=== PATIENT | male | born 2005 | race Caucasian/White ===

== ENCOUNTER 2023-06-10 23:43 | Emergency (ER) | payer SELFPAY ==
[2023-06-10 23:46] VITALS: BP 135/77; PULSE 88; RESP 18; TEMP 36.6; O2SAT 97; BMI 22.0
--- NOTE | 2023-06-11 00:01 | CT_ITS ---
The [address] [address] Patient Name: CAMERON TERESA MRN: [id number] date: 2005 Sex: M Assigned Patient Location: Current Patient Location: .[facility] Accession/Order Number: [id number] Exam Date: 06/11/2023 00:23 Report Date: 06/11/2023 00:42 At the request of: ALAN CAN Procedure: CT head/brain wo con EXAMINATION: CT head/brain wo con HISTORY: head injury headache, nausea, dizziness. COMPARISON: None. TECHNIQUE: CT head without contrast. Dose reduction techniques were achieved by using: automated exposure control and/or adjustment of mA and /or kV according to patient size and/or use of iterative reconstruction technique. FINDINGS: The ventricles and sulci are within normal limits in size and configuration for age. There is no evidence for acute intracranial hemorrhage. There are no foci of abnormal parenchymal attenuation. There is no mass effect or midline shift. There are no abnormal extraaxial fluid collections. CT/CT head/brain wo con IMPRESSION: Negative for acute hemorrhage or acute intracranial process. Electronically authenticated by: DEVANG WESTON Date: 06/11/2023 00:42
--- NOTE | 2023-06-11 00:02 | ED_ITS ---
HPI - Head Injury General Chief complaint: Head Injury Stated complaint: HEAD INJURY Time Seen by Provider: 06/10/23 23:58 Source: patient Mode of arrival: walk-in Limitations: no limitations History of Present Illness HPI Narrative: states he was at work and a door closed striking him on the left eyebrow. complains of mild dizziness and mild nausea. took zofran before coming in and the nausea is improved but not completely resolved. no other injury. No visual complaint Related Data Home Medications Medication Instructions Recorded Confirmed cariprazine 1.5 mg capsule 1.5 mg PO DAILY 06/10/23 06/10/23 (Vraylar) venlafaxine 75 mg capsule,extended 225 mg PO DAILY 06/10/23 06/10/23 release 24 hr (Effexor XR) Allergies Allergy/AdvReac Type Severity Reaction Status Date / Time No Known Drug Allergies Allergy Verified 06/10/23 23:53 Review of Systems ROS Status of ROS 10 or more systems reviewed and unremark able except as noted in history and [facility] Smoking status: Current every day smoker Exam Constitutional Vital Signs, click to edit/add: Last Vital Signs Temp 98 F 06/10/23 23:46 Pulse 88 06/10/23 23:46 Resp 18 06/10/23 23:46 BP 135/77 06/10/23 23:46 Pulse Ox 97 06/10/23 23:46 O2 Del Method Room Air 06/10/23 23:46 Common normals: no apparent distress, average body habitus, oriented x3, no limitations, healthy appearing and alert HENMT Other: minor focal 4mm contusion left eyebrow. no lac Eye Common normals: PERRL, EOMs intact bilaterally and conjunctivae normal Respiratory Common normals: normal respiratory effort, no retractions and no use of accessory muscles Cardio Common normals: regular rate, regular rhythm, S1 normal heart sound and S2 normal heart sound Extremity Common normals: normal to inspection and full ROM Neuro Common normals: oriented x3, CN's II-XII intact bilaterally, moves all extremities and no focal motor deficits Psych Appearance: grossly normal Course Vital Signs Vital signs: Vital Signs Temperature 98 F 06/10/23 23:46 Pulse Rate 88 06/10/23 23:46 Respiratory Rate 18 06/10/23 23:46 Blood Pressure 135/77 06/10/23 23:46 Pulse Oximetry 97 06/10/23 23:46 Oxygen Delivery Method Room Air 06/10/23 23:46 Temperature 98 F 06/10/23 23:46 Pulse Rate 88 06/10/23 23:46 Respiratory Rate 18 06/10/23 23:46 Blood Pressure 135/77 06/10/23 23:46 Pulse Oximetry 97 06/10/23 23:46 Oxygen Delivery Method Room Air 06/10/23 23:46 MDM - Head Injury MDM Narrative Medical decision making narrative: patient presents after he was struck at his left eye brow by a door at work. Complained of nausea for which he took zofran before coming in. Exam with minor contusion left eyebrow. CT brain neg. Patient discharged home in good condition and diagnosed with minor head injury Discharge Plan Discharge Chief Complaint: Head Injury Clinical Impression: Closed head injury Patient Disposition: Home, Self-Care Prescriptions / Home Meds: No Action venlafaxine [Effexor XR] 75 mg capsule,extended release 24hr 225 mg PO DAILY Vraylar 1.5 mg capsule 1.5 mg PO DAILY Instructions: Head Injury (ED) Stand Alone Forms: Portal Instructions Referrals: Nayla Dorsey NP [Primary Care Provider] - 1 week
== END 2023-06-11 01:40 | disposition home or self-care (01) ==
PROVIDERS: Emergency Provider Internal Medicine; PCP Nurse Practitioner Family
DX: S09.8XXA Other specified injuries of head, initial encounter (principal); W20.8XXA Other cause of strike by thrown, projected or falling object, initial encounter; Z79.899 Other long term (current) drug therapy; F17.210 Nicotine dependence, cigarettes, uncomplicated
CPT/HCPCS: 70450; 99284

== ENCOUNTER 2024-01-17 14:51 | Emergency (ER) | payer OTHER, SELFPAY ==
[2024-01-17 14:56] VITALS: BP 156/90; PULSE 90; TEMP 36.9; O2SAT 99; BMI 22.0
--- NOTE | 2024-01-17 15:26 | ED_ITS ---
<Statement entered by Florinda Moreno MD - 01/18/24 06:59> This documentation has been reviewed and approved. HPI HPI - General Adult General Chief complaint: GI Bleed Stated complaint: BLOOD IN STOOL/ ABDOMINAL PAIN Time Seen by Provider: 01/17/24 15:09 Source: patient Mode of arrival: walk-in Limitations: no limitations History of Present Illness HPI narrative: 18-year-old male presents to the emergency department with complaint of bright red rectal bleeding. Had a lot yesterday, not as much today. Describes as bright red. States chronic history of abdominal problems including constipation. States he may be moves his bowels about once a week. Does have some mild, lower abdominal discomfort. Has had 2 bowel movements since yesterday. Denies any diarrhea. Denies any rectal plain. Has had history of hemorrhoid in the past, but states he has not felt like this is because of 1. Denies any abdominal surgeries. Quality:?As above Severity:?Mild Timing:?As above Context: Normal setting and activity? Modifying factors:?none Associated symptoms: As above Related Data Home Medications ?Medication ?Instructions ?Recorded ?Confirmed cariprazine 1.5 mg capsule 1.5 mg PO DAILY 06/10/23 06/10/23 (Vraylar) venlafaxine 75 mg capsule,extended 225 mg PO DAILY 06/10/23 06/10/23 release 24 hr (Effexor XR) Allergies Allergy/AdvReac Type Severity Reaction Status Date / Time No Known Drug Allergies Allergy Verified 01/17/24 14:56 Opioid HPI Opioid Management Most Recent Opioid Data: No Data to Display Review of Systems ROS Constitutional Denies: fever, chills or fatigue Cardiovascular Denies: chest pain, edema or shortness of breath with exertion Respiratory Denies: shortness of breath or cough Gastrointestinal Reports: abdominal pain, constipation (chronic) and blood in stool; Denies: nausea, vomiting, diarrhea or rectal pain Genitourinary Denies: painful urination or urinary frequency Neurological Denies: dizziness Endocrine Denies: fatigue PFSH PFSH Social History Smoking status: Current every day smoker Exam Constitutional Vital Signs, click to edit/add: Last Vital Signs Temp 98.5 F 01/17/24 14:56 Pulse 90 01/17/24 14:56 Resp 18 01/17/24 14:56 BP 156/90 H 01/17/24 14:56 Pulse Ox 99 01/17/24 14:56 O2 Del Method Room Air 01/17/24 14:56 Common normals: no apparent distress, oriented x3 and alert HENMT Common normals: normocephalic, head/scalp atraumatic and external nose normal Head and scalp: normocephalic and atraumatic Nose: external nose normal Respiratory Common normals: normal respiratory effort and clear to auscultation bilaterally Auscultation: clear to auscultation bilaterally Cardio Common normals: regular rate, regular rhythm and no murmurs Rate: regular rate Rhythm: regular rhythm GI Common normals: soft to palpation Inspection: normal to inspection Auscultation: normoactive bowel sounds Palpation: soft and tender (mild, no guarding) Details: LLQ and RLQ; no rebound tenderness present Rectal Exam - Male: visual inspection normal, normal sphincter tone and heme positive stool; no hemorrhoids and no fistula Other: Rectal examination performed under direct supervision of AGUILA Isaacs Extremity Common normals: normal to inspection Neuro Common normals: oriented x3, no focal motor deficits, no sensory deficits noted and gait normal Sensorium/orientation: alert Psych Common normals: thought process normal, cooperative and affect normal Thought process: normal thought process Course Vital Signs Vital signs: Vital Signs Temperature 98.5 F 01/17/24 14:56 Pulse Rate 90 01/17/24 14:56 Respiratory Rate 18 01/17/24 14:56 Blood Pressure 156/90 H 01/17/24 14:56 Pulse Oximetry 99 01/17/24 14:56 Oxygen Delivery Method Room Air 01/17/24 14:56 Temperature 98.5 F 01/17/24 14:56 Pulse Rate 90 01/17/24 14:56 Respiratory Rate 18 01/17/24 14:56 Blood Pressure 156/90 H 01/17/24 14:56 Pulse Oximetry 99 01/17/24 14:56 Oxygen Delivery Method Room Air 01/17/24 14:56 Medical Decision Making [facility] Narrative Medical decision making narrative: This is a pleasant 18-year-old male presents to the emergency department with concern about bright red blood in stool. Onset yesterday. States somewhat improved today. Has had some mild lower abdominal pain. Patient with chronic history of constipation. States he moves his bowels about once a week. On arrival, afebrile, vital signs are stable. Exam, nontoxic, well-appearing patient in no distress. Very slight tenderness to the right and left lower quadrant regions. On chaperoned rectal examination, no visual abnormalities noted including hemorrhoids. No gross bleeding coming from the rectum. No anal fissure. No appreciable stool was on glove just mucus, tested positive for blood. Labs reveal no leukocytosis, anemia, thrombocytopenia, electrolyte imbalance, renal impairment. Glucose 104. LFTs were a little elevated at 151 and 87. Alk phosphatase 105. Bilirubin was 0.5. No prior records in EMR Favor nonspecific rectal bleeding, nonspecific abdominal pain, chronic constipation Acute abdomen less likely based on history and physical examination Anemia less likely based on laboratory testing On reevaluation, patient states he is feeling better. Denies pain. Discussed with patient results, plan, and disposition. He is agreeable with plan. Disposition ? The patient was discharged. Plan: Patient will be discharged to home. Condition at time of disposition: stable He was given referral to gastroenterology as patient may need colonoscopy Advised to follow up with primary provider. Advised to return for any worsening and/or development of new, concerning signs or symptoms PLEASE NOTE: Portions of the medical record may have been produced using electronic web applications developer and may contain errors with respect to translation of words which may not have been identified prior to finalization of the chart. Lab Data Labs: Lab Results 01/17/24 01/17/24 Range/Units 15:45 16:44 WBC 5.7 (4.0-11.0) 10^3/uL RBC 5.47 (4.70-6.10) 10^6/uL Hgb 16.1 (14.0-18.0) g/dL Hct 49.3 (42.0-54.0) % MCV 90.1 (80.0-94.0) fL MCH 29.4 (25.9-34.0) pg MCHC 32.7 (29.9-35.2) g/dL RDW 12.2 (11.0-15.0) % Plt Count 207 (150-450) 10^3/uL MPV 10.7 (9.5-13.5) fL Neut % (Auto) 59.2 (43.0-75.0) % Lymph % (Auto) 28.0 (20.5-60.0) % [place] % (Auto) 10.2 (1.7-12.0) % Eos % (Auto) 1.8 (0.9-7.0) % Baso % (Auto) 0.4 (0.2-2.0) % Neut # (Auto) 3.4 (1.4-6.5) 10^3/uL Lymph # (Auto) 1.6 (1.2-3.8) 10^3/uL [place] # (Auto) 0.6 (0.3-0.8) 10^3/uL Eos # (Auto) 0.1 (0.0-0.7) 10^3/uL Baso # (Auto) 0.0 (0.0-0.1) 10^3/uL Abs Immat Gran (auto) 0.02 (0.00-0.03) 10^3/uL Imm/Tot Granulo (auto) 0.4 (0.0-0.5) % Sodium 144 (136-145) mmol/L Potassium 3.9 (3.5-5.1) mmol/L Chloride 104 (98-107) mmol/L Carbon Dioxide 31.2 (21.0-32.0) mmol/L Anion Gap 12.7 BUN 19.0 H (7.0-18.0) mg/dL Creatinine 1.23 (0.70-1.30) mg/dL Est GFR ( Amer) >60 (>=60) Est GFR (Non-Af Amer) >60 (>=60) BUN/Creatinine Ratio 15.4 Glucose 104 (74-106) mg/dL Calcium 9.3 (8.5-10.1) mg/dL Total Bilirubin 0.5 (0.2-1.0) mg/dL AST 151 H (15-37) U/L ALT 87 H (16-63) U/L Alkaline Phosphatase 105 (46-116) U/L Total Protein 7.8 (6.4-8.2) g/dL Albumin 4.4 (3.4-5.0) g/dL Globulin 3.4 g/dL Albumin/Globulin Ratio 1.3 Stool Occult Blood Positive A Discharge Plan Discharge Stand Alone Forms: Portal Instructions Chief Complaint: GI Bleed Clinical Impression: Bright red rectal bleeding, Nonspecific abdominal pain Patient Disposition: Home, Self-Care Time of Disposition Decision: 17:24 Condition: Good Mode of Transportation: Private Vehicle Prescriptions / Home Meds: No Action venlafaxine [Effexor XR] 75 mg capsule,extended release 24hr 225 mg PO DAILY Vraylar 1.5 mg capsule 1.5 mg PO DAILY Print Language: Chinese Instructions: Rectal Bleeding (ED) Referrals: Nate Taylor [Other] - 1 week OFELIA RUBIO [Physician] - 01/20/24 ([address]) Rik BOO [Physician] - 1 week Discharge Date/Time: 01/17/24 17:37
[2024-01-17] MEDS: 0.9 % SODIUM CHLORIDE 1,000 ML 999 ML IV (15:46)
[2024-01-17 16:01] LABS: Basophils Percent Auto 0.4 % (0.2-2.0); Eosinophils Absolute Auto 0.1 10^3/uL (0.0-0.7); Eosinophils Percent Auto 1.8 % (0.9-7.0); Hematocrit 49.3 % (42.0-54.0); Hemoglobin 16.1 g/dL (14.0-18.0); Immature Granulocytes Abs Auto 0.02 10^3/uL (0.00-0.03); Immature Granulocytes Pct Auto 0.4 % (0.0-0.5); Lymphocytes Absolute Auto 1.6 10^3/uL (1.2-3.8); Mean Corpuscular HGB Conc 32.7 g/dL (29.9-35.2); Mean Corpuscular Hemoglobin 29.4 pg (25.9-34.0); Mean Corpuscular Volume 90.1 fL (80.0-94.0); Mean Platelet Volume 10.7 fL (9.5-13.5); Monocytes Absolute Auto 0.6 10^3/uL (0.3-0.8); Monocytes Percent Auto 10.2 % (1.7-12.0); Neutrophils Absolute Auto 3.4 10^3/uL (1.4-6.5); Neutrophils Percent Auto 59.2 % (43.0-75.0); Platelet Count 207 10^3/uL (150-450); Red Blood Count 5.47 10^6/uL (4.70-6.10); Red Cell Distribution Width 12.2 % (11.0-15.0); White Blood Count 5.7 10^3/uL (4.0-11.0)
[2024-01-17 16:16] LABS: Alanine Aminotransferase 87 U/L (16-63); Albumin Globulin Ratio 1.3; Albumin Level 4.4 g/dL (3.4-5.0); Alkaline Phosphatase 105 U/L (46-116); Anion Gap 12.7; Aspartate Amino Transferase 151 U/L (15-37); BUN Creatinine Ratio 15.4; Bilirubin Total 0.5 mg/dL (0.2-1.0); Calcium 9.3 mg/dL (8.5-10.1); Carbon Dioxide 31.2 mmol/L (21.0-32.0); Chloride 104 mmol/L (98-107); Estimated GFR (African America >60 (>=60); Estimated GFR (Non-African Ame >60 (>=60); Globulin 3.4 g/dL; Glucose 104 mg/dL (74-106); Potassium 3.9 mmol/L (3.5-5.1); Sodium 144 mmol/L (136-145); Total Protein 7.8 g/dL (6.4-8.2)
[2024-01-17 17:08] LABS: Internal Control Within Normal Limits; Occult Blood Positive
== END 2024-01-17 17:37 | disposition home or self-care (01) ==
PROVIDERS: Physician Assistant; Emergency Provider Emergency Medicine; PCP Nurse Practitioner Family
DX: K62.5 Hemorrhage of anus and rectum (principal); R10.9 Unspecified abdominal pain; F17.200 Nicotine dependence, unspecified, uncomplicated
CPT/HCPCS: 36415; 80053; 85025; 99284; G0328

== ENCOUNTER 2024-04-03 18:24 | Emergency (ER) | payer OTHER, SELFPAY ==
[2024-04-03 18:33] VITALS: BP 174/96; PULSE 107; TEMP 37.2; O2SAT 97; BMI 24.2
--- OUTSIDE RECORDS SUMMARY | 2024-04-03 18:43 | XMS_ITS | CCD ---
Author Organization [facility] CliniSyde Care Team Providers Care Site Identification Specialist Name Role Phone Jaxson Starks Primary Care Provider Performer PROVIDER, UNKNOWN Attending Unavailable PATIENT, SELF Referring Unavailable PROVIDER, UNKNOWN Admitting Unavailable PROVIDER, UNKNOWN Admitting Unavailable PROVIDER, UNKNOWN Attending Unavailable PATIENT, SELF Referring Unavailable KOBE, RICKI Attending Unavailable KOBE, RICKI Primary Care Unavailable KOBE, RICKI Admitting Unavailable APOLINAR, EDWARD Primary Care Unavailable APOLINAR, EDWARD Admitting Unavailable KOBE, RICKI Consulting Unavailable APOLINAR, EDWARD Attending Unavailable PROVIDER, UNKNOWN Consulting Unavailable Jaxson Starks Unavailable Unavailable Marni Nolasco Unavailable Unava ilable Bess Muniz Unavailable Unavailable Linnea Zapata Unavailable Unavailable Unavailable PCP, Other Primary Care Physician PCP, OTHER Primary Care Unavailable Dr. CLARI OWEN Attending Unavailable PCP, OTHER Primary Care Unavailable Dr. Deo Hamm Attending Unavailable NO FAMILY, PHYSICIAN Primary Care Provider Unava ilable Laury, [facility]- Margarita Valera Emergency Provider OSEI Jarrett Attending Provider ALECIA Roach Emergency Provider JULIA Ornelas Emergency Provider DO Saqib Brantley Admit Provider DO Saqib Brantley Attending Provider [phone] MD Arnel Carlisle Other Provider ALECIA Shahid Other Provider [phone] MD Chandler Flood Other Provider MD Nicholas Frias Other Provider AGUILA Castro Other Provider Unavailable DO Ginger Cid Other Provider MD Regine Bingham Other Provider MD Kayli Iglesia Norton Other Provider MD Kellee Lambert Other Provider MD Ernie Jimenez Other Provider ALECIA Ramos Other Provider MD Elizabeth Serrato Other Provider MD Arnel Ibanez Najesteph Other Provider MD Lizette Vega Other Provider Shamika [facility] Sherrie Jolly Other Provider MD Soledad Perez Other Provider Benny, Ms. Linnea Gifford Referring Unavaila ble Iliano, Ms. Linnearoger Gifford Attending Unavaila ble Iliano, Ms. Linnea Ирина Primary Care Unavaila ble Iliano, Ms. Linnea Ирина Primary Care Unavaila ble Ana Laura Lacey Unavailable ALECIA Lacey Attending Provider Nazario Fine Unavailable Nayla Dorsey Unavailable NO FAMILY, PHYSICIAN Primary Care Provider Unava ALECIA Holder Emergency Provider NONE, XXXX Primary Care Physician Unavailab JOHN Copeland Attending Unavailable JOHN GILES Admitting Unavailable Kenroy Jackson Attending Unavailable JOHN GILES Attending Unavailable NO FAMILY, PHYSICIAN Primary Care Provider Unava ALECIA Holder Emergency Provider ALECIA Dorsey Attending Provider ALECIA Dorsey Primary Care Provider MD Nazario Shaw Jr Emergency Provider NO FAMILY, PHYSICIAN Primary Care Unavailable Enzo Roach Attending Unavailable Enzo Roach Admitting Unavailable Nayla Dorsey Admitting Unavailable NO FAMILY, PHYSICIAN Primary Care Unavailable Nayla Dorsey Attending Unavailable NO FAMILY, PHYSICIAN Primary Care Unavailable Ana Laura Lacey Attending Unavailable Ana Laura Lacey Admitting Unavailable Nayla Dorsey Primary Care Unavailable Nazario Shaw Jr Attending Unavailable Nazario Shaw Jr Admitting Unavailable Allergies Allergy Classification Reported Allergen(s) Allergy Type Date of Onset Reaction(s) Facility NEGATED: Highlighted row has been ruled out! (3 sources) natural latex rubber; Translations: [LATEX, NATURAL RUBBER] Drug allergy (disorder) [facility] NEGATED: Highlighted row has been ruled out! (3 sources) No IV Contrast Allergy.; Translations: [IV Dye, Iodine Containing] Drug allergy (disorder) S Medications Current Medications Medication Drug Class(es) Dates Sig (Normalized) Sig (Original) cariprazine 3 mg oral capsule (5 sources) Atypical Antipsychotic Start: 09-22-2023 take 1 capsule by mouth once daily Cariprazine (Vraylar) 3 mg capsule Active 3 MG PO Daily September 22, 2023 12:00am cephalexin 500 mg oral capsule (2 sources) Cephalosporin Antibacterial Start: 02-06-2023 take 1 capsule by mouth every twelve hours Cephalexin 500 MG 1 capsule Orally twice a day for 10 Jan, Active diphenhydrAMINE hydrochloride 50 mg oral tablet (1 source) Histamine-1 Receptor Antagonist Start: 03-20-2024 take 1 tablet by mouth once daily at bedtime Diphenhydramine Hcl (Benadryl Allergy) 50 mg tablet Active 50 MG PO Daily at bedtime March 20, 2024 12:00am Docusate (7 sources) Start: 03-20-2024 docusate sodium (Stool Softener) Active PO March 20, 2024 12:00am Start: 11-05-2021 take 2 tablets by [facility] every six hours as needed for constipation, then take 1 tablet by mouth once daily as needed for constipation Dulcolax Stool Softener 100 MG Oral Capsule TAKE 2 TABLETS NOW AND REPEAT IN 6 HOURS, THEN 1 TABLET DAILY NEEDED FOR CONSTIPATION Quantity: 1 Refills: 0 Ordered: 05-Nov-2021 Linnea Olsen Start : 05-Nov-2021 Active Start: 04-17-2021 Docusate Sodiu m 100 MG Oral Capsule Quantity: 56 Refills: 0 Ordered: 17-Apr-2021 DO Start : 17-Apr-2021 Active lamoTRIgine 150 mg oral tablet (1 source) Mood Stabilizer, Anti-epileptic Agent Start: 03-20-2024 take 1 tablet by mouth once daily Lamotrigine (Lamictal) 150 mg tablet Active 150 MG PO Daily March 20, 2024 12:00am melatonin 10 mg oral tablet (4 sources) Start: 03-20-2024 take 10 mg by mouth once daily at bedtime Melatonin Active 10 MG PO Daily at bedtime March 20, 2024 12:00am Start: 04-27-2021 Melatonin TR 1 0 MG Oral Tablet Extended Release Quantity: 28 Refills: 0 Ordered: 27-Apr-2021 DO Start : 27-Apr-2021 Active methylPREDNISolone 4 mg oral tablet (9 sources) Corticosteroid Start: 02-13-2023 methylPREDNISolone 4 MG as directed Orally take as directed for 6 days Jan, Active Multivitamin (Daily Multi-Vitamin) tablet (1 source) Start: 03-20-2024 take 1 tablet by mouth once daily Multivitamin (Daily Multi-Vitamin) tablet Active 1 TAB PO Daily March 20, 2024 12:00am nystatin [id number] unt/ml oral suspension (2 sources) Polyene Antifungal Start: 02-10-2023 take 4 mL by mouth four times daily Nystatin [id number] UNIT/ML 4 ml swish and swallow Mouth/Throat Four times a day for 10 days Jan, Active predniSONE 20 mg oral tablet (3 sources) Start: 03-07-2023 End: 03-12-2023 take 2 tablets by mouth once daily predniSONE 20 mg Tab 40 mg = 2 tab(s), Oral, Daily, X 5 day(s), # 10 tab(s), Refills(s) 0, Pharmacy: [facility], 198, cm, 03/07/23 16:53:00 EDT, Height/Length Dosing, 87.2, kg, 03/07/23 16:53:00 EDT, Weight Dosing Start Date: 03/07/23 Stop Date: 03/12/23 Status: Ordered Start: 02-06-2023 take 1 tablet by brenna th every twelve hours prednisone 20 MG 1 tablet Orally BID for 5 Jan, Active psyllium husk (Daily Fiber) (1 source) Start: 03-20-2024 psyllium husk (Daily Fiber) Active PO March 20, 2024 12:00am venlafaxine 75 mg oral tablet (20 sources) Serotonin and Norepinephrine Reuptake Inhibitor Start: 03-20-2024 take 75 mg by mouth once daily Venlafaxine Active 75 MG PO Daily March 20, 2024 12:00am Start: 11-17-2023 End: 03-20-2024 take 1 capsule by mouth once daily Venlafaxine Discontinued 0 .ROUTE .COMPLEX 90 November 17, 2023 1:58pm March 20, 2024 12:05pm Take 1 capsule by mouth once daily Start: 10-06-2023 End: 11-17-2023 take 37.5 mg by mouth once daily Venlafaxine Discontinued 37.5 MG PO Daily October 06, 2023 12:00am November 17, 2023 1:58pm Start: 09-21-2023 End: 10-06-2023 Venlafaxine (Effexor Xr) 75 mg capsule,extended release 24hr Discontinued 75 MG PO Daily September 21, 2023 12:00am October 06, 2023 11:21am in addition to 150mg to equal 225mg Start: 03-07-2023 Effexor XR Ora l, Daily, Refills(s) 0 Start Date: 03/07/23 Status: Ordered Start: 10-26-2022 End: 09-21-2023 take 1 capsule by mouth once daily Venlafaxine (Effexor Xr) 150 mg capsule,extended release 24hr Discontinued 225 MG PO Daily February 27, 2023 11:03am September 21, 2023 3:29pm Start: 09-27-2022 End: 10-13-2022 take 1 capsule by mouth once daily in the morning Venlafaxine (Effexor Xr) 75 mg Capsule,Extended Release 24hr Discontinued 75 MG PO Every morning September 27, 2022 12:00am October 13, 2022 4:03pm Start: 11-03-2021 take 1 capsule by mo [facility] every twenty-four hours Venlafaxine HCl ER 150 MG Oral Capsule Extended Release 24 Hour Quantity: 30 Refills: 0 Ordered: 03-Nov-2021 DO Start : 03-Nov-2021 Active Effexor Active Completed/Discontinued Medications Medication Drug Class(es) Dates Sig (Normalized) Sig (Original) acetaminophen 325 mg oral tablet (9 sources) Start: 10-22-2022 End: 10-23-2022 Acetaminophen (Tylenol) 325 mg Tablet Discontinued 325 MG PO Q65H October 22, 2022 12:00am October 23, 2022 12:56pm calcium polycarbophil 625 mg oral tablet (3 sources) Start: 04-15-2021 Fiber-Lax 625 MG Oral Tablet Quantity: 56 Refills: 0 Ordered: 15-Apr-2021 DO Start : 15-Apr-2021 Active cyclobenzaprine hydrochloride 10 mg oral tablet (17 sources) Muscle Relaxant Start: 02-27-2023 End: 03-20-2024 take 10 mg by mouth three times daily Cyclobenzaprine Discontinued 10 MG PO Three times daily February 27, 2023 12:00am March 20, 2024 12:05pm Start: 02-13-2023 take 1 tablet by [facility] twice daily as needed Cyclobenzaprine HCl 10 MG 1 tablet as needed Orally BID PRN for 10 days Jan, Active Start: 02-13-2023 take 1 tablet by [facility] every eight hours as needed Cyclobenzaprine HCl 10 MG 1 tablet as needed Orally every 8 hours for 5 days Jan, Active DULoxetine 20 mg delayed release oral capsule (17 sources) Serotonin and Norepinephrine Reuptake Inhibitor Start: 10-21-2022 End: 10-26-2022 take 20 mg by mouth once daily Duloxetine Discontinued 20 MG PO Daily October 23, 2022 12:00am October 26, 2022 11:22am hydrOXYzine pamoate 50 mg oral capsule (3 sources) Antihistamine Start: 11-03-2021 hydrOXYzine Pamoate 50 MG Oral Capsule Quantity: 60 Refills: 0 Ordered: 03-Nov-2021 DO Start : 03-Nov-2021 Active ibuprofen 800 mg oral tablet (7 sources) Nonsteroidal Anti-inflammatory Drug Start: 02-27-2023 End: 09-21-2023 take 800 mg by mouth every eight hours Ibuprofen Discontinued 800 MG PO Q8H February 27, 2023 11:14am September 21, 2023 3:28pm ketorolac tromethamine 10 mg oral tablet (19 sources) Nonsteroidal Anti-inflammatory Drug, Cyclooxygenase Inhibitor Start: 09-21-2023 End: 03-20-2024 take 10 mg by mouth twice daily Ketorolac Discontinued 10 MG PO Twice daily September 21, 2023 12:00am March 20, 2024 12:05pm maximum total duration of 5 days from all oral, intranasal, or parenteral formulations Start: 03-16-2023 take 1 tablet by brenna th twice daily as needed Toradol 10mg 1 tab prn orally bid for 14 days Feb, Active Start: 02-27-2023 End: 09-21-2023 take 10 mg by mouth three times daily Ketorolac Discontinued 10 MG PO Three times daily 10 February 27, 2023 12:00am September 21, 2023 3:28pm LORazepam 1 mg oral tablet (6 sources) Benzodiazepine Start: 10-31-2023 End: 03-20-2024 take 1 mg by mouth once daily Lorazepam Discontinued 1 MG PO Daily 15 November 09, 2023 10:55am March 20, 2024 12:05pm lurasidone hydrochloride 40 mg oral tablet (20 sources) Atypical Antipsychotic Start: 09-21-2023 End: 09-22-2023 take 40 mg by mouth once daily Lurasidone Discontinued 40 MG PO Daily September 21, 2023 12:00am September 22, 2023 2:31pm Start: 03-07-2023 Latuda Oral, D aily, Refills(s) 0 Start Date: 03/07/23 Status: Ordered Start: 02-27-2023 End: 09-21-2023 Lurasidone Discontinued MG T ABLET February 27, 2023 12:00am September 21, 2023 3:28pm Start: 02-27-2023 Lurasidone Act ramakrishna MG TABLET February 26, 2023 11:00pm Start: 02-27-2023 Lurasidone Act ramakrishna MG TABLET February 27, 2023 12:00am take 1 tablet by brenna th every twenty-four hours Latuda 40 MG 1 tablet in the evening with food Orally Once a day Active take 1 tablet by brenna th every twenty-four hours Latuda 20 MG 1 tablet in the evening with food Orally Once a day Active magnesium citrate 58.2 mg/ml oral solution (3 sources) Start: 11-05-2021 Magnesium Citrate 1.745 GM/30ML Oral Solution DRINK 1/2 BOTTLE, THEN 4 HOURS LATER FINISH BOTTLE Quantity: 1 Refills: 0 Ordered: 05-Nov-2021 Linnea Olsen Start : 05-Nov-2021 Active naproxen 500 mg oral tablet (17 sources) Nonsteroidal Anti-inflammatory Drug Start: 10-22-2022 End: 10-26-2022 take 500 mg by mouth twice daily at mealtime Naproxen Discontinued 500 MG PO Twice daily with meals October 23, 2022 12:00am October 26, 2022 11:22am 24 hr nicotine 0.875 mg/hr transdermal system (8 sources) Cholinergic Nicotinic Agonist Start: 10-26-2022 End: 02-27-2023 Nicotine Discontinued 1 EACH TRANSDERML Daily October 26, 2022 12:00am February 27, 2023 11:04am ofloxacin 3 mg/ml otic solution (10 sources) Quinolone Antimicrobial Start: 10-13-2022 End: 10-21-2022 Ofloxacin Discontinued 5 DROPS EAR-RIGHT Twice daily 10 October 13, 2022 12:00am October 21, 2022 11:01pm traZODone hydrochloride 50 mg oral tablet (8 sources) Serotonin Reuptake Inhibitor Start: 10-26-2022 End: 02-27-2023 take 50 mg by mouth once daily at bedtime Trazodone Discontinued 50 MG PO Daily at bedtime October 26, 2022 12:00am February 27, 2023 11:04am Problems Active Problems Problem Classification Problem Date Documented Da te Episodic/Chronic Abdominal pain (12 sources) Abdominal pain; Translations: [Bilateral pain of inguinal region] Onset: 3 Resolved: 6 02-26-2014 Episodic Anxiety disorders (20 sources) Anxiety disorder; Translations: [Anxiety disorder, unspecified] Onset: 1 04-10-2020 Chronic Complications of surgical procedures or medical care (12 sources) Drug therapy finding; Translations: [Unspecified adverse effect of drug or medicament, initial encounter] 09-27-2022 Episodic Conditions associated with dizziness or vertigo (11 sources) Dizziness; Translations: [Dizziness and giddiness] 09-27-2022 Episodic Disorders of teeth and jaw (20 sources) Arthralgia of temporomandibular joint; Translations: [Arthralgia of temporomandibular joint, unspecified side] 02-27-2023 Episodic Esophageal disorders (1 source) Gastroesophageal reflux disease; Translations: [Gastro-esophageal reflux disease without esophagitis] 03-20-2024 Chronic Gastrointestinal hemorrhage (2 sources) Melena; Translations: [Rectal hemorrhage] Onset: 3 03-20-2024 Episodic Headache; including migraine (1 source) Headache; including migraine; Translations: [Headache, unspecified] Onset: 3 Lymphadenitis (1 source) Enlarged lymph nodes, unspecified Episodic Mood disorders (20 sources) Major depressive disorder; Translations: [Major depressive disorder, recurrent, mild] Onset: 1 04-10-2020 Chronic Nausea and vomiting (1 source) Nausea; Translations: [Nausea] Onset: 3 Episodic Other connective tissue disease (1 source) Musculoskeletal symptom; Translations: [Other symptoms and signs involving the musculoskeletal system] Onset: 3 Episodic Other ear and sense organ disorders (10 sources) Otitis externa; Translations: [Unspecified otitis externa, unspecified ear] 10-13-2022 Chronic Other gastrointestinal disorders (3 sources) Chronic constipation; Translations: [Constipation, unspecified] Episodic Other gastrointestinal disorders (1 source) Other constipation; Translations: [Other constipation] Onset: 3 Episodic Other hereditary and degenerative nervous system conditions (3 sources) Restless legs; Translations: [Restless legs syndrome] 10-06-2023 Chronic Other hereditary and degenerative nervous system conditions (2 sources) Restless legs syndrome; Translations: [Restless legs syndrome (RLS)] 10-06-2023 Chronic Other nutritional; endocrine; and metabolic disorders (2 sources) Excessive thirst; Translations: [Polydipsia] Episodic Other nutritional; endocrine; and metabolic disorders (1 source) Polydipsia Episodic Other screening for suspected conditions (not mental disorders or infectious disease) (10 sources) Electrocardiogram abnormal; Translations: [Abnormal electrocardiogram [ECG] [EKG]] 10-23-2022 Episodic Other upper respiratory disease (1 source) Other specified disorders of nose and nasal sinuses Episodic Poisoning by other medications and drugs (16 sources) Intentional drug overdose; Translations: [Intentional Drug Overdose] 07-02-2019 Episodic Poisoning by psychotropic agents (3 sources) Benzodiazepine overdose; Translations: [Benzodiazepine Overdose] 03-26-2020 Episodic Residual codes; unclassified (1 source) Insomnia; Translations: [Insomnia, unspecified] 03-20-2024 Episodic Residual codes; unclassified (1 source) Insomnia, unspecified; Translations: [Insomnia, unspecified] 03-20-2024 Episodic Screening and history of mental health and substance abuse codes (1 source) Personal history of other mental and behavioral disorders; Translations: [Personal history of other mental and behavioral disorders] Onset: 4 Episodic Sprains and strains (1 source) Injury of muscle and tendon at neck level; Translations: [Strain of muscle, fascia and tendon at neck level, initial encounter] Onset: 3 Episodic Substance-related disorders (20 sources) Polysubstance abuse ; 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] Onset: 2 03-27-2020 Chronic Suicide and intentional self-inflicted injury (3 sources) Drug overdose - suicide; Translations: [Drug Overdose - Suicide] 03-26-2020 Unclassified (1 source) Contact with and (suspected) exposure to COVID-19; Translations: [Contact with and (suspected) exposure to COVID-19] Onset: 2 Unclassified (1 source) Personal history of suicidal behavior; Translations: [Personal history of suicidal behavior] Onset: 2 Unclassified (1 source) Poisoning by fentanyl or fentanyl analogs, accidental (unintentional), initial encounter; Translations: [Poisoning by fentanyl or fentanyl analogs, accidental (unintentional), initial encounter] Onset: 4 Past or Other Problems Problem Classification Problem Date Documented Da te Episodic/Chronic Inflammation; infection of eye (except that caused by tuberculosis or sexually transmitteddisease) (4 sources) External hordeolum; Translations: [Hordeolum externum] Resolved: 2 Episodic Other gastrointestinal disorders (4 sources) H/O: gastrointestinal disease; Translations: [Personal history of other diseases of digestive system] Resolved: 6 Episodic Other lower respiratory disease (4 sources) H/O: respiratory disease; Translations: [Personal history of other diseases of respiratory system] Resolved: 6 Episodic Other lower respiratory disease (4 sources) Dyspnea on exertion; Translations: [Other respiratory abnormalities] Resolved: 6 Episodic Other nutritional; endocrine; and metabolic disorders (1 source) Polydipsia; Translations: [Polydipsia] Onset: 3 Episodic Other upper respiratory infections (6 sources) Sore throat symptom; Translations: [Acute pharyngitis] Onset: 3 Resolved: 6 Episodic NEGATED: Highlighted row has not occurred!Residual codes; unclassified (1 source) Disease Episodic Results Test Name Value Interpretation Reference Range Facility Basophils Auto (Bld) [#/Vol] on 01-17-2024 Basophils (Bld) [#/Vol] 0.0 10 3/uL 0.0-0.1 [facility] Basophils/100 WBC Auto (Bld) on 01-17-2024 Basophils/100 WBC (Bld) 0.4 % 0.2-2.0 [facility] Eosinophils/100 WBC Auto (Bl d)on 01-17-2024 Eosinophils/100 WBC (Bld) 1.8 % 0.9-7.0 [facility] Erythrocyte distribution wid th Auto (RBC) [Ratio]on 01-17-2024 Erythrocyte distribution width (RBC) [Ratio] 12.2 % 11.0-15.0 [facility] Estimated glomerular filtrat ion rate (GFR) non- Americanon 01-17-2024 GFR/1.73 sq M.predicted among non-blacks MDRD (S/P/Bld) [Vol rate/Area] mL/min/{1.73_m2} >=60 [facility] Globulin Calc (S) [Mass/Vol] on 01-17-2024 Globulin (S) [Mass/Vol] 3.4 g/dL [facility] Hematocrit Auto (Bld) [Volum e fraction]on 01-17-2024 Hematocrit (Bld) [Volume fraction] 49.3 % 42.0-54.0 [facility] Hemoglobin [Mass/volume] in Bloodon 01-17-2024 Hemoglobin (Bld) [Mass/Vol] 16.1 g/dL 14.0-18.0 [facility] Hemoglobin.gastrointestinal [Presence] in Stoolon 01-17-2024 Hemoglobin.gastrointest inal Ql (Stl) Positive Abnormal [facility] Laboratory - Chemistry and C hemistry - challengeon 01-17-2024 Albumin [Mass/Vol] 4.4 g/dL 3.4-5.0 [facility] ALP [Catalytic activity/Vol] 105 U/L 46-116 [facility] ALT [Catalytic activity/Vol] 87 U/L High 16-63 [facility] AST [Catalytic activity/Vol] 151 U/L High 15-37 [facility] Bilirubin [Mass/Vol] 0.5 mg/dL 0.2-1.0 [facility] Calcium [Mass/Vol] 9.3 mg/dL 8.5-10.1 [facility] Chloride [Moles/Vol] 104 mmol/L 98-107 [facility] CO2 [Moles/Vol] 31.2 mmol/L 21.0-32.0 [facility] Creatinine [Mass/Vol] 1.23 mg/dL 0.70-1.30 [facility] GFR/1.73 sq M.predicted MDRD (S/P/Bld) [Vol rate/Area] mL/min/{1.73_m2} >=60 [facility] Glucose [Mass/Vol] 104 mg/dL 74-106 [facility] Potassium [Moles/Vol] 3.9 mmol/L 3.5-5.1 [facility] Protein [Mass/Vol] 7.8 g/dL 6.4-8.2 [facility] Sodium [Moles/Vol] 144 mmol/L 136-145 [facility] Urea nitrogen [Mass/Vol] 19.0 mg/dL High 7.0-18.0 [facility] Urea nitrogen/Creatinine [Mass ratio] 15.4 mg/mg [facility] Laboratory - Hematology and Cell countson 01-17-2024 Immature granulocytes/100 WBC (Bld) 0.4 % 0.0-0.5 [facility] Leukocytes [#/volume] correc jayleen for nucleated erythrocytes in Blood by Automated counon 01-17-2024 WBC corrected for nucl RBC Auto (Bld) [#/Vol] 5.7 10 3/uL 4.0-11.0 [facility] Lymphocytes Auto (Bld) [#/Vo l]on 01-17-2024 Lymphocytes (Bld) [#/Vol] 1.6 10 3/uL 1.2-3.8 [facility] Lymphocytes/100 WBC Auto (Bl d)on 01-17-2024 Lymphocytes/100 WBC (Bld) 28.0 % 20.5-60.0 [facility] MCH Auto (RBC) [Entitic mass ]on 01-17-2024 MCH (RBC) [Entitic mass] 29.4 pg 25.9-34.0 [facility] MCHC Auto (RBC) [Mass/Vol]on 01-17-2024 MCHC (RBC) [Mass/Vol] 32.7 g/dL 29.9-35.2 [facility] MCV Auto (RBC) [Entitic vol] on 01-17-2024 MCV (RBC) [Entitic vol] 90.1 fL 80.0-94.0 [facility] Monocytes Auto (Bld) [#/Vol] on 01-17-2024 Monocytes (Bld) [#/Vol] 0.6 10 3/uL 0.3-0.8 [facility] Monocytes/100 WBC Auto (Bld) on 01-17-2024 Monocytes/100 WBC (Bld) 10.2 % 1.7-12.0 [facility] Neutrophils Auto (Bld) [#/Vo l]on 01-17-2024 Neutrophils (Bld) [#/Vol] 3.4 10 3/uL 1.4-6.5 [facility] Neutrophils/100 WBC Auto (Bl d)on 01-17-2024 Neutrophils/100 WBC (Bld) 59.2 % 43.0-75.0 [facility] No Panel Informationon 01-16 Eosinophils # (Auto) 0.1 10 3/uL 0.0-0.7 [facility] Immature Granulocyte # (Auto) 0.02 10 3/uL 0.00-0.03 [facility] Platelet mean volume Auto (B ld) [Entitic vol]on 01-17-2024 Platelet mean volume (Bld) [Entitic vol] 10.7 fL 9.5-13.5 [facility] Platelets Auto (Bld) [#/Vol] on 01-17-2024 Platelets (Bld) [#/Vol] 207 10 3/uL 150-450 [facility] RBC Auto (Bld) [#/Vol]on RBC (Bld) [#/Vol] 5.47 10 6/uL 4.70-6.10 [facility] Serum or plasma albumin/glob ulin mass ratioon 01-17-2024 Albumin/Globulin [Mass ratio] 1.3 {ratio} [facility] Serum or plasma anion gap de terminationon 01-17-2024 Anion gap [Moles/Vol] 12.7 mmol/L [facility] ECG 12 lead ECGon 11-14-2023 ECG 12 lead ECG [facility] [place] [address] Electrocardiograph Report Signed Patient: Cameron Teresa MR#: [id number] : 2005 Acct:[id number] Age/Sex: 18 / M ADM Date: 11/14/23 Loc: ER Room: Type: [facility] ER Attending Dr: Ordering Provider: Nazario Shaw Jr, MD Date of Service: 11/14/23 ECG/ECG 12 lead ECG: od Copies to: Test Reason : Blood Pressure : 141/078 mmHG Vent. Rate : 091 BPM Atrial Rate : 091 BPM P-R Int : 154 ms QRS Dur : 096 ms QT Int : 344 ms P-R-T Axes : 066 098 069 degrees QTc Int : 423 ms Normal sinus rhythm Rightward axis Borderline ECG Confirmed by Sophie Crandall ([id number]) on 11/15/2023 4:41:42 PM Referred By: Electronically Signed By:Sophie Crandall Transcribed By: MUS Signed By Sophie Crandall MD 4 1641 Normal [facility] XR chest 1V portableon 11-13 XR chest 1V portable [facility] Main [place] [address] [id number] XRay Report Signed Patient: Cameron Teresa MR#: [id number] : 2005 Acct:[id number] Age/Sex: 18 / M ADM Date: 11/14/23 Loc: ER Room: Type: [facility] ER Attending Dr: Copies to: Nazario Shaw Jr, MD Ordering Provider: Nazario Shaw Jr, MD Date of Service: 11/14/23 XR/XR chest 1V portable: Overdose SINGLE VIEW CHEST CLINICAL HISTORY: Overdose. COMPARISON: None FINDINGS: Heart normal in size. Lungs are clear. No free air. XR/XR chest 1V portable IMPRESSION: NO ACUTE FINDINGS Impression dictated by: Azeem Sanchez Jr., D.OJorge11/14/2023 9:53 AM Dictation Location: [facility]12 Transcribed By: [facility] 11/14/23 0953 Dictated By: Azeem Sanchez Jr, DO 11/14/23 0953 Signed By: 11/14/23 0953 Normal [facility] Alanine aminotransferase [En zymatic activity/volume] in Serum or PlasmaOrdered By: Nayla Dorsey on 05-17-2023 ALT [Catalytic activity/Vol] 19 U/L Normal 7-52 [facility] Comment on above: Order Comment: Reaso n for Exam Polydipsia Performed By: #### C MP #### [address] Albumin [Mass/volume] in Ser um or Plasma by Bromocresol green (BCG) dye binding methoOrdered By: Nayla Dorsey on 05-17-2023 Albumin BCG dye [Mass/Vol] 5.0 g/dL 3.5-5.7 [facility] Alkaline phosphatase [Enzyma tic activity/volume] in Serum or PlasmaOrdered By: Nayla Dorsey on 05-17-2023 ALP [Catalytic activity/Vol] 85 U/L Normal 34-104 [facility] Comment on above: Order Comment: Reaso n for Exam Polydipsia Result Comment: PERF ORMED BY: [place] [address] PATHOLOGIST LEAD INFRASTRUCTURE ARCHITECT ANH SPARKS M.D. Performed By: #### C MP #### [address] Aspartate aminotransferase [ Enzymatic activity/volume] in Serum or PlasmaOrdered By: Nayla Dorsey on 05-17-2023 AST [Catalytic activity/Vol] 18 U/L Normal 13-39 [facility] Comment on above: Order Comment: Reaso n for Exam Polydipsia Performed By: #### C MP #### [address] Bilirubin.total [Mass/volume ] in Serum or PlasmaOrdered By: Nayla Dorsey on 05-17-2023 Bilirubin [Mass/Vol] 0.6 mg/dL Normal 0.3-1.0 [facility] Comment on above: Order Comment: Reaso n for Exam Polydipsia Performed By: #### C MP #### [address] Calcium [Mass/volume] in Ser um or PlasmaOrdered By: Nayla Dorsey on 05-17-2023 Calcium [Mass/Vol] 10.1 mg/dL Normal 8.6-10.3 [facility] Comment on above: Order Comment: Reaso n for Exam Polydipsia Performed By: #### C MP #### [place] [address] [place] Carbon dioxide, total [Moles /volume] in Serum or PlasmaOrdered By: Nayla Dorsey on 05-17-2023 CO2 [Moles/Vol] 29.1 mmol/L Normal 21.0-31.0 [facility] Comment on above: Order Comment: Reaso n for Exam Polydipsia Performed By: #### C MP #### [address] [place] [address] [place] Chloride [Moles/volume] in S laura or PlasmaOrdered By: Nayla Dorsey on 05-17-2023 Chloride [Moles/Vol] 104 mmol/L Normal 98-107 [facility] Comment on above: Order Comment: Reaso n for Exam Polydipsia Performed By: #### C MP #### [address] Comprehensive Metabolic Pane aleks 05-17-2023 Albumin [Mass/Vol] 5.0 g/dL Normal 3.5-5.7 [facility] Comment on above: Order Comment: Reaso n for Exam Polydipsia Performed By: #### C MP #### [place] [address] [place] GFR/1.73 sq M.predicted MDRD (S/P/Bld) [Vol rate/Area] mL/min/{1.73_m2} Normal [facility] Comment on above: Order Comment: Reaso n for Exam Polydipsia Performed By: #### C MP #### [address] Creatinine [Mass/volume] in Serum or PlasmaOrdered By: Nayla Dorsey on 05-17-2023 Creatinine [Mass/Vol] 1.21 mg/dL Normal 0.70-1.30 [facility] Comment on above: Order Comment: Reaso n for Exam Polydipsia Performed By: #### C MP #### [place] [address] [place] Glucose [Mass/volume] in Ser um or PlasmaOrdered By: Nayla Dorsey on 05-17-2023 Glucose [Mass/Vol] 96 mg/dL Normal 70-100 [facility] Comment on above: ADA recommended refe rence rangeRandom Glucose Reference Range is dependent on time and content of last meal. Glucose of more than 200 mg/dL in a nonstressed, ambulatory subject supports the diagnosis of Diabetes Mellitus. Order Comment: Reaso n for Exam Polydipsia Result Comment: [place] om Glucose Reference Range is dependent on time and content of last meal. Glucose of more than 200 mg/dL in a nonstressed, ambulatory subject supports the diagnosis of Diabetes Mellitus. ADA recommended reference range Performed By: #### C MP #### [address] No Panel InformationOrdered By: Nayla Dorsey on 05-17-2023 Estimated GFR (CKD-EPI) > 60.0 mL/Min [facility] Creatinine Clearance (Chem N/A [facility] Potassium [Moles/volume] in Serum or PlasmaOrdered By: Nayla Dorsey on 05-17-2023 Potassium [Moles/Vol] 4.9 mmol/L Normal 3.5-5.1 [facility] Comment on above: Order Comment: Reaso n for Exam Polydipsia Performed By: #### C MP #### [address] Protein [Mass/volume] in Ser um or PlasmaOrdered By: Nayla Dorsey on 05-17-2023 Protein [Mass/Vol] 7.6 g/dL Normal 6.4-8.9 [facility] Comment on above: Order Comment: Reaso n for Exam Polydipsia Performed By: #### C MP #### [address] Serum globulin measurement b y calculation (mass/volume)Ordered By: Nayla Dorsey on 05-17-2023 Globulin (S) [Mass/Vol] 2.6 g/dL Normal [facility] Comment on above: Order Comment: Reaso n for Exam Polydipsia Performed By: #### C MP #### [address] Serum or plasma albumin/glob ulin mass ratioOrdered By: Nayla Dorsey on 05-17-2023 Albumin/Globulin [Mass ratio] 1.9 {ratio} Normal [facility] Comment on above: Order Comment: Reaso n for Exam Polydipsia Performed By: #### C MP #### [address] Serum or plasma anion gap de terminationOrdered By: Nayla Dorsey on 05-17-2023 Anion gap [Moles/Vol] 12.8 mmol/L Normal 6.0-15.0 [facility] Comment on above: Order Comment: Reaso n for Exam Polydipsia Performed By: #### C MP #### [facility] [address] [place] [address] [place] Sodium [Moles/volume] in Ser um or PlasmaOrdered By: Nayla Dorsey on 05-17-2023 Sodium [Moles/Vol] 141 mmol/L Normal 136-145 [facility] Comment on above: Order Comment: Reaso n for Exam Polydipsia Performed By: #### C MP #### [facility] [address] [id number] [place] Urea nitrogen [Mass/volume] in Serum or PlasmaOrdered By: Nayla [place] on 05-17-2023 Urea nitrogen [Mass/Vol] 15 mg/dL Normal 7-25 [facility] Comment on above: Order Comment: Reaso n for Exam Polydipsia Performed By: #### C MP #### [facility] [address] [place] [address] [place] C Urineon 04-06-2023 Bacteria identified Cx Nom (U) Microbiology PROCEDURE: Urine Culture [R1] SOURCE: U CleanCatch BODY SITE: COLLECTED DATE/TIME: 04/04/2023 10:44 EDT RECEIVED DATE/TIME: 04/04/2023 11:38 EDT START DATE/TIME: 04/04/2023 11:38 EDT FREE TEXT SOURCE: JAYDEN DUMONT, JOHN GILES PA-C, JOHN FINAL REPORTS Final Report [] Verified Date/Time: 04/06/2023 11:03 EDT 700 cfu/ml Mixed skin contaminants Performing Locations R1: [facility] [address] [place] [address], [phone]- , [place], Normal [facility] Comment on above: Performed By: #### 2 [id number] #### [facility] [address] [place] [id number] Family Medicine Office/Clini c Noteon 04-04-2023 Family Medicine Office/Clinic Note Chief Complaint EST sore throat, sores on tongue, headache, fever, congestion, dysuria, frequency HPI Staff Cameron, 17 yo male here today with sores on tongue, fever, bodyaches Symptoms began yesterday Pt has cold sweats, sore throat, sores on tongue, fever, bodyaches, headache Pt states he had thrush 1 mth ago, thinks it might be back-finished nystatin Pt has taken benadryl, ibuprofen Pt is also having dysuria, frequency History of Present Illness Reviewed and agree with above documented HPI by medical transcription radiology. Portions of this record may have been created with voice recognition artificial intelligence software, specifically [employer], [employer] and or [employer]. Substitutions may have occurred due to the inherent limitations of voice recognition and artificial intelligence software. Patient is a 17-year-old male who presented to [facility], for sore throat, possible thrush, patient states symptoms started 2 days ago, states he has been around people was positive for strep, and also has been around people has had pneumonia, patient states he has not been coughing, been able to eat and drink, has some discomfort with swallowing, but no difficulty swallowing. Patient states he did have thrush about 2 months ago, possibly did not use the medication correctly. He is not concerned about being exposed to COVID-19, but is concerned about having strep pharyngitis. Patient states been having fevers, and body aches, the symptoms started yesterday, has been having chills, and headaches, has been taking [id number] Benadryl, and ibuprofen, patient states he has been having urgency frequency, states started yesterday, has been passing a small amount of urine, states he does not empty his bladder, patient states he is not concerned about any sexually transmitted diseases. Patient denies any nausea vomiting, worsening headache of his life, dizziness, worsening sore throat, worsening cough, productive cough, chest pain, shortness of breath, abdominal pain, flank pain, or lumbar back pain. Review of Systems PHQ Score Initial Depression Screen Score: 0 Physical Exam Vitals & Measurements T: 36.8 ?C(Oral) HR: 116(Peripheral) BP: 118/68 SpO2: 99% HT: 78 in HT: 197 cm WT: 86 kg WT: 189.2 lb BMI: 22.16 General: Well developed, well nourished, in no acute distress, patient appears ill but not septic, no respiratory disorders noted. Patient answers questions appropriately and in complete sentences, and follows commands appropriately. Head: Normocephalic/atraum atic, no upper respiratory infections noted. Eyes: Pupils equal, round, and reactive to light. Conjunctivae and sclerae normal, Ears: Bilateral TMs Nose: No deformity, discharge, inflammation, or lesions Mouth: Mucous membranes moist possible thrush, no ulcerations, lesions are noted. Posterior pharynx without lesions or exudates. Neck: Neck supple. No masses or palpable cervical nodes. Trachea midline. Lungs: Normal respiratory effort and clear to auscultation throughout, no wheezing, no rales, crackles, or decreased breath sounds noted on examination. Cardio: regular rate and rhythm, no murmur no chest wall tenderness. Abdomen: Soft, nondistended, nontender, no rebound or guarding, normal bowel sounds, no left or right CVA tenderness, suprapubic pressure, or lumbar back pain on examination. Extremity: Patient is able move all 4 extremities equally well no pain or weakness. Patient is neurovascular intact. Neurologic: Grossly normal Skin: Skin is intact skin abrasions, rashes, or ecchymosis. Lymph Nodes: no lad Mental Status: alert, active Assessment/Plan Discussed with patient negative strep throat result, urinalysis within normal limits. 17-year-old male presented to [facility], for oral thrush, and dysuria, symptoms of dysuria started few days ago, patient has a history ongoing oral thrush, has not taken his nystatin, correctly, given new prescriptions for nystatin today, patient prefers to wait for his urine culture results before treatment, ducted to drink plenty of water, given work excuse note, and patient agree with plan. 1. Oral thrush (B37.0: Candidal stomatitis) See above Ordered: nystatin, 600,000 unit(s) = 6 mL, Oral, q6hr, X 10 day(s), # 240 mL, Refills(s) 0, Pharmacy: [facility], 197, cm, 04/04/23 9:39:00 EDT, Height/Length Dosing, 86, kg, 04/04/23 9:39:00 EDT, Weight Dosing Group A Strep by PCR 2. Dysuria (R30.0: Dysuria) Above Ordered: Urnls Dip Stick Non-Auto w/o Micrscpy POC 30349 3. Vaping-related disorder (U07.0: Vaping-related disorder) We strongly recommend to quit tobacco use. Cigarette smoking harms nearly every organ of the body, causes many diseases, and reduces the health of smokers in general. Quitting smoking lowers your risk for smoking-related diseases and can add years to your life. We encourage you to visit www.smokefree.gov access to helpful resources including free telephone support (more content not included)... Normal [facility] Comment on above: Result Comment: Elec tronically Signed By: JAYDEN DUMONT, JOHN\.br\Date and Time Signed: 04/04/23 10:30 EDT Grp A Strp PCRon 04-04-2023 Group A Strep Negative Normal [facility] Comment on above: Result Comment: Test ing performed using DNA amplification. Performed By: #### 1 [id number] #### [facility] [address] [place] [address] Grp A Strp Intrl Ctrl Pass Normal [facility] Comment on above: Performed By: #### 1 [id number] #### [facility] [address] [place] [address] Patient Educationon 04-04-20 Patient Education Infectious Disease Oral Thrush, Adult Oral thrush is an infection in your mouth and throat and on your tongue. It causes white patches to form in your mouth and on your tongue. Many cases of thrush are mild. But, sometimes, thrush can be serious. People who have a weak body defense system (immune system) or other diseases can be affected more. What are the causes? This condition is caused by a type of fungus called yeast. The fungus is normally present in small amounts in the mouth and nose. If a person has a long-term illness or a weak body defense system, the fungus can grow and spread quickly. This causes thrush. What increases the risk? You are more likely to develop this condition if: ? You have a weak body defense system. ? You are an older adult. ? You have diabetes, cancer, or HIV. ? You have a dry mouth. ? You are or . ? You do not take good care of your teeth. This risk is greater for people who have false teeth (dentures). ? You use antibiotic or steroid medicines. What are the signs or symptoms? Symptoms of this condition include: ? A burning feeling in the mouth and throat. ? White patches that stick to the mouth and tongue. ? A bad taste in the mouth or trouble tasting foods. ? A feeling like you have cotton in your mouth. ? Pain when you eat and swallow. ? Not wanting to eat as much as usual. ? Cracking at the corners of the mouth. How is this treated? This condition is treated with medicines called antifungals. These medicines prevent a fungus from growing. The medicines are either put right on the area (topical) or swallowed (oral). Your doctor will also treat other problems that you may have, such as diabetes or HIV. Follow these instructions at home: Helping with pain and soreness To lessen your pain: ? Drink cold liquids, like water and iced tea. ? Eat frozen ice pops or frozen juices. ? Eat foods that are easy to swallow, like gelatin and ice cream. ? Drink from a straw if you have too much pain in your mouth. General instructions ? Take or use [id number]-lnttfhp and prescription medicines only as told by your doctor. ? Eat plain yogurt that has live cultures in it. Read the label to make sure that there are live cultures in your yogurt. ? If you wear false teeth: ? Take them out before you go to bed. ? [place] them well. ? Soak them in a dry cleaner apprentice. ? Rinse your mouth with warm salt-water many times a day. To make the salt-water mixture, dissolve ??1 teaspoon (3?6 g) of salt in 1 cup (237 mL) of warm water. Contact a doctor if: ? Your problems do not get better within 7 days of treatment. ? Your infection is spreading. This may show as white areas on the skin outside of your mouth. ? You are nursing your baby and you have redness and pain in the nipples. Summary ? Oral thrush is an infection in your mouth and throat. It is caused by a fungus. ? You are more likely to get this condition if you have a weak body defense system. Diseases like diabetes, cancer, or HIV also add to your risk. ? This condition is treated with medicines called antifungals. ? Contact a doctor if you do not get better within 7 days of starting treatment. This information is not intended to replace advice given to you by your health care provider. Make sure you discuss any questions you have with your health care provider. Document Revised: 02/10/2022 Document Reviewed: 04/18/2020 [employer] Patient Education ? 2022 Robert Applebaum MD. Pulmonary Medicine E-Cigarette or Vaping Use-Associated Lung Injury E-cigarette or vaping use-associated lung injury (EVALI) is a lung condition in people who smoke electronic cigarettes (vape). Electronic cigarettes are commonly called e-cigarettes. EVALI is not a lung infection. EVALI damages lung tissue directly. E-cigarettes that deliver the active ingredient in marijuana (THC) are associated with more cases of EVALI. This may be from a substance called vitamin E acetate that is often used in e-cigarettes that contain THC. Vitamin E acetate causes injury when inhaled into the lungs. Other harmful ingredients in e-cigarettes may also cause lung injury. What are the causes? This condition happens when a person vapes e-cigarettes. The exact cause of EVALI is not known. Vitamin E acetate is most likely a primary cause, but other ingredients may play a role. E-cigarettes that deliver only nicotine may also damage the lungs. What increases the risk? You are more likely to develop this condition if: ? You use an e-cigarette to vape marijuana. ? You use an e-cigarette sold to you from someone else, instead of buying it at a store. ? You have an underlying lung disease, such as asthma or chronic obstructive pulmonary disease (COPD). ? You have heart disease or high blood pressure. ? You currently smoke cigarettes or used to smoke them. What are the signs or symptoms? Sympt (more content not included)... Normal [facility] [place] [facility] [place] [facility] [address], [place] [address] April 04, 2023 CAMERON YODER [address] [place] [address] : 2005 Please excuse CAMERON TERESA from work . Date and/or Time of Absence: From: 04/04/23 May return to work on: 04/05/23 Restrictions: None Comments: Please excuse due to an acute illness. Provider Signature: John Giles PA-C [address] [place] [address] [facility] [place] 03-08-2023 Consent [id number] #[id number] [facility] Family Medicine Office/Clini c Noteon 03-08-2023 Family Medicine Office/Clinic Note Chief Complaint EST TMJ HPI Staff 17 yr old male here for head, neck, and jaw pain has TMJ states he has an appointment next month but it gets really bad History of Present Illness I have reviewed and verified the staff HPI to be accurate for this encounter. Portions of this record have been created with voice recognition software. Occasional wrong-word or ?iymgz-l-xqlw? substitutions may have occurred due to the inherent limitations of voice recognition software. 17 yo male presents today with cc of head, neck, and jaw pain. States hx of TMJ, states has an appointment next month to see a specialist, but states his pain is very bad. Patient states that he is scheduled on Tuesday, March 11 for wisdom teeth removal. States he has a right lower was into the room sometime ago but states he is having the 2 upper wisdom teeth removed. He states that they are way of high due to the sinus cavity in which he states he has had increase in pain. Patient states he then may be referred to a TMJ specialist. Patient states he had braces in the past states he got them off about a year or so ago. He states he grinds his teeth at night and will require a nightguard however they want to remove these wisdom teeth first. He states that the TMJ causes all kinds of issues clicking in the jaw pain that radiates into his ears discomfort and tension headaches states pain at the back of the neck. He denies any fever chills or weakness denies any rashes abrasions or lesions. Denies any injuries or trauma to the neck head or jaw that he is aware of. Patient states he was seen at [facility] about a month or so ago at that time was treated with steroids muscle relaxer and Toradol. Patient states he had some improvement of discomfort and it seemed to help some but states now pain is back. Patient rates his jaw and back headache as a 7 out of 10 on the pain scale throbbing in nature. He has no other concerns at this time. Review of Systems PHQ Score Initial Depression Screen Score: 0 ROS negative unless otherwise stated in HPI. Physical Exam Vitals & Measurements T: 37 ?C(Oral) HR: 91(Peripheral) BP: 120/80 SpO2: 99% HT: 78 in HT: 198 cm WT: 87.2 kg WT: 191.84 lb BMI: 22.24 General: Well developed, well nourished, in no acute distress Eyes: Bilateral conjunctival within normal limits no injection Ears: Bilateral tympanic membranes within normal limits no erythema or bulging. Bilateral external auditory canals are within normal limits no erythema or edema. Nose: No deformity, discharge, inflammation, or lesions Mouth: No tonsillar erythema or exudate uvula is midline no signs of peritonsillar abscess. No trismus or drooling. With palpation of her bilateral jaw regions with opening and closing the jaw patient does have clicks. Patient states discomfort. Neck: Patient has discomfort along the right and left sides of the neck which seems to be musculoskeletal in nature. No bruising lacerations abrasions or lesions of the neck. Normal alignment of cervical spine no localized cervical spine or paraspinal tenderness. No step-offs. No focal deficits. Neck is supple. Lungs: Lung sounds are clear bilaterally. No wheezing rhonchi or crackles on exam. Cardio: S1, S2, regular rhythm. No murmurs gallops or rubs. Abdomen: not assessed Musculoskeletal: not assessed Extremity: not assessed Neurologic: not assessed Skin: No rashes, ulcerations, or suspicious lesions Mental Status: Alert and oriented x3. Normal mood and affect Assessment/Plan I discussed with patient close follow-up as he sees oral surgeon on Tuesday for removal of bilateral upper wisdom teeth. Discussed with patient to contact their office tomorrow morning to discuss medication such as prednisone or Flexeril provided to the patient today for neck strain in addition to his TMJ. Patient is understanding. Discussed with patient that with having prednisone last month and now today to proceed with caution with any further prednisone prescriptions as long use of steroids can cause adverse effects which patient is understanding and agreement. He will continue with Tylenol as needed for pain patient given a 30 mg IM injection of Toradol while here for improvement of neck pain headache and jaw pain. Patient will continue to monitor his symptoms he will keep his appointment for Tuesday should follow closely with primary care provider dentist and/or TMJ specialist. Patient agrees and understands plan of care. 1. TMJ click (R29.898: Other symptoms and signs involving the musculoskeletal system) I discussed with patient in regards to treatment of muscle relaxer 1 tablet every 8 hours as needed for muscle spasm. Do not drive or drink alcohol taking this medication as it may make you drowsy. Prescription for prednisone 40 mg daily x5 days is sent to the pharmacy for you. Take this as directed. Refrain from use of NSAID medications while taking the prednisone as they can both cause upset stomach. Tylenol is safest while taking prednisone. (more content not included)... Normal [facility] Comment on above: Result Comment: Elec tronically Signed By: Manuel DUMONT, Kenroy Burger\.br\Date and Time Signed: 03/08/23 08:59 EDT Patient Educationon 03-08-20 Patient Education Orthopedics Temporomandibular Joint Syndrome Temporomandibular joint syndrome (TMJ syndrome) is a condition that causes pain in the temporomandibular joints. These joints are located near your ears and allow your jaw to open and close. For people with TMJ syndrome, chewing, biting, or other movements of the jaw can be difficult or painful. TMJ syndrome is often mild and goes away within a few weeks. However, sometimes the condition becomes a long-term (chronic) problem. What are the causes? This condition may be caused by: ? Grinding your teeth or clenching your jaw. Some people do this when they are stressed. ? Arthritis. ? An injury to the jaw. ? A head or neck injury. ? Teeth or dentures that are not aligned well. In some cases, the cause of TMJ syndrome may not be known. What are the signs or symptoms? The most common symptom of this condition is aching pain on the side of the head in the area of the TMJ. Other symptoms may include: ? Pain when moving your jaw, such as when chewing or biting. ? Not being able to open your jaw all the way. ? Making a clicking sound when you open your mouth. ? Headache. ? Earache. ? Neck or shoulder pain. How is this diagnosed? This condition may be diagnosed based on: ? Your symptoms and medical history. ? A physical exam. Your health care provider may check the range of motion of your jaw. ? Imaging tests, such as X-rays or an MRI. You may also need to see your dentist, who will check if your teeth and jaw are lined up correctly. How is this treated? TMJ syndrome often goes away on its own. If treatment is needed, it may include: ? Eating soft foods and applying ice or heat. ? Medicines to relieve pain or inflammation. ? Medicines or massage to relax the muscles. ? A splint, bite plate, or mouthpiece to prevent teeth grinding or jaw clenching. ? Relaxation techniques or counseling to help reduce stress. ? A therapy for pain in which an electrical current is applied to the nerves through the skin (transcutaneous electrical nerve stimulation). ? Acupuncture. This may help to relieve pain. ? Jaw surgery. This is rarely needed. Follow these instructions at home: Eating and drinking ? Eat a soft diet if you are having trouble chewing. ? Avoid foods that require a lot of chewing. Do not chew gum. General instructions ? Take [id number] and prescription medicines only as told by your health care provider. ? If directed, put ice on the painful area. To do this: ? Put ice in a plastic bag. ? Place a towel between your skin and the bag. ? Leave the ice on for 20 minutes, 2?3 times a day. ? Remove the ice if your skin turns bright red. This is very important. If you cannot feel pain, heat, or cold, you have a greater risk of damage to the area. ? Apply a warm, wet cloth (warm compress) to the painful area as told. ? Massage your jaw area and do any jaw stretching exercises as told by your health care provider. ? If you were given a splint, bite plate, or mouthpiece, wear it as told by your health care provider. ? Keep all follow-up visits. This is important. Where to find more information ? National [place] [employer]io[employer] Research: www.nidcr.nih.gov Contact a health care provider if: ? You have trouble eating. ? You have new or worsening symptoms. Get help right away if: ? Your jaw locks. Summary ? Temporomandibular joint syndrome (TMJ syndrome) is a condition that causes pain in the temporomandibular joints. These joints are located near your ears and allow your jaw to open and close. ? TMJ syndrome is often mild and goes away within a few weeks. However, sometimes the condition becomes a long-term (chronic) problem. ? Symptoms include an aching pain on the side of the head in the area of the TMJ, pain when chewing or biting, and being unable to open your jaw all the way. You may also make a clicking sound when you open your mouth. ? TMJ syndrome often goes away on its own. If treatment is needed, it may include medicines to relieve pain, reduce inflammation, or relax the muscles. A splint, bite plate, or mouthpiece may also be used to prevent teeth grinding or jaw clenching. This information is not intended to replace advice given to you by your health care provider. Make sure you discuss any questions you have with your health care provider. Document Revised: 01/24/2022 Document Reviewed: 01/24/2022 [employer] Patient Education ? 2022 [employer] Cervical Sprain A cervical sprain is also called a neck sprain. It is a stretch or tear in one or more ligaments in the neck. Ligaments are tissues that connect bones to each other. Neck sprains can be mild, bad, or very bad. A very bad sprain in the neck can cause the bones in the neck to be unstable. This can damage the spinal cord. It can also cause serious problems in the brain, spinal cord, and nerves (ner (more content not included)... Normal [facility] COVID Quick Testingon 2022 Result Negative [employer] Other Quick Strepon 02-06-2023 S. pyogenes Org specific cx Ql (Throat) Negative [employer] Other Quick Strep [employer] Other Throat Cultureon 02-06-2023 Throat culture Reason for Exam Sore throat Throat ORGANISM: Lizbeth albicans (O:CANALB) Quantity of Growth Moderate Growth PERFORMED BY: [place] [address] PATHOLOGIST [employer]AD [employer] ARCHITECT ANH SPARKS M.D. Normal [facility] Comment on above: Performed By: #### C SD #### [address] Erythrocyte sedimentation ra te by Photometric methodOrdered By: Mio Nicholson on 10-23-2022 ESR Photometric method (Bld) [Velocity] 2 mm/hr 0-14 [facility] Troponin I.cardiac [Mass/vol ume] in Serum or Plasma by Detection limit <= 0.01 ng/Ordered By: Mio Nicholson on 10-23-2022 Troponin I.cardiac DL <= 0.01 ng/mL [Mass/Vol] 3.0 pg/mL 0.0-20.0 [facility] Alanine aminotransferase [En zymatic activity/volume] in Serum or PlasmaOrdered By: Saqib Brantley on 10-22-2022 ALT [Catalytic activity/Vol] 17 U/L 7-52 [facility] Albumin [Mass/volume] in Ser um or Plasma by Bromocresol green (BCG) dye binding methoOrdered By: Saqib Brantley on 10-22-2022 Albumin BCG dye [Mass/Vol] 4.4 g/dL 3.5-5.7 [facility] Alkaline phosphatase [Enzyma tic activity/volume] in Serum or PlasmaOrdered By: Saqib Brantley on 10-22-2022 ALP [Catalytic activity/Vol] 69 U/L 34-104 [facility] Aspartate aminotransferase [ Enzymatic activity/volume] in Serum or PlasmaOrdered By: Saqib Brantley on 10-22-2022 AST [Catalytic activity/Vol] 16 U/L 13-39 [facility] Basophils Auto (Bld) [#/Vol] Ordered By: Saqib Brantley on 10-22-2022 Basophils (Bld) [#/Vol] 0.0 10*3/uL 0.0-0.2 [facility] Basophils/100 WBC Auto (Bld) Ordered By: Saqib Brantley on 10-22-2022 Basophils/100 WBC (Bld) 0.4 % . [facility] Bilirubin.total [Mass/volume ] in Serum or PlasmaOrdered By: Saqib Brantley on 10-22-2022 Bilirubin [Mass/Vol] 0.6 mg/dL 0.3-1.0 [facility] Calcium [Mass/volume] in Ser um or PlasmaOrdered By: Saqib Brantley on 10-22-2022 Calcium [Mass/Vol] 8.7 mg/dL 8.6-10.3 [facility] Carbon dioxide, total [Moles /volume] in Serum or PlasmaOrdered By: Saqib Brantley on 10-22-2022 CO2 [Moles/Vol] 24.7 mmol/L 21.0-31.0 [facility] Chloride [Moles/volume] in S laura or PlasmaOrdered By: Saqib Brantley on 10-22-2022 Chloride [Moles/Vol] 107 mmol/L 98-107 [facility] Creatine kinase [Enzymatic a ctivity/volume] in Serum or PlasmaOrdered By: Saqib Brantley on 10-22-2022 CK [Catalytic activity/Vol] 173 U/L 30-223 [facility] Creatine kinase.MB [Mass/vol ume] in Serum or PlasmaOrdered By: Saqib Brantley on 10-22-2022 CK.MB [Mass/Vol] 1.7 ng/mL 0.6-6.3 [facility] Creatinine [Mass/volume] in Serum or PlasmaOrdered By: Saqib Brantley on 10-22-2022 Creatinine [Mass/Vol] 1.00 mg/dL 0.70-1.30 [facility] Eosinophils Auto (Bld) [#/Vo l]Ordered By: Saqib Brantley on 10-22-2022 Eosinophils (Bld) [#/Vol] 0.1 10*3/uL 0.0-0.45 [facility] Eosinophils/100 WBC Auto (Bl d)Ordered By: Saqib Brantley on 10-22-2022 Eosinophils/100 WBC (Bld) 1.0 % . [facility] Erythrocyte distribution wid th Auto (RBC) [Ratio]Ordered By: Saqib Brantley on 10-22-2022 Erythrocyte distribution width (RBC) [Ratio] 13.7 % 12.0-14.8 [facility] Globulin Calc (S) [Mass/Vol] Ordered By: Saqib Brantley on 10-22-2022 Globulin (S) [Mass/Vol] 2.4 g/dL [facility] Glucose Glucometer (BldC) [M ass/Vol]Ordered By: Saqib Brantley on 10-22-2022 Glucose [Mass/Vol] 74 mg/dL [facility] Comment on above: Random Glucose Refer ence Range is dependent on time and content of last meal. Glucose of more than 200 mg/dL in a nonstressed, ambulatory subject supports the diagnosis of Diabetes Mellitus. Glucose [Mass/volume] in Ser um or PlasmaOrdered By: Saqib Brantley on 10-22-2022 Glucose [Mass/Vol] 91 mg/dL 70-100 [facility] Comment on above: ADA recommended refe rence rangeRandom Glucose Reference Range is dependent on time and content of last meal. Glucose of more than 200 mg/dL in a nonstressed, ambulatory subject supports the diagnosis of Diabetes Mellitus. Hematocrit Auto (Bld) [Volum e fraction]Ordered By: Saqib Brantley on 10-22-2022 Hematocrit (Bld) [Volume fraction] 46.1 % 38.8-50.0 [facility] Hemoglobin [Mass/volume] in BloodOrdered By: Saqib Brantley on 10-22-2022 Hemoglobin (Bld) [Mass/Vol] 15.7 g/dL 13.0-17.0 [facility] Leukocytes [#/volume] correc jayleen for nucleated erythrocytes in Blood by Automated counOrdered By: Saqib Brantley on 10-22-2022 WBC corrected for nucl RBC Auto (Bld) [#/Vol] 10.5 10*3/uL 4.1-10.5 [facility] Lymphocytes Auto (Bld) [#/Vo l]Ordered By: Saqib Brantley on 10-22-2022 Lymphocytes (Bld) [#/Vol] 1.8 10*3/uL 1.00-4.8 [facility] Lymphocytes/100 WBC Auto (Bl d)Ordered By: Saqib Brantley on 10-22-2022 Lymphocytes/100 WBC (Bld) 17.4 % . [facility] MCH Auto (RBC) [Entitic mass ]Ordered By: Saqib Brantley on 10-22-2022 MCH (RBC) [Entitic mass] 29.5 pg 27.5-35.2 [facility] MCHC Auto (RBC) [Mass/Vol]Or dered By: Saqib Brantley on 10-22-2022 MCHC (RBC) [Mass/Vol] 34.0 g/dL 32.5-35.6 [facility] MCV Auto (RBC) [Entitic vol] Ordered By: Saqib Brantley on 10-22-2022 MCV (RBC) [Entitic vol] 86.7 fL 83.5-101 [facility] Monocytes Auto (Bld) [#/Vol] Ordered By: Saqib Brantley on 10-22-2022 Monocytes (Bld) [#/Vol] 0.7 10*3/uL 0.0-0.8 [facility] Monocytes/100 WBC Auto (Bld) Ordered By: Saqib Brantley on 10-22-2022 Monocytes/100 WBC (Bld) 7.1 % . [facility] Neutrophils Auto (Bld) [#/Vo l]Ordered By: Saqib Brantley on 10-22-2022 Neutrophils (Bld) [#/Vol] 7.7 10*3/uL 1.8-7.7 [facility] Neutrophils/100 WBC Auto (Bl d)Ordered By: Saqib Brantley on 10-22-2022 Neutrophils/100 WBC (Bld) 74.1 % . [facility] No Panel InformationOrdered By: Saqib Brantley on 10-22-2022 Bedside Glucose Comment Glu2: cleaned meter [facility] Estimated GFR (CKD-EPI) > 60.0 mL/Min [facility] Creatinine Clearance (Chem 143.69 [facility] Nucleated erythrocytes [Pres ence] in Blood by Automated countOrdered By: Saqib Brantley on 10-22-2022 Nucleated RBC Auto Ql (Bld) 0.1 /100{WBC} 0-0.5 [facility] Platelet mean volume Auto (B ld) [Entitic vol]Ordered By: Saqib Brantley on 10-22-2022 Platelet mean volume (Bld) [Entitic vol] 9.3 fL 6.6-10.1 [facility] Platelets Auto (Bld) [#/Vol] Ordered By: Saqib Brantley on 10-22-2022 Platelets (Bld) [#/Vol] 174 10*3/uL 150-450 [facility] Potassium [Moles/volume] in Serum or PlasmaOrdered By: Saqib Brantley on 10-22-2022 Potassium [Moles/Vol] 3.9 mmol/L 3.5-5.1 [facility] Protein [Mass/volume] in Ser um or PlasmaOrdered By: Saqib Brantley on 10-22-2022 Protein [Mass/Vol] 6.8 g/dL 6.4-8.9 [facility] RBC Auto (Bld) [#/Vol]Ordere d By: Saqib Brantley on 10-22-2022 RBC (Bld) [#/Vol] 5.32 10*6/uL 3.90-5.60 [facility] Serum or plasma albumin/glob ulin mass ratioOrdered By: Saqib Brantley on 10-22-2022 Albumin/Globulin [Mass ratio] 1.8 {ratio} [facility] Serum or plasma anion gap de terminationOrdered By: Saqib Brantley on 10-22-2022 Anion gap [Moles/Vol] 10.2 mmol/L 6.0-15.0 [facility] Serum or plasma creatine kin ase MB (CKMB)/total creatine kinase (CK) ratio by calculaOrdered By: Saqib Brantley on 10-22-2022 CK.MB Calc [Catalytic fraction] 0.9 % 0.00-2.50 [facility] Sodium [Moles/volume] in Ser um or PlasmaOrdered By: Saqib Brantley on 10-22-2022 Sodium [Moles/Vol] 138 mmol/L 136-145 [facility] Urea nitrogen [Mass/volume] in Serum or PlasmaOrdered By: Saqib Brantley on 10-22-2022 Urea nitrogen [Mass/Vol] 16 mg/dL 7-25 [facility] WBC Auto (Bld) [#/Vol]Ordere d By: Saqib Brantley on 10-22-2022 WBC (Bld) [#/Vol] 10.5 10*3/uL 4.1-10.5 [facility] Acetaminophen [Mass/volume] in Serum or PlasmaOrdered By: Mehdi Ornelas on 10-21-2022 Acetaminophen [Mass/Vol] 0.7 ug/mL 10.0-30.0 [facility] Alanine aminotransferase [En zymatic activity/volume] in Serum or PlasmaOrdered By: Mehdi Ornelas on 10-21-2022 ALT [Catalytic activity/Vol] 19 U/L 7-52 [facility] Albumin [Mass/volume] in Ser um or Plasma by Bromocresol green (BCG) dye binding methoOrdered By: Mehdi Ornelas on 10-21-2022 Albumin BCG dye [Mass/Vol] 4.9 g/dL 3.5-5.7 [facility] Alkaline phosphatase [Enzyma tic activity/volume] in Serum or PlasmaOrdered By: Mehdi Ornelas on 10-21-2022 ALP [Catalytic activity/Vol] 82 U/L 34-104 [facility] Amphetamine Screen Ql (U)Ord ered By: Mehdi Ornelas on 10-21-2022 Amphetamines Ql (U) Negative Negative [facility] Aspartate aminotransferase [ Enzymatic activity/volume] in Serum or PlasmaOrdered By: Mehdi Ornelas on 10-21-2022 AST [Catalytic activity/Vol] 19 U/L 13-39 [facility] Automated erythrocytes count in urine sediment (number/area)Ordered By: Mehdi Ornelas on 10-21-2022 RBC Auto (Urine sed) [#/Area] 0-1 [HPF] 0-4 [facility] Automated leukocytes count i n urine sediment (number/area)Ordered By: Mehdi Ornelas on 10-21-2022 WBC Auto (Urine sed) [#/Area] None seen [HPF] 0-4 [facility] Barbiturates [Presence] in U rine by Screen methodOrdered By: Mehdi Ornelas on 10-21-2022 Barbiturates Screen Ql (U) Negative Negative [facility] Basophils Auto (Bld) [#/Vol] Ordered By: Mehdi Ornelas on 10-21-2022 Basophils (Bld) [#/Vol] 0.0 10*3/uL 0.0-0.2 [facility] Basophils/100 WBC Auto (Bld) Ordered By: Mehdi Ornelas on 10-21-2022 Basophils/100 WBC (Bld) 0.3 % . [facility] Benzodiazepines Screen Ql (U )Ordered By: Mehdi Ornelas on 10-21-2022 Benzodiazepines Ql (U) Negative Negative [facility] Benzoylecgonine [Presence] i n Urine by Screen methodOrdered By: Mehdi Ornelas on 10-21-2022 Benzoylecgonine Screen Ql (U) Negative Negative [facility] Bilirubin Test strip Ql (U)O rdered By: Mehdi Ornelas on 10-21-2022 Bilirubin Ql (U) Negative Negative [facility] Bilirubin.total [Mass/volume ] in Serum or PlasmaOrdered By: Mehdi Ornelas on 10-21-2022 Bilirubin [Mass/Vol] 0.4 mg/dL 0.3-1.0 [facility] Calcium [Mass/volume] in Ser um or PlasmaOrdered By: Mehdi Ornelas on 10-21-2022 Calcium [Mass/Vol] 9.9 mg/dL 8.6-10.3 [facility] Cannabinoids [Presence] in U rine by Screen methodOrdered By: Mehdi Ornelas on 10-21-2022 Cannabinoids Screen Ql (U) Negative Negative [facility] Comment on above: These are unconfirme d results and should not be used for legal purposes. Drug Cut-Off Concentration: AMPH 1000 ng/mL MACEY 200 ng/mL MAR 200 ng/mL COCM 300 ng/mL OP 300 ng/mL PCP 25 ng/mL THC 20 ng/mL Carbon dioxide, total [Moles /volume] in Serum or PlasmaOrdered By: Mehdi Ornelas on 10-21-2022 CO2 [Moles/Vol] 20.9 mmol/L 21.0-31.0 [facility] Chloride [Moles/volume] in S laura or PlasmaOrdered By: Mehdi Ornelas on 10-21-2022 Chloride [Moles/Vol] 103 mmol/L 98-107 [facility] Color Auto (U)Ordered By: Osmany Ornelas on 10-21-2022 Color (U) Yellow Yellow [facility] Creatinine [Mass/volume] in Serum or PlasmaOrdered By: Mehdi Ornelas on 10-21-2022 Creatinine [Mass/Vol] 1.15 mg/dL 0.70-1.30 [facility] Eosinophils Auto (Bld) [#/Vo l]Ordered By: Mehdi Ornelas on 10-21-2022 Eosinophils (Bld) [#/Vol] 0.0 10*3/uL 0.0-0.45 [facility] Eosinophils/100 WBC Auto (Bl d)Ordered By: Mehdi Ornelas on 10-21-2022 Eosinophils/100 WBC (Bld) 0.4 % . [facility] Erythrocyte distribution wid th Auto (RBC) [Ratio]Ordered By: Mehdi Ornelas on 10-21-2022 Erythrocyte distribution width (RBC) [Ratio] 13.7 % 12.0-14.8 [facility] Ethanol [Mass/volume] in Ser um or PlasmaOrdered By: Mehdi Ornelas on 10-21-2022 Ethanol [Mass/Vol] mg/dL [facility] Ethanol [Mass/Vol] TNP [facility] Comment on above: Test not performed Globulin Calc (S) [Mass/Vol] Ordered By: Mehdi Ornelas on 10-21-2022 Globulin (S) [Mass/Vol] 3.1 g/dL [facility] Glucose Glucometer (BldC) [M ass/Vol]Ordered By: Mehdi Ornelas on 10-21-2022 Glucose [Mass/Vol] 105 mg/dL [facility] Comment on above: Random Glucose Refer ence Range is dependent on time and content of last meal. Glucose of more than 200 mg/dL in a nonstressed, ambulatory subject supports the diagnosis of Diabetes Mellitus. Glucose [Mass/volume] in Ser um or PlasmaOrdered By: Mehdi Ornelas on 10-21-2022 Glucose [Mass/Vol] 115 mg/dL 70-100 [facility] Comment on above: ADA recommended refe rence rangeRandom Glucose Reference Range is dependent on time and content of last meal. Glucose of more than 200 mg/dL in a nonstressed, ambulatory subject supports the diagnosis of Diabetes Mellitus. Hematocrit Auto (Bld) [Volum e fraction]Ordered By: Mehdi Ornelas on 10-21-2022 Hematocrit (Bld) [Volume fraction] 48.4 % 38.8-50.0 [facility] Hemoglobin [Mass/volume] in BloodOrdered By: Mehdi Ornelas on 10-21-2022 Hemoglobin (Bld) [Mass/Vol] 16.5 g/dL 13.0-17.0 [facility] Ketones Auto test strip (U) [Mass/Vol]Ordered By: Mehdi Ornelas on 10-21-2022 Ketones (U) [Mass/Vol] 1+ Negative [facility] - UrinalysisOrder ed By: Mehdi Ornelas on 10-21-2022 Hyaline casts LM Ql (Urine sed) None seen [LPF] 0-8 [facility] Leukocytes [#/volume] correc jayleen for nucleated erythrocytes in Blood by Automated counOrdered By: Mehdi Ornelas on 10-21-2022 WBC corrected for nucl RBC Auto (Bld) [#/Vol] 11.2 10*3/uL 4.1-10.5 [facility] Lymphocytes Auto (Bld) [#/Vo l]Ordered By: Mehdi Ornelas on 10-21-2022 Lymphocytes (Bld) [#/Vol] 1.6 10*3/uL 1.00-4.8 [facility] Lymphocytes/100 WBC Auto (Bl d)Ordered By: Mehdi Ornelas on 10-21-2022 Lymphocytes/100 WBC (Bld) 14.0 % . [facility] MCH Auto (RBC) [Entitic mass ]Ordered By: Mehdi Ornelas on 10-21-2022 MCH (RBC) [Entitic mass] 29.5 pg 27.5-35.2 [facility] MCHC Auto (RBC) [Mass/Vol]Or dered By: Mehdi Ornelas on 10-21-2022 MCHC (RBC) [Mass/Vol] 34.1 g/dL 32.5-35.6 [facility] MCV Auto (RBC) [Entitic vol] Ordered By: Mehdi Ornelas on 10-21-2022 MCV (RBC) [Entitic vol] 86.6 fL 83.5-101 [facility] Magnesium [Mass/volume] in S laura or PlasmaOrdered By: Mehdi Ornelas on 10-21-2022 Magnesium [Mass/Vol] 1.8 mg/dL 1.9-2.7 [facility] Monocyte distribution width [Entitic volume] in Blood by AutomatedOrdered By: Mehdi Ornelas on 10-21-2022 Monocyte distribution width Auto (Bld) [Entitic vol] 17.66 % 0.00-20.00 [facility] Monocytes Auto (Bld) [#/Vol] Ordered By: Mehdi Ornelas on 10-21-2022 Monocytes (Bld) [#/Vol] 0.7 10*3/uL 0.0-0.8 [facility] Monocytes/100 WBC Auto (Bld) Ordered By: Mehdi Ornelas on 10-21-2022 Monocytes/100 WBC (Bld) 6.1 % . [facility] Neutrophils Auto (Bld) [#/Vo l]Ordered By: Mehdi Ornelas on 10-21-2022 Neutrophils (Bld) [#/Vol] 8.9 10*3/uL 1.8-7.7 [facility] Neutrophils/100 WBC Auto (Bl d)Ordered By: Mehdi Ornelas on 10-21-2022 Neutrophils/100 WBC (Bld) 79.2 % . [facility] Nitrite Test strip Ql (U)Ord ered By: Mehdi Ornelas on 10-21-2022 Nitrite Ql (U) Negative Negative [facility] No Panel InformationOrdered By: Mehdi Ornelas on 10-21-2022 Bedside Glucose Comment Glu2: cleaned meter [facility] Estimated GFR (CKD-EPI) > 60.0 mL/Min [facility] Creatinine Clearance (Chem 124.62 [facility] Nucleated erythrocytes [Pres ence] in Blood by Automated countOrdered By: Mehdi Ornelas on 10-21-2022 Nucleated RBC Auto Ql (Bld) 0.1 /100{WBC} 0-0.5 [facility] Opiates [Presence] in Urine by Screen methodOrdered By: Mehdi Ornelas on 10-21-2022 Opiates Screen Ql (U) Negative Negative [facility] Phencyclidine Screen Ql (U)O rdered By: Mehdi Ornelas on 10-21-2022 Phencyclidine Ql (U) Negative Negative [facility] Platelet mean volume Auto (B ld) [Entitic vol]Ordered By: Mehdi Ornelas on 10-21-2022 Platelet mean volume (Bld) [Entitic vol] 9.4 fL 6.6-10.1 [facility] Platelets Auto (Bld) [#/Vol] Ordered By: Mehdi Ornelas on 10-21-2022 Platelets (Bld) [#/Vol] 214 10*3/uL 150-450 [facility] Potassium [Moles/volume] in Serum or PlasmaOrdered By: Mehdi Ornelsa on 10-21-2022 Potassium [Moles/Vol] 3.5 mmol/L 3.5-5.1 [facility] Protein Auto test strip (U) [Mass/Vol]Ordered By: Mehdi Ornelas on 10-21-2022 Protein (U) [Mass/Vol] Trace mg/dL Negative [facility] Protein [Mass/volume] in Ser um or PlasmaOrdered By: Mehdi Ornelas on 10-21-2022 Protein [Mass/Vol] 8.0 g/dL 6.4-8.9 [facility] RBC Auto (Bld) [#/Vol]Ordere d By: Mehdi Ornelas on 10-21-2022 RBC (Bld) [#/Vol] 5.59 10*6/uL 3.90-5.60 [facility] Salicylates [Mass/volume] in Serum or PlasmaOrdered By: Mehdi Ornelas 10-21-2022 Salicylates [Mass/Vol] mg/dL 15.0-30.0 [facility] Comment on above: Patients treated wit h Sulfasalazine may generate a false high result for Salicylate. Serum or plasma albumin/glob ulin mass ratioOrdered By: Mehdi Ornelas on 10-21-2022 Albumin/Globulin [Mass ratio] 1.6 {ratio} [facility] Serum or plasma anion gap de terminationOrdered By: Mehdi Ornelas 10-21-2022 Anion gap [Moles/Vol] 16.6 mmol/L 6.0-15.0 [facility] Sodium [Moles/volume] in Ser um or PlasmaOrdered By: Mehdi Ornelas on 10-21-2022 Sodium [Moles/Vol] 137 mmol/L 136-145 [facility] Specific gravity Auto test s trip (U) [Rel density]Ordered By: Mehdi Ornelas on 10-21-2022 Specific gravity (U) [Rel density] 1.023 1.001-1.030 [facility] Squamous epithelial cells de tection in urine sediment by light microscopyOrdered By: Mehdi Ornelas on 10-21-2022 Epithelial cells.squamous LM Ql (Urine sed) None seen [HPF] 0-2 [facility] Urea nitrogen [Mass/volume] in Serum or PlasmaOrdered By: Mehdi Ornelas on 10-21-2022 Urea nitrogen [Mass/Vol] 14 mg/dL 7-25 [facility] Urine bacteria detection by automated methodOrdered By: Mehdi Ornelas on 10-21-2022 Bacteria Auto Ql (U) None seen None Seen [facility] Urine clarity by refractomet ry automatedOrdered By: Mehdi Ornelas on 10-21-2022 Clarity Refractometry automated (U) Clear Clear [facility] Urine glucose measurement by automated test strip (mass/volume)Ordered By: Mehdi Ornelas on 10-21-2022 Glucose Auto test strip (U) [Mass/Vol] Normal mg/dL Normal [facility] Urine hemoglobin detection b y automated test stripOrdered By: Mehdi Ornelas on 10-21-2022 Hemoglobin Auto test strip Ql (U) Negative Negative [facility] Urine leukocyte esterase det ection by automated test stripOrdered By: Mehdi Ornelas on 10-21-2022 Leukocyte esterase Auto test strip Ql (U) Negative Negative [facility] Urobilinogen Auto test strip (U) [Mass/Vol]Ordered By: Mehdi Ornelas on 10-21-2022 Urobilinogen (U) [Mass/Vol] Normal mg/dL Normal [facility] WBC Auto (Bld) [#/Vol]Ordere d By: Mehdi Ornelas on 10-21-2022 WBC (Bld) [#/Vol] 11.2 10*3/uL 4.1-10.5 [facility] pH Auto test strip (U)Ordere d By: Mehdi Ornelas on 10-21-2022 pH (U) 8.5 [pH] 5.0-9.0 [facility] Alanine aminotransferase [En zymatic activity/volume] in Serum or PlasmaOrdered By: Nicole Jarrett on 10-13-2022 ALT [Catalytic activity/Vol] 20 U/L 7-52 [facility] Albumin [Mass/volume] in Ser um or Plasma by Bromocresol green (BCG) dye binding methoOrdered By: Nicole Jarrett on 10-13-2022 Albumin BCG dye [Mass/Vol] 4.7 g/dL 3.5-5.7 [facility] Alkaline phosphatase [Enzyma tic activity/volume] in Serum or PlasmaOrdered By: Nicole Jarrett on 10-13-2022 ALP [Catalytic activity/Vol] 82 U/L 34-104 [facility] Aspartate aminotransferase [ Enzymatic activity/volume] in Serum or PlasmaOrdered By: Nicole Jarrett on 10-13-2022 AST [Catalytic activity/Vol] 23 U/L 13-39 [facility] Basophils Auto (Bld) [#/Vol] Ordered By: Nicole Jarrett on 10-13-2022 Basophils (Bld) [#/Vol] 0.0 10*3/uL 0.0-0.2 [facility] Basophils/100 WBC Auto (Bld) Ordered By: Nicole Jarrett on 10-13-2022 Basophils/100 WBC (Bld) 0.3 % . [facility] Bilirubin.total [Mass/volume ] in Serum or PlasmaOrdered By: Nicole Jarrett on 10-13-2022 Bilirubin [Mass/Vol] 0.3 mg/dL 0.3-1.0 [facility] C reactive protein [Mass/vol ume] in Serum or PlasmaOrdered By: Nicole Jarrett on 10-13-2022 CRP [Mass/Vol] < 0.5 mg/dL 0.0-0.5 [facility] Calcium [Mass/volume] in Ser um or PlasmaOrdered By: Nicole Jarrett on 10-13-2022 Calcium [Mass/Vol] 9.3 mg/dL 8.6-10.3 [facility] Carbon dioxide, total [Moles /volume] in Serum or PlasmaOrdered By: Nicole Jarrett on 10-13-2022 CO2 [Moles/Vol] 26.3 mmol/L 21.0-31.0 [facility] Chloride [Moles/volume] in S laura or PlasmaOrdered By: Nicole Jarrett on 10-13-2022 Chloride [Moles/Vol] 105 mmol/L 98-107 [facility] Creatinine [Mass/volume] in Serum or PlasmaOrdered By: Nicole Jarrett on 10-13-2022 Creatinine [Mass/Vol] 1.03 mg/dL 0.70-1.30 [facility] Eosinophils Auto (Bld) [#/Vo l]Ordered By: Nicole Jarrett on 10-13-2022 Eosinophils (Bld) [#/Vol] 0.2 10*3/uL 0.0-0.45 [facility] Eosinophils/100 WBC Auto (Bl d)Ordered By: Nicole Jarrett on 10-13-2022 Eosinophils/100 WBC (Bld) 2.9 % . [facility] Erythrocyte distribution wid th Auto (RBC) [Ratio]Ordered By: Nicole Jarrett on 10-13-2022 Erythrocyte distribution width (RBC) [Ratio] 13.7 % 12.0-14.8 [facility] Globulin Calc (S) [Mass/Vol] Ordered By: Nicole Jarrett on 10-13-2022 Globulin (S) [Mass/Vol] 2.7 g/dL [facility] Glucose [Mass/volume] in Ser um or PlasmaOrdered By: Nicole Jarrett on 10-13-2022 Glucose [Mass/Vol] 88 mg/dL 70-100 [facility] Comment on above: ADA recommended refe rence rangeRandom Glucose Reference Range is dependent on time and content of last meal. Glucose of more than 200 mg/dL in a nonstressed, ambulatory subject supports the diagnosis of Diabetes Mellitus. HIV 1 and HIV-2 antibody ass ay with HIV-1 p24 antigen detectionOrdered By: Nicole Jarrett on 04-19-2023 HIV 1+2 Ab+HIV1 p24 Ag IA Ql Non-Reactive Non Reactive [facility] Comment on above: HIV NegativeHIV-1/HI V-2 antibodies and HIV-1 p24 antigen were NOTdetected. There is no laboratory evidence of HIV infection.Performed at: [facility] [facility] [address] [id number] Director: Ricardo Osorio PhD, Phone: [phone] Hematocrit Auto (Bld) [Volum e fraction]Ordered By: Nicole Jarrett on 10-13-2022 Hematocrit (Bld) [Volume fraction] 46.4 % 38.8-50.0 [facility] Hemoglobin [Mass/volume] in BloodOrdered By: Nicole Jarrett on 10-13-2022 Hemoglobin (Bld) [Mass/Vol] 15.9 g/dL 13.0-17.0 [facility] Hepatitis A virus Ab [Presen ce] in Serum by ImmunoassayOrdered By: Nicole Jarrett on 10-13-2022 HAV Ab IA Ql (S) Positive Negative [facility] Comment on above: Performed at: [facility] [address] [id number] Director: Ricardo Osorio PhD, Phone: [phone] Hepatitis B virus surface Ag [Presence] in Serum or Plasma by ImmunoassayOrdered By: Nicole Jarrett on 10-13-2022 HBV surface Ag IA Ql Negative Negative [facility] Hepatitis C virus IgG Ab [Pr esence] in Serum or Plasma by ImmunoassayOrdered By: Nicole Jarrett on 10-13-2022 HCV IgG IA Ql Non-Reactive Non Reactive [facility] Leukocytes [#/volume] correc jayleen for nucleated erythrocytes in Blood by Automated counOrdered By: Nicole Jarrett on 10-13-2022 WBC corrected for nucl RBC Auto (Bld) [#/Vol] 8.0 10*3/uL 4.1-10.5 [facility] Lymphocytes Auto (Bld) [#/Vo l]Ordered By: Nicole Jarrett on 10-13-2022 Lymphocytes (Bld) [#/Vol] 1.7 10*3/uL 1.00-4.8 [facility] Lymphocytes/100 WBC Auto (Bl d)Ordered By: Nicole Jarrett on 10-13-2022 Lymphocytes/100 WBC (Bld) 21.3 % . [facility] MCH Auto (RBC) [Entitic mass ]Ordered By: Nicole Jarrett on 10-13-2022 MCH (RBC) [Entitic mass] 30.0 pg 27.5-35.2 [facility] MCHC Auto (RBC) [Mass/Vol]Or dered By: Nicole Jarrett on 10-13-2022 MCHC (RBC) [Mass/Vol] 34.4 g/dL 32.5-35.6 [facility] MCV Auto (RBC) [Entitic vol] Ordered By: Nicole Jarrett on 10-13-2022 MCV (RBC) [Entitic vol] 87.2 fL 83.5-101 [facility] Monocytes Auto (Bld) [#/Vol] Ordered By: Nicole Jarrett on 10-13-2022 Monocytes (Bld) [#/Vol] 0.6 10*3/uL 0.0-0.8 [facility] Monocytes/100 WBC Auto (Bld) Ordered By: Nicole Jarrett on 10-13-2022 Monocytes/100 WBC (Bld) 7.1 % . [facility] Neutrophils Auto (Bld) [#/Vo l]Ordered By: Nicole Jarrett on 10-13-2022 Neutrophils (Bld) [#/Vol] 5.5 10*3/uL 1.8-7.7 [facility] Neutrophils/100 WBC Auto (Bl d)Ordered By: Nicole Jarrett on 10-13-2022 Neutrophils/100 WBC (Bld) 68.4 % . [facility] No Panel InformationOrdered By: Nicole Jarrett on 10-13-2022 Estimated GFR (CKD-EPI) > 60.0 mL/Min [facility] Hepatitis B Core Total Antibody Negative Negative [facility] Hepatitis C Interpretation See comment . [facility] Comment on above: Not infected with HC V unless early or acute infection issuspected (which may be delayed in an immunocompromisedindividual), or other evidence exists to indicate HCVinfection. Hepatitis C RNA Quantitative N/A [facility] Creatinine Clearance (Chem N/A [facility] Nucleated erythrocytes [Pres ence] in Blood by Automated countOrdered By: Nicole Jarrett on 10-13-2022 Nucleated RBC Auto Ql (Bld) 0.1 /100{WBC} 0-0.5 [facility] Platelet mean volume Auto (B ld) [Entitic vol]Ordered By: Nicole Jarrett on 10-13-2022 Platelet mean volume (Bld) [Entitic vol] 9.0 fL 6.6-10.1 [facility] Platelets Auto (Bld) [#/Vol] Ordered By: Nicole Jarrett on 10-13-2022 Platelets (Bld) [#/Vol] 215 10*3/uL 150-450 [facility] Potassium [Moles/volume] in Serum or PlasmaOrdered By: Nicole Jarrett on 10-13-2022 Potassium [Moles/Vol] 4.4 mmol/L 3.5-5.1 [facility] Protein [Mass/volume] in Ser um or PlasmaOrdered By: Nicole Jarrett on 10-13-2022 Protein [Mass/Vol] 7.4 g/dL 6.4-8.9 [facility] RBC Auto (Bld) [#/Vol]Ordere d By: Nicole Jarrett on 10-13-2022 RBC (Bld) [#/Vol] 5.32 10*6/uL 3.90-5.60 [facility] Reagin Ab [Presence] in Seru m by RPROrdered By: Nicole Jarrett on 10-13-2022 Reagin Ab RPR Ql (S) Non-Reactive Non Reactive [facility] Comment on above: Performed at: [address] [id number] Director: Ricardo Osorio PhD, Phone: [phone] Serum hepatitis B virus surf nettie antibody detectionOrdered By: Nicole Jarrett on 10-13-2022 HBV surface Ab Ql (S) Non-Reactive . [facility] Comment on above: Non Reactive: Incons istent with immunity, less than 10 mIU/mL Reactive: Consistent with immunity, greater than 9.9 mIU/mL Serum or plasma albumin/glob ulin mass ratioOrdered By: Nicole Jarrett on 10-13-2022 Albumin/Globulin [Mass ratio] 1.7 {ratio} [facility] Serum or plasma anion gap de terminationOrdered By: Nicole Jarrett on 10-13-2022 Anion gap [Moles/Vol] 13.1 mmol/L 6.0-15.0 [facility] Sodium [Moles/volume] in Ser um or PlasmaOrdered By: Nicole Jarrett on 10-13-2022 Sodium [Moles/Vol] 140 mmol/L 136-145 [facility] Thyrotropin [Units/volume] i n Serum or PlasmaOrdered By: Nicole Jarrett on 10-13-2022 TSH Qn 1.31 m[IU]/L 0.45-5.33 [facility] Urea nitrogen [Mass/volume] in Serum or PlasmaOrdered By: Nicole Jarrett on 10-13-2022 Urea nitrogen [Mass/Vol] 14 mg/dL 7-25 [facility] Vitamin D+Metabolites [Mass/ volume] in Serum or PlasmaOrdered By: Nicole Jarrett on 10-13-2022 Vitamin D+Metabolites [Mass/Vol] 32.5 ng/mL 30-100 [facility] Comment on above: VITAMIN D STATUS 25( [place])VITAMIN D RANGE (ng/mL) Deficient <20 Insufficient 20 to <30Sufficient 30 to 100Reference: Jose MF,Serenity COTTRELL, Jc HARRELL, et al. Evaluation,treatment, and prevention of vitamin D deficiency; an Endocrine Society clinical practice guideline. JCEM. 2010; 96(7):1911-30. WBC Auto (Bld) [#/Vol]Ordere d By: Nicole Jarrett on 10-13-2022 WBC (Bld) [#/Vol] 8.0 10*3/uL 4.1-10.5 [facility] ALCOHOL (ETHYL)on 04-25-2022 ALCOHOL (ETHYL) Normal 0-0.010 [facility] Comment on above: Result Comment: <0.0 10 Performed at [address] [address] Performed By: #### E BENNETT #### [facility] [address] [address] CBC with Diffon 04-25-2022 AB IMMATURE NEUT 0.01 K/UL Normal 0.0-0.[address] [facility] Comment on above: Performed By: #### C BCD #### [facility] [address] [address] ABS BASO 0.02 K/UL Normal 0.00-0.22 [facility] Comment on above: Performed By: #### C BCD #### [facility] [address] [address] ABS EOS 0.14 K/UL Normal 0-0.45 [facility] Comment on above: Performed By: #### C BCD #### [address] [address] ABS NEUTROPHILS 4.33 K/UL Normal 1.5-8.0 [facility] Comment on above: Performed By: #### C BCD #### [address] [address] ABS.NEUT.CALCULATED 4.33 K/UL Normal [facility] Comment on above: Result Comment: Perf ormed at [address] [place] [address] Performed By: #### C BCD #### [address] [address] Basophils/100 WBC (Bld) 0.30 % Normal 0-1 [facility] Comment on above: Performed By: #### C BCD #### [facility] [address] [address] DIFF TYPE AUTO DIFF Normal [facility] Comment on above: Performed By: #### C BCD #### [facility] [address] [address] Eosinophils/100 WBC (Bld) 2.20 % Normal 0-3 [facility] Comment on above: Performed By: #### C BCD #### [address] [address] [place] [address] Erythrocyte distribution width (RBC) [Ratio] 12.8 % Normal 11.7-15.0 [facility] Comment on above: Performed By: #### C BCD #### [address] [place] [address] Hematocrit (Bld) [Volume fraction] 50.6 % High 41-50 [facility] Comment on above: Performed By: #### C BCD #### [address] [address] [place] [address] Hemoglobin (Bld) [Mass/Vol] 16.9 g/dL High 13.5-16.5 [facility] Comment on above: Performed By: #### C BCD #### [address] [address] [place] [address] Lymphocytes (Bld) [#/Vol] 1.42 10*3/uL Normal 1.2-3.2 [facility] Comment on above: Performed By: #### C BCD #### [address] [address] [place] [address] Lymphocytes/100 WBC (Bld) 22.50 % Normal 20-40 [facility] Comment on above: Performed By: #### C BCD #### [address] [address] [place] [address] MCH (RBC) [Entitic mass] 29.0 pg Normal 26-34 [facility] Comment on above: Performed By: #### C BCD #### [address] [address] [place] [address] MCHC 33.4 % Normal 31-37 [facility] Comment on above: Performed By: #### C BCD #### [address] [address] [place] [address] MCV (RBC) [Entitic vol] 86.8 fL Normal 80-100 [facility] Comment on above: Performed By: #### C BCD #### [address] [address] [place] [address] MEAN PLT VOL 10.9 CU Normal 7.0-12.6 [facility] Comment on above: Performed By: #### C BCD #### [facility] [address] [place] [address] Monocytes (Bld) [#/Vol] 0.39 10*3/uL Normal 0-0.8 [facility] Comment on above: Performed By: #### C BCD #### [facility] [address] [place] [address] Monocytes/100 WBC (Bld) 6.20 % Normal 0-8 [facility] Comment on above: Performed By: #### C BCD #### [address] [address] [place] [address] Neutrophils/100 WBC (Bld) 0.20 % Normal 0.0-1.0 [facility] Comment on above: Performed By: #### C BCD #### [address] [address] [place] [address] Neutrophils/100 WBC (Bld) 68.60 % Normal 50-70 [facility] Comment on above: Performed By: #### C BCD #### [address] [address] [place] [address] NRBC'S 0 /100 WBC Normal 0 [facility] Comment on above: Performed By: #### C BCD #### [address] [address] [place] [address] Platelets (Bld) [#/Vol] 223 10*3/uL Normal 150-450 [facility] Comment on above: Performed By: #### C BCD #### [address] [address] [place] [address] RBC (Bld) [#/Vol] 5.83 10*6/uL High 4.5-5.5 [facility] Comment on above: Performed By: #### C BCD #### [address] [address] [place] [address] RDW-SD 40.3 FL Normal 37.0-54.0 [facility] Comment on above: Performed By: #### C BCD #### [address] [address] [place] [address] WBC (Bld) [#/Vol] 6.3 10*3/uL Normal 4.5-11.0 [facility] Comment on above: Performed By: #### C BCD #### [facility] [address] [place] [address] COMPREHENSIVE METABOLIC PANE Aleks 04-25-2022 Albumin [Mass/Vol] 4.5 g/dL Normal 3.5-5.0 [facility] Comment on above: Performed By: #### C MICROGRINDER OPERATOR #### [facility] [address] [address] [place] [address] Albumin/Globulin [Mass ratio] 1.7 {ratio} Normal 1.5-3.0 [facility] Comment on above: Performed By: #### C MICROGRINDER OPERATOR #### [facility] [address] [address] [place] [address] ALP [Catalytic activity/Vol] 106 U/L Normal 35-125 [facility] Comment on above: Performed By: #### C MICROGRINDER OPERATOR #### [address] [address] [place] [address] ALT [Catalytic activity/Vol] 16 U/L Normal 5-40 [facility] Comment on above: Performed By: #### C MICROGRINDER OPERATOR #### [facility] [address] [address] [place] [address] Anion gap [Moles/Vol] 10 mmol/L Normal 0-19 [facility] Comment on above: Performed By: #### C MICROGRINDER OPERATOR #### [address] [address] [place] [address] AST [Catalytic activity/Vol] 16 U/L Normal 5-40 [facility] Comment on above: Performed By: #### C MICROGRINDER OPERATOR #### [facility] [address] [place] [address] Bilirubin [Mass/Vol] 0.3 mg/dL Normal 0.1-1.2 [facility] Comment on above: Performed By: #### C MICROGRINDER OPERATOR #### [facility] [address] [address] [place] [address] Calcium [Mass/Vol] 9.8 mg/dL Normal 8.5-10.4 [facility] Comment on above: Performed By: #### C MICROGRINDER OPERATOR #### [facility] [address] [address] [place] [address] Chloride [Moles/Vol] 103 mmol/L Normal 97-107 [facility] Comment on above: Performed By: #### C MICROGRINDER OPERATOR #### [facility] [address] [address] [place] [address] CO2 [Moles/Vol] 28 mmol/L Normal 24-31 [facility] Comment on above: Performed By: #### C MICROGRINDER OPERATOR #### [address] [address] [place] [address] Creatinine [Mass/Vol] 1.1 mg/dL Normal 0.4-1.6 [facility] Comment on above: Performed By: #### C MICROGRINDER OPERATOR #### [address] [address] [place] [address] ESTIMATED GFR 100 mL/min/1.73 m2 Normal [facility] Comment on above: Result Comment: Perf ormed at [address] [place] [address] [place] [address] Performed By: #### C MICROGRINDER OPERATOR #### [address] [address] [place] [address] Globulin (S) [Mass/Vol] 2.6 g/dL Normal 1.9-3.7 [facility] Comment on above: Performed By: #### C MICROGRINDER OPERATOR #### [address] [address] [place] [address] Glucose [Mass/Vol] 111 mg/dL High 65-99 [facility] Comment on above: Performed By: #### C MICROGRINDER OPERATOR #### [address] [address] [place] [address] Potassium [Moles/Vol] 3.9 mmol/L Normal 3.4-5.1 [facility] Comment on above: Performed By: #### C MICROGRINDER OPERATOR #### [facility] [address] [address] [place] [address] Protein [Mass/Vol] 7.1 g/dL Normal 5.9-7.9 [facility] Comment on above: Performed By: #### C MICROGRINDER OPERATOR #### [facility] [address] [address] [place] [address] Sodium [Moles/Vol] 141 mmol/L Normal 133-145 [facility] Comment on above: Performed By: #### C MICROGRINDER OPERATOR #### [facility] [address] [place] [address] Urea nitrogen [Mass/Vol] 15 mg/dL Normal 8-25 [facility] Comment on above: Performed By: #### C MICROGRINDER OPERATOR #### [facility] [address] [place] [address] Urea nitrogen/Creatinine [Mass ratio] 13.6 mg/mg Normal 8-21 [facility] Comment on above: Performed By: #### C MICROGRINDER OPERATOR #### [facility] [id number] [place] [address] EKGon 04-25-2022 Electrocardiogram EKG Ventricular Rate : 112 BPM Atrial Rate : 112 BPM P-R Interval : 134 ms QRS Duration : 78 ms Q-T Interval : 302 ms QTC Calculation(Bazett) : 412 ms Calculated P [place] : 81 degrees Calculated R [place] : 103 degrees Calculated T [place] : 73 degrees Diagnosis:Sinus tachycardia Biatrial enlargement Rightward axis Pulmonary disease pattern RSR' or QR pattern in V1 suggests right ventricular conduction delay ST elevation, consider early repolarization, pericarditis, or injury Abnormal ECG When compared with ECG of 26-MAR-2020 23:11, Vent. rate has increased BY 52 BPM Confirmed by ENZO NAM ([id number]) on 04/30/2022 12:14:14 PM Normal [facility] Laboratoryon 04-25-2022 Drug screen comment (U) [Interp] Urine Drug Comment These Toxicological Screening Tests provide unconfirmed qualitative measurements to aid in treatment and diagnosis in cases of drug use or overdose. This test is used only for medical purposes. A positive result does not indicate or measure intoxication. For specific test performance or pathologist consultation, please contact the Laboratory. The following threshold concentrations are used for these analyses. Values at or above the threshold concentration are reported as Positive. Values below the threshold are reported as negative. Drug Screening Threshold ------ THC/CANNABINOIDS 50 ng/ml METHADONE 300 ng/ml COCAINE METABOLITES 300 ng/ml BENZODIAZEPINE 300 ng/ml PCP 25 ng/ml OPIATE 300 ng/ml AMPHETAMINE/ECSTASY 1000 ng/ml BARBITURATE 200 ng/ml OXYCODONE 100 ng/ml (Reference Range: not available) [facility] - Chemistry and C hemistry - challengeon 04-25-2022 Albumin [Mass/Vol] Albumin 4.5 GM/DL (3.5-5.0 GM/DL) 3.5 - 5.0 GM/DL [facility] [place] Albumin/Globulin [Mass ratio] Albumin Globulin Ratio 1.7 RATIO (1.5-3.0 RATIO) 1.5 - 3.[address] [facility] ALP (Bld) [Catalytic activity/Vol] Alk Phosphatase 106 U/L (35-125 U/L) 35 - 125 U/L [facility] ALT [Catalytic activity/Vol] ALT 16 U/L (5-40 U/L) 5 - 40 U/L [facility] [place] Anion gap [Moles/Vol] Anion Gap 10 MMOL/ L (0-19 MMOL/L) 0 - 19 MMOL/L [facility] [place] AST [Catalytic activity/Vol] AST 16 U/L (5-40 U/L) 5 - 40 U/L [facility] [place] Bilirubin [Mass/Vol] Total Bilirubin 0.3 MG/DL (0.1-1.2 MG/DL) 0.1 - 1.2 MG/DL [facility] [place] Calcium [Mass/Vol] Calcium 9.8 MG/DL (8.5-10.4 MG/DL) 8.5 - 10.4 MG/DL [facility] [place] Chloride [Moles/Vol] Chloride 103 MMOL/L (97-107 MMOL/L) 97 - 107 MMOL/L [facility] [place] CO2 [Moles/Vol] Carbon Dioxide 28 MMOL/L (24-31 MMOL/L) 24 - 31 MMOL/L [facility] [place] Creatinine [Mass/Vol] Creatinine R 1.1 MG/DL (0.4-1.6 MG/DL) 0.4 - 1.6 MG/DL [facility] GFR/1.73 sq M.predicted MDRD (S/P/Bld) [Vol rate/Area] EGFR 100 mL/min/1.73 m2 (Reference Range: not available) Performed at [address] [address] [facility] [place] Globulin (S) [Mass/Vol] Globulin 2.6 G/D L (1.9-3.7 G/DL) 1.9 - 3.7 G/DL [facility] [place] Glucose [Mass/Vol] Glucose 111 MG/DL H (65-99 MG/DL) High 65 - 99 MG/DL [facility] [place] Potassium [Moles/Vol] Potassium R 3.9 MMOL/L (3.4-5.1 MMOL/L) 3.4 - 5.1 MMOL/L [facility] [place] Protein [Mass/Vol] Total Protein 7.1 G/DL (5.9-7.9 G/DL) 5.9 - 7.9 G/DL [facility] [place] Sodium [Moles/Vol] Sodium 141 MMOL/L (133-145 MMOL/L) 133 - 145 MMOL/L [place] Urea nitrogen [Mass/Vol] BUN 15 MG/DL (8-25 MG/DL) 8 - 25 MG/DL [facility] [place] Urea nitrogen/Creatinine [Mass ratio] BUN Creatinine Ratio 13.6 RATIO (8-21 RATIO) 8 - 21 RATIO [facility] - Drug toxicology on 04-25-2022 Amphetamines Screen method >1000 ng/mL Ql (U) Urine Amphetamine NEGATIVE (Reference Range: not available) [facility] Barbiturates Screen method >300 ng/mL Ql (U) Urine Barbiturate NEGATIVE (Reference Range: not available) [facility] Benzodiazepines Screen method >300 ng/mL Ql (U) Urine Benzodiazepine NEGATIVE (Reference Range: not available) [facility] Benzoylecgonine Screen method >300 ng/mL Ql (U) Urine Cocaine Metabolites NEGATIVE (Reference Range: not available) [facility] Cannabinoids Screen method >50 ng/mL Ql (U) THC/Cannabinoids NEGATIVE (Reference Range: not available) [facility] Ethanol [Mass/Vol] Alcohol <0.010 Performed at [address] [address] GM/DL (0-0.010 GM/DL) 0 - 0.010 GM/DL [facility] Methadone Ql (U) Urine Methadone NEGATIVE (Reference Range: not available) [facility] Opiates Screen method >300 ng/mL Ql (U) Urine Opiate NEGATIVE (Reference Range: not available) [facility] oxyCODONE Ql (U) Urine Oxycodone NEGATIVE Performed at [address] [address] (Reference Range: not available) [facility] Phencyclidine Screen method >25 ng/mL Ql (U) Urine PCP NEGATIVE (Reference Range: not available) [facility] - Hematology and Cell countson 04-25-2022 Basophils (Bld) [#/Vol] Abs Baso 0.02 K/ UL (0.00-0.22 K/UL) 0.00 - 0.22 K/UL [facility] Basophils/100 WBC (Bld) Basophil 0.30 % (0-1 %) 0 - 1 % [facility] Differential cell count method Nom (Bld) Diff Type AUTO DIFF (Reference Range: not available) [facility] Eosinophils (Bld) [#/Vol] Abs Eos 0.14 K/UL (0-0.45 K/UL) 0 - 0.45 K/UL [facility] Eosinophils/100 WBC (Bld) Eosinophil 2.20 % (0-3 %) 0 - 3 % [facility] Erythrocyte distribution width (RBC) [Entitic vol] RDW SD 40.3 FL (37.0-54.0 FL) 37.0 - 54.0 FL [facility] Erythrocyte distribution width (RBC) [Ratio] RDW CV 12.8 % (11.7-15.0 %) 11.7 - 15.0 % [facility] Hematocrit (Bld) [Volume fraction] HCT 50.6 % H (41-50 %) High 41 - 50 % [facility] Hemoglobin (Bld) [Mass/Vol] HGB 16.9 GM/DL H (13.5-16.5 GM/DL) High 13.5 - 16.5 GM/DL [facility] Immature granulocytes (Bld) [#/Vol] Abs Imm Neut 0.01 K/UL (0.0-0.1 K/UL) 0.0 - 0.1 K/UL [facility] Lymphocytes (Bld) [#/Vol] Abs Lymph 1.42 K/UL (1.2-3.2 K/UL) 1.2 - 3.2 K/UL [facility] Lymphocytes/100 WBC (Bld) Lymphocyte 22.50 % (20-40 %) 20 - 40 % [facility] MCH (RBC) [Entitic mass] MCH 29.0 PG (26-34 PG) 26 - 34 PG [facility] MCHC (RBC) [Mass/Vol] MCHC 33.4 % (31-37 %) 31 - 37 % [facility] MCV (RBC) [Entitic vol] MCV 86.8 FL (80- 100 FL) 80 - 100 FL [facility] Monocytes (Bld) [#/Vol] Abs Emery 0.39 K/ UL (0-0.8 K/UL) 0 - 0.8 K/UL [facility] Monocytes/100 WBC (Bld) Monocyte 6.20 % (0-8 %) 0 - 8 % [facility] [place] Neutrophils (Bld) [#/Vol] Abs.Neut.Calculated 4.33 K/UL (Reference Range: not available) Performed at [address] [address] [facility] Neutrophils (Bld) [#/Vol] Abs Neut 4.33 K/UL (1.5-8.0 K/UL) 1.5 - 8.0 K/UL [facility] [place] Neutrophils.immature/10 0 WBC (Bld) Immature Neut % 0.20 % (0.0-1.0 %) 0.0 - 1.0 % [place] Nucleated RBC/100 WBC (Bld) [Ratio] NRBCs 0 /100 WBC (0 /100 WBC) [facility] [place] Platelet mean volume (Bld) [Entitic vol] MPV 10.9 CU (7.0-12.6 CU) 7.0 - 12.6 CU [place] Platelets (Bld) [#/Vol] PLT 223 K/UL (150-450 K/UL) 150 - 450 K/UL [facility] [place] RBC (Bld) [#/Vol] RBC 5.83 M/UL H (4.5-5.5 M/UL) High 4.5 - 5.5 M/UL [facility] [place] Segmented neutrophils/100 WBC (Bld) Granulocyte 68.60 % (50-70 %) 50 - 70 % [facility] WBC (Bld) [#/Vol] WBC 6.3 K/UL (4.5-11.0 K/UL) 4.5 - 11.0 K/UL [facility] - Microbiology an d Antimicrobial susceptibilityon 04-25-2022 FLUAV RNA JERRELL+probe Ql (Nph) FLU A by PCR NEGATIVE (Reference Range: not available) [facility] FLUBV RNA JERRELL+probe Ql (Nph) FLU B by PCR NEGATIVE (Reference Range: not available) [facility] SARS-CoV-2 (COVID-19) RNA JERRELL+probe Ql (Unsp spec) SARS-CoV-2 by PCR NEGATIVE (NEG ) [facility] SARS-CoV-2,INFLUENZA A/B NUC LEIC ACID TESTon 04-25-2022 EUA DISCLAIMER [facility] Comment on above: Result Comment: This test has been authorized by FDA under an EUA for use by CLIA Certified Moderate and High-Complexity laboratories and Point of Care (POC), i.e., in patient care settings operating under a CLIA Certificate of Waiver, Certificate of Compliance, or Certificate of Accreditation. This test has been authorized only for the simultaneous qualitative detection and differentiation of nucleic acid from SARS-CoV-2, influenza A virus, and influenza B virus and not for any other viruses or pathogens. This test is only authorized for the duration of the declaration that circumstances exist justifying the authorization of emergency use of in vitro diagnostic tests for the detection and/or diagnosis of COVID-19, unless the authorization is terminated or revoked sooner. Performed at [place] [address] Performed By: #### F LUCOV #### [facility] [place] [address] FLU A by PCR Negative [facility] Comment on above: Performed By: #### F LUCOV #### [facility] [place] [address] FLU B by PCR Negative [facility] Comment on above: Performed By: #### F LUCOV #### [facility] [place] [address] SARS-CoV-2 (COVID-19) RNA JERRELL+probe Ql (Unsp spec) Negative Normal NEG [facility] Comment on above: Performed By: #### F LUCOV #### [facility] [address] [place] [address] URINE DRUG SCREENon 04-25-20 AMPHETAMINE/ECSTASY Negative [facility] Comment on above: Performed By: #### U DS #### [facility] [address] [place] [address] BARBITURATE Negative [facility] Comment on above: Performed By: #### U DS #### [facility] [address] [place] [address] BENZODIAZEPINE Negative [facility] Comment on above: Performed By: #### U DS #### [facility] [address] [place] [address] COCAINE METABOLITES Negative [facility] Comment on above: Performed By: #### U DS #### [facility] [address] [place] [address] METHADONE Negative [facility] Comment on above: Performed By: #### U DS #### [facility] [address] [place] [address] OPIATE Negative [facility] Comment on above: Performed By: #### U DS #### [facility] [address] [place] [address] OXYCODONE [facility] Comment on above: Result Comment: NEGA TIVE Performed at [facility] [address] [facility] [place] [address] Performed By: #### U DS #### [facility] [address] [place] [address] PCP Negative [facility] Comment on above: Performed By: #### U DS #### [facility] [address] [place] [address] THC/CANNABINOIDS Negative [facility] Comment on above: Performed By: #### U DS #### [facility] [address] [place] [address] COMMENT [facility] Comment on above: Result Comment: Thes e Toxicological Screening Tests provide unconfirmed qualitative measurements to aid in treatment and diagnosis in cases of drug use or overdose. This test is used only for medical purposes. A positive result does not indicate or measure intoxication. For specific test performance or pathologist consultation, please contact the Laboratory. The following threshold concentrations are used for these analyses. Values at or above the threshold concentration are reported as Positive. Values below the threshold are reported as negative. Drug Screening Threshold THC/CANNABINOIDS 50 ng/ml METHADONE 300 ng/ml COCAINE METABOLITES 300 ng/ml BENZODIAZEPINE 300 ng/ml PCP 25 ng/ml OPIATE 300 ng/ml AMPHETAMINE/ECSTASY 1000 ng/ml BARBITURATE 200 ng/ml OXYCODONE 100 ng/ml Performed By: #### U #### [facility] [id number] [place] [id number] Blood Pressure Cuff Sizeon 0 11-05-2021 Fall risk assessment a) No falls within the last year [facility] Work Phone: Tobacco use status CP b) No M [facility] Work Phone: Blood Pressure Cuff Size Adult [facility] Work Phone: CNOVtao 08-25-2021 CNOV Office Visit ([facility]) CAMERON TERESA ([id number]) 1 M Date Time Provider Department 08/25/21 11:30 AM ALEKSANDRA ROSS During your visit today, we recorded the following information about you: Temperature Pulse Respiration Blood pressure 99.2 degrees 87/minute 18/minute 120/68 Weight Height 84.6 kg 1.965 m Aleksandra Ross MD 08/30/2021 8:58 PM Signed PEDIATRIC RHEUMATOLOGY FOLLOW UP PROGRESS NOTE PRIMARY CARE PHYSICIAN: Jaxson Starks DO It was my pleasure seeing Cameron for follow up in Pediatric Rheumatology clinic today. Cameron was accompanied by his mother to today's visit. History was obtained from Cameron. My final recommendations will be communicated back to Jaxson Starks DO and/or referring physician by way of shared medical record or letter via US mail. Chief complaint: follow up toe discoloration PROBLEM LIST: Toe discoloration bilaterally LAST VISIT: 07/28/21 HPI: 16 year old young man with bilateral toe discoloration here for follow up. Cameron stated that he thinks his toes are doing better but also reported that he has not been looking at them. They are sometimes sensitive when he gets up in the morning. He denied symptoms that are interfering with his sleep. They are no longer pruritic. He denied similar symptoms in his fingers. He denied infections since his last visit. He is fatigued. He has occasional abdominal pain. He denied other gastrointestinal symptoms. He is getting occasional headaches. REVIEW OF SYSTEMS: GENERAL: Fever - No Chills - No Night sweats - No Anorexia - No Weight loss - No Change in energy level - Yes Lymphadenopathy - No Infections since last visit: No HEAD, EYES: Dry eyes - No Eye pain - No Eye redness - No Eye sensitivity to light - No Visual loss - No EARS, NOSE, AND THROAT: Mouth ulcers - No Nasal ulcers - No Dry mouth - No Nosebleeds - No CARDIOVASCULAR: Chest pain - No Chest tightness- No Color changes in fingers or toes - No PULMONARY: Cough - No Shortness of breath - No Wheeze - No Hemoptysis - No Orthopnea - No GASTROINTESTINAL: Abdominal pain - Yes Nausea - No Vomiting - No Diarrhea - No Constipation - No Blood in stool - No Black stool - No Heartburn/Reflux - No Difficulty swallowing - No GENITOURINARY: Pain on urination - No Blood in urine - No Penile or vaginal ulcers - No ENDOCRINE: Abnormal menses - N/A Heat or cold intolerance - No MUSCULOSKELETAL: Joint pain - No Joint swelling - No Joint redness - No Joint warmth - No Morning stiffness - No Muscle aches - No Weakness - No SKIN: Facial rashes - No Rash - No Urticaria - No Nail pits - No Sensitivity to light - No Hair loss or thinning - No HEMATOLOGIC: Easy bruising or bleeding - No Petechiae - No NEUROLOGIC: Headache - Yes Numbness/tingling - No Abnormal movements - No Memory impairment - No Change in mental status/concentration - No PSYCHOLOGICAL: Depression - Yes Anxiety - Yes SLEEP: Sleep disturbance - No Non-restorative sleep - No Seasonal influenza vaccine - Yes Pneumococcal vaccine - Yes with last dose October 2004 All other systems reviewed and negative for complaint - Yes PAST MEDICAL HISTORY: PAST MEDICAL HISTORY Diagnosis Date - Depression FAMILY HISTORY: Reviewed and unchanged from last visit SOCIAL HISTORY: Reviewed and unchanged from last visit MEDICATIONS: venlafaxine ER (EFFEXOR XR) 150 mg 24 hr capsule Take 1 capsule by mouth once daily. With a 37.5 mg capsule hydrOXYzine pamoate (VISTARIL) 50 mg capsule TAKE 2 CAPSULES BY MOUTH TWICE DAILY NEEDED melatonin 5 mg tablet Take 2 tablets by mouth daily at bedtime. venlafaxine ER (EFFEXOR XR) 37.5 mg 24 hr capsule Take 1 capsule by mouth daily with breakfast. ALL: ALLERGIES No Known Allergies IMMUNIZATIONS: UTD PHYSICAL EXAMINATION: Vital Signs: BP 120/68 (BP Site: Left Arm, BP Position: Sitting, BP Cuff Size: Regular Adult) Pulse 87 Temp 37.3 ?C (99.2 ?F) (Temporal) Resp 18 Ht 196.5 cm (6' 5.36 ) Wt 84.6 kg (186 lb 8 oz) SpO2 98% BMI 21.91 kg/m? Blood pressure percentiles are not available for patients who are 18 years or older. BMI: 50 %ile (Z= 0.01) based on CDC (Boys, 2-20 Years) BMI-for-age based on BMI available as of 08/25/2021. BSA: Body surface area is 2.15 meters squared. General: Well appearing, alert and pleasant young man in no acute distress. Skin: Scabbed lesions with mild erythema on dorsal toes bilaterally without drainage or evidence of infection. Lesions non-tender. Tip of left small toe with dark erythema concerning for prior ischemia. No rash. No Raynaud's. HEENT: Normocephalic, atraumatic. EOMI. PERRL. Ears normal in size, shape, and position. No saddle nose. No nasal or oral ulcers. Oropharynx clear without erythema or tonsill (more content not included)... Normal [facility] KIM by IFA w/Reflexon 2021 KIM Pattern Negative Normal [facility] Comment on above: Performed By: #### W SR, TSH, CBCDIF, FT4, CMP #### [facility] [address] [place], [place] [address] KIM Titer Negative Normal Negative [facility] Comment on above: Result Comment: Norm al range : negative at <1:80 serum dilution. Performed By: #### W SR, TSH, CBCDIF, FT4, CMP #### [facility] [address] [place] [address] Nuclear Ab IF (S) [Titer] Negative Normal Negative [facility] Comment on above: Result Comment: Norm al range : negative at <1:80 serum dilution. Approximately 6% of patients with connective tissue diseases with low positive EIA values are negative by IFA. Recommend follow-up with specific antinuclear antibodies if clinically indicated. Test performed using Indirect Fluorescence Immunoassay technology (IFA) using HEp-2 cells. Performed By: #### W SR, TSH, CBCDIF, FT4, CMP #### [place] [id number] [place], [place] [address] Anti-Neutro.Cyto.Abon 2021 ANCA Interpretation Equivocal staining seen on the ethanol (indirect immunofluorescence screen) slide but negative results on the follow up confirmatory testing. Anti-nuclear antibody test may be considered. Clinical correlation is required. Normal [facility] Comment on above: Performed By: #### W SR, TSH, CBCDIF, FT4, CMP #### [facility] [address] [place], [place] [address] C-ANCA Fluorescence Negative Normal Negative [facility] Comment on above: Performed By: #### W SR, TSH, CBCDIF, FT4, CMP #### [facility] [address] [place], [place] [address] Myeloperoxidase Ab <0.2 Normal <1.0 [facility] Comment on above: Performed By: #### W SR, TSH, CBCDIF, FT4, CMP #### [facility] [place] [id number] P-ANCA Fluorescence Negative Normal Negative [facility] Comment on above: Performed By: #### W SR, TSH, CBCDIF, FT4, CMP #### [place] [id number] Proteinase-3 Ab <0.2 Normal <1.0 [facility] Comment on above: Performed By: #### W SR, TSH, CBCDIF, FT4, CMP #### [place] [address] Staff Review Reviewed by Ricardo Burdick M.D., Ph.D ([id number]) [facility] Comment on above: Performed By: #### W SR, TSH, CBCDIF, FT4, CMP #### [place] [address] C-Reactive Proteinon 022 CRP [Mass/Vol] mg/L Normal <0.9 [facility] Comment on above: Performed By: #### W SR, TSH, CBCDIF, FT4, CMP #### [place] [address] CANCA Reflexon 07-28-2021 CANCA Reflex Billed for services performed [facility] Comment on above: Performed By: #### W SR, TSH, CBCDIF, FT4, CMP #### [place] [id number] CNOVon 07-28-2021 CNOV Office Visit ([facility]) CAMERON TERESA ([id number]) 1 M Date Time Provider Department 07/28/21 10:00 AM ALEKSANDRA ROSS During your visit today, we recorded the following information about you: Temperature Pulse Respiration Blood pressure 98.5 degrees 90/minute 18/minute 110/62 Weight Height 83.9 kg 1.956 m Aleksandra Ross MD 08/02/2021 9:41 PM Signed INITIAL OUTPATIENT VISIT PEDIATRIC RHEUMATOLOGY SERVICE DATE: 07/28/2021 REFERRING PHYSICIAN: Jaxson Starks [address] [place] [address] PRIMARY CARE PHYSICIAN: Jaxson Starks DO ACCOMPANIED BY: mother. CHIEF COMPLAINT: Patient presents with: Foot Pain : BILATERAL Foot - ongoing for about 1 month Joint Pain : BLATERALToe Derm Problem: Skin Discoloration - toes/foot History was obtained from: mother, patient and EMR Consultation requested by Dr. Bertram Starks for an opinion regarding toe discoloration and pain and my final recommendations will be communicated back to the requesting physician by way of shared medical record or letter via [place] mail. HPI: 15 year old boy referred by Dr. Bertram Starks for evaluation of toe discoloration and pain. Cameron and his mother reported that the symptoms have been ongoing for 2 months. The started acutely with swelling in his toes. He stated that his toes are sometimes slightly itchy and are red. The symptoms are greatest when he wakes up in the morning. He had COVID-19 6 months ago with cough, sore throat, headache and loss of taste and smell. He denied more recent known episodes of COVID-19. He denied episodes in which his feet were wet and cold. He has not noted color changes in his fingers or toes with the cold. He denied pain or swelling in other joints. He has not noted morning stiffness. His energy has been up and down. He has anxiety and depression. He has constipation and has hard stools with blood with every bowel movement. He denied abdominal pain or other gastrointestinal symptoms. He has occasional headaches. He denied recent infections. He is vaccinated for Influenza and COVID-19. REVIEW OF SYSTEMS: GENERAL: Fever - No Chills - No Night sweats - No Anorexia - No Weight loss - No Change in energy level - Yes Lymphadenopathy - No HEAD, EYES: Dry eyes - No Eye pain - No Eye redness - No Eye sensitivity to light - No Visual loss - No EARS, NOSE, AND THROAT: Mouth ulcers - No Nasal ulcers - No Dry mouth - No Nosebleeds - No CARDIOVASCULAR: Chest pain - No Chest tightness- No Color changes in fingers or toes - Toes red as per HPI but not related to the cold EXTREMITY: Edema (swelling) - No Intermittent claudication (pain with walking) - No PULMONARY: Cough - No Shortness of breath - No Wheeze - No Hemoptysis - No Orthopnea - No GASTROINTESTINAL: Abdominal pain - No Nausea - No Vomiting - No Diarrhea - No Constipation - Yes Blood in stool - Yes Black stool - No Heartburn/Reflux - No Difficulty swallowing - No GENITOURINARY: Pain on urination - No Blood in urine - No Penile or vaginal ulcers - No ENDOCRINE: Abnormal menses - N/A Heat or cold intolerance - No MUSCULOSKELETAL: Joint pain - Yes Joint swelling - Yes Joint redness - Yes Joint warmth - No Morning stiffness - No Muscle aches - No Weakness - No SKIN: Facial rashes - No Rash - No Urticaria - No Nail pits - No Sensitivity to light - No Hair loss or thinning - No HEMATOLOGIC: Easy bruising or bleeding - No Petechiae - No NEUROLOGIC: Headache - Yes Numbness/Tingling - No Abnormal movements - No Memory impairment - No Change in mental status/concentration - No PSYCHOLOGICAL: Depression - Yes Anxiety - Yes SLEEP: Sleep disturbance - No Non-restorative sleep - No All other systems reviewed and negative for complaint - Yes PAST MEDICAL HISTORY: PAST MEDICAL HISTORY Diagnosis Date - Depression FAMILY HISTORY: FAMILY HISTORY Problem Relation Age of Onset - No Known Problems Mother - No Known Problems Father - No Known Problems Brother - other (Waldenstrom's) Maternal Grandmother - Cancer Paternal Grandmother - No Known Problems Half-brother - No Known Problems Half-brother SOCIAL HISTORY: Social History Tobacco Use - Smoking status: Never Smoker - Smokeless tobacco: Never Used Vaping Use - Vaping Use: Former - Substances: Nicotine Substance Use Topics - Alcohol use: Not Currently - Drug use: Not Currently Types: Amphetamines, Crystal Meth Comment: 5 weeks ago Lives with his mother 10 yo brother and maternal grandparents. Is a senior in high school. Has two half siblings ages 9 and 5 who live with his father. CURRENT MEDICATIONS: hydrOXYzine pamoate (VISTARIL) 50 mg capsule TAKE 2 CAPSULES BY MOUTH TWICE DAILY NEEDED venlafaxine ER (EFFEXOR XR) 75 mg 24 hr capsule T (more content not included)... Normal [facility] PANCA Reflexon 07-28-2021 PANCA Reflex Billed for services performed Normal [facility] Comment on above: Performed By: #### W SR, TSH, CBCDIF, FT4, CMP #### [place] [id number] [place] [address] CBC and Differentialon 07-08 Abs Baso <0.03 Normal <0.11 [facility] Comment on above: Performed By: #### W SR, TSH, CBCDIF, FT4, CMP #### [place] [address] Abs Emery 0.59 k/uL Normal <0.87 [facility] Comment on above: Performed By: #### W SR, TSH, CBCDIF, FT4, CMP #### [place] [address] Abs Neut 2.87 k/uL Normal 1.45-7.50 [facility] Comment on above: Performed By: #### W SR, TSH, CBCDIF, FT4, CMP #### [place] [address] Absolute nRBC <0.01 Normal <0.01 [facility] Comment on above: Performed By: #### W SR, TSH, CBCDIF, FT4, CMP #### [place] [address] [place] [address] Basophils/100 WBC (Bld) 0.4 % Normal C [facility] Comment on above: Performed By: #### W SR, TSH, CBCDIF, FT4, CMP #### [place] [address] [place] [address] DTYPE Auto Diff Normal [facility] Comment on above: Performed By: #### W SR, TSH, CBCDIF, FT4, CMP #### [place] [id number] [place] [address] Eosinophils (Bld) [#/Vol] 0.08 10*3/uL Normal <0.46 [facility] Comment on above: Performed By: #### W SR, TSH, CBCDIF, FT4, CMP #### [place] [id number] [place] [address] Eosinophils/100 WBC (Bld) 1.5 % Normal [facility] Comment on above: Performed By: #### W SR, TSH, CBCDIF, FT4, CMP #### [phone] Erythrocyte distribution width (RBC) [Ratio] 12.9 % Normal 11.5-15.0 [facility] Comment on above: Performed By: #### W SR, TSH, CBCDIF, FT4, CMP #### [place] [address] [place] [address] Hematocrit (Bld) [Volume fraction] 48.3 % Normal 39.0-51.0 [facility] Comment on above: Performed By: #### W SR, TSH, CBCDIF, FT4, CMP #### [place] [id number] [place] [id number] Hemoglobin (Bld) [Mass/Vol] 16.2 g/dL Normal 13.0-17.0 [facility] Comment on above: Performed By: #### W SR, TSH, CBCDIF, FT4, CMP #### [place] [id number] [place] [address] Lymphocytes (Bld) [#/Vol] 1.61 10*3/uL Normal 1.00-4.00 [facility] Comment on above: Performed By: #### W SR, TSH, CBCDIF, FT4, CMP #### [place] [id number] [place] [address] Lymphocytes/100 WBC (Bld) 31.1 % Normal [facility] Comment on above: Performed By: #### W SR, TSH, CBCDIF, FT4, CMP #### [place] [address] MCH 28.8 pG Normal 26.0-34.0 [facility] Comment on above: Performed By: #### W SR, TSH, CBCDIF, FT4, CMP #### [place] [address] MCHC (RBC) [Mass/Vol] 33.5 g/dL Normal 30.5-36.0 [facility] Comment on above: Performed By: #### W SR, TSH, CBCDIF, FT4, CMP #### [place] [address] MCV (RBC) [Entitic vol] 85.8 fL Normal 80.0-100.0 C [facility] Comment on above: Performed By: #### W SR, TSH, CBCDIF, FT4, CMP #### [place] [address] Monocytes/100 WBC (Bld) 11.4 % Normal C [facility] Comment on above: Performed By: #### W SR, TSH, CBCDIF, FT4, CMP #### [place] [address] Neutrophils/100 WBC (Bld) 55.6 % Normal [facility] Comment on above: Performed By: #### W SR, TSH, CBCDIF, FT4, CMP #### [place] [address] NRBCs 0.0 /100 WBC Normal 0 [facility] Comment on above: Performed By: #### W SR, TSH, CBCDIF, FT4, CMP #### [address] [place], [place] [address] Platelet mean volume (Bld) [Entitic vol] 11.3 fL Normal 9.0-12.7 [facility] Comment on above: Performed By: #### W SR, TSH, CBCDIF, FT4, CMP #### [facility] [address] [place], [place] [address] Platelets (Bld) [#/Vol] 197 10*3/uL Normal 150-400 [facility] Comment on above: Performed By: #### W SR, TSH, CBCDIF, FT4, CMP #### [place] [id number] [place], [place] [address] RBC (Bld) [#/Vol] 5.63 10*6/uL Normal 4.20-6.00 [facility] Comment on above: Performed By: #### W SR, TSH, CBCDIF, FT4, CMP #### [facility] [address] [place], [place] [address] WBC (Bld) [#/Vol] 5.17 10*3/uL Normal 3.70-11.00 [facility] Comment on above: Performed By: #### W SR, TSH, CBCDIF, FT4, CMP #### [facility] [address] [place], [place] [address] CNOVon 07-08-2021 CNOV Office Visit (PEDSMT) CAMERON TERESA ([id number]) 1 M Date Time Provider Department 07/08/21 1:00 PM JAXSON STARKS PEDSMT During your visit today, we recorded the following information about you: Temperature Weight Height 98.7 degrees 84.4 kg 1.969 m Jaxson Starks DO 07/08/2021 2:08 PM Signed PEDIATRIC SICK VISIT SERVICE DATE: 07/08/2021 This is an in office for a face to face encounter and the mother is aware and agrees with 30-35 minute encounter. SUBJECTIVE: Cameron Teresa is a 15 year old male accompanied by mother for evaluation of the tips of his toes looking red all of the time and they 'tingle' at times. They do not hurt and he has no other body parts that bother him at all. He thinks his shoes may be to large but his feet do not slip in them. He is not active in sports and is not working. He previously used drugs but not for over a long period of time. History was obtained from: mother and patient Duration of Symptoms: multiple weeks to months Associated Symptoms: none Severity of Symptoms: moderate and have been not improving Modifying factors attempted: None Sick contacts: No known sick contacts. Smoking Exposure: Does your child spend a significant amount of time in the care of anyone who smokes? No HISTORY: ACTIVE PROBLEM LIST Mdd (Major Depressive Disorder) Ptsd (Post-Traumatic Stress Disorder) Polysubstance Abuse (Hcc) PAST MEDICAL HISTORY Diagnosis Date - Depression PAST SURGICAL HISTORY Procedure Laterality Date - NONE Allergies: ALLERGIES No Known Allergies Medications: ibuprofen (MOTRIN IB) 200 mg tablet Take 600 mg by mouth every 6 hours as needed. sodium chloride (AYR SALINE) 0.65 % nasal spray Use 1 Roosevelt in the nose as needed. albuterol HFA (PROVENTIL HFA, VENTOLIN HFA) 90 mcg/actuation inhaler Inhale 2 Puffs as instructed every 4 hours as needed for wheezing/shortness of breath. hydrOXYzine pamoate (VISTARIL) 50 mg capsule TAKE 2 CAPSULES BY MOUTH TWICE DAILY NEEDED venlafaxine ER (EFFEXOR XR) 75 mg 24 hr capsule Take 75 mg by mouth every morning. With 37.5 mg tablet melatonin 5 mg tablet Take 2 tablets by mouth daily at bedtime. venlafaxine ER (EFFEXOR XR) 37.5 mg 24 hr capsule Take 1 capsule by mouth daily with breakfast. REVIEW OF SYSTEMS: GENERAL: Negative for fevers HEENT: Negative for congestion or rhinorrhea. RESPIRATORY: Negative for wheezing or respiratory distress GI: Negative for vomiting or diarrhea. SKIN: Negative for lesions, rash, and itching. OBJECTIVE: Temp 37.1 ?C (98.7 ?F) (Temporal) Ht 196.9 cm (6' 5.5 ) Wt 84.4 kg (186 lb) BMI 21.77 kg/m? General: alert and active in no apparent distress, cooperative Eyes: conjunctiva clear Ears: TMs clear: bilaterally Nose: no erythema or exudate OP: moist without lesions Neck: supple, no adenopathy Lungs: clear to auscultation bilaterally, good air exchange, no retractions CVS: Normal rate, regular rhythm, no murmur Abdomen: soft, nondistended, nontender, no hepatosplenomegaly or masses Skin: No rashes, lesions or skin changes Extremities: No clubbing, cyanosis, or edema., No deformities or skin discoloration. Good capillary refill. Full range of motion., and pedal pulses very strong bilaterally. All of his toes and warm but the tips of his toes and redder with caluses on all of the MP joints ASSESSMENT/PLAN: Encounter Diagnosis ICD-10-CM 1. Hypothermia due to exposure T68.XXXA CBC + DIFF SED RATE WESTERGREN T4 FREE/FREE THYROX TSH BLD COMP METABOLIC PANEL - Follow up for persistent or worsening symptoms, not drinking, decreased urination, or other concerns. - Await labs and sill have his see specialist after same. SIGNATURE: Jaxson Starks DO PATIENT NAME: Cameron Teresa DATE: July 08, 2021 TIME: 1:05 PM Jaxson Starks DO 07/08/2021 1:05 PM Signed 5 to Go!TM Healthy Kids Inside AND Out 5 Eat FIVE fruits and veggies a day 4 Give and get FOUR compliments a day 3 Consume THREE calcium products a day 2 Limit media time to TWO hours a day 1 Get at least ONE hour of exercise a day 0 Consume ZERO sugar-sweetened drinks Go! Be healthy, inside and out! www.[email or web address] org/5toGo Referring Provider: SELF [200] Allergies As of Date: 07/08/2021 (No Known Allergies) Date Reviewed: 07/08/2021 Reviewed by: Jaxson Starks DO - Fully Assessed Primary Visit Diagnosis:Hypothermi a due to exposure [T68.XXXA] Order(s):CBC + DIFF [SQCBCDIF] Order #: [id number] FUTURE SED RATE WESTERGREN [SQWSR] Order #: [id number] FUTURE T4 FREE/FREE THYROX [SQFT4] Order #: [id number] FUTURE TSH BLD [SQTSH] Order #: [id number] FUTURE COMP METABOLIC PANEL [SQCMP] Order #: [id number] FUTURE Prescriptions as of 07/08/2021 - ibuprofen (MOTRIN IB) 200 mg tablet Take 600 mg by mouth every 6 hours as needed. - s (more content not included)... Normal [facility] Comp Metabolic Panelon 07-08 Albumin [Mass/Vol] 4.9 g/dL High 3.2-4.5 [facility] Comment on above: Performed By: #### W SR, TSH, CBCDIF, FT4, CMP #### [facility] [address] [place], [place] [address] ALP [Catalytic activity/Vol] 122 U/L Normal 55-149 [facility] Comment on above: Result Comment: Refe rence ranges were not locally established for this patient's age group. The normal values are based on the following source: Loida MP, Yusuf AH, et al. CLSI based transference of the [facility] database of pediatric reference intervals from Gomez to Pema, Ortho, Jeiosn, and Siemens Clinical Chemistry Assays: Direct validation using reference samples from the [facility] cohort. Clin Biochem. Performed By: #### W SR, TSH, CBCDIF, FT4, CMP #### [facility] [address] [place], [place] [address] ALT [Catalytic activity/Vol] 25 U/L Normal 10-54 [facility] Comment on above: Result Comment: (NOT E) Reference ranges for this patient's age group have not been established. These reference ranges reflect verified or established ranges for the adult population. Interpret these ranges wtih caution using clinical context and additional reference resources. Performed By: #### W SR, TSH, CBCDIF, FT4, CMP #### [facility] [address] [place], [place] [address] Anion gap [Moles/Vol] 12 mmol/L Normal 9-18 [facility] Comment on above: Result Comment: (NOT E) Reference ranges for this patient's age group have not been established. These reference ranges reflect verified or established ranges for the adult population. Interpret these ranges with caution using the clinical context and additional reference resources. Performed By: #### W SR, TSH, CBCDIF, FT4, CMP #### [facility] [address] [place] [address] AST [Catalytic activity/Vol] 25 U/L Normal 14-40 [facility] Comment on above: Result Comment: (NOT E) Reference ranges for this patient's age group have not been established. These reference ranges reflect verified or established ranges for the adult population. Interpret these ranges with caution using clinical context and additional reference resources. Performed By: #### W SR, TSH, CBCDIF, FT4, CMP #### [facility] [address] [place] [address] Bilirubin [Mass/Vol] 0.3 mg/dL Normal 0.2-1.3 [facility] Comment on above: Result Comment: (NOT E) Reference ranges for this patient's age group have not been established. These reference ranges reflect verified or established ranges for the adult population. Interpret these ranges with caution using the clinical context and additional reference resources. Performed By: #### W SR, TSH, CBCDIF, FT4, CMP #### [facility] [address] [place] [id number] Calcium [Mass/Vol] 10.2 mg/dL Normal 8.4-10.2 [facility] Comment on above: Performed By: #### W SR, TSH, CBCDIF, FT4, CMP #### [facility] [address] [place], [place] [address] Chloride [Moles/Vol] 105 mmol/L Normal 97-105 [facility] Comment on above: Result Comment: (NOT E) Reference ranges for this patient's age group have not been established. These reference ranges reflect verified or established ranges for the adult population. Interpret these ranges with caution using the clinical context and additional reference resources. Performed By: #### W SR, TSH, CBCDIF, FT4, CMP #### [facility] [address] [place] [address] CO2 [Moles/Vol] 24 mmol/L Normal 22-30 [facility] Comment on above: Result Comment: (NOT E) Reference ranges for this patient's age group have not been established. These reference ranges reflect verified or established ranges for the adult population. Interpret these ranges with caution using the clinical context and additional reference resources. Performed By: #### W SR, TSH, CBCDIF, FT4, CMP #### [facility] [place] [address] Creatinine [Mass/Vol] 1.19 mg/dL Normal 0.73-1.22 [facility] Comment on above: Result Comment: Refe rence ranges for this patient's age group have not been established. These reference ranges reflect verified or established ranges for the adult population. Interpret these ranges with caution using the clinical context and additional reference resources. Performed By: #### W SR, TSH, CBCDIF, FT4, CMP #### [facility] [address] [place] [address] eGFR-Ped. Factor 0.35 Normal [facility] Comment on above: Result Comment: eGFR (Estimated GFR) Units of measure: mL/min/1.73 meters squared eGFR in pediatric patients is calculated from the Bedside Cohen equation based on a stable serum creatinine and height. The creatinine assay has been calibrated to be traceable to IDMS. To calculate the patient's eGFR, multiply the given factor by the patient's height (centimeters). An eGFR <60 mL/min/1.73m2 for >3 months is consistent with chronic kidney disease. Refer to KDOQI guidelines for clinical interpretation. Performed By: #### W SR, TSH, CBCDIF, FT4, CMP #### [facility] [address] [place] [id number] Glucose [Mass/Vol] 70 mg/dL Low 74-99 [facility] Comment on above: Result Comment: Refe rence ranges for this patient's age group have not been established. These reference ranges reflect verified or established ranges for the adult population. Interpret these ranges with caution using the clinical context and additional reference resources. The [place] [employer] (ADA) provides guidance for cutoff values for fasting glucose and random glucose. The ADA defines fasting as no caloric intake for at least 8 hours. Fasting plasma glucose results between 100 to 125 mg/dL indicate increased risk for diabetes (prediabetes). Fasting plasma glucose results greater than or equal to 126 mg/dL meet the criteria for diagnosis of diabetes. In the absence of unequivocal hyperglycemia, results should be confirmed by repeat testing. In a patient with classic symptoms of hyperglycemia or hyperglycemic crisis, random plasma glucose results greater than or equal to 200 mg/dL meet the criteria for diagnosis of diabetes. Reference: Standards of Medical Care in Diabetes 2016, [place] [employer]. Diabetes Care. 2016.39(Suppl 1). Performed By: #### W SR, TSH, CBCDIF, FT4, CMP #### [facility] [address] [place], [place] [address] Potassium [Moles/Vol] 4.9 mmol/L Normal 3.7-5.1 [facility] Comment on above: Result Comment: (NOT E) Reference ranges for this patient's age group have not been established. These reference ranges reflect verified or established ranges for the adult population. Interpret these ranges with caution using the clinical context and additional reference resources. Performed By: #### W SR, TSH, CBCDIF, FT4, CMP #### [facility] [address] [place], [place] [address] Protein [Mass/Vol] 7.3 g/dL Normal 6.3-8.0 [facility] Comment on above: Result Comment: (NOT E) Note that results are flagged as abnormal based on ADULT reference ranges, rather than age-specific ranges for the pediatric population. Lab-specific normal ranges have not been determined for this patient's age group. Published reference range data, shown in the table below, may contribute to proper clinical interpretation. Age Reference Range Units 0-12 months 4.9-7.3 g/dL 1-5 years 6.2-8.0 g/dL 6-10 years 6.6-8.6 g/dL 11-14 years 6.4-8.5 g/dL 15-17 years 6.4-8.3 g/dL Reference: Abhi MK, Ameya I, Teresita M, et al. [employer] Initiative on Reference Interval Database(CALIPER): pediatric reference intervals for an integrated clinical chemistry and immunoassay analyzer, Gomez [employer] [id number]. Clin Biochem 2009;42:885-891. Performed By: #### W SR, TSH, CBCDIF, FT4, CMP #### [place] [address] [place], [place] [address] Sodium [Moles/Vol] 141 mmol/L Normal 136-144 [facility] Comment on above: Result Comment: (NOT E) Reference ranges for this patient's age group have not been established. These reference ranges reflect verified or established ranges for the adult population. Interpret these ranges with caution using the clinical context and additional reference resources. Performed By: #### W SR, TSH, CBCDIF, FT4, CMP #### [place] [address] [place] [id number] Urea nitrogen [Mass/Vol] 15 mg/dL Normal 5-18 [facility] Comment on above: Performed By: #### W SR, TSH, CBCDIF, FT4, CMP #### [place] [address] [place] [id number] Free T4on 07-08-2021 Free T4 [Mass/Vol] 1.4 ng/dL Normal 0.8-2.8 [facility] Comment on above: Performed By: #### W SR, TSH, CBCDIF, FT4, CMP #### [place] [address] [place], [place] [address] Sed Rate Westergrenon 2021 Sed Rate Westergren 2 mm/hr Normal 0-15 [facility] Comment on above: Performed By: #### W SR, TSH, CBCDIF, FT4, CMP #### [facility] [address] [place], [place] [address] TSHon 07-08-2021 TSH Qn 2.020 m[IU]/L Normal 0.510-4.300 [facility] Comment on above: Result Comment: Refe rence ranges were not locally established for this patient's age group. The normal values are based on the following source: Phil Block V. Reference Ranges for Adults and Children: Pre-analytical Considerations. [facility] Performed By: #### W SR, TSH, CBCDIF, FT4, CMP #### [facility] [address] [place], [place] [address] ED NOTEon 05-16-2021 ED NOTE HNO ID: [id number] Author: Zara Enciso RN Service: ? Author Type: Registered Nurse Type: ED Notes Filed: 05/16/2021 8:50 PM Note Text: Spacer teaching done and spacer provided [facility] ED NOTE HNO ID: [id number] Author: Zara Enciso RN Service: ? Author Type: Registered Nurse Type: ED Notes Filed: 05/16/2021 8:32 PM Note Text: No spacers available in ED. RT notified and will bring from store room [facility] ED NOTE HNO ID: [id number] Author: Zara Enciso RN Service: ? Author Type: Registered Nurse Type: ED Notes Filed: 05/16/2021 6:23 PM Note Text: Strep swab obtained. Mom states covid swab done yesterday via [facility] ED NOTE HNO ID: [id number] Author: Carter Cadena RN Service: ? Author Type: Registered Nurse Type: ED Notes Filed: 05/16/2021 5:17 PM Note Text: Pt bib mother for cough sore throat and chest discomfort x 5 days Seen by pmd yesterday [facility] ED PROV NOTEon 05-16-2021 ED PROV NOTE HNO ID: [id number] Author: Yvette Marion DO Service: Emergency Medicine Author Type: Physician Type: ED Provider Notes Filed: 05/17/2021 10:41 PM Note Text: ED Provider Note Patient Name: Cameron Teresa SERVICE DATE: 05/16/21 History Patient presents with: Cough Sore Throat Chest Pain HPI 15 year old male with history of asthma, MDD, PTSD, and polysubstance abuse disorder (resolved) presenting for concern of 5 days of URI with cough, sore throat, and chest pain. He was evaluated for the same at urgent care yesterday and states his symptoms of cough, congestion, sore throat, and mild epigastric tenderness have worsened since yesterday with increased subjective shortness of breath and feeling like he cannot get a deep breath. He has had intermittent fever of 99-100*f treated with NSAIDs at home with good resolution, intermittent nausea without vomiting. His cough is productive producing green and yellow sputum. He has had mild decrease in PO intake but tolerating fluids well. Patient denies ear pain, sinus pain or pressure. He also endorses fatigue and mild SOB on exertion. He has been treating his fever with NSAIDs. He has not been taking any other medications for his symptoms. He is not vaccinated for COVID but he did have a positive COVID case 2 months ago. PAST MEDICAL HISTORY Diagnosis Date - Depression PAST SURGICAL HISTORY Procedure Laterality Date - NONE FAMILY HISTORY Problem Relation Age of Onset - None Mother - None Father - Cancer Paternal Grandmother Social History Tobacco Use - Smoking status: Never Smoker - Smokeless tobacco: Never Used Substance and Sexual Activity - Alcohol use: Not on file - Drug use: Yes Types: Amphetamines, Crystal Meth Comment: 5 weeks ago - Sexual activity: Not Currently ALLERGIES No Known Allergies Review of Systems Constitutional: Positive for chills, fatigue and fever. Negative for appetite change. HENT: Positive for congestion, rhinorrhea and sore throat. Negative for sinus pressure and sinus pain. Eyes: Negative for redness. Respiratory: Positive for cough (productive with yellow/green suputm ) and shortness of breath (Mild). Negative for wheezing. Cardiovascular: Negative for chest pain, palpitations and leg swelling. Gastrointestinal: Positive for abdominal pain (Mild epigastric ) and nausea. Negative for diarrhea and vomiting. Endocrine: Negative for polyuria. Genitourinary: Negative for frequency. Musculoskeletal: Positive for myalgias. Negative for arthralgias. Skin: Negative for wound. Allergic/Immunologic : Negative. Neurological: Positive for light-headedness and headaches (Mild frontal). Negative for dizziness, weakness and numbness. Hematological: Negative. Psychiatric/Behavior al: Negative. Negative for agitation and confusion. Physical Exam Vitals [05/16/21 1713] BP Pulse Temp Temp src Resp SpO2 Weight Height 136/80 (!) 96 37.1 ?C (98.7 ?F) Temporal Art 18 100 % 85.8 kg (189 lb 2.5 oz) -- Physical Exam Vitals and nursing note reviewed. Exam conducted with a laser/electro optics technician present. Constitutional: General: He is not in acute distress. Appearance: He is not ill-appearing or toxic-appearing. Comments: Sounds congested but does not appear acutely ill HENT: Right Ear: Tympanic membrane normal. No middle ear effusion. Tympanic membrane is not erythematous. Left Ear: Tympanic membrane normal. No middle ear effusion. Tympanic membrane is not erythematous. Nose: Congestion and rhinorrhea present. Mouth/Throat: Mouth: Mucous membranes are moist. Pharynx: Oropharynx is clear. Posterior oropharyngeal erythema present. No oropharyngeal exudate or uvula swelling. Tonsils: No tonsillar exudate. 2+ on the right. 2+ on the left. Eyes: Conjunctiva/sclera: Conjunctivae normal. Pupils: Pupils are equal, round, and reactive to light. Cardiovascular: Rate and Rhythm: Normal rate and regular rhythm. Pulses: Normal pulses. Heart sounds: Normal heart sounds. No murmur heard. No friction rub. No gallop. Pulmonary: Effort: Pulmonary effort is normal. No respiratory distress. Breath sounds: Normal breath sounds. No stridor. No wheezing, rhonchi or rales. Abdominal: General: Abdomen is flat. Bowel sounds are normal. Palpations: Abdomen is soft. There is no mass. Tenderness: There is no abdominal tenderness. There is no guarding. Hernia: No hernia is present. Musculoskeletal: General: No swelling or tenderness. Normal range of motion. Cervical back: Normal range of motion and neck supple. Lymphadenopathy: Cervical: No cervical adenopathy. Skin: General: Skin is warm and dry. Capillary Refill: Capillary refill takes less than 2 seconds. Findings: No lesion or rash. Neurological: General: No focal deficit present. Mental Status: He is alert and oriented to person, place, and time. Mental status is at baseline. Motor: No weak (more content not included)... [facility] XR CHEST 1V FRONTAL PORTon 1 07-16-2020 XR CHEST 1V FRONTAL PORT * * *Final Report* * * DATE OF EXAM: May 16 2021 7:10PM HCX [id number] - XR CHEST 1V FRONTAL PORT / PROCEDURE REASON: Cough, new onset * * * * Physician Interpretation * * * * RESULT: TECHNIQUE: Portable AP chest EXAM DATE: 05/16/2021 7:10 PM CLINICAL HISTORY: 15 years Male with Cough, new onset; PT STS MALAISE (5D) COMPARISON: 04/20/2009 RESULTS: The cardiomediastinal silhouette is within normal limits of size. There is no evidence of focal pulmonary consolidation, pleural effusion or pneumothorax. IMPRESSION: No focal pulmonary consolidation. Transcribed Using Voice Recognition Transcribe Date/Time: May 16 2021 7:31P Dictated by: TERRANCE AYALA MD This examination was interpreted and the report reviewed and electronically signed by: TERRANCE AYALA MD on May 16 2021 7:32PM EST [id number] [facility] CNOVon 05-15-2021 CNOV Office Visit (PEDSMT) CAMERON TERESA ([id number]) 1 M Date Time Provider Department 05/15/21 12:10 PM JAXSON STARKS PEDSMAnnette During your visit today, we recorded the following information about you: Temperature Pulse Blood pressure 98.5 degrees 89/minute 116/65 Jaxson Starks DO 05/15/2021 12:50 PM Signed PEDIATRIC SICK VISIT SERVICE DATE: 05/15/2021 This is an in office face to face encounter and they are aware and agrees with same for a 35-40 minute encounter. SUBJECTIVE: Cameron Teresa is a 15 year old male accompanied by mother for evaluation of fever headache nasal congestion rhinorrhea cough nausea. History was obtained from: mother Duration of Symptoms: 3-4 days Associated Symptoms: fever headache nasal congestion or rhinorrhea cough Severity of Symptoms: moderate and have been not improving Modifying factors attempted: Ibuprofen with relief. Sick contacts: No sick contacts. Smoking Exposure: Does your child spend a significant amount of time in the care of anyone who smokes? No HISTORY: ACTIVE PROBLEM LIST Mdd (Major Depressive Disorder) Ptsd (Post-Traumatic Stress Disorder) Polysubstance Abuse (Hcc) PAST MEDICAL HISTORY Diagnosis Date - Depression PAST SURGICAL HISTORY Procedure Laterality Date - NONE Allergies: ALLERGIES No Known Allergies Medications: hydrOXYzine pamoate (VISTARIL) 50 mg capsule TAKE 2 CAPSULES BY MOUTH TWICE DAILY NEEDED venlafaxine ER (EFFEXOR XR) 75 mg 24 hr capsule Take 75 mg by mouth every morning. With 37.5 mg tablet melatonin 5 mg tablet Take 2 tablets by mouth daily at bedtime. venlafaxine ER (EFFEXOR XR) 37.5 mg 24 hr capsule Take 1 capsule by mouth daily with breakfast. REVIEW OF SYSTEMS: GENERAL: Positive for fever, malaise and anorexia HEENT: Negative for congestion or rhinorrhea. RESPIRATORY: Negative for wheezing or respiratory distress GI: Negative for vomiting or diarrhea. SKIN: Negative for lesions, rash, and itching. OBJECTIVE: There were no vitals taken for this visit. General: alert and active in no apparent distress, cooperative Eyes: conjunctiva clear Ears: TMs clear: right Nose: no erythema or exudate, clear rhinorrhea OP: moist without lesions, no erythema, no exudates Neck: supple, small, benign anterior cervical node Bilateral Lungs: clear to auscultation bilaterally, good air exchange, no retractions CVS: Normal rate, regular rhythm, no murmur Abdomen: soft, nondistended, nontender, no hepatosplenomegaly or masses Skin: No rashes, lesions or skin changes ASSESSMENT/PLAN: Encounter Diagnosis ICD-10-CM 1. Headache, unspecified headache type R51.9 COVID, FLU A/B + RSV, ROUTINE Follow up for persistent or worsening symptoms, not drinking, decreased urination, or other concerns. SIGNATURE: Jaxson Starks DO PATIENT NAME: Cameron Teresa DATE: May 15, 2021 TIME: 12:10 PM Jaxson Starks DO 05/15/2021 12:13 PM Signed 5 to Go!TM Healthy Kids Inside AND Out 5 Eat FIVE fruits and veggies a day 4 Give and get FOUR compliments a day 3 Consume THREE calcium products a day 2 Limit media time to TWO hours a day 1 Get at least ONE hour of exercise a day 0 Consume ZERO sugar-sweetened drinks Go! Be healthy, inside and out! [email or web address] Referring Provider: SELF [200] Allergies As of Date: 05/15/2021 (No Known Allergies) Date Reviewed: 05/15/2021 Reviewed by: Jaxson Starks DO - Fully Assessed Reason for Visit: Cough [28] Cmt: x 4 days Headaches [3461] Primary Visit Diagnosis:Headache, unspecified headache type [R51.9] Order(s):COVID, FLU A/B + RSV, ROUTINE [SQCVFLRS] Order #: [id number] Prescriptions as of 05/15/2021 - hydrOXYzine pamoate (VISTARIL) 50 mg capsule TAKE 2 CAPSULES BY MOUTH TWICE DAILY NEEDED - venlafaxine ER (EFFEXOR XR) 75 mg 24 hr capsule Take 75 mg by mouth every morning. With 37.5 mg tablet - melatonin 5 mg tablet Take 2 tablets by mouth daily at bedtime. - venlafaxine ER (EFFEXOR XR) 37.5 mg 24 hr capsule Take 1 capsule by mouth daily with breakfast. Problem List As Of Date 05/15/2021 Noted Resolved MDD (major depressive disorder) [F32.9] 06/07/2020 PTSD (post-traumatic stress disorder) [F43.10] 06/07/2020 Polysubstance abuse (HCC) [F19.10] 06/07/2020 Other instructions from your clinician: 5 to Go!TM Healthy Kids Inside AND Out 5 Eat FIVE fruits and veggies a day 4 Give and get FOUR compliments a day 3 Consume THREE calcium products a day 2 Limit media time to TWO hours a day 1 Get at least ONE hour of exercise a day 0 Consume ZERO sugar-sweetened drinks Go! Be healthy, inside and out! [email or web address] Disposition: Return if symptoms worsen or fail to improve. Follow-up and Disposition History for Encounter Date Provider Department Center (more content not included)... Normal [facility] Cepheid Bill only (EXCFR)on 05-15-2021 Cepheid Bill only (EXCFR) Billed for services performed Normal [facility] Comment on above: Performed By: #### C FRCEP, EXCFR #### [place] [id number] [place] [address] EXCOVD, Flu A/B, RSV (On int erfaces 1102,1120)on 05-15-2021 Influenza A PCR Negative Normal [facility] Comment on above: Result Comment: This test has been authorized by [facility] under an Emergency Use Authorization (EUA). Performed By: #### C FRCEP, EXCFR #### [place] [address] Influenza B PCR Negative Normal [facility] Comment on above: Result Comment: This test has been authorized by FDA under an Emergency Use Authorization (EUA). Performed By: #### C FRCEP, EXCFR #### [place] [address] RSV PCR Negative Normal [facility] Comment on above: Result Comment: This test has been authorized by [facility] under an Emergency Use Authorization (EUA). Performed By: #### C FRCEP, EXCFR #### [place] [address] SARS-CoV-2 (COVID-19) RNA JERRELL+probe Ql (Unsp spec) UPPER RESPIRATORY TRACT SWAB Normal [facility] Comment on above: Performed By: #### C FRCEP, EXCFR #### [place] [address] SARS-CoV-2 (COVID-19) RNA JERRELL+probe Ql (Unsp spec) Negative for COVID19 (SARS CoV2) by RT-PCR or equivalent method. Normal Negative for COVID19 (SARS CoV2) by RT-PCR or equivalent method. [facility] Comment on above: Result Comment: This test has been authorized by FDA under an Emergency Use Authorization (EUA). Test performed by [facility], [facility] [place], [address] [place] [address]. Performed By: #### C FRCEP, EXCFR #### [place] [address] GC/CHLAM AMPLIFICATION URINE [CCL]on 10-30-2020 Chlamydia Amplif, Ur Negative Normal [facility] Comment on above: Result Comment: [place] [address] Benito Uribe III, M.D. [id number] Performed By: #### 2 26772 #### [facility],[address] [place] [address] UGCAMP Negative Normal [facility] Comment on above: Performed By: #### 2 37030 #### [facility],[address] [place] [address] GC/Chlamydia Amp, Uron 10-30 Chlamydia Amplif, Ur CLNEG Normal [facility] Comment on above: Performed By: #### U GCCT #### [facility] [address] [place] [address] GC Amplification, Ur NGNEG Normal [facility] Comment on above: Performed By: #### U GCCT #### [facility] [address] [place] [address] CBC + DIFFon 10-24-2020 Baso # 0.00 x10EE3/UL Normal 0.00 - 0.10 [facility] Comment on above: Performed By: #### 2 94392 #### [facility],[address] [place] [address] 18848 Basophils/100 WBC (Bld) 0.8 % Normal 0.0 - 2.0 [facility] Comment on above: Performed By: #### 2 86167 #### [facility],[address] [place] [address] CBC + DIFF Normal [facility] Comment on above: Result Comment: CBC- COMPLETE BLOOD COUNT Performed By: #### 2 89762 #### [facility],[address] [place] [address]178 EO # 0.10 x10EE3/UL Normal 0.00 - 0.50 [facility] Comment on above: Performed By: #### 2 83484 #### [facility],[address] [place] [address]99 Eosinophils/100 WBC (Bld) 1.9 % Normal 0.0 - 7.0 [facility] Comment on above: Performed By: #### 2 79589 #### [facility],[address] [place] [address] Erythrocyte distribution width (RBC) [Ratio] 14.3 % Normal 12.0 - 15.6 [facility] Comment on above: Performed By: #### 2 86886 #### [facility],[address] [place] [address]24 Hematocrit (Bld) [Volume fraction] 43.5 % Normal 40.0 - 52.0 [facility] Comment on above: Performed By: #### 2 20715 #### [facility],[address] [place] [address]40 Hemoglobin (Bld) [Mass/Vol] 14.9 g/dL Normal 13.0 - 17.5 [facility] Comment on above: Performed By: #### 2 25164 #### [facility],[address] [place] [address] Lymph # 1.30 x10EE3/UL Normal 0.80 - 2.80 [facility] Comment on above: Performed By: #### 2 27344 #### [facility],[address] [place] [address] 24269 Lymphocytes/100 WBC (Bld) 30.7 % Normal 20.0 - 45.0 [facility] Comment on above: Performed By: #### 2 80362 #### [facility],[address] [place] [address] MANUAL DIFF N/A Normal [facility] Comment on above: Performed By: #### 2 99911 #### [facility],[address] [place] [address] MCH (RBC) [Entitic mass] 29 pg Normal 27 - 33 [facility] Comment on above: Performed By: #### 2 61893 #### [facility],[address] [place] [address] MCHC 34 X10 3 Normal 32 - 36 [facility] Comment on above: Performed By: #### 2 47131 #### [place] [address] MCV (RBC) [Entitic vol] 84 fL Normal 81 - 98 [facility] Comment on above: Performed By: #### 2 05333 #### [place] [address] Emery # 0.40 x10EE3/UL Normal 0.20 - 1.00 [facility] Comment on above: Performed By: #### 2 56438 #### [facility],[address] [place] [address] MONOS % 8.8 % Normal 0.0 - 10.0 [facility] Comment on above: Performed By: #### 2 12459 #### [place] [id number] Morphology Daniel (Bld) [Interp] N/A Normal [facility] Comment on above: Result Comment: {CD] Performed By: #### 2 61582 #### [place] [address] Neut # 2.50 x10EE3/UL Normal 1.50 - 7.10 [facility] Comment on above: Performed By: #### 2 17599 #### [facility],[address] [place] [address] Neutrophils/100 WBC (Bld) 57.8 % Normal 46.0 - 76.0 [facility] Comment on above: Performed By: #### 2 80689 #### [facility],[address] [place] [address] PLATELET 142 x10EE3/UL Low 150 - 450 [facility] Comment on above: Performed By: #### 2 85544 #### [facility],[address] [place], [place] [id number] Platelet mean volume (Bld) [Entitic vol] 9.7 fL Normal 6.4 - 10.5 [facility] Comment on above: Result Comment: AUTO MATED DIFFERENTIAL Performed By: #### 2 74467 #### [facility],[address] [place], [place] [id number] RBC 5.16 x 10EE6/UL Normal 4.50 - 6.00 [facility] Comment on above: Performed By: #### 2 86512 #### [facility],[address] [place], [place] [id number] WBC 4.3 x 10EE3/UL Low 4.5 - 10.8 [facility] Comment on above: Performed By: #### 2 33048 #### [facility],[address] [place] [address] CMP with eGFRon 10-24-2020 AGE 15 years Normal [facility] Comment on above: Performed By: #### 2 38165 #### [address] [address] Albumin [Mass/Vol] 4.0 g/dL Normal 3.4 - 5.0 [facility] Comment on above: Performed By: #### 2 29306 #### [facility],[address],[place] [address] Albumin/Globulin [Mass ratio] 1.4 {ratio} Normal 0.9 - 1.6 [facility] Comment on above: Performed By: #### 2 17377 #### [facility],[address] [place] [address]48 ALK PHOS 113 U/L Normal 46 - 116 [facility] Comment on above: Performed By: #### 2 52930 #### [facility],[address] [place] [address] 26379 ALT [Catalytic activity/Vol] 23 U/L Normal 16 - 63 [facility] Comment on above: Performed By: #### 2 40642 #### [facility],[address] [place] [address] 35599 Anion gap [Moles/Vol] 11 mmol/L Normal 10 - 20 [facility] Comment on above: Performed By: #### 2 64509 #### [facility],[address] [place] [address] 04398 AST [Catalytic activity/Vol] 21 U/L Normal 15 - 37 [facility] Comment on above: Performed By: #### 2 07679 #### [facility],[address] [place] [address]1974 B/C RATIO 17 ratio Normal 0 - 30 [facility] Comment on above: Performed By: #### 2 85134 #### [facility],[address] [place] [address] 49758 Bilirubin [Mass/Vol] 0.5 mg/dL Normal 0.2 - 1.0 [facility] Comment on above: Performed By: #### 2 14513 #### [facility],[address] [place] [address] 97917 Calcium [Mass/Vol] 8.9 mg/dL Normal 8.5 - 10.1 [facility] Comment on above: Performed By: #### 2 57211 #### [facility],[address] [place], [place] [address] Chloride [Moles/Vol] 104 mmol/L Normal 98 - 107 [facility] Comment on above: Performed By: #### 2 06533 #### [facility],[address] [place] [address] 52659 CMP with eGFR Normal [facility] Comment on above: Result Comment: COMP REHENSIVE METABOLIC PANEL Performed By: #### 2 78240 #### [facility],[address] [place], [place] [address] CO2 [Moles/Vol] 31.3 mmol/L Normal 21.0 - 32.0 [facility] Comment on above: Performed By: #### 2 67034 #### [facility],[address] [place] [address] Creatinine [Mass/Vol] 1.1 mg/dL Normal 0.7 - 1.3 [facility] Comment on above: Performed By: #### 2 71733 #### [facility],[address] [place] [address] GFR/1.73 sq M.predicted among non-blacks MDRD (S/P/Bld) [Vol rate/Area] mL/min/{1.73_m2} Normal 60 - 999 [facility] Comment on above: Performed By: #### 2 73603 #### [facility],[address] [place] [address] Result Comment: ACCO RDING TO THE NATIONAL KIDNEY DISEASE EDUCATION PROGRAM(NKDE), A NORMAL eGFR IS A VALUE GREATER THAN OR EQUAL TO 60 ML/MIN/1.73 SQ METERS. CHRONIC KIDNEY DISEASE: <60mL/MIN/1.73 SQ METERS KIDNEY FAILURE: <15mL/MIN/1.73 SQ METERS THIS TEST SHOULD ONLY BE USED FOR PATIENTS 18 YEARS OF AGE AND OLDER. Globulin (S) [Mass/Vol] 2.8 g/dL Normal 1.5 - 3.8 [facility] Comment on above: Performed By: #### 2 10808 #### [facility],[address] [place] [address] 41249 Glucose [Mass/Vol] 85 mg/dL Normal 74 - 106 [facility] Comment on above: Performed By: #### 2 41826 #### [facility],[address] [place] [address] 10229 Potassium [Moles/Vol] 4.0 mmol/L Normal 3.5 - 5.1 [facility] Comment on above: Performed By: #### 2 23864 #### [facility],[address] [place] [address] 17326 Protein [Mass/Vol] 6.8 g/dL Normal 6.4 - 8.2 [facility] Comment on above: Performed By: #### 2 89623 #### [facility],[address] [place] [address] 16606 Sodium [Moles/Vol] 142 mmol/L Normal 136 - 145 [facility] Comment on above: Performed By: #### 2 41825 #### [facility],[address] [place] [address] 61768 Urea nitrogen [Mass/Vol] 19 mg/dL High 7 - 18 [facility] Comment on above: Performed By: #### 2 38493 #### [facility],[address] [place] [address] 92921 DRUG SCREEN URINE MEDICon AMPHETAMINES Negative Normal [facility] Comment on above: Performed By: #### 2 52756 #### [facility],[address] [place] [address] 60815 B-DIAZEPINES Negative Normal [facility] Comment on above: Performed By: #### 2 12110 #### [facility],[address] [place] [address] 15413 BARBITURATES Negative Normal [facility] Comment on above: Performed By: #### 2 75128 #### [facility],[address] [place] [address] 27430 COCAINE Negative Normal [facility] Comment on above: Performed By: #### 2 33558 #### [facility],[address] [place], [place] [id number] DRUG SCREEN URINE MEDIC Normal [facility] Comment on above: Result Comment: DRUG SCREEN - URINE Performed By: #### 2 83283 #### [facility],[address] [place] [address] METHADONE Negative Normal [facility] Comment on above: Performed By: #### 2 35591 #### [facility],[address] [place] [address] OPIATES Negative Normal [facility] Comment on above: Performed By: #### 2 75998 #### [facility],[address] [place] [address] PCP Negative Normal [facility] Comment on above: Performed By: #### 2 81965 #### [facility],[address] [place] [address] THC Negative Normal [facility] Comment on above: Result Comment: MOISÉS ENTS RECEIVING PROTON PUMP INHIBITORS MAY DEMONSTRATE FALSE POSITIVE THC/CANNABINOID RESULTS. AN ALTERNATIVE CONFIRMATORY METHOD SHOULD BE CONSIDERED TO VERIFY POSITIVE RESULTS. Performed By: #### 2 48571 #### [facility],[address] [place], [place] [id number] TSHon 10-24-2020 TSH Qn 1.62 m[IU]/L Normal 0.51 - 4.13 [facility] Comment on above: Performed By: #### 2 30257 #### [facility],[address] [place], [place] [phone] CNPNon 10-21-2020 CNPN Telephone ([facility]) BRIICAMERON ([id number]) 1 M Date Time Provider Department 10/21/20 JAXSON STARKS During your visit today, we recorded the following information about you: Rigoberto Brown LPN 10/21/2020 4:14 PM Signed Release of medical records sent to records release. Rigoberto Brown LPN Allergies As of Date: 10/21/2020 (No Known Allergies) Date Reviewed: 09/05/2020 Reviewed by: Maru Escoto - Fully Assessed Reason for Visit: Release Of Medical Records [2017] Cmt: [facility] Prescriptions as of 10/21/2020 Sig: HYDROXYZINE PAMOATE 50 MG CAP* TAKE 2 CAPSULES BY MOUTH TWIC* VENLAFAXINE ER 75 MG CAPSULE,* Take 75 mg by mouth every mor* MELATONIN 5 MG TABLET Take 2 tablets by mouth daily* VENLAFAXINE ER 37.5 MG CAPSUL* Take 1 capsule by mouth daily* Problem List As Of Date 10/21/2020 Noted Resolved MDD (major depressive disorder) [F32.9] 06/07/2020 PTSD (post-traumatic stress disorder) [F43.10] 06/07/2020 Polysubstance abuse (HCC) [F19.10] 06/07/2020 Encounter Status:Closed by RIGOBERTO BROWN LPN on 10/21/20 Normal [facility] ACUTE TOXICOLOGY PANEL, LACY Cano 09-24-2020 Acetaminophen [Mass/Vol] <10.0 Normal 5.0 - 20.0 [facility] Comment on above: Performed By: #### D RUBL #### [address] [address] Ethanol [Mass/Vol] mg/dL Normal [facility] Comment on above: Result Comment: FOR MEDICAL USE ONLY. . REF VALUES <10 Performed By: #### D RUBL #### [address] [address] SALICYLATE <3 Normal 4 - 20 [facility] Comment on above: Performed By: #### D RUBL #### [address] [address] CBC AND DIFFERENTIALon 09-24 % AUTOMATED IMMATURE GRAN 0.1 % Normal 0.0 - 1.0 [facility] Comment on above: Result Comment: Jessica ture Granulocyte Count (IG) includes promyelocytes, myelocytes and metamyelocytes but does not include bands. Percent differential counts (%) should be interpreted in the context of the absolute cell counts (cells/L). Performed By: #### C BCDF #### [address] [address] Basophils (Bld) [#/Vol] 0.03 10*3/uL Normal 0.00 - 0.1 0 [facility] Comment on above: Performed By: #### C BCDF #### [address] [address] Basophils/100 WBC (Bld) 0.4 % Normal 0.0 - 1.0 [facility] Comment on above: Performed By: #### C BCDF #### [address] [address] Eosinophils (Bld) [#/Vol] 0.04 10*3/uL Normal 0.00 - 0.70 [facility] Comment on above: Performed By: #### C BCDF #### [address] [address] Eosinophils/100 WBC (Bld) 0.5 % Normal 0.0 - 5.0 [facility] Comment on above: Performed By: #### C BCDF #### [address] [address] Erythrocyte distribution width (RBC) [Ratio] 13.3 % Normal 11.5 - 14.5 [facility] Comment on above: Performed By: #### C BCDF #### [address] [address] Hematocrit (Bld) [Volume fraction] 47.2 % Normal 37.0 - 49.0 [facility] Comment on above: Performed By: #### C BCDF #### [address] [address] Hemoglobin (Bld) [Mass/Vol] 15.7 g/dL Normal 13.0 - 16.0 [facility] Comment on above: Performed By: #### C BCDF #### [address] [address] Lymphocytes (Bld) [#/Vol] 1.92 10*3/uL Normal 1.80 - 4.80 [facility] Comment on above: Performed By: #### C BCDF #### [address] [address] Lymphocytes/100 WBC (Bld) 23.6 % Normal 28.0 - 48.0 [facility] Comment on above: Performed By: #### C BCDF #### [address] [address] MCHC (RBC) [Mass/Vol] 33.3 g/dL Normal 31.0 - 37.0 [facility] Comment on above: Performed By: #### C BCDF #### [address] [address] MCV (RBC) [Entitic vol] 87 fL Normal 78 - 102 [facility] Comment on above: Performed By: #### C BCDF #### [address] [address] Monocytes (Bld) [#/Vol] 0.61 10*3/uL Normal 0.10 - 1.0 0 [facility] Comment on above: Performed By: #### C BCDF #### [address] [address] Monocytes/100 WBC (Bld) 7.5 % Normal 3.0 - 9.0 [facility] Comment on above: Performed By: #### C BCDF #### [address] [address] Neutrophils (Bld) [#/Vol] 5.52 10*3/uL Normal 1.20 - 7.70 [facility] Comment on above: Performed By: #### C BCDF #### [address] [address] Neutrophils/100 WBC (Bld) 67.9 % Normal 33.0 - 69.0 [facility] Comment on above: Performed By: #### C BCDF #### [address] [address] Platelets (Bld) [#/Vol] 184 10*3/uL Normal 150 - 400 [facility] Comment on above: Performed By: #### C BCDF #### [address] [address] RBC (Bld) [#/Vol] 5.41 x10E12/L High 4.50 - 5.30 [facility] Comment on above: Performed By: #### C BCDF #### [address] [address] WBC (Bld) [#/Vol] 8.1 10*3/uL Normal 4.5 - 13.5 [facility] Comment on above: Performed By: #### C BCDF #### [address] [address] COMPREHENSIVE PANELon 2020 Albumin [Mass/Vol] 4.7 g/dL Normal 3.4 - 5.0 [facility] Comment on above: Performed By: #### C MP #### [address] [address] ALP [Catalytic activity/Vol] 132 U/L Normal 33 - 139 [facility] Comment on above: Performed By: #### C MP #### [address] [address] ALT [Catalytic activity/Vol] 18 U/L Normal 3 - 28 [facility] Comment on above: Result Comment: Moisés ents treated with Sulfasalazine may generate falsely decreased results for ALT. Performed By: #### C MP #### [address] [address] Anion gap [Moles/Vol] 11 mmol/L Normal 10 - 30 [facility] Comment on above: Performed By: #### C MP #### [address] [address] AST [Catalytic activity/Vol] 26 U/L Normal 9 - 32 [facility] Comment on above: Performed By: #### C MP #### [address] [address] Bilirubin [Mass/Vol] 0.4 mg/dL Normal 0.0 - 0.9 [facility] Comment on above: Performed By: #### C MP #### [address] [address] Calcium [Mass/Vol] 9.7 mg/dL Normal 8.5 - 10.7 [facility] Comment on above: Performed By: #### C MP #### [address] [address] Chloride [Moles/Vol] 106 mmol/L Normal 98 - 107 [facility] Comment on above: Performed By: #### C MP #### [address] [address] Creatinine [Mass/Vol] 1.01 mg/dL Normal 0.60 - 1.10 [facility] Comment on above: Performed By: #### C MP #### [address] [address] Glucose [Mass/Vol] 118 mg/dL High 74 - 99 [facility] Comment on above: Performed By: #### C MP #### [address] [address] HCO3 (Bld) [Moles/Vol] 26 mmol/L Normal 18 - 27 [facility] Comment on above: Performed By: #### C MP #### [address] [address] Potassium [Moles/Vol] 3.9 mmol/L Normal 3.5 - 5.3 [facility] Comment on above: Performed By: #### C MP #### [address] [address] Protein [Mass/Vol] 7.2 g/dL Normal 6.2 - 7.7 [facility] Comment on above: Performed By: #### C MP #### [address] [address] Sodium [Moles/Vol] 139 mmol/L Normal 136 - 145 [facility] Comment on above: Performed By: #### C MP #### [address] [address] Urea nitrogen [Mass/Vol] 15 mg/dL Normal 6 - 23 [facility] Comment on above: Performed By: #### C MP #### [address] [address] DRUG SCREEN,URINEon 09-25-19 21 AMPHETAMINE SCREEN,U Negative Normal NEGATIVE [facility] Comment on above: Result Comment: CUTO FF LEVEL: 500 NG/ML Cross-reactivity has been reported with high concentrations of the following drugs: buproprion, chloroquine, chlorpromazine, ephedrine, mephentermine, fenfluramine, phentermine, phenylpropanolamine, pseudoephedrine, and propranolol. Performed By: #### D RUG3 #### [address] [address] BARBITURATES SCREEN,U Negative Normal NEGATIVE [facility] Comment on above: Result Comment: CUTO FF LEVEL: 200 NG/ML Performed By: #### D RUG3 #### [address] [address] BENZODIAZEPINES SCREEN,U Negative Normal NEGATIVE [facility] Comment on above: Result Comment: CUTO FF LEVEL: 200 NG/ML Performed By: #### D RUG3 #### [address] [address] CANNABINOIDS SCREEN,U Negative Normal NEGATIVE [facility] Comment on above: Result Comment: CUTO FF LEVEL: 50 NG/ML Performed By: #### D RUG3 #### [address] [address] COCAINE METABOLITE SCREEN,U Negative Normal NEGATIVE [facility] Comment on above: Result Comment: CUTO FF LEVEL: 150 NG/ML Performed By: #### D RUG3 #### [address] [address] DRUG SCREEN COMMENT SEE BELOW Normal [facility] Comment on above: Result Comment: Drug screen results are presumptive and should not be used to assess compliance with prescribed medication. Contact the performing [facility] laboratory to add-on definitive confirmatory testing if clinically indicated. . Toxicology screening results are reported qualitatively. The concentration must be greater than or equal to the cutoff to be reported as positive. The concentration at which the screening test can detect an individual drug or metabolite varies. The absence of expected drug(s) and/or drug metabolite(s) may indicate non-compliance, inappropriate timing of specimen collection relative to drug administration, poor drug absorption, diluted/adulterated urine, or limitations of testing. For medical purposes only; not valid for forensic use. . Interpretive questions should be directed to the laboratory medical directors. Performed By: #### D RUG3 #### [address] [address] FENTANYL SCREEN,URINE Negative Normal NEGATIVE [facility] Comment on above: Result Comment: CUTO FF LEVEL: 1 NG/ML Performed By: #### D RUG3 #### [address] [address] METHADONE SCREEN,U Negative Normal NEGATIVE [facility] Comment on above: Result Comment: CUTO FF LEVEL: 150 NG/ML The metabolite V-wugha-ebongqsolugmcy (LAAM) is not detected by this method in concentrations that would be found in the urine of patients on LAAM therapy. Performed By: #### D RUG3 #### [address] [address] OPIATES SCREEN,U Negative Normal NEGATIVE [facility] Comment on above: Result Comment: CUTO FF LEVEL: 300 NG/ML The opiate screen does not detect fentanyl, meperidine, or tramadol. Oxycodone is not consistently detected (refer to Oxycodone Screen, Urine result). Performed By: #### D RUG3 #### [address] [address] OXYCODONE SCREEN,U Negative Normal NEGATIVE [facility] Comment on above: Result Comment: CUTO FF LEVEL: 100 NG/ML This test will accurately detect both oxycodone and oxymorphone. Performed By: #### D RUG3 #### [address] [address] PCP SCREEN,U Negative Normal NEGATIVE [facility] Comment on above: Result Comment: CUTO FF LEVEL: 25 NG/ML Cross-reactivity has been reported with dextromethorphan. Performed By: #### D RUG3 #### [facility] [address] [place] [address] Provider Note - ED v2on 08-27 Provider Note - ED v2 Provider Note - ED v2: Chart Review: ED NOTES ED NOTES: Chief complaint: Anxiety depression history of suicidal issues History of present illness: 15-year-old male, polysubstance abuse, anxiety, PTSD and depression. Has been in a facility called [facility] which apparently is for dual diagnosis, but focus primarily on substance abuse. Patient has eloped from the facility multiple times over the last several days to the point where they would not accept him back at this time. They do not feel he is safe whether they can provide for his safety given his past issues with suicidal attempt. The physician at the facility recommended he got to the emergency department to discuss alternative placement for the patient at this time. He denies acute suicidal and homicidal ideation to me. Denies hallucinations. States he does not use drugs since April 2020. Denies any acute medical complaints. No particular exacerbating or relieving factors or other social precipitants at this time identified. Essentially needs some type of psychiatric placement. PMH/PSH/FMH reviewed in EMR substance abuse. Psychiatric issues as noted above with PTSD depression and anxiety. Pertinent PMH/PSH/FMH: Social Hx: Substance abuse, but nothing recent. Denies tobacco abuse ROS: Gen.: No weight loss, fever, chills Eyes: No change in vision or eye pain ENT: No sore throat or neck swelling Cardiac: No chest pain, palpitations Pulmonary: No shortness of breath, cough, hemoptysis. Heme/lymph: No swollen glands, easy bleeding GI: No abdominal pain, change in stools, nausea : No burning with urination or increased frequency Musculoskeletal: No joint swelling Skin: No rashes. Psych: Depression & anxiety feelings. Physical Exam: Appearance: Alert, cooperative, no acute distress. Well nourished & well hydrated. Skin: No rash. No diaphoresis. No petechiae or purpura seen. HEENT: PERRL, EOMs intact without nystagmus, Conjunctiva pink with no redness or exudates, Eyelids without lesions. No scleral icterus. Hearing grossly intact. Nose without new deformity or bleeding. Pharynx clear, uvula voice clear. Membranes moist. Midline, mucus membranes moist, voice normal. Neck: Supple, without meningismus. Flat affect, appropriately oriented at this time. Trachea midline. Pulmonary: Clear bilaterally with good chest wall excursion. No rales, rhonchi or wheezing. No consolidative findings. No accessory muscle use or stridor. Cardiac: Normal S1, S2 without murmur, rubs. Abdomen: Soft, nontender, active bowel sounds. No peritoneal signs. Genitourinary: No CVA tenderness. Musculoskeletal: Full range of motion. No pain, edema, or deformity. Neurological: moves all 4 extremities with equal strength. Oriented x 3. No obvious lateralizing findings. Psychiatric: Does not appear overtly internally stimulated. Flat affect. Pertinent results: Medically unremarkable. Labs unremarkable. Talk screen unremarkable. ECG if done; interpreted by ED physician: ED Course/ Med decision making/Plan: Patient is not suicidal or homicidal or having hallucinations. He needs placement in a more secure facility for his substance abuse according to the parents, but at this time he has no immediate psychiatric needs that would warrant hospitalization or pink slipping. Stepmom and mom are both in the room. They are comfortable with the plan of taking the patient back home. He can indeed go back to [facility] just not tonight. They would need to go through the intake process in the morning. Stepmother also has other applications out to places such as [place] for the patient and are waiting to hear back from them. Patient is stable. Mother and stepmother feel that the child is stable at this point time to be in their custody and they will take the patient home at this time. I did attempt to contact patient's physician at the [facility] facility Dr. Laureano with no success. Family will contact tomorrow as necessary but as well investigate other facilities that they feel may be more appropriate for the patient. Impression: History of substance abuse History of PTSD Anxiety and depression Disposition: Discharge HISTORY OF PRESENTING ILLNESS CAMERON is a 15 year old Male and was seen by me at 23-Sep-2020 22:49. Triage Information: Most recent Vital Sign Value Date Temp (F): 97.3 09-23-2020 23:20 Temp (C): 36.3 09-23-2020 23:20 Heart Rate (beats/min): 65 09-23-2020 23:20 Respirations (breaths/min): 18 09-23-2020 23:20 SpO2 (%): 98 09-23-2020 23:20 BP Systolic (mm Hg): 123 09-23-2020 23:20 BP Diastolic (mm Hg): 70 09-23-2020 23:20 PAST MEDICAL HISTORY ATTESTATION: I have reviewed and confirmed nurse's/medic's notes for patient's medications, allergies, and medical, surgical, family and social history ALLERGIES/INTOLERANC ES: No Known Allergies HEALTH HISTORY: No documented data. OUTPATIENT MEDICATIONS: Home Medications Review Status for Reconciliation: N/A Med Status: Patient Currently Takes Medications Drug Name: escitalopram 20 mg oral tablet Instructions: 1 tab(s) orally once a day Drug Name: Abilify 5 mg oral tablet Instructions: 1.5 tab(s) orally once a day (at bedtime) Drug Name: Virasal 27.5% topical liquid Instructions: Apply topically to affected area once a day SIGNIFICANT EVENTS: Past Medical History Description:Depressi on Description:PTSD CLINICAL IMPRESSION Diagnosis/Annotation : ED Dx Name:Anxiety and depression Code:F41.9 Name:History of substance abuse Code:F19.11 Disposition: discharged Type: home ATTESTATION CRITICAL CARE TIME Is this a critically ill patient: no Electronic Signatures: MANDEEP COOK) (Signed 24-Sep-2020 00:45) Authored: ED Notes, HPI, PMH, Clinical Impression, Attestation, Chart Review, Scores Last Updated: 24-Sep-2020 00:45 by MANDEEP COOK) [facility] Risk Screen - PEDS Emergency on 09-24-2020 Risk Screen - PEDS Emergency Preferred Language: Preferred Language: Preferred Language for Discussing Health Care (patient/designee)[facility] Advanced Directives: Advance Directive/DNRnot applicable Learning Assessment (Patient): Patient is Able to be Assessed for Learningyes Educational [id number] grade Factors Influence Readiness to Learnnone, ready to learn Factors Impact Ability to Learnnone Devices/Methods Used to Communicatenone Learning Preferencesskill demonstration, verbal instruction, written material Cultural Considerationsnone Developmental Considerationsnone Uatsdin Considerationsnone Other Learnersfamily Learning Assessment (Other Learner): Other learner availableyes Other Learner is Able to be Assessed for Learningyes Learnerfamily Factors Influencing Readiness to Learnnone, ready to learn Factors that Impact Ability to Learnnone Devices/Methods Used to Communicatenone Learning Preferenceswritten material Cultural Considerationsnone Developmental Considerationsnone Uatsdin Considerationsnone Family Violence PEDS: Family Violence Screen (Patient < 8 yo, screen parent only. Patient 8 yo and older, screen both parent and child.): Do you feel UNSAFE going back to the place where you liveyes Clinician Assessment: Are there any apparent signs of injuries/behaviors that could be related to abuse/neglectno Ask parent or guardian: Are there times when you, your child(felicia), or any member of your household feel unsafe, harmed, or threatened around persons with whom you know or liveno Have YOU threatened or abused anyone physically, emotionally, or sexuallyno Fall: Pediatric Humpty Dumpty: Humpty Dumpty Risk Assessment: Humpty Dumpty Risk Assessment: Humpty: Age(1) 13 years and above Humpty: Gender(2) male Humpty: Diagnosis(1) other diagnosis Humpty: Cognitive Impairments(1) oriented to own ability Humpty: Environmental Factors(1) outpatient Humpty: Response to Surgery/ Sedation/ Anesthesia(1) more than 48 hours/none Humpty: Medication Usage(1) other medications Humpty: ScoreImage has been removed. 8 Falls Precautions per Humpty Dumpty Screening ToolLOW RISK falls safety precautions necessary (score 7-11) Respiratory / Cough /TB: ED / TB / Cough / Respiratory Screen: Do you have a coughno Smoking/Social History (Required 13 years or older): Smoking Status: former smoker Admission Risk Screen: Significant IndicatorsComplete Electronic Signatures: America Horn (AGUILA) (Signed 24-Sep-2020 01:06) Authored: Preferred Language, Advanced Directives, Learning Assessment (Patient), Learning Asessment (Other Learner), Family Violence PEDS, Fall: Pediatric Humpty Dumpty, Respiratory / Cough /TB, Smoking/Social History (Required 13 years or older) Last Updated: 24-Sep-2020 01:06 by America Horn) Normal [facility] Triage - ED Pedson Triage - ED Peds Triage: Chart Review: CHIEF COMPLAINT CAMERON TERESA is a 15 year old Male patient with a chief complaint of psychiatric evaluation. Onset of the Complaint: 23-Sep-2020 22:45 Triage Date/Time: 23-Sep-2020 23:20 Vital Signs: Temperature: 97.3F ( 36.3C) Blood Pressure: 123/70 Mean: Heart Rate: 65 Respiratory Rate: 18 Pulse Oximetry: 98% on room air, no respiratory support Weight: 81.800 kilogram(s) Weight Method Used: actual (measured) Pain Scale: VAS (8 yrs & older) VAS Pain Ratin Cough Lasting Greater than 2 Weeks: no Allergies: no Patient has Homicidal Thoughts: no Acuity Level: 2 Peds Complaint Code [place] [facility] [place] patient and/or guardian verbally acknowledges placement for services into the following (when Urgent Care Service hours are operating): emergency department ABCD PRIMARY ASSESSMENT CAMERON Pacheco LORNAJOANNE'michael primary assessment is Within Defined Limits. The airway is open and patent. Breathing spontaneous and unlabored with clear breath sounds bilaterally. Circulation is normal with good peripheral pulses. Skin is warm and dry and color is normal for race. Alert and appropriate for age. RISK SCREEN [place] Suicide Risk Screen Risk Screen Not Applicable/Able to Answer: able to be screened In the Past Month: Have you wished you were or could go to sleep and not wake up no Have you had any actual thoughts of killing yourself no Lifetime: Have you ever done, started to or prepared to do anything to end your life no TRAVEL HISTORY Travel History Coronavirus Screening: no exposure or symptoms Past Medical History: Past Medical History Reviewedyes Significant Events: PTSD: Past Medical History, Active Depression: Past Medical History, Active Electronic Signatures: America Horn (AGUILA) (Signed 24-Sep-2020 01:01) Authored: Quick Triage, Risk Screens, Chart Review, Scores, Past Medical History Last Updated: 24-Sep-2020 01:01 by America Horn) Normal [facility] Drugon 09-23-2020 Ethanol [Mass/Vol] Alcohol <0.010 Performed at [facility] [address] [facility] [address] GM/DL (0-0.010 GM/DL) 0 - 0.010 GM/DL [facility] Hematologyon 09-23-2020 Basophils (Bld) [#/Vol] Abs Baso 0.04 K/ UL (0.00-0.22 K/UL) 0.00 - 0.22 K/UL [facility] Basophils/100 WBC (Bld) Basophil 0.30 % (0-1 %) 0 - 1 % [facility] Eosinophils (Bld) [#/Vol] Abs Eos 0.01 K/UL (0-0.45 K/UL) 0 - 0.45 K/UL [facility] Eosinophils/100 WBC (Bld) Eosinophil 0.10 % (0-3 %) 0 - 3 % [facility] Hematocrit (Bld) [Volume fraction] HCT 47.3 % H (36-47 %) High 36 - 47 % [facility] Hemoglobin (Bld) [Mass/Vol] HGB 15.1 GM/DL (12.0-15.2 GM/DL) 12.0 - 15.2 GM/DL S Lymphocytes (Bld) [#/Vol] Abs Lymph 2.24 K/UL (1.2-3.2 K/UL) 1.2 - 3.2 K/UL [facility] Lymphocytes/100 WBC (Bld) Lymphocyte 18.60 % L (21-51 %) Low 21 - 51 % [facility] MCH (RBC) [Entitic mass] MCH 28.5 PG (25-35 PG) 25 - 35 PG [facility] MCV (RBC) [Entitic vol] MCV 89.2 FL (78- 96 FL) 78 - 96 FL [facility] Monocytes (Bld) [#/Vol] Abs Emery 0.87 K/ UL H (0-0.8 K/UL) High 0 - 0.8 K/UL [facility] Monocytes/100 WBC (Bld) Monocyte 7.20 % (0-8 %) 0 - 8 % [facility] Neutrophils (Bld) [#/Vol] Abs.Neut.Calculated 8.88 K/UL (Reference Range: not available) Performed at [address] [address] [facility] Neutrophils (Bld) [#/Vol] Abs Neut 8.88 K/UL H (1.5-8.0 K/UL) High 1.5 - 8.0 K/UL [facility] Platelets (Bld) [#/Vol] PLT 186 K/UL (150-450 K/UL) 150 - 450 K/UL [facility] RBC (Bld) [#/Vol] RBC 5.30 M/UL H (4.5-5.1 M/UL) High 4.5 - 5.1 M/UL [facility] WBC (Bld) [#/Vol] WBC 12.1 K/UL (4.5-13.0 K/UL) 4.5 - 13.0 K/UL [facility] Metabolic Panelon 09-23-2020 Albumin [Mass/Vol] Albumin 4.6 GM/DL (3.5-5.0 GM/DL) 3.5 - 5.0 GM/DL [facility] ALT [Catalytic activity/Vol] ALT 17 U/L (5-40 U/L) Performed at [address] [address] 5 - 40 U/L [facility] Anion gap [Moles/Vol] Anion Gap 14 MMOL/ L (0-19 MMOL/L) 0 - 19 MMOL/L S AST [Catalytic activity/Vol] AST 26 U/L (5-40 U/L) 5 - 40 U/L [facility] Bilirubin [Mass/Vol] Total Bilirubin 0.3 MG/DL (0.1-1.2 MG/DL) 0.1 - 1.2 MG/DL [facility] Calcium [Mass/Vol] Calcium 9.9 MG/DL (8.5-10.4 MG/DL) 8.5 - 10.4 MG/DL S Chloride [Moles/Vol] Chloride 101 MMOL/L (97-107 MMOL/L) 97 - 107 MMOL/L S CO2 [Moles/Vol] Carbon Dioxide 21 MMOL/L L (24-31 MMOL/L) Low 24 - 31 MMOL/L S Creatinine [Mass/Vol] Creatinine R 1.1 MG/DL (0.4-1.6 MG/DL) 0.4 - 1.6 MG/DL S Glucose [Mass/Vol] Glucose 122 MG/DL H (65-99 MG/DL) High 65 - 99 MG/DL [facility] Potassium [Moles/Vol] Potassium R 3.9 MMOL/L (3.4-5.1 MMOL/L) 3.4 - 5.1 MMOL/L [facility] Protein [Mass/Vol] Total Protein 7.3 G/DL (5.9-7.9 G/DL) 5.9 - 7.9 G/DL S Sodium [Moles/Vol] Sodium 136 MMOL/L (133-145 MMOL/L) 133 - 145 MMOL/L [facility] Urea nitrogen [Mass/Vol] BUN 20 MG/DL (8-25 MG/DL) 8 - 25 MG/DL [facility] Urea nitrogen/Creatinine [Mass ratio] BUN Creatinine Ratio 18.2 RATIO (8-21 RATIO) 8 - 21 RATIO [facility] Otheron 09-23-2020 FLUAV RNA JERRELL+probe Ql (Nph) FLU A by PCR NEGATIVE (Reference Range: not available) [facility] FLUBV RNA JERRELL+probe Ql (Nph) FLU B by PCR NEGATIVE (Reference Range: not available) [facility] SARS-CoV-2 by PCR NEGATIVE (NEG ) [facility] Albumin/Globulin [Mass ratio] Albumin Globulin Ratio 1.7 RATIO (1.5-3.0 RATIO) 1.5 - 3.0 RATIO [facility] ALP (Bld) [Catalytic activity/Vol] Alk Phosphatase 137 U/L H (35-125 U/L) High 35 - 125 U/L [facility] Amphetamines Screen method >1000 ng/mL Ql (U) Urine Amphetamine NEGATIVE (Reference Range: not available) [facility] Bacteria Auto Ql (U) Bacteria NEGATIVE (Reference Range: not available) [facility] Barbiturates Screen method >300 ng/mL Ql (U) Urine Barbiturate NEGATIVE (Reference Range: not available) [facility] Benzodiazepines Screen method >300 ng/mL Ql (U) Urine Benzodiazepine NEGATIVE (Reference Range: not available) [facility] Benzoylecgonine Screen method >300 ng/mL Ql (U) Urine Cocaine Metabolites NEGATIVE (Reference Range: not available) [facility] Bilirubin Ql (U) Bili NEGATIVE (NEG ) [facility] Cannabinoids Screen method >50 ng/mL Ql (U) THC/Cannabinoids NEGATIVE (Reference Range: not available) [facility] Differential cell count method Nom (Bld) Diff Type AUTO DIFF (Reference Range: not available) [facility] Drug screen comment (U) [Interp] Urine Drug Comment These Toxicological Screening Tests provide unconfirmed qualitative measurements to aid in treatment and diagnosis in cases of drug use or overdose. This test is used only for medical purposes. A positive result does not indicate or measure intoxication. For specific test performance or pathologist consultation, please contact the Laboratory. The following threshold concentrations are used for these analyses. Values at or above the threshold concentration are reported as Positive. Values below the threshold are reported as negative. Drug Screening Threshold ------ THC/CANNABINOIDS 50 ng/ml METHADONE 300 ng/ml COCAINE METABOLITES 300 ng/ml BENZODIAZEPINE 300 ng/ml PCP 25 ng/ml OPIATE 300 ng/ml AMPHETAMINE/ECSTASY 1000 ng/ml BARBITURATE 200 ng/ml OXYCODONE 100 ng/ml Performed at [address] [address] (Reference Range: not available) [facility] Epithelial cells.squamous Auto Ql (U) Urine squamous epi NONE SEEN /HPF (Reference Range: not available) [facility] Erythrocyte distribution width (RBC) [Entitic vol] RDW SD 43.1 FL (37.0-54.0 FL) 37.0 - 54.0 FL [facility] Erythrocyte distribution width (RBC) [Ratio] RDW CV 13.1 % (11.7-15.0 %) 11.7 - 15.0 % [facility] Globulin (S) [Mass/Vol] Globulin 2.7 G/D L (1.9-3.7 G/DL) 1.9 - 3.7 G/DL [facility] Glucose Auto test strip (U) [Mass/Vol] Gluc NEGATIVE mg/dL (NEG mg/dL) [facility] Hemoglobin Auto test strip Ql (U) RBC 1 /HPF (0-3 /HPF) 0 - 3 /HPF [facility] Hemoglobin Ql (U) Blood NEGATIVE (NEG ) [facility] Hyaline casts Auto Ql (U) Urine hyaline cast NONE SEEN /LPF (Reference Range: not available) [facility] Immature granulocytes (Bld) [#/Vol] Abs Imm Neut 0.03 K/UL (0.0-0.1 K/UL) 0.0 - 0.1 K/UL [facility] Ketones Auto test strip Ql (U) Urine Ketone SMALL A (NEG ) Abnormal [facility] Leukocyte esterase Auto test strip Ql (U) Leuk NEGATIVE (NEG ) [facility] MCHC (RBC) [Mass/Vol] MCHC 31.9 % (31-37 %) 31 - 37 % [facility] Neutrophils.immature/10 0 WBC (Bld) Immature Neut % 0.20 % (0.0-1.0 %) 0.0 - 1.0 % [facility] Nitrite Auto test strip Ql (U) Nit NEGATIVE (NEG ) [facility] Nucleated RBC/100 WBC (Bld) [Ratio] NRBCs 0 /100 WBC (0 /100 WBC) [facility] Opiates Screen method >300 ng/mL Ql (U) Urine Opiate NEGATIVE (Reference Range: not available) [facility] Oxycodone Ql (U) Urine Oxycodone NEGATIVE (Reference Range: not available) [facility] pH (U) Urine pH 6.0 (4.6-8.0 ) 4.6 - 8.0 [facility] Phencyclidine Screen method >25 ng/mL Ql (U) Urine PCP NEGATIVE (Reference Range: not available) [facility] Platelet mean volume (Bld) [Entitic vol] MPV 11.0 CU (7.0-12.6 CU) 7.0 - 12.6 CU [facility] Segmented neutrophils/100 WBC (Bld) Granulocyte 73.60 % (34-82 %) 34 - 82 % [facility] Urobilinogen Auto test strip Ql (U) Uro NORMAL MG/DL (0-1.0 MG/DL) 0 - 1.0 MG/DL [facility] WBC Auto (Urine sed) [#/Area] WBC NONE SEEN /HPF (0-3 /HPF) 0 - 3 /HPF [facility] Reflex to Urine Culture CULTURE NOT INDICATED Performed at [facility] [address] [place] [id number] (Reference Range: not available) [facility] Microscopic AUTOMATIC MICROSCOPIC URINES (Reference Range: not available) [facility] Urinalysison 09-23-2020 Clarity (U) Urine Clarity CLEAR (Reference Range: not available) [facility] Color (U) Urin color YELLOW (Reference Range: not available) [facility] Methadone Ql (U) Urine Methadone NEGATIVE (Reference Range: not available) [facility] Protein (U) [Mass/Vol] Prot TRACE mg/dL A (NEG mg/dL) Abnormal [facility] Specific gravity (U) [Rel density] Urine Sp [place] 1.026 (1.005-1.030 ) 1.005 - 1.030 [facility] NR MRI CERVICAL WOon 021 NR MRI CERVICAL WO Patient Name: CAMERON TERESA STUDY: MRI of the cervical spine without contrast. INDICATION: syncope, age-indeterminate irregularity involving the anterior/superior aspect of the C5 vertebral body. COMPARISON: CT cervical spine 08/31/2020 ACCESSION NUMBER(S): [id number] ORDERING CLINICIAN: FAHEEM LINDSAY TECHNIQUE: Multiplanar, multisequence imaging of the cervical spine was performed without contrast. FINDINGS: Sulcal artifact distorts evaluation of the superior cervical spine. Evaluation is suboptimal due to motion artifact. Within this confine: Alignment: Unremarkable. Bones: Deformity of the anterior superior aspect of the C5 vertebral body without edema, likely a chronic injury. Cord: Unremarkable. Disc spaces: Unremarkable. Other: Unremarkable. IMPRESSION: 1. Suboptimal exam given metallic artifact and motion. 2. Deformity of the anterior superior aspect of C5 without edema, likely a chronic injury. 3. No acute finding. Electronically signed by: CHAIM DOSS MD Normal [facility] Provider Note - ED Care [place] sitionon 09-01-2020 Provider Note - ED Care Transition ED Care Transition: Chart Review: ED NOTES ED NOTES: Signed out by Dr. Houston with MRI pending. MRI without acute findings. Ok to dc home. CLINICAL IMPRESSION Diagnosis/Annotation : ED Dx Name:Syncope Code:R55 Disposition: discharged ATTESTATION CRITICAL CARE TIME Is this a critically ill patient: no Electronic Signatures: Millicent Ross) (Signed 01-Sep-2020 02:17) Authored: ED Notes, Clinical Impression, Attestation, Chart Review, Scores Last Updated: 01-Sep-2020 02:17 by Millicent Ross) Normal [facility] CBC AND DIFFERENTIALon 08-31 % AUTOMATED IMMATURE GRAN 0.2 % Normal 0.0 - 1.0 [facility] Comment on above: Result Comment: Jessica ture Granulocyte Count (IG) includes promyelocytes, myelocytes and metamyelocytes but does not include bands. Percent differential counts (%) should be interpreted in the context of the absolute cell counts (cells/L). Performed By: #### C BCDF #### [facility] [address] [place] [address] Basophils (Bld) [#/Vol] 0.02 10*3/uL Normal 0.00 - 0.1 0 [facility] Comment on above: Performed By: #### C BCDF #### [facility] [address] [place] [address] Basophils/100 WBC (Bld) 0.2 % Normal 0.0 - 1.0 [facility] Comment on above: Performed By: #### C BCDF #### [facility] [address] [place] [address] Eosinophils (Bld) [#/Vol] 0.04 10*3/uL Normal 0.00 - 0.70 [facility] Comment on above: Performed By: #### C BCDF #### [facility] [address] [place] [address] Eosinophils/100 WBC (Bld) 0.5 % Normal 0.0 - 5.0 [facility] Comment on above: Performed By: #### C BCDF #### [facility] [address] [place] [address] Erythrocyte distribution width (RBC) [Ratio] 12.9 % Normal 11.5 - 14.5 [facility] Comment on above: Performed By: #### C BCDF #### [facility] [address] [place] [address] Hematocrit (Bld) [Volume fraction] 47.3 % Normal 37.0 - 49.0 [facility] Comment on above: Performed By: #### C BCDF #### [facility] [address] [place] [address] Hemoglobin (Bld) [Mass/Vol] 15.8 g/dL Normal 13.0 - 16.0 [facility] Comment on above: Performed By: #### C BCDF #### [facility] [address] [place] [id number] Lymphocytes (Bld) [#/Vol] 1.53 10*3/uL Low 1.80 - 4.80 [facility] Comment on above: Performed By: #### C BCDF #### [facility] [address] [place] [address] Lymphocytes/100 WBC (Bld) 18.1 % Normal 28.0 - 48.0 [facility] Comment on above: Performed By: #### C BCDF #### [facility] [address] [place] [address] MCHC (RBC) [Mass/Vol] 33.4 g/dL Normal 31.0 - 37.0 [facility] Comment on above: Performed By: #### C BCDF #### [facility] [address] [place] [address] MCV (RBC) [Entitic vol] 87 fL Normal 78 - 102 [facility] Comment on above: Performed By: #### C BCDF #### [facility] [address] [place] [id number] Monocytes (Bld) [#/Vol] 0.58 10*3/uL Normal 0.10 - 1.0 0 [facility] Comment on above: Performed By: #### C BCDF #### [facility] [address] [place] [address] Monocytes/100 WBC (Bld) 6.8 % Normal 3.0 - 9.0 [facility] Comment on above: Performed By: #### C BCDF #### [facility] [address] [place] [id number] Neutrophils (Bld) [#/Vol] 6.28 10*3/uL Normal 1.20 - 7.70 [facility] Comment on above: Performed By: #### C BCDF #### [facility] [address] [place] [address] Neutrophils/100 WBC (Bld) 74.2 % Normal 33.0 - 69.0 [facility] Comment on above: Performed By: #### C BCDF #### [facility] [address] [place] [id number] Platelets (Bld) [#/Vol] 213 10*3/uL Normal 150 - 400 [facility] Comment on above: Performed By: #### C BCDF #### [facility] [address] [place] [id number] RBC 5.46 x10E12/L High 4.50 - 5.30 [facility] Comment on above: Performed By: #### C BCDF #### [facility] [address] [place] [id number] WBC (Bld) [#/Vol] 8.5 10*3/uL Normal 4.5 - 13.5 [facility] Comment on above: Performed By: #### C BCDF #### [facility] [address] [place] [id number] COMPREHENSIVE PANELon 2020 Albumin [Mass/Vol] 4.7 g/dL Normal 3.4 - 5.0 [facility] Comment on above: Performed By: #### C MP #### [facility] [address] [place] [address] ALP [Catalytic activity/Vol] 123 U/L Normal 33 - 139 [facility] Comment on above: Performed By: #### C MP #### [facility] [address] [place] [address] ALT [Catalytic activity/Vol] 20 U/L Normal 3 - 28 [facility] Comment on above: Result Comment: Moisés ents treated with Sulfasalazine may generate falsely decreased results for ALT. Performed By: #### C MP #### [facility] [address] [place] [address] Anion gap [Moles/Vol] 15 mmol/L Normal 10 - 30 [facility] Comment on above: Performed By: #### C MP #### [facility] [address] [place] [address] AST [Catalytic activity/Vol] 24 U/L Normal 9 - 32 [facility] Comment on above: Performed By: #### C MP #### [facility] [address] [place] [address] Bilirubin [Mass/Vol] 0.3 mg/dL Normal 0.0 - 0.9 [facility] Comment on above: Performed By: #### C MP #### [facility] [address] [place] [address] Calcium [Mass/Vol] 9.6 mg/dL Normal 8.5 - 10.7 [facility] Comment on above: Performed By: #### C MP #### [facility] [address] [place] [address] Chloride [Moles/Vol] 103 mmol/L Normal 98 - 107 [facility] Comment on above: Performed By: #### C MP #### [facility] [address] [place] [address] Creatinine [Mass/Vol] 1.01 mg/dL Normal 0.60 - 1.10 [facility] Comment on above: Performed By: #### C MP #### [facility] [address] [place] [address] Glucose [Mass/Vol] 123 mg/dL High 74 - 99 [facility] Comment on above: Performed By: #### C MP #### [facility] [address] [place] [address] HCO3 (Bld) [Moles/Vol] 26 mmol/L Normal 18 - 27 [facility] Comment on above: Performed By: #### C MP #### [facility] [address] [place] [address] Potassium [Moles/Vol] 4.1 mmol/L Normal 3.5 - 5.3 [facility] Comment on above: Performed By: #### C MP #### [facility] [address] [place] [address] Protein [Mass/Vol] 7.0 g/dL Normal 6.2 - 7.7 [facility] Comment on above: Performed By: #### C MP #### [facility] [address] [place] [address] Sodium [Moles/Vol] 140 mmol/L Normal 136 - 145 [facility] Comment on above: Performed By: #### C MP #### [facility] [address] [place] [address] Urea nitrogen [Mass/Vol] 16 mg/dL Normal 6 - 23 [facility] Comment on above: Performed By: #### C MP #### [facility] [address] [place] [address] CT C-SPINE WO CONTRASTon CT C-SPINE WO CONTRAST Patient Name: CAMERON TERESA STUDY: CT HEAD WO CONTRAST; CT FACIAL BONES; CT C-SPINE WO CONTRAST; 08/31/2020 9:55 pm INDICATION: syncope, hit right side of face and head. COMPARISON: None. ACCESSION NUMBER(S): [id number]; [id number]; [id number] ORDERING CLINICIAN: FAHEEM LINDSAY TECHNIQUE: Axial noncontrast CT images of the head with coronal and sagittal reconstructions.. 3D images of the head were created and reviewed. Axial noncontrast CT images of the facial bones with coronal and sagittal reconstructed images. 3D images of the face were created and reviewed. Axial noncontrast CT images of the cervical spine with coronal and sagittal reconstructed images. FINDINGS: EXTRACRANIAL SOFT TISSUES: Right periorbital soft tissue swelling. CALVARIUM: No depressed skull fracture. No destructive osseous lesion. PARANASAL SINUSES/MASTOIDS: The visualized paranasal sinuses and mastoid air cells are aerated. HEMORRHAGE: No acute intracranial hemorrhage. BRAIN PARENCHYMA: Rodriguez-white matter interfaces are preserved. No mass effect or midline shift. VENTRICLES and EXTRA-AXIAL SPACES: Normal size. FACIAL BONES: No acute facial bone fracture. ORBITS: The globes and extraocular muscles are symmetric. No retrobulbar hematoma. ALIGNMENT: Normal. VERTEBRAE: Age-indeterminate irregularity involving the anterior/superior aspect of the C5 vertebral body. No bony retropulsion. DISC SPACE: No significant disc space narrowing. SPINAL CANAL: No critical spinal canal stenosis. PREVERTEBRAL SOFT TISSUES: No prevertebral soft tissue swelling. LUNG APICES: Imaged portion of the lung apices are within normal limits. OTHER FINDINGS: None. IMPRESSION: Right periorbital soft tissue swelling compatible with soft tissue contusion in the setting of trauma. No underlying fracture. No acute intracranial abnormality. No acute facial bone fracture. Age-indeterminate irregularity involving the anterior/superior aspect of the C5 vertebral body. Correlate with point tenderness. There is no bony retropulsion or adjacent soft tissue swelling. No traumatic malalignment. Electronically signed by: GORGE BRAXTON MD [facility] CT FACIAL BONESon 08-31-2020 CT FACIAL BONES Patient Name: CAMERON TERESA STUDY: CT HEAD WO CONTRAST; CT FACIAL BONES; CT C-SPINE WO CONTRAST; 08/31/2020 9:55 pm INDICATION: syncope, hit right side of face and head. COMPARISON: None. ACCESSION NUMBER(S): [id number]; [id number]; [id number] ORDERING CLINICIAN: FAHEEM LINDSAY TECHNIQUE: Axial noncontrast CT images of the head with coronal and sagittal reconstructions.. 3D images of the head were created and reviewed. Axial noncontrast CT images of the facial bones with coronal and sagittal reconstructed images. 3D images of the face were created and reviewed. Axial noncontrast CT images of the cervical spine with coronal and sagittal reconstructed images. FINDINGS: EXTRACRANIAL SOFT TISSUES: Right periorbital soft tissue swelling. CALVARIUM: No depressed skull fracture. No destructive osseous lesion. PARANASAL SINUSES/MASTOIDS: The visualized paranasal sinuses and mastoid air cells are aerated. HEMORRHAGE: No acute intracranial hemorrhage. BRAIN PARENCHYMA: Rodriguez-white matter interfaces are preserved. No mass effect or midline shift. VENTRICLES and EXTRA-AXIAL SPACES: Normal size. FACIAL BONES: No acute facial bone fracture. ORBITS: The globes and extraocular muscles are symmetric. No retrobulbar hematoma. ALIGNMENT: Normal. VERTEBRAE: Age-indeterminate irregularity involving the anterior/superior aspect of the C5 vertebral body. No bony retropulsion. DISC SPACE: No significant disc space narrowing. SPINAL CANAL: No critical spinal canal stenosis. PREVERTEBRAL SOFT TISSUES: No prevertebral soft tissue swelling. LUNG APICES: Imaged portion of the lung apices are within normal limits. OTHER FINDINGS: None. IMPRESSION: Right periorbital soft tissue swelling compatible with soft tissue contusion in the setting of trauma. No underlying fracture. No acute intracranial abnormality. No acute facial bone fracture. Age-indeterminate irregularity involving the anterior/superior aspect of the C5 vertebral body. Correlate with point tenderness. There is no bony retropulsion or adjacent soft tissue swelling. No traumatic malalignment. Electronically signed by: GORGE BRAXTON MD [facility] CT HEAD WO CONTRASTon 2020 CT HEAD WO CONTRAST Patient Name: CAMERON TERESA STUDY: CT HEAD WO CONTRAST; CT FACIAL BONES; CT C-SPINE WO CONTRAST; 08/31/2020 9:55 pm INDICATION: syncope, hit right side of face and head. COMPARISON: None. ACCESSION NUMBER(S): [id number]; [id number]; [id number] ORDERING CLINICIAN: FAHEEM LINDSAY TECHNIQUE: Axial noncontrast CT images of the head with coronal and sagittal reconstructions.. 3D images of the head were created and reviewed. Axial noncontrast CT images of the facial bones with coronal and sagittal reconstructed images. 3D images of the face were created and reviewed. Axial noncontrast CT images of the cervical spine with coronal and sagittal reconstructed images. FINDINGS: EXTRACRANIAL SOFT TISSUES: Right periorbital soft tissue swelling. CALVARIUM: No depressed skull fracture. No destructive osseous lesion. PARANASAL SINUSES/MASTOIDS: The visualized paranasal sinuses and mastoid air cells are aerated. HEMORRHAGE: No acute intracranial hemorrhage. BRAIN PARENCHYMA: Rodriguez-white matter interfaces are preserved. No mass effect or midline shift. VENTRICLES and EXTRA-AXIAL SPACES: Normal size. FACIAL BONES: No acute facial bone fracture. ORBITS: The globes and extraocular muscles are symmetric. No retrobulbar hematoma. ALIGNMENT: Normal. VERTEBRAE: Age-indeterminate irregularity involving the anterior/superior aspect of the C5 vertebral body. No bony retropulsion. DISC SPACE: No significant disc space narrowing. SPINAL CANAL: No critical spinal canal stenosis. PREVERTEBRAL SOFT TISSUES: No prevertebral soft tissue swelling. LUNG APICES: Imaged portion of the lung apices are within normal limits. OTHER FINDINGS: None. IMPRESSION: Right periorbital soft tissue swelling compatible with soft tissue contusion in the setting of trauma. No underlying fracture. No acute intracranial abnormality. No acute facial bone fracture. Age-indeterminate irregularity involving the anterior/superior aspect of the C5 vertebral body. Correlate with point tenderness. There is no bony retropulsion or adjacent soft tissue swelling. No traumatic malalignment. Electronically signed by: GORGE BRAXTON MD [facility] Provider Note - ED v2on 03-0 Provider Note - ED v2 Provider Note - ED v2: Chart Review: ED NOTES ED NOTES: HPI: This is a 15-year-old male presents emergency department for syncopal episode. Patient is at a rehab/psych facility. States he was alone in the workout room. He felt a pressure over his entire body. He then passed out. When he woke up he noticed a lot of blood. States he was little bit confused initially but quickly returned to his normal self. Denied biting his tongue. No bowel or bladder incontinence. States he has a frontal headache. Describes it as a ache and rates it a 5 out of 10. Not has tried thing for the headache. Patient has abrasions to the anterior aspect of his neck. Denied strangulation or assault. His immunizations are up-to-date. Denied vision issues, neck pain, chest pain, shortness of breath, or abdominal pain. No personal cardiac issues. No family history of sudden cardiac . Family HX: Denies any significant/pertinen t family history. Social Hx: Polysubstance drug use previously Review of Systems: Gen.: No weight loss, fatigue, anorexia, insomnia, fever. Eyes: No vision loss, double vision, drainage, eye pain. ENT: No pharyngitis, dry mouth. Cardiac: See HPI Pulmonary: No shortness of breath, cough, hemoptysis. GI: No abdominal pain, change in bowel habits, melena, hematemesis, hematochezia, nausea, vomiting, diarrhea. : No discharge, dysuria, frequency, urgency, hematuria. Musculoskeletal: No limb pain, joint pain, joint swelling. Skin: See HPI Review of systems is otherwise negative unless stated above or in history of present illness. Physical exam General: Vitals noted, no distress. HEENT: Normocephalic atraumatic. Left TM unremarkable. Right TM unremarkable. Nontender of the mastoids. External auditory canals unremarkable. Eyes unremarkable. Eyes PERRLA. Extraocular movements are intact. Posterior oropharynx unremarkable. Patient does have braces. No hemotympanum, raccoon eyes, or suárez sign. Neck: Supple. Trachea midline. No anterior or posterior cervical lymphadenopathy. Patient has several abrasions over the anterior aspect of the neck with 2 being in a linear distribution. The hyoid bone is nontender. Cardiac: Regular rate and rhythm. No murmurs, gallops, or rubs. No peripheral edema of lower extremities. Pulmonary: Lungs clear bilaterally with good aeration. No adventitious breath sounds. Abdomen: Soft, nontender, nonsurgical. No peritoneal signs. Normoactive bowel sounds. Musculoskeletal: Normal range of motion of all extremities. No tenderness to palpation of the cervical, thoracic, lumbar spinous processes. Full range of motion of upper and lower extremities. He is able to ambulate. Skin: Abrasion of right hand. Patient has a 1 cm laceration just lateral to the right eye. Abrasions of forehead. Neuro: No focal neurologic deficits. Alert and oriented x4. GCS 15 Medical Decision-Making: Summary: This is a 15-year-old male presents emergency department for syncopal episode. He is afebrile at 96.9 Fahrenheit. Heart rate 84 bpm. Respiratory rate 16. O2 saturation 100% room air. Blood pressure 156/98. In regard to the abrasions that are in a linear distribution the patient's anterior neck. I specifically asked the patient if this is result of strangulation or assault. He denied both. He has no hard vascular signs. There are no neuro deficits in the upper extremities. EKG demonstrates normal sinus rhythm with sinus arrhythmia, ventricular rate 72 bpm, DE interval 146, QRS duration 86, QTc 387, R and R', no ST elevation per my read. CBC, CMP, troponin unremarkable. CT scan of head demonstrates no acute intracranial abnormality. CT scan of facial bones demonstrate no acute facial bone fracture, right periorbital soft tissue swelling. CT scan cervical spine demonstrates age-indeterminate irregularity involving the anterior/superior aspect of the C5 vertebral body, correlate with point tenderness, there is no bony repulsion or adjacent soft tissue swelling, no traumatic malalignment. I did discuss with trauma surgery at [facility], Dr. Hopkins, who recommended MRI of the cervical spine to further evaluate. MRI was obtained and demonstrates deformity of the anterior superior aspect of C5 without edema, likely a chronic injury, no acute findings. I discussed findings with patient and family. I did provide them a copy of the MRI report for their personal records. 4 sutures were used to close the laceration. Sutures out 3 to 5 days. Please see procedure note. Wound care was discussed with patient. Bacitracin and a bandage was placed by nursing. Prior to discharge mom states patient has been dealing with a wart on his right thumb for a while. She states they have tried freezing it at home without success. She asked if there is anything that I could given. Did give him a prescription of salicylic acid. If this does not help then patient is to follow-up (more content not included)... Normal [facility] TROPONIN Ion 08-31-2020 Troponin I.cardiac [Mass/Vol] ng/mL Normal 0.00 - 0.03 [facility] Comment on above: Result Comment: LESS THAN 0.04 NG/ML: NEGATIVE REPEAT TESTING IN THREE TO SIX HOURS IF CLINICALLY INDICATED. 0.04 - 0.5 NG/ML: CONSISTENT WITH POSSIBLE CARDIAC DAMAGE AND POSSIBLE INCREASED CLINICAL RISK. SERIAL MEASUREMENTS MAY HELP ASSESS EXTENT OF MYOCARDIAL DAMAGE. >0.5 NG/ML: CONSISTENT WITH CARDIAC DAMAGE, INCREASED CLINICAL RISK AND MYOCARDIAL INFARCTION. SERIAL MEASUREMENTS MAY HELP ASSESS EXTENT OF MYOCARDIAL DAMAGE. . Note: Troponin I testing is performed using different testing methodology at [facility] than at other [facility]. Direct result comparisons should only be made within the same method. Performed By: #### T ROP2 #### [facility] [address] [place] [address] Triage - ED Pedson Triage - ED Peds Triage: Chart Review: CHIEF COMPLAINT CAMERON TERESA is a 15 year old Male patient with a chief complaint of syncope. Other Complaints: at approx 1920 pt was pacing and had an unwitnessed syncopal episode while pacing back and forth. pt states I just felt really heavy and was anxious and remember waking up in a pool of blood pt has laceration next to R eye. reports HARRELL Triage Date/Time: 31-Aug-2020 19:58 Vital Signs: Temperature: 96.9F ( 36.0C) Blood Pressure: 156/98 Mean: Heart Rate: 84 Respiratory Rate: 16 Pulse Oximetry: 100% Capillary Refill: < 2 seconds Weight: 80.000 kilogram(s) Weight Method Used: stated Pain Scale: FLACC ( 1- 18 yrs) Face: (0) no particular expression or smile Legs: (0) normal position or relaxed Cry: (0) no cry (awake or asleep) Consolability: (0) content, relaxed Activity: (0) lying quietly, normal position, moves easily FLACC Score: 0 [place] Coma Scale Peds (2yrs to Adult): Best Eye Response: (E4) spontaneous Best Verbal Response: (V5) oriented Best Motor Response: (M6) obeys commands Lorenza Coma Scale Score: 15 Cough Lasting Greater than 2 Weeks: no Allergies: no Mask Applied: yes Patient has Homicidal Thoughts: no Acuity Level: 2 Peds Complaint Code ([facility]): N/A [facility] ABCD PRIMARY ASSESSMENT CAMERON TERESA's primary assessment is Within Defined Limits. The airway is open and patent. Breathing spontaneous and unlabored with clear breath sounds bilaterally. Circulation is normal with good peripheral pulses. Skin is warm and dry and color is normal for race. Alert and appropriate for age. RISK SCREEN [place] Suicide Risk Screen Risk Screen Not Applicable/Able to Answer: able to be screened In the Past Month: Have you wished you were or could go to sleep and not wake up no Have you had any actual thoughts of killing yourself no Lifetime: Have you ever done, started to or prepared to do anything to end your life no TRAVEL HISTORY Travel History Coronavirus Screening: no exposure or symptoms Past Medical History: Past Medical History Reviewedyes Electronic Signatures: Magui Lam (AGUILA) (Signed 31-Aug-2020 20:03) Authored: Quick Triage, Risk Screens, Chart Review, Scores, Past Medical History Last Updated: 31-Aug-2020 20:03 by Magui Lam ([email or web address]) Normal [facility] COMPLETE BLOOD COUNTon 08-19 Erythrocyte distribution width (RBC) [Ratio] 13.6 % Normal 11.5-14.5 [facility] Comment on above: Performed By: #### C BC #### [facility] [address] [place] [address], Hematocrit (Bld) [Volume fraction] 47.5 % Normal 37.0-49.0 [facility] Comment on above: Performed By: #### C BC #### [facility] [address] [place] [address], Hemoglobin (Bld) [Mass/Vol] 15.5 g/dL Normal 13.2-15.[address] [facility] Comment on above: Performed By: #### C BC #### [facility] [address] [place] [address], MCH (RBC) [Entitic mass] 28.2 pg Normal 25.0-35.[address] [facility] Comment on above: Performed By: #### C BC #### [facility] [address] [place] [address], MCHC (RBC) [Mass/Vol] 32.6 g/dL Normal 32.0-35.[address] [facility] Comment on above: Performed By: #### C BC #### [facility] [address] [place] [address], MCV (RBC) [Entitic vol] 86 fL Normal 78-[address] [facility] Comment on above: Performed By: #### C BC #### [facility] [address] [place] [address], Platelet mean volume (Bld) [Entitic vol] 9.6 fL Normal 7.5-11.[address] [facility] Comment on above: Performed By: #### C BC #### [facility] [address] [place], [place], Platelets (Bld) [#/Vol] 155 10*3/uL Normal 150-400 [facility] Comment on above: Performed By: #### C BC #### [facility] [address], [place], RBC (Bld) [#/Vol] 5.49 10*6/uL High 4.50-5.30 [facility] Comment on above: Performed By: #### C BC #### [facility] [address], [place], WBC (Bld) [#/Vol] 4.6 10*3/uL Normal 4.5-13.0 [facility] Comment on above: Performed By: #### C BC #### [facility] [address] [place] [address], TSHon 08-19-2020 TSH Qn 2.625 uIU/mL Normal 0.700-6.000 [facility] Comment on above: Performed By: #### T SH HS #### [facility] [address] [place] [address], VITAMIN D, 25-HYDROXYon 07-29 VITD25 29.7 ng/mL Low 30.0-100.[address] [facility] Comment on above: Performed By: #### V ITD25 #### [facility] [address] [place] [address], NURSING PROGon 06-10-2020 NURSING PROG HNO ID: [id number] Author: Mingo (Rn) Rashaad RN Service: Nursing Author Type: Registered Nurse Type: Nursing Progress Note Filed: 06/10/2020 11:32 AM Note Text: Nursing Progress Note Patient Name: Cameron Teresa Patient Location: [id number]/[facility]-00 Daily Note: Pt awake at 0800, standing in doorway. Pt assessed with C-SSRS, scoring no risk for suicide. Pt med compliant. Requesting nicotine patch- given. Pt continues to express anger towards chan stating She is trying to control everything, it's not right that I can't see my mom here or when I go to [facility]. Pt requesting to speak with DELILAH and 0900- DELILAH met with pt and this RN - discussed pt's opinion about bio mom and guidelines here. Dr. Perez met with pt and confirmed with pt that our medical staff spoke with stepmom and bio Dad (guardians) and used that info to put mom cigarette carton sealer list and limit it to 1 call per day and no visits at this time. Pt mumbled that's bull shit after LIP left room. 1100- Pt is calm at this time and is in school. This note was completed by: Mingo Neil RN [facility] NURSING PROG HNO ID: [id number] Author: Sylwia (Rn) AGUILA Jarvis Service: Nursing Author Type: Registered Nurse Type: Nursing Progress Note Filed: 06/10/2020 2:02 AM Note Text: Nursing Progress Note Patient Name: Cameron Teresa Patient Location: [id number]/[facility] -4505-00 Daily Note: Patient awake in room at time of assessment. Assessed via the C-SSRS screening assessment tool, and determined to be no risk for SI, however, routine precautions remain in place per protocol. Medication compliant. Denies pain/physical discomfort. Patient discharge focused. Notified by this RN of discharge plan for Sunday 06/10. Patient observed to be in good spirits after hearing d/c plan. Nicotine patch placement verified as per order. Educated completed on patch. Patient verbalized his feelings of agitation regarding the rules of unit ( not being able to walk in halls). Discussed coping skills with patient. Will continue to monitor for comfort and safety. 2224- Patient asleep at 2224. Respirations appear even and unlabored. No signs of distress noted. Will continue to monitor for comfort and safety. 0200- Patient observed waking up briefly several times throughout the night. Able to fall back asleep quickly. No new needs reported at this time. Will continue to monitor for comfort and safety. This note was completed by: Sylwia Jarvis RN [facility] PLAN OF CAREon 06-10-2020 PLAN OF CARE HNO ID: [id number] Author: Corrine Munoz Service: Psychiatry Author Type: Physician Type: Plan of Care Filed: 06/10/2020 11:40 AM Note Text: BEHAVIORAL HEALTH INPATIENT INTERDISCIPLINARY TREATMENT PLAN UPDATE DATE INITIATED: 06/10/2020 11:17 AM Patient's Goal of Treatment: Get on meds and be stable Active Hospital Problems MDD (major depressive disorder) PTSD (post-traumatic stress disorder) Polysubstance abuse (HCC) Criteria for Discharge: Elimination/reductio n of presenting behavior: SI Estimated length of stay: 2-3 Interdisciplinary Treatment Plan Date Initiated: 06/06/20 Time Initiated: 0 Patient Participation in Initial Treatment Plan: Yes Initial Treatment Plan Date: 06/07/20 Other Participants: N/A Strengths/Assets: Insight into illness;Receiving outpatient treatment Limitations: Lack of social support(States he puts lee up) Precautions indicated: Close Observation;Routine Precautions;Suicide Individualized problems: Risk of harm to self;Risk of harm to others Problem - Discharge Needs Date Initiated: 06/07/20 Time Initiated: 012 Discharge Needs: Patient/Family will participate in the development of the Discharge Aftercare Plan;Resolve acute symptoms through medication management;Assess for appropriate level of care;Link/relink to community supports;Encourage patient to utilize appropriate coping skills;Encourage patient to maintain sobriety or explore ambivalence re: sobriety;Patient has identified at least one support person to contact in the event of relapse Interventions - Nursing: Administer medications as indicated and monitor patient for effect;Provide education to the patient and/or family about the disease process and management as appropriate;Provide non-judgmental supportive, empathetic and comprehensive trauma informed care Interventions - Social Work: Coordination with family;Coordination with outpatient providers;Develop aftercare plan Problem - Risk of Harm to Self Short Term Goals: Refrain from self injurious behavior Target Date Short Term Goals: 06/09/20 Progress Towards Short Term Goals: Progressing Compliance Auditor Goals: Identify positive alternatives to self-injurious behavior Target Date Longterm Goals: 06/11/20 Progress Towards Longterm Goals: Progressing Interventions - Nursing: Initiate safety measures to protect the patient from injury;Assist patient with developing a safety plan;Remain calm and firmly set limits for the patient's behaviors;Obtain baseline level of functioning on admission;Administer medications as indicated and monitor patient for effect;Provide education to the patient and/or family about the disease process and management as appropriate;Provide non-judgmental supportive, empathetic and comprehensive trauma informed care;Use therapeutic communication skills to develop patient trust and a nurse-patient relationship;Assess for signs of escalating emotions and help identify ways to appropriately express feelings;Assist with developing positive coping behaviors;Assess for escalating behavior and utilize de-escalation skills as needed;Encourage independence with daily functioning;Assist with activities of daily living, utilizing any necessary assistive devices;Monitor nutritional intake;Provide a quiet, restful environment to promote sleep/rest;Encourage patient participation in milieu activities Interventions - Social Work: Coordination with family;Coordination with outpatient providers Problem - Risk of Harm to Others Short Term Goals: Refrain from aggression towards others Target Date Short Term Goals: 06/09/20 Progress Towards Short Term Goals: Progressing Compliance Auditor Goals: Identify positive alternatives to aggession Target Date Longterm Goals: 06/11/20 Progress Towards Compliance Auditor Goals: Progressing Interventions - Nursing: Remain calm and firmly set limits for the patient's behaviors;Administer medications as indicated and monitor patient for effect;Provide education to the patient and/or family about the disease process and management as appropriate Interventions - Social Work: Coordination with family;Coordination with outpatient providers Staff in attendance and in agreement with this plan: Attending: Dr. Munoz Resident: Dr Perez Physician Erp Engineer: Matthew Ellison Nurse: KEN Madsen, RN Credit Review Manager: Linnea Hester Pharmacy: [facility] Recreational Therapy: Loly Chand This plan was reviewed with patient/family. Attending Psychiatrist: Dr. Munoz DOCUMENTED BY: Mingo Neil, RN PATIENT NAME: Cameron Teresa DATE: June 10, 2020 TIME: 11:17 AM PAGER/CONTACT #: [facility] SOCIAL WORKon 12-15-2020 SOCIAL WORK HNO ID: [id number] Author: Alvaro Mims (Sw) Service: Social Work Author Type: Credit Review Manager Type: Social Work Filed: 06/10/2020 9:04 AM Note Text: CHILD AND ADOLESCENT PSYCHIATRY SOCIAL WORK ONGOING ASSESSMENT PATIENT NAME: Cameron Teresa ADDRESS: [address] [place], [place] [id number] COUNTY: [place] ADMIT DATE: 06/06/2020 DATE of SERVICE: 06/10/2020 Cameron was discussed in treatment team. Cameron is ready for discharge at the time of this note. 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 Spoke with step mother, Noa, to confirm discharge for today back to [facility] via ambulance, step mother confirmed this is the plan and did not have any other questions at this time. Follow-up: ? Inpatient Substance Abuse treatment/Psychiatry and therapy services Name:?Regina, therapist - Viki, structural steel erection supervisor? ext [phone] Agency: [facility] Location:?[address] [place] [address] Phone:? Appointment: June 10, 2020 at 1:30pm ? Current psychiatrist Name:?Dr. Benjamin Agency:?[facility] Location:?[facility] Phone:?[phone] Next appointment: to be made after [facility] placement? ? Current therapist?(has not seen for several months due to IHBT AND [facility]) Name:?Millicent Sahni Agency:?[facility] Location:?[facility] Phone:?[phone] Next appointment confirmed???No - to be considered once treatment at [facility] is completed. ? IHBT from November to April Name:?Germain Agency:?[facility] Location:?[place] [facility] Phone:?[phone] Next appointment: to made after [facility] placement ? [facility] and [facility] Name: Marielos Durbin Agency: [facility] ? ? ? Other residentials to consider after [facility] 1. Denny MOLINA located at?[address] [place] [address], phone:?[phone], ?[email or web address] 4. [facility], location: [place] Phone:?[phone] - parent must call to follow up 5. Claire located at?[address] [place] [address], phone: [phone], fax: [phone] 6. Briseyda located at?[address] [place] [address], phone:? SIGNATURE: ORESTES Ornelas DATE of SERVICE: 06/10/2020 TIME of SERVICE: 8:18 AM [facility] 06-09-2020 ALLIED HEALTH HNO ID: [id number] Author: Linnea (Therapist) Mendy Service: Music Therapy Author Type: Therapist Type: Allied Health Filed: 06/09/2020 9:48 PM Note Text: Name: Cameron Teresa INPATIENT MUSIC THERAPY Patient was seen June 09, 2020 at 19:45 for 60 minutes. Type of session: group Focus of Session: peer interaction, relaxation/coping skills, participation Interventions: music assisted relaxation/imagery, song sharing Comments: Pt presented as quiet and interactive with other group members through eye contact and active listening. Pt practiced peer interaction through sharing a song related to his day; however, the song was inappropriate for group and no instrumental was available and pt chose to not discuss the song and gave short answers repeated by other group members while discussing his day with the group. Pt practiced coping skills through coloring to pt preferred recorded music. Plan: Treatment continued as schedule allows, ITP reviewed Therapist: Linnea Brooke [facility] HNO ID: [id number] Author: Pearl BeckhamTin Roller Hot MillShanique Chand Service: Recreational Therapy Author Type: Therapist Type: Allied Health Filed: 06/09/2020 4:41 PM Note Text: RECREATIONAL THERAPY NOTE CHILD AND ADOLESCENT PSYCHIATRY Name: Cameron Teresa Topic of Note: Progress Note DATE: 06/09/2020 TIME: 1100 Group Topic: Emotional Awareness Duration of Attendance: 40/60 minutes Brief Description of Performance: Pt present and minimally active in therapeutic group programming (emotional awareness grid). Pt was calm, cooperative; pt did not socialize with peers and did not participate in group discussion; Pt followed verbal directions with minimal assistance but did not complete the activity and excused self from group. Overall pt was disinterested and affect was flat. ? Signature: Pearl Chand, ART HANDLER Date: June 09, 2020 Time: 4:39 PM [facility] NURSING PROGon 06-09-2020 NURSING PROG HNO ID: [id number] Author: Mingo BeckhamRn) AGUILA Neil Service: Nursing Author Type: Registered Nurse Type: Nursing Progress Note Filed: 06/09/2020 6:13 PM Note Text: Nursing Progress Note Patient Name: Cameron Teresa Patient Location: [id number]/[facility] Daily Note: Pt awake at 0830- ate breakfast in room. pt assessed with C-SSRS, scoring no risk for suicide, therefore standard precautions remain. Pt med compliant. No s/s of adverse side effects. Pt continues to endorse boredom and needs frequent redirection for standing in his doorway-talking to nearby peers, and also loitering in hallway, and around nursing station. Pt is redirectable with these behaviors. Pt verbalized wanting a nicotine patch- LIP notified- ordered. 1600- Pt attended nursing group, participated in half of group. 1800-patch placed on shoulder. Education completed. Pt continues to verbalize anger towards stepmom and dad relating to the contact restrictions placed on his bio mom and grandma. This note was completed by: Mingo Neil RN [facility] NURSING PROG HNO ID: [id number] Author: Lauren Núñez RN Service: Nursing Author Type: Registered Nurse Type: Nursing Progress Note Filed: 06/09/2020 2:53 AM Note Text: Nursing Progress Note Patient Name: Cameron Teresa Patient Location: [id number]/[facility] Daily Note: pt did not attend the movie tonnena and was just hanging out in his room. he kept stating he was bored and wanted to socialize . he was saying at other facilities the patients did not have to stay in their rooms, so it was hard for him to be still. he was offered different ideas of stuff he could do, but he kept declining. he denied SI and low risk interventions remain in place after C-SSRS assessment. he received melatonin and was sleeping by 2327. AP/EP/SP and safety checks maintained. ITP reviewed. This note was completed by: Lauren Núñez RN [facility] PLAN OF CAREon 06-09-2020 PLAN OF CARE HNO ID: [id number] Author: Corrine Munoz Service: Psychiatry Author Type: Physician Type: Plan of Care Filed: 06/09/2020 1:00 PM Note Text: BEHAVIORAL HEALTH INPATIENT INTERDISCIPLINARY TREATMENT PLAN UPDATE DATE INITIATED: 06/09/2020 10:02 AM Patient's Goal of Treatment: Get on meds and be stable Active Hospital Problems MDD (major depressive disorder) PTSD (post-traumatic stress disorder) Polysubstance abuse (HCC) Criteria for Discharge: Elimination/reductio n of presenting behavior: SI Estimated length of stay: 1-2 days Interdisciplinary Treatment Plan Date Initiated: 06/06/20 Time Initiated: 2309 Patient Participation in Initial Treatment Plan: Yes Initial Treatment Plan Date: 06/07/20 Other Participants: N/A Strengths/Assets: Insight into illness;Receiving outpatient treatment Limitations: Lack of social support(States he puts lee up) Precautions indicated: Close Observation;Routine Precautions;Suicide Individualized problems: Risk of harm to self;Risk of harm to others Problem - Discharge Needs Date Initiated: 06/07/20 Time Initiated: 123 Discharge Needs: Patient/Family will participate in the development of the Discharge Aftercare Plan;Resolve acute symptoms through medication management;Assess for appropriate level of care;Link/relink to community supports;Encourage patient to utilize appropriate coping skills;Encourage patient to maintain sobriety or explore ambivalence re: sobriety;Patient has identified at least one support person to contact in the event of relapse Interventions - Nursing: Obtain baseline level of functioning on admission;Administer medications as indicated and monitor patient for effect;Provide education to the patient and/or family about the disease process and management as appropriate;Provide non-judgmental supportive, empathetic and comprehensive trauma informed care;Use therapeutic communication skills to develop patient trust and a nurse-patient relationship;Assess for signs of escalating emotions and help identify ways to appropriately express feelings;Assist with developing positive coping behaviors;Assess for escalating behavior and utilize de-escalation skills as needed;Encourage independence with daily functioning;Assist with activities of daily living, utilizing any necessary assistive devices;Monitor nutritional intake;Provide a quiet, restful environment to promote sleep/rest;Encourage patient participation in milieu activities Interventions - Social Work: Coordination with family;Coordination with outpatient providers;Develop aftercare plan Problem - Risk of Harm to Self Short Term Goals: Refrain from self injurious behavior Target Date Short Term Goals: 06/09/20 Progress Towards Short Term Goals: Progressing Longterm Goals: Identify positive alternatives to self-injurious behavior Target Date Longterm Goals: 06/11/20 Progress Towards Longterm Goals: Progressing Interventions - Nursing: Initiate safety measures to protect the patient from injury;Assist patient with developing a safety plan;Remain calm and firmly set limits for the patient's behaviors;Obtain baseline level of functioning on admission;Administer medications as indicated and monitor patient for effect;Provide education to the patient and/or family about the disease process and management as appropriate;Provide non-judgmental supportive, empathetic and comprehensive trauma informed care;Use therapeutic communication skills to develop patient trust and a nurse-patient relationship;Assess for signs of escalating emotions and help identify ways to appropriately express feelings;Assist with developing positive coping behaviors;Assess for escalating behavior and utilize de-escalation skills as needed;Encourage independence with daily functioning;Assist with activities of daily living, utilizing any necessary assistive devices;Monitor nutritional intake;Provide a quiet, restful environment to promote sleep/rest;Encourage patient participation in milieu activities Interventions - Social Work: Coordination with family;Coordination with outpatient providers Problem - Risk of Harm to Others Short Term Goals: Refrain from aggression towards others Target Date Short Term Goals: 06/09/20 Progress Towards Short Term Goals: Progressing Compliance Auditor Goals: Identify positive alternatives to aggession Target Date Longterm Goals: 06/11/20 Progress Towards Longterm Goals: Progressing Interventions - Nursing: Initiate safety measures to protect the staff and other patients;Assist patient with developing a safety plan;Remain calm and firmly set limits for the patient's behaviors;Obtain baseline level of functioning on admission;Administer medications as indicated and monitor patient for effect;Provide education to the patient and/or family about the disease process and management as appropriate;Provide non-judgmental supportive, empathetic and comprehensive trauma informed care;Use therapeutic communication skills to develop patient trust and a nurse-patient relationship;Assess for signs of escalating emotions and help identify ways to appropriately express feelings;Assist with developing positive coping behaviors;Assess for escalating behavior and utilize de-escalation skills as needed;Encourage independence with daily functioning;Assist with activities of daily living, utilizing any necessary assistive devices;Monitor nutritional intake;Provide a quiet, restful environment to promote sleep/rest;Encourage patient participation in milieu activities Interventions - Social Work: Coordination with family;Coordination with outpatient providers Staff in attendance and in agreement with this plan: Attending: Dr. Munoz Resident: Dr. Perez Physician Erp Engineer: Matthew Ellison Nurse: KEN Madsen, RN Credit Review Manager: Alvaro Power Pharmacy: [facility] Recreational Therapy: Loly Chand This plan was reviewed with patient/family. Attending Psychiatrist: Dr. Munoz DOCUMENTED BY: Mingo Neil, RN PATIENT NAME: Cameron Teresa DATE: June 09, 2020 TIME: 10:02 AM PAGER/CONTACT #: [facility] ARNULFOon 06-09-2020 PROGRESS HNO ID: [id number] Author: Corrine Munoz Service: Pediatric Psychiatry Author Type: Physician Type: Progress Notes Filed: 06/09/2020 2:16 PM Note Text: CHILD AND ADOLESCENT PSYCHIATRY PROGRESS NOTE PATIENT NAME: Cameron Teresa DATE of SERVICE: 06/09/2020 TIME of SERVICE: 9:29 AM ASSESSMENT AND PLAN Cameron is 14 year old admitted on 06/06/2020 to Inpatient Psychiatry. Please see formulation from HANDP with updates as below: Continue his treatment plan as prescribed. Silke strong insight in regards for substance abuse treatment. [facility]. Patient continues to show improvement with his medication and participation in group activities will likely anticipate discharge on 06/[address] [facility]. Active Hospital Problems Diagnosis Date Noted - MDD (major depressive disorder) 06/07/2020 Overview Note: Patient admitted for SI on 06/06. Evaluation and family meeting completed on 06/07. Reports chronic SI and PDW that have worsened since cessation of meth use 5-6 weeks ago. Failed trials of Prozac, Zoloft, Lexapro, Wellbutrin PLAN: - 06/08: start Effexor 37.5 mg daily - PTSD (post-traumatic stress disorder) 06/07/2020 Overview Note: Admitted for SI on 06/06. Evaluation and family meeting completed on 06/07. Reports history of neglect and witnessing trauma as a child. Reports significant symptoms consistent with PTSD, including flashbacks, lack of trust, difficulty sleeping, and hypervigilant. On evaluation, appears hypervigilant, turning around repeatedly to look behind him. Failed trials of Prozac, Zoloft, Lexapro, Wellbutrin PLAN: - 06/08: start Effexor 37.5 mg daily - Polysubstance abuse (HCC) 06/07/2020 Overview Note: Currently in residential treatment at [facility]. Main drug of abuse currently = meth Last use 5-6 weeks ago PLAN: - determine appropriate outpatient planning (CD vs mood vs dual diagnosis) - consider use of medication to assist with persistent meth cravings - family currently reluctant -Accepted to [facility], likely anticipate discharge on 06/10 SUBJECTIVE Per nursing notes: Reviewed nursing notes and updated plan of care during treatment team meeting. Cameron currently working on safety plan? Yes Pt awake at 0830- ate breakfast in room. pt assessed with C-SSRS, scoring no risk for suicide, therefore standard precautions remain. Pt med compliant. No s/s of adverse side effects. Pt continues to endorse boredom and needs frequent redirection for standing in his doorway-talking to nearby peers, and also loitering in hallway, and around nursing station. Pt is redirectable with these behaviors. New problems (including any need for seclusion/restraint) on the unit since the last encounter: No. Any PRN medications given in the last 24 hours:No. Report from the patient: Patient seen this morning in his room for follow-up. When prompted denies any concerns. Stated his mood is okay. Reports sleep and appetite are well. Discusses his history of substance use involving several drugs predominantly methamphetamine that began 3 years ago. States that he has been to [facility] on several occasions. Reports that his continued drug use will not be a positive outcome in his life. States that he is seen his mother who is currently 3 years sober, struggle with significant drug abuse. He reports that attending support groups have been the most helpful in maintaining sobriety. Any new medication reactions since the last encounter: No. Additional information: Collateral: No, call number listed in chart. Left voicemail. Medical History Medical history reviewed and included as relevant to this admission above. Medications Current Facility-Administere d Medications Medication Dose Route Frequency - melatonin 10 mg tab(s) 10 mg ORAL AT BEDTIME - venlafaxine ER 37.5 mg cap(s) (EFFEXOR XR) 37.5 mg ORAL DAILY WITH BREAKFAST ALLERGIES No Known Allergies OBJECTIVE 06/06/20 2326 06/07/20 0920 06/08/20 0918 06/09/20 0846 BP: 136/78 134/65 108/63 142/71 Pulse: 60 61 61 67 Resp: 18 Temp: 36.6 ?C (97.9 ?F) 36.4 ?C (97.5 ?F) 36.4 ?C (97.5 ?F) 36.2 ?C (97.2 ?F) TempSrc: Oral Oral Oral Oral SpO2: 96% 99% 97% 98% Weight: 83.6 kg (184 lb 4.9 oz) Height: 195.6 cm (6' 5 ) Last 3 Encounter Wt Readings: Date: Wt: 06/06/2020 83.6 kg (184 lb 4.9 oz) (92 %, Z= 1.42)* 06/06/2020 86.8 kg (191 lb 4.8 oz) (94 %, Z= 1.59)* 02/20/2020 82.2 kg (181 lb 5 oz) (92 %, Z= 1.41)* Last 3 Encounter Ht Readings: Date: Ht: 06/06/2020 195.6 cm (6' 5 ) (>99 %, Z= 2.95)* 02/20/2020 196.9 cm (6' 5.5 ) (>99 %, Z= 3.21)* 10/10/2018 193 cm (6' 4 ) (>99 %, Z= 3.12)* Body mass index is 21.86 kg/m?. PHYSICAL EXAM General / Constitutional: 14 year old who is in no acute distress, well appearing, alert, well-hydrated, well nourished. Neurological: Grossly normal strength and no abnormal movements. CN II-XII: grossly intact. No tics or tremors noted. MENTAL STATUS EXAMINATION: Appearance: casually dressed, appears stated age, wearing hoodie and jeans Behavior: cooperative, actively engaged with normal eye contact and appropriate body language. Social Relatedness: Appropriate for age and developmental level Speech: Clear and easily understood. Appropriate use of language with normal volume Mood: Good Affect: Full and appropriate to topic with social smiles Thought Process: Logical and coherent thought process with appropriate associations Thought Content: The patient displays thought content appropriate to the interview and demonstrates no delusional thinking. Denies hallucinations and does not appear to be internally stimulated. Focused interview content on history of substance abuse. Suicidal Ideation: The patient denies suicidal ideation, intent or plan at the time of this interview Homicidal Ideation: Patient denies any homicidal ideation, plan or intent at the time of this interview. Anxiety: The patient denies and does not appear anxious Orientation: Person, Place, Time and Situation Memory: no noted deficits Attention: Able to engage in interview without getting distracted Fund of Knowledge: Appropriate for age and developmental level Judgment: Demonstrates age appropriate judgment Insight: aware of problem, admits to problem, realizes severity of problem, demonstrates fair insight and admits to addiction OBJECTIVE DATA: The laboratory results have been reviewed. SIGNATURE: Linnea August, DATE of SERVICE: June 09, 2020 TIME of SERVICE: 9:29 AM [facility] [place] STAFF: TEACHING PHYSICIAN NOTE OF PERSONAL INVOLVEMENT IN CARE I personally participated in the unger components of and reviewed the above history and physical obtained and documented by the trainee. I have interviewed the patient and discussed the case and management of the patient's care with the team. The needs of the patient were reviewed with the patient, the patient's family, OT, SW and nursing in a comprehensive treatment team meeting. The following comments revise or confirm relevant unger components of the note. IMPRESSION: Cameron is 14 year old admitted on 06/06/2020 to Inpatient Psychiatry. Cameron denies issues with sleep, appetite, or physical symptoms. Patient also denies current active SI/HI or urges to harm self or others at the time of this interview. We discussed plan to discharge back to [facility] and patient was eager for this plan. There are no acute concerns for safety while admitted; therefore, Standard precautions will be implemented for this patient. Please refer to the resident/fellow note for complete assessment and plan. I would add the following: - reviewed and agree with above. SIGNATURE: Corrine Munoz MD PATIENT NAME: Cameron Teresa DATE: June 09, 2020 TIME: 2:15 PM Authenticated by responsible provider. __ Normal [facility] SOCIAL WORKon 06-09-2020 SOCIAL WORK HNO ID: [id number] Author: Alvaro Mims (Sw) Service: Social Work Author Type: Credit Review Manager Type: Social Work Filed: 06/09/2020 2:57 PM Note Text: CHILD AND ADOLESCENT PSYCHIATRY SOCIAL WORK ONGOING ASSESSMENT PATIENT NAME: Cameron Teresa ADDRESS: [address] [place] [address] COUNTY: [place] ADMIT DATE: 06/06/2020 DATE of SERVICE: 06/09/2020 Cameron was discussed in treatment team. Cameron is not ready for discharge at the time of this note. Collateral information collected: Spoke with Viki Cobb at [facility] who reports the patient has been at their agency 3x, they were talking with the patient on Tuesday about his desire to step down to the recovery housing and this led to the disagreement as staff at [facility] do not feel he is ready to step down yet. When ready to step down, patient would have more privileges, less staff monitoring in order to allow the patient to transition home eventually. CT staff do not think any residential placement afterwards would be of much use as the patients primary need is substance use and sobriety and could then see an out patient provider for mental health services. [facility] is willing to take the patient back into their program when he is ready for discharge from the hospital. Phone call to step mother/father who reports she would like patient to return to [facility]' with the plan for referrals for mental health residential placements once he is completed with [facility]. Step mother would like referrals to be sent out to [facility], [facility] and [facility]. Discussed the financial commitment that the family would be required to assist with,step mother reports [facility] is helping to fund [facility] in addition to the insurance coverage. [facility] is not accepting any new referrals for admissions at this time. [facility] is not accepting patients over the age of 12 at this time. Faxed to [facility] [place], [place] and called [facility] Phone call to [facility], message left for Viki to update her about discharge for Tuesday and to coordinate return to placement of patient. Phone call to Marielos Durbin at [facility], message left requesting a return call. Spoke with [facility] who is in agreement with patient returning on Tuesday, will contact family to discuss discharge and transport plan. Spoke with step mother who reports the plan is for patient to return to [facility], via ambulance is the preferred method by the family. Also updated the referrals sent for residential placement. Mother requested the doctor call her for an update today, message shared with Dr Booker. Ambulance set for 12:30pm continuous pickling line pickler helper on Tuesday to transport patient to [facility], family and [place] are aware. Follow-up: ? Inpatient Substance Abuse treatment Name: Regina, therapist - Viki, structural steel erection supervisor ext [phone] Agency: [facility] Location: [id number] [place], [place] [address] [address] Appointment: returning back. ? Current psychiatrist Name:?Dr. Benjamin Agency:?[facility] Location:?[place] [facility] Phone:?[phone] Next appointment: to be made after [facility] placement ? Current therapist (has not seen for several months due to IHBT AND [facility]) Name:?Millicent Sahni Agency:?[facility] Location:?[place] [facility] Phone:?[phone] Next appointment confirmed???No ? IHBT from November to April Name:?Germain Agency:?[facility] Location:?[place] [facility] Phone:?[phone] Next appointment: to made after [facility] placement [facility] Name: Marielos Durbin Agency: [facility] ? Other residentials to consider after [facility] 1. [facility] [place] [address] [place] [address], phone: [phone], [email or web address] 2. [facility] located at [address] [place] [address], 3. [facility] Fu located at [address] [place] [address], 4. [facility], location: [place] 5. [facility] located at [address] [place] [address], phone: [phone], fax: [phone] 6. [facility] located at [address] [address], phone: SIGNATURE: ORESTES Ornelas DATE of SERVICE: 06/09/2020 TIME of SERVICE: 8:23 AM [facility] ALLIED HEALTHon 06-08-2020 ALLIED HEALTH HNO ID: [id number] Author: Fatuma Madden (Ctrs) Service: Recreational Therapy Author Type: Therapist Type: Allied Health Filed: 06/08/2020 12:36 PM Note Text: RECREATIONAL THERAPY NOTE CHILD AND ADOLESCENT PSYCHIATRY Name: Cameron Teresa Topic of Note: Progress Note DATE: 06/08/2020 Time: 1100 Group Topic: Creative Expression Attendance: full attendance- 60 minutes Brief descriptor of performance: Pt practiced utilizing effective coping skills through engaging in therapeutic activity (spirit animal art task) for duration of session. Was social and appropriate with peers and staff. Affect increasingly animated while engaged. Through participation, was able to ID characteristics of self as idepenedent, aware, comforting to others . Signature: DORI Vera Date: June 08, 2020 Time: 12:35 PM [facility] NURSING PROGon 06-08-2020 NURSING PROG HNO ID: [id number] Author: Mingo BeckhamRn) AGUILA Neil Service: Nursing Author Type: Registered Nurse Type: Nursing Progress Note Filed: 06/08/2020 6:02 PM Note Text: Nursing Progress Note Patient Name: Cameron Teresa [id number] Daily Note: Pt awake at 0800, cooperative with staff. Pt med compliant with 1st dose of effexor. Pt denies SI, assessed with C-SSRS, scoring low risk for suicide. Pt planning on attending all groups today. 1400- Pt called bio mom, spoke for 10 min. 1800- Pt asking why he can't call bio Mom again. Reviewed calling limitations (1 call /day). Pt is angry at bio dad and step mom because he feels these limitations are from stepmom. This note was completed by: Mingo Neil RN [facility] NURSING PROG HNO ID: [id number] Author: Zaria BeckhamRn) AGUILA Nieto Service: Nursing Author Type: Registered Nurse Type: Nursing Progress Note Filed: 06/08/2020 12:19 AM Note Text: Pt is pleasant and in control. Restless yet very pleasant. Pt states that he cant stand being in his room. Movie suggested to pt. He states he does not watch movies. Pt inquires as to starting his Effexor. Informed that he will get his first dose in the am. Pt denies SI. Will continue to monitor q15min and review his [place] plan. [facility] PLAN OF CAREon 06-08-2020 PLAN OF CARE HNO ID: [id number] Author: Caroline Durand Service: Psychiatry Author Type: Physician Type: Plan of Care Filed: 06/08/2020 6:13 PM Note Text: BEHAVIORAL HEALTH INPATIENT INTERDISCIPLINARY TREATMENT PLAN UPDATE DATE INITIATED: 06/08/2020 5:58 PM Patient's Goal of Treatment: Get on meds and be stable Active Hospital Problems MDD (major depressive disorder) PTSD (post-traumatic stress disorder) Polysubstance abuse (HCC) Criteria for Discharge: Elimination/reductio n of presenting behavior: SI Estimated length of stay: 1-2 days Interdisciplinary Treatment Plan Date Initiated: 06/06/20 Time Initiated: 2310 Patient Participation in Initial Treatment Plan: Yes Initial Treatment Plan Date: 06/07/20 Other Participants: N/A Strengths/Assets: Insight into illness;Receiving outpatient treatment Limitations: Lack of social support(States he puts lee up) Precautions indicated: Close Observation;Routine Precautions;Suicide Individualized problems: Risk of harm to self;Risk of harm to others Problem - Discharge Needs Date Initiated: 06/07/20 Time Initiated: 0124 Discharge Needs: Patient/Family will participate in the development of the Discharge Aftercare Plan;Resolve acute symptoms through medication management;Assess for appropriate level of care;Link/relink to community supports;Encourage patient to utilize appropriate coping skills;Encourage patient to maintain sobriety or explore ambivalence re: sobriety;Patient has identified at least one support person to contact in the event of relapse Interventions - Nursing: Provide a quiet, restful environment to promote sleep/rest Interventions - Social Work: Assess for appropriate level of care and initiate referral;Collateral information;Coordina tion with family;Coordination with outpatient providers;Develop aftercare plan;Family meeting Problem - Risk of Harm to Self Interventions - Nursing: Provide a quiet, restful environment to promote sleep/rest Interventions - Social Work: Assess for appropriate level of care and initiate referral;Coordinatio n with family;Coordination with outpatient providers Problem - Risk of Harm to Others Interventions - Nursing: Provide a quiet, restful environment to promote sleep/rest Interventions - Social Work: Assess for appropriate level of care and initiate referral;Coordinatio n with family;Coordination with outpatient providers Staff in attendance and in agreement with this plan: Attending: Dr Durand Nurse: KEN Madsen, RN Credit Review Manager: ORESTES Power This plan was reviewed with patient/family. Attending Psychiatrist: Dr. Durand DOCUMENTED BY: Mingo Neil, RN PATIENT NAME: Cameron Teresa DATE: June 08, 2020 TIME: 5:58 PM PAGER/CONTACT #: [facility] PROGRESSon 06-08-2020 PROGRESS HNO ID: [id number] Author: Caroline Durand Service: Psychiatry Author Type: Physician Type: Progress Notes Filed: 06/08/2020 6:18 PM Note Text: CHILD AND ADOLESCENT PSYCHIATRY PROGRESS NOTE PATIENT NAME: Cameron Teresa DATE of SERVICE: 06/08/2020 TIME of SERVICE: 6:13 PM ASSESSMENT AND PLAN Cameron is 14 year old admitted on 06/06/2020 to Inpatient Psychiatry. Please see formulation from [facility] with updates as below: Active Hospital Problems Diagnosis Date Noted - MDD (major depressive disorder) 06/07/2020 Overview Note: Patient admitted for SI on 06/06. Evaluation and family meeting completed on 06/07. Reports chronic SI and PDW that have worsened since cessation of meth use 5-6 weeks ago. Failed trials of Prozac, Zoloft, Lexapro, Wellbutrin PLAN: - 06/08: start Effexor 37.5 mg daily - PTSD (post-traumatic stress disorder) 06/07/2020 Overview Note: Admitted for SI on 06/06. Evaluation and family meeting completed on 06/07. Reports history of neglect and witnessing trauma as a child. Reports significant symptoms consistent with PTSD, including flashbacks, lack of trust, difficulty sleeping, and hypervigilant. On evaluation, appears hypervigilant, turning around repeatedly to look behind him. Failed trials of Prozac, Zoloft, Lexapro, Wellbutrin PLAN: - 06/08: start Effexor 37.5 mg daily - Polysubstance abuse (HCC) 06/07/2020 Overview Note: Currently in residential treatment at [facility]. Main drug of abuse currently = meth Last use 5-6 weeks ago PLAN: - determine appropriate outpatient planning (CD vs mood vs dual diagnosis) - consider use of medication to assist with persistent meth cravings - family currently reluctant SUBJECTIVE Per nursing notes: Reviewed nursing notes and updated plan of care during treatment team meeting. Cameron currently working on safety plan? Yes. HE is also working on the steps for recovery awake at 0800, cooperative with staff. Pt med compliant with 1st dose of effexor. Pt denies SI, assessed with C-SSRS, scoring low risk for suicide. Pt planning on attending all groups today. 1400- Pt called bio mom, spoke for 10 min. 1800- Pt asking why he can't call bio Mom again. Reviewed calling limitations (1 call /day). Pt is angry at bio dad and step mom because he feels these limitations are from stepmom. New problems (including any need for seclusion/restraint) on the unit since the last encounter: No. Any PRN medications given in the last 24 hours:No. Report from the patient: Pt has been participating in group and milieu, he has been asking for help when needed Sleep ok Appetite ok Mood kind of sad Hopeless well I don't know if I will be ever able to stop Meth, nothing else makes me happy every day I used to wake up and think - how am I getting high, where I am going to get it from SI denies HI denies Any new medication reactions since the last encounter: No. Additional information: Collateral: Yes, Linnea had a productive conversation with family Spoke with chan. Discussed the options. They would like him to go back to [facility] and for this worker to refer him to other treatment centers. Discussed options with chan and she is going to speak to dad tish. She stated that she does not feel safe if the patient were to come home The patient has court in June for charges that the parents filed against him. Dicussed asking for placement planning and other financial assistance from the court. Also discussed a overwhelmed parent case with CFS. Offered [facility] but she stated that they could not afford this option. ? Medical History Medical history reviewed and included as relevant to this admission above. Medications Current Facility-Administere d Medications Medication Dose Route Frequency - melatonin 10 mg tab(s) 10 mg ORAL AT BEDTIME - venlafaxine ER 37.5 mg cap(s) (EFFEXOR XR) 37.5 mg ORAL DAILY WITH BREAKFAST ALLERGIES No Known Allergies OBJECTIVE 06/06/20 2326 06/07/20 0920 06/08/20 0918 BP: 136/78 134/65 108/63 Pulse: 60 61 61 Resp: 18 18 16 Temp: 36.6 ?C (97.9 ?F) 36.4 ?C (97.5 ?F) 36.4 ?C (97.5 ?F) TempSrc: Oral Oral Oral SpO2: 96% 99% 97% Weight: 83.6 kg (184 lb 4.9 oz) Height: 195.6 cm (6' 5 ) Last 3 Encounter Wt Readings: Date: Wt: 06/06/2020 83.6 kg (184 lb 4.9 oz) (92 %, Z= 1.42)* 06/06/2020 86.8 kg (191 lb 4.8 oz) (94 %, Z= 1.59)* 02/20/2020 82.2 kg (181 lb 5 oz) (92 %, Z= 1.41)* Last 3 Encounter Ht Readings: Date: Ht: 06/06/2020 195.6 cm (6' 5 ) (>99 %, Z= 2.95)* 02/20/2020 196.9 cm (6' 5.5 ) (>99 %, Z= 3.21)* 10/10/2018 193 cm (6' 4 ) (>99 %, Z= 3.12)* Body mass index is 21.86 kg/m?. PHYSICAL EXAM General / Constitutional: 14 year old who is in no acute distress, well appearing, alert, well-hydrated, well nourished. Neurological: Grossly normal strength and no abnormal movements. CN II-XII: grossly intact. No tics or tremors noted. MENTAL STATUS EXAMINATION: Appearance: Well dressed, well groomed and casually dressed, appears stated age, wearing some jeans and a sweater Behavior: cooperative, actively engaged with normal eye contact and appropriate body language. Social Relatedness: Appropriate for age and developmental level Speech: Clear and easily understood. Appropriate use of language with normal volume Mood: ok Affect: Full and appropriate to topic with social smiles Thought Process: Logical and coherent thought process with appropriate associations Thought Content: The patient displays thought content appropriate to the interview and demonstrates no delusional thinking. Denies hallucinations and does not appear to be internally stimulated. Focused interview content on why the therapy is not working and why he tends to avoid talking to his therapist and [facility] . Suicidal Ideation: The patient denies suicidal ideation, intent or plan at the time of this interview Homicidal Ideation: Patient denies any homicidal ideation, plan or intent at the time of this interview. Anxiety: The patient is more anxious than developmentally or situationally expected Orientation: Person, Place, Time and Situation Memory: no noted deficits Attention: Able to engage in interview without getting distracted Fund of Knowledge: Appropriate for age and developmental level Judgment: Demonstrates slight impairment of judgment Insight: extent of denial 2 OBJECTIVE DATA: The laboratory results have been reviewed. SIGNATURE: Caroline Durand MD DATE of SERVICE: June 08, 2020 TIME of SERVICE: 6:13 PM [facility] SOCIAL WORKon 06-08-2020 SOCIAL WORK HNO ID: [id number] Author: Linnea Todd (Sw) Service: Social Work Author Type: Credit Review Manager Type: Social Work Filed: 06/08/2020 3:10 PM Note Text: CHILD AND ADOLESCENT PSYCHIATRY SOCIAL WORK ONGOING ASSESSMENT PATIENT NAME: Cameron Teresa ADDRESS: [address] [place] [id number] COUNTY: [place] ADMIT DATE: 06/06/2020 DATE of SERVICE: 06/08/2020 Cameron was discussed in treatment team. Cameron is not ready for discharge at the time of this note. Treatment team: it is recommended that the patient return to [facility] and then the family look into alterative residential treatment centers once [facility] is complete. The patient's insurance approved [facility], per the last child welfare social worker note. Spoke with chan. Discussed the options. They would like him to go back to [facility] and for this worker to refer him to other treatment centers. Discussed options with chan and she is going to speak to milton winston. She stated that she does not feel safe if the patient were to come home The patient has court in June for charges that the parents filed against him. Dicussed asking for placement planning and other financial assistance from the court. Also discussed a overwhelmed parent case with Xeebel. Offered [facility] but she stated that they could not afford this option. stockroom worker to follow up with chan and milton regarding any referrals to residential treatment centers. stockroom worker emailed Mary with [facility] asking if they would accept the patient back into their program at d/c. Follow up: Inpatient Substance Abuse treatment Name: nisha Tapia, structural steel erection supervisor Agency: [facility] Location: [address] [place] [address] Appointment: returning back. Current psychiatrist Name: Dr. Benjamin Agency: [facility] Location: [place] Next appointment: to be made after [facility] placement ? Current therapist (has not seen for several months due to IHBT AND [facility]) Name: Millicent Sahni Agency: [facility] Location: [place] Next appointment confirmed? No ? IHBT from November to April Name: Germ[facility] Agency: [facility] Location: [place] Next appointment: to made after [facility] placement ? Other residentials to consider after [facility] 1. [facility] [place] [address] [place] [address], phone: [phone], [email or web address] 2. [facility] located at [address] [place] [address], 3. [facility] [place] [address] [place] [address], 4. [facility], location: [place] 5. [facility] located at [address] [place] [address], phone: [phone], fax: [phone] 6. [facility] located at [address] [address], phone: SIGNATURE: SUSAN Foley DATE of SERVICE: 06/08/2020 TIME of SERVICE: 12:07 PM [facility] ALLIED [facility] 06-07-2020 ALLIED HEALTH HNO ID: [id number] Author: Fatuma Madden (Ctrs) Service: Recreational Therapy Author Type: Therapist Type: Allied Health Filed: 06/07/2020 1:52 PM Note Text: RECREATIONAL THERAPY NOTE CHILD AND ADOLESCENT PSYCHIATRY Name: Cameron Teresa Topic of Note: Progress Note DATE: 06/07/2020 Time: 1000 Group Topic: Creative Expression Attendance: full attendance- 60 minutes Brief descriptor of performance: Pt practiced utilizing effective coping skills through engaging in therapeutic activity (anger as secondary emotion art task) for duration of session. Was social and appropriate with peers and staff throughout. Through participation, was able to ID sadness as a secondary emotion experienced to anger. Signature: DORI Vera Date: June 07, 2020 Time: 1:51 PM [facility] [facility] [place] [facility] HNO ID: [id number] Author: Fatuma Madden (Ctrs) Service: Recreational Therapy Author Type: Therapist Type: Allied Health Filed: 06/07/2020 1:48 PM Note Text: PROBLEM BEHAVIORS: What type of behaviors are problems for you: Drug or Alcohol Abuse, Feeling Suicidal and Feeling Unsafe What types of things (triggers) make you feel unsafe or upset: Arguments, Being Isolated, Being Stared At, Being Teased or Picked On, Feeling Lonely, Feeling Pressured, Not Being Listened to, Not Having Control and People Yelling Please describe your warning signs, for example what other people may notice when you begin to lose control: Crying, Irritable and Isolating/Avoiding People What are some things that help to calm you down or keep you safe: Being Around Other People and reading the AA big book What are some things that do NOT help you calm down or stay safe: Being Alone, Being Disrespected, Being Ignored, Loud Tone of Voice, Not Being Listened To and Peers Teasing STRENGTHS: What are your strengths when feeling out of control: respectful and kind OTHER: Are you able to communicate to staff when you are having a hard time: Yes Pt was provided with and educated on Safety Plan. Treatment team to follow up and work on completion throughout admission. [facility] [place] [facility] HNO ID: [id number] Author: Fatuma Madden (Ctrs) Service: Recreational Therapy Author Type: Therapist Type: Allied Health Filed: 06/07/2020 1:15 PM Note Text: RECREATIONAL THERAPY ASSESSMENT CHILD AND ADOLESCENT PSYCHIATRY Name: Cameron Teresa Date of Service: 06/07/2020 Time of Service: 930 REASON FOR ADMISSION: S/I d/t increased depression and substance use. ACTIVITIES OF DAILY LIVING (Difficulty in the following ADL areas): Appetite Concentration Family (who): strain and conflict with parents [employer] Work [employer]ing STRESS MANAGEMENT SKILLS: Effective Coping Strategies Used: calming down by deep breathing Ineffective Coping Strategies Used: AoD use INTERESTS: Current: unable to ID any currently. Pt was able to ID history of enjoying friends, sports- soccer, music, spending time with family, working at [employer] PATIENT'S GOALS FOR RECREATIONAL THERAPY PROGRAM: being stable on my new meds Recreational Therapy Recommendations: Pt will practice utilizing effective coping skills through engaging in therapeutic activity. Pt will practice expressing thoughts/feelings/em otions appropriately through engaging in therapeutic activity. GENERAL OBSERVATIONS: Clean and groomed Communicates easily Cooperative Good attitude Oriented Pleasant Signature: DORI Vera Date: June 07, 2020 Time: 12:25 PM [facility] [place] CBC and Differentialon 06-07 Abs Baso <0.03 Normal <0.11 [facility] Comment on above: Performed By: #### C MP, CBCDIF, TSH, LIPB ####[place] [address]#### HBA1C ####[place] [address] [phone] Abs Emery 0.38 k/uL Normal <0.87 [facility] Comment on above: Performed By: #### C MP, CBCDIF, TSH, LIPB ####[place] [address]#### HBA1C ####[place] [address] [address] [phone] Abs Neut 2.70 k/uL Normal 1.45-7.50 [facility] Comment on above: Performed By: #### C MP, CBCDIF, TSH, LIPB ####[place] [address]#### HBA1C ####[place] [address] [address] [place] [phone] Absolute nRBC <0.01 Normal <0.01 [facility] Comment on above: Performed By: #### C MP, CBCDIF, TSH, LIPB ####[place] [address]#### HBA1C ####[place] [address] [address] [place] [phone] Basophils/100 WBC (Bld) 0.2 % Normal [facility] Comment on above: Performed By: #### C MP, CBCDIF, TSH, LIPB ####[place] [address]#### HBA1C ####[place] [address] [address] [place] [phone] DTYPE Auto Diff Normal [facility] Comment on above: Performed By: #### C MP, CBCDIF, TSH, LIPB ####[place] [address]#### HBA1C ####[place] [address] [address] [place] [phone] Eosinophils (Bld) [#/Vol] 0.05 10*3/uL Normal <0.46 [facility] Comment on above: Performed By: #### C MP, CBCDIF, TSH, LIPB ####[place] [address]#### HBA1C ####[place] [address] [address] [place] [phone] Eosinophils/100 WBC (Bld) 1.1 % Normal [facility] Comment on above: Performed By: #### C MP, CBCDIF, TSH, LIPB ####[place] [address]#### HBA1C ####[place] [address] [address] [place] [phone] Erythrocyte distribution width (RBC) [Ratio] 12.6 % Normal 11.5-15.0 [facility] Comment on above: Performed By: #### C MP, CBCDIF, TSH, LIPB ####[address]#### HBA1C ####[place] [address] [address] [place] [phone] Hematocrit (Bld) [Volume fraction] 47.4 % Normal 39.0-51.0 [facility] Comment on above: Performed By: #### C MP, CBCDIF, TSH, LIPB ####[address]#### HBA1C ####[place] [address] [address] [place] [phone] Hemoglobin (Bld) [Mass/Vol] 15.9 g/dL Normal 13.0-17.0 [facility] Comment on above: Performed By: #### C MP, CBCDIF, TSH, LIPB ####[place] [phone]#### HBA1C ####[place] [address] [address] [place] [phone] Lymphocytes (Bld) [#/Vol] 1.35 10*3/uL Normal 1.00-4.00 [facility] Comment on above: Performed By: #### C MP, CBCDIF, TSH, LIPB ####[place] [address]#### HBA1C ####[place] [phone] Lymphocytes/100 WBC (Bld) 30.0 % Normal [facility] Comment on above: Performed By: #### C MP, CBCDIF, TSH, LIPB ####[address]#### HBA1C ####[place] [address] [address] [place] [phone] MCH (RBC) [Entitic mass] 29.0 pG Normal 26.0-34.0 [facility] Comment on above: Performed By: #### C MP, CBCDIF, TSH, LIPB ####[place] [address]#### HBA1C ####[place] [address] [address] [place] [phone] MCHC (RBC) [Mass/Vol] 33.5 g/dL Normal 30.5-36.0 [facility] Comment on above: Performed By: #### C MP, CBCDIF, TSH, LIPB ####[place] [phone]#### HBA1C ####[place] [address] [address] [place] [phone] MCV (RBC) [Entitic vol] 86.3 fL Normal 80.0-100.0 [facility] Comment on above: Performed By: #### C MP, CBCDIF, TSH, LIPB ####[place] [address]#### HBA1C ####[place] [address] [phone] Monocytes/100 WBC (Bld) 8.4 % Normal [facility] Comment on above: Performed By: #### C MP, CBCDIF, TSH, LIPB ####[place] [phone]#### HBA1C ####[place] [address] [address] [place] [phone] Neutrophils/100 WBC (Bld) 60.3 % Normal [facility] Comment on above: Performed By: #### C MP, CBCDIF, TSH, LIPB ####[place] [phone]#### HBA1C ####[place] [address] [address] [place] [phone] NRBCs 0.0 /100 WBC Normal 0 [facility] Comment on above: Performed By: #### C MP, CBCDIF, TSH, LIPB ####[place] [phone]#### HBA1C ####[place] [address] [address] [place] [phone] Platelet mean volume (Bld) [Entitic vol] 11.2 fL Normal 9.0-12.7 [facility] Comment on above: Performed By: #### C MP, CBCDIF, TSH, LIPB ####[place] [phone]#### HBA1C ####[place] [address] [address] [place] [phone] Platelets (Bld) [#/Vol] 165 10*3/uL Normal 150-400 [facility] Comment on above: Performed By: #### C MP, CBCDIF, TSH, LIPB ####[place] [phone]#### HBA1C ####[place] [address] [address] [place] [phone] RBC (Bld) [#/Vol] 5.49 10*6/uL Normal 4.20-6.00 [facility] Comment on above: Performed By: #### C MP, CBCDIF, TSH, LIPB ####[place] [phone]#### HBA1C ####[place] [phone] WBC (Bld) [#/Vol] 4.50 10*3/uL Normal 3.70-11.00 [facility] Comment on above: Performed By: #### C MP, CBCDIF, TSH, LIPB ####[place] [phone]#### HBA1C ####[place] [address] [address] [place] [phone] Comp Metabolic Panelon 06-07 Albumin [Mass/Vol] 4.3 g/dL Normal 3.5-5.0 [facility] Comment on above: Performed By: #### C MP, CBCDIF, TSH, LIPB ####[place] [phone]#### HBA1C ####[address] [phone] ALP [Catalytic activity/Vol] 146 U/L Normal 82-331 [facility] Comment on above: Result Comment: Refe rence ranges were not locally established for this patient's age group. The normal values are based on the following source: Loida DODSON, Yusuf AH, et al. CLSI based transference of the CALIPER database of pediatric reference intervals from Gomez to Pema, Ortho, Jeison, and Siemens Clinical Chemistry Assays: Direct validation using reference samples from the [facility] cohort. Clin Biochem. Performed By: #### C MP, CBCDIF, TSH, LIPB ####[place] [address]#### HBA1C ####[address] [place] [phone] ALT [Catalytic activity/Vol] 12 U/L Normal 5-50 [facility] Comment on above: Performed By: #### C MP, CBCDIF, TSH, LIPB ####[place] [address]#### HBA1C ####[place] [address] [address] [place] [phone] Anion gap [Moles/Vol] 9 mmol/L Normal 9-18 [facility] Comment on above: Performed By: #### C MP, CBCDIF, TSH, LIPB ####[address]#### HBA1C ####[place] [phone] AST [Catalytic activity/Vol] 15 U/L Normal 7-40 [facility] Comment on above: Performed By: #### C MP, CBCDIF, TSH, LIPB ####[place] [address]#### HBA1C ####[address] [place] [phone] Bilirubin [Mass/Vol] 0.4 mg/dL Normal 0.2-1.3 [facility] Comment on above: Result Comment: (NOT E) Reference ranges for this patient's age group have not been established. These reference ranges reflect verified or established ranges for the adult population. Interpret these ranges with caution using the clinical context and additional reference resources. Performed By: #### C MP, CBCDIF, TSH, LIPB ####[place] [phone]#### HBA1C ####[facility] AveCRand[address] [place] [phone] Calcium [Mass/Vol] 9.8 mg/dL Normal 8.5-10.5 [facility] Comment on above: Performed By: #### C MP, CBCDIF, TSH, LIPB ####[place] [address]#### HBA1C ####[place] [address] [address] [place] [phone] Chloride [Moles/Vol] 106 mmol/L Normal 98-110 [facility] Comment on above: Performed By: #### C MP, CBCDIF, TSH, LIPB ####[address]#### HBA1C ####[facility] [place] [phone] CO2 [Moles/Vol] 25 mmol/L Normal 23-32 [facility] Comment on above: Performed By: #### C MP, CBCDIF, TSH, LIPB ####[place] [address]#### HBA1C ####[facility]CRandall [place] [phone] Creatinine [Mass/Vol] 1.03 mg/dL Normal 0.40-1.30 [facility] Comment on above: Performed By: #### C MP, CBCDIF, TSH, LIPB ####[place] [phone]#### HBA1C ####[place] [phone] Glucose [Mass/Vol] 102 mg/dL High 65-100 [facility] Comment on above: Performed By: #### C MP, CBCDIF, TSH, LIPB ####[place] [phone]#### HBA1C ####[place] [phone] Potassium [Moles/Vol] 4.1 mmol/L Normal 3.5-5.0 [facility] Comment on above: Performed By: #### C MP, CBCDIF, TSH, LIPB ####[place] [phone]#### HBA1C ####[place] [phone] Protein [Mass/Vol] 7.0 g/dL Normal 6.0-8.4 [facility] Comment on above: Performed By: #### C MP, CBCDIF, TSH, LIPB ####[place] [id number]#### HBA1C ####[place] [phone] Sodium [Moles/Vol] 140 mmol/L Normal 135-146 [facility] Comment on above: Performed By: #### C MP, CBCDIF, TSH, LIPB ####[place] [phone]#### HBA1C ####[place] [phone] Urea nitrogen [Mass/Vol] 15 mg/dL Normal 5-20 [facility] Comment on above: Performed By: #### C MP, CBCDIF, TSH, LIPB ####[place] [phone]#### HBA1C ####[facility] [address] [place], [place] [phone] ED NOTEon 06-07-2020 ED NOTE HNO ID: [id number] Author: Zara (Rn) AGUILA Enciso Service: ? Author Type: Registered Nurse Type: ED Notes Filed: 06/06/2020 10:21 PM Note Text: Report given to transport team [facility] HISTORY PHYSICALon 0 HISTORY PHYSICAL HNO ID: [id number] Author: Caroline Durand Service: Psychiatry Author Type: Physician Type: HANDP Filed: 06/07/2020 6:27 PM Note Text: CHILD AND ADOLESCENT PSYCHIATRY HISTORY AND PHYSICAL PATIENT NAME: Cameron Teresa DATE of SERVICE: 06/07/2020 TIME of SERVICE: 11:22 AM ASSESSMENT Cameron Teresa is 14 year old in the 11th grade who has a [address] with a history of depression, PTSD, substance abuse and anxiety followed by Dr. Benjamin (psychiatrist), Millicent Sahni (therapist), Germain ([facility]), and currently in residential substance use treatment at [facility] with several previous psychiatric admissions ([facility] in January 2020 and in [facility] in 2018, and in June 2019) admitted to Inpatient Psychiatry for SI with multiple plans (running into traffic, ODing on OTC medications, or jumping off ledge at [facility]). Family history is significant for mother with ROSITA (currently sober), anxiety, depression, borderline personality disorder. The developmental history is significant for stressors during and meeting all milestones. Previous medications trials were limited to: Zoloft, Prozac, Lexapro, Wellbutrin, Abilify, Vistaril Cameron lives with bio dad, step-mom, and paternal younger half-siblings in [place], [place]. In terms of stressors, patient's family identifies chronic substance use. The patient reports history of neglect and possibly witnessing trauma, but details are thus far vague. Upon examination, Cameron was observed to be hypervigilant and anxious. Current diagnostic differential includes ROSITA, anxiety, depression, PTSD. Possible ADHD as per history. Overall, Cameron Teresa meets criteria for diagnoses as below. There are some acute concerns for safety while admitted; therefore, Standard precautions will be implemented for this patient. The anticipated benefits and side effects of receiving, not receiving, and alternatives to antidepressant including: FDA warnings, possible adverse affect on mood, activation potential, common side effects, possible overdose effects if the medication is a TCA or MAOI, monitoring schedule, need for treatment compliance, and drug-drug interactions were explained. The above information was given by the staff in oral form and sufficient understanding was in evidence. The patient and dad + stepmom actively participated in the discussion of these medications and provided informed consent for starting the above medications. Also, no concerns were raised before the medication was given. Also discussed risk and benefits of Remeron (for sleep, depression, sparse evidence for reducing meth cravings in adults). Concerns were raised that decreased cravings might lead patient not to recognize consequences of using. Did not consent to starting Remeron at this time. Formulation: Cameron is a 14 yo boy with PPH anxiety, depression, PTSD, and polysubstance abuse who was admitted to inpatient psychiatry on 06/06 for management of SI. He reports increased anxiety, depression, PTSD symptoms, and SI (frequency and severity) since cessation of meth use. He also reports significant anger which corresponds to desire to punch or strangle people (no specific victim) until they . He reports significant history of drug use starting at age 11, which he describes as an attempt to self-medicate his significant anxiety and hypervigilance. Family history is significant for anxiety, depression, BPD, and substance use (currently sober) in mom. He reports poor coping skills, no friends, and strained relationship with family. When not in residential treatment at [facility], he lives with bio dad, stepmother (in his life since 1 yo), and two younger half siblings. He currently is facing legal charges as a result of his drug use. At this point, determining whether substance use or mood disturbance is the root cause of the current presentation. Given the presence of SI and severity of mood/anger symptoms, will start antidepressant to target mood symptoms and hopefully enable him to engage in therapy more effectively. Will consider possibility of trialing a medication that might help to target cravings for meth. Active Hospital Problems Diagnosis Date Noted - MDD (major depressive disorder) 06/07/2020 Overview Note: Patient admitted for SI on 06/06. Evaluation and family meeting completed on 06/07. Reports chronic SI and PDW that have worsened since cessation of meth use 5-6 weeks ago. Failed trials of Prozac, Zoloft, Lexapro, Wellbutrin PLAN: - 06/08: start Effexor 37.5 mg daily - PTSD (post-traumatic stress disorder) 06/07/2020 Overview Note: Admitted for SI on 06/06. Evaluation and family meeting completed on 06/07. Reports history of neglect and witnessing trauma as a child. Reports significant symptoms consistent with PTSD, including flashbacks, lack of trust, difficulty sleeping, and hypervigilant. On evaluation, appears hypervigilant, turning around repeatedly to look behind him. Failed trials of Prozac, Zoloft, Lexapro, Wellbutrin PLAN: - 06/08: start Effexor 37.5 mg daily - Polysubstance abuse (HCC) 06/07/2020 Overview Note: Currently in residential treatment at [facility]. Main drug of abuse currently = meth Last use 5-6 weeks ago PLAN: - determine appropriate outpatient planning (CD vs mood vs dual diagnosis) - consider use of medication to assist with persistent meth cravings - family currently reluctant HISTORY OF PRESENT ILLNESS CHIEF COMPLAINT(S) Suicidal ideation Per patient report: Cameron reports that he was having a normal day at [facility] yesterday. He states that he was speaking with his therapist there before group, and therapist had encouraged him to be more honest about his feelings so as to engage more effectively in group. He shared during group that he was having SI and thoughts of harming others, so he was assessed further for risk of harm to self or others then sentto the ED. He reports that he has daily SI and passive wishes. SI last for seconds to 30 minutes, depending on whether or not distracts himself. He states that he tends to bottle up his feelings, and then they become overwhelming. He states that he has always struggled to manage strong emotions including anxiety and his hypervigilance which is a main factor that drives his substance use - when he is using, he can numb his feelings. He reports that, since stopping use of meth, he has experienced more intense and frequent SI. He gets upset when he thinks about not being able to use meth and get to that level of happiness again. Then, he starts to feel hopeless. He associates this increase in hopelessness with his increased SI. He reports continued cravings for meth. Also since he stopped using meth, he reports feeling much more angry than he used to feel. When he is feeling angry, sometimes he wants to hurt unspecified people by punching them or strangling them until they are . Denies AVH. Patient identified goals of hospitalization: 1. Start medications to improve mood Per caregiver, Héctor and step mom Noa ([phone]): The situation leading up to admission began when Cameron had requested that [facility] allow him to go to recovery housing, a lower level of care, in spite of his not going to therapy or school during the duration of his time at [facility]. Caregivers refused the change in level of care because he has only been sober for a short period, needs constant treatment, and needs to be pushed to attend therapy. As soon as his therapist told his that he would have to stay in residential, he told her that he wanted to kill himself and other people. Family states that wanting to hurt others is new. Family is very concerned about this new development as they worry that something is extremely mentally wrong with him. They note that he is angry all the time, his moods change rapidly, and he is very manipulative - he will say anything he has to in order to get what he wants. A few days prior to his admission, he had denied anxiety, depression, and SI to [facility]. There have been reports that there have been increased behavioral problems at [facility], however - and family attributes this to Cameron's determining that he can get his way if he threatens people. Family is acutely aware of manipulative behaviors and comments - they have completed intense parenting classes and completed [facility] program (November to April 2020). He has only spoken to his family once in the past month at [facility], and, at that time, he gave them the impression that he does not wish to change his behavior or stop using. They report that he has outbursts when he doesn't get what he wants. He will get very angry or cry. If he gets in trouble or a privilege is taken away, he damages stuff in his room. Outbursts started after substance use started. They report that he would cry over little stuff as a kid, however. They state that he does not like routine, rules, or structure. They demand that he does one chore per day, picks up his room, and brusheshis teeth - and he finds this onerous. They state that he would prefer that he have no rules and no oversight at any time. They report that, as a child, he was often left at home by himself. By 6 yo, he was responsible for watching his 1 yo brother. Doors of the home were not locked at night, and men would come in and out. Family has been encouraging him to work through his trauma, but he refuses. He tries to blame his dad and stepmom for problems and feelings. Caregiver identified goals of hospitalization: 1. Figure out next steps - primary mood vs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 /min PHYSICIAN NO [facility] 10-13-2022 15:35-0400 SaO2% (BldA) [Mass fraction] 100 % PHYSICIAN NO [facility] 10-13-2022 15:35-0400 Systolic blood pressure 153 mm[Hg] PHYSICIAN NO [facility] 09-27-2022 14:45-0400 Body height 198.12 cm PHYSICIAN NO [facility] 09-27-2022 14:45-0400 Body temperature 98.9 [degF] PHYSICIAN NO [facility] 09-27-2022 14:45-0400 Body weight 82.3 kg PHYSICIAN NO [facility] 09-27-2022 14:45-0400 Diastolic blood pressure 77 mm[Hg] PHYSICIAN NO [facility] 09-27-2022 14:45-0400 Heart rate 94 /min PHYSICIAN NO [facility] 09-27-2022 14:45-0400 Respiratory rate 16 /min PHYSICIAN NO [facility] 09-27-2022 14:45-0400 SaO2% (BldA) [Mass fraction] 98 % PHYSICIAN NO [facility] 09-27-2022 14:45-0400 Systolic blood pressure 170 mm[Hg] PHYSICIAN NO [facility] 08-02-2022 20:13-0500 Body height 187.96 cm MD Clari Owen MD [employer] 08-02-2022 20:13-0500 Body weight 75 kg MD Clari Owen MD [employer] 04-25-2022 16:28-0400 Body height 195.58 cm MD Deo Hamm MD [employer] 04-25-2022 16:28-0400 Body mass index (BMI) [Ratio] 20.9 kg/m2 MD Deo Hamm MD [employer] 04-25-2022 16:28-0400 Body weight 80 kg MD Deo Hamm MD [employer] 11-05-2021 14:21-0400 Body height 198.12 cm Linnea Angulo [employer] Work Phone: [facility] Work Phone: 11-05-2021 14:21-0400 Body mass index (BMI) [Ratio] 22.07 kg/m2 Linnea B Iliano Work Phone: [facility] Work Phone: 11-05-2021 14:21-0400 Body surface area Derived from formula 2.21 m2 Linnea B Iliano Work Phone: [facility] Work Phone: 11-05-2021 14:21-0400 Body weight 86.64 kg Linnea B Iliano Work Phone: [facility] Work Phone: 11-05-2021 14:21-0400 Diastolic blood pressure 62 mm[Hg] Linnea Angulo Iliano Work Phone: [facility] Work Phone: 11-05-2021 14:21-0400 Heart rate 106 /min Linnea Angulo Iliano Work Phone: [facility] Work Phone: 11-05-2021 14:21-0400 SaO2% (BldA) [Mass fraction] 98 % Linnea B Iliano Work Phone: [facility] Work Phone: 11-05-2021 14:21-0400 Systolic blood pressure 102 mm[Hg] Linnea Angulo Iliano Work Phone: [facility] Work Phone: 11-05-2021 14:21-0400 91 1 Linnea Angulo Iliano Work Phone: [facility] Work Phone: Comment on above: 08-16_WPerc 11-05-2021 [id number] 99 1 Linnea Angulo Iliano Work Phone: [facility] Work Phone: Comment on above: 08-16_SPerc 11-05-2021 14:21-0400 50 1 Linnea Angulo Iliano Work Phone: [facility] Work Phone: Comment on above: [employer] 11-05-2021 14:19-0400 Body height 198.12 cm Linnea B Iliano Work Phone: [facility] Work Phone: 11-05-2021 14:19-0400 99 1 Linnea B Iliano Work Phone: [facility] Work Phone: Comment on above: 08-16_SPerc 09-23-2020 02:18-0400 BMI (Body Mass Index) 20.9 kg/m2 Wai Dale [facility] 09-23-2020 02:180400 Body weight 80 kg Wai Dale [facility] Encounters Encounter Date Encounter Type Care Provider Facility Start: 03-20-2024 End: 03-20-2024 ambulatory [facility] Work Phone: Start: 03-20-2024 End: 03-20-2024 Patient encounter procedure [facility] Physician [facility] [place] Work Phone: Start: 01-17-2024 Non-patient / Non-visit [facility] Physician [facility] Work Phone: Start: 11-14-2023 End: 11-14-2023 [facility]: [facility] Work Phone: Start: 10-31-2023 End: 10-31-2023 ambulatory [facility] Work Phone: Start: 10-31-2023 End: 10-31-2023 Patient encounter procedure [facility] Physician [facility] [place] Work Phone: Start: 10-28-2023 End: 10-28-2023 Emergency department patient visit [facility] Start: 10-06-2023 End: 10-06-2023 ambulatory [facility] Work Phone: Start: 10-06-2023 End: 10-06-2023 Patient encounter procedure [facility] Physician [facility] [place] Work Phone: Start: 09-22-2023 End: 09-22-2023 ambulatory [facility] Work Phone: Start: 09-22-2023 End: 09-22-2023 Patient encounter procedure [facility] Physician [facility] [place] Work Phone: Start: 05-24-2023 End: 05-24-2023 ambulatory Nayla Easterwood Other [employer] Other Start: 05-24-2023 Telephone encounter Nayla Easterwood [facility] Start: 05-17-2023 End: 05-17-2023 Patient encounter procedure PHYSICIAN [facility] [place] Work Phone: Start: 05-17-2023 End: 05-17-2023 ambulatory PHYSICIAN [facility] Work Phone: Start: 05-16-2023 End: 05-16-2023 ambulatory Nayla Easterwood Other [employer] Other Start: 05-16-2023 Telephone encounter Nayla Easterwood [facility] Start: 04-21-2023 End: 04-21-2023 ambulatory Nayla Easterwood Other [employer] Other Start: 04-21-2023 Telephone encounter Nayla Easterwood [facility] Start: 04-04-2023 Telephone encounter Nayla Easterwood [facility] Start: 04-04-2023 End: 04-05-2023 ambulatory JOHN GILES [employer] Other Start: 04-01-2023 End: 04-01-2023 ambulatory Nayla Easterwood Other [employer] Other Start: 04-01-2023 Telephone encounter Nayla Easterwood [facility] [place] Start: 03-29-2023 End: 03-29-2023 ambulatory Nayla Easterwood Other [employer] Other Start: 03-29-2023 Telephone encounter Nayla Easterwood [facility] [place] Start: 03-22-2023 End: 03-22-2023 ambulatory Nayla Easterwood Other [employer] Other Start: 03-22-2023 Telephone encounter Nayla Luzangel [facility] Start: 03-07-2023 End: 03-08-2023 ambulatory Kenroy Jackson Facility:[facility] Start: 03-07-2023 End: 03-07-2023 Patient encounter procedure Kenroy Jackson [facility] Start: 02-27-2023 End: 02-27-2023 Emergency department patient visit PHYSICIAN NO [facility] Work Phone: Start: 02-21-2023 End: 02-21-2023 ambulatory Nayla Dorsey Other [employer] Other Start: 02-21-2023 Telephone encounter Naylashanna Kimcody [facility] Start: 02-13-2023 End: 02-13-2023 ambulatory Nazario Fine Other [employer] Other Start: 02-13-2023 Office outpatient vi sit 15 minutes Nazario Fine [facility] Start: 02-10-2023 End: 02-10-2023 ambulatory Ana Laura Lacey Other [employer] Other Start: 02-10-2023 Telephone encounter Ana Laura Lacey [facility] Start: 02-06-2023 Office outpatient ne w 30 minutes Ana Laura Lacey [facility] Start: 02-06-2023 End: 02-06-2023 ambulatory PHYSICIAN NO [employer] Other Start: 02-06-2023 End: 02-06-2023 Departed Referred [employer] Ana Laura Lacey Work Phone: [facility] [place] Work Phone: Start: 10-23-2022 ambulatory Ms. Linnea Zapata Facility:[id number] Start: 10-21-2022 End: 10-23-2022 Evaluation and management of inpatient PHYSICIAN NO [facility] Work Phone: Start: 10-13-2022 End: 10-13-2022 Emergency department patient visit PHYSICIAN NO [facility] Work Phone: Start: 10-13-2022 End: 10-13-2022 Patient encounter procedure PHYSICIAN NO [facility] [place] Work Phone: Start: 09-27-2022 End: 09-27-2022 Emergency department patient visit PHYSICIAN NO [facility] Work Phone: Start: 08-02-2022 End: 08-02-2022 ambulatory OTHER PCP Facility:UNKNOWN Start: 04-25-2022 End: 04-25-2022 ambulatory OTHER PCP Facility:UNKNOWN Start: 11-13-2021 AUDIT Linnea root Work Phone: [facility] Work Phone: Start: 11-05-2021 Current tobacco non-user cad cap copd pv dm Linnea Zapata Work Phone: [facility] Work Phone: Start: 11-05-2021 ambulatory Ms. Linnea cheung Deannaivan Facility:[id number] Start: 10-29-2020 End: 10-29-2020 ambulatory [facility] Start: 10-29-2020 Encounter for routin e child health examination without abnormal findings [facility] Start: 10-24-2020 End: 10-24-2020 ambulatory EDWARD [facility] Start: 08-19-2020 Patient encounter procedure UNKNOWN PROVIDER Facility:[facility] Patient encounter procedure Linnea Zapata Work Phone: [facility] Work Phone: MD Clari Pacheco [facility] Procedures Date Procedure Procedure Detail Performing Clinician Start: 02-06-2023 End: 02-06-2023 Throat culture PHYSICIAN NO FAMILY Start: 09-27-2022 CT of head without contrast PHYSICIAN NO FAMILY Plan of Treatment Date Care Activity Detail Author Start: 03-20-2024 Patient referral [facility] Work Phone: Start: 11-14-2023 Plain chest X-ray XR chest 1V portab le [facility] Start: 11-14-2023 XR Chest Single view [facility] Start: 09-22-2023 Patient referral [facility] Work Phone: Start: 02-06-2023 Throat culture Throat Culture [facility] Start: 10-23-2022 [facility] Start: 10-23-2022 Referral to senior java software engineer [facility] Start: 10-22-2022 Comprehensive metabo lic 2000 panel - Serum or Plasma [facility] Start: 10-22-2022 End: 10-22-2022 [facility] Start: 10-21-2022 Hospital admission [facility] Start: 10-21-2022 Referral to psychiatrist [facility] Start: 10-21-2022 [facility] Bacteria identified in Throat by Aerobe culture [facility] Patient Education [facility] Work Phone: Patient referral [facility] Work Phone: Immunizations Immunization Date Immunization Notes Care Provider Devi barahona 06-30-2021 Pfizer-BioNTech COVI D-19 Vacc 30 MCG/0.3ML Intramuscular Suspension Linnea Zapata Work Phone: [facility] 06-09-2021 influenza virus vacc ine, unspecified formulation Kenroy Jackson [facility] 06-09-2021 influenza, injectabl e, quadrivalent, preservative free Linnea Angulo Iliano Work Phone: [facility] Work Phone: 06-09-2021 [email or web address] COVI D-19 Vacc 30 MCG/0.3ML Intramuscular Suspension Linnea Zapata Work Phone: [facility] 10-29-2020 meningococcal ACWY vaccine, unspecified formulation Kenroy Jackson [facility] 10-29-2020 meningococcal oligosaccharide (groups A, C, Y and W-135) diphtheria toxoid conjugate vaccine (MCV4O) Linnea Zapata Work Phone: [facility] Work Phone: 08-18-2018 HPV, unspecified formulation Kenroy Jackson [facility] 08-18-2018 Human Papillomavirus 9-valent vaccine Linnea Zapata Work Phone: [facility] Work Phone: 03-07-2018 HPV, unspecified formulation Kenroy Jackson [facility] 03-07-2018 Human Papillomavirus 9-valent vaccine Linnea Zapata Work Phone: [facility] Work Phone: 12-23-2015 Hep A, unspecified formulation Kenroy Jackson [facility] 12-23-2015 meningococcal ACWY vaccine, unspecified formulation Kenroy Jackson [facility] 12-23-2015 meningococcal polysaccharide (groups A, C, Y and W-135) diphtheria toxoid conjugate vaccine (MCV4P); Translations: [Menactra Intramuscular Injectable] Jaxson Starks [facility] Work Phone: Comment on above: Series: 12-23-2015 hepatitis A vaccine, pediatric/adolescent dosage, 2 dose schedule; Translations: [Hepatitis A, Ped/Adol] Jaxson Starks [facility] Work Phone: Comment on above: Series: 11-22-2014 hepatitis A vaccine, unspecified formulation Kenroy Manuel [facility] 11-22-2014 hepatitis A vaccine, pediatric/adolescent dosage, 2 dose schedule; Translations: [Hepatitis A, Ped/Adol] Jaxson Starks [facility] Work Phone: Comment on above: Series: 11-22-2014 tetanus toxoid, redu anup diphtheria toxoid, and acellular pertussis vaccine, adsorbed; Translations: [Tdap] [facility] Comment on above: Series: 05-04-2012 influenza virus vacc ine, unspecified formulation Linnea B Iliano Work Phone: [facility] Comment on above: Series: 05-04-2012 influenza, seasonal, injectable Jaxson Starks [facility] Work Phone: 05-26-2011 influenza virus vacc ine, unspecified formulation Kenroy Manuel [facility] 05-26-2011 influenza, seasonal, injectable Linnea B Iliano Work Phone: [facility] Work Phone: 05-20-2010 influenza virus vacc ine, unspecified formulation Kenroynorman Jackson [facility] 05-20-2010 influenza, seasonal, injectable Linnea B Iliano Work Phone: [facility] Work Phone: 04-23-2009 influenza virus vacc ine, H1N1, live Kenroy Jackson [facility] 04-23-2009 influenza virus vacc ine, unspecified formulation Kenroy Jackson [facility] 04-23-2009 influenza, seasonal, injectable Linnea B Iliivan Work Phone: [facility] Work Phone: 04-23-2009 novel Influenza-H1N1 -09, live virus for nasal administration Linnearoger Zapata Work Phone: [facility] Work Phone: 03-25-2009 diphtheria, tetanus toxoids and acellular pertussis vaccine Kenroy Jackson [facility] 03-25-2009 diphtheria, tetanus toxoids and acellular pertussis vaccine, 5 pertussis antigens Jaxsonkiley Starks [facility] Work Phone: Comment on above: Series: 03-25-2009 poliovirus vaccine, inactivated Jaxson Starks [facility] Work Phone: Comment on above: Series: 03-25-2009 varicella virus vaccine [facility] Comment on above: Series: 03-22-2009 poliovirus vaccine, unspecified formulation Kenroy Jackson [facility] 06-20-2006 influenza virus vacc ine, unspecified formulation Linnea Zapata Work Phone: [facility] Comment on above: Series: 06-20-2006 influenza, seasonal, injectable Jaxson Starks [facility] Work Phone: 09-02-2005 measles, mumps and rubella virus vaccine [facility] Comment on above: Series: 06-29-2005 influenza virus vacc ine, unspecified formulation Linnea B Iliivan Work Phone: [facility] Comment on above: Series: 06-29-2005 influenza, seasonal, injectable Jaxson Starks [facility] Work Phone: 05-28-2005 influenza virus vacc ine, unspecified formulation Linnea B Iliano Work Phone: [facility] Comment on above: Series: 05-28-2005 influenza, seasonal, injectable Jaxson Starks [facility] Work Phone: 02-19-2005 poliovirus vaccine, inactivated Jaxsonkiley Starks [facility] Work Phone: Comment on above: Series: 02-19-2005 poliovirus vaccine, unspecified formulation Kenroy Manuel [facility] 11-16-2004 diphtheria, tetanus toxoids and acellular pertussis vaccine, unspecified formulation Linnea Zapata Work Phone: [facility] Work Phone: 11-16-2004 DTaP, unspecified formulation Kenroy Jackson [facility] 11-16-2004 haemophilus influenz ae type b vaccine, PRP-OMP conjugate Jaxson Starks [facility] Work Phone: Comment on above: Series: 11-16-2004 pneumococcal conjuga te vaccine, 7 valent Jaxson Starks [facility] Work Phone: Comment on above: Series: 11-06-2004 haemophilus influenz ae type b vaccine, conjugate unspecified formulation Linnea Zapata Work Phone: [facility] Work Phone: 11-06-2004 Hib, unspecified formulation Kenroy Manuel [facility] 10-27-2004 diphtheria, tetanus toxoids and acellular pertussis vaccine, 5 pertussis antigens Jaxson Starks [facility] Work Phone: Comment on above: Series: 10-26-2004 diphtheria, tetanus toxoids and acellular pertussis vaccine Kenroy Jackson [facility] 08-20-2004 measles, mumps and rubella virus vaccine [facility] Comment on above: Series: 08-20-2004 varicella virus vaccine [facility] Comment on above: Series: 05-22-2004 hepatitis B vaccine, adult dosage Jaxson Starks [facility] Work Phone: Comment on above: Series: 05-22-2004 hepatitis B vaccine, pediatric or pediatric/adolescent dosage Kenroy Abrahampsey [facility] 03-13-2004 diphtheria, tetanus toxoids and acellular pertussis vaccine Kenroy Manuel [facility] 03-13-2004 diphtheria, tetanus toxoids and acellular pertussis vaccine, 5 pertussis antigens Jaxson [facility] Work Phone: Comment on above: Series: 03-13-2004 haemophilus influenz ae type b vaccine, PRP-OMP conjugate Jaxson Starks [facility] Work Phone: Comment on above: Series: 03-13-2004 pneumococcal conjuga te vaccine, 7 valent Jaxson Starks [facility] Work Phone: Comment on above: Series: 01-08-2004 diphtheria, tetanus toxoids and acellular pertussis vaccine Kenroy Manuel [facility] 01-08-2004 diphtheria, tetanus toxoids and acellular pertussis vaccine, 5 pertussis antigens Jaxson Starks [facility] Work Phone: Comment on above: Series: 01-08-2004 haemophilus influenz ae type b vaccine, PRP-OMP conjugate Jaxson Starks [facility] Work Phone: Comment on above: Series: 01-08-2004 pneumococcal conjuga te vaccine, 7 valent Jaxson Starks [facility] Work Phone: Comment on above: Series: 01-08-2004 poliovirus vaccine, inactivated Jaxson Starks [facility] Work Phone: Comment on above: Series: 01-08-2004 poliovirus vaccine, unspecified formulation Kenroy Abrahampsey [facility] 2003 diphtheria, tetanus toxoids and acellular pertussis vaccine Kenroy Manuel [facility] 2003 diphtheria, tetanus toxoids and acellular pertussis vaccine, 5 pertussis antigens Jaxson Morrisff [facility] Work Phone: Comment on above: Series: 2003 haemophilus influenz ae type b vaccine, PRP-OMP conjugate Jaxson Starks [facility] Work Phone: Comment on above: Series: 2003 hepatitis B vaccine, adult dosage Jaxson Starks [facility] Work Phone: Comment on above: Series: 2003 hepatitis B vaccine, pediatric or pediatric/adolescent dosage Kenroy Abrahampsey [facility] 2003 pneumococcal conjuga te vaccine, 7 valent Jaxson Starks [facility] Work Phone: Comment on above: Series: 2003 poliovirus vaccine, inactivated Jaxson Starks [facility] Work Phone: Comment on above: Series: 2003 poliovirus vaccine, unspecified formulation Kenroy Abrahampsey [facility] 2003 hepatitis B vaccine, adult dosage [facility] Work Phone: Comment on above: Series: 2003 hepatitis B vaccine, pediatric or pediatric/adolescent dosage Kenroy Abrahampsey [facility] Care Payers Date Payer Category Payer Medicaid [id number] 2023 Self-pay 2019 [facility] [id number] 2019 Medicaid [id number] 2003 Unknown [id number] 93 2003 Unknown [id number] [id number] 56 2003 Unknown [id number] 2.16.840.1.936807.3.579.2.7 27 2003 Unknown [id number] 2.16.840.1.922284.3.579.2.7 27 2003 Unknown [id number] 2.16.840.1.948793.3.579.2.7 27 1982 Unknown [id number] 2.16.840.1.119433.3.579.2.6 93 1979 Unknown [id number] 2.16.840.1.819302.3.579.2.3 56 1965 Unknown [id number] 2.16.840.1.892764.3.579.2.7 32 1965 Unknown [id number] 2.16.840.1.768186.3.579.2.7 32 Unknown [id number] 2.16.840.1.985393.3.579.2.6 51 Unknown [id number] 2.16.840.1.836383.3.579.2.6 51 Unknown [employer] MED[employer] Unknown [id number] [id number] 31 Unknown [id number] 2.16.840.1.809461.3.579.2.5 31 Unknown [id number] 2.16.840.1.512155.3.579.2.5 31 Unknown [id number] 2.16.840.1.430356.3.579.2.5 31 Social History Date Type Detail Facility Start: 09-23-2020 End: 08-02-2022 Not Known [facility] Lives with grandparent(s) Lives with grandparent(s) [facility] Work Phone: [facility] [place] Start: 09-27-2022 Tobacco smoking status NHIS Never smoked tobacco (finding) [facility] Start: 2005 Sex Assigned At Male [facility] Start: 10-21-2022 End: 11-14-2023 Tobacco smoking status NHIS Smoker (finding) [facility] Tobacco Current vaping o r e-cigarette use Smokeless Tobacco Use:. Vaping [facility] Tobacco smoking status No Smoking Status Entered [facility] NEGATED: Highlighted row - - [facility] Work Phone: Goals Date Patient Goal Desired Activity /State Functional Status Date Assessment Result Facility 03-07-2023 Functional Status N/A [facility] 10-21-2022 Functional status Patient at Baseline [facility] Work Phone: NEGATED: Highlighted row Functional performance Functional status health issues are not documented Disease [facility] Work Phone: Mental Status Date Assessment Result Facility 10-21-2022 Cognitive function Cognitive Sta tus Patient at Baseline [facility] Work Phone: NEGATED: Highlighted row Cognitive function [Interpretation] Cognitive status health issues are not documented Disease -[facility] Work Phone: Clinical Notes 05-15-2021 to 05-16-2023 Note Date & Type Note Facility 05-16-2023 Evaluation note Encounter Date Diagnosis Assessment Notes Apr, Polydipsia (ICD-10 - R63.1) [facility] Other 10-26-2023 Evaluation note* Encounter Date Diagnosis Assessment Notes Treatment Notes Treatment Clinical Notes Mar, TMJ (temporomandibular joint disorder) (ICD-10 - M26.609) [facility] Other 10-09-2023 Evaluation note* Encounter Date Diagnosis Assessment Notes Treatment Notes Treatment Clinical Notes Mar, TMJ (temporomandibular joint disorder) (ICD-10 - M26.609) [facility] Other 10-06-2023 Evaluation note* Encounter Date Diagnosis Assessment Notes Treatment Notes Treatment Clinical Notes Mar, TMJ (temporomandibular joint disorder) (ICD-10 - M26.609) [facility] Other 10-03-2023 Evaluation note* Encounter Date Diagnosis Assessment Notes Treatment Notes Treatment Clinical Notes Mar, TMJ (temporomandibular joint disorder) (ICD-10 - M26.609) [facility] Other 09-11-2023 Hospital Discharge instructions Patient Education 03/07/2023 18:53:14 Cervical Sprain, Ckvn-pa-Yija Cervical Sprain A cervical sprain is also called a neck sprain. It is a stretch or tear in one or more ligaments inthe neck. Ligaments are tissues that connect bones to each other. Neck sprains can be mild, bad, or very bad. A very bad sprain in the neck can cause the bones in the neck to be unstable. This can damage the spinal cord. It can also cause serious problems in the brain, spinal cord, and nerves (nervous system). Most neck sprains heal in 4 6 weeks. It can take more or less time depending on: What caused the injury. The amount of injury. What are the causes? Neck sprains may be caused by trauma, such as: An injury from an accident in a vehicle such as a car or boat. A fall. The head and neck being moved front to back or side to side all of a sudden (whiplash injury). Mild neck sprains may be caused by wear and tear over time. What increases the risk? The following factors may make you more likely to develop this condition: Taking part in activities that put you at high risk of hurting your neck. These include: ?Contact sports. ?Car racing. ?Gymnastics. ?Diving. Taking risks when driving or riding in a vehicle such as a car or boat. Arthritis caused by wear and tear of the joints in the spine. The neck not being very strong or flexible. Having had a neck injury in the past. Poor posture. Spending a lot of time in certain positions that put stress on the neck. This may be from sitting at a computer for a long time. What are the signs or symptoms? Symptoms of this condition include: Your neck, shoulders, or upper back feeling: ?Painful or sore. ?Stiff. ?Tender. ?Swollen. ?Hot, or like it is burning. Sudden tightening of neck muscles (spasms). Not being able to move the neck very much. Headache. Feeling dizzy. Feeling like you may vomit, or vomiting. Having a hand or arm that: ?Feels weak. ?Loses feeling (feels numb). ?Tingles. You may get symptoms right away after injury, or you may get them over a few days. In some cases, symptoms may go away with treatment and come back over time. How is this treated? This condition is treated by: Resting your neck. Icing the part of your neck that is hurt. Doing exercises to restore movement and strength to your neck (physical therapy). If there is no swelling, you may use heat therapy 2 3 [address] after the injury took place. If your injury is very bad, treatment may also include: Keeping your neck in place for a length of time. This may be done using: ?A neck collar. This supports your chin and the back of your head. ?A cervical traction device. This is a sling that holds up your head. The sling removes weight and pressure from your neck. It may also help to relieve pain. Medicines that help with: ?Pain. ?Irritation and swelling (inflammation). Medicines that help to relax your muscles (muscle relaxants). Surgery. This is rare. Follow these instructions at home: Medicines Take keta-dgn-rqaykxv and prescription medicines only as told by your doctor. Ask your doctor if the medicine prescribed to you: ?Requires you to avoid driving or using heavy machinery. ?Can cause trouble pooping (constipation). You may need to take these actions to prevent or treat trouble pooping: ?Drink enough fluid to keep your pee (urine) pale yellow. ?Take fbrk-kue-nlytsyi or prescription medicines. ?Eat foods that are high in fiber. These include beans, whole grains, and fresh fruits and vegetables. ?Limit foods that are high in fat and sugar. These include fried or sweet foods. If you have a neck collar: Wear it as told by your doctor. Do not take it off unless told. Ask your doctor before adjusting your collar. If you have long hair, keep it outside of the collar. Ask your doctor if you may take off the collar for cleaning and bathing. If you may take off the collar: ?Follow instructions about how to take it off safely. ?Clean it by hand with mild soap and water. Let it air-dry fully. ?If your collar has pads that you can take out: ?Take the pads out every 1 2 days. ?Wash them by hand with soap and water. ?Let the pads air-dry fully before you put them back in the collar. ?Tell your doctor if your skin under the collar has irritation or sores. Managing pain, stiffness, and swelling Use a cervical traction device, if told by your doctor. If told, put ice on the affected area. To do this: ?Put ice in a plastic bag. ?Place a towel between your skin and the bag. ?Leave the ice on for 20 minutes, 2 3 times a day. If told, put heat on the affected area. Do this before exercise or as often as told by your doctor.Use the heat source that your doctor recommends, such as a moist heat pack or a heating pad. ?Place a towel between your skin and the heat source. ?Leave the heat on for 20 30 minutes. ?Take the heat off if your skin turns bright red. This is very important if you cannot feel pain, heat, or cold. You may have a greater risk of getting burned. Activity Do not drive while wearing a neck collar. If you do not have a neck collar, ask if it is safe to drive while your neck heals. Do not lift anything that is heavier than 10 lb (4.5 kg), or the limit that you are told, until your doctor tells you that it is safe. Rest as told by your doctor. Do exercises as told by your doctor or physical therapist. Return to your normal activities as told by your doctor. Avoid positions and activities that make you feel worse. Ask your doctor what activities are safe for you. General instructions Do not use any products that contain nicotine or tobacco, such as cigarettes, e- cigarettes, and chewing tobacco. These can delay healing. If you need help quitting, ask your doctor. Keep all follow-up visits as told by your doctor or physical therapist. This is important. How is this prevented? To prevent a neck sprain from happening again: Practice good posture. Adjust your workstation to help you do this. Exercise regularly as told by your doctor or physical therapist. Avoid activities that are risky or may cause a neck sprain. Contact a doctor if: Your symptoms get worse. Your symptoms do not get better after 2 weeks of treatment. Your pain gets worse. Medicine does not help your pain. You have new symptoms that you cannot explain. Your neck collar gives you sores on your skin or bothers your skin. Get help right away if: You have very bad pain. You get any of the following in any part of your body: ?Loss of feeling. ?Tingling. ?Weakness. You cannot move a part of your body. You have neck pain and either of these: ?Very bad dizziness. ?A very bad headache. Summary A cervical sprain is also called a neck sprain. It is a stretch or tear in one or more ligaments inthe neck. Ligaments are tissues that connect bones. Neck sprains may be caused by trauma, such as an injury or a fall. You may get symptoms right away after injury, or you may get them over a few days. Neck sprains may be treated with rest, heat, ice, medicines, exercise, and surgery. This information is not intended to replace advice given to you by your health care provider. Make sure you discuss any questions you have with your health care provider. Document Revised: 02/20/2020 Document Reviewed: 02/20/2020 [employer] Patient Education 2022 Robert Applebaum MD. 03/07/2023 18:52:56 Temporomandibular Joint Syndrome Temporomandibular Joint Syndrome Temporomandibular joint syndrome (TMJ syndrome) is a condition that causes pain in the temporomandibular joints. These joints are located near your ears and allow your jaw to open and close. For people with TMJ syndrome, chewing, biting, or other movements of the jaw can be difficult or painful. TMJ syndrome is often mild and goes away within a few weeks. However, sometimes the condition becomes a long-term (chronic) problem. What are the causes? This condition may be caused by: Grinding your teeth or clenching your jaw. Some people do this when they are stressed. Arthritis. An injury to the jaw. A head or neck injury. Teeth or dentures that are not aligned well. In some cases, the cause of TMJ syndrome may not be known. What are the signs or symptoms? The most common symptom of this condition is aching pain on the side of the head in the area of theTMJ. Other symptoms may include: Pain when moving your jaw, such as when chewing or biting. Not being able to open your jaw all the way. Making a clicking sound when you open your mouth. Headache. Earache. Neck or shoulder pain. How is this diagnosed? This condition may be diagnosed based on: Your symptoms and medical history. A physical exam. Your health care provider may check the range of motion of your jaw. Imaging tests, such as X-rays or an MRI. You may also need to see your dentist, who will check if your teeth and jaw are lined up correctly. How is this treated? TMJ syndrome often goes away on its own. If treatment is needed, it may include: Eating soft foods and applying ice or heat. Medicines to relieve pain or inflammation. Medicines or massage to relax the muscles. A splint, bite plate, or mouthpiece to prevent teeth grinding or jaw clenching. Relaxation techniques or counseling to help reduce stress. A therapy for pain in which an electrical current is applied to the nerves through the skin (transcutaneous electrical nerve stimulation). Acupuncture. This may help to relieve pain. Jaw surgery. This is rarely needed. Follow these instructions at home: Eating and drinking Eat a soft diet if you are having trouble chewing. Avoid foods that require a lot of chewing. Do not chew gum. General instructions Take fqku-flf-bzymowt and prescription medicines only as told by your health care provider. If directed, put ice on the painful area. To do this: ?Put ice in a plastic bag. ?Place a towel between your skin and the bag. ?Leave the ice on for 20 minutes, 2 3 times a day. ?Remove the ice if your skin turns bright red. This is very important. If you cannot feel pain, heat, or cold, you have a greater risk of damage to the area. Apply a warm, wet cloth (warm compress) to the painful area as told. Massage your jaw area and do any jaw stretching exercises as told by your health care provider. If you were given a splint, bite plate, or mouthpiece, wear it as told by your health care provider. Keep all follow-up visits. This is important. Where to find more information National [place] [employer] Research: www.nidcr.nih.gov Contact a health care provider if: You have trouble eating. You have new or worsening symptoms. Get help right away if: Your jaw locks. Summary Temporomandibular joint syndrome (TMJ syndrome) is a condition that causes pain in the temporomandibular joints. These joints are located near your ears and allow your jaw to open and close. TMJ syndrome is often mild and goes away within a few weeks. However, sometimes the condition becomes a long-term (chronic) problem. Symptoms include an aching pain on the side of the head in the area of the TMJ, pain when chewing or biting, and being unable to open your jaw all the way. You may also make a clicking sound when youopen your mouth. TMJ syndrome often goes away on its own. If treatment is needed, it may include medicines to relieve pain, reduce inflammation, or relax the muscles. A splint, bite plate, or mouthpiece may also be used to prevent teeth grinding or jaw clenching. This information is not intended to replace advice given to you by your health care provider. Make sure you discuss any questions you have with your health care provider. Document Revised: 01/24/2022 Document Reviewed: 01/24/2022 [employer] Patient Education 2022 Robert Applebaum MD. Follow Up Care 03/07/2023 14:45:40 With:NONE, XXXX Address: [phone] When: Unknown [facility] 08-20-2023 Evaluation note* Encounter Date Diagnosis Assessment Notes Treatment Notes Treatment Clinical Notes Jan, Lymph node enlargement (ICD-10 - R59.9) Go to the ER if you are developing stiffness in your neck or difficulty swallowing. Take medicine as prescribed. Push fluids. Follow up with pcp and dentist as prescribed. 17 y/o male with history of schizophrenia, who was here last week for sore throat/neck pain, is here today due to still having neck pain. He was treated with amoxicillin and medrol dose pack. He says his sore throat improved, but still having neck soreness. Patient is a poor historian, but states he has had neck soreness for 6 months. No evidence of ludwigs angina, LICENSED OCCUPATIONAL THERAPY ASSISTANT, retropharyngeal abscess, or neoplasm, as he does not have any swelling or erythema in the submental region, does not have any trismus, uvular deviation, difficulty swallowing, or weight loss. However, i do think that he needs to follow up with and establish care with pcp. Pt requests another steroid as, naproxen, ibuprofen, and aspirin does not help. I advise him of risks vs benefits of corticosteroids. He understands and would like another course of steroids. I don't think this is an unreasonable request and will order him a medrol dose pack and cyclobenzaprine. Given strict return precautions. [facility] Other 08-13-2023 Evaluation note* Encounter Date Diagnosis Assessment Notes Treatment Notes Treatment Clinical Notes Jan, Sore throat (ICD-10 - J02.9) Advised patient that rapid COVID and rapid Strep test was negative today in office, however, will treat for strep today based on physical exam. Will treat with antibiotic, reviewed allergies and recent antibiotic use. Instructed to take antibiotic and steroid as prescribed, with food, complete entire course even if feeling better. Supportive care as directed. Push fluids and rest, Tylenol as needed for fever or discomfort. Patient's symptoms should improve in the next 48 hours, eval by PCP or UC if symptoms have not improved with treatment. Discussed in depth warning symptoms that require immediate eval. Change out tooth brush after being on antibiotic for 2-3 days. Patient verbalizes understanding and is agreeable to treatment plan. Jan, Sinus pressure (ICD-10 - J34.89) [facility] Other 07-01-2023 History general Narrative - Reported* Type Description Date Surgical History wisdom teeth removal 12/2022 [facility] Other 04-29-2023 Consult note Author Wai Alfonso [facility] October 23, 2022 10:23am Note Date/Time October 23, 2022 10: 06am [facility] [address] [place] [address] Cardiology Consult Note Signed Patient: Cameron Teresa MR#: [id number] : 2005 Acct:[id number] Age/Sex: 17 / M Adm Date: 3 Loc: Room: [address] [place] [address] Type: ADM IN Attending Dr: Saqib Brantley DO Copies to: Saqib Brantley, NO FAMILY PHYSICIAN Wai Alfonso MD~ Cardiology HPI History of Present Illness Consult Date: 10/23/22 Reason for Consult: I been asked by the patient's primary medicine service to see Cameron in consultation for opinion and recommendations regarding ST abnormalities on ECG prior to transfer from ICU to [facility] for treatment of depression. HPI: Mr. Teresa is a 17 year old male with no known prior cardiac history but a history of depression (patient's last suicide attempt was at age 14) who was admitted to the ICU from [facility] emergency department yesterday after he presented relating suicidal ideation. The patient states that this past week his antidepressant medical regimen was adjusted by changing Effexor to Cymbalta. He states shortly thereafter he became very low. He didmake a suicidal gesture by taking approximately 20 tablets of venlafaxine and 20tablets of Effexor. He was found by family and brought immediately to the emergency department here [facility] for evaluation and treatment. From a cardiac standpoint, Cameron denies any current or recent cardiac symptomatology. He denies any recent chest pain shortness of breath nausea vomiting diaphoresis lightheadedness dizziness presyncope or syncope. He statesthere is no family history of heart disease nor family history of sudden cardiacdeath that he is aware of. He states he is an active person but does not regularly exercise. He denies any illicit drug use or the introduction of any new nutritional supplements of late. Initial EKG in the emergency department showed a sinus tachycardia showed J- point elevation in the anterior leads in a pattern consistent with early repolarization. Serial ECGs showed resolution of the sinus tachycardia and 1 tracing with some exaggerated J-point elevation in the anterior leads. QTc has not been prolonged. Baseline QTc is 417 ms. QTc on this morning's ECG is 375 ms. With the one ECG showing exaggerated J-point elevation the patient's primary hospitalist service was contacted. The patient was not seen or evaluated directly, rather I am now consulted for further cardiac evaluation andmanagement, and for cardiac/medical risk assessment/stratification prior to transfer to [facility] for further inpatient treatment of the patient's depression andsuicidal ideation. Review of Systems Review of Systems All other systems reviewed & are negative unless noted below or in HPI PMFSH Vaccinated for COVID-19?: Yes Medical History (Updated 10/23/22 @ 10:21 by Wai Alfonso MD) Anxiety Depression PTSD (post-traumatic stress disorder) Substance abuse Suicide attempt Surgical History No pertinent past surgical history Family History (Updated 10/22/22 @ 02:15 by Zara Westbrook RN) Grandparent HTN (hypertension) Cancer Mother Depression Anxiety Borderline personality disorder Social History Smoking Status: Current every day smoker Tobacco Type: cigarettes and smokeless tobacco Substance Use Type: Opiates, Amphetamines and Methamphetamine Substance Abuse Comment: living in a sober home and clean for 2 months, before that used everything Social History Comments: lives in a sober house Meds Medications and Allergies Allergies No Known Allergies Allergy (Verified 10/13/22 15:34) Home Medications duloxetine 20 mg capsule,delayed release 20 mg PO DAILY 10/21/22 [History Confirmed 10/21/22] acetaminophen 325 mg tablet (Tylenol) 325 mg PO Q65H PRN Pain 10/22/22 [History Confirmed 10/22/22] naproxen 500 mg tablet 500 mg PO BID PRN Pain 10/22/22 [History Confirmed 10/22/22] Exam Physical Exam Vital Signs: Temp Pulse Resp BP Pulse Ox O2 Del Method 98.4 F 83 19 132/63 98 Room Air 10/23/22 09:00 10/23/22 09:35 10/23/22 09:00 10/23/22 09:35 10/23/22 09:00 10/23/22 09:00 Const General: cooperative, healthy appearing, comfortable and no acute distress Nutritional Appearance: thin Orientation: alert, awake and oriented x3 HEENT Head: normal to inspection, normocephalic and atraumatic Face and sinus: face symmetric Mouth: moist mucous membranes Teeth and gingiva: dentition normal Eyes Conjunctivae: conjunctivae normal Sclera: sclerae normal Pupils: PERRL and accommodation normal EOM: EOM intact bilaterally Direct ophthalmoscopy: no photophobia Neck Neck: no lymphadenopathy and supple Neck mass: No Thyroid: thyroid normal Carotids: normal carotid upstroke Lymphatic: no lymphadenopathy noted Chest Chest palpation & inspection: normal inspection of the chest Resp Effort & Inspection: normal respiratory effort, able to speak in complete sentences and symmetric chest movement Auscultation: clear to auscultation bilaterally Cardio Jugular venous pressure: no JVD Palpation: normal PMI Rate: regular rate Rhythm: regular rhythm Heart Sounds: S1 normal and S2 normal Pulses: radial pulses present, posterior tibial pulses present and dorsalis pedis present GI Palpation: soft and no hepatosplenomegaly Auscultation: normal bowel sounds Skin General: no rashes or lesions noted Trauma: no lacerations or abrasions Wounds: no wounds Neuro General: patient alert, patient awake, patient oriented x3, moves all extremities and no focal motor deficits Cranial Nerves: CN's II-XII intact bilaterally Cognition: normal cognition Speech: speech normal Motor: muscle tone normal throughout Sensory Exam: no sensory deficits noted Extrem General: normal to inspection, full ROM and no clubbing, cyanosis or edema Psych Appearance: grossly normal Mental Status: mental status grossly normal Mood: congruent mood Affect: normal affect Speech and Movement: speech and movement normal Attitude: cooperative Thought Process: normal Thought Content: normal Insight: insight good Judgment: judgment good MEGHANA Risk Score MEGHANA Risk Score Predictor Presentation: ST Deviation >/=0.05mV Score Risk Score (0-7): 1 Results Labs 10/22/22 04:32 10/22/22 04:32 Lab results: Intake and Output 10/22/22 10/23/22 10/23/22 23:59 07:59 15:59 Intake Total 800 / 4550 480 / 480 Balance 800 / 4550 480 / 480 Intake: Oral 800 / 2550 480 / 480 Other: # Unmeasured Voids 2 1 Weight 79.8 kg Patient Weight 04/29/23 23:59 Weight 79.8 kg EKG Interpretations EKG Attestation EKG: I reviewed this ECG and interpreted as documented below: EKG results cardiology: no acute changes Dysrhythmias Sinus rhythms and dysrhythmias: sinus rhythm Blocks, axis, hypertrophy, ST abn Repolarization changes or abnormalities: early repolarization (normal variant) CT, pacemaker, normal Normal tracing: no change compared to previous tracing A&P - Cardiology (1) Abnormal electrocardiogram finding: Assessment/Problem Details: ST abnormalities on resting electrocardiogram likely represent early repolarization which is a normal variant in a 17-year-old fit male. The 1 ECG tracing where this is exaggerated is likely secondary to repolarization effects from recent attempted overdose with psychotropic medications. I have no clinical suspicion of an underlying myocardial ischemic process. Low risk from a cardiac standpoint. Plan: No cardiac specific therapy is recommended The patient is deemed low risk for adverse cardiac events and should transfer to S. as deemed appropriate by his psychiatric caregiver for ongoing treatment ofmajor depressive disorder with suicidal ideation. Code(s): R94.31 - Abnormal electrocardiogram [ECG] [EKG] Plan Thank you very much for this kind consultation and for allowing me to participate in the care of this very pleasant young man Documented By: Wai Alfonso MD 10/23/22 1005 Signed By: <Electronically signed by Wai Alfonso MD> 10/23/22 1023 [facility] Work Phone: 1(259) 522-299404-28-2023 Progress note Author Saqib Brantley [facility] October 22, 2022 6:28pm Note Date/Time October 22, 2022 6:2 9pm [facility] [address] [place] [address] Hospitalist Progress Note Signed Patient: Cameron Teresa MR#: [id number] : 2005 Acct:[id number] Age/Sex: 17 / M Adm Date: 3 Loc: Room: 6N4414-4 Type: ADM IN Attending Dr: Saqib Brantley DO Copies to: ~ Date of Service: 10/22/2022 Subjective Subjective Narrative: Patient was seen and examined at the bedside. No acute events overnight. Remains in the intensive care unit on suicide precautions. Physical Examination: GENERAL APPEARANCE: Alert, up in bed AAOx3 HEENT: NCAT, MMM NECK: Neck soft w/o masses, no JVD CARDIAC: Normal S1 and S2. No S3, S4 or murmurs. LUNGS: Clear to auscultation bilaterally. no wheeze/rhonchi/rales ABDOMEN: Positive bowel sounds. Soft, nontender. No guarding or signs of an acute abdomen MUSCULOSKELETAL: No joint erythema or tenderness. EXTREMITIES: No clubbing, cyanosis or edema PSYCHIATRIC: Depressed mood and affect Assessment and plan: 1. Overdose of SNRI/SSRI medication Patient will require continuous telemetry monitoring. His presenting hypertension appears to be resolving. This was likely medication side effect ofOD, a result of presenting stress but also hyperadrenergic tone given the SNRI ingestion. We will continue monitoring on telemetry. Appreciate poison controlrecommendations. Cruciate psychiatry recommendations. Likely oneself tomorrow suicide precautions. He will require continuous monitoring and serial labs as time to flush out this medication is quite prolonged given the high dose ingestion. Will provide IV fluids as well to assist in this process. 2. Suicidal ideation Consult to psychiatry. Appreciate recommendations. Likely 1 S. tomorrow. Disposition: Patient is admitted for continuous monitoring of vital signs and telemetry in the intensive care unit. He needs to remain on suicidal precautions as he is expressing suicidal ideation and intent. Time to washout of high-dose ingestion of the aforementioned medications is undoubtedly a prolonged period that will surpass greater than 2 midnights. Considering these factors he is thus admitted as an inpatient for a stay that will surpass better than 2 midnights. Exam Physical Exam Vital Signs: Temp Pulse Resp BP Pulse Ox O2 Del Method 98.3 F 73 20 130/62 97 Room Air 10/22/22 12:00 10/22/22 17:00 10/22/22 17:00 10/22/22 12:00 10/22/22 12:00 10/22/22 17:00 Objective Lab Results 10/22/22 04:32 10/22/22 04:32 Meds Allergies and Active Meds Allergies No Known Allergies Allergy (Verified 10/13/22 15:34) Active Meds: Active Medications Generic Name Dose Route Start Last Admin Trade Name Freq PRN Reason Stop Dose Admin Acetaminophen 650 mg 10/21/22 23:11 10/22/22 16:47 Acetaminophen 325 Mg Tablet PO 10/21/23 23:10 650 mg Q4H PRN Administration Pain Scale 1 - 5 Sodium Chloride 1,000 mls @ 125 mls/hr 10/21/22 23:00 10/22/22 15:36 0.9% Sodium Chloride 1,000 Ml IV 10/21/23 22:59 125 mls/hr .Q8H KOMAL Administration Melatonin 10 mg 10/21/22 23:30 10/21/22 23:22 Melatonin 5 Mg Tablet PO 10/21/23 23:29 10 mg QHS KOMAL Administration Nicotine 1 each 10/21/22 23:15 10/22/22 09:46 Nicotine Patch 21 Mg/24hr 1 Each Patch.Td24 TRANSDERML 12/01/22 09:01 1 each DAILY KOMAL Administration Ondansetron HCl 4 mg 10/21/22 22:50 10/22/22 07:20 Ondansetron 4 Mg/2 Ml Vial IV-PUSH 10/21/23 22:49 4 mg Q4H PRN Administration Nausea And Vomiting Sodium Chloride 0 ml 10/21/22 18:15 10/21/22 23:23 Sodium Chloride 0.9 % 10 Ml Syringe IV-PUSH 10/21/23 18:14 10 ml PRN PRN Administration Flush Documented By: Saqib Brantley DO 10/22/22 18 26 Signed By: <Electronically signed by Saqib Brantley DO> 10/22/22 1828 [facility] Work Phone: 1(443) 315-973004-28-2023 Consult note Author Steve linares [facility] October 22, 2022 10:51am Note Date/Time October 22, 2022 10: 51am [facility] [address] [place] [address] Psychiatry Consult Note Signed Patient: Cameron Teresa MR#: [id number] : 2005 Acct:[id number] Age/Sex: 17 / M Adm Date: 3 Loc: Room: [address] [place] [address] Type : ADM IN Attending Dr: Saqib Brantley DO Copies to: MD Saqib Reynolds DO NO FAMILY PHYSICIAN~ HPI Consult Date: 10/22/22 Requesting Physician: Saqib Brantley DO Primary Care Provider: NO FAMILY PHYSICIAN Consult Narrative HPI: Mr. Teresa is a 17 year old male with a history of depression and anxiety who presents for a psychiatric consult due to concerns of depression and anxiety.? He presented to the emergency department after a reported suicide attempt.? He admits to taking approximately 20 tablets of duloxetine 20 mg in approximately 20 tablets of venlafaxine extended release 75 mg.? Reports he had not attempted suicide since age 14 up until now. At the time of the interview, he reports feeling depressed. He has been going through multiple psychosocial stressors. He said he was being prescribed Effexorand switched abruptly to Cymbalta. He had tried several antidepressants in the past including Lexapro, Prozac and Zoloft but they were not effective. He said Effexor was helping with his mood that was starting to having some muscle spasmsand irritability. He said that the muscle spasms continued after stopping Effexor and now he realizes it is probably not a medication side effect. Reports a longstanding history using opiates, benzos and methamphetamine. He has been sober since last July. He has been following up with the psychiatric nurse practitioner at [facility] and was staying in sober living. He said he was supposed to start a job at [employer] today and was working 2 years from [employer]. He reports previous psychiatric hospitalization at [facility] at the age of 14 after a suicide attempt. He denies symptoms suggestive of ning, psychosis or agitation. He denied current illicit drug use. Mental Status: mental status grossly normal Mood: depressed mood Affect: constricted affect Speech and Movement: speech and movement normal and speech clear Attitude: cooperative Thought Process: normal Thought Content: Denied hallucinations, no homicidality and positive suicidality Insight: limited Judgment: limited PMFSH Vaccinated for COVID-19?: Yes Medical History (Updated 10/22/22 @ 10:51 by Chandler Flood MD) Anxiety Depression PTSD (post-traumatic stress disorder) Substance abuse Suicide attempt Surgical History No pertinent past surgical history Family History (Updated 10/22/22 @ 02:15 by Zara Westbrook RN) Grandparent HTN (hypertension) Cancer Mother Depression Anxiety Borderline personality disorder Social History Smoking Status: Current every day smoker Tobacco Type: cigarettes and smokeless tobacco Substance Use Type: Opiates, Amphetamines and Methamphetamine Substance Abuse Comment: living in a sober home and clean for 2 months, before that used everything Social History Comments: lives in a sober house Meds Medications and Allergies Allergies No Known Allergies Allergy (Verified 10/13/22 15:34) Home Medications duloxetine 20 mg capsule,delayed release 20 mg PO DAILY 10/21/22 [History Confirmed 10/21/22] acetaminophen 325 mg tablet (Tylenol) 325 mg PO Q65H PRN Pain 10/22/22 [History Confirmed 10/22/22] naproxen 500 mg tablet 500 mg PO BID PRN Pain 10/22/22 [History Confirmed 10/22/22] Exam Physical Exam Vital Signs: Temp Pulse Resp BP Pulse Ox O2 Del Method 98.3 F 86 19 138/75 96 Room Air 10/22/22 08:00 10/22/22 08:00 10/22/22 08:00 10/22/22 08:00 10/22/22 08:00 10/22/22 08:00 Results Labs 10/22/22 04:32 10/22/22 04:32 Psychiatry Labs: 10/21/22 10/21/22 10/21/22 18:16 18:16 18:34 RBC 5.59 Hgb 16.5 Hct 48.4 MCV 86.6 MCH 29.5 MCHC 34.1 RDW 13.7 Plt Count 214 MPV 9.4 Sodium 137 Potassium 3.5 Chloride 103 Carbon Dioxide 20.9 L Anion Gap 16.6 H BUN 14 Creatinine 1.15 Calcium 9.9 Total Bilirubin 0.4 AST 19 ALT 19 Alkaline Phosphatase 82 Total Protein 8.0 Albumin 4.9 Urine Color Yellow Urine Appearance Clear Urine pH 8.5 Ur Specific [place] 1.023 Urine Protein Trace H Urine Glucose (UA) Normal Urine Ketones 1+ H Urine Occult Blood Negative Urine Nitrite Negative Ur Leukocyte Esterase Negative Urine RBC 0-1 Urine WBC None seen 10/22/22 10/22/22 04:32 04:32 RBC 5.32 Hgb 15.7 Hct 46.1 MCV 86.7 MCH 29.5 MCHC 34.0 RDW 13.7 Plt Count 174 MPV 9.3 Sodium 138 Potassium 3.9 Chloride 107 Carbon Dioxide 24.7 Anion Gap 10.2 BUN 16 Creatinine 1.00 Calcium 8.7 Total Bilirubin 0.6 AST 16 ALT 17 Alkaline Phosphatase 69 Total Protein 6.8 Albumin 4.4 Urine Color Urine Appearance Urine pH Ur Specific [place] Urine Protein Urine Glucose (UA) Urine Ketones Urine Occult Blood Urine Nitrite Ur Leukocyte Esterase Urine RBC Urine WBC Assessment/Plan (1) Medication side effects: Code(s): T88.7XXA - Unspecified adverse effect of drug or medicament, initial encounter Status: Acute (2) Suicide attempt by multiple drug overdose: Code(s): T50.912A - Poisoning by multiple unspecified drugs, medicaments and biological substances, intentional self-harm, initial encounter Status: Acute (3) Major depressive disorder, recurrent, moderate: Code(s): F33.1 - Major depressive disorder, recurrent, moderate Status: Acute Plan Admit to 1S for management of depression and to ensure safety of self due to suicide attempt once medically clear. We will hold psychiatric medications at this time and will discuss with patient medication choices at 1S Monitor suicidal behaviors for safety of self Recommend attending groups and psychoeducation for building coping skills. Risks, benefits and indications of medications were discussed with the patient. The patient verbalized understanding. No abnormal movements noted on exam. AIMS is Zero. Documented By: Steve Flood MD 3 1047 Signed By: <Electronically signed by Steve Flood MD> 10/22/22 1051 [facility] Work Phone: 1(316) 244-238104-27-2023 History and physical note Author Saqib Brantley [facility] October 21, 2022 8:50pm Note Date/Time October 21, 2022 8:4 4pm [facility] [address] [place] [address] Hospitalist H&P Signed Patient: Cameron Teresa MR#: [id number] : 2005 Acct:[id number] Age/Sex: 17 / M Adm Date: 3 Loc: Room: [address] [place] [address] Type: ADM IN Attending Dr: Saqib Brantley DO Copies to: Saqib Brantley DO NO FAMILY PHYSICIAN~ HPI DATE OF EXAMINATION: 10/21/22 CHIEF COMPLAINT: Overdose HISTORY OF PRESENT ILLNESS: This patient is a 17-year-old male with a history of depression. He presents tot emergency department after a reported suicide attempt. He admits to taking approximately 20 tablets of duloxetine 20 mg in approximately 20 tablets of venlafaxine extended release 75 mg. Reports he had not attempted suicide since age 14 up until now. His work-up in the ER revealed relatively stable vital signs with a temperature of 97.9 ?F, heart rate of 93/min, respirations 16/min, blood pressure hypertensive at 160/80, 100% oxygen saturation on room air. His work-up reveals leukocytosis at 11.2, predominantly neutrophilic. Chemistries reveal a borderline anion gap metabolic acidosis with a bicarbonate level of 20.9. Mildly low magnesium at 1.8. LFTs and renal function within normal limits. Urinalysis shows trace protein and 1+ ketones. Salicylates undetectable,trace acetaminophen noted on tox screen, no other drugs noted on UDS. He was subsequently admitted to the intensive care unit for further management after Poison control was contacted in the ER. Physical Examination: GENERAL APPEARANCE: Alert, up in bed AAOx3 HEENT: NCAT, MMM NECK: Neck soft w/o masses, no JVD CARDIAC: Normal S1 and S2. No S3, S4 or murmurs. LUNGS: Clear to auscultation bilaterally. no wheeze/rhonchi/rales ABDOMEN: Positive bowel sounds. Soft, nontender. No guarding or signs of an acute abdomen MUSCULOSKELETAL: No joint erythema or tenderness. EXTREMITIES: No clubbing, cyanosis or edema PSYCHIATRIC: Depressed mood and affect Assessment and plan: 1. Overdose of SNRI/SSRI medication Patient will require continuous telemetry monitoring. He is mildly hypertensiveon presentation likely a result of presenting stress but also hyperadrenergic tone given the SNRI ingestion. We will continue monitoring on telemetry. Appreciate poison control recommendations. We will consult psychiatry for further management. Suicide precautions. He will require continuous monitoringand serial labs as time to flush out this medication is quite prolonged given the high dose ingestion. Will provide IV fluids as well to assist in this process. 2. Suicidal ideation Consult to psychiatry. Appreciate recommendations. Patient will remain inpatient until he can be assessed by psychiatry. Disposition: Patient is admitted for continuous monitoring of vital signs and telemetry in the intensive care unit. He needs to remain on suicidal precautions as he is expressing suicidal ideation and intent. Time to washout of high-dose ingestion of the aforementioned medications is undoubtedly a prolonged period that will surpass greater than 2 midnights. Considering these factors he is thus admitted as an inpatient for a stay that will surpass better than 2 midnights. PMFSH Vaccinated for COVID-19?: Yes Medical History Anxiety Depression PTSD (post-traumatic stress disorder) Substance abuse Surgical History No pertinent past surgical history Social History Smoking Status: Current every day smoker Substance Use Type: Opiates, Amphetamines and Methamphetamine Substance Abuse Comment: living in a sober home and clean for 2 months, before that used everything Meds Medications and Allergies Allergies No Known Allergies Allergy (Verified 10/13/22 15:34) Home Medications ofloxacin 0.3 % ear drops 5 drp Ear-Right BID 7 days #10 mL 10/13/22 [Rx] Exam Physical Exam Vital Signs: Temp Pulse Resp BP Pulse Ox O2 Del Method 97.9 F 82 16 141/64 H 100 Room Air 10/21/22 18:10 10/21/22 20:26 10/21/22 20:26 10/21/22 20:26 10/21/22 20:26 10/21/22 20:26 Results Lab Results Labs: Laboratory Last Values Corrected WBC 11.2 X10E3/uL (4.1-10.5) H 10/21/22 18:16 Uncorrected WBC Count 11.2 x10E3/uL (4.1-10.5) H 10/21/22 18:16 RBC 5.59 X10E6/uL (3.90-5.60) 10/21/22 18:16 Hgb 16.5 g/dL (13.0-17.0) 10/21/22 18:16 Hct 48.4 % (38.8-50.0) 10/21/22 18:16 MCV 86.6 fl (83.5-101) 10/21/22 18:16 MCH 29.5 pg (27.5-35.2) 10/21/22 18:16 MCHC 34.1 g/dL (32.5-35.6) 10/21/22 18:16 RDW 13.7 % (12.0-14.8) 10/21/22 18:16 Plt Count 214 x10E3/uL (150-450) 10/21/22 18:16 MPV 9.4 fl (6.6-10.1) 10/21/22 18:16 Neut % (Auto) 79.2 % (.) 10/21/22 18:16 Lymph % (Auto) 14.0 % (.) 10/21/22 18:16 Emery % (Auto) 6.1 % (.) 10/21/22 18:16 Eos % (Auto) 0.4 % (.) 10/21/22 18:16 Baso % (Auto) 0.3 % (.) 10/21/22 18:16 Nucleat RBC Rel Count 0.1 /100 WBC (0-0.5) 10/21/22 18:16 Neut # (Auto) 8.9 x10E3/uL (1.8-7.7) H 10/21/22 18:16 Lymph # (Auto) 1.6 x10E3/uL (1.00-4.8) 10/21/22 18:16 Emery # (Auto) 0.7 x10E3/uL (0.0-0.8) 10/21/22 18:16 Eos # (Auto) 0.0 x10E3/uL (0.0-0.45) 10/21/22 18:16 Baso # (Auto) 0.0 x10E3/uL (0.0-0.2) 10/21/22 18:16 Monocyte Dist Width 17.66 % (0.00-20.00) 10/21/22 18:16 PHA Creatinine Clear 124.62 10/21/22 18:16 Sodium 137 mmol/L (136-145) 10/21/22 18:16 Potassium 3.5 mmol/L (3.5-5.1) 10/21/22 18:16 Chloride 103 mmol/L (98-107) 10/21/22 18:16 Carbon Dioxide 20.9 mmol/L (21.0-31.0) L 10/21/22 18:16 Anion Gap 16.6 mEq/L (6.0-15.0) H 10/21/22 18:16 BUN 14 mg/dL (7-25) 10/21/22 18:16 Creatinine 1.15 mg/dL (0.70-1.30) 10/21/22 18:16 Est GFR (CKD-EPI) > 60.0 mL/Min 10/21/22 18:16 Glucose 115 mg/dL (70-100) H 10/21/22 18:16 POC Glucose 105 mg/dl 10/21/22 18:28 POC Glucose Comment Glu2: cleaned meter 10/21/22 18:28 Calcium 9.9 mg/dL (8.6-10.3) 10/21/22 18:16 Magnesium 1.8 mg/dL (1.9-2.7) L 10/21/22 18:16 Total Bilirubin 0.4 mg/dl (0.3-1.0) 10/21/22 18:16 AST 19 U/L (13-39) 10/21/22 18:16 ALT 19 U/L (7-52) 10/21/22 18:16 Alkaline Phosphatase 82 U/L (34-104) 10/21/22 18:16 Total Protein 8.0 gm/dL (6.4-8.9) 10/21/22 18:16 Albumin 4.9 gm/dL (3.5-5.7) 10/21/22 18:16 Globulin 3.1 gm/dL 10/21/22 18:16 Albumin/Globulin Ratio 1.6 10/21/22 18:16 Urine Color Yellow (Yellow) 10/21/22 18:34 Urine Appearance Clear (Clear) 10/21/22 18:34 Urine pH 8.5 (5.0-9.0) 10/21/22 18:34 Ur Specific [place] 1.023 (1.001-1.030) 10/21/22 18:34 Urine Protein Trace mg/dL (Negative) H 10/21/22 18:34 Urine Glucose (UA) Normal mg/dL (Normal) 10/21/22 18:34 Urine Ketones 1+ (Negative) H 10/21/22 18:34 Urine Occult Blood Negative (Negative) 10/21/22 18:34 Urine Nitrite Negative (Negative) 10/21/22 18:34 Urine Bilirubin Negative (Negative) 10/21/22 18:34 Urine Urobilinogen Normal mg/dL (Normal) 10/21/22 18:34 Ur Leukocyte Esterase Negative (Negative) 10/21/22 18:34 Urine RBC 0-1 /HPF (0-4) 10/21/22 18:34 Urine WBC None seen /HPF (0-4) 10/21/22 18:34 Ur Squamous Epith Cells None seen /HPF (0-2) 10/21/22 18:34 Urine Bacteria None seen (None Seen) 10/21/22 18:34 Hyaline Casts None seen /LPF (0-8) 10/21/22 18:34 Salicylates < 1.5 mg/dL (15.0-30.0) L 10/21/22 18:16 Urine Opiates Screen Negative (Negative) 10/21/22 18:34 Acetaminophen 0.7 ug/mL (10.0-30.0) L 10/21/22 18:16 Ur Barbiturates Screen Negative (Negative) 10/21/22 18:34 Ur Phencyclidine Scrn Negative (Negative) 10/21/22 18:34 Ur Amphetamines Screen Negative (Negative) 10/21/22 18:34 U Benzodiazepines Scrn Negative (Negative) 10/21/22 18:34 Urine Cocaine Screen Negative (Negative) 10/21/22 18:34 U Marijuana (THC) Screen Negative (Negative) 10/21/22 18:34 Ethyl Alcohol < 10 mg/dL 10/21/22 18:16 % Ethyl Alcohol TNP 10/21/22 18:16 Documented By: Saqib Brantley DO 10/21/22 20 41 Signed By: <Electronically signed by Saqib Brantley DO> 10/21/222049 [facility] Work Phone: 1(587) 547-308504-27-2023 History and physical note Author Saqib Brantley [facility] October 21, 2022 8:50pm Note Date/Time October 21, 2022 8:4 4pm [facility] [address] [place] [address] Hospitalist H&P Signed Patient: Cameron Teresa MR#: [id number] : 2005 Acct:[id number] Age/Sex: 17 / M Adm Date: 3 Loc: 4C Room: 6N0111-7 Type: ADM IN Attending Dr: Saqib Brantley DO Copies to: Saqib Brantley, NO FAMILY PHYSICIAN~ HPI DATE OF EXAMINATION: 10/21/22 CHIEF COMPLAINT: Overdose HISTORY OF PRESENT ILLNESS: This patient is a 17-year-old male with a history of depression. He presents tot emergency department after a reported suicide attempt. He admits to taking approximately 20 tablets of duloxetine 20 mg in approximately 20 tablets of venlafaxine extended release 75 mg. Reports he had not attempted suicide since age 14 up until now. His work-up in the ER revealed relatively stable vital signs with a temperature of 97.9 ?F, heart rate of 93/min, respirations 16/min, blood pressure hypertensive at 160/80, 100% oxygen saturation on room air. His work-up reveals leukocytosis at 11.2, predominantly neutrophilic. Chemistries reveal a borderline anion gap metabolic acidosis with a bicarbonate level of 20.9. Mildly low magnesium at 1.8. LFTs and renal function within normal limits. Urinalysis shows trace protein and 1+ ketones. Salicylates undetectable,trace acetaminophen noted on tox screen, no other drugs noted on UDS. He was subsequently admitted to the intensive care unit for further management after Poison control was contacted in the ER. Physical Examination: GENERAL APPEARANCE: Alert, up in bed AAOx3 HEENT: NCAT, MMM NECK: Neck soft w/o masses, no JVD CARDIAC: Normal S1 and S2. No S3, S4 or murmurs. LUNGS: Clear to auscultation bilaterally. no wheeze/rhonchi/rales ABDOMEN: Positive bowel sounds. Soft, nontender. No guarding or signs of an acute abdomen MUSCULOSKELETAL: No joint erythema or tenderness. EXTREMITIES: No clubbing, cyanosis or edema PSYCHIATRIC: Depressed mood and affect Assessment and plan: 1. Overdose of SNRI/SSRI medication Patient will require continuous telemetry monitoring. He is mildly hypertensiveon presentation likely a result of presenting stress but also hyperadrenergic tone given the SNRI ingestion. We will continue monitoring on telemetry. Appreciate poison control recommendations. We will consult psychiatry for further management. Suicide precautions. He will require continuous monitoringand serial labs as time to flush out this medication is quite prolonged given the high dose ingestion. Will provide IV fluids as well to assist in this process. 2. Suicidal ideation Consult to psychiatry. Appreciate recommendations. Patient will remain inpatient until he can be assessed by psychiatry. Disposition: Patient is admitted for continuous monitoring of vital signs and telemetry in the intensive care unit. He needs to remain on suicidal precautions as he is expressing suicidal ideation and intent. Time to washout of high-dose ingestion of the aforementioned medications is undoubtedly a prolonged period that will surpass greater than 2 midnights. Considering these factors he is thus admitted as an inpatient for a stay that will surpass better than 2 midnights. PMFSH Vaccinated for COVID-19?: Yes Medical History Anxiety Depression PTSD (post-traumatic stress disorder) Substance abuse Surgical History No pertinent past surgical history Social History Smoking Status: Current every day smoker Substance Use Type: Opiates, Amphetamines and Methamphetamine Substance Abuse Comment: living in a sober home and clean for 2 months, before that used everything Meds Medications and Allergies Allergies No Known Allergies Allergy (Verified 10/13/22 15:34) Home Medications ofloxacin 0.3 % ear drops 5 drp Ear-Right BID 7 days #10 mL 10/13/22 [Rx] Exam Physical Exam Vital Signs: Temp Pulse Resp BP Pulse Ox O2 Del Method 97.9 F 82 16 141/64 H 100 Room Air 10/21/22 18:10 10/21/22 20:26 10/21/22 20:26 10/21/22 20:26 10/21/22 20:26 10/21/22 20:26 Results Lab Results Labs: Laboratory Last Values Corrected WBC 11.2 X10E3/uL (4.1-10.5) H 10/21/22 18:16 Uncorrected WBC Count 11.2 x10E3/uL (4.1-10.5) H 10/21/22 18:16 RBC 5.59 X10E6/uL (3.90-5.60) 10/21/22 18:16 Hgb 16.5 g/dL (13.0-17.0) 10/21/22 18:16 Hct 48.4 % (38.8-50.0) 10/21/22 18:16 MCV 86.6 fl (83.5-101) 10/21/22 18:16 MCH 29.5 pg (27.5-35.2) 10/21/22 18:16 MCHC 34.1 g/dL (32.5-35.6) 10/21/22 18:16 RDW 13.7 % (12.0-14.8) 10/21/22 18:16 Plt Count 214 x10E3/uL (150-450) 10/21/22 18:16 MPV 9.4 fl (6.6-10.1) 10/21/22 18:16 Neut % (Auto) 79.2 % (.) 10/21/22 18:16 Lymph % (Auto) 14.0 % (.) 10/21/22 18:16 Emery % (Auto) 6.1 % (.) 10/21/22 18:16 Eos % (Auto) 0.4 % (.) 10/21/22 18:16 Baso % (Auto) 0.3 % (.) 10/21/22 18:16 Nucleat RBC Rel Count 0.1 /100 WBC (0-0.5) 10/21/22 18:16 Neut # (Auto) 8.9 x10E3/uL (1.8-7.7) H 10/21/22 18:16 Lymph # (Auto) 1.6 x10E3/uL (1.00-4.8) 10/21/22 18:16 Emery # (Auto) 0.7 x10E3/uL (0.0-0.8) 10/21/22 18:16 Eos # (Auto) 0.0 x10E3/uL (0.0-0.45) 10/21/22 18:16 Baso # (Auto) 0.0 x10E3/uL (0.0-0.2) 10/21/22 18:16 Monocyte Dist Width 17.66 % (0.00-20.00) 10/21/22 18:16 PHA Creatinine Clear 124.62 10/21/22 18:16 Sodium 137 mmol/L (136-145) 10/21/22 18:16 Potassium 3.5 mmol/L (3.5-5.1) 10/21/22 18:16 Chloride 103 mmol/L (98-107) 10/21/22 18:16 Carbon Dioxide 20.9 mmol/L (21.0-31.0) L 10/21/22 18:16 Anion Gap 16.6 mEq/L (6.0-15.0) H 10/21/22 18:16 BUN 14 mg/dL (7-25) 10/21/22 18:16 Creatinine 1.15 mg/dL (0.70-1.30) 10/21/22 18:16 Est GFR (CKD-EPI) > 60.0 mL/Min 10/21/22 18:16 Glucose 115 mg/dL (70-100) H 10/21/22 18:16 POC Glucose 105 mg/dl 10/21/22 18:28 POC Glucose Comment Glu2: cleaned meter 10/21/22 18:28 Calcium 9.9 mg/dL (8.6-10.3) 10/21/22 18:16 Magnesium 1.8 mg/dL (1.9-2.7) L 10/21/22 18:16 Total Bilirubin 0.4 mg/dl (0.3-1.0) 10/21/22 18:16 AST 19 U/L (13-39) 10/21/22 18:16 ALT 19 U/L (7-52) 10/21/22 18:16 Alkaline Phosphatase 82 U/L (34-104) 10/21/22 18:16 Total Protein 8.0 gm/dL (6.4-8.9) 10/21/22 18:16 Albumin 4.9 gm/dL (3.5-5.7) 10/21/22 18:16 Globulin 3.1 gm/dL 10/21/22 18:16 Albumin/Globulin Ratio 1.6 10/21/22 18:16 Urine Color Yellow (Yellow) 10/21/22 18:34 Urine Appearance Clear (Clear) 10/21/22 18:34 Urine pH 8.5 (5.0-9.0) 10/21/22 18:34 Ur Specific [place] 1.023 (1.001-1.030) 10/21/22 18:34 Urine Protein Trace mg/dL (Negative) H 10/21/22 18:34 Urine Glucose (UA) Normal mg/dL (Normal) 10/21/22 18:34 Urine Ketones 1+ (Negative) H 10/21/22 18:34 Urine Occult Blood Negative (Negative) 10/21/22 18:34 Urine Nitrite Negative (Negative) 10/21/22 18:34 Urine Bilirubin Negative (Negative) 10/21/22 18:34 Urine Urobilinogen Normal mg/dL (Normal) 10/21/22 18:34 Ur Leukocyte Esterase Negative (Negative) 10/21/22 18:34 Urine RBC 0-1 /HPF (0-4) 10/21/22 18:34 Urine WBC None seen /HPF (0-4) 10/21/22 18:34 Ur Squamous Epith Cells None seen /HPF (0-2) 10/21/22 18:34 Urine Bacteria None seen (None Seen) 10/21/22 18:34 Hyaline Casts None seen /LPF (0-8) 10/21/22 18:34 Salicylates < 1.5 mg/dL (15.0-30.0) L 10/21/22 18:16 Urine Opiates Screen Negative (Negative) 10/21/22 18:34 Acetaminophen 0.7 ug/mL (10.0-30.0) L 10/21/22 18:16 Ur Barbiturates Screen Negative (Negative) 10/21/22 18:34 Ur Phencyclidine Scrn Negative (Negative) 10/21/22 18:34 Ur Amphetamines Screen Negative (Negative) 10/21/22 18:34 U Benzodiazepines Scrn Negative (Negative) 10/21/22 18:34 Urine Cocaine Screen Negative (Negative) 10/21/22 18:34 U Marijuana (THC) Screen Negative (Negative) 10/21/22 18:34 Ethyl Alcohol < 10 mg/dL 10/21/22 18:16 % Ethyl Alcohol TNP 10/21/22 18:16 Documented By: Saqib Brantley DO 10/21/22 20 41 Signed By: <Electronically signed by Saqib Brantley DO> 10/21/222049 [facility] Work Phone: [phone] Hospital Discharge instructions Patient Transfer Information from 08/02/2022 8:13 PM: * LOC : [facility] 10-30-2022 Hospital Discharge instructions ED Discharge Education Evaluation from 04/25/2022 5:59 PM: * Discharge Instruction : Patient/Significant Other Verbalized Understanding of Discharge Instructions,Reviewed Discharge Instructions with Patient/Significant Other * Educ Topic #1 : drug use * Barriers to Learning : No Barriers * Teaching Method : Audiovisual * Evaluation Method : Verbal Patient Transfer Information from 04/25/2022 3:47 PM: * LOC : [facility] Physician Follow-up Plan/Appointments from 04/25/2022 3:47 PM: * Patient stated Primary Care Provider : PCP, Other (PCP) ([facility]) - [facility] 03-01-2022 NoteHNO ID: [id number] Author: Aleksandra Ross MD Service: ? Author Type: Physician Type: Progress Notes Filed: 08/30/2021 8:58 PM Note Text: PEDIATRIC RHEUMATOLOGY FOLLOW UP PROGRESS NOTE PRIMARY CARE PHYSICIAN: Jaxson Starks DO It was my pleasure seeing Cameron for follow up in Pediatric Rheumatology clinic today. Cameron was accompanied by his mother to today's visit. History was obtained from Cameron. My final recommendations will be communicated back to Jaxson Starks DO and/or referring physician by way of shared medical record or letter via US mail. Chief complaint: follow up toe discoloration PROBLEM LIST: Toe discoloration bilaterally LAST VISIT: 07/28/21 HPI: 16 year old young man with bilateral toe discoloration here for follow up. Cameron stated that he thinks his toes are doing better but also reported that he has not been looking at them. They are sometimes sensitive when he gets up in the morning. He denied symptoms that are interfering with his sleep. They are no longer pruritic. He denied similar symptoms in his fingers. He denied infections since his last visit. He is fatigued. He has occasional abdominal pain. He denied other gastrointestinal symptoms. He is getting occasional headaches. REVIEW OF SYSTEMS: GENERAL: Fever - No Chills - No Night sweats - No Anorexia - No Weight loss - No Change in energy level - Yes Lymphadenopathy - No Infections since last visit: No HEAD, EYES: Dry eyes - No Eye pain - No Eye redness - No Eye sensitivity to light - No Visual loss - No EARS, NOSE, AND THROAT: Mouth ulcers - No Nasal ulcers - No Dry mouth - No Nosebleeds - No CARDIOVASCULAR: Chest pain - No Chest tightness- No Color changes in fingers or toes - No PULMONARY: Cough - No Shortness of breath - No Wheeze - No Hemoptysis - No Orthopnea - No GASTROINTESTINAL: Abdominal pain - Yes Nausea - No Vomiting - No Diarrhea - No Constipation - No Blood in stool - No Black stool - No Heartburn/Reflux - No Difficulty swallowing - No GENITOURINARY: Pain on urination - No Blood in urine - No Penile or vaginal ulcers - No ENDOCRINE: Abnormal menses - N/A Heat or cold intolerance - No MUSCULOSKELETAL: Joint pain - No Joint swelling - No Joint redness - No Joint warmth - No Morning stiffness - No Muscle aches - No Weakness - No SKIN: Facial rashes - No Rash - No Urticaria - No Nail pits - No Sensitivity to light - No Hair loss or thinning - No HEMATOLOGIC: Easy bruising or bleeding - No Petechiae - No NEUROLOGIC: Headache - Yes Numbness/tingling - No Abnormal movements - No Memory impairment - No Change in mental status/concentration - No PSYCHOLOGICAL: Depression - Yes Anxiety - Yes SLEEP: Sleep disturbance - No Non-restorative sleep - No Seasonal influenza vaccine - Yes Pneumococcal vaccine - Yes with last dose October 2004 All other systems reviewed and negative for complaint - Yes PAST MEDICAL HISTORY: PAST MEDICAL HISTORY Diagnosis Date - Depression FAMILY HISTORY: Reviewed and unchanged from last visit SOCIAL HISTORY: Reviewed and unchanged from last visit MEDICATIONS: venlafaxine ER (EFFEXOR XR) 150 mg 24 hr capsule Take 1 capsule by mouth once daily. With a 37.5 mg capsule hydrOXYzine pamoate (VISTARIL) 50 mg capsule TAKE 2 CAPSULES BY MOUTH TWICE DAILY NEEDED melatonin 5 mg tablet Take 2 tablets by mouth daily at bedtime. venlafaxine ER (EFFEXOR XR) 37.5 mg 24 hr capsule Take 1 capsule by mouth daily with breakfast. ALL: ALLERGIES No Known Allergies IMMUNIZATIONS: UTD PHYSICAL EXAMINATION: Vital Signs: BP 120/68 (BP Site: Left Arm, BP Position: Sitting, BP Cuff Size: Regular Adult) Pulse 87 Temp 37.3 ?C (99.2 ?F) (Temporal) Resp 18 Ht 196.5 cm (6' 5.36 ) Wt 84.6 kg (186 lb 8 oz) SpO2 98% BMI 21.91 kg/m? Blood pressure percentiles are not available for patients who are 18 years or older. BMI: 50 %ile (Z= 0.01) based on CDC (Boys, 2-20 Years) BMI-for-age based on BMI available as of 08/25/2021. BSA: Body surface area is 2.15 meters squared. General: Well appearing, alert and pleasant young man in no acute distress. Skin: Scabbed lesions with mild erythema on dorsal toes bilaterally without drainage or evidence of infection. Lesions non-tender. Tip of left small toe with dark erythema concerning for prior ischemia. No rash. No Raynaud's. HEENT: Normocephalic, atraumatic. EOMI. PERRL. Ears normal in size, shape, and position. No saddle nose. No nasal or oral ulcers. Oropharynx clear without erythema or tonsillar hypertrophy. Neck: Supple with full range of motion. Lymph: No cervical lymphadenopathy. Lungs: Clear to auscultation bilaterally without wheezes, rhonchi, crackles. Symmetric aeration. CV: Regular rate and rhythm, normal S1, S2. No murmurs, rubs, and gallops. Dorsalis pedis and radial pulses 2+ (more content not included)... [facility]02-01-2022 NoteHNO ID: [id number] Author: Aleksandra Ross MD Service: ? Author Type: Physician Type: Progress Notes Filed: 08/02/2021 9:41 PM Note Text: INITIAL OUTPATIENT VISIT PEDIATRIC RHEUMATOLOGY SERVICE DATE: 07/28/2021 REFERRING PHYSICIAN: Jaxson Starks [address] [place] [address] PRIMARY CARE PHYSICIAN: Jaxson Starks DO ACCOMPANIED BY: mother. CHIEF COMPLAINT: Patient presents with: Foot Pain : BILATERAL Foot - ongoing for about 1 month Joint Pain : BLATERALToe Derm Problem: Skin Discoloration - toes/foot History was obtained from: mother, patient and EMR Consultation requested by Dr. Bertram Starks for an opinion regarding toe discoloration and pain and my final recommendations will be communicated back to the requesting physician by way of shared medical record or letter via [place] mail. HPI: 15 year old boy referred by Dr. Bertram Starks for evaluation of toe discoloration and pain. Cameron and his mother reported that the symptoms have been ongoing for 2 months. The started acutely with swelling in his toes. He stated that his toes are sometimes slightly itchy and are red. The symptoms are greatest when he wakes up in the morning. He had COVID-19 6 months ago with cough, sore throat, headache and loss of taste and smell. He denied more recent known episodes of COVID-19. He denied episodes in which his feet were wet and cold. He has not noted color changes in his fingers or toes with the cold. He denied pain or swelling in other joints. He has not noted morning stiffness. His energy has been up and down. He has anxiety and depression. He has constipation and has hard stools with blood with every bowel movement. He denied abdominal pain or other gastrointestinal symptoms. He has occasional headaches. He denied recent infections. He is vaccinated for Influenza and COVID-19. REVIEW OF SYSTEMS: GENERAL: Fever - No Chills - No Night sweats - No Anorexia - No Weight loss - No Change in energy level - Yes Lymphadenopathy - No HEAD, EYES: Dry eyes - No Eye pain - No Eye redness - No Eye sensitivity to light - No Visual loss - No EARS, NOSE, AND THROAT: Mouth ulcers - No Nasal ulcers - No Dry mouth - No Nosebleeds - No CARDIOVASCULAR: Chest pain - No Chest tightness- No Color changes in fingers or toes - Toes red as per HPI but not related to the cold EXTREMITY: Edema (swelling) - No Intermittent claudication (pain with walking) - No PULMONARY: Cough - No Shortness of breath - No Wheeze - No Hemoptysis - No Orthopnea - No GASTROINTESTINAL: Abdominal pain - No Nausea - No Vomiting - No Diarrhea - No Constipation - Yes Blood in stool - Yes Black stool - No Heartburn/Reflux - No Difficulty swallowing - No GENITOURINARY: Pain on urination - No Blood in urine - No Penile or vaginal ulcers - No ENDOCRINE: Abnormal menses - N/A Heat or cold intolerance - No MUSCULOSKELETAL: Joint pain - Yes Joint swelling - Yes Joint redness - Yes Joint warmth - No Morning stiffness - No Muscle aches - No Weakness - No SKIN: Facial rashes - No Rash - No Urticaria - No Nail pits - No Sensitivity to light - No Hair loss or thinning - No HEMATOLOGIC: Easy bruising or bleeding - No Petechiae - No NEUROLOGIC: Headache - Yes Numbness/Tingling - No Abnormal movements - No Memory impairment - No Change in mental status/concentration - No PSYCHOLOGICAL: Depression - Yes Anxiety - Yes SLEEP: Sleep disturbance - No Non-restorative sleep - No All other systems reviewed and negative for complaint - Yes PAST MEDICAL HISTORY: PAST MEDICAL HISTORY Diagnosis Date - Depression FAMILY HISTORY: FAMILY HISTORY Problem Relation Age of Onset - No Known Problems Mother - No Known Problems Father - No Known Problems Brother - other (Waldenstrom's) Maternal Grandmother - Cancer Paternal Grandmother - No Known Problems Half-brother - No Known Problems Half-brother SOCIAL HISTORY: Social History Tobacco Use - Smoking status: Never Smoker - Smokeless tobacco: Never Used Vaping Use - Vaping Use: Former - Substances: Nicotine Substance Use Topics - Alcohol use: Not Currently - Drug use: Not Currently Types: Amphetamines, Crystal Meth Comment: 5 weeks ago Lives with his mother 10 yo brother and maternal grandparents. Is a senior in high school. Has two half siblings ages 9 and 5 who live with his father. CURRENT MEDICATIONS: hydrOXYzine pamoate (VISTARIL) 50 mg capsule TAKE 2 CAPSULES BY MOUTH TWICE DAILY NEEDED venlafaxine ER (EFFEXOR XR) 75 mg 24 hr capsule Take 75 mg by mouth every morning. With 37.5 mg tablet melatonin 5 mg tablet Take 2 tablets by mouth daily at bedtime. venlafaxine ER (EFFEXOR XR) 37.5 mg 24 hr capsule Take 1 capsule by mouth daily with breakfast. ALLERGIES: ALLERGIES No Known Allergies IMMUNIZATIONS: UTD PRIOR STUDIES: I have perso (more content not included)...[facility]01-21-2022 NoteHNO ID: [id number] Author: Jaxson Starks, DO Service: ? Author Type: Physician Type: Progress Notes Filed: 07/17/2021 7:35 AM Note Text: Patient overdue for well-child visits and/or vaccines. Please call to update PCP if needed and/or schedule an appointment.[facility] 07-08-2021 NoteHNO ID: [id number] Author: Jaxson Starks, DO Service: ? Author Type: Physician Type: Progress Notes Filed: 07/08/2021 2:08 PM Note Text: PEDIATRIC SICK VISIT SERVICE DATE: 07/08/2021 This is an in office for a face to face encounter and the mother is aware and agrees with 30-35 minute encounter. SUBJECTIVE: Cameron Teresa is a 15 year old male accompanied by mother for evaluation of the tips of his toes looking red all of the time and they 'tingle' at times. They do not hurt and he has no other body parts that bother him at all. He thinks his shoes may be to large but his feet do not slip in them. He is not active in sports and is not working. He previously used drugs but not for over a long period of time. History was obtained from: mother and patient Duration of Symptoms: multiple weeks to months Associated Symptoms: none Severity of Symptoms: moderate and have been not improving Modifying factors attempted: None Sick contacts: No known sick contacts. Smoking Exposure: Does your child spend a significant amount of time in the care of anyone who smokes? No HISTORY: ACTIVE PROBLEM LIST Mdd (Major Depressive Disorder) Ptsd (Post-Traumatic Stress Disorder) Polysubstance Abuse (Hcc) PAST MEDICAL HISTORY Diagnosis Date - Depression PAST SURGICAL HISTORY Procedure Laterality Date - NONE Allergies: ALLERGIES No Known Allergies Medications: ibuprofen (MOTRIN IB) 200 mg tablet Take 600 mg by mouth every 6 hours as needed. sodium chloride (AYR SALINE) 0.65 % nasal spray Use 1 Roosevelt in the nose as needed. albuterol HFA (PROVENTIL HFA, VENTOLIN HFA) 90 mcg/actuation inhaler Inhale 2 Puffs as instructed every 4 hours as needed for wheezing/shortness of breath. hydrOXYzine pamoate (VISTARIL) 50 mg capsule TAKE 2 CAPSULES BY MOUTH TWICE DAILY NEEDED venlafaxine ER (EFFEXOR XR) 75 mg 24 hr capsule Take 75 mg by mouth every morning. With 37.5 mg tablet melatonin 5 mg tablet Take 2 tablets by mouth daily at bedtime. venlafaxine ER (EFFEXOR XR) 37.5 mg 24 hr capsule Take 1 capsule by mouth daily with breakfast. REVIEW OF SYSTEMS: GENERAL: Negative for fevers HEENT: Negative for congestion or rhinorrhea. RESPIRATORY: Negative for wheezing or respiratory distress GI: Negative for vomiting or diarrhea. SKIN: Negative for lesions, rash, and itching. OBJECTIVE: Temp 37.1 ?C (98.7 ?F) (Temporal) Ht 196.9 cm (6' 5.5 ) Wt 84.4 kg (186 lb) BMI 21.77 kg/m? General: alert and active in no apparent distress, cooperative Eyes: conjunctiva clear Ears: TMs clear: bilaterally Nose: no erythema or exudate OP: moist without lesions Neck: supple, no adenopathy Lungs: clear to auscultation bilaterally, good air exchange, no retractions CVS: Normal rate, regular rhythm, no murmur Abdomen: soft, nondistended, nontender, no hepatosplenomegaly or masses Skin: No rashes, lesions or skin changes Extremities: No clubbing, cyanosis, or edema., No deformities or skin discoloration. Good capillary refill. Full range of motion., and pedal pulses very strong bilaterally. All of his toes and warm but the tips of his toes and redder with caluses on all of the MP joints ASSESSMENT/PLAN: Encounter Diagnosis ICD-10-CM 1. Hypothermia due to exposure T68.XXXA CBC + DIFF SED RATE WESTERGREN T4 FREE/FREE THYROX TSH BLD COMP METABOLIC PANEL - Follow up for persistent or worsening symptoms, not drinking, decreased urination, or other concerns. - Await labs and sill have his see specialist after same. SIGNATURE: Jaxson Starks DO PATIENT NAME: Cameron Teresa DATE: July 08, 2021 TIME: 1:05 [facility]11-19-2021 NoteHNO ID: [id number] Author: Jaxson Starks DO Service: ? Author Type: Physician Type: Progress Notes Filed: 05/15/2021 12:50 PM Note Text: PEDIATRIC SICK VISIT SERVICE DATE: 05/15/2021 This is an in office face to face encounter and they are aware and agrees with same for a 35-40 minute encounter. SUBJECTIVE: Cameron Teresa is a 15 year old male accompanied by mother for evaluation of fever headache nasal congestion rhinorrhea cough nausea. History was obtained from: mother Duration of Symptoms: 3-4 days Associated Symptoms: fever headache nasal congestion or rhinorrhea cough Severity of Symptoms: moderate and have been not improving Modifying factors attempted: Ibuprofen with relief. Sick contacts: No sick contacts. Smoking Exposure: Does your child spend a significant amount of time in the care of anyone who smokes? No HISTORY: ACTIVE PROBLEM LIST Mdd (Major Depressive Disorder) Ptsd (Post-Traumatic Stress Disorder) Polysubstance Abuse (Hcc) PAST MEDICAL HISTORY Diagnosis Date - Depression PAST SURGICAL HISTORY Procedure Laterality Date - NONE Allergies: ALLERGIES No Known Allergies Medications: hydrOXYzine pamoate (VISTARIL) 50 mg capsule TAKE 2 CAPSULES BY MOUTH TWICE DAILY NEEDED venlafaxine ER (EFFEXOR XR) 75 mg 24 hr capsule Take 75 mg by mouth every morning. With 37.5 mg tablet melatonin 5 mg tablet Take 2 tablets by mouth daily at bedtime. venlafaxine ER (EFFEXOR XR) 37.5 mg 24 hr capsule Take 1 capsule by mouth daily with breakfast. REVIEW OF SYSTEMS: GENERAL: Positive for fever, malaise and anorexia HEENT: Negative for congestion or rhinorrhea. RESPIRATORY: Negative for wheezing or respiratory distress GI: Negative for vomiting or diarrhea. SKIN: Negative for lesions, rash, and itching. OBJECTIVE: There were no vitals taken for this visit. General: alert and active in no apparent distress, cooperative Eyes: conjunctiva clear Ears: TMs clear: right Nose: no erythema or exudate, clear rhinorrhea OP: moist without lesions, no erythema, no exudates Neck: supple, small, benign anterior cervical node Bilateral Lungs: clear to auscultation bilaterally, good air exchange, no retractions CVS: Normal rate, regular rhythm, no murmur Abdomen: soft, nondistended, nontender, no hepatosplenomegaly or masses Skin: No rashes, lesions or skin changes ASSESSMENT/PLAN: Encounter Diagnosis ICD-10-CM 1. Headache, unspecified headache type R51.9 COVID, FLU A/B + RSV, ROUTINE Follow up for persistent or worsening symptoms, not drinking, decreased urination, or other concerns. SIGNATURE: Jaxson Starks DO PATIENT NAME: Cameron Teresa DATE: May 15, 2021 TIME: 12:10 [facility] complaint+Reason for visit Narrative* Chief Complaint discuss referral to psych Reason for Visit Depression PTSD (post-traumatic stress disorder) [facility] Work Phone: chief complaint+Reason for visit Narrative* Chief Complaint discuss referral to psych depression Reason for Visit Depression PTSD (post-traumatic stress disorder) [facility] Work Phone: chief complaint+Reason for visit Narrative* Chief Complaint discuss referral to psych depression anxiety Reason for Visit Depression PTSD (post-traumatic stress disorder) Restless leg Panic attack due to exceptional stress [facility] Work Phone: Chief complaint+Reason for visit Narrative* Chief Complaint discuss referral to psych depression anxiety overdose Reason for Visit Depression PTSD (post-traumatic stress disorder) Restless leg Panic attack due to exceptional stress [facility] Work Phone: Clinical Notes [facility] Consult note Author Chandler Flood [facility] October 22, 2022 10:51am Note Date/Time October 22, 2022 10: 51am [facility] [address] [place] [address] Psychiatry Consult Note Signed Patient: Cameron Teresa MR#: [id number] : 2005 Acct:[id number] Age/Sex: 17 / M Adm Date: 3 Loc: Room: [address] [place] [address] Type : ADM IN Attending Dr: Saqib Brantley DO Copies to: MD Saqib Reynolds DO NO FAMILY PHYSICIAN~ HPI Consult Date: 10/22/22 Requesting Physician: Saqib Brantley DO Primary Care Provider: NO FAMILY PHYSICIAN Consult Narrative HPI: Mr. Teresa is a 17 year old male with a history of depression and anxiety who presents for a psychiatric consult due to concerns of depression and anxiety.? He presented to the emergency department after a reported suicide attempt.? He admits to taking approximately 20 tablets of duloxetine 20 mg in approximately 20 tablets of venlafaxine extended release 75 mg.? Reports he had not attempted suicide since age 14 up until now. At the time of the interview, he reports feeling depressed. He has been going through multiple psychosocial stressors. He said he was being prescribed Effexorand switched abruptly to Cymbalta. He had tried several antidepressants in the past including Lexapro, Prozac and Zoloft but they were not effective. He said Effexor was helping with his mood that was starting to having some muscle spasmsand irritability. He said that the muscle spasms continued after stopping Effexor and now he realizes it is probably not a medication side effect. Reports a longstanding history using opiates, benzos and methamphetamine. He has been sober since last July. He has been following up with the psychiatric nurse practitioner at [facility] and was staying in sober living. He said he was supposed to start a job at [employer] today and was working 2 years from [employer]. He reports previous psychiatric hospitalization at [facility] at the age of 14 after a suicide attempt. He denies symptoms suggestive of ning, psychosis or agitation. He denied current illicit drug use. Mental Status: mental status grossly normal Mood: depressed mood Affect: constricted affect Speech and Movement: speech and movement normal and speech clear Attitude: cooperative Thought Process: normal Thought Content: Denied hallucinations, no homicidality and positive suicidality Insight: limited Judgment: limited PMFSH Vaccinated for COVID-19?: Yes Medical History (Updated 10/22/22 @ 10:51 by Chandler Flood MD) Anxiety Depression PTSD (post-traumatic stress disorder) Substance abuse Suicide attempt Surgical History No pertinent past surgical history Family History (Updated 10/22/22 @ 02:15 by Zara Westbrook RN) Grandparent HTN (hypertension) Cancer Mother Depression Anxiety Borderline personality disorder Social History Smoking Status: Current every day smoker Tobacco Type: cigarettes and smokeless tobacco Substance Use Type: Opiates, Amphetamines and Methamphetamine Substance Abuse Comment: living in a sober home and clean for 2 months, before that used everything Social History Comments: lives in a sober house Meds Medications and Allergies Allergies No Known Allergies Allergy (Verified 10/13/22 15:34) Home Medications duloxetine 20 mg capsule,delayed release 20 mg PO DAILY 10/21/22 [History Confirmed 10/21/22] acetaminophen 325 mg tablet (Tylenol) 325 mg PO Q65H PRN Pain 10/22/22 [History Confirmed 10/22/22] naproxen 500 mg tablet 500 mg PO BID PRN Pain 10/22/22 [History Confirmed 10/22/22] Exam Physical Exam Vital Signs: Temp Pulse Resp BP Pulse Ox O2 Del Method 98.3 F 86 19 138/75 96 Room Air 10/22/22 08:00 10/22/22 08:00 10/22/22 08:00 10/22/22 08:00 10/22/22 08:00 10/22/22 08:00 Results Labs 10/22/22 04:32 10/22/22 04:32 Psychiatry Labs: 10/21/22 10/21/22 10/21/22 18:16 18:16 18:34 RBC 5.59 Hgb 16.5 Hct 48.4 MCV 86.6 MCH 29.5 MCHC 34.1 RDW 13.7 Plt Count 214 MPV 9.4 Sodium 137 Potassium 3.5 Chloride 103 Carbon Dioxide 20.9 L Anion Gap 16.6 H BUN 14 Creatinine 1.15 Calcium 9.9 Total Bilirubin 0.4 AST 19 ALT 19 Alkaline Phosphatase 82 Total Protein 8.0 Albumin 4.9 Urine Color Yellow Urine Appearance Clear Urine pH 8.5 Ur Specific [place] 1.023 Urine Protein Trace H Urine Glucose (UA) Normal Urine Ketones 1+ H Urine Occult Blood Negative Urine Nitrite Negative Ur Leukocyte Esterase Negative Urine RBC 0-1 Urine WBC None seen 10/22/22 10/22/22 04:32 04:32 RBC 5.32 Hgb 15.7 Hct 46.1 MCV 86.7 MCH 29.5 MCHC 34.0 RDW 13.7 Plt Count 174 MPV 9.3 Sodium 138 Potassium 3.9 Chloride 107 Carbon Dioxide 24.7 Anion Gap 10.2 BUN 16 Creatinine 1.00 Calcium 8.7 Total Bilirubin 0.6 AST 16 ALT 17 Alkaline Phosphatase 69 Total Protein 6.8 Albumin 4.4 Urine Color Urine Appearance Urine pH Ur Specific [place] Urine Protein Urine Glucose (UA) Urine Ketones Urine Occult Blood Urine Nitrite Ur Leukocyte Esterase Urine RBC Urine WBC Assessment/Plan (1) Medication side effects: Code(s): T88.7XXA - Unspecified adverse effect of drug or medicament, initial encounter Status: Acute (2) Suicide attempt by multiple drug overdose: Code(s): T50.912A - Poisoning by multiple unspecified drugs, medicaments and biological substances, intentional self-harm, initial encounter Status: Acute (3) Major depressive disorder, recurrent, moderate: Code(s): F33.1 - Major depressive disorder, recurrent, moderate Status: Acute Plan Admit to 1S for management of depression and to ensure safety of self due to suicide attempt once medically clear. We will hold psychiatric medications at this time and will discuss with patient medication choices at 1S Monitor suicidal behaviors for safety of self Recommend attending groups and psychoeducation for building coping skills. Risks, benefits and indications of medications were discussed with the patient. The patient verbalized understanding. No abnormal movements noted on exam. AIMS is Zero. Documented By: Steve Flood MD 3 [id number] Signed By: <Electronically signed by Steve Flood MD> 10/22/22 1051 [facility] Work Phone: Consult note Author Wai Alfonso [facility] October 23, 2022 10:23am Note Date/Time October 23, 2022 10: 06am [facility] [address] [place] [address] Cardiology Consult Note Signed Patient: Cameron Teresa MR#: [id number] : 2005 Acct:[id number] Age/Sex: 17 / M Adm Date: 3 Loc: Room: [address] [place] [address] Type: ADM IN Attending Dr: Saqib Brantley DO Copies to: Saqib Brantley DO NO FAMILY PHYSICIAN Wai Alfonso MD~ Cardiology HPI History of Present Illness Consult Date: 10/23/22 Reason for Consult: I been asked by the patient's primary medicine service to see Cameron in consultation for opinion and recommendations regarding ST abnormalities on ECG prior to transfer from ICU to [facility] for treatment of depression. HPI: Mr. Teresa is a 17 year old male with no known prior cardiac history but a history of depression (patient's last suicide attempt was at age 14) who was admitted to the ICU from [facility] emergency department yesterday after he presented relating suicidal ideation. The patient states that this past week his antidepressant medical regimen was adjusted by changing Effexor to Cymbalta. He states shortly thereafter he became very low. He didmake a suicidal gesture by taking approximately 20 tablets of venlafaxine and 20tablets of Effexor. He was found by family and brought immediately to the emergency department here [facility] for evaluation and treatment. From a cardiac standpoint, Cameron denies any current or recent cardiac symptomatology. He denies any recent chest pain shortness of breath nausea vomiting diaphoresis lightheadedness dizziness presyncope or syncope. He statesthere is no family history of heart disease nor family history of sudden cardiacdeath that he is aware of. He states he is an active person but does not regularly exercise. He denies any illicit drug use or the introduction of any new nutritional supplements of late. Initial EKG in the emergency department showed a sinus tachycardia showed J- point elevation in the anterior leads in a pattern consistent with early repolarization. Serial ECGs showed resolution of the sinus tachycardia and 1 tracing with some exaggerated J-point elevation in the anterior leads. QTc has not been prolonged. Baseline QTc is 417 ms. QTc on this morning's ECG is 375 ms. With the one ECG showing exaggerated J-point elevation the patient's primary hospitalist service was contacted. The patient was not seen or evaluated directly, rather I am now consulted for further cardiac evaluation andmanagement, and for cardiac/medical risk assessment/stratification prior to transfer to [facility] for further inpatient treatment of the patient's depression andsuicidal ideation. Review of Systems Review of Systems All other systems reviewed & are negative unless noted below or in HPI PMFSH Vaccinated for COVID-19?: Yes Medical History (Updated 10/23/22 @ 10:21 by Wai Alfonso MD) Anxiety Depression PTSD (post-traumatic stress disorder) Substance abuse Suicide attempt Surgical History No pertinent past surgical history Family History (Updated 10/22/22 @ 02:15 by Zara Westbrook RN) Grandparent HTN (hypertension) Cancer Mother Depression Anxiety Borderline personality disorder Social History Smoking Status: Current every day smoker Tobacco Type: cigarettes and smokeless tobacco Substance Use Type: Opiates, Amphetamines and Methamphetamine Substance Abuse Comment: living in a sober home and clean for 2 months, before that used everything Social History Comments: lives in a sober house Meds Medications and Allergies Allergies No Known Allergies Allergy (Verified 10/13/22 15:34) Home Medications duloxetine 20 mg capsule,delayed release 20 mg PO DAILY 10/21/22 [History Confirmed 10/21/22] acetaminophen 325 mg tablet (Tylenol) 325 mg PO Q65H PRN Pain 10/22/22 [History Confirmed 10/22/22] naproxen 500 mg tablet 500 mg PO BID PRN Pain 10/22/22 [History Confirmed 10/22/22] Exam Physical Exam Vital Signs: Temp Pulse Resp BP Pulse Ox O2 Del Method 98.4 F 83 19 132/63 98 Room Air 10/23/22 09:00 10/23/22 09:35 10/23/22 09:00 10/23/22 09:35 10/23/22 09:00 10/23/22 09:00 Const General: cooperative, healthy appearing, comfortable and no acute distress Nutritional Appearance: thin Orientation: alert, awake and oriented x3 HEENT Head: normal to inspection, normocephalic and atraumatic Face and sinus: face symmetric Mouth: moist mucous membranes Teeth and gingiva: dentition normal Eyes Conjunctivae: conjunctivae normal Sclera: sclerae normal Pupils: PERRL and accommodation normal EOM: EOM intact bilaterally Direct ophthalmoscopy: no photophobia Neck Neck: no lymphadenopathy and supple Neck mass: No Thyroid: thyroid normal Carotids: normal carotid upstroke Lymphatic: no lymphadenopathy noted Chest Chest palpation & inspection: normal inspection of the chest Resp Effort & Inspection: normal respiratory effort, able to speak in complete sentences and symmetric chest movement Auscultation: clear to auscultation bilaterally Cardio Jugular venous pressure: no JVD Palpation: normal PMI Rate: regular rate Rhythm: regular rhythm Heart Sounds: S1 normal and S2 normal Pulses: radial pulses present, posterior tibial pulses present and dorsalis pedis present GI Palpation: soft and no hepatosplenomegaly Auscultation: normal bowel sounds Skin General: no rashes or lesions noted Trauma: no lacerations or abrasions Wounds: no wounds Neuro General: patient alert, patient awake, patient oriented x3, moves all extremities and no focal motor deficits Cranial Nerves: CN's II-XII intact bilaterally Cognition: normal cognition Speech: speech normal Motor: muscle tone normal throughout Sensory Exam: no sensory deficits noted Extrem General: normal to inspection, full ROM and no clubbing, cyanosis or edema Psych Appearance: grossly normal Mental Status: mental status grossly normal Mood: congruent mood Affect: normal affect Speech and Movement: speech and movement normal Attitude: cooperative Thought Process: normal Thought Content: normal Insight: insight good Judgment: judgment good MEGHANA Risk Score MEGHANA Risk Score Predictor Presentation: ST Deviation >/=0.05mV Score Risk Score (0-7): 1 Results Labs 10/22/22 04:32 10/22/22 04:32 Lab results: Intake and Output 10/22/22 10/23/22 10/23/22 23:59 07:59 15:59 Intake Total 800 / 4550 480 / 480 Balance 800 / 4550 480 / 480 Intake: Oral 800 / 2550 480 / 480 Other: # Unmeasured Voids 2 1 Weight 79.8 kg Patient Weight 10/23/22 23:59 Weight 79.8 kg EKG Interpretations EKG Attestation EKG: I reviewed this ECG and interpreted as documented below: EKG results cardiology: no acute changes Dysrhythmias Sinus rhythms and dysrhythmias: sinus rhythm Blocks, axis, hypertrophy, ST abn Repolarization changes or abnormalities: early repolarization (normal variant) CT, pacemaker, normal Normal tracing: no change compared to previous tracing A&P - Cardiology (1) Abnormal electrocardiogram finding: Assessment/Problem Details: ST abnormalities on resting electrocardiogram likely represent early repolarization which is a normal variant in a 17-year-old fit male. The 1 ECG tracing where this is exaggerated is likely secondary to repolarization effects from recent attempted overdose with psychotropic medications. I have no clinical suspicion of an underlying myocardial ischemic process. Low risk from a cardiac standpoint. Plan: No cardiac specific therapy is recommended The patient is deemed low risk for adverse cardiac events and should transfer to S. as deemed appropriate by his psychiatric caregiver for ongoing treatment ofmajor depressive disorder with suicidal ideation. Code(s): R94.31 - Abnormal electrocardiogram [ECG] [EKG] Plan Thank you very much for this kind consultation and for allowing me to participate in the care of this very pleasant young man Documented By: Wai Alfonso MD 10/23/22 1005 Signed By: <Electronically signed by Wai Alfonso MD> 10/23/22 1023 [facility] Work Phone: Discharge summary Author Saqib Brantley [facility] October 23, 2022 1:05pm Note Date/Time October 23, 2022 1:0 5pm [facility] [address] [place] [address] Discharge Summary Signed Patient: Cameron Teresa MR#: [id number] : 2005 Acct:[id number] Age/Sex: 17 / M Adm Date: 3 Loc: Room: [address] [place] [address]: Saqib Brantley DO Copies to: Saqib R. Frings, DO NO FAMILY PHYSICIAN~ Providers Date of Discharge: 10/23/22 Discharging Provider: Saqib Brantley Primary Care Provider: [facility] Consults: 10/21/22 20:35 Consult to Psychiatry Routine 10/21/22 23:12 Consult to Case Management Routine 10/23/22 08:58 Consult to Cardiology Routine Discharge Diagnosis Final Diagnosis Final Discharge Diagnosis: 1. Suicide attempt 2. Overdose 3. Suicidal ideation 4. Depression 5. Hypertension 6. Abnormal EKG Summary Hospital Course Hospital course: This patient is a 17-year-old [facility] The patient had been at a sober living facility and ingested 20 tablets of Effexor ER as well as 20 tablets of Cymbalta in an attempt to commit suicide. Reports significant dysphoria and suicidal ideation. He complained of some mild drowsiness and nausea but hemodynamically remained stable. He was hypertensive on presentation at 160/80, presumed to be due to hypersympathetic tone from ingestion. Poison control was contacted and ultimately recommended ongoing cardiac monitoring and glucose checks every 4 hours to monitor for hypoglycemia. His labs were unremarkable and vital signs remained stable with blood pressure coming down. He remained in the intensive care unit on suicide precautions as patient is actively depressed reporting suicidal ideation. Cardiology was consulted on day of discharge for EKGs which appeared abnormal. 1 of these EKGs revealed a report suggesting acute myocardial infarction. Ultimately this was deemed to be J-point elevation consistent with early repolarization and not an acute cardiac issue. The patient remains medically stable now and I feel appropriate for discharge to the S. unit for continued inpatient psychiatric hospitalization. Physical Examination: GENERAL APPEARANCE: Alert, up in bed AAOx3 HEENT: NCAT, MMM NECK: Neck soft w/o masses, no JVD CARDIAC: Normal S1 and S2. No S3, S4 or murmurs. LUNGS: Clear to auscultation bilaterally. no wheeze/rhonchi/rales ABDOMEN: Positive bowel sounds. Soft, nontender. No guarding or signs of an acute abdomen MUSCULOSKELETAL: No joint erythema or tenderness. EXTREMITIES: No clubbing, cyanosis or edema PSYCHIATRIC: Depressed mood and affect 25 minutes were spent coordinating the discharge of this patient Time Spent with Patient Time spent providing/coordinating discharge services (# min): 25 Diagnostic Studies Completed and Pending Studies Labs on day of discharge: 10/23/22 09:16: ESR 2 10/23/22 09:16: Troponin I High Sens 3.0 10/22/22 16:43: POC Glucose 74, POC Glucose Comment Glu2: cleaned meter Exam Physical Exam Vital Signs: Temp Pulse Resp BP Pulse Ox O2 Del Method 98.4 F 89 16 125/62 98 Room Air 10/23/22 12:57 10/23/22 12:57 10/23/22 12:57 10/23/22 12:57 10/23/22 12:57 10/23/22 12:57 Discharge Plan Discharge Plan Prescriptions: Discontinued duloxetine 20 mg capsule,delayed release(DR/EC) 20 mg PO DAILY Patient Comments: TAKE 1 CAPSULE BY MOUTH ONCE DAILY acetaminophen [Tylenol] 325 mg Tablet 325 mg PO Q65H PRN (Reason: Pain) naproxen 500 mg tablet 500 mg PO BID PRN (Reason: Pain) Documented By: Saqib Brantley DO 10/23/22 13 00 Signed By: <Electronically signed by Saqib Brantley DO> 10/23/22 1305 [facility] Work Phone: Evaluation + Plan note S Evaluation + Plan note No data available for this section [facility] Evaluiwmka noteNo assessment information available [facility] Work Phone: Evaluation note* Diagnosis Onset Date Resolution Status Abnormal electrocardiogram finding acute Major depressive disorder, recurrent, moderate acute Medication side effects acut e Suicide attempt by multiple drug overdose acute [facility] Work Phone: Evaluation noteNo InformationN[employer] Other Evaluation note* Diagnosis Onset Date Resolution Status Depression acute PTSD (post-traumatic stress disorder) acute [facility] Work Phone: Evaluation note* Diagnosis Onset Date Resolution Status Depression acute PTSD (post-traumatic stress disorder) acute Restless leg acute Panic attack due to exceptional stress acute [facility] Work Phone: Evaluation note* Diagnosis Onset Date Resolution Status Insomnia acute PTSD (post-traumatic stress disorder) acute Substance abuse in remission acute [facility] Work Phone: History general Narrative - Reported* Type Description Date Medical History Anxiety Medical History PTSD (post-traumatic stress diso rder) Medical History Depression Medical History TMJ (temporomandibular joint dis order) Medical History Substance abuse in remission Surgical History [place] teeth removal 12/2022 [employer] Other History of Present illness Narrative* The patient is here today for routine health maintenance with: mother * . * General Health: Child overall is in good health. * Concerns: Concerns were raised today SEE HPI. * Social and Family History: There are no interval changes in child's social and family history. * Food Security: Within the past 12 months, have you worried that your food would run out before you got money to buy more: No. Within the past 12 months, the food you bought just did not last and you did not have money to get more: No. * Nutrition: Diet is balanced. * Dental Care: Has a dental home. Dental hygiene is regularly performed. * Sleep: Sleep patterns are appropriate. He has no sleep problems. * Behavior/Socialization: Peer relationships are appropriate. Eats meals with family. Fcazcn-mpnut-huoyzaf interactions are normal. Has a supportive adult relationship. Is permitted to make independentdecisions. Child has responsibilities and/or chores. Lives with parents. * Developmental/Education/Employment: He is in a public school grade 12. * Work: He works part-time. * Activities: He does not participate in extracurricular activities, hobbies or interests. Screen time/media use is not limited. * Sports Participation Screening: no history of a concussion(s), no fainting or near fainting during or after exercise, no chest pain during exercise, no shortness of breath during exercise and no palpitations, rapid or skipped heart beats at rest or during exercise . CAMERON has no known heart problems. He has not had a family member that had a heart attack or without a cause prior to 50 years of age. * Sex: Not currently dating. * Drugs (Substance use/abuse): Denies drug use. Denies tobacco use. Denies alcohol use. * Mental Health: A screening questionnaire for depression was negative. Does not have thoughts of hurting self or has considered suicide. * 16 yo male presents as [facility] * Previous PCP: Dr. 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 [employer] * Pt does not exercise/workout * Pt denies abdominal pain * last BM: 3 days ago * when he goes its like rabbit terds * Pt takes docusate and Fiber-Lax daily for the past year 2/2 constipation * Pt tried MiraLax ONCE daily last year and he had liquid stools * Pts mom denies any family hx of colon cancer [facility] Work Phone[facility] Discharge instructions Additional Instructions Continue current medication Increase oral fluids Change positions carefully while you are dizzy Follow-up with your provider who prescribes the affects your Return to the ER for worsening headache vomiting high fever or any [facility] Work Phone: Hospital Discharge instructions Additional Instructions Inpatient Psychiatry to manage care: - Full code - Maintain seizure and suicide precautions per protocol -[facility] Work Phone: Hospital Discharge instructionsAmbulatory Orders* Referral to Psychiatry Location: None Selected [facility] Work Phone: Hospital Discharge instructions Additional Instructions Please find help. You have experience with sobriety, so you know that you can get clean. You cannot be your own counselor, though. We are happy to help if you need us. You are too young to , but you take that risk every time you use.[facility] Work Phone: Instructions* Name Dates Details Instructions not documented -[facility] Work Phone: progress note Author Saqib Brantley [facility] October 22, 2022 6:28pm Note Date/Time October 22, 2022 6:2 9pm [facility] [address] [place] [address] Hospitalist Progress Note Signed Patient: Cameron Teresa MR#: [id number] : 2005 Acct:[id number] Age/Sex: 17 / M Adm Date: 3 Loc: Room: 5D1183-8 Type: ADM IN Attending Dr: Saqib Brantley DO Copies to: ~ Date of Service: 10/22/2022 Subjective Subjective Narrative: Patient was seen and examined at the bedside. No acute events overnight. Remains in the intensive care unit on suicide precautions. Physical Examination: GENERAL APPEARANCE: Alert, up in bed AAOx3 HEENT: NCAT, MMM NECK: Neck soft w/o masses, no JVD CARDIAC: Normal S1 and S2. No S3, S4 or murmurs. LUNGS: Clear to auscultation bilaterally. no wheeze/rhonchi/rales ABDOMEN: Positive bowel sounds. Soft, nontender. No guarding or signs of an acute abdomen MUSCULOSKELETAL: No joint erythema or tenderness. EXTREMITIES: No clubbing, cyanosis or edema PSYCHIATRIC: Depressed mood and affect Assessment and plan: 1. Overdose of SNRI/SSRI medication Patient will require continuous telemetry monitoring. His presenting hypertension appears to be resolving. This was likely medication side effect ofOD, a result of presenting stress but also hyperadrenergic tone given the SNRI ingestion. We will continue monitoring on telemetry. Appreciate poison controlrecommendations. Cruciate psychiatry recommendations. Likely oneself tomorrow suicide precautions. He will require continuous monitoring and serial labs as time to flush out this medication is quite prolonged given the high dose ingestion. Will provide IV fluids as well to assist in this process. 2. Suicidal ideation Consult to psychiatry. Appreciate recommendations. Likely 1 S. tomorrow. Disposition: Patient is admitted for continuous monitoring of vital signs and telemetry in the intensive care unit. He needs to remain on suicidal precautions as he is expressing suicidal ideation and intent. Time to washout of high-dose ingestion of the aforementioned medications is undoubtedly a prolonged period that will surpass greater than 2 midnights. Considering these factors he is thus admitted as an inpatient for a stay that will surpass better than 2 midnights. Exam Physical Exam Vital Signs: Temp Pulse Resp BP Pulse Ox O2 Del Method 98.3 F 73 20 130/62 97 Room Air 10/22/22 12:00 10/22/22 17:00 10/22/22 17:00 10/22/22 12:00 10/22/22 12:00 10/22/22 17:00 Objective Lab Results 10/22/22 04:32 10/22/22 04:32 Meds Allergies and Active Meds Allergies No Known Allergies Allergy (Verified 10/13/22 15:34) Active Meds: Active Medications Generic Name Dose Route Start Last Admin Trade Name Misha PRN Reason Stop Dose Admin Acetaminophen 650 mg 10/21/22 23:11 10/22/22 16:47 Acetaminophen 325 Mg Tablet PO 10/21/23 23:10 650 mg Q4H PRN Administration Pain Scale 1 - 5 Sodium Chloride 1,000 mls @ 125 mls/hr 10/21/22 23:00 10/22/22 15:36 0.9% Sodium Chloride 1,000 Ml IV 10/21/23 22:59 125 mls/hr .Q8H KOMAL Administration Melatonin 10 mg 10/21/22 23:30 10/21/22 23:22 Melatonin 5 Mg Tablet PO 10/21/23 23:29 10 mg QHS KOMAL Administration Nicotine 1 each 10/21/22 23:15 10/22/22 09:46 Nicotine Patch 21 Mg/24hr 1 Each Patch.Td24 TRANSDERML 12/01/22 09:01 1 each DAILY KOMAL Administration Ondansetron HCl 4 mg 10/21/22 22:50 10/22/22 07:20 Ondansetron 4 Mg/2 Ml Vial IV-PUSH 10/21/23 22:49 4 mg Q4H PRN Administration Nausea And Vomiting Sodium Chloride 0 ml 10/21/22 18:15 10/21/22 23:23 Sodium Chloride 0.9 % 10 Ml Syringe IV-PUSH 10/21/23 18:14 10 ml PRN PRN Administration Flush Documented By: Saqib Brantley DO 10/22/22 18 26 Signed By: <Electronically signed by Saqib Brantley DO> 10/22/22 5045 [facility] Work Phone: Progress note No data available for this section [facility] Care Summary Purpose Family History Mother Name Dates Details Family history of asthma(V17 .5, Z82.5) Status:Active Family history of Allergic r hinitis, seasonal(477.9, J30.2) Status:Active Family history of Anxiety(30 0.00, F41.9) Status:Active Unknown Family Member Name Dates Details Family history of asthma: Mo ther(V17.5, Z82.5) Status:Active Allergic rhinitis, seasonal: Mother Status:Active Anxiety: Mother Status:Active Unknown Family Member Name Dates Details Family history of asthma: Mo ther(V17.5, Z82.5) Status:Active Allergic rhinitis, seasonal: Mother Status:Active Anxiety: Mother Status:Active Unknown Family Member Name Dates Details Family history of asthma: Mo ther(V17.5, Z82.5) Status:Active Allergic rhinitis, seasonal: Mother Status:Active Anxiety: Mother Status:Active Relationship Condition Age at Onset Recorded Date/T sameer grandparent Hypertension Unknown Malignant neoplasm Unknown Not Specified Depression Unknown Anxiety Unknown Borderline personality disorder Unknown Relationship Condition Age at Onset Recorded Date/T sameer grandparent Hypertension Unknown Malignant neoplasm Unknown Not Specified Depression Unknown Anxiety Unknown Borderline personality disorder Unknown Chronic mental illness Unknown Relationship Condition Age at Onset Recorded Date/T sameer grandparent Hypertension Unknown Malignant neoplasm Unknown mother Depression Unknown Anxiety Unknown Borderline personality disorder Unknown Chronic mental illness Unknown Advance Directives Advance Directive Response Recorded Date/ Time Advance Directives No September 27 2:57pm Advance Directive Response Recorded Date/ Time Advance Directives No September 27 1:57pm Hospital Course Note HNO ID: [id number] Author: Jules Munoz Service: Pediatric Psychiatry Author Type: Physician Type: Discharge Summary Filed: 06/10/2020 11:39 AM Note Text: CHILD AND ADOLESCENT PSYCHIATRY DISCHARGE SUMMARY PATIENT NAME: Cameron Teresa ADMISSION INFORMATION Date of Admission: 06/06/2020 Date of Discharge: 06/10/2020 Attending Physician(s): Corrine Munoz MD Formulation from admission: Cameron Teresa is 14 year old in the 11th grade who has a [address] with a history of depression, PTSD, substance abuse and anxiety followed by Dr. Benjamin (psychiatrist), Millicent Sahni (therapist), Germain ([facility]), and currently in residential substance use treatment at [facility] with several previous psychiatric admissions ([facility] in January 2020 and in twice in 2018, and in June 2019) admitted to Inpatient Psychiatry for SI with multiple plans (running into traffic, ODing on OTC medications, or jumping off ledge at [employer]). Family history is significant for mother w (more content not included)... Assessments and Plan Discharge Instructions ED Discharge Education Evaluation from 09/23/2020 3:10 AM: * Discharge Instruction : Reviewed Discharge Instructions with Patient/Significant Other,Patient/Significant Other Verbalized Understanding of Discharge Instructions,Patient/Significant Other Received Written Instructions * Educ Topic #1 : Safety * Barriers to Learning : No Barriers * Teaching Method : Discuss * Evaluation Method : Verbal Patient Transfer Information from 09/23/2020 12:55 AM: * LOC : Alert Physician Follow-up Plan/Appointments from 09/23/2020 2:08 AM: * Patient stated Primary Care Provider : Jaxson Starks DO (PCP) ([id number]) - Unknown, Physician Chief Complaint * Cameron is here today for NPV previously seen last by his dry chain worker who is Dr. Starks at [facility] in [place]. * Pt reports that for the past two months he has had blood in his stool that patient states is brightred in color. Pt reports that he has always had GI issues and some blood in his stool here and there but nothing at the severity it is now. Chief Complaint and Reason for Visit Chief Complaint dizzy, nausea Chief Complaint dizzy, nausea E55.9 Z01.89 Stiff neck,headache OD Chief Complaint dizzy, nausea E55.9 Z01.89 Stiff neck,headache OD Reason for Visit Abnormal electrocard iogram finding Major depressive disorder, recurrent, moderate Medication side effects Suicide attempt by multiple drug overdose Chief Complaint Sore throat Chief Complaint J02.9 jaw, neck and head pain hx of TMJ Chief Complaint jaw, neck and head p ain hx of TMJ Chief Complaint Sleep issues Reason for Visit Insomnia PTSD (post-traumatic stress disorder) Substance abuse in remission Reason for Referral Reason *Waiting for appt Please call pt to establish care with primary doctor and to be seen for his chronic neck pain Diagnosis 1 Lymph node enlargeme nt (R59.9) Referral Organization [facility] Ur[facility] nduskdannie Referring Provider First Name Nazario Referring Provider Last Name Babatunde Referring Provider Specialty Nurse Pract theodoreionetirso Referred Organization [facility] Abby Dickey Referred Provider Nayla Dorsey Referred Address [address] [place] [address], [place], [place],[address] Referred Provider Specialty Nurse Naye dsouza Referral Priority Routine General Notes Edith Sneed 023 07:16:48 AM >Received today and sent P2P Additional Source Comments (unrecognized sect ion and content) No Status Records FoundNo Status Records FoundNo Status Records FoundNo Status Records FoundNo Status Records FoundNo Status Records FoundNo Status Records FoundNo Status Records FoundNo Status Records FoundNo Status Records FoundNo Status Records FoundNo Status Records FoundNo Status Records Found INFORMATION SOURCE (unrecogn ized section and content) DATE CREATED AUTHOR 06/10/2020 [facility] DATE CREATED AUTHOR AUTHOR'S ORGANIZ ATION [facility]/29/[facility] DATE CREATED AUTHOR AUTHOR'S ORGANIZ ATION 09/29/2020 [facility] [employer] [facility] DATE CREATED AUTHOR AUTHOR'S ORGANIZ ATION 10/31/2020 [facility] DATE CREATED AUTHOR AUTHOR'S ORGANIZ ATION 11/01/2020 [facility] DATE CREATED AUTHOR AUTHOR'S ORGANIZ ATION 11/23/2020 [facility] DATE CREATED AUTHOR AUTHOR'S ORGANIZ ATION 05/18/2021 [facility] DATE CREATED AUTHOR AUTHOR'S ORGANIZ ATION 09/16/2021 [facility] DATE CREATED AUTHOR AUTHOR'S ORGANIZ ATION 08/25/2022 [facility] DATE CREATED AUTHOR AUTHOR'S ORGANIZ ATION 10/28/[address] [facility] DATE CREATED AUTHOR AUTHOR'S ORGANIZ ATION 04/08/2023 [facility] DATE CREATED AUTHOR AUTHOR'S ORGANIZ ATION 10/30/2023 [facility] DATE CREATED AUTHOR AUTHOR'S ORGANIZ ATION 11/28/2023 [facility] Goals (unrecognized section and content) Goals may be documented in an alternate sectionGoals may be documented in an alternate sectionNo InformationGoals may be documented in an alternate sectionNo InformationNo InformationNo InformationGoals may be documented in an alternate section No data available for this sectionNo InformationNo InformationNo InformationNo InformationNo InformationNo InformationGoals may be documented in an alternate sectionNo InformationGoals may be documented in an alternate sectionGoals may be documented in an alternate sectionGoals may be documented in an alternate sectionGoals may be documented in an alternate sectionGoals may be documented in an alternate section Care Teams (unrecognized sec tion and content) Team Status: Active Member Role Status Dates Nayla Dosrey APRN Primary Care Provider Active Team Status: Active Member Role Status Dates Nayla Dorsey APRN Primary Care Provider Active Start: January 17, 2024 Saqib Shea PA-C Attending Provider Active Start: January 17, 2024 Team Status: Inactive Member Role Status Dates Nayla Dorsey APRN Primary Care Pr ovider, Attending Provider Active Start: March 20, 2024 End: March 20, 2024 Team Status: Active Member Role Status Dates PHYSICIAN NO FAMILY Primary Care Provider Active Team Status: Inactive Member Role Status Dates PHYSICIAN NO FAMILY Primary Care Provider Active Margarita Schaeffer [facility] Emergency Provider Active Team Status: Inactive Member Role Status Dates PHYSICIAN NO FAMILY Primary Care Provider Active Nicole Jarrett NP-C Attending Provider Active Team Status: Inactive Member Role Status Dates PHYSICIAN NO FAMILY Primary Care Provider Active Enzo Roach APRN Emergency Provider Active Team Status: Active Member Role Status Dates PHYSICIAN NO FAMILY Primary Care Provider Active Mehdi Ornelas PA-C Emergency Provider Active Saqib Brantley DO Admit Provider, Attending Provider Active Team Status: Inactive Member Role Status Dates PHYSICIAN NO FAMILY Primary Care Provider Active Mehdi Ornelas PA-C Emergency Provider Active Saqib Brantley DO Admit Provider, Attending Provider Active Arnel Carlisle MD Other Provider Active Sharon Shahid , LIVESTOCK HANDLER Other Provider Active Chandler Flood MD Other Provider Active Nicholas Frias MD Other Provider Active America Castro RN Other Provider Active Ginger Cid DO Other Provider Active Regine Bingham MD Other Provider Active Iglesia Milan MD Other Provider Active Kellee Lambert MD Other Provider Active Ernie Jimenez MD Other Provider Active Anne-Marie Smith , LIVESTOCK HANDLER Other Provider Active Elizabeth Serrato MD Other Provider Active Arnel Ibanez MD Other Provider Active Lizette Vega MD Other Provider Active Sherrie Wick MRI SUPERVISOR-BC Other Provider Active Soledad Perez MD Other Provider Active Team Status: Inactive Member Role Status Dates Ana Laura Lacey APRN Attending Provider Active Team Status: Inactive Member Role Status Dates Ana Laura Lacey APRN Attending Provider Active PHYSICIAN NO FAMILY Primary Care Provider Active Team Status: Inactive Member Role Status Dates PHYSICIAN NO FAMILY Primary Care Provider Active Nayla Dorsey APRN Attending Provider Active Team Status: Active Member Role Status Dates Nayla Dorsey APRN Primary Care Provider Active Team Status: Inactive Member Role Status Dates Nayla Dorsey APRN Primary Care Pr ovider, Attending Provider Active Start: September 22, 2023 End: September 22, 2023 Team Status: Inactive Member Role Status Dates Nayla Dorsey APRN Primary Care Pr ovider, Attending Provider Active Start: October 06, 2023 End: October 06, 2023 Team Status: Inactive Member Role Status Dates Nayla Dorsey APRN Primary Care Pr ovider, Attending Provider Active Start: October 31, 2023 End: October 31, 2023 Team Status: Inactive Member Role Status Dates Nayla Dorsey APRN Primary Care Provider Active Start: November 14, 2023 End: November 14, 2023 Nazario Shaw Jr, MD Emergency Provider Active Start: November 14, 2023 End: November 14, 2023 Team Status: Active Member Role Status Dates Nayla Dorsey APRN Primary Care Provider Active Start: January 17, 2024 Saqib Shea PA-C Attending Provider Active Start: January 17, 2024 Team Status: Inactive Member Role Status Dates Nayla Dorsey APRN Primary Care Pr ovider, Attending Provider Active Start: March 20, 2024 End: March 20, 2024 REASON FOR VISIT (unrecogniz ed section and content) SORE THROATNo InformationHER E LAST WEEKNew PatientPCP Office Notesrefill flexeril and toradolRefill FlexerilRx concernsrefill flexeril, toradollab requestClinical Acute Illness FOR RECORDS PERTAINING TO PATIENTS WHO ARE OR HAVE BEEN ENROLLED IN A CHEMICAL DEPENDENCY/SUBSTANCEABUSE PROGRAM, SOME INFORMATION MAY BE OMITTED. This clinical summary was aggregated from multiple sources. Caution should be exercised in using it in the provision of clinical care. This summary normalizes information from multiple sources, and as a consequence, information in this document may materially change the coding, format and clinical context of patient data. In addition, data may be omitted in some cases. CLINICAL DECISIONS SHOULD BE BASED ON THE PRIMARY CLINICAL RECORDS. [facility] [employer] [facility]. provides no warranty or guarantee of the accuracy or completeness of information in this document.
--- NOTE | 2024-04-03 19:47 | ED.NAVMDI1 ---
HPI - Nausea/Vomiting/Diarrhea General Chief complaint: Nausea/Vomiting/Diarrhea Stated complaint: FLU Time Seen by Provider: 04/03/24 19:37 Source: patient Mode of arrival: walk-in Limitations: no limitations History of Present Illness HPI Narrative: 18-year-old male presents to the emergency department with complaint of nausea, vomiting, and diarrhea, having the stomach flu, over the past few days. On day 1 and day 2, was not keeping solids or liquids down. Today, states he is keeping Pedialyte down. Has some intermittent abdominal cramping. Patient states he is in need of a work note. Quality:?As above Severity:?Moderate Timing:?3 days, improving Context: Normal setting and activity? Modifying factors:?None Associated symptoms: As above Related Data Home Medications ?Medication ?Instructions ?Recorded ?Confirmed cariprazine 1.5 mg capsule 1.5 mg PO DAILY 06/10/23 06/10/23 (Vraylar) venlafaxine 75 mg capsule,extended 225 mg PO DAILY 06/10/23 06/10/23 release 24 hr (Effexor XR) Previous Rx's ?Medication ?Instructions ?Recorded ondansetron 4 mg disintegrating 4 mg PO TID PRN nausea and 04/03/24 tablet vomiting #10 tabs Allergies Allergy/AdvReac Type Severity Reaction Status Date / Time No Known Drug Allergies Allergy Verified 01/17/24 14:56 Review of Systems ROS Narrative CONST: Denies any fever, chills GI: +intermittent abd pain, nausea, vomiting, diarrhea : Denies any flank pain, dysuria MS: Denies any back pain, myalgias SKIN: Denies any color change, rash NEURO: Denies numbness, weakness PSYCHIATRIC: Denies confusion, agitation PFSH PFSH Social History Smoking status: Current every day smoker Little interest or pleasure in doing things: not at all Feeling down, depressed, or hopeless: not at all Exam Narrative Exam Narrative: Vital signs reviewed Nurses notes noted CONST: Nontoxic, well appearing, well nourished, in no distress.? No diaphoresis.?? HENT: normocephalic, atraumatic, moist mucous membrane, no abnormalities of the nose noted, hearing normal EYES: normal appearing conjunctiva, no apparent discharge bilat NECK: normal appearance CV: normal rate, regular rhythm, no murmur RESP: normal effort, speaking in complete sentences. Lung sounds clear and equal bilat.? No wheezes, rales, rhonchi GI: normal bowel sounds, soft, no distension, nontender : no CVA tenderness MS: no edema, tenderness SKIN: no pallor NEURO: A&Ox 3, no focal findings PSYCH: normal mood, affect Constitutional Vital Signs, click to edit/add: Last Vital Signs Temp 98.9 F 04/03/24 18:33 Pulse 107 H 04/03/24 18:33 Resp 18 04/03/24 18:33 BP 174/96 H 04/03/24 18:33 Pulse Ox 97 04/03/24 18:33 Course Vital Signs Vital signs: Vital Signs Temperature 98.9 F 04/03/24 18:33 Pulse Rate 107 H 04/03/24 18:33 Respiratory Rate 18 04/03/24 18:33 Blood Pressure 174/96 H 04/03/24 18:33 Pulse Oximetry 97 04/03/24 18:33 Temperature 98.9 F 04/03/24 18:33 Pulse Rate 107 H 04/03/24 18:33 Respiratory Rate 18 04/03/24 18:33 Blood Pressure 174/96 H 04/03/24 18:33 Pulse Oximetry 97 04/03/24 18:33 MDM - Nausea/Vomiting/Diarrhea MDM Narrative Medical decision making narrative: This is a pleasant 18-year-old male who presents to the emergency department with complaint of having the stomach flu. He complains of 3-day history of nausea, vomiting, and diarrhea. Has had some intermittent abdominal cramping. States today he has been able to keep down Pedialyte without vomiting. Denies any fever, chills. On arrival, afebrile, vital signs are stable. Exam, nontoxic, well-appearing patient in no distress. Heart regular rate and rhythm. Lung sounds clear and equal bilaterally. Abdomen soft without appreciable tenderness. Offered patient IV fluids, lab work including electrolytes. Patient declining. He states he has been noticing improvement today, but he is requesting Zofran ODT and a work note. Patient informed that he may return anytime for labs, IV fluids as discussed. He is agreeable with this. He voices no questions or concerns History and record review Additional records reviewed: Prior ER visits, otherwise no prior records Favor nausea, vomiting, diarrhea Dehydration less likely based on normal vital signs, moist mucous membranes Acute abdomen less likely based on history and physical exam. Disposition ? The patient was discharged. Plan: Patient will be discharged to home. Condition at time of disposition: stable Prescription for Zofran transmitted to his pharmacy Advised to follow up with primary provider. Advised to return for any worsening and/or development of new, concerning signs or symptoms PLEASE NOTE: Portions of the medical record may have been produced using electronic parts salesman and may contain errors with respect to translation of words which may not have been identified prior to finalization of the chart. Medical Records Attestation: I reviewed the patient's medical records. Discharge Plan Discharge Stand Alone Forms: Work/School Release Chief Complaint: Nausea/Vomiting/Diarrhea Clinical Impression: Nausea vomiting and diarrhea Patient Disposition: Home, Self-Care Time of Disposition Decision: 19:45 Condition: Good Mode of Transportation: Private Vehicle Prescriptions / Home Meds: New ondansetron 4 mg tablet,disintegrating 4 mg PO TID PRN (Reason: nausea and vomiting) Qty: 10 0RF No Action venlafaxine [Effexor XR] 75 mg capsule,extended release 24hr 225 mg PO DAILY Vraylar 1.5 mg capsule 1.5 mg PO DAILY Print Language: Persian Instructions: Acute Nausea and Vomiting (DC), Acute Diarrhea (ED) Referrals: Nayla Dorsey NP [Primary Care Provider] - 1 week
[2024-04-03] MEDS: ONDANSETRON 4 MG RAPDIS TABLET SL (20:01)
== END 2024-04-03 20:02 | disposition home or self-care (01) ==
PROVIDERS: Emergency Provider Student in an Organized Health Care Education/Training Program; PCP Nurse Practitioner Family
DX: R11.2 Nausea with vomiting, unspecified (principal); R19.7 Diarrhea, unspecified; F17.200 Nicotine dependence, unspecified, uncomplicated
CPT/HCPCS: 99283; Q0162

== ENCOUNTER 2024-04-06 13:30 | Emergency (ER) | payer OTHER, SELFPAY ==
[2024-04-06 13:33] VITALS: BP 133/89; PULSE 82; TEMP 36.7; O2SAT 97; BMI 23.1
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
[2024-04-06] MEDS: ONDANSETRON PF 4 MG/2 ML VIAL IV (13:56)
[2024-04-06] MEDS: KETOROLAC TROMETHAMINE 30 MG/ML VIAL IVP (13:56)
[2024-04-06] MEDS: CYCLOBENZAPRINE HCL 10 MG TABLET PO (13:57)
== END 2024-04-06 14:35 | disposition home or self-care (01) ==
PROVIDERS: Emergency Provider Student in an Organized Health Care Education/Training Program; PCP Nurse Practitioner Family
DX: R51.9 Headache, unspecified (principal); F17.200 Nicotine dependence, unspecified, uncomplicated
CPT/HCPCS: 96374; 96375; 99284; J1885; J2405

== ENCOUNTER 2024-05-14 01:59 | Emergency (ER) | payer SELFPAY ==
[2024-05-14 02:02] VITALS: BP 144/86; PULSE 75; TEMP 36.8; O2SAT 99; BMI 23.1
--- OUTSIDE RECORDS SUMMARY | 2024-05-14 02:04 | XMS_ITS | CCD ---
Author Organization [facility] CliniSyde Care Team Providers Care Audio Production Engineer Name Role Phone Jaxson Starks Primary Care [...] PHYSICIAN Primary Care Provider Unava ilable Laury, [facility]- Margarita Valera Emergency Provider OSEI Jarrett Attending Provider ALECIA Roach Emergency Provider [phone] JULIA Ornelas Emergency Provider DO Saqib Brantley Admit Provider [phone] DO Saqib Brantley Attending Provider MD Arnel Carlisle Other Provider ALECIA Shahid Other Provider MD Chandler Flood Other Provider MD Nicholas Frias Other Provider AGUILA Castro Other Provider Unavailable DO Ginger Cid Other Provider MD Regine Bingham Other Provider MD Kayli Iglesia Norton Other Provider MD Kellee Lambert Other Provider MD Ernie Jimenez Other Provider ALECIA Ramos Other Provider MD Elizabeth Serrato Other Provider MD Arnel Ibanez Najesteph Other Provider MD Lizette Vega Other Provider Shamika [facility] Sherrie Jolly Other Provider MD Soledad [...] Care Provider Unava ALECIA Holder Emergency Provider [phone] ALECIA Dorsey Attending Provider [phone] ALECIA Dorsey Primary Care Provider MD Nazario Shaw Jr Emergency Provider Nayla Dorsey Primary Care Unavailable Nazario Shaw Jr Admitting Unavailable Nazario Shaw Jr Attending Unavailable Nayla Dorsey Admitting Unavailable Nyala Dorsey Attending Unavailable NO FAMILY, PHYSICIAN Primary Care Unavailable Allergies Allergy Classification Reported Allergen(s) Allergy Type Date of Onset Reaction(s) Facility NEGATED: Highlighted row has been ruled out! (3 sources) natural latex rubber; Translations: [LATEX, NATURAL RUBBER] Drug allergy (disorder) [facility] NEGATED: Highlighted row has been ruled out! (3 sources) No IV Contrast Allergy.; Translations: [IV Dye, Iodine Containing] Drug allergy (disorder) [facility] Medications Current Medications Medication Drug Class(es) Dates Sig (Normalized) Sig (Original) cariprazine 3 mg oral capsule (6 sources) Atypical Antipsychotic Start: 09-22-2023 take 1 capsule by mouth once daily Cariprazine (Vraylar) 3 mg capsule Active 3 MG PO Daily September 21, 2023 11:00pm cephalexin 500 mg oral capsule (2 sources) Cephalosporin Antibacterial Start: 02-06-2023 take 1 capsule by mouth every twelve hours Cephalexin 500 MG 1 capsule Orally twice a day for 10 Jan, Active diphenhydrAMINE hydrochloride 50 mg oral tablet (2 sources) Histamine-1 Receptor Antagonist Start: 03-20-2024 take 1 tablet by mouth once daily at bedtime Diphenhydramine Hcl (Benadryl Allergy) 50 mg tablet Active 50 MG PO Daily at bedtime March 19, 2024 11:00pm Docusate (8 sources) Start: 03-20-2024 docusate sodium (Stool Softener) Active PO March 19, 2024 11:00pm Start: 03-20-2024 docusate sodiu m (Stool Softener) Active PO March 20, 2024 12:00am Start: 11-05-2021 take 2 tablets by mo [facility] every six hours as needed for [...] 17-Apr-2021 Active lamoTRIgine 150 mg oral tablet (2 sources) Mood Stabilizer, Anti-epileptic Agent Start: 03-20-2024 take 1 tablet by mouth once daily Lamotrigine (Lamictal) 150 mg tablet Active 150 MG PO Daily March 19, 2024 11:00pm melatonin 10 mg oral tablet (5 sources) Start: 03-20-2024 take 10 mg by mouth once daily at bedtime Melatonin Active 10 MG PO Daily at bedtime March 19, 2024 11:00pm Start: 04-27-2021 Melatonin TR 1 0 MG Oral Tablet Extended Release Quantity: 28 Refills: 0 Ordered: 27-Apr-2021 DO Start : 27-Apr-2021 Active methylPREDNISolone 4 mg oral tablet (9 sources) Corticosteroid Start: 02-13-2023 methylPREDNISolone 4 MG as directed Orally take as directed for 6 days Jan, Active Multivitamin (Daily Multi-Vitamin) tablet (2 sources) Start: 03-20-2024 take 1 tablet by mouth once daily Multivitamin (Daily Multi-Vitamin) tablet Active 1 TAB PO Daily March 19, 2024 11:00pm Start: 03-20-2024 take 1 tablet by brenna th once daily Multivitamin (Daily Multi-Vitamin) tablet Active 1 TAB PO Daily March 20, 2024 12:00am nystatin [id number] unt/ml oral suspension (2 sources) Polyene Antifungal Start: 02-10-2023 take 4 mL by mouth four times daily Nystatin [id number] UNIT/ML 4 ml swish and swallow Mouth/Throat Four times a day for 10 days Jan, Active predniSONE 20 mg oral tablet (3 sources) Start: 03-07-2023 End: 03-12-2023 take 2 tablets by mouth once daily predniSONE 20 mg Tab 40 mg = 2 tab(s), Oral, Daily, X 5 day(s), # 10 tab(s), Refills(s) 0, Pharmacy: [facility], 198, cm, 03/07/23 16:53:00 EDT, Height/Length Dosing, 87.2, kg, 03/07/23 16:53:00 EDT, Weight Dosing Start Date: 03/07/23 Stop Date: 03/12/23 Status: Ordered Start: 02-06-2023 take 1 tablet by brenna th every twelve hours prednisone 20 MG 1 tablet Orally BID for 5 Jan, Active psyllium husk (Daily Fiber) (2 sources) Start: 03-20-2024 psyllium husk (Daily Fiber) Active PO March 19, 2024 11:00pm Start: 03-20-2024 psyllium husk (Daily Fiber) Active PO March 20, 2024 12:00am venlafaxine 75 mg oral tablet (20 sources) Serotonin and Norepinephrine Reuptake Inhibitor Start: 03-20-2024 take 75 mg by mouth once daily Venlafaxine Active 75 MG PO Daily March 19, 2024 11:00pm Start: 11-17-2023 End: 03-20-2024 take 1 capsule by mouth once daily Venlafaxine Discontinued 0 .ROUTE .COMPLEX 90 November 17, 2023 12:58pm March 20, 2024 11:05am Take 1 capsule by mouth once daily Start: 11-17-2023 End: 03-20-2024 take 1 capsule by mouth once daily Venlafaxine Discontinued 0 .ROUTE .COMPLEX 90 November 17, 2023 1:58pm March 20, 2024 12:05pm Take 1 capsule by mouth once daily Start: 10-06-2023 End: 11-17-2023 take 37.5 mg by mouth once daily Venlafaxine Discontinued 37.5 MG PO Daily October 05, 2023 11:00pm November 17, 2023 12:58pm Start: 09-21-2023 End: 10-06-2023 Venlafaxine (Effexor Xr) 75 mg capsule,extended release 24hr Discontinued 75 MG PO Daily September 20, 2023 11:00pm October 06, 2023 10:21am in addition to 150mg to equal 225mg Start: 03-07-2023 Effexor XR Ora l, Daily, Refills(s) 0 Start Date: 03/07/23 Status: Ordered Start: 10-26-2022 End: 09-21-2023 take 1 capsule by mouth once daily Venlafaxine (Effexor Xr) 150 mg capsule,extended release 24hr Discontinued 225 MG PO Daily February 27, 2023 10:03am September 21, 2023 2:29pm Start: 09-27-2022 End: 10-13-2022 take 1 capsule by mouth once daily in the morning Venlafaxine (Effexor Xr) 75 mg Capsule,Extended Release 24hr Discontinued 75 MG PO Every morning September 26, 2022 11:00pm October 13, 2022 3:03pm Start: 11-03-2021 take 1 capsule by mo [facility] every twenty-four hours Venlafaxine HCl ER 150 MG Oral Capsule Extended Release 24 Hour Quantity: 30 Refills: 0 Ordered: 03-Nov-2021 DO Start : 03-Nov-2021 Active Effexor Active Completed/Discontinued Medications Medication Drug Class(es) Dates Sig (Normalized) Sig (Original) acetaminophen 325 mg oral tablet (10 sources) Start: 10-22-2022 End: 10-23-2022 Acetaminophen (Tylenol) 325 mg Tablet Discontinued 325 MG PO Q65H October 21, 2022 11:00pm October 23, 2022 11:56am calcium polycarbophil 625 mg oral tablet (3 sources) Start: 04-15-2021 Fiber-Lax 625 MG Oral Tablet Quantity: 56 Refills: 0 Ordered: 15-Apr-2021 DO Start : 15-Apr-2021 Active cyclobenzaprine hydrochloride 10 mg oral tablet (18 sources) Muscle Relaxant Start: 02-27-2023 End: 03-20-2024 take 10 mg by mouth three times daily Cyclobenzaprine Discontinued 10 MG PO Three times daily February 26, 2023 11:00pm March 20, 2024 11:05am Start: 02-13-2023 take 1 tablet by brenna th twice daily as needed Cyclobenzaprine HCl 10 MG 1 tablet as needed Orally BID PRN for 10 days Jan, Active Start: 02-13-2023 take 1 tablet by brenna th every eight hours as needed Cyclobenzaprine HCl 10 MG 1 tablet as needed Orally every 8 hours for 5 days Jan, Active DULoxetine 20 mg delayed release oral capsule (19 sources) Serotonin and Norepinephrine Reuptake Inhibitor Start: 10-21-2022 End: 10-26-2022 take 20 mg by mouth once daily Duloxetine Discontinued 20 MG PO Daily October 22, 2022 11:00pm October 26, 2022 10:22am hydrOXYzine pamoate 50 mg oral capsule (3 sources) Antihistamine Start: 11-03-2021 hydrOXYzine Pamoate 50 MG Oral Capsule Quantity: 60 Refills: 0 Ordered: 03-Nov-2021 DO Start : 03-Nov-2021 Active ibuprofen 800 mg oral tablet (8 sources) Nonsteroidal Anti-inflammatory Drug Start: 02-27-2023 End: 09-21-2023 take 800 mg by mouth every eight hours Ibuprofen Discontinued 800 MG PO Q8H February 27, 2023 10:14am September 21, 2023 2:28pm ketorolac tromethamine 10 mg oral tablet (20 sources) Nonsteroidal Anti-inflammatory Drug, Cyclooxygenase Inhibitor Start: 09-21-2023 End: 03-20-2024 take 10 mg by mouth twice daily Ketorolac Discontinued 10 MG PO Twice daily September 20, 2023 11:00pm March 20, 2024 11:05am maximum total duration of 5 days from all oral, intranasal, or parenteral formulations Start: 03-16-2023 take 1 tablet by brenna th twice daily as needed Toradol 10mg 1 tab prn orally bid for 14 days Feb, Active Start: 02-27-2023 End: 09-21-2023 take 10 mg by mouth three times daily Ketorolac Discontinued 10 MG PO Three times daily 10 February 26, 2023 11:00pm September 21, 2023 2:28pm LORazepam 1 mg oral tablet (9 sources) Benzodiazepine Start: 10-31-2023 End: 03-20-2024 take 1 mg by mouth once daily Lorazepam Discontinued 1 MG PO Daily 15 November 09, 2023 9:55am March 20, 2024 11:05am lurasidone hydrochloride 40 mg oral tablet (20 sources) Atypical Antipsychotic Start: 09-21-2023 End: 09-22-2023 take 40 mg by mouth once daily Lurasidone Discontinued 40 MG PO Daily September 20, 2023 11:00pm September 22, 2023 1:31pm Start: 03-07-2023 Latuda Oral, D aily, Refills(s) 0 Start Date: 03/07/23 Status: Ordered Start: 02-27-2023 End: 09-21-2023 Lurasidone Discontinued MG T ABLET February 26, 2023 11:00pm September 21, 2023 2:28pm Start: 02-27-2023 End: 09-21-2023 Lurasidone Discontinued MG [...] 05-Nov-2021 Active naproxen 500 mg oral tablet (19 sources) Nonsteroidal Anti-inflammatory Drug Start: 10-22-2022 End: 10-26-2022 take 500 mg by mouth twice daily at mealtime Naproxen Discontinued 500 MG PO Twice daily with meals October 22, 2022 11:00pm October 26, 2022 10:22am 24 hr nicotine 0.875 mg/hr transdermal system (9 sources) Cholinergic Nicotinic Agonist Start: 10-26-2022 End: 02-27-2023 Nicotine Discontinued 1 EACH TRANSDERML Daily October 25, 2022 11:00pm February 27, 2023 10:04am ofloxacin 3 mg/ml otic solution (11 sources) Quinolone Antimicrobial Start: 10-13-2022 End: 10-21-2022 Ofloxacin Discontinued 5 DROPS EAR-RIGHT Twice daily 10 7 October 12, 2022 11:00pm October 21, 2022 10:01pm traZODone hydrochloride 50 mg oral tablet (9 sources) Serotonin Reuptake Inhibitor Start: 10-26-2022 End: 02-27-2023 take 50 mg by mouth once daily at bedtime Trazodone Discontinued 50 MG PO Daily at bedtime October 25, 2022 11:00pm February 27, 2023 10:04am Problems Active Problems Problem Classification Problem Date Documented Da te Episodic/Chronic Abdominal pain (12 sources) Abdominal pain; Translations: [Bilateral pain of inguinal region] Onset: 3 Resolved: 6 02-26-2014 Episodic Anxiety disorders (20 sources) Anxiety disorder; Translations: [Anxiety disorder, unspecified] Onset: 1 04-10-2020 Chronic Complications of surgical procedures or medical care (13 sources) Drug therapy finding; Translations: [Unspecified adverse effect of drug or medicament, initial encounter] 09-27-2022 Episodic Conditions associated with dizziness or vertigo (12 sources) Dizziness; Translations: [Dizziness and giddiness] 09-27-2022 Episodic Disorders of teeth and jaw (20 sources) Arthralgia of temporomandibular joint; Translations: [Arthralgia of temporomandibular joint, unspecified side] 02-27-2023 Episodic Esophageal disorders (2 sources) Gastroesophageal reflux disease; Translations: [Gastro-esophageal reflux disease without esophagitis] 03-20-2024 Chronic Gastrointestinal hemorrhage (3 sources) Melena; Translations: [Rectal hemorrhage] Onset: 3 03-20-2024 Episodic Lymphadenitis (1 source) Enlarged lymph nodes, unspecified Episodic Mood disorders (20 sources) Major depressive disorder; Translations: [Major depressive disorder, recurrent, mild] Onset: 1 04-10-2020 Chronic Nausea and vomiting (1 source) Nausea; Translations: [Nausea] Onset: 3 Episodic Other connective tissue disease (1 source) Musculoskeletal symptom; Translations: [Other symptoms and signs involving the musculoskeletal system] Onset: 3 Episodic Other ear and sense organ disorders (11 sources) Otitis externa; Translations: [Unspecified otitis externa, unspecified ear] 10-13-2022 Chronic Other gastrointestinal disorders (3 sources) Chronic constipation; Translations: [Constipation, unspecified] Episodic Other gastrointestinal disorders (1 source) Other constipation; Translations: [Other constipation] Onset: 3 Episodic Other hereditary and degenerative nervous system conditions (4 sources) Restless legs; Translations: [Restless legs syndrome] 10-06-2023 Chronic Other hereditary and degenerative nervous system conditions (2 sources) Restless legs syndrome; Translations: [Restless legs syndrome (RLS)] 10-06-2023 Chronic Other nutritional; endocrine; and metabolic disorders (2 sources) Excessive thirst; Translations: [Polydipsia] Episodic Other nutritional; endocrine; and metabolic disorders (1 source) Polydipsia Episodic Other screening for suspected conditions (not mental disorders or infectious disease) (11 sources) Electrocardiogram abnormal; Translations: [Abnormal electrocardiogram [ECG] [EKG]] 10-23-2022 Episodic Other upper respiratory disease (1 source) Other specified disorders of nose and nasal sinuses Episodic Other upper respiratory infections (5 sources) Sore throat symptom; Translations: [Acute pharyngitis] Resolved: 6 Episodic Poisoning by other medications and drugs (19 sources) Intentional drug overdose; Translations: [Intentional Drug Overdose] 07-02-2019 Episodic Poisoning by psychotropic agents (3 sources) Benzodiazepine overdose; Translations: [Benzodiazepine Overdose] 03-26-2020 Episodic Residual codes; unclassified (2 sources) Insomnia; Translations: [Insomnia, unspecified] 03-20-2024 Episodic Residual codes; unclassified (2 sources) Insomnia, unspecified; Translations: [Insomnia, unspecified] 03-20-2024 Episodic [...] source) Polydipsia; Translations: [Polydipsia] Onset: 3 Episodic NEGATED: Highlighted row has not occurred!Residual codes; unclassified (1 source) Disease Episodic Results Test Name Value Interpretation Reference Range Facility Basophils Auto (Bld) [#/Vol] on 01-17-2024 Basophils (Bld) [#/Vol] 0.0 10 3/uL 0.0-0.1 [facility] Basophils/100 WBC Auto (Bld) on 01-17-2024 Basophils/100 WBC (Bld) 0.4 % 0.2-2.0 [facility] Eosinophils/100 WBC Auto (Bl d)on 01-17-2024 Eosinophils/100 WBC (Bld) 1.8 % 0.9-7.0 [facility] Erythrocyte distribution wid th Auto (RBC) [Ratio]on 01-17-2024 Erythrocyte distribution width (RBC) [Ratio] 12.2 % 11.0-15.0 [facility] Estimated glomerular filtrat ion rate (GFR) non- Americanon 01-17-2024 GFR/1.73 sq M.predicted among non-blacks MDRD (S/P/Bld) [Vol rate/Area] mL/min/{1.73_m2} >=60 [facility] Globulin Calc (S) [Mass/Vol] on 01-17-2024 Globulin (S) [Mass/Vol] 3.4 g/dL F [facility] Hematocrit Auto (Bld) [Volum e fraction]on 01-17-2024 Hematocrit (Bld) [Volume fraction] 49.3 % 42.0-54.0 [facility] Hemoglobin [Mass/volume] in Bloodon 01-17-2024 Hemoglobin (Bld) [Mass/Vol] 16.1 g/dL 14.0-18.0 [facility] Hemoglobin.gastrointestinal [Presence] in Stoolon 01-17-2024 Hemoglobin.gastrointest inal Ql (Stl) Positive Abnormal [facility] Laboratory - Chemistry and C hemistry - challengeon 01-17-2024 Albumin [Mass/Vol] 4.4 g/dL 3.4-5.0 [facility] ALP [Catalytic activity/Vol] 105 U/L 46-116 [facility] ALT [Catalytic activity/Vol] 87 U/L High 16-63 [facility] AST [Catalytic activity/Vol] 151 U/L High 15-37 [facility] Bilirubin [Mass/Vol] 0.5 mg/dL 0.2-1.0 [facility] Calcium [Mass/Vol] 9.3 mg/dL 8.5-10.1 [facility] Chloride [Moles/Vol] 104 mmol/L 98-107 [facility] CO2 [Moles/Vol] 31.2 mmol/L 21.0-32.0 [facility] Creatinine [Mass/Vol] 1.23 mg/dL 0.70-1.30 [facility] GFR/1.73 sq M.predicted MDRD (S/P/Bld) [Vol rate/Area] mL/min/{1.73_m2} >=60 [facility] Glucose [Mass/Vol] 104 mg/dL 74-106 [facility] Potassium [Moles/Vol] 3.9 mmol/L 3.5-5.1 [facility] Protein [Mass/Vol] 7.8 g/dL 6.4-8.2 [facility] Sodium [Moles/Vol] 144 mmol/L 136-145 [facility] Urea nitrogen [Mass/Vol] 19.0 mg/dL High 7.0-18.0 [facility] Urea nitrogen/Creatinine [Mass ratio] 15.4 mg/mg [facility] Laboratory - Hematology and Cell countson 01-17-2024 Immature granulocytes/100 WBC (Bld) 0.4 % 0.0-0.5 [facility] Leukocytes [#/volume] correc jayleen for nucleated erythrocytes in Blood by Automated counon 01-17-2024 WBC corrected for nucl RBC Auto (Bld) [#/Vol] 5.7 10 3/uL 4.0-11.0 [facility] Lymphocytes Auto (Bld) [#/Vo l]on 01-17-2024 Lymphocytes (Bld) [#/Vol] 1.6 10 3/uL 1.2-3.8 [facility] Lymphocytes/100 WBC Auto (Bl d)on 01-17-2024 Lymphocytes/100 WBC (Bld) 28.0 % 20.5-60.0 [facility] MCH Auto (RBC) [Entitic mass ]on 01-17-2024 MCH (RBC) [Entitic mass] 29.4 pg 25.9-34.0 [facility] MCHC Auto (RBC) [Mass/Vol]on 01-17-2024 MCHC (RBC) [Mass/Vol] 32.7 g/dL 29.9-35.2 [facility] MCV Auto (RBC) [Entitic vol] on 01-17-2024 MCV (RBC) [Entitic vol] 90.1 fL 80.0-94.0 [facility] Monocytes Auto (Bld) [#/Vol] on 01-17-2024 Monocytes (Bld) [#/Vol] 0.6 10 3/uL 0.3-0.8 [facility] Monocytes/100 WBC Auto (Bld) on 01-17-2024 Monocytes/100 WBC (Bld) 10.2 % 1.7-12.0 [facility] Neutrophils Auto (Bld) [#/Vo l]on 01-17-2024 Neutrophils (Bld) [#/Vol] 3.4 10 3/uL 1.4-6.5 [facility] Neutrophils/100 WBC Auto (Bl d)on 01-17-2024 Neutrophils/100 WBC (Bld) 59.2 % 43.0-75.0 [facility] No Panel Informationon 01-16 Eosinophils # (Auto) 0.1 10 3/uL 0.0-0.7 [facility] Immature Granulocyte # (Auto) 0.02 10 3/uL 0.00-0.03 [facility] Platelet mean volume Auto (B ld) [Entitic vol]on 01-17-2024 Platelet mean volume (Bld) [Entitic vol] 10.7 fL 9.5-13.5 [facility] Platelets Auto (Bld) [#/Vol] on 01-17-2024 Platelets (Bld) [#/Vol] 207 10 3/uL 150-450 [facility] RBC Auto (Bld) [#/Vol]on RBC (Bld) [#/Vol] 5.47 10 6/uL 4.70-6.10 [facility] Serum or plasma albumin/glob ulin mass ratioon 01-17-2024 Albumin/Globulin [Mass ratio] 1.3 {ratio} [facility] Serum or plasma anion gap de terminationon 01-17-2024 Anion gap [Moles/Vol] 12.7 mmol/L [facility] ECG 12 lead ECGon 11-14-2023 ECG 12 lead ECG [facility] [place] [address] Electrocardiograph Report Signed Patient: Cameron Teresa MR#: [id number] : 2005 Acct:[id number] Age/Sex: 18 / M ADM Date: 11/14/23 Loc: ER Room: Type: [facility] ER Attending Dr: Ordering Provider: Nazario Shaw [...] axis Borderline ECG Confirmed by Sophie Crandall ([id number]) on 11/15/2023 4:41:42 PM Referred By: Electronically Signed By:Sophie Crandall Transcribed By: MUS Signed By Sophie Crandall MD 4 [id number] Normal [facility] XR chest 1V portableon 11-13 XR chest 1V portable [facility] [place] [address] XRay Report Signed Patient: Cameron Teresa MR#: [id number] : 2005 Acct:[id number] Age/Sex: 18 / M ADM Date: 11/14/23 Loc: ER Room: Type: [facility] ER Attending Dr: Copies to: Nazario Shaw Jr, MD Ordering Provider: Nazario Shaw Jr, MD Date of Service: 11/14/23 XR/XR chest 1V portable: Overdose SINGLE VIEW CHEST CLINICAL HISTORY: Overdose. COMPARISON: None FINDINGS: Heart normal in size. Lungs are clear. No free air. XR/XR chest 1V portable IMPRESSION: NO ACUTE FINDINGS Impression dictated by: Azeem Sanchez Jr., D.OJorge11/14/2023 9:53 AM Dictation Location: [place] [address] Transcribed By: [facility] 11/14/23952 Dictated By: Azeem Sanchez Jr, DO 11/14/23952 Signed By: 11/14/23952 Normal [facility] Alanine aminotransferase [En zymatic activity/volume] in Serum or PlasmaOrdered By: Nayla Dorsey on 05-17-2023 ALT [Catalytic activity/Vol] 19 U/L Normal [facility] Comment on above: Order Comment: Reaso n for Exam Polydipsia Performed By: #### C MP #### [facility] [address] [place] [address] [place] Albumin [Mass/volume] in Ser um or Plasma by Bromocresol green (BCG) dye binding methoOrdered By: Nayla Dorsey on 05-17-2023 Albumin BCG dye [Mass/Vol] 5.0 g/dL 3.5-5.7 [facility] Alkaline phosphatase [Enzyma tic activity/volume] in Serum or PlasmaOrdered By: Nayla Dorsey on 05-17-2023 ALP [Catalytic activity/Vol] 85 U/L Normal 34-104 [facility] Comment on above: Order Comment: Reaso n for Exam Polydipsia Result Comment: PERF ORMED BY: [place] [address] PATHOLOGIST [employer] ANH SPARKS M.D. Performed By: #### C MP #### [facility] [address] [place] [address] Aspartate aminotransferase [ Enzymatic activity/volume] in Serum or PlasmaOrdered By: Nayla Dorsey on 05-17-2023 AST [Catalytic activity/Vol] 18 U/L Normal 13-39 [facility] Comment on above: Order Comment: Reaso n for Exam Polydipsia Performed By: #### C MP #### [facility] [address] [place] [address] [place] Bilirubin.total [Mass/volume ] in Serum or PlasmaOrdered By: Nayla Dorsey on 05-17-2023 Bilirubin [Mass/Vol] 0.6 mg/dL Normal 0.3-1.0 [facility] Comment on above: Order Comment: Reaso n for Exam Polydipsia Performed By: #### C MP #### [facility] [address] [place] [address] [place] Calcium [Mass/volume] in Ser um or PlasmaOrdered By: Nayla Dorsey on 05-17-2023 Calcium [Mass/Vol] 10.1 mg/dL Normal 8.6-10.3 [facility] Comment on above: Order Comment: Reaso n for Exam Polydipsia Performed By: #### C MP #### [place] [address] [place] Carbon dioxide, total [Moles /volume] in Serum or PlasmaOrdered By: Nayla Dorsey on 05-17-2023 CO2 [Moles/Vol] 29.1 mmol/L Normal 21.0-31.0 [facility] Comment on above: Order Comment: Reaso n for Exam Polydipsia Performed By: #### C MP #### [place] [address] [place] Chloride [Moles/volume] in S laura or PlasmaOrdered By: Nayla Dorsey on 05-17-2023 Chloride [Moles/Vol] 104 mmol/L Normal 98-107 [facility] Comment on above: Order Comment: Reaso n for Exam Polydipsia Performed By: #### C MP #### [address] Comprehensive Metabolic Pane aleks 05-17-2023 Albumin [Mass/Vol] 5.0 g/dL Normal 3.5-5.7 [facility] Comment on above: Order Comment: Reaso n for Exam Polydipsia Performed By: #### C MP #### [place] [address] [place] GFR/1.73 sq M.predicted MDRD (S/P/Bld) [Vol rate/Area] mL/min/{1.73_m2} Normal [facility] Comment on above: Order Comment: Reaso n for Exam Polydipsia Performed By: #### C MP #### [place] [address] [place] Creatinine [Mass/volume] in Serum or PlasmaOrdered By: Nayla Dorsey on 05-17-2023 Creatinine [Mass/Vol] 1.21 mg/dL Normal 0.70-1.30 [facility] Comment on above: Order Comment: Reaso n for Exam Polydipsia Performed By: #### C MP #### [place] [address] [place] Glucose [Mass/volume] in Ser um or PlasmaOrdered By: Nayla Dorsey on 05-17-2023 Glucose [Mass/Vol] 96 mg/dL Normal 70-100 [facility] Comment on above: ADA recommended refe rence rangeRandom Glucose Reference Range is dependent on time and content of last meal. Glucose of more than 200 mg/dL in a nonstressed, ambulatory subject supports the diagnosis of Diabetes Mellitus. Order Comment: Reaso n for Exam Polydipsia Result Comment: [place] om Glucose Reference Range is dependent on time and content of last meal. Glucose of more than 200 mg/dL in a nonstressed, ambulatory subject supports the diagnosis of Diabetes Mellitus. ADA recommended reference range Performed By: #### C MP #### [address] No Panel InformationOrdered By: Nayla Dorsey on 05-17-2023 Estimated GFR (CKD-EPI) > 60.0 mL/Min [facility] Creatinine Clearance (Chem N/A [facility] Potassium [Moles/volume] in Serum or PlasmaOrdered By: Nayla Dorsey on 05-17-2023 Potassium [Moles/Vol] 4.9 mmol/L Normal 3.5-5.1 [facility] Comment on above: Order Comment: Reaso n for Exam Polydipsia Performed By: #### C MP #### [address] Protein [Mass/volume] in Ser um or PlasmaOrdered By: Nayla Dorsey on 05-17-2023 Protein [Mass/Vol] 7.6 g/dL Normal 6.4-8.9 [facility] Comment on above: Order Comment: Reaso n for Exam Polydipsia Performed By: #### C MP #### [address] Serum globulin measurement b y calculation (mass/volume)Ordered By: Nayla Dorsey on 05-17-2023 Globulin (S) [Mass/Vol] 2.6 g/dL Normal [facility] Comment on above: Order Comment: Reaso n for Exam Polydipsia Performed By: #### C MP #### [facility] [address] Serum or plasma albumin/glob ulin mass ratioOrdered By: Nayla Dorsey on 05-17-2023 Albumin/Globulin [Mass ratio] 1.9 {ratio} Normal [facility] Comment on above: Order Comment: Reaso n for Exam Polydipsia Performed By: #### C MP #### [facility] [address] [place] [address] Serum or plasma anion gap de terminationOrdered By: Nayla Dorsey on 05-17-2023 Anion gap [Moles/Vol] 12.8 mmol/L Normal 6.0-15.0 [facility] Comment on above: Order Comment: Reaso n for Exam Polydipsia Performed By: #### C MP #### [address] Sodium [Moles/volume] in Ser um or PlasmaOrdered By: Nayla oDrsey on 05-17-2023 Sodium [Moles/Vol] 141 mmol/L Normal 136-145 [facility] Comment on above: Order Comment: Reaso n for Exam Polydipsia Performed By: #### C MP #### [address] Urea nitrogen [Mass/volume] in Serum or PlasmaOrdered By: Nayla Dorsey on 05-17-2023 Urea nitrogen [Mass/Vol] 15 mg/dL Normal 7-25 [facility] Comment on above: Order Comment: Reaso n for Exam Polydipsia Performed By: #### C MP #### [address] C Urineon 04-06-2023 Bacteria identified Cx Nom [...] Locations R1: This test was performed at: [facility], [address] [place] [address], [id number] , [place], Normal [facility] Comment on above: Performed By: #### 2 [id number] #### [facility] [address] [place] [address] Family Medicine Office/Clini c Noteon 04-04-2023 Family [...] agree with above documented HPI by medical translator. Portions of this record may have been created with voice recognition artificial intelligence software, specifically [employer], [employer] and or [employer]. Substitutions may have occurred due to the inherent limitations of voice recognition and artificial intelligence software. Patient is a 17-year-old male who presented to [facility], for sore throat, possible thrush, patient [...] having chills, and headaches, has been taking ejez-kqp-fcoatpl Benadryl, and ibuprofen, patient states he has [...] within normal limits. 17-year-old male presented to [facility], for oral thrush, and dysuria, symptoms [...] day(s), # 240 mL, Refills(s) 0, Pharmacy: [facility], 197, cm, 04/04/23 9:39:00 EDT, Height/Length Dosing, 86, kg, 04/04/23 9:39:00 EDT, Weight Dosing Group A Strep by PCR 2. 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 Normal [facility] Comment on above: Result Comment: Elec tronically Signed By: JAYDEN DUMONT, JOHN\.br\Date and Time Signed: 04/04/23 10:30 EDT Grp A Strp PCRon 04-04-2023 Group A Strep Negative Normal [facility] Comment on above: Result Comment: Test ing performed using DNA amplification. Performed By: #### 1 [id number] #### [facility] [address] [place] [address] Grp A Strp Intrl Ctrl Pass Normal [facility] Comment on above: Performed By: #### 1 [id number] #### [facility] [address] [place] [address] Patient Educationon 04-04-20 Patient Education Infectious Disease [...] mouth. General instructions ? Take or use vdjy-hie-wcgupxt and prescription medicines only as told by your doctor. ? Eat plain yogurt that has live cultures in it. Read the label to make sure that there are live cultures in your yogurt. ? If you wear false teeth: ? Take them out before you go to bed. ? Fromberg them well. ? Soak them in a press cleaner. ? Rinse your mouth with warm salt-water [...] provider. Document Revised: 02/10/2022 Document Reviewed: 04/18/2020 [employer] Patient Education ? 2022 [employer]. Pulmonary Medicine E-Cigarette or Vaping Use-Associated Lung [...] symptoms? Sympt (more content not included)... Normal [facility] Patient Letter FTMCon 2022 Patient Letter [facility] [address], [place] [address] April 04, 2023 CAMERON BEBA [address] [place] [address] : 2005 Please excuse CAMERON TERESA from work . Date and/or Time of Absence: From: 04/04/23 May return to work on: 04/05/23 Restrictions: None Comments: Please excuse due to an acute illness. Provider Signature: John Giles PA-C [facility] [address] [place] [address] [facility] [place] 03-08-2023 Consent [phone] [id number] #[id number] [facility] Family Medicine Office/Clini c Noteon 03-08-2023 Family [...] with voice recognition software. Occasional wrong-word or ?xwgps-z-bffl? substitutions may have occurred due to the inherent limitations of voice recognition software. 17 yo male presents today with cc of head, neck, and jaw pain. States hx of TMJ, states has an appointment next month to see a specialist, but states his pain is very bad. Patient states that he is scheduled on March 11 for wisdom teeth removal. States [...] of. Patient states he was seen at [facility] about a month or so ago at [...] taking prednisone. (more content not included)... Normal [facility] Comment on above: Result Comment: Elec tronically [...] not chew gum. General instructions ? Take axfr-nwh-teanjyn and prescription medicines only as told by [...] Where to find more information ? National [place] [employer]io[employer] Research: www.nidcr.nih.gov Contact [...] provider. Document Revised: 01/24/2022 Document Reviewed: 01/24/2022 [employer]Comm[employer] Patient Education ? 2022 [employer] Cervical Sprain A cervical sprain is [...] nerves (ner (more content not included)... Normal [facility] COVID Quick Testingon 2022 Result Negative [employer] Other Quick Strepon 02-06-2023 S. pyogenes Org specific cx Ql (Throat) Negative [employer] Other Quick Strep [place] [employer] Other Erythrocyte sedimentation ra te by Photometric methodOrdered By: Mio Nicholson on 10-23-2022 ESR Photometric method (Bld) [Velocity] 2 mm/hr 0-14 [facility] Troponin I.cardiac [Mass/vol ume] in Serum or Plasma by Detection limit <= 0.01 ng/Ordered By: Mio Nicholson on 10-23-2022 Troponin I.cardiac DL <= 0.01 ng/mL [Mass/Vol] 3.0 pg/mL 0.0-20.0 [facility] Alanine aminotransferase [En zymatic activity/volume] in Serum or PlasmaOrdered By: Saqib Brantley on 10-22-2022 ALT [Catalytic activity/Vol] 17 U/L 7-52 [facility] Albumin [Mass/volume] in Ser um or Plasma by Bromocresol green (BCG) dye binding methoOrdered By: Saqib Brantley on 10-22-2022 Albumin BCG dye [Mass/Vol] 4.4 g/dL 3.5-5.7 [facility] Alkaline phosphatase [Enzyma tic activity/volume] in Serum or PlasmaOrdered By: Saqib Brantley on 10-22-2022 ALP [Catalytic activity/Vol] 69 U/L 34-104 [facility] Aspartate aminotransferase [ Enzymatic activity/volume] in Serum or PlasmaOrdered By: Saqib Brantley on 10-22-2022 AST [Catalytic activity/Vol] 16 U/L 13-39 [facility] Basophils Auto (Bld) [#/Vol] Ordered By: Saqib Brantley on 10-22-2022 Basophils (Bld) [#/Vol] 0.0 10*3/uL 0.0-0.2 [facility] Basophils/100 WBC Auto (Bld) Ordered By: Saqib Brantley on 10-22-2022 Basophils/100 WBC (Bld) 0.4 % . F [facility] Bilirubin.total [Mass/volume ] in Serum or PlasmaOrdered By: Saqib Brantley on 10-22-2022 Bilirubin [Mass/Vol] 0.6 mg/dL 0.3-1.0 [facility] Calcium [Mass/volume] in Ser um or PlasmaOrdered By: Saqib Brantley on 10-22-2022 Calcium [Mass/Vol] 8.7 mg/dL 8.6-10.3 [facility] Carbon dioxide, total [Moles /volume] in Serum or PlasmaOrdered By: Saqib Brantley on 10-22-2022 CO2 [Moles/Vol] 24.7 mmol/L 21.0-31.0 [facility] Chloride [Moles/volume] in S laura or PlasmaOrdered By: Saqib Brantley on 10-22-2022 Chloride [Moles/Vol] 107 mmol/L 98-107 [facility] Creatine kinase [Enzymatic a ctivity/volume] in Serum or PlasmaOrdered By: Saqib Brantley on 10-22-2022 CK [Catalytic activity/Vol] 173 U/L 30-223 [facility] Creatine kinase.MB [Mass/vol ume] in Serum or PlasmaOrdered By: Saqib Brantley on 10-22-2022 CK.MB [Mass/Vol] 1.7 ng/mL 0.6-6.3 [facility] Creatinine [Mass/volume] in Serum or PlasmaOrdered By: Saqib Brantley on 10-22-2022 Creatinine [Mass/Vol] 1.00 mg/dL 0.70-1.30 [facility] Eosinophils Auto (Bld) [#/Vo l]Ordered By: Saqib Brantley on 10-22-2022 Eosinophils (Bld) [#/Vol] 0.1 10*3/uL 0.0-0.45 [facility] Eosinophils/100 WBC Auto (Bl d)Ordered By: Saqib Brantley on 10-22-2022 Eosinophils/100 WBC (Bld) 1.0 % . [facility] Erythrocyte distribution wid th Auto (RBC) [Ratio]Ordered By: Saqib Brantley on 10-22-2022 Erythrocyte distribution width (RBC) [Ratio] 13.7 % 12.0-14.8 [facility] Globulin Calc (S) [Mass/Vol] Ordered By: Saqib Brantley on 10-22-2022 Globulin (S) [Mass/Vol] 2.4 g/dL F [facility] Glucose Glucometer (BldC) [M ass/Vol]Ordered By: Saqib Brantley on 10-22-2022 Glucose [Mass/Vol] 74 mg/dL [facility] Comment on above: Random Glucose Refer ence Range is dependent on time and content of last meal. Glucose of more than 200 mg/dL in a nonstressed, ambulatory subject supports the diagnosis of Diabetes Mellitus. Glucose [Mass/volume] in Ser um or PlasmaOrdered By: Saqib Brantley on 10-22-2022 Glucose [Mass/Vol] 91 mg/dL 70-100 [facility] Comment on above: ADA recommended refe rence rangeRandom Glucose Reference Range is dependent on time and content of last meal. Glucose of more than 200 mg/dL in a nonstressed, ambulatory subject supports the diagnosis of Diabetes Mellitus. Hematocrit Auto (Bld) [Volum e fraction]Ordered By: Saqib Brantley on 10-22-2022 Hematocrit (Bld) [Volume fraction] 46.1 % 38.8-50.0 [facility] Hemoglobin [Mass/volume] in BloodOrdered By: Saqib Brantley on 10-22-2022 Hemoglobin (Bld) [Mass/Vol] 15.7 g/dL 13.0-17.0 [facility] Leukocytes [#/volume] correc jayleen for nucleated erythrocytes in Blood by Automated counOrdered By: Saqib Brantley on 10-22-2022 WBC corrected for nucl RBC Auto (Bld) [#/Vol] 10.5 10*3/uL 4.1-10.5 [facility] Lymphocytes Auto (Bld) [#/Vo l]Ordered By: Saqib Brantley on 10-22-2022 Lymphocytes (Bld) [#/Vol] 1.8 10*3/uL 1.00-4.8 [facility] Lymphocytes/100 WBC Auto (Bl d)Ordered By: Saqib Brantley on 10-22-2022 Lymphocytes/100 WBC (Bld) 17.4 % . [facility] MCH Auto (RBC) [Entitic mass ]Ordered By: Saqib Brantley on 10-22-2022 MCH (RBC) [Entitic mass] 29.5 pg 27.5-35.2 [facility] MCHC Auto (RBC) [Mass/Vol]Or dered By: Saqib Brantley on 10-22-2022 MCHC (RBC) [Mass/Vol] 34.0 g/dL 32.5-35.6 [facility] MCV Auto (RBC) [Entitic vol] Ordered By: Saqib Brantley on 10-22-2022 MCV (RBC) [Entitic vol] 86.7 fL 83.5-101 F [facility] Monocytes Auto (Bld) [#/Vol] Ordered By: Saqib Brantley on 10-22-2022 Monocytes (Bld) [#/Vol] 0.7 10*3/uL 0.0-0.8 [facility] Monocytes/100 WBC Auto (Bld) Ordered By: Saqib Brantley on 10-22-2022 Monocytes/100 WBC (Bld) 7.1 % . F [facility] Neutrophils Auto (Bld) [#/Vo l]Ordered By: Saqib Brantley on 10-22-2022 Neutrophils (Bld) [#/Vol] 7.7 10*3/uL 1.8-7.7 [facility] Neutrophils/100 WBC Auto (Bl d)Ordered By: Saqib Brantley on 10-22-2022 Neutrophils/100 WBC (Bld) 74.1 % . [facility] No Panel InformationOrdered By: Saqib Brantley on 10-22-2022 Bedside Glucose Comment Glu2: cleaned meter [facility] Estimated GFR (CKD-EPI) > 60.0 mL/Min [facility] Creatinine Clearance (Chem 143.69 [facility] Nucleated erythrocytes [Pres ence] in Blood by Automated countOrdered By: Saqib Brantley on 10-22-2022 Nucleated RBC Auto Ql (Bld) 0.1 /100{WBC} 0-0.5 [facility] Platelet mean volume Auto (B ld) [Entitic vol]Ordered By: Saqib Brantley on 10-22-2022 Platelet mean volume (Bld) [Entitic vol] 9.3 fL 6.6-10.1 [facility] Platelets Auto (Bld) [#/Vol] Ordered By: Saqib Brantley on 10-22-2022 Platelets (Bld) [#/Vol] 174 10*3/uL 150-450 [facility] Potassium [Moles/volume] in Serum or PlasmaOrdered By: Saqib Brantley on 10-22-2022 Potassium [Moles/Vol] 3.9 mmol/L 3.5-5.1 [facility] Protein [Mass/volume] in Ser um or PlasmaOrdered By: Saqib Brantley on 10-22-2022 Protein [Mass/Vol] 6.8 g/dL 6.4-8.9 [facility] RBC Auto (Bld) [#/Vol]Ordere d By: Saqib Brantley on 10-22-2022 RBC (Bld) [#/Vol] 5.32 10*6/uL 3.90-5.60 [facility] Serum or plasma albumin/glob ulin mass ratioOrdered By: Saqib Brantley on 10-22-2022 Albumin/Globulin [Mass ratio] 1.8 {ratio} [facility] Serum or plasma anion gap de terminationOrdered By: Saqib Brantley on 10-22-2022 Anion gap [Moles/Vol] 10.2 mmol/L 6.0-15.0 [facility] Serum or plasma creatine kin ase MB (CKMB)/total creatine kinase (CK) ratio by calculaOrdered By: Saqib Brantley on 10-22-2022 CK.MB Calc [Catalytic fraction] 0.9 % 0.00-2.50 [facility] Sodium [Moles/volume] in Ser um or PlasmaOrdered By: Saqib Brantley on 10-22-2022 Sodium [Moles/Vol] 138 mmol/L 136-145 [facility] Urea nitrogen [Mass/volume] in Serum or PlasmaOrdered By: Saqib Brantley on 10-22-2022 Urea nitrogen [Mass/Vol] 16 mg/dL 7 [facility] WBC Auto (Bld) [#/Vol]Ordere d By: Saqib Brantley on 10-22-2022 WBC (Bld) [#/Vol] 10.5 10*3/uL 4.1-10.5 [facility] Acetaminophen [Mass/volume] in Serum or PlasmaOrdered By: Mehdi Ornelas on 10-21-2022 Acetaminophen [Mass/Vol] 0.7 ug/mL 10.0-30.0 [facility] Alanine aminotransferase [En zymatic activity/volume] in Serum or PlasmaOrdered By: Mehdi Ornelas on 10-21-2022 ALT [Catalytic activity/Vol] 19 U/L 7 [facility] Albumin [Mass/volume] in Ser um or Plasma by Bromocresol green (BCG) dye binding methoOrdered By: Mehdi Ornelas on 10-21-2022 Albumin BCG dye [Mass/Vol] 4.9 g/dL 3.5-5.7 [facility] Alkaline phosphatase [Enzyma tic activity/volume] in Serum or PlasmaOrdered By: Mehdi Ornelas on 10-21-2022 ALP [Catalytic activity/Vol] 82 U/L 34-104 [facility] Amphetamine Screen Ql (U)Ord ered By: Mehdi Ornelas on 10-21-2022 Amphetamines Ql (U) Negative Negative [facility] Aspartate aminotransferase [ Enzymatic activity/volume] in Serum or PlasmaOrdered By: Mehdi Ornelas on 10-21-2022 AST [Catalytic activity/Vol] 19 U/L 13-39 [facility] Automated erythrocytes count in urine sediment (number/area)Ordered By: Mehdi Ornelas on 10-21-2022 RBC Auto (Urine sed) [#/Area] 0-1 [HPF] 0-4 [facility] Automated leukocytes count i n urine sediment (number/area)Ordered By: Mehdi Ornelas on 10-21-2022 WBC Auto (Urine sed) [#/Area] None seen [HPF] 0-4 [facility] Barbiturates [Presence] in U rine by Screen methodOrdered By: Mehdi Ornelas on 10-21-2022 Barbiturates Screen Ql (U) Negative Negative [facility] Basophils Auto (Bld) [#/Vol] Ordered By: Mehdi Ornelas on 10-21-2022 Basophils (Bld) [#/Vol] 0.0 10*3/uL 0.0-0.2 [facility] Basophils/100 WBC Auto (Bld) Ordered By: Mehdi Ornelas on 10-21-2022 Basophils/100 WBC (Bld) 0.3 % . F [facility] Benzodiazepines Screen Ql (U )Ordered By: Mehdi Ornelas on 10-21-2022 Benzodiazepines Ql (U) Negative Negative [facility] Benzoylecgonine [Presence] i n Urine by Screen methodOrdered By: Mehdi Ornelas on 10-21-2022 Benzoylecgonine Screen Ql (U) Negative Negative [facility] Bilirubin Test strip Ql (U)O rdered By: Mehdi Ornelas on 10-21-2022 Bilirubin Ql (U) Negative Negative [facility] Bilirubin.total [Mass/volume ] in Serum or PlasmaOrdered By: Mehdi Ornelas on 10-21-2022 Bilirubin [Mass/Vol] 0.4 mg/dL 0.3-1.0 [facility] Calcium [Mass/volume] in Ser um or PlasmaOrdered By: Mehdi Ornelas on 10-21-2022 Calcium [Mass/Vol] 9.9 mg/dL 8.6-10.3 [facility] Cannabinoids [Presence] in U rine by Screen methodOrdered By: Mehdi Ornelas on 10-21-2022 Cannabinoids Screen Ql (U) Negative Negative [facility] Comment on above: These are unconfirme d results and should not be used for legal purposes. Drug Cut-Off Concentration: AMPH 1000 ng/mL MACEY 200 ng/mL MAR 200 ng/mL COCM 300 ng/mL OP 300 ng/mL PCP 25 ng/mL THC 20 ng/mL Carbon dioxide, total [Moles /volume] in Serum or PlasmaOrdered By: Mehdi Ornelas on 10-21-2022 CO2 [Moles/Vol] 20.9 mmol/L 21.0-31.0 [facility] Chloride [Moles/volume] in S laura or PlasmaOrdered By: Mehdi Ornelas on 10-21-2022 Chloride [Moles/Vol] 103 mmol/L 98-107 [facility] Color Auto (U)Ordered By: Osmany Ornelas on 10-21-2022 Color (U) Yellow Yellow [facility] Creatinine [Mass/volume] in Serum or PlasmaOrdered By: Mehdi Ornelas on 10-21-2022 Creatinine [Mass/Vol] 1.15 mg/dL 0.70-1.30 [facility] Eosinophils Auto (Bld) [#/Vo l]Ordered By: Mehdi Ornelas on 10-21-2022 Eosinophils (Bld) [#/Vol] 0.0 10*3/uL 0.0-0.45 [facility] Eosinophils/100 WBC Auto (Bl d)Ordered By: Mehdi Ornelas on 10-21-2022 Eosinophils/100 WBC (Bld) 0.4 % . [facility] Erythrocyte distribution wid th Auto (RBC) [Ratio]Ordered By: Mehdi Ornelas on 10-21-2022 Erythrocyte distribution width (RBC) [Ratio] 13.7 % 12.0-14.8 [facility] Ethanol [Mass/volume] in Ser um or PlasmaOrdered By: Mehdi Ornelas on 10-21-2022 Ethanol [Mass/Vol] mg/dL [facility] Ethanol [Mass/Vol] TNP [facility] Comment on above: Test not performed Globulin Calc (S) [Mass/Vol] Ordered By: Mehdi Ornelas on 10-21-2022 Globulin (S) [Mass/Vol] 3.1 g/dL F [facility] Glucose Glucometer (BldC) [M ass/Vol]Ordered By: Mehdi Ornelas on 10-21-2022 Glucose [Mass/Vol] 105 mg/dL [facility] Comment on above: Random Glucose Refer ence Range is dependent on time and content of last meal. Glucose of more than 200 mg/dL in a nonstressed, ambulatory subject supports the diagnosis of Diabetes Mellitus. Glucose [Mass/volume] in Ser um or PlasmaOrdered By: Mehdi Ornelas on 10-21-2022 Glucose [Mass/Vol] 115 mg/dL 70-100 [facility] Comment on above: ADA recommended refe rence rangeRandom Glucose Reference Range is dependent on time and content of last meal. Glucose of more than 200 mg/dL in a nonstressed, ambulatory subject supports the diagnosis of Diabetes Mellitus. Hematocrit Auto (Bld) [Volum e fraction]Ordered By: Mehdi Ornelas on 10-21-2022 Hematocrit (Bld) [Volume fraction] 48.4 % 38.8-50.0 [facility] Hemoglobin [Mass/volume] in BloodOrdered By: Mehdi Ornelas on 10-21-2022 Hemoglobin (Bld) [Mass/Vol] 16.5 g/dL 13.0-17.0 [facility] Ketones Auto test strip (U) [Mass/Vol]Ordered By: Mehdi Ornelas on 10-21-2022 Ketones (U) [Mass/Vol] 1+ Negative [facility] - UrinalysisOrder ed By: Mehdi Ornelas on 10-21-2022 Hyaline casts LM Ql (Urine sed) None seen [LPF] 0-8 [facility] Leukocytes [#/volume] correc jayleen for nucleated erythrocytes in Blood by Automated counOrdered By: Mehdi Ornelas on 10-21-2022 WBC corrected for nucl RBC Auto (Bld) [#/Vol] 11.2 10*3/uL 4.1-10.5 [facility] Lymphocytes Auto (Bld) [#/Vo l]Ordered By: Mehdi Ornelas on 10-21-2022 Lymphocytes (Bld) [#/Vol] 1.6 10*3/uL 1.00-4.8 [facility] Lymphocytes/100 WBC Auto (Bl d)Ordered By: Mehdi Ornelas on 10-21-2022 Lymphocytes/100 WBC (Bld) 14.0 % . [facility] MCH Auto (RBC) [Entitic mass ]Ordered By: Mehdi Ornelas on 10-21-2022 MCH (RBC) [Entitic mass] 29.5 pg 27.5-35.2 [facility] MCHC Auto (RBC) [Mass/Vol]Or dered By: Mehdi Ornelas on 10-21-2022 MCHC (RBC) [Mass/Vol] 34.1 g/dL 32.5-35.6 [facility] MCV Auto (RBC) [Entitic vol] Ordered By: Mehdi Ornelas on 10-21-2022 MCV (RBC) [Entitic vol] 86.6 fL 83.5-101 F [facility] Magnesium [Mass/volume] in S laura or PlasmaOrdered By: Mehdi Ornelas on 10-21-2022 Magnesium [Mass/Vol] 1.8 mg/dL 1.9-2.7 [facility] Monocyte distribution width [Entitic volume] in Blood by AutomatedOrdered By: Mehdi Ornelas on 10-21-2022 Monocyte distribution width Auto (Bld) [Entitic vol] 17.66 % 0.00-20.00 [facility] Monocytes Auto (Bld) [#/Vol] Ordered By: Mehdi Ornelas on 10-21-2022 Monocytes (Bld) [#/Vol] 0.7 10*3/uL 0.0-0.8 [facility] Monocytes/100 WBC Auto (Bld) Ordered By: Mehdi Ornelas on 10-21-2022 Monocytes/100 WBC (Bld) 6.1 % . [facility] Neutrophils Auto (Bld) [#/Vo l]Ordered By: Mehdi Ornelas on 10-21-2022 Neutrophils (Bld) [#/Vol] 8.9 10*3/uL 1.8-7.7 [facility] Neutrophils/100 WBC Auto (Bl d)Ordered By: Mehdi Ornelas on 10-21-2022 Neutrophils/100 WBC (Bld) 79.2 % . [facility] Nitrite Test strip Ql (U)Ord ered By: Mehdi Ornelas on 10-21-2022 Nitrite Ql (U) Negative Negative [facility] No Panel InformationOrdered By: Mehdi Ornelas on 10-21-2022 Bedside Glucose Comment Glu2: cleaned meter [facility] Estimated GFR (CKD-EPI) > 60.0 mL/Min [facility] [facility] (Chem 124.62 [facility] Nucleated erythrocytes [Pres ence] in Blood by Automated countOrdered By: Mehdi Ornelas on 10-21-2022 Nucleated RBC Auto Ql (Bld) 0.1 /100{WBC} 0-0.5 [facility] Opiates [Presence] in Urine by Screen methodOrdered By: Mehdi Ornelas on 10-21-2022 Opiates Screen Ql (U) Negative Negative [facility] Phencyclidine Screen Ql (U)O rdered By: Mehdi Ornelas on 10-21-2022 Phencyclidine Ql (U) Negative Negative [facility] Platelet mean volume Auto (B ld) [Entitic vol]Ordered By: Mehdi Ornelas on 10-21-2022 Platelet mean volume (Bld) [Entitic vol] 9.4 fL 6.6-10.1 [facility] Platelets Auto (Bld) [#/Vol] Ordered By: Mehdi Ornelas on 10-21-2022 Platelets (Bld) [#/Vol] 214 10*3/uL 150-450 [facility] Potassium [Moles/volume] in Serum or PlasmaOrdered By: Mehdi Ornelas on 10-21-2022 Potassium [Moles/Vol] 3.5 mmol/L 3.5-5.1 [facility] Protein Auto test strip (U) [Mass/Vol]Ordered By: Mehdi Ornelas on 10-21-2022 Protein (U) [Mass/Vol] Trace mg/dL Negative F [facility] Protein [Mass/volume] in Ser um or PlasmaOrdered By: Mehdi Ornelas 10-21-2022 Protein [Mass/Vol] 8.0 g/dL 6.4-8.9 [facility] RBC Auto (Bld) [#/Vol]Ordere d By: Mehdi Ornelas on 10-21-2022 RBC (Bld) [#/Vol] 5.59 10*6/uL 3.90-5.60 [facility] Salicylates [Mass/volume] in Serum or PlasmaOrdered By: Mehdi Ornelas on 10-21-2022 Salicylates [Mass/Vol] mg/dL 15.0-30.0 [facility] Comment on above: Patients treated wit h Sulfasalazine may generate a false high result for Salicylate. Serum or plasma albumin/glob ulin mass ratioOrdered By: Mehdi Ornelas on 10-21-2022 Albumin/Globulin [Mass ratio] 1.6 {ratio} [facility] Serum or plasma anion gap de terminationOrdered By: Mehdi Ornelas 10-21-2022 Anion gap [Moles/Vol] 16.6 mmol/L 6.0-15.0 [facility] Sodium [Moles/volume] in Ser um or PlasmaOrdered By: Mehdi Ornelas on 10-21-2022 Sodium [Moles/Vol] 137 mmol/L 136-145 [facility] Specific gravity Auto test s trip (U) [Rel density]Ordered By: Mehdi Ornelas on 10-21-2022 Specific gravity (U) [Rel density] 1.023 1.001-1.030 [facility] Squamous epithelial cells de tection in urine sediment by light microscopyOrdered By: Mehdi Ornelas on 10-21-2022 Epithelial cells.squamous LM Ql (Urine sed) None seen [HPF] 0-2 [facility] Urea nitrogen [Mass/volume] in Serum or PlasmaOrdered By: Mehdi Ornelas on 10-21-2022 Urea nitrogen [Mass/Vol] 14 mg/dL 7-25 [facility] Urine bacteria detection by automated methodOrdered By: Mehdi Ornelas on 10-21-2022 Bacteria Auto Ql (U) None seen None Seen [facility] Urine clarity by refractomet ry automatedOrdered By: Mehdi Ornelas on 10-21-2022 Clarity Refractometry automated (U) Clear Clear [facility] Urine glucose measurement by automated test strip (mass/volume)Ordered By: Mehdi Ornelas on 10-21-2022 Glucose Auto test strip (U) [Mass/Vol] Normal mg/dL Normal [facility] Urine hemoglobin detection b y automated test stripOrdered By: Mehdi Ornelas on 10-21-2022 Hemoglobin Auto test strip Ql (U) Negative Negative [facility] Urine leukocyte esterase det ection by automated test stripOrdered By: Mehdi Ornelas on 10-21-2022 Leukocyte esterase Auto test strip Ql (U) Negative Negative [facility] Urobilinogen Auto test strip (U) [Mass/Vol]Ordered By: Mehdi Ornelas on 10-21-2022 Urobilinogen (U) [Mass/Vol] Normal mg/dL Normal [facility] WBC Auto (Bld) [#/Vol]Ordere d By: Mehdi Ornelas on 10-21-2022 WBC (Bld) [#/Vol] 11.2 10*3/uL 4.1-10.5 [facility] pH Auto test strip (U)Ordere d By: Mehdi Ornelas on 10-21-2022 pH (U) 8.5 [pH] 5.0-9.0 [facility] Alanine aminotransferase [En zymatic activity/volume] in Serum or PlasmaOrdered By: Nicole Jarrett on 10-13-2022 ALT [Catalytic activity/Vol] 20 U/L 7-52 [facility] Albumin [Mass/volume] in Ser um or Plasma by Bromocresol green (BCG) dye binding methoOrdered By: Nicole Jarrett on 10-13-2022 Albumin BCG dye [Mass/Vol] 4.7 g/dL 3.5-5.7 [facility] Alkaline phosphatase [Enzyma tic activity/volume] in Serum or PlasmaOrdered By: Nicole Jarrett on 10-13-2022 ALP [Catalytic activity/Vol] 82 U/L 34-104 [facility] Aspartate aminotransferase [ Enzymatic activity/volume] in Serum or PlasmaOrdered By: Nicole Jarrett on 10-13-2022 AST [Catalytic activity/Vol] 23 U/L 13-39 [facility] Basophils Auto (Bld) [#/Vol] Ordered By: Nicole Jarrett on 10-13-2022 Basophils (Bld) [#/Vol] 0.0 10*3/uL 0.0-0.2 [facility] Basophils/100 WBC Auto (Bld) Ordered By: Nicole Jarrett on 10-13-2022 Basophils/100 WBC (Bld) 0.3 % . F [facility] Bilirubin.total [Mass/volume ] in Serum or PlasmaOrdered By: Nicole Jarrett on 10-13-2022 Bilirubin [Mass/Vol] 0.3 mg/dL 0.3-1.0 [facility] C reactive protein [Mass/vol ume] in Serum or PlasmaOrdered By: Nicole Jarrett on 10-13-2022 CRP [Mass/Vol] < 0.5 mg/dL 0.0-0.5 [facility] Calcium [Mass/volume] in Ser um or PlasmaOrdered By: Nicole Jarrett on 10-13-2022 Calcium [Mass/Vol] 9.3 mg/dL 8.6-10.3 [facility] Carbon dioxide, total [Moles /volume] in Serum or PlasmaOrdered By: Nicole Jarrett on 10-13-2022 CO2 [Moles/Vol] 26.3 mmol/L 21.0-31.0 [facility] Chloride [Moles/volume] in S laura or PlasmaOrdered By: Nicole Jarrett on 10-13-2022 Chloride [Moles/Vol] 105 mmol/L 98-107 [facility] Creatinine [Mass/volume] in Serum or PlasmaOrdered By: Nicole Jarrett on 10-13-2022 Creatinine [Mass/Vol] 1.03 mg/dL 0.70-1.30 [facility] Eosinophils Auto (Bld) [#/Vo l]Ordered By: Nicole Jarrett on 10-13-2022 Eosinophils (Bld) [#/Vol] 0.2 10*3/uL 0.0-0.45 [facility] Eosinophils/100 WBC Auto (Bl d)Ordered By: Nicole Jarrett on 10-13-2022 Eosinophils/100 WBC (Bld) 2.9 % . [facility] Erythrocyte distribution wid th Auto (RBC) [Ratio]Ordered By: Niocle Jarrett on 10-13-2022 Erythrocyte distribution width (RBC) [Ratio] 13.7 % 12.0-14.8 [facility] Globulin Calc (S) [Mass/Vol] Ordered By: Nicole Jarrett on 10-13-2022 Globulin (S) [Mass/Vol] 2.7 g/dL [facility] Glucose [Mass/volume] in Ser um or PlasmaOrdered By: Nicole Jarrett on 10-13-2022 Glucose [Mass/Vol] 88 mg/dL 70-100 [facility] Comment on above: ADA recommended refe rence rangeRandom Glucose Reference Range is dependent on time and content of last meal. Glucose of more than 200 mg/dL in a nonstressed, ambulatory subject supports the diagnosis of Diabetes Mellitus. HIV 1 and HIV-2 antibody ass ay with HIV-1 p24 antigen detectionOrdered By: Nicole Jarrett on 10-13-2022 HIV 1+2 Ab+HIV1 p24 Ag IA Ql Non-Reactive Non Reactive [facility] Comment on above: HIV NegativeHIV-1/HI V-2 antibodies and HIV-1 p24 antigen were NOTdetected. There is no laboratory evidence of HIV infection.Performed at: [facility] [address] [id number] Director: Ricardo Osorio PhD, Phone: [phone] Hematocrit Auto (Bld) [Volum e fraction]Ordered By: Nicole Jarrett on 10-13-2022 Hematocrit (Bld) [Volume fraction] 46.4 % 38.8-50.0 [facility] Hemoglobin [Mass/volume] in BloodOrdered By: Nicole Jarrett on 10-13-2022 Hemoglobin (Bld) [Mass/Vol] 15.9 g/dL 13.0-17.0 [facility] Hepatitis A virus Ab [Presen ce] in Serum by ImmunoassayOrdered By: Nicole Jarrett on 10-13-2022 HAV Ab IA Ql (S) Positive Negative [facility] Comment on above: Performed at: [facility] [address] [id number] Director: Ricardo Osorio PhD, Phone: [phone] Hepatitis B virus surface Ag [Presence] in Serum or Plasma by ImmunoassayOrdered By: Nicole Jarrett on 10-13-2022 HBV surface Ag IA Ql Negative Negative [facility] Hepatitis C virus IgG Ab [Pr esence] in Serum or Plasma by ImmunoassayOrdered By: Nicole Jarrett on 10-13-2022 HCV IgG IA Ql Non-Reactive Non Reactive [facility] Leukocytes [#/volume] correc jayleen for nucleated erythrocytes in Blood by Automated counOrdered By: Nicole Jarrett on 10-13-2022 WBC corrected for nucl RBC Auto (Bld) [#/Vol] 8.0 10*3/uL 4.1-10.5 [facility] Lymphocytes Auto (Bld) [#/Vo l]Ordered By: Nicole Jarrett on 10-13-2022 Lymphocytes (Bld) [#/Vol] 1.7 10*3/uL 1.00-4.8 [facility] Lymphocytes/100 WBC Auto (Bl d)Ordered By: Nicole Jarrett on 10-13-2022 Lymphocytes/100 WBC (Bld) 21.3 % . [facility] MCH Auto (RBC) [Entitic mass ]Ordered By: Nicole Jarrett on 10-13-2022 MCH (RBC) [Entitic mass] 30.0 pg 27.5-35.2 [facility] MCHC Auto (RBC) [Mass/Vol]Or dered By: Nicole Jarrett on 10-13-2022 MCHC (RBC) [Mass/Vol] 34.4 g/dL 32.5-35.6 [facility] MCV Auto (RBC) [Entitic vol] Ordered By: Nicole Jarrett on 10-13-2022 MCV (RBC) [Entitic vol] 87.2 fL 83.5-101 F [facility] Monocytes Auto (Bld) [#/Vol] Ordered By: Nicole Jarrett on 10-13-2022 Monocytes (Bld) [#/Vol] 0.6 10*3/uL 0.0-0.8 [facility] Monocytes/100 WBC Auto (Bld) Ordered By: Nicole Jarrett on 10-13-2022 Monocytes/100 WBC (Bld) 7.1 % . F [facility] Neutrophils Auto (Bld) [#/Vo l]Ordered By: Nicole Jarrett on 10-13-2022 Neutrophils (Bld) [#/Vol] 5.5 10*3/uL 1.8-7.7 [facility] Neutrophils/100 WBC Auto (Bl d)Ordered By: Nicole Jarrett on 10-13-2022 Neutrophils/100 WBC (Bld) 68.4 % . [facility] No Panel InformationOrdered By: Nicole Jarrett on 10-13-2022 Estimated GFR (CKD-EPI) > 60.0 mL/Min [facility] Hepatitis B Core Total Antibody Negative Negative [facility] Hepatitis C Interpretation See comment . [facility] Comment on above: Not infected with HC V unless early or acute infection issuspected (which may be delayed in an immunocompromisedindividual), or other evidence exists to indicate HCVinfection. Hepatitis C RNA Quantitative N/A [facility] Creatinine Clearance (Chem N/A [facility] Nucleated erythrocytes [Pres ence] in Blood by Automated countOrdered By: Nicole Jarrett on 10-13-2022 Nucleated RBC Auto Ql (Bld) 0.1 /100{WBC} 0-0.5 [facility] Platelet mean volume Auto (B ld) [Entitic vol]Ordered By: Nicole Jarrett on 10-13-2022 Platelet mean volume (Bld) [Entitic vol] 9.0 fL 6.6-10.1 [facility] Platelets Auto (Bld) [#/Vol] Ordered By: Nicole Jarrett on 10-13-2022 Platelets (Bld) [#/Vol] 215 10*3/uL 150-450 [facility] Potassium [Moles/volume] in Serum or PlasmaOrdered By: Nicole Jarrett on 10-13-2022 Potassium [Moles/Vol] 4.4 mmol/L 3.5-5.1 [facility] Protein [Mass/volume] in Ser um or PlasmaOrdered By: Nicole Jarrett on 10-13-2022 Protein [Mass/Vol] 7.4 g/dL 6.4-8.9 [facility] RBC Auto (Bld) [#/Vol]Ordere d By: Nicole Jarrett on 10-13-2022 RBC (Bld) [#/Vol] 5.32 10*6/uL 3.90-5.60 [facility] Reagin Ab [Presence] in Seru m by RPROrdered By: Nicole Jarrett on 10-13-2022 Reagin Ab RPR Ql (S) Non-Reactive Non Reactive [facility] Comment on above: Performed at: [address] [id number] Director: Ricardo Osorio PhD, Phone: [phone] Serum hepatitis B virus surf nettie antibody detectionOrdered By: Nicole Jarrett on 10-13-2022 HBV surface Ab Ql (S) Non-Reactive . F [facility] Comment on above: Non Reactive: Incons istent with immunity, less than 10 mIU/mL Reactive: Consistent with immunity, greater than 9.9 mIU/mL Serum or plasma albumin/glob ulin mass ratioOrdered By: Nicole Jarrett on 10-13-2022 Albumin/Globulin [Mass ratio] 1.7 {ratio} [facility] Serum or plasma anion gap de terminationOrdered By: Nicole Jarrett on 10-13-2022 Anion gap [Moles/Vol] 13.1 mmol/L 6.0-15.0 [facility] Sodium [Moles/volume] in Ser um or PlasmaOrdered By: Nicole Jarrett on 10-13-2022 Sodium [Moles/Vol] 140 mmol/L 136-145 [facility] Thyrotropin [Units/volume] i n Serum or PlasmaOrdered By: Nicole Jarrett on 10-13-2022 TSH Qn 1.31 m[IU]/L 0.45-5.33 [facility] Urea nitrogen [Mass/volume] in Serum or PlasmaOrdered By: Nicole Jarrett on 10-13-2022 Urea nitrogen [Mass/Vol] 14 mg/dL 7-25 [facility] Vitamin D+Metabolites [Mass/ volume] in Serum or PlasmaOrdered By: Nicole Jarrett on 10-13-2022 Vitamin D+Metabolites [Mass/Vol] 32.5 ng/mL 30-100 [facility] Comment on above: VITAMIN D STATUS 25( [place])VITAMIN D RANGE (ng/mL) Deficient <20 Insufficient 20 to <30Sufficient 30 to 100Reference: Jose MF,Serenity NC, Jc HARRELL, et al. Evaluation,treatment, and prevention of vitamin D deficiency; an Endocrine Society clinical practice guideline. JCEM. 2010; 96(7):1911-30. WBC Auto (Bld) [#/Vol]Ordere d By: Nicole Jarrett on 10-13-2022 WBC (Bld) [#/Vol] 8.0 10*3/uL 4.1-10.5 [facility] ALCOHOL (ETHYL)on 04-25-2022 ALCOHOL (ETHYL) Normal 0-0.010 [facility] Comment on above: Result Comment: <0.0 10 Performed at [address] [address] Performed By: #### E BENNETT #### [address] [address] CBC with Diffon 04-25-2022 AB IMMATURE NEUT 0.01 K/UL Normal 0.0-0.1 [facility] Comment on above: Performed By: #### C BCD #### [address] [address] ABS BASO 0.02 K/UL Normal 0.00-0.22 [facility] Comment on above: Performed By: #### C BCD #### [address] [address] ABS EOS 0.14 K/UL Normal 0-0.45 [facility] Comment on above: Performed By: #### C BCD #### [address] [address] ABS NEUTROPHILS 4.33 K/UL Normal 1.5-8.0 [facility] Comment on above: Performed By: #### C BCD #### [address] [address] ABS.NEUT.CALCULATED 4.33 K/UL Normal [facility] Comment on above: Result Comment: Perf ormed at [address] [address] Performed By: #### C BCD #### [address] [address] Basophils/100 WBC (Bld) 0.30 % Normal 0-1 [facility] Comment on above: Performed By: #### C BCD #### [facility] [address] [address] DIFF TYPE AUTO DIFF Normal [facility] Comment on above: Performed By: #### C BCD #### [address] [address] Eosinophils/100 WBC (Bld) 2.20 % Normal 0-3 [facility] Comment on above: Performed By: #### C BCD #### [facility] [address] [address] [place] [address] Erythrocyte distribution width (RBC) [Ratio] 12.8 % Normal 11.7-15.0 [facility] Comment on above: Performed By: #### C BCD #### [facility] [address] [address] [place] [address] Hematocrit (Bld) [Volume fraction] 50.6 % High 41-50 [facility] Comment on above: Performed By: #### C BCD #### [facility] [address] [address] [place] [address] Hemoglobin (Bld) [Mass/Vol] 16.9 g/dL High 13.5-16.5 [facility] Comment on above: Performed By: #### C BCD #### [address] [place] [address] [place] [address] Lymphocytes (Bld) [#/Vol] 1.42 10*3/uL Normal 1.2-3.2 [facility] Comment on above: Performed By: #### C BCD #### [address] [address] [place] [address] Lymphocytes/100 WBC (Bld) 22.50 % Normal 20-40 [facility] Comment on above: Performed By: #### C BCD #### [address] [address] [place] [address] MCH (RBC) [Entitic mass] 29.0 pg Normal 26-34 [facility] Comment on above: Performed By: #### C BCD #### [facility] [address] [address] [place] [address] MCHC 33.4 % Normal 31-37 [facility] Comment on above: Performed By: #### C BCD #### [facility] [address] [address] [place] [address] MCV (RBC) [Entitic vol] 86.8 fL Normal 80-100 [facility] Comment on above: Performed By: #### C BCD #### [facility] [address] [address] [place] [address] MEAN PLT VOL 10.9 CU Normal 7.0-12.6 [facility] Comment on above: Performed By: #### C BCD #### [facility] [address] [place] [address] Monocytes (Bld) [#/Vol] 0.39 10*3/uL Normal 0-0.8 [facility] Comment on above: Performed By: #### C BCD #### [facility] [address] [place] [address] Monocytes/100 WBC (Bld) 6.20 % Normal 0-8 [facility] Comment on above: Performed By: #### C BCD #### [facility] [address] [place] [address] Neutrophils/100 WBC (Bld) 0.20 % Normal 0.0-1.0 [facility] Comment on above: Performed By: #### C BCD #### [facility] [place] [address] [address] [place] [facility] [address] Neutrophils/100 WBC (Bld) 68.60 % Normal 50-70 [facility] Comment on above: Performed By: #### C BCD #### [place] [address] [address] [facility] [place] [address] NRBC'S 0 /100 WBC Normal 0 [facility] Comment on above: Performed By: #### C BCD #### [facility] [place] [address] [address] [facility] [place] [address] Platelets (Bld) [#/Vol] 223 10*3/uL Normal 150-450 [facility] Comment on above: Performed By: #### C BCD #### [facility] [place] [address] [place] [address] RBC (Bld) [#/Vol] 5.83 10*6/uL High 4.5-5.5 [facility] Comment on above: Performed By: #### C BCD #### [facility] [address] [place] [address] RDW-SD 40.3 FL Normal 37.0-54.0 [facility] Comment on above: Performed By: #### C BCD #### [facility] [place] [address] [place] [address] WBC (Bld) [#/Vol] 6.3 10*3/uL Normal 4.5-11.0 [facility] Comment on above: Performed By: #### C BCD #### [facility] [address] [place] [address] [place] [address] COMPREHENSIVE METABOLIC PANE Aleks 04-25-2022 Albumin [Mass/Vol] 4.5 g/dL Normal 3.5-5.0 [facility] Comment on above: Performed By: #### C TIP OUT WORKER #### [facility] [address] [address] [place] [address] Albumin/Globulin [Mass ratio] 1.7 {ratio} Normal 1.5-3.0 [facility] Comment on above: Performed By: #### C TIP OUT WORKER #### [facility] [address] [place] [address] [place] [address] ALP [Catalytic activity/Vol] 106 U/L Normal 35-125 [facility] Comment on above: Performed By: #### C TIP OUT WORKER #### [place] [address] [address] [place] [facility] [place] [address] ALT [Catalytic activity/Vol] 16 U/L Normal 5-40 [facility] Comment on above: Performed By: #### C TIP OUT WORKER #### [address] [place] [address] [place] [address] Anion gap [Moles/Vol] 10 mmol/L Normal 0-19 [facility] Comment on above: Performed By: #### C TIP OUT WORKER #### [facility] [address] [place] [address] [place] [address] AST [Catalytic activity/Vol] 16 U/L Normal 5-40 [facility] Comment on above: Performed By: #### C TIP OUT WORKER #### [facility] [place] [address] [address] [place] [facility] [place] [address] Bilirubin [Mass/Vol] 0.3 mg/dL Normal 0.1-1.2 [facility] Comment on above: Performed By: #### C TIP OUT WORKER #### [facility] [place] [address] [address] [place] [facility] [place] [address] Calcium [Mass/Vol] 9.8 mg/dL Normal 8.5-10.4 [facility] Comment on above: Performed By: #### C TIP OUT WORKER #### [facility] [address] [place] [address] Chloride [Moles/Vol] 103 mmol/L Normal 97-107 [facility] Comment on above: Performed By: #### C TIP OUT WORKER #### [facility] [address] [place] [address] CO2 [Moles/Vol] 28 mmol/L Normal 24-31 [facility] Comment on above: Performed By: #### C TIP OUT WORKER #### [facility] [place] [address] [place] [address] Creatinine [Mass/Vol] 1.1 mg/dL Normal 0.4-1.6 [facility] Comment on above: Performed By: #### C TIP OUT WORKER #### [facility] [place] [address] [place] [address] ESTIMATED GFR 100 mL/min/1.73 m2 Normal [facility] Comment on above: Result Comment: Perf ormed at [place] [address] [place] [address] Performed By: #### C TIP OUT WORKER #### [place] [address] [place] [address] Globulin (S) [Mass/Vol] 2.6 g/dL Normal 1.9-3.7 [facility] Comment on above: Performed By: #### C TIP OUT WORKER #### [place] [address] [place] [address] Glucose [Mass/Vol] 111 mg/dL High 65-99 [facility] Comment on above: Performed By: #### C TIP OUT WORKER #### [facility] [place] [address] [place] [address] Potassium [Moles/Vol] 3.9 mmol/L Normal 3.4-5.1 [facility] Comment on above: Performed By: #### C TIP OUT WORKER #### [facility] [place] [address] [place] [address] Protein [Mass/Vol] 7.1 g/dL Normal 5.9-7.9 [facility] Comment on above: Performed By: #### C TIP OUT WORKER #### [facility] [address] [address] Sodium [Moles/Vol] 141 mmol/L Normal 133-145 [facility] Comment on above: Performed By: #### C TIP OUT WORKER #### [facility] [address] [address] Urea nitrogen [Mass/Vol] 15 mg/dL Normal 8-25 [facility] Comment on above: Performed By: #### C TIP OUT WORKER #### [facility] [address] [address] Urea nitrogen/Creatinine [Mass ratio] 13.6 mg/mg Normal 8-21 [facility] [place] Comment on above: Performed By: #### C TIP OUT WORKER #### [facility] [address] [address] EKGon 04-25-2022 Electrocardiogram EKG Ventricular Rate : 112 BPM Atrial Rate : 112 BPM P-R Interval : 134 ms QRS Duration : 78 ms Q-T Interval : 302 ms QTC Calculation(Bazett) : 412 ms Calculated P Austin : 81 degrees Calculated R Austin : 103 degrees Calculated T Austin : 73 degrees Diagnosis:Sinus tachycardia Biatrial enlargement Rightward axis Pulmonary disease pattern RSR' or QR pattern in V1 suggests right ventricular conduction delay ST elevation, consider early repolarization, pericarditis, or injury Abnormal ECG When compared with ECG of 26-MAR-2020 23:11, Vent. rate has increased BY 52 BPM Confirmed by ENZO NAM ([id number]) on 04/30/2022 12:14:14 PM Normal [facility] [place] Laboratoryon 04-25-2022 Drug screen comment (U) [Interp] [...] OXYCODONE 100 ng/ml (Reference Range: not available) [facility] - Chemistry and C hemistry - challengeon 04-25-2022 Albumin [Mass/Vol] Albumin 4.5 GM/DL (3.5-5.0 GM/DL) 3.5 - 5.0 GM/DL [facility] Albumin/Globulin [Mass ratio] Albumin Globulin Ratio 1.7 RATIO (1.5-3.0 RATIO) 1.5 - 3.0 RATIO [facility] ALP (Bld) [Catalytic activity/Vol] Alk Phosphatase 106 U/L (35-125 U/L) 35 - 125 U/L [facility] ALT [Catalytic activity/Vol] ALT 16 U/L (5-40 U/L) 5 - 40 U/L [facility] Anion gap [Moles/Vol] Anion Gap 10 MMOL/ L (0-19 MMOL/L) 0 - 19 MMOL/L [facility] AST [Catalytic activity/Vol] AST 16 U/L (5-40 U/L) 5 - 40 U/L [facility] Bilirubin [Mass/Vol] Total Bilirubin 0.3 MG/DL (0.1-1.2 MG/DL) 0.1 - 1.2 MG/DL [facility] Calcium [Mass/Vol] Calcium 9.8 MG/DL (8.5-10.4 MG/DL) 8.5 - 10.4 MG/DL [facility] Chloride [Moles/Vol] Chloride 103 MMOL/L (97-107 MMOL/L) 97 - 107 MMOL/L [facility] CO2 [Moles/Vol] Carbon Dioxide 28 MMOL/L (24-31 MMOL/L) 24 - 31 MMOL/L [facility] Creatinine [Mass/Vol] Creatinine R 1.1 MG/DL (0.4-1.6 MG/DL) 0.4 - 1.6 MG/DL [facility] GFR/1.73 sq M.predicted MDRD (S/P/Bld) [Vol rate/Area] EGFR 100 mL/min/1.73 m2 (Reference Range: not available) Performed at [address] [address] [facility] Globulin (S) [Mass/Vol] Globulin 2.6 G/D L (1.9-3.7 G/DL) 1.9 - 3.7 G/DL [facility] Glucose [Mass/Vol] Glucose 111 MG/DL H (65-99 MG/DL) High 65 - 99 MG/DL [facility] Potassium [Moles/Vol] Potassium R 3.9 MMOL/L (3.4-5.1 MMOL/L) 3.4 - 5.1 MMOL/L [facility] Protein [Mass/Vol] Total Protein 7.1 G/DL (5.9-7.9 G/DL) 5.9 - 7.9 G/DL [facility] Sodium [Moles/Vol] Sodium 141 MMOL/L (133-145 MMOL/L) 133 - 145 MMOL/L [facility] Urea nitrogen [Mass/Vol] BUN 15 MG/DL (8-25 MG/DL) 8 - 25 MG/DL [facility] Urea nitrogen/Creatinine [Mass ratio] BUN Creatinine Ratio 13.6 RATIO (8-21 RATIO) 8 - 21 RATIO [facility] - Drug toxicology on 04-25-2022 Amphetamines Screen method >1000 ng/mL Ql (U) Urine Amphetamine NEGATIVE (Reference Range: not available) [facility] Barbiturates Screen method >300 ng/mL Ql (U) Urine Barbiturate NEGATIVE (Reference Range: not available) [facility] Benzodiazepines Screen method >300 ng/mL Ql (U) Urine Benzodiazepine NEGATIVE (Reference Range: not available) [facility] Benzoylecgonine Screen method >300 ng/mL Ql (U) Urine Cocaine Metabolites NEGATIVE (Reference Range: not available) [facility] Cannabinoids Screen method >50 ng/mL Ql (U) THC/Cannabinoids NEGATIVE (Reference Range: not available) [facility] Ethanol [Mass/Vol] Alcohol <0.010 Performed at [address] [address] GM/DL (0-0.010 GM/DL) 0 - 0.010 GM/DL [facility] Methadone Ql (U) Urine Methadone NEGATIVE (Reference Range: not available) [facility] Opiates Screen method >300 ng/mL Ql (U) Urine Opiate NEGATIVE (Reference Range: not available) [facility] oxyCODONE Ql (U) Urine Oxycodone NEGATIVE Performed at [address] [address] (Reference Range: not available) [facility] Phencyclidine Screen method >25 ng/mL Ql (U) Urine PCP NEGATIVE (Reference Range: not available) [facility] - Hematology and Cell countson 04-25-2022 Basophils (Bld) [#/Vol] Abs Baso 0.02 K/ UL (0.00-0.22 K/UL) 0.00 - 0.22 K/UL [facility] Basophils/100 WBC (Bld) Basophil 0.30 % (0-1 %) 0 - 1 % [facility] Differential cell count method Nom (Bld) Diff Type AUTO DIFF (Reference Range: not available) [facility] Eosinophils (Bld) [#/Vol] Abs Eos 0.14 K/UL (0-0.45 K/UL) 0 - 0.45 K/UL [facility] Eosinophils/100 WBC (Bld) Eosinophil 2.20 % (0-3 %) 0 - 3 % [facility] Erythrocyte distribution width (RBC) [Entitic vol] RDW SD 40.3 FL (37.0-54.0 FL) 37.0 - 54.0 FL [facility] Erythrocyte distribution width (RBC) [Ratio] RDW CV 12.8 % (11.7-15.0 %) 11.7 - 15.0 % [facility] Hematocrit (Bld) [Volume fraction] HCT 50.6 % H (41-50 %) High 41 - 50 % [facility] Hemoglobin (Bld) [Mass/Vol] HGB 16.9 GM/DL H (13.5-16.5 GM/DL) High 13.5 - 16.5 GM/DL [facility] Immature granulocytes (Bld) [#/Vol] Abs Imm Neut 0.01 K/UL (0.0-0.1 K/UL) 0.0 - 0.1 K/UL [facility] Lymphocytes (Bld) [#/Vol] Abs Lymph 1.42 K/UL (1.2-3.2 K/UL) 1.2 - 3.2 K/UL [facility] Lymphocytes/100 WBC (Bld) Lymphocyte 22.50 % (20-40 %) 20 - 40 % [facility] MCH (RBC) [Entitic mass] MCH 29.0 PG (26-34 PG) 26 - 34 PG [facility] MCHC (RBC) [Mass/Vol] MCHC 33.4 % (31-37 %) 31 - 37 % [facility] MCV (RBC) [Entitic vol] MCV 86.8 FL (80- 100 FL) 80 - 100 FL [facility] Monocytes (Bld) [#/Vol] Abs Dillingham 0.39 K/ UL (0-0.8 K/UL) 0 - 0.8 K/UL [facility] Monocytes/100 WBC (Bld) Monocyte 6.20 % (0-8 %) 0 - 8 % [facility] Neutrophils (Bld) [#/Vol] Abs.Neut.Calculated 4.33 K/UL (Reference Range: not available) Performed at [address] [address] [facility] Neutrophils (Bld) [#/Vol] Abs Neut 4.33 K/UL (1.5-8.0 K/UL) 1.5 - 8.0 K/UL [facility] Neutrophils.immature/10 0 WBC (Bld) Immature Neut % 0.20 % (0.0-1.0 %) 0.0 - 1.0 % [facility] Nucleated RBC/100 WBC (Bld) [Ratio] NRBCs 0 /100 WBC (0 /100 WBC) [facility] Platelet mean volume (Bld) [Entitic vol] MPV 10.9 CU (7.0-12.6 CU) 7.0 - 12.6 CU [facility] Platelets (Bld) [#/Vol] PLT 223 K/UL (150-450 K/UL) 150 - 450 K/UL [facility] RBC (Bld) [#/Vol] RBC 5.83 M/UL H (4.5-5.5 M/UL) High 4.5 - 5.5 M/UL [facility] Segmented neutrophils/100 WBC (Bld) Granulocyte 68.60 % (50-70 %) 50 - 70 % [facility] WBC (Bld) [#/Vol] WBC 6.3 K/UL (4.5-11.0 K/UL) 4.5 - 11.0 K/UL [facility] - Microbiology an d Antimicrobial susceptibilityon 04-25-2022 FLUAV RNA JERRELL+probe Ql (Nph) FLU A by PCR NEGATIVE (Reference Range: not available) [facility] FLUBV RNA JERRELL+probe Ql (Nph) FLU B by PCR NEGATIVE (Reference Range: not available) [facility] SARS-CoV-2 (COVID-19) RNA JERRELL+probe Ql (Unsp spec) SARS-CoV-2 by PCR NEGATIVE (NEG ) [facility] SARS-CoV-2,INFLUENZA A/B NUC LEIC ACID TESTon 04-25-2022 EUA DISCLAIMER [facility] Comment on above: Result Comment: This test [...] is terminated or revoked sooner. Performed at [place] [address] Performed By: #### F LUCOV #### [place] [address] FLU A by PCR Negative [facility] Comment on above: Performed By: #### F LUCOV #### [place] [address] FLU B by PCR Negative [facility] Comment on above: Performed By: #### F LUCOV #### [place] [address] SARS-CoV-2 (COVID-19) RNA JERRELL+probe Ql (Unsp spec) Negative [facility] Comment on above: Performed By: #### F LUCOV #### [facility] [id number] [place] [address] URINE DRUG SCREENon 04-25-20 AMPHETAMINE/ECSTASY Negative [facility] Comment on above: Performed By: #### U DS #### [facility] [id number] [place] [address] BARBITURATE Negative [facility] Comment on above: Performed By: #### U DS #### [facility] [id number] [place] [address] [place] [address] BENZODIAZEPINE Negative [facility] Comment on above: Performed By: #### U DS #### [facility] [id number] [place] [address] COCAINE METABOLITES Negative [facility] Comment on above: Performed By: #### U DS #### [facility] [id number] [place] [address] METHADONE Negative [facility] Comment on above: Performed By: #### U DS #### [facility] [address] [place] [address] OPIATE Negative [facility] Comment on above: Performed By: #### U DS #### [facility] [id number] [place] [address] OXYCODONE [facility] Comment on above: Result Comment: NEGA TIVE Performed at [facility] [id number] [place] [address] [place] [address] Performed By: #### U DS #### [facility] [id number] [place] [address] [place] [address] PCP Negative [facility] Comment on above: Performed By: #### U DS #### [facility] [id number] [place] [address] THC/CANNABINOIDS Negative [facility] Comment on above: Performed By: #### U DS #### [facility] [id number] [place] [address] COMMENT [facility] Comment on above: Result Comment: Thes e [...] OXYCODONE 100 ng/ml Performed By: #### U DS #### [address] [address] Blood Pressure Cuff Sizeon 0 11-05-2021 Fall risk assessment a) No falls within the last year -[facility] Work Phone: Tobacco use status CP b) No M [facility] Work Phone: Blood Pressure Cuff Size Adult [facility] Work Phone: CNOVon 08-25-2021 CNOV Office Visit (PERHPA) CAMERON TERESA ([id number]) 1 M Date Time Provider Department 08/25/21 11:30 AM ALEKSANDRA ROSSPA During your visit today, we recorded the following information about you: Temperature Pulse Respiration Blood pressure 99.2 degrees 87/minute 18/minute 120/68 Weight Height 84.6 kg 1.965 m Aleksandar Ross MD 08/30/2021 8:58 PM Signed PEDIATRIC [...] or tonsill (more content not included)... Normal [facility] KIM by IFA w/Reflexon 2021 KIM Pattern Negative Normal [facility] Comment on above: Performed By: #### W SR, TSH, CBCDIF, FT4, CMP #### [facility] [address] [place], [place] [address] KIM Titer Negative Normal Negative [facility] Comment on above: Result Comment: Norm al range : negative at <1:80 serum dilution. Performed By: #### W SR, TSH, CBCDIF, FT4, CMP #### [facility] [address] [place], [place] [address] Nuclear Ab IF (S) [Titer] Negative Normal Negative [facility] Comment on above: Result Comment: Norm [...] TSH, CBCDIF, FT4, CMP #### [place] [address] [place], [place] [address] Anti-Neutro.Cyto.Abon 2021 ANCA Interpretation Equivocal staining seen on the ethanol (indirect immunofluorescence screen) slide but negative results on the follow up confirmatory testing. Anti-nuclear antibody test may be considered. Clinical correlation is required. Normal [facility] Comment on above: Performed By: #### W SR, TSH, CBCDIF, FT4, CMP #### [facility] [address] [place], [place] [address] C-ANCA Fluorescence Negative Normal Negative [facility] Comment on above: Performed By: #### W SR, TSH, CBCDIF, FT4, CMP #### [facility] [address] [place], [place] [address] Myeloperoxidase Ab <0.2 Normal <1.0 [facility] Comment on above: Performed By: #### W SR, TSH, CBCDIF, FT4, CMP #### [place] [address] P-ANCA Fluorescence Negative Normal Negative [facility] Comment on above: Performed By: #### W SR, TSH, CBCDIF, FT4, CMP #### [place] [id number] Proteinase-3 Ab <0.2 Normal <1.0 [facility] Comment on above: Performed By: #### W SR, TSH, CBCDIF, FT4, CMP #### [place] [address] Staff Review Reviewed by Ricardo Burdick M.D., Ph.D ([id number]) [facility] Comment on above: Performed By: #### W SR, TSH, CBCDIF, FT4, CMP #### [place] [address] C-Reactive Proteinon 022 CRP [Mass/Vol] mg/L Normal <0.9 [facility] Comment on above: Performed By: #### W SR, TSH, CBCDIF, FT4, CMP #### [place] [address] CANCA Reflexon 07-28-2021 CANCA Reflex Billed for services performed [facility] Comment on above: Performed By: #### W SR, TSH, CBCDIF, FT4, CMP #### [place] [address] CNOVon 07-28-2021 CNOV Office Visit ([facility]) CAMERON TERESA ([id number]) 1 M Date Time Provider Department 07/28/21 10:00 AM ALEKSANDRA ROSS During your visit today, we recorded the following information about you: Temperature Pulse Respiration Blood pressure 98.5 degrees 90/minute 18/minute 110/62 Weight Height 83.9 kg 1.956 m Aleksandra Ross MD 08/02/2021 9:41 PM Signed INITIAL OUTPATIENT VISIT PEDIATRIC RHEUMATOLOGY SERVICE DATE: 07/28/2021 REFERRING PHYSICIAN: Jaxson Starks [address] [place] [address] PRIMARY CARE PHYSICIAN: Jaxson Starks DO ACCOMPANIED [...] capsule T (more content not included)... Normal [facility] PANCA Reflexon 07-28-2021 PANCA Reflex Billed for services performed Normal [facility] Comment on above: Performed By: #### W SR, TSH, CBCDIF, FT4, CMP #### [place] [address] [place] [address] CBC and Differentialon 07-08 Abs Baso <0.03 Normal <0.11 [facility] Comment on above: Performed By: #### W SR, TSH, CBCDIF, FT4, CMP #### [place] [address] [place] [address] Abs Dillingham 0.59 k/uL Normal <0.87 [facility] Comment on above: Performed By: #### W SR, TSH, CBCDIF, FT4, CMP #### [place] [address] [place] [address] Abs Neut 2.87 k/uL Normal 1.45-7.50 [facility] Comment on above: Performed By: #### W SR, TSH, CBCDIF, FT4, CMP #### [place] [address] [place] [address] Absolute nRBC <0.01 Normal <0.01 [facility] Comment on above: Performed By: #### W SR, TSH, CBCDIF, FT4, CMP #### [facility] [address] [place] [address] Basophils/100 WBC (Bld) 0.4 % Normal C [facility] Comment on above: Performed By: #### W SR, TSH, CBCDIF, FT4, CMP #### [place] [address] [place] [address] DTYPE Auto Diff Normal [facility] Comment on above: Performed By: #### W SR, TSH, CBCDIF, FT4, CMP #### [place] [address] [place] [address] Eosinophils (Bld) [#/Vol] 0.08 10*3/uL Normal <0.46 [facility] Comment on above: Performed By: #### W SR, TSH, CBCDIF, FT4, CMP #### [place] [address] [place] [phone] Eosinophils/100 WBC (Bld) 1.5 % Normal [facility] Comment on above: Performed By: #### W SR, TSH, CBCDIF, FT4, CMP #### [place] [address] [place] [phone] Erythrocyte distribution width (RBC) [Ratio] 12.9 % Normal 11.5-15.0 [facility] Comment on above: Performed By: #### W SR, TSH, CBCDIF, FT4, CMP #### [place] [address] [place] [address] Hematocrit (Bld) [Volume fraction] 48.3 % Normal 39.0-51.0 [facility] Comment on above: Performed By: #### W SR, TSH, CBCDIF, FT4, CMP #### [place] [address] [place] [phone] Hemoglobin (Bld) [Mass/Vol] 16.2 g/dL Normal 13.0-17.0 [facility] Comment on above: Performed By: #### W SR, TSH, CBCDIF, FT4, CMP #### [place] [address] [place] [address] Lymphocytes (Bld) [#/Vol] 1.61 10*3/uL Normal 1.00-4.00 [facility] Comment on above: Performed By: #### W SR, TSH, CBCDIF, FT4, CMP #### [place] [address] [place], [place] [address] Lymphocytes/100 WBC (Bld) 31.1 % Normal [facility] Comment on above: Performed By: #### W SR, TSH, CBCDIF, FT4, CMP #### [address] [address] MCH 28.8 pG Normal 26.0-34.0 [facility] Comment on above: Performed By: #### W SR, TSH, CBCDIF, FT4, CMP #### [place] [address] MCHC (RBC) [Mass/Vol] 33.5 g/dL Normal 30.5-36.0 [facility] Comment on above: Performed By: #### W SR, TSH, CBCDIF, FT4, CMP #### [place] [address] MCV (RBC) [Entitic vol] 85.8 fL Normal 80.0-100.0 C [facility] Comment on above: Performed By: #### W SR, TSH, CBCDIF, FT4, CMP #### [address] [address] Monocytes/100 WBC (Bld) 11.4 % Normal C [facility] Comment on above: Performed By: #### W SR, TSH, CBCDIF, FT4, CMP #### [address] [address] Neutrophils/100 WBC (Bld) 55.6 % Normal [facility] Comment on above: Performed By: #### W SR, TSH, CBCDIF, FT4, CMP #### [address] [address] NRBCs 0.0 /100 WBC Normal 0 [facility] Comment on above: Performed By: #### W SR, TSH, CBCDIF, FT4, CMP #### [facility] [address] [place] [address] Platelet mean volume (Bld) [Entitic vol] 11.3 fL Normal 9.0-12.7 [facility] Comment on above: Performed By: #### W SR, TSH, CBCDIF, FT4, CMP #### [place] [address] [place] [address] Platelets (Bld) [#/Vol] 197 10*3/uL Normal 150-400 [facility] Comment on above: Performed By: #### W SR, TSH, CBCDIF, FT4, CMP #### [place] [address] [place] [address] RBC (Bld) [#/Vol] 5.63 10*6/uL Normal 4.20-6.00 [facility] Comment on above: Performed By: #### W SR, TSH, CBCDIF, FT4, CMP #### [place] [address] [place] [address] WBC (Bld) [#/Vol] 5.17 10*3/uL Normal 3.70-11.00 [facility] Comment on above: Performed By: #### W SR, TSH, CBCDIF, FT4, CMP #### [place] [address] [place] [address] CNOVon 07-08-2021 CNOV Office Visit (PEDSMT) CAMERON TERESA ([id number]) 1 M Date Time Provider Department 07/08/21 1:00 PM STARKS, JAXSON N PEDSMT During your visit today, we recorded [...] SALINE) 0.65 % nasal spray Use 1 [place] in the nose as needed. albuterol HFA [...] drinks Go! Be healthy, inside and out! [email or web address] Referring Provider: SELF [200] Allergies As of Date: 07/08/2021 (No Known Allergies) Date Reviewed: 07/08/2021 Reviewed by: Jaxson N Starks, DO - Fully Assessed Primary Visit Diagnosis:Hypothermi a due to exposure [T68.XXXA] Order(s):CBC + DIFF [SQCBCDIF] Order #: [id number] FUTURE SED RATE WESTERGREN [SQWSR] Order #: [id number] FUTURE T4 FREE/FREE THYROX [SQFT4] Order #: [id number] FUTURE TSH BLD [SQTSH] Order #: [id number] FUTURE COMP METABOLIC PANEL [SQCMP] Order #: [id number] FUTURE Prescriptions as of 07/08/2021 - ibuprofen (MOTRIN IB) 200 mg tablet Take 600 mg by mouth every 6 hours as needed. - s (more content not included)... Normal [facility] Comp Metabolic Panelon 07-08 Albumin [Mass/Vol] 4.9 g/dL High 3.2-4.5 [facility] Comment on above: Performed By: #### W SR, TSH, CBCDIF, FT4, CMP #### [facility] [address] [place], [place] [address] ALP [Catalytic activity/Vol] 122 U/L Normal 55-149 [facility] Comment on above: Result Comment: Refe rence ranges were not locally established for this patient's age group. The normal values are based on the following source: Loida DODSON, Yusuf MORALES, et al. CLSI based transference of the CALIPER database of pediatric reference intervals from Gomez to Pema, Ortho, Jeison, and Siemens Clinical Chemistry Assays: Direct validation using reference samples from the [facility] cohort. Clin Biochem. Performed By: #### W SR, TSH, CBCDIF, FT4, CMP #### [facility] [address] [place], [place] [address] ALT [Catalytic activity/Vol] 25 U/L Normal 10-54 [facility] Comment on above: Result Comment: (NOT E) Reference ranges for this patient's age group have not been established. These reference ranges reflect verified or established ranges for the adult population. Interpret these ranges wtih caution using clinical context and additional reference resources. Performed By: #### W SR, TSH, CBCDIF, FT4, CMP #### [facility] [address] [place], [place] [address] Anion gap [Moles/Vol] 12 mmol/L Normal 9-18 [facility] Comment on above: Result Comment: (NOT E) Reference ranges for this patient's age group have not been established. These reference ranges reflect verified or established ranges for the adult population. Interpret these ranges with caution using the clinical context and additional reference resources. Performed By: #### W SR, TSH, CBCDIF, FT4, CMP #### [facility] [address] [place], [place] [address] AST [Catalytic activity/Vol] 25 U/L Normal 14-40 [facility] Comment on above: Result Comment: (NOT E) Reference ranges for this patient's age group have not been established. These reference ranges reflect verified or established ranges for the adult population. Interpret these ranges with caution using clinical context and additional reference resources. Performed By: #### W SR, TSH, CBCDIF, FT4, CMP #### [facility] [address] [place], [place] [address] Bilirubin [Mass/Vol] 0.3 mg/dL Normal 0.2-1.3 [facility] Comment on above: Result Comment: (NOT E) Reference ranges for this patient's age group have not been established. These reference ranges reflect verified or established ranges for the adult population. Interpret these ranges with caution using the clinical context and additional reference resources. Performed By: #### W SR, TSH, CBCDIF, FT4, CMP #### [facility] [employer] [address] [place], [place] [address] Calcium [Mass/Vol] 10.2 mg/dL Normal 8.4-10.2 [facility] Comment on above: Performed By: #### W SR, TSH, CBCDIF, FT4, CMP #### [facility] [address] [place], [place] [address] Chloride [Moles/Vol] 105 mmol/L Normal 97-105 [facility] Comment on above: Result Comment: (NOT E) Reference ranges for this patient's age group have not been established. These reference ranges reflect verified or established ranges for the adult population. Interpret these ranges with caution using the clinical context and additional reference resources. Performed By: #### W SR, TSH, CBCDIF, FT4, CMP #### [facility] [employer] [address] [place], [place] [address] CO2 [Moles/Vol] 24 mmol/L Normal 22-30 [facility] Comment on above: Result Comment: (NOT E) Reference ranges for this patient's age group have not been established. These reference ranges reflect verified or established ranges for the adult population. Interpret these ranges with caution using the clinical context and additional reference resources. Performed By: #### W SR, TSH, CBCDIF, FT4, CMP #### [facility] [employer] [address] [place], [place] [address] Creatinine [Mass/Vol] 1.19 mg/dL Normal 0.73-1.22 [facility] Comment on above: Result Comment: Refe rence ranges for this patient's age group have not been established. These reference ranges reflect verified or established ranges for the adult population. Interpret these ranges with caution using the clinical context and additional reference resources. Performed By: #### W SR, TSH, CBCDIF, FT4, CMP #### [facility] [employer] [address], [place] [address] eGFR-Ped. Factor 0.35 Normal [facility] Comment on above: Result Comment: eGFR (Estimated [...] W SR, TSH, CBCDIF, FT4, CMP #### [facility] [employer] [address], [place] [address] Glucose [Mass/Vol] 70 mg/dL Low 74-99 [facility] Comment on above: Result Comment: Refe rence ranges for this patient's age group have not been established. These reference ranges reflect verified or established ranges for the adult population. Interpret these ranges with caution using the clinical context and additional reference resources. The [place] [employer] (ADA) provides guidance for cutoff [...] Standards of Medical Care in Diabetes 2016, [place] [employer]. Diabetes Care. 2016.39(Suppl 1). Performed By: #### W SR, TSH, CBCDIF, FT4, CMP #### [facility] [address] [place], [place] [address] Potassium [Moles/Vol] 4.9 mmol/L Normal 3.7-5.1 [facility] Comment on above: Result Comment: (NOT E) Reference ranges for this patient's age group have not been established. These reference ranges reflect verified or established ranges for the adult population. Interpret these ranges with caution using the clinical context and additional reference resources. Performed By: #### W SR, TSH, CBCDIF, FT4, CMP #### [facility] [address] [place], [place] [address] Protein [Mass/Vol] 7.3 g/dL Normal 6.3-8.0 [facility] Comment on above: Result Comment: (NOT [...] MK, Ameya I, Teresita M, et al. [facility] Initiative on Reference Interval Database(CALIPER): pediatric reference intervals for an integrated clinical chemistry and immunoassay analyzer, Gomez RESIDENTIAL [employer]AR SALES CONSULTANT ps7892. Clin Biochem 2009;42:885-891. Performed By: #### W SR, TSH, CBCDIF, FT4, CMP #### [place] [address] [place], [place] [address] Sodium [Moles/Vol] 141 mmol/L Normal 136-144 [facility] Comment on above: Result Comment: (NOT E) Reference ranges for this patient's age group have not been established. These reference ranges reflect verified or established ranges for the adult population. Interpret these ranges with caution using the clinical context and additional reference resources. Performed By: #### W SR, TSH, CBCDIF, FT4, CMP #### [facility] [employer] [address] [place], [place] [address] Urea nitrogen [Mass/Vol] 15 mg/dL Normal 5-18 [facility] Comment on above: Performed By: #### W SR, TSH, CBCDIF, FT4, CMP #### [facility] [address] [place], [place] [address] Free T4on 07-08-2021 Free T4 [Mass/Vol] 1.4 ng/dL Normal 0.8-2.8 [facility] Comment on above: Performed By: #### W SR, TSH, CBCDIF, FT4, CMP #### [facility] [address] [place], [place] [address] Sed Rate Westergrenon 2021 Sed Rate Westergren 2 mm/hr Normal 0-15 [facility] Comment on above: Performed By: #### W SR, TSH, CBCDIF, FT4, CMP #### [facility] [employer] [address] [place], [place] [address] TSHon 07-08-2021 TSH Qn 2.020 m[IU]/L Normal 0.510-4.300 [facility] Comment on above: Result Comment: Refe rence ranges were not locally established for this patient's age group. The normal values are based on the following source: Phil Block V. Reference Ranges for Adults and Children: Pre-analytical Considerations. [facility] Performed By: #### W SR, TSH, CBCDIF, FT4, CMP #### [facility] [employer] [address] [place], [place] [address] ED NOTEon 05-16-2021 ED NOTE HNO ID: [id number] Author: Zara Enciso RN Service: ? Author Type: Registered Nurse Type: ED Notes Filed: 05/16/2021 8:50 PM Note Text: Spacer teaching done and spacer provided [facility] ED NOTE HNO ID: [id number] Author: Zara Enciso RN Service: ? Author Type: Registered Nurse Type: ED Notes Filed: 05/16/2021 8:32 PM Note Text: No spacers available in ED. RT notified and will bring from store room [facility] ED NOTE HNO ID: [id number] Author: Zara Enciso RN Service: ? Author Type: Registered Nurse Type: ED Notes Filed: 05/16/2021 6:23 PM Note Text: Strep swab obtained. Mom states covid swab done yesterday via [facility] ED NOTE HNO ID: [id number] Author: Carter Cadena RN Service: ? Author Type: Registered Nurse Type: ED Notes Filed: 05/16/2021 5:17 PM Note Text: Pt bib mother for cough sore throat and chest discomfort x 5 days Seen by pmd yesterday [facility] ED PROV NOTEon 05-16-2021 ED PROV NOTE HNO ID: [id number] Author: Yvette E Tress, DO Service: Emergency Medicine Author Type: Physician [...] nursing note reviewed. Exam conducted with a telecom billing analyst present. Constitutional: General: He is not in [...] Motor: No weak (more content not included)... [facility] XR CHEST 1V FRONTAL PORTon 1 07-16-2020 [...] on May 16 2021 7:32PM EST [id number] [facility] CNOVon 05-15-2021 CNOV Office Visit (PEDSMT) CAMERON TERESA ([id number]) 1 M Date Time Provider Department 05/15/21 12:10 PM JAXSON STARKS PEDJACK During your visit today, we recorded the [...] drinks Go! Be healthy, inside and out! [email or web address] Referring Provider: SELF [200] Allergies As of Date: 05/15/2021 (No Known Allergies) Date Reviewed: 05/15/2021 Reviewed by: Jaxson Starks DO - Fully Assessed Reason for Visit: Cough [28] Cmt: x 4 days Headaches [3461] Primary Visit Diagnosis:Headache, unspecified headache type [R51.9] Order(s):COVID, FLU A/B + RSV, ROUTINE [SQCVFLRS] Order #: [id number] Prescriptions as of 05/15/2021 - hydrOXYzine pamoate [...] drinks Go! Be healthy, inside and out! [email or web address] Disposition: Return if symptoms worsen or fail to improve. Follow-up and Disposition History for Encounter Date Provider Department Center (more content not included)... Normal [facility] Cepheid Bill only (EXCFR)on 05-15-2021 Cepheid Bill only (EXCFR) Billed for services performed Normal [facility] Comment on above: Performed By: #### C FRCEP, EXCFR #### [place] [address] [place] [address] EXCOVD, Flu A/B, RSV (On int erfaces 1102,1120)on 05-15-2021 Influenza A PCR Negative Normal [facility] Comment on above: Result Comment: This test has been authorized by FDA under an Emergency Use Authorization (EUA). Performed By: #### C FRCEP, EXCFR #### [place] [address] Influenza B PCR Negative Normal [facility] Comment on above: Result Comment: This test has been authorized by FDA under an Emergency Use Authorization (EUA). Performed By: #### C FRCEP, EXCFR #### [place] [address] RSV PCR Negative Normal [facility] Comment on above: Result Comment: This test has been authorized by FDA under an Emergency Use Authorization (EUA). Performed By: #### C FRCEP, EXCFR #### [facility] [employer] [address] [place] [address] SARS-CoV-2 (COVID-19) RNA JERRELL+probe Ql (Unsp spec) UPPER RESPIRATORY TRACT SWAB Normal [facility] Comment on above: Performed By: #### C FRCEP, EXCFR #### [place] [address] [place] [address] SARS-CoV-2 (COVID-19) RNA JERRELL+probe Ql (Unsp spec) Negative for COVID19 (SARS CoV2) by RT-PCR or equivalent method. Normal Negative for COVID19 (SARS CoV2) by RT-PCR or equivalent method. [facility] Comment on above: Result Comment: This test has been authorized by FDA under an Emergency Use Authorization (EUA). Test performed by [facility], [facility] [place], [address] [place] [address]. Performed By: #### C FRCEP, EXCFR #### [place] [phone] GC/CHLAM AMPLIFICATION URINE [CCL]on 10-30-2020 Chlamydia Amplif, Ur Negative Normal [facility] Comment on above: Result Comment: [place] [address] Benito Uribe III, M.D. [id number] Performed By: #### 2 40166 #### [facility],[address] [place], [place] [id number] UGCAMP Negative Normal [facility] Comment on above: Performed By: #### 2 47841 #### [facility],[address] [place] [address] GC/Chlamydia Amp, Uron 10-30 Chlamydia Amplif, Ur CLNEG Normal [facility] Comment on above: Performed By: #### U GCCT #### [facility] [address] [place] [phone] GC Amplification, Ur NGNEG Normal [facility] Comment on above: Performed By: #### U GCCT #### [facility] [address] [place] [phone] CBC + DIFFon 10-24-2020 Baso # 0.00 x10EE3/UL Normal 0.00 - 0.10 [facility] Comment on above: Performed By: #### 2 54919 #### [facility],[address] [place] [address] Basophils/100 WBC (Bld) 0.8 % Normal 0.0 - 2.0 [facility] Comment on above: Performed By: #### 2 17333 #### [facility],[address] [place] [address] CBC + DIFF Normal [facility] Comment on above: Result Comment: CBC- COMPLETE BLOOD COUNT Performed By: #### 2 84910 #### [facility],[address] [place] [address] EO # 0.10 x10EE3/UL Normal 0.00 - 0.50 [facility] Comment on above: Performed By: #### 2 20712 #### [place] [address] Eosinophils/100 WBC (Bld) 1.9 % Normal 0.0 - 7.0 [facility] Comment on above: Performed By: #### 2 97260 #### [facility],[address] [place] [address] Erythrocyte distribution width (RBC) [Ratio] 14.3 % Normal 12.0 - 15.6 [facility] Comment on above: Performed By: #### 2 78135 #### [facility],[address] [place] [address] Hematocrit (Bld) [Volume fraction] 43.5 % Normal 40.0 - 52.0 [facility] Comment on above: Performed By: #### 2 35296 #### [facility],[address] [place] [address] Hemoglobin (Bld) [Mass/Vol] 14.9 g/dL Normal 13.0 - 17.5 [facility] Comment on above: Performed By: #### 2 31901 #### [place] [address] Lymph # 1.30 x10EE3/UL Normal 0.80 - 2.80 [facility] Comment on above: Performed By: #### 2 39049 #### [facility],[address] [place] [address] Lymphocytes/100 WBC (Bld) 30.7 % Normal 20.0 - 45.0 [facility] Comment on above: Performed By: #### 2 88448 #### [facility],[address] [place] [address] MANUAL DIFF N/A Normal [facility] Comment on above: Performed By: #### 2 21148 #### [facility],[address] [place] [address] MCH (RBC) [Entitic mass] 29 pg Normal 27 - 33 [facility] Comment on above: Performed By: #### 2 29208 #### [facility],[address] [place] [address] MCHC 34 X10 3 Normal 32 - 36 [facility] Comment on above: Performed By: #### 2 12328 #### [facility],[address] [place] [address] MCV (RBC) [Entitic vol] 84 fL Normal 81 - 98 [facility] Comment on above: Performed By: #### 2 80227 #### [facility],[address] [place] [address] [place] # 0.40 x10EE3/UL Normal 0.20 - 1.00 [facility] Comment on above: Performed By: #### 2 59238 #### [facility],[address] [place] [address] MONOS % 8.8 % Normal 0.0 - 10.0 [facility] Comment on above: Performed By: #### 2 40685 #### [facility],[address] [place] [address] Morphology Daniel (Bld) [Interp] N/A Normal [facility] Comment on above: Result Comment: {CD] Performed By: #### 2 11016 #### [facility],[address] [place] [address] Neut # 2.50 x10EE3/UL Normal 1.50 - 7.10 [facility] Comment on above: Performed By: #### 2 32692 #### [facility],[address] [place] [address] Neutrophils/100 WBC (Bld) 57.8 % Normal 46.0 - 76.0 [facility] Comment on above: Performed By: #### 2 52992 #### [facility],[address] [place] [address] PLATELET 142 x10EE3/UL Low 150 - 450 [facility] Comment on above: Performed By: #### 2 58749 #### [facility],[address] [place] [address] Platelet mean volume (Bld) [Entitic vol] 9.7 fL Normal 6.4 - 10.5 [facility] Comment on above: Result Comment: AUTO MATED DIFFERENTIAL Performed By: #### 2 57003 #### [facility],[address] [place] [address] RBC 5.16 x 10EE6/UL Normal 4.50 - 6.00 [facility] Comment on above: Performed By: #### 2 36703 #### [facility],[address] [place] [address] WBC 4.3 x 10EE3/UL Low 4.5 - 10.8 [facility] Comment on above: Performed By: #### 2 30511 #### [facility],[address] [place] [address] CMP with eGFRon 10-24-2020 AGE 15 years Normal [facility] Comment on above: Performed By: #### 2 24220 #### [facility],[address] [place] [address] Albumin [Mass/Vol] 4.0 g/dL Normal 3.4 - 5.0 [facility] Comment on above: Performed By: #### 2 60125 #### [facility],[address] [place] [address] Albumin/Globulin [Mass ratio] 1.4 {ratio} Normal 0.9 - 1.6 [facility] Comment on above: Performed By: #### 2 72426 #### [facility],[address] [place] [address] ALK PHOS 113 U/L Normal 46 - 116 [facility] Comment on above: Performed By: #### 2 24953 #### [facility],[address] [place] [address] 28240 ALT [Catalytic activity/Vol] 23 U/L Normal 16 - 63 [facility] Comment on above: Performed By: #### 2 74608 #### [facility],[address] [place] [address] Anion gap [Moles/Vol] 11 mmol/L Normal 10 - 20 [facility] Comment on above: Performed By: #### 2 89436 #### [facility],[address] [place] [address] AST [Catalytic activity/Vol] 21 U/L Normal 15 - 37 [facility] Comment on above: Performed By: #### 2 56458 #### [facility],[address] [place] [address]32[address] B/C RATIO 17 ratio Normal 0 - 30 [facility] Comment on above: Performed By: #### 2 62666 #### [facility],[address] [place] [address] Bilirubin [Mass/Vol] 0.5 mg/dL Normal 0.2 - 1.0 [facility] Comment on above: Performed By: #### 2 15176 #### [facility],[address] [place] [address] Calcium [Mass/Vol] 8.9 mg/dL Normal 8.5 - 10.1 [facility] Comment on above: Performed By: #### 2 10664 #### [facility],[address] [place] [address] 67149 Chloride [Moles/Vol] 104 mmol/L Normal 98 - 107 [facility] Comment on above: Performed By: #### 2 36354 #### [facility],[address] [place] [address] 624[address] CMP with eGFR Normal [facility] Comment on above: Result Comment: COMP REHENSIVE METABOLIC PANEL Performed By: #### 2 25925 #### [facility],[address] [place] [address] 197[address] CO2 [Moles/Vol] 31.3 mmol/L Normal 21.0 - 32.0 [facility] Comment on above: Performed By: #### 2 22557 #### [facility],[address] [place] [address] 577[address] Creatinine [Mass/Vol] 1.1 mg/dL Normal 0.7 - 1.3 [facility] Comment on above: Performed By: #### 2 78304 #### [facility],[address] [place] [address] GFR/1.73 sq M.predicted among non-blacks MDRD (S/P/Bld) [Vol rate/Area] mL/min/{1.73_m2} Normal 60 - 999 [facility] Comment on above: Performed By: #### 2 42929 #### [facility],[address] [place] [address] 97[address] Result Comment: ACCO RDING TO THE NATIONAL KIDNEY DISEASE EDUCATION PROGRAM(NKDE), A NORMAL eGFR IS A VALUE GREATER THAN OR EQUAL TO 60 ML/MIN/1.73 SQ METERS. CHRONIC KIDNEY DISEASE: <60mL/MIN/1.73 SQ METERS KIDNEY FAILURE: <15mL/MIN/1.73 SQ METERS THIS TEST SHOULD ONLY BE USED FOR PATIENTS 18 YEARS OF AGE AND OLDER. Globulin (S) [Mass/Vol] 2.8 g/dL Normal 1.5 - 3.8 [facility] Comment on above: Performed By: #### 2 26793 #### [facility],[address] [place] [address]59[address] Glucose [Mass/Vol] 85 mg/dL Normal 74 - 106 [facility] Comment on above: Performed By: #### 2 59555 #### [facility],[address] [place] [address]28[address] Potassium [Moles/Vol] 4.0 mmol/L Normal 3.5 - 5.1 [facility] Comment on above: Performed By: #### 2 25649 #### [facility],[address] [place] [address] 56875 Protein [Mass/Vol] 6.8 g/dL Normal 6.4 - 8.2 [facility] Comment on above: Performed By: #### 2 32678 #### [facility],[address] [place] [address] 39339 Sodium [Moles/Vol] 142 mmol/L Normal 136 - 145 [facility] Comment on above: Performed By: #### 2 57575 #### [facility],[address] [place] [address] 27167 Urea nitrogen [Mass/Vol] 19 mg/dL High 7 - 18 [facility] Comment on above: Performed By: #### 2 98291 #### [facility],[address] [place] [address] DRUG SCREEN URINE MEDICon AMPHETAMINES Negative Normal [facility] Comment on above: Performed By: #### 2 39313 #### [facility],[address] [place] [address] 76287 B-DIAZEPINES Negative Normal [facility] Comment on above: Performed By: #### 2 71937 #### [facility],[address] [place] [address] [address] Negative Normal [facility] Comment on above: Performed By: #### 2 90379 #### [facility],[address] [place] [address] COCAINE Negative Normal [facility] Comment on above: Performed By: #### 2 41552 #### [facility],[address] [place], [place] [id number] DRUG SCREEN URINE MEDIC Normal [facility] Comment on above: Result Comment: DRUG SCREEN - URINE Performed By: #### 2 00887 #### [facility],[address] [place] [address] METHADONE Negative Normal [facility] Comment on above: Performed By: #### 2 23987 #### [facility],[address] [place] [address] OPIATES Negative Normal [facility] Comment on above: Performed By: #### 2 19606 #### [facility],[address] [place] [address] PCP Negative Normal [facility] Comment on above: Performed By: #### 2 92947 #### [facility],[address] [place] [address] THC Negative Normal [facility] Comment on above: Result Comment: MOISÉS ENTS RECEIVING PROTON PUMP INHIBITORS MAY DEMONSTRATE FALSE POSITIVE THC/CANNABINOID RESULTS. AN ALTERNATIVE CONFIRMATORY METHOD SHOULD BE CONSIDERED TO VERIFY POSITIVE RESULTS. Performed By: #### 2 92041 #### [facility],[address] [place] [address] TSHon 10-24-2020 TSH Qn 1.62 m[IU]/L Normal 0.51 - 4.13 [facility] Comment on above: Performed By: #### 2 46100 #### [facility],[address] [place], [place] [address] CNPNon 10-21-2020 CNPN Telephone ([facility]) BRIICAMERON ([id number]) 1 M Date Time Provider Department 10/21/20 [...] by RIGOBERTO BROWN LPN on 10/21/20 Normal [facility] ACUTE TOXICOLOGY PANEL, LACY Cano 09-24-2020 Acetaminophen [Mass/Vol] <10.0 Normal 5.0 - 20.0 [facility] Comment on above: Performed By: #### D RUBL #### [place] [id number] [place] [address] Ethanol [Mass/Vol] mg/dL Normal [facility] Comment on above: Result Comment: FOR MEDICAL USE ONLY. . REF VALUES <10 Performed By: #### D RUBL #### [facility] [address] [place] [address] SALICYLATE <3 Normal 4 - 20 [facility] Comment on above: Performed By: #### D RUBL #### [address] [address] CBC AND DIFFERENTIALon 09-24 % AUTOMATED IMMATURE GRAN 0.1 % Normal 0.0 - 1.0 [facility] Comment on above: Result Comment: Jessica ture Granulocyte Count (IG) includes promyelocytes, myelocytes and metamyelocytes but does not include bands. Percent differential counts (%) should be interpreted in the context of the absolute cell counts (cells/L). Performed By: #### C BCDF #### [address] [address] Basophils (Bld) [#/Vol] 0.03 10*3/uL Normal 0.00 - 0.1 0 [facility] Comment on above: Performed By: #### C BCDF #### [address] [address] Basophils/100 WBC (Bld) 0.4 % Normal 0.0 - 1.[address] [facility] Comment on above: Performed By: #### C BCDF #### [address] [address] Eosinophils (Bld) [#/Vol] 0.04 10*3/uL Normal 0.00 - 0.70 [facility] Comment on above: Performed By: #### C BCDF #### [address] [address] Eosinophils/100 WBC (Bld) 0.5 % Normal 0.0 - 5.0 [facility] Comment on above: Performed By: #### C BCDF #### [address] [address] Erythrocyte distribution width (RBC) [Ratio] 13.3 % Normal 11.5 - 14.5 [facility] Comment on above: Performed By: #### C BCDF #### [address] [address] Hematocrit (Bld) [Volume fraction] 47.2 % Normal 37.0 - 49.0 [facility] Comment on above: Performed By: #### C BCDF #### [address] [address] Hemoglobin (Bld) [Mass/Vol] 15.7 g/dL Normal 13.0 - 16.0 [facility] Comment on above: Performed By: #### C BCDF #### [address] [address] Lymphocytes (Bld) [#/Vol] 1.92 10*3/uL Normal 1.80 - 4.80 [facility] Comment on above: Performed By: #### C BCDF #### [address] [address] Lymphocytes/100 WBC (Bld) 23.6 % Normal 28.0 - 48.0 [facility] Comment on above: Performed By: #### C BCDF #### [address] [address] MCHC (RBC) [Mass/Vol] 33.3 g/dL Normal 31.0 - 37.0 [facility] Comment on above: Performed By: #### C BCDF #### [address] [address] MCV (RBC) [Entitic vol] 87 fL Normal 78 - [address] [facility] Comment on above: Performed By: #### C BCDF #### [address] [address] Monocytes (Bld) [#/Vol] 0.61 10*3/uL Normal 0.10 - 1.0 0 [facility] Comment on above: Performed By: #### C BCDF #### [address] [address] Monocytes/100 WBC (Bld) 7.5 % Normal 3.0 - 9.[address] [facility] Comment on above: Performed By: #### C BCDF #### [address] [address] Neutrophils (Bld) [#/Vol] 5.52 10*3/uL Normal 1.20 - 7.70 [facility] Comment on above: Performed By: #### C BCDF #### [address] [address] Neutrophils/100 WBC (Bld) 67.9 % Normal 33.0 - 69.0 [facility] Comment on above: Performed By: #### C BCDF #### [address] [address] Platelets (Bld) [#/Vol] 184 10*3/uL Normal 150 - 400 [facility] Comment on above: Performed By: #### C BCDF #### [address] [address] RBC (Bld) [#/Vol] 5.41 x10E12/L High 4.50 - 5.30 [facility] Comment on above: Performed By: #### C BCDF #### [address] [address] WBC (Bld) [#/Vol] 8.1 10*3/uL Normal 4.5 - 13.5 [facility] Comment on above: Performed By: #### C BCDF #### [address] [address] COMPREHENSIVE PANELon 2020 Albumin [Mass/Vol] 4.7 g/dL Normal 3.4 - 5.0 [facility] Comment on above: Performed By: #### C MP #### [address] [address] ALP [Catalytic activity/Vol] 132 U/L Normal 33 - 139 [facility] Comment on above: Performed By: #### C MP #### [address] [address] ALT [Catalytic activity/Vol] 18 U/L Normal 3 - 28 [facility] Comment on above: Result Comment: Moisés ents treated with Sulfasalazine may generate falsely decreased results for ALT. Performed By: #### C MP #### [address] [address] Anion gap [Moles/Vol] 11 mmol/L Normal 10 - 30 [facility] Comment on above: Performed By: #### C MP #### [address] [address] AST [Catalytic activity/Vol] 26 U/L Normal 9 - 32 [facility] Comment on above: Performed By: #### C MP #### [address] [address] Bilirubin [Mass/Vol] 0.4 mg/dL Normal 0.0 - 0.9 [facility] Comment on above: Performed By: #### C MP #### [address] [address] Calcium [Mass/Vol] 9.7 mg/dL Normal 8.5 - 10.7 [facility] Comment on above: Performed By: #### C MP #### [address] [address] Chloride [Moles/Vol] 106 mmol/L Normal 98 - 107 [facility] Comment on above: Performed By: #### C MP #### [address] [address] Creatinine [Mass/Vol] 1.01 mg/dL Normal 0.60 - 1.10 [facility] Comment on above: Performed By: #### C MP #### [address] [address] Glucose [Mass/Vol] 118 mg/dL High 74 - 99 [facility] Comment on above: Performed By: #### C MP #### [address] [address] HCO3 (Bld) [Moles/Vol] 26 mmol/L Normal 18 - 27 [facility] Comment on above: Performed By: #### C MP #### [address] [address] Potassium [Moles/Vol] 3.9 mmol/L Normal 3.5 - 5.3 [facility] Comment on above: Performed By: #### C MP #### [address] [address] Protein [Mass/Vol] 7.2 g/dL Normal 6.2 - 7.7 [facility] Comment on above: Performed By: #### C MP #### [address] [address] Sodium [Moles/Vol] 139 mmol/L Normal 136 - 145 [facility] Comment on above: Performed By: #### C MP #### [address] [address] Urea nitrogen [Mass/Vol] 15 mg/dL Normal 6 - 23 [facility] Comment on above: Performed By: #### C MP #### [address] [address] DRUG SCREEN,URINEon 09-25-19 21 AMPHETAMINE SCREEN,U Negative Normal NEGATIVE [facility] Comment on above: Result Comment: CUTO FF LEVEL: 500 NG/ML Cross-reactivity has been reported with high concentrations of the following drugs: buproprion, chloroquine, chlorpromazine, ephedrine, mephentermine, fenfluramine, phentermine, phenylpropanolamine, pseudoephedrine, and propranolol. Performed By: #### D RUG3 #### [address] [address] BARBITURATES SCREEN,U Negative Normal NEGATIVE [facility] Comment on above: Result Comment: CUTO FF LEVEL: 200 NG/ML Performed By: #### D RUG3 #### [address] [address] BENZODIAZEPINES SCREEN,U Negative Normal NEGATIVE [facility] Comment on above: Result Comment: CUTO FF LEVEL: 200 NG/ML Performed By: #### D RUG3 #### [address] [address] CANNABINOIDS SCREEN,U Negative Normal NEGATIVE [facility] Comment on above: Result Comment: CUTO FF LEVEL: 50 NG/ML Performed By: #### D RUG3 #### [address] [address] COCAINE METABOLITE SCREEN,U Negative Normal NEGATIVE [facility] Comment on above: Result Comment: CUTO FF LEVEL: 150 NG/ML Performed By: #### D RUG3 #### [address] [address] DRUG SCREEN COMMENT SEE BELOW Normal [facility] Comment on above: Result Comment: Drug screen results are presumptive and should not be used to assess compliance with prescribed medication. Contact the performing [facility] laboratory to add-on definitive confirmatory [...] directors. Performed By: #### D RUG3 #### [address] [address] FENTANYL SCREEN,URINE Negative Normal NEGATIVE [facility] Comment on above: Result Comment: CUTO FF LEVEL: 1 NG/ML Performed By: #### D RUG3 #### [address] [address] METHADONE SCREEN,U Negative Normal NEGATIVE [facility] Comment on above: Result Comment: CUTO FF LEVEL: 150 NG/ML The metabolite V-hzczd-vrpnbtqfstgdra (LAAM) is not detected by this method in concentrations that would be found in the urine of patients on LAAM therapy. Performed By: #### D RUG3 #### [address] [address] OPIATES SCREEN,U Negative Normal NEGATIVE [facility] Comment on above: Result Comment: CUTO FF LEVEL: 300 NG/ML The opiate screen does not detect fentanyl, meperidine, or tramadol. Oxycodone is not consistently detected (refer to Oxycodone Screen, Urine result). Performed By: #### D RUG3 #### [address] [address] OXYCODONE SCREEN,U Negative Normal NEGATIVE [facility] Comment on above: Result Comment: CUTO FF LEVEL: 100 NG/ML This test will accurately detect both oxycodone and oxymorphone. Performed By: #### D RUG3 #### [address] [address] PCP SCREEN,U Negative Normal NEGATIVE [facility] Comment on above: Result Comment: CUTO FF LEVEL: 25 NG/ML Cross-reactivity has been reported with dextromethorphan. Performed By: #### D RUG3 #### [id number] [place] [address] Provider Note - ED v2on 08-27 Provider [...] home. He can indeed go back to [facility] just not tonight. They would need to go through the intake process in the morning. Stepmother also has other applications out to places such as [employer] for the patient and are waiting to hear back from them. Patient is stable. Mother and stepmother feel that the child is stable at this point time to be in their custody and they will take the patient home at this time. I did attempt to contact patient's physician at the [facility] facility Dr. Laureano with no success. Family [...] 36.3 09-23-2020 23:20 Heart Rate (beats/min): 65 03-30-2021 23:20 Respirations (breaths/min): 18 09-23-2020 23:20 SpO2 [...] Last Updated: 24-Sep-2020 00:45 by MANDEEP COOK) [facility] Risk Screen - PEDS Emergency on 09-24-2020 Risk Screen - PEDS Emergency Preferred Language: Preferred Language: Preferred Language for Discussing Health Care (patient/designee)En glish Advanced Directives: Advance Directive/DNRnot applicable Learning Assessment (Patient): Patient is Able to be Assessed for Learningyes Educational [id number] grade Factors Influence Readiness to Learnnone, ready to learn Factors Impact Ability to Learnnone Devices/Methods Used to Communicatenone Learning Preferencesskill demonstration, verbal instruction, written material Cultural Considerationsnone Developmental Considerationsnone Catholic Considerationsnone Other Learnersfamily Learning Assessment (Other Learner): Other learner availableyes Other Learner is Able to be Assessed for Learningyes Learnerfamily Factors Influencing Readiness to Learnnone, ready to learn Factors that Impact Ability to Learnnone Devices/Methods Used to Communicatenone Learning Preferenceswritten material Cultural Considerationsnone Developmental Considerationsnone Catholic Considerationsnone Family Violence PEDS: Family Violence Screen [...] Screen: Significant IndicatorsComplete Electronic Signatures: America Horn (RN) (Signed 24-Sep-2020 01:06) Authored: Preferred Language, Advanced Directives, Learning Assessment (Patient), Learning Asessment (Other Learner), Family Violence PEDS, Fall: Pediatric Humpty Dumpty, Respiratory / Cough /TB, Smoking/Social History (Required 13 years or older) Last Updated: 24-Sep-2020 01:06 by America Horn) Normal [facility] Triage - ED Pedson Triage - ED [...] no Acuity Level: 2 Peds Complaint Code ([facility] ONLY): N/A [facility] The patient and/or guardian verbally acknowledges placement for services into the following (when Urgent Care Service hours are operating): emergency department ABCD PRIMARY ASSESSMENT CAMERON TERESA's primary assessment is Within Defined Limits. The airway is open and patent. Breathing spontaneous and unlabored with clear breath sounds bilaterally. Circulation is normal with good peripheral pulses. Skin is warm and dry and color is normal for race. Alert and appropriate for age. RISK SCREEN [place] Suicide Risk Screen Risk Screen Not Applicable/Able [...] History Last Updated: 24-Sep-2020 01:01 by America Horn (AGUILA) Normal [facility] Drugon 09-23-2020 Ethanol [Mass/Vol] Alcohol <0.010 Performed at [facility] [address] [facility] [address] GM/DL (0-0.010 GM/DL) 0 - 0.010 GM/DL [facility] Hematologyon 09-23-2020 Basophils (Bld) [#/Vol] Abs Baso 0.04 K/ UL (0.00-0.22 K/UL) 0.00 - 0.22 K/UL S Basophils/100 WBC (Bld) Basophil 0.30 % (0-1 %) 0 - 1 % [facility] Eosinophils (Bld) [#/Vol] Abs Eos 0.01 K/UL (0-0.45 K/UL) 0 - 0.45 K/UL S Eosinophils/100 WBC (Bld) Eosinophil 0.10 % (0-3 %) 0 - 3 % [facility] Hematocrit (Bld) [Volume fraction] HCT 47.3 % H (36-47 %) High 36 - 47 % S Hemoglobin (Bld) [Mass/Vol] HGB 15.1 GM/DL (12.0-15.2 GM/DL) 12.0 - 15.2 GM/DL S Lymphocytes (Bld) [#/Vol] Abs Lymph 2.24 K/UL (1.2-3.2 K/UL) 1.2 - 3.2 K/UL S Lymphocytes/100 WBC (Bld) Lymphocyte 18.60 % L (21-51 %) Low 21 - 51 % S MCH (RBC) [Entitic mass] MCH 28.5 PG (25-35 PG) 25 - 35 PG S MCV (RBC) [Entitic vol] MCV 89.2 FL (78- 96 FL) 78 - 96 FL [facility] Monocytes (Bld) [#/Vol] Abs [place] 0.87 K/ UL H (0-0.8 K/UL) High 0 - 0.8 K/UL [facility] Monocytes/100 WBC (Bld) Monocyte 7.20 % (0-8 %) 0 - 8 % [facility] Neutrophils (Bld) [#/Vol] Abs.Neut.Calculated 8.88 K/UL (Reference Range: not available) Performed at [address] [address] [facility] Neutrophils (Bld) [#/Vol] Abs Neut 8.88 K/UL H (1.5-8.0 K/UL) High 1.5 - 8.0 K/UL [facility] Platelets (Bld) [#/Vol] PLT 186 K/UL (150-450 K/UL) 150 - 450 K/UL [facility] RBC (Bld) [#/Vol] RBC 5.30 M/UL H (4.5-5.1 M/UL) High 4.5 - 5.1 M/UL [facility] WBC (Bld) [#/Vol] WBC 12.1 K/UL (4.5-13.0 K/UL) 4.5 - 13.0 K/UL [facility] Metabolic Panelon 09-23-2020 Albumin [Mass/Vol] Albumin 4.6 GM/DL (3.5-5.0 GM/DL) 3.5 - 5.0 GM/DL [facility] ALT [Catalytic activity/Vol] ALT 17 U/L (5-40 U/L) Performed at [address] [address] 5 - 40 U/L [facility] Anion gap [Moles/Vol] Anion Gap 14 MMOL/ L (0-19 MMOL/L) 0 - 19 MMOL/L [facility] AST [Catalytic activity/Vol] AST 26 U/L (5-40 U/L) 5 - 40 U/L [facility] Bilirubin [Mass/Vol] Total Bilirubin 0.3 MG/DL (0.1-1.2 MG/DL) 0.1 - 1.2 MG/DL [facility] Calcium [Mass/Vol] Calcium 9.9 MG/DL (8.5-10.4 MG/DL) [...] MG/DL) High 65 - 99 MG/DL S Potassium [Moles/Vol] Potassium R 3.9 MMOL/L (3.4-5.1 MMOL/L) 3.4 - 5.1 MMOL/L S Protein [Mass/Vol] Total Protein 7.3 G/DL (5.9-7.9 G/DL) 5.9 - 7.9 G/DL S Sodium [Moles/Vol] Sodium 136 MMOL/L (133-145 MMOL/L) 133 - 145 MMOL/L S Urea nitrogen [Mass/Vol] BUN 20 MG/DL (8-25 MG/DL) 8 - 25 MG/DL [facility] Urea nitrogen/Creatinine [Mass ratio] BUN Creatinine Ratio 18.2 RATIO (8-21 RATIO) 8 - 21 RATIO [facility] Otheron 09-23-2020 FLUAV RNA JERRELL+probe Ql (Nph) FLU A by PCR NEGATIVE (Reference Range: not available) [facility] FLUBV RNA JERRELL+probe Ql (Nph) FLU B by PCR NEGATIVE (Reference Range: not available) [facility] SARS-CoV-2 by PCR NEGATIVE (NEG ) [facility] Albumin/Globulin [Mass ratio] Albumin Globulin Ratio 1.7 RATIO (1.5-3.0 RATIO) 1.5 - 3.0 RATIO [facility] ALP (Bld) [Catalytic activity/Vol] Alk Phosphatase 137 U/L H (35-125 U/L) High 35 - 125 U/L [facility] Amphetamines Screen method >1000 ng/mL Ql (U) Urine Amphetamine NEGATIVE (Reference Range: not available) [facility] Bacteria Auto Ql (U) Bacteria NEGATIVE (Reference Range: not available) [facility] Barbiturates Screen method >300 ng/mL Ql (U) Urine Barbiturate NEGATIVE (Reference Range: not available) [facility] Benzodiazepines Screen method >300 ng/mL Ql (U) Urine Benzodiazepine NEGATIVE (Reference Range: not available) [facility] Benzoylecgonine Screen method >300 ng/mL Ql (U) Urine Cocaine Metabolites NEGATIVE (Reference Range: not available) [facility] Bilirubin Ql (U) Bili NEGATIVE (NEG ) [facility] Cannabinoids Screen method >50 ng/mL Ql (U) THC/Cannabinoids NEGATIVE (Reference Range: not available) [facility] Differential cell count method Nom (Bld) Diff Type AUTO DIFF (Reference Range: not available) [facility] Drug screen comment (U) [Interp] Urine Drug [...] 200 ng/ml OXYCODONE 100 ng/ml Performed at [facility] [address] [place] [id number] (Reference Range: not available) [facility] Epithelial cells.squamous Auto Ql (U) Urine squamous epi NONE SEEN /HPF (Reference Range: not available) [facility] Erythrocyte distribution width (RBC) [Entitic vol] RDW SD 43.1 FL (37.0-54.0 FL) 37.0 - 54.0 FL [facility] Erythrocyte distribution width (RBC) [Ratio] RDW CV 13.1 % (11.7-15.0 %) 11.7 - 15.0 % [facility] Globulin (S) [Mass/Vol] Globulin 2.7 G/D L (1.9-3.7 G/DL) 1.9 - 3.7 G/DL [facility] Glucose Auto test strip (U) [Mass/Vol] Gluc NEGATIVE mg/dL (NEG mg/dL) [facility] Hemoglobin Auto test strip Ql (U) RBC 1 /HPF (0-3 /HPF) 0 - 3 /HPF [facility] Hemoglobin Ql (U) Blood NEGATIVE (NEG ) [facility] Hyaline casts Auto Ql (U) Urine hyaline cast NONE SEEN /LPF (Reference Range: not available) [facility] Immature granulocytes (Bld) [#/Vol] Abs Imm Neut 0.03 K/UL (0.0-0.1 K/UL) 0.0 - 0.1 K/UL [facility] Ketones Auto test strip Ql (U) Urine Ketone SMALL A (NEG ) Abnormal [facility] Leukocyte esterase Auto test strip Ql (U) Leuk NEGATIVE (NEG ) [facility] MCHC (RBC) [Mass/Vol] MCHC 31.9 % (31-37 %) 31 - 37 % [facility] Neutrophils.immature/10 0 WBC (Bld) Immature Neut % 0.20 % (0.0-1.0 %) 0.0 - 1.0 % [facility] Nitrite Auto test strip Ql (U) Nit NEGATIVE (NEG ) [facility] Nucleated RBC/100 WBC (Bld) [Ratio] NRBCs 0 /100 WBC (0 /100 WBC) [facility] Opiates Screen method >300 ng/mL Ql (U) Urine Opiate NEGATIVE (Reference Range: not available) [facility] Oxycodone Ql (U) Urine Oxycodone NEGATIVE (Reference Range: not available) [facility] pH (U) Urine pH 6.0 (4.6-8.0 ) 4.6 - 8.0 [facility] Phencyclidine Screen method >25 ng/mL Ql (U) Urine PCP NEGATIVE (Reference Range: not available) [facility] Platelet mean volume (Bld) [Entitic vol] MPV 11.0 CU (7.0-12.6 CU) 7.0 - 12.6 CU [facility] Segmented neutrophils/100 WBC (Bld) Granulocyte 73.60 % (34-82 %) 34 - 82 % [facility] Urobilinogen Auto test strip Ql (U) Uro NORMAL MG/DL (0-1.0 MG/DL) 0 - 1.0 MG/DL [facility] WBC Auto (Urine sed) [#/Area] WBC NONE SEEN /HPF (0-3 /HPF) 0 - 3 /HPF [facility] Reflex to Urine Culture CULTURE NOT INDICATED Performed at [facility] [address] [place] [address] (Reference Range: not available) [facility] Microscopic AUTOMATIC MICROSCOPIC URINES (Reference Range: not available) [facility] Urinalysison 09-23-2020 Clarity (U) Urine Clarity CLEAR (Reference Range: not available) [facility] Color (U) Urin color YELLOW (Reference Range: not available) [facility] Methadone Ql (U) Urine Methadone NEGATIVE (Reference Range: not available) [facility] Protein (U) [Mass/Vol] Prot TRACE mg/dL A (NEG mg/dL) Abnormal [facility] Specific gravity (U) [Rel density] Urine Sp [place] 1.026 (1.005-1.030 ) 1.005 - 1.030 [facility] NR MRI CERVICAL WOon 021 NR MRI CERVICAL WO Patient Name: CAMERON TERESA STUDY: MRI of the cervical spine without contrast. INDICATION: syncope, age-indeterminate irregularity involving the anterior/superior aspect of the C5 vertebral body. COMPARISON: CT cervical spine 08/31/2020 ACCESSION NUMBER(S): [id number] ORDERING CLINICIAN: FAHEEM LINDSAY TECHNIQUE: Multiplanar, multisequence [...] Electronically signed by: CHAIM DOSS MD Normal [facility] Provider Note - ED Care Fletcher sitionon [...] Updated: 01-Sep-2020 02:17 by Millicent Ross) Normal [facility] CBC AND DIFFERENTIALon 08-31 % AUTOMATED IMMATURE GRAN 0.2 % Normal 0.0 - 1.0 [facility] Comment on above: Result Comment: Jessica ture Granulocyte Count (IG) includes promyelocytes, myelocytes and metamyelocytes but does not include bands. Percent differential counts (%) should be interpreted in the context of the absolute cell counts (cells/L). Performed By: #### C BCDF #### [facility] [address] [place] [address] Basophils (Bld) [#/Vol] 0.02 10*3/uL Normal 0.00 - 0.1 0 [facility] Comment on above: Performed By: #### C BCDF #### [facility] [address] [place] [address] Basophils/100 WBC (Bld) 0.2 % Normal 0.0 - 1.0 U [facility] Comment on above: Performed By: #### C BCDF #### [facility] [address] [place] [address] Eosinophils (Bld) [#/Vol] 0.04 10*3/uL Normal 0.00 - 0.70 [facility] Comment on above: Performed By: #### C BCDF #### [facility] [address] [place] [address] Eosinophils/100 WBC (Bld) 0.5 % Normal 0.0 - 5.0 [facility] Comment on above: Performed By: #### C BCDF #### [facility] [address] [place] [address] Erythrocyte distribution width (RBC) [Ratio] 12.9 % Normal 11.5 - 14.5 [facility] Comment on above: Performed By: #### C BCDF #### [facility] [address] [id number] Hematocrit (Bld) [Volume fraction] 47.3 % Normal 37.0 - 49.0 [facility] Comment on above: Performed By: #### C BCDF #### [facility] [address] [place] [address] Hemoglobin (Bld) [Mass/Vol] 15.8 g/dL Normal 13.0 - 16.0 [facility] Comment on above: Performed By: #### C BCDF #### [facility] [address] [id number] Lymphocytes (Bld) [#/Vol] 1.53 10*3/uL Low 1.80 - 4.80 [facility] Comment on above: Performed By: #### C BCDF #### [facility] [address] [place] [address] Lymphocytes/100 WBC (Bld) 18.1 % Normal 28.0 - 48.0 [facility] Comment on above: Performed By: #### C BCDF #### [facility] [address] [place] [address] MCHC (RBC) [Mass/Vol] 33.4 g/dL Normal 31.0 - 37.0 [facility] Comment on above: Performed By: #### C BCDF #### [facility] [address] [place] [address] MCV (RBC) [Entitic vol] 87 fL Normal 78 - 102 U [facility] Comment on above: Performed By: #### C BCDF #### [facility] [address] [place] [address] Monocytes (Bld) [#/Vol] 0.58 10*3/uL Normal 0.10 - 1.0 0 [facility] Comment on above: Performed By: #### C BCDF #### [facility] [address] [place] [address] Monocytes/100 WBC (Bld) 6.8 % Normal 3.0 - 9.0 U [facility] Comment on above: Performed By: #### C BCDF #### [facility] [address] [place] [address] Neutrophils (Bld) [#/Vol] 6.28 10*3/uL Normal 1.20 - 7.70 [facility] Comment on above: Performed By: #### C BCDF #### [facility] [address] [place] [address] Neutrophils/100 WBC (Bld) 74.2 % Normal 33.0 - 69.0 [facility] Comment on above: Performed By: #### C BCDF #### [facility] [address] [place] [address] Platelets (Bld) [#/Vol] 213 10*3/uL Normal 150 - 400 [facility] Comment on above: Performed By: #### C BCDF #### [facility] [address] [place] [address] RBC 5.46 x10E12/L High 4.50 - 5.30 [facility] Comment on above: Performed By: #### C BCDF #### [facility] [address] [place] [address] WBC (Bld) [#/Vol] 8.5 10*3/uL Normal 4.5 - 13.5 [facility] Comment on above: Performed By: #### C BCDF #### [facility] [address] [place] [address] COMPREHENSIVE PANELon 2020 Albumin [Mass/Vol] 4.7 g/dL Normal 3.4 - 5.0 [facility] Comment on above: Performed By: #### C MP #### [facility] [address] [place] [address] ALP [Catalytic activity/Vol] 123 U/L Normal 33 - 139 [facility] Comment on above: Performed By: #### C MP #### [facility] [address] [place] [address] ALT [Catalytic activity/Vol] 20 U/L Normal 3 - 28 [facility] Comment on above: Result Comment: Moisés ents treated with Sulfasalazine may generate falsely decreased results for ALT. Performed By: #### C MP #### [facility] [address] [place] [address] Anion gap [Moles/Vol] 15 mmol/L Normal 10 - 30 [facility] Comment on above: Performed By: #### C MP #### [facility] [address] [place] [address] AST [Catalytic activity/Vol] 24 U/L Normal 9 - 32 [facility] Comment on above: Performed By: #### C MP #### [facility] [address] [place] [address] Bilirubin [Mass/Vol] 0.3 mg/dL Normal 0.0 - 0.9 [facility] Comment on above: Performed By: #### C MP #### [facility] [address] [place] [address] Calcium [Mass/Vol] 9.6 mg/dL Normal 8.5 - 10.7 [facility] Comment on above: Performed By: #### C MP #### [facility] [address] [place] [address] Chloride [Moles/Vol] 103 mmol/L Normal 98 - 107 [facility] Comment on above: Performed By: #### C MP #### [facility] [address] [place] [address] Creatinine [Mass/Vol] 1.01 mg/dL Normal 0.60 - 1.10 [facility] Comment on above: Performed By: #### C MP #### [facility] [address] [place] [address] Glucose [Mass/Vol] 123 mg/dL High 74 - 99 [facility] Comment on above: Performed By: #### C MP #### [facility] [address] [place] [address] HCO3 (Bld) [Moles/Vol] 26 mmol/L Normal 18 - 27 [facility] Comment on above: Performed By: #### C MP #### [facility] [address] [place] [address] Potassium [Moles/Vol] 4.1 mmol/L Normal 3.5 - 5.3 [facility] Comment on above: Performed By: #### C MP #### [facility] [address] [place] [address] Protein [Mass/Vol] 7.0 g/dL Normal 6.2 - 7.7 [facility] Comment on above: Performed By: #### C MP #### [facility] [address] [place] [address] Sodium [Moles/Vol] 140 mmol/L Normal 136 - 145 [facility] Comment on above: Performed By: #### C MP #### [facility] [address] [place] [address] Urea nitrogen [Mass/Vol] 16 mg/dL Normal 6 - 23 [facility] Comment on above: Performed By: #### C MP #### [facility] [address] [place] [address] CT C-SPINE WO CONTRASTon CT C-SPINE WO CONTRAST Patient Name: CAMERON TERESA STUDY: CT HEAD WO CONTRAST; CT FACIAL BONES; CT C-SPINE WO CONTRAST; 08/31/2020 9:55 pm INDICATION: syncope, hit right side of face and head. COMPARISON: None. ACCESSION NUMBER(S): [id number]; [id number]; [id number] ORDERING CLINICIAN: FAHEEM LINDSAY TECHNIQUE: Axial noncontrast [...] malalignment. Electronically signed by: GORGE BRAXTON MD [facility] CT FACIAL BONESon 08-31-2020 CT FACIAL BONES Patient Name: CAMERON TERESA STUDY: CT HEAD WO CONTRAST; CT FACIAL BONES; CT C-SPINE WO CONTRAST; 08/31/2020 9:55 pm INDICATION: syncope, hit right side of face and head. COMPARISON: None. ACCESSION NUMBER(S): [id number]; [id number]; [id number] ORDERING CLINICIAN: FAHEEM LINDSAY TECHNIQUE: Axial noncontrast [...] malalignment. Electronically signed by: GORGE BRAXTON MD [facility] CT HEAD WO CONTRASTon 2020 CT HEAD WO CONTRAST Patient Name: CAMERON TERESA STUDY: CT HEAD WO CONTRAST; CT FACIAL BONES; CT C-SPINE WO CONTRAST; 08/31/2020 9:55 pm INDICATION: syncope, hit right side of face and head. COMPARISON: None. ACCESSION NUMBER(S): [id number]; [id number]; [id number] ORDERING CLINICIAN: FAHEEM LINDSAY TECHNIQUE: Axial noncontrast [...] malalignment. Electronically signed by: GORGE BRAXTON MD [facility] Provider Note - ED v2on 03-0 Provider [...] with sinus arrhythmia, ventricular rate 72 bpm, TN interval 146, QRS duration 86, QTc 387, [...] I did discuss with trauma surgery at [facility], Dr. Hopkins, who recommended MRI of the [...] to follow-up (more content not included)... Normal [facility] TROPONIN Ion 08-31-2020 Troponin I.cardiac [Mass/Vol] ng/mL Normal 0.00 - 0.03 [facility] Comment on above: Result Comment: LESS THAN [...] is performed using different testing methodology at [facility] than at other [facility]. Direct result comparisons should only be made within the same method. Performed By: #### T TYLOR2 #### [facility] [address] [place] [address] Triage - ED Pedson Triage - ED [...] normal position, moves easily FLACC Score: 0 Lorenza Coma Scale Peds (2yrs to Adult): Best Eye Response: (E4) spontaneous Best Verbal Response: (V5) oriented Best Motor Response: (M6) obeys commands Lorenza Coma Scale Score: 15 Cough Lasting Greater than 2 Weeks: no Allergies: no Mask Applied: yes Patient has Homicidal Thoughts: no Acuity Level: 2 Peds Complaint Code ([facility] ONLY): N/A [facility] ABCD PRIMARY ASSESSMENT CAMERON TERESA's primary assessment is Within Defined Limits. The airway is open and patent. Breathing spontaneous and unlabored with clear breath sounds bilaterally. Circulation is normal with good peripheral pulses. Skin is warm and dry and color is normal for race. Alert and appropriate for age. RISK SCREEN [place] Suicide Risk Screen Risk Screen Not Applicable/Able [...] 31-Aug-2020 20:03 by Magui Lam (AGUILA) Normal [facility] COMPLETE BLOOD COUNTon 08-19 Erythrocyte distribution width (RBC) [Ratio] 13.6 % Normal 11.5-14.5 [facility] [employer] [facility] Comment on above: Performed By: #### C BC #### [facility] [address] [place] [address], Hematocrit (Bld) [Volume fraction] 47.5 % Normal 37.0-49.0 [facility] [employer] [facility] Comment on above: Performed By: #### C BC #### [facility] [address] [place] [address], Hemoglobin (Bld) [Mass/Vol] 15.5 g/dL Normal 13.2-15.6 [facility] Comment on above: Performed By: #### C BC #### [facility] [address] [place] [address], MCH (RBC) [Entitic mass] 28.2 pg Normal 25.0-35.0 [facility] Comment on above: Performed By: #### C BC #### [facility] [address] [place] [address], MCHC (RBC) [Mass/Vol] 32.6 g/dL Normal 32.0-35.9 [facility] Comment on above: Performed By: #### C BC #### [facility] [address] [place] [address], MCV (RBC) [Entitic vol] 86 fL Normal 78-100 T [facility] Comment on above: Performed By: #### C BC #### S [facility] [address] [place] [address], Platelet mean volume (Bld) [Entitic vol] 9.6 fL Normal 7.5-11.2 [facility] Comment on above: Performed By: #### C BC #### [facility] [address] [place], [place], Platelets (Bld) [#/Vol] 155 10*3/uL Normal 150-400 [facility] Comment on above: Performed By: #### C BC #### S [facility] [address] [place], [place], RBC (Bld) [#/Vol] 5.49 10*6/uL High 4.50-5.30 [facility] Comment on above: Performed By: #### C BC #### [facility] [address] [place], [place], WBC (Bld) [#/Vol] 4.6 10*3/uL Normal 4.5-13.0 [facility] Comment on above: Performed By: #### C BC #### [facility] [address] [place] [address], TSHon 08-19-2020 TSH Qn 2.625 uIU/mL Normal 0.700-6.000 [facility] Comment on above: Performed By: #### T SH HS #### [facility] [address] [place] [address], VITAMIN D, 25-HYDROXYon 07-29 VITD25 29.7 ng/mL Low 30.0-100.0 [facility] Comment on above: Performed By: #### V ITD25 #### [facility] [address] [place] [address], NURSING PROGon 06-10-2020 NURSING PROG HNO ID: [id number] Author: Mingo (Rn) AGUILA Neil Service: Nursing Author Type: Registered Nurse Type: Nursing Progress Note Filed: 06/10/2020 11:32 AM Note Text: Nursing Progress Note Patient Name: Cameron Teresa Patient Location: [id number]/[facility]-00 Daily Note: Pt awake at 0800, standing [...] and used that info to put mom oil and gas exploration technician list and limit it to 1 call per day and no visits at this time. Pt mumbled that's bull shit after LIP left room. 1100- Pt is calm at this time and is in school. This note was completed by: Mingo Neil RN [facility] NURSING PROG HNO ID: [id number] Author: Sylwia (Rn) AGUILA Jarvis Service: Nursing Author Type: Registered Nurse Type: Nursing Progress Note Filed: 06/10/2020 2:02 AM Note Text: Nursing Progress Note Patient Name: Cameron Teresa Patient Location: [id number]/[facility] -4505-00 Daily Note: Patient awake in room [...] note was completed by: Sylwia Jarvis RN [facility] PLAN OF CAREon 06-10-2020 PLAN OF CARE HNO ID: [id number] Author: Corrine Munoz Service: Psychiatry Author Type: [...] 06/09/20 Progress Towards Short Term Goals: Progressing Prison Goals: Identify positive alternatives to self-injurious behavior Target Date [place] Shampoo Assistant Goals: 06/11/20 Progress Towards [place] Shampoo Assistant Goals: Progressing Interventions - Nursing: Initiate safety [...] 06/09/20 Progress Towards Short Term Goals: Progressing [place] Shampoo Assistant Goals: Identify positive alternatives to aggession Target Date [place] Shampoo Assistant Goals: 06/11/20 Progress Towards Prison Goals: Progressing Interventions - Nursing: Remain calm and firmly set limits for the patient's behaviors;Administer medications as indicated and monitor patient for effect;Provide education to the patient and/or family about the disease process and management as appropriate Interventions - Social Work: Coordination with family;Coordination with outpatient providers Staff in attendance and in agreement with this plan: Attending: Dr. Munoz Resident: Dr Perez Physician [employer] Developer: Matthew Ellison Nurse: KEN Madsen, RN Information Technology Officer: Linnea Hester Pharmacy: [facility] Recreational Therapy: Loly Chand This plan was reviewed with patient/family. Attending Psychiatrist: Dr. Munoz DOCUMENTED BY: Mingo Neil, RN PATIENT NAME: Cameron Teresa DATE: June 10, 2020 TIME: 11:17 AM PAGER/CONTACT #: [facility] SOCIAL WORKon 06-10-2020 SOCIAL WORK HNO ID: [id number] Author: Alvaro Mims (Sw) Service: Social Work Author Type: Information Technology Officer Type: Social Work Filed: 06/10/2020 9:04 AM Note Text: CHILD AND ADOLESCENT PSYCHIATRY SOCIAL WORK ONGOING ASSESSMENT PATIENT NAME: Cameron Teresa ADDRESS: [address] [place], [place] [id number] COUNTY: [place] ADMIT DATE: 06/06/2020 DATE of SERVICE: 06/10/2020 Cameron was discussed in treatment team. Cameron is ready for discharge at the time of this note. Collateral information collected: Plan is for patient to be transported via ambulance today to [facility] at 12:30pm grape picker time. Spoke with step mother, Noa, to confirm discharge for today back to [facility] via ambulance, step mother confirmed this is the plan and did not have any other questions at this time. Follow-up: ? Inpatient Substance Abuse treatment/Psychiatry and therapy services Name:?Regina, therapist - Viki, explosive operator supervisor? ext [phone] Agency: [facility] Location:?[address] [facility], [place] [address] Phone:? Appointment: June 10, 2020 at 1:30pm ? Current psychiatrist Name:?Dr. Benjamin Agency:?[facility] Location:?[facility] Phone:?[phone] Next appointment: to be made after [facility] placement? ? Current therapist?(has not seen for several months due to [facility]HBT AND [facility]) Name:?Millicent Sahni Agency:?[facility] Location:?[facility] Phone:?[phone] Next appointment confirmed???No - to be considered once treatment at [facility] is completed. ? IHBT from November to April Name:?[place] Agency:?[facility] Location:?[facility] Phone:?[phone] Next appointment: to made after [facility] placement ? [facility] Children and [facility] [place] Name: Marielos Durbin Agency: [facility] Board ? ? ? Other residentials to consider after [facility] 1. Denny LANEB located at?[address] [facility] [place] [address], phone:?[phone], ?[email or web address] 4. Irving montez, location: [place] Phone:?[phone] - parent must call to follow up 5. Claire located at?[address] [place] [address], phone: [phone], fax: [phone] 6. Briseyda located at?[address] [address], phone:? SIGNATURE: Alvaro Mims ORESTES DATE of SERVICE: 06/10/2020 TIME of SERVICE: 8:18 AM [facility] 06-09-2020 ALLIED HEALTH HNO ID: [id number] Author: Linnea (Therapist) Mendy Service: Music Therapy [...] as schedule allows, ITP reviewed Therapist: Linnea Brooke, [facility] HNO ID: [id number] Author: Pearl BarkersShanique Chand Service: Recreational Therapy Author Type: Therapist Type: Allied Health Filed: 06/09/2020 4:41 PM Note Text: RECREATIONAL THERAPY NOTE CHILD AND ADOLESCENT PSYCHIATRY Name: Cameron Brii Topic of Note: Progress Note DATE: 06/09/2020 [...] affect was flat. ? Signature: Pearl Chand, DISPLAY SPECIALIST Date: June 09, 2020 Time: 4:39 PM [facility] NURSING PROGon 06-09-2020 NURSING PROG HNO ID: [id number] Author: Mingo BeckhamRn) AGUILA Neil Service: Nursing Author Type: Registered Nurse Type: Nursing Progress Note Filed: 06/09/2020 6:13 PM Note Text: Nursing Progress Note Patient Name: Cameron Teresa Patient Location: [id number]/[facility] Daily Note: Pt awake at 0830- ate [...] note was completed by: Mingo Neil RN [facility] NURSING PROG HNO ID: [id number] Author: Lauren Núñez RN Service: Nursing Author Type: Registered Nurse Type: Nursing Progress Note Filed: 06/09/2020 2:53 AM Note Text: Nursing Progress Note Patient Name: Cameron Teresa Patient Location: [id number]/[facility] Daily Note: pt did not attend the movie [employer] and was just hanging out in his [...] note was completed by: Lauren Núñez RN [facility] PLAN OF CAREon 06-09-2020 PLAN OF CARE O ID: [id number] Author: Corrine Munoz Service: Psychiatry Author Type: [...] 06/09/20 Progress Towards Short Term Goals: Progressing Prison Goals: Identify positive alternatives to self-injurious behavior Target Date Salon Shampoo Assistant Goals: 06/11/20 Progress Towards [place] Shampoo Assistant Goals: Progressing Interventions - Nursing: Initiate safety [...] towards others Target Date Short Term Goals: 12/14/20 Progress Towards Short Term Goals: Progressing [place] Shampoo Assistant Goals: Identify positive alternatives to aggession Target Date [place] Shampoo Assistant Goals: 06/11/20 Progress Towards [place] Shampoo Assistant Goals: Progressing Interventions - Nursing: Initiate safety [...] Attending: Dr. Munoz Resident: Dr. Perez Physician Ui Ux Developer: Matthew Ellison Nurse: KEN Madsen, RN Information Technology Officer: Alvaro Power Pharmacy: [facility] Recreational Therapy: Loly Chand This plan was reviewed with patient/family. Attending Psychiatrist: Dr. Munoz DOCUMENTED BY: Mingo Neil RN PATIENT NAME: Camerno Teresa DATE: June 09, 2020 TIME: 10:02 AM PAGER/CONTACT #: [facility] [place] 06-09-2020 PROGRESS HNO ID: [id number] Author: Corrine Munoz Service: Pediatric Psychiatry Author [...] likely anticipate discharge on 06/10 back to [facility]. Active Hospital Problems Diagnosis Date Noted - [...] Overview Note: Currently in residential treatment at [facility]. Main drug of abuse currently = meth Last use 5-6 weeks ago PLAN: - determine appropriate outpatient planning (CD vs mood vs dual diagnosis) - consider use of medication to assist with persistent meth cravings - family currently reluctant -Accepted to [facility], likely anticipate discharge on 06/10 SUBJECTIVE [...] WITH BREAKFAST ALLERGIES No Known Allergies OBJECTIVE 06/06/206 06/07/20 0920 06/08/20 0918 06/09/20 0846 BP: 136/78 134/65 108/63 142/71 Pulse: 60 61 61 67 Resp: 18 20 Temp: 36.6 ?C (97.9 ?F) 36.4 ?C [...] 09, 2020 TIME of SERVICE: 9:29 AM [facility] STAFF: TEACHING PHYSICIAN NOTE OF PERSONAL INVOLVEMENT [...] We discussed plan to discharge back to [facility] and patient was eager for this plan. [...] PM Authenticated by responsible provider. __ Normal [facility] SOCIAL WORKon 06-09-2020 SOCIAL WORK HNO ID: [id number] Author: Alvaro Mims (Sw) Service: Social Work Author Type: Information Technology Officer Type: Social Work Filed: 06/09/2020 2:57 PM Note Text: CHILD AND ADOLESCENT PSYCHIATRY SOCIAL WORK ONGOING ASSESSMENT PATIENT NAME: Cameron Teresa ADDRESS: [address] [place] [address] COUNTY: [place] ADMIT DATE: 06/06/2020 DATE of SERVICE: 06/09/2020 Cameron was discussed in treatment team. Cameron is not ready for discharge at the time of this note. Collateral information collected: Spoke with Viki Cobb at [facility] who reports the patient has been at their agency 3x, they were talking with the patient on Tuesday about his desire to step down to the recovery housing and this led to the disagreement as staff at [facility] do not feel he is ready to step down yet. When ready to step down, patient would have more privileges, less staff monitoring in order to allow the patient to transition home eventually. [facility] staff do not think any residential placement afterwards would be of much use as the patients primary need is substance use and sobriety and could then see an out patient provider for mental health services. [facility] is willing to take the patient back into their program when he is ready for discharge from the hospital. Phone call to step mother/father who reports she would like patient to return to [facility] with the plan for referrals for mental health residential placements once he is completed with [facility]. Step mother would like referrals to be sent out to [facility], [facility], Claire and [facility]. Discussed the financial commitment that the family would be required to assist with,step mother reports [facility] is helping to fund [facility] in addition to the insurance coverage. [facility] is not accepting any new referrals for admissions at this time. [facility] is not accepting patients over the age of 12 at this time. Faxed to [facility] [place], [place] and called Raheel Fu Phone call to [facility], message left for Viki to update her about discharge for Tuesday and to coordinate return to placement of patient. Phone call to Marielos Durbin at [facility], message left requesting a return call. Spoke with [facility] who is in agreement with patient returning on Tuesday, will contact family to discuss discharge and transport plan. Spoke with shazia mother who reports the plan is for patient to return to [facility], via ambulance is the preferred method by the family. Also updated the referrals sent for residential placement. Mother requested the doctor call her for an update today, message shared with Dr Booker. Ambulance set for 12:30pm grape picker on Tuesday to transport patient to [facility], family and [place] are aware. Follow-up: ? Inpatient Substance Abuse treatment Name: Regina, therapist - Viki, explosive operator supervisor ext [phone] Agency: [facility] Location: [address] [place] [address] Appointment: returning back. ? Current psychiatrist Name:?Dr. Benjamin Agency:?[facility] Location:?[facility] Phone:?[phone] Next appointment: to be made after [facility] placement ? Current therapist (has not seen for several months due to IHBT AND [facility]) Name:?Millicent Sahni Agency:?[facility] Location:?[facility] Phone:?[phone] Next appointment confirmed???No ? IHBT from November to April Name:?[facility] Agency:?[facility] Location:?[facility] Phone:?[phone] Next appointment: to made after [facility] placement [facility] Children and [facility] Name: Marielos Durbin Agency: [facility] Health Board ? Other residentials to consider after [facility] 1. [facility] [place] [address] [place] [address], phone: [phone], [email or web address] 2. Ayad Daniels located at [address] [place] [address], 3. Raheel Fu [place] at [address] [place] [address], 4. [facility], location: [place] 5. [facility] located at [address] [place] [address], phone: [phone], fax: [phone] 6. [place] located at [address] [place] [address], phone: SIGNATURE: ORESTES Ornelas DATE of SERVICE: 06/09/2020 TIME of SERVICE: 8:23 AM [facility] ALLIED HEALTHon 06-08-2020 ALLIED HEALTH HNO ID: [id number] Author: Fatuma Madden (Ctrs) Service: Recreational Therapy [...] Date: June 08, 2020 Time: 12:35 PM [facility] NURSING PROGon 06-08-2020 NURSING PROG HNO ID: [id number] Author: Mingo BeckhamRn) AGUILA Neil Service: Nursing Author Type: Registered Nurse Type: Nursing Progress Note Filed: 06/08/2020 6:02 PM Note Text: Nursing Progress Note Patient Name: Cameron Teresa [id number] Daily Note: Pt awake at 0800, [...] note was completed by: Mingo Neil RN [facility] NURSING PROG HNO ID: [id number] Author: Zaria Salcedo (Rn) AGUILA Nieto Service: [...] monitor q15min and review his [place] plan. [facility] PLAN OF CAREon 06-08-2020 PLAN OF CARE HNO ID: [id number] Author: Caroline Durand Service: Psychiatry Author Type: [...] Attending: Dr Durand Nurse: KEN Madsen, RN Information Technology Officer: ORESTES Power This plan was reviewed with patient/family. Attending Psychiatrist: Dr. Durand DOCUMENTED BY: Mingo Neil RN PATIENT NAME: Cameron Teresa DATE: June 08, 2020 TIME: 5:58 PM PAGER/CONTACT #: [facility] PROGRESSon 06-08-2020 PROGRESS HNO ID: [id number] Author: Caroline Durand Service: Psychiatry Author Type: Physician Type: Progress Notes Filed: 06/08/2020 6:18 PM Note Text: CHILD AND ADOLESCENT PSYCHIATRY PROGRESS NOTE PATIENT NAME: Cameron Teresa DATE of SERVICE: 06/08/2020 TIME of SERVICE: 6:13 PM ASSESSMENT AND PLAN Cameron is 14 year old admitted on 06/06/2020 to Inpatient Psychiatry. Please see formulation from [facility]P with updates as below: Active Hospital Problems [...] Overview Note: Currently in residential treatment at [facility]. Main drug of abuse currently = [...] a overwhelmed parent case with [facility]. Offered [employer] but she stated that they could not [...] ALLERGIES No Known Allergies OBJECTIVE 06/06/20 2326 06/07/2020 06/08/20 0918 BP: 136/78 134/65 108/63 Pulse: [...] 08, 2020 TIME of SERVICE: 6:13 PM [facility] SOCIAL WORKon 06-08-2020 SOCIAL WORK HNO ID: [id number] Author: Linnea BeckhamSwShanique Todd Service: Social Work Author Type: Information Technology Officer Type: Social Work Filed: 06/08/2020 3:10 PM Note Text: CHILD AND ADOLESCENT PSYCHIATRY SOCIAL WORK ONGOING ASSESSMENT PATIENT NAME: Cameron Teresa ADDRESS: [address] [facility] [address] [place]: [place] ADMIT DATE: 06/06/2020 DATE of SERVICE: 06/08/2020 [...] like him to go back to [facility] and for this worker to refer him [...] Also discussed a overwhelmed parent case with [facility] [employer]. Offered [employer] but she stated that they could not afford this option. kiln worker to follow up with [facility] regarding any referrals to residential treatment centers. kiln worker emailed Mary with [facility] asking if they would accept the patient back into their program at d/c. Follow up: Inpatient Substance Abuse treatment Name: nisha Tapia, explosive operator supervisor Agency: [facility] Location: [address] [place] [address] Appointment: returning back. Current psychiatrist Name: Dr. Benjamin Agency: [facility] Location: [place] Next appointment: to be made after [facility] placement ? Current therapist (has not seen for several months due to IHBT AND [facility]) Name: Millicent Sahni Agency: [facility] Location: [place] Next appointment confirmed? No ? IHBT from November to April Name: [place] Agency: [place] Location: [place] Next appointment: to made after [facility] placement ? Other residentials to consider after [facility] 1. Denny [place] [address] [place] [address], phone: [phone], [email or web address] 2. Ayad Daniels located at [address] [place] [address], 3. Raheel Fu [place] [address] [place] [address], 4. [facility], location: [place] 5. [facility] located at [address] [place] [address], phone: [phone], fax: [phone] 6. [place] located at [address] [address], phone: SIGNATURE: SUSAN Foley DATE of SERVICE: 06/08/2020 TIME of SERVICE: 12:07 PM [facility] 06-07-2020 ALLIED HEALTH HNO ID: [id number] Author: Fatuma Madden (Ctrs) Service: Recreational Therapy [...] Date: June 07, 2020 Time: 1:51 PM [facility] ALLIED HEALTH HNO ID: [id number] Author: Fatuma Madden (Ctrs) Service: Recreational Therapy [...] up and work on completion throughout admission. [facility] ALLIED HEALTH O ID: [id number] Author: Fatuma Madden (Ctrs) Service: Recreational Therapy [...] music, spending time with family, working at [employer] PATIENT'S GOALS FOR RECREATIONAL THERAPY PROGRAM: being stable on my new meds Recreational Therapy Recommendations: Pt will practice utilizing effective coping skills through engaging in therapeutic activity. Pt will practice expressing thoughts/feelings/em otions appropriately through engaging in therapeutic activity. GENERAL OBSERVATIONS: Clean and groomed Communicates easily Cooperative Good attitude Oriented Pleasant Signature: CECY VeraS Date: June 07, 2020 Time: 12:25 PM Normal [facility] CBC and Differentialon 06-07 Abs Baso <0.03 Normal <0.11 [facility] Comment on above: Performed By: #### C MP, CBCDIF, TSH, LIPB ####[place] [address]#### HBA1C ####[place] [address] [place] [phone] Abs [place] 0.38 k/uL Normal <0.87 [facility] Comment on above: Performed By: #### C MP, CBCDIF, TSH, LIPB ####[place] [address]#### HBA1C ####[place] [address] [place] [phone] Abs Neut 2.70 k/uL Normal 1.45-7.50 [facility] Comment on above: Performed By: #### C MP, CBCDIF, TSH, LIPB ####[place] [address]#### HBA1C ####[place] [address] [place] [phone] Absolute nRBC <0.01 Normal <0.01 [facility] Comment on above: Performed By: #### C MP, CBCDIF, TSH, LIPB ####[place] [address]#### HBA1C ####[place] [address] [place] [phone] Basophils/100 WBC (Bld) 0.2 % Normal [facility] Comment on above: Performed By: #### C MP, CBCDIF, TSH, LIPB ####[place] [address]#### HBA1C ####[place] [address] [place] [phone] DTYPE Auto Diff Normal [facility] Comment on above: Performed By: #### C MP, CBCDIF, TSH, LIPB ####[place] [address]#### HBA1C ####[place] [address] [address] [place] [phone] Eosinophils (Bld) [#/Vol] 0.05 10*3/uL Normal <0.46 [facility] Comment on above: Performed By: #### C MP, CBCDIF, TSH, LIPB ####[place] [address]#### HBA1C ####[place] [address] [address] [place] [phone] Eosinophils/100 WBC (Bld) 1.1 % Normal [facility] Comment on above: Performed By: #### C MP, CBCDIF, TSH, LIPB ####[place] [address]#### HBA1C ####[place] [address] [address] [place] [phone] Erythrocyte distribution width (RBC) [Ratio] 12.6 % Normal 11.5-15.0 [facility] Comment on above: Performed By: #### C MP, CBCDIF, TSH, LIPB ####[place] [address]#### HBA1C ####[place] [address] [place] [phone] Hematocrit (Bld) [Volume fraction] 47.4 % Normal 39.0-51.0 [facility] Comment on above: Performed By: #### C MP, CBCDIF, TSH, LIPB ####[address]#### HBA1C ####[place] [address] [address] [place] [phone] Hemoglobin (Bld) [Mass/Vol] 15.9 g/dL Normal 13.0-17.0 [facility] Comment on above: Performed By: #### C MP, CBCDIF, TSH, LIPB ####[place] [id number]#### HBA1C ####[phone] Lymphocytes (Bld) [#/Vol] 1.35 10*3/uL Normal 1.00-4.00 [facility] Comment on above: Performed By: #### C MP, CBCDIF, TSH, LIPB ####[place] [id number]#### HBA1C ####[phone] Lymphocytes/100 WBC (Bld) 30.0 % Normal [facility] Comment on above: Performed By: #### C MP, CBCDIF, TSH, LIPB ####[place] [phone]#### HBA1C ####[phone] MCH (RBC) [Entitic mass] 29.0 pG Normal 26.0-34.0 [facility] Comment on above: Performed By: #### C MP, CBCDIF, TSH, LIPB ####[place] [id number]#### HBA1C ####[place] [phone] MCHC (RBC) [Mass/Vol] 33.5 g/dL Normal 30.5-36.0 [facility] Comment on above: Performed By: #### C MP, CBCDIF, TSH, LIPB ####[phone]#### HBA1C ####[place] [address] [address] [place] [phone] MCV (RBC) [Entitic vol] 86.3 fL Normal 80.0-100.0 [facility] Comment on above: Performed By: #### C MP, CBCDIF, TSH, LIPB ####[place] [address]#### HBA1C ####[place] [address] [place] [phone] Monocytes/100 WBC (Bld) 8.4 % Normal [facility] Comment on above: Performed By: #### C MP, CBCDIF, TSH, LIPB ####[place] [id number]#### HBA1C ####[place] [address] [phone] Neutrophils/100 WBC (Bld) 60.3 % Normal [facility] Comment on above: Performed By: #### C MP, CBCDIF, TSH, LIPB ####[address]#### HBA1C ####[place] [address] [address] [place] [phone] NRBCs 0.0 /100 WBC Normal 0 [facility] Comment on above: Performed By: #### C MP, CBCDIF, TSH, LIPB ####[place] [address]#### HBA1C ####[place] [address] [place] [phone] Platelet mean volume (Bld) [Entitic vol] 11.2 fL Normal 9.0-12.7 [facility] Comment on above: Performed By: #### C MP, CBCDIF, TSH, LIPB ####[place] [address]#### HBA1C ####[place] [address], [place] [phone] Platelets (Bld) [#/Vol] 165 10*3/uL Normal 150-400 [facility] Comment on above: Performed By: #### C MP, CBCDIF, TSH, LIPB ####[place] [address]#### HBA1C ####[place] [address] [address], [place] [phone] RBC (Bld) [#/Vol] 5.49 10*6/uL Normal 4.20-6.00 [facility] Comment on above: Performed By: #### C MP, CBCDIF, TSH, LIPB ####[place] [id number]#### HBA1C ####[place] [address] [place] [phone] WBC (Bld) [#/Vol] 4.50 10*3/uL Normal 3.70-11.00 [facility] Comment on above: Performed By: #### C MP, CBCDIF, TSH, LIPB ####[place] [phone]#### HBA1C ####[place] [address] [address], [place] [phone] Comp Metabolic Panelon 06-07 Albumin [Mass/Vol] 4.3 g/dL Normal 3.5-5.0 [facility] Comment on above: Performed By: #### C MP, CBCDIF, TSH, LIPB ####[place] [id number]#### HBA1C ####[place] [address] [address], [place] [phone] ALP [Catalytic activity/Vol] 146 U/L Normal 82-331 [facility] Comment on above: Result Comment: Refe rence ranges were not locally established for this patient's age group. The normal values are based on the following source: Loida DODSON, Yusuf MORALES, et al. CLSI based transference of the CALIPER database of pediatric reference intervals from Gomez to Pema, Ortho, Jeison, and Siemens Clinical Chemistry Assays: Direct validation using reference samples from the CALIPER cohort. Clin Biochem. Performed By: #### C MP, CBCDIF, TSH, LIPB ####[place] [address]#### HBA1C ####[facility] [place] [phone] ALT [Catalytic activity/Vol] 12 U/L Normal 5-50 [facility] Comment on above: Performed By: #### C MP, CBCDIF, TSH, LIPB ####[address]#### HBA1C ####[facility] [place] [phone] Anion gap [Moles/Vol] 9 mmol/L Normal 9-18 [facility] Comment on above: Performed By: #### C MP, CBCDIF, TSH, LIPB ####[place] [address]#### HBA1C ####[facility] [place] [phone] AST [Catalytic activity/Vol] 15 U/L Normal 7-40 [facility] Comment on above: Performed By: #### C MP, CBCDIF, TSH, LIPB ####[place] [address]#### HBA1C ####[facility] [place] [phone] Bilirubin [Mass/Vol] 0.4 mg/dL Normal 0.2-1.3 [facility] Comment on above: Result Comment: (NOT E) Reference ranges for this patient's age group have not been established. These reference ranges reflect verified or established ranges for the adult population. Interpret these ranges with caution using the clinical context and additional reference resources. Performed By: #### C MP, CBCDIF, TSH, LIPB ####[place] [address]#### HBA1C ####[place] [address] [address] [place] [phone] Calcium [Mass/Vol] 9.8 mg/dL Normal 8.5-10.5 [facility] Comment on above: Performed By: #### C MP, CBCDIF, TSH, LIPB ####[place] [address]#### HBA1C ####[place] [phone] Chloride [Moles/Vol] 106 mmol/L Normal 98-110 [facility] Comment on above: Performed By: #### C MP, CBCDIF, TSH, LIPB ####[place] [address]#### HBA1C ####[place] [phone] CO2 [Moles/Vol] 25 mmol/L Normal 23-32 [facility] Comment on above: Performed By: #### C MP, CBCDIF, TSH, LIPB ####[place] [address]#### HBA1C ####[place] [address] [place] [phone] Creatinine [Mass/Vol] 1.03 mg/dL Normal 0.40-1.30 [facility] Comment on above: Performed By: #### C MP, CBCDIF, TSH, LIPB ####[place] [address]#### HBA1C ####[place] [address] [address] [place] [phone] Glucose [Mass/Vol] 102 mg/dL High 65-100 [facility] Comment on above: Performed By: #### C MP, CBCDIF, TSH, LIPB ####[place] [id number]#### HBA1C ####[place] [address] [place] [phone] Potassium [Moles/Vol] 4.1 mmol/L Normal 3.5-5.0 [facility] Comment on above: Performed By: #### C MP, CBCDIF, TSH, LIPB ####[place] [id number]#### HBA1C ####[place] [phone] Protein [Mass/Vol] 7.0 g/dL Normal 6.0-8.4 [facility] Comment on above: Performed By: #### C MP, CBCDIF, TSH, LIPB ####[place] [address]#### HBA1C ####[place] [phone] Sodium [Moles/Vol] 140 mmol/L Normal 135-146 [facility] Comment on above: Performed By: #### C MP, CBCDIF, TSH, LIPB ####[place] [id number]#### HBA1C ####[place] [phone] Urea nitrogen [Mass/Vol] 15 mg/dL Normal 5-20 [facility] Comment on above: Performed By: #### C MP, CBCDIF, TSH, LIPB ####[place] [phone]#### HBA1C ####[facility] [address], [place] [phone] ED NOTEon 06-07-2020 ED NOTE HNO ID: [id number] Author: Zara (Rn) AGUILA Enciso Service: ? Author Type: Registered Nurse Type: ED Notes Filed: 06/06/2020 10:21 PM Note Text: Report given to transport team [facility] HISTORY PHYSICALon 0 HISTORY PHYSICAL HNO ID: [id number] Author: Caroline Durand Service: Psychiatry Author Type: [...] currently in residential substance use treatment at [facility] with several previous psychiatric admissions ([facility] 2020 [facility], and [facility]) admitted to Inpatient Psychiatry for SI with multiple plans (running into traffic, ODing on OTC medications, or jumping off ledge at [facility]). Family history is significant for mother with ROSITA (currently sober), anxiety, depression, borderline personality disorder. The developmental history is significant for stressors during and meeting all milestones. Previous medications trials were limited to: Zoloft, Prozac, Lexapro, Wellbutrin, Abilify, Vistaril Cameron lives with bio dad, step-mom, and paternal younger half-siblings in [place], [place]. In terms of stressors, patient's family [...] family. When not in residential treatment at [facility], he lives with bio dad, stepmother [...] Overview Note: Currently in residential treatment at [facility]. Main drug of abuse currently = meth Last use 5-6 weeks ago PLAN: - determine appropriate outpatient planning (CD vs mood vs dual diagnosis) - consider use of medication to assist with persistent meth cravings - family currently reluctant HISTORY OF PRESENT ILLNESS CHIEF COMPLAINT(S) Suicidal ideation Per patient report: Cameron reports that he was having a normal day at [facility] yesterday. He states that he was [...] Per caregiver, Héctor and step mom Noa ([phone]): The situation leading up to admission began when Cameron had requested that [facility] allow him to go to recovery housing, a lower level of care, in spite of his not going to therapy or school during the duration of his time at [facility]. Caregivers refused the change in level [...] had denied anxiety, depression, and SI to [facility]. There have been reports that there have been increased behavioral problems at [facility], however - and family attributes this to Cameron's determining that he can get his way if he threatens people. Family is acutely aware of manipulative behaviors and comments - they have completed intense parenting classes and completed [facility] program (November to April 2020). He has only spoken to his family once in the past month at [facility], and, at that time, he gave [...] Patient is currently in residential treatment at [facility] ? - Current psychiatrist? Yes Name: Dr. Benjamin Agency: [facility] Location: [place] Next appointment confirmed? No ? - Current therapist? Yes, has not seen for several months due to IHBT AND [facility] Name: Millicent Sahni Agency: [facility] Location: [facility] Next appointment confirmed? No ? - Other community support providers? Yes, IHBT from November to April Name: Germain Agency: [place] Location: [facility] Next appointment confirmed? No ? - School [...] personality disorder Medical CURRENT PCP: Jaxson Starks, ACTIVE PROBLEM LIST Mdd (Major Depressive Disorder) [...] Social Work Assessment completed by Vanessa Purvis LOCAL DELIVERY DRIVER [id number] reviewed as needed with patient and family. He lives with bio father, step mother (Noa), 4yo paternal half brother, and 8yo paternal half sister in [place], [place]. - Other pertinent family members? Yes: bio mother AND maternal grandmother - Are there pertinent family stressors? No - Relevant caregiver issues (expectations of hospital stay, reason for admission, involvement in assessment)? No - Currently in the 11th grade at [employer]. Cameron is in regular age appropriate classes [...] and alcohol use. We will consult medical data entry clerk to manage any physical complaints or [...] for Implementation of NPSG 15A by Joint [facility] Resources SIGNATURE: Astrid Villatoro MD DATE of SERVICE: 06/07/2020 TIME of SERVICE: 11:22 AM [facility] STAFF PHYSICIAN NOTE OF PERSONAL INVOLVEMENT IN [...] 14 year old male who presents from [facility] after 5 weeks of treatment for Meth [...] his parents in the 4 weeks at [facility] we had a very bad relationship, they [...] counseling and/or coordinating care for the patient. [id number] time was 60 minutes SIGNATURE: Caroline Durand MD PAGER: [phone] DATE of SERVICE: June 07, 2020 TIME of SERVICE: 6:21 PM Normal [facility] Hemoglobin A1con 06-07-2020 HbA1c (Bld) [Mass fraction] 5.5 % Normal 4.3-5.6 [facility] Comment on above: Result Comment: Amer ican Diabetes Association guidelines indicate that patients with HgbA1c in the range 5.7-6.4% are at increased risk for development of diabetes, and intervention by lifestyle modification may be beneficial. HgbA1c greater or equal to 6.5% is considered diagnostic of diabetes. Performed By: #### C MP, CBCDIF, TSH, LIPB ####[address]#### HBA1C ####[place] [address] [address] [place] [phone] HbA1c (Bld) [Mass fraction] 111 mg/dL Normal [facility] Comment on above: Result Comment: eAG: (Estimated average glucose) is a calculated value from HgbA1c and is sales representative sales manager of the average blood glucose level in the last 2-3 month period. Performed By: #### C MP, CBCDIF, TSH, LIPB ####[place] [address]#### HBA1C ####[place] [phone] Lipid Panel, [facility] 020 Cholesterol [Mass/Vol] 119 mg/dL Normal <170 [facility] Comment on above: Performed By: #### C MP, CBCDIF, TSH, LIPB ####[address]71[address]#### HBA1C ####[place] [phone] Cholesterol in HDL [Mass/Vol] 43 mg/dL Low >45 [facility] Comment on above: Performed By: #### C MP, CBCDIF, TSH, LIPB ####[address]7110#### HBA1C ####[place] [phone] Cholesterol in LDL [Mass/Vol] 61 mg/dL Normal <110 [facility] Comment on above: Performed By: #### C MP, CBCDIF, TSH, LIPB ####[address]10#### HBA1C ####[place] [address] [address] [place] [phone] LDL:HDL Ratio 1.42 Normal <2.42 [facility] Comment on above: Performed By: #### C MP, CBCDIF, TSH, LIPB ####[place] [address]#### HBA1C ####[place] [address] [address] [place] [address] Non HDL Cholesterol 76 mg/dL Normal <120 [facility] Comment on above: Performed By: #### C MP, CBCDIF, TSH, LIPB ####[place] [address]#### HBA1C ####[address] [place] [address] TC:HDL Ratio 2.77 Normal <3.76 [facility] Comment on above: Performed By: #### C MP, CBCDIF, TSH, LIPB ####[place] [address]#### HBA1C ####[place] [address] Triglyceride [Mass/Vol] 76 mg/dL Normal <90 [facility] Comment on above: Performed By: #### C MP, CBCDIF, TSH, LIPB ####[place] [address]#### HBA1C ####[place] [address] [address] [place] [address] VLDL Cholesterol 15 mg/dL Normal <18 [facility] Comment on above: Performed By: #### C MP, CBCDIF, TSH, LIPB ####[place] [address]#### HBA1C ####[place] [address] [place], [place] [phone] NURSING PROGon 06-07-2020 NURSING PROG HNO ID: [id number] Author: Mingo (Rn) AGUILA Neil Service: Nursing Author Type: Registered Nurse Type: Nursing Progress Note Filed: 06/07/2020 5:43 PM Note Text: Nursing Progress Note Patient Name: Cameron Teresa Patient Location: [place] [address] [address] Daily Note: Pt awake at 0800, polite and cooperative with staff. Pt assessed with C-SSRS, scoring low risk for suicide- therefore standard precautions maintained. Pt inquired about getting a big book from to read here- staff inquiring. Pt interested in attending groups, and expecting parent to visit today. Pt wanting to have bio mom oil and gas exploration technician and/or visiting list- will review with team. 0930- Pt given big book and 06/07 book to read. 1100- Pt sleeping at this time. 1400- Pt informed that bio Mom on list for him to call her. 1600- Pt attended nursing group. Minimal participation noted. This note was completed by: Mingo Neil RN [facility] NURSING PROG HNO ID: [id number] Author: Zaria BeckhamRn) AGUILA Nieto Service: Nursing Author Type: Registered Nurse Type: Nursing Progress Note Filed: 06/07/2020 3:22 AM Note Text: IP NURSING BEHAVIORAL HEALTH PEDIATRIC ADMISSION NOTE Cameron Teresa [id number] Cameron Teresa is a 14 year old, male Admitted to Room [address] [facility] General Admission Time of [...] Obvious Sexual Activity (Have you ever had-?): [place] Substance use (Have you ever tried-?): Tobacco, Alcohol, Street drugs, Inhalants(Been a month d/t in [place]) Patient Response to Hospitalization: Other: See Comment( Numb ) Privacy Questions Sexual Activity (Have you ever had-?): [place] Substance use (Have you ever tried-?): Tobacco, Alcohol, Street drugs, Inhalants(Been a month d/t in [place]) Behavioral Assessment Behavioral Summary~ Pt admitted 04/06/2020 at 2310 with MDD and SI. He has been residing at [facility] for the past month after running away from home when they found out he stole money from his siblings to buy drugs. 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 He has been implying to his therapist that he will kill himself if he cant stay sober. He has multiple plans including running into traffic, OD'ing on OTC meds or jumping off a ledge at [facility]. He has had stays at [facility] and . Currently not on medication. Suicide/Homicide Assessment Zaria Edwards RN [facility] PLAN OF CAREon 06-07-2020 PLAN OF CARE HNO ID: [id number] Author: Caroline Durand Service: Psychiatry Author Type: [...] Resident: Dr. Villatoro Nurse: Margarita Falcon RN Information Technology Officer: ORESTES Ngo This plan was reviewed with patient/family. Attending Psychiatrist: DOCUMENTED BY: Mingo Neil RN PATIENT NAME: Cameron Teresa DATE: June 07, 2020 TIME: 11:01 AM PAGER/CONTACT #: [facility] SOCIAL WORKon 06-07-2020 SOCIAL WORK HNO ID: [id number] Author: Vanessa Purvis (Sw) Service: Social Work Author Type: Information Technology Officer Type: Social Work Filed: 06/07/2020 2:24 PM Note Text: CHILD AND ADOLESCENT PSYCHIATRY SOCIAL WORK INITIAL ASSESSMENT PATIENT NAME: Cameron Teresa ADDRESS: [address] [place] [address] COUNTY: [place] ADMIT DATE: 06/06/2020 DATE of SERVICE: 06/07/2020 DEMOGRAPHIC ADMISSION DATA Accompanied by no one Custody: biologic father (patient has some contact with bio mother) Family Contact Information: - biologic father's cell number: Héctor [phone] *step mom (Noa) is very involved and [...] Psychiatry for SI. Patient has been at [facility] for the past month (this is his 3rd time). SUBSTANCE ABUSE HISTORY Guardian reports significant concerns about current substance use. 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 Urine drug screen was negative HISTORY Developmental //Post Hx: was unremarkable There were stresses during , mom has anxiety and depression. Born at Term normal vaginal delivery course was unremarkable Developmental History: Milestones were met on time and within normal expectations. Parents broke up when pt was 1yo. Dad was still seeing pt regularly. Dad obtained full custody 5 years ago. Psychiatric - Patient is currently in residential treatment at [facility] - Current psychiatrist? Yes Name: Dr. Benjamin Agency: [facility] Location: [facility] Next appointment confirmed? No - Current therapist? Yes, has not seen for several months due to IHBT AND [facility] Name: Millicent Sahni Agency: [facility] Location: [facility] Next appointment confirmed? No - Other community support providers? Yes, IHBT from November to April Name: Germain Agency: [place] Location: [facility] Next appointment confirmed? No - School contact? No - Psychiatric hospitalizations? Yes, [facility] in January 2020 and in twice in 2018, and [facility] in June 2019 - Safety concerns? Per [...] brother, and 8yo paternal half sister in [place], [place]. - Other pertinent family members? Yes: bio mother AND maternal grandmother - Are there pertinent family stressors? No - Relevant caregiver issues (expectations of hospital stay, reason for admission, involvement in assessment)? No - Spiritual, cultural, or health barriers to recovery and treatment motivation are not present. Educational History - Currently in the 11th grade at [employer]. Cameron is in regular age appropriate classes [...] health focused residential instead of returning to [place]. They have spoken to the insurance and Denny and Ayad Daniels are in network. Parents would like team's input as to whether pt should return to [place] or go to other residential. PLAN: - kiln worker spoke with the patient's caregiver and reviewed the safety factors that may be present in the home, consisting of any guns, knives or sharps that are potentially dangerous and medication safety and security. The family voiced their understanding and need for increased supervision of potentially harmful items in the home. - Will continue to follow for support and discharge planning. SIGNATURE: DILAN Ngo DATE of SERVICE: 06/07/2020 TIME of SERVICE: 11:30 AM Normal [facility] TSHon 06-07-2020 TSH Qn 1.700 uU/mL Normal 0.510-4.300 [facility] Comment on above: Result Comment: Refe rence ranges were not locally established for this patient's age group. The normal values are based on the following source: Farrah Miles, Phil Vicente. Reference Ranges for Adults and Children: Pre-analytical Considerations. [facility] Performed By: #### C MP, CBCDIF, TSH, LIPB ####[place] [id number]#### HBA1C ####[facility] [place], [place] [phone] Urinalysison 06-07-2020 Bilirubin, Urine Negative Normal Negative [facility] Comment on above: Performed By: #### U A ####[place] [phone] Clarity (U) Clear Normal Clear [facility] Comment on above: Performed By: #### U A ####[place] [id number] Color (U) Colorless Critically abnormal Yellow [facility] Comment on above: Performed By: #### U A ####[place] [id number] Comments SEE COMMENT Normal [facility] Comment on above: Result Comment: Micr oscopic not warranted Performed By: #### U A ####[place] [phone] Glucose Ql (U) Negative Normal Negative [facility] Comment on above: Performed By: #### U A ####[place] [phone] Hemoglobin/Blood,Ur Negative Normal Negative [facility] Comment on above: Performed By: #### U A ####[place] [phone] Ketones Ql (U) Negative Normal Negative [facility] Comment on above: Performed By: #### U A ####[place] [phone] Leukest Negative Normal Negative [facility] Comment on above: Performed By: #### U A ####[place] [phone] Nitrite Ql (U) Negative Normal Negative [facility] Comment on above: Performed By: #### U A ####[place] [phone] pH (Bld) 6.0 Normal 5.0-8.0 [facility] Comment on above: Performed By: #### U A ####[place] [phone] Protein (U) [Mass/Vol] Negative Normal Negative [facility] Comment on above: Performed By: #### U A ####[phone] Specific [place], Ur 1.014 Normal 1.005-1.030 [facility] Comment on above: Performed By: #### U A ####[place] [phone] Urobilinogen Qn (U) Negative Normal Negative [facility] Comment on above: Performed By: #### U A ####[phone] ALLIED HEALTHon 06-06-2020 ALLIED HEALTH HNO ID: [id number] Author: America Bravo (Lsw) Service: ? Author Type: Counselor Type: Allied Health Filed: 06/06/2020 8:26 PM Note Text: Step 5: Documentation Risk Level : Suicide Risk ( Initial Screening):: High Risk Actual risk determined to be : High Clinical Observation: Depression, Anxiety and SI with a multiple plans Relevant Mental Status Evaluation: SI with multiple plans Methods of Suicide Risk Evaluation: [place] AND Safe-T Brief Evaluation Summary: Warning Signs: [...] Medical Providers: Ricki Vazquez Date 06/06/2020 Psychiatrist oil and gas exploration technician: Name: Dr. Durand Date: 06/06/2020 Time: 6:58pm Other Contact and Role: N/A [facility] ED NOTEon 06-06-2020 ED NOTE HNO ID: [id number] Author: TAN Cardona (Pcna) Service: ? Author Type: Patient Care Captain Airline Pilot Type: ED Notes Filed: 06/06/2020 8:30 PM Note Text: Pt used bathroom. [facility] ED NOTE HNO ID: [id number] Author: TAN Cardona (Pcna) Service: ? Author Type: Patient Care Captain Airline Pilot Type: ED Notes Filed: 06/06/2020 7:48 PM Note Text: Pt ate all of food. [facility] ED NOTE HNO ID: [id number] Author: TAN Cardona (Pcna) Service: ? Author Type: Patient Care Captain Airline Pilot Type: ED Notes Filed: 06/06/2020 7:42 PM Note Text: Pt given meal tray, pizza, fries, apple juice cup and Gatorade. [facility] ED NOTE HNO ID: [id number] Author: TAN Cardona (Pcna) Service: ? Author Type: Patient Care Captain Airline Pilot Type: ED Notes Filed: 06/06/2020 7:16 PM Note Text: Urine sent to lab. [facility] ED NOTE HNO ID: [id number] Author: TAN Cardona (Pcna) Service: ? Author Type: Patient Care Captain Airline Pilot Type: ED Notes Filed: 06/06/2020 7:15 PM Note Text: Urine obtained. [facility] ED NOTE HNO ID: [id number] Author: Zara BeckhamRnShanique Enciso RN Service: ? Author Type: Registered Nurse Type: ED Notes Filed: 06/06/2020 6:57 PM Note Text: covid swab obtained and walked to lab [facility] ED NOTE HNO ID: [id number] Author: Zara BeckhamRn) AGUILA Enciso Service: ? Author Type: Registered Nurse Type: ED Notes Filed: 06/06/2020 6:27 PM Note Text: [facility] ED NOTE HNO ID: [id number] Author: TAN Cardona (Pcna) Service: ? Author Type: Patient Care Captain Airline Pilot Type: ED Notes Filed: 06/06/2020 6:17 PM Note Text: Pt on phone with America from intake. [facility] ED NOTE HNO ID: [id number] Author: Crista BeckhamRn) AGUILA Bradshaw Service: ? Author Type: Registered Nurse Type: ED Notes Filed: 06/06/2020 6:02 PM Note Text: Sitter at bedside [facility] ED NOTE HNO ID: [id number] Author: Zara Enciso RN Service: ? Author Type: Registered Nurse Type: ED Notes Filed: 06/06/2020 5:48 PM Note Text: MD @ bedside. [facility] ED NOTE HNO ID: [id number] Author: Crista Cardenas) AGUILA Bradshaw Service: ? Author Type: Registered Nurse Type: ED Notes Filed: 06/06/2020 5:48 PM Note Text: Verbal consent obtained by registration from step mother Noa Teresa via phone pt lives with her and pts biological father. Pts biological mother Dimple nava [facility] ED NOTE HNO ID: [id number] Author: Zara Cardenas) AGUILA Enciso Service: ? Author Type: Registered Nurse Type: ED Notes Filed: 06/06/2020 10:21 PM Note Text: Pt changed into gown. Clothing and shoes placed in bag and labeled. Placed at nurses' station. Camera on and back door locked. [facility] ED NOTE HNO ID: [id number] Author: Benedict Cardenas) AGUILA Freeman Service: ? Author Type: Registered Nurse Type: ED Notes Filed: 06/06/2020 5:35 PM Note Text: Back room door locked. [facility] ED NOTE HNO ID: [id number] Author: Benedict Freeman RN Service: ? Author Type: Registered Nurse Type: ED Notes Filed: 06/06/2020 5:34 PM Note Text: Security at bedside to wand pt. [facility] ED NOTE HNO ID: [id number] Author: Crista BeckhamRn) AGUILA Bradshaw Service: ? Author Type: Registered Nurse Type: ED Notes Filed: 06/06/2020 5:29 PM Note Text: Bed: [facility]-12 Expected date: 06/06/20 Expected time: 5:12 PM Means of arrival: Latesha Urbina FD Comments: 14 y/o SI - New Directions [facility] ED NOTE HNO ID: [id number] Author: Benedict (Rn) AGUILA Freeman Service: ? Author Type: Registered Nurse Type: ED Notes Filed: 06/06/2020 5:32 PM Note Text: Pt came by EMS for SI. Pt states he had 3 plans. 1- pt states wanted to leave rehab and jump in front of car. 2- leave rehab and go to [facility] and steal medications such as Acetaminophen and overdose. 3- leave rehab and go to [facility] facility and jump off of ledge. Pt states that he has had this plan for awhile but pain becoming too much (emotional), states family problems, urges and trauma. [facility] ED PROV NOTEon 06-06-2020 ED PROV NOTE HNO ID: [id number] Author: Ricki Vazquez MD Service: Emergency Medicine Author Type: Physician Type: ED Provider Notes Filed: 06/06/2020 9:55 PM Note Text: ED Provider Note Patient Name: Cameron Teresa SERVICE DATE: 06/06/20 History Patient presents with: Suicidal Ideation HPI 14-year-old male with anxiety and depression here with suicidal ideation. Patient reports that he has been at [facility], drug rehab program. He has not felt like it is helping him. He reports that his depression has been worsening. He has had thoughts of wanting to kill himself. He has 3 different plans (overdosing, jumping from bridge, getting hit in traffic) and reports that it would be easy to follow through with any of these as he is not supervised at [facility]. 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 Negative for COVID19 (SARS CoV2) by PCR. Procedures ED Course / Clinical Impression Clinical Impressions as of Jun 06 2155 Depression, unspecified depression type COVID-19 ruled out by laboratory testing Anxiety COVID-19 test performed per [facility] policy for suspected COVID community exposure. MDM / Disposition / Plan MDM 14-year-old male with anxiety, depression, substance abuse, currently in residential rehab program presenting with suicidal ideation. Patient has no medical complaints and denies any recent drug use. Vitals are age-appropriate and he is tolerating p.o. Rapid Covid and a urine drug (more content not included)... Normal [facility] Expedited [id number] 06-06-20 SARS-CoV-2 (COVID-19) RNA JERRELL+probe Ql (Unsp spec) UPPER RESPIRATORY TRACT SWAB Normal [facility] SARS-CoV-2 (COVID-19) RNA JERRELL+probe Ql (Unsp spec) Negative Normal Negative for COVID19 (SARS CoV2) by PCR. [facility] Comment on above: Result Comment: This test has been authorized by FDA under an Emergency Use Authorization (EUA). Toxicology Screen,Uron 06-06 Amphetamines, Urine Negative Normal Negative [facility] Comment on above: Result Comment: Cuto ff threshold at 1000 ng/mL. Barbiturates, Urine Negative Normal Negative [facility] Comment on above: Result Comment: Cuto ff threshold at 200 ng/mL. Benzodiazepines, Ur Negative Normal Negative [facility] Comment on above: Result Comment: Cuto ff threshold at 200 ng/mL. Cannabinoids, Urine Negative Normal Negative [facility] Comment on above: Result Comment: Cuto ff threshold at 50 ng/mL. Cocaine, Urine Negative Normal Negative [facility] Comment on above: Result Comment: Cuto ff threshold at 300 ng/mL. Ethanol, Urine <11 Normal <11 [facility] Opiates, Urine Negative Normal Negative [facility] Comment on above: Result Comment: Cuto ff threshold at 300 ng/mL. Oxycodone, Urine Negative Normal Negative [facility] Comment on above: Result Comment: Cuto [...] on the same specimen through Client Services ([phone]) if contacted within 48 hours of initial testing. [1]Substance Abuse and Mental Health Services Administration (2012). Clinical Drug Testing in Primary Care Technical Assistance Publication Series 32. Department of Health and Human Services, [place], p.10. Phencyclidine, Urine Negative Normal Negative [facility] Comment on above: Result Comment: Cuto ff threshold at 25 ng/mL. Vital Signs Date Time Vital Sign Value Performing Clinician Facility 11-14-2023 03:30-0400 Diastolic blood pressure 72 mm[Hg] COMPOSITION TILE L[facility]ER [facility] 11-14-2023 03:30-0400 Heart rate 104 /min COMPOSITION TILE LAYERMary Jo [facility] Work Phone: [facility] 11-14-2023 03:30-0400 Respiratory rate 18 /min COMPOSITION TILE LAYER [facility] Work Phone: [facility] 11-14-2023 03:30-0400 SaO2% (BldA) [Mass fraction] 98 % COMPOSITION TILE LAYER Nayla Dorsey Work Phone: [facility] 11-14-2023 03:30-0400 Systolic blood pressure 124 mm[Hg] COMPOSITION TILE LAYERMary Jo Kimerangel Work Phone: [facility] 11-14-2023 02:12-0400 Body height 198.12 cm COMPOSITION TILE LAYER Nayla Dorsey Work Phone: [facility] 11-14-2023 02:12-0400 Body temperature 98.6 [degF] COMPOSITION TILE LAYERMary Jo Dorsey Work Phone: [facility] 11-14-2023 02:12-0400 Body weight 91.9 kg COMPOSITION TILE LAYERMary Jo Dorsey Work Phone: [facility] 03-07-2023 16:51-0400 Blood Pressure Location Kenroy Jackson [facility] 03-07-2023 16:51-0400 Body temperature 98.6 [degF] Kenroy Jackson [facility] 03-07-2023 16:51-0400 bodymassindex -0.18 Kenroy Jackson [facility] Comment on above: Result Comment: ^~:!ZScore [facility] 03-07-2023 16:51-0400 Diastolic blood pressure 80 mm[Hg] Kenroy Abrahampsey [facility] 03-07-2023 16:51-0400 Heart rate 91 /min Kenroy Jackson [facility] 03-07-2023 16:51-0400 Height/Length Percentile 99.87 Kenroy Jackson [facility] Comment on above: Result Comment: ^~:!Percentile Source -[facility] [place] 03-07-2023 16:51-0400 Height/Length Z-Score 3.01 Kenroy Jackson [facility] Comment on above: Result Comment: ^~:!ZScore [facility] 03-07-2023 16:51-0400 SaO2% (BldA) [Mass fraction] 99 % Kenroy Jackson [facility] 03-07-2023 16:51-0400 Systolic blood pressure 120 mm[Hg] Kenroy Jackson [facility] 03-07-2023 16:51-0400 Weight Percentile 89.21 % Kenroy Jackson [facility] Comment on above: Result Comment: ^~:!Percentile Source -[facility] [place] 03-07-2023 16:51-0400 Weight Z-Score 1.24 Kenroy Jackson [facility] Comment on above: Result Comment: ^~:!ZScore [facility] 02-27-2023 11:04-0400 Body height 198.12 cm PHYSICIAN NO [facility] 02-27-2023 11:04-0400 Body temperature 97.6 [degF] PHYSICIAN NO [facility] 02-27-2023 11:04-0400 Body weight 85 kg PHYSICIAN [facility] 02-27-2023 11:04-0400 Diastolic blood pressure 71 mm[Hg] PHYSICIAN NO [facility] 02-27-2023 11:04-0400 Heart rate 100 /min PHYSICIAN NO [facility] 02-27-2023 11:04-0400 Respiratory rate 18 /min PHYSICIAN NO [facility] 02-27-2023 11:04-0400 SaO2% (BldA) [Mass fraction] 97 % PHYSICIAN NO [facility] 02-27-2023 11:04-0400 Systolic blood pressure 134 mm[Hg] PHYSICIAN NO [facility] 02-13-2023 10:50-0400 Body temperature 98.4 [degF] Nazario Fine Other [employer] Other 02-13-2023 10:50-0400 Body weight 86.18 kg Nazario Fine Other [employer] Other 02-13-2023 10:50-0400 Diastolic blood pressure 78 mm[Hg] Nazario Fine Other [employer] Other 02-13-2023 10:50-0400 Respiratory rate 18 /min Nazario Fine Other [employer] Other 02-13-2023 10:50-0400 SaO2% (BldA) [Mass fraction] 98 % Nazario Fine Other [employer] Other 02-13-2023 10:50-0400 Systolic blood pressure 134 mm[Hg] Nazario Fine Other [employer] Other 02-06-2023 10:30-0400 Body height 198.12 cm Ana Laura Abhijit Other [employer] Other 02-06-2023 10:30-0400 Body mass index (BMI) [Ratio] 21.95 kg/m2 Ana Laura Lacey Other [employer] Other 02-06-2023 10:30-0400 Body temperature 98.3 [degF] Ana Laura Lacey Other [employer] Other 02-06-2023 10:30-0400 Body weight 86.18 kg Ana Laura Lacey Other [employer] Other 02-06-2023 10:30-0400 Diastolic blood pressure 75 mm[Hg] Ana Laura Lacey Other [employer] Other 02-06-2023 10:30-0400 Respiratory rate 18 /min Ana Laura Lacey Other [employer] Other 02-06-2023 10:30-0400 SaO2% (BldA) [Mass fraction] 97 % Ana Laura Lacey Other [employer] Other 02-06-2023 10:30-0400 Systolic blood pressure 138 mm[Hg] Ana Laura Lacey Other [employer] Other 10-23-2022 12:57-0400 Body temperature 98.4 [degF] PHYSICIAN NO [facility] 10-23-2022 12:57-0400 Diastolic blood pressure 62 mm[Hg] PHYSICIAN NO [facility] 10-23-2022 12:57-0400 Heart rate 89 /min PHYSICIAN NO [facility] 10-23-2022 12:57-0400 Respiratory rate 16 /min PHYSICIAN NO [facility] 10-23-2022 12:57-0400 SaO2% (BldA) [Mass fraction] 98 % PHYSICIAN NO [facility] 10-23-2022 12:57-0400 Systolic blood pressure 125 mm[Hg] PHYSICIAN NO [facility] 10-23-2022 06:00-0400 Body weight 79.8 kg PHYSICIAN NO [facility] 10-21-2022 22:30-0400 Body height 198.12 cm PHYSICIAN NO [facility] 10-21-2022 20:26-0400 Diastolic blood pressure 64 mm[Hg] PHYSICIAN NO [facility] 10-21-2022 20:26-0400 Heart rate 82 /min PHYSICIAN NO [facility] 10-21-2022 20:26-0400 Respiratory rate 16 /min PHYSICIAN NO [facility] 10-21-2022 20:26-0400 SaO2% (BldA) [Mass fraction] 100 % PHYSICIAN NO [facility] 10-21-2022 20:26-0400 Systolic blood pressure 141 mm[Hg] PHYSICIAN NO [facility] 10-21-2022 18:12-0400 Body height 198.12 cm PHYSICIAN NO [facility] 10-21-2022 18:12-0400 Body weight 85.27 kg PHYSICIAN NO [facility] 10-21-2022 18:10-0400 Body temperature 97.9 [degF] PHYSICIAN NO [facility] 10-13-2022 15:35-0400 Body height 198.12 cm PHYSICIAN NO [facility] 10-13-2022 15:35-0400 Body temperature 97.9 [degF] PHYSICIAN NO [facility] 10-13-2022 15:35-0400 Body weight 84.35 kg PHYSICIAN NO [facility] 10-13-2022 15:35-0400 Diastolic blood pressure 75 mm[Hg] PHYSICIAN NO [facility] 10-13-2022 15:35-0400 Heart rate 83 /min PHYSICIAN NO [facility] 10-13-2022 15:35-0400 Respiratory rate 14 /min PHYSICIAN NO [facility] 10-13-2022 15:35-0400 SaO2% (BldA) [Mass fraction] 100 % PHYSICIAN NO [facility] 10-13-2022 15:35-0400 Systolic blood pressure 153 mm[Hg] PHYSICIAN NO [facility] 09-27-2022 14:45-0400 Body height 198.12 cm PHYSICIAN NO [facility] 09-27-2022 14:45-0400 Body temperature 98.9 [degF] PHYSICIAN NO [facility] 09-27-2022 14:45-0400 Body weight 82.3 kg PHYSICIAN NO [facility] 09-27-2022 14:45-0400 Diastolic blood pressure 77 mm[Hg] PHYSICIAN NO [facility] 09-27-2022 14:45-0400 Heart rate 94 /min PHYSICIAN NO [facility] 09-27-2022 14:45-0400 Respiratory rate 16 /min PHYSICIAN NO [facility] 09-27-2022 14:45-0400 SaO2% (BldA) [Mass fraction] 98 % PHYSICIAN NO [facility] 09-27-2022 14:45-0400 Systolic blood pressure 170 mm[Hg] PHYSICIAN NO [facility] 08-02-2022 20:13-0500 Body height 187.96 cm MD Clari Owen MD [facility] 08-02-2022 20:13-0500 Body weight 75 kg MD Clari Owen MD [employer] 04-25-2022 16:28-0400 Body height 195.58 cm MD Deo Hamm MD [employer] 04-25-2022 16:28-0400 Body mass index (BMI) [Ratio] 20.9 kg/m2 MD Deo Hamm MD [employer] 04-25-2022 16:28-0400 Body weight 80 kg MD Deo Hamm MD [employer] 11-05-2021 14:21-0400 Body height 198.12 cm Linnea Angulo Iliano Work Phone: [email or web address] Work Phone: 11-05-2021 14:21-0400 Body mass index (BMI) [Ratio] 22.07 kg/m2 Linnea B Iliano Work Phone: [email or web address] Work Phone: 11-05-2021 14:21-0400 Body surface area Derived from formula 2.21 m2 Linnea Adele Iliano Work Phone: [facility] Work Phone: 11-05-2021 14:21-0400 Body weight 86.64 kg Linnea B Iliano Work Phone: [facility] Work Phone: 11-05-2021 14:21-0400 Diastolic blood pressure 62 mm[Hg] Linnea Angulo Iliano Work Phone: [facility] Work Phone: 11-05-2021 14:21-0400 Heart rate 106 /min Linnea Angulo Iliano Work Phone: [facility] Work Phone: 11-05-2021 14:21-0400 SaO2% (BldA) [Mass fraction] 98 % Linnea Angulo Iliano Work Phone: [facility] Work Phone: 11-05-2021 14:21-0400 Systolic blood pressure 102 mm[Hg] Linnea Angulo Iliano Work Phone: [facility] Work Phone: 11-05-2021 14:21-0400 91 1 Linnea Angulo Iliano Work Phone: [facility] Work Phone: Comment on above: -_WPerc 11-05-2021 14:21-0400 99 1 Linnea Angulo Iliano Work Phone: [facility] Work Phone: Comment on above: -_SPerc 11-05-2021 14:21-0400 50 1 Linnea Angulo Iliano Work Phone: [facility] Work Phone: Comment on above: BMIPerc 11-05-2021 14:19-0400 Body height 198.12 cm Linnea Angulo Iliano Work Phone: [facility] Work Phone: 11-05-2021 14:19-0400 99 1 Linnea B Iliano Work Phone: [facility] Work Phone: Comment on above: 2-_SPerc 09-23-2020 02:18-0400 BMI (Body Mass Index) 20.9 kg/m2 Wai Dale [facility] 09-23-2020 02:18-0400 Body weight 80 kg Wai Dale [facility] Encounters Encounter Date Encounter Type Care Provider Facility Start: 05-01-2024 End: 05-01-2024 ambulatory [facility] Work Phone: Start: 05-01-2024 End: 05-01-2024 Patient encounter procedure [facility] Phys[facility] [place] Work Phone: Start: 03-20-2024 End: 03-20-2024 ambulatory [facility] Work Phone: Start: 03-20-2024 End: 03-20-[address] [facility] [place] Work Phone: Start: 01-17-2024 Non-patient / Non-visit [facility] Work Phone: Start: 11-14-2023 End: 11-14-2023 Emergency department patient visit COMPOSITION TILE LAYER Nayla Kimcody Work Phone: [facility] Work Phone: Start: 10-31-2023 End: 10-31-2023 ambulatory [facility] Work Phone: Start: 10-31-2023 End: 10-31-[address] [facility] [place] Work Phone: Start: 10-28-2023 End: 10-28-2023 Emergency department patient visit [facility] Start: 10-06-2023 End: 10-06-2023 ambulatory [facility] Work Phone: Start: 10-06-2023 End: 10-06-[address] [facility] [place] Work Phone: Start: 09-22-2023 End: 09-22-2023 ambulatory [facility] Work Phone: Start: 09-22-2023 End: 09-22-2023 Patient encounter procedure [facility] Work Phone: Start: 05-24-2023 End: 05-24-2023 ambulatory Nayla Easterwood Other [employer] Other Start: 05-24-2023 Telephone encounter Nayla Easterwood [facility] [place] Start: 05-17-2023 End: 05-17-2023 Patient encounter procedure PHYSICIAN NO [facility] [place] Work Phone: Start: 05-17-2023 End: 05-17-2023 ambulatory PHYSICIAN NO [facility] Work Phone: Start: 05-16-2023 End: 05-16-2023 ambulatory Nayla Easterwood Other [employer] Other Start: 05-16-2023 Telephone encounter Nayla Easterwood [facility] [place] Start: 04-21-2023 End: 04-21-2023 ambulatory Nayla Easterwood Other [employer] Other Start: 04-21-2023 Telephone encounter Nayla Easterwood [facility] [place] Start: 04-04-2023 Telephone encounter Nayla Easterwood [facility] [place] Start: 04-04-2023 End: 04-05-2023 ambulatory JOHN GILES [employer] Other Start: 04-01-2023 End: 04-01-2023 ambulatory Nayla Easterwood Other [employer] Other Start: 04-01-2023 Telephone encounter Nayla Easterwood [facility] [place] Start: 03-29-2023 End: 03-29-2023 ambulatory Naylashanna Luzwood Other [employer] Other Start: 03-29-2023 Telephone encounter Nayla Luzwood [facility] Start: 03-22-2023 End: 03-22-2023 ambulatory Naylashanna Luzwood Other [employer] Other Start: 03-22-2023 Telephone encounter Nayla Luzwood [facility] Start: 03-07-2023 End: 03-08-2023 ambulatory Kenroy Jackson Facility:[facility] Start: 03-07-2023 End: 03-07-2023 Patient encounter procedure Kenroy Jackson [facility] Start: 02-27-2023 End: 02-27-2023 Emergency department patient visit PHYSICIAN JAJA [facility] Work Phone: Start: 02-21-2023 End: 02-21-2023 ambulatory Nayla Dorsey Other [employer] Other Start: 02-21-2023 Telephone encounter Nayla Luzwood [facility] Start: 02-13-2023 End: 02-13-2023 ambulatory Nazario Fine Other [employer] Other Start: 02-13-2023 Office outpatient vi sit 15 minutes Nazario Fine [facility] Start: 02-10-2023 End: 02-10-2023 ambulatory Ana Laura Lacey Other [employer] Other Start: 02-10-2023 Telephone encounter Ana Laura Lacey [facility] [address] Start: 02-06-2023 Office outpatient ne w 30 minutes Ana Laura Lacey [facility] [address] Start: 02-06-2023 End: 08-13-2023 ambulatory Ana Laura Lacey Other [facility] [employer] Other Start: 02-06-2023 End: 02-06-2023 Departed Referred COMPOSITION TILE LAYER Ana Laura Lacey Work Phone: [facility] [place] Work Phone: Start: 10-23-2022 ambulatory Ms. Linnea Zapata Facility:[id number] Start: 10-21-2022 End: 10-23-2022 Evaluation and management of inpatient PHYSICIAN NO [facility] [place] [facility] Work Phone: Start: 10-13-2022 End: 10-13-2022 Emergency department patient visit PHYSICIAN NO [facility] Work Phone: Start: 10-13-2022 End: 10-13-2022 Patient encounter procedure PHYSICIAN NO [facility] [place] Work Phone: Start: 09-27-2022 End: 09-27-2022 Emergency department patient visit PHYSICIAN NO [facility] Work Phone: Start: 08-02-2022 End: 08-02-2022 ambulatory OTHER PCP Facility:UNKNOWN Start: 04-25-2022 End: 04-25-2022 ambulatory OTHER PCP Facility:UNKNOWN Start: 11-13-2021 AUDIT Linnea root Work Phone: [facility] Work Phone: Start: 11-05-2021 Current tobacco non-user cad cap copd pv dm Linnea Zapata Work Phone: [facility] Work Phone: Start: 11-05-2021 ambulatory Ms. Linnea Zapata Facility:[id number] Start: 10-29-2020 End: 10-29-2020 ambulatory [facility] Start: 10-29-2020 Encounter for routin e child health examination without abnormal findings [facility] Start: 10-24-2020 End: 10-24-2020 ambulatory EDWARD Murray [facility] Start: 08-19-2020 Patient encounter procedure UNKNOWN PROVIDER Facility:[facility] Patient encounter procedure Linnea Zapata Work Phone: [facility] Work Phone: MD Clari Pacheco [facility] Procedures Date Procedure Procedure Detail Performing Clinician Start: 02-06-2023 End: 02-06-2023 Throat culture PHYSICIAN NO FAMILY Start: 09-27-2022 CT of head without contrast PHYSICIAN NO FAMILY Plan of Treatment Date Care Activity Detail Author Start: 03-20-2024 Patient referral [facility] Work Phone: Start: 11-14-2023 Plain chest X-ray XR chest 1V portab le [facility] Start: 11-14-2023 XR Chest Single view [facility] Start: 09-22-2023 Patient referral [facility] Work Phone: Start: 02-06-2023 Throat culture Throat Culture [facility] Start: 10-23-2022 [facility] Start: 10-23-2022 Referral to industrial training specialist [facility] Start: 10-22-2022 Comprehensive metabo lic 2000 panel - Serum or Plasma [facility] Start: 10-22-2022 End: 10-22-2022 [facility] Start: 10-21-2022 Hospital admission [facility] Start: 10-21-2022 Referral to psychiatrist [facility] Start: 10-21-2022 [facility] Bacteria identified in Throat by Aerobe culture [facility] Patient Education [facility] Work Phone: Patient referral [facility] Work Phone: Immunizations Immunization Date Immunization Notes Care Provider Fa ciliboogie 06-30-2021 Pfizer-BioNTech COVI D-19 Vacc 30 MCG/0.3ML Intramuscular Suspension Linnea Zapata Work Phone: [facility] 06-09-2021 influenza virus vacc ine, unspecified formulation Kenroy Manuel [facility] 06-09-2021 influenza, injectabl e, quadrivalent, preservative free Linnea Zapata Work Phone: [facility] Work Phone: 06-09-2021 [employer] COVI D-19 Vacc 30 MCG/0.3ML Intramuscular Suspension Linnea Zapata Work Phone: [facility] 10-29-2020 meningococcal ACWY vaccine, unspecified formulation Kenroy Manuel [facility] 10-29-2020 meningococcal oligosaccharide (groups A, C, Y and W-135) diphtheria toxoid conjugate vaccine (MCV4O) Linnea Zapata Work Phone: [facility] Work Phone: 08-18-2018 HPV, unspecified formulation Kenroy Abrahampsey [facility] 08-18-2018 Human Papillomavirus 9-valent vaccine Linnea Zapata Work Phone: [facility] Work Phone: 03-07-2018 HPV, unspecified formulation Kenroy Manuel [facility] 03-07-2018 Human Papillomavirus 9-valent vaccine Linnea Zapata Work Phone: [facility] Work Phone: 12-23-2015 Hep A, unspecified formulation Kenroy Manuel [facility] 12-23-2015 meningococcal ACWY vaccine, unspecified formulation Kenroy Manuel [facility] 12-23-2015 meningococcal polysaccharide (groups A, C, Y and W-135) diphtheria toxoid conjugate vaccine (MCV4P); Translations: [Menactra Intramuscular Injectable] Jaxson Starks [facility] Work Phone: Comment on above: Series: 12-23-2015 hepatitis A vaccine, pediatric/adolescent dosage, 2 dose schedule; Translations: [Hepatitis A, Ped/Adol] Jaxson Starks [facility] Work Phone: Comment on above: Series: 11-22-2014 hepatitis A vaccine, unspecified formulation Kenroy Jackson [facility] 11-22-2014 hepatitis A vaccine, pediatric/adolescent dosage, 2 dose schedule; Translations: [Hepatitis A, Ped/Adol] Jaxson Starks [facility] Work Phone: Comment on above: Series: 11-22-2014 tetanus toxoid, redu anup diphtheria toxoid, and acellular pertussis vaccine, adsorbed; Translations: [[facility]dap[facility] Comment on above: Series: 05-04-2012 influenza virus vacc ine, unspecified formulation Linnea B Iliano Work Phone: [facility] Comment on above: Series: 05-04-2012 influenza, seasonal, injectable Jaxson Starks [facility] Work Phone: 05-26-2011 influenza virus vacc ine, unspecified formulation Kenroy Jackson [facility] 05-26-2011 influenza, seasonal, injectable Linnea B Iliano Work Phone: [facility] Work Phone: 05-20-2010 influenza virus vacc ine, unspecified formulation Kenroy Jackson [facility] 05-20-2010 influenza, seasonal, injectable Linnea B Iliano Work Phone: [facility] Work Phone: 04-23-2009 influenza virus vacc ine, H1N1, live Kenroy Jackson [facility] 04-23-2009 influenza virus vacc ine, unspecified formulation Kenroy Jackson [facility] 04-23-2009 influenza, seasonal, injectable Linnea B Iliano Work Phone: [facility] Work Phone: 04-23-2009 novel Influenza-H1N1 -09, live virus for nasal administration Linnea B Iliano Work Phone: [facility] Work Phone: 03-25-2009 diphtheria, tetanus toxoids and acellular pertussis vaccine Kenroy Jackson [facility] 03-25-2009 diphtheria, tetanus toxoids and acellular pertussis vaccine, 5 pertussis antigens Jaxson Starks [facility] Work Phone: Comment on above: Series: 03-25-2009 poliovirus vaccine, inactivated Jaxson Starks [facility] Work Phone: Comment on above: Series: 03-25-2009 varicella virus [facility] Comment on above: Series: 03-22-2009 poliovirus vaccine, unspecified formulation Kenroy Jackson [facility] 06-20-2006 influenza virus vacc ine, unspecified formulation Linnea B Iliano Work Phone: [facility] Comment on above: Series: 06-20-2006 influenza, seasonal, injectable Jaxson Starks [facility] Work Phone: 09-02-2005 measles, mumps and rubella virus vaccine [facility] Comment on above: Series: 06-29-2005 influenza virus vacc ine, unspecified formulation Linnea Zapata Work Phone: [facility] Comment on above: Series: 06-29-2005 influenza, seasonal, injectable Jaxson Starks [facility] Work Phone: 05-28-2005 influenza virus vacc ine, unspecified formulation Linnea Angulo Iliivan Work Phone: [facility] Comment on above: Series: 05-28-2005 influenza, seasonal, injectable Jaxson Starks [facility] Work Phone: 02-19-2005 poliovirus vaccine, inactivated Jaxson Starks [facility] Work Phone: Comment on above: Series: 02-19-2005 poliovirus vaccine, unspecified formulation Kenroy Jackson [facility] 11-16-2004 diphtheria, tetanus toxoids and acellular pertussis vaccine, unspecified formulation Linnea Zapata Work Phone: [facility] Work Phone: 11-16-2004 DTaP, unspecified formulation Kenroy Jackson [facility] 11-16-2004 haemophilus influenz ae type b vaccine, PRP-OMP conjugate Jaxson Starks [facility] Work Phone: Comment on above: Series: 11-16-2004 pneumococcal conjuga te vaccine, 7 valent Jaxson Starks [facility] Work Phone: Comment on above: Series: 11-06-2004 haemophilus influenz ae type b vaccine, conjugate unspecified formulation Linnea B Iliivan Work Phone: [facility] Work Phone: 11-06-2004 Hib, unspecified formulation Kenroy Jackson [facility] 10-27-2004 diphtheria, tetanus toxoids and acellular pertussis vaccine, 5 pertussis antigens Jaxson Starks [facility] Work Phone: Comment on above: Series: 10-26-2004 diphtheria, tetanus toxoids and acellular pertussis vaccine Kenroy Abrahampsey [facility] 08-20-2004 measles, mumps and rubella virus vaccine [facility] Comment on above: Series: 08-20-2004 varicella virus vaccine [facility] Comment on above: Series: 05-22-2004 hepatitis B vaccine, adult dosage Jaxson Starks [facility] Work Phone: Comment on above: Series: 05-22-2004 hepatitis B vaccine, pediatric or pediatric/adolescent dosage Kenroy Manuel [facility] 03-13-2004 diphtheria, tetanus toxoids and acellular pertussis vaccine Kenroy Abrahampsey [facility] 03-13-2004 diphtheria, tetanus toxoids and acellular pertussis vaccine, 5 pertussis antigens [facility] Work Phone: Comment on above: Series: 03-13-2004 haemophilus influenz ae type b vaccine, PRP-OMP conjugate Jaxsno Starks [facility] Work Phone: Comment on above: Series: 03-13-2004 pneumococcal conjuga te vaccine, 7 valent Jaxson Starks [facility] Work Phone: Comment on above: Series: 01-08-2004 diphtheria, tetanus toxoids and acellular pertussis vaccine Kenroy Manuel [facility] 01-08-2004 diphtheria, tetanus toxoids and acellular pertussis vaccine, 5 pertussis antigens [facility] Work Phone: Comment on above: Series: 01-08-2004 haemophilus influenz ae type b vaccine, PRP-OMP conjugate Jaxson Pascale [facility] Work Phone: Comment on above: Series: 01-08-2004 pneumococcal conjuga te vaccine, 7 valent Jaxson Starks -[facility] Work Phone: Comment on above: Series: 01-08-2004 poliovirus vaccine, inactivated Jaxson Starks -[facility] Work Phone: Comment on above: Series: 01-08-2004 poliovirus vaccine, unspecified formulation Kenroy Jackson [facility] 2003 diphtheria, tetanus toxoids and acellular pertussis vaccine Kenroy Jackson [facility] 2003 diphtheria, tetanus toxoids and acellular pertussis vaccine, 5 pertussis antigens Jaxson Starks -[facility] Work Phone: Comment on above: Series: 2003 haemophilus influenz ae type b vaccine, PRP-OMP conjugate Jaxson Starks -[facility] Work Phone: Comment on above: Series: 2003 hepatitis B vaccine, adult dosage Jaxson Starks -[facility] Work Phone: Comment on above: Series: 2003 hepatitis B vaccine, pediatric or pediatric/adolescent dosage Kenroy Jackson [facility] 2003 pneumococcal conjuga te vaccine, 7 valent Jaxson Starks -[facility] Work Phone: Comment on above: Series: 2003 poliovirus vaccine, inactivated Jaxson Starks -[facility] Work Phone: Comment on above: Series: 2003 poliovirus vaccine, unspecified formulation Kenroy Manuel [facility] 2003 hepatitis B vaccine, adult dosage Jaxson Starks [facility] Work Phone: Comment on above: Series: 2003 hepatitis B vaccine, pediatric or pediatric/adolescent dosage Kenroy Manuel [facility] Payers Date Payer Category Payer Self-pay 2023 Medicaid [id number] 2019 [facility] [id number] 2019 Medicaid [id number] 2003 Unknown [id number] 2003 Unknown [id number] 56 2003 Unknown [id number] 27 2003 Unknown [id number] 27 2003 Unknown [id number] 27 1982 Unknown [id number] 93 1979 Unknown [id number] 56 1965 Unknown [id number] 32 1965 Unknown [id number] 32 Unknown [id number] 51 Unknown [id number] 51 Unknown [employer] MEDICA[employer] Unknown [id number] 31 Unknown [id number] 31 Social History Date Type Detail Facility Start: 09-23-2020 End: 08-02-2022 Not Known [facility] Lives with grandparent(s) Lives with grandparent(s) [facility] Work Phone: [facility] [place] Start: 09-27-2022 Tobacco smoking status NHIS Never smoked tobacco (finding) [facility] Start: 2003 Sex Assigned At Male [facility] Start: 10-21-2022 End: 11-14-2023 Tobacco smoking status NHIS Smoker (finding) [facility] Tobacco Current vaping o r e-cigarette use Smokeless Tobacco Use:. Vaping [facility] Tobacco smoking status No Smoking Status Entered [facility] NEGATED: Highlighted row - - [facility] Work Phone: Goals Date Patient Goal Desired Activity /State Functional Status Date Assessment Result Facility 03-07-2023 Functional Status N/A [facility] 10-21-2022 Functional status Patient at Baseline [facility] Work Phone: NEGATED: Highlighted row Functional performance Functional status health issues are not documented Disease [facility] Work Phone: Mental Status Date Assessment Result Facility 10-21-2022 Cognitive function Cognitive Sta tus Patient at Baseline [facility] Work Phone: NEGATED: Highlighted row Cognitive function [Interpretation] Cognitive status health issues are not documented Disease [facility] Work Phone: Clinical Notes 05-15-2021 to 05-16-2023 Note Date & Type Note Facility 05-16-2023 Evaluation note Encounter Date Diagnosis Assessment Notes Apr, Polydipsia (ICD-10 - R63.1) [employer] Other 10-26-2023 Evaluation note* Encounter Date Diagnosis Assessment Notes Treatment Notes Treatment Clinical Notes Mar, TMJ (temporomandibular joint disorder) (ICD-10 - M26.609) [employer] Other 10-09-2023 Evaluation note* Encounter Date Diagnosis Assessment Notes Treatment Notes Treatment Clinical Notes Mar, TMJ (temporomandibular joint disorder) (ICD-10 - M26.609) [employer] Other 10-06-2023 Evaluation note* Encounter Date Diagnosis Assessment Notes Treatment Notes Treatment Clinical Notes Mar, TMJ (temporomandibular joint disorder) (ICD-10 - M26.609) [employer] Other 10-03-2023 Evaluation note* Encounter Date Diagnosis Assessment Notes Treatment Notes Treatment Clinical Notes Mar, TMJ (temporomandibular joint disorder) (ICD-10 - M26.609) [employer] Other 09-11-2023 Hospital Discharge instructions Patient Education 03/07/2023 18:53:14 Cervical Sprain, Edvc-om-Ljex Cervical Sprain A cervical sprain is also [...] Follow these instructions at home: Medicines Take axzt-xop-ouvpdfe and prescription medicines only as told by your doctor. Ask your doctor if the medicine prescribed to you: ?Requires you to avoid driving or using heavy machinery. ?Can cause trouble pooping (constipation). You may need to take these actions to prevent or treat trouble pooping: ?Drink enough fluid to keep your pee (urine) pale yellow. ?Take ixnf-rae-psmffwc or prescription medicines. ?Eat foods that are [...] provider. Document Revised: 02/20/2020 Document Reviewed: 02/20/2020 [employer] Patient Education 2022 [employer]. 03/07/2023 18:52:56 Temporomandibular Joint Syndrome Temporomandibular Joint [...] Do not chew gum. General instructions Take gbty-sim-acrllqt and prescription medicines only as told by [...] important. Where to find more information National [place] [employer]: www.nidcr.nih.gov Contact [...] provider. Document Revised: 01/24/2022 Document Reviewed: 01/24/2022 [employer] Patient Education 2022 [employer] [place]. Follow Up Care 03/07/2023 14:45:40 With:NONE, XXXX Address: [phone] When: Unknown [facility] 08-20-2023 Evaluation note* [...] 6 months. No evidence of ludwigs angina, KEYBOARD INSTRUMENT TUNER, retropharyngeal abscess, or neoplasm, as he does [...] pack and cyclobenzaprine. Given strict return precautions. [employer] Other 08-13-2023 Evaluation note* Encounter Date Diagnosis [...] plan. Jan, Sinus pressure (ICD-10 - J34.89) [facility] [employer] Other 07-01-2023 History general Narrative - Reported* Type Description Date Surgical History wisdom teeth removal 12/2022 [facility] [employer] Other 04-29-2023 Consult note Author Wai Alfonso [facility] October 23, 2022 10:23am Note Date/Time October 23, 2022 10: 06am [facility] [address] [place] [address] Cardiology Consult Note Signed Patient: Cameron Teresa MR#: [id number] : 2005 Acct:[id number] Age/Sex: 17 / M Adm Date: 3 Loc: Room: [address] [place] [address] Type: ADM IN Attending Dr: Saqib Brantley DO Copies to: Saqib Brantley, NO FAMILY PHYSICIAN Wai Alfonso MD~ Cardiology HPI History of Present Illness Consult Date: 10/23/22 Reason for Consult: I been asked by the patient's primary medicine service to see Cameron in consultation for opinion and recommendations regarding ST abnormalities on ECG prior to transfer from ICU to [facility] for treatment of depression. HPI: Mr. Teresa is a 17 year old male with no known prior cardiac history but a history of depression (patient's last suicide attempt was at age 14) who was admitted to the ICU from [facility] emergency department yesterday after he presented relating [...] brought immediately to the emergency department here [facility] for evaluation and treatment. From a cardiac [...] cardiac/medical risk assessment/stratification prior to transfer to [facility] for further inpatient treatment of the patient's [...] changes or abnormalities: early repolarization (normal variant) GA, pacemaker, normal Normal tracing: no change compared [...] signed by Wai Alfonso MD> 10/23/22 1023 [facility] Work Phone: 1(319) 391-937004-28-2023 Progress note Author Saqib Brantley [facility] October 22, 2022 6:28pm Note Date/Time October 22, 2022 6:2 9pm [facility] [address] [place] [address] Hospitalist Progress Note Signed Patient: Cameron Teresa MR#: [id number] : 2005 Acct:[id number] Age/Sex: 17 / M Adm Date: 3 Loc: Room: [address] [place] [address] Type: ADM IN Attending Dr: Saqib Brantley [...] <Electronically signed by Saqib Brantley DO> 10/22/22 9320 [facility] Work Phone: 1(710) 116-784704-28-2023 Consult note Author Steve linares [facility] October 22, 2022 10:51am Note Date/Time October 22, 2022 10: 51am [facility] [address] [place] [address] Psychiatry Consult Note Signed Patient: Cameron Teresa MR#: [id number] : 2005 Acct:[id number] Age/Sex: 17 / M Adm Date: 3 Loc: Room: [address] [place] [address] Type : ADM IN Attending Dr: Saqib [...] up with the psychiatric nurse practitioner at [facility] and was staying in sober living. He said he was supposed to start a job at [employer] today and was working 2 years from [employer]. He reports previous psychiatric hospitalization at [facility] at the age of 14 after a [...] Appearance Clear Urine pH 8.5 Ur Specific [place] 1.023 Urine Protein Trace H Urine Glucose [...] Color Urine Appearance Urine pH Ur Specific [place] Urine Protein Urine Glucose (UA) Urine Ketones [...] signed by Steve Flood MD> 10/22/22 1051 [facility] Work Phone: 1(509) 356-458504-27-2023 History and physical note Author Saqib Brantley [facility] October 21, 2022 8:50pm Note Date/Time October 21, 2022 8:4 4pm [facility] [address] [place] [address] Hospitalist H&P Signed Patient: Cameron Teresa MR#: [id number] : 2005 Acct:[id number] Age/Sex: 17 / M Adm Date: 04/27/2 3 Loc: Room: [id number] Type: ADM IN Attending Dr: Saqib Brantley [...] % (Auto) 14.0 % (.) 10/21/22 18:16 [place] % (Auto) 6.1 % (.) 10/21/22 18:16 Eos % (Auto) 0.4 % (.) 10/21/22 18:16 Baso % (Auto) 0.3 % (.) 10/21/22 18:16 Nucleat RBC Rel Count 0.1 /100 WBC (0-0.5) 10/21/22 18:16 Neut # (Auto) 8.9 x10E3/uL (1.8-7.7) H 10/21/22 18:16 Lymph # (Auto) 1.6 x10E3/uL (1.00-4.8) 10/21/22 18:16 [place] # (Auto) 0.7 x10E3/uL (0.0-0.8) 10/21/22 18:16 [...] pH 8.5 (5.0-9.0) 10/21/22 18:34 Ur Specific [place] 1.023 (1.001-1.030) 10/21/22 18:34 Urine Protein Trace [...] <Electronically signed by Saqib Brantley DO> 10/21/222049 [facility] Work Phone: [phone]) 658-769804-27-2023 History and physical note Author Saqib Brantley [facility] October 21, 2022 8:50pm Note Date/Time October 21, 2022 8:4 4pm [facility] [address] [place] [address] Hospitalist H&P Signed Patient: Cameron Teresa MR#: [id number] : 2005 Acct:[id number] Age/Sex: 17 / M Adm Date: 3 Loc: Room: [address] [place] [address] Type: ADM IN Attending Dr: Saqib Brantley [...] % (Auto) 14.0 % (.) 10/21/22 18:16 [place] % (Auto) 6.1 % (.) 10/21/22 18:16 Eos % (Auto) 0.4 % (.) 10/21/22 18:16 Baso % (Auto) 0.3 % (.) 10/21/22 18:16 Nucleat RBC Rel Count 0.1 /100 WBC (0-0.5) 10/21/22 18:16 Neut # (Auto) 8.9 x10E3/uL (1.8-7.7) H 10/21/22 18:16 Lymph # (Auto) 1.6 x10E3/uL (1.00-4.8) 10/21/22 18:16 [place] # (Auto) 0.7 x10E3/uL (0.0-0.8) 10/21/22 18:16 [...] pH 8.5 (5.0-9.0) 10/21/22 18:34 Ur Specific [place] 1.023 (1.001-1.030) 10/21/22 18:34 Urine Protein Trace [...] <Electronically signed by Saqib Brantley DO> 10/21/222049 [facility] Work Phone: [phone] 189-996802-06-2023 Hospital Discharge instructions Patient Transfer Information from [...] Primary Care Provider : PCP, Other (PCP) (BCY [id number]) - [facility] 03-01-2022 NoteHNO ID: [id number] Author: Aleksandra Ross MD Service: ? Author [...] radial pulses 2+ (more content not included)... [facility]02-01-2022 NoteHNO ID: [id number] Author: Aleksandra Ross MD Service: ? Author Type: Physician Type: Progress Notes Filed: 08/02/2021 9:41 PM Note Text: INITIAL OUTPATIENT VISIT PEDIATRIC RHEUMATOLOGY SERVICE DATE: 07/28/2021 REFERRING PHYSICIAN: Jaxson Starks [address] [place] [address] PRIMARY CARE PHYSICIAN: Jaxson Starks DO ACCOMPANIED [...] STUDIES: I have perso (more content not included)...[facility]01-21-2022 NoteHNO ID: [id number] Author: Jaxson Starks, DO Service: ? Author Type: Physician Type: Progress Notes Filed: 07/17/2021 7:35 AM Note Text: Patient overdue for well-child visits and/or vaccines. Please call to update PCP if needed and/or schedule an appointment.[facility] 07-08-2021 NoteHNO ID: [id number] Author: Jaxson Starks, DO Service: ? Author [...] SALINE) 0.65 % nasal spray Use 1 [place] in the nose as needed. albuterol HFA [...] Teresa DATE: July 08, 2021 TIME: 1:05 [facility]11-19-2021 NoteHNO ID: [id number] Author: Jaxson Starks DO Service: ? Author [...] Teresa DATE: May 15, 2021 TIME: 12:10 [facility] complaint+Reason for visit Narrative* Chief Complaint discuss referral to psych Reason for Visit Depression PTSD (post-traumatic stress disorder) [facility] Work Phone: [facility] complaint+Reason for visit Narrative* Chief Complaint discuss referral to psych depression Reason for Visit Depression PTSD (post-traumatic stress disorder) [facility] Work Phone: Chief complaint+Reason for visit Narrative* Chief Complaint discuss referral to psych depression anxiety Reason for Visit Depression PTSD (post-traumatic stress disorder) Restless leg Panic attack due to [facility] stress [facility] Work Phone: [place] complaint+Reason for visit Narrative* Chief Complaint discuss referral to psych depression anxiety overdose Reason for Visit Depression PTSD (post-traumatic stress disorder) Restless leg Panic attack due to [facility] Work Phone: Clinical Notes [facility] Consult note Author Chandler Flood [facility] October 22, 2022 10:51am Note Date/Time October 22, 2022 10: 51am [facility] [address] [place] [address] Psychiatry Consult Note Signed Patient: Cameron Teresa MR#: [id number] : 2005 Acct:[id number] Age/Sex: 17 / M Adm Date: 3 Loc: Room: [address] [place] [address] Type : ADM IN Attending Dr: Saqib [...] up with the psychiatric nurse practitioner at [facility] and was staying in sober living. He said he was supposed to start a job at [employer] today and was working 2 years from [employer]. He reports previous psychiatric hospitalization at [facility] at the age of 14 after a [...] Appearance Clear Urine pH 8.5 Ur Specific [place] 1.023 Urine Protein Trace H Urine Glucose [...] Color Urine Appearance Urine pH Ur Specific [place] Urine Protein Urine Glucose (UA) Urine Ketones [...] recurrent, moderate Status: Acute Plan Admit to for management of depression and to ensure [...] signed by Steve Flood MD> 10/22/22 1051 [facility] Work Phone: Consult note Author Wai Alfonso [facility] October 23, 2022 10:23am Note Date/Time October 23, 2022 10: 06am [facility] [address] [place] [address] Cardiology Consult Note Signed Patient: Cameron Teresa MR#: [id number] : 2005 Acct:[id number] Age/Sex: 17 / M Adm Date: 3 Loc: Room: [address] [place] [address] Type: ADM IN Attending Dr: Saqib Brantley DO Copies to: Saqib Brantley, DO NO FAMILY PHYSICIAN Wai Alfonso MD~ Cardiology HPI History of Present Illness Consult Date: 10/23/22 Reason for Consult: I been asked by the patient's primary medicine service to see Cameron in consultation for opinion and recommendations regarding ST abnormalities on ECG prior to transfer from ICU to [facility] for treatment of depression. HPI: Mr. Teresa is a 17 year old male with no known prior cardiac history but a history of depression (patient's last suicide attempt was at age 14) who was admitted to the ICU from [facility] emergency department yesterday after he presented relating [...] brought immediately to the emergency department here [facility] for evaluation and treatment. From a cardiac [...] cardiac/medical risk assessment/stratification prior to transfer to [facility] for further inpatient treatment of the patient's [...] changes or abnormalities: early repolarization (normal variant) GA, pacemaker, normal Normal tracing: no change compared [...] signed by Wai Alfonso MD> 10/23/22 1023 [facility] Work Phone: Discharge summary Author Saqib Brantley [facility] October 23, 2022 1:05pm Note Date/Time October 23, 2022 1:0 5pm [facility] [address] [place] [address] Discharge Summary Signed Patient: Cameron Teresa MR#: [id number] : 2005 Acct:[id number] Age/Sex: 17 / M Adm Date: 3 Loc: Room: 3X5747-[address]: Saqib Brantley DO Copies to: Saqib Brantley DO NO FAMILY PHYSICIAN~ Providers Date of Discharge: 10/23/22 Discharging Provider: Saqib Brantley Primary Care Provider: PHYSICIAN [facility] FAMILY Consults: 10/21/22 20:35 Consult to Psychiatry Routine 10/21/22 23:12 Consult to Case Management Routine 10/23/22 08:58 Consult to Cardiology Routine Discharge Diagnosis Final Diagnosis Final Discharge Diagnosis: 1. Suicide attempt 2. Overdose 3. Suicidal ideation 4. Depression 5. Hypertension 6. Abnormal EKG Summary Hospital Course Hospital course: This patient is a 17-year-old male who presented to the emergency department viaEMS on 10/21/2022. The patient had been at [...] signed by Saqib Brantley DO> 10/23/22 1305 [facility] Work Phone: evaluation + Plan note S Evaluation + Plan note No data available for this section [facility] Evalucejua noteNo assessment information available [facility] Work Phone: Evaluation note* Diagnosis Onset Date Resolution Status Abnormal electrocardiogram finding acute Major depressive disorder, recurrent, moderate acute Medication side effects acut e Suicide attempt by multiple drug overdose acute [facility] Work Phone: Evaluzrspd noteNo InformationNort [employer] Other evaluzkrbm note* Diagnosis Onset Date Resolution Status Depression acute PTSD (post-traumatic stress disorder) acute [facility] Work Phone: Evaluation note* Diagnosis Onset Date Resolution Status Depression acute PTSD (post-traumatic stress disorder) acute Restless leg acute Panic attack due to exceptional stress acute [facility] Work Phone: Evaluation note* Diagnosis Onset Date Resolution Status Insomnia acute PTSD (post-traumatic stress disorder) acute Substance abuse in remission acute [facility] Work Phone: History general Narrative - Reported* Type Description Date Medical History Anxiety Medical History PTSD (post-traumatic stress diso rder) Medical History Depression Medical History TMJ (temporomandibular joint dis order) Medical History Substance abuse in remission Surgical History Oto teeth removal 12/2022 [employer] Other History of Present illness Narrative* The [...] relationships are appropriate. Eats meals with family. Hmebtv-iztyu-ykculop interactions are normal. Has a supportive adult [...] yo male presents as new pt [facility] * Previous PCP: Dr. 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 [employer] * Pt does not exercise/workout * Pt denies abdominal pain * last BM: 3 days ago * when he goes its like rabbit terds * Pt takes docusate and Fiber-Lax daily for the past year 2/2 constipation * Pt tried MiraLax ONCE daily last year and he had liquid stools * Pts mom denies any family hx of colon cancer [facility] Work Phone: Hospital course NarrativeL Hospital Discharge instructions Additional Instructions Continue current medication Increase oral fluids Change positions carefully while you are dizzy Follow-up with your provider who prescribes the affects your Return to the ER for worsening headache vomiting high fever or any other [facility] Work Phone: Hospital Discharge instructions Additional Instructions Inpatient Psychiatry to manage care: - Full code - Maintain seizure and suicide precautions per protocol -[facility] Work Phone: Hospital Discharge instructionsAmbulatory Orders* Referral to Psychiatry Location: None Selected [facility] Work Phone: Hospital Discharge instructions Additional Instructions Please find help. You have experience with sobriety, so you know that you can get clean. You cannot be your own counselor, though. We are happy to help if you need us. You are too young to , but you take that risk every time you use.[facility] Work Phone: Instructions* Name Dates Details Instructions not documented [facility] Work Phone: progress note Author Saqib Brantley [facility] October 22, 2022 6:28pm Note Date/Time October 22, 2022 6:2 9pm [facility] [address] [place] [address] Hospitalist Progress Note Signed Patient: Cameron Teresa MR#: [id number] : 2005 Acct:[id number] Age/Sex: 17 / M Adm Date: 3 Loc: Room: [address] [place] [address] Type: ADM IN Attending Dr: Saqib Brantley [...] <Electronically signed by Saqib Brantley DO> 10/22/22 1552 [facility] Work Phone: Progress note No data available for this section [facility] Care Summary Purpose Family History [...] 27 1:57pm Hospital Course Note HNO ID: [id number] Author: Jules Munoz Service: Pediatric Psychiatry Author [...] currently in residential substance use treatment at [facility] with several previous psychiatric admissions ([facility] in January 2020 and in twice in 2018, and [facility] in June 2019) admitted to Inpatient Psychiatry for SI with multiple plans (running into traffic, ODing on OTC medications, or jumping off ledge at [facility]). Family history is significant for mother w [...] Care Provider : Jaxson Starks DO (PCP) ([facility] 9328) - Unknown, Physician Chief Complaint * Cameron is here today for NPV previously seen last by his director of strategic marketing who is Dr. Starks at [facility] in [place]. * Pt reports that for the past [...] (post-traumatic stress disorder) Substance abuse in remission Chief Complaint Sleep issues Back Pain Reason for Visit Insomnia PTSD (post-traumatic stress disorder) Substance abuse in remission Reason for Referral Reason *Waiting for appt Please call pt to establish care with primary doctor and to be seen for his chronic neck pain Diagnosis 1 Lymph node enlargeme nt (R59.9) Referral Organization [facility] Referring Provider First Name Nazario Referring Provider Last Name Babatunde Referring Provider Specialty Nurse Vamshi michelle Referred Organization [facility] Referred Provider Nayla Dorsey Referred Address [address], [place],[address] Referred Provider Specialty Nurse Naye dsouza Referral [...] section and content) DATE CREATED AUTHOR 06/10/2020 [facility] DATE CREATED AUTHOR AUTHOR'S ORGANIZ ATION 09/29/2020 [facility] DATE CREATED AUTHOR AUTHOR'S ORGANIZ ATION 09/29/2020 [employer] [facility] DATE CREATED AUTHOR AUTHOR'S ORGANIZ ATION 10/31/2020 [facility] DATE CREATED AUTHOR AUTHOR'S ORGANIZ ATION 11/01/2020 [facility] DATE CREATED AUTHOR AUTHOR'S ORGANIZ ATION 11/23/2020 [facility] DATE CREATED AUTHOR AUTHOR'S ORGANIZ ATION 05/18/2021 [facility] DATE CREATED AUTHOR AUTHOR'S ORGANIZ ATION 09/16/2021 [facility] DATE CREATED AUTHOR AUTHOR'S ORGANIZ ATION 08/25/2022 [facility] DATE CREATED AUTHOR AUTHOR'S ORGANIZ ATION 10/28/2022 [facility] DATE CREATED AUTHOR AUTHOR'S ORGANIZ ATION 04/08/2023 [facility] DATE CREATED AUTHOR AUTHOR'S ORGANIZ ATION 10/30/2023 [facility] DATE CREATED AUTHOR AUTHOR'S ORGANIZ ATION 04/11/2024 [facility] Goals (unrecognized section and content) [...] 2024 End: March 20, 2024 Team Status: Inactive Member Role Status Dates Nayla Dorsey APRN Primary Care Pr ovider, Attending Provider Active Start: May 01, 2024 End: May 01, 2024 Team Status: Active Member Role Status [...] FAMILY Primary Care Provider Active Margarita Schaeffer [facility] Emergency Provider Active Team Status: Inactive Member Role Status Dates PHYSICIAN NO FAMILY Primary Care Provider Active OSEI Rousseau Attending Provider Active Team Status: Inactive Member [...] Mehdi Ornelas PA-C Emergency Provider Active Saqib Frings , DO Admit Provider, Attending Provider Active Arnel Carlisle MD Other Provider Active Sharon Shahid , [employer] Other Provider Active Chandler Flood MD Other Provider Active Nicholas Frias MD Other Provider Active America Castro RN Other Provider Active Ginger Cid DO Other Provider Active Regine Bingham MD Other Provider Active Iglesia Milan MD Other Provider Active Kellee Lambert MD Other Provider Active Ernie Jimenez MD Other Provider Active Anne-Marie Smith , [employer] Other Provider Active Elizabeth Serrato MD Other Provider Active Arnel Ibanez MD Other Provider Active Lizette Vega MD Other Provider Active Sherrie Wick , [facility] Other Provider Active Soledad Perez MD Other [...] Dorsey APRN Attending Provider Active Team Status: Inactive [...] 2023 End: November 14, 2023 Team Status: Inactive Member Role Status Dates Nayla Dorsey APRN Primary Care Pr ovider, Attending Provider Active Start: May 01, 2024 End: May 01, 2024 REASON FOR VISIT (unrecogniz ed section [...] BE BASED ON THE PRIMARY CLINICAL RECORDS. [facility] [email or web address] [facility]. provides no warranty or guarantee of the accuracy or completeness of information in this document.
--- NOTE | 2024-05-14 02:13 | ECG_ITS ---
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
--- NOTE | 2024-05-14 02:21 | ED.ARRPALP1 ---
HPI - Arrhythmia/Palpitations General Chief Complaint: Arrhythmia/Palpitations Stated Complaint: heart flutters Time Seen by Provider: 05/14/24 02:11 Source: patient Mode of arrival: walk-in Limitations: no limitations History of Present Illness HPI narrative: patient has history of substance abuse. Daily methadone but he missed the past 2 days. Is due for his next dose at 6am. Not able to sleep tonight because when he starts to fall asleep feels like his heart flutters and wakes him up. No dyspnea or nausea. No cough or fever Related Data Home Medications ?Medication ?Instructions ?Recorded ?Confirmed cariprazine 1.5 mg capsule 1.5 mg PO DAILY 06/10/23 06/10/23 (Vraylar) venlafaxine 75 mg capsule,extended 225 mg PO DAILY 06/10/23 06/10/23 release 24 hr (Effexor XR) Previous Rx's ?Medication ?Instructions ?Recorded ondansetron 4 mg disintegrating 4 mg PO TID PRN nausea and 04/03/24 tablet vomiting #10 tabs ketorolac 10 mg tablet 10 mg PO Q8H PRN pain 2 days #6 04/06/24 tabs Allergies Allergy/AdvReac Type Severity Reaction Status Date / Time No Known Drug Allergies Allergy Verified 05/14/24 02:09 Review of Systems ROS Status of ROS 10 or more systems reviewed and unremarkable except as noted in history and below PFSH PFSH Social History Smoking status: Current every day smoker Little interest or pleasure in doing things: not at all Feeling down, depressed, or hopeless: not at all Exam Constitutional Vital Signs, click to edit/add: Last Vital Signs Temp 98.2 F 05/14/24 02:02 Pulse 75 05/14/24 02:02 Resp 16 05/14/24 02:02 BP 144/86 H 05/14/24 02:02 Pulse Ox 99 05/14/24 02:02 O2 Del Method Room Air 05/14/24 02:02 Common normals: no apparent distress, average body habitus, oriented x3, no limitations, healthy appearing, alert and well nourished [facility] Common normals: normocephalic and head/scalp atraumatic Eye Common normals: PERRL and EOMs intact bilaterally Respiratory Common normals: normal respiratory effort, no retractions, no use of accessory muscles and clear to auscultation bilaterally Cardio Common normals: regular rate, regular rhythm, S1 normal heart sound and S2 normal heart sound GI Common normals: Normal to inspection, nondistended, normoactive bowel sounds present, soft to palpation and non-tender Extremity Common normals: normal to inspection and full ROM Neuro Common normals: oriented x3, CN's II-XII intact bilaterally, moves all extremities and no focal motor deficits Psych Appearance: grossly normal Course Vital Signs Vital signs: Vital Signs Temperature 98.2 F 05/14/24 02:02 Pulse Rate 75 05/14/24 02:02 Respiratory Rate 16 05/14/24 02:02 Blood Pressure 144/86 H 05/14/24 02:02 Pulse Oximetry 99 05/14/24 02:02 Oxygen Delivery Method Room Air 05/14/24 02:02 Temperature 98.2 F 05/14/24 02:02 Pulse Rate 75 05/14/24 02:02 Respiratory Rate 16 05/14/24 02:02 Blood Pressure 144/86 H 05/14/24 02:02 Pulse Oximetry 99 05/14/24 02:02 Oxygen Delivery Method Room Air 05/14/24 02:02 MDM - Arrhythmia/Palpitations MDM Narrative Medical decision making narrative: patient presents complaining of sensation of flutter in his chest interfering with him sleeping. He did miss 2 days of methadone because he did not make it to the clinic. Does have an appointment this AM. serial troponin neg. EKGNSR.. early repolarization. Monitor with episodes of sinus arrhythmia . Patient reassured and advised to follow up with his doctor for Holter monitor as part of his workup Lab Data Labs: Lab Results 05/14/24 05/14/24 Range/Units 02:40 04:05 WBC 8.1 (4.0-11.0) 10^3/uL RBC 4.80 (4.70-6.10) 10^6/uL Hgb 14.0 (14.0-18.0) g/dL Hct 41.0 L (42.0-54.0) % MCV 85.4 (80.0-94.0) fL MCH 29.2 (25.9-34.0) pg MCHC 34.1 (29.9-35.2) g/dL RDW 12.4 (11.0-15.0) % Plt Count 188 (150-450) 10^3/uL MPV 10.8 (9.5-13.5) fL Neut % (Auto) 56.1 (43.0-75.0) % Lymph % (Auto) 30.3 (20.5-60.0) % [place] % (Auto) 8.4 (1.7-12.0) % Eos % (Auto) 4.7 (0.9-7.0) % Baso % (Auto) 0.4 (0.2-2.0) % Neut # (Auto) 4.5 (1.4-6.5) 10^3/uL Lymph # (Auto) 2.5 (1.2-3.8) 10^3/uL [place] # (Auto) 0.7 (0.3-0.8) 10^3/uL Eos # (Auto) 0.4 (0.0-0.7) 10^3/uL Baso # (Auto) 0.0 (0.0-0.1) 10^3/uL Abs Immat Gran (auto) 0.01 (0.00-0.03) 10^3/uL Imm/Tot Granulo (auto) 0.1 (0.0-0.5) % Sodium 141 (136-145) mmol/L Potassium 3.5 (3.5-5.1) mmol/L Chloride 106 (98-107) mmol/L Carbon Dioxide 25.9 (21.0-32.0) mmol/L Anion Gap 12.6 BUN 15.0 (7.0-18.0) mg/dL Creatinine 1.19 (0.70-1.30) mg/dL Est GFR ( Amer) >60 (>=60 mL/min/1.73m^2) Est GFR (Non-Af Amer) >60 (>=60 mL/min/1.73m^2) BUN/Creatinine Ratio 12.6 Glucose 147 H (74-106) mg/dL Calcium 8.9 (8.5-10.1) mg/dL Troponin I High Sens 11.2 10.3 (4.0-76.1) pg/mL Discharge Plan Discharge Chief Complaint: Arrhythmia/Palpitations Clinical Impression: Palpitations, Sinus arrhythmia Patient Disposition: Home, Self-Care Prescriptions / Home Meds: No Action ondansetron 4 mg tablet,disintegrating 4 mg PO TID PRN (Reason: nausea and vomiting) Qty: 10 0RF ketorolac 10 mg tablet 10 mg PO Q8H PRN (Reason: pain) 2 Days Qty: 6 0RF venlafaxine [Effexor XR] 75 mg capsule,extended release 24hr 225 mg PO DAILY Vraylar 1.5 mg capsule 1.5 mg PO DAILY Print Language: Nepali Instructions: Heart Palpitations (ED) Additional Instructions: follow up with your doctor this week for recheck Referrals: Nayla Dorsey NP [Primary Care Provider] - 1 week
--- NOTE | 2024-05-14 02:26 | XR_ITS ---
The [address] [address] Patient Name: CAMERON TERESA MRN: [id number] date: 2005 Sex: M Assigned Patient Location: ER Current Patient Location: ER Accession/Order Number: [id number] Exam Date: 05/14/2024 02:50 Report Date: 05/14/2024 04:51 At the request of: ALAN CAN Procedure: XR chest 2V EXAMINATION: XR chest 2V HISTORY: palpitations COMPARISON: No relevant comparison available. FINDINGS: LUNGS: No significant pulmonary parenchymal abnormalities. VASCULATURE: No increased pulmonary vasculature. PLEURA: No pneumothorax, effusion, or pleural thickening. CARDIAC: No cardiomegaly or cardiac silhouette abnormality. MEDIASTINUM: No visible mass or adenopathy. BONES: No fracture or visible bone lesion. OTHER: Negative. XR/XR chest 2V IMPRESSION: 1. No acute cardiopulmonary process. Electronically authenticated by: ELE URIARTE Date: 05/14/2024 04:51
[2024-05-14 02:47] LABS: Basophils Percent Auto 0.4 % (0.2-2.0); Eosinophils Absolute Auto 0.4 10^3/uL (0.0-0.7); Eosinophils Percent Auto 4.7 % (0.9-7.0); Immature Granulocytes Abs Auto 0.01 10^3/uL (0.00-0.03); Immature Granulocytes Pct Auto 0.1 % (0.0-0.5); Lymphocytes Absolute Auto 2.5 10^3/uL (1.2-3.8); Lymphocytes Percent Auto 30.3 % (20.5-60.0); Mean Corpuscular HGB Conc 34.1 g/dL (29.9-35.2); Mean Corpuscular Hemoglobin 29.2 pg (25.9-34.0); Mean Corpuscular Volume 85.4 fL (80.0-94.0); Mean Platelet Volume 10.8 fL (9.5-13.5); Monocytes Absolute Auto 0.7 10^3/uL (0.3-0.8); Monocytes Percent Auto 8.4 % (1.7-12.0); Neutrophils Absolute Auto 4.5 10^3/uL (1.4-6.5); Neutrophils Percent Auto 56.1 % (43.0-75.0); Platelet Count 188 10^3/uL (150-450); Red Cell Distribution Width 12.4 % (11.0-15.0); White Blood Count 8.1 10^3/uL (4.0-11.0)
[2024-05-14 03:04] LABS: Anion Gap 12.6; BUN Creatinine Ratio 12.6; Calcium 8.9 mg/dL (8.5-10.1); Carbon Dioxide 25.9 mmol/L (21.0-32.0); Chloride 106 mmol/L (98-107); Estimated GFR (African America >60 (>=60 mL/min/1.73m^2); Estimated GFR (Non-African Ame >60 (>=60 mL/min/1.73m^2); Glucose 147 mg/dL (74-106); Potassium 3.5 mmol/L (3.5-5.1); Sodium 141 mmol/L (136-145); Troponin I High Sensitivity 11.2 pg/mL (4.0-76.1)
[2024-05-14 04:31] LABS: Troponin I High Sensitivity 10.3 pg/mL (4.0-76.1)
[2024-05-14 05:03] VITALS: PULSE 76; O2SAT 99
== END 2024-05-14 05:06 | disposition home or self-care (01) ==
PROVIDERS: Emergency Provider Internal Medicine; PCP Nurse Practitioner Family
DX: R00.2 Palpitations (principal); I49.8 Other specified cardiac arrhythmias; F17.200 Nicotine dependence, unspecified, uncomplicated; F19.11 Other psychoactive substance abuse, in remission
CPT/HCPCS: 36415; 71046; 80048; 84484; 85025; 93005; 99285

== ENCOUNTER 2024-05-29 12:04 | Outpatient (OUT) | payer BC, SELFPAY ==
--- NOTE | 2024-05-29 12:14 | XR_ITS ---
[facility] [place] [facility] [id number] Patient Name: CAMERON TERESA MRN: [id number] date: 2005 Sex: M Assigned Patient Location: [facility] Current Patient Location: Accession/Order Number: [id number] Exam Date: 05/29/2024 12:21 Report Date: 05/30/2024 08:06 At the request of: DYLAN ALMAGUER Procedure: XR thoracic spine 3V EXAMINATION: XR lumbar spine min 4V, XR thoracic spine 3V HISTORY: Back Pain, M54.9 COMPARISON: No relevant comparison available. FINDINGS: BONES: Normal. No significant spondylosis, scoliosis, fracture, or visible bony lesion. DISC SPACES: Normal. No significant disc height narrowing, subluxation, or endplate abnormality. PARASPINOUS: Negative. No paraspinous abnormality is seen. OTHER: Negative. XR/XR thoracic spine 3V IMPRESSION: No acute radiographic abnormality Electronically authenticated by: SAMANTHA MENARD Date: 05/30/2024 08:06
--- NOTE | 2024-05-29 12:14 | XR_ITS ---
[facility] [place] [id number] Patient Name: CAMERON TERESA MRN: [id number] date: 2005 Sex: M Assigned Patient Location: [facility] Current Patient Location: Accession/Order Number: [id number] Exam Date: 05/29/2024 12:21 Report Date: 05/30/2024 08:06 At the request of: DYLAN ALMAGUER Procedure: XR lumbar spine min 4V EXAMINATION: XR lumbar spine min 4V, XR thoracic spine 3V HISTORY: Back Pain, M54.9 COMPARISON: No relevant comparison available. FINDINGS: BONES: Normal. No significant spondylosis, scoliosis, fracture, or visible bony lesion. DISC SPACES: Normal. No significant disc height narrowing, subluxation, or endplate abnormality. PARASPINOUS: Negative. No paraspinous abnormality is seen. OTHER: Negative. XR/XR lumbar spine min 4V IMPRESSION: No acute radiographic abnormality Electronically authenticated by: SAMANTHA MENARD Date: 05/30/2024 08:06
--- OUTSIDE RECORDS SUMMARY | 2024-05-29 12:33 | XMS_ITS | CCD ---
Author Organization [facility] CliniSyca Care Team Providers Care Arts Education Teacher Name Role Phone Jaxson Starks Primary Care [...] PHYSICIAN Primary Care Provider Unava ilable Laury, [facility]- Margarita Valera Emergency Provider [phone] OSEI Jarrett Attending Provider ALECIA Roach Emergency Provider [phone] JULIA Ornelas Emergency Provider DO Saqib Brantley Admit Provider DO Saqib Brantley Attending Provider [phone] MD Arnel Carlisle Other Provider ALECIA Shahid Other Provider [phone] MD Chandler Flood Other Provider MD Nicholas Frias Other Provider AGUILA Castro Other Provider Unavailable DO Ginger Cid Other Provider MD Regine Bingham Other Provider MD Kayli Iglesia Norton Other Provider MD Kellee Lambert Other Provider MD Ernie Jimenez Other Provider ALECIA Ramos Other Provider MD Elizabeth Serrtao Other Provider MD Arnel Ibanez Najesteph Other Provider MD Lizette Vega Other Provider Shamika [facility] Sherrie Jolly Other Provider MD Soledad Perez [...] Translations: [LATEX, NATURAL RUBBER] Drug allergy (disorder) S NEGATED: Highlighted row has been ruled out! [...] Start: 11-05-2021 take 2 tablets by mo ut every six hours as needed for constipation, [...] PO Daily March 20, 2024 12:00am nystatin 724384 unt/ml oral suspension (2 sources) Polyene Antifungal Start: 02-10-2023 take 4 mL by mouth four times daily Nystatin [id number] UNIT/ML 4 ml swish and swallow Mouth/Throat Four times a day for 10 days Jan, Active predniSONE 20 mg oral tablet (3 sources) Start: 03-07-2023 End: 03-12-2023 take 2 tablets by mouth once daily predniSONE 20 mg Tab 40 mg = 2 tab(s), Oral, Daily, X 5 day(s), # 10 tab(s), Refills(s) 0, Pharmacy: [facility], 198, cm, 03/07/23 16:53:00 [...] Start: 11-03-2021 take 1 capsule by mo [facility] every twenty-four hours Venlafaxine HCl ER 150 [...] Start: 02-13-2023 take 1 tablet by brenna twice daily as needed Cyclobenzaprine HCl 10 MG 1 tablet as needed Orally BID PRN for 10 days Jan, Active Start: 02-13-2023 take 1 tablet by brenna every eight hours as needed Cyclobenzaprine HCl [...] Start: 03-16-2023 take 1 tablet by brenna twice daily as needed Toradol 10mg 1 tab prn orally bid for 14 days Feb, Active Start: 02-27-2023 End: 09-21-2023 take 10 mg by mouth three times daily Ketorolac Discontinued 10 MG PO Three times daily 10 3 February 26, 2023 11:00pm September 21, 2023 2:28pm LORazepam 1 mg oral tablet (9 sources) Benzodiazepine Start: 10-31-2023 End: 03-20-2024 take 1 mg by mouth once daily Lorazepam Discontinued 1 MG PO Daily November 09, 2023 9:55am March 20, 2024 [...] 5 DROPS EAR-RIGHT Twice daily 10 October 12, 2022 11:00pm October 21, 2022 [...] Translations: [Other respiratory abnormalities] Resolved: 6 Episodic NEGATED: Highlighted row has not occurred!Residual codes; unclassified (1 source) Disease Episodic Results Test Name Value Interpretation Reference Range Facility Basophils Auto (Bld) [#/Vol] on 01-17-2024 Basophils (Bld) [#/Vol] 0.0 10 3/uL 0.0-0.1 [facility] Basophils/100 WBC Auto (Bld) on 01-17-2024 Basophils/100 WBC (Bld) 0.4 % 0.2-2.0 [facility] Eosinophils/100 WBC Auto (Bl d)on 01-17-2024 Eosinophils/100 WBC (Bld) 1.8 % 0.9-7.0 [facility] Erythrocyte distribution wid th Auto (RBC) [Ratio]on 01-17-2024 Erythrocyte distribution width (RBC) [Ratio] 12.2 % 11.0-15.0 [facility] Estimated glomerular filtrat ion rate (GFR) non- Americanon 01-17-2024 GFR/1.73 sq M.predicted among non-blacks MDRD (S/P/Bld) [Vol rate/Area] mL/min/{1.73_m2} >=60 [facility] Globulin Calc (S) [Mass/Vol] on 01-17-2024 Globulin (S) [Mass/Vol] 3.4 g/dL [facility] Hematocrit Auto (Bld) [Volum e fraction]on 01-17-2024 Hematocrit (Bld) [Volume fraction] 49.3 % 42.0-54.0 [facility] Hemoglobin [Mass/volume] in Bloodon 01-17-2024 Hemoglobin (Bld) [Mass/Vol] 16.1 g/dL 14.0-18.0 [facility] Hemoglobin.gastrointestinal [Presence] in Stoolon 01-17-2024 Hemoglobin.gastrointest inal Ql (Stl) Positive Abnormal [facility] Laboratory - Chemistry and C hemistry - challengeon 01-17-2024 Albumin [Mass/Vol] 4.4 g/dL 3.4-5.0 [facility] ALP [Catalytic activity/Vol] 105 U/L 46-116 [facility] ALT [Catalytic activity/Vol] 87 U/L High 16-63 [facility] AST [Catalytic activity/Vol] 151 U/L High 15-37 [facility] Bilirubin [Mass/Vol] 0.5 mg/dL 0.2-1.0 [facility] Calcium [Mass/Vol] 9.3 mg/dL 8.5-10.1 [facility] Chloride [Moles/Vol] 104 mmol/L 98-107 [facility] CO2 [Moles/Vol] 31.2 mmol/L 21.0-32.0 [facility] Creatinine [Mass/Vol] 1.23 mg/dL 0.70-1.30 [facility] GFR/1.73 sq M.predicted MDRD (S/P/Bld) [Vol rate/Area] mL/min/{1.73_m2} >=60 [facility] Glucose [Mass/Vol] 104 mg/dL 74-106 [facility] Potassium [Moles/Vol] 3.9 mmol/L 3.5-5.1 [facility] Protein [Mass/Vol] 7.8 g/dL 6.4-8.2 [facility] Sodium [Moles/Vol] 144 mmol/L 136-145 [facility] Urea nitrogen [Mass/Vol] 19.0 mg/dL High 7.0-18.0 [facility] Urea nitrogen/Creatinine [Mass ratio] 15.4 mg/mg [facility] Laboratory - Hematology and Cell countson 01-17-2024 Immature granulocytes/100 WBC (Bld) 0.4 % 0.0-0.5 [facility] Leukocytes [#/volume] correc jayleen for nucleated erythrocytes in Blood by Automated counon 01-17-2024 WBC corrected for nucl RBC Auto (Bld) [#/Vol] 5.7 10 3/uL 4.0-11.0 [facility] Lymphocytes Auto (Bld) [#/Vo l]on 01-17-2024 Lymphocytes (Bld) [#/Vol] 1.6 10 3/uL 1.2-3.8 [facility] Lymphocytes/100 WBC Auto (Bl d)on 01-17-2024 Lymphocytes/100 WBC (Bld) 28.0 % 20.5-60.0 [facility] MCH Auto (RBC) [Entitic mass ]on 01-17-2024 MCH (RBC) [Entitic mass] 29.4 pg 25.9-34.0 [facility] MCHC Auto (RBC) [Mass/Vol]on 01-17-2024 MCHC (RBC) [Mass/Vol] 32.7 g/dL 29.9-35.2 [facility] MCV Auto (RBC) [Entitic vol] on 01-17-2024 MCV (RBC) [Entitic vol] 90.1 fL 80.0-94.0 [facility] Monocytes Auto (Bld) [#/Vol] on 01-17-2024 Monocytes (Bld) [#/Vol] 0.6 10 3/uL 0.3-0.8 [facility] Monocytes/100 WBC Auto (Bld) on 01-17-2024 Monocytes/100 WBC (Bld) 10.2 % 1.7-12.0 [facility] Neutrophils Auto (Bld) [#/Vo l]on 07-23-2024 Neutrophils (Bld) [#/Vol] 3.4 10 3/uL 1.4-6.5 [facility] Neutrophils/100 WBC Auto (Bl d)on 01-17-2024 Neutrophils/100 WBC (Bld) 59.2 % 43.0-75.0 [facility] No Panel Informationon 01-16 Eosinophils # (Auto) 0.1 10 3/uL 0.0-0.7 [facility] Immature Granulocyte # (Auto) 0.02 10 3/uL 0.00-0.03 [facility] Platelet mean volume Auto (B ld) [Entitic vol]on 01-17-2024 Platelet mean volume (Bld) [Entitic vol] 10.7 fL 9.5-13.5 [facility] Platelets Auto (Bld) [#/Vol] on 01-17-2024 Platelets (Bld) [#/Vol] 207 10 3/uL 150-450 [facility] RBC Auto (Bld) [#/Vol]on RBC (Bld) [#/Vol] 5.47 10 6/uL 4.70-6.10 [facility] Serum or plasma albumin/glob ulin mass ratioon 01-17-2024 Albumin/Globulin [Mass ratio] 1.3 {ratio} [facility] Serum or plasma anion gap de terminationon 01-17-2024 Anion gap [Moles/Vol] 12.7 mmol/L [facility] ECG 12 lead ECGon 11-14-2023 ECG 12 [place] [address] Electrocardiograph Report Signed Patient: Cameron Teresa MR#: [id number] : 2005 Acct:[id number] Age/Sex: 18 / M ADM Date: 11/14/23 Loc: ER Room: Type: [facility] ER Attending Dr: Ordering Provider: Nazario [...] axis Borderline ECG Confirmed by Sophie Crandall ([id number]) on 11/15/2023 4:41:42 PM Referred By: Electronically Signed By:Sophie Crandall Transcribed By: MUS Signed By Sophie Crandall MD 4 [id number] Normal [facility] XR chest 1V portableon 11-13 XR chest 1V portable [facility] [place] [address] XRay Report Signed Patient: Cameron Teresa MR#: [id number] : 2005 Acct:[id number] Age/Sex: 18 / M ADM Date: 11/14/23 Loc: ER Room: Type: [facility] ER Attending Dr: Copies to: Nazario Shaw Jr, MD Ordering Provider: Nazario Shaw Jr, MD Date of Service: 11/14/23 XR/XR chest 1V portable: Overdose SINGLE VIEW CHEST CLINICAL HISTORY: Overdose. COMPARISON: None FINDINGS: Heart normal in size. Lungs are clear. No free air. XR/XR chest 1V portable IMPRESSION: NO ACUTE FINDINGS Impression dictated by: Azeem Sanchez Jr., D.OJorge11/14/2023 9:53 AM Dictation Location: [place] [address] Transcribed By: [facility] 11/14/23 0953 Dictated By: Azeem Sanhcez Jr, DO 11/14/23 0953 Signed By: 11/14/23 0953 Normal [facility] Alanine aminotransferase [En zymatic activity/volume] in Serum or PlasmaOrdered By: Nayla Dorsey on 05-17-2023 ALT [Catalytic activity/Vol] 19 U/L 752 [facility] Albumin [Mass/volume] in Ser um or Plasma by Bromocresol green (BCG) dye binding methoOrdered By: Nayla Dorsey on 05-17-2023 Albumin BCG dye [Mass/Vol] 5.0 g/dL 3.5-5.7 [facility] Alkaline phosphatase [Enzyma tic activity/volume] in Serum or PlasmaOrdered By: Nayla Dorsey on 05-17-2023 ALP [Catalytic activity/Vol] 85 U/L 34-104 [facility] Aspartate aminotransferase [ Enzymatic activity/volume] in Serum or PlasmaOrdered By: Nayla Dorsey on 05-17-2023 AST [Catalytic activity/Vol] 18 U/L 13-39 [facility] Bilirubin.total [Mass/volume ] in Serum or PlasmaOrdered By: Nayla Dorsey on 05-17-2023 Bilirubin [Mass/Vol] 0.6 mg/dL 0.3-1.0 [facility] Calcium [Mass/volume] in Ser um or PlasmaOrdered By: Nayla Dorsey on 05-17-2023 Calcium [Mass/Vol] 10.1 mg/dL 8.6-10.3 [facility] Carbon dioxide, total [Moles /volume] in Serum or PlasmaOrdered By: Nayla Dorsey on 05-17-2023 CO2 [Moles/Vol] 29.1 mmol/L 21.0-31.0 [facility] Chloride [Moles/volume] in S laura or PlasmaOrdered By: Nayla Dorsey 05-17-2023 Chloride [Moles/Vol] 104 mmol/L 98-107 [facility] Creatinine [Mass/volume] in Serum or PlasmaOrdered By: Nayla Dorsey 05-17-2023 Creatinine [Mass/Vol] 1.21 mg/dL 0.70-1.30 [facility] Globulin Calc (S) [Mass/Vol] Ordered By: Nayla Dorsey on 05-17-2023 Globulin (S) [Mass/Vol] 2.6 g/dL [facility] Glucose [Mass/volume] in Ser um or PlasmaOrdered By: Nayla Dorsey 05-17-2023 Glucose [Mass/Vol] 96 mg/dL 70-100 [facility] Comment on above: ADA recommended refe rence rangeRandom Glucose Reference Range is dependent on time and content of last meal. Glucose of more than 200 mg/dL in a nonstressed, ambulatory subject supports the diagnosis of Diabetes Mellitus. No Panel InformationOrdered By: Nayla Dorsey on 05-17-2023 Estimated GFR (CKD-EPI) > 60.0 mL/Min [facility] Creatinine Clearance (Chem N/A [facility] Potassium [Moles/volume] in Serum or PlasmaOrdered By: Nayla Dorsey on 05-17-2023 Potassium [Moles/Vol] 4.9 mmol/L 3.5-5.1 [facility] Protein [Mass/volume] in Ser um or PlasmaOrdered By: Nayla Dorsey on 05-17-2023 Protein [Mass/Vol] 7.6 g/dL 6.4-8.9 [facility] Serum or plasma albumin/glob ulin mass ratioOrdered By: Nayla Dorsey on 05-17-2023 Albumin/Globulin [Mass ratio] 1.9 {ratio} [facility] Serum or plasma anion gap de terminationOrdered By: Nayla Dorsey on 05-17-2023 Anion gap [Moles/Vol] 12.8 mmol/L 6.0-15.0 [facility] Sodium [Moles/volume] in Ser um or PlasmaOrdered By: Nayla Dorsey on 05-17-2023 Sodium [Moles/Vol] 141 mmol/L 136-145 [facility] Urea nitrogen [Mass/volume] in Serum or PlasmaOrdered By: Nayla Dorsey on 05-17-2023 Urea nitrogen [Mass/Vol] 15 mg/dL 7-25 [facility] C Urineon 04-06-2023 Bacteria identified Cx Nom [...] Locations R1: This test was performed at: [facility], [address] [place] [address], [id number]- , [place], Normal [facility] Comment on above: Performed By: #### [id number] #### [facility] Laboratory [address] [place] [id number] Family Medicine Office/Clini c Noteon 04-04-2023 Family [...] agree with above documented HPI by medical records analyst. Portions of this record may have been created with voice recognition artificial intelligence software, specifically [employer], [employer] and or [employer]. Substitutions may have occurred due to the inherent limitations of voice recognition and artificial intelligence software. Patient is a 17-year-old male who presented to [facility], for sore throat, possible thrush, patient [...] having chills, and headaches, has been taking eovg-mgt-ieikrqv Benadryl, and ibuprofen, patient states he has [...] within normal limits. 17-year-old male presented to [facility], for oral thrush, and dysuria, symptoms of [...] day(s), # 240 mL, Refills(s) 0, Pharmacy: [facility], 197, cm, 04/04/23 9:39:00 EDT, Height/Length Dosing, 86, kg, 04/04/23 9:39:00 EDT, Weight Dosing Group A Strep by PCR 2. 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 Normal [facility] Comment on above: Result Comment: Elec tronically Signed By: JAYDEN DUMONT, JOHN\.br\Date and Time Signed: 04/04/23 10:30 EDT Grp A Strp PCRon 04-04-2023 Group A Strep Negative Normal [facility] Comment on above: Result Comment: Test ing performed using DNA amplification. Performed By: #### 1 [id number] #### [facility] [address] [place] [address] Grp A Strp Intrl Ctrl Pass Normal [facility] Comment on above: Performed By: #### 1 [id number] #### [facility] [address] [place] [address] Patient Educationon 04-04-20 Patient Education Infectious Disease [...] mouth. General instructions ? Take or use kmsb-jae-vntplhu and prescription medicines only as told by your doctor. ? Eat plain yogurt that has live cultures in it. Read the label to make sure that there are live cultures in your yogurt. ? If you wear false teeth: ? Take them out before you go to bed. ? Goodwin them well. ? Soak them in a kettle cleaner. ? Rinse your mouth with warm [...] provider. Document Revised: 02/10/2022 Document Reviewed: 04/18/2020 [employer] Patient Education ? 2022 [employer]. Pulmonary Medicine E-Cigarette or Vaping Use-Associated Lung [...] symptoms? Sympt (more content not included)... Normal [facility] Patient Letter FTon 2022 Patient Letter [facility] [address], [place] [address] April 04, 2023 [address] LEARY [address] [facility] [place] [address] : 2005 Please excuse CAMERON TERESA from work . Date and/or Time of Absence: From: 04/04/23 May return to work on: 04/05/23 Restrictions: None Comments: Please excuse due to an acute illness. Provider Signature: John Giles PA-C [facility] [address] [place] [address] [facility] Consenton 03-08-2023 Consent [phone] [id number] #[id number] [facility] Family Medicine Office/Clini c Noteon 03-08-2023 [...] with voice recognition software. Occasional wrong-word or ?onopl-y-gaxx? substitutions may have occurred due to the [...] of. Patient states he was seen at [facility] about a month or so ago at [...] taking prednisone. (more content not included)... Normal [facility] Comment on above: Result Comment: Elec tronically Signed By: Kenroy Jackson PA-C\.br\Date and Time Signed: 03/08/23 08:59 EDT Patient [...] not chew gum. General instructions ? Take ffkb-rah-kgaqfmc and prescription medicines only as told by [...] Where to find more information ? [employer]: www.nidcr.nih.gov Contact [...] provider. Document Revised: 01/24/2022 Document Reviewed: 01/24/2022 [employer] Patient Education ? 2022 [employer] Cervical Sprain A cervical sprain is [...] nerves (ner (more content not included)... Normal [facility] Hinge Quick Testingon 2022 Result Negative [employer] Other Quick Strepon 02-06-2023 S. pyogenes Org specific cx Ql (Throat) Negative [facility] [employer] Other Quick Strep [employer] [facility] [employer] Other Erythrocyte sedimentation ra te by Photometric methodOrdered By: Mio Nicholson on 10-23-2022 ESR Photometric method (Bld) [Velocity] 2 mm/hr 0-14 [facility] Troponin I.cardiac [Mass/vol ume] in Serum or Plasma by Detection limit <= 0.01 ng/Ordered By: Mio Nicholson on 10-23-2022 Troponin I.cardiac DL <= 0.01 ng/mL [Mass/Vol] 3.0 pg/mL 0.0-20.0 [facility] Alanine aminotransferase [En zymatic activity/volume] in Serum or PlasmaOrdered By: Saqib Brantley on 10-22-2022 ALT [Catalytic activity/Vol] 17 U/L 7-52 [facility] Albumin [Mass/volume] in Ser um or Plasma by Bromocresol green (BCG) dye binding methoOrdered By: Saqib Brantley on 10-22-2022 Albumin BCG dye [Mass/Vol] 4.4 g/dL 3.5-5.7 [facility] Alkaline phosphatase [Enzyma tic activity/volume] in Serum or PlasmaOrdered By: Saqib Brantley on 10-22-2022 ALP [Catalytic activity/Vol] 69 U/L 34-104 [facility] Aspartate aminotransferase [ Enzymatic activity/volume] in Serum or PlasmaOrdered By: Saqib Brantley on 10-22-2022 AST [Catalytic activity/Vol] 16 U/L 13-39 [facility] Basophils Auto (Bld) [#/Vol] Ordered By: Saqib Brantley on 10-22-2022 Basophils (Bld) [#/Vol] 0.0 10*3/uL 0.0-0.2 [facility] Basophils/100 WBC Auto (Bld) Ordered By: Saqib Brantley on 10-22-2022 Basophils/100 WBC (Bld) 0.4 % . [facility] Bilirubin.total [Mass/volume ] in Serum or PlasmaOrdered By: Saqib Brantley on 10-22-2022 Bilirubin [Mass/Vol] 0.6 mg/dL 0.3-1.0 [facility] Calcium [Mass/volume] in Ser um or PlasmaOrdered By: Saqib Brantley on 10-22-2022 Calcium [Mass/Vol] 8.7 mg/dL 8.6-10.3 [facility] Carbon dioxide, total [Moles /volume] in Serum or PlasmaOrdered By: Saqib Brantley on 10-22-2022 CO2 [Moles/Vol] 24.7 mmol/L 21.0-31.0 [facility] Chloride [Moles/volume] in S laura or PlasmaOrdered By: Saqib Brantley on 10-22-2022 Chloride [Moles/Vol] 107 mmol/L 98-107 [facility] Creatine kinase [Enzymatic a ctivity/volume] in Serum or PlasmaOrdered By: Saqib Brantley on 10-22-2022 CK [Catalytic activity/Vol] 173 U/L 30-223 [facility] Creatine kinase.MB [Mass/vol ume] in Serum or PlasmaOrdered By: Saqib Brantley on 10-22-2022 CK.MB [Mass/Vol] 1.7 ng/mL 0.6-6.3 [facility] Creatinine [Mass/volume] in Serum or PlasmaOrdered By: Saqib Brantley on 10-22-2022 Creatinine [Mass/Vol] 1.00 mg/dL 0.70-1.30 [facility] Eosinophils Auto (Bld) [#/Vo l]Ordered By: Saqib Brantley on 10-22-2022 Eosinophils (Bld) [#/Vol] 0.1 10*3/uL 0.0-0.45 [facility] Eosinophils/100 WBC Auto (Bl d)Ordered By: Saqib Brantley on 10-22-2022 Eosinophils/100 WBC (Bld) 1.0 % . [facility] Erythrocyte distribution wid th Auto (RBC) [Ratio]Ordered By: Saqib Brantley on 10-22-2022 Erythrocyte distribution width (RBC) [Ratio] 13.7 % 12.0-14.8 [facility] Globulin Calc (S) [Mass/Vol] Ordered By: Saqib Brantley on 10-22-2022 Globulin (S) [Mass/Vol] 2.4 g/dL [facility] Glucose Glucometer (BldC) [M ass/Vol]Ordered By: Saqib Brantley on 10-22-2022 Glucose [Mass/Vol] 74 mg/dL [facility] Comment on above: Random Glucose Refer ence Range is dependent on time and content of last meal. Glucose of more than 200 mg/dL in a nonstressed, ambulatory subject supports the diagnosis of Diabetes Mellitus. Glucose [Mass/volume] in Ser um or PlasmaOrdered By: Saqib Brantley on 10-22-2022 Glucose [Mass/Vol] 91 mg/dL 70-100 [facility] Comment on above: ADA recommended refe rence rangeRandom Glucose Reference Range is dependent on time and content of last meal. Glucose of more than 200 mg/dL in a nonstressed, ambulatory subject supports the diagnosis of Diabetes Mellitus. Hematocrit Auto (Bld) [Volum e fraction]Ordered By: Saqib Brantley on 10-22-2022 Hematocrit (Bld) [Volume fraction] 46.1 % 38.8-50.0 [facility] Hemoglobin [Mass/volume] in BloodOrdered By: Saqib Brantley on 10-22-2022 Hemoglobin (Bld) [Mass/Vol] 15.7 g/dL 13.0-17.0 [facility] Leukocytes [#/volume] correc jayleen for nucleated erythrocytes in Blood by Automated counOrdered By: Saqib Brantley on 10-22-2022 WBC corrected for nucl RBC Auto (Bld) [#/Vol] 10.5 10*3/uL 4.1-10.5 [facility] Lymphocytes Auto (Bld) [#/Vo l]Ordered By: Saqib Brantley on 10-22-2022 Lymphocytes (Bld) [#/Vol] 1.8 10*3/uL 1.00-4.8 [facility] Lymphocytes/100 WBC Auto (Bl d)Ordered By: Saqib Brantley on 10-22-2022 Lymphocytes/100 WBC (Bld) 17.4 % . [facility] MCH Auto (RBC) [Entitic mass ]Ordered By: Saqib Brantley on 10-22-2022 MCH (RBC) [Entitic mass] 29.5 pg 27.5-35.2 [facility] MCHC Auto (RBC) [Mass/Vol]Or dered By: Saqib Brantley on 10-22-2022 MCHC (RBC) [Mass/Vol] 34.0 g/dL 32.5-35.6 [facility] MCV Auto (RBC) [Entitic vol] Ordered By: Saqib Brantley on 10-22-2022 MCV (RBC) [Entitic vol] 86.7 fL 83.5-101 [facility] Monocytes Auto (Bld) [#/Vol] Ordered By: Saqib Brantley on 10-22-2022 Monocytes (Bld) [#/Vol] 0.7 10*3/uL 0.0-0.8 [facility] Monocytes/100 WBC Auto (Bld) Ordered By: Saqib Brantley on 10-22-2022 Monocytes/100 WBC (Bld) 7.1 % . [facility] Neutrophils Auto (Bld) [#/Vo l]Ordered By: Saqib Brantley on 10-22-2022 Neutrophils (Bld) [#/Vol] 7.7 10*3/uL 1.8-7.7 [facility] Neutrophils/100 WBC Auto (Bl d)Ordered By: Saqib Brantley on 10-22-2022 Neutrophils/100 WBC (Bld) 74.1 % . [facility] No Panel InformationOrdered By: Saqib Brantley on 10-22-2022 Bedside Glucose Comment Glu2: cleaned meter [facility] Estimated GFR (CKD-EPI) > 60.0 mL/Min [facility] Creatinine Clearance (Chem 143.69 [facility] Nucleated erythrocytes [Pres ence] in Blood by Automated countOrdered By: Saqib Brantley on 10-22-2022 Nucleated RBC Auto Ql (Bld) 0.1 /100{WBC} 0-0.5 [facility] Platelet mean volume Auto (B ld) [Entitic vol]Ordered By: Saqib Brantley on 10-22-2022 Platelet mean volume (Bld) [Entitic vol] 9.3 fL 6.6-10.1 [facility] Platelets Auto (Bld) [#/Vol] Ordered By: Saqib Brantley on 10-22-2022 Platelets (Bld) [#/Vol] 174 10*3/uL 150-450 [facility] Potassium [Moles/volume] in Serum or PlasmaOrdered By: Saqib Brantley on 10-22-2022 Potassium [Moles/Vol] 3.9 mmol/L 3.5-5.1 [facility] Protein [Mass/volume] in Ser um or PlasmaOrdered By: Saqib Brantley on 10-22-2022 Protein [Mass/Vol] 6.8 g/dL 6.4-8.9 [facility] RBC Auto (Bld) [#/Vol]Ordere d By: Saqib Brantley on 10-22-2022 RBC (Bld) [#/Vol] 5.32 10*6/uL 3.90-5.60 [facility] Serum or plasma albumin/glob ulin mass ratioOrdered By: Saqib Brantley on 10-22-2022 Albumin/Globulin [Mass ratio] 1.8 {ratio} [facility] Serum or plasma anion gap de terminationOrdered By: Saqib Brantley on 10-22-2022 Anion gap [Moles/Vol] 10.2 mmol/L 6.0-15.0 [facility] Serum or plasma creatine kin ase MB (CKMB)/total creatine kinase (CK) ratio by calculaOrdered By: Saqib Brantley on 10-22-2022 CK.MB Calc [Catalytic fraction] 0.9 % 0.00-2.50 [facility] Sodium [Moles/volume] in Ser um or PlasmaOrdered By: Saqib Brantley on 10-22-2022 Sodium [Moles/Vol] 138 mmol/L 136-145 [facility] Urea nitrogen [Mass/volume] in Serum or PlasmaOrdered By: Saqib Brantley on 10-22-2022 Urea nitrogen [Mass/Vol] 16 mg/dL 7-25 [facility] WBC Auto (Bld) [#/Vol]Ordere d By: Saqib Brantley on 10-22-2022 WBC (Bld) [#/Vol] 10.5 10*3/uL 4.1-10.5 [facility] Acetaminophen [Mass/volume] in Serum or PlasmaOrdered By: Mehdi Ornelas on 10-21-2022 Acetaminophen [Mass/Vol] 0.7 ug/mL 10.0-30.0 [facility] Alanine aminotransferase [En zymatic activity/volume] in Serum or PlasmaOrdered By: Mehdi Ornelas on 10-21-2022 ALT [Catalytic activity/Vol] 19 U/L 7-52 [facility] Albumin [Mass/volume] in Ser um or Plasma by Bromocresol green (BCG) dye binding methoOrdered By: Mehdi Ornelas on 10-21-2022 Albumin BCG dye [Mass/Vol] 4.9 g/dL 3.5-5.7 [facility] Alkaline phosphatase [Enzyma tic activity/volume] in Serum or PlasmaOrdered By: Mehdi Ornelas on 10-21-2022 ALP [Catalytic activity/Vol] 82 U/L 34-104 [facility] Amphetamine Screen Ql (U)Ord ered By: Mehdi Ornelas on 10-21-2022 Amphetamines Ql (U) Negative Negative [facility] Aspartate aminotransferase [ Enzymatic activity/volume] in Serum or PlasmaOrdered By: Mehdi Ornelas on 10-21-2022 AST [Catalytic activity/Vol] 19 U/L 13-39 [facility] Automated erythrocytes count in urine sediment (number/area)Ordered By: Mehdi Ornelas on 10-21-2022 RBC Auto (Urine sed) [#/Area] 0-1 [HPF] 0-4 [facility] Automated leukocytes count i n urine sediment (number/area)Ordered By: Mehdi Ornelas on 10-21-2022 WBC Auto (Urine sed) [#/Area] None seen [HPF] 0-4 [facility] Barbiturates [Presence] in U rine by Screen methodOrdered By: Mehdi Ornelas on 10-21-2022 Barbiturates Screen Ql (U) Negative Negative [facility] Basophils Auto (Bld) [#/Vol] Ordered By: Mehdi Ornelas on 10-21-2022 Basophils (Bld) [#/Vol] 0.0 10*3/uL 0.0-0.2 [facility] Basophils/100 WBC Auto (Bld) Ordered By: Mehdi Ornelas on 10-21-2022 Basophils/100 WBC (Bld) 0.3 % . [facility] Benzodiazepines Screen Ql (U )Ordered By: Mehdi Ornelas on 10-21-2022 Benzodiazepines Ql (U) Negative [facility] Benzoylecgonine [Presence] i n Urine by Screen methodOrdered By: Mehdi Ornelas on 10-21-2022 Benzoylecgonine Screen Ql (U) Negative Negative [facility] Bilirubin Test strip Ql (U)O rdered By: Mehdi Ornelas on 10-21-2022 Bilirubin Ql (U) Negative Negative [facility] Bilirubin.total [Mass/volume ] in Serum or PlasmaOrdered By: Mehdi Ornelas on 10-21-2022 Bilirubin [Mass/Vol] 0.4 mg/dL 0.3-1.0 [facility] Calcium [Mass/volume] in Ser um or PlasmaOrdered By: Mehdi Ornelas on 10-21-2022 Calcium [Mass/Vol] 9.9 mg/dL 8.6-10.3 [facility] Cannabinoids [Presence] in U rine by Screen methodOrdered By: Mehdi Ornelas on 10-21-2022 Cannabinoids Screen Ql (U) Negative Negative [facility] Comment on above: These are unconfirme d results and should not be used for legal purposes. Drug Cut-Off Concentration: AMPH 1000 ng/mL MACEY 200 ng/mL MAR 200 ng/mL COCM 300 ng/mL OP 300 ng/mL PCP 25 ng/mL THC 20 ng/mL Carbon dioxide, total [Moles /volume] in Serum or PlasmaOrdered By: Mehdi Ornelas on 10-21-2022 CO2 [Moles/Vol] 20.9 mmol/L 21.0-31.0 [facility] Chloride [Moles/volume] in S laura or PlasmaOrdered By: Mehdi Ornelas on 10-21-2022 Chloride [Moles/Vol] 103 mmol/L 98-107 [facility] Color Auto (U)Ordered By: Osmany Ornelas on 10-21-2022 Color (U) Yellow Yellow [facility] Creatinine [Mass/volume] in Serum or PlasmaOrdered By: Mehdi Ornelas on 10-21-2022 Creatinine [Mass/Vol] 1.15 mg/dL 0.70-1.30 [facility] Eosinophils Auto (Bld) [#/Vo l]Ordered By: Mehdi Ornelas on 10-21-2022 Eosinophils (Bld) [#/Vol] 0.0 10*3/uL 0.0-0.45 [facility] Eosinophils/100 WBC Auto (Bl d)Ordered By: Mehdi Ornelas on 10-21-2022 Eosinophils/100 WBC (Bld) 0.4 % . [facility] Erythrocyte distribution wid th Auto (RBC) [Ratio]Ordered By: Mehdi Ornelas on 10-21-2022 Erythrocyte distribution width (RBC) [Ratio] 13.7 % 12.0-14.8 [facility] Ethanol [Mass/volume] in Ser um or PlasmaOrdered By: Mehdi Ornelas on 10-21-2022 Ethanol [Mass/Vol] mg/dL [facility] Ethanol [Mass/Vol] TNP [facility] Comment on above: Test not performed Globulin Calc (S) [Mass/Vol] Ordered By: Mehdi Ornelas on 10-21-2022 Globulin (S) [Mass/Vol] 3.1 g/dL [facility] Glucose Glucometer (BldC) [M ass/Vol]Ordered By: Mehdi Orneals on 10-21-2022 Glucose [Mass/Vol] 105 mg/dL [facility] Comment on above: Random Glucose Refer ence Range is dependent on time and content of last meal. Glucose of more than 200 mg/dL in a nonstressed, ambulatory subject supports the diagnosis of Diabetes Mellitus. Glucose [Mass/volume] in Ser um or PlasmaOrdered By: Mehdi Ornelas on 10-21-2022 Glucose [Mass/Vol] 115 mg/dL 70-100 [facility] Comment on above: ADA recommended refe rence rangeRandom Glucose Reference Range is dependent on time and content of last meal. Glucose of more than 200 mg/dL in a nonstressed, ambulatory subject supports the diagnosis of Diabetes Mellitus. Hematocrit Auto (Bld) [Volum e fraction]Ordered By: Mehdi Ornelas on 10-21-2022 Hematocrit (Bld) [Volume fraction] 48.4 % 38.8-50.0 [facility] Hemoglobin [Mass/volume] in BloodOrdered By: Mehdi Ornelas on 10-21-2022 Hemoglobin (Bld) [Mass/Vol] 16.5 g/dL 13.0-17.0 [facility] Ketones Auto test strip (U) [Mass/Vol]Ordered By: Mehdi Ornelas on 10-21-2022 Ketones (U) [Mass/Vol] 1+ Negative [facility] - UrinalysisOrder ed By: Mehdi Ornelas on 10-21-2022 Hyaline casts LM Ql (Urine sed) None seen [LPF] 0-8 [facility] Leukocytes [#/volume] correc jayleen for nucleated erythrocytes in Blood by Automated counOrdered By: Mehdi Ornelas on 10-21-2022 WBC corrected for nucl RBC Auto (Bld) [#/Vol] 11.2 10*3/uL 4.1-10.5 [facility] Lymphocytes Auto (Bld) [#/Vo l]Ordered By: Mehdi Ornelas on 10-21-2022 Lymphocytes (Bld) [#/Vol] 1.6 10*3/uL 1.00-4.8 [facility] Lymphocytes/100 WBC Auto (Bl d)Ordered By: Mehdi Ornelas on 10-21-2022 Lymphocytes/100 WBC (Bld) 14.0 % . [facility] MCH Auto (RBC) [Entitic mass ]Ordered By: Mehdi Ornelas on 10-21-2022 MCH (RBC) [Entitic mass] 29.5 pg 27.5-35.2 [facility] MCHC Auto (RBC) [Mass/Vol]Or dered By: Mehdi Ornelas on 10-21-2022 MCHC (RBC) [Mass/Vol] 34.1 g/dL 32.5-35.6 [facility] MCV Auto (RBC) [Entitic vol] Ordered By: Mehdi Ornelas on 10-21-2022 MCV (RBC) [Entitic vol] 86.6 fL 83.5-101 [facility] Magnesium [Mass/volume] in S laura or PlasmaOrdered By: Mehdi Ornelas on 10-21-2022 Magnesium [Mass/Vol] 1.8 mg/dL 1.9-2.7 [facility] Monocyte distribution width [Entitic volume] in Blood by AutomatedOrdered By: Mehdi Ornelas on 10-21-2022 Monocyte distribution width Auto (Bld) [Entitic vol] 17.66 % 0.00-20.00 [facility] Monocytes Auto (Bld) [#/Vol] Ordered By: Mehdi Ornelas on 10-21-2022 Monocytes (Bld) [#/Vol] 0.7 10*3/uL 0.0-0.8 [facility] Monocytes/100 WBC Auto (Bld) Ordered By: Mehdi Ornelas on 10-21-2022 Monocytes/100 WBC (Bld) 6.1 % . [facility] Neutrophils Auto (Bld) [#/Vo l]Ordered By: Mehid Ornelas on 10-21-2022 Neutrophils (Bld) [#/Vol] 8.9 10*3/uL 1.8-7.7 [facility] Neutrophils/100 WBC Auto (Bl d)Ordered By: Mehdi Ornelas on 10-21-2022 Neutrophils/100 WBC (Bld) 79.2 % . [facility] Nitrite Test strip Ql (U)Ord ered By: Mehdi Ornelas on 10-21-2022 Nitrite Ql (U) Negative Negative [facility] No Panel InformationOrdered By: Mehdi Ornelas on 10-21-2022 Bedside Glucose Comment Glu2: cleaned meter [facility] Estimated GFR (CKD-EPI) > 60.0 mL/Min [facility] Creatinine Clearance (Chem 124.62 [facility] Nucleated erythrocytes [Pres ence] in Blood by Automated countOrdered By: Mehdi Ornelas on 10-21-2022 Nucleated RBC Auto Ql (Bld) 0.1 /100{WBC} 0-0.5 [facility] Opiates [Presence] in Urine by Screen methodOrdered By: Mehdi Ornelas on 10-21-2022 Opiates Screen Ql (U) Negative Negative [facility] Phencyclidine Screen Ql (U)O rdered By: Mehdi Ornelas on 10-21-2022 Phencyclidine Ql (U) Negative Negative [facility] Platelet mean volume Auto (B ld) [Entitic vol]Ordered By: Mehdi Ornelas on 10-21-2022 Platelet mean volume (Bld) [Entitic vol] 9.4 fL 6.6-10.1 [facility] Platelets Auto (Bld) [#/Vol] Ordered By: Mehdi Ornelas on 10-21-2022 Platelets (Bld) [#/Vol] 214 10*3/uL 150-450 [facility] Potassium [Moles/volume] in Serum or PlasmaOrdered By: Mehdi Ornelas on 10-21-2022 Potassium [Moles/Vol] 3.5 mmol/L 3.5-5.1 [facility] Protein Auto test strip (U) [Mass/Vol]Ordered By: Mehdi Ornelas on 10-21-2022 Protein (U) [Mass/Vol] Trace mg/dL Negative [facility] Protein [Mass/volume] in Ser um or PlasmaOrdered By: Mehdi Ornelas on 10-21-2022 Protein [Mass/Vol] 8.0 g/dL 6.4-8.9 [facility] RBC Auto (Bld) [#/Vol]Ordere d By: Mehdi Ornelas on 10-21-2022 RBC (Bld) [#/Vol] 5.59 10*6/uL 3.90-5.60 [facility] Salicylates [Mass/volume] in Serum or PlasmaOrdered By: Mehdi Ornelas 10-21-2022 Salicylates [Mass/Vol] mg/dL 15.0-30.0 [facility] Comment on above: Patients treated wit h Sulfasalazine may generate a false high result for Salicylate. Serum or plasma albumin/glob ulin mass ratioOrdered By: Mehdi Ornelas 10-21-2022 Albumin/Globulin [Mass ratio] 1.6 {ratio} [facility] Serum or plasma anion gap de terminationOrdered By: Mehdi Ornelas 10-21-2022 Anion gap [Moles/Vol] 16.6 mmol/L 6.0-15.0 [facility] Sodium [Moles/volume] in Ser um or PlasmaOrdered By: Mehdi Ornelas 10-21-2022 Sodium [Moles/Vol] 137 mmol/L 136-145 [facility] Specific gravity Auto test s trip (U) [Rel density]Ordered By: Mehdi Ornelas on 10-21-2022 Specific gravity (U) [Rel density] 1.023 1.001-1.030 [facility] Squamous epithelial cells de tection in urine sediment by light microscopyOrdered By: Mehdi Ornelas on 10-21-2022 Epithelial cells.squamous LM Ql (Urine sed) None seen [HPF] 0-2 [facility] Urea nitrogen [Mass/volume] in Serum or PlasmaOrdered By: Mehdi Ornelas on 10-21-2022 Urea nitrogen [Mass/Vol] 14 mg/dL 7-25 [facility] Urine bacteria detection by automated methodOrdered By: Mehdi Ornelas on 10-21-2022 Bacteria Auto Ql (U) None seen None Seen [facility] Urine clarity by refractomet ry automatedOrdered By: Mehdi Ornelas on 10-21-2022 Clarity Refractometry automated (U) Clear Clear [facility] Urine glucose measurement by automated test strip (mass/volume)Ordered By: Mehdi Ornelas on 10-21-2022 Glucose Auto test strip (U) [Mass/Vol] Normal mg/dL Normal [facility] Urine hemoglobin detection b y automated test stripOrdered By: Mehdi Ornelas on 10-21-2022 Hemoglobin Auto test strip Ql (U) Negative Negative [facility] Urine leukocyte esterase det ection by automated test stripOrdered By: Mehdi Ornelas on 10-21-2022 Leukocyte esterase Auto test strip Ql (U) Negative Negative [facility] Urobilinogen Auto test strip (U) [Mass/Vol]Ordered By: Mehdi Ornelas on 10-21-2022 Urobilinogen (U) [Mass/Vol] Normal mg/dL Normal [facility] WBC Auto (Bld) [#/Vol]Ordere d By: Mehdi Ornelas on 10-21-2022 WBC (Bld) [#/Vol] 11.2 10*3/uL 4.1-10.5 [facility] pH Auto test strip (U)Ordere d By: Mehdi Ornelas on 10-21-2022 pH (U) 8.5 [pH] 5.0-9.0 [facility] Alanine aminotransferase [En zymatic activity/volume] in Serum or PlasmaOrdered By: Nicole Jarrett on 10-13-2022 ALT [Catalytic activity/Vol] 20 U/L 7-52 [facility] Albumin [Mass/volume] in Ser um or Plasma by Bromocresol green (BCG) dye binding methoOrdered By: Nicole Jarrett on 10-13-2022 Albumin BCG dye [Mass/Vol] 4.7 g/dL 3.5-5.7 [facility] Alkaline phosphatase [Enzyma tic activity/volume] in Serum or PlasmaOrdered By: Nicole Jarrett on 10-13-2022 ALP [Catalytic activity/Vol] 82 U/L 34-104 [facility] Aspartate aminotransferase [ Enzymatic activity/volume] in Serum or PlasmaOrdered By: Nicole Jarrett on 10-13-2022 AST [Catalytic activity/Vol] 23 U/L 13-39 [facility] Basophils Auto (Bld) [#/Vol] Ordered By: Nicole Jarrett on 10-13-2022 Basophils (Bld) [#/Vol] 0.0 10*3/uL 0.0-0.2 [facility] Basophils/100 WBC Auto (Bld) Ordered By: Nicole Jarrett on 10-13-2022 Basophils/100 WBC (Bld) 0.3 % . [facility] Bilirubin.total [Mass/volume ] in Serum or PlasmaOrdered By: Nicole Jarrett on 10-13-2022 Bilirubin [Mass/Vol] 0.3 mg/dL 0.3-1.0 [facility] C reactive protein [Mass/vol ume] in Serum or PlasmaOrdered By: Nicole Jarrett on 10-13-2022 CRP [Mass/Vol] < 0.5 mg/dL 0.0-0.5 [facility] Calcium [Mass/volume] in Ser um or PlasmaOrdered By: Nicole Jarrett on 10-13-2022 Calcium [Mass/Vol] 9.3 mg/dL 8.6-10.3 [facility] Carbon dioxide, total [Moles /volume] in Serum or PlasmaOrdered By: Nicole Jarrett on 10-13-2022 CO2 [Moles/Vol] 26.3 mmol/L 21.0-31.0 [facility] Chloride [Moles/volume] in S laura or PlasmaOrdered By: Nicole Jarrett on 10-13-2022 Chloride [Moles/Vol] 105 mmol/L 98-107 [facility] Creatinine [Mass/volume] in Serum or PlasmaOrdered By: Nicole Jarrett on 10-13-2022 Creatinine [Mass/Vol] 1.03 mg/dL 0.70-1.30 [facility] Eosinophils Auto (Bld) [#/Vo l]Ordered By: Nicole Jarrett on 10-13-2022 Eosinophils (Bld) [#/Vol] 0.2 10*3/uL 0.0-0.45 [facility] Eosinophils/100 WBC Auto (Bl d)Ordered By: Nicole Jarrett on 10-13-2022 Eosinophils/100 WBC (Bld) 2.9 % . [facility] Erythrocyte distribution wid th Auto (RBC) [Ratio]Ordered By: Nicole Jarrett on 10-13-2022 Erythrocyte distribution width (RBC) [Ratio] 13.7 % 12.0-14.8 [facility] Globulin Calc (S) [Mass/Vol] Ordered By: Nicole Jarrett on 10-13-2022 Globulin (S) [Mass/Vol] 2.7 g/dL [facility] Glucose [Mass/volume] in Ser um or PlasmaOrdered By: Nicole Jarrett on 10-13-2022 Glucose [Mass/Vol] 88 mg/dL 70-100 [facility] Comment on above: ADA recommended refe [...] p24 Ag IA Ql Non-Reactive Non Reactive [facility] Comment on above: HIV NegativeHIV-1/HI V-2 antibodies and HIV-1 p24 antigen were NOTdetected. There is no laboratory evidence of HIV infection.Performed at: [facility] [address] [id number] Director: Ricardo Osorio PhD, Phone: [phone] Hematocrit Auto (Bld) [Volum e fraction]Ordered By: Nicole Jarrett on 10-13-2022 Hematocrit (Bld) [Volume fraction] 46.4 % 38.8-50.0 [facility] Hemoglobin [Mass/volume] in BloodOrdered By: Nicole Jarrett on 10-13-2022 Hemoglobin (Bld) [Mass/Vol] 15.9 g/dL 13.0-17.0 [facility] Hepatitis A virus Ab [Presen ce] in Serum by ImmunoassayOrdered By: Nicole Jarrett on 10-13-2022 HAV Ab IA Ql (S) Positive Negative [facility] Comment on above: Performed at: [facility] [address] [id number] Director: Ricardo Osorio PhD, Phone: [phone] Hepatitis B virus surface Ag [Presence] in Serum or Plasma by ImmunoassayOrdered By: Nicole Jarrett on 10-13-2022 HBV surface Ag IA Ql Negative Negative [facility] Hepatitis C virus IgG Ab [Pr esence] in Serum or Plasma by ImmunoassayOrdered By: Nicole Jarrett on 10-13-2022 HCV IgG IA Ql Non-Reactive Non Reactive [facility] Leukocytes [#/volume] correc jayleen for nucleated erythrocytes in Blood by Automated counOrdered By: Nicole Jarrett on 10-13-2022 WBC corrected for nucl RBC Auto (Bld) [#/Vol] 8.0 10*3/uL 4.1-10.5 [facility] Lymphocytes Auto (Bld) [#/Vo l]Ordered By: Nicole Jarrett on 10-13-2022 Lymphocytes (Bld) [#/Vol] 1.7 10*3/uL 1.00-4.8 [facility] Lymphocytes/100 WBC Auto (Bl d)Ordered By: Nicole Jarrett on 10-13-2022 Lymphocytes/100 WBC (Bld) 21.3 % . [facility] MCH Auto (RBC) [Entitic mass ]Ordered By: Nicole Jarrett on 10-13-2022 MCH (RBC) [Entitic mass] 30.0 pg 27.5-35.2 [facility] MCHC Auto (RBC) [Mass/Vol]Or dered By: Nicole Jarrett on 10-13-2022 MCHC (RBC) [Mass/Vol] 34.4 g/dL 32.5-35.6 [facility] MCV Auto (RBC) [Entitic vol] Ordered By: Nicole Jarrett on 10-13-2022 MCV (RBC) [Entitic vol] 87.2 fL 83.5-101 [facility] Monocytes Auto (Bld) [#/Vol] Ordered By: Nicole Jarrett on 10-13-2022 Monocytes (Bld) [#/Vol] 0.6 10*3/uL 0.0-0.8 [facility] Monocytes/100 WBC Auto (Bld) Ordered By: Nicole Jarrett on 10-13-2022 Monocytes/100 WBC (Bld) 7.1 % . [facility] Neutrophils Auto (Bld) [#/Vo l]Ordered By: Nicole Jarrett on 10-13-2022 Neutrophils (Bld) [#/Vol] 5.5 10*3/uL 1.8-7.7 [facility] Neutrophils/100 WBC Auto (Bl d)Ordered By: Nicole Jarrett on 10-13-2022 Neutrophils/100 WBC (Bld) 68.4 % . [facility] No Panel InformationOrdered By: Nicole Jarrett on 10-13-2022 Estimated GFR (CKD-EPI) > 60.0 mL/Min [facility] Hepatitis B Core Total Antibody Negative Negative [facility] Hepatitis C Interpretation See comment . [facility] Comment on above: Not infected with HC V unless early or acute infection issuspected (which may be delayed in an immunocompromisedindividual), or other evidence exists to indicate HCVinfection. Hepatitis C RNA Quantitative N/A [facility] Creatinine Clearance (Chem N/A [facility] Nucleated erythrocytes [Pres ence] in Blood by Automated countOrdered By: Nicole Jarrett on 10-13-2022 Nucleated RBC Auto Ql (Bld) 0.1 /100{WBC} 0-0.5 [facility] Platelet mean volume Auto (B ld) [Entitic vol]Ordered By: Nicole Jarrett on 10-13-2022 Platelet mean volume (Bld) [Entitic vol] 9.0 fL 6.6-10.1 [facility] Platelets Auto (Bld) [#/Vol] Ordered By: Nicole Jarrett on 10-13-2022 Platelets (Bld) [#/Vol] 215 10*3/uL 150-450 [facility] Potassium [Moles/volume] in Serum or PlasmaOrdered By: Nicole Jarrett on 10-13-2022 Potassium [Moles/Vol] 4.4 mmol/L 3.5-5.1 [facility] Protein [Mass/volume] in Ser um or PlasmaOrdered By: Nicole Jarrett on 10-13-2022 Protein [Mass/Vol] 7.4 g/dL 6.4-8.9 [facility] RBC Auto (Bld) [#/Vol]Ordere d By: Nicole Jarrett on 10-13-2022 RBC (Bld) [#/Vol] 5.32 10*6/uL 3.90-5.60 [facility] Reagin Ab [Presence] in Seru m by RPROrdered By: Nicole Jarrett on 10-13-2022 Reagin Ab RPR Ql (S) Non-Reactive Non Reactive [facility] Comment on above: Performed at: [address] [id number] Director: Ricardo Osorio PhD, Phone: [phone] Serum hepatitis B virus surf nettie antibody detectionOrdered By: Nicole Jarrett on 10-13-2022 HBV surface Ab Ql (S) Non-Reactive . [facility] Comment on above: Non Reactive: Incons istent with immunity, less than 10 mIU/mL Reactive: Consistent with immunity, greater than 9.9 mIU/mL Serum or plasma albumin/glob ulin mass ratioOrdered By: Nicole Jarrett on 10-13-2022 Albumin/Globulin [Mass ratio] 1.7 {ratio} [facility] Serum or plasma anion gap de terminationOrdered By: Nicole Jarrett on 10-13-2022 Anion gap [Moles/Vol] 13.1 mmol/L 6.0-15.0 [facility] Sodium [Moles/volume] in Ser um or PlasmaOrdered By: Nicole Jarrett on 10-13-2022 Sodium [Moles/Vol] 140 mmol/L 136-145 [facility] Thyrotropin [Units/volume] i n Serum or PlasmaOrdered By: Nicole Jarrett on 10-13-2022 TSH Qn 1.31 m[IU]/L 0.45-5.33 [facility] Urea nitrogen [Mass/volume] in Serum or PlasmaOrdered By: Nicole Jarrett on 10-13-2022 Urea nitrogen [Mass/Vol] 14 mg/dL 7-25 [facility] Vitamin D+Metabolites [Mass/ volume] in Serum or PlasmaOrdered By: Nicole Jarrett on 10-13-2022 Vitamin D+Metabolites [Mass/Vol] 32.5 ng/mL 30-100 [facility] Comment on above: VITAMIN D STATUS 25( [place])VITAMIN D RANGE (ng/mL) Deficient <20 Insufficient 20 to <30Sufficient 30 to 100Reference: Jose MF,Serenity NC, Jc HARRELL, et al. Evaluation,treatment, and prevention of vitamin D deficiency; an Endocrine Society clinical practice guideline. JCEM. 2010; 96(7):1911-30. WBC Auto (Bld) [#/Vol]Ordere d By: Nicole Jarrett on 10-13-2022 WBC (Bld) [#/Vol] 8.0 10*3/uL 4.1-10.5 [facility] ALCOHOL (ETHYL)on 04-25-2022 ALCOHOL (ETHYL) Normal 0-0.010 [facility] [place] Comment on above: Result Comment: <0.0 10 Performed at [address] [address] Performed By: #### E BENNETT #### Main Laboratory [address] [place] [address] CBC with Diffon 04-25-2022 AB IMMATURE NEUT 0.01 K/UL Normal 0.0-0.1 [facility] Comment on above: Performed By: #### C BCD #### [facility] [address] [place] [address] ABS BASO 0.02 K/UL Normal 0.00-0.22 [facility] Comment on above: Performed By: #### C BCD #### [facility] [place] [address] [place] [address] ABS EOS 0.14 K/UL Normal 0-0.45 [facility] Comment on above: Performed By: #### C BCD #### [facility] [place] [address] [place] [address] ABS NEUTROPHILS 4.33 K/UL Normal 1.5-8.0 [facility] [place] Comment on above: Performed By: #### C BCD #### [facility] [place] [address] [place] [address] ABS.NEUT.CALCULATED 4.33 K/UL Normal [facility] Comment on above: Result Comment: Perf ormed at [address] [address] Performed By: #### C BCD #### [place] [address] [place] [address] Basophils/100 WBC (Bld) 0.30 % Normal 0-1 [facility] Comment on above: Performed By: #### C BCD #### [place] [address] [place] [address] DIFF TYPE AUTO DIFF Normal [facility] Comment on above: Performed By: #### C BCD #### [facility] [place] [address] [place] [address] Eosinophils/100 WBC (Bld) 2.20 % Normal 0-3 [facility] Comment on above: Performed By: #### C BCD #### [facility] [place] [address] [place] [address] Erythrocyte distribution width (RBC) [Ratio] 12.8 % Normal 11.7-15.0 [facility] Comment on above: Performed By: #### C BCD #### [facility] [address] [place] [address] Hematocrit (Bld) [Volume fraction] 50.6 % High 41-50 [facility] Comment on above: Performed By: #### C BCD #### [place] [address] [place] [address] Hemoglobin (Bld) [Mass/Vol] 16.9 g/dL High 13.5-16.5 [facility] Comment on above: Performed By: #### C BCD #### [place] [address] [place] [address] Lymphocytes (Bld) [#/Vol] 1.42 10*3/uL Normal 1.2-3.2 [facility] Comment on above: Performed By: #### C BCD #### [place] [address] [place] [address] Lymphocytes/100 WBC (Bld) 22.50 % Normal 20-40 [facility] Comment on above: Performed By: #### C BCD #### [place] [address] [place] [address] MCH (RBC) [Entitic mass] 29.0 pg Normal 26-34 [facility] Comment on above: Performed By: #### C BCD #### [place] [address] [place] [address] MCHC 33.4 % Normal 31-37 [facility] Comment on above: Performed By: #### C BCD #### [place] [address] [place] [address] MCV (RBC) [Entitic vol] 86.8 fL Normal 80-100 L [facility] Comment on above: Performed By: #### C BCD #### [facility] [place] [address] [place] [address] MEAN PLT VOL 10.9 CU Normal 7.0-12.6 [facility] Comment on above: Performed By: #### C BCD #### [place] [address] [place] [address] Monocytes (Bld) [#/Vol] 0.39 10*3/uL Normal 0-0.8 [facility] Comment on above: Performed By: #### C BCD #### [facility] [address] [place] [address] Monocytes/100 WBC (Bld) 6.20 % Normal 0-8 L [facility] Comment on above: Performed By: #### C BCD #### [facility] [address] [place] [address] Neutrophils/100 WBC (Bld) 0.20 % Normal 0.0-1.0 [facility] Comment on above: Performed By: #### C BCD #### [facility] [address] [place] [address] Neutrophils/100 WBC (Bld) 68.60 % Normal 50-70 [facility] Comment on above: Performed By: #### C BCD #### [facility] [address] [address] NRBC'S 0 /100 WBC Normal 0 [facility] Comment on above: Performed By: #### C BCD #### [facility] [address] [place] [address] Platelets (Bld) [#/Vol] 223 10*3/uL Normal 150-450 [facility] Comment on above: Performed By: #### C BCD #### [place] [address] [place] [address] RBC (Bld) [#/Vol] 5.83 10*6/uL High 4.5-5.5 [facility] Comment on above: Performed By: #### C BCD #### [facility] [address] [address] RDW-SD 40.3 FL Normal 37.0-54.0 [facility] Comment on above: Performed By: #### C BCD #### [facility] [address] [place] [address] WBC (Bld) [#/Vol] 6.3 10*3/uL Normal 4.5-11.0 [facility] Comment on above: Performed By: #### C BCD #### [facility] [place] [id number] [place] [address] COMPREHENSIVE METABOLIC PANE Aleks 04-25-2022 Albumin [Mass/Vol] 4.5 g/dL Normal 3.5-5.0 [facility] Comment on above: Performed By: #### C SIDE SEAM ENVELOPE MACHINE OPERATOR #### [facility] [place] [address] [place] [address] Albumin/Globulin [Mass ratio] 1.7 {ratio} Normal 1.5-3.0 [facility] Comment on above: Performed By: #### C SIDE SEAM ENVELOPE MACHINE OPERATOR #### [facility] [place] [address] [place] [address] ALP [Catalytic activity/Vol] 106 U/L Normal 35-125 [facility] Comment on above: Performed By: #### C SIDE SEAM ENVELOPE MACHINE OPERATOR #### [facility] [place] [address] [place] [address] ALT [Catalytic activity/Vol] 16 U/L Normal 5-40 [facility] Comment on above: Performed By: #### C SIDE SEAM ENVELOPE MACHINE OPERATOR #### [facility] [place] [address] [place] [address] Anion gap [Moles/Vol] 10 mmol/L Normal 0-19 [facility] Comment on above: Performed By: #### C SIDE SEAM ENVELOPE MACHINE OPERATOR #### [facility] [place] [address] [place] [address] AST [Catalytic activity/Vol] 16 U/L Normal 5-40 [facility] Comment on above: Performed By: #### C SIDE SEAM ENVELOPE MACHINE OPERATOR #### [facility] [place] [address] [place] [address] Bilirubin [Mass/Vol] 0.3 mg/dL Normal 0.1-1.2 [facility] Comment on above: Performed By: #### C SIDE SEAM ENVELOPE MACHINE OPERATOR #### [facility] [place] [address] [place] [address] Calcium [Mass/Vol] 9.8 mg/dL Normal 8.5-10.4 [facility] Comment on above: Performed By: #### C SIDE SEAM ENVELOPE MACHINE OPERATOR #### [facility] [place] [address] [place] [address] Chloride [Moles/Vol] 103 mmol/L Normal 97-107 [facility] Comment on above: Performed By: #### C SIDE SEAM ENVELOPE MACHINE OPERATOR #### [facility] [address] [place] [address] CO2 [Moles/Vol] 28 mmol/L Normal 24-31 [facility] [place] Comment on above: Performed By: #### C SIDE SEAM ENVELOPE MACHINE OPERATOR #### [facility] [address] [address] Creatinine [Mass/Vol] 1.1 mg/dL Normal 0.4-1.6 [facility] Comment on above: Performed By: #### C SIDE SEAM ENVELOPE MACHINE OPERATOR #### [facility] [place] [address] [place] [address] ESTIMATED GFR 100 mL/min/1.73 m2 Normal [facility] Comment on above: Result Comment: Perf ormed at [place] [address] [place] [place] [address] Performed By: #### C SIDE SEAM ENVELOPE MACHINE OPERATOR #### [place] [address] [place] [address] Globulin (S) [Mass/Vol] 2.6 g/dL Normal 1.9-3.7 [facility] Comment on above: Performed By: #### C SIDE SEAM ENVELOPE MACHINE OPERATOR #### [facility] [place] [address] [address] Glucose [Mass/Vol] 111 mg/dL High 65-99 [facility] Comment on above: Performed By: #### C SIDE SEAM ENVELOPE MACHINE OPERATOR #### [place] [address] [address] Potassium [Moles/Vol] 3.9 mmol/L Normal 3.4-5.1 [facility] Comment on above: Performed By: #### C SIDE SEAM ENVELOPE MACHINE OPERATOR #### [facility] [place] [address] [place] [place] [address] Protein [Mass/Vol] 7.1 g/dL Normal 5.9-7.9 [facility] Comment on above: Performed By: #### C SIDE SEAM ENVELOPE MACHINE OPERATOR #### [facility] [place] [address] [place] [address] Sodium [Moles/Vol] 141 mmol/L Normal 133-145 [facility] Comment on above: Performed By: #### C SIDE SEAM ENVELOPE MACHINE OPERATOR #### [facility] [address] [place] [address] Urea nitrogen [Mass/Vol] 15 mg/dL Normal 8-25 [facility] Comment on above: Performed By: #### C SIDE SEAM ENVELOPE MACHINE OPERATOR #### [facility] [id number] [place] [address] Urea nitrogen/Creatinine [Mass ratio] 13.6 mg/mg Normal 8-21 [facility] Comment on above: Performed By: #### C SIDE SEAM ENVELOPE MACHINE OPERATOR #### [address] [address] EKGon 04-25-2022 Electrocardiogram EKG Ventricular Rate : 112 BPM Atrial Rate : 112 BPM P-R Interval : 134 ms QRS Duration : 78 ms Q-T Interval : 302 ms QTC Calculation(Bazett) : 412 ms Calculated P [place] : 81 degrees Calculated R [place] : 103 degrees Calculated T [place] : 73 degrees Diagnosis:Sinus tachycardia Biatrial enlargement Rightward axis Pulmonary disease pattern RSR' or QR pattern in V1 suggests right ventricular conduction delay ST elevation, consider early repolarization, pericarditis, or injury Abnormal ECG When compared with ECG of 26-MAR-2020 23:11, Vent. rate has increased BY 52 BPM Confirmed by ENZO NAM ([id number]) on 04/30/2022 12:14:14 PM Normal [facility] Laboratoryon 04-25-2022 Drug screen comment (U) [Interp] [...] OXYCODONE 100 ng/ml (Reference Range: not available) [facility] - Chemistry and C hemistry - challengeon 04-25-2022 Albumin [Mass/Vol] Albumin 4.5 GM/DL (3.5-5.0 GM/DL) 3.5 - 5.0 GM/DL [facility] Albumin/Globulin [Mass ratio] Albumin Globulin Ratio 1.7 RATIO (1.5-3.0 RATIO) 1.5 - 3.0 RATIO [facility] [place] ALP (Bld) [Catalytic activity/Vol] Alk Phosphatase 106 U/L (35-125 U/L) 35 - 125 U/L [facility] [place] ALT [Catalytic activity/Vol] ALT 16 U/L (5-40 U/L) 5 - 40 U/L [facility] [place] Anion gap [Moles/Vol] Anion Gap 10 MMOL/ L (0-19 MMOL/L) 0 - 19 MMOL/L [facility] [place] AST [Catalytic activity/Vol] AST 16 U/L (5-40 U/L) 5 - 40 U/L [facility] [place] Bilirubin [Mass/Vol] Total Bilirubin 0.3 MG/DL (0.1-1.2 MG/DL) 0.1 - 1.2 MG/DL [facility] [place] Calcium [Mass/Vol] Calcium 9.8 MG/DL (8.5-10.4 MG/DL) 8.5 - 10.4 MG/DL [facility] [place] Chloride [Moles/Vol] Chloride 103 MMOL/L (97-107 MMOL/L) 97 - 107 MMOL/L [facility] [place] CO2 [Moles/Vol] Carbon Dioxide 28 MMOL/L (24-31 MMOL/L) 24 - 31 MMOL/L [facility] [place] Creatinine [Mass/Vol] Creatinine R 1.1 MG/DL (0.4-1.6 MG/DL) 0.4 - 1.6 MG/DL [facility] GFR/1.73 sq M.predicted MDRD (S/P/Bld) [Vol rate/Area] EGFR 100 mL/min/1.73 m2 (Reference Range: not available) Performed at [facility] [id number] [place] [id number] [place] Globulin (S) [Mass/Vol] Globulin 2.6 G/D L (1.9-3.7 G/DL) 1.9 - 3.7 G/DL [facility] [place] Glucose [Mass/Vol] Glucose 111 MG/DL H (65-99 MG/DL) High 65 - 99 MG/DL [facility] [place] Potassium [Moles/Vol] Potassium R 3.9 MMOL/L (3.4-5.1 MMOL/L) 3.4 - 5.1 MMOL/L [facility] [place] Protein [Mass/Vol] Total Protein 7.1 G/DL (5.9-7.9 G/DL) 5.9 - 7.9 G/DL [facility] [place] Sodium [Moles/Vol] Sodium 141 MMOL/L (133-145 MMOL/L) 133 - 145 MMOL/L [facility] [place] Urea nitrogen [Mass/Vol] BUN 15 MG/DL (8-25 MG/DL) 8 - 25 MG/DL [facility] [place] Urea nitrogen/Creatinine [Mass ratio] BUN Creatinine Ratio 13.6 RATIO (8-21 RATIO) 8 - 21 RATIO [facility] - Drug toxicology on 04-25-2022 Amphetamines Screen method >1000 ng/mL Ql (U) Urine Amphetamine NEGATIVE (Reference Range: not available) [facility] Barbiturates Screen method >300 ng/mL Ql (U) Urine Barbiturate NEGATIVE (Reference Range: not available) [facility] Benzodiazepines Screen method >300 ng/mL Ql (U) Urine Benzodiazepine NEGATIVE (Reference Range: not available) [facility] Benzoylecgonine Screen method >300 ng/mL Ql (U) Urine Cocaine Metabolites NEGATIVE (Reference Range: not available) [facility] Cannabinoids Screen method >50 ng/mL Ql (U) THC/Cannabinoids NEGATIVE (Reference Range: not available) [facility] Ethanol [Mass/Vol] Alcohol <0.010 Performed at [address] [address] GM/DL (0-0.010 GM/DL) 0 - 0.010 GM/DL [facility] Methadone Ql (U) Urine Methadone NEGATIVE (Reference Range: not available) [facility] Opiates Screen method >300 ng/mL Ql (U) Urine Opiate NEGATIVE (Reference Range: not available) [facility] oxyCODONE Ql (U) Urine Oxycodone NEGATIVE Performed at [address] [address] (Reference Range: not available) [facility] Phencyclidine Screen method >25 ng/mL Ql (U) Urine PCP NEGATIVE (Reference Range: not available) [facility] - Hematology and Cell countson 04-25-2022 Basophils (Bld) [#/Vol] Abs Baso 0.02 K/ UL (0.00-0.22 K/UL) 0.00 - 0.22 K/UL [facility] [place] Basophils/100 WBC (Bld) Basophil 0.30 % (0-1 %) 0 - 1 % [facility] Differential cell count method Nom (Bld) Diff Type AUTO DIFF (Reference Range: not available) [facility] Eosinophils (Bld) [#/Vol] Abs Eos 0.14 K/UL (0-0.45 K/UL) 0 - 0.45 K/UL [facility] Eosinophils/100 WBC (Bld) Eosinophil 2.20 % (0-3 %) 0 - 3 % [facility] Erythrocyte distribution width (RBC) [Entitic vol] RDW SD 40.3 FL (37.0-54.0 FL) 37.0 - 54.0 FL [facility] Erythrocyte distribution width (RBC) [Ratio] RDW CV 12.8 % (11.7-15.0 %) 11.7 - 15.0 % [facility] Hematocrit (Bld) [Volume fraction] HCT 50.6 % H (41-50 %) High 41 - 50 % [facility] Hemoglobin (Bld) [Mass/Vol] HGB 16.9 GM/DL H (13.5-16.5 GM/DL) High 13.5 - 16.5 GM/DL [facility] Immature granulocytes (Bld) [#/Vol] Abs Imm Neut 0.01 K/UL (0.0-0.1 K/UL) 0.0 - 0.1 K/UL [facility] Lymphocytes (Bld) [#/Vol] Abs Lymph 1.42 K/UL (1.2-3.2 K/UL) 1.2 - 3.2 K/UL [facility] Lymphocytes/100 WBC (Bld) Lymphocyte 22.50 % (20-40 %) 20 - 40 % [facility] [place] MCH (RBC) [Entitic mass] MCH 29.0 PG (26-34 PG) 26 - 34 PG [facility] [place] MCHC (RBC) [Mass/Vol] MCHC 33.4 % (31-37 %) 31 - 37 % [facility] [place] MCV (RBC) [Entitic vol] MCV 86.8 FL (80- 100 FL) 80 - 100 FL [facility] [place] Monocytes (Bld) [#/Vol] Abs [place] 0.39 K/ UL (0-0.8 K/UL) 0 - 0.8 K/UL [facility] [place] Monocytes/100 WBC (Bld) Monocyte 6.20 % (0-8 %) 0 - 8 % [facility] [place] Neutrophils (Bld) [#/Vol] Abs.Neut.Calculated 4.33 K/UL (Reference Range: not available) Performed at [address] [address] [facility] [place] Neutrophils (Bld) [#/Vol] Abs Neut 4.33 K/UL (1.5-8.0 K/UL) 1.5 - 8.0 K/UL [facility] [place] Neutrophils.immature/10 0 WBC (Bld) Immature Neut % 0.20 % (0.0-1.0 %) 0.0 - 1.0 % [facility] [place] Nucleated RBC/100 WBC (Bld) [Ratio] NRBCs 0 /100 WBC (0 /100 WBC) [facility] [place] Platelet mean volume (Bld) [Entitic vol] MPV 10.9 CU (7.0-12.6 CU) 7.0 - 12.6 CU [facility] [place] Platelets (Bld) [#/Vol] PLT 223 K/UL (150-450 K/UL) 150 - 450 K/UL [facility] [place] RBC (Bld) [#/Vol] RBC 5.83 M/UL H (4.5-5.5 M/UL) High 4.5 - 5.5 M/UL [facility] [place] Segmented neutrophils/100 WBC (Bld) Granulocyte 68.60 % (50-70 %) 50 - 70 % [facility] [place] WBC (Bld) [#/Vol] WBC 6.3 K/UL (4.5-11.0 K/UL) 4.5 - 11.0 K/UL [facility] [place] [facility] - Microbiology an d Antimicrobial susceptibilityon 04-25-2022 FLUAV RNA JERRELL+probe Ql (Nph) FLU A by PCR NEGATIVE (Reference Range: not available) [facility] FLUBV RNA JERRELL+probe Ql (Nph) FLU B by PCR NEGATIVE (Reference Range: not available) [facility] SARS-CoV-2 (COVID-19) RNA JERRELL+probe Ql (Unsp spec) SARS-CoV-2 by PCR NEGATIVE (NEG ) [facility] SARS-CoV-2,INFLUENZA A/B NUC LEIC ACID TESTon 04-25-2022 EUA DISCLAIMER [facility] Comment on above: Result Comment: This test [...] is terminated or revoked sooner. Performed at [place] [address] Performed By: #### F LUCOV #### [place] [address] FLU A by PCR Negative [facility] Comment on above: Performed By: #### F LUCOV #### [facility] [place] [address] FLU B by PCR Negative [facility] Comment on above: Performed By: #### F LUCOV #### [facility] [place] [address] SARS-CoV-2 (COVID-19) RNA JERRELL+probe Ql (Unsp spec) Negative [facility] Comment on above: Performed By: #### F LUCOV #### [facility] [place] [address] URINE DRUG SCREENon 04-25-20 AMPHETAMINE/ECSTASY Negative [facility] Comment on above: Performed By: #### U DS #### [facility] [address] [facility] [place] [address] BARBITURATE Negative [facility] Comment on above: Performed By: #### U DS #### [facility] [address] [facility] [address] BENZODIAZEPINE Negative [facility] Comment on above: Performed By: #### U DS #### [facility] [address] [facility] [place] [address] COCAINE METABOLITES Negative [facility] Comment on above: Performed By: #### U DS #### [facility] [address] [place] [address] METHADONE Negative [facility] Comment on above: Performed By: #### U DS #### [facility] [address] [place] [address] [place] [address] OPIATE Negative [facility] Comment on above: Performed By: #### U DS #### [facility] [address] [facility] [place] [address] OXYCODONE [facility] Comment on above: Result Comment: NEGA TIVE Performed at [facility] [address] [place] [address] [place] [address] Performed By: #### U DS #### [facility] [address] [facility] [address] PCP Negative [facility] Comment on above: Performed By: #### U DS #### [facility] [address] [place] [address] THC/CANNABINOIDS Negative [facility] Comment on above: Performed By: #### U DS #### [facility] [address] [place] [address] COMMENT [facility] Comment on above: Result Comment: Thes [...] 100 ng/ml Performed By: #### U #### [facility] [address] [place] [address] Blood Pressure Cuff Sizeon 0 11-05-2021 Fall risk assessment a) No falls within the last year [facility] Work Phone: Tobacco use status [facility] b) No M [facility] Work Phone: Blood Pressure Cuff Size Adult [facility] Work Phone: CNOVon 08-25-2021 CNOV Office Visit (PERHMT) BRIICAMERON ([id number]) 1 M Date Time Provider Department 08/25/21 11:30 AM ALEKSANDRA ROSSWV During your visit today, we recorded the following information about you: Temperature Pulse Respiration Blood pressure 99.2 degrees 87/minute 18/minute 120/68 Weight Height 84.6 kg 1.965 m Aleksandra Ross MD 08/30/2021 8:58 PM Signed PEDIATRIC RHEUMATOLOGY FOLLOW UP PROGRESS NOTE PRIMARY CARE PHYSICIAN: Jaxson Starks, DO It was my pleasure seeing Cameron [...] or tonsill (more content not included)... Normal [facility] KIM by IFA w/Reflexon 2021 KIM Pattern Negative Normal [facility] Comment on above: Performed By: #### W SR, TSH, CBCDIF, FT4, CMP #### [facility] [address] [place], [place] [address] KIM Titer Negative Normal Negative [facility] Comment on above: Result Comment: Norm al range : negative at <1:80 serum dilution. Performed By: #### W SR, TSH, CBCDIF, FT4, CMP #### [facility] [address] [place], [place] [address] Nuclear Ab IF (S) [Titer] Negative Normal Negative [facility] Comment on above: Result Comment: Norm al range : negative at <1:80 serum dilution. Approximately 6% of patients with connective tissue diseases with low positive EIA values are negative by IFA. Recommend follow-up with specific antinuclear antibodies if clinically indicated. Test performed using Indirect Fluorescence Immunoassay technology (IFA) using HEp-2 cells. Performed By: #### W SR, TSH, CBCDIF, FT4, CMP #### [place] [address] [place], [place] [address] Anti-Neutro.Cyto.Abon 2021 ANCA Interpretation Equivocal staining seen on the ethanol (indirect immunofluorescence screen) slide but negative results on the follow up confirmatory testing. Anti-nuclear antibody test may be considered. Clinical correlation is required. Normal [facility] Comment on above: Performed By: #### W SR, TSH, CBCDIF, FT4, CMP #### [facility] [address] [place], [place] [address] C-ANCA Fluorescence Negative Normal Negative [facility] Comment on above: Performed By: #### W SR, TSH, CBCDIF, FT4, CMP #### [facility] [address] [place], [place] [address] Myeloperoxidase Ab <0.2 Normal <1.0 [facility] Comment on above: Performed By: #### W SR, TSH, CBCDIF, FT4, CMP #### [facility] [address] [place], [place] [address] P-ANCA Fluorescence Negative Normal Negative [facility] Comment on above: Performed By: #### W SR, TSH, CBCDIF, FT4, CMP #### [place] [address] [place] [address] Proteinase-3 Ab <0.2 Normal <1.0 [facility] Comment on above: Performed By: #### W SR, TSH, CBCDIF, FT4, CMP #### [place] [address] Staff Review Reviewed by Ricardo Burdick M.D., Ph.D ([id number]) Normal [facility] Comment on above: Performed By: #### W SR, TSH, CBCDIF, FT4, CMP #### [place] [address] C-Reactive Proteinon 022 CRP [Mass/Vol] mg/L Normal <0.9 [facility] Comment on above: Performed By: #### W SR, TSH, CBCDIF, FT4, CMP #### [place] [address] CANCA Reflexon 07-28-2021 CANCA Reflex Billed for services performed [facility] Comment on above: Performed By: #### W SR, TSH, CBCDIF, FT4, CMP #### [place] [id number] CNOVon 07-28-2021 CNOV Office Visit (PERHWV) CAMERON TERESA ([id number]) 1 M Date Time Provider Department 07/28/21 10:00 AM ALEKSANDRA ROSS During your visit today, we recorded the following information about you: Temperature Pulse Respiration Blood pressure 98.5 degrees 90/minute 18/minute 110/62 Weight Height 83.9 kg 1.956 m Aleksandra Ross MD 08/02/2021 9:41 PM Signed INITIAL OUTPATIENT VISIT PEDIATRIC RHEUMATOLOGY SERVICE DATE: 07/28/2021 REFERRING PHYSICIAN: Jaxson Starks [address] [place] [address] PRIMARY CARE PHYSICIAN: Jaxson Starks DO ACCOMPANIED [...] capsule T (more content not included)... Normal [facility] PANCA Reflexon 02-01-2022 PANCA Reflex Billed for services performed Normal [facility] Comment on above: Performed By: #### W SR, TSH, CBCDIF, FT4, CMP #### [place] [address] CBC and Differentialon 07-08 Abs Baso <0.03 Normal <0.11 [facility] Comment on above: Performed By: #### W SR, TSH, CBCDIF, FT4, CMP #### [place] [address] Abs Hampton 0.59 k/uL Normal <0.87 [facility] Comment on above: Performed By: #### W SR, TSH, CBCDIF, FT4, CMP #### [place] [address] Abs Neut 2.87 k/uL Normal 1.45-7.50 [facility] Comment on above: Performed By: #### W SR, TSH, CBCDIF, FT4, CMP #### [place] [address] Absolute nRBC <0.01 Normal <0.01 [facility] Comment on above: Performed By: #### W SR, TSH, CBCDIF, FT4, CMP #### [place] [address] [place] [phone] Basophils/100 WBC (Bld) 0.4 % Normal C [facility] Comment on above: Performed By: #### W SR, TSH, CBCDIF, FT4, CMP #### [place] [address] [place] [address] DTYPE Auto Diff Normal [facility] Comment on above: Performed By: #### W SR, TSH, CBCDIF, FT4, CMP #### [place] [phone] Eosinophils (Bld) [#/Vol] 0.08 10*3/uL Normal <0.46 [facility] Comment on above: Performed By: #### W SR, TSH, CBCDIF, FT4, CMP #### [place] [address] [place] [address] Eosinophils/100 WBC (Bld) 1.5 % Normal [facility] Comment on above: Performed By: #### W SR, TSH, CBCDIF, FT4, CMP #### [place] [address] Erythrocyte distribution width (RBC) [Ratio] 12.9 % Normal 11.5-15.0 [facility] Comment on above: Performed By: #### W SR, TSH, CBCDIF, FT4, CMP #### [place] [address] Hematocrit (Bld) [Volume fraction] 48.3 % Normal 39.0-51.0 [facility] Comment on above: Performed By: #### W SR, TSH, CBCDIF, FT4, CMP #### [place] [address] Hemoglobin (Bld) [Mass/Vol] 16.2 g/dL Normal 13.0-17.0 [facility] Comment on above: Performed By: #### W SR, TSH, CBCDIF, FT4, CMP #### [place] [address] Lymphocytes (Bld) [#/Vol] 1.61 10*3/uL Normal 1.00-4.00 [facility] Comment on above: Performed By: #### W SR, TSH, CBCDIF, FT4, CMP #### [place] [address] Lymphocytes/100 WBC (Bld) 31.1 % Normal [facility] Comment on above: Performed By: #### W SR, TSH, CBCDIF, FT4, CMP #### [facility] [address] [place] [address] MCH 28.8 pG Normal 26.0-34.0 [facility] Comment on above: Performed By: #### W SR, TSH, CBCDIF, FT4, CMP #### [place] [address] [place] [address] MCHC (RBC) [Mass/Vol] 33.5 g/dL Normal 30.5-36.0 [facility] Comment on above: Performed By: #### W SR, TSH, CBCDIF, FT4, CMP #### [place] [address] MCV (RBC) [Entitic vol] 85.8 fL Normal 80.0-100.0 [facility] Comment on above: Performed By: #### W SR, TSH, CBCDIF, FT4, CMP #### [place] [address] Monocytes/100 WBC (Bld) 11.4 % Normal C [facility] Comment on above: Performed By: #### W SR, TSH, CBCDIF, FT4, CMP #### [place] [address] [place] [address] Neutrophils/100 WBC (Bld) 55.6 % Normal [facility] Comment on above: Performed By: #### W SR, TSH, CBCDIF, FT4, CMP #### [place] [address] [place] [address] NRBCs 0.0 /100 WBC Normal 0 [facility] Comment on above: Performed By: #### W SR, TSH, CBCDIF, FT4, CMP #### [place] [address] [place] [address] Platelet mean volume (Bld) [Entitic vol] 11.3 fL Normal 9.0-12.7 [facility] Comment on above: Performed By: #### W SR, TSH, CBCDIF, FT4, CMP #### [facility] [address] [place] [address] Platelets (Bld) [#/Vol] 197 10*3/uL Normal 150-400 [facility] Comment on above: Performed By: #### W SR, TSH, CBCDIF, FT4, CMP #### [facility] [address] [place] [address] RBC (Bld) [#/Vol] 5.63 10*6/uL Normal 4.20-6.00 [facility] Comment on above: Performed By: #### W SR, TSH, CBCDIF, FT4, CMP #### [place] [address] [place] [address] WBC (Bld) [#/Vol] 5.17 10*3/uL Normal 3.70-11.00 [facility] Comment on above: Performed By: #### W SR, TSH, CBCDIF, FT4, CMP #### [place] [address] [place] [id number] CNOVon 07-08-2021 CNOV Office Visit (PEDSMT) CAMERON TERESA ([id number]) 1 M Date Time Provider Department 07/08/21 1:00 PM JAXSON STARKS During your visit today, we [...] SALINE) 0.65 % nasal spray Use 1 Camilla in the nose as needed. albuterol HFA [...] drinks Go! Be healthy, inside and out! [email or web address] Referring Provider: SELF [200] Allergies As of Date: 07/08/2021 (No Known Allergies) Date Reviewed: 07/08/2021 Reviewed by: Jaxson Starks DO - Fully Assessed Primary Visit Diagnosis:Hypothermi a due to exposure [T68.XXXA] Order(s):CBC + DIFF [SQCBCDIF] Order #: [id number] FUTURE SED RATE WESTERGREN [SQWSR] Order #: [id number] FUTURE T4 FREE/FREE THYROX [SQFT4] Order #: [id number] FUTURE TSH BLD [SQTSH] Order #: [id number] FUTURE COMP METABOLIC PANEL [SQCMP] Order #: [id number] FUTURE Prescriptions as of 07/08/2021 - ibuprofen (MOTRIN IB) 200 mg tablet Take 600 mg by mouth every 6 hours as needed. - s (more content not included)... Normal [facility] Comp Metabolic Panelon 07-08 Albumin [Mass/Vol] 4.9 g/dL High 3.2-4.5 [facility] Comment on above: Performed By: #### W SR, TSH, CBCDIF, FT4, CMP #### [facility] [address] [place], [place] [address] ALP [Catalytic activity/Vol] 122 U/L Normal 55-149 [facility] Comment on above: Result Comment: Refe [...] CALIPER cohort. [employer]. Performed By: #### W SR, TSH, CBCDIF, FT4, CMP #### [facility] [address] [place], [place] [address] ALT [Catalytic activity/Vol] 25 U/L Normal 10-54 [facility] Comment on above: Result Comment: (NOT E) Reference ranges for this patient's age group have not been established. These reference ranges reflect verified or established ranges for the adult population. Interpret these ranges wtih caution using clinical context and additional reference resources. Performed By: #### W SR, TSH, CBCDIF, FT4, CMP #### [facility] [address] [place], [place] [id number] Anion gap [Moles/Vol] 12 mmol/L Normal 9-18 [facility] Comment on above: Result Comment: (NOT E) Reference ranges for this patient's age group have not been established. These reference ranges reflect verified or established ranges for the adult population. Interpret these ranges with caution using the clinical context and additional reference resources. Performed By: #### W SR, TSH, CBCDIF, FT4, CMP #### [facility] [address] [place], [place] [address] AST [Catalytic activity/Vol] 25 U/L Normal 14-40 [facility] Comment on above: Result Comment: (NOT E) Reference ranges for this patient's age group have not been established. These reference ranges reflect verified or established ranges for the adult population. Interpret these ranges with caution using clinical context and additional reference resources. Performed By: #### W SR, TSH, CBCDIF, FT4, CMP #### [facility] [address] [place], [place] [address] Bilirubin [Mass/Vol] 0.3 mg/dL Normal 0.2-1.3 [facility] Comment on above: Result Comment: (NOT E) Reference ranges for this patient's age group have not been established. These reference ranges reflect verified or established ranges for the adult population. Interpret these ranges with caution using the clinical context and additional reference resources. Performed By: #### W SR, TSH, CBCDIF, FT4, CMP #### [facility] [address] [place], [place] [address] Calcium [Mass/Vol] 10.2 mg/dL Normal 8.4-10.2 [facility] Comment on above: Performed By: #### W SR, TSH, CBCDIF, FT4, CMP #### [facility] [address] [place], [place] [address] Chloride [Moles/Vol] 105 mmol/L Normal 97-105 [facility] Comment on above: Result Comment: (NOT E) Reference ranges for this patient's age group have not been established. These reference ranges reflect verified or established ranges for the adult population. Interpret these ranges with caution using the clinical context and additional reference resources. Performed By: #### W SR, TSH, CBCDIF, FT4, CMP #### [facility] [address] [place], [place] [address] CO2 [Moles/Vol] 24 mmol/L Normal 22-30 [facility] Comment on above: Result Comment: (NOT E) Reference ranges for this patient's age group have not been established. These reference ranges reflect verified or established ranges for the adult population. Interpret these ranges with caution using the clinical context and additional reference resources. Performed By: #### W SR, TSH, CBCDIF, FT4, CMP #### [facility] [address] [place], [place] [address] Creatinine [Mass/Vol] 1.19 mg/dL Normal 0.73-1.22 [facility] Comment on above: Result Comment: Refe rence ranges for this patient's age group have not been established. These reference ranges reflect verified or established ranges for the adult population. Interpret these ranges with caution using the clinical context and additional reference resources. Performed By: #### W SR, TSH, CBCDIF, FT4, CMP #### [facility] [address] [place], [place] [address] eGFR-Ped. Factor 0.35 Normal [facility] Comment on above: Result Comment: eGFR [...] W SR, TSH, CBCDIF, FT4, CMP #### [facility] [address] [place], [place] [address] Glucose [Mass/Vol] 70 mg/dL Low 74-99 [facility] Comment on above: Result Comment: Refe rence ranges for this patient's age group have not been established. These reference ranges reflect verified or established ranges for the adult population. Interpret these ranges with caution using the clinical context and additional reference resources. The [place] [employer] (ADA) provides guidance for cutoff [...] Standards of Medical Care in Diabetes 2016, [place] [employer]. Diabetes Care. 2016.39(Suppl 1). Performed By: #### W SR, TSH, CBCDIF, FT4, CMP #### [facility] [address] [place], [place] [address] Potassium [Moles/Vol] 4.9 mmol/L Normal 3.7-5.1 [facility] Comment on above: Result Comment: (NOT E) Reference ranges for this patient's age group have not been established. These reference ranges reflect verified or established ranges for the adult population. Interpret these ranges with caution using the clinical context and additional reference resources. Performed By: #### W SR, TSH, CBCDIF, FT4, CMP #### [facility] [address] [place], [place] [address] Protein [Mass/Vol] 7.3 g/dL Normal 6.3-8.0 [facility] Comment on above: Result Comment: (NOT [...] MK, Ameya I, Teresita M, et al. [facility] Initiative on Reference Interval Database(CALIPER): pediatric reference intervals for an integrated clinical chemistry and immunoassay analyzer, Gomez DINING CAR HOP [id number]. Clin Biochem 2009;42:885-891. Performed By: #### W SR, TSH, CBCDIF, FT4, CMP #### [facility] [address] [place] [id number] Sodium [Moles/Vol] 141 mmol/L Normal 136-144 [facility] Comment on above: Result Comment: (NOT E) Reference ranges for this patient's age group have not been established. These reference ranges reflect verified or established ranges for the adult population. Interpret these ranges with caution using the clinical context and additional reference resources. Performed By: #### W SR, TSH, CBCDIF, FT4, CMP #### [place] [address] [place] [address] Urea nitrogen [Mass/Vol] 15 mg/dL Normal 5-18 [facility] Comment on above: Performed By: #### W SR, TSH, CBCDIF, FT4, CMP #### [place] [address] [place] [address] Free T4on 07-08-2021 Free T4 [Mass/Vol] 1.4 ng/dL Normal 0.8-2.8 [facility] Comment on above: Performed By: #### W SR, TSH, CBCDIF, FT4, CMP #### [place] [address] [place], [place] [address] Sed Rate Westergrenon 2021 Sed Rate Westergren 2 mm/hr Normal 0-15 [facility] Comment on above: Performed By: #### W SR, TSH, CBCDIF, FT4, CMP #### [place] [address] [place] [address] TSHon 07-08-2021 TSH Qn 2.020 m[IU]/L Normal 0.510-4.300 [facility] Comment on above: Result Comment: Refe rence ranges were not locally established for this patient's age group. The normal values are based on the following source: Phil Block V. Reference Ranges for Adults and Children: Pre-analytical Considerations. [facility] Performed By: #### W SR, TSH, CBCDIF, FT4, CMP #### [facility] [address] [place], [place] [address] ED NOTEon 05-16-2021 ED NOTE HNO ID: [id number] Author: Zara Enciso RN Service: ? Author Type: Registered Nurse Type: ED Notes Filed: 05/16/2021 8:50 PM Note Text: Spacer teaching done and spacer provided [facility] ED NOTE HNO ID: [id number] Author: Zara Enciso RN Service: ? Author Type: Registered Nurse Type: ED Notes Filed: 05/16/2021 8:32 PM Note Text: No spacers available in ED. RT notified and will bring from store room [facility] ED NOTE HNO ID: [id number] Author: Zara Enciso RN Service: ? Author Type: Registered Nurse Type: ED Notes Filed: 05/16/2021 6:23 PM Note Text: Strep swab obtained. Mom states covid swab done yesterday via [facility] ED NOTE HNO ID: [id number] Author: Carter Cadena RN Service: ? Author Type: Registered Nurse Type: ED Notes Filed: 05/16/2021 5:17 PM Note Text: Pt bib mother for cough sore throat and chest discomfort x 5 days Seen by pmd yesterday [facility] ED PROV NOTEon 05-16-2021 ED PROV NOTE HNO ID: [id number] Author: Yvette Marion DO Service: Emergency Medicine [...] nursing note reviewed. Exam conducted with a electrical assistant present. Constitutional: General: He is not in [...] Motor: No weak (more content not included)... Normal [facility] XR CHEST 1V FRONTAL PORTon 1 [...] on May 16 2021 7:32PM EST [id number] [facility] 05-15-2021 [facility] Office Visit (PEDSMT) CAMERON TERESA ([id number]) 1 M Date Time Provider Department 05/15/21 12:10 PM JAXSON STARKS PEDSMT During your visit [...] drinks Go! Be healthy, inside and out! [email or web address] Referring Provider: SELF [200] Allergies As of Date: 05/15/2021 (No Known Allergies) Date Reviewed: 05/15/2021 Reviewed by: Jaxson Starks, - Fully Assessed Reason for Visit: Cough [28] Cmt: x 4 days Headaches [3461] Primary Visit Diagnosis:Headache, unspecified headache type [R51.9] Order(s):COVID, FLU A/B + RSV, ROUTINE [SQCVFLRS] Order #: [id number] Prescriptions as of 05/15/2021 - hydrOXYzine pamoate [...] drinks Go! Be healthy, inside and out! [email or web address] Disposition: Return if symptoms worsen or fail to improve. Follow-up and Disposition History for Encounter Date Provider Department Center (more content not included)... Normal [facility] Cepheid Bill only (EXCFR)on 05-15-2021 Cepheid Bill only (EXCFR) Billed for services performed Normal [facility] Comment on above: Performed By: #### C FRCEP, EXCFR #### [place] [phone] EXCOVD, Flu A/B, RSV (On int erfaces 1102,1120)on 05-15-2021 Influenza A PCR Negative Normal [facility] Comment on above: Result Comment: This test has been authorized by [facility] under an Emergency Use Authorization (EUA). Performed By: #### C FRCEP, EXCFR #### [place] [phone] Influenza B PCR Negative Normal [facility] Comment on above: Result Comment: This test has been authorized by FDA under an Emergency Use Authorization (EUA). Performed By: #### C FRCEP, EXCFR #### [place] [phone] RSV PCR Negative Normal [facility] Comment on above: Result Comment: This test has been authorized by FDA under an Emergency Use Authorization (EUA). Performed By: #### C FRCEP, EXCFR #### [place] [phone] SARS-CoV-2 (COVID-19) RNA JERRELL+probe Ql (Unsp spec) UPPER RESPIRATORY TRACT SWAB Normal [facility] Comment on above: Performed By: #### C FRCEP, EXCFR #### [phone] SARS-CoV-2 (COVID-19) RNA JERRELL+probe Ql (Unsp spec) Negative for COVID19 (SARS CoV2) by RT-PCR or equivalent method. Normal Negative for COVID19 (SARS CoV2) by RT-PCR or equivalent method. [facility] Comment on above: Result Comment: This test has been authorized by FDA under an Emergency Use Authorization (EUA). Test performed by [facility], [facility] [place], [address] [place] [address]. Performed By: #### C FRCEP, EXCFR #### [facility] [address] [place] [phone] GC/CHLAM AMPLIFICATION URINE [CCL]on 10-30-2020 Chlamydia Amplif, Ur Negative Normal [facility] Comment on above: Result Comment: [facility] [place] [id number] Benito Uribe III, M.D. [id number] Performed By: #### 2 48623 #### [facility],[address] [place] [address] UGCAMP Negative Normal [facility] Comment on above: Performed By: #### 2 02716 #### [facility],[address] [place] [address] GC/Chlamydia Amp, Uron 10-30 Chlamydia Amplif, Ur CLNEG Normal [facility] Comment on above: Performed By: #### U GCCT #### [facility] Routine Lab [facility] [place] [address] GC Amplification, Ur NGNEG Normal [facility] Comment on above: Performed By: #### U GCCT #### [facility] [place] [phone] CBC + DIFFon 10-24-2020 Baso # 0.00 x10EE3/UL Normal 0.00 - 0.10 [facility] Comment on above: Performed By: #### 2 44759 #### [facility],[address] [place] [address] Basophils/100 WBC (Bld) 0.8 % Normal 0.0 - 2.0 [facility] Comment on above: Performed By: #### 2 59315 #### [facility],[address] [place] [address] CBC + DIFF Normal [facility] Comment on above: Result Comment: CBC- COMPLETE BLOOD COUNT Performed By: #### 2 33380 #### [facility],[address] [place] [address] EO # 0.10 x10EE3/UL Normal 0.00 - 0.50 [facility] Comment on above: Performed By: #### 2 75360 #### [facility],[address] [place], [place] [id number] Eosinophils/100 WBC (Bld) 1.9 % Normal 0.0 - 7.0 [facility] Comment on above: Performed By: #### 2 89966 #### [place] [address] Erythrocyte distribution width (RBC) [Ratio] 14.3 % Normal 12.0 - 15.6 [facility] Comment on above: Performed By: #### 2 93204 #### [facility],[address] [place] [address] Hematocrit (Bld) [Volume fraction] 43.5 % Normal 40.0 - 52.0 [facility] Comment on above: Performed By: #### 2 15528 #### [facility],[address] [place], [place] [id number] Hemoglobin (Bld) [Mass/Vol] 14.9 g/dL Normal 13.0 - 17.5 [facility] Comment on above: Performed By: #### 2 69397 #### [facility],[address] [place] [address] Lymph # 1.30 x10EE3/UL Normal 0.80 - 2.80 [facility] Comment on above: Performed By: #### 2 29508 #### [place] [id number] Lymphocytes/100 WBC (Bld) 30.7 % Normal 20.0 - 45.0 [facility] Comment on above: Performed By: #### 2 40935 #### [facility],[address] [place] [address] MANUAL DIFF N/A Normal [facility] Comment on above: Performed By: #### 2 47299 #### [facility],[address] [place] [address] MCH (RBC) [Entitic mass] 29 pg Normal 27 - 33 [facility] Comment on above: Performed By: #### 2 48777 #### [facility],[address] [place] [address] MCHC 34 X10 3 Normal 32 - 36 [facility] Comment on above: Performed By: #### 2 04028 #### [facility],[address] [place] [address] MCV (RBC) [Entitic vol] 84 fL Normal 81 - 98 [facility] Comment on above: Performed By: #### 2 55198 #### [facility],[address] [place] [address] Hampton # 0.40 x10EE3/UL Normal 0.20 - 1.00 [facility] Comment on above: Performed By: #### 2 42147 #### [facility],[address] [place] [address] MONOS % 8.8 % Normal 0.0 - 10.0 [facility] Comment on above: Performed By: #### 2 71569 #### [facility],[address] [place] [address] Morphology Daniel (Bld) [Interp] N/A Normal [facility] Comment on above: Result Comment: {CD] Performed By: #### 2 86574 #### [facility],[address] [place] [address] Neut # 2.50 x10EE3/UL Normal 1.50 - 7.10 [facility] Comment on above: Performed By: #### 2 80269 #### [facility],[address] [place] [address] Neutrophils/100 WBC (Bld) 57.8 % Normal 46.0 - 76.0 [facility] Comment on above: Performed By: #### 2 71434 #### [facility],[address] [place] [address] PLATELET 142 x10EE3/UL Low 150 - 450 [facility] Comment on above: Performed By: #### 2 11331 #### [facility],[address] [place] [address] Platelet mean volume (Bld) [Entitic vol] 9.7 fL Normal 6.4 - 10.5 [facility] Comment on above: Result Comment: AUTO MATED DIFFERENTIAL Performed By: #### 2 36396 #### [facility],[address] [place] [address] RBC 5.16 x 10EE6/UL Normal 4.50 - 6.00 [facility] Comment on above: Performed By: #### 2 60208 #### [facility],[address] [place] [address] 28063 WBC 4.3 x 10EE3/UL Low 4.5 - 10.8 [facility] Comment on above: Performed By: #### 2 72170 #### [facility],[address] [place] [address]898 CMP with eGFRon 10-24-2020 AGE 15 years Normal [facility] Comment on above: Performed By: #### 2 32031 #### [facility],[address] [place] [address] Albumin [Mass/Vol] 4.0 g/dL Normal 3.4 - 5.0 [facility] Comment on above: Performed By: #### 2 70059 #### [facility],[address] [place] [address] Albumin/Globulin [Mass ratio] 1.4 {ratio} Normal 0.9 - 1.6 [facility] Comment on above: Performed By: #### 2 45332 #### [facility],[address] [place] [address] ALK PHOS 113 U/L Normal 46 - 116 [facility] Comment on above: Performed By: #### 2 65092 #### [facility],[address] [place] [address] ALT [Catalytic activity/Vol] 23 U/L Normal 16 - 63 [facility] Comment on above: Performed By: #### 2 [id number] #### [facility],[address] [place] [address] 24244 Anion gap [Moles/Vol] 11 mmol/L Normal 10 - 20 [facility] Comment on above: Performed By: #### 2 57096 #### [facility],[address] [place] [address] 01342 AST [Catalytic activity/Vol] 21 U/L Normal 15 - 37 [facility] Comment on above: Performed By: #### 2 19419 #### [facility],[address] [place] [address] 60924 B/C RATIO 17 ratio Normal 0 - 30 [facility] Comment on above: Performed By: #### 2 59889 #### [facility],[address] [place] [address] 85383 Bilirubin [Mass/Vol] 0.5 mg/dL Normal 0.2 - 1.0 [facility] Comment on above: Performed By: #### 2 99667 #### [facility],[address] [place] [address] 47865 Calcium [Mass/Vol] 8.9 mg/dL Normal 8.5 - 10.1 [facility] Comment on above: Performed By: #### 2 61476 #### [facility],[address] [place] [address] 68835 Chloride [Moles/Vol] 104 mmol/L Normal 98 - 107 [facility] Comment on above: Performed By: #### 2 99380 #### [facility],[address] [place] [address] 55793 CMP with eGFR Normal [facility] Comment on above: Result Comment: COMP REHENSIVE METABOLIC PANEL Performed By: #### 2 29891 #### [facility],[address] [place] [address] 18285 CO2 [Moles/Vol] 31.3 mmol/L Normal 21.0 - 32.0 [facility] Comment on above: Performed By: #### 2 32843 #### [facility],[address] [place] [address] 28432 Creatinine [Mass/Vol] 1.1 mg/dL Normal 0.7 - 1.3 [facility] Comment on above: Performed By: #### 2 59561 #### [facility],[address] [place] [address] 93468 GFR/1.73 sq M.predicted among non-blacks MDRD (S/P/Bld) [Vol rate/Area] mL/min/{1.73_m2} Normal 60 - 999 [facility] Comment on above: Performed By: #### 2 18731 #### [facility],[address] [place] [address] 32687 Result Comment: ACCO RDING TO THE NATIONAL KIDNEY DISEASE EDUCATION PROGRAM(NKDE), A NORMAL eGFR IS A VALUE GREATER THAN OR EQUAL TO 60 ML/MIN/1.73 SQ METERS. CHRONIC KIDNEY DISEASE: <60mL/MIN/1.73 SQ METERS KIDNEY FAILURE: <15mL/MIN/1.73 SQ METERS THIS TEST SHOULD ONLY BE USED FOR PATIENTS 18 YEARS OF AGE AND OLDER. Globulin (S) [Mass/Vol] 2.8 g/dL Normal 1.5 - 3.8 [facility] Comment on above: Performed By: #### 2 63979 #### [facility],[address] [place] [address] 93664 Glucose [Mass/Vol] 85 mg/dL Normal 74 - 106 [facility] Comment on above: Performed By: #### 2 77370 #### [facility],[address] [place] [address] 43114 Potassium [Moles/Vol] 4.0 mmol/L Normal 3.5 - 5.1 [facility] Comment on above: Performed By: #### 2 39537 #### [facility],[address] [place] [address] 23415 Protein [Mass/Vol] 6.8 g/dL Normal 6.4 - 8.2 [facility] Comment on above: Performed By: #### 2 32215 #### [facility],[address] [place] [address] 81407 Sodium [Moles/Vol] 142 mmol/L Normal 136 - 145 [facility] Comment on above: Performed By: #### 2 22158 #### [facility],[address] [place] [address] 22756 Urea nitrogen [Mass/Vol] 19 mg/dL High 7 - 18 [facility] Comment on above: Performed By: #### 2 86124 #### [facility],[address] [place] [address] 85487 DRUG SCREEN URINE MEDICon AMPHETAMINES Negative [facility] Comment on above: Performed By: #### 2 64616 #### [facility],[address] [place] [address] 91166 B-DIAZEPINES Negative Normal [facility] Comment on above: Performed By: #### 2 55859 #### [facility],[address] [place] [address] 59374 BARBITURATES Negative Normal [facility] Comment on above: Performed By: #### 2 82809 #### [facility],[address] [place] [address] 06350 COCAINE Negative [facility] Comment on above: Performed By: #### 2 10339 #### [facility],[address] [place] [address] DRUG SCREEN URINE MEDIC Normal [facility] Comment on above: Result Comment: DRUG SCREEN - URINE Performed By: #### 2 03014 #### [facility],[address] [place] [address] METHADONE Negative Normal [facility] Comment on above: Performed By: #### 2 05549 #### [facility],[address] [place] [address] OPIATES Negative Normal [facility] Comment on above: Performed By: #### 2 57858 #### [facility],[address] [place] [address] PCP Negative Normal [facility] Comment on above: Performed By: #### 2 22748 #### [facility],[address] [place] [address] THC Negative Normal [facility] Comment on above: Result Comment: MOISÉS ENTS RECEIVING PROTON PUMP INHIBITORS MAY DEMONSTRATE FALSE POSITIVE THC/CANNABINOID RESULTS. AN ALTERNATIVE CONFIRMATORY METHOD SHOULD BE CONSIDERED TO VERIFY POSITIVE RESULTS. Performed By: #### 2 18843 #### [facility],[address] [place], [place] [address] TSHon 10-24-2020 TSH Qn 1.62 m[IU]/L Normal 0.51 - 4.13 [facility] Comment on above: Performed By: #### 2 82150 #### [facility],[address] [place] [address] CNPNon 10-21-2020 CNPN Telephone (PEDSMT) CAMERON TERESA ([id number]) 03 Date Time Provider Department 10/21/20 JASXON SATRKS During your visit today, we recorded the following information about you: Rigoberto Brown LPN 10/21/2020 4:14 PM Signed Release of medical records sent to records release. Rigoberto Brown LPN Allergies As of Date: 10/21/2020 (No Known Allergies) Date Reviewed: 09/05/2020 Reviewed by: Maru Escoto - Fully Assessed Reason for Visit: Release Of Medical Records [2017] Cmt: Department of [facility] Prescriptions as of 10/21/2020 [...] by RIGOBERTO BROWN LPN on 10/21/20 Normal [facility] ACUTE TOXICOLOGY PANEL, LACY Cano 09-24-2020 Acetaminophen [Mass/Vol] <10.0 Normal 5.0 - 20.0 [facility] Comment on above: Performed By: #### D RUBL #### [address] [address] Ethanol [Mass/Vol] mg/dL Normal [facility] Comment on above: Result Comment: FOR MEDICAL USE ONLY. . REF VALUES <10 Performed By: #### D RUBL #### [address] [address] SALICYLATE <3 Normal 4 - 20 [facility] Comment on above: Performed By: #### D RUBL #### [address] [address] CBC AND DIFFERENTIALon 09-24 % AUTOMATED IMMATURE GRAN 0.1 % Normal 0.0 - 1.0 [facility] Comment on above: Result Comment: Jessica ture Granulocyte Count (IG) includes promyelocytes, myelocytes and metamyelocytes but does not include bands. Percent differential counts (%) should be interpreted in the context of the absolute cell counts (cells/L). Performed By: #### C BCDF #### [address] [address] Basophils (Bld) [#/Vol] 0.03 10*3/uL Normal 0.00 - 0.1 0 [facility] Comment on above: Performed By: #### C BCDF #### [address] [address] Basophils/100 WBC (Bld) 0.4 % Normal 0.0 - 1.0 [facility] Comment on above: Performed By: #### C BCDF #### [address] [address] Eosinophils (Bld) [#/Vol] 0.04 10*3/uL Normal 0.00 - 0.70 [facility] Comment on above: Performed By: #### C BCDF #### [address] [address] Eosinophils/100 WBC (Bld) 0.5 % Normal 0.0 - 5.0 [facility] Comment on above: Performed By: #### C BCDF #### [address] [address] Erythrocyte distribution width (RBC) [Ratio] 13.3 % Normal 11.5 - 14.5 [facility] Comment on above: Performed By: #### C BCDF #### [address] [address] Hematocrit (Bld) [Volume fraction] 47.2 % Normal 37.0 - 49.0 [facility] Comment on above: Performed By: #### C BCDF #### [address] [address] Hemoglobin (Bld) [Mass/Vol] 15.7 g/dL Normal 13.0 - 16.0 [facility] Comment on above: Performed By: #### C BCDF #### [address] [address] Lymphocytes (Bld) [#/Vol] 1.92 10*3/uL Normal 1.80 - 4.80 [facility] Comment on above: Performed By: #### C BCDF #### [address] [address] Lymphocytes/100 WBC (Bld) 23.6 % Normal 28.0 - 48.0 [facility] Comment on above: Performed By: #### C BCDF #### [address] [address] MCHC (RBC) [Mass/Vol] 33.3 g/dL Normal 31.0 - 37.0 [facility] Comment on above: Performed By: #### C BCDF #### [address] [address] MCV (RBC) [Entitic vol] 87 fL Normal 78 - 102 U [facility] Comment on above: Performed By: #### C BCDF #### [address] [address] Monocytes (Bld) [#/Vol] 0.61 10*3/uL Normal 0.10 - 1.0 0 [facility] Comment on above: Performed By: #### C BCDF #### [address] [address] Monocytes/100 WBC (Bld) 7.5 % Normal 3.0 - 9.0 U [facility] Comment on above: Performed By: #### C BCDF #### [address] [address] Neutrophils (Bld) [#/Vol] 5.52 10*3/uL Normal 1.20 - 7.70 [facility] Comment on above: Performed By: #### C BCDF #### [address] [address] Neutrophils/100 WBC (Bld) 67.9 % Normal 33.0 - 69.0 [facility] Comment on above: Performed By: #### C BCDF #### [address] [address] Platelets (Bld) [#/Vol] 184 10*3/uL Normal 150 - 400 [facility] Comment on above: Performed By: #### C BCDF #### [address] [address] RBC (Bld) [#/Vol] 5.41 x10E12/L High 4.50 - 5.30 [facility] Comment on above: Performed By: #### C BCDF #### [address] [address] WBC (Bld) [#/Vol] 8.1 10*3/uL Normal 4.5 - 13.5 [facility] Comment on above: Performed By: #### C BCDF #### [address] [address] COMPREHENSIVE PANELon 2020 Albumin [Mass/Vol] 4.7 g/dL Normal 3.4 - 5.0 [facility] Comment on above: Performed By: #### C MP #### [address] [address] ALP [Catalytic activity/Vol] 132 U/L Normal 33 - 139 [facility] Comment on above: Performed By: #### C MP #### [address] [address] ALT [Catalytic activity/Vol] 18 U/L Normal 3 - 28 [facility] Comment on above: Result Comment: Moisés ents treated with Sulfasalazine may generate falsely decreased results for ALT. Performed By: #### C MP #### [address] [address] Anion gap [Moles/Vol] 11 mmol/L Normal 10 - 30 [facility] Comment on above: Performed By: #### C MP #### [address] [address] AST [Catalytic activity/Vol] 26 U/L Normal 9 - 32 [facility] Comment on above: Performed By: #### C MP #### [address] [address] Bilirubin [Mass/Vol] 0.4 mg/dL Normal 0.0 - 0.9 [facility] Comment on above: Performed By: #### C MP #### [address] [address] Calcium [Mass/Vol] 9.7 mg/dL Normal 8.5 - 10.7 [facility] Comment on above: Performed By: #### C MP #### [address] [address] Chloride [Moles/Vol] 106 mmol/L Normal 98 - 107 [facility] Comment on above: Performed By: #### C MP #### [address] [address] Creatinine [Mass/Vol] 1.01 mg/dL Normal 0.60 - 1.10 [facility] Comment on above: Performed By: #### C MP #### [address] [address] Glucose [Mass/Vol] 118 mg/dL High 74 - 99 [facility] Comment on above: Performed By: #### C MP #### [address] [address] HCO3 (Bld) [Moles/Vol] 26 mmol/L Normal 18 - 27 [facility] Comment on above: Performed By: #### C MP #### [address] [address] Potassium [Moles/Vol] 3.9 mmol/L Normal 3.5 - 5.3 [facility] Comment on above: Performed By: #### C MP #### [address] [address] Protein [Mass/Vol] 7.2 g/dL Normal 6.2 - 7.7 [facility] Comment on above: Performed By: #### C MP #### [address] [address] Sodium [Moles/Vol] 139 mmol/L Normal 136 - 145 [facility] Comment on above: Performed By: #### C MP #### [address] [address] Urea nitrogen [Mass/Vol] 15 mg/dL Normal 6 - 23 [facility] Comment on above: Performed By: #### C MP #### [facility] [address] [place] [address] DRUG SCREEN,URINEon 09-25-19 21 AMPHETAMINE SCREEN,U Negative Normal NEGATIVE [facility] Comment on above: Result Comment: CUTO FF LEVEL: 500 NG/ML Cross-reactivity has been reported with high concentrations of the following drugs: buproprion, chloroquine, chlorpromazine, ephedrine, mephentermine, fenfluramine, phentermine, phenylpropanolamine, pseudoephedrine, and propranolol. Performed By: #### D RUG3 #### [address] [address] BARBITURATES SCREEN,U Negative Normal NEGATIVE [facility] Comment on above: Result Comment: CUTO FF LEVEL: 200 NG/ML Performed By: #### D RUG3 #### [address] [address] BENZODIAZEPINES SCREEN,U Negative Normal NEGATIVE [facility] Comment on above: Result Comment: CUTO FF LEVEL: 200 NG/ML Performed By: #### D RUG3 #### [address] [address] CANNABINOIDS SCREEN,U Negative Normal NEGATIVE [facility] Comment on above: Result Comment: CUTO FF LEVEL: 50 NG/ML Performed By: #### D RUG3 #### [address] [address] COCAINE METABOLITE SCREEN,U Negative Normal NEGATIVE [facility] Comment on above: Result Comment: CUTO FF LEVEL: 150 NG/ML Performed By: #### D RUG3 #### [address] [address] DRUG SCREEN COMMENT SEE BELOW Normal [facility] Comment on above: Result Comment: Drug screen results are presumptive and should not be used to assess compliance with prescribed medication. Contact the performing [facility] laboratory to add-on definitive confirmatory [...] directors. Performed By: #### D RUG3 #### [address] [address] FENTANYL SCREEN,URINE Negative Normal NEGATIVE [facility] Comment on above: Result Comment: CUTO FF LEVEL: 1 NG/ML Performed By: #### D RUG3 #### [address] [address] METHADONE SCREEN,U Negative Normal NEGATIVE [facility] Comment on above: Result Comment: CUTO FF LEVEL: 150 NG/ML The metabolite L-uffee-cprwrgvtkpeizi (LAAM) is not detected by this method in concentrations that would be found in the urine of patients on LAAM therapy. Performed By: #### D RUG3 #### [address] [address] OPIATES SCREEN,U Negative Normal NEGATIVE [facility] Comment on above: Result Comment: CUTO FF LEVEL: 300 NG/ML The opiate screen does not detect fentanyl, meperidine, or tramadol. Oxycodone is not consistently detected (refer to Oxycodone Screen, Urine result). Performed By: #### D RUG3 #### [address] [address] OXYCODONE SCREEN,U Negative Normal NEGATIVE [facility] Comment on above: Result Comment: CUTO FF LEVEL: 100 NG/ML This test will accurately detect both oxycodone and oxymorphone. Performed By: #### D RUG3 #### [address] [address] PCP SCREEN,U Negative Normal NEGATIVE [facility] Comment on above: Result Comment: CUTO FF LEVEL: 25 NG/ML Cross-reactivity has been reported with dextromethorphan. Performed By: #### D RUG3 #### [address] [address] Provider Note - ED v2on 08-27 Provider [...] home. He can indeed go back to [facility] just not tonight. They would need to go through the intake process in the morning. Stepmother also has other applications out to places such as [place] for the patient and are waiting to hear back from them. Patient is stable. Mother and stepmother feel that the child is stable at this point time to be in their custody and they will take the patient home at this time. I did attempt to contact patient's physician at the [facility] facility Dr. Laureano with no [...] Last Updated: 24-Sep-2020 00:45 by MANDEEP COOK) [facility] Risk Screen - PEDS Emergency on 09-24-2020 Risk Screen - PEDS Emergency Preferred Language: Preferred Language: Preferred Language for Discussing Health Care (patient/designee)En [facility] Advanced Directives: Advance Directive/DNRnot applicable Learning Assessment (Patient): Patient is Able to be Assessed for Learningyes Educational [id number] grade Factors Influence Readiness to Learnnone, ready to learn Factors Impact Ability to Learnnone Devices/Methods Used to Communicatenone Learning Preferencesskill demonstration, verbal instruction, written material Cultural Considerationsnone Developmental Considerationsnone Jewish Considerationsnone Other Learnersfamily Learning Assessment (Other Learner): Other learner availableyes Other Learner is Able to be Assessed for Learningyes Learnerfamily Factors Influencing Readiness to Learnnone, ready to learn Factors that Impact Ability to Learnnone Devices/Methods Used to Communicatenone Learning Preferenceswritten material Cultural Considerationsnone Developmental Considerationsnone Jewish Considerationsnone Family Violence PEDS: Family Violence Screen [...] Updated: 24-Sep-2020 01:06 by America Horn) Normal [facility] Triage - ED Pedson Triage [...] no Acuity Level: 2 Peds Complaint Code ([facility] [place] N/A [facility] The patient and/or guardian verbally acknowledges placement for services into the following (when Urgent Care Service hours are operating): emergency department ABCD PRIMARY ASSESSMENT CAMERON TERESA'michael primary assessment is Within Defined Limits. The airway is open and patent. Breathing spontaneous and unlabored with clear breath sounds bilaterally. Circulation is normal with good peripheral pulses. Skin is warm and dry and color is normal for race. Alert and appropriate for age. RISK SCREEN [place] Suicide Risk Screen Risk Screen Not Applicable/Able [...] 24-Sep-2020 01:01 by America Horn (AGUILA) Normal [facility] Drugon 09-23-2020 Ethanol [Mass/Vol] Alcohol <0.010 Performed at [facility] [address] [facility] [address] GM/DL (0-0.010 GM/DL) 0 - 0.010 GM/DL [facility] Hematologyon 09-23-2020 Basophils (Bld) [#/Vol] Abs Baso 0.04 K/ UL (0.00-0.22 K/UL) 0.00 - 0.22 K/UL [facility] Basophils/100 WBC (Bld) Basophil 0.30 % (0-1 [...] (78- 96 FL) 78 - 96 FL S Monocytes (Bld) [#/Vol] Abs [place] 0.87 K/ UL H (0-0.8 K/UL) High 0 - 0.8 K/UL S Monocytes/100 WBC (Bld) Monocyte 7.20 % (0-8 %) 0 - 8 % S Neutrophils (Bld) [#/Vol] Abs.Neut.Calculated 8.88 K/UL (Reference Range: not available) Performed at [address] [address] S Neutrophils (Bld) [#/Vol] Abs Neut 8.88 K/UL H (1.5-8.0 K/UL) High 1.5 - 8.0 K/UL S Platelets (Bld) [#/Vol] PLT 186 K/UL (150-450 K/UL) 150 - 450 K/UL [facility] RBC (Bld) [#/Vol] RBC 5.30 M/UL H (4.5-5.1 M/UL) High 4.5 - 5.1 M/UL S WBC (Bld) [#/Vol] WBC 12.1 K/UL (4.5-13.0 K/UL) 4.5 - 13.0 K/UL [facility] Metabolic Panelon 09-23-2020 Albumin [Mass/Vol] Albumin 4.6 GM/DL (3.5-5.0 GM/DL) 3.5 - 5.0 GM/DL [facility] ALT [Catalytic activity/Vol] ALT 17 U/L (5-40 U/L) Performed at [address] [address] 5 - 40 U/L [facility] Anion gap [Moles/Vol] Anion Gap 14 MMOL/ L (0-19 MMOL/L) 0 - 19 MMOL/L S AST [Catalytic activity/Vol] AST 26 U/L (5-40 U/L) 5 - 40 U/L S Bilirubin [Mass/Vol] Total Bilirubin 0.3 MG/DL (0.1-1.2 MG/DL) 0.1 - 1.2 MG/DL S Calcium [Mass/Vol] Calcium 9.9 MG/DL (8.5-10.4 MG/DL) 8.5 - 10.4 MG/DL [facility] Chloride [Moles/Vol] Chloride 101 MMOL/L (97-107 MMOL/L) 97 - 107 MMOL/L S CO2 [Moles/Vol] Carbon Dioxide 21 MMOL/L L (24-31 MMOL/L) Low 24 - 31 MMOL/L S Creatinine [Mass/Vol] Creatinine R 1.1 MG/DL (0.4-1.6 MG/DL) 0.4 - 1.6 MG/DL [facility] Glucose [Mass/Vol] Glucose 122 MG/DL H (65-99 MG/DL) High 65 - 99 MG/DL S Potassium [Moles/Vol] Potassium R 3.9 MMOL/L (3.4-5.1 MMOL/L) 3.4 - 5.1 MMOL/L [facility] Protein [Mass/Vol] Total Protein 7.3 G/DL (5.9-7.9 G/DL) 5.9 - 7.9 G/DL [facility] Sodium [Moles/Vol] Sodium 136 MMOL/L (133-145 MMOL/L) 133 - 145 MMOL/L [facility] Urea nitrogen [Mass/Vol] BUN 20 MG/DL (8-25 MG/DL) 8 - 25 MG/DL [facility] Urea nitrogen/Creatinine [Mass ratio] BUN Creatinine Ratio 18.2 RATIO (8-21 RATIO) 8 - 21 RATIO [facility] Otheron 09-23-2020 FLUAV RNA JERRELL+probe Ql (Nph) FLU A by PCR NEGATIVE (Reference Range: not available) [facility] FLUBV RNA JERRELL+probe Ql (Nph) FLU B by PCR NEGATIVE (Reference Range: not available) [facility] SARS-CoV-2 by PCR NEGATIVE (NEG ) [facility] Albumin/Globulin [Mass ratio] Albumin Globulin Ratio 1.7 RATIO (1.5-3.0 RATIO) 1.5 - 3.0 RATIO [facility] ALP (Bld) [Catalytic activity/Vol] Alk Phosphatase 137 U/L H (35-125 U/L) High 35 - 125 U/L [facility] Amphetamines Screen method >1000 ng/mL Ql (U) Urine Amphetamine NEGATIVE (Reference Range: not available) [facility] Bacteria Auto Ql (U) Bacteria NEGATIVE (Reference Range: not available) [facility] Barbiturates Screen method >300 ng/mL Ql (U) Urine Barbiturate NEGATIVE (Reference Range: not available) [facility] Benzodiazepines Screen method >300 ng/mL Ql (U) Urine Benzodiazepine NEGATIVE (Reference Range: not available) [facility] Benzoylecgonine Screen method >300 ng/mL Ql (U) Urine Cocaine Metabolites NEGATIVE (Reference Range: not available) [facility] Bilirubin Ql (U) Bili NEGATIVE (NEG ) [facility] Cannabinoids Screen method >50 ng/mL Ql (U) THC/Cannabinoids NEGATIVE (Reference Range: not available) [facility] Differential cell count method Nom (Bld) Diff Type AUTO DIFF (Reference Range: not available) [facility] Drug screen comment (U) [Interp] Urine [...] 200 ng/ml OXYCODONE 100 ng/ml Performed at [facility] [address] [facility] [address] (Reference Range: not available) [facility] Epithelial cells.squamous Auto Ql (U) Urine squamous epi NONE SEEN /HPF (Reference Range: not available) [facility] Erythrocyte distribution width (RBC) [Entitic vol] RDW SD 43.1 FL (37.0-54.0 FL) 37.0 - 54.0 FL [facility] Erythrocyte distribution width (RBC) [Ratio] RDW CV 13.1 % (11.7-15.0 %) 11.7 - 15.0 % [facility] Globulin (S) [Mass/Vol] Globulin 2.7 G/D L (1.9-3.7 G/DL) 1.9 - 3.7 G/DL [facility] Glucose Auto test strip (U) [Mass/Vol] Gluc NEGATIVE mg/dL (NEG mg/dL) [facility] Hemoglobin Auto test strip Ql (U) RBC 1 /HPF (0-3 /HPF) 0 - 3 /HPF [facility] Hemoglobin Ql (U) Blood NEGATIVE (NEG ) [facility] Hyaline casts Auto Ql (U) Urine hyaline cast NONE SEEN /LPF (Reference Range: not available) [facility] Immature granulocytes (Bld) [#/Vol] Abs Imm Neut 0.03 K/UL (0.0-0.1 K/UL) 0.0 - 0.1 K/UL [facility] Ketones Auto test strip Ql (U) Urine Ketone SMALL A (NEG ) Abnormal [facility] Leukocyte esterase Auto test strip Ql (U) Leuk NEGATIVE (NEG ) [facility] MCHC (RBC) [Mass/Vol] MCHC 31.9 % (31-37 %) 31 - 37 % [facility] Neutrophils.immature/10 0 WBC (Bld) Immature Neut % 0.20 % (0.0-1.0 %) 0.0 - 1.0 % [email or web address] Nitrite Auto test strip Ql (U) Nit NEGATIVE (NEG ) [facility] Nucleated RBC/100 WBC (Bld) [Ratio] NRBCs 0 /100 WBC (0 /100 WBC) [facility] Opiates Screen method >300 ng/mL Ql (U) Urine Opiate NEGATIVE (Reference Range: not available) [facility] Oxycodone Ql (U) Urine Oxycodone NEGATIVE (Reference Range: not available) [facility] HOSPITAL pH (U) Urine pH 6.0 (4.6-8.0 ) 4.6 - 8.0 [facility] Phencyclidine Screen method >25 ng/mL Ql (U) Urine PCP NEGATIVE (Reference Range: not available) [facility] Platelet mean volume (Bld) [Entitic vol] MPV 11.0 CU (7.0-12.6 CU) 7.0 - 12.6 CU [facility] Segmented neutrophils/100 WBC (Bld) Granulocyte 73.60 % (34-82 %) 34 - 82 % [facility] Urobilinogen Auto test strip Ql (U) Uro NORMAL MG/DL (0-1.0 MG/DL) 0 - 1.0 MG/DL [facility] WBC Auto (Urine sed) [#/Area] WBC NONE SEEN /HPF (0-3 /HPF) 0 - 3 /HPF Reflex to Urine Culture CULTURE NOT INDICATED Performed at [facility] [address] [facility] [address] (Reference Range: not available) [facility] Microscopic AUTOMATIC MICROSCOPIC URINES (Reference Range: not available) [facility] Urinalysison 09-23-2020 Clarity (U) Urine Clarity CLEAR (Reference Range: not available) [facility] Color (U) Urin color YELLOW (Reference Range: not available) [facility] Methadone Ql (U) Urine Methadone NEGATIVE (Reference Range: not available) [facility] Protein (U) [Mass/Vol] Prot TRACE mg/dL A (NEG mg/dL) Abnormal [facility] Specific gravity (U) [Rel density] Urine Sp Dennis 1.026 (1.005-1.030 ) 1.005 - 1.030 [facility] NR MRI CERVICAL WOon 021 NR MRI CERVICAL WO Patient Name: CAMERON TERESA STUDY: MRI of the cervical spine without contrast. INDICATION: syncope, age-indeterminate irregularity involving the anterior/superior aspect of the C5 vertebral body. COMPARISON: CT cervical spine 08/31/2020 ACCESSION NUMBER(S): [id number] ORDERING CLINICIAN: FAHEEM LINDSAY TECHNIQUE: Multiplanar, multisequence [...] finding. Electronically signed by: CHAIM DOSS MD [facility] Provider Note - ED Care Fletcher sitionon [...] Updated: 01-Sep-2020 02:17 by Millicent Ross) Normal [facility] CBC AND DIFFERENTIALon 08-31 % AUTOMATED IMMATURE GRAN 0.2 % Normal 0.0 - 1.0 [facility] Comment on above: Result Comment: Jessica ture Granulocyte Count (IG) includes promyelocytes, myelocytes and metamyelocytes but does not include bands. Percent differential counts (%) should be interpreted in the context of the absolute cell counts (cells/L). Performed By: #### C BCDF #### [facility] [address] [place] [id number] Basophils (Bld) [#/Vol] 0.02 10*3/uL Normal 0.00 - 0.1 0 [facility] Comment on above: Performed By: #### C BCDF #### [facility] [address] [id number] Basophils/100 WBC (Bld) 0.2 % Normal 0.0 - 1.0 [facility] Comment on above: Performed By: #### C BCDF #### [facility] [address] [place] [address] Eosinophils (Bld) [#/Vol] 0.04 10*3/uL Normal 0.00 - 0.70 [facility] Comment on above: Performed By: #### C BCDF #### [facility] [address] [place] [address] Eosinophils/100 WBC (Bld) 0.5 % Normal 0.0 - 5.0 [facility] Comment on above: Performed By: #### C BCDF #### [facility] [address] [place] [id number] Erythrocyte distribution width (RBC) [Ratio] 12.9 % Normal 11.5 - 14.5 [facility] Comment on above: Performed By: #### C BCDF #### [facility] [address] [place] [address] Hematocrit (Bld) [Volume fraction] 47.3 % Normal 37.0 - 49.0 [facility] Comment on above: Performed By: #### C BCDF #### [facility] [address] [place] [id number] Hemoglobin (Bld) [Mass/Vol] 15.8 g/dL Normal 13.0 - 16.0 [facility] Comment on above: Performed By: #### C BCDF #### [facility] [address] [place] [address] Lymphocytes (Bld) [#/Vol] 1.53 10*3/uL Low 1.80 - 4.80 [facility] Comment on above: Performed By: #### C BCDF #### [facility] [address] [place] [address] Lymphocytes/100 WBC (Bld) 18.1 % Normal 28.0 - 48.0 [facility] Comment on above: Performed By: #### C BCDF #### [facility] [address] [place] [address] MCHC (RBC) [Mass/Vol] 33.4 g/dL Normal 31.0 - 37.0 [facility] Comment on above: Performed By: #### C BCDF #### [facility] [address] [place] [address] MCV (RBC) [Entitic vol] 87 fL Normal 78 - 102 U [facility] Comment on above: Performed By: #### C BCDF #### [facility] [address] [place] [address] Monocytes (Bld) [#/Vol] 0.58 10*3/uL Normal 0.10 - 1.0 0 [facility] Comment on above: Performed By: #### C BCDF #### [facility] [address] [place] [address] Monocytes/100 WBC (Bld) 6.8 % Normal 3.0 - 9.0 U [facility] Comment on above: Performed By: #### C BCDF #### [facility] [address] [place] [address] Neutrophils (Bld) [#/Vol] 6.28 10*3/uL Normal 1.20 - 7.70 [facility] Comment on above: Performed By: #### C BCDF #### [facility] [address] [place] [address] Neutrophils/100 WBC (Bld) 74.2 % Normal 33.0 - 69.0 [facility] Comment on above: Performed By: #### C BCDF #### [facility] [address] [place] [address] Platelets (Bld) [#/Vol] 213 10*3/uL Normal 150 - 400 [facility] Comment on above: Performed By: #### C BCDF #### [facility] [address] [place] [address] RBC 5.46 x10E12/L High 4.50 - 5.30 [facility] Comment on above: Performed By: #### C BCDF #### [facility] [address] [place] [address] WBC (Bld) [#/Vol] 8.5 10*3/uL Normal 4.5 - 13.5 [facility] Comment on above: Performed By: #### C BCDF #### [facility] [address] [place] [address] COMPREHENSIVE PANELon 2020 Albumin [Mass/Vol] 4.7 g/dL Normal 3.4 - 5.0 [facility] Comment on above: Performed By: #### C MP #### [facility] [address] [place] [address] ALP [Catalytic activity/Vol] 123 U/L Normal 33 - 139 [facility] Comment on above: Performed By: #### C MP #### [facility] [address] [place] [address] ALT [Catalytic activity/Vol] 20 U/L Normal 3 - 28 [facility] Comment on above: Result Comment: Moisés ents treated with Sulfasalazine may generate falsely decreased results for ALT. Performed By: #### C MP #### [facility] [address] [place] [address] Anion gap [Moles/Vol] 15 mmol/L Normal 10 - 30 [facility] Comment on above: Performed By: #### C MP #### [facility] [address] [place] [address] AST [Catalytic activity/Vol] 24 U/L Normal 9 - 32 [facility] Comment on above: Performed By: #### C MP #### [facility] [address] [place] [address] Bilirubin [Mass/Vol] 0.3 mg/dL Normal 0.0 - 0.9 [facility] Comment on above: Performed By: #### C MP #### [facility] [address] [place] [address] Calcium [Mass/Vol] 9.6 mg/dL Normal 8.5 - 10.7 [facility] Comment on above: Performed By: #### C MP #### [facility] [address] [place] [address] Chloride [Moles/Vol] 103 mmol/L Normal 98 - 107 [facility] Comment on above: Performed By: #### C MP #### [facility] [address] [place] [address] Creatinine [Mass/Vol] 1.01 mg/dL Normal 0.60 - 1.10 [facility] Comment on above: Performed By: #### C MP #### [facility] [address] [place] [address] Glucose [Mass/Vol] 123 mg/dL High 74 - 99 [facility] Comment on above: Performed By: #### C MP #### [facility] [address] [place] [address] HCO3 (Bld) [Moles/Vol] 26 mmol/L Normal 18 - 27 [facility] Comment on above: Performed By: #### C MP #### [facility] [address] [place] [address] Potassium [Moles/Vol] 4.1 mmol/L Normal 3.5 - 5.3 [facility] Comment on above: Performed By: #### C MP #### [facility] [address] [place] [address] Protein [Mass/Vol] 7.0 g/dL Normal 6.2 - 7.7 [facility] Comment on above: Performed By: #### C MP #### [facility] [address] [place] [address] Sodium [Moles/Vol] 140 mmol/L Normal 136 - 145 [facility] Comment on above: Performed By: #### C MP #### [facility] [address] [place] [address] Urea nitrogen [Mass/Vol] 16 mg/dL Normal 6 - 23 [facility] Comment on above: Performed By: #### C MP #### [facility] [address] [place] [address] CT C-SPINE WO CONTRASTon CT C-SPINE WO CONTRAST Patient Name: CAMERON TERESA STUDY: CT HEAD WO CONTRAST; CT FACIAL BONES; CT C-SPINE WO CONTRAST; 08/31/2020 9:55 pm INDICATION: syncope, hit right side of face and head. COMPARISON: None. ACCESSION NUMBER(S): [id number]; [id number]; [id number] ORDERING CLINICIAN: FAHEEM LINDSAY TECHNIQUE: Axial noncontrast [...] malalignment. Electronically signed by: GORGE BRAXTON MD [facility] CT FACIAL BONESon 08-31-2020 CT FACIAL BONES Patient Name: CAMERON TERESA STUDY: CT HEAD WO CONTRAST; CT FACIAL BONES; CT C-SPINE WO CONTRAST; 08/31/2020 9:55 pm INDICATION: syncope, hit right side of face and head. COMPARISON: None. ACCESSION NUMBER(S): [id number]; [id number]; [id number] ORDERING CLINICIAN: FAHEEM LINDSAY TECHNIQUE: Axial noncontrast [...] malalignment. Electronically signed by: GORGE BRAXTON MD [facility] CT HEAD WO CONTRASTon 2020 CT HEAD WO CONTRAST Patient Name: CAMERON TERESA STUDY: CT HEAD WO CONTRAST; CT FACIAL BONES; CT C-SPINE WO CONTRAST; 08/31/2020 9:55 pm INDICATION: syncope, hit right side of face and head. COMPARISON: None. ACCESSION NUMBER(S): [id number]; [id number]; [id number] ORDERING CLINICIAN: FAHEEM LINDSAY TECHNIQUE: Axial noncontrast [...] malalignment. Electronically signed by: GORGE BRAXTON MD [facility] Provider Note - ED v2on 03-0 Provider [...] with sinus arrhythmia, ventricular rate 72 bpm, NC interval 146, QRS duration 86, QTc 387, [...] I did discuss with trauma surgery at main campus, Dr. Hopkins, who recommended MRI of the [...] to follow-up (more content not included)... Normal [facility] TROPONIN Ion 08-31-2020 Troponin I.cardiac [Mass/Vol] ng/mL Normal 0.00 - 0.03 [facility] Comment on above: Result Comment: LESS THAN [...] is performed using different testing methodology at [facility] than at other [facility]. Direct result comparisons should only be made within the same method. Performed By: #### T ROP2 #### [facility] [address] [place] [address] Triage - ED Pedson Triage - ED [...] normal position, moves easily FLACC Score: 0 George Coma Scale Peds (2yrs to Adult): Best Eye Response: (E4) spontaneous Best Verbal Response: (V5) oriented Best Motor Response: (M6) obeys commands Lorenza Coma Scale Score: 15 Cough Lasting Greater than 2 Weeks: no Allergies: no Mask Applied: yes Patient has Homicidal Thoughts: no Acuity Level: 2 Peds Complaint Code ([facility] N/A [facility] ABCD PRIMARY ASSESSMENT CAMERON TERESA's primary assessment is Within Defined Limits. The airway is open and patent. Breathing spontaneous and unlabored with clear breath sounds bilaterally. Circulation is normal with good peripheral pulses. Skin is warm and dry and color is normal for race. Alert and appropriate for age. RISK SCREEN [place] Suicide Risk Screen Risk Screen Not Applicable/Able [...] Past Medical History Reviewedyes Electronic Signatures: Magui Lam) (Signed 31-Aug-2020 20:03) Authored: Quick Triage, Risk Screens, Chart Review, Scores, Past Medical History Last Updated: 31-Aug-2020 20:03 by Magui Lam (AGUILA) Normal [facility] COMPLETE BLOOD COUNTon 08-19 Erythrocyte distribution width (RBC) [Ratio] 13.6 % Normal 11.5-14.5 [facility] Comment on above: Performed By: #### C BC #### [facility] [address] [place] [address], Hematocrit (Bld) [Volume fraction] 47.5 % Normal 37.0-49.0 [facility] Comment on above: Performed By: #### C BC #### [facility] [address] [place], [place], Hemoglobin (Bld) [Mass/Vol] 15.5 g/dL Normal 13.2-15.6 [facility] Comment on above: Performed By: #### C BC #### [facility] [address] [place] [address], MCH (RBC) [Entitic mass] 28.2 pg Normal 25.0-35.0 [facility] Comment on above: Performed By: #### C BC #### [facility] [address] [place] [address], MCHC (RBC) [Mass/Vol] 32.6 g/dL Normal 32.0-35.9 [facility] Comment on above: Performed By: #### C BC #### [facility] [address] [place] [address], MCV (RBC) [Entitic vol] 86 fL Normal 78-100 [facility] Comment on above: Performed By: #### C BC #### [facility] [address] [place], [place], Platelet mean volume (Bld) [Entitic vol] 9.6 fL Normal 7.5-11.2 [facility] Comment on above: Performed By: #### C BC #### [facility] [address] [place] [address], Platelets (Bld) [#/Vol] 155 10*3/uL Normal 150-400 [facility] Comment on above: Performed By: #### C BC #### [facility] [address] [place], [place], RBC (Bld) [#/Vol] 5.49 10*6/uL High 4.50-5.30 [facility] Comment on above: Performed By: #### C BC #### [facility] [address] [place], [place], WBC (Bld) [#/Vol] 4.6 10*3/uL Normal 4.5-13.0 [facility] Comment on above: Performed By: #### C BC #### [facility] [address] [place], [place], TSHon 08-19-2020 TSH Qn 2.625 uIU/mL Normal 0.700-6.000 [facility] Comment on above: Performed By: #### T SH HS #### [facility] [address] [place], [place], VITAMIN D, 25-HYDROXYon 07-29 VITD25 29.7 ng/mL Low 30.0-100.0 [facility] Comment on above: Performed By: #### V ITD25 #### [facility] [address] [place], [place], NURSING PROGon 06-10-2020 NURSING PROG HNO ID: [id number] Author: Mingo (Rn) AGUILA Neil Service: Nursing Author Type: Registered Nurse Type: Nursing Progress Note Filed: 06/10/2020 11:32 AM Note Text: Nursing Progress Note Patient Name: Cameron Teresa Patient Location: [id number]/[facility] -4505-00 Daily Note: Pt awake at 0800, standing [...] pt that our medical staff spoke with chan and bio Dad (guardians) and used that info to put mom information systems professor list and limit it to 1 call per day and no visits at this time. Pt mumbled that's bull shit after LIP left room. 1100- Pt is calm at this time and is in school. This note was completed by: Mingo Neil RN [facility] NURSING PROG HNO ID: [id number] Author: Sylwia BeckhamRn) AGUILA Jarvis Service: Nursing Author Type: Registered Nurse Type: Nursing Progress Note Filed: 06/10/2020 2:02 AM Note Text: Nursing Progress Note Patient Name: Cameron Teresa Patient Location: [id number]/[facility] -4505-00 Daily Note: Patient awake in room [...] note was completed by: Sylwia Jarvis RN [facility] PLAN OF CAREon 06-10-2020 PLAN OF CARE HNO ID: [id number] Author: Corrine Munoz Service: Psychiatry Author Type: [...] 06/09/20 Progress Towards Short Term Goals: Progressing Jail Goals: Identify positive alternatives to self-injurious behavior Target Date Jail Goals: 06/11/20 Progress Towards Jail Goals: Progressing Interventions - Nursing: Initiate safety [...] 06/09/20 Progress Towards Short Term Goals: Progressing Jail Goals: Identify positive alternatives to aggession Target Date Agile Business Analyst Goals: 06/11/20 Progress Towards Agile Business Analyst Goals: Progressing Interventions - Nursing: Remain calm and firmly set limits for the patient's behaviors;Administer medications as indicated and monitor patient for effect;Provide education to the patient and/or family about the disease process and management as appropriate Interventions - Social Work: Coordination with family;Coordination with outpatient providers Staff in attendance and in agreement with this plan: Attending: Dr. Munoz Resident: Dr Perez Physician Lawyer: Matthew Ellison Nurse: KEN Madsen, RN Wrist Hemmer: Linnea Hester Pharmacy: [facility] Recreational Therapy: Loly Chand This plan was reviewed with patient/family. Attending Psychiatrist: Dr. Munoz DOCUMENTED BY: Mingo Neil, RN PATIENT NAME: Cameron Teresa DATE: June 10, 2020 TIME: 11:17 AM PAGER/CONTACT #: [facility] SOCIAL WORKon 06-10-2020 SOCIAL WORK HNO ID: [id number] Author: Alvaro Mims (Sw) Service: Social Work Author Type: Wrist Hemmer Type: Social Work Filed: 06/10/2020 9:04 AM Note Text: CHILD AND ADOLESCENT PSYCHIATRY SOCIAL WORK ONGOING ASSESSMENT PATIENT NAME: Cameron Teresa AD[address]ESS: [address] [address] COUNTY: [place] ADMIT DATE: 06/06/2020 DATE of SERVICE: 06/10/2020 Cameron was discussed in treatment team. Cameron is ready for discharge at the time of this note. Collateral information collected: Plan is for patient to be transported via ambulance today to [facility] at 12:30pm picker/puller time. Spoke with step mother, Noa, to confirm discharge for today back to [facility] via ambulance, step mother confirmed this is the plan and did not have any other questions at this time. Follow-up: ? Inpatient Substance Abuse treatment/Psychiatry and therapy services Name:?Regina, therapist - Viki, planting supervisor? ext [phone] Agency: [facility] Location:?[address] [place] [address] Phone:? Appointment: June 10, 2020 at 1:30pm ? Current psychiatrist Name:?Dr. Benjamin Agency:?[facility] Location:?[place] Phone:?[phone] Next appointment: to be made after [facility] placement? ? Current therapist?(has not seen for several months due to IHBT AND [facility]) Name:?Millicent Sahni Agency:?[facility] Location:?[facility] Phone:?[phone] Next appointment confirmed???No - to be considered once treatment at [facility] is completed. ? [facility] from November to April Name:?[place] Agency:?[facility] Location:?[facility] Phone:?[phone] Next appointment: to made after [facility] placement ? [facility] and [facility] Name: Marielos Durbin Agency: [facility] ? ? ? Other residentials to consider after [facility] 1. Denny GAUTHIER located at?[address] [place] [address], phone:?[phone], ?[email or web address] 4. [facility], location: [place] Phone:?[phone] - parent must call to follow up 5. Claire located at?[address] [place] [address], phone: [phone], fax: [phone] 6. Briseyda located at?[address] [address], phone:? SIGNATURE: ORESTES Ornelas DATE of SERVICE: 06/10/2020 TIME of SERVICE: 8:[address] [facility] HNO ID: [id number] Author: Linnea (Therapist) Mendy Service: Music Therapy [...] schedule allows, ITP reviewed Therapist: Linnea Brooke [facility] HNO ID: [id number] Author: Pearl Chand (Ctrs) Service: Recreational Therapy Author Type: Therapist [...] affect was flat. ? Signature: Pearl Chand, NURSE CASE MANAGER Date: June 09, 2020 Time: 4:39 PM [facility] NURSING PROGon 06-09-2020 NURSING PROG HNO ID: [id number] Author: Migno BeckhamRn) AGUILA Neil Service: Nursing Author Type: Registered Nurse Type: Nursing Progress Note Filed: 06/09/2020 6:13 PM Note Text: Nursing Progress Note Patient Name: Cameron Teresa Patient Location: [id number]/[facility] Daily Note: Pt awake at 0830- ate [...] note was completed by: Mingo Neil RN [facility] NURSING PROG HNO ID: [id number] Author: Lauren BeckhamRn) AGUILA Núñez Service: Nursing Author Type: Registered Nurse Type: Nursing Progress Note Filed: 06/09/2020 2:53 AM Note Text: Nursing Progress Note Patient Name: Cameron Teresa Patient Location: [id number]/[facility] Daily Note: pt did not attend the [...] note was completed by: Lauren Núñez RN [facility] PLAN OF CAREon 06-09-2020 PLAN OF CARE HNO ID: [id number] Author: Corrine Munoz Service: Psychiatry Author Type: [...] 06/09/20 Progress Towards Short Term Goals: Progressing Agile Business Analyst Goals: Identify positive alternatives to self-injurious behavior Target Date Jail Goals: 06/11/20 Progress Towards Jail Goals: Progressing Interventions - Nursing: Initiate safety [...] 06/09/20 Progress Towards Short Term Goals: Progressing Jail Goals: Identify positive alternatives to aggession Target Date Jail Goals: 06/11/20 Progress Towards Jail Goals: Progressing Interventions - Nursing: Initiate safety [...] Attending: Dr. Munoz Resident: Dr. Perez Physician Lawyer: Matthew Ellison Nurse: KEN Madsen, RN Wrist Hemmer: Alvaro Power Pharmacy: [facility] Recreational Therapy: Loly Chand This plan was reviewed with patient/family. Attending Psychiatrist: Dr. Munoz DOCUMENTED BY: Mingo Neil RN PATIENT NAME: Cameron Teresa DATE: June 09, 2020 TIME: 10:02 AM PAGER/CONTACT #: [facility] ARNULFOon 06-09-2020 PROGRESS HNO ID: [id number] Author: Corrine Munoz Service: Pediatric Psychiatry Author [...] anticipate discharge on 06/10 [facility]. Active Hospital Problems Diagnosis Date Noted - [...] Overview Note: Currently in residential treatment at [facility]. Main drug of abuse currently = meth Last use 5-6 weeks ago PLAN: - determine appropriate outpatient planning (CD vs mood vs dual diagnosis) - consider use of medication to assist with persistent meth cravings - family currently reluctant -Accepted to [facility], likely anticipate discharge on 06/10 SUBJECTIVE Per [...] ALLERGIES No Known Allergies OBJECTIVE 06/06/206 06/07/20 0906/08/20 0918 06/09/20 0846 BP: 136/78 134/65 108/63 [...] 09, 2020 TIME of SERVICE: 9:29 AM [facility] STAFF: TEACHING PHYSICIAN NOTE OF PERSONAL [...] 2:15 PM Authenticated by responsible provider. __ [facility] SOCIAL WORKon 06-09-2020 SOCIAL WORK HNO ID: [id number] Author: Alvaro Mims (Sw) Service: Social Work Author Type: Wrist Hemmer Type: Social Work Filed: 06/09/2020 2:57 PM Note Text: CHILD AND ADOLESCENT PSYCHIATRY SOCIAL WORK ONGOING ASSESSMENT PATIENT NAME: Cameron Teresa ADDRESS: [address] [place], [place] [id number] COUNTY: [place] ADMIT DATE: 06/06/2020 DATE of SERVICE: 06/09/2020 Cameron was discussed in treatment team. Cameron is not ready for discharge at the time of this note. Collateral information collected: Spoke with Viki Cobb at [facility] who reports the patient has been at their agency 3x, they were talking with the patient on Tuesday about his desire to step down to the recovery housing and this led to the disagreement as staff at [facility] do not feel he is ready to step down yet. When ready to step down, patient would have more privileges, less staff monitoring in order to allow the patient to transition home eventually. [facility] staff do not think any residential placement afterwards would be of much use as the patients primary need is substance use and sobriety and could then see an out patient provider for mental health services. [facility] is willing to take the patient back into their program when he is ready for discharge from the hospital. Phone call to step mother/father who reports she would like patient to return to [facility] with the plan for referrals for mental health residential placements once he is completed with [facility]. Step mother would like referrals to be sent out to [facility] [place] [facility], [facility] and [facility]. Discussed the financial commitment that the family would be required to assist with,shazia hemphill reports [facility] is helping to fund [facility] in addition to the insurance coverage. [facility] is not accepting any new referrals for admissions at this time. [facility] Fu is not accepting patients over the age of 12 at this time. Faxed to [facility] [place], [facility] and called [facility] Phone call to [facility], message left for Viki to update her about discharge for Tuesday and to coordinate return to placement of patient. Phone call to Marielos Durbin at [facility], message left requesting a return call. Spoke with Christiano Adrianna who is in agreement with patient returning on Tuesday, will contact family to discuss discharge and transport plan. Spoke with step mother who reports the plan is for patient to return to [facility], via ambulance is the preferred method by the family. Also updated the referrals sent for residential placement. Mother requested the doctor call her for an update today, message shared with Dr Booker. Ambulance set for 12:30pm picker/puller on Tuesday to transport patient to [facility], family and ND are aware. Follow-up: ? Inpatient Substance Abuse treatment Name: Regina, therapist - Viki, planting supervisor ext [phone] Agency: [facility] Location: [id number] [place] [address] Appointment: returning back. ? Current psychiatrist Name:?Dr. Benjamin Agency:?[facility] Location:?[place] Phone:?[phone] Next appointment: to be made after [facility] placement ? Current therapist (has not seen for several months due to IHBT AND [facility]) Name:?Millicent Sahni Agency:?[facility] Location:?[place] Phone:?[phone] Next appointment confirmed???No ? IHBT from November to April Name:?[facility] Agency:?[facility] Location:?[place] Phone:?[phone] Next appointment: to made after [facility] placement [facility] Name: Marielos Durbin Agency: [facility] ? Other residentials to consider after [facility] 1. Denny GAUT[place]ER [place] [address] [facility] [place] [place] [address], phone: [phone], [email or web address] 2. Ayad Daniels located at [address] [facility], [place] [address], 3. Raheel [place] [address] [place] [address], 4. [facility], [place] [place] 5. [facility] located at [address] [place] [address], phone: [phone], fax: [phone] 6. [facility] located at [address] [place] [address], phone: SIGNATURE: ORESTES Ornelas DATE of SERVICE: 06/09/2020 TIME of SERVICE: 8:23 AM [facility] ALLIED HEALTHon 06-08-2020 ALLIED HEALTH HNO ID: [id number] Author: Fatuma Madden (Ctrs) Service: Recreational Therapy [...] Date: June 08, 2020 Time: 12:35 PM [facility] NURSING PROGon 06-08-2020 NURSING PROG HNO ID: [id number] Author: Mingo BeckhamRn) AGUILA Neil Service: Nursing Author Type: Registered Nurse Type: Nursing Progress Note Filed: 06/08/2020 6:02 PM Note Text: Nursing Progress Note Patient Name: Cameron Teresa Patient Location: [id number]/[facility]4505-00 Daily Note: Pt awake at 0800, cooperative [...] note was completed by: Mingo Neil RN [facility] NURSING PROG HNO ID: [id number] Author: Zaria BeckhamRn) AGUILA Nieto Service: Nursing [...] monitor q15min and review his [place] plan. [facility] PLAN OF CAREon 06-08-2020 PLAN OF CARE HNO ID: [id number] Author: Caroline Durand Service: Psychiatry Author Type: [...] Attending: Dr Durand Nurse: KEN Madsen, RN Wrist Hemmer: ORESTES Power This plan was reviewed with patient/family. Attending Psychiatrist: Dr. Durand DOCUMENTED BY: Mingo Neil RN PATIENT NAME: Cameron Teresa DATE: June 08, 2020 TIME: 5:58 PM PAGER/CONTACT #: [facility] PROGRESSon 06-08-2020 PROGRESS HNO ID: [id number] Author: Caroline Durand Service: Psychiatry Author Type: [...] Overview Note: Currently in residential treatment at [facility]. Main drug of abuse currently = meth [...] a overwhelmed parent case with CFS. Offered [facility] but she stated that they could not [...] 08, 2020 TIME of SERVICE: 6:13 PM [facility] SOCIAL WORKon 06-08-2020 SOCIAL WORK HNO ID: [id number] Author: Linnea Todd (Sw) Service: Social Work Author Type: Wrist Hemmer Type: Social Work Filed: 06/08/2020 3:10 PM Note Text: CHILD AND ADOLESCENT PSYCHIATRY SOCIAL WORK ONGOING ASSESSMENT PATIENT NAME: Cameron Teresa ADDRESS: [address] [facility] [address] COUNTY: [place] ADMIT DATE: 06/06/2020 DATE of SERVICE: 06/08/2020 Cameron was discussed in treatment team. Cameron is not ready for discharge at the time of this note. Treatment team: it is recommended that the [facility] to [facility] and then the family look into alterative residential treatment centers once [facility] is complete. The patient's insurance approved [facility], per the last 7th grade social studies teacher note. Spoke with chan. Discussed the options. They would like him to go back to [facility] and for this worker to refer him [...] a overwhelmed parent case with CFS. Offered [facility] but she stated that they could not afford this option. licensed social worker to follow up with chan and milton regarding any referrals to residential treatment centers. licensed social worker emailed Mary with [facility] asking if they would accept the patient back into their program at d/c. Follow up: Inpatient Substance Abuse treatment Name: Regina, therapist Giovany, planting supervisor Agency: [facility] Location: [id number] [place] [address] Appointment: returning back. Current psychiatrist Name: Dr. Benjamin Agency: [facility] Location: [place] Next appointment: to be made after [facility] placement ? Current therapist (has not seen for several months due to IHBT AND [facility]) Name: Millicent Sahni Agency: [facility] Location: [place] Next appointment confirmed? No ? IHBT from November to April Name: [facility] Agency: [facility] Location: [place] Next appointment: to made after [facility] placement ? Other residentials to consider after [facility] 1. Denny [place] [address] [facility] [place] [place] [address], phone: [phone], [email or web address] [email or web address] 2. Ayad Daniels located at [address] [facility], [place] [address], 3. Raheel [place] [address] [place] [address], 4. [facility], location: [place] 5. [facility] located at [address] [place] [address], phone: [phone], fax: [phone] 6. [facility] located at [address] [address], phone: SIGNATURE: SUSAN Foley DATE of SERVICE: 06/08/2020 TIME of SERVICE: 12:07 PM [facility] 06-07-2020 ALLIED HEALTH HNO ID: [id number] Author: Fatuma Madden (Ctrs) Service: Recreational Therapy [...] a secondary emotion experienced to anger. Signature: CECY VeraS Date: June 07, 2020 Time: 1:51 PM [facility]IED [facility] HNO ID: [id number] Author: Fatuma Madden (Ctrs) Service: Recreational Therapy [...] up and work on completion throughout admission. [facility] ALLIED HEALTH HNO ID: [id number] Author: Fatuma Madden (Ctrs) Service: Recreational Therapy [...] music, spending time with family, working at [employer] PATIENT'S GOALS FOR RECREATIONAL THERAPY PROGRAM: being stable on my new meds Recreational Therapy Recommendations: Pt will practice utilizing effective coping skills through engaging in therapeutic activity. Pt will practice expressing thoughts/feelings/em otions appropriately through engaging in therapeutic activity. GENERAL OBSERVATIONS: Clean and groomed Communicates easily Cooperative Good attitude Oriented Pleasant Signature: DORI Vera Date: June 07, 2020 Time: 12:25 PM [facility] CBC and Differentialon 06-07 Abs Baso <0.03 Normal <0.11 [facility] Comment on above: Performed By: #### C MP, CBCDIF, TSH, LIPB ####[place] [address]#### HBA1C ####[place] [address] [address] [place] [address] Abs Hampton 0.38 k/uL Normal <0.87 [facility] Comment on above: Performed By: #### C MP, CBCDIF, TSH, LIPB ####[place] [address]#### HBA1C ####[place] [address] [address] [place] [address] Abs Neut 2.70 k/uL Normal 1.45-7.50 [facility] Comment on above: Performed By: #### C MP, CBCDIF, TSH, LIPB ####[place] [address]#### HBA1C ####[place] [address] [address] [place] [phone] Absolute nRBC <0.01 Normal <0.01 [facility] Comment on above: Performed By: #### C MP, CBCDIF, TSH, LIPB ####[place] [address]#### HBA1C ####[place] [address] Basophils/100 WBC (Bld) 0.2 % Normal [facility] Comment on above: Performed By: #### C MP, CBCDIF, TSH, LIPB ####[place] [address]#### HBA1C ####[place] [address] [address] [place] [phone] DTYPE Auto Diff Normal [facility] Comment on above: Performed By: #### C MP, CBCDIF, TSH, LIPB ####[place] [address]#### HBA1C ####[place] [address] [address] [place] [phone] Eosinophils (Bld) [#/Vol] 0.05 10*3/uL Normal <0.46 [facility] Comment on above: Performed By: #### C MP, CBCDIF, TSH, LIPB ####[place] [address]#### HBA1C ####[place] [address] [address] [place] [address] Eosinophils/100 WBC (Bld) 1.1 % Normal [facility] Comment on above: Performed By: #### C MP, CBCDIF, TSH, LIPB ####[place] [address]#### HBA1C ####[place] [address] [address] [place] [address] Erythrocyte distribution width (RBC) [Ratio] 12.6 % Normal 11.5-15.0 [facility] Comment on above: Performed By: #### C MP, CBCDIF, TSH, LIPB ####[place] [address]#### HBA1C ####[place] [address] [address] [place] [phone] Hematocrit (Bld) [Volume fraction] 47.4 % Normal 39.0-51.0 [facility] Comment on above: Performed By: #### C MP, CBCDIF, TSH, LIPB ####[place] [address]#### HBA1C ####[place] [address] [address] AveClevelAmanda [place] [phone] Hemoglobin (Bld) [Mass/Vol] 15.9 g/dL Normal 13.0-17.0 [facility] Comment on above: Performed By: #### C MP, CBCDIF, TSH, LIPB ####[place] [address]#### HBA1C ####[place] [address] [address] [place] [phone] Lymphocytes (Bld) [#/Vol] 1.35 10*3/uL Normal 1.00-4.00 [facility] Comment on above: Performed By: #### C MP, CBCDIF, TSH, LIPB ####[place] [address]#### HBA1C ####[place] [address] [address] [place] [phone] Lymphocytes/100 WBC (Bld) 30.0 % Normal [facility] Comment on above: Performed By: #### C MP, CBCDIF, TSH, LIPB ####[address]#### HBA1C ####[place] [address] [address] [place] [phone] MCH (RBC) [Entitic mass] 29.0 pG Normal 26.0-34.0 [facility] Comment on above: Performed By: #### C MP, CBCDIF, TSH, LIPB ####[place] [address]#### HBA1C ####[place] [address] [address] [place] [phone] MCHC (RBC) [Mass/Vol] 33.5 g/dL Normal 30.5-36.0 [facility] Comment on above: Performed By: #### C MP, CBCDIF, TSH, LIPB ####[place] [address]#### HBA1C ####[place] [address] [address] [place] [phone] MCV (RBC) [Entitic vol] 86.3 fL Normal 80.0-100.0 [facility] Comment on above: Performed By: #### C MP, CBCDIF, TSH, LIPB ####[address]#### HBA1C ####[place] [address] [address] [place] [phone] Monocytes/100 WBC (Bld) 8.4 % Normal [facility] Comment on above: Performed By: #### C MP, CBCDIF, TSH, LIPB ####[address]#### HBA1C ####[place] [address] [address]ClevelAmanda [place] [phone] Neutrophils/100 WBC (Bld) 60.3 % Normal [facility] Comment on above: Performed By: #### C MP, CBCDIF, TSH, LIPB ####[address]#### HBA1C ####[place] [address] [address]ClevelAmanda [place] [phone] NRBCs 0.0 /100 WBC Normal 0 [facility] Comment on above: Performed By: #### C MP, CBCDIF, TSH, LIPB ####[address]#### HBA1C ####[place] [address] [address]ClevelAmanda [place] [phone] Platelet mean volume (Bld) [Entitic vol] 11.2 fL Normal 9.0-12.7 [facility] Comment on above: Performed By: #### C MP, CBCDIF, TSH, LIPB ####[place] [address]#### HBA1C ####[place] [address] [address]ClevelAmand[address] [place] [phone] Platelets (Bld) [#/Vol] 165 10*3/uL Normal 150-400 [facility] Comment on above: Performed By: #### C MP, CBCDIF, TSH, LIPB ####[place] [address]#### HBA1C ####[place] [address] [address] [place] [phone] RBC (Bld) [#/Vol] 5.49 10*6/uL Normal 4.20-6.00 [facility] Comment on above: Performed By: #### C MP, CBCDIF, TSH, LIPB ####[place] [address]#### HBA1C ####[place] [phone] WBC (Bld) [#/Vol] 4.50 10*3/uL Normal 3.70-11.00 [facility] Comment on above: Performed By: #### C MP, CBCDIF, TSH, LIPB ####[place] [address]#### HBA1C ####[place] [address] [address] [place] [phone] Comp Metabolic Panelon 06-07 Albumin [Mass/Vol] 4.3 g/dL Normal 3.5-5.0 [facility] Comment on above: Performed By: #### C MP, CBCDIF, TSH, LIPB ####[place] [address]#### HBA1C ####[place] [phone] ALP [Catalytic activity/Vol] 146 U/L Normal 82-331 [facility] Comment on above: Result Comment: Refe [...] By: #### C MP, CBCDIF, TSH, LIPB ####[address]#### HBA1C ####[place] [address] [address] [place] [phone] ALT [Catalytic activity/Vol] 12 U/L Normal 5-50 [facility] Comment on above: Performed By: #### C MP, CBCDIF, TSH, LIPB ####[place] [address]#### HBA1C ####[place] [address] [address] [place] [phone] Anion gap [Moles/Vol] 9 mmol/L Normal 9-18 [facility] Comment on above: Performed By: #### C MP, CBCDIF, TSH, LIPB ####[address]#### HBA1C ####[place] [phone] AST [Catalytic activity/Vol] 15 U/L Normal 7-40 [facility] Comment on above: Performed By: #### C MP, CBCDIF, TSH, LIPB ####[address]#### HBA1C ####[place] [address] [address] [place] [phone] Bilirubin [Mass/Vol] 0.4 mg/dL Normal 0.2-1.3 [facility] Comment on above: Result Comment: (NOT E) Reference ranges for this patient's age group have not been established. These reference ranges reflect verified or established ranges for the adult population. Interpret these ranges with caution using the clinical context and additional reference resources. Performed By: #### C MP, CBCDIF, TSH, LIPB ####[place] [address]#### HBA1C ####[facility]CCatherine [place] [phone] Calcium [Mass/Vol] 9.8 mg/dL Normal 8.5-10.5 [facility] Comment on above: Performed By: #### C MP, CBCDIF, TSH, LIPB ####[place] [address]#### HBA1C ####[place] [address] [address] [place] [phone] Chloride [Moles/Vol] 106 mmol/L Normal 98-110 [facility] Comment on above: Performed By: #### C MP, CBCDIF, TSH, LIPB ####[place] [address]#### HBA1C ####[place] [address] [address] [place] [phone] CO2 [Moles/Vol] 25 mmol/L Normal 23-32 [facility] Comment on above: Performed By: #### C MP, CBCDIF, TSH, LIPB ####[place] [address]#### HBA1C ####[place] [address] [address] [place] [phone] Creatinine [Mass/Vol] 1.03 mg/dL Normal 0.40-1.30 [facility] Comment on above: Performed By: #### C MP, CBCDIF, TSH, LIPB ####[place] [address]#### HBA1C ####[place] [address] [address] [place] [phone] Glucose [Mass/Vol] 102 mg/dL High 65-100 [facility] Comment on above: Performed By: #### C MP, CBCDIF, TSH, LIPB ####[place] [address]#### HBA1C ####[place] [address] [address] [place] [phone] Potassium [Moles/Vol] 4.1 mmol/L Normal 3.5-5.0 [facility] Comment on above: Performed By: #### C MP, CBCDIF, TSH, LIPB ####[place] [address]#### HBA1C ####[place] [address] [address] [place] [phone] Protein [Mass/Vol] 7.0 g/dL Normal 6.0-8.4 [facility] Comment on above: Performed By: #### C MP, CBCDIF, TSH, LIPB ####[place] [address]#### HBA1C ####[place] [phone] Sodium [Moles/Vol] 140 mmol/L Normal 135-146 [facility] Comment on above: Performed By: #### C MP, CBCDIF, TSH, LIPB ####[place] [address]#### HBA1C ####[place] [address] [address] [place] [phone] Urea nitrogen [Mass/Vol] 15 mg/dL Normal 5-20 [facility] Comment on above: Performed By: #### C MP, CBCDIF, TSH, LIPB ####[place] [address]#### HBA1C ####[place] [address] [address] [place], [place] [phone] ED NOTEon 06-07-2020 ED NOTE HNO ID: [id number] Author: Zara (Rn) AGUILA Enciso Service: ? Author Type: Registered Nurse Type: ED Notes Filed: 06/06/2020 10:21 PM Note Text: Report given to transport team [facility] HISTORY PHYSICALon 0 HISTORY PHYSICAL HNO ID: [id number] Author: Caroline Durand Service: Psychiatry Author Type: [...] currently in residential substance use treatment at [facility] with several previous psychiatric admissions ([facility] in [facility] 2020 and in [facility], and in June 2019) admitted to Inpatient Psychiatry for SI with multiple plans (running into traffic, ODing on OTC medications, or jumping off ledge at [facility]). Family history is significant for mother with ROSITA (currently sober), anxiety, depression, borderline personality disorder. The developmental history is significant for stressors during and meeting all milestones. Previous medications trials were limited to: Zoloft, Prozac, Lexapro, Wellbutrin, Abilify, Vistaril Cameron lives with bio dad, step-mom, and paternal younger half-siblings in [place], [place]. In terms of stressors, patient's family [...] family. When not in residential treatment at [facility], he lives with bio dad, stepmother (in [...] of Prozac, Zoloft, Lexapro, Wellbutrin PLAN: - 12/13: start Effexor 37.5 mg daily - PTSD [...] Overview Note: Currently in residential treatment at [facility]. Main drug of abuse currently = meth Last use 5-6 weeks ago PLAN: - determine appropriate outpatient planning (CD vs mood vs dual diagnosis) - consider use of medication to assist with persistent meth cravings - family currently reluctant HISTORY OF PRESENT ILLNESS CHIEF COMPLAINT(S) Suicidal ideation Per patient report: Cameron reports that he was having a normal day at [facility] yesterday. He states that he was speaking [...] Per caregiver, Héctor and step mom Noa ([phone]): The situation leading up to admission began when Cameron had requested that [facility] allow him to go to recovery housing, a lower level of care, in spite of his not going to therapy or school during the duration of his time at [facility]. Caregivers refused the change in [...] had denied anxiety, depression, and SI to [facility]. There have been reports that there have been increased behavioral problems at [facility], however - and family attributes this to Cameron's determining that he can get his way if he threatens people. Family is acutely aware of manipulative behaviors and comments - they have completed intense parenting classes and completed [facility] program (November to April 2020). He has only spoken to his family once in the past month at [facility], and, at that time, he [...] family. No pediatric history on file. //Post anson Hx: was unremarkable There were [...] Patient is currently in residential treatment at [facility] ? - Current psychiatrist? Yes Name: Dr. Benjamin Agency: [facility] Location: [place] Next appointment confirmed? No ? - Current therapist? Yes, has not seen for several months due to IHBT AND [facility] Name: Millicent Sahni Agency: [facility] Location: [place] Next appointment confirmed? No ? - Other community support providers? Yes, IHBT from November to April Name: [facility] Agency: [facility] Location: [place] Next appointment confirmed? No ? - School contact? No - Previous psychiatric hospitalizations? Yes, [facility] in January 2020 and in twice in 2018, and [facility] in June 2019 - Previous psychiatric medication [...] Social Work Assessment completed by Vanessa Purvis LITHOGRAPH PRINTER [id number] reviewed as needed with patient and family. He lives with bio father, step mother (Noa), 4yo paternal half brother, and 8yo paternal half sister in [place], [place]. - Other pertinent family members? Yes: [...] is a hearing in June 2020. OBJECTIVE 06/06/20 2326 06/07/20 0920 BP: 136/78 134/65 Pulse: 60 [...] and alcohol use. We will consult medical affairs director to manage any physical complaints or symptoms [...] for Implementation of NPSG 15A by [facility] Resources SIGNATURE: Astrid Villatoro MD DATE of SERVICE: 06/07/2020 TIME of SERVICE: 11:22 AM [facility] STAFF PHYSICIAN NOTE OF PERSONAL INVOLVEMENT IN [...] 14 year old male who presents from [facility] after 5 weeks of treatment for Meth [...] his parents in the 4 weeks at [facility] we had a very bad [...] counseling and/or coordinating care for the patient. [id number]-tx-[id number] time was 60 minutes SIGNATURE: Caroline Durand MD PAGER: [phone] DATE of SERVICE: June 07, 2020 TIME of SERVICE: 6:21 PM Normal [facility] Hemoglobin A1con 06-07-2020 HbA1c (Bld) [Mass fraction] 5.5 % Normal 4.3-5.6 [facility] Comment on above: Result Comment: Amer ican Diabetes Association guidelines indicate that patients with HgbA1c in the range 5.7-6.4% are at increased risk for development of diabetes, and intervention by lifestyle modification may be beneficial. HgbA1c greater or equal to 6.5% is considered diagnostic of diabetes. Performed By: #### C MP, CBCDIF, TSH, LIPB ####[facility] [place] [address]#### HBA1C ####[facility]CC[address] [place] [phone] HbA1c (Bld) [Mass fraction] 111 mg/dL Normal [facility] Comment on above: Result Comment: eAG: (Estimated average glucose) is a calculated value from HgbA1c and is solar manufacturer's representative of the average blood glucose level in the last 2-3 month period. Performed By: #### C MP, CBCDIF, TSH, LIPB ####[place] [address]#### HBA1C ####[place] [address] [address] [place] [phone] Lipid Panel, [facility] 020 Cholesterol [Mass/Vol] 119 mg/dL Normal <170 [facility] Comment on above: Performed By: #### C MP, CBCDIF, TSH, LIPB ####[place] [address]#### HBA1C ####[facility] [phone] Cholesterol in HDL [Mass/Vol] 43 mg/dL Low >45 [facility] Comment on above: Performed By: #### C MP, CBCDIF, TSH, LIPB ####[place] [address]#### HBA1C ####[facility] [phone] Cholesterol in LDL [Mass/Vol] 61 mg/dL Normal <110 [facility] Comment on above: Performed By: #### C MP, CBCDIF, TSH, LIPB ####[place] [address]#### HBA1C ####[place] [address] [phone] LDL:HDL Ratio 1.42 Normal <2.42 [facility] Comment on above: Performed By: #### C MP, CBCDIF, TSH, LIPB ####[place] [address]#### HBA1C ####[place] [address] [place] [phone] Non HDL Cholesterol 76 mg/dL Normal <120 [facility] Comment on above: Performed By: #### C MP, CBCDIF, TSH, LIPB ####[place] [address]#### HBA1C ####[place] [address] TC:HDL Ratio 2.77 Normal <3.76 [facility] Comment on above: Performed By: #### C MP, CBCDIF, TSH, LIPB ####[place] [address]#### HBA1C ####[place] [address] Triglyceride [Mass/Vol] 76 mg/dL Normal <90 [facility] Comment on above: Performed By: #### C MP, CBCDIF, TSH, LIPB ####[place] [address]#### HBA1C ####[place] [address] VLDL Cholesterol 15 mg/dL Normal <18 [facility] Comment on above: Performed By: #### C MP, CBCDIF, TSH, LIPB ####[place] [address]#### HBA1C ####[place] [address] [address] [place] [phone] NURSING PROGon 06-07-2020 NURSING PROG HNO ID: [id number] Author: Mingo (Rn) Rashaad, RN Service: Nursing Author Type: Registered Nurse Type: Nursing Progress Note Filed: 06/07/2020 5:43 PM Note Text: Nursing Progress Note Patient Name: Cameron Teresa Patient Location: [id number]/[facility] -4505-00 Daily Note: Pt awake at 0800, polite and cooperative with staff. Pt assessed with C-SSRS, scoring low risk for suicide- therefore standard precautions maintained. Pt inquired about getting a big book from to read here- staff inquiring. Pt interested in attending groups, and expecting parent to visit today. Pt wanting to have bio mom information systems professor and/or visiting list- will review with team. 0930- Pt given big book and 06/07 book to read. 1100- Pt sleeping at this time. 1400- Pt informed that bio Mom on list for him to call her. 1600- Pt attended nursing group. Minimal participation noted. This note was completed by: Mingo Neil RN [facility] NURSING PROG HNO ID: [id number] Author: Zaria Salcedo (Rn) AGUILA Nieto Service: Nursing Author Type: Registered Nurse Type: Nursing Progress Note Filed: 06/07/2020 3:22 AM Note Text: IP NURSING BEHAVIORAL HEALTH PEDIATRIC ADMISSION NOTE Cameron Teresa [id number] Cameron Teresa is a 14 year old, male Admitted to [facility] Counselor Community Psychiatrist Pediatrics General Admission Time of [...] Obvious Sexual Activity (Have you ever had-?): Banquete Substance use (Have you ever tried-?): Tobacco, Alcohol, Street drugs, Inhalants(Been a month d/t in [facility]) Patient Response to Hospitalization: Other: See Comment( Numb ) Privacy Questions Sexual Activity (Have you ever had-?): Banquete Substance use (Have you ever tried-?): Tobacco, Alcohol, Street drugs, Inhalants(Been a month d/t in [facility]) Behavioral Assessment Behavioral Summary~ Pt admitted 04/06/2020 at 2310 with MDD and SI. He has been residing at [facility] for the past month after running away from home when they found out he stole money from his siblings to buy drugs. 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 He has been implying to his therapist that he will kill himself if he cant stay sober. He has multiple plans including running into traffic, OD'ing on OTC meds or jumping off a ledge at [facility]. He has had stays at [facility] and . Currently not on medication. Suicide/Homicide Assessment Zaria Edwards RN [facility] PLAN OF CAREon 06-07-2020 PLAN OF CARE HNO ID: [id number] Author: Caroline Durand Service: Psychiatry Author Type: [...] Resident: Dr. Villatoro Nurse: Margarita Falcon RN Wrist Hemmer: ORESTES Ngo This plan was reviewed with patient/family. Attending Psychiatrist: DOCUMENTED BY: Mingo Neil RN PATIENT NAME: Cameron Teresa DATE: June 07, 2020 TIME: 11:01 AM PAGER/CONTACT #: [facility] SOCIAL WORKon 06-07-2020 SOCIAL WORK HNO ID: [id number] Author: Vanessa Purvis (Sw) Service: Social Work Author Type: Wrist Hemmer Type: Social Work Filed: 06/07/2020 2:24 PM Note Text: CHILD AND ADOLESCENT PSYCHIATRY SOCIAL WORK INITIAL ASSESSMENT PATIENT NAME: Cameron Teresa ADDRESS: [address] [place] [address] [facility]: [facility]/2020 DATE of SERVICE: 06/07/2020 DEMOGRAPHIC ADMISSION DATA Accompanied by no one Custody: biologic father (patient has some contact with bio mother) Family Contact Information: - biologic father's cell number: Héctor [phone] *step mom (Noa) is very involved and [...] Psychiatry for SI. Patient has been at [facility] for the past month (this is his [...] Patient is currently in residential treatment at [facility] - Current psychiatrist? Yes Name: Dr. Benjamin Agency: [facility] Location: [place] Next appointment confirmed? No - Current therapist? Yes, has not seen for several months due to IHBT AND [facility] Name: Millicent Sahni Agency: [facility] Location: [place] Next appointment confirmed? No - Other community support providers? Yes, [facility]HBT from November to April Name: Germain Agency: [place] Location: [place] Next appointment confirmed? No - School contact? [...] brother, and 8yo paternal half sister in [place], [place]. - Other pertinent family members? Yes: [...] health focused residential instead of returning to [place]. They have spoken to the insurance and Emeli Daniels are in network. Parents would like team's input as to whether pt should return to [place] or go to other residential. PLAN: - licensed social worker spoke with the patient's caregiver and [...] 06/07/2020 TIME of SERVICE: 11:30 AM Normal [facility] TSHon 06-07-2020 TSH Qn 1.700 uU/mL Normal 0.510-4.300 [facility] Comment on above: Result Comment: Refe rence ranges were not locally established for this patient's age group. The normal values are based on the following source: Phil Block V. Reference Ranges for Adults and Children: Pre-analytical Considerations. [facility] Performed By: #### C MP, CBCDIF, TSH, LIPB ####[place] [phone]#### HBA1C ####[facility] [address] [place], [place] [phone] Urinalysison 06-07-2020 Bilirubin, Urine Negative Normal Negative [facility] Comment on above: Performed By: #### U A ####[place] [phone] Clarity (U) Clear Normal Clear [facility] Comment on above: Performed By: #### U A ####[place] [phone] Color (U) Colorless Critically abnormal Yellow [facility] Comment on above: Performed By: #### U A ####[place] [phone] Comments SEE COMMENT Normal [facility] Comment on above: Result Comment: Micr oscopic not warranted Performed By: #### U A ####[place] [phone] Glucose Ql (U) Negative Normal Negative [facility] Comment on above: Performed By: #### U A ####[place] [phone] Hemoglobin/Blood,Ur Negative Normal Negative [facility] Comment on above: Performed By: #### U A ####[place] [phone] Ketones Ql (U) Negative Normal Negative [facility] Comment on above: Performed By: #### U A ####[place] [phone] Leukest Negative Normal Negative [facility] Comment on above: Performed By: #### U A ####[place] [phone] Nitrite Ql (U) Negative Normal Negative [facility] Comment on above: Performed By: #### U A ####[place] [phone] pH (Bld) 6.0 Normal 5.0-8.0 [facility] Comment on above: Performed By: #### U A ####[place] [phone] Protein (U) [Mass/Vol] Negative Normal Negative [facility] Comment on above: Performed By: #### U A ####[place] [phone] Specific Dennis, Ur 1.014 Normal 1.005-1.030 [facility] Comment on above: Performed By: #### U A ####[place] [phone] Urobilinogen Qn (U) Negative Normal Negative [facility] Comment on above: Performed By: #### U A ####[address] [phone] ALLIED HEALTHon 06-06-2020 ALLIED HEALTH HNO ID: [id number] Author: America Bravo (Lsw) Service: ? Author Type: Counselor Type: Allied Health Filed: 06/06/2020 8:26 PM Note Text: Step 5: Documentation Risk Level : Suicide Risk ( Initial Screening):: High Risk Actual risk determined to be : High Clinical Observation: Depression, Anxiety and SI with a multiple plans Relevant Mental Status Evaluation: SI with multiple plans Methods of Suicide Risk Evaluation: [place] AND Safe-T Brief Evaluation Summary: Warning Signs: [...] Medical Providers: Ricki Vazquez Date 06/06/2020 Psychiatrist information systems professor: Name: Dr. Durand Date: 06/06/2020 Time: 6:58pm Other Contact and Role: N/A [facility] ED NOTEon 06-06-2020 ED NOTE HNO ID: [id number] Author: TAN Cardona (Pcna) Service: ? Author Type: Patient Care Uke Operator Type: ED Notes Filed: 06/06/2020 8:30 PM Note Text: Pt used bathroom. [facility] ED NOTE HNO ID: [id number] Author: TAN Cardona (Pcna) Service: ? Author Type: Patient Care Uke Operator Type: ED Notes Filed: 06/06/2020 7:48 PM Note Text: Pt ate all of food. [facility] ED NOTE HNO ID: [id number] Author: TAN Cardona (Pcna) Service: ? Author Type: Patient Care Uke Operator Type: ED Notes Filed: 06/06/2020 7:42 PM Note Text: Pt given meal tray, pizza, fries, apple juice cup and Gatorade. [facility] ED NOTE HNO ID: [id number] Author: TAN Cardona (Pcna) Service: ? Author Type: Patient Care Uke Operator Type: ED Notes Filed: 06/06/2020 7:16 PM Note Text: Urine sent to lab. [facility] ED NOTE HNO ID: [id number] Author: TAN Cardona (Pcna) Service: ? Author Type: Patient Care Uke Operator Type: ED Notes Filed: 06/06/2020 7:15 PM Note Text: Urine obtained. [facility] ED NOTE HNO ID: [id number] Author: Zara Enciso RN Service: ? Author Type: Registered Nurse Type: ED Notes Filed: 06/06/2020 6:57 PM Note Text: covid swab obtained and walked to lab [facility] ED NOTE HNO ID: [id number] Author: Zara Enciso RN Service: ? Author Type: Registered Nurse Type: ED Notes Filed: 06/06/2020 6:27 PM Note Text: [facility] ED NOTE HNO ID: [id number] Author: TAN Cardona (Pcna) Service: ? Author Type: Patient Care Uke Operator Type: ED Notes Filed: 06/06/2020 6:17 PM Note Text: Pt on phone with America from intake. [facility] ED NOTE HNO ID: [id number] Author: Crista BeckhamRn) AGUILA Bradshaw Service: ? Author Type: Registered Nurse Type: ED Notes Filed: 06/06/2020 6:02 PM Note Text: Sitter at bedside [facility] ED NOTE HNO ID: [id number] Author: Zara BeckhamRn) AGUILA Enciso Service: ? Author Type: Registered Nurse Type: ED Notes Filed: 06/06/2020 5:48 PM Note Text: MD @ bedside. [facility] ED NOTE HNO ID: [id number] Author: Crista Cardenas) AGUILA Bradshaw Service: ? Author Type: Registered Nurse Type: ED Notes Filed: 06/06/2020 5:48 PM Note Text: Verbal consent obtained by registration from step mother Noa Teresa via phone pt lives with her and pts biological father. Pts biological mother Dimple nava [facility] ED NOTE HNO ID: [id number] Author: Zara BeckhamRn) AGUILA Enciso Service: ? Author Type: Registered Nurse Type: ED Notes Filed: 06/06/2020 10:21 PM Note Text: Pt changed into gown. Clothing and shoes placed in bag and labeled. Placed at nurses' station. Camera on and back door locked. [facility] ED NOTE HNO ID: [id number] Author: Benedict BeckhamRn) AGUILA Freeman Service: ? Author Type: Registered Nurse Type: ED Notes Filed: 06/06/2020 5:35 PM Note Text: Back room door locked. [facility] ED NOTE HNO ID: [id number] Author: Benedict BeckhamRn) AGUILA Freeman Service: ? Author Type: Registered Nurse Type: ED Notes Filed: 06/06/2020 5:34 PM Note Text: Security at bedside to wand pt. [facility] ED NOTE HNO ID: [id number] Author: Crista (Rn) AGUILA Bradshaw Service: ? Author Type: Registered Nurse Type: ED Notes Filed: 06/06/2020 5:29 PM Note Text: Bed: [facility]12 Expected date: 06/06/20 Expected time: 5:12 PM Means of arrival: Latesha Urbina FD Comments: 14 y/o SI - [facility] ED NOTE HNO ID: [id number] Author: Benedict BeckhamRn) AGUILA Freeman Service: ? Author Type: Registered Nurse Type: ED Notes Filed: 06/06/2020 5:32 PM Note Text: Pt came by EMS for SI. Pt states he had 3 plans. 1- pt states wanted to leave rehab and jump in front of car. 2- leave rehab and go to [facility] and steal medications such as Acetaminophen and overdose. 3- leave rehab and go to [facility] and jump off of ledge. Pt states that he has had this plan for awhile but pain becoming too much (emotional), states family problems, urges and trauma. [facility] ED PROV NOTEon 06-06-2020 ED PROV NOTE HNO ID: [id number] Author: Ricki Vazquez MD Service: Emergency Medicine Author Type: Physician Type: ED Provider Notes Filed: 06/06/2020 9:55 PM Note Text: ED Provider Note Patient Name: Cameron Teresa SERVICE DATE: 06/06/20 History Patient presents with: Suicidal Ideation HPI 14-year-old male with anxiety and depression here with suicidal ideation. Patient reports that he has been at [facility], drug rehab program. He has [...] these as he is not supervised at [facility]. Reports he was addicted to meth but [...] Result Value Ref Range COVID 19 Source [employer] UPPER RESPIRATORY TRACT SWAB COVID 19 Result [employer] PRESIDENT Negative for COVID19 (SARS CoV2) by PCR. Negative for COVID19 (SARS CoV2) by PCR. Procedures ED Course / Clinical Impression Clinical Impressions as of Jun 06 2155 Depression, unspecified depression type COVID-19 ruled out by laboratory testing Anxiety COVID-19 test performed per [facility] [place] policy for suspected COVID community exposure. MDM / Disposition / Plan MDM 14-year-old male with anxiety, depression, substance abuse, currently in residential rehab program presenting with suicidal ideation. Patient has no medical complaints and denies any recent drug use. Vitals are age-appropriate and he is tolerating p.o. Rapid Covid and a urine drug (more content not included)... Normal [facility] Expedited [id number] 06-06-20 20 SARS-CoV-2 (COVID-19) RNA JERRELL+probe Ql (Unsp spec) UPPER RESPIRATORY TRACT SWAB Normal [facility] SARS-CoV-2 (COVID-19) RNA JERRELL+probe Ql (Unsp spec) Negative Normal Negative for COVID19 (SARS CoV2) by PCR. [facility] Comment on above: Result Comment: This test has been authorized by FDA under an Emergency Use Authorization (EUA). Toxicology Screen,Uron 06-06 Amphetamines, Urine Negative Normal Negative [facility] Comment on above: Result Comment: Cuto ff threshold at 1000 ng/mL. Barbiturates, Urine Negative Normal Negative [facility] Comment on above: Result Comment: Cuto ff threshold at 200 ng/mL. Benzodiazepines, Ur Negative Normal Negative [facility] Comment on above: Result Comment: Cuto ff threshold at 200 ng/mL. Cannabinoids, Urine Negative Normal Negative [facility] Comment on above: Result Comment: Cuto ff threshold at 50 ng/mL. Cocaine, Urine Negative Normal Negative [facility] Comment on above: Result Comment: Cuto ff threshold at 300 ng/mL. Ethanol, Urine <11 Normal <11 [facility] Opiates, Urine Negative Normal Negative [facility] Comment on above: Result Comment: Cuto ff threshold at 300 ng/mL. Oxycodone, Urine Negative Normal Negative [facility] Comment on above: Result Comment: Cuto [...] on the same specimen through Client Services ([phone]) if contacted within 48 hours of initial testing. [1]Substance Abuse and Mental Health Services Administration (2012). Clinical Drug Testing in Primary Care Technical Assistance Publication Series 32. Department of Health and Human Services, [place], p.10. Phencyclidine, Urine Negative Normal Negative [facility] Comment on above: Result Comment: Cuto ff threshold at 25 ng/mL. Vital Signs Date Time Vital Sign Value Performing Clinician Facility 11-14-2023 03:30-0400 Diastolic blood pressure 72 mm[Hg[facility] 11-14-2023 03:30-0400 Heart rate 104 /min HEAD OF INS[facility] Work Phone: [facility] 11-14-2023 03:30-0400 Respiratory rate 18 /min [facility] Work Phone: [facility] 11-14-2023 03:30-0400 SaO2% (BldA) [Mass fraction] 98 % [facility] 11-14-2023 03:30-0400 Systolic blood pressure 124 mm[Hg] ALECIA Dorsey Work Phone: [facility] 11-14-2023 02:12-0400 Body height 198.12 cm HEAD OF INSIGHTMary Jo Dorsey Work Phone: [facility] 11-14-2023 02:12-0400 Body temperature 98.6 [degF] HEAD OF INSIGHTMary Jo Dorsey Work Phone: [facility] 11-14-2023 02:12-0400 Body weight 91.9 kg HEAD OF INSIGHTMary Jo Dorsey Work Phone: [facility] 03-07-2023 16:51-0400 Blood Pressure Location Kenroy Jackson [facility] 03-07-2023 16:51-0400 Body temperature 98.6 [degF] Kenroy Jackson [facility] 03-07-2023 16:51-0400 bodymassindex -0.18 Kenroy Jackson [facility] Comment on above: Result Comment: ^~:!ZScore Source -[facility] 03-07-2023 16:51-0400 Diastolic blood pressure 80 mm[Hg] Kenroy Jackson [facility] 03-07-2023 16:51-0400 Heart rate 91 /min Kenroy Jackson [facility] 03-07-2023 16:51-0400 Height/Length Percentile 99.87 Kenroy Jackson [facility] Comment on above: Result Comment: ^~:!Percentile Source -[facility] 03-07-2023 16:51-0400 Height/Length Z-Score 3.01 Kenroy Jackson [facility] Comment on above: Result Comment: ^~:!ZScore [facility] 03-07-2023 16:51-0400 SaO2% (BldA) [Mass fraction] 99 % Kenroy Jackson [facility] 03-07-2023 16:51-0400 Systolic blood pressure 120 mm[Hg] Kenroy Jackson [facility] 03-07-2023 16:51-0400 Weight Percentile 89.21 % Kenroy Jackson [facility] Comment on above: Result Comment: ^~:!Percentile Source -[facility] 03-07-2023 16:51-0400 Weight Z-Score 1.24 Kenroy Jackson [facility] Comment on above: Result Comment: ^~:!ZScore [facility] 02-27-2023 11:04-0400 Body height 198.12 cm PHYSICIAN NO [facility] 02-27-2023 11:04-0400 Body temperature 97.6 [degF] PHYSICIAN NO [facility] 02-27-2023 11:04-0400 Body weight 85 kg PHYSICIAN NO [facility] 02-27-2023 11:04-0400 Diastolic blood pressure 71 mm[Hg] PHYSICIAN NO [facility] 02-27-2023 11:04-0400 Heart rate 100 /min PHYSICIAN NO [facility] 02-27-2023 11:04-0400 Respiratory rate 18 /min PHYSICIAN NO [facility] 02-27-2023 11:04-0400 SaO2% (BldA) [Mass fraction] 97 % PHYSICIAN NO [facility] 02-27-2023 11:04-0400 Systolic blood pressure 134 mm[Hg] PHYSICIAN NO [facility] 02-13-2023 10:50-0400 Body temperature 98.4 [degF] Nazario Fine Other [facility] Other 02-13-2023 10:50-0400 Body weight 86.18 kg Nazario Fine Other [facility] Other 02-13-2023 10:50-0400 Diastolic blood pressure 78 mm[Hg] Nazario Fine Other [facility] Other 02-13-2023 10:50-0400 Respiratory rate 18 /min Nazario Fine Other [facility] Other 02-13-2023 10:50-0400 SaO2% (BldA) [Mass fraction] 98 % Nazario Fine Other [facility] Other 02-13-2023 10:50-0400 Systolic blood pressure 134 mm[Hg] Nazario Fine Other [facility] Other 02-06-2023 10:30-0400 Body height 198.12 cm Ana Laura Lacey Other [facility] Other 02-06-2023 10:30-0400 Body mass index (BMI) [Ratio] 21.95 kg/m2 Ana Laura Lacey Other [facility] Other 02-06-2023 10:30-0400 Body temperature 98.3 [degF] Ana Laura Lacey Other [facility] Other 02-06-2023 10:30-0400 Body weight 86.18 kg Ana Laura Lacey Other [facility] Other 02-06-2023 10:30-0400 Diastolic blood pressure 75 mm[Hg] Ana Laura Lacey Other [facility] Other 02-06-2023 10:30-0400 Respiratory rate 18 /min Ana Laura Lacey Other [facility] Other 02-06-2023 10:30-0400 SaO2% (BldA) [Mass fraction] 97 % Ana Laura Lacey Other [facility] Other 02-06-2023 10:30-0400 Systolic blood pressure 138 mm[Hg] Ana Laura Lacey Other [facility] Other 10-23-2022 12:57-0400 Body temperature 98.4 [degF] PHYSICIAN NO [facility] 10-23-2022 12:57-0400 Diastolic blood pressure 62 mm[Hg] PHYSICIAN NO [facility] 10-23-2022 12:57-0400 Heart rate 89 /min PHYSICIAN NO [facility] 10-23-2022 12:57-0400 Respiratory rate 16 /min PHYSICIAN NO [facility] 10-23-2022 12:57-0400 SaO2% (BldA) [Mass fraction] 98 % PHYSICIAN NO [facility] 10-23-2022 12:57-0400 Systolic blood pressure 125 mm[Hg] PHYSICIAN NO [facility] 10-23-2022 06:00-0400 Body weight 79.8 kg PHYSICIAN NO [facility] 10-21-2022 22:30-0400 Body height 198.12 cm PHYSICIAN NO [facility] 10-21-2022 20:26-0400 Diastolic blood pressure 64 mm[Hg] PHYSICIAN NO [facility] 10-21-2022 20:26-0400 Heart rate 82 /min PHYSICIAN NO [facility] 10-21-2022 20:26-0400 Respiratory rate 16 /min PHYSICIAN NO [facility] 10-21-2022 20:26-0400 SaO2% (BldA) [Mass fraction] 100 % PHYSICIAN NO [facility] 10-21-2022 20:26-0400 Systolic blood pressure 141 mm[Hg] PHYSICIAN NO [facility] 10-21-2022 18:12-0400 Body height 198.12 cm PHYSICIAN NO [facility] 10-21-2022 18:12-0400 Body weight 85.27 kg PHYSICIAN NO [facility] 10-21-2022 18:10-0400 Body temperature 97.9 [degF] PHYSICIAN NO [facility] 10-13-2022 15:35-0400 Body height 198.12 cm PHYSICIAN NO [facility] 10-13-2022 15:35-0400 Body temperature 97.9 [degF] PHYSICIAN NO [facility] 10-13-2022 15:35-0400 Body weight 84.35 kg PHYSICIAN NO [facility] 10-13-2022 15:35-0400 Diastolic blood pressure 75 mm[Hg] PHYSICIAN NO [facility] 10-13-2022 15:35-0400 Heart rate 83 /min PHYSICIAN NO [facility] 10-13-2022 15:35-0400 Respiratory rate 14 /min PHYSICIAN NO [facility] 10-13-2022 15:35-0400 SaO2% (BldA) [Mass fraction] 100 % PHYSICIAN NO [facility] 10-13-2022 15:35-0400 Systolic blood pressure 153 mm[Hg] PHYSICIAN NO [facility] 09-27-2022 14:45-0400 Body height 198.12 cm PHYSICIAN NO [facility] 09-27-2022 14:45-0400 Body temperature 98.9 [degF] PHYSICIAN NO [facility] 09-27-2022 14:45-0400 Body weight 82.3 kg PHYSICIAN NO [facility] 09-27-2022 14:45-0400 Diastolic blood pressure 77 mm[Hg] PHYSICIAN NO [facility] 09-27-2022 14:45-0400 Heart rate 94 /min PHYSICIAN NO [facility] 09-27-2022 14:45-0400 Respiratory rate 16 /min PHYSICIAN NO [facility] 09-27-2022 14:45-0400 SaO2% (BldA) [Mass fraction] 98 % PHYSICIAN NO [facility] 09-27-2022 14:45-0400 Systolic blood pressure 170 mm[Hg] PHYSICIAN NO [facility] 08-02-2022 20:13-0500 Body height 187.96 cm MD Clari Owen MD [facility] 08-02-2022 20:13-0500 Body weight 75 kg MD Clari Owen MD [facility] 04-25-2022 16:28-0400 Body height 195.58 cm MD Deo Hamm MD [facility] 04-25-2022 16:28-0400 Body mass index (BMI) [Ratio] 20.9 kg/m2 MD Deo Hamm MD [facility] 04-25-2022 16:28-0400 Body weight 80 kg MD Deo Hamm MD [facility] 11-05-2021 14:21-0400 Body height 198.12 cm Linnea Shore Iliano Work Phone: [facility] Work Phone: 11-05-2021 14:21-0400 Body mass index (BMI) [Ratio] 22.07 kg/m2 Linnea Adele Iliano Work Phone: [facility] Work Phone: 11-05-2021 14:21-0400 Body surface area Derived from formula 2.21 m2 Linnea B Iliano Work Phone: [facility] Work Phone: 11-05-2021 14:21-0400 Body weight 86.64 kg Linnea B Iliano Work Phone: [facility] Work Phone: 11-05-2021 14:21-0400 Diastolic blood pressure 62 mm[Hg] Linnea B Iliano Work Phone: [facility] Work Phone: 11-05-2021 14:21-0400 Heart rate 106 /min Linnea Shore Iliano Work Phone: [facility] Work Phone: 11-05-2021 14:21-0400 SaO2% (BldA) [Mass fraction] 98 % Linnea Shore Iliano Work Phone: [facility] Work Phone: 11-05-2021 14:21-0400 Systolic blood pressure 102 mm[Hg] Linnea Shore Iliano Work Phone: [facility] Work Phone: 11-05-2021 14:040 91 1 Linnea Shore Iliano Work Phone: [facility] Work Phone: Comment on above: WPerc 11-05-2021 14:210400 99 1 Linnea Shore Iliano Work Phone: [facility] Work Phone: Comment on above: SPerc 11-05-2021 14:0400 50 1 Linnea Shore Iliano Work Phone: [facility] Work Phone: Comment on above: BMIPerc 11-05-2021 14:19-0400 Body height 198.12 cm Linnea Shore Iliano Work Phone: [facility] Work Phone: 11-05-2021 14:19-0400 99 1 Linnea B Iliano Work Phone: [facility] Work Phone: Comment on above: 08-16_SPerc 09-23-2020 02:18-0400 BMI (Body Mass Index) 20.9 kg/m2 Wai Dale [place] 09-23-2020 02:18-040 Body weight 80 kg Wai Dale [facility] Encounters Encounter Date Encounter Type Care Provider Facility Start: 05-01-2024 End: 05-01-2024 ambulatory [facility] Work Phone: Start: 05-01-2024 End: 05-01-2024 Patient encounter procedure [facility] [place] Work Phone: Start: 03-20-2024 End: 03-20-2024 ambulatory [facility] Work Phone: Start: 03-20-2024 End: 03-20-2024 Patient encounter procedure [facility] Work Phone: Start: 01-17-2024 Non-patient / Non-visit [facility] Work Phone: Start: 11-14-2023 End: 11-14-2023 Emergency department patient visit HEAD OF INSIGHT Nayla [place] Work Phone: [facility] [place] Work Phone: Start: 10-31-2023 End: 10-31-2023 ambulatory [facility] Work Phone: Start: 10-31-2023 End: 10-31-2023 Patient encounter procedure [facility] Work Phone: Start: 10-28-2023 End: 10-28-2023 Emergency department patient visit [facility] Start: 10-06-2023 End: 10-06-2023 ambulatory [facility] Work Phone: Start: 10-06-2023 End: 10-06-2023 Patient encounter procedure [facility] Work Phone: Start: 09-22-2023 End: 09-22-2023 ambulatory [facility] Work Phone: Start: 09-22-2023 End: 09-22-2023 Patient encounter procedure [facility] Work Phone: Start: 05-24-2023 End: 05-24-2023 ambulatory Nayla Easterwood Other [facility] Other Start: 05-24-2023 Telephone encounter Nayla Easterwood [facility] Start: 05-17-2023 End: 05-17-2023 ambulatory PHYSICIAN NO [facility] Work Phone: Start: 05-17-2023 End: 05-17-2023 Patient encounter procedure PHYSICIAN NO [facility] [place] Work Phone: Start: 05-16-2023 End: 05-16-2023 ambulatory Nayla Easterwood Other [facility] Other Start: 05-16-2023 Telephone encounter Nayla Easterwood [facility] Start: 04-21-2023 End: 04-21-2023 ambulatory Nayla Easterwood Other [facility] Other Start: 04-21-2023 Telephone encounter Nayla Easterwood [facility] Start: 04-04-2023 Telephone encounter Nayla Easterwood [facility] Start: 04-04-2023 End: 04-05-2023 ambulatory JOHN GILES [facility] Other Start: 04-01-2023 End: 04-01-2023 ambulatory Nayla Easterwood Other [facility] Other Start: 04-01-2023 Telephone encounter Nayla Easterwood [facility] Start: 03-29-2023 End: 03-29-2023 ambulatory Nayla Easterwood Other [facility] Other Start: 03-29-2023 Telephone encounter Nayla Easterwood [facility] Start: 03-22-2023 End: 03-22-2023 ambulatory Naylashanna Luzwood Other [facility] Other Start: 03-22-2023 Telephone encounter Nayla Dorsey [facility] [employer] Start: 03-07-2023 End: 03-08-2023 ambulatory Kenroy Jackson Facility:[facility] Start: 03-07-2023 End: 03-07-2023 Patient encounter procedure Kenroy Jackson [facility] Start: 02-27-2023 End: 02-27-2023 Emergency department patient visit PHYSICIAN JAJA MEDEIROS [facility] [place] Work Phone: Start: 02-21-2023 End: 02-21-2023 ambulatory Naylashanna Dorsey Other [facility] Other Start: 02-21-2023 Telephone encounter Nayla Luzwood [facility] Start: 02-13-2023 End: 02-13-2023 ambulatory Nazario Fine Other [facility] Other Start: 02-13-2023 Office outpatient vi sit 15 minutes Nazario Fine [facility] Start: 02-10-2023 End: 02-10-2023 ambulatory Ana Laura Lacey Other [facility] Other Start: 02-10-2023 Telephone encounter Ana Laura Lacey [facility] [address] Start: 02-06-2023 Office outpatient ne w 30 minutes Ana Laura Lacey [facility] [address] Start: 02-06-2023 End: 02-06-2023 ambulatory Ana Laura Lacey Other [facility] Other Start: 02-06-2023 End: 02-06-2023 Departed Referred HEAD OF INSIGHT Ana Laura Lacey Work Phone: [facility] [place] Work Phone: Start: 10-23-2022 ambulatory Ms. Linnea Zapata Facility:[id number] Start: 10-21-2022 End: 10-23-2022 Evaluation and management of inpatient PHYSICIAN NO [facility] [place] [facility] Work Phone: Start: 10-13-2022 End: 10-13-2022 Emergency department patient visit PHYSICIAN NO [facility] Work Phone: Start: 10-13-2022 End: 10-13-2022 Patient encounter procedure PHYSICIAN NO [facility] [place] Work Phone: Start: 09-27-2022 End: 09-27-2022 Emergency department patient visit PHYSICIAN NO [facility] Work Phone: Start: 08-02-2022 End: 08-02-2022 ambulatory OTHER PCP Facility:UNKNOWN Start: 04-25-2022 End: 04-25-2022 ambulatory OTHER PCP Facility:UNKNOWN Start: 11-13-2021 AUDIT Linnea root Work Phone: [facility] Work Phone: Start: 11-05-2021 Current tobacco non-user cad cap copd pv dm Linnea Zapata Work Phone: [facility] Work Phone: Start: 11-05-2021 ambulatory Ms. Linnea Zapata Facility:[id number] Start: 10-29-2020 End: 10-29-2020 ambulatory [facility] Start: 10-29-2020 Encounter for routin e child health examination without abnormal findings [facility] Start: 10-24-2020 End: 10-24-2020 ambulatory EDWARD JIANG [facility] Start: 08-19-2020 Patient encounter procedure UNKNOWN PROVIDER Facility:[facility] Patient encounter procedure Linnea Zapata Work Phone: [facility] Work Phone: MD Clari Pacheco [facility] Procedures Date Procedure Procedure Detail Performing Clinician Start: 02-06-2023 End: 02-06-2023 Throat culture PHYSICIAN NO FAMILY Start: 09-27-2022 CT of head without contrast PHYSICIAN NO FAMILY Plan of Treatment Date Care Activity Detail Author Start: 03-20-[address] [facility] Work Phone: Start: 11-14-2023 Plain chest X-ray XR chest 1V portab le [facility] Start: 11-14-2023 XR Chest Single view [facility] Start: 09-22-[address] 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 tender [facility] Start: 10-22-2022 Comprehensive metabo lic 2000 panel - Serum or Plasma [facility] Start: 10-22-2022 End: 10-22-2022 [facility] Start: 10-21-2022 Hospital admission [facility] Start: 10-21-2022 Referral to psychiatrist [facility] Start: 10-21-2022 [facility] Bacteria identified in Throat by Aerobe culture [facility] Patient Education [facility] Work Phone: Patient referral [facility] Work Phone: Immunizations Immunization Date Immunization Notes Care Provider Devi barahona 06-30-2021 Pfizer-BioNTech COVI D-19 Vacc 30 MCG/0.3ML Intramuscular Suspension Linnea Zapata Work Phone: [facility] 06-09-2021 influenza virus vacc ine, unspecified formulation Kenroy Jackson [facility] 06-09-2021 influenza, injectabl e, quadrivalent, preservative free Linnea Zapata Work Phone: [facility] Work Phone: 06-09-2021 DealflicksComplexa COVI D-19 Vacc 30 MCG/0.3ML Intramuscular Suspension Linnea Zapata Work Phone: [facility] 10-29-2020 meningococcal ACWY vaccine, unspecified formulation Kenroy Jackson [facility] 10-29-2020 meningococcal oligosaccharide (groups A, C, Y and W-135) diphtheria toxoid conjugate vaccine (MCV4O) Linnea Zapata Work Phone: [facility] Work Phone: 08-18-2018 HPV, unspecified formulation Kenroy Jackson [facility] 08-18-2018 Human Papillomavirus 9-valent vaccine Linnea Zapata Work Phone: [facility] Work Phone: 03-07-2018 HPV, unspecified formulation Kenroy Deshpandeey [facility] 03-07-2018 Human Papillomavirus 9-valent vaccine Linnea Zapata Work Phone: [facility] Work Phone: 12-23-2015 Hep A, unspecified formulation Kenroy Jackson [facility] 12-23-2015 meningococcal ACWY vaccine, unspecified formulation Kenroy Jackson [facility] 12-23-2015 meningococcal polysaccharide (groups A, C, Y and W-135) diphtheria toxoid conjugate vaccine (MCV4P); Translations: [Menactra Intramuscular Injectable] Jaxson Starks [facility] Work Phone: Comment on above: Series: 12-23-2015 hepatitis A vaccine, pediatric/adolescent dosage, 2 dose schedule; Translations: [Hepatitis A, Ped/Adol] Jaxson Morrisff [facility] Work Phone: Comment on above: Series: 11-22-2014 hepatitis A vaccine, unspecified formulation Kenroy Jackson [facility] 11-22-2014 hepatitis A vaccine, pediatric/adolescent dosage, 2 dose schedule; Translations: [Hepatitis A, Ped/Adol] Jaxson Starks [facility] Work Phone: Comment on above: Series: 11-22-2014 tetanus toxoid, redu anup diphtheria toxoid, and acellular pertussis vaccine, adsorbed; Translations: [Tdap] [facility] Comment on above: Series: 05-04-2012 influenza virus vacc ine, unspecified formulation Linnea B Iliano Work Phone: [facility] Comment on above: Series: 05-04-2012 influenza, seasonal, injectable Jaxson Starks [facility] Work Phone: 05-26-2011 influenza virus vacc ine, unspecified formulation Kenroy Manuel [facility] 05-26-2011 influenza, seasonal, injectable Linnea B Iliano Work Phone: [facility] Work Phone: 05-20-2010 influenza virus vacc ine, unspecified formulation Kenroy Jackson [facility] 05-20-2010 influenza, seasonal, injectable Linnea B Iliano Work Phone: [facility] Work Phone: 04-23-2009 influenza virus vacc ine, H1N1, live Kenroy Jackson [facility] 04-23-2009 influenza virus vacc ine, unspecified formulation Kenroy Jackson [facility] 04-23-2009 influenza, seasonal, injectable Linnea Adele Iliano Work Phone: [facility] Work Phone: 04-23-2009 novel Influenza-H1N1 -09, live virus for nasal administration Linnea B Iliano Work Phone: [facility] Work Phone: 03-25-2009 diphtheria, tetanus toxoids and acellular pertussis vaccine Kenroy Jackson [facility] 03-25-2009 diphtheria, tetanus toxoids and acellular pertussis vaccine, 5 pertussis antigens Jxason Starks [facility] Work Phone: Comment on above: Series: 03-25-2009 poliovirus vaccine, inactivated Jaxson Starks [facility] Work Phone: Comment on above: Series: 03-25-2009 varicella virus vaccine [facility] Comment on above: Series: 03-22-2009 poliovirus vaccine, unspecified formulation Kenroy Jackson [facility] 06-20-2006 influenza virus vacc ine, unspecified formulation Linnea B Iliivan Work Phone: [facility] Comment on above: Series: 06-20-2006 influenza, seasonal, injectable Jaxson Morrisff [facility] Work Phone: 09-02-2005 measles, mumps and rubella virus vaccine [facility] Comment on above: Series: 06-29-2005 influenza virus vacc ine, unspecified formulation Linnea B Iliano Work Phone: [facility] Comment on above: Series: 06-29-2005 influenza, seasonal, injectable Jaxson Starks [facility] Work Phone: 05-28-2005 influenza virus vacc ine, unspecified formulation Linnearoger Zapata Work Phone: [facility] Comment on above: Series: 05-28-2005 influenza, seasonal, injectable Jaxson Starks [facility] Work Phone: 02-19-2005 poliovirus vaccine, inactivated Jaxson Starks [facility] Work Phone: Comment on above: Series: 02-19-2005 poliovirus vaccine, unspecified formulation Kenroy Manuel [facility] 11-16-2004 diphtheria, tetanus toxoids and acellular pertussis vaccine, unspecified formulation Linnea Zapata Work Phone: [facility] Work Phone: 11-16-2004 DTaP, unspecified formulation Kenroy Manuel [facility] 11-16-2004 haemophilus influenz ae type b vaccine, PRP-OMP conjugate Jaxson Starks [facility] Work Phone: Comment on above: Series: 11-16-2004 pneumococcal conjuga te vaccine, 7 valent Jaxson Starks [facility] Work Phone: Comment on above: Series: 11-06-2004 haemophilus influenz ae type b vaccine, conjugate unspecified formulation Linnea Zapata Work Phone: [facility] Work Phone: 11-06-2004 Hib, unspecified formulation Kenroy Manuel [facility] 10-27-2004 diphtheria, tetanus toxoids and acellular pertussis vaccine, 5 pertussis antigens Jaxsonkiley Starks [facility] Work Phone: Comment on above: Series: 10-26-2004 diphtheria, tetanus toxoids and acellular pertussis vaccine Kenroy Manuel [facility] 08-20-2004 measles, mumps and rubella virus vaccine [facility] Comment on above: Series: 08-20-2004 varicella virus vaccine [facility] Comment on above: Series: 05-22-2004 hepatitis B vaccine, adult dosage Jaxsonkiley Starks [facility] Work Phone: Comment on above: Series: 05-22-2004 hepatitis B vaccine, pediatric or pediatric/adolescent dosage Kenroy Manuel [facility] 03-13-2004 diphtheria, tetanus toxoids and acellular pertussis vaccine Kenroy Manuel [facility] 03-13-2004 diphtheria, tetanus toxoids and acellular pertussis vaccine, 5 pertussis antigens [facility] Work Phone: Comment on above: Series: 03-13-2004 haemophilus influenz ae type b vaccine, PRP-OMP conjugate [facility] Work Phone: Comment on above: Series: 03-13-2004 pneumococcal conjuga te vaccine, 7 valent [facility] Work Phone: Comment on above: Series: 01-08-2004 diphtheria, tetanus toxoids and acellular pertussis vaccine Kenroy Manuel [facility] 01-08-2004 diphtheria, tetanus toxoids and acellular pertussis vaccine, 5 pertussis antigens [facility] Work Phone: Comment on above: Series: 01-08-2004 haemophilus influenz ae type b vaccine, PRP-OMP conjugate [facility] Work Phone: Comment on above: Series: 01-08-2004 pneumococcal conjuga te vaccine, 7 valent Jaxson Starks [facility] Work Phone: Comment on above: Series: 01-08-2004 poliovirus vaccine, inactivated Jaxson Starks -[facility] Work Phone: Comment on above: Series: 01-08-2004 poliovirus vaccine, unspecified formulation Kenroy Jackson [facility] 2003 diphtheria, tetanus toxoids and acellular pertussis vaccine Kenroy Jackson [facility] 2003 diphtheria, tetanus toxoids and acellular pertussis vaccine, 5 pertussis antigens Jaxson Starks [facility] Work Phone: Comment on above: Series: 2003 haemophilus influenz ae type b vaccine, PRP-OMP conjugate Jaxson Starks [facility] Work Phone: Comment on above: Series: 2003 hepatitis B vaccine, adult dosage Jaxson Starks [facility] Work Phone: Comment on above: Series: 2003 hepatitis B vaccine, pediatric or pediatric/adolescent dosage Kenroy Manuel [facility] 2003 pneumococcal conjuga te vaccine, 7 valent Jaxson Starks -[facility] Work Phone: Comment on above: Series: 2003 poliovirus vaccine, inactivated Jaxson Starks -[facility] Work Phone: Comment on above: Series: 2003 poliovirus vaccine, unspecified formulation Kenroy Jackson [facility] 2003 hepatitis B vaccine, adult dosage [facility] Work Phone: Comment on above: Series: 2003 hepatitis B vaccine, pediatric or pediatric/adolescent dosage Kenroy Jackson [facility] Payers Date Payer Category Payer Self-pay 2023 Medicaid [id number] 2019 [employer] [id number] 2019 Medicaid [id number] 2003 Unknown [id number] 2003 Unknown [id number] 2003 Unknown [id number] 27 2003 Unknown [id number] 27 2003 Unknown [id number] 27 1982 Unknown [id number] 93 1979 Unknown [id number] 56 1965 Unknown [id number] 32 1965 Unknown [id number] 32 Unknown [id number] 51 Unknown [id number] 51 Unknown [facility] [employer] MEDICAID Unknown [id number] Social History Date Type Detail Facility Start: 09-23-2020 End: 08-02-2022 Not Known [facility] Lives with grandparent(s) Lives with grandparent(s) [facility] Work Phone: [facility] [place] Start: 09-27-2022 Tobacco smoking status NHIS Never smoked tobacco (finding) [facility] Start: 2003 Sex Assigned At Male [facility] Start: 10-21-2022 End: 11-14-2023 Tobacco smoking status NHIS Smoker (finding) [facility] Tobacco Current vaping o r e-cigarette use Smokeless Tobacco Use:. Vaping [facility] Tobacco smoking status No Smoking Status Entered [facility] NEGATED: Highlighted row - - [facility] Work Phone: Goals Date Patient Goal Desired Activity /State Functional Status Date Assessment Result Facility 03-07-2023 Functional Status N/A [facility] 10-21-2022 Functional status Patient at Baseline [facility] Work Phone: NEGATED: Highlighted row Functional performance Functional status health issues are not documented Disease [facility] Work Phone: Mental Status Date Assessment Result Facility 10-21-2022 Cognitive function Cognitive Sta tus Patient at Baseline [facility] Work Phone: NEGATED: Highlighted row Cognitive function [Interpretation] Cognitive status health issues are not documented Disease [facility] Work Phone: Clinical Notes 05-15-2021 to 05-16-2023 Note Date & Type Note Facility 05-16-2023 Evaluation note Encounter Date Diagnosis Assessment Notes Apr, Polydipsia (ICD-10 - R63.1) [facility] Other 10-26-2023 Evaluation note* Encounter Date Diagnosis Assessment Notes Treatment Notes Treatment Clinical Notes Mar, TMJ (temporomandibular joint disorder) (ICD-10 - M26.609) [facility] Other 10-09-2023 Evaluation note* Encounter Date Diagnosis Assessment Notes Treatment Notes Treatment Clinical Notes Mar, TMJ (temporomandibular joint disorder) (ICD-10 - M26.609) [facility] Other 10-06-2023 Evaluation note* Encounter Date Diagnosis Assessment Notes Treatment Notes Treatment Clinical Notes Mar, TMJ (temporomandibular joint disorder) (ICD-10 - M26.609) [facility] Other 10-03-2023 Evaluation note* Encounter Date Diagnosis Assessment Notes Treatment Notes Treatment Clinical Notes Mar, TMJ (temporomandibular joint disorder) (ICD-10 - M26.609) [facility] Other 09-11-2023 Hospital Discharge instructions Patient Education 03/07/2023 18:53:14 Cervical Sprain, Lnpn-[id number]-Rpvt Cervical Sprain A cervical sprain is also [...] Follow these instructions at home: Medicines Take hvmo-azb-adfvuml and prescription medicines only as told by your doctor. Ask your doctor if the medicine prescribed to you: ?Requires you to avoid driving or using heavy machinery. ?Can cause trouble pooping (constipation). You may need to take these actions to prevent or treat trouble pooping: ?Drink enough fluid to keep your pee (urine) pale yellow. ?Take vfqw-tng-fvobrjr or prescription medicines. ?Eat foods that are [...] provider. Document Revised: 02/20/2020 Document Reviewed: 02/20/2020 [employer] Patient Education 2022 [employer] 03/07/2023 18:52:56 Temporomandibular Joint Syndrome Temporomandibular Joint [...] Do not chew gum. General instructions Take gbez-fxh-nukxzdy and prescription medicines only as told by [...] important. Where to find more information [employer] and Craniofacial Research: www.nidcr.nih.gov Contact [...] provider. Document Revised: 01/24/2022 Document Reviewed: 01/24/2022 [employer] Patient Education 2022 [employer]. Follow Up Care 03/07/2023 14:45:40 With:NONE, XXXX Address: [phone] When: Unknown [facility] 08-20-2023 Evaluation note* Encounter Date [...] 6 months. No evidence of ludwigs angina, HAND SURGEON, retropharyngeal abscess, or neoplasm, as he does [...] pack and cyclobenzaprine. Given strict return precautions. [employer] Other 08-13-2023 Evaluation note* Encounter Date Diagnosis [...] plan. Jan, Sinus pressure (ICD-10 - J34.89) [employer] Other 07-01-2023 History general Narrative - Reported* Type Description Date Surgical History wisdom teeth removal 12/2022 [employer] Other 04-29-2023 Consult note Author Wai Alfonso [facility] October 23, 2022 10:23am Note Date/Time October 23, 2022 10: 06am [facility] [address] [place], [place] [id number] Cardiology Consult Note Signed Patient: Cameron Teresa MR#: [id number] : 2005 Acct:[id number] Age/Sex: 17 / M Adm Date: 3 Loc: Room: [address] [place] [address] Type: ADM IN Attending Dr: Saqib Brantley DO Copies to: Saqib Brantley, DO NO FAMILY PHYSICIAN Wai Alfonso MD~ Cardiology HPI History of Present Illness Consult Date: 10/23/22 Reason for Consult: I been asked by the patient's primary medicine service to see Cameron in consultation for opinion and recommendations regarding ST abnormalities on ECG prior to transfer from ICU to [facility]. for treatment of depression. HPI: Mr. Teresa is a 17 year old male with no known prior cardiac history but a history of depression (patient's last suicide attempt was at age 14) who was admitted to the ICU from [facility] emergency department yesterday after he presented [...] brought immediately to the emergency department here [facility] for evaluation and treatment. From a [...] cardiac/medical risk assessment/stratification prior to transfer to [facility] for further inpatient treatment of [...] changes or abnormalities: early repolarization (normal variant) NC, pacemaker, normal Normal tracing: no change compared [...] for adverse cardiac events and [facility] as deemed appropriate by his psychiatric caregiver [...] signed by Wai Alfonso MD> 10/23/22 1023 [facility] Work Phone: 1(621) 627-410704-28-2023 Progress note Author Saqib Brantley [facility] October 22, 2022 6:28pm Note Date/Time October 22, 2022 6:2 9pm [facility] [address] [place] [address] Hospitalist Progress Note Signed Patient: Cameron Teresa MR#: [id number] : 2005 Acct:[id number] Age/Sex: 17 / M Adm Date: 3 Loc: Room: [address] [place] [address] Type: ADM IN Attending Dr: Saqib Brantley [...] <Electronically signed by Saqib Brantley DO> 10/22/22 1822 [facility] Work Phone: 1(229) 474-323104-28-2023 Consult note Author Steve linares [facility] October 22, 2022 10:51am Note Date/Time October 22, 2022 10: 51am [facility] [address] [place] [address] Psychiatry Consult Note Signed Patient: Cameron Teresa MR#: [id number] : 2005 Acct:[id number] Age/Sex: 17 / M Adm Date: 3 Loc: Room: [address] [place] [address] Type : ADM IN Attending Dr: Saqib [...] up with the psychiatric nurse practitioner at [facility] and was staying in sober living. He said he was supposed to start a job at [employer] today and was working 2 years from [employer]. He reports previous psychiatric hospitalization at [facility] at the age of 14 after [...] Appearance Clear Urine pH 8.5 Ur Specific Dennis 1.023 Urine Protein Trace H Urine Glucose [...] Color Urine Appearance Urine pH Ur Specific Dennis Urine Protein Urine Glucose (UA) Urine Ketones [...] signed by Steve Flood MD> 10/22/22 1051 [facility] Work Phone: 1(659) 656-717904-27-2023 History and physical note Author Saqib Brantley [facility] October 21, 2022 8:50pm Note Date/Time October 21, 2022 8:4 4pm [facility] [address] [place] [address] Hospitalist H&P Signed Patient: Cameron Teresa MR#: [id number] : 2005 Acct:[id number] Age/Sex: 17 / M Adm Date: 3 Loc: Room: 9D2075-8 Type: ADM IN Attending Dr: Saqib Brantley [...] % (Auto) 14.0 % (.) 10/21/22 18:16 [place] % (Auto) 6.1 % (.) 10/21/22 18:16 Eos % (Auto) 0.4 % (.) 10/21/22 18:16 Baso % (Auto) 0.3 % (.) 10/21/22 18:16 Nucleat RBC Rel Count 0.1 /100 WBC (0-0.5) 10/21/22 18:16 Neut # (Auto) 8.9 x10E3/uL (1.8-7.7) H 10/21/22 18:16 Lymph # (Auto) 1.6 x10E3/uL (1.00-4.8) 10/21/22 18:16 Hampton # (Auto) 0.7 x10E3/uL (0.0-0.8) 10/21/22 18:16 [...] pH 8.5 (5.0-9.0) 10/21/22 18:34 Ur Specific Dennis 1.023 (1.001-1.030) 10/21/22 18:34 Urine Protein Trace [...] <Electronically signed by Saqib Brantley DO> 10/21/222049 [facility] Work Phone: 1(891) 797-631904-27-2023 History and physical note Author Saqib Brantley [facility] October 21, 2022 8:50pm Note Date/Time October 21, 2022 8:4 4pm [facility] [address] [place] [address] Hospitalist H&P Signed Patient: Cameron Teresa MR#: [id number] : 2005 Acct:[id number] Age/Sex: 17 / M Adm Date: 3 Loc: Room: [address] [place] [address] Type: ADM IN Attending Dr: Saqib Brantley DO Copies to: Saqib R. Frings, DO NO FAMILY PHYSICIAN~ HPI DATE OF [...] % (Auto) 14.0 % (.) 10/21/22 18:16 [place] % (Auto) 6.1 % (.) 10/21/22 18:16 Eos % (Auto) 0.4 % (.) 10/21/22 18:16 Baso % (Auto) 0.3 % (.) 10/21/22 18:16 Nucleat RBC Rel Count 0.1 /100 WBC (0-0.5) 10/21/22 18:16 Neut # (Auto) 8.9 x10E3/uL (1.8-7.7) H 10/21/22 18:16 Lymph # (Auto) 1.6 x10E3/uL (1.00-4.8) 10/21/22 18:16 [place] # (Auto) 0.7 x10E3/uL (0.0-0.8) 10/21/22 18:16 [...] pH 8.5 (5.0-9.0) 10/21/22 18:34 Ur Specific Dennis 1.023 (1.001-1.030) 10/21/22 18:34 Urine Protein Trace [...] <Electronically signed by Saqib Brantley DO> 10/21/222049 [facility] Work Phone: 1(697) 597-276402-06-2023 Hospital Discharge instructions Patient Transfer Information from [...] Primary Care Provider : PCP, Other (PCP) ([facility] 5110) - Medical S 03-01-2022 NoteHNO ID: [id number] Author: Aleksandra Ross MD Service: ? Author [...] radial pulses 2+ (more content not included)... [facility]02-01-2022 NoteHNO ID: [id number] Author: Aleksandra Ross MD Service: ? Author Type: Physician Type: Progress Notes Filed: 08/02/2021 9:41 PM Note Text: INITIAL OUTPATIENT VISIT PEDIATRIC RHEUMATOLOGY SERVICE DATE: 07/28/2021 REFERRING PHYSICIAN: Jaxson Starks [address] [place] [address] PRIMARY CARE PHYSICIAN: Jaxson Starks DO ACCOMPANIED [...] STUDIES: I have perso (more content not included)...[facility]01-21-2022 NoteHNO ID: [id number] Author: Jaxson Starks, DO Service: ? Author Type: Physician Type: Progress Notes Filed: 07/17/2021 7:35 AM Note Text: Patient overdue for well-child visits and/or vaccines. Please call to update PCP if needed and/or schedule an appointment.[facility] 07-08-2021 NoteHNO ID: [id number] Author: Jaxson Starks, DO Service: ? Author [...] SALINE) 0.65 % nasal spray Use 1 Camilla in the nose as needed. albuterol HFA [...] Teresa DATE: July 08, 2021 TIME: 1:05 [facility]11-19-2021 NoteHNO ID: [id number] Author: Jaxson Starks DO Service: ? Author [...] Teresa DATE: May 15, 2021 TIME: 12:10 [facility] complaint+Reason for visit Narrative* Chief Complaint discuss referral to psych Reason for Visit Depression PTSD (post-traumatic stress disorder) [facility] Work Phone: chief complaint+Reason for visit Narrative* Chief Complaint discuss referral to psych depression Reason for Visit Depression PTSD (post-traumatic stress disorder) [facility] Work Phone: chief complaint+Reason for visit Narrative* Chief Complaint discuss referral to psych depression anxiety Reason for Visit Depression PTSD (post-traumatic stress disorder) Restless leg Panic attack due to exceptional stress [facility] Work Phone: chief complaint+Reason for visit Narrative* Chief Complaint discuss referral to psych depression anxiety overdose Reason for Visit Depression PTSD (post-traumatic stress disorder) Restless leg Panic attack due to exceptional stress [facility] Work Phone: Clinical Notes [facility] Consult note Author Chandler Flood [facility] October 22, 2022 10:51am Note Date/Time October 22, 2022 10: 51am [facility] [address] [place] [address] Psychiatry Consult Note Signed Patient: Cameron Teresa MR#: [id number] : 2005 Acct:[id number] Age/Sex: 17 / M Adm Date: 3 Loc: Room: 6A8287-5 Type : ADM IN Attending Dr: Saqib [...] up with the psychiatric nurse practitioner at [facility] and was staying in sober living. He said he was supposed to start a job at [employer] today and was working 2 years from [employer]. He reports previous psychiatric hospitalization at [facility] at the age of 14 after [...] Appearance Clear Urine pH 8.5 Ur Specific Dennis 1.023 Urine Protein Trace H Urine Glucose [...] Color Urine Appearance Urine pH Ur Specific Dennis Urine Protein Urine Glucose (UA) Urine Ketones [...] signed by Steve Flood MD> 10/22/22 1051 [facility] Work Phone: Consult note Author Wai Alfonso [facility] October 23, 2022 10:23am Note Date/Time October 23, 2022 10: 06am [facility] [address] [place] [address] Cardiology Consult Note Signed Patient: Cameron Teresa MR#: [id number] : 2005 Acct:[id number] Age/Sex: 17 / M Adm Date: 3 Loc: Room: 0Q6813-9 Type: ADM IN Attending Dr: Saqib Brantley DO Copies to: Saqib Brantley DO NO FAMILY PHYSICIAN Wai Alfonso MD~ Cardiology HPI History of Present Illness Consult Date: 10/23/22 Reason for Consult: I been asked by the patient's primary medicine service to see Cameron in consultation for opinion and recommendations regarding ST abnormalities on ECG prior to transfer from ICU to [facility] for treatment of depression. HPI: Mr. Teresa is a 17 year old male with no known prior cardiac history but a history of depression (patient's last suicide attempt was at age 14) who was admitted to the ICU from [facility] emergency department yesterday after he presented [...] brought immediately to the emergency department here [facility] for evaluation and treatment. From a [...] cardiac/medical risk assessment/stratification prior to transfer to [facility] for further inpatient treatment of [...] changes or abnormalities: early repolarization (normal variant) NC, pacemaker, normal Normal tracing: no change compared [...] for adverse cardiac events [facility] as deemed appropriate by his psychiatric caregiver [...] signed by Wai Alfonso MD> 10/23/22 1023 [facility] Work Phone: Discharge summary Author Saqib Brantley [facility] October 23, 2022 1:05pm Note Date/Time October 23, 2022 1:0 5pm [facility] [address] [place] [address] Discharge Summary Signed Patient: Cameron Teresa MR#: [id number] : 2005 Acct:[id number] Age/Sex: 17 / M Adm Date: 3 Loc: Room: [address] [place] [address]: Saqib Brantley DO Copies to: Saqib Brantley DO NO FAMILY PHYSICIAN~ Providers Date of Discharge: 10/23/22 Discharging Provider: Saqib Brantley Primary Care Provider: PHYSICIAN NO FAMILY Consults: 10/21/22 20:35 Consult to Psychiatry [...] signed by Saqib Brantley DO> 10/23/22 1305 [facility] Work Phone: Evaluation + Plan note [facility] Evaluation + Plan note No data available for this section [facility] Evaluation noteNo assessment information available [facility] Work Phone: Evaluation note* Diagnosis Onset Date Resolution Status Abnormal electrocardiogram finding acute Major depressive disorder, recurrent, moderate acute Medication side effects acut e Suicide attempt by multiple drug overdose acute [facility] Work Phone: Evaluation noteNo InformationNort [employer] Other Evaluation note* Diagnosis Onset Date Resolution Status Depression acute PTSD (post-traumatic stress disorder) acute [facility] Work Phone: Evaluation note* Diagnosis Onset Date Resolution Status Depression acute PTSD (post-traumatic stress disorder) acute Restless leg acute Panic attack due to exceptional stress acute [facility] Work Phone: Evaluation note* Diagnosis Onset Date Resolution Status Insomnia acute PTSD (post-traumatic stress disorder) acute Substance abuse in remission acute [facility] Work Phone: History general Narrative - Reported* Type Description Date Medical History Anxiety Medical History PTSD (post-traumatic stress diso rder) Medical History Depression Medical History TMJ (temporomandibular joint dis order) Medical History Substance abuse in remission Surgical History [place] teeth removal 12/2022 [facility] Other History of Present illness Narrative* The [...] relationships are appropriate. Eats meals with family. Arjlbf-kwauz-epnfqvp interactions are normal. Has a supportive adult [...] yo male presents as [facility] care * Previous PCP: Dr. 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 * Pt works PT at [employer] * Pt does not exercise/workout * Pt [...] [facility] Work Phone: [facility] Discharge instructions Additional Instructions Continue current medication Increase oral fluids Change positions carefully while you are dizzy Follow-up with your provider who prescribes the affects your Return to the ER for worsening headache vomiting high fever or any other concerns[facility] [place] Work Phone: Hospital Discharge instructions Additional Instructions Inpatient Psychiatry to manage care: - Full code - Maintain seizure and suicide precautions per protocol -[facility] Work Phone: Hospital Discharge instructionsAmbulatory Orders* Referral to Psychiatry Location: None [facility] Work Phone: Hospital Discharge instructions Additional Instructions Please find help. You have experience with sobriety, so you know that you can get clean. You cannot be your own counselor, though. We are happy to help if you need us. You are too young to , but you take that risk every time you use.[facility] Work Phone: Instructions* Name Dates Details Instructions not documented -[facility] Work Phone: progress note Author Saqib Brantley [facility] October 22, 2022 6:28pm Note Date/Time October 22, 2022 6:2 9pm [facility] [address] [place], [place] [address] Hospitalist Progress Note Signed Patient: Cameron Teresa MR#: [id number] : 2005 Acct:[id number] Age/Sex: 17 / M Adm Date: 3 Loc: Room: [address] [place] [address] Type: ADM IN Attending Dr: Saqib Brantley [...] signed by Saqib Brantley DO> 10/22/22 1828 [facility] Work Phone: Progress note No data available for this section [facility] Summary Purpose Family History No Family History Records Found Mother Name Dates Details Family history of [...] Unknown Chronic mental illness Unknown Advance Directives No Advanced Directives Records Found Advance Directive Response Recorded Date/ Time Advance Directives No September 27 2:57pm Advance Directive Response Recorded Date/ Time Advance Directives No September 27 1:57pm Hospital Course Note HNO ID: [id number] Author: Jules Munoz Service: Pediatric Psychiatry Author [...] currently in residential substance use treatment at [facility] with several previous psychiatric admissions ([facility] in [...] Care Provider : Jaxson Starks DO (PCP) ([facility] 0639) - Unknown, Physician Chief Complaint * Cameron is here today for NPV previously seen last by his brain surgeon who is Dr. Starks at [facility] in [place]. * Pt reports that for the past [...] Lymph node enlargeme nt (R59.9) Referral Organization [facility] [place] Referring Provider First Name Nazario Referring Provider Last Name Babatunde Referring Provider Specialty Nurse Pract theodoreioner Referred Organization [facility] Abby Dickey Referred Provider Nayla Dorsey Referred Address [address] [place] [address], [place], [place] Referred Provider Specialty Nurse Naye dsouza Referral [...] section and content) DATE CREATED AUTHOR 06/10/2020 [facility] DATE CREATED AUTHOR AUTHOR'S ORGANIZ ATION [facility]/29/2020 [facility] DATE CREATED AUTHOR AUTHOR'S ORGANIZ ATION 09/29/2020 [facility] DATE CREATED AUTHOR AUTHOR'S ORGANIZ ATION 10/31/2020 [facility] DATE CREATED AUTHOR AUTHOR'S ORGANIZ ATION 11/01/2020 [facility] DATE CREATED AUTHOR AUTHOR'S ORGANIZ ATION 11/23/2020 [facility] DATE CREATED AUTHOR AUTHOR'S ORGANIZ ATION 05/18/2021 [facility] DATE CREATED AUTHOR AUTHOR'S ORGANIZ ATION 09/16/2021 [facility] DATE CREATED AUTHOR AUTHOR'S ORGANIZ ATION 08/25/2022 [facility] DATE CREATED AUTHOR AUTHOR'S ORGANIZ ATION 10/28/2022 [facility] DATE CREATED AUTHOR AUTHOR'S ORGANIZ ATION 04/08/2023 [facility] DATE CREATED AUTHOR AUTHOR'S ORGANIZ ATION 10/30/2023 [facility] DATE CREATED AUTHOR AUTHOR'S ORGANIZ ATION 05/21/2024 [facility] Goals (unrecognized section and [...] Active Start: January 17, 2024 Team Status: Active Member Role Status Dates PHYSICIAN NO FAMILY Primary Care Provider Active Team Status: Inactive Member Role Status Dates PHYSICIAN NO FAMILY Primary Care Provider Active Margarita Schaeffer [facility] Emergency Provider Active Team Status: Inactive Member [...] MD Other Provider Active Sharon Shahid , HEAD OF INSIGHT Other Provider Active Chandler Flood MD Other Provider Active Nicholas Frias MD Other Provider Active America Castro RN Other Provider Active Ginger Cid DO Other Provider Active Regine [place] MD Other Provider Active Iglesia Milan MD Other Provider Active Kellee Lambert MD Other Provider Active Ernie Jimenez MD Other Provider Active Anne-Marie Smith APRN Other Provider Active Elizabeth Serrato MD Other Provider Active Arnel Ibanez MD Other Provider Active Lizette Vega MD Other Provider Active Sherrie Wick , [facility] Other Provider Active Soledad Perez MD Other Provider Active Team Status: Inactive Member Role Status Dates Ana Laura Lacey , HEAD OF INSIGHT Attending Provider Active Team Status: Inactive Member Role Status Dates Ana Laura Lacey HEAD OF INSIGHT Attending Provider Active PHYSICIAN NO FAMILY Primary Care Provider Active Team Status: Inactive Member Role Status Dates PHYSICIAN NO FAMILY Primary Care Provider Active Nayla Dorsey , HEAD OF INSIGHT Attending Provider Active Team Status: Inactive Member Role Status Dates Nayla Dorsey , HEAD OF INSIGHT Primary Care Pr ovider, Attending Provider Active Start: September 22, 2023 End: September 22, 2023 Team Status: Inactive Member Role Status Dates Nayla Dorsey , [employer] OF INSIGHT Primary Care Pr ovider, Attending Provider Active Start: October 06, 2023 End: October 06, 2023 Team Status: Inactive Member Role Status Dates Nayla Dorsey , HEAD OF INSIGHT Primary Care Pr ovider, Attending Provider Active Start: October 31, 2023 End: October 31, 2023 Team Status: Inactive Member Role Status Dates Nayla Dorsey , HEAD OF INSIGHT Primary Care Provider Active Start: November 14, 2023 End: November 14, 2023 Nazario Shaw Jr, MD Emergency Provider Active Start: November 14, 2023 End: November 14, 2023 REASON FOR VISIT (unrecogniz ed section and [...] BE BASED ON THE PRIMARY CLINICAL RECORDS. [facility] [employer] provides no warranty or guarantee of the accuracy or completeness of information in this document.
== END 2024-05-29 12:05 | disposition home or self-care (01) ==
LOC: RAD 12:11
PROVIDERS: PCP Nurse Practitioner Family; Visit Provider Nurse Practitioner Family
DX: M54.9 Dorsalgia, unspecified (principal)
CPT/HCPCS: 72072; 72110

== ENCOUNTER 2025-03-28 11:44 | Outpatient (OUT) | payer BC, SELFPAY ==
--- OUTSIDE RECORDS SUMMARY | 2023-08-17 06:07 | XMS_ITS | Continuity of Care Document ---
Author Organization [facility] Address [address] [place] [address] Phone Care Team Providers Care Multimedia Authoring Specialist Name Role Phone Catarina Robison Unavailable Unavailable [...] Diagnoses Date Provider Providers Copied on Encounter [facility], [address], [place], [place], [id number], tel:[phone] [facility] Major depressive disorder, single episode, severe with psychotic features ICD10 4 Pepito Elmore. [address] [place] [address], [place], [address], [place]. [facility], [address] [place], [place] [address], [place], [place], [id number], [place] tel:[phone] [facility] [address] Post-traumatic stress disorder, unspecified ICD10 3 Hoang Nolan. [address] [place] [address], [place], [place], [id number], [place]. tel:[phone] [facility], [address] [place] [address] Road, [place], [place], [id number], [place] tel:[phone] [facility] [address] Major depressive disorder, single episode, severe with psychotic features ICD10 3 Hoang Nolan. [address] [place] [address], [place], [place], [id number], [place]. tel:[phone] [facility], [address], [place], [place], [id number], [place] tel:[phone] [facility] [address] Post-traumatic stress disorder, unspecified ICD10 3 Hoang Nolan. [address] [place] [address], [place], [place], [id number], [place]. tel:[phone] [facility], [address] [place], [place] [address], [place], [place], [id number], [place] tel:[phone] [facility] Post-traumatic stress disorder, unspecified ICD10 3 Hoang Nolan. [address] [place] [address], [place], [place], [id number], [place]. tel:[phone] [facility], [address] [place] [address] Road, [place], [place], [id number], [place] tel:[phone] [facility] [place] [address] No Information 3 Chrystal Eduardo. [address] [place] [address], [place], [address], [place]. [facility], [address], [place], [place], [id number], [place] tel:[phone] [facility] Opioid dependence, uncomplicated KFX51Qzhqqmwe abuse, uncomplicated KOT27Yxoxpecy dependence, uncomplicated CWU38Owqgyzha, hypnotic or anxiolytic dependence, uncomplicated KXK57Vfswt stimulant dependence, uncomplicated KUN70Zmenk stimulant dependence with stimulant-cyrus anup anxiety disorder VKE91Glllrwjpr gen dependence, uncomplicated RYX28Ojdnbuwu dependence, unspecified, uncomplicated NDB76Urjctkvd abuse, in remission MPV22Dtxap depressive disorder, single episode, severe with psychotic features GFO93Svwh-rvhi matic stress disorder, unspecified ICD10 3 No Information [facility], [address] [place] [address], [id number], tel:[phone] [facility] [address] Major depressive disorder, single episode, severe with psychotic features ICD10 3 Hoang Nolan. [address], [place], [place], [id number], [place]. tel:[phone] [facility], [address] [place] [address], [id number], tel:[phone] [facility] [address] Post-traumatic stress disorder, unspecified ICD10 2 No Information OFFICE/OUTPA TIENT VISIT, EST [facility], [address] [place] [address], [id number], [place] tel:[phone] [facility] [address] hpi (chief complaint) Major depressive disorder, single episode, severe with psychotic features GLB95Yxya-abgp matic stress disorder, unspecified WMZ17Nmaqrpjm abuse, in remission ISX37Wrwvobt dependence, uncomplicated UPY02Vlwkb stimulant dependence with stimulant-cyrus anup anxiety disorder QDY64Qtxxiipeu gen dependence, uncomplicated XAJ74Xhdjnhtt dependence, unspecified, uncomplicated ZJE86Firekbhn, hypnotic or anxiolytic dependence, uncomplicated KLK53Xcrwvcln dependence, uncomplicated FKZ03Pzxumo dependence, uncomplicated ICD10 2 No Information [facility], [address] [place] [address], [id number], [place] tel:[phone] [facility] [address] 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 [address] [place] [address], [id number], [place]. tel: [phone] [facility], [address] [place] [address], [id number], [place] tel: [phone] [facility] [address] Nicotine dependence, unspecified, uncomplicated SQQ61Vdjphbgt abuse, in remission ICD10 0 Luis A Medina. [address] [place] [address], [id number], [place]. tel: [phone] [facility], [address] [place] [address], [id number], [place] tel: [phone] [facility] [address] Cocaine dependence, uncomplicated ICD10 0 No Information [facility], [address] [place] [address], [id number], [place] tel: [phone] [facility] [address] Other stimulant dependence, uncomplicated URU99Yurgkuwea gen dependence, uncomplicated KUE92Scwjyhal dependence, uncomplicated ORU20Jocyxzxc, hypnotic or anxiolytic dependence, uncomplicated RQA60Ykjsgx dependence, uncomplicated ICD10 - 0 No Information [facility], [address] [place] [address], [id number], [place] tel: [phone] [facility] [address] Major depressive disorder, single episode, severe with psychotic features ICD10 9 Efe Alvarez. . [facility], [address] [place] [address], [id number], [place] tel: [phone] [facility] [address] Cannabis abuse, uncomplicated OOT80Rwlr-azft matic stress disorder, unspecified ICD10 8201 9 Soraida Coleman. [address] [place], [place], [id number], [place]. tel:[phone] Family History Family Member Type Diagnosis Age At Onset No Information Payers Payer name Insurance type Covered libertarian ID David house(s) Prevention CI [id number] Social History Type Description Quantity Date Captured Comments Sex Male Smoking Status No Information Chief Complaint And Reason For Visit No Information Reason For Referral Reason For Referral No Information Plan Of Treatment Date Type Action Status Goal HPV (1st). Due on 4 due Goal Hepatitis C screening. Due o n due Goal Td vaccine. Due on 24 due Goal Unhealthy drug use screening . Due on due Goal Influenza vaccine. Due on due Goal Fluoride varnish application . Due on due Goal Tdap. Due on due Goal Depression screening. Due on due Goal Td vaccine. Due [...] due Goal Colonoscopy. Due on due Goal Depression screening. Due on due Goal FIT. Due on due Goal Influenza vaccine. Due on due Goal FOBT. Due on due Goal Tdap. Due on due Goal Hepatitis C screening. Due o n due Goal HPV (1st). Due on due Goal Unhealthy drug use screening . Due on due Goal FIT-DNA. Due on due Goal CT-Colonography. Due on due Goal HPV (1st). Due on due Goal Influenza vaccine. Due on due Goal Sigmoidoscopy. Due on due Goal Fluoride varnish application . Due on due Goal Depression screening. Due on due Goal CT-Colonography. Due on due Goal Td vaccine. Due on due Goal FIT. Due on due Goal FIT-DNA. Due on due Goal Hepatitis C screening. Due o n due Goal FOBT. Due on due Goal Colonoscopy. Due on 023 due Goal Unhealthy drug use screening . Due on due Goal Tdap. Due on due Goal Tdap. Due on due Goal Colonoscopy. Due on 023 due Goal FIT-DNA. Due on due Goal Hepatitis C screening. Due o n due Goal Sigmoidoscopy. Due on due Goal CT-Colonography. Due on due Goal FOBT. Due on due Goal Unhealthy drug use screening . Due on due Goal HPV (1st). Due on due Goal Fluoride varnish application . Due on due Goal Depression screening. Due on due Goal FIT. Due on due Goal Influenza vaccine. Due on due Goal Tdap. Due on due Goal Depression screening. Due on due Goal Influenza vaccine. Due on due Goal Sigmoidoscopy. Due on due Goal Colonoscopy. Due on due Goal Fluoride varnish application . Due on due Goal HPV (1st). Due on due Goal CT-Colonography. Due on due Goal FIT-DNA. Due on due Goal FOBT. Due on due Goal Hepatitis C screening. Due o n due Goal FIT. Due on due Goal [...] struggles to be around people, but since [email or web address] isn't too busy so he handles it [...] 2 months ago! Got a job at [email or web address]. Functional Status Date Functional Assessmen t No Information Instructions Date Instruction Additional Infor mation No Information Assessments Type Assessment Date assessment Major depressive dis order, single episode, severe with psychotic features ICD10 Patient Care Teams Name Effective Dates (start - stop) Status Members No Information
--- OUTSIDE RECORDS SUMMARY | 2024-02-06 09:45 | XMS_ITS | Continuity of Care Document ---
Author Organization [facility] Address [address] [place] [address] Phone Care Team Providers Care Program Advisor Name Role Phone Marni Hardy Unavailable Unavailable [...] Diagnoses Date Provider Providers Copied on Encounter [facility], [address] [place] [address], [id number] , [place] tel:[phone] [facility] Amphetamine type substance use disorder, severe, in early remission 4 Orlando Grider. [address] [place] [address], [id number], [place]. tel:[phone] PSYCH DIAGNOSTIC EVALUATION [facility], [address] [place] [address], [id number] , [place] tel:+ [phone] [facility] Amphetamine type substance use disorder, severe, in early remission 4 Orlando [facility]. [address] [place] [address], [id number], [place]. tel:[phone] [facility], [address] [place] [address], [id number] , [place] tel: [phone] Dental Clinic Encounter for screening for dental disorders 3 James Cordova. . tel:+ [phone] OFFICE/OUTPA TIENT VISIT, EST [facility], [address] [place] [address], [id number] , [place] tel:+ [phone] [facility] f/u Hospitalization (chief complaint) HeadacheCervic algia 3 Toward MD Guerrero. [address] [place] [address], [id number] , [place]. tel:[phone] [facility], [address] [place] [address], [id number] , [place] tel: [phone] Dental Clinic EMG (chief complaint) Encounter for screening for dental disorders 3 James ANDREW Tasha. . tel:+ [phone] Family History Family Member Type Diagnosis Age At Onset No Information Payers Payer name Insurance type Covered libertarian ID Andrzejshanna house(s) Yadira EUSEBIO [id number] Social History Type Description Quantity Date Captured Comments Sex Male Smoking Status No Information Sexual Orientation Straight or heterosexual Gender Identity Male Chief Complaint And Reason For Visit No Information Reason For Referral Reason For Referral No Information Plan Of Treatment Date Type Action Status Goal Tdap Vaccine. Due on 2023 due [...] due Goal Tobacco cessation counseling completed Goal Hep A. Due on du e Goal Depression screening. Due on due Goal Influenza vaccine. Due on Ap due Goal Tdap. Due on due Goal PRAPARE ASSESSMENT. Due on A due Apr-27-2023 Goal Tdap Vaccine. Due on 2022 due Goal RLP. Due on due Referral Ordered: Physical Therapy (related to Cervicalgia) ordered Referral Referred To: Physical Therapy Ordered: Referrals: Physical [...]
--- OUTSIDE RECORDS SUMMARY | 2024-11-05 12:00 | XMS_ITS ---
Author Organization [facility] es Address [address] [place] [address] Care Team Providers Care Gantry Rigger Name Role Phone Nato Lawson Primary Care Provider [phone] REASON FOR VISIT R/S 10/31 Encounters Encounter Location Date Provider Diagnosis [facility] [address] [place] [address] 2024 Nato Lawson Plan Of Treatment No Information Progress Notes * CAMERON TERESA DDOB:[birth year] (19 yo M)Acc No.[id number]:11/05/2024 Behavioral Health Patient: Jordyn CAMERON OCONNOR Provider: ALFONSO Bonilla :2005 A ge:19 Y S ex:Male Date:11/05/2024 Address:[address], [place], [id number] Subjective: * Chief Complaints: * 1 . R/S 10/31. * Medical History: Objective: * Vitals: Assessment: Plan: * Treatment: * Images: * Electronic signature of ALFONSO Shah on 03/28/2025 at 11:52 AM EDT Sign off status: Pending * Provider: ALFONSO Bonilla Date: 0 11/05/2024 Generated for Printi ng/Faxing/eTransmitting on: 1 11:52 AM EDT
--- OUTSIDE RECORDS SUMMARY | 2024-11-07 10:45 | XMS_ITS ---
Author Organization [facility] es Address [address] [place] [address] Care Team Providers Care Professor Of Forest Planning Name Role Phone Nato Lawson Primary Care Provider Allergies No Known Allergies REASON FOR VISIT F/U Medications Medication SIG (Take, Route, Frequency, Duration) Notes Start Date End Date Status ALPRAZolam 0.5 MG 1 tablet Orally three times a day (tid) as needed (prn); Duration: 30 days As needed 10/17/2024 Active Vraylar 4.5 MG 1 capsule Orally Onc e a day; Duration: 30 days Active Auvelity 45-105 MG 1 tablet Orally twic e a day (bid); Duration: 30 days 08/29/2024 Active Mirtazapine 30 MG 1 tablet at bedtime Orally Once a day; Duration: 30 days 07/03/2024 Active Venlafaxine HCl ER 150 MG 1 capsule with food Orally Once a day; Duration: 30 days Active Venlafaxine HCl ER 75 MG 1 capsule with food Orally Once a day; Duration: 30 days Active Ketamine HCl 100 MG as directed Sublingual Active Vyvanse 70 MG 1 capsule in the morning Orally Once a day; Duration: 30 days 10/29/2024 Active LORazepam 0.5 MG 1 tablet Orally Once a day; Duration: 21 days As needed 07/03/2024 Not-Taking Adderall 15 MG 1 tablet in afternoo n Orally; Duration: 30 days 11/06/2024 Active Social History AUDIT-C (Standard) Question Answer Notes Did you have a drink containing alcohol in the p ast year? No Points 0 Interpretation Negative Encounters Encounter Location Date Provider Diagnosis [facility] [address] [place] [address] 11/07/2024 Nato Lawson Attention deficit hyperactivity disorder (ADHD), combined type F90.2 and Episodic mood disorder F39 Assessments Encounter Date Diagnosis (ICD Code) Assessment Notes Treatment Notes Treatment Clinical Notes Section Notes 11/07/2024 Attention deficit hyperactivity disorder (ADHD), combined type (ICD-10 - F90.2) 11/07/2024 Episodic mood disorder (ICD-10 - F39) Plan Of Treatment Medication Medication Name Sig Start Date Stop Date Notes ALPRAZolam 0.5 MG 1 tablet Orally thre e times a day (tid) as needed (prn); Duration: 30 days 10/17/2024 Vraylar 4.5 MG 1 capsule Orally Onc e a day; Duration: 30 days Vyvanse 70 MG 1 capsule in the mor pilo Orally Once a day; Duration: 30 days 10/29/2024 Adderall 15 MG 1 tablet in afternoo n Orally; Duration: 30 days 11/06/2024 Progress Notes * CAMERON TERESA DDOB:[birth year] (19 yo M)Acc No.[id number]:11/07/2024 Behavioral Health Patient: Jordyn ANASTASIA CAMERON Pacheco Provider: ALFONSO Bonilla :2005 A ge:19 Y S ex:Male Date:11/07/2024 Address:[address] [place] [address], [address] Subjective: * Chief Complaints: * 1 . BH F/U. * Medical History: T MJ. * Surgical History: W is[place] Teeth . * Hospitalization/Major Diagno stic Procedure: p sych x6 , overdose/poisoning from his meds . * Family History: F ather: . M other: alive. P aternal Grand Father: unknown. P aternal Grand Mother: unknown. M aternal Grand Father: alive. M aternal Grand Mother: alive. 3 brother(s) , 1 sister(s) . 1 son(s) . . * Social History: D rug/Alcohol: A TARYN-C (Standard) D id you have a drink containing alcohol in the past year? N o P oints 0 I nterpretation N egative * Medications: T aking Ketamine HCl 100 MG Jenifer as directed Sublingual , Taking Venlafaxine HCl ER 75 MG Capsule Extended Release 24 Hour 1 capsule with food Orally Once a day , Taking Venlafaxine HCl ER 150 MG Capsule Extended Release 24 Hour 1 capsule with food Orally Once a day , Taking Mirtazapine 30 MG Tablet 1 tablet at bedtime Orally Once a day , Taking Auvelity 45-105 MG Tablet Extended Release 1 tablet Orally twice a day (bid) , Taking Vraylar 4.5 MG Capsule 1 capsule Orally Once a day , Taking ALPRAZolam 0.5 MG Tablet 1 tablet Orally three times a day (tid) as needed (prn) As needed, Taking Vyvanse 70 MG Capsule 1 capsule in the morning Orally Once a day , Taking Adderall 15 MG Tablet 1 tablet in afternoon Orally , Not-Taking/PRN LORazepam 0.5 MG Tablet 1 tablet Orally Once a day As needed * Allergies: N .K.D.A. Objective: * Vitals: Assessment: * Assessment: 1. A ttention deficit hyperactivity disorder (ADHD), combined type - F90.2 2 .?Episodic mood disorder - F39 Plan: * Treatment: 2. E pisodic mood disorder Refill Vraylar Capsule, 4.5 MG, 1 capsule, Orally, Once a day, 30 days, 30 Capsule, Refills 0. 3. O thers Refill ALPRAZolam Tablet, 0.5 MG, 1 tablet, Orally, three times a day (tid) as needed (prn) As needed, 30 days, 90, Refills 0. * Images: * Electronic signature of ALFONSO Shah on 03/28/2025 at 11:52 AM EDT Sign off status: Pending * Provider: ALFONSO Bonilla Date: 0 11/07/2024 Generated for Jadon michelle/Donna/Pebbles on: 1 11:52 AM EDT
--- OUTSIDE RECORDS SUMMARY | 2025-03-26 11:08 | XMS_ITS | Continuity of Care Document ---
Author Organization [facility] Address [address] [place] [address] Phone Care Team Providers Care Price Analyst Name Role Phone Nayla Dorsey APRN Primary Care Provider Nayla Dorsey APRN Attending Provider [phone] Care Teams Patient Care Team Team Status: Active Member Role Status Dates Nayla Dorsey APRN Primary Care Provider Active Patient Care Team Team Status: Inactive Member Role Status Dates Nayla Dorsey APRN Primary Care Provider Active Start: March 26, 2025 End: March 26, 2025 Nayla Dorsey APRN Attending Provider Active Start: March 26, 2025 End: March 26, 2025 Chief Complaint and Reason for Visit Chief Complaint Admit Date wants EKG, labs ordered, chest pains Sep tember 2024 1:59pm Allergies, Adverse Reactions, Alerts Allergen Type Severity Reaction Last Updated Verified Status No Known Allergies Allergy Unknown 2024 2:05pm Yes Active Social History Smoking Status Status Start Date End Date Date of Observa tion Smokes tobacco daily (finding) March 26, 2025 2:10pm Observation Status Observation Response Date of Response Legal Sex Male (finding) Sex Assigned At Male [birth year] Family History Relationship Condition Age at Onset Recorded Date/T sameer grandparent Hypertension Unknown Malignant neoplasm Unknown mother Depression Unknown Anxiety Unknown Borderline personality disorder Unknown Chronic mental illness Unknown Problems Active Problems Medical Problem Onset Date Status Comments Opiate addiction Unknown Active Benzodiazepine abuse Unknown Active Insomnia Unknown Active PTSD (post-traumatic stress disorder) Unknown Act ramakrishna Nicotine dependence, other tobacco product, uncomplica jayleen Unknown Active Substance abuse Unknown Active Anxiety Unknown Active Depression Unknown Active Overdose 2023 Active Panic disorder Unknown Active Restless leg Unknown Active TMJ (temporomandibular joint disorder) Unknown Ac tive Bipolar depression Unknown Active Methamphetamine abuse Unknown Active ADHD Unknown Active Panic attack due to exceptional stress Unknown Ac tive Acid reflux Unknown Active Inactive/Resolved Problems Medical Problem Onset Date Status Comments Suicide attempt by multiple drug overdose Unknown Resolved Problem List clean-u p per request of Phys. EHR Cmte Medication side effects Unknown Resolved Prob guillaume List clean-up per request of Phys. EHR Cmte Viral gastroenteritis Unknown Resolved Dizziness Unknown Resolved Problem List cl tisha-up per request of Phys. EHR Cmte TMJ arthralgia Unknown Resolved Back pain Unknown Resolved Otitis externa Unknown Resolved Problem List clean-up per request of Phys. EHR Cmte Major depressive disorder, r ecurrent, moderate Unknown Resolved Problem List clean-u p per request of Phys. EHR Cmte Abnormal electrocardiogram finding Unknown Resolv ed Problem List clean-up per request of Phys. EHR Cmte Rectal bleed Unknown Resolved Opiate overdose Unknown Resolved Substance abuse in remission Unknown Resolved Medications Medication Status Dose Units Route Directions Qty Days St art Date Stop Date End Date Instructions Adherence Lorazepam 1 mg tablet Discont inued 1 MG PO Daily as needed for anxiety November 09, 2023 8:59am November 09, 2023 10:55 am Lorazepam 1 mg tablet Discont inued 1 MG PO Daily as needed for anxiety 15 November 09, 2023 10:55a m [facility] 2023 12:05 pm Venlafaxine 37.5 mg capsule,ext ended release 24hr Discont inued 0 .ROUTE .COMPLEX November 17, 2023 1:58pm [facility] 2023 12:05 pm Take 1 capsule by mouth once daily Prednisone 20 mg tablet Discont inued 0 PO Daily 18 9 er 2023 2:17pm 2024 3:59p m 3 tabs x 3 days, 2 tabs x 3 days, 1 tab x 3 days Tizanidine 4 mg tablet Discont inued 4 MG PO Daily at bedtime as needed for muscle spasticity 14 14 er 2023 2:17pm adal[facility] 2023 7:04p m Tizanidine (Zanaflex) 6 mg capsule Discont inued 6 MG PO Daily at bedtime Novemb er 2023 1:00am Decem [facility] 2023 11:06 am Tizanidine 6 mg capsule Discont inued 0 .ROUTE .COMPLEX Decemb er 2023 11:06a m [facility] 2024 2:08p m TAKE 1 CAPSULE DAILY AT BEDTIME FOR 21 DAYS Ofloxacin 0.3 % drops Discont inued 5 DROPS EAR-RI GHT Twice daily 10 7 October 13, 2022 12:00a m October 21, 2022 11:01 pm Venlafaxine (Effexor Xr) 75 mg Capsule,Ext ended Release 24hr Discont inued 75 MG PO Every morning September 27, 2022 12:00a m October 13, 2022 4:03p m Duloxetine 20 mg capsule,del ayed release(DR/ EC) Discont inued 20 MG PO Daily October 21, 2022 12:00a m October 23, 2022 12:56 pm Acetaminoph en (Tylenol) 325 mg Tablet Discont inued 325 MG PO Q65H as needed for Pain October 22, 2022 12:00a m October 23, 2022 12:56 pm Naproxen 500 mg tablet Discont inued 500 MG PO Twice daily as needed for Pain October 22, 2022 12:00a m October 23, 2022 12:56 pm Naproxen 500 mg tablet Discont inued 500 MG PO Twice daily with meals October 23, 2022 12:00a m October 26, 2022 11:22 am Duloxetine 20 mg capsule,del ayed release(DR/ EC) Discont inued 20 MG PO Daily October 23, 2022 12:00a m October 26, 2022 11:22 am Trazodone 50 mg Tablet Discont inued 50 MG PO Daily at bedtime as needed for Insomnia October 26, 2022 12:00a m [facility] 2022 11:04 am Nicotine 21 mg/24 hr Patch 24 Hour Discont inued 1 EACH TRANSD ERML Daily October 26, 2022 12:00a m [facility] 2022 11:04 am Venlafaxine (Effexor Xr) 150 mg capsule,ext ended release 24hr Discont inued 150 MG PO Daily October 26, 2022 12:00a m [facility] 2022 11:03 am Venlafaxine (Effexor Xr) 150 mg capsule,ext ended release 24hr Discont inued 225 MG PO Daily 2022 11:03a m September 21, 2023 3:29p m Lurasidone 20 mg tablet Discont inued MG 2022 12:00a m September 21, 2023 3:28p m Ibuprofen 800 mg tablet Discont inued 800 MG PO Q8H as needed for pain 20 2022 11:14a m September 21, 2023 3:28p m Ketorolac 10 mg tablet Discont inued 10 MG PO Three times daily as needed for pain 10 2022 12:00a m September 21, 2023 3:28p m Cyclobenzap rine 10 mg tablet Discont inued 10 MG PO Three times daily as needed for muscle spasm 10 2022 12:00a m [facility] 2023 12:05 pm Venlafaxine (Effexor Xr) 150 mg capsule,ext ended release 24hr Active 150 MG PO Daily September 21, 2023 3:27pm in addition to 75mg to equal 225mg Complies with drug therapy Venlafaxine 75 mg capsule,ext ended release 24hr Active 75 MG PO Daily 2023 12:00a m Complies with drug therapy Lamotrigine (Lamictal) 150 mg tablet Discont inued 150 MG PO Daily 2023 12:00a m 2024 4:06p m Multivitami n (Daily Multi-Vitam in) tablet Active 1 TAB PO Daily 2023 12:00a m Complies with drug therapy docusate sodium (Stool Softener) Discont inued PO as needed 2023 12:00a m 2024 4:06p m psyllium husk (Daily Fiber) Discont inued PO 2023 12:00a m 2024 4:04p m Melatonin 10 mg tablet Discont inued 10 MG PO Daily at bedtime as needed 2023 12:00a m [facility] 2024 2:08p m Diphenhydra mine Hcl (Benadryl Allergy) 50 mg tablet Discont inued 50 MG PO Daily at bedtime as needed 2023 12:00a m [facility]2024 2:07p m Cariprazine (Vraylar) 4.5 mg capsule Discont inued MG PO 2024 1:00am [facility]2024 2:07p m Lamotrigine 200 mg tablet Discont inued MG PO 2024 1:00am [facility] 2024 2:07p m Lorazepam 0.5 mg tablet Discont inued MG PO 2024 1:00am [facility] 2024 2:08p m Lisdexamfet amine 60 mg capsule Discont inued MG PO 2024 1:00am [facility]2024 2:07p m Mirtazapine 15 mg tablet Discont inued MG PO 2024 1:00am [facility] 2024 2:08p m Ondansetron 4 mg tablet,disi ntegrating Active 4 MG PO Every 8 hours as needed for nausea and vomiting 15 5 2024 1:00am Complies with drug therapy Venlafaxine (Effexor Xr) 75 mg capsule,ext ended release 24hr Discont inued 75 MG PO Daily September 21, 2023 12:00a m October 06, 2023 11:21 am in addition to 150mg to equal 225mg Lurasidone 40 mg tablet Discont inued 40 MG PO Daily September 21, 2023 12:00a m September 22, 2023 2:31p m Ketorolac 10 mg tablet Discont inued 10 MG PO Twice daily as needed September 21, 2023 12:00a m [facility] 2023 12:05 pm maximum total duration of 5 days from all oral, intranasal, or parenteral formulations Cariprazine (Vraylar) 3 mg capsule Discont inued 3 MG PO Daily September 22, 2023 12:00a m 2024 4:05p m Venlafaxine 37.5 mg capsule,ext ended release 24hr Discont inued 37.5 MG PO Daily October 06, 2023 12:00a m November 17, 2023 1:58p m Lorazepam 1 mg tablet Discont inued 1 MG PO Daily as needed for anxiety 04 05October 31, 2023 12:00a m November 09, 2023 9:01a m Prednisone 20 mg tablet Discont inued 0 PO Daily 18 b er 2023 1:00am 2023 2:18p m 3 tabs x 3 days, 2 tabs x 3 days, 1 tab x 3 days Tizanidine 4 mg tablet Discont inued 4 MG PO Daily at bedtime as needed for muscle spasticity 14 er 2023 1:00am 2023 2:18p m Alprazolam 0.5 mg tablet Active 0.5 MG PO Twice daily as needed 2024 12:00a m Complies with drug therapy Mirtazapine 30 mg tablet Active 30 MG PO Daily 2024 12:00a m Complies with drug therapy Dextroamphe tamine-Amph etamine 15 mg tablet Active 15 MG PO Daily 2024 12:00a m Complies with drug therapy Lisdexamfet amine (Vyvanse) 70 mg capsule Active 70 MG PO Daily 2024 12:00a m Complies with drug therapy Cariprazine (Vraylar) 3 mg capsule Active 3 MG PO Daily 2024 12:00a m Complies with drug therapy Lumateperon e (Caplyta) 42 mg capsule Active 42 MG PO Daily 2024 12:00a m Complies with drug therapy Immunizations Immunization Event Date Not Given Reason Dose Number Fill Plant Operator Lot Number Vaccine Information Statement (VIS) Detail Administration Location COVID-19 mRNA Com[employer] ([employer] June 09, 2021 [id number] COVID-19 mRNAMatt ([employer] June 30, 2021 [id number] diphtheria, TT and 5 pertussis antigens 2003 diphtheria, TT and 5 pertussis antigens January 08, 2004 diphtheria, TT and 5 pertussis antigens March 13, 2004 diphtheria, TT and 5 pertussis antigens October 26, 2004 diphtheria, TT and 5 pertussis antigens March 25, 2009 DTap, unspecified November 16, 2004 Hepatitis A Vaccine, adol/ped, 2 dose November 22, 2014 [id number] Hepatitis A Vaccine, Unspecified December 23, 2015 [id number] Hepatitis B Vaccine, adol/ped dosage 2003 Hepatitis B Vaccine, adol/ped dosage 2003 Hepatitis B Vaccine, adol/ped dosage May 22, 2004 Hib, unspecified formulation November 06, 2004 Human Papillomavirus , 9 Valent March 07, 2018 [id number] Human Papillomavirus , 9 Valent August 18, 2018 [id number] Influenza [id number] Intranasal April 23, 2009 [id number] Inactivated Poliovirus Vaccine 2003 Inactivated Poliovirus Vaccine January 08, 2004 Inactivated Poliovirus Vaccine February 19, 2005 Inactivated Poliovirus Vaccine March 22, 2009 Meningococcal MCV4O October 29, 2020 [id number] A Meningococcal Vaccine (MCV4P) December 23, 2015 [id number] Measles, Mumps, and Rubella Virus Vaccine August 20, 2004 Measles, Mumps, and Rubella Virus Vaccine September 02, 2005 Pneumococcal Conjugate Vaccine, 7 valent 2003 Pneumococcal Conjugate Vaccine, 7 valent January 08, 2004 Pneumococcal Conjugate Vaccine, 7 valent March 13, 2004 Pneumococcal Conjugate Vaccine, 7 valent November 16, 2004 Quadrivalent Influenza June 09, 2021 [id number] Tetanus, Diphtheria, Pertussis (Tdap) November 22, 2014 [id number] Varicella Virus Vaccine August 20, 2004 Varicella Virus Vaccine March 25, 2009 Vital Signs Vital Reading Result Reference Range Collection Date/Time Height 78 [in_i] March 26, 2025 2:04pm Weight 99.79 kg March 26, 2025 2:04pm Body Temperature 97.9 [degF] 97.6-99.0 February 272024 2:04pm Heart Rate 110 /min 60-100 March 26, 2025 2:04pm Respiratory rate 20 /min 12-24 Tawanna 3 0th, 2025 2:04pm Oxygen saturation by Pulse oximetry 99 % 95-100 March 26, 2025 2:04pm BP Systolic 134 mm[Hg] 100-140 March 26, 2025 2:04pm BP Diastolic 84 mm[Hg] 60-100 March 26, 2025 2:04pm BMI (Body Mass Index) 25.4 kg/m2 2024 2:04pm Advance Directives Advance Directive Response Recorded Date/ Time Advance Directives No September 27 2:57pm Insurance Providers Guarantor Tara Lam Address [address] [place] [address] [address] [facility] [address] Contact Info. Home Phone: Payer Policy Id Subscriber's Name Subscriber Id Effective Date Expiration Date Yadira AMBROSE/KIRT [id number] Tara Lam [id number] [employer] [id number] Tara Lam [id number] [place] [id number] Tara Lam [id number] [employer] [id number] Tara Lam [id number] Encounters Encounter Location(s) Arrival/Admit Date Discharge/Depart Date Provider(s) Departed Physician/Prov ider Office Visit -[facility] [place] March 26, 2025 1:59pm March 26, 2025 3:07pm Nayla Dorsey , CAR CARDER
--- NOTE | 2025-03-28 | ECG_ITS ---
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 Measurements Intervals Edwards Rate: 83 P: 64 OK: 151 QRS: 99 QRSD: 95 T: 67 QT: 334 QTc: 393 Interpretive Statements SINUS RHYTHM BORDERLINE RIGHT AXIS DEVIATION [QRS AXIS > 90] INCOMPLETE RIGHT BUNDLE BRANCH BLOCK [90+ ms QRS DURATION, TERMINAL R IN V1/V2, 40+ ms S IN I/aVL/V4/V5/V6] ST ELEVATION, PROBABLY EARLY REPOLARIZATION [ST ELEVATION WITH NORMALLY INFLECTED T WAVE] Abnormal ECG Compared to ECG 05/14/2024 02:13:02 Incomplete right bundle-branch block now present Electronically Signed On 03-28-2025 15:34:55 EDT by MIGUEL ÁNGEL GAMEZ M.D.
--- OUTSIDE RECORDS SUMMARY | 2025-03-28 11:52 | XMS_ITS | Continuity of Care Document ---
Author Organization [facility] Address [address] [place] [address] Phone Support Name Relationship Address Phone Gina Saenz Personal Relationship [address] [place] [address] Nayla Dorsey [place] [address] Gonzalez Michaels DO Personal Relationship [address] [place] [address] Care Teams Patient Care Team Team Status: Active Member Role Status Dates Nayla Dorsey APRN Primary Care Provider Active Patient Care Team Team Status: Active Member Role Status Dates Nayla Dorsey APRN Primary Care Provider Active Start: May 14, 2024 Gonzalez Michaels DO Attending Provider Active Sta rt: May 14, 2024 Allergies, Adverse Reactions, Alerts No known allergies Social History Smoking Status Status Start Date End Date Date of Observa tion Smoker (finding) November 13 024 4:34am Observation Status Observation Response Date of Response Sex Assigned At Male [birth year] Family History Relationship Condition Age at Onset Recorded Date/T sameer grandparent Hypertension Unknown Malignant neoplasm Unknown mother Depression Unknown Anxiety Unknown Borderline personality disorder Unknown Chronic mental illness Unknown Problems Active Problems Medical Problem Onset Date Status Comments Insomnia Unknown Active PTSD (post-traumatic stress disorder) Unknown Act ramakrishna Nicotine dependence, other tobacco product, uncomplica jayleen Unknown Active Anxiety Unknown Active Back pain Unknown Active Depression Unknown Active Overdose Unknown Active Restless leg Unknown Active TMJ (temporomandibular joint disorder) Unknown Ac tive Rectal bleed Unknown Active Panic attack due to exceptional stress Unknown Ac tive 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 EHR Cmte Medication side effects Unknown Resolved Prob guillaume List clean-up per request of Phys. EHR Cmte Dizziness Unknown Resolved Problem List cl tisha-up per request of Phys. EHR Cmte TMJ arthralgia Unknown Resolved Otitis externa Unknown Resolved Problem List clean-up per request of Phys. EHR Cmte Major depressive disorder, r ecurrent, moderate Unknown Resolved Problem List clean-u p per request of Phys. EHR Cmte Abnormal electrocardiogram finding Unknown Resolv ed Problem List clean-up per request of Phys. EHR Cmte Opiate overdose Unknown Resolved Medications Medication Status Dose Units Route Directions Qty Days St art Date Stop Date End Date Instructions Adherence Lorazepam 1 mg tablet Discont inued 1 MG PO Daily as needed for anxiety November 09, 2023 8:59am November 09, 2023 10:55 am Lorazepam 1 mg tablet Discont inued 1 MG PO Daily as needed for anxiety November 09, 2023 10:55a m [facility] 2023 12:05 pm Venlafaxine 37.5 mg capsule,ext ended release 24hr Discont inued 0 .ROUTE .COMPLEX November 17, 2023 1:58pm [facility] 2023 12:05 pm Take 1 capsule by mouth once daily Prednisone 20 mg tablet Discont inued 0 PO Daily 18 9 2023 2:17pm 2024 3:59p m 3 tabs x 3 days, 2 tabs x 3 days, 1 tab x 3 days Tizanidine 4 mg tablet Discont inued 4 MG PO Daily at bedtime as needed for muscle spasticity 14 2023 2:17pm 2023 7:04p m Tizanidine (Zanaflex) 6 mg capsule Discont inued 6 MG PO Daily at bedtime 2023 1:00am 2023 11:06 am Tizanidine 6 mg capsule Active 0 .ROUTE .COMPLEX Dece er 2023 11:06a m TAKE 1 CAPSULE DAILY AT BEDTIME FOR 21 DAYS Ofloxacin 0.3 % drops Discont inued 5 DROPS EAR-RI GHT Twice daily 10 October 13, 2022 12:00a m October 21, [...] for Insomnia October 26, 2022 12:00a m [facility] 2022 11:04 am Nicotine 21 mg/24 hr Patch 24 Hour Discont inued 1 EACH TRANSD ERML Daily October 26, 2022 12:00a m [facility] 2022 11:04 am Venlafaxine (Effexor Xr) 150 mg capsule,ext ended release 24hr Discont inued 150 MG PO Daily October 26, 2022 12:00a m [facility] 2022 11:03 am Venlafaxine (Effexor Xr) 150 mg capsule,ext ended release 24hr Discont inued 225 MG PO Daily 2022 11:03a m September 21, 2023 3:29p m Lurasidone 20 mg tablet Discont inued MG TABLET 2022 12:00a m September 21, 2023 3:28p m Ibuprofen 800 mg tablet Discont inued 800 MG PO Q8H as needed for pain 20 2022 11:14a m September 21, 2023 3:28p m Ketorolac 10 mg tablet Discont inued 10 MG PO Three times daily as needed for pain 10 3 2022 12:00a m September 21, 2023 3:28p m Cyclobenzap rine 10 mg tablet Discont inued 10 MG PO Three times daily as needed for muscle spasm 10 2022 12:00a m [facility] 2023 12:05 pm Venlafaxine (Effexor Xr) 150 mg capsule,ext ended release 24hr Active 150 MG PO Daily September 21, 2023 3:27pm in addition to 75mg to equal 225mg Venlafaxine 75 mg capsule,ext ended release 24hr Active 75 MG PO Daily 2023 12:00a m Lamotrigine (Lamictal) 150 mg tablet Discont inued 150 MG PO Daily 2023 12:00a m [facility] 2024 4:06p m Multivitami n (Daily Multi-Vitam in) tablet Active 1 TAB PO Daily 2023 12:00a m docusate sodium (Stool Softener) Discont inued PO as needed 2023 12:00a m [facility] 2024 4:06p m psyllium husk (Daily Fiber) Discont inued PO 2023 12:00a m [facility] 2024 4:04p m Melatonin 10 mg tablet Active 10 MG PO Daily at bedtime as needed 2023 12:00a m Diphenhydra mine Hcl (Benadryl Allergy) 50 mg tablet Active 50 MG PO Daily at bedtime as needed 2023 12:00a m Cariprazine (Vraylar) 4.5 mg capsule Active MG PO 2024 1:00am Lamotrigine 200 mg tablet Active MG PO 2024 1:00am Lorazepam 0.5 mg tablet Active MG PO 2024 1:00am Lisdexamfet amine 60 mg capsule Active MG PO 2024 1:00am Mirtazapine 15 mg tablet Active MG PO 2024 1:00am Ondansetron 4 mg tablet,disi ntegrating Active 4 MG PO Every 8 hours as needed for nausea and vomiting 2024 1:00am Venlafaxine (Effexor Xr) 75 mg capsule,ext ended [...] as needed September 21, 2023 12:00a m [facility] 2023 12:05 pm maximum total duration of [...] Discont inued 0 PO Daily 18 9 b er 2023 1:00am ad[facility] 2023 2:18p m 3 tabs x 3 days, 2 tabs x 3 days, 1 tab x 3 days Tizanidine 4 mg tablet Discont inued 4 MG PO Daily at bedtime as needed for muscle spasticity 14 14 er 2023 1:00am ad[facility] 2023 2:18p m Advance Directives Advance Directive Response Recorded Date/ Time Advance Directives No September 27 2:57pm Insurance Providers Guarantor Tara Lam Address [address] [facility] [address] Contact Info. Home Phone: Payer Policy Id Subscriber's Name Subscriber Id Effective Date Expiration Date Yadira AMBROSE/BS [id number] Tara Lam [id number] [facility] [id number] Tara Lam [id number] [facility] [id number] Tara Lam [id number] [facility] Medicaid [id number] Tara Lam [id number] Encounters Encounter Location(s) Arrival/Admit Date Discharge/Depart Date Provider(s) Non-patient / Non-visit [facility] ER May 14, 2024 7:53am Gonzalez Michaels DO Plan of Treatment Future Tests Future scheduled test information is unavailable Pending Tests Test Name Ordered Date Scheduled Date XR lumbar spine min 4V* May 01, 2024 12:50 pm XR thoracic spine 3V* May 01, 2024 12:50pm Future Visits Future appointment information is unavailable Referrals to Other Providers Referral information is unavailable Future Procedures Procedure Name Ordered Date Scheduled Date AMB POC COVID/Flu A/B PCR July 17, 2024 4:0 9pm Future Medications Future medication information is unavailable Patient Instructions Patient instructions are unavailable
--- OUTSIDE RECORDS SUMMARY | 2025-03-28 11:52 | XMS_ITS | Clinical Summary ---
Author Organization [facility] Address [address] [place] [address] Phone Care Team Providers Care Data Sme Name Role Phone Gypsy Zapataanda Adele W[employer] Primary Care Provider Social History Tobacco Use Types Packs/Day Years Used Date Smoking Tobacco: Never Assessed Sex and Gender Information Value Date Recorded Sex Assigned at Not on file Legal Sex Male 1:10 AM EST Gender Identity Not on file Sexual Orientation Not on file Last Filed Vital Signs Vital Sign Reading Time Taken Comments Blood Pressure 102/62 11/05/2021 2:21 PM EDT Pulse 106 11/05/2021 2:21 PM EDT Temperature 36.6 C (97.9 F) 05/04/2012 12:00 AM EST Respiratory Rate - - Oxygen Saturation 98% 11/05/2021 2:21 PM EDT Inhaled Oxygen Concentration - - Weight 86.6 kg (191 lb) 11/05/2021 2:21 PM EDT Height 198.1 cm (6' 6 ) 11/05/2021 2:21 PM EDT Body Mass Index 22.07 11/05/2021 2:21 PM EDT Plan of Treatment Health Maintenance Due Date Last Done Comments HIV Screening 2003 Lipid Panel 2003 Yearly Adult Physical 2003 Hearing Screening (#1) 2007 Meningococcal B Vaccine (1 of 2 - Standard) 2019 Hepatitis C Screening 2021 DTaP/Tdap/Td Vaccines (7 - Td or Tdap) 11/22/2024 11/22/2014, 03/25/2009, 10/27/2004, Additional history exists COVID-19 Vaccine (1 - season) 2025 Influenza Vaccine (#1) 2025 , 05/04/2012, 04/23/2009, Additional history exists Zoster Vaccines (1 of 2) 2053 03/25/2009, 07/29 Hepatitis B Vaccines Completed 05/22/2004, 2003, 2003 HIB Vaccines Completed 11/16/2004, 02/25, 01/08/2004, Additional history exists Pneumococcal Vaccine: Pediatrics and At-Risk Adult Patients Completed 11/16/2004, 03/13/2004, 01/08/2004, Additional history exists MMR Vaccines Completed 09/02/2005, 08/20/2004 IPV Vaccines Completed 03/25/2009, 01/26, 01/08/2004, Additional history exists Hepatitis A Vaccines Completed 12/23/2015, 11/23/19 15 HPV Vaccines Completed 08/18/2018, 03/07/2018 Meningococcal Vaccine Completed 10/29/2020, 016 Rotavirus Vaccines Aged Out No longer eligible based on patient's age to complete this topic Care Teams Data Sme Relationship Specialty Start Date End Date Linnea Zapata, CLOTH TEARER[employer] PCP - General 11/05/21
--- OUTSIDE RECORDS SUMMARY | 2025-03-28 11:52 | XMS_ITS | Clinical Summary ---
Author Organization [facility] Address [address] [place] [address] Care Team Providers Care Clay Mixer Name Role Phone Unavailable Primary Care Provider Unavailabl e Social History Tobacco Use Types Packs/Day Years Used Date Smoking Tobacco: Never Assessed Sex and Gender Information Value Date Recorded Sex Assigned at Not on file Legal Sex Male 11:13 AM EST Gender Identity Not on file Sexual Orientation Not on file Plan of Treatment Not on file
--- OUTSIDE RECORDS SUMMARY | 2025-03-28 11:52 | XMS_ITS | Patient Health Record ---
Author Organization [email or web address] [facility] Serv es Address [address] [place] [address] Care Team Providers Care Chopped Strand Operator Name Role Phone Nato Lawson Primary Care Provider [phone] Fatuma Reyes Unavailable [phone] Meme Rowell Unavailable [phone] Kerry Bergman Unavailable [phone] Allergies No Known Allergies Reason For Referral No Information Medications Medication SIG (Take, Route, Frequency, Duration) Notes Start Date End Date Status Mirtazapine 30 MG 1 tablet at bedtime Orally Once a day; Duration: 30 days 07/03/2024 Active Vraylar 4.5 MG 1 capsule Orally Onc e a day; Duration: 30 days Active Venlafaxine HCl ER 150 MG 1 capsule with food Orally Once a day; Duration: 30 days Active LORazepam 0.5 MG 1 tablet Orally Once a day; Duration: 21 days As needed 07/03/2024 Not-Taking Caplyta 21 MG as directed Orally; Duration: 30 days 12/19/2024 Active Auvelity 45-105 MG 1 tablet Orally twic e a day (bid); Duration: 30 days 08/29/2024 Not-Taking Venlafaxine HCl ER 75 MG 1 capsule with food Orally Once a day; Duration: 30 days Active ALPRAZolam 0.5 MG 1 tablet Orally three times a day (tid) as needed (prn); Duration: 30 days As needed 01/16/2025 Active Ketamine HCl 100 MG as directed Sublingual Not-Taking Vyvanse 70 MG 1 capsule in the morning Orally Once a day; Duration: 30 days 01/16/2025 Active Adderall 15 MG 1 tablet in afternoo n Orally; Duration: 30 days 01/16/2025 Active Social History Tobacco Use: Social History Observation Description Date Details (start date - stop date) Unknown Depression Screening (PHQ-9): Question Answer Notes Little interest or pleasure in doing things More than half the days Feeling down, depressed, or hopeless More than h residential the days Trouble falling or staying asleep, or sleeping t oo much Several days Feeling tired or having little energy Nearly herb ry day Poor appetite or overeating Not at all Feeling bad about yourself-o r that you are a failure or have let yourself or your family down Nearly every day Trouble concentrating on thi ngs, such as reading the newspaper or watching television Nearly every day Moving or speaking so slowly that other people could have noticed. Or the opposite being so fidgety or restless that you have been moving around a lot more than usual Not at all Thoughts that you would be b liza off , or of hurting yourself in some way Not at all Total Score 14 Intepretation Moderate Depression AUDIT-C (Standard) Question Answer Notes Did you have a drink containing alcohol in the p ast year? No Points 0 Interpretation Negative Tobacco Control (Standard) Question Answer Notes Tobacco use: Uses tobacco in other forms Additional Findings: Tobacco user User of moist powdered tobacco Problems Problem Type SNOMED Code ICD Code Onset Dates Problem Status W/U Status Risk Notes Problem Insomnia (886644373) Insomnia, unspecified type (G47.00) Active confirmed Problem Episodic mood disorder (27288085632855) Episodic mood disorder (F39) Active confirmed Problem Attention deficit hyperactivity disorder (516259671) Attention deficit hyperactivity disorder (ADHD), combined type (F90.2) Active confirmed Vital Signs Heart Rate 118 /min 12/19/2024 Temperature 99.4 degrees Fahrenheit 08/29/2024 Oximetry 94 % 12/19/2024 Blood pressure diastolic 86 mm Hg 12/19/2024 Height 78 in 12/19/2024 Blood pressure systolic 144 mm Hg 12/19/2024 Weight 203.8 lbs 12/19/2024 BMI 23.55 kg/m2 12/19/2024 Encounters Encounter Location Date Provider Diagnosis [facility] [address] [place] [address] 05/10/2024 Ki Soviak Insomnia, unspecifie d type G47.00 and Attention deficit hyperactivity disorder (ADHD), combined type F90.2 [facility] [address] [place] [address] 05/21/2024 Kip Soviak Episodic mood disord er F39 [facility] [address] [place] [address] 06/15/2024 Kip Soviak Episodic mood disord er F39 [facility] [address] [place] [address] 07/11/2024 Ki Soviak [facility] [address] [place] [address] 07/24/2024 Kip Soviak Episodic mood disord er F39 [facility] [address] [place] [address] 07/30/2024 Kip Soviak Attention deficit hyperactivity disorder (ADHD), combined type F90.2 [place] [address] [place] [address] 08/20/2024 [facility] [address] [place] [address] 08/20/2024 [facility] [address] 08/28/2024 Kip Soviak Attention deficit hyperactivity disorder (ADHD), combined type F90.2 [facility] [address] [place] [address] 09/17/2024 Ki Soviak [facility] [address] [place] [address] 09/24/2024 Kip Soviak Episodic mood disord er F39 [facility] [address] [place] [address] 09/27/2024 Meme Rowell Attention deficit hyperactivity disorder (ADHD), combined type F90.2 [facility] [address] [place] [address] 10/17/2024 Kip Soviak [facility] [address] [place] [address] 10/29/2024 Kip Soviak Attention deficit hyperactivity disorder (ADHD), combined type F90.2 [facility] [address] [place] [address] 11/05/2024 Kip Soviak Attention deficit hyperactivity disorder (ADHD), combined type F90.2 [facility] [address] [place] [address] 11/20/[address] [facility] [place] [address] 12/03/2024 Kip Soviak Attention deficit hyperactivity disorder (ADHD), combined type F90.2 [facility] [address] [place] [address] 12/14/2024 Kip Soviak Attention deficit hyperactivity disorder (ADHD), combined type F90.2 [facility] [address] [place] [address] 12/20/2024 Kerry Bergman [place] [place] [address] 01/29/2025 Kerry Bergman [place] [address] [place] [address] 08/29/2024 Kip Soviak Insomnia, unspecifie d type G47.00 ; Episodic mood disorder F39 and Attention deficit hyperactivity disorder (ADHD), combined type F90.2 [place] [address] [place] [address] 11/21/2024 Kip Soviak Episodic mood disord er F39 ; Attention deficit hyperactivity disorder (ADHD), combined type F90.2 and Insomnia, unspecified type G47.00 [place] [address] [place] [address] 12/19/2024 Kip Soviak Episodic mood disord er F39 [place] [address] [facility] [place] [address] 01/16/2025 Kip Soviak Episodic mood disord er F39 ; Insomnia, unspecified type G47.00 and Attention deficit hyperactivity disorder (ADHD), combined type F90.[address] [place] [address] 10/03/2024 Kip Soviak Episodic mood disord er F39 and Attention deficit hyperactivity disorder (ADHD), combined type F90.2 [facility] [address] [facility] [place] [address] 04/12/2024 Fatuma Reyes Episodic mood disord er F39 [address] [place] [address] 05/10/2024 Kip Soviak Insomnia, unspecifie d type G47.00 and Attention deficit hyperactivity disorder (ADHD), combined type F90.2 [facility] [place] [address] 06/07/2024 Kip Soviak Insomnia, unspecifie d type G47.00 and Attention deficit hyperactivity disorder (ADHD), combined type F90.[address] [place] [address] 07/03/2024 Kip Soviak Episodic mood disord er F39 ; Insomnia, unspecified type G47.00 and Attention deficit hyperactivity disorder (ADHD), combined type F90.2 Assessments Encounter Date Diagnosis (ICD Code) Assessment Notes Treatment Notes Treatment Clinical Notes Section Notes 11/21/2024 Episodic mood disorder (ICD-10 - F39) Patient will continue current treatment plan. Patient verbally acknowledges understanding instructions including medication education and has no further questions comments or concerns at this time. . Follow in 1 Month . Recommended treatment for Bipolar disorder includes FDA approved and OFF label medications: second generation antipsychotics and mood stabilizers. Discussed life threatening side effect of Lamotrigine. Pt is to monitor for new skin rashes or sensation of a sunburn or itchiness or redness, mouth sores or sores in mucus membranes, and call provider immediately and or go to ER, and stop the medication. Second generation antipsychotic medications can cause headache, drowsiness, agitation, dizziness, nausea, or extrapyramidal symptoms such as tremors, muscle spasms, slowness of movement or jerking of muscles. . Stable . The patient verbalizes understanding with all questions answered thoroughly and is in agreement with treatment plan. . Continue current treatment. Call for problems . GOALS: . Maintain medication regimen . _Improve mood stability . _Improve anxiety control . _Improve social and interpersonal functioning . Patient/Guardian will call sooner if symptoms worsen. Patient understands to go to ER if needed if symptoms become severe. . Crisis Intervention plan was discussed and agreed upon. Patient/Guardian will call 911 in case of emergency. Emergency contact information was provided to the patient/guardian. . Pharmacological management: . Alternative medication plans were discussed with the patient/guardian. All relevant side effects and potential adverse effects were discussed with the patient/guardian. Standard cautions and potential benefits were discussed. Patient/Guardian consented to the start/continuatio n of the treatment. 12/19/2024 Episodic mood disorder (ICD-10 - F39) Patient will trial 10.5 mg of Caplyta for the next month follow-up in 30 days to discuss and evaluate. Patient will continue current treatment plan. Patient verbally acknowledges understanding instructions including medication education and has no further questions comments or concerns at this time. . Follow in 1 Month . Recommended treatment for Bipolar disorder includes FDA approved and OFF label medications: second generation antipsychotics and mood stabilizers. Discussed life threatening side effect of Lamotrigine. Pt is to monitor for new skin rashes or sensation of a sunburn or itchiness or redness, mouth sores or sores in mucus membranes, and call provider immediately and or go to ER, and stop the medication. Second generation antipsychotic medications can cause headache, drowsiness, agitation, dizziness, nausea, or extrapyramidal symptoms such as tremors, muscle spasms, slowness of movement or jerking of muscles. . Stable . The patient verbalizes understanding with all questions answered thoroughly and is in agreement with treatment plan. . Continue current treatment. Call for problems . GOALS: . Maintain medication regimen . _Improve mood stability . _Improve anxiety control . _Improve social and interpersonal functioning . Patient/Guardian will call sooner if symptoms worsen. Patient understands to go to ER if needed if symptoms become severe. . Crisis Intervention plan was discussed and agreed upon. Patient/Guardian will call 911 in case of emergency. Emergency contact information was provided to the patient/guardian. . Pharmacological management: . Alternative medication plans were discussed with the patient/guardian. All relevant side effects and potential adverse effects were discussed with the patient/guardian. Standard cautions and potential benefits were discussed. Patient/Guardian consented to the start/continuatio n of the treatment. 01/16/2025 Insomnia, unspecified type (ICD-10 - G47.00) Informed consent obtained: YES, we discussed the diagnosis/diagnos es, the treatment options, treatment(s) recommendations vs. no treatment. We discussed risks and benefits of treatment options, treatment recommendations vs. no treatment. Currently at low risk for self harm. Denies ongoing feelings of hopelessness. Denies ongoing suicidal ideation, intent or plan in session. Pharmacological management: Alternative medication plans were discussed with the patient and or guardian. All relevant and serious adverse effects were discussed. Standard precautions and potential benefits were discussed. Patient/Guardian consented to begin medication/ continue treatment plan. questions answered satisfactorily, agreeable to treatment plan Cont current treatment Tolerating meds well, compliant Call for problems Follow up 3 months Patient/Guardian will call sooner if symptoms worsen. Patient understands to go to the ER if needed if symptoms become severe. Crisis intervention plan was discussed and agreed upon. Patient/Guardian will call 911 in case of emergency. Emergency contact information was provided to the patient/guardian. 01/16/2025 Episodic mood disorder (ICD-10 - F39) Patient will continue current treatment plan. Patient verbally acknowledges understanding instructions including medication education and has no further questions comments or concerns at this time. . Follow in 1 Month . Recommended treatment for Bipolar disorder includes FDA approved and OFF label medications: second generation antipsychotics and mood stabilizers. Discussed life threatening side effect of Lamotrigine. Pt is to monitor for new skin rashes or sensation of a sunburn or itchiness or redness, mouth sores or sores in mucus membranes, and call provider immediately and or go to ER, and stop the medication. Second generation antipsychotic medications can cause headache, drowsiness, agitation, dizziness, nausea, or extrapyramidal symptoms such as tremors, muscle spasms, slowness of movement or jerking of muscles. . Stable . The patient verbalizes understanding with all questions answered thoroughly and is in agreement with treatment plan. . Continue current treatment. Call for problems . GOALS: . Maintain medication regimen . _Improve mood stability . _Improve anxiety control . _Improve social and interpersonal functioning . Patient/Guardian will call sooner if symptoms worsen. Patient understands to go to ER if needed if symptoms become severe. . Crisis Intervention plan was discussed and agreed upon. Patient/Guardian will call 911 in case of emergency. Emergency contact information was provided to the patient/guardian. . Pharmacological management: . Alternative medication plans were discussed with the patient/guardian. All relevant side effects and potential adverse effects were discussed with the patient/guardian. Standard cautions and potential benefits were discussed. Patient/Guardian consented to the start/continuation of the treatment. 11/21/2024 Attention deficit hyperactivity disorder (ADHD), combined type (ICD-10 - F90.2) . FDA approved stimulant medication for this age group. Discussed/Denies adverse effects from medication including HTN, tachycardia, insomnia, irritability, headache, or decreased appetite. . All relevant and serious adverse effects were discussed. Standard precautions and potential benefits were discussed. Patient/Guardian consented to begin medication/ continue treatment plan . Patient continues to meet criteria for attention deficit hyperactivity disorder. Pt does not meet criteria for bipolar disorder, major depressive disorder, or other persistent mood disorders. Will continue to monitor the patient for presentation of new symptoms or behaviors. . Continue current treatment; tolerating meds well, compliant; call for problems; questions answered satisfactorily, agreeable to treatment plan . GOALS: . Maintain medication regimen _Improve social and interpersonal functioning _Improve attention and or hyperactivity . follow up 3 months . Crisis Intervention plan was discussed and agreed upon. Patient/Guardian will call 911 in case of emergency. Emergency contact information was provided to the patient/guardian. . OARRS reviewed . 12/03/2024 Attention deficit hyperactivity disorder (ADHD), combined type (ICD-10 - F90.2) 12/14/2024 Attention deficit hyperactivity disorder (ADHD), combined type (ICD-10 - F90.2) 09/24/2024 Episodic mood disorder (ICD-10 - F39) 09/27/2024 Attention deficit hyperactivity disorder (ADHD), combined type (ICD-10 - F90.2) 10/03/2024 Episodic mood disorder (ICD-10 - F39) Patient will continue current treatment plan. Patient verbally acknowledges understanding instructions including medication education and has no further questions comments or concerns at this time. . Follow in 1 Month . Recommended treatment for Bipolar disorder includes FDA approved and OFF label medications: second generation antipsychotics and mood stabilizers. Discussed life threatening side effect of Lamotrigine. Pt is to monitor for new skin rashes or sensation of a sunburn or itchiness or redness, mouth sores or sores in mucus membranes, and call provider immediately and or go to ER, and stop the medication. Second generation antipsychotic medications can cause headache, drowsiness, agitation, dizziness, nausea, or extrapyramidal symptoms such as tremors, muscle spasms, slowness of movement or jerking of muscles. . Stable . The patient verbalizes understanding with all questions answered thoroughly and is in agreement with treatment plan. . Continue current treatment. Call for problems . GOALS: . Maintain medication regimen . _Improve mood stability . _Improve anxiety control . _Improve social and interpersonal functioning . Patient/Guardian will call sooner if symptoms worsen. Patient understands to go to ER if needed if symptoms become severe. . Crisis Intervention plan was discussed and agreed upon. Patient/Guardian will call 911 in case of emergency. Emergency contact information was provided to the patient/guardian. . Pharmacological management: . Alternative medication plans were discussed with the patient/guardian. All relevant side effects and potential adverse effects were discussed with the patient/guardian. Standard cautions and potential benefits were discussed. Patient/Guardian consented to the start/continuatio n of the treatment. 10/03/2024 Attention deficit hyperactivity disorder (ADHD), combined type (ICD-10 - F90.2) OARRS reviewed . Informed consent obtained: YES, we discussed the diagnosis/diagnos es, the treatment options, treatment(s) recommended vs. no treatment. We discussed risks and benefits of treatment options, treatment recommendations vs. no treatment. . . Patient continues to meet criteria for attention deficit hyperactivity disorder. Pt does not meet criteria for bipolar disorder, major depressive disorder, or other persistent mood disorders. Will continue to monitor the patient for presentation of new symptoms or behaviors. . . FDA approved stimulant medication for this age group. Discussed/Denies adverse effects from medication including HTN, tachycardia, insomnia, irritability, headache, or decreased appetite. . . Discussed lifestyle/diet changes to help improve BMI. Recommend increasing activity, reducing portion sizes, limiting carbohydrates, increasing protein as appropriate. Discussed referral to property assessment monitor if problem persists. . . Continue current treatment plan, tolerating meds well, compliant; call for problems . GOALS: Maintain medication regimen Maintain mood stability Maintain anxiety stability Maintain social and interpersonal functioning Maintain attention and hyperactivity . . Currently at low risk for self harm. Denies ongoing feelings of hopelessness. Denies ongoing suicidal ideation, intent or plan in session. . 10/29/2024 Attention deficit hyperactivity disorder (ADHD), combined type (ICD-10 - F90.2) 11/05/2024 Attention deficit hyperactivity disorder (ADHD), combined type (ICD-10 - F90.2) 04/12/2024 Episodic mood disorder (ICD-10 - F39) Recommended treatment is: Recommended treatment includes FDA approved and OFF label medications: second generation antipsychotics and mood stabilizers. Discussed life threatening side effect of Lamotrigine. Pt is to monitor for new skin rashes or sensation of a sunburn or itchiness or redness, mouth sores or sores in mucus membranes, and call provider immediately and or go to ER, and stop the medication. Second generation antipsychotic medications can cause headache, drowsiness, agitation, dizziness, nausea, or extrapyramidal symptoms such as tremors, muscle spasms, slowness of movement or jerking of muscles. Stable The patient verbalizes understanding with all questions answered thoroughly and is in agreement with treatment plan. Will increase Lamictal to help with mood. Call for problems . GOALS: . Maintain medication regimen _Improve mood stability _Improve anxiety control _Improve social and interpersonal functioning Patient/Guardian will call sooner if symptoms worsen. Patient understands to go to ER if needed if symptoms become severe. Crisis Intervention plan was discussed and agreed upon. Patient/Guardian will call 911 in case of emergency. Emergency contact information was provided to the patient/guardian. follow up 4 weeks 05/10/2024 Insomnia, unspecified type (ICD-10 - G47.00) Patient will trial quviviq 50 mg. Patient and the past has unsuccessfully trialed trazodone, Seroquel, mirtazapine, ramelteon, Ambien, Lunesta. Follow up in 30 days to discuss and evaluate this medication. 05/10/2024 Attention deficit hyperactivity disorder (ADHD), combined type (ICD-10 - F90.2) Patient will trial 40 mg of Vyvanse follow-up in 30 days to discuss and evaluate. OARRS reviewed . Informed consent obtained: YES, we discussed the diagnosis/diagnos es, the treatment options, treatment(s) recommended vs. no treatment. We discussed risks and benefits of treatment options, treatment recommendations vs. no treatment. . . Patient continues to meet criteria for attention deficit hyperactivity disorder. Pt does not meet criteria for bipolar disorder, major depressive disorder, or other persistent mood disorders. Will continue to monitor the patient for presentation of new symptoms or behaviors. . . FDA approved stimulant medication for this age group. Discussed/Denies adverse effects from medication including HTN, tachycardia, insomnia, irritability, headache, or decreased appetite. . . Discussed lifestyle/diet changes to help improve BMI. Recommend increasing activity, reducing portion sizes, limiting carbohydrates, increasing protein as appropriate. Discussed referral to property assessment monitor if problem persists. . . Continue current treatment plan, tolerating meds well, compliant; call for problems . GOALS: Maintain medication regimen Maintain mood stability Maintain anxiety stability Maintain social and interpersonal functioning Maintain attention and hyperactivity . . Currently at low risk for self harm. Denies ongoing feelings of hopelessness. Denies ongoing suicidal ideation, intent or plan in session. . 05/10/2024 Insomnia, unspecified type (ICD-10 - G47.00) 05/21/2024 Episodic mood disorder (ICD-10 - F39) 06/07/2024 Insomnia, unspecified type (ICD-10 - G47.00) Prescription for quviviq resent to pharmacy patient was advised to watch for the telephone call to establish connection with pharmacy. Follow up in 30 days to evaluate. 06/07/2024 Attention deficit hyperactivity disorder (ADHD), combined type (ICD-10 - F90.2) OARRS reviewed . Informed consent obtained: YES, we discussed the diagnosis/diagnos es, the treatment options, treatment(s) recommended vs. no treatment. We discussed risks and benefits of treatment options, treatment recommendations vs. no treatment. . . Patient continues to meet criteria for attention deficit hyperactivity disorder. Pt does not meet criteria for bipolar disorder, major depressive disorder, or other persistent mood disorders. Will continue to monitor the patient for presentation of new symptoms or behaviors. . . FDA approved stimulant medication for this age group. Discussed/Denies adverse effects from medication including HTN, tachycardia, insomnia, irritability, headache, or decreased appetite. . . Discussed lifestyle/diet changes to help improve BMI. Recommend increasing activity, reducing portion sizes, limiting carbohydrates, increasing protein as appropriate. Discussed referral to property assessment monitor if problem persists. . . Continue current treatment plan, tolerating meds well, compliant; call for problems . GOALS: Maintain medication regimen Maintain mood stability Maintain anxiety stability Maintain social and interpersonal functioning Maintain attention and hyperactivity . . Currently at low risk for self harm. Denies ongoing feelings of hopelessness. Denies ongoing suicidal ideation, intent or plan in session. . 06/15/2024 Episodic mood disorder (ICD-10 - F39) 07/03/2024 Insomnia, unspecified type (ICD-10 - G47.00) Informed consent obtained: YES, we discussed the diagnosis/diagnos es, the treatment options, treatment(s) recommendations vs. no treatment. We discussed risks and benefits of treatment options, treatment recommendations vs. no treatment. Currently at low risk for self harm. Denies ongoing feelings of hopelessness. Denies ongoing suicidal ideation, intent or plan in session. Pharmacological management: Alternative medication plans were discussed with the patient and or guardian. All relevant and serious adverse effects were discussed. Standard precautions and potential benefits were discussed. Patient/Guardian consented to begin medication/ continue treatment plan. questions answered satisfactorily, agreeable to treatment plan Cont current treatment Tolerating meds well, compliant Call for problems Follow up 3 months Patient/Guardian will call sooner if symptoms worsen. Patient understands to go to the ER if needed if symptoms become severe. Crisis intervention plan was discussed and agreed upon. Patient/Guardian will call 911 in case of emergency. Emergency contact information was provided to the patient/guardian. 07/03/2024 Episodic mood disorder (ICD-10 - F39) Patient will continue current treatment plan. Patient verbally acknowledges understanding instructions including medication education and has no further questions comments or concerns at this time. . Follow in 3 Month . Recommended treatment for Bipolar disorder includes FDA approved and OFF label medications: second generation antipsychotics and mood stabilizers. Discussed life threatening side effect of Lamotrigine. Pt is to monitor for new skin rashes or sensation of a sunburn or itchiness or redness, mouth sores or sores in mucus membranes, and call provider immediately and or go to ER, and stop the medication. Second generation antipsychotic medications can cause headache, drowsiness, agitation, dizziness, nausea, or extrapyramidal symptoms such as tremors, muscle spasms, slowness of movement or jerking of muscles. . Stable . The patient verbalizes understanding with all questions answered thoroughly and is in agreement with treatment plan. . Continue current treatment. Call for problems . GOALS: . Maintain medication regimen . _Improve mood stability . _Improve anxiety control . _Improve social and interpersonal functioning . Patient/Guardian will call sooner if symptoms worsen. Patient understands to go to ER if needed if symptoms become severe. . Crisis Intervention plan was discussed and agreed upon. Patient/Guardian will call 911 in case of emergency. Emergency contact information was provided to the patient/guardian. . Pharmacological management: . Alternative medication plans were discussed with the patient/guardian. All relevant side effects and potential adverse effects were discussed with the patient/guardian. Standard cautions and potential benefits were discussed. Patient/Guardian consented to the start/continuatio n of the treatment. 07/24/2024 Episodic mood disorder (ICD-10 - F39) 07/30/2024 Attention deficit hyperactivity disorder (ADHD), combined type (ICD-10 - F90.2) 08/28/2024 Attention deficit hyperactivity disorder (ADHD), combined type (ICD-10 - F90.2) 08/29/2024 Insomnia, unspecified type (ICD-10 - G47.00) Increase mirtazapine to 30 mg for increased sleep hygiene. 08/29/2024 Episodic mood disorder (ICD-10 - F39) [facility] the patient to trial for 30 days with follow-up in 1 month to discuss and evaluate. Patient will continue current treatment plan. Patient verbally acknowledges understanding instructions including medication education and has no further questions comments or concerns at this time. . Follow in 1 Month . Recommended treatment for Bipolar disorder includes FDA approved and OFF label medications: second generation antipsychotics and mood stabilizers. Discussed life threatening side effect of Lamotrigine. Pt is to monitor for new skin rashes or sensation of a sunburn or itchiness or redness, mouth sores or sores in mucus membranes, and call provider immediately and or go to ER, and stop the medication. Second generation antipsychotic medications can cause headache, drowsiness, agitation, dizziness, nausea, or extrapyramidal symptoms such as tremors, muscle spasms, slowness of movement or jerking of muscles. . Stable . The patient verbalizes understanding with all questions answered thoroughly and is in agreement with treatment plan. . Continue current treatment. Call for problems . GOALS: . Maintain medication regimen . _Improve mood stability . _Improve anxiety control . _Improve social and interpersonal functioning . Patient/Guardian will call sooner if symptoms worsen. Patient understands to go to ER if needed if symptoms become severe. . Crisis Intervention plan was discussed and agreed upon. Patient/Guardian will call 911 in case of emergency. Emergency contact information was provided to the patient/guardian. . Pharmacological management: . Alternative medication plans were discussed with the patient/guardian. All relevant side effects and potential adverse effects were discussed with the patient/guardian. Standard cautions and potential benefits were discussed. Patient/Guardian consented to the start/continuatio n of the treatment. 08/29/2024 Attention deficit hyperactivity disorder (ADHD), combined type (ICD-10 - F90.2) Patient will trial Adderall 10 mg in the afternoon and follow up in 30 days to discuss and evaluate. [place]AR[place] reviewed . Informed consent obtained: YES, we discussed the diagnosis/diagnose s, the treatment options, treatment(s) recommended vs. no treatment. We discussed risks and benefits of treatment options, treatment recommendations vs. no treatment. . . Patient continues to meet criteria for attention deficit hyperactivity disorder. Pt does not meet criteria for bipolar disorder, major depressive disorder, or other persistent mood disorders. Will continue to monitor the patient for presentation of new symptoms or behaviors. . . FDA approved stimulant medication for this age group. Discussed/Denies adverse effects from medication including HTN, tachycardia, insomnia, irritability, headache, or decreased appetite. . . Discussed lifestyle/diet changes to help improve BMI. Recommend increasing activity, reducing portion sizes, limiting carbohydrates, increasing protein as appropriate. Discussed referral to property assessment monitor if problem persists. . . Continue current treatment plan, tolerating meds well, compliant; call for problems . GOALS: Maintain medication regimen Maintain mood stability Maintain anxiety stability Maintain social and interpersonal functioning Maintain attention and hyperactivity . . Currently at low risk for self harm. Denies ongoing feelings of hopelessness. Denies ongoing suicidal ideation, intent or plan in session. . 07/03/2024 Attention deficit hyperactivity disorder (ADHD), combined type (ICD-10 - F90.2) OARRS reviewed . Informed consent obtained: YES, we discussed the diagnosis/diagnos es, the treatment options, treatment(s) recommended vs. no treatment. We discussed risks and benefits of treatment options, treatment recommendations vs. no treatment. . . Patient continues to meet criteria for attention deficit hyperactivity disorder. Pt does not meet criteria for bipolar disorder, major depressive disorder, or other persistent mood disorders. Will continue to monitor the patient for presentation of new symptoms or behaviors. . . FDA approved stimulant medication for this age group. Discussed/Denies adverse effects from medication including HTN, tachycardia, insomnia, irritability, headache, or decreased appetite. . . Discussed lifestyle/diet changes to help improve BMI. Recommend increasing activity, reducing portion sizes, limiting carbohydrates, increasing protein as appropriate. Discussed referral to property assessment monitor if problem persists. . . Continue current treatment plan, tolerating meds well, compliant; call for problems . GOALS: Maintain medication regimen Maintain mood stability Maintain anxiety stability Maintain social and interpersonal functioning Maintain attention and hyperactivity . . Currently at low risk for self harm. Denies ongoing feelings of hopelessness. Denies ongoing suicidal ideation, intent or plan in session. . 05/10/2024 Attention deficit hyperactivity disorder (ADHD), combined type (ICD-10 - F90.2) 11/21/2024 Insomnia, unspecified type (ICD-10 - G47.00) Informed consent obtained: YES, we discussed the diagnosis/diagnos es, the treatment options, treatment(s) recommendations vs. no treatment. We discussed risks and benefits of treatment options, treatment recommendations vs. no treatment. Currently at low risk for self harm. Denies ongoing feelings of hopelessness. Denies ongoing suicidal ideation, intent or plan in session. Pharmacological management: Alternative medication plans were discussed with the patient and or guardian. All relevant and serious adverse effects were discussed. Standard precautions and potential benefits were discussed. Patient/Guardian consented to begin medication/ continue treatment plan. questions answered satisfactorily, agreeable to treatment plan Cont current treatment Tolerating meds well, compliant Call for problems Follow up 3 months Patient/Guardian will call sooner if symptoms worsen. Patient understands to go to the ER if needed if symptoms become severe. Crisis intervention plan was discussed and agreed upon. Patient/Guardian will call 911 in case of emergency. Emergency contact information was provided to the patient/guardian. 01/16/2025 Attention deficit hyperactivity disorder (ADHD), combined type (ICD-10 - F90.2) . FDA approved stimulant medication for this age group. Discussed/Denies adverse effects from medication including HTN, tachycardia, insomnia, irritability, headache, or decreased appetite. . All relevant and serious adverse effects were discussed. Standard precautions and potential benefits were discussed. Patient/Guardian consented to begin medication/ continue treatment plan . Patient continues to meet criteria for attention deficit hyperactivity disorder. Pt does not meet criteria for bipolar disorder, major depressive disorder, or other persistent mood disorders. Will continue to monitor the patient for presentation of new symptoms or behaviors. . Continue current treatment; tolerating meds well, compliant; call for problems; questions answered satisfactorily, agreeable to treatment plan . GOALS: . Maintain medication regimen _Improve social and interpersonal functioning _Improve attention and or hyperactivity . follow up 3 months . Crisis Intervention plan was discussed and agreed upon. Patient/Guardian will call 911 in case of emergency. Emergency contact information was provided to the patient/guardian. . OARRS reviewed . Plan Of Treatment No Information Insurance Providers Payer Name Payer Address Payer Phone Subscriber Number Group Number Insured Name Patient Relationship to Insured Coverage Start Date Coverage End Date [employer] Primary [address] [place] [address] [id number] CAMERON MALLOY Self - patient is the insured 4 5 [employer] [place] [employer] [address] [place] [address] [id number] CAMERON MALLOY Self - patient is the insured 4 4 [facility] [address] [place] [address] [id number] CAMERON MALLOY Self - patient is the insured 4 4 Medical (General) History Medical History History ICD Code TMJ Surgical History Surgery Date(Month/Year) [place] Hospitalization History Reason Date(Month/Year) psych x6 overdose/poisoning from his meds
--- OUTSIDE RECORDS SUMMARY | 2025-03-28 11:52 | XMS_ITS | Clinical Summary ---
Author Organization [facility] Address [id number] [address] 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 Active cariprazine (VRAYLAR) 3 mg capsule Take 1 capsule (3 mg total) by mouth in the morning. Active LORazepam (ATIVAN) 1 mg tabletIndicatio ns:Panic attack,History of panic attacks,Anxiety Take 1 tablet (1 mg total) by mouth every 12 (twelve) hours as needed (for severe anxiety/alondra c attack) for up to 5 doses. 5 tablet 10/28/2023 Active Social History Tobacco Use Types Packs/Day Years Used Date Smoking Tobacco: Every Day Vaping/E-cigarettes Smokeless Tobacco: Never Tobacco Cessation:Ready to Q uit: Not Asked; Counseling Given: Not Answered Alcohol Use Standard Drinks/Week Comments Not Currently 0 (1 standard drink = 0.6 oz pur e alcohol) Hunger Screening Answer Date Recorded Within the past 12 months we worried whether our food would run out before we got money to buy more. Never True 10/28/2023 Within the past 12 months th e food we bought just didn't last and we didn't have money to get more. Never True 10/28/2023 Sex and Gender Information Value Date Recorded Sex Assigned at Not on file Legal Sex Male 1:20 PM EDT Gender Identity Not on file Sexual Orientation Not on file Last Filed Vital Signs Vital Sign Reading Time Taken Comments Blood Pressure 146/90 10/28/2023 1:30 PM EDT Pulse 106 10/28/2023 1:30 PM EDT Temperature 36.3 C (97.3 F) 10/28/2023 1:30 PM EDT Respiratory Rate 20 10/28/2023 1:30 PM EDT Oxygen Saturation 100% 10/28/2023 1:30 PM EDT Inhaled Oxygen Concentration - - Weight 88.5 kg (195 lb) 10/28/2023 1:32 PM EDT Height 198.1 cm (6' 6 ) 10/28/2023 1:32 PM EDT Body Mass Index 22.53 10/28/2023 1:32 PM EDT Plan of Treatment Not on file Medical Devices Not on file Insurance [facility]
[2025-03-28 12:45] LABS: Alanine Aminotransferase 26 U/L (16-63); Albumin Globulin Ratio 1.2; Albumin Level 4.1 g/dL (3.4-5.0); Alkaline Phosphatase 103 U/L (46-116); Anion Gap 15.0; Aspartate Amino Transferase 16 U/L (15-37); Blood Urea Nitrogen 16.0 mg/dL (7.0-18.0); Calcium 9.0 mg/dL (8.5-10.1); Carbon Dioxide 26.6 mmol/L (21.0-32.0); Chloride 101 mmol/L (98-107); Estimated GFR (African America >60 (>=60 mL/min/1.73m^2); Estimated GFR (Non-African Ame >60 (>=60 mL/min/1.73m^2); Globulin 3.4 g/dL; Glucose 128 mg/dL (74-106); Potassium 3.6 mmol/L (3.5-5.1); Sodium 139 mmol/L (136-145); Total Protein 7.5 g/dL (6.4-8.2)
[2025-03-28 13:47] LABS: Hematocrit 45.7 % (42.0-54.0); Hemoglobin 15.4 g/dL (14.0-18.0); Immature Granulocytes Abs Auto 0.01 10^3/uL (0.00-0.03); Immature Granulocytes Pct Auto 0.2 % (0.0-0.5); Iron 45.0 ug/dL (65.0-175.0); Lymphocytes Absolute Auto 1.7 10^3/uL (1.2-3.8); Mean Corpuscular HGB Conc 33.7 g/dL (29.9-35.2); Mean Corpuscular Hemoglobin 29.2 pg (25.9-34.0); Mean Corpuscular Volume 86.6 fL (80.0-94.0); Percent Iron Saturation 13.2 %; Platelet Count 181 10^3/uL (150-450); Red Blood Count 5.28 10^6/uL (4.70-6.10); Total Iron Binding Capacity 340.0 ug/dL (250.0-450.0); White Blood Count 6.5 10^3/uL (4.0-11.0)
--- OUTSIDE RECORDS SUMMARY | 2025-03-28 18:41 | XMS_ITS | CCD ---
Author Organization [facility] Care Team Providers Care Scheduling Clerk Name Role Phone Jaxson Starks Primary Care [...] Unavailable Unavailable PCP, Other Primary Care Physician [phone] PCP, OTHER Primary Care Unavailable Dr. CLARI OWEN Attending Unavailable PCP, OTHER Primary Care Unavailable Dr. Deo Hamm Attending Unavailable NO FAMILY, PHYSICIAN Primary Care Provider Unava ilable Laury, [facility]- Margarita Valera Emergency Provider OSEI Jarrett Attending Provider ALECIA Roach Emergency Provider [phone] JULIA Ornelas Emergency Provider [phone] DO Saqib Brantley Admit Provider DO Saqib Brantley Attending Provider [phone] MD Arnel Carlisle Other Provider [phone] ALECIA Shahid Other Provider [phone] MD Chandler Flood Other Provider MD Nicholas Frias Other Provider AGUILA Castro Other Provider Unavailable DO Ginger Cid Other Provider MD Regine Bingham Other Provider MD Kayli Iglesia Norton Other Provider MD Kellee Lambert Other Provider MD Ernie Jimenez Other Provider ALECIA Ramos Other Provider MD Elizabeth Serrato Other Provider MD Arnel Ibanez Najesteph Other Provider MD Lizette Vega Other Provider Shamika [facility] Sherrie Jolly Other Provider MD Soledad Perez [...] Attending Provider ALECIA Dorsey Primary Care Provider [phone] MD Nazario Shaw Jr Emergency Provider Unavailable Primary Care Provider UnavailNayla Brooks Primary Care Unavailable Nazario Shaw Jr Attending [...] Class(es) Dates Sig (Normalized) Sig (Original) cariprazine 4.5 mg oral capsule (8 sources) Atypical Antipsychotic Start: 07-17-2024 Cariprazine (Vraylar) 4.5 mg capsule Active MG PO July 17, 2024 12:00am Start: 09-22-2023 End: 07-17-2024 take 1 capsule by mouth once daily Cariprazine (Vraylar) 3 mg capsule Discontinued 3 MG PO Daily September 21, 2023 11:00pm July 17, 2024 3:05pm cephalexin 500 mg oral capsule (2 sources) Cephalosporin Antibacterial Start: 02-06-2023 take 1 capsule by mouth every twelve hours Cephalexin 500 MG 1 capsule Orally twice a day for 10 Jan, Active diphenhydrAMINE hydrochloride 50 mg oral tablet (3 sources) Histamine-1 Receptor Antagonist Start: 03-20-2024 take 1 tablet by mouth once daily at bedtime as needed Diphenhydramine Hcl (Benadryl Allergy) 50 mg tablet Active 50 MG PO Daily at bedtime as needed March 19, 2024 11:00pm lamoTRIgine 200 mg oral tablet (4 sources) Mood Stabilizer, Anti-epileptic Agent Start: 07-17-2024 Lamotrigine 200 mg tablet Active MG PO July 17, 2024 12:00am Start: 03-20-2024 End: 07-17-2024 take 1 tablet by mouth once daily Lamotrigine (Lamictal) 150 mg tablet Discontinued 150 MG PO Daily March 19, 2024 11:00pm July 17, 2024 3:06pm lisdexamfetamine dimesylate 60 mg oral capsule (1 source) Central Nervous System Stimulant Start: 07-17-2024 Lisdexamfetamine 60 mg capsule Active MG PO July 17, 2024 12:00am LORazepam 0.5 mg oral tablet (13 sources) Benzodiazepine Start: 07-17-2024 Lorazepam 0.5 mg tablet Active MG PO July 17, 2024 12:00am Start: 10-31-2023 End: 03-20-2024 take 1 tablet by mouth once daily as needed for anxiety Lorazepam 1 mg tablet Discontinued 1 MG PO Daily as needed for anxiety November 09, 2023 9:55am March 20, 2024 11:05am melatonin 10 mg oral tablet (6 sources) Start: 03-20-2024 take 1 tablet by mouth once daily at bedtime as needed Melatonin 10 mg tablet Active 10 MG PO Daily at bedtime as needed March 19, 2024 11:00pm Start: 04-27-2021 Melatonin TR 1 0 MG Oral Tablet Extended Release Quantity: 28 Refills: 0 Ordered: 27-Apr-2021 DO Start : 27-Apr-2021 Active methylPREDNISolone 4 mg oral tablet (9 sources) Corticosteroid Start: 02-13-2023 methylPREDNISolone 4 MG as directed Orally take as directed for 6 days Jan, Active mirtazapine 15 mg oral tablet (1 source) Start: 07-17-2024 Mirtazapine 15 mg tablet Active MG PO July 17, 2024 12:00am Multivitamin (Daily Multi-Vitamin) tablet (3 sources) Start: 03-20-2024 take 1 tablet by mouth once daily Multivitamin (Daily Multi-Vitamin) tablet Active 1 TAB PO Daily March 19, 2024 11:00pm Start: 03-20-2024 take 1 tablet by brenna th once daily Multivitamin (Daily Multi-Vitamin) tablet Active 1 TAB PO Daily March 20, 2024 12:00am nystatin [id number] unt/ml oral suspension (2 sources) Polyene Antifungal Start: 02-10-2023 take 4 mL by mouth four times daily Nystatin [id number] UNIT/ML 4 ml swish and swallow Mouth/Throat Four times a day for 10 days Jan, Active ondansetron 4 mg disintegrating oral tablet (1 source) Serotonin-3 Receptor Antagonist Start: 07-17-2024 take 1 tablet by mouth every eight hours as needed for nausea and vomiting Ondansetron 4 mg tablet,disintegrat ing Active 4 MG PO Every 8 hours as needed for nausea and vomiting 15 July 17, 2024 12:00am tiZANidine 6 mg oral capsule (4 sources) Central alpha-2 Adrenergic Agonist Start: 06-11-2024 Tizanidine 6 mg capsule Active 0 .ROUTE .COMPLEX June 11, 2024 10:06am TAKE 1 CAPSULE DAILY AT BEDTIME FOR 21 DAYS Start: 05-23-2024 End: 06-11-2024 take 1 capsule by mouth once daily at bedtime Tizanidine (Zanaflex) 6 mg capsule Discontinued 6 MG PO Daily at bedtime May 23, 2024 12:00am June 11, 2024 10:06am Start: 05-01-2024 End: 05-23-2024 take 1 tablet by mouth once daily at bedtime as needed Tizanidine 4 mg tablet Discontinued 4 MG PO Daily at bedtime as needed for muscle spasticity 14 May 10, 2024 1:17pm May 23, 2024 6:04pm 24 hr venlafaxine 75 mg extended release oral tablet (20 sources) Serotonin and Norepinephrine Reuptake Inhibitor Start: 03-20-2024 take 1 capsule by mouth once daily Venlafaxine 75 mg capsule,extended release 24hr Active 75 MG PO Daily March 19, 2024 11:00pm Start: 03-20-2024 take 75 mg by mouth once daily Venlafaxine Active 75 MG PO Daily March 19, 2024 11:00pm Start: 11-17-2023 End: 03-20-2024 take 1 capsule by mouth once daily Venlafaxine 37.5 mg capsule,extended release 24hr Discontinued 0 .ROUTE .COMPLEX November 17, 2023 12:58pm March 20, 2024 11:05am Take 1 capsule by mouth once daily Start: 11-17-2023 End: 03-20-2024 take 1 capsule by mouth once daily Venlafaxine Discontinued 0 .ROUTE .COMPLEX November 17, 2023 12:58pm March 20, 2024 11:05am Take 1 capsule by mouth once daily Start: 11-17-2023 End: 03-20-2024 take 1 capsule by mouth once daily Venlafaxine Discontinued 0 .ROUTE .COMPLEX 90 November 17, 2023 1:58pm March 20, 2024 12:05pm Take 1 capsule by mouth once daily Start: 10-06-2023 End: 11-17-2023 take 1 capsule by mouth once daily Venlafaxine 37.5 mg capsule,extended release 24hr Discontinued 37.5 MG PO Daily October 05, [...] 3:03pm Start: 11-03-2021 take 1 capsule by [facility] every twenty-four hours Venlafaxine HCl ER 150 MG Oral Capsule Extended Release 24 Hour Quantity: 30 Refills: 0 Ordered: 03-Nov-2021 DO Start : 03-Nov-2021 Active Effexor Active Completed/Discontinued Medications Medication Drug Class(es) Dates Sig (Normalized) Sig (Original) acetaminophen 325 mg oral tablet (11 sources) Start: 10-22-2022 End: 10-23-2022 Acetaminophen (Tylenol) 325 mg Tablet Discontinued 325 MG PO Q65H as needed for Pain October 21, 2022 11:00pm October 23, 2022 11:56am calcium polycarbophil 625 mg oral tablet (3 sources) Start: 04-15-2021 Fiber-Lax 625 MG Oral Tablet Quantity: 56 Refills: 0 Ordered: 15-Apr-2021 DO Start : 15-Apr-2021 Active cyclobenzaprine hydrochloride 10 mg oral tablet (19 sources) Muscle Relaxant Start: 02-27-2023 End: 03-20-2024 take 1 tablet by mouth three times daily as needed for muscle spasms Cyclobenzaprine 10 mg tablet Discontinued 10 MG PO Three times daily as needed for muscle spasm February 26, 2023 11:00pm March 20, 2024 [...] 8 hours for 5 days Jan, Active Docusate (9 sources) Start: 03-20-2024 End: 07-17-2024 docusate sodium (Stool Softe ner) Discontinued PO as needed March 19, 2024 11:00pm July 17, 2024 3:06pm Start: 03-20-2024 docusate sodiu m (Stool Softener) Active PO March 19, 2024 11:00pm Start: 03-20-2024 docusate sodiu m (Stool Softener) Active PO March 20, 2024 12:00am Start: 11-05-2021 take 2 tablets by mo [facility] every six hours as needed for constipation, [...] Ordered: 17-Apr-2021 DO Start : 17-Apr-2021 Active DULoxetine 20 mg delayed release oral capsule (20 sources) Serotonin and Norepinephrine Reuptake Inhibitor Start: 10-21-2022 End: 10-26-2022 take 1 capsule by mouth once daily Duloxetine 20 mg capsule,delayed release(DR/EC) Discontinued 20 MG PO Daily October 22, 2022 11:00pm October 26, 2022 10:22am hydrOXYzine pamoate 50 mg oral capsule (3 sources) Antihistamine Start: 11-03-2021 hydrOXYzine Pamoate 50 MG Oral Capsule Quantity: 60 Refills: 0 Ordered: 03-Nov-2021 DO Start : 03-Nov-2021 Active ibuprofen 800 mg oral tablet (9 sources) Nonsteroidal Anti-inflammatory Drug Start: 02-27-2023 End: 09-21-2023 take 1 tablet by mouth every eight hours as needed for pain Ibuprofen 800 mg tablet Discontinued 800 MG PO Q8H as needed for pain February 27, 2023 10:14am September 21, 2023 2:28pm ketorolac tromethamine 10 mg oral tablet (20 sources) Nonsteroidal Anti-inflammatory Drug, Cyclooxygenase Inhibitor Start: 09-21-2023 End: 03-20-2024 take 1 tablet by mouth twice daily as needed Ketorolac 10 mg tablet Discontinued 10 MG PO Twice daily as needed September 20, 2023 11:00pm March 20, 2024 11:05am maximum total duration of 5 days from all oral, intranasal, or parenteral formulations Start: 03-16-2023 take 1 tablet by brenna th twice daily as needed Toradol 10mg 1 tab prn orally bid for 14 days Feb, Active Start: 02-27-2023 End: 09-21-2023 take 1 tablet by mouth three times daily as needed for pain Ketorolac 10 mg tablet Discontinued 10 MG PO Three times daily as needed for pain 10 February 26, 2023 11:00pm September 21, 2023 2:28pm lurasidone hydrochloride 40 mg oral tablet (20 sources) Atypical Antipsychotic Start: 09-21-2023 End: 09-22-2023 take 1 tablet by mouth once daily Lurasidone 40 mg tablet Discontinued 40 MG PO Daily September 20, 2023 11:00pm September 22, 2023 1:31pm Start: 03-07-2023 Latuda Oral, D aily, Refills(s) 0 Start Date: 03/07/23 Status: Ordered Start: 02-27-2023 End: 09-21-2023 Lurasidone 20 mg tablet Disc ontinued MG TABLET February 26, 2023 11:00pm September 21, 2023 [...] 05-Nov-2021 Active naproxen 500 mg oral tablet (20 sources) Nonsteroidal Anti-inflammatory Drug Start: 10-22-2022 End: 10-26-2022 take 1 tablet by mouth twice daily at mealtime Naproxen 500 mg tablet Discontinued 500 MG PO Twice daily with meals October 22, 2022 11:00pm October 26, 2022 10:22am 24 hr nicotine 0.875 mg/hr transdermal system (10 sources) Cholinergic Nicotinic Agonist Start: 10-26-2022 End: 02-27-2023 apply 1 dose transdermal route every twenty-four hours Nicotine 21 mg/24 hr Patch 24 Hour Discontinued 1 EACH TRANSDERML Daily October 25, 2022 11:00pm February 27, 2023 10:04am Start: 10-26-2022 End: 02-27-2023 Nicotine Discontinued 1 EACH TRANSDERML Daily October 25, 2022 11:00pm February 27, 2023 10:04am ofloxacin 3 mg/ml otic solution (12 sources) Quinolone Antimicrobial Start: 10-13-2022 End: 10-21-2022 Ofloxacin 0.3 % drops Discontinued 5 DROPS EAR-RIGHT Twice daily 04 02October 12, 2022 11:00pm October 21, 2022 10:01pm Start: 10-13-2022 End: 10-21-2022 Ofloxacin Discontinued 5 HILARIO PS EAR-RIGHT Twice daily 04 02October 12, 2022 11:00pm October 21, 2022 10:01pm predniSONE 20 mg oral tablet (5 sources) Start: 05-01-2024 End: 07-17-2024 Prednisone 20 mg tablet Discontinued 0 PO Daily 14 03May 10, 2024 1:17pm July 17, 2024 2:59pm 3 tabs x 3 days, 2 tabs x 3 days, 1 tab x 3 days Start: 03-07-2023 End: 03-12-2023 take 2 tablets by mouth once daily predniSONE 20 mg Tab 40 mg = 2 tab(s), Oral, Daily, X 5 day(s), # 10 tab(s), Refills(s) 0, Pharmacy: [facility] 1988, 198, cm, 03/07/23 16:53:00 EDT, Height/Length Dosing, 87.2, kg, 03/07/23 16:53:00 EDT, Weight Dosing Start Date: 03/07/23 Stop Date: 03/12/23 Status: Ordered Start: 02-06-2023 take 1 tablet by brenna every twelve hours prednisone 20 MG 1 tablet Orally BID for 5 Jan, Active psyllium husk (Daily Fiber) (3 sources) Start: 03-20-2024 End: 07-17-2024 psyllium husk (Daily Fiber) Discontinued PO March 19, 2024 11:00pm July 17, 2024 3:04pm Start: 03-20-2024 psyllium husk (Daily Fiber) Active PO March 19, 2024 11:00pm Start: 03-20-2024 psyllium husk (Daily Fiber) Active PO March 20, 2024 12:00am traZODone hydrochloride 50 mg oral tablet (10 sources) Serotonin Reuptake Inhibitor Start: 10-26-2022 End: 02-27-2023 take 1 tablet by mouth once daily at bedtime as needed Trazodone 50 mg Tablet Discontinued 50 MG PO Daily at bedtime as needed for Insomnia October 25, 2022 11:00pm February 27, 2023 10:04am Problems Active Problems Problem Classification Problem Date Documented Da te Episodic/Chronic Abdominal pain (12 sources) Abdominal pain; Translations: [Bilateral pain of inguinal region] Onset: 3 Resolved: 6 02-26-2014 Episodic Anxiety disorders (20 sources) Anxiety disorder; Translations: [Anxiety disorder, unspecified] Onset: 1 04-10-2020 Chronic Complications of surgical procedures or medical care (14 sources) Drug therapy finding; Translations: [Unspecified adverse effect of drug or medicament, initial encounter] 09-27-2022 Episodic Comment on above: Problem List clean-u p per request of Phys. EHR Cmte Conditions associated with dizziness or vertigo (13 sources) Dizziness; Translations: [Dizziness and giddiness] 09-27-2022 Episodic Comment on above: Problem List clean-u p per request of Phys. EHR Cmte Disorders of teeth and jaw (20 sources) Arthralgia of temporomandibular joint; Translations: [Arthralgia of temporomandibular joint, unspecified side] 02-27-2023 Episodic Esophageal disorders (3 sources) Gastroesophageal reflux disease; Translations: [Gastro-esophageal reflux disease without esophagitis] 03-20-2024 Chronic Gastrointestinal hemorrhage (4 sources) Melena; Translations: [Rectal hemorrhage] Onset: 3 03-20-2024 Episodic Immunizations and screening for infectious disease (1 source) Contact with or exposure to other viral diseases; Translations: [Contact with or suspected exposure to severe acute respiratory syndrome coronavirus 2 (SARS-CoV-2)] 07-17-2024 Episodic Lymphadenitis (1 source) Enlarged lymph nodes, unspecified Episodic Mood disorders (20 sources) Major depressive disorder; Translations: [Major depressive disorder, recurrent, mild] Onset: 1 04-10-2020 Chronic Comment on above: Problem List clean-u p per request of Phys. EHR Cmte Nausea and vomiting (1 source) Nausea; Translations: [Nausea] Onset: 3 Episodic Other connective tissue disease (1 source) Musculoskeletal symptom; Translations: [Other symptoms and signs involving the musculoskeletal system] Onset: 3 Episodic Other ear and sense organ disorders (12 sources) Otitis externa; Translations: [Unspecified otitis externa, unspecified ear] 10-13-2022 Chronic Comment on above: Problem List clean-u p per request of Phys. EHR Cmte Other gastrointestinal disorders (3 sources) Chronic constipation; Translations: [Constipation, unspecified] Episodic Other gastrointestinal disorders (1 source) Other constipation; Translations: [Other constipation] Onset: 3 Episodic Other hereditary and degenerative nervous system conditions (5 sources) Restless legs; Translations: [Restless legs syndrome] 10-06-2023 Chronic Other hereditary and degenerative nervous system conditions (2 sources) Restless legs syndrome; Translations: [Restless legs syndrome (RLS)] 10-06-2023 Chronic Other nutritional; endocrine; and metabolic disorders (2 sources) Excessive thirst; Translations: [Polydipsia] Episodic Other nutritional; endocrine; and metabolic disorders (1 source) Polydipsia Episodic Other screening for suspected conditions (not mental disorders or infectious disease) (12 sources) Electrocardiogram abnormal; Translations: [Abnormal electrocardiogram [ECG] [EKG]] 10-23-2022 Episodic Comment on above: Problem List clean-u p per request of Phys. EHR Cmte Other upper respiratory disease (1 source) Other specified disorders of nose and nasal sinuses Episodic Other upper respiratory infections (5 sources) Sore throat symptom; Translations: [Acute pharyngitis] Resolved: 6 Episodic Poisoning by other medications and drugs (20 sources) Intentional drug overdose; Translations: [Intentional Drug Overdose] 07-02-2019 Episodic Comment on above: Problem List clean-u p per request of Phys. EHR Cmte Poisoning by psychotropic agents (3 sources) Benzodiazepine overdose; Translations: [Benzodiazepine Overdose] 03-26-2020 Episodic Residual codes; unclassified (3 sources) Insomnia; Translations: [Insomnia, unspecified] 03-20-2024 Episodic Residual codes; unclassified (2 sources) Insomnia, unspecified; Translations: [Insomnia, unspecified] 03-20-2024 Episodic Screening and history of mental health and substance abuse codes (1 source) Personal history of other mental and behavioral disorders; Translations: [Personal history of other mental and behavioral disorders] Onset: 4 Episodic Spondylosis; intervertebral disc disorders; other back problems (2 sources) Backache; Translations: [Dorsalgia, unspecified] 05-01-2024 Episodic Sprains and strains (1 source) Injury of muscle and tendon at neck level; Translations: [Strain of muscle, fascia and tendon at neck level, initial encounter] Onset: 3 Episodic Substance-related disorders (20 sources) Polysubstance abuse ; 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 2-2.0 [facility] Eosinophils/100 WBC Auto (Bl d)on 05-14-2024 Eosinophils/100 WBC (Bld) Automated eosinophil % 0.9-7.0 [facility] Erythrocyte distribution wid th Auto (RBC) [Ratio]on 05-14-2024 Erythrocyte distribution width (RBC) [Ratio] Erythrocyte distribution width [Ratio] by Automated count 11.0-15.0 [facility] Estimated glomerular filtrat ion rate (GFR) non- Americanon 05-14-2024 GFR/1.73 sq M.predicted among non-blacks MDRD (S/P/Bld) [Vol rate/Area] Estimated glomerular filtration rate (GFR) non- >=60 mL/min/1.73m 2 [facility] Hematocrit Auto (Bld) [Volum e fraction]on 05-14-2024 Hematocrit (Bld) [Volume fraction] Hematocrit [Volume Fraction] of Blood by Automated count Low 42.0-54.0 [facility] Hemoglobin [Mass/volume] in Bloodon 05-14-2024 Hemoglobin (Bld) [Mass/Vol] Hemoglobin [Mass/volume] in Blood 14.0-18.0 [facility] Laboratory - Chemistry and C hemistry - challengeon 05-14-2024 Calcium [Mass/Vol] 8.9 mg/dL 8.5-10.1 [facility] Chloride [Moles/Vol] 106 mmol/L 98-[address] [facility] CO2 [Moles/Vol] 25.9 mmol/L 21.0-32.[address] [facility] Creatinine [Mass/Vol] 1.19 mg/dL 0.70-1.30 [facility] GFR/1.73 sq M.predicted MDRD (S/P/Bld) [Vol rate/Area] mL/min/{1.73_m2} >=60 mL/min/1.73m 2 [facility] Glucose [Mass/Vol] 147 mg/dL High 74-106 [facility] Potassium [Moles/Vol] 3.5 mmol/L 3.5-5.1 [facility] Sodium [Moles/Vol] 141 mmol/L 136-145 [facility] Urea nitrogen [Mass/Vol] 15.0 mg/dL 7.0-18.0 [facility] Urea nitrogen/Creatinine [Mass ratio] 12.6 mg/mg [facility] Laboratory - Hematology and Cell countson 05-14-2024 Immature granulocytes/100 WBC (Bld) 0.1 % 0.0-0.5 [facility] Leukocytes [#/volume] correc jayleen for nucleated erythrocytes in Blood by Automated counon 05-14-2024 WBC corrected for nucl RBC Auto (Bld) [#/Vol] Leukocytes [#/volume] corrected for nucleated erythrocytes in Blood by Automated coun 4.0-11.0 [facility] Lymphocytes Auto (Bld) [#/Vo l]on 05-14-2024 Lymphocytes (Bld) [#/Vol] Lymphocytes [#/volume] in Blood by Automated count 1.2-3.8 [facility] Lymphocytes/100 WBC Auto (Bl d)on 05-14-2024 Lymphocytes/100 WBC (Bld) Lymphocytes/100 leukocytes in Blood by Automated count 20.5-60.0 [facility] MCH Auto (RBC) [Entitic mass ]on 05-14-2024 MCH (RBC) [Entitic mass] MCH [Entitic mass] by Automated count 25.9-34.0 [facility] MCHC Auto (RBC) [Mass/Vol]on 05-14-2024 MCHC (RBC) [Mass/Vol] MCHC [Mass/volume] by Automated count 29.9-35.2 [facility] MCV Auto (RBC) [Entitic vol] on 05-14-2024 MCV (RBC) [Entitic vol] MCV [Entitic vol ume] by Automated count 80.0-94.0 [facility] Monocytes Auto (Bld) [#/Vol] on 05-14-2024 Monocytes (Bld) [#/Vol] Automated blood monocyte count 0.3-0.8 [facility] Monocytes/100 WBC Auto (Bld) on 05-14-2024 Monocytes/100 WBC (Bld) Automated monocyte % 1. 7-12.0 [facility] Neutrophils Auto (Bld) [#/Vo l]on 05-14-2024 Neutrophils (Bld) [#/Vol] Neutrophils [#/volume] in Blood by Automated count 1.4-6.5 [facility] Neutrophils/100 WBC Auto (Bl d)on 05-14-2024 Neutrophils/100 WBC (Bld) Automated neutrophil % 43.0-75.0 [facility] No Panel Informationon 05-14 Troponin I High Sensitivity 10.3 pg/mL 4.0-76.1 [facility] Comment on above: CUT-OFF POINTS HAVE BEEN ESTABLISHED BASED ON THE FOURTHUNIVERSAL DEFINITION OF MYOCARDIAL INFARCTION. THE UPPERREFERENCE LIMIT (URL) OF TROPONIN, DEFINED THE 99THPERCENTILE OF cTnI DISTRIBUTION IN A REFERENCE POPULATION,HAS BEEN CONFIRMED THE DECISION THRESHOLD FOR MIDIAGNOSIS.99TH PERCENTILE = 76.2 PG/MLNOTE: HIGH-SENSITIVITY TROPONIN ASSAY IS NOT INTENDED TO BEUSED IN ISOLATION BUT SHOULD BE INTERPRETED IN CONJUNCTIONWITH OTHER DIAGNOSTIC AND CLINICAL INFORMATION. Eosinophils # (Auto) 0.4 10 3/uL 0.0-0.7 [facility] Immature Granulocyte # (Auto) 0.01 10 3/uL 0.00-0.03 [facility] Platelet mean volume Auto (B ld) [Entitic vol]on 05-14-2024 Platelet mean volume (Bld) [Entitic vol] Platelet mean volume [Entitic volume] in Blood by Automated count 9.5-13.5 [facility] Platelets Auto (Bld) [#/Vol] on 05-14-2024 Platelets (Bld) [#/Vol] Platelets [#/vol ume] in Blood by Automated count 150-450 [facility] RBC Auto (Bld) [#/Vol]on RBC (Bld) [#/Vol] Erythrocytes [#/volume] in Blood by Automated count 4.70-6.10 [facility] Serum or plasma anion gap de terminationon 05-14-2024 Anion gap [Moles/Vol] Serum or plasma anion gap determination [facility] Basophils Auto (Bld) [#/Vol] on 01-17-2024 Basophils (Bld) [#/Vol] 0.0 10 3/uL 0.0-0.1 [facility] Basophils/100 WBC Auto (Bld) on 01-17-2024 Basophils/100 WBC (Bld) 0.4 % 0.2-2.[address] [facility] Eosinophils/100 WBC Auto (Bl d)on 01-17-2024 Eosinophils/100 WBC (Bld) 1.8 % 0.9-7.0 [facility] Erythrocyte distribution wid th Auto (RBC) [Ratio]on 01-17-2024 Erythrocyte distribution width (RBC) [Ratio] 12.2 % 11.0-15.0 [facility] Estimated glomerular filtrat ion rate (GFR) non- Americanon 01-17-2024 GFR/1.73 sq M.predicted among non-blacks MDRD (S/P/Bld) [Vol rate/Area] mL/min/{1.73_m2} >=60 [facility] Globulin Calc (S) [Mass/Vol] on 01-17-2024 Globulin (S) [Mass/Vol] 3.4 g/dL [facility] Hematocrit Auto (Bld) [Volum e fraction]on 01-17-2024 Hematocrit (Bld) [Volume fraction] 49.3 % 42.0-54.0 [facility] Hemoglobin [Mass/volume] in Bloodon 01-17-2024 Hemoglobin (Bld) [Mass/Vol] 16.1 g/dL 14.0-18.0 [facility] Hemoglobin.gastrointestinal [Presence] in Stoolon 01-17-2024 Hemoglobin.gastrointest inal Ql (Stl) Positive Abnormal [facility] Laboratory - Chemistry and C hemistry - challengeon 01-17-2024 Albumin [Mass/Vol] 4.4 g/dL 3.4-5.0 [facility] ALP [Catalytic activity/Vol] 105 U/L 46-116 [facility] ALT [Catalytic activity/Vol] 87 U/L High 16-63 [facility] AST [Catalytic activity/Vol] 151 U/L High 15-37 [facility] Bilirubin [Mass/Vol] 0.5 mg/dL 0.2-1.[address] [facility] Calcium [Mass/Vol] 9.3 mg/dL 8.5-10.1 [facility] Chloride [Moles/Vol] 104 mmol/L 98-[address] [facility] CO2 [Moles/Vol] 31.2 mmol/L 21.0-32.[address] [facility] Creatinine [Mass/Vol] 1.23 mg/dL 0.70-1.30 [facility] GFR/1.73 sq M.predicted MDRD (S/P/Bld) [Vol rate/Area] mL/min/{1.73_m2} >=60 [facility] Glucose [Mass/Vol] 104 mg/dL 74-106 [facility] Potassium [Moles/Vol] 3.9 mmol/L 3.5-5.1 [facility] Protein [Mass/Vol] 7.8 g/dL 6.4-8.2 [facility] Sodium [Moles/Vol] 144 mmol/L 136-145 [facility] Urea nitrogen [Mass/Vol] 19.0 mg/dL High 7.0-18.0 [facility] Urea nitrogen/Creatinine [Mass ratio] 15.4 mg/mg [facility] Laboratory - Hematology and Cell countson 01-17-2024 Immature granulocytes/100 WBC (Bld) 0.4 % 0.0-0.5 [facility] Leukocytes [#/volume] correc jayleen for nucleated erythrocytes in Blood by Automated counon 01-17-2024 WBC corrected for nucl RBC Auto (Bld) [#/Vol] 5.7 10 3/uL 4.0-11.0 [facility] Lymphocytes Auto (Bld) [#/Vo l]on 01-17-2024 Lymphocytes (Bld) [#/Vol] 1.6 10 3/uL 1.2-3.8 [facility] Lymphocytes/100 WBC Auto (Bl d)on 01-17-2024 Lymphocytes/100 WBC (Bld) 28.0 % 20.5-60.0 [facility] MCH Auto (RBC) [Entitic mass ]on 01-17-2024 MCH (RBC) [Entitic mass] 29.4 pg 25.9-34.0 [facility] MCHC Auto (RBC) [Mass/Vol]on 01-17-2024 MCHC (RBC) [Mass/Vol] 32.7 g/dL 29.9-35.2 [facility] MCV Auto (RBC) [Entitic vol] on 01-17-2024 MCV (RBC) [Entitic vol] 90.1 fL 80.0-94.[address] [facility] Monocytes Auto (Bld) [#/Vol] on 01-17-2024 Monocytes (Bld) [#/Vol] 0.6 10 3/uL 0.3-0.8 [facility] Monocytes/100 WBC Auto (Bld) on 01-17-2024 Monocytes/100 WBC (Bld) 10.2 % 1.7-12.[address] [facility] Neutrophils Auto (Bld) [#/Vo l]on 01-17-2024 Neutrophils (Bld) [#/Vol] 3.4 10 3/uL 1.4-6.5 [facility] Neutrophils/100 WBC Auto (Bl d)on 01-17-2024 Neutrophils/100 WBC (Bld) 59.2 % 43.0-75.0 [facility] No Panel Informationon 01-16 Eosinophils # (Auto) 0.1 10 3/uL 0.0-0.7 [facility] Immature Granulocyte # (Auto) 0.02 10 3/uL 0.00-0.03 [facility] Platelet mean volume Auto (B ld) [Entitic vol]on 01-17-2024 Platelet mean volume (Bld) [Entitic vol] 10.7 fL 9.5-13.5 [facility] Platelets Auto (Bld) [#/Vol] on 01-17-2024 Platelets (Bld) [#/Vol] 207 10 3/uL 150-450 [facility] RBC Auto (Bld) [#/Vol]on RBC (Bld) [#/Vol] 5.47 10 6/uL 4.70-6.10 [facility] Serum or plasma albumin/glob ulin mass ratioon 01-17-2024 Albumin/Globulin [Mass ratio] 1.3 {ratio} [facility] Serum or plasma anion gap de terminationon 01-17-2024 Anion gap [Moles/Vol] 12.7 mmol/L Fi [facility] ECG 12 lead ECGon 11-14-2023 ECG 12 lead ECG [facility] [place] [address] Electrocardiograph Report Signed Patient: Cameron Teresa MR#: [id number] : 2005 Acct:[id number] Age/Sex: 18 / M ADM Date: 11/14/23 Loc: ER Room: Type: DEP ER Attending Dr: Ordering Provider: Nazario Shaw [...] axis Borderline ECG Confirmed by Sophie Crandall ([id number]) on 11/15/2023 4:41:42 PM Referred By: Electronically Signed By:Sophie Crandall Transcribed By: MUS Signed By Sophie Crandall MD 4 [id number] Normal [facility] XR chest 1V portableon 11-13 XR chest 1V portable [facility] [place] [address] XRay Report Signed Patient: Cameron Teresa MR#: [id number] : 2005 Acct:[id number] Age/Sex: 18 / M ADM Date: 11/14/23 Loc: ER Room: Type: DEP ER Attending Dr: Copies to: Nazario Shaw Jr, MD Ordering Provider: Nazario Shaw Jr, MD Date of Service: 11/14/23 XR/XR chest 1V portable: Overdose SINGLE VIEW CHEST CLINICAL HISTORY: Overdose. COMPARISON: None FINDINGS: Heart normal in size. Lungs are clear. No free air. XR/XR chest 1V portable IMPRESSION: NO ACUTE FINDINGS Impression dictated by: Azeem Sanchez Jr., D.OJorge11/14/2023 9:53 AM Dictation Location: [place] [address] Transcribed By: [facility] 11/14/23 0953 Dictated By: Azeem Sanchez Jr, DO 11/14/2353 Signed By: 11/14/2353 Normal [facility] Alanine aminotransferase [En zymatic activity/volume] in Serum or PlasmaOrdered By: Nayla Dorsey on 05-17-2023 ALT [Catalytic activity/Vol] 19 U/L 7-52 [facility] Albumin [Mass/volume] in Ser um or Plasma by Bromocresol green (BCG) dye binding methoOrdered By: Nayla Dorsey on 05-17-2023 Albumin BCG dye [Mass/Vol] 5.0 g/dL 3.5-5.7 [facility] Alkaline phosphatase [Enzyma tic activity/volume] in Serum or PlasmaOrdered By: Nayla Dorsey on 05-17-2023 ALP [Catalytic activity/Vol] 85 U/L 34-104 [facility] Aspartate aminotransferase [ Enzymatic activity/volume] in Serum or PlasmaOrdered By: Nayla Dorsey 05-17-2023 AST [Catalytic activity/Vol] 18 U/L 13-39 [facility] Bilirubin.total [Mass/volume ] in Serum or PlasmaOrdered By: Nayla Dorsey on 05-17-2023 Bilirubin [Mass/Vol] 0.6 mg/dL 0.3-1.[address] [facility] Calcium [Mass/volume] in Ser um or PlasmaOrdered By: Nayla Dorsey on 05-17-2023 Calcium [Mass/Vol] 10.1 mg/dL 8.6-10.3 [facility] Carbon dioxide, total [Moles /volume] in Serum or PlasmaOrdered By: Nayla Dorsey on 05-17-2023 CO2 [Moles/Vol] 29.1 mmol/L 21.0-31.[address] [facility] Chloride [Moles/volume] in S laura or PlasmaOrdered By: Nayla Dorsey on 05-17-2023 Chloride [Moles/Vol] 104 mmol/L 98-[address] [facility] Creatinine [Mass/volume] in Serum or PlasmaOrdered By: Nayla Dorsey on 05-17-2023 Creatinine [Mass/Vol] 1.21 mg/dL 0.70-1.30 [facility] Globulin Calc (S) [Mass/Vol] Ordered By: Nayla Dorsey on 05-17-2023 Globulin (S) [Mass/Vol] 2.6 g/dL [facility] Glucose [Mass/volume] in Ser um or PlasmaOrdered By: Nayla Dorsey on 05-17-2023 Glucose [Mass/Vol] 96 mg/dL 70-100 [facility] Comment on above: ADA recommended refe rence rangeRandom Glucose Reference Range is dependent on time and content of last meal. Glucose of more than 200 mg/dL in a nonstressed, ambulatory subject supports the diagnosis of Diabetes Mellitus. No Panel InformationOrdered By: Nayla Dorsey on 05-17-2023 Estimated GFR (CKD-EPI) > 60.0 mL/Min [facility] Creatinine Clearance (Chem N/A [facility] Potassium [Moles/volume] in Serum or PlasmaOrdered By: Nayla Dorsey on 05-17-2023 Potassium [Moles/Vol] 4.9 mmol/L 3.5-5.1 [facility] Protein [Mass/volume] in Ser um or PlasmaOrdered By: Nayla Dorsey on 05-17-2023 Protein [Mass/Vol] 7.6 g/dL 6.4-8.9 [facility] Serum or plasma albumin/glob ulin mass ratioOrdered By: Nayla Dorsey on 05-17-2023 Albumin/Globulin [Mass ratio] 1.9 {ratio} [facility] Serum or plasma anion gap de terminationOrdered By: Nayla Dorsey on 05-17-2023 Anion gap [Moles/Vol] 12.8 mmol/L 6.0-15.0 [facility] Sodium [Moles/volume] in Ser um or PlasmaOrdered By: Naylashanna [place] on 05-17-2023 Sodium [Moles/Vol] 141 mmol/L 136-145 [facility] Urea nitrogen [Mass/volume] in Serum or PlasmaOrdered By: Nayla [place] on 05-17-2023 Urea nitrogen [Mass/Vol] 15 mg/dL 7-25 [facility] C Urineon 04-06-2023 Bacteria identified Cx Nom [...] R1: This test was performed at: [facility], [address] [place] [address], [facility]- , , Normal [facility] Comment on above: Performed By: #### 2 [id number] #### [facility] [address] [place] [address] Family Medicine Office/Clini c Noteon 04-04-2023 Family [...] agree with above documented HPI by medical staff specialist. Portions of this record may have been created with voice recognition artificial intelligence software, specifically Geneix, ECO and or SemiNex. Substitutions may have occurred due to the inherent limitations of voice recognition and artificial intelligence software. Patient is a 17-year-old male who presented to [facility], for sore throat, possible thrush, patient states [...] having chills, and headaches, has been taking mgpo-qze-odekptf Benadryl, and ibuprofen, patient states he has [...] within normal limits. 17-year-old male presented to [facility], for oral thrush, and dysuria, symptoms of [...] day(s), # 240 mL, Refills(s) 0, Pharmacy: [facility], 197, cm, 04/04/23 9:39:00 EDT, Height/Length Dosing, 86, kg, 04/04/23 9:39:00 EDT, Weight Dosing Group A Strep by PCR 2. 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 Normal [facility] Comment on above: Result Comment: Elec tronically Signed By: JAYDEN DUMONT, JOHN\.kierra\Date and Time Signed: 04/04/23 10:30 EDT Grp A Strp PCRon 04-04-2023 Group A Strep Negative Normal [facility] Comment on above: Result Comment: Test ing performed using DNA amplification. Performed By: #### 1 [id number] #### [facility] [address] [facility] [place] [address] Grp A Strp Intrl Ctrl Pass Normal [facility] Comment on above: Performed By: #### 1 [id number] #### [facility] [address] [facility] [place] [address] Patient Educationon 04-04-20 Patient Education Infectious Disease [...] mouth. General instructions ? Take or use ewty-yzw-leipypa and prescription medicines only as told by your doctor. ? Eat plain yogurt that has live cultures in it. Read the label to make sure that there are live cultures in your yogurt. ? If you wear false teeth: ? Take them out before you go to bed. ? Russell them well. ? Soak them in a blind cleaner. ? Rinse your mouth with warm [...] provider. Document Revised: 02/10/2022 Document Reviewed: 04/18/2020 [employer] Patient Education ? 2022 [employer] Pulmonary Medicine E-Cigarette or Vaping Use-Associated Lung [...] symptoms? Sympt (more content not included)... Normal [facility] Patient Letter FTMCon [address] [facility] [address], [place] [address] April 04, 2023 CAMERON YODER [address] [place] [address] : 2005 Please excuse CAMERON TERESA from work . Date and/or Time of Absence: From: 04/04/23 May return to work on: 04/05/23 Restrictions: None Comments: Please excuse due to an acute illness. Provider Signature: John Giles PA-C [facility] [address] [place] [address] [facility] [place] 03-08-2023 Consent [phone] [id number] #[id number] [facility] Family Medicine Office/Clini c Noteon [...] with voice recognition software. Occasional wrong-word or ?httcb-z-lyhw? substitutions may have occurred due to the [...] of. Patient states he was seen at [facility] about a month or so ago at [...] understands plan of care. 1. TMJ click (R29.208: Other symptoms and signs involving the musculoskeletal [...] taking prednisone. (more content not included)... Normal [facility] Comment on above: Result Comment: Elec [...] not chew gum. General instructions ? Take iecz-ase-qycvjvp and prescription medicines only as told by [...] Where to find more information ? National [place] [employer]io[employer] Research: www.nidcr.nih.gov Contact [...] provider. Document Revised: 01/24/2022 Document Reviewed: 01/24/2022 [employer] Patient Education ? 2022 [employer]. Cervical Sprain A cervical sprain is also [...] nerves (ner (more content not included)... Normal [facility] COVID Quick Testingon 2022 Result Negative My1login Other Quick Strepon 02-06-2023 S. pyogenes Org specific cx Ql (Throat) Negative 5gig Other Quick Strep [employer] Other Erythrocyte sedimentation ra te by Photometric methodOrdered By: Mio Nicholson on 10-23-2022 ESR Photometric method (Bld) [Velocity] 2 mm/hr 0-14 [facility] Troponin I.cardiac [Mass/vol ume] in Serum or Plasma by Detection limit <= 0.01 ng/Ordered By: Mio Nicholson on 10-23-2022 Troponin I.cardiac DL <= 0.01 ng/mL [Mass/Vol] 3.0 pg/mL 0.0-20.0 [facility] Alanine aminotransferase [En zymatic activity/volume] in Serum or PlasmaOrdered By: Saqib Brantley on 10-22-2022 ALT [Catalytic activity/Vol] 17 U/L 7-52 [facility] Albumin [Mass/volume] in Ser um or Plasma by Bromocresol green (BCG) dye binding methoOrdered By: Saqib Brantley on 10-22-2022 Albumin BCG dye [Mass/Vol] 4.4 g/dL 3.5-5.7 [facility] Alkaline phosphatase [Enzyma tic activity/volume] in Serum or PlasmaOrdered By: Saqib Brantley on 10-22-2022 ALP [Catalytic activity/Vol] 69 U/L 34-104 [facility] Aspartate aminotransferase [ Enzymatic activity/volume] in Serum or PlasmaOrdered By: Saqib Brantley on 10-22-2022 AST [Catalytic activity/Vol] 16 U/L 13-39 [facility] Basophils Auto (Bld) [#/Vol] Ordered By: Saqib Brantley on 10-22-2022 Basophils (Bld) [#/Vol] 0.0 10*3/uL 0.0-0.2 [facility] Basophils/100 WBC Auto (Bld) Ordered By: Saqib Brantley on 10-22-2022 Basophils/100 WBC (Bld) 0.4 % . [facility] Bilirubin.total [Mass/volume ] in Serum or PlasmaOrdered By: Saqib Brantley 10-22-2022 Bilirubin [Mass/Vol] 0.6 mg/dL 0.3-1.[address] [facility] Calcium [Mass/volume] in Ser um or PlasmaOrdered By: Saqib Brantley on 10-22-2022 Calcium [Mass/Vol] 8.7 mg/dL 8.6-10.3 [facility] Carbon dioxide, total [Moles /volume] in Serum or PlasmaOrdered By: Saqib Brantley on 10-22-2022 CO2 [Moles/Vol] 24.7 mmol/L 21.0-31.[address] [facility] Chloride [Moles/volume] in S laura or PlasmaOrdered By: Saqib Brantley on 10-22-2022 Chloride [Moles/Vol] 107 mmol/L 98-[address] [facility] Creatine kinase [Enzymatic a ctivity/volume] in Serum or PlasmaOrdered By: Saqib Brantley 10-22-2022 CK [Catalytic activity/Vol] 173 U/L 30-223 [facility] Creatine kinase.MB [Mass/vol ume] in Serum or PlasmaOrdered By: Saqib Brantley on 10-22-2022 CK.MB [Mass/Vol] 1.7 ng/mL 0.6-6.[address] [facility] Creatinine [Mass/volume] in Serum or PlasmaOrdered By: Saqib Brantley on 10-22-2022 Creatinine [Mass/Vol] 1.00 mg/dL 0.70-1.30 [facility] Eosinophils Auto (Bld) [#/Vo l]Ordered By: Saqib Brantley on 10-22-2022 Eosinophils (Bld) [#/Vol] 0.1 10*3/uL 0.0-0.45 [facility] Eosinophils/100 WBC Auto (Bl d)Ordered By: Saqib Brantley on 10-22-2022 Eosinophils/100 WBC (Bld) 1.0 % . [facility] Erythrocyte distribution wid th Auto (RBC) [Ratio]Ordered By: Saqib Brantley on 10-22-2022 Erythrocyte distribution width (RBC) [Ratio] 13.7 % 12.0-14.8 [facility] Globulin Calc (S) [Mass/Vol] Ordered By: Saqib Brantley on 10-22-2022 Globulin (S) [Mass/Vol] 2.4 g/dL [facility] Glucose Glucometer (BldC) [M ass/Vol]Ordered By: Saqib Bratnley on 10-22-2022 Glucose [Mass/Vol] 74 mg/dL [facility] Comment on above: Random Glucose Refer ence Range is dependent on time and content of last meal. Glucose of more than 200 mg/dL in a nonstressed, ambulatory subject supports the diagnosis of Diabetes Mellitus. Glucose [Mass/volume] in Ser um or PlasmaOrdered By: Saqib Brantley on 10-22-2022 Glucose [Mass/Vol] 91 mg/dL 70-100 [facility] Comment on above: ADA recommended refe rence rangeRandom Glucose Reference Range is dependent on time and content of last meal. Glucose of more than 200 mg/dL in a nonstressed, ambulatory subject supports the diagnosis of Diabetes Mellitus. Hematocrit Auto (Bld) [Volum e fraction]Ordered By: Saqib Brantley on 10-22-2022 Hematocrit (Bld) [Volume fraction] 46.1 % 38.8-50.0 [facility] Hemoglobin [Mass/volume] in BloodOrdered By: Saqib Brantley on 10-22-2022 Hemoglobin (Bld) [Mass/Vol] 15.7 g/dL 13.0-17.0 [facility] Leukocytes [#/volume] correc jayleen for nucleated erythrocytes in Blood by Automated counOrdered By: Saqib Brantley on 10-22-2022 WBC corrected for nucl RBC Auto (Bld) [#/Vol] 10.5 10*3/uL 4.1-10.5 [facility] Lymphocytes Auto (Bld) [#/Vo l]Ordered By: Saqib Brantley on 10-22-2022 Lymphocytes (Bld) [#/Vol] 1.8 10*3/uL 1.00-4.8 [facility] Lymphocytes/100 WBC Auto (Bl d)Ordered By: Saqib Brantley on 10-22-2022 Lymphocytes/100 WBC (Bld) 17.4 % . [facility] MCH Auto (RBC) [Entitic mass ]Ordered By: Saqib Brantley on 10-22-2022 MCH (RBC) [Entitic mass] 29.5 pg 27.5-35.2 [facility] MCHC Auto (RBC) [Mass/Vol]Or dered By: Saqib Brantley on 10-22-2022 MCHC (RBC) [Mass/Vol] 34.0 g/dL 32.5-35.6 [facility] MCV Auto (RBC) [Entitic vol] Ordered By: Saqib Brantley on 10-22-2022 MCV (RBC) [Entitic vol] 86.7 fL 83.5-[address] [facility] Monocytes Auto (Bld) [#/Vol] Ordered By: Saqib Brantley on 10-22-2022 Monocytes (Bld) [#/Vol] 0.7 10*3/uL 0.0-0.8 [facility] Monocytes/100 WBC Auto (Bld) Ordered By: Saqib Brantley on 10-22-2022 Monocytes/100 WBC (Bld) 7.1 % . [facility] Neutrophils Auto (Bld) [#/Vo l]Ordered By: Saqib Brantley on 10-22-2022 Neutrophils (Bld) [#/Vol] 7.7 10*3/uL 1.8-7.7 [facility] Neutrophils/100 WBC Auto (Bl d)Ordered By: Saqib Brantley on 10-22-2022 Neutrophils/100 WBC (Bld) 74.1 % . [facility] No Panel InformationOrdered By: Saqib Brantley on 10-22-2022 Bedside Glucose Comment Glu2: cleaned meter [facility] Estimated GFR (CKD-EPI) > 60.0 mL/Min [facility] Creatinine Clearance (Chem 143.69 [facility] Nucleated erythrocytes [Pres ence] in Blood by Automated countOrdered By: Saqib Brantley on 10-22-2022 Nucleated RBC Auto Ql (Bld) 0.1 /100{WBC} 0-0.5 [facility] Platelet mean volume Auto (B ld) [Entitic vol]Ordered By: Saqib Brantley on 10-22-2022 Platelet mean volume (Bld) [Entitic vol] 9.3 fL 6.6-10.1 [facility] Platelets Auto (Bld) [#/Vol] Ordered By: Saqib Brantley on 10-22-2022 Platelets (Bld) [#/Vol] 174 10*3/uL 150-450 [facility] Potassium [Moles/volume] in Serum or PlasmaOrdered By: Saqib Brantley on 10-22-2022 Potassium [Moles/Vol] 3.9 mmol/L 3.5-5.1 [facility] Protein [Mass/volume] in Ser um or PlasmaOrdered By: Saqib Brantley on 10-22-2022 Protein [Mass/Vol] 6.8 g/dL 6.4-8.9 [facility] RBC Auto (Bld) [#/Vol]Ordere d By: Saqib Brantley on 10-22-2022 RBC (Bld) [#/Vol] 5.32 10*6/uL 3.90-5.60 [facility] Serum or plasma albumin/glob ulin mass ratioOrdered By: Saqib Brantley on 10-22-2022 Albumin/Globulin [Mass ratio] 1.8 {ratio} [facility] Serum or plasma anion gap de terminationOrdered By: Saqib Brantley on 10-22-2022 Anion gap [Moles/Vol] 10.2 mmol/L 6.0-15.0 [facility] Serum or plasma creatine kin ase MB (CKMB)/total creatine kinase (CK) ratio by calculaOrdered By: Saqib Brantley on 10-22-2022 CK.MB Calc [Catalytic fraction] 0.9 % 0.00-2.50 [facility] Sodium [Moles/volume] in Ser um or PlasmaOrdered By: Saqib Brantley on 10-22-2022 Sodium [Moles/Vol] 138 mmol/L 136-145 [facility] Urea nitrogen [Mass/volume] in Serum or PlasmaOrdered By: Saqib Brantley on 10-22-2022 Urea nitrogen [Mass/Vol] 16 mg/dL 7-25 [facility] WBC Auto (Bld) [#/Vol]Ordere d By: Saqib Brantley on 10-22-2022 WBC (Bld) [#/Vol] 10.5 10*3/uL 4.1-10.5 [facility] Acetaminophen [Mass/volume] in Serum or PlasmaOrdered By: Mehdi Ornelas on 10-21-2022 Acetaminophen [Mass/Vol] 0.7 ug/mL 10.0-30.0 [facility] Alanine aminotransferase [En zymatic activity/volume] in Serum or PlasmaOrdered By: Mehdi Ornelas on 10-21-2022 ALT [Catalytic activity/Vol] 19 U/L 7-52 [facility] Albumin [Mass/volume] in Ser um or Plasma by Bromocresol green (BCG) dye binding methoOrdered By: Mehdi Ornelas on 10-21-2022 Albumin BCG dye [Mass/Vol] 4.9 g/dL 3.5-5.7 [facility] Alkaline phosphatase [Enzyma tic activity/volume] in Serum or PlasmaOrdered By: Mehdi Ornelas on 10-21-2022 ALP [Catalytic activity/Vol] 82 U/L 34-104 [facility] Amphetamine Screen Ql (U)Ord ered By: Mehdi Ornelas on 10-21-2022 Amphetamines Ql (U) Negative Negative [facility] Aspartate aminotransferase [ Enzymatic activity/volume] in Serum or PlasmaOrdered By: Mehdi Ornelas on 10-21-2022 AST [Catalytic activity/Vol] 19 U/L 13-39 [facility] Automated erythrocytes count in urine sediment (number/area)Ordered By: Mehdi Ornelas on 10-21-2022 RBC Auto (Urine sed) [#/Area] 0-1 [HPF] 0-4 [facility] Automated leukocytes count i n urine sediment (number/area)Ordered By: Mehdi Ornelas on 10-21-2022 WBC Auto (Urine sed) [#/Area] None seen [HPF] 0-4 [facility] Barbiturates [Presence] in U rine by Screen methodOrdered By: Mehdi Ornelas on 10-21-2022 Barbiturates Screen Ql (U) Negative Negative [facility] Basophils Auto (Bld) [#/Vol] Ordered By: Mehdi Ornelas on 10-21-2022 Basophils (Bld) [#/Vol] 0.0 10*3/uL 0.0-0.2 [facility] Basophils/100 WBC Auto (Bld) Ordered By: Mehdi Ornelas on 10-21-2022 Basophils/100 WBC (Bld) 0.3 % . [facility] Benzodiazepines Screen Ql (U )Ordered By: Mehdi Ornelas on 10-21-2022 Benzodiazepines Ql (U) Negative Negative [facility] Benzoylecgonine [Presence] i n Urine by Screen methodOrdered By: Mehdi Ornelas on 10-21-2022 Benzoylecgonine Screen Ql (U) Negative Negative [facility] Bilirubin Test strip Ql (U)O rdered By: Mehdi Ornelas on 10-21-2022 Bilirubin Ql (U) Negative Negative [facility] Bilirubin.total [Mass/volume ] in Serum or PlasmaOrdered By: Mehdi Ornelas on 10-21-2022 Bilirubin [Mass/Vol] 0.4 mg/dL 0.3-1.[address] [facility] Calcium [Mass/volume] in Ser um or PlasmaOrdered By: Mehdi Ornelas on 10-21-2022 Calcium [Mass/Vol] 9.9 mg/dL 8.6-10.3 [facility] Cannabinoids [Presence] in U rine by Screen methodOrdered By: Mehdi Ornelas on 10-21-2022 Cannabinoids Screen Ql (U) Negative Negative [facility] Comment on above: These are unconfirme d results and should not be used for legal purposes. Drug Cut-Off Concentration: AMPH 1000 ng/mL MACEY 200 ng/mL MAR 200 ng/mL COCM 300 ng/mL OP 300 ng/mL PCP 25 ng/mL THC 20 ng/mL Carbon dioxide, total [Moles /volume] in Serum or PlasmaOrdered By: Mehdi Ornelas on 10-21-2022 CO2 [Moles/Vol] 20.9 mmol/L 21.0-31.[address] [facility] Chloride [Moles/volume] in S laura or PlasmaOrdered By: Mehdi Ornelas on 10-21-2022 Chloride [Moles/Vol] 103 mmol/L 98-[address] [facility] Color Auto (U)Ordered By: Osmany Ornelas on 10-21-2022 Color (U) Yellow Yellow [facility] Creatinine [Mass/volume] in Serum or PlasmaOrdered By: Mehdi Ornelas on 10-21-2022 Creatinine [Mass/Vol] 1.15 mg/dL 0.70-1.30 [facility] Eosinophils Auto (Bld) [#/Vo l]Ordered By: Mehdi Ornelas on 10-21-2022 Eosinophils (Bld) [#/Vol] 0.0 10*3/uL 0.0-0.45 [facility] Eosinophils/100 WBC Auto (Bl d)Ordered By: Mehdi Ornelas on 10-21-2022 Eosinophils/100 WBC (Bld) 0.4 % . [facility] Erythrocyte distribution wid th Auto (RBC) [Ratio]Ordered By: Mehdi Ornelas on 10-21-2022 Erythrocyte distribution width (RBC) [Ratio] 13.7 % 12.0-14.8 [facility] Ethanol [Mass/volume] in Ser um or PlasmaOrdered By: Mehdi Ornelas on 10-21-2022 Ethanol [Mass/Vol] mg/dL [facility] Ethanol [Mass/Vol] TNP [facility] Comment on above: Test not performed Globulin Calc (S) [Mass/Vol] Ordered By: Mehdi Ornelas on 10-21-2022 Globulin (S) [Mass/Vol] 3.1 g/dL [facility] Glucose Glucometer (BldC) [M ass/Vol]Ordered By: Mehdi Ornelas on 10-21-2022 Glucose [Mass/Vol] 105 mg/dL [facility] Comment on above: Random Glucose Refer ence Range is dependent on time and content of last meal. Glucose of more than 200 mg/dL in a nonstressed, ambulatory subject supports the diagnosis of Diabetes Mellitus. Glucose [Mass/volume] in Ser um or PlasmaOrdered By: Mehdi Ornelas on 10-21-2022 Glucose [Mass/Vol] 115 mg/dL 70-100 [facility] Comment on above: ADA recommended refe rence rangeRandom Glucose Reference Range is dependent on time and content of last meal. Glucose of more than 200 mg/dL in a nonstressed, ambulatory subject supports the diagnosis of Diabetes Mellitus. Hematocrit Auto (Bld) [Volum e fraction]Ordered By: Mehdi Ornelas on 10-21-2022 Hematocrit (Bld) [Volume fraction] 48.4 % 38.8-50.0 [facility] Hemoglobin [Mass/volume] in BloodOrdered By: Mehdi Ornelas on 10-21-2022 Hemoglobin (Bld) [Mass/Vol] 16.5 g/dL 13.0-17.0 [facility] Ketones Auto test strip (U) [Mass/Vol]Ordered By: Mehdi Ornelas on 10-21-2022 Ketones (U) [Mass/Vol] 1+ Negative [facility] - UrinalysisOrder ed By: Mehdi Ornelas on 10-21-2022 Hyaline casts LM Ql (Urine sed) None seen [LPF] 0-8 [facility] Leukocytes [#/volume] correc jayleen for nucleated erythrocytes in Blood by Automated counOrdered By: Mehdi Ornelas on 10-21-2022 WBC corrected for nucl RBC Auto (Bld) [#/Vol] 11.2 10*3/uL 4.1-10.5 [facility] Lymphocytes Auto (Bld) [#/Vo l]Ordered By: Mehdi Ornelas on 10-21-2022 Lymphocytes (Bld) [#/Vol] 1.6 10*3/uL 1.00-4.8 [facility] Lymphocytes/100 WBC Auto (Bl d)Ordered By: Mehdi Ornelas on 10-21-2022 Lymphocytes/100 WBC (Bld) 14.0 % . [facility] MCH Auto (RBC) [Entitic mass ]Ordered By: Mehdi Ornelas on 10-21-2022 MCH (RBC) [Entitic mass] 29.5 pg 27.5-35.2 [facility] MCHC Auto (RBC) [Mass/Vol]Or dered By: Mehdi Ornelas on 10-21-2022 MCHC (RBC) [Mass/Vol] 34.1 g/dL 32.5-35.6 [facility] MCV Auto (RBC) [Entitic vol] Ordered By: Mehdi Ornelas on 10-21-2022 MCV (RBC) [Entitic vol] 86.6 fL 83.5-[address] [facility] Magnesium [Mass/volume] in S laura or PlasmaOrdered By: Mehdi Ornelas on 10-21-2022 Magnesium [Mass/Vol] 1.8 mg/dL 1.9-2.[address] [facility] Monocyte distribution width [Entitic volume] in Blood by AutomatedOrdered By: Mehdi Ornelas on 10-21-2022 Monocyte distribution width Auto (Bld) [Entitic vol] 17.66 % 0.00-20.00 [facility] Monocytes Auto (Bld) [#/Vol] Ordered By: Mehdi Ornelas on 10-21-2022 Monocytes (Bld) [#/Vol] 0.7 10*3/uL 0.0-0.8 [facility] Monocytes/100 WBC Auto (Bld) Ordered By: Mehdi Ornelas on 10-21-2022 Monocytes/100 WBC (Bld) 6.1 % . [facility] Neutrophils Auto (Bld) [#/Vo l]Ordered By: Mehdi Ornelas on 10-21-2022 Neutrophils (Bld) [#/Vol] 8.9 10*3/uL 1.8-7.7 [facility] Neutrophils/100 WBC Auto (Bl d)Ordered By: Mehdi Ornelas on 10-21-2022 Neutrophils/100 WBC (Bld) 79.2 % . [facility] Nitrite Test strip Ql (U)Ord ered By: Mehdi Ornelas on 10-21-2022 Nitrite Ql (U) Negative Negative [facility] No Panel InformationOrdered By: Mehdi Ornelas on 10-21-2022 Bedside Glucose Comment Glu2: cleaned meter [facility] Estimated GFR (CKD-EPI) > 60.0 mL/Min [facility] Creatinine Clearance (Chem 124.62 [facility] Nucleated erythrocytes [Pres ence] in Blood by Automated countOrdered By: Mehdi Ornelas on 10-21-2022 Nucleated RBC Auto Ql (Bld) 0.1 /100{WBC} 0-0.5 [facility] Opiates [Presence] in Urine by Screen methodOrdered By: Mehdi Ornelas on 10-21-2022 Opiates Screen Ql (U) Negative Negative [facility] Phencyclidine Screen Ql (U)O rdered By: Mehdi Ornelas on 10-21-2022 Phencyclidine Ql (U) Negative Negative [facility] Platelet mean volume Auto (B ld) [Entitic vol]Ordered By: Mehdi Ornelas on 10-21-2022 Platelet mean volume (Bld) [Entitic vol] 9.4 fL 6.6-10.1 [facility] Platelets Auto (Bld) [#/Vol] Ordered By: Mehdi Ornelas on 10-21-2022 Platelets (Bld) [#/Vol] 214 10*3/uL 150-450 [facility] Potassium [Moles/volume] in Serum or PlasmaOrdered By: Mehdi Ornelas on 10-21-2022 Potassium [Moles/Vol] 3.5 mmol/L 3.5-5.1 [facility] Protein Auto test strip (U) [Mass/Vol]Ordered By: Mehdi Ornelas on 10-21-2022 Protein (U) [Mass/Vol] Trace mg/dL Negative [facility] Protein [Mass/volume] in Ser um or PlasmaOrdered By: Mehdi Ornelas on 10-21-2022 Protein [Mass/Vol] 8.0 g/dL 6.4-8.9 [facility] RBC Auto (Bld) [#/Vol]Ordere d By: Mehdi Ornelas on 10-21-2022 RBC (Bld) [#/Vol] 5.59 10*6/uL 3.90-5.60 [facility] Salicylates [Mass/volume] in Serum or PlasmaOrdered By: Mehdi Ornelas on 10-21-2022 Salicylates [Mass/Vol] mg/dL 15.0-30.0 [facility] Comment on above: Patients treated wit h Sulfasalazine may generate a false high result for Salicylate. Serum or plasma albumin/glob ulin mass ratioOrdered By: Mehdi Ornelas on 10-21-2022 Albumin/Globulin [Mass ratio] 1.6 {ratio} [facility] Serum or plasma anion gap de terminationOrdered By: Mehdi Ornleas 10-21-2022 Anion gap [Moles/Vol] 16.6 mmol/L 6.0-15.0 [facility] Sodium [Moles/volume] in Ser um or PlasmaOrdered By: Mehdi Ornelas 10-21-2022 Sodium [Moles/Vol] 137 mmol/L 136-145 [facility] Specific gravity Auto test s trip (U) [Rel density]Ordered By: Mehdi Ornelas on 10-21-2022 Specific gravity (U) [Rel density] 1.023 1.001-1.030 [facility] Squamous epithelial cells de tection in urine sediment by light microscopyOrdered By: Mehdi Ornelas 10-21-2022 Epithelial cells.squamous LM Ql (Urine sed) None seen [HPF] 0-2 [facility] Urea nitrogen [Mass/volume] in Serum or PlasmaOrdered By: Mehdi Ornelas 10-21-2022 Urea nitrogen [Mass/Vol] 14 mg/dL 7-25 [facility] Urine bacteria detection by automated methodOrdered By: Mehdi Ornelas on 10-21-2022 Bacteria Auto Ql (U) None seen None Seen [facility] Urine clarity by refractomet ry automatedOrdered By: Mehdi Ornelas 10-21-2022 Clarity Refractometry automated (U) Clear Clear [facility] Urine glucose measurement by automated test strip (mass/volume)Ordered By: Mehdi Ornelas on 10-21-2022 Glucose Auto test strip (U) [Mass/Vol] Normal mg/dL Normal [facility] Urine hemoglobin detection b y automated test stripOrdered By: Mehdi Ornelas on 10-21-2022 Hemoglobin Auto test strip Ql (U) Negative Negative [facility] Urine leukocyte esterase det ection by automated test stripOrdered By: Mehdi Ornelas on 10-21-2022 Leukocyte esterase Auto test strip Ql (U) Negative Negative [facility] Urobilinogen Auto test strip (U) [Mass/Vol]Ordered By: Mehdi Ornelas on 10-21-2022 Urobilinogen (U) [Mass/Vol] Normal mg/dL Normal [facility] WBC Auto (Bld) [#/Vol]Ordere d By: Mehdi Ornelas on 10-21-2022 WBC (Bld) [#/Vol] 11.2 10*3/uL 4.1-10.5 [facility] pH Auto test strip (U)Ordere d By: Mehdi Ornelas on 10-21-2022 pH (U) 8.5 [pH] 5.0-9.0 [facility] Alanine aminotransferase [En zymatic activity/volume] in Serum or PlasmaOrdered By: Nicole Jarrett on 10-13-2022 ALT [Catalytic activity/Vol] 20 U/L 7-52 [facility] Albumin [Mass/volume] in Ser um or Plasma by Bromocresol green (BCG) dye binding methoOrdered By: Nicole Jarrett on 10-13-2022 Albumin BCG dye [Mass/Vol] 4.7 g/dL 3.5-5.7 [facility] Alkaline phosphatase [Enzyma tic activity/volume] in Serum or PlasmaOrdered By: Nicole Jarrett on 10-13-2022 ALP [Catalytic activity/Vol] 82 U/L 34-104 [facility] Aspartate aminotransferase [ Enzymatic activity/volume] in Serum or PlasmaOrdered By: Nicole Jarrett on 10-13-2022 AST [Catalytic activity/Vol] 23 U/L 13-39 [facility] Basophils Auto (Bld) [#/Vol] Ordered By: Nicole Jarrett on 10-13-2022 Basophils (Bld) [#/Vol] 0.0 10*3/uL 0.0-0.2 [facility] Basophils/100 WBC Auto (Bld) Ordered By: Nicole Jarrett on 10-13-2022 Basophils/100 WBC (Bld) 0.3 % . [facility] Bilirubin.total [Mass/volume ] in Serum or PlasmaOrdered By: Nicole Jarrett on 10-13-2022 Bilirubin [Mass/Vol] 0.3 mg/dL 0.3-1.[address] [facility] C reactive protein [Mass/vol ume] in Serum or PlasmaOrdered By: Nicole Jarrett on 10-13-2022 CRP [Mass/Vol] < 0.5 mg/dL 0.0-0.5 [facility] Calcium [Mass/volume] in Ser um or PlasmaOrdered By: Nicole Jarrett on 10-13-2022 Calcium [Mass/Vol] 9.3 mg/dL 8.6-10.3 [facility] Carbon dioxide, total [Moles /volume] in Serum or PlasmaOrdered By: Nicole Jarrett on 10-13-2022 CO2 [Moles/Vol] 26.3 mmol/L 21.0-31.[address] [facility] Chloride [Moles/volume] in S laura or PlasmaOrdered By: Nicole Jarrett on 10-13-2022 Chloride [Moles/Vol] 105 mmol/L 98-[address] [facility] Creatinine [Mass/volume] in Serum or PlasmaOrdered By: Nicole Jarrett on 10-13-2022 Creatinine [Mass/Vol] 1.03 mg/dL 0.70-1.30 [facility] Eosinophils Auto (Bld) [#/Vo l]Ordered By: Nicole Jarrett on 10-13-2022 Eosinophils (Bld) [#/Vol] 0.2 10*3/uL 0.0-0.45 [facility] Eosinophils/100 WBC Auto (Bl d)Ordered By: Nicole Jarrett on 10-13-2022 Eosinophils/100 WBC (Bld) 2.9 % . [facility] Erythrocyte distribution wid th Auto (RBC) [Ratio]Ordered By: Nicole Jarrett on 10-13-2022 Erythrocyte distribution width (RBC) [Ratio] 13.7 % 12.0-14.8 [facility] Globulin Calc (S) [Mass/Vol] Ordered By: Nicole Jarrett on 10-13-2022 Globulin (S) [Mass/Vol] 2.7 g/dL [facility] Glucose [Mass/volume] in Ser um or PlasmaOrdered By: Nicole Jarrett on 10-13-2022 Glucose [Mass/Vol] 88 mg/dL 70-100 [facility] Comment on above: ADA recommended refe [...] p24 Ag IA Ql Non-Reactive Non Reactive [facility] Comment on above: HIV NegativeHIV-1/HI V-2 antibodies and HIV-1 p24 antigen were NOTdetected. There is no laboratory evidence of HIV infection.Performed at: [facility] [address] [id number] Director: Ricardo Osorio PhD, Phone: [phone] Hematocrit Auto (Bld) [Volum e fraction]Ordered By: Nicole Jarrett on 10-13-2022 Hematocrit (Bld) [Volume fraction] 46.4 % 38.8-50.0 [facility] Hemoglobin [Mass/volume] in BloodOrdered By: Nicole Jarrett on 10-13-2022 Hemoglobin (Bld) [Mass/Vol] 15.9 g/dL 13.0-17.0 [facility] Hepatitis A virus Ab [Presen ce] in Serum by ImmunoassayOrdered By: Nicole Jarrett on 10-13-2022 HAV Ab IA Ql (S) Positive Negative [facility] Comment on above: Performed at: [facility] [address] [id number] Director: Ricardo Osorio PhD, Phone: [phone] Hepatitis B virus surface Ag [Presence] in Serum or Plasma by ImmunoassayOrdered By: Nicole Jarrett on 10-13-2022 HBV surface Ag IA Ql Negative Negative [facility] Hepatitis C virus IgG Ab [Pr esence] in Serum or Plasma by ImmunoassayOrdered By: Nicole Jarrett on 10-13-2022 HCV IgG IA Ql Non-Reactive Non Reactive [facility] Leukocytes [#/volume] correc jayleen for nucleated erythrocytes in Blood by Automated counOrdered By: Nicole Jarrett on 10-13-2022 WBC corrected for nucl RBC Auto (Bld) [#/Vol] 8.0 10*3/uL 4.1-10.5 [facility] Lymphocytes Auto (Bld) [#/Vo l]Ordered By: Nicole Jarrett on 10-13-2022 Lymphocytes (Bld) [#/Vol] 1.7 10*3/uL 1.00-4.8 [facility] Lymphocytes/100 WBC Auto (Bl d)Ordered By: Nicole Jarrett on 10-13-2022 Lymphocytes/100 WBC (Bld) 21.3 % . [facility] MCH Auto (RBC) [Entitic mass ]Ordered By: Nicole Jarrett on 10-13-2022 MCH (RBC) [Entitic mass] 30.0 pg 27.5-35.2 [facility] MCHC Auto (RBC) [Mass/Vol]Or dered By: Nicole Jarrett on 10-13-2022 MCHC (RBC) [Mass/Vol] 34.4 g/dL 32.5-35.6 [facility] MCV Auto (RBC) [Entitic vol] Ordered By: Nicole Jarrett on 10-13-2022 MCV (RBC) [Entitic vol] 87.2 fL 83.5-[address] [facility] Monocytes Auto (Bld) [#/Vol] Ordered By: Nicole Jarrett on 10-13-2022 Monocytes (Bld) [#/Vol] 0.6 10*3/uL 0.0-0.8 [facility] Monocytes/100 WBC Auto (Bld) Ordered By: Nicole Jarrett on 10-13-2022 Monocytes/100 WBC (Bld) 7.1 % . [facility] Neutrophils Auto (Bld) [#/Vo l]Ordered By: Nicole Jarrett on 10-13-2022 Neutrophils (Bld) [#/Vol] 5.5 10*3/uL 1.8-7.7 [facility] Neutrophils/100 WBC Auto (Bl d)Ordered By: Nicole Jarrett on 10-13-2022 Neutrophils/100 WBC (Bld) 68.4 % . [facility] No Panel InformationOrdered By: Nicole Jarrett on 10-13-2022 Estimated GFR (CKD-EPI) > 60.0 mL/Min [facility] Hepatitis B Core Total Antibody Negative Negative [facility] Hepatitis C Interpretation See comment . [facility] Comment on above: Not infected with HC V unless early or acute infection issuspected (which may be delayed in an immunocompromisedindividual), or other evidence exists to indicate HCVinfection. Hepatitis C RNA Quantitative N/A [facility] Creatinine Clearance (Chem N/A [facility] Nucleated erythrocytes [Pres ence] in Blood by Automated countOrdered By: Nicole Jarrett on 10-13-2022 Nucleated RBC Auto Ql (Bld) 0.1 /100{WBC} 0-0.5 [facility] Platelet mean volume Auto (B ld) [Entitic vol]Ordered By: Niocle Jarrett on 10-13-2022 Platelet mean volume (Bld) [Entitic vol] 9.0 fL 6.6-10.1 [facility] Platelets Auto (Bld) [#/Vol] Ordered By: Nicole Jarrett on 10-13-2022 Platelets (Bld) [#/Vol] 215 10*3/uL 150-450 [facility] Potassium [Moles/volume] in Serum or PlasmaOrdered By: Nicole Jarrett on 10-13-2022 Potassium [Moles/Vol] 4.4 mmol/L 3.5-5.1 [facility] Protein [Mass/volume] in Ser um or PlasmaOrdered By: Nicole Jarrett on 10-13-2022 Protein [Mass/Vol] 7.4 g/dL 6.4-8.9 [facility] RBC Auto (Bld) [#/Vol]Ordere d By: Nicole Jarrett on 10-13-2022 RBC (Bld) [#/Vol] 5.32 10*6/uL 3.90-5.60 [facility] Reagin Ab [Presence] in Seru m by RPROrdered By: Nicole Jarrett on 10-13-2022 Reagin Ab RPR Ql (S) Non-Reactive Non Reactive [facility] Comment on above: Performed at: [facility] [address] [id number] Director: Rciardo Osorio PhD, Phone: [phone] Serum hepatitis B virus surf nettie antibody detectionOrdered By: Nicole Jarrett on 10-13-2022 HBV surface Ab Ql (S) Non-Reactive . [facility] Comment on above: Non Reactive: Incons istent with immunity, less than 10 mIU/mL Reactive: Consistent with immunity, greater than 9.9 mIU/mL Serum or plasma albumin/glob ulin mass ratioOrdered By: Nicole Jarrett on 10-13-2022 Albumin/Globulin [Mass ratio] 1.7 {ratio} [facility] Serum or plasma anion gap de terminationOrdered By: Nicole Jarrett on 10-13-2022 Anion gap [Moles/Vol] 13.1 mmol/L 6.0-15.0 [facility] Sodium [Moles/volume] in Ser um or PlasmaOrdered By: Nicole Jarrett on 10-13-2022 Sodium [Moles/Vol] 140 mmol/L 136-145 [facility] Thyrotropin [Units/volume] i n Serum or PlasmaOrdered By: Nicole Jarrett on 10-13-2022 TSH Qn 1.31 m[IU]/L 0.45-5.33 [facility] Urea nitrogen [Mass/volume] in Serum or PlasmaOrdered By: Nicole Jarrett on 10-13-2022 Urea nitrogen [Mass/Vol] 14 mg/dL 7-25 [facility] Vitamin D+Metabolites [Mass/ volume] in Serum or PlasmaOrdered By: Nicole Jarrett on 10-13-2022 Vitamin D+Metabolites [Mass/Vol] 32.5 ng/mL 30-100 [facility] Comment on above: VITAMIN D STATUS 25( [place])VITAMIN D RANGE (ng/mL) Deficient <20 Insufficient 20 to <30Sufficient 30 to 100Reference: Jose MF,Serenity NC, Jc HARRELL, et al. Evaluation,treatment, and prevention of vitamin D deficiency; an Endocrine Society clinical practice guideline. JCEM. 2010; 96(7):1911-30. WBC Auto (Bld) [#/Vol]Ordere d By: Nicole Sofiasanjay on 10-13-2022 WBC (Bld) [#/Vol] 8.0 10*3/uL 4.1-10.5 [facility] ALCOHOL (ETHYL)on 04-25-2022 ALCOHOL (ETHYL) Normal 0-0.010 [facility] Comment on above: Result Comment: <0.0 10 Performed at [address] [address] Performed By: #### E BENNETT #### [facility] [address] [address] CBC with Diffon 04-25-2022 AB IMMATURE NEUT 0.01 K/UL Normal 0.0-0.1 [facility] Comment on above: Performed By: #### C BCD #### [facility] [address] [address] ABS BASO 0.02 K/UL Normal 0.00-0.22 [facility] Comment on above: Performed By: #### C BCD #### [facility] [address] [address] ABS EOS 0.14 K/UL Normal 0-0.45 [facility] Comment on above: Performed By: #### C BCD #### [facility] [address] [address] ABS NEUTROPHILS 4.33 K/UL Normal 1.5-8.0 [facility] Comment on above: Performed By: #### C BCD #### [facility] [address] [address] ABS.NEUT.CALCULATED 4.33 K/UL Normal [facility] Comment on above: Result Comment: Perf ormed at [address] [address] Performed By: #### C BCD #### [facility] [place] [address] [place] [address] Basophils/100 WBC (Bld) 0.30 % Normal 0-1 [facility] Comment on above: Performed By: #### C BCD #### [facility] [place] [address] [place] [address] DIFF TYPE AUTO DIFF Normal [facility] Comment on above: Performed By: #### C BCD #### [facility] [place] [address] [place] [address] Eosinophils/100 WBC (Bld) 2.20 % Normal 0-3 [facility] Comment on above: Performed By: #### C BCD #### [place] [address] [place] [address] Erythrocyte distribution width (RBC) [Ratio] 12.8 % Normal 11.7-15.0 [facility] Comment on above: Performed By: #### C BCD #### [place] [address] [place] [address] Hematocrit (Bld) [Volume fraction] 50.6 % High 41-50 [facility] Comment on above: Performed By: #### C BCD #### [place] [address] [place] [address] Hemoglobin (Bld) [Mass/Vol] 16.9 g/dL High 13.5-16.5 [facility] Comment on above: Performed By: #### C BCD #### [place] [address] [place] [address] Lymphocytes (Bld) [#/Vol] 1.42 10*3/uL Normal 1.2-3.2 [facility] Comment on above: Performed By: #### C BCD #### [place] [address] [place] [address] Lymphocytes/100 WBC (Bld) 22.50 % Normal 20-40 [facility] Comment on above: Performed By: #### C BCD #### [facility] [address] [place] [address] MCH (RBC) [Entitic mass] 29.0 pg Normal 26-34 [facility] Comment on above: Performed By: #### C BCD #### [facility] [place] [address] [address] [place] [address] MCHC 33.4 % Normal 31-37 [facility] Comment on above: Performed By: #### C BCD #### [facility] [place] [address] [place] [address] MCV (RBC) [Entitic vol] 86.8 fL Normal 80-100 [facility] Comment on above: Performed By: #### C BCD #### [place] [address] [place] [address] MEAN PLT VOL 10.9 CU Normal 7.0-12.6 [facility] Comment on above: Performed By: #### C BCD #### [place] [address] [place] [address] Monocytes (Bld) [#/Vol] 0.39 10*3/uL Normal 0-0.8 [facility] Comment on above: Performed By: #### C BCD #### [place] [address] [place] [address] Monocytes/100 WBC (Bld) 6.20 % Normal 0-8 [facility] Comment on above: Performed By: #### C BCD #### [place] [address] [place] [address] Neutrophils/100 WBC (Bld) 0.20 % Normal 0.0-1.0 [facility] Comment on above: Performed By: #### C BCD #### [facility] [place] [address] [place] [address] Neutrophils/100 WBC (Bld) 68.60 % Normal 50-70 [facility] Comment on above: Performed By: #### C BCD #### [facility] [place] [address] [place] [address] NRBC'S 0 /100 WBC Normal 0 [facility] Comment on above: Performed By: #### C BCD #### [facility] [address] [place] [address] Platelets (Bld) [#/Vol] 223 10*3/uL Normal 150-450 [facility] Comment on above: Performed By: #### C BCD #### [facility] [place] [address] [place] [address] RBC (Bld) [#/Vol] 5.83 10*6/uL High 4.5-5.5 [facility] Comment on above: Performed By: #### C BCD #### [facility] [place] [address] [place] [address] RDW-SD 40.3 FL Normal 37.0-54.0 [facility] Comment on above: Performed By: #### C BCD #### [place] [address] [place] [address] WBC (Bld) [#/Vol] 6.3 10*3/uL Normal 4.5-11.0 [facility] Comment on above: Performed By: #### C BCD #### [place] [address] [place] [address] COMPREHENSIVE METABOLIC PANE Aleks 04-25-2022 Albumin [Mass/Vol] 4.5 g/dL Normal 3.5-5.0 [facility] Comment on above: Performed By: #### C INTERDISCIPLINARY PROFESSOR #### [place] [address] [place] [address] Albumin/Globulin [Mass ratio] 1.7 {ratio} Normal 1.5-3.0 [facility] Comment on above: Performed By: #### C INTERDISCIPLINARY PROFESSOR #### [facility] [address] [place] [address] ALP [Catalytic activity/Vol] 106 U/L Normal 35-125 [facility] Comment on above: Performed By: #### C INTERDISCIPLINARY PROFESSOR #### [facility] [place] [address] [place] [address] ALT [Catalytic activity/Vol] 16 U/L Normal 5-40 [facility] Comment on above: Performed By: #### C INTERDISCIPLINARY PROFESSOR #### [facility] [address] [place] [address] Anion gap [Moles/Vol] 10 mmol/L Normal 0-19 [facility] Comment on above: Performed By: #### C INTERDISCIPLINARY PROFESSOR #### [facility] [address] [address] [place] [address] AST [Catalytic activity/Vol] 16 U/L Normal 5-40 [facility] Comment on above: Performed By: #### C INTERDISCIPLINARY PROFESSOR #### [facility] [address] [address] [place] [address] Bilirubin [Mass/Vol] 0.3 mg/dL Normal 0.1-1.2 [facility] Comment on above: Performed By: #### C INTERDISCIPLINARY PROFESSOR #### [facility] [address] [address] [place] [address] Calcium [Mass/Vol] 9.8 mg/dL Normal 8.5-10.4 [facility] Comment on above: Performed By: #### C INTERDISCIPLINARY PROFESSOR #### [facility] [address] [address] [place] [address] Chloride [Moles/Vol] 103 mmol/L Normal 97-107 [facility] Comment on above: Performed By: #### C INTERDISCIPLINARY PROFESSOR #### [facility] [address] [address] [place] [address] CO2 [Moles/Vol] 28 mmol/L Normal 24-31 [facility] Comment on above: Performed By: #### C INTERDISCIPLINARY PROFESSOR #### [facility] [address] [place] [address] Creatinine [Mass/Vol] 1.1 mg/dL Normal 0.4-1.6 [facility] Comment on above: Performed By: #### C INTERDISCIPLINARY PROFESSOR #### [facility] [address] [address] [place] [address] ESTIMATED GFR 100 mL/min/1.73 m2 Normal [facility] Comment on above: Result Comment: Perf ormed at [place] [address] [place] [address] Performed By: #### C INTERDISCIPLINARY PROFESSOR #### [facility] [place] [place] [address] Globulin (S) [Mass/Vol] 2.6 g/dL Normal 1.9-3.7 [facility] Comment on above: Performed By: #### C INTERDISCIPLINARY PROFESSOR #### [facility] [address] [place] [address] Glucose [Mass/Vol] 111 mg/dL High 65-99 [facility] Comment on above: Performed By: #### C INTERDISCIPLINARY PROFESSOR #### [facility] [place] [address] [place] [address] Potassium [Moles/Vol] 3.9 mmol/L Normal 3.4-5.1 [facility] Comment on above: Performed By: #### C INTERDISCIPLINARY PROFESSOR #### [facility] [place] [place] [address] Protein [Mass/Vol] 7.1 g/dL Normal 5.9-7.9 [facility] Comment on above: Performed By: #### C INTERDISCIPLINARY PROFESSOR #### [place] [address] [place] [address] Sodium [Moles/Vol] 141 mmol/L Normal 133-145 [facility] Comment on above: Performed By: #### C INTERDISCIPLINARY PROFESSOR #### [place] [address] [place] [address] Urea nitrogen [Mass/Vol] 15 mg/dL Normal 8-25 [facility] Comment on above: Performed By: #### C INTERDISCIPLINARY PROFESSOR #### [place] [address] [place] [address] Urea nitrogen/Creatinine [Mass ratio] 13.6 mg/mg Normal 8- [facility] Comment on above: Performed By: #### C INTERDISCIPLINARY PROFESSOR #### [place] [address] [place] [address] EKGon 04-25-2022 Electrocardiogram EKG Ventricular Rate : 112 BPM Atrial Rate : 112 BPM P-R Interval : 134 ms QRS Duration : 78 ms Q-T Interval : 302 ms QTC Calculation(Bazett) : 412 ms Calculated P [place] : 81 degrees Calculated R [place] : 103 degrees Calculated T [place] : 73 degrees Diagnosis:Sinus tachycardia Biatrial enlargement Rightward axis Pulmonary disease pattern RSR' or QR pattern in V1 suggests right ventricular conduction delay ST elevation, consider early repolarization, pericarditis, or injury Abnormal ECG When compared with ECG of 26-MAR-2020 23:11, Vent. rate has increased BY 52 BPM Confirmed by ENZO NAM ([id number]) on 04/30/2022 12:14:14 PM [facility] 04-25-2022 Drug screen comment (U) [Interp] [...] OXYCODONE 100 ng/ml (Reference Range: not available) [facility] - Chemistry and C hemistry - challengeon 04-25-2022 Albumin [Mass/Vol] Albumin 4.5 GM/DL (3.5-5.0 GM/DL) 3.5 - 5.0 GM/DL [facility] Albumin/Globulin [Mass ratio] Albumin Globulin Ratio 1.7 RATIO (1.5-3.0 RATIO) 1.5 - 3.0 RATIO [facility] ALP (Bld) [Catalytic activity/Vol] Alk Phosphatase 106 U/L (35-125 U/L) 35 - 125 U/L [facility] ALT [Catalytic activity/Vol] ALT 16 U/L (5-40 U/L) 5 - 40 U/L [facility] Anion gap [Moles/Vol] Anion Gap 10 MMOL/ L (0-19 MMOL/L) 0 - 19 MMOL/L [facility] AST [Catalytic activity/Vol] AST 16 U/L (5-40 U/L) 5 - 40 U/L [facility] Bilirubin [Mass/Vol] Total Bilirubin 0.3 MG/DL (0.1-1.2 MG/DL) 0.1 - 1.2 MG/DL [facility] Calcium [Mass/Vol] Calcium 9.8 MG/DL (8.5-10.4 MG/DL) 8.5 - 10.4 MG/DL [facility] Chloride [Moles/Vol] Chloride 103 MMOL/L (97-107 MMOL/L) 97 - 107 MMOL/L [facility] [place] CO2 [Moles/Vol] Carbon Dioxide 28 MMOL/L (24-31 MMOL/L) 24 - 31 MMOL/L [facility] [place] Creatinine [Mass/Vol] Creatinine R 1.1 MG/DL (0.4-1.6 MG/DL) 0.4 - 1.6 MG/DL [facility] [place] GFR/1.73 sq M.predicted MDRD (S/P/Bld) [Vol rate/Area] EGFR 100 mL/min/1.73 m2 (Reference Range: not available) Performed at [address] [address] [place] Globulin (S) [Mass/Vol] Globulin 2.6 G/D L (1.9-3.7 G/DL) 1.9 - 3.7 G/DL [facility] [place] Glucose [Mass/Vol] Glucose 111 MG/DL H (65-99 MG/DL) High 65 - 99 MG/DL [facility] [place] Potassium [Moles/Vol] Potassium R 3.9 MMOL/L (3.4-5.1 MMOL/L) 3.4 - 5.1 MMOL/L [facility] [place] Protein [Mass/Vol] Total Protein 7.1 G/DL (5.9-7.9 G/DL) 5.9 - 7.9 G/DL [facility] [place] Sodium [Moles/Vol] Sodium 141 MMOL/L (133-145 MMOL/L) 133 - 145 MMOL/L [facility] [place] Urea nitrogen [Mass/Vol] BUN 15 MG/DL (8-25 MG/DL) 8 - 25 MG/DL [facility] [place] Urea nitrogen/Creatinine [Mass ratio] BUN Creatinine Ratio 13.6 RATIO (8-21 RATIO) 8 - 21 RATIO [facility] [place] Laboratory - Drug toxicology on 04-25-2022 Amphetamines Screen method >1000 ng/mL Ql (U) Urine Amphetamine NEGATIVE (Reference Range: not available) [facility] Barbiturates Screen method >300 ng/mL Ql (U) Urine Barbiturate NEGATIVE (Reference Range: not available) [facility] Benzodiazepines Screen method >300 ng/mL Ql (U) Urine Benzodiazepine NEGATIVE (Reference Range: not available) [facility] Benzoylecgonine Screen method >300 ng/mL Ql (U) Urine Cocaine Metabolites NEGATIVE (Reference Range: not available) [facility] Cannabinoids Screen method >50 ng/mL Ql (U) THC/Cannabinoids NEGATIVE (Reference Range: not available) [facility] Ethanol [Mass/Vol] Alcohol <0.010 Performed at [address] [address] GM/DL (0-0.010 GM/DL) 0 - 0.010 GM/DL [facility] Methadone Ql (U) Urine Methadone NEGATIVE (Reference Range: not available) [facility] Opiates Screen method >300 ng/mL Ql (U) Urine Opiate NEGATIVE (Reference Range: not available) [facility] oxyCODONE Ql (U) Urine Oxycodone NEGATIVE Performed at [address] [address] (Reference Range: not available) [facility] Phencyclidine Screen method >25 ng/mL Ql (U) Urine PCP NEGATIVE (Reference Range: not available) [facility] - Hematology and Cell countson 04-25-2022 Basophils (Bld) [#/Vol] Abs Baso 0.02 K/ UL (0.00-0.22 K/UL) 0.00 - 0.22 K/UL [facility] Basophils/100 WBC (Bld) Basophil 0.30 % (0-1 %) 0 - 1 % [facility] Differential cell count method Nom (Bld) Diff Type AUTO DIFF (Reference Range: not available) [facility] Eosinophils (Bld) [#/Vol] Abs Eos 0.14 K/UL (0-0.45 K/UL) 0 - 0.45 K/UL [facility] Eosinophils/100 WBC (Bld) Eosinophil 2.20 % (0-3 %) 0 - 3 % [facility] Erythrocyte distribution width (RBC) [Entitic vol] RDW SD 40.3 FL (37.0-54.0 FL) 37.0 - 54.0 FL [facility] Erythrocyte distribution width (RBC) [Ratio] RDW CV 12.8 % (11.7-15.0 %) 11.7 - 15.0 % [facility] Hematocrit (Bld) [Volume fraction] HCT 50.6 % H (41-50 %) High 41 - 50 % [facility] Hemoglobin (Bld) [Mass/Vol] HGB 16.9 GM/DL H (13.5-16.5 GM/DL) High 13.5 - 16.5 GM/DL [facility] [place] Immature granulocytes (Bld) [#/Vol] Abs Imm Neut 0.01 K/UL (0.0-0.1 K/UL) 0.0 - 0.1 K/UL [facility] Lymphocytes (Bld) [#/Vol] Abs Lymph 1.42 K/UL (1.2-3.2 K/UL) 1.2 - 3.2 K/UL [facility] Lymphocytes/100 WBC (Bld) Lymphocyte 22.50 % (20-40 %) 20 - 40 % [facility] MCH (RBC) [Entitic mass] MCH 29.0 PG (26-34 PG) 26 - 34 PG [facility] MCHC (RBC) [Mass/Vol] MCHC 33.4 % (31-37 %) 31 - 37 % [facility] MCV (RBC) [Entitic vol] MCV 86.8 FL (80- 100 FL) 80 - 100 FL [facility] Monocytes (Bld) [#/Vol] Abs [place] 0.39 K/ UL (0-0.8 K/UL) 0 - 0.8 K/UL [facility] Monocytes/100 WBC (Bld) Monocyte 6.20 % (0-8 %) 0 - 8 % [facility] Neutrophils (Bld) [#/Vol] Abs.Neut.Calculated 4.33 K/UL (Reference Range: not available) Performed at [address] [address] [facility] [place] Neutrophils (Bld) [#/Vol] Abs Neut 4.33 K/UL (1.5-8.0 K/UL) 1.5 - 8.0 K/UL [facility] Neutrophils.immature/10 0 WBC (Bld) Immature Neut % 0.20 % (0.0-1.0 %) 0.0 - 1.0 % [facility] Nucleated RBC/100 WBC (Bld) [Ratio] NRBCs 0 /100 WBC (0 /100 WBC) [facility] Platelet mean volume (Bld) [Entitic vol] MPV 10.9 CU (7.0-12.6 CU) 7.0 - 12.6 CU [facility] Platelets (Bld) [#/Vol] PLT 223 K/UL (150-450 K/UL) 150 - 450 K/UL [facility] RBC (Bld) [#/Vol] RBC 5.83 M/UL H (4.5-5.5 M/UL) High 4.5 - 5.5 M/UL [facility] Segmented neutrophils/100 WBC (Bld) Granulocyte 68.60 % (50-70 %) 50 - 70 % [facility] WBC (Bld) [#/Vol] WBC 6.3 K/UL (4.5-11.0 K/UL) 4.5 - 11.0 K/UL [facility] - Microbiology an d Antimicrobial susceptibilityon 04-25-2022 FLUAV RNA JERRELL+probe Ql (Nph) FLU A by PCR NEGATIVE (Reference Range: not available) [facility] FLUBV RNA JERRELL+probe Ql (Nph) FLU B by PCR NEGATIVE (Reference Range: not available) [facility] SARS-CoV-2 (COVID-19) RNA JERRELL+probe Ql (Unsp spec) SARS-CoV-2 by PCR NEGATIVE (NEG ) [facility] SARS-CoV-2,INFLUENZA A/B NUC LEIC ACID TESTon 04-25-2022 EUA DISCLAIMER Normal [facility] Comment on above: Result Comment: This test [...] is terminated or revoked sooner. Performed at [place] [address] Performed By: #### F LUCOV #### [place] [address] FLU A by PCR Negative [facility] Comment on above: Performed By: #### F LUCOV #### [place] [address] FLU B by PCR Negative [facility] Comment on above: Performed By: #### F LUCOV #### [place] [address] SARS-CoV-2 (COVID-19) RNA JERRELL+probe Ql (Unsp spec) Negative [facility] Comment on above: Performed By: #### F LUCOV #### [place] [address] URINE DRUG SCREENon 04-25-20 AMPHETAMINE/ECSTASY Negative [facility] Comment on above: Performed By: #### U DS #### [place] [address] BARBITURATE Negative [facility] Comment on above: Performed By: #### U DS #### [address] [address] BENZODIAZEPINE Negative [facility] Comment on above: Performed By: #### U DS #### [place] [address] COCAINE METABOLITES Negative [facility] Comment on above: Performed By: #### U DS #### [address] [address] METHADONE Negative [facility] Comment on above: Performed By: #### U DS #### [address] [address] OPIATE Negative [facility] Comment on above: Performed By: #### U DS #### [facility] [address] [address] OXYCODONE [facility] Comment on above: Result Comment: ROSALBA STUBBS Performed at [address] [place] [address] Performed By: #### U DS #### [facility] [address] [address] PCP Negative [facility] Comment on above: Performed By: #### U DS #### [facility] [address] [address] THC/CANNABINOIDS Negative [facility] Comment on above: Performed By: #### U DS #### [facility] [address] [address] COMMENT [facility] Comment on above: Result [...] ng/ml Performed By: #### U DS #### [facility] [address] [address] Blood Pressure Cuff Sizeon 0 11-05-2021 Fall risk assessment a) No falls within the last year [facility] Work Phone: Tobacco use status [facility] b) No M [facility] Work Phone: Blood Pressure Cuff Size Adult [facility] Work Phone: Jayesh 08-25-2021 CN Office Visit (PERHTX) CAMERON TERESA ([id number]) 1 M Date Time Provider Department 08/25/21 11:30 AM ALEKSANDRA ROSS [facility] During your visit today, we recorded the [...] or tonsill (more content not included)... Normal [facility] KIM by IFA w/Reflexon 2021 KIM Pattern Negative Normal [facility] Comment on above: Performed By: #### W SR, TSH, CBCDIF, FT4, CMP #### [facility] [employer] [address], [place] [id number] KIM Titer Negative Normal Negative [facility] Comment on above: Result Comment: Norm al range : negative at <1:80 serum dilution. Performed By: #### W SR, TSH, CBCDIF, FT4, CMP #### [facility] [employer] [address] [place], [place] [id number] Nuclear Ab IF (S) [Titer] Negative Normal Negative [facility] Comment on above: Result Comment: Norm al range : negative at <1:80 serum dilution. Approximately 6% of patients with connective tissue diseases with low positive EIA values are negative by IFA. Recommend follow-up with specific antinuclear antibodies if clinically indicated. Test performed using Indirect Fluorescence Immunoassay technology (IFA) using HEp-2 cells. Performed By: #### W SR, TSH, CBCDIF, FT4, CMP #### [facility] [employer] [address] [place], [place] [id number] Anti-Neutro.Cyto.Abon 2021 ANCA Interpretation Equivocal staining seen on the ethanol (indirect immunofluorescence screen) slide but negative results on the follow up confirmatory testing. Anti-nuclear antibody test may be considered. Clinical correlation is required. Normal [facility] Comment on above: Performed By: #### W SR, TSH, CBCDIF, FT4, CMP #### [place] [address] [place] [address] C-ANCA Fluorescence Negative Normal Negative [facility] Comment on above: Performed By: #### W SR, TSH, CBCDIF, FT4, CMP #### [place] [address] Myeloperoxidase Ab <0.2 Normal <1.0 [facility] Comment on above: Performed By: #### W SR, TSH, CBCDIF, FT4, CMP #### [place] [phone] P-ANCA Fluorescence Negative Normal Negative [facility] Comment on above: Performed By: #### W SR, TSH, CBCDIF, FT4, CMP #### [place] [phone] Proteinase-3 Ab <0.2 Normal <1.0 [facility] Comment on above: Performed By: #### W SR, TSH, CBCDIF, FT4, CMP #### [place] [address] Staff Review Reviewed by Ricardo Burdick M.D., Ph.D ([id number]) Normal [facility] Comment on above: Performed By: #### W SR, TSH, CBCDIF, FT4, CMP #### [place] [address] C-Reactive Proteinon 022 CRP [Mass/Vol] mg/L Normal <0.9 [facility] Comment on above: Performed By: #### W SR, TSH, CBCDIF, FT4, CMP #### [facility] [address] [place], [place] [address] CANCA Reflexon 07-28-2021 CANCA Reflex Billed for services performed Normal [facility] Comment on above: Performed By: #### W SR, TSH, CBCDIF, FT4, CMP #### [facility] [address] [place], [place] [address] CNOVon 07-28-2021 CNOV Office Visit (PERHMT) CAMERON TERESA ([id number]) 1 M Date Time Provider Department 07/28/21 10:00 AM ALEKSANDRA ROSS [facility] During your visit today, we recorded the following information about you: Temperature Pulse Respiration Blood pressure 98.5 degrees 90/minute 18/minute 110/62 Weight Height 83.9 kg 1.956 m Aleksandra Ross MD 08/02/2021 9:41 PM Signed INITIAL OUTPATIENT VISIT PEDIATRIC RHEUMATOLOGY SERVICE DATE: 07/28/2021 REFERRING PHYSICIAN: Jaxson Starks [address] [place] [address] PRIMARY CARE PHYSICIAN: Jaxson Starks DO ACCOMPANIED BY: mother. CHIEF COMPLAINT: Patient presents with: Foot Pain : BILATERAL Foot - ongoing for about 1 month Joint Pain : BLATERALToe Derm Problem: Skin Discoloration - toes/foot History was obtained from: mother, patient and EMR Consultation requested by Dr. Bertram Satrks for an opinion regarding toe discoloration and [...] capsule T (more content not included)... Normal [facility] PANCA Reflexon 07-28-2021 PANCA Reflex Billed for services performed Normal [facility] Comment on above: Performed By: #### W SR, TSH, CBCDIF, FT4, CMP #### [facility] [address] [place], [place] [id number] CBC and Differentialon 07-08 Abs Baso <0.03 Normal <0.11 [facility] Comment on above: Performed By: #### W SR, TSH, CBCDIF, FT4, CMP #### [facility] [employer] [address] [place], [place] [address] Abs [place] 0.59 k/uL Normal <0.87 [facility] Comment on above: Performed By: #### W SR, TSH, CBCDIF, FT4, CMP #### [facility] [employer] [address] [place], [place] [address] Abs Neut 2.87 k/uL Normal 1.45-7.50 [facility] Comment on above: Performed By: #### W SR, TSH, CBCDIF, FT4, CMP #### [place] [address] [place] [address] Absolute nRBC <0.01 Normal <0.01 [facility] Comment on above: Performed By: #### W SR, TSH, CBCDIF, FT4, CMP #### [place] [address] [place] [address] Basophils/100 WBC (Bld) 0.4 % Normal [facility] Comment on above: Performed By: #### W SR, TSH, CBCDIF, FT4, CMP #### [place] [phone] DTYPE Auto Diff Normal [facility] Comment on above: Performed By: #### W SR, TSH, CBCDIF, FT4, CMP #### [place] [address] Eosinophils (Bld) [#/Vol] 0.08 10*3/uL Normal <0.46 [facility] Comment on above: Performed By: #### W SR, TSH, CBCDIF, FT4, CMP #### [place] [address] [place] [address] Eosinophils/100 WBC (Bld) 1.5 % Normal [facility] Comment on above: Performed By: #### W SR, TSH, CBCDIF, FT4, CMP #### [place] [address] [place] [address] Erythrocyte distribution width (RBC) [Ratio] 12.9 % Normal 11.5-15.0 [facility] Comment on above: Performed By: #### W SR, TSH, CBCDIF, FT4, CMP #### [place] [address] [place] [address] Hematocrit (Bld) [Volume fraction] 48.3 % Normal 39.0-51.0 [facility] Comment on above: Performed By: #### W SR, TSH, CBCDIF, FT4, CMP #### [place] [address] Hemoglobin (Bld) [Mass/Vol] 16.2 g/dL Normal 13.0-17.0 [facility] Comment on above: Performed By: #### W SR, TSH, CBCDIF, FT4, CMP #### [place] [address] Lymphocytes (Bld) [#/Vol] 1.61 10*3/uL Normal 1.00-4.00 [facility] Comment on above: Performed By: #### W SR, TSH, CBCDIF, FT4, CMP #### [place] [address] Lymphocytes/100 WBC (Bld) 31.1 % Normal [facility] Comment on above: Performed By: #### W SR, TSH, CBCDIF, FT4, CMP #### [place] [address] MCH 28.8 pG Normal 26.0-34.0 [facility] Comment on above: Performed By: #### W SR, TSH, CBCDIF, FT4, CMP #### [place] [address] MCHC (RBC) [Mass/Vol] 33.5 g/dL Normal 30.5-36.0 [facility] Comment on above: Performed By: #### W SR, TSH, CBCDIF, FT4, CMP #### [place] [address] MCV (RBC) [Entitic vol] 85.8 fL Normal 80.0-100.0 [facility] Comment on above: Performed By: #### W SR, TSH, CBCDIF, FT4, CMP #### [facility] [address] [place], [place] [address] Monocytes/100 WBC (Bld) 11.4 % Normal [facility] Comment on above: Performed By: #### W SR, TSH, CBCDIF, FT4, CMP #### [place] [address] [place], [place] [address] Neutrophils/100 WBC (Bld) 55.6 % Normal [facility] Comment on above: Performed By: #### W SR, TSH, CBCDIF, FT4, CMP #### [place] [address] [place], [place] [address] NRBCs 0.0 /100 WBC Normal 0 [facility] Comment on above: Performed By: #### W SR, TSH, CBCDIF, FT4, CMP #### [place] [address] [place], [place] [address] Platelet mean volume (Bld) [Entitic vol] 11.3 fL Normal 9.0-12.7 [facility] Comment on above: Performed By: #### W SR, TSH, CBCDIF, FT4, CMP #### [place] [address] [place], [place] [address] Platelets (Bld) [#/Vol] 197 10*3/uL Normal 150-400 [facility] Comment on above: Performed By: #### W SR, TSH, CBCDIF, FT4, CMP #### [place] [address] [place], [place] [address] RBC (Bld) [#/Vol] 5.63 10*6/uL Normal 4.20-6.00 [facility] Comment on above: Performed By: #### W SR, TSH, CBCDIF, FT4, CMP #### [place] [address] [place], [place] [address] WBC (Bld) [#/Vol] 5.17 10*3/uL Normal 3.70-11.00 [facility] Comment on above: Performed By: #### W SR, TSH, CBCDIF, FT4, CMP #### [facility] [address] [place], [place] [address] CNOVon 07-08-2021 CNOV Office Visit (PEDSMT) CAMERON TERESA ([id number]) 1 M Date Time Provider Department 07/08/21 [...] SALINE) 0.65 % nasal spray Use 1 [place] in the nose as needed. albuterol HFA [...] drinks Go! Be healthy, inside and out! [email or web address] Referring Provider: SELF [200] Allergies As of Date: 07/08/2021 (No Known Allergies) Date Reviewed: 07/08/2021 Reviewed by: Jaxson Starks DO - Fully Assessed Primary Visit Diagnosis:Hypothermi a due to exposure [T68.XXXA] Order(s):CBC + DIFF [SQCBCDIF] Order #: [id number] FUTURE SED RATE WESTERGREN [SQWSR] Order #: [id number] FUTURE T4 FREE/FREE THYROX [SQFT4] Order #: [id number] FUTURE TSH BLD [SQTSH] Order #: [id number] FUTURE COMP METABOLIC PANEL [SQCMP] Order #: [id number] FUTURE Prescriptions as of 07/08/2021 - ibuprofen (MOTRIN IB) 200 mg tablet Take 600 mg by mouth every 6 hours as needed. - s (more content not included)... Normal [facility] Comp Metabolic Panelon 07-08 Albumin [Mass/Vol] 4.9 g/dL High 3.2-4.5 [facility] Comment on above: Performed By: #### W SR, TSH, CBCDIF, FT4, CMP #### [facility] [address] [place], [place] [address] ALP [Catalytic activity/Vol] 122 U/L Normal 55-149 [facility] Comment on above: Result Comment: [...] W SR, TSH, CBCDIF, FT4, CMP #### [facility] [address] [place], [place] [address] ALT [Catalytic activity/Vol] 25 U/L Normal 10-54 [facility] Comment on above: Result Comment: (NOT E) Reference ranges for this patient's age group have not been established. These reference ranges reflect verified or established ranges for the adult population. Interpret these ranges wtih caution using clinical context and additional reference resources. Performed By: #### W SR, TSH, CBCDIF, FT4, CMP #### [facility] [address] [place], [place] [address] Anion gap [Moles/Vol] 12 mmol/L Normal 9-18 [facility] Comment on above: Result Comment: (NOT E) Reference ranges for this patient's age group have not been established. These reference ranges reflect verified or established ranges for the adult population. Interpret these ranges with caution using the clinical context and additional reference resources. Performed By: #### W SR, TSH, CBCDIF, FT4, CMP #### [facility] [address] [place], [place] [address] AST [Catalytic activity/Vol] 25 U/L Normal 14-40 [facility] Comment on above: Result Comment: (NOT E) Reference ranges for this patient's age group have not been established. These reference ranges reflect verified or established ranges for the adult population. Interpret these ranges with caution using clinical context and additional reference resources. Performed By: #### W SR, TSH, CBCDIF, FT4, CMP #### [facility] [address] [place], [place] [address] Bilirubin [Mass/Vol] 0.3 mg/dL Normal 0.2-1.3 [facility] Comment on above: Result Comment: (NOT E) Reference ranges for this patient's age group have not been established. These reference ranges reflect verified or established ranges for the adult population. Interpret these ranges with caution using the clinical context and additional reference resources. Performed By: #### W SR, TSH, CBCDIF, FT4, CMP #### [facility] [address] [place], [place] [address] Calcium [Mass/Vol] 10.2 mg/dL Normal 8.4-10.2 [facility] Comment on above: Performed By: #### W SR, TSH, CBCDIF, FT4, CMP #### [facility] [address] [place], [place] [address] Chloride [Moles/Vol] 105 mmol/L Normal 97-105 [facility] Comment on above: Result Comment: (NOT E) Reference ranges for this patient's age group have not been established. These reference ranges reflect verified or established ranges for the adult population. Interpret these ranges with caution using the clinical context and additional reference resources. Performed By: #### W SR, TSH, CBCDIF, FT4, CMP #### [facility] [employer] [address] [place], [place] [address] CO2 [Moles/Vol] 24 mmol/L Normal 22-30 [facility] Comment on above: Result Comment: (NOT E) Reference ranges for this patient's age group have not been established. These reference ranges reflect verified or established ranges for the adult population. Interpret these ranges with caution using the clinical context and additional reference resources. Performed By: #### W SR, TSH, CBCDIF, FT4, CMP #### [facility] [address] [place], [place] [address] Creatinine [Mass/Vol] 1.19 mg/dL Normal 0.73-1.22 [facility] Comment on above: Result Comment: Refe rence ranges for this patient's age group have not been established. These reference ranges reflect verified or established ranges for the adult population. Interpret these ranges with caution using the clinical context and additional reference resources. Performed By: #### W SR, TSH, CBCDIF, FT4, CMP #### [facility] [employer] [address] [place], [place] [address] eGFR-Ped. Factor 0.35 Normal [facility] Comment on above: Result Comment: eGFR [...] W SR, TSH, CBCDIF, FT4, CMP #### [facility] [employer] [address] [place], [place] [address] Glucose [Mass/Vol] 70 mg/dL Low 74-99 [facility] Comment on above: Result Comment: Refe rence ranges for this patient's age group have not been established. These reference ranges reflect verified or established ranges for the adult population. Interpret these ranges with caution using the clinical context and additional reference resources. The [place] [employer] (ADA) provides guidance for cutoff [...] Standards of Medical Care in Diabetes 2016, [place] [employer]. Diabetes Care. 2016.39(Suppl 1). Performed By: #### W SR, TSH, CBCDIF, FT4, CMP #### [facility] [employer] [address] [place], [place] [address] Potassium [Moles/Vol] 4.9 mmol/L Normal 3.7-5.1 [facility] Comment on above: Result Comment: (NOT E) Reference ranges for this patient's age group have not been established. These reference ranges reflect verified or established ranges for the adult population. Interpret these ranges with caution using the clinical context and additional reference resources. Performed By: #### W SR, TSH, CBCDIF, FT4, CMP #### [facility] [employer] [address] [place], [place] [address] Protein [Mass/Vol] 7.3 g/dL Normal 6.3-8.0 [facility] Comment on [...] g/dL 15-17 years 6.4-8.3 g/dL Reference: Abhi MAXWELL, Ameya I, Teresita M, et al. [place] [employer] Initiative on Reference Interval Database(CALIPER): pediatric reference intervals for an integrated clinical chemistry and immunoassay analyzer, Gomez MARKETING OPERATIONS SPECIALIST [id number]. Clin Biochem 2009;42:885-891. Performed By: #### W SR, TSH, CBCDIF, FT4, CMP #### [facility] [employer] [address] [place], [place] [address] Sodium [Moles/Vol] 141 mmol/L Normal 136-144 [facility] Comment on above: Result Comment: (NOT E) Reference ranges for this patient's age group have not been established. These reference ranges reflect verified or established ranges for the adult population. Interpret these ranges with caution using the clinical context and additional reference resources. Performed By: #### W SR, TSH, CBCDIF, FT4, CMP #### [facility] [address] [place], [place] [address] Urea nitrogen [Mass/Vol] 15 mg/dL Normal 5-18 [facility] Comment on above: Performed By: #### W SR, TSH, CBCDIF, FT4, CMP #### [place] [address] [place], [place] [address] Free T4on 07-08-2021 Free T4 [Mass/Vol] 1.4 ng/dL Normal 0.8-2.8 [facility] Comment on above: Performed By: #### W SR, TSH, CBCDIF, FT4, CMP #### [place] [address] [place] [address] Sed Rate Westergrenon 2021 Sed Rate Westergren 2 mm/hr Normal 0-15 [facility] Comment on above: Performed By: #### W SR, TSH, CBCDIF, FT4, CMP #### [place] [id number] TSHon 07-08-2021 TSH Qn 2.020 m[IU]/L Normal 0.510-4.300 [facility] Comment on above: Result Comment: Refe rence ranges were not locally established for this patient's age group. The normal values are based on the following source: Farrah WPhil V. Reference Ranges for Adults and Children: Pre-analytical Considerations. [facility] Performed By: #### W SR, TSH, CBCDIF, FT4, CMP #### [place] [address] [place], [place] [address] ED NOTEon 05-16-2021 ED NOTE HNO ID: [id number] Author: Zara Enciso RN Service: ? Author Type: Registered Nurse Type: ED Notes Filed: 05/16/2021 8:50 PM Note Text: Spacer teaching done and spacer provided Normal [facility] ED NOTE HNO ID: [id number] Author: Zara Enciso RN Service: ? Author Type: Registered Nurse Type: ED Notes Filed: 05/16/2021 8:32 PM Note Text: No spacers available in ED. RT notified and will bring from store room [facility] ED NOTE HNO ID: [id number] Author: Zara Enciso RN Service: ? Author Type: Registered Nurse Type: ED Notes Filed: 05/16/2021 6:23 PM Note Text: Strep swab obtained. Mom states covid swab done yesterday via [facility] ED NOTE HNO ID: [id number] Author: Carter Cadena RN Service: ? Author Type: Registered Nurse Type: ED Notes Filed: 05/16/2021 5:17 PM Note Text: Pt bib mother for cough sore throat and chest discomfort x 5 days Seen by pmd yesterday [facility] ED PROV NOTEon 05-16-2021 ED PROV NOTE HNO ID: [id number] Author: Yvette Marion DO Service: Emergency Medicine [...] nursing note reviewed. Exam conducted with a technology lab teacher present. Constitutional: General: He is not in [...] Motor: No weak (more content not included)... [facility] XR CHEST 1V FRONTAL PORTon 1 07-16-2020 [...] report reviewed and electronically signed by: TERRANCE YAALA MD on May 16 2021 7:32PM EST [id number] [facility] CNOVon 05-15-2021 CNOV Office Visit (PEDSMT) CAMERON TERESA ([id number]) 1 M Date Time Provider Department 05/15/21 12:10 PM JAXSON STARKS During your visit today, [...] drinks Go! Be healthy, inside and out! [email or web address] Referring Provider: SELF [200] Allergies As of Date: 05/15/2021 (No Known Allergies) Date Reviewed: 05/15/2021 Reviewed by: Jaxson Starks DO - Fully Assessed Reason for Visit: Cough [28] Cmt: x 4 days Headaches [3461] Primary Visit Diagnosis:Headache, unspecified headache type [R51.9] Order(s):COVID, FLU A/B + RSV, ROUTINE [SQCVFLRS] Order #: [id number] Prescriptions as of 05/15/2021 - hydrOXYzine pamoate [...] drinks Go! Be healthy, inside and out! [email or web address] Disposition: Return if symptoms worsen or fail to improve. Follow-up and Disposition History for Encounter Date Provider Department Center (more content not included)... Normal [facility] Cepheid Bill only (EXCFR)on 05-15-2021 Cepheid Bill only (EXCFR) Billed for services performed Normal [facility] Comment on above: Performed By: #### C FRCEP, EXCFR #### [facility] [employer] [address] [place] [address] EXCOVD, Flu A/B, RSV (On int erfaces 1102,1120)on 05-15-2021 Influenza A PCR Negative Normal [facility] Comment on above: Result Comment: This test has been authorized by FDA under an Emergency Use Authorization (EUA). Performed By: #### C FRCEP, EXCFR #### [facility] [employer] [address] [place] [address] Influenza B PCR Negative Normal [facility] Comment on above: Result Comment: This test has been authorized by FDA under an Emergency Use Authorization (EUA). Performed By: #### C FRCEP, EXCFR #### [facility] [address] [place] [address] RSV PCR Negative Normal [facility] Comment on above: Result Comment: This test has been authorized by FDA under an Emergency Use Authorization (EUA). Performed By: #### C FRCEP, EXCFR #### [place] [phone] SARS-CoV-2 (COVID-19) RNA JERRELL+probe Ql (Unsp spec) UPPER RESPIRATORY TRACT SWAB Normal [facility] Comment on above: Performed By: #### C FRCEP, EXCFR #### [place] [phone] SARS-CoV-2 (COVID-19) RNA JERRELL+probe Ql (Unsp spec) Negative for COVID19 (SARS CoV2) by RT-PCR or equivalent method. Normal Negative for COVID19 (SARS CoV2) by RT-PCR or equivalent method. [facility] Comment on above: Result Comment: This test has been authorized by FDA under an Emergency Use Authorization (EUA). Test performed by [facility], [facility] [place], [address] [place] [address]. Performed By: #### C FRCEP, EXCFR #### [place] [address] GC/CHLAM AMPLIFICATION URINE [CCL]on 10-30-2020 Chlamydia Amplif, Ur Negative Normal [facility] Comment on above: Result Comment: [place] [address] Benito Uribe III, M.D. [id number] Performed By: #### 2 57301 #### [facility],[address] [place] [address] UGCAMP Negative Normal [facility] Comment on above: Performed By: #### 2 61200 #### [facility],[address] [place] [address] GC/Chlamydia Amp, Uron 10-30 Chlamydia Amplif, Ur CLNEG Normal [facility] Comment on above: Performed By: #### U GCCT #### [facility] [address] [address] GC Amplification, Ur NGNEG Normal [facility] Comment on above: Performed By: #### U GCCT #### [facility] [address] [place] [address] CBC + DIFFon 10-24-2020 Baso # 0.00 x10EE3/UL Normal 0.00 - 0.[address] [facility] Comment on above: Performed By: #### 2 96950 #### [facility],[address] [place] [address] Basophils/100 WBC (Bld) 0.8 % Normal 0.0 - 2.0 [facility] Comment on above: Performed By: #### 2 41692 #### [facility],[address] [place] [address] CBC + DIFF Normal [facility] Comment on above: Result Comment: CBC- COMPLETE BLOOD COUNT Performed By: #### 2 83696 #### [facility],[address] [place] [address] EO # 0.10 x10EE3/UL Normal 0.00 - 0.[address] [facility] Comment on above: Performed By: #### 2 05777 #### [facility],[address] [place] [address] Eosinophils/100 WBC (Bld) 1.9 % Normal 0.0 - 7.0 [facility] Comment on above: Performed By: #### 2 84181 #### [facility],[address] [place] [address] Erythrocyte distribution width (RBC) [Ratio] 14.3 % Normal 12.0 - 15.6 [facility] Comment on above: Performed By: #### 2 22294 #### [facility],[address] [place] [address] Hematocrit (Bld) [Volume fraction] 43.5 % Normal 40.0 - 52.0 [facility] Comment on above: Performed By: #### 2 18388 #### [facility],[address] [place] [address] Hemoglobin (Bld) [Mass/Vol] 14.9 g/dL Normal 13.0 - 17.5 [facility] Comment on above: Performed By: #### 2 05358 #### [facility],[address] [place] [address] Lymph # 1.30 x10EE3/UL Normal 0.80 - 2.[address] [facility] Comment on above: Performed By: #### 2 46276 #### [facility],[address] [place] [address] Lymphocytes/100 WBC (Bld) 30.7 % Normal 20.0 - 45.0 [facility] Comment on above: Performed By: #### 2 25524 #### [facility],[address] [place] [address] MANUAL DIFF N/A Normal [facility] Comment on above: Performed By: #### 2 08210 #### [facility],[address] [place], [place] [address] MCH (RBC) [Entitic mass] 29 pg Normal 27 - 33 [facility] Comment on above: Performed By: #### 2 02277 #### [facility],[address] [place], [place] [id number] MCHC 34 X10 3 Normal 32 - 36 [facility] Comment on above: Performed By: #### 2 55770 #### [facility],[address] [place] [address] MCV (RBC) [Entitic vol] 84 fL Normal 81 - 98 [facility] Comment on above: Performed By: #### 2 31811 #### [facility],[address] [place] [address] [place] # 0.40 x10EE3/UL Normal 0.20 - 1.[address] [facility] Comment on above: Performed By: #### 2 54281 #### [facility],[address] [place] [address] MONOS % 8.8 % Normal 0.0 - 10.0 [facility] Comment on above: Performed By: #### 2 68037 #### [facility],[address] [place] [address] Morphology Daniel (Bld) [Interp] N/A Normal [facility] Comment on above: Result Comment: {CD] Performed By: #### 2 43343 #### [facility],[address] [place] [address] Neut # 2.50 x10EE3/UL Normal 1.50 - 7.[address] [facility] Comment on above: Performed By: #### 2 27086 #### [facility],[address] [place] [address] Neutrophils/100 WBC (Bld) 57.8 % Normal 46.0 - 76.0 [facility] Comment on above: Performed By: #### 2 99038 #### [facility],[address] [place] [address] PLATELET 142 x10EE3/UL Low 150 - 450 [facility] Comment on above: Performed By: #### 2 63556 #### [facility],[address] [place] [address] Platelet mean volume (Bld) [Entitic vol] 9.7 fL Normal 6.4 - 10.5 [facility] Comment on above: Result Comment: AUTO MATED DIFFERENTIAL Performed By: #### 2 92317 #### [facility],[address] [place] [address] RBC 5.16 x 10EE6/UL Normal 4.50 - 6.00 [facility] Comment on above: Performed By: #### 2 80705 #### [facility],[address] [place] [address] WBC 4.3 x 10EE3/UL Low 4.5 - 10.8 [facility] Comment on above: Performed By: #### 2 36123 #### [facility],[address] [place] [address] CMP with eGFRon 10-24-2020 AGE 15 years Normal [facility] Comment on above: Performed By: #### 2 45381 #### [facility],[address] [place] [address] Albumin [Mass/Vol] 4.0 g/dL Normal 3.4 - 5.0 [facility] [place] [facility] Comment on above: Performed By: #### 2 89574 #### [facility],[address] [place] [address] Albumin/Globulin [Mass ratio] 1.4 {ratio} Normal 0.9 - 1.6 [facility] Comment on above: Performed By: #### 2 72865 #### [facility],[address] [place] [address] ALK PHOS 113 U/L Normal 46 - 116 [facility] Comment on above: Performed By: #### 2 52004 #### [facility],[address] [place] [address] ALT [Catalytic activity/Vol] 23 U/L Normal 16 - 63 [facility] Comment on above: Performed By: #### 2 12752 #### [facility],[address] [place] [address] Anion gap [Moles/Vol] 11 mmol/L Normal 10 - 20 [facility] Comment on above: Performed By: #### 2 61880 #### [facility],[address] [place] [address] AST [Catalytic activity/Vol] 21 U/L Normal 15 - 37 [facility] Comment on above: Performed By: #### 2 62174 #### [facility],[address] [place] [address] B/C RATIO 17 ratio Normal 0 - 30 [facility] Comment on above: Performed By: #### 2 05552 #### [facility],[address] [place] [address] Bilirubin [Mass/Vol] 0.5 mg/dL Normal 0.2 - 1.0 [facility] Comment on above: Performed By: #### 2 60117 #### [facility],[address] [place] [address] Calcium [Mass/Vol] 8.9 mg/dL Normal 8.5 - 10.1 [facility] [place] [facility] Comment on above: Performed By: #### 2 51521 #### [facility],[address] [place] [address] Chloride [Moles/Vol] 104 mmol/L Normal 98 - 107 [facility] Comment on above: Performed By: #### 2 25286 #### [facility],[address] [place] [address] CMP with eGFR Normal [facility] Comment on above: Result Comment: COMP REHENSIVE METABOLIC PANEL Performed By: #### 2 84486 #### [facility],[address] [place] [address] CO2 [Moles/Vol] 31.3 mmol/L Normal 21.0 - 32.0 [facility] Comment on above: Performed By: #### 2 60800 #### [facility],[address] [place] [address] Creatinine [Mass/Vol] 1.1 mg/dL Normal 0.7 - 1.3 [facility] Comment on above: Performed By: #### 2 59649 #### [facility],[address] [place] [address] GFR/1.73 sq M.predicted among non-blacks MDRD (S/P/Bld) [Vol rate/Area] mL/min/{1.73_m2} Normal 60 - 999 [facility] Comment on above: Performed By: #### 2 82464 #### [facility],[address] [place] [address] Result Comment: ACCO RDING TO THE NATIONAL KIDNEY DISEASE EDUCATION PROGRAM(NKDE), A NORMAL eGFR IS A VALUE GREATER THAN OR EQUAL TO 60 ML/MIN/1.73 SQ METERS. CHRONIC KIDNEY DISEASE: <60mL/MIN/1.73 SQ METERS KIDNEY FAILURE: <15mL/MIN/1.73 SQ METERS THIS TEST SHOULD ONLY BE USED FOR PATIENTS 18 YEARS OF AGE AND OLDER. Globulin (S) [Mass/Vol] 2.8 g/dL Normal 1.5 - 3.8 [facility] Comment on above: Performed By: #### 2 23270 #### [facility],[address] [place] [address] Glucose [Mass/Vol] 85 mg/dL Normal 74 - 106 [facility] [place] [facility] Comment on above: Performed By: #### 2 79860 #### [address] [address] Potassium [Moles/Vol] 4.0 mmol/L Normal 3.5 - 5.1 [facility] Comment on above: Performed By: #### 2 53823 #### [facility],[address] [place] [address] Protein [Mass/Vol] 6.8 g/dL Normal 6.4 - 8.2 [facility] [place] [facility] Comment on above: Performed By: #### 2 12198 #### [address] [address] Sodium [Moles/Vol] 142 mmol/L Normal 136 - 145 [facility] [place] [facility] Comment on above: Performed By: #### 2 42426 #### [facility],[address] [place] [address] Urea nitrogen [Mass/Vol] 19 mg/dL High 7 - 18 [facility] Comment on above: Performed By: #### 2 22780 #### [facility],[address] [place] [address] DRUG SCREEN URINE MEDICon AMPHETAMINES Negative [facility] Comment on above: Performed By: #### 2 82714 #### [facility],[address] [place] [address] B-DIAZEPINES Negative [facility] Comment on above: Performed By: #### 2 49652 #### [facility],[address] [place] [address] BARBITURATES Negative [facility] Comment on above: Performed By: #### 2 60735 #### [facility],[address] [place] [address] COCAINE Negative [facility] Comment on above: Performed By: #### 2 77045 #### [facility],[address] [place] [address] DRUG SCREEN URINE MEDIC Normal [facility] Comment on above: Result Comment: DRUG SCREEN - URINE Performed By: #### 2 92655 #### [facility],[address] [place] [address] METHADONE Negative [facility] Comment on above: Performed By: #### 2 19476 #### [facility],[address] [place] [address] OPIATES Negative [facility] Comment on above: Performed By: #### 2 95151 #### [facility],[address] [place] [address] PCP Negative [facility] Comment on above: Performed By: #### 2 [id number] #### [facility],[address] [place] [address]63 THC Negative [facility] Comment on above: Result Comment: MOISÉS ENTS RECEIVING PROTON PUMP INHIBITORS MAY DEMONSTRATE FALSE POSITIVE THC/CANNABINOID RESULTS. AN ALTERNATIVE CONFIRMATORY METHOD SHOULD BE CONSIDERED TO VERIFY POSITIVE RESULTS. Performed By: #### 2 [id number] #### [facility],[address] [place] [address] TSHon 10-24-2020 TSH Qn 1.62 m[IU]/L Normal 0.51 - 4.13 [facility] Comment on above: Performed By: #### 2 [id number] #### [facility],[address] [place] [address] CNPNon 10-21-2020 CNPN Telephone (PEDSMT) CAMERON TERESA ([id number]) 1 M Date Time Provider Department 10/21/20 JAXSON STARKS PEDSMT During your visit today, [...] by RIGOBERTO BROWN LPN on 10/21/20 Normal [facility] ACUTE TOXICOLOGY PANEL, LACY Cano 09-24-2020 Acetaminophen [Mass/Vol] <10.0 Normal 5.0 - 20.0 [facility] Comment on above: Performed By: #### D RUBL #### [address] [address] Ethanol [Mass/Vol] mg/dL Normal [facility] Comment on above: Result Comment: FOR MEDICAL USE ONLY. . REF VALUES <10 Performed By: #### D RUBL #### [address] [address] SALICYLATE <3 Normal 4 - 20 [facility] Comment on above: Performed By: #### D RUBL #### [address] [address] CBC AND DIFFERENTIALon 09-24 % AUTOMATED IMMATURE GRAN 0.1 % Normal 0.0 - 1.0 [facility] Comment on above: Result Comment: Jessica ture Granulocyte Count (IG) includes promyelocytes, myelocytes and metamyelocytes but does not include bands. Percent differential counts (%) should be interpreted in the context of the absolute cell counts (cells/L). Performed By: #### C BCDF #### [address] [address] Basophils (Bld) [#/Vol] 0.03 10*3/uL Normal 0.00 - 0.1 0 [facility] Comment on above: Performed By: #### C BCDF #### [address] [address] Basophils/100 WBC (Bld) 0.4 % Normal 0.0 - 1.0 [facility] Comment on above: Performed By: #### C BCDF #### [address] [address] Eosinophils (Bld) [#/Vol] 0.04 10*3/uL Normal 0.00 - 0.70 [facility] Comment on above: Performed By: #### C BCDF #### [address] [address] Eosinophils/100 WBC (Bld) 0.5 % Normal 0.0 - 5.0 [facility] Comment on above: Performed By: #### C BCDF #### [address] [address] Erythrocyte distribution width (RBC) [Ratio] 13.3 % Normal 11.5 - 14.5 [facility] Comment on above: Performed By: #### C BCDF #### [address] [address] Hematocrit (Bld) [Volume fraction] 47.2 % Normal 37.0 - 49.0 [facility] Comment on above: Performed By: #### C BCDF #### [address] [address] Hemoglobin (Bld) [Mass/Vol] 15.7 g/dL Normal 13.0 - 16.0 [facility] Comment on above: Performed By: #### C BCDF #### [address] [address] Lymphocytes (Bld) [#/Vol] 1.92 10*3/uL Normal 1.80 - 4.80 [facility] Comment on above: Performed By: #### C BCDF #### [address] [address] Lymphocytes/100 WBC (Bld) 23.6 % Normal 28.0 - 48.0 [facility] Comment on above: Performed By: #### C BCDF #### [address] [address] MCHC (RBC) [Mass/Vol] 33.3 g/dL Normal 31.0 - 37.0 [facility] Comment on above: Performed By: #### C BCDF #### [address] [address] MCV (RBC) [Entitic vol] 87 fL Normal 78 - 102 [facility] Comment on above: Performed By: #### C BCDF #### [address] [address] Monocytes (Bld) [#/Vol] 0.61 10*3/uL Normal 0.10 - 1.0 0 [facility] Comment on above: Performed By: #### C BCDF #### [address] [address] Monocytes/100 WBC (Bld) 7.5 % Normal 3.0 - 9.0 [facility] Comment on above: Performed By: #### C BCDF #### [address] [address] Neutrophils (Bld) [#/Vol] 5.52 10*3/uL Normal 1.20 - 7.70 [facility] Comment on above: Performed By: #### C BCDF #### [address] [address] Neutrophils/100 WBC (Bld) 67.9 % Normal 33.0 - 69.0 [facility] Comment on above: Performed By: #### C BCDF #### [address] [address] Platelets (Bld) [#/Vol] 184 10*3/uL Normal 150 - 400 [facility] Comment on above: Performed By: #### C BCDF #### [address] [address] RBC (Bld) [#/Vol] 5.41 x10E12/L High 4.50 - 5.30 [facility] Comment on above: Performed By: #### C BCDF #### [address] [address] WBC (Bld) [#/Vol] 8.1 10*3/uL Normal 4.5 - 13.5 [facility] Comment on above: Performed By: #### C BCDF #### [address] [address] COMPREHENSIVE PANELon 2020 Albumin [Mass/Vol] 4.7 g/dL Normal 3.4 - 5.0 [facility] Comment on above: Performed By: #### C MP #### [address] [address] ALP [Catalytic activity/Vol] 132 U/L Normal 33 - 139 [facility] Comment on above: Performed By: #### C MP #### [address] [address] ALT [Catalytic activity/Vol] 18 U/L Normal 3 - 28 [facility] Comment on above: Result Comment: Moisés ents treated with Sulfasalazine may generate falsely decreased results for ALT. Performed By: #### C MP #### [address] [address] Anion gap [Moles/Vol] 11 mmol/L Normal 10 - 30 [facility] Comment on above: Performed By: #### C MP #### [address] [address] AST [Catalytic activity/Vol] 26 U/L Normal 9 - 32 [facility] Comment on above: Performed By: #### C MP #### [address] [address] Bilirubin [Mass/Vol] 0.4 mg/dL Normal 0.0 - 0.9 [facility] Comment on above: Performed By: #### C MP #### [address] [address] Calcium [Mass/Vol] 9.7 mg/dL Normal 8.5 - 10.7 [facility] Comment on above: Performed By: #### C MP #### [address] [address] Chloride [Moles/Vol] 106 mmol/L Normal 98 - 107 [facility] Comment on above: Performed By: #### C MP #### [address] [address] Creatinine [Mass/Vol] 1.01 mg/dL Normal 0.60 - 1.10 [facility] Comment on above: Performed By: #### C MP #### [address] [address] Glucose [Mass/Vol] 118 mg/dL High 74 - 99 [facility] Comment on above: Performed By: #### C MP #### [address] [address] HCO3 (Bld) [Moles/Vol] 26 mmol/L Normal 18 - 27 [facility] Comment on above: Performed By: #### C MP #### [address] [address] Potassium [Moles/Vol] 3.9 mmol/L Normal 3.5 - 5.3 [facility] Comment on above: Performed By: #### C MP #### [address] [address] Protein [Mass/Vol] 7.2 g/dL Normal 6.2 - 7.7 [facility] Comment on above: Performed By: #### C MP #### [address] [address] Sodium [Moles/Vol] 139 mmol/L Normal 136 - 145 [facility] Comment on above: Performed By: #### C MP #### [address] [address] Urea nitrogen [Mass/Vol] 15 mg/dL Normal 6 - 23 [facility] Comment on above: Performed By: #### C MP #### [address] [address] DRUG SCREEN,URINEon 09-25-19 21 AMPHETAMINE SCREEN,U Negative Normal NEGATIVE [facility] Comment on above: Result Comment: CUTO FF LEVEL: 500 NG/ML Cross-reactivity has been reported with high concentrations of the following drugs: buproprion, chloroquine, chlorpromazine, ephedrine, mephentermine, fenfluramine, phentermine, phenylpropanolamine, pseudoephedrine, and propranolol. Performed By: #### D RUG3 #### [address] [address] BARBITURATES SCREEN,U Negative Normal NEGATIVE [facility] Comment on above: Result Comment: CUTO FF LEVEL: 200 NG/ML Performed By: #### D RUG3 #### [address] [address] BENZODIAZEPINES SCREEN,U Negative Normal NEGATIVE [facility] Comment on above: Result Comment: CUTO FF LEVEL: 200 NG/ML Performed By: #### D RUG3 #### [address] [address] CANNABINOIDS SCREEN,U Negative Normal NEGATIVE [facility] Comment on above: Result Comment: CUTO FF LEVEL: 50 NG/ML Performed By: #### D RUG3 #### [address] [address] COCAINE METABOLITE SCREEN,U Negative Normal NEGATIVE [facility] Comment on above: Result Comment: CUTO FF LEVEL: 150 NG/ML Performed By: #### D RUG3 #### [address] [address] DRUG SCREEN COMMENT SEE BELOW Normal [facility] Comment on above: Result Comment: Drug screen results are presumptive and should not be used to assess compliance with prescribed medication. Contact the performing [facility] laboratory to add-on definitive [...] directors. Performed By: #### D RUG3 #### [address] [address] FENTANYL SCREEN,URINE Negative Normal NEGATIVE [facility] Comment on above: Result Comment: CUTO FF LEVEL: 1 NG/ML Performed By: #### D RUG3 #### [address] [address] METHADONE SCREEN,U Negative Normal NEGATIVE [facility] Comment on above: Result Comment: CUTO FF LEVEL: 150 NG/ML The metabolite C-bvdjm-sqbxbpeuiiuzuy (LAAM) is not detected by this method in concentrations that would be found in the urine of patients on LAAM therapy. Performed By: #### D RUG3 #### [address] [address] OPIATES SCREEN,U Negative Normal NEGATIVE [facility] Comment on above: Result Comment: CUTO FF LEVEL: 300 NG/ML The opiate screen does not detect fentanyl, meperidine, or tramadol. Oxycodone is not consistently detected (refer to Oxycodone Screen, Urine result). Performed By: #### D RUG3 #### [address] [address] OXYCODONE SCREEN,U Negative Normal NEGATIVE [facility] Comment on above: Result Comment: CUTO FF LEVEL: 100 NG/ML This test will accurately detect both oxycodone and oxymorphone. Performed By: #### D RUG3 #### [address] [address] PCP SCREEN,U Negative Normal NEGATIVE [facility] Comment on above: Result Comment: CUTO FF LEVEL: 25 NG/ML Cross-reactivity has been reported with dextromethorphan. Performed By: #### D RUG3 #### [address] [address] Provider Note - ED v2on 08-27 Provider Note - ED v2 Provider Note - ED v2: Chart Review: ED NOTES ED NOTES: Chief complaint: Anxiety depression history of suicidal issues History of present illness: 15-year-old male, polysubstance abuse, anxiety, PTSD and depression. Has been in a facility called [facility] which apparently is for dual diagnosis, but [...] that would warrant hospitalization or pink slipping. Shaziamom and mom are both in the room. They are comfortable with the plan of taking the patient back home. He can indeed go back to [place] just not tonight. They would need to go through the intake process in the morning. Shaziamother also has other applications out to places such as [place] for the patient and are waiting to hear back from them. Patient is stable. Mother and stepmother feel that the child is stable at this point time to be in their custody and they will take the patient home at this time. I did attempt to contact patient's physician at the [facility] facility Dr. Laureano with no success. Family [...] Last Updated: 24-Sep-2020 00:45 by MANDEEP COOK) [facility] Risk Screen - PEDS Emergency on 09-24-2020 Risk Screen - PEDS Emergency Preferred Language: Preferred Language: Preferred Language for Discussing Health Care (patient/designee)En glish Advanced Directives: Advance Directive/DNRnot applicable Learning Assessment (Patient): Patient is Able to be Assessed for Learningyes Educational [id number] grade Factors Influence Readiness to Learnnone, ready to learn Factors Impact Ability to Learnnone Devices/Methods Used to Communicatenone Learning Preferencesskill demonstration, verbal instruction, written material Cultural Considerationsnone Developmental Considerationsnone Holiness Considerationsnone Other Learnersfamily Learning Assessment (Other Learner): Other learner availableyes Other Learner is Able to be Assessed for Learningyes Learnerfamily Factors Influencing Readiness to Learnnone, ready to learn Factors that Impact Ability to Learnnone Devices/Methods Used to Communicatenone Learning Preferenceswritten material Cultural Considerationsnone Developmental Considerationsnone Holiness Considerationsnone Family Violence PEDS: Family Violence Screen [...] older) Last Updated: 24-Sep-2020 01:06 by America Horn (RN) Normal [facility] Triage - ED Pedson Triage - [...] no Acuity Level: 2 Peds Complaint Code ([facility] ONLY): N/A [facility] The patient and/or guardian verbally acknowledges placement [...] Alert and appropriate for age. RISK SCREEN [place] Suicide Risk Screen Risk Screen Not Applicable/Able [...] 24-Sep-2020 01:01 by America Horn (AGUILA) Normal [facility] Drugon 09-23-2020 Ethanol [Mass/Vol] Alcohol <0.010 Performed at [place] [id number] [facility] [address] GM/DL (0-0.010 GM/DL) 0 - 0.010 GM/DL [facility] Hematologyon 09-23-2020 Basophils (Bld) [#/Vol] Abs Baso 0.04 K/ UL (0.00-0.22 K/UL) 0.00 - 0.22 K/UL S Basophils/100 WBC (Bld) Basophil 0.30 % (0-1 %) 0 - 1 % S Eosinophils (Bld) [#/Vol] Abs Eos 0.01 K/UL (0-0.45 K/UL) 0 - 0.45 K/UL S Eosinophils/100 WBC (Bld) Eosinophil 0.10 % (0-3 %) 0 - 3 % S Hematocrit (Bld) [Volume fraction] HCT 47.3 % [...] 96 [place] S Monocytes (Bld) [#/Vol] Abs [place] 0.87 K/ UL H (0-0.8 K/UL) High 0 - 0.8 K/UL [facility] Monocytes/100 WBC (Bld) Monocyte 7.20 % (0-8 %) 0 - 8 % [facility] Neutrophils (Bld) [#/Vol] Abs.Neut.Calculated 8.88 K/UL (Reference Range: not available) Performed at [facility] [address] [place] [address] [facility] Neutrophils (Bld) [#/Vol] Abs Neut 8.88 K/UL H (1.5-8.0 K/UL) High 1.5 - 8.0 K/UL [facility] Platelets (Bld) [#/Vol] PLT 186 K/UL (150-450 K/UL) 150 - 450 K/UL [facility] RBC (Bld) [#/Vol] RBC 5.30 M/UL H (4.5-5.1 M/UL) High 4.5 - 5.1 M/UL [facility] WBC (Bld) [#/Vol] WBC 12.1 K/UL (4.5-13.0 K/UL) 4.5 - 13.0 K/UL [facility] Metabolic Panelon 03-30-2021 Albumin [Mass/Vol] Albumin 4.6 GM/DL (3.5-5.0 GM/DL) 3.5 - 5.0 GM/DL S ALT [Catalytic activity/Vol] ALT 17 U/L (5-40 U/L) Performed at [address] [address] 5 - 40 U/L S Anion gap [Moles/Vol] Anion Gap 14 MMOL/ L (0-19 MMOL/L) 0 - 19 MMOL/L [facility] AST [Catalytic activity/Vol] AST 26 U/L (5-40 [...] (65-99 MG/DL) High 65 - 99 MG/DL [facility] Potassium [Moles/Vol] Potassium R 3.9 MMOL/L (3.4-5.1 MMOL/L) 3.4 - 5.1 MMOL/L S Protein [Mass/Vol] Total Protein 7.3 G/DL (5.9-7.9 G/DL) 5.9 - 7.9 G/DL [facility] Sodium [Moles/Vol] Sodium 136 MMOL/L (133-145 MMOL/L) 133 - 145 MMOL/L [facility] Urea nitrogen [Mass/Vol] BUN 20 MG/DL (8-25 MG/DL) 8 - 25 MG/DL [facility] Urea nitrogen/Creatinine [Mass ratio] BUN Creatinine Ratio 18.2 RATIO (8-21 RATIO) 8 - 21 RATIO [facility] Otheron 09-23-2020 FLUAV RNA JERRELL+probe Ql (Nph) FLU A by PCR NEGATIVE (Reference Range: not available) [facility] FLUBV RNA JERRELL+probe Ql (Nph) FLU B by PCR NEGATIVE (Reference Range: not available) [facility] SARS-CoV-2 by PCR NEGATIVE (NEG ) [facility] Albumin/Globulin [Mass ratio] Albumin Globulin Ratio 1.7 RATIO (1.5-3.0 RATIO) 1.5 - 3.0 RATIO [facility] ALP (Bld) [Catalytic activity/Vol] Alk Phosphatase 137 U/L H (35-125 U/L) High 35 - 125 U/L [facility] Amphetamines Screen method >1000 ng/mL Ql (U) Urine Amphetamine NEGATIVE (Reference Range: not available) [facility] Bacteria Auto Ql (U) Bacteria NEGATIVE (Reference Range: not available) [facility] Barbiturates Screen method >300 ng/mL Ql (U) Urine Barbiturate NEGATIVE (Reference Range: not available) [facility] Benzodiazepines Screen method >300 ng/mL Ql (U) Urine Benzodiazepine NEGATIVE (Reference Range: not available) [facility] Benzoylecgonine Screen method >300 ng/mL Ql (U) Urine Cocaine Metabolites NEGATIVE (Reference Range: not available) [facility] Bilirubin Ql (U) Bili NEGATIVE (NEG ) [facility] Cannabinoids Screen method >50 ng/mL Ql (U) THC/Cannabinoids NEGATIVE (Reference Range: not available) [facility] Differential cell count method Nom (Bld) Diff Type AUTO DIFF (Reference Range: not available) [facility] Drug screen comment (U) [Interp] Urine Drug [...] 200 ng/ml OXYCODONE 100 ng/ml Performed at [address] [address] (Reference Range: not available) [facility] Epithelial cells.squamous Auto Ql (U) Urine squamous epi NONE SEEN /HPF (Reference Range: not available) [facility] Erythrocyte distribution width (RBC) [Entitic vol] RDW SD 43.1 FL (37.0-54.0 FL) 37.0 - 54.0 FL [facility] Erythrocyte distribution width (RBC) [Ratio] RDW CV 13.1 % (11.7-15.0 %) 11.7 - 15.0 % [facility] Globulin (S) [Mass/Vol] Globulin 2.7 G/D L (1.9-3.7 G/DL) 1.9 - 3.7 G/DL [employer] Glucose Auto test strip (U) [Mass/Vol] Gluc NEGATIVE mg/dL (NEG mg/dL) [facility] Hemoglobin Auto test strip Ql (U) RBC 1 /HPF (0-3 /HPF) 0 - 3 /HPF [employer] Hemoglobin Ql (U) Blood NEGATIVE (NEG ) [facility] Hyaline casts Auto Ql (U) Urine hyaline cast NONE SEEN /LPF (Reference Range: not available) [facility] Immature granulocytes (Bld) [#/Vol] Abs Imm Neut 0.03 K/UL (0.0-0.1 K/UL) 0.0 - 0.1 K/UL [employer] Ketones Auto test strip Ql (U) Urine Ketone SMALL A (NEG ) Abnormal [facility] Leukocyte esterase Auto test strip Ql (U) Leuk NEGATIVE (NEG ) [facility] MCHC (RBC) [Mass/Vol] MCHC 31.9 % (31-37 %) 31 - 37 % [facility] Neutrophils.immature/10 0 WBC (Bld) Immature Neut % 0.20 % (0.0-1.0 %) 0.0 - 1.0 % [facility] Nitrite Auto test strip Ql (U) Nit NEGATIVE (NEG ) [facility] Nucleated RBC/100 WBC (Bld) [Ratio] NRBCs 0 /100 WBC (0 /100 WBC) [facility] Opiates Screen method >300 ng/mL Ql (U) Urine Opiate NEGATIVE (Reference Range: not available) [facility] Oxycodone Ql (U) Urine Oxycodone NEGATIVE (Reference Range: not available) [facility] pH (U) Urine pH 6.0 (4.6-8.0 ) 4.6 - 8.0 [facility] Phencyclidine Screen method >25 ng/mL Ql (U) Urine PCP NEGATIVE (Reference Range: not available) [facility] Platelet mean volume (Bld) [Entitic vol] MPV 11.0 CU (7.0-12.6 CU) 7.0 - 12.6 CU [facility] Segmented neutrophils/100 WBC (Bld) Granulocyte 73.60 % (34-82 %) 34 - 82 % [facility] Urobilinogen Auto test strip Ql (U) Uro NORMAL MG/DL (0-1.0 MG/DL) 0 - 1.0 MG/DL [facility] WBC Auto (Urine sed) [#/Area] WBC NONE SEEN /HPF (0-3 /HPF) 0 - 3 /HPF [facility] Reflex to Urine Culture CULTURE NOT INDICATED Performed at [address] [address] (Reference Range: not available) [facility] Microscopic AUTOMATIC MICROSCOPIC URINES (Reference Range: not available) [facility] Urinalysison 09-23-2020 Clarity (U) Urine Clarity CLEAR (Reference Range: not available) [facility] Color (U) Urin color YELLOW (Reference Range: not available) [facility] Methadone Ql (U) Urine Methadone NEGATIVE (Reference Range: not available) [facility] Protein (U) [Mass/Vol] Prot TRACE mg/dL A (NEG mg/dL) Abnormal [facility] Specific gravity (U) [Rel density] Urine Sp [place] 1.026 (1.005-1.030 ) 1.005 - 1.030 [facility] NR MRI CERVICAL WOon 021 NR MRI CERVICAL WO Patient Name: CAMERON TERESA STUDY: MRI of the cervical spine without contrast. INDICATION: syncope, age-indeterminate irregularity involving the anterior/superior aspect of the C5 vertebral body. COMPARISON: CT cervical spine 08/31/2020 ACCESSION NUMBER(S): [id number] ORDERING CLINICIAN: FAHEEM LINDSAY TECHNIQUE: Multiplanar, multisequence [...] Electronically signed by: CHAIM DOSS MD Normal [facility] Provider Note - ED Care Fletcher sitionon [...] Updated: 01-Sep-2020 02:17 by Millicent Ross) Normal [facility] CBC AND DIFFERENTIALon 08-31 % AUTOMATED IMMATURE GRAN 0.2 % Normal 0.0 - 1.0 [facility] Comment on above: Result Comment: Jessica ture Granulocyte Count (IG) includes promyelocytes, myelocytes and metamyelocytes but does not include bands. Percent differential counts (%) should be interpreted in the context of the absolute cell counts (cells/L). Performed By: #### C BCDF #### [facility] [address] [place] [address] Basophils (Bld) [#/Vol] 0.02 10*3/uL Normal 0.00 - 0.1 0 [facility] Comment on above: Performed By: #### C BCDF #### [facility] [address] [place] [address] Basophils/100 WBC (Bld) 0.2 % Normal 0.0 - 1.0 [facility] Comment on above: Performed By: #### C BCDF #### [facility] [address] [place] [address] Eosinophils (Bld) [#/Vol] 0.04 10*3/uL Normal 0.00 - 0.70 [facility] Comment on above: Performed By: #### C BCDF #### [facility] [address] [place] [address] Eosinophils/100 WBC (Bld) 0.5 % Normal 0.0 - 5.0 [facility] Comment on above: Performed By: #### C BCDF #### [facility] [address] [place] [address] Erythrocyte distribution width (RBC) [Ratio] 12.9 % Normal 11.5 - 14.5 [facility] Comment on above: Performed By: #### C BCDF #### [facility] [address] [place] [address] Hematocrit (Bld) [Volume fraction] 47.3 % Normal 37.0 - 49.0 [facility] Comment on above: Performed By: #### C BCDF #### [facility] [address] [place] [address] Hemoglobin (Bld) [Mass/Vol] 15.8 g/dL Normal 13.0 - 16.0 [facility] Comment on above: Performed By: #### C BCDF #### [facility] [address] [place] [address] Lymphocytes (Bld) [#/Vol] 1.53 10*3/uL Low 1.80 - 4.80 [facility] Comment on above: Performed By: #### C BCDF #### [facility] [address] [place] [address] Lymphocytes/100 WBC (Bld) 18.1 % Normal 28.0 - 48.0 [facility] Comment on above: Performed By: #### C BCDF #### [facility] [address] [place] [address] MCHC (RBC) [Mass/Vol] 33.4 g/dL Normal 31.0 - 37.0 [facility] Comment on above: Performed By: #### C BCDF #### [facility] [address] [place] [address] MCV (RBC) [Entitic vol] 87 fL Normal 78 - 102 [facility] Comment on above: Performed By: #### C BCDF #### [facility] [address] [place] [address] Monocytes (Bld) [#/Vol] 0.58 10*3/uL Normal 0.10 - 1.0 0 [facility] Comment on above: Performed By: #### C BCDF #### [facility] [address] [place] [address] Monocytes/100 WBC (Bld) 6.8 % Normal 3.0 - 9.0 [facility] Comment on above: Performed By: #### C BCDF #### [facility] [address] [place] [address] Neutrophils (Bld) [#/Vol] 6.28 10*3/uL Normal 1.20 - 7.70 [facility] Comment on above: Performed By: #### C BCDF #### [facility] [address] [place] [address] Neutrophils/100 WBC (Bld) 74.2 % Normal 33.0 - 69.0 [facility] Comment on above: Performed By: #### C BCDF #### [facility] [address] [place] [address] Platelets (Bld) [#/Vol] 213 10*3/uL Normal 150 - 400 [facility] Comment on above: Performed By: #### C BCDF #### [facility] [address] [place] [address] RBC 5.46 x10E12/L High 4.50 - 5.30 [facility] Comment on above: Performed By: #### C BCDF #### [facility] [address] [place] [address] WBC (Bld) [#/Vol] 8.5 10*3/uL Normal 4.5 - 13.5 [facility] Comment on above: Performed By: #### C BCDF #### [facility] [address] [place] [address] COMPREHENSIVE PANELon 2020 Albumin [Mass/Vol] 4.7 g/dL Normal 3.4 - 5.0 [facility] Comment on above: Performed By: #### C MP #### [facility] [address] [place] [address] ALP [Catalytic activity/Vol] 123 U/L Normal 33 - 139 [facility] Comment on above: Performed By: #### C MP #### [facility] [address] [place] [address] ALT [Catalytic activity/Vol] 20 U/L Normal 3 - 28 [facility] Comment on above: Result Comment: Moisés ents treated with Sulfasalazine may generate falsely decreased results for ALT. Performed By: #### C MP #### [facility] [address] [place] [address] Anion gap [Moles/Vol] 15 mmol/L Normal 10 - 30 [facility] Comment on above: Performed By: #### C MP #### [facility] [address] [place] [address] AST [Catalytic activity/Vol] 24 U/L Normal 9 - 32 [facility] Comment on above: Performed By: #### C MP #### [facility] [address] [place] [address] Bilirubin [Mass/Vol] 0.3 mg/dL Normal 0.0 - 0.9 [facility] Comment on above: Performed By: #### C MP #### [facility] [address] [place] [address] Calcium [Mass/Vol] 9.6 mg/dL Normal 8.5 - 10.7 [facility] Comment on above: Performed By: #### C MP #### [facility] [address] [place] [address] Chloride [Moles/Vol] 103 mmol/L Normal 98 - 107 [facility] Comment on above: Performed By: #### C MP #### [facility] [address] [place] [address] Creatinine [Mass/Vol] 1.01 mg/dL Normal 0.60 - 1.10 [facility] Comment on above: Performed By: #### C MP #### [facility] [address] [place] [address] Glucose [Mass/Vol] 123 mg/dL High 74 - 99 [facility] Comment on above: Performed By: #### C MP #### [facility] [address] [place] [address] HCO3 (Bld) [Moles/Vol] 26 mmol/L Normal 18 - 27 [facility] Comment on above: Performed By: #### C MP #### [facility] [address] [place] [address] Potassium [Moles/Vol] 4.1 mmol/L Normal 3.5 - 5.3 [facility] Comment on above: Performed By: #### C MP #### [facility] [address] [place] [address] Protein [Mass/Vol] 7.0 g/dL Normal 6.2 - 7.7 [facility] Comment on above: Performed By: #### C MP #### [facility] [address] [place] [address] Sodium [Moles/Vol] 140 mmol/L Normal 136 - 145 [facility] Comment on above: Performed By: #### C MP #### [facility] [address] [place] [address] Urea nitrogen [Mass/Vol] 16 mg/dL Normal 6 - 23 [facility] Comment on above: Performed By: #### C #### [facility] [address] [place] [address] CT C-SPINE WO CONTRASTon CT C-SPINE WO CONTRAST Patient Name: CAMERON TERESA STUDY: CT HEAD WO CONTRAST; CT FACIAL BONES; CT C-SPINE WO CONTRAST; 08/31/2020 9:55 pm INDICATION: syncope, hit right side of face and head. COMPARISON: None. ACCESSION NUMBER(S): [id number]; [id number]; [id number] ORDERING CLINICIAN: FAHEEM LINDSAY TECHNIQUE: Axial noncontrast [...] swelling. No traumatic malalignment. Electronically signed by: OGRGE BRAXTON MD Normal [facility] CT FACIAL BONESon 08-31-2020 CT FACIAL BONES Patient Name: CAMERON TERESA STUDY: CT HEAD WO CONTRAST; CT FACIAL BONES; CT C-SPINE WO CONTRAST; 08/31/2020 9:55 pm INDICATION: syncope, hit right side of face and head. COMPARISON: None. ACCESSION NUMBER(S): [id number]; [id number]; [id number] ORDERING CLINICIAN: FAHEEM LINDSAY TECHNIQUE: Axial noncontrast [...] malalignment. Electronically signed by: GORGE BRAXTON MD Normal [facility] CT HEAD WO CONTRASTon 2020 CT HEAD WO CONTRAST Patient Name: CAMERON TERESA STUDY: CT HEAD WO CONTRAST; CT FACIAL BONES; CT C-SPINE WO CONTRAST; 08/31/2020 9:55 pm INDICATION: syncope, hit right side of face and head. COMPARISON: None. ACCESSION NUMBER(S): [id number]; [id number]; [id number] ORDERING CLINICIAN: FAHEEM LINDSAY TECHNIQUE: Axial noncontrast [...] Electronically signed by: GORGE BRAXTON MD [facility] Provider Note - ED v2on [...] with sinus arrhythmia, ventricular rate 72 bpm, LA interval 146, QRS duration 86, QTc 387, [...] I did discuss with trauma surgery at [facility], Dr. Hopkins, who recommended MRI of the [...] to follow-up (more content not included)... Normal [facility] TROPONIN Ion 08-31-2020 Troponin I.cardiac [Mass/Vol] ng/mL Normal 0.00 - 0.03 [facility] Comment on above: Result Comment: LESS THAN [...] is performed using different testing methodology at [facility] than at other [facility]. Direct result comparisons should only be made within the same method. Performed By: #### T ROP2 #### [facility] [address] [place] [address] Triage - ED Pedson Triage - ED [...] normal position, moves easily FLACC Score: 0 [place] Coma Scale Peds (2yrs to Adult): Best Eye Response: (E4) spontaneous Best Verbal Response: (V5) oriented Best Motor Response: (M6) obeys commands [place]ba Coma Scale Score: 15 Cough Lasting Greater than 2 Weeks: no Allergies: no Mask Applied: yes Patient has Homicidal Thoughts: no Acuity Level: 2 Peds Complaint Code ([facility] ONLY): N/A [facility] ABCD PRIMARY ASSESSMENT CAMERON TERESA's primary assessment is Within Defined Limits. The airway is open and patent. Breathing spontaneous and unlabored with clear breath sounds bilaterally. Circulation is normal with good peripheral pulses. Skin is warm and dry and color is normal for race. Alert and appropriate for age. RISK SCREEN [place] Suicide Risk Screen Risk Screen Not Applicable/Able [...] 31-Aug-2020 20:03 by Magui Lam (AGUILA) Normal [facility] COMPLETE BLOOD COUNTon 08-19 Erythrocyte distribution width (RBC) [Ratio] 13.6 % Normal 11.5-14.5 [facility] Comment on above: Performed By: #### C BC #### [facility] [address] [place] [address], Hematocrit (Bld) [Volume fraction] 47.5 % Normal 37.0-49.0 [facility] Comment on above: Performed By: #### C BC #### S [facility] LABORAT[facility] [address] [place] [address], Hemoglobin (Bld) [Mass/Vol] 15.5 g/dL Normal 13.2-15.6 [facility] Comment on above: Performed By: #### C BC #### [facility] [address] [place] [address], MCH (RBC) [Entitic mass] 28.2 pg Normal 25.0-35.0 [facility] Comment on above: Performed By: #### C BC #### S [facility] [address] [place] [address], MCHC (RBC) [Mass/Vol] 32.6 g/dL Normal 32.0-35.9 [facility] Comment on above: Performed By: #### C BC #### S [facility] [address] [place] [address], MCV (RBC) [Entitic vol] 86 fL Normal 78-100 T [facility] Comment on above: Performed By: #### C BC #### S [facility] [address] [place] [address], Platelet mean volume (Bld) [Entitic vol] 9.6 fL Normal 7.5-11.2 [facility] Comment on above: Performed By: #### C BC #### [facility] [address] [place] [address], Platelets (Bld) [#/Vol] 155 10*3/uL Normal 150-400 [facility] Comment on above: Performed By: #### C BC #### [facility] [address] [place] [address], RBC (Bld) [#/Vol] 5.49 10*6/uL High 4.50-5.30 [facility] Comment on above: Performed By: #### C BC #### S [facility] [address] [place] [address], WBC (Bld) [#/Vol] 4.6 10*3/uL Normal 4.5-13.0 [facility] Comment on above: Performed By: #### C BC #### [facility] [address] [place] [address], TSHon 08-19-2020 TSH Qn 2.625 uIU/mL Normal 0.700-6.000 [facility] Comment on above: Performed By: #### T SH HS #### [facility] [address] [place] [address], VITAMIN D, 25-HYDROXYon 07-29 VITD25 29.7 ng/mL Low 30.0-100.0 [facility] Comment on above: Performed By: #### V ITD25 #### [facility] [address] [place], [place], NURSING PROGon 06-10-2020 NURSING PROG HNO ID: [id number] Author: Mingo BeckhamRn) AGUIAL Neil Service: Nursing Author Type: Registered Nurse Type: Nursing Progress Note Filed: 06/10/2020 11:32 AM Note Text: Nursing Progress Note Patient Name: Cameron Teresa Patient Location: [id number]/[facility] Daily Note: Pt awake at 0800, standing [...] requesting to speak with DELILAH and 0900- SW met with pt and this RN - discussed pt's opinion about bio mom and guidelines here. Dr. Perez met with pt and confirmed with pt that our medical staff spoke with chan and bio Dad (guardians) and used that info to put mom utilization review specialist list and limit it to 1 call per day and no visits at this time. Pt mumbled that's bull shit after LIP left room. 1100- Pt is calm at this time and is in school. This note was completed by: Mingo Neil RN [facility] NURSING PROG HNO ID: [id number] Author: Sylwia BeckhamRn) AGUILA Jarvis Service: Nursing Author Type: Registered Nurse Type: Nursing Progress Note Filed: 06/10/2020 2:02 AM Note Text: Nursing Progress Note Patient Name: Cameron BAEZN: [id number] Patient [id number][facility] Daily Note: Patient awake in room [...] note was completed by: Sylwia Jarvis RN [facility] PLAN OF CAREon 06-10-2020 PLAN OF CARE HNO ID: [id number] Author: Corrine Munoz Service: Psychiatry Author Type: [...] Treatment Plan: Yes Initial Treatment Plan Date: 12/12/20 Other Participants: N/A Strengths/Assets: Insight into illness;Receiving [...] 06/09/20 Progress Towards Short Term Goals: Progressing District Director Goals: Identify positive alternatives to self-injurious behavior [...] 06/09/20 Progress Towards Short Term Goals: Progressing District Director Goals: Identify positive alternatives to aggession Target Date Jail Goals: 06/11/20 Progress Towards District Director Goals: Progressing Interventions - Nursing: Remain calm and firmly set limits for the patient's behaviors;Administer medications as indicated and monitor patient for effect;Provide education to the patient and/or family about the disease process and management as appropriate Interventions - Social Work: Coordination with family;Coordination with outpatient providers Staff in attendance and in agreement with this plan: Attending: Dr. Munoz Resident: Dr Perez Physician Functional Support Analyst: Matthew Ellison Nurse: KEN Madsen, RN Clinical Researcher: Linnea Hester Pharmacy: [facility] Recreational Therapy: Loly Chand This plan was reviewed with patient/family. Attending Psychiatrist: Dr. Munoz DOCUMENTED BY: Mingo Neil, RN PATIENT NAME: Cameron Teresa DATE: June 10, 2020 TIME: 11:17 AM PAGER/CONTACT #: [facility] SOCIAL WORKon 06-10-2020 SOCIAL WORK HNO ID: [id number] Author: Alvaro Mims (Sw) Service: Social Work Author Type: Clinical Researcher Type: Social Work Filed: 06/10/2020 9:04 AM Note Text: CHILD AND ADOLESCENT PSYCHIATRY SOCIAL WORK ONGOING ASSESSMENT PATIENT NAME: Cameron Teresa ADDRESS: [address] [place] [address] [facility] DATE: 06/06/2020 DATE of SERVICE: 06/10/2020 Cameron was discussed in treatment team. Cameron is ready for discharge at the time of this note. Collateral information collected: Plan is for patient to be transported via ambulance today to 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 Spoke with step mother, Noa, to confirm discharge for today back to [facility] via ambulance, step mother confirmed this is the plan and did not have any other questions at this time. Follow-up: ? Inpatient Substance Abuse treatment/Psychiatry and therapy services Name:?Regina, therapist - Viki, delivery room supervisor? ext [phone] Agency: [facility] Location:?[address] [place] [address] Phone:? Appointment: June 10, 2020 at 1:30pm ? Current psychiatrist Name:?Dr. Benjamin Agency:?[facility] [employer] Location:?[employer] Phone:?[phone] Next appointment: to be made after [facility] placement? ? Current therapist?(has not seen for several months due to IHBT AND [facility]) Name:?Millicent Sahni Agency:?[facility] [employer] Location:?[employer] Phone:?[phone] Next appointment confirmed???No - to be considered once treatment at [facility] is completed. ? [facility] from November to April Name:?[facility] Agency:?[facility] Location:?[employer] Phone:?[phone] Next appointment: to made after [facility] placement ? [facility] Children and [facility] Name: Marielos Durbin Agency: [facility] ? ? ? Other residentials to consider after [facility] at[facility] [place] [address], phone:?[phone], ?[email or web address] 4. [facility], location: [place] Phone:?[phone] - parent must call to follow up 5. [facility] located at?[address] [place] [address], phone: [phone], fax: [phone] 6. [facility] located at?[address] [address], phone:? SIGNATURE: ORESTES Ornelas DATE of SERVICE: 06/10/2020 TIME of SERVICE: 8:18 AM [facility] ALLIED HEALTHon 06-09-2020 ALLIED HEALTH HNO ID: [id number] Author: Linnea (Therapist) Mendy Service: Music Therapy [...] continued as schedule allows, ITP reviewed Therapist: RASHAAD Cr [facility] ALLIED HEALTH HNO ID: [id number] Author: Pearl (Metal Tube Cutter) Mannie Service: Recreational Therapy Author Type: Therapist Type: [...] affect was flat. ? Signature: Pearl Chand, SETTLEMENT WORKER Date: June 09, 2020 Time: 4:39 PM [facility] NURSING PROGon 06-09-2020 NURSING PROG HNO ID: [id number] Author: Mingo (Rn) AGUILA Neil Service: Nursing Author Type: Registered Nurse Type: Nursing Progress Note Filed: 06/09/2020 6:13 PM Note Text: Nursing Progress Note Patient Name: Cameron Teresa Patient [facility] [id number][facility] Daily Note: Pt awake at 0830- ate [...] note was completed by: Mingo Neil RN [facility] NURSING PROG HNO ID: [id number] Author: Lauren (Rn) AGUILA Núñez Service: Nursing Author Type: Registered Nurse Type: Nursing Progress Note Filed: 06/09/2020 2:53 AM Note Text: Nursing Progress Note Patient Name: Cameron Teresa Patient Location: [place] [address]/[place] 536575-00 Daily Note: pt did not attend the movie [email or web address] and was just hanging out in his [...] note was completed by: Lauren Núñez RN [facility] PLAN OF CAREon 06-09-2020 PLAN OF CARE HNO ID: [id number] Author: Corrine Munoz Service: Psychiatry Author Type: [...] 06/09/20 Progress Towards Short Term Goals: Progressing District Director Goals: Identify positive alternatives to self-injurious behavior Target Date District Director Goals: 06/11/20 Progress Towards District Director Goals: Progressing Interventions - Nursing: Initiate safety [...] Identify positive alternatives to aggession Target Date District Director Goals: 06/11/20 Progress Towards District Director Goals: Progressing Interventions - Nursing: Initiate safety [...] Attending: Dr. Munoz Resident: Dr. Perez Physician Functional Support Analyst: Matthew Ellison Nurse: KEN Madsen, RN Clinical Researcher: Alvaro Power Pharmacy: [facility] Recreational Therapy: Loly Chand This plan was reviewed with patient/family. Attending Psychiatrist: Dr. Munoz DOCUMENTED BY: Mingo Neil RN PATIENT NAME: Cameron Teresa DATE: June 09, 2020 TIME: 10:02 AM PAGER/CONTACT #: [facility] ARNULFOon 06-09-2020 PROGRESS HNO ID: [id number] Author: Corrine Munoz Service: Pediatric Psychiatry Author [...] substance abuse treatment. Has been accepted to [facility]. Patient continues to show improvement with his medication and participation in group activities will likely anticipate discharge on 06/10 back to [facility]. Active Hospital Problems Diagnosis Date Noted [...] Overview Note: Currently in residential treatment at [facility]. Main drug of abuse currently = meth [...] WITH BREAKFAST ALLERGIES No Known Allergies OBJECTIVE 06/06/20232506/07/20 0920 06/08/20 0918 06/09/20 0846 BP: 136/78 134/65 108/63 142/71 Pulse: 60 61 61 67 Resp: 18 18 16 20 Temp: 36.6 ?C (97.9 ?F) 36.4 [...] 09, 2020 TIME of SERVICE: 9:29 AM [facility] STAFF: TEACHING PHYSICIAN NOTE OF PERSONAL INVOLVEMENT [...] We discussed plan to discharge back to [facility] and patient was eager for this [...] PM Authenticated by responsible provider. __ Normal [facility] SOCIAL WORKon 06-09-2020 SOCIAL WORK HNO ID: [id number] Author: Alvaro Mims (Sw) Service: Social Work Author Type: Clinical Researcher Type: Social Work Filed: 06/09/2020 2:57 PM Note Text: CHILD AND ADOLESCENT PSYCHIATRY SOCIAL WORK ONGOING ASSESSMENT PATIENT NAME: Cameron Teresa ADDRESS: [address] [place] [address] [facility] ADMIT DATE: 06/06/2020 DATE of SERVICE: 06/09/2020 Cameron was discussed in treatment team. Cameron is not ready for discharge at the time of this note. Collateral information collected: Spoke with Viki Cobb at [facility] who reports the patient has been at their agency 3x, they were talking with the patient on Tuesday about his desire to step down to the recovery housing and this led to the disagreement as staff at [facility] do not feel he is ready to step down yet. When ready to step down, patient would have more privileges, less staff monitoring in order to allow the patient to transition home eventually. [facility] staff do not think any residential placement afterwards would be of much use as the patients primary need is substance use and sobriety and could then see an out patient provider for mental health services. [facility] is willing to take the patient back into their program when he is ready for discharge from the hospital. Phone call to step mother/father who reports she would like patient to return to [facility]'s with the plan for referrals for mental health residential placements once he is completed with [facility]. Step mother would like referrals to be sent out to [facility] [place] [place]. Discussed the financial commitment that the family would be required to assist with,step mother reports [facility] Children [facility] is helping to fund [facility] in addition to the insurance coverage. [facility] is not accepting any new referrals for admissions at this time. [facility] is not accepting patients over the age of 12 at this time. Faxed to [facility] [place], [employer] and called [facility] Phone call to [facility], message left for Viki to update her about discharge for Tuesday and to coordinate return to placement of patient. Phone call to Marielos Durbin at [facility], message left requesting a return call. Spoke with [facility] who is in agreement with patient returning on Tuesday, will contact family to discuss discharge and transport plan. Spoke with step mother who reports the plan is for patient to return to [facility], via ambulance is the preferred method by the family. Also updated the referrals sent for residential placement. Mother requested the doctor call her for an update today, message shared with Dr Booker. Ambulance set for 12:30pm picked edge sewing machine operator on Tuesday to transport patient to [facility], family and [facility] are aware. Follow-up: ? Inpatient Substance Abuse treatment Name: Regina, therapist - Viki, delivery room supervisor ext [phone] Agency: [facility] Location: [address] [place] [address] Appointment: returning back. ? Current psychiatrist Name:?Dr. Benjamin Agency:?[facility] Location:?[employer] Phone:?[phone] Next appointment: to be made after [facility] placement ? Current therapist (has not seen for several months due to IHBT AND [facility]) Name:?Millicent Sahni Agency:?[facility] Location:?[employer] Phone:?[phone] Next appointment confirmed???No ? IHBT from November to April Name:?[facility] Agency:?[facility] Location:?[employer] Phone:?[phone] Next appointment: to made after [facility] placement [facility] Name: Marielos Durbin Agency: [facility] ? Other residentials to consider after [facility] 1. [facility] [place] [address] [place] [address], phone: [phone], [email or web address] 2. [facility] located at [address] [place] [address], 3. [facility] [facility] [place] [address] [place] [address], 4. [facility], location: [place] 5. [facility] located at [address] [place] [address], phone: [phone], fax: [phone] 6. [facility] located at [address] [place] [address], phone: SIGNATURE: ORESTES Ornelas DATE of SERVICE: 06/09/2020 TIME of SERVICE: 8:23 AM [facility] ALLIED HEALTH 06-08-2020 ALLIED HEALTH HNO ID: [id number] Author: Fatuma Madden (Ctrs) Service: Recreational Therapy [...] idepenedent, aware, comforting to others . Signature: Fatuma Madden, SETTLEMENT WORKER Date: June 08, 2020 Time: 12:35 PM [facility] NURSING PROGon 06-08-2020 NURSING PROG HNO ID: [id number] Author: Mingo BeckhamRn) AGUILA Neil Service: Nursing Author Type: Registered Nurse Type: Nursing Progress Note Filed: 06/08/2020 6:02 PM Note Text: Nursing Progress Note Patient Name: Cameron Teresa Patient Location: [place] [address]/[place] [id number]- Daily Note: Pt awake at 0800, cooperative [...] note was completed by: Mingo Neil RN [facility] NURSING PROG HNO ID: [id number] Author: Zaria BeckhamRn) AGUILA Nieto Service: Nursing [...] monitor q15min and review his [place] plan. [facility] PLAN OF CAREon 06-08-2020 PLAN OF CARE HNO ID: [id number] Author: Caroline Durand Service: Psychiatry Author Type: [...] Attending: Dr Durand Nurse: KEN Madsen, RN Clinical Researcher: ORESTES Power This plan was reviewed with patient/family. Attending Psychiatrist: Dr. Durand DOCUMENTED BY: Mingo Neil RN PATIENT NAME: Cameron Teresa DATE: June 08, 2020 TIME: 5:58 PM PAGER/CONTACT #: [facility] PROGRESSon 06-08-2020 PROGRESS HNO ID: [id number] Author: Caroline Durand Service: Psychiatry Author Type: [...] Overview Note: Currently in residential treatment at [facility]. Main drug of abuse currently = meth [...] because he feels these limitations are [facility]. New problems (including any need for seclusion/restraint) [...] would like him to go back to [facility] and for this worker to refer [...] a overwhelmed parent case with CFS. Offered [employer] but she stated that they could not afford this option. ? Medical History Medical history reviewed and included as relevant to this admission above. Medications Current Facility-Administere d Medications Medication Dose Route Frequency - melatonin 10 mg tab(s) 10 mg ORAL AT BEDTIME - venlafaxine ER 37.5 mg cap(s) (EFFEXOR XR) 37.5 mg ORAL DAILY WITH BREAKFAST ALLERGIES No Known Allergies OBJECTIVE 06/06/20232506/07/2091906/08/20917 BP: 136/78 134/65 108/63 Pulse: 60 61 [...] 08, 2020 TIME of SERVICE: 6:13 PM [facility] SOCIAL WORKon 06-08-2020 SOCIAL WORK HNO ID: [id number] Author: Linnea Todd (Sw) Service: Social Work Author Type: Clinical Researcher Type: Social Work Filed: 06/08/2020 3:10 PM Note Text: CHILD AND ADOLESCENT PSYCHIATRY SOCIAL WORK ONGOING ASSESSMENT PATIENT NAME: Cameron Teresa ADDRESS: [address] [place] [address] COUNTY: [place] ADMIT DATE: 06/06/2020 DATE of SERVICE: 06/08/2020 Cameron was discussed in treatment team. Cameron is not ready for discharge at the time of this note. Treatment team: it is recommended that the [facility] to [facility] and then the family look into alterative residential treatment centers once [facility] is complete. The patient's insurance approved [facility] [employer], per the last social research assistant note. Spoke with chan. Discussed the options. [...] a overwhelmed parent case with CFS. Offered [employer] but she stated that they could not afford this option. poultry farmworker to follow up with chan and dad regarding any referrals to residential treatment centers. poultry farmworker emailed Mary with [facility] asking if they would accept the patient back into their program at d/c. Follow up: Inpatient Substance Abuse treatment Name: Regina, therapist Giovany, delivery room supervisor Agency: [facility] Location: [address] [place] [address] Appointment: returning back. Current psychiatrist Name: Dr. Benjamin Agency: [facility] Location: [place] Next appointment: to be made after [facility] placement ? Current therapist (has not seen for several months due to IHBT AND [facility]) Name: Millicent Sahni Agency: [facility] Location: [place] Next appointment confirmed? No ? IHBT from November to April Name: Germain Agency: [facility] Location: [place] Next appointment: to made after [facility] placement ? Other residentials to consider after [facility] 1. [facility] [place] [address] [place] [address], phone: [phone], [email or web address] 2. [facility] located at [address] [place] [address], 3. [facility] located at [address] [place] [address], 4. [facility], location: [place] 5. [facility] located at [address] [place] [address], phone: [phone], fax: [phone] 6. [facility] located at [address] [address], phone: SIGNATURE: SUSAN Foley DATE of SERVICE: 06/08/2020 TIME of SERVICE: 12:07 PM [facility] ALLIED HEALTHon 06-07-2020 ALLIED HEALTH HNO ID: [id number] Author: Fatuma Madden (Ctrs) Service: Recreational Therapy [...] a secondary emotion experienced to anger. Signature: Fatuma Madden, SETTLEMENT WORKER Date: June 07, 2020 Time: 1:51 PM [facility] HNO ID: [id number] Author: Fatuma Madden (Ctrs) Service: Recreational Therapy [...] up and work on completion throughout admission. [facility] HNO ID: [id number] Author: Fatuma Madden (Ctrs) Service: Recreational Therapy [...] music, spending time with family, working at [employer] PATIENT'S GOALS FOR RECREATIONAL THERAPY PROGRAM: being stable on my new meds Recreational Therapy Recommendations: Pt will practice utilizing effective coping skills through engaging in therapeutic activity. Pt will practice expressing thoughts/feelings/em otions appropriately through engaging in therapeutic activity. GENERAL OBSERVATIONS: Clean and groomed Communicates easily Cooperative Good attitude Oriented Pleasant Signature: Fatuma Madden, SETTLEMENT WORKER Date: June 07, 2020 Time: 12:25 PM Normal [facility] CBC and Differentialon 06-07 Abs Baso <0.03 Normal <0.11 [facility] Comment on above: Performed By: #### C MP, CBCDIF, TSH, LIPB ####[place] [address]#### HBA1C ####[facility] [address] [place] [phone] Abs [place] 0.38 k/uL Normal <0.87 [facility] Comment on above: Performed By: #### C MP, CBCDIF, TSH, LIPB ####[address]#### HBA1C ####[facility] [address] [place] [phone] Abs Neut 2.70 k/uL Normal 1.45-7.50 [facility] Comment on above: Performed By: #### C MP, CBCDIF, TSH, LIPB ####[address]10#### HBA1C ####[place] [address] [place] [address] [place] [phone] Absolute nRBC <0.01 Normal <0.01 [facility] Comment on above: Performed By: #### C MP, CBCDIF, TSH, LIPB ####[place] [phone]#### HBA1C ####[place] [address] [phone] Basophils/100 WBC (Bld) 0.2 % Normal [facility] Comment on above: Performed By: #### C MP, CBCDIF, TSH, LIPB ####[place] [address]#### HBA1C ####[place] [address] [phone] DTYPE Auto Diff Normal [facility] Comment on above: Performed By: #### C MP, CBCDIF, TSH, LIPB ####[place] [address]#### HBA1C ####[place] [address] [place] [address] [place] [phone] Eosinophils (Bld) [#/Vol] 0.05 10*3/uL Normal <0.46 [facility] Comment on above: Performed By: #### C MP, CBCDIF, TSH, LIPB ####[place] [address]#### HBA1C ####[place] [address] [phone] Eosinophils/100 WBC (Bld) 1.1 % Normal [facility] Comment on above: Performed By: #### C MP, CBCDIF, TSH, LIPB ####[address]10#### HBA1C ####[place] [address] [place] [address] [place] [phone] Erythrocyte distribution width (RBC) [Ratio] 12.6 % Normal 11.5-15.0 [facility] Comment on above: Performed By: #### C MP, CBCDIF, TSH, LIPB ####[place] [address]#### HBA1C ####[place] [address] [address] [phone] Hematocrit (Bld) [Volume fraction] 47.4 % Normal 39.0-51.0 [facility] Comment on above: Performed By: #### C MP, CBCDIF, TSH, LIPB ####[place] [address]#### HBA1C ####[place] [phone] Hemoglobin (Bld) [Mass/Vol] 15.9 g/dL Normal 13.0-17.0 [facility] Comment on above: Performed By: #### C MP, CBCDIF, TSH, LIPB ####[place] [address]#### HBA1C ####[place] [phone] Lymphocytes (Bld) [#/Vol] 1.35 10*3/uL Normal 1.00-4.00 [facility] Comment on above: Performed By: #### C MP, CBCDIF, TSH, LIPB ####[place] [address]#### HBA1C ####[place] [phone] Lymphocytes/100 WBC (Bld) 30.0 % Normal [facility] Comment on above: Performed By: #### C MP, CBCDIF, TSH, LIPB ####[place] [address]#### HBA1C ####[place] [address] [address] [phone] MCH (RBC) [Entitic mass] 29.0 pG Normal 26.0-34.0 [facility] Comment on above: Performed By: #### C MP, CBCDIF, TSH, LIPB ####[phone]#### HBA1C ####[place] [address] [place] [address] [place] [phone] MCHC (RBC) [Mass/Vol] 33.5 g/dL Normal 30.5-36.0 [facility] Comment on above: Performed By: #### C MP, CBCDIF, TSH, LIPB ####[place] [address]#### HBA1C ####[place] [phone] MCV (RBC) [Entitic vol] 86.3 fL Normal 80.0-100.0 [facility] Comment on above: Performed By: #### C MP, CBCDIF, TSH, LIPB ####[place] [address]#### HBA1C ####[place] [phone] Monocytes/100 WBC (Bld) 8.4 % Normal [facility] Comment on above: Performed By: #### C MP, CBCDIF, TSH, LIPB ####[address]476-[address]#### HBA1C ####[place] [phone] Neutrophils/100 WBC (Bld) 60.3 % [facility] Comment on above: Performed By: #### C MP, CBCDIF, TSH, LIPB ####[place] [address]#### HBA1C ####[place] [address] [address]CR[address] [phone] NRBCs 0.0 /100 WBC Normal 0 [facility] Comment on above: Performed By: #### C MP, CBCDIF, TSH, LIPB ####[place] [address]#### HBA1C ####[place] [address] [address] [phone] Platelet mean volume (Bld) [Entitic vol] 11.2 fL Normal 9.0-12.7 [facility] Comment on above: Performed By: #### C MP, CBCDIF, TSH, LIPB ####[place] [address]#### HBA1C ####[place] [address] [address] [phone] Platelets (Bld) [#/Vol] 165 10*3/uL Normal 150-400 [facility] Comment on above: Performed By: #### C MP, CBCDIF, TSH, LIPB ####[address]#### HBA1C ####[place] [address] [address] [phone] RBC (Bld) [#/Vol] 5.49 10*6/uL Normal 4.20-6.00 [facility] Comment on above: Performed By: #### C MP, CBCDIF, TSH, LIPB ####[address]#### HBA1C ####[place] [address] [address] [phone] WBC (Bld) [#/Vol] 4.50 10*3/uL Normal 3.70-11.00 [facility] Comment on above: Performed By: #### C MP, CBCDIF, TSH, LIPB ####[phone]#### HBA1C ####[address] [phone] Comp Metabolic Panelon 06-07 Albumin [Mass/Vol] 4.3 g/dL Normal 3.5-5.0 [facility] Comment on above: Performed By: #### C MP, CBCDIF, TSH, LIPB ####[phone]#### HBA1C ####[place] [phone] ALP [Catalytic activity/Vol] 146 U/L Normal 82-331 [facility] Comment on above: Result Comment: Refe [...] By: #### C MP, CBCDIF, TSH, LIPB ####[place] [address]#### HBA1C ####[place] [phone] ALT [Catalytic activity/Vol] 12 U/L Normal 5-50 [facility] Comment on above: Performed By: #### C MP, CBCDIF, TSH, LIPB ####[phone]#### HBA1C ####[address] [phone] Anion gap [Moles/Vol] 9 mmol/L Normal 9-18 [facility] Comment on above: Performed By: #### C MP, CBCDIF, TSH, LIPB ####[address]10#### HBA1C ####[place] [phone] AST [Catalytic activity/Vol] 15 U/L Normal 7-40 [facility] Comment on above: Performed By: #### C MP, CBCDIF, TSH, LIPB ####[place] [address]#### HBA1C ####[place] [phone] Bilirubin [Mass/Vol] 0.4 mg/dL Normal 0.2-1.3 [facility] Comment on above: Result Comment: (NOT E) Reference ranges for this patient's age group have not been established. These reference ranges reflect verified or established ranges for the adult population. Interpret these ranges with caution using the clinical context and additional reference resources. Performed By: #### C MP, CBCDIF, TSH, LIPB ####[place] [address]#### HBA1C ####[place] [phone] Calcium [Mass/Vol] 9.8 mg/dL Normal 8.5-10.5 [facility] Comment on above: Performed By: #### C MP, CBCDIF, TSH, LIPB ####[place] [address]#### HBA1C ####[place] [phone] Chloride [Moles/Vol] 106 mmol/L Normal 98-110 [facility] Comment on above: Performed By: #### C MP, CBCDIF, TSH, LIPB ####[place] [address]#### HBA1C ####[place] [address] [place] [phone] CO2 [Moles/Vol] 25 mmol/L Normal 23-32 [facility] Comment on above: Performed By: #### C MP, CBCDIF, TSH, LIPB ####[place] [address]#### HBA1C ####[place] [address] [place]enn[place] [phone] Creatinine [Mass/Vol] 1.03 mg/dL Normal 0.40-1.30 [facility] Comment on above: Performed By: #### C MP, CBCDIF, TSH, LIPB ####[place] [address]#### HBA1C ####[place] [phone] Glucose [Mass/Vol] 102 mg/dL High 65-100 [facility] Comment on above: Performed By: #### C MP, CBCDIF, TSH, LIPB ####[place] [address]88[address]#### HBA1C ####[place] [phone] Potassium [Moles/Vol] 4.1 mmol/L Normal 3.5-5.0 [facility] Comment on above: Performed By: #### C MP, CBCDIF, TSH, LIPB ####[place] [address]#### HBA1C ####[place] [phone] Protein [Mass/Vol] 7.0 g/dL Normal 6.0-8.4 [facility] Comment on above: Performed By: #### C MP, CBCDIF, TSH, LIPB ####[address] [phone]#### HBA1C ####[facility] [place], [place] [phone] Sodium [Moles/Vol] 140 mmol/L Normal 135-146 [facility] Comment on above: Performed By: #### C MP, CBCDIF, TSH, LIPB ####[place] [phone]#### HBA1C ####[address] [phone] Urea nitrogen [Mass/Vol] 15 mg/dL Normal 5-20 [facility] Comment on above: Performed By: #### C MP, CBCDIF, TSH, LIPB ####[address] [phone]#### HBA1C ####[address] [phone] ED NOTEon 06-07-2020 ED NOTE HNO ID: [id number] Author: Zara (Rn) AGUILA Enciso Service: ? Author Type: Registered Nurse Type: ED Notes Filed: 06/06/2020 10:21 PM Note Text: Report given to transport team [facility] HISTORY PHYSICALon 0 HISTORY PHYSICAL HNO ID: [id number] Author: Caroline Durand Service: Psychiatry Author Type: [...] currently in residential substance use treatment at [facility] with several previous psychiatric admissions ([facility] in January 2020 and in twice in 2018, and [facility] in June 2019) admitted to Inpatient Psychiatry for SI with multiple plans (running into traffic, ODing on OTC medications, or jumping off ledge at [facility]). Family history is significant for mother with ROSITA (currently sober), anxiety, depression, borderline personality disorder. The developmental history is significant for stressors during and meeting all milestones. Previous medications trials were limited to: Zoloft, Prozac, Lexapro, Wellbutrin, Abilify, Vistaril Cameron lives with bio dad, step-mom, and paternal younger half-siblings in [place], [place]. In terms of stressors, patient's family [...] family. When not in residential treatment at [facility], he lives with bio dad, stepmother (in [...] Overview Note: Currently in residential treatment at [facility]. Main drug of abuse currently = meth Last use 5-6 weeks ago PLAN: - determine appropriate outpatient planning (CD vs mood vs dual diagnosis) - consider use of medication to assist with persistent meth cravings - family currently reluctant HISTORY OF PRESENT ILLNESS CHIEF COMPLAINT(S) Suicidal ideation Per patient report: Cameron reports that he was having a normal day at [facility] yesterday. He states that he was speaking [...] improve mood Per caregiver, Héctor and step joanna Noa ([phone]): The situation leading up to admission began when Cameron had requested that [facility] allow him to go to recovery housing, a lower level of care, in spite of his not going to therapy or school during the duration of his time at [facility]. Caregivers refused the change in level of [...] completed intense parenting classes and completed [facility] program (November to April 2020). He has only spoken to his family once in the past month at [facility], and, at that time, he gave them [...] 5 months this summer after being at [facility] Review of Systems Constitutional: Negative for chills [...] Patient is currently in residential treatment at [facility] ? - Current psychiatrist? Yes Name: Dr. Benjamin Agency: [facility] Location: [place] Next appointment confirmed? No ? - Current therapist? Yes, has not seen for several months due to IHBT AND [facility] Name: Millicent Sahni Agency: [facility] Location: [place] Next appointment confirmed? No ? - Other community support providers? Yes, IHBT from November to April Name: Germain Agency: [facility] Location: [place] Next appointment confirmed? No ? - School [...] Social Work Assessment completed by Vanessa Purvis UMBRELLA TIPPER [id number] reviewed as needed with patient and family. He lives with bio father, step mother (Noa), 4yo paternal half brother, and 8yo paternal half sister in [place], [place]. - Other pertinent family members? Yes: bio mother AND maternal grandmother - Are there pertinent family stressors? No - Relevant caregiver issues (expectations of hospital stay, reason for admission, involvement in assessment)? No - Currently in the 11th grade at [employer]. Cameron is in regular age appropriate [...] and alcohol use. We will consult medical staff assistant to manage any physical complaints or symptoms [...] for Implementation of NPSG 15A by [facility] Resources SIGNATURE: Astrid Villatoro MD DATE of SERVICE: 06/07/2020 TIME of SERVICE: 11:22 AM [facility] STAFF PHYSICIAN NOTE OF PERSONAL INVOLVEMENT IN [...] 14 year old male who presents from [facility] after 5 weeks of treatment for Meth [...] his parents in the 4 weeks at [facility] we had a very bad relationship, they [...] counseling and/or coordinating care for the patient. [id number] time was 60 minutes SIGNATURE: Caroline Durand MD PAGER: [phone] DATE of SERVICE: June 07, 2020 TIME of SERVICE: 6:21 PM Normal [facility] Hemoglobin A1con 06-07-2020 HbA1c (Bld) [Mass fraction] 5.5 % Normal 4.3-5.6 [facility] Comment on above: Result Comment: Amer ican Diabetes Association guidelines indicate that patients with HgbA1c in the range 5.7-6.4% are at increased risk for development of diabetes, and intervention by lifestyle modification may be beneficial. HgbA1c greater or equal to 6.5% is considered diagnostic of diabetes. Performed By: #### C MP, CBCDIF, TSH, LIPB ####[address] [phone]#### HBA1C ####[address] [phone] HbA1c (Bld) [Mass fraction] 111 mg/dL Normal [facility] Comment on above: Result Comment: eAG: (Estimated average glucose) is a calculated value from HgbA1c and is data entry representative of the average blood glucose level in the last 2-3 month period. Performed By: #### C MP, CBCDIF, TSH, LIPB ####[address] [phone]#### HBA1C ####[address] [phone] Lipid Panel, [place] 020 Cholesterol [Mass/Vol] 119 mg/dL Normal <170 [facility] Comment on above: Performed By: #### C MP, CBCDIF, TSH, LIPB ####[place] [address]#### HBA1C ####[place] [address] [address] [phone] Cholesterol in HDL [Mass/Vol] 43 mg/dL Low >45 [facility] Comment on above: Performed By: #### C MP, CBCDIF, TSH, LIPB ####[place] [address]#### HBA1C ####[place] [address] [place] [address] [phone] Cholesterol in LDL [Mass/Vol] 61 mg/dL Normal <110 [facility] Comment on above: Performed By: #### C MP, CBCDIF, TSH, LIPB ####[place] [address]#### HBA1C ####[address] LDL:HDL Ratio 1.42 Normal <2.42 [facility] Comment on above: Performed By: #### C MP, CBCDIF, TSH, LIPB ####[place] [address]#### HBA1C ####[place] [address] [place] [phone] Non HDL Cholesterol 76 mg/dL Normal <120 [facility] Comment on above: Performed By: #### C MP, CBCDIF, TSH, LIPB ####[place] [address]#### HBA1C ####[place] [address] [place] AveCVin[address] [place] [phone] TC:HDL Ratio 2.77 Normal <3.76 [facility] Comment on above: Performed By: #### C MP, CBCDIF, TSH, LIPB ####[place] [address]#### HBA1C ####[place] [phone] [place] [phone] Triglyceride [Mass/Vol] 76 mg/dL Normal <90 [facility] Comment on above: Performed By: #### C MP, CBCDIF, TSH, LIPB ####[address]10#### HBA1C ####[place] [phone] VLDL Cholesterol 15 mg/dL Normal <18 [facility] Comment on above: Performed By: #### C MP, CBCDIF, TSH, LIPB ####[address]10#### HBA1C ####[place] [phone] NURSING PROGon 06-07-2020 NURSING PROG HNO ID: [id number] Author: Mingo (Rn) AGUILA Neil Service: Nursing Author Type: Registered Nurse Type: Nursing Progress Note Filed: 06/07/2020 5:43 PM Note Text: Nursing Progress Note Patient Name: Cameron Teresa Patient Location: [place] [address]/[place] [id number] Daily Note: Pt awake at 0800, polite and cooperative with staff. Pt assessed with C-SSRS, scoring low risk for suicide- therefore standard precautions maintained. Pt inquired about getting a big book from to read here- staff inquiring. Pt interested in attending groups, and expecting parent to visit today. Pt wanting to have bio mom utilization review specialist and/or visiting list- will review with team. 0930- Pt given big book and 06/07 book to read. 1100- Pt sleeping at this time. 1400- Pt informed that bio Mom on list for him to call her. 1600- Pt attended nursing group. Minimal participation noted. This note was completed by: Mingo Neil RN Normal [facility] NURSING PROG HNO ID: [id number] Author: Zaria Salcedo (Rn) AGUILA Nieto Service: Nursing Author Type: Registered Nurse Type: Nursing Progress Note Filed: 06/07/2020 3:22 AM Note Text: IP NURSING BEHAVIORAL HEALTH PEDIATRIC ADMISSION NOTE Cameron Teresa [id number] Cameron Teresa is a 14 year old, male Admitted to Room [address] [facility] Psychiat[facility] Pediatrics General Admission Time of Admission: 2310 Admitted From: Outside Hospital Transfer Information Provided [...] Obvious Sexual Activity (Have you ever had-?): Osino Substance use (Have you ever tried-?): Tobacco, Alcohol, Street drugs, Inhalants(Been a month d/t in [facility]) Patient Response to Hospitalization: Other: See Comment( Numb ) Privacy Questions Sexual Activity (Have you ever had-?): Osino Substance use (Have you ever tried-?): Tobacco, Alcohol, Street drugs, Inhalants(Been a month d/t in [facility]) Behavioral Assessment Behavioral Summary~ Pt admitted 04/06/2020 at 2310 with MDD and SI. He has been residing at [facility] for the past month after running away from home when they found out he stole money from his siblings to buy drugs. 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 He has been implying to his therapist that he will kill himself if he cant stay sober. He has multiple plans including running into traffic, OD'ing on OTC meds or jumping off a ledge at [facility]. He has had stays at [facility] and . Currently not on medication. Suicide/Homicide Assessment Zaria Edwards RN [facility] PLAN OF CAREon 06-07-2020 PLAN OF CARE HNO ID: [id number] Author: Caroline Durand Service: Psychiatry Author Type: [...] Resident: Dr. Villatoro Nurse: Margarita Falcon RN Clinical Researcher: ORESTES Ngo This plan was reviewed with patient/family. Attending Psychiatrist: DOCUMENTED BY: Mingo Neil RN PATIENT NAME: Cameron Teresa DATE: June 07, 2020 TIME: 11:01 AM PAGER/CONTACT #: [place] [facility] SOCIAL WORKon 06-07-2020 SOCIAL WORK HNO ID: [id number] Author: Vanessa Purvis (Sw) Service: Social Work Author Type: Clinical Researcher Type: Social Work Filed: 06/07/2020 2:24 PM Note Text: CHILD AND ADOLESCENT PSYCHIATRY SOCIAL WORK INITIAL ASSESSMENT PATIENT NAME: Cameron Teresa ADDRESS: [address] [place] [address] COUNTY: [place] ADMIT DATE: 06/06/2020 DATE of SERVICE: 06/07/2020 DEMOGRAPHIC ADMISSION DATA Accompanied by no one Custody: biologic father (patient has some contact with bio mother) Family Contact Information: - biologic father's cell number: Héctor [phone] *step mom (Noa) is very involved and [...] Psychiatry for SI. Patient has been at [facility] for the past month (this is his [...] Patient is currently in residential treatment at [facility] - Current psychiatrist? Yes Name: Dr. Benjamin [facility] Location: [place] Next appointment confirmed? No - Current therapist? Yes, has not seen for several months due to IHBT AND [facility] Name: Millicent Sahni [facility] Location: [place] Next appointment confirmed? No - Other community support providers? Yes, IHBT from November to April Name: Germain Agency: [facility] Location: [place] Next appointment confirmed? No - School contact? [...] brother, and 8yo paternal half sister in [place], [place]. - Other pertinent family members? Yes: bio mother AND maternal grandmother - Are there pertinent family stressors? No - Relevant caregiver issues (expectations of hospital stay, reason for admission, involvement in assessment)? No - Spiritual, cultural, or health barriers to recovery and treatment motivation are not present. Educational History - Currently in the 11th grade at [employer]. Cameron is in regular age appropriate [...] health focused residential instead of returning to [place]. They have spoken to the insurance and Emeli Daniels are in network. Parents would like team's input as to whether pt should return to [place] or go to other residential. PLAN: - poultry farmworker spoke with the patient's caregiver and reviewed [...] 06/07/2020 TIME of SERVICE: 11:30 AM Normal [facility] TSHon 06-07-2020 TSH Qn 1.700 uU/mL Normal 0.510-4.300 [facility] Comment on above: Result Comment: Refe rence ranges were not locally established for this patient's age group. The normal values are based on the following source: Farrah Miles, Phil Vicente. Reference Ranges for Adults and Children: Pre-analytical Considerations. [facility] Performed By: #### C MP, CBCDIF, TSH, LIPB ####[place] [phone]#### HBA1C ####[facility] [address] [place], [place] [phone] Urinalysison 06-07-2020 Bilirubin, Urine Negative Normal Negative [facility] Comment on above: Performed By: #### U A ####[address] [phone] Clarity (U) Clear Normal Clear [facility] Comment on above: Performed By: #### U A ####[place] [phone] Color (U) Colorless Critically abnormal Yellow [facility] Comment on above: Performed By: #### U A ####[place] [phone] Comments SEE COMMENT Normal [facility] Comment on above: Result Comment: Micr oscopic not warranted Performed By: #### U A ####[place] [phone] Glucose Ql (U) Negative Normal [facility] Comment on above: Performed By: #### U A ####[place] [phone] Hemoglobin/Blood,Ur Negative Normal Negative [facility] Comment on above: Performed By: #### U A ####[place] [phone] Ketones Ql (U) Negative Normal [facility] Comment on above: Performed By: #### U A ####[place] [phone] Leukest Negative Normal [facility] Comment on above: Performed By: #### U A ####[place] [phone] Nitrite Ql (U) Negative [facility] Comment on above: Performed By: #### U A ####[place] [phone] pH (Bld) 6.0 Normal 5.0-8.0 [facility] Comment on above: Performed By: #### U A ####[place] [phone] Protein (U) [Mass/Vol] Negative Normal Negative [facility] Comment on above: Performed By: #### U A ####[place] [phone] Specific Kirby, Ur 1.014 Normal 1.005-1.030 [facility] Comment on above: Performed By: #### U A ####[facility] [place], [place] [phone] Urobilinogen Qn (U) Negative Normal Negative [facility] Comment on above: Performed By: #### U A ####[place] [id number] [place], [place] [phone] ALLIED HEALTHon 06-06-2020 ALLIED HEALTH HNO ID: [id number] Author: America Bravo (Lsw) Service: ? Author Type: Counselor Type: Allied Health Filed: 06/06/2020 8:26 PM Note Text: Step 5: Documentation Risk Level : Suicide Risk ( Initial Screening):: High Risk Actual risk determined to be : High Clinical Observation: Depression, Anxiety and SI with a multiple plans Relevant Mental Status Evaluation: SI with multiple plans Methods of Suicide Risk Evaluation: [place] AND Safe-T Brief Evaluation Summary: Warning Signs: [...] Medical Providers: Ricki Vazquez Date 06/06/2020 Psychiatrist utilization review specialist: Name: Dr. Durand Date: 06/06/2020 Time: 6:58pm Other Contact and Role: N/A [facility] ED NOTEon 06-06-2020 ED NOTE HNO ID: [id number] Author: TAN Cardona (Pcna) Service: ? Author Type: Patient Care Bull Gang Supervisor Type: ED Notes Filed: 06/06/2020 8:30 PM Note Text: Pt used bathroom. [facility] ED NOTE HNO ID: [id number] Author: TAN Cardona (Pcna) Service: ? Author Type: Patient Care Bull Gang Supervisor Type: ED Notes Filed: 06/06/2020 7:48 PM Note Text: Pt ate all of food. [facility] ED NOTE HNO ID: [id number] Author: TAN Cardona (Pcna) Service: ? Author Type: Patient Care Bull Gang Supervisor Type: ED Notes Filed: 06/06/2020 7:42 PM Note Text: Pt given meal tray, pizza, fries, apple juice cup and Gatorade. [facility] ED NOTE HNO ID: [id number] Author: TAN Cardona (Pcna) Service: ? Author Type: Patient Care Bull Gang Supervisor Type: ED Notes Filed: 06/06/2020 7:16 PM Note Text: Urine sent to lab. [facility] ED NOTE HNO ID: [id number] Author: TAN Cardona (Pcna) Service: ? Author Type: Patient Care Bull Gang Supervisor Type: ED Notes Filed: 06/06/2020 7:15 PM Note Text: Urine obtained. [facility] ED NOTE HNO ID: [id number] Author: Zara Enciso RN Service: ? Author Type: Registered Nurse Type: ED Notes Filed: 06/06/2020 6:57 PM Note Text: covid swab obtained and walked to lab [facility] ED NOTE HNO ID: [id number] Author: Zara Enciso RN Service: ? Author Type: Registered Nurse Type: ED Notes Filed: 06/06/2020 6:27 PM Note Text: [facility] ED NOTE HNO ID: [id number] Author: TAN Cardona (Pcna) Service: ? Author Type: Patient Care Bull Gang Supervisor Type: ED Notes Filed: 06/06/2020 6:17 PM Note Text: Pt on phone with America from intake. [facility] ED NOTE HNO ID: [id number] Author: Crista Bradshaw RN Service: ? Author Type: Registered Nurse Type: ED Notes Filed: 06/06/2020 6:02 PM Note Text: Sitter at bedside [facility] ED NOTE HNO ID: [id number] Author: Zara Enciso RN Service: ? Author Type: Registered Nurse Type: ED Notes Filed: 06/06/2020 5:48 PM Note Text: MD @ bedside. [facility] ED NOTE HNO ID: [id number] Author: Crista Bradshaw RN Service: ? Author Type: Registered Nurse Type: ED Notes Filed: 06/06/2020 5:48 PM Note Text: Verbal consent obtained by registration from step mother Noa Teresa via phone pt lives with her and pts biological father. Pts biological mother Dimple nava [facility] ED NOTE HNO ID: [id number] Author: Zara BeckhamRn) AGUILA Enciso Service: ? Author Type: Registered Nurse Type: ED Notes Filed: 06/06/2020 10:21 PM Note Text: Pt changed into gown. Clothing and shoes placed in bag and labeled. Placed at nurses' station. Camera on and back door locked. [facility] ED NOTE HNO ID: [id number] Author: Benedict BeckhamRn) AGUILA Freeman Service: ? Author Type: Registered Nurse Type: ED Notes Filed: 06/06/2020 5:35 PM Note Text: Back room door locked. [facility] ED NOTE HNO ID: [id number] Author: Benedict BeckhamRn) AGUILA Freeman Service: ? Author Type: Registered Nurse Type: ED Notes Filed: 06/06/2020 5:34 PM Note Text: Security at bedside to wand pt. [facility] ED NOTE HNO ID: [id number] Author: Crista BeckhamRn) AGUILA Bradshaw Service: ? Author Type: Registered Nurse Type: ED Notes Filed: 06/06/2020 5:29 PM Note Text: Bed: [facility]12 Expected date: 06/06/20 Expected time: 5:12 PM Means of arrival: Latesha Urbina FD Comments: 14 y/o SI - New Directions [facility] ED NOTE HNO ID: [id number] Author: Benedict BeckhamRn) AGUILA Freeman Service: ? Author Type: Registered Nurse Type: ED Notes Filed: 06/06/2020 5:32 PM Note Text: Pt came by EMS for SI. Pt states he had 3 plans. 1- pt states wanted to leave rehab and jump in front of car. 2- leave rehab and go to [place] and steal medications such as Acetaminophen and overdose. 3- leave rehab and go to [facility] facility and jump off of ledge. Pt states that he has had this plan for awhile but pain becoming too much (emotional), states family problems, urges and trauma. [facility] ED PROV NOTEon 06-06-2020 ED PROV NOTE HNO ID: [id number] Author: Ricki Vazquez MD Service: Emergency Medicine Author Type: Physician Type: ED Provider Notes Filed: 06/06/2020 9:55 PM Note Text: ED Provider Note Patient Name: Cameron Teresa SERVICE DATE: 06/06/20 History Patient presents with: Suicidal Ideation HPI 14-year-old male with anxiety and depression here with suicidal ideation. Patient reports that he has been at [facility], drug rehab program. He has not felt like it is helping him. He reports that his depression has been worsening. He has had thoughts of wanting to kill himself. He has 3 different plans (overdosing, jumping from bridge, getting hit in traffic) and reports that it would be easy to follow through with any of these as he is not supervised at [facility]. 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 Negative for COVID19 (SARS CoV2) by PCR. Procedures ED Course / Clinical Impression Clinical Impressions as of Jun 06 2155 Depression, unspecified depression type COVID-19 ruled out by laboratory testing Anxiety COVID-19 test performed per [facility] [place] policy for suspected COVID community exposure. MDM / Disposition / Plan MDM 14-year-old male with anxiety, depression, substance abuse, currently in residential rehab program presenting with suicidal ideation. Patient has no medical complaints and denies any recent drug use. Vitals are age-appropriate and he is tolerating p.o. Rapid Covid and a urine drug (more content not included)... Normal [facility] Expedited [id number] 06-06-20 20 SARS-CoV-2 (COVID-19) RNA JERRELL+probe Ql (Unsp spec) UPPER RESPIRATORY TRACT SWAB Normal [facility] SARS-CoV-2 (COVID-19) RNA JERRELL+probe Ql (Unsp spec) Negative Normal Negative for COVID19 (SARS CoV2) by PCR. [facility] Comment on above: Result Comment: This test has been authorized by FDA under an Emergency Use Authorization (EUA). Toxicology Screen,Uron 06-06 Amphetamines, Urine Negative Normal Negative [facility] Comment on above: Result Comment: Cuto ff threshold at 1000 ng/mL. Barbiturates, Urine Negative Normal Negative [facility] Comment on above: Result Comment: Cuto ff threshold at 200 ng/mL. Benzodiazepines, Ur Negative Normal Negative [facility] Comment on above: Result Comment: Cuto ff threshold at 200 ng/mL. Cannabinoids, Urine Negative Normal Negative [facility] Comment on above: Result Comment: Cuto ff threshold at 50 ng/mL. Cocaine, Urine Negative Normal Negative [facility] Comment on above: Result Comment: Cuto ff threshold at 300 ng/mL. Ethanol, Urine <11 Normal <11 [facility] Opiates, Urine Negative Normal Negative [facility] Comment on above: Result Comment: Cuto ff threshold at 300 ng/mL. Oxycodone, Urine Negative Normal Negative [facility] Comment on above: Result Comment: Cuto [...] on the same specimen through Client Services ([phone]) if contacted within 48 hours of initial testing. [1]Substance Abuse and Mental Health Services Administration (2012). Clinical Drug Testing in Primary Care Technical Assistance Publication Series 32. Department of Health and Human Services, [place], p.10. Phencyclidine, Urine Negative Normal Negative [facility] Comment on above: Result Comment: Cuto ff threshold at 25 ng/mL. Vital Signs Date Time Vital Sign Value Performing Clinician Facility 07-17-2024 15:08-0500 Body height 198.12 cm [facility] 07-17-2024 15:08-0500 Body mass index (BMI) [Ratio] 21.5 kg/m2 [facility] 07-17-2024 15:08-0500 Body temperature 98.4 [degF] [facility] 07-17-2024 15:08-0500 Body weight 84.53 kg [facility] 07-17-2024 15:08-0500 Diastolic blood pressure 81 mm[Hg] [facility] 07-17-2024 15:08-0500 Heart rate 118 /min [facility] 07-17-2024 15:08-0500 Respiratory rate 19 /min [facility] 07-17-2024 15:08-0500 SaO2% (BldA) [Mass fraction] 95 % [facility] 07-17-2024 15:08-0500 Systolic blood pressure 116 mm[Hg] [facility] 11-14-2023 03:30-0400 Diastolic blood pressure 72 mm[Hg] NANOELECTRONICS ENGINEER [employer] Work Phone: [facility] 11-14-2023 03:30-0400 Heart rate 104 /min NANOELECTRONICS ENGINEER Nayla Fur and Mask Work Phone: [facility] 11-14-2023 03:30-0400 Respiratory rate 18 /min NANOELECTRONICS ENGINEER N[employer]la [employer] Work Phone: [facility] 11-14-2023 03:30-0400 SaO2% (BldA) [Mass fraction] 98 % NANOELECTRONICS ENGINEER [employer] Work Phone: [facility] 11-14-2023 03:30-0400 Systolic blood pressure 124 mm[Hg] NANOELECTRONICS ENGINEERMary Jo Dorsey Work Phone: [facility] 11-14-2023 02:12-0400 Body height 198.12 cm NANOELECTRONICS ENGINEERMary Jo Dorsey Work Phone: [facility] 11-14-2023 02:12-0400 Body temperature 98.6 [degF] NANOELECTRONICS ENGINEERMary Jo Dorsey Work Phone: [facility] 11-14-2023 02:12-0400 Body weight 91.9 kg NANOELECTRONICS ENGINEERMary Jo Dorsey Work Phone: [facility] 03-07-2023 16:51-0400 Blood Pressure Location Kenroy Jackson [facility] 03-07-2023 16:51-0400 Body temperature 98.6 [degF] Kenroy Jackson [facility] 03-07-2023 16:51-0400 bodymassindex -0.18 Kenroy Jackson [facility] Comment on above: Result Comment: ^~:!ZScore Source -[facility] 03-07-2023 16:51-0400 Diastolic blood pressure 80 mm[Hg] Kenroy Jackson [facility] 03-07-2023 16:51-0400 Heart rate 91 /min Kenroy Jackson [facility] 03-07-2023 16:51-0400 Height/Length Percentile 99.87 Kenroy Jackson [facility] Comment on above: Result Comment: ^~:!Percentile Source [facility] 03-07-2023 16:51-0400 Height/Length Z-Score 3.01 Kenroy Jackson [facility] Comment on above: Result Comment: ^~:!ZScore [facility] 03-07-2023 16:51-0400 SaO2% (BldA) [Mass fraction] 99 % Kenroy Jackson [facility] 03-07-2023 16:51-0400 Systolic blood pressure 120 mm[Hg] Kenroy Jackson [facility] 03-07-2023 16:51-0400 Weight Percentile 89.21 % Kenroy Jackson [facility] Comment on above: Result Comment: ^~:!Percentile Source [facility] 03-07-2023 16:51-0400 Weight Z-Score 1.24 Kenroy Jackson [facility] Comment on above: Result Comment: ^~:!ZScore [facility] 02-27-2023 11:04-0400 Body height 198.12 cm PHYSICIAN NO [facility] 02-27-2023 11:04-0400 Body temperature 97.6 [degF] PHYSICIAN NO [facility] 02-27-2023 11:04-0400 Body weight 85 kg PHYSICIAN NO [facility] 02-27-2023 11:04-0400 Diastolic blood pressure 71 mm[Hg] PHYSICIAN NO [facility] 02-27-2023 11:04-0400 Heart rate 100 /min PHYSICIAN NO [facility] 02-27-2023 11:04-0400 Respiratory rate 18 /min PHYSICIAN NO [facility] 02-27-2023 11:04-0400 SaO2% (BldA) [Mass fraction] 97 % PHYSICIAN NO [facility] 02-27-2023 11:04-0400 Systolic blood pressure 134 mm[Hg] PHYSICIAN NO [facility] 02-13-2023 10:50-0400 Body temperature 98.4 [degF] Nazario Fine Other [employer] Other 02-13-2023 10:50-0400 Body weight 86.18 kg Nazario Fine Other [employer] Other 02-13-2023 10:50-0400 Diastolic blood pressure 78 mm[Hg] Nazario Fine Other [employer] Other 02-13-2023 10:50-0400 Respiratory rate 18 /min Nazario Fine Other [employer] Other 02-13-2023 10:50-0400 SaO2% (BldA) [Mass fraction] 98 % Nazario Fine Other [employer] Other 02-13-2023 10:50-0400 Systolic blood pressure 134 mm[Hg] Nazario Fine Other [employer] Other 02-06-2023 10:30-0400 Body height 198.12 cm Ana Laura Lacey Other [employer] Other 02-06-2023 10:30-0400 Body mass index (BMI) [Ratio] 21.95 kg/m2 Ana Laura Abhijit Other [employer] Other 02-06-2023 10:30-0400 Body temperature 98.3 [degF] Ana Laura Lacey Other [employer] Other 02-06-2023 10:30-0400 Body weight 86.18 kg Ana Laura Lacey Other [employer] Other 02-06-2023 10:30-0400 Diastolic blood pressure 75 mm[Hg] Ana Laura Lacey Other [employer] Other 02-06-2023 10:30-0400 Respiratory rate 18 /min Ana Laura Lacey Other [employer] Other 02-06-2023 10:30-0400 SaO2% (BldA) [Mass fraction] 97 % Ana Laura Lacey Other [employer] Other 02-06-2023 10:30-0400 Systolic blood pressure 138 mm[Hg] Ana Laura Lacey Other [employer] Other 10-23-2022 12:57-0400 Body temperature 98.4 [degF] PHYSICIAN NO [facility] 10-23-2022 12:57-0400 Diastolic blood pressure 62 mm[Hg] PHYSICIAN NO [facility] 10-23-2022 12:57-0400 Heart rate 89 /min PHYSICIAN NO [facility] 10-23-2022 12:57-0400 Respiratory rate 16 /min PHYSICIAN NO [facility] 10-23-2022 12:57-0400 SaO2% (BldA) [Mass fraction] 98 % PHYSICIAN NO [facility] 10-23-2022 12:57-0400 Systolic blood pressure 125 mm[Hg] PHYSICIAN NO [facility] 10-23-2022 06:00-0400 Body weight 79.8 kg PHYSICIAN NO [facility] 10-21-2022 22:30-0400 Body height 198.12 cm PHYSICIAN NO [facility] 10-21-2022 20:26-0400 Diastolic blood pressure 64 mm[Hg] PHYSICIAN NO [facility] 10-21-2022 20:26-0400 Heart rate 82 /min PHYSICIAN NO [facility] 10-21-2022 20:26-0400 Respiratory rate 16 /min PHYSICIAN NO [facility] 10-21-2022 20:26-0400 SaO2% (BldA) [Mass fraction] 100 % PHYSICIAN NO [facility] 10-21-2022 20:26-0400 Systolic blood pressure 141 mm[Hg] PHYSICIAN NO [facility] 10-21-2022 18:12-0400 Body height 198.12 cm PHYSICIAN NO [facility] 10-21-2022 18:12-0400 Body weight 85.27 kg PHYSICIAN NO [facility] 10-21-2022 18:10-0400 Body temperature 97.9 [degF] PHYSICIAN NO [facility] 10-13-2022 15:35-0400 Body height 198.12 cm PHYSICIAN NO [facility] 10-13-2022 15:35-0400 Body temperature 97.9 [degF] PHYSICIAN NO [facility] 10-13-2022 15:35-0400 Body weight 84.35 kg PHYSICIAN NO [facility] 10-13-2022 15:35-0400 Diastolic blood pressure 75 mm[Hg] PHYSICIAN NO [facility] 10-13-2022 15:35-0400 Heart rate 83 /min PHYSICIAN NO [facility] 10-13-2022 15:35-0400 Respiratory rate 14 /min PHYSICIAN NO [facility] 10-13-2022 15:35-0400 SaO2% (BldA) [Mass fraction] 100 % PHYSICIAN NO [facility] 10-13-2022 15:35-0400 Systolic blood pressure 153 mm[Hg] PHYSICIAN NO [facility] 09-27-2022 14:45-0400 Body height 198.12 cm PHYSICIAN NO [facility] 09-27-2022 14:45-0400 Body temperature 98.9 [degF] PHYSICIAN NO [facility] 09-27-2022 14:45-0400 Body weight 82.3 kg PHYSICIAN NO [facility] 09-27-2022 14:45-0400 Diastolic blood pressure 77 mm[Hg] PHYSICIAN NO [facility] 09-27-2022 14:45-0400 Heart rate 94 /min PHYSICIAN NO [facility] 09-27-2022 14:45-0400 Respiratory rate 16 /min PHYSICIAN NO [facility] 09-27-2022 14:45-0400 SaO2% (BldA) [Mass fraction] 98 % PHYSICIAN NO [facility] 09-27-2022 14:45-0400 Systolic blood pressure 170 mm[Hg] PHYSICIAN JAJA [facility] 08-02-2022 20:13-0500 Body height 187.96 cm MD Clari Owen MD [facility] 08-02-2022 20:13-0500 Body weight 75 kg MD Clari Owen MD [facility] 04-25-2022 16:28-0400 Body height 195.58 cm MD Deo Hamm MD [facility] 04-25-2022 16:28-0400 Body mass index (BMI) [Ratio] 20.9 kg/m2 MD Deo Hamm MD [facility] 04-25-2022 16:28-0400 Body weight 80 kg MD Deo Hamm MD [facility] 11-05-2021 14:21-0400 Body height 198.12 cm Linnea Angulo Iliano Work Phone: [facility] Work Phone: 11-05-2021 14:21-0400 Body mass index (BMI) [Ratio] 22.07 kg/m2 Linnea B Iliano Work Phone: [employer] Work Phone: 11-05-2021 14:21-0400 Body surface area Derived from formula 2.21 m2 Linnea B Iliano Work Phone: [facility] Work Phone: 11-05-2021 14:21-0400 Body weight 86.64 kg Linnea B Iliano Work Phone: [facility] Work Phone: 11-05-2021 14:21-0400 Diastolic blood pressure 62 mm[Hg] Linnea B Iliano Work Phone: [facility] Work Phone: 11-05-2021 14:21-0400 Heart rate 106 /min Linnea Agnulo Iliano Work Phone: [facility] Work Phone: 11-05-2021 14:21-0400 SaO2% (BldA) [Mass fraction] 98 % Linnea Angulo Iliano Work Phone: [facility] Work Phone: 11-05-2021 14:21-0400 Systolic blood pressure 102 mm[Hg] Linnea Angulo Iliano Work Phone: [facility] Work Phone: 11-05-2021 14:0400 91 1 Linnea Angulo Iliano Work Phone: [facility] Work Phone: Comment on above: WPerc 11-05-2021 14:0400 99 1 Linnea Angulo Iliano Work Phone: [facility] Work Phone: Comment on above: SPerc 11-05-2021 14:0400 50 1 Linnea Angulo Iliano Work Phone: [facility] Work Phone: Comment on above: BMIPerc 11-05-2021 14:19-0400 Body height 198.12 cm Linnea Angulo Iliano Work Phone: [facility] Work Phone: 11-05-2021 14:19-0400 99 1 Linnea Angulo Iliano Work Phone: [facility] Work Phone: Comment on above: SPerc 09-23-2020 02:18-0400 BMI (Body Mass Index) 20.9 kg/m2 Wai [employer]erFur [employer] Mask 09-23-2020 02:18-040 Body weight 80 kg Wai Dale [facility] Encounters Encounter Date Encounter Type Care Provider Facility Start: 07-17-2024 End: 07-17-2024 ambulatory [facility] Work Phone: Start: 07-17-2024 End: 07-17-2024 Patient encounter procedure [facility] Work Phone: Start: 05-28-2024 End: 06-13-2024 Telephone encounter Boom [facility] Work Phone: [facility] Comment on above: PT Referral / Verifi cation (Tried to contact to verify coverage and offer scheduling PT angelina Porras.); fu (Contacted and informed receiving PT referral; questioned coverage and he noted he does have insurance. He said he had just gotten X-rays and would like to hold off till they are read. Then he said he will contact to inform of coverage; I then can submit and then schedule out.); FU x2 (Contacted and noted I was calling back to offer PT and he said he had chosen to go thru Pain Management.) Start: 05-14-2024 Non-patient / Non-visit [facility] Work Phone: Start: 05-14-2024 Non-patient / Non-visit [facility] Work Phone: Start: 05-14-2024 Non-patient / Non-visit [facility] Work Phone: Start: 05-01-2024 End: 05-01-2024 ambulatory [facility] Work Phone: Start: 05-01-2024 End: 05-01-[address] [facility] Work Phone: Start: 03-20-2024 End: 03-20-2024 ambulatory [facility] Work Phone: Start: 03-20-2024 End: 03-20-2024 [facility] Work [facility]: Start: 01-17-2024 Non-patient / Non-visit [facility] Work Phone: Start: 11-14-2023 End: 11-14-2023 Emergency department patient visit NANOELECTRONICS ENGINEER Nayla Juliocody Work Phone: [facility] Work Phone: Start: 10-31-2023 End: 10-31-2023 [facility] [facility] Work Phone: Start: 10-31-2023 End: 10-31-2023 Patient encounter procedure [facility] Physician [facility] Work Phone: Start: 10-28-2023 End: 10-28-2023 Emergency department patient visit [facility] Start: 10-06-2023 End: 10-06-2023 ambulatory [facility] Work Phone: Start: 10-06-2023 End: 10-06-2023 Patient encounter procedure [facility] Physician [facility] [place] Work Phone: Start: 09-22-2023 End: 09-22-2023 ambulatory [facility] Work Phone: Start: 09-22-2023 End: 09-22-2023 Patient encounter procedure [facility] Physician [facility] [place] Work Phone: Start: 05-24-2023 End: 05-24-2023 ambulatory Naylashanna Dorsey Other [facility] [employer] Other Start: 05-24-2023 Telephone encounter Naylashanna Dorsey [facility] [place] Start: 05-17-2023 End: 05-17-2023 ambulatory PHYSICIAN NO [facility] Work Phone: Start: 05-17-2023 End: 05-17-2023 Patient encounter procedure PHYSICIAN NO [facility] [place] Work Phone: Start: 05-16-2023 End: 05-16-2023 ambulatory Nayla Easterwood Other [employer] Other Start: 05-16-2023 Telephone encounter Nayla Easterwood [facility] Start: 04-21-2023 End: 04-21-2023 ambulatory Nayla Easterwood Other [employer] Other Start: 04-21-2023 Telephone encounter Nayla Easterwood [facility] Start: 04-04-2023 Telephone encounter Nayla Easterwood [facility] Start: 04-04-2023 End: 04-05-2023 ambulatory JOHN GILES [employer] Other Start: 04-01-2023 End: 04-01-2023 ambulatory Nayla Easterwood Other [employer] Other Start: 04-01-2023 Telephone encounter Nayla Easterwood [facility] Start: 03-29-2023 End: 03-29-2023 ambulatory Nayla Easterwood Other [employer] Other Start: 03-29-2023 Telephone encounter Nayla Easterwood [facility] Start: 03-22-2023 End: 03-22-2023 ambulatory Nayla Easterwood Other [employer] Other Start: 03-22-2023 Telephone encounter Nayla Easterwood [facility] Start: 03-07-2023 End: 03-08-2023 ambulatory Kenroy Jackson Facility:[facility] Start: 03-07-2023 End: 03-07-2023 Patient encounter procedure Kenroy Jackson [facility] Start: 02-27-2023 End: 02-27-2023 Emergency department patient visit PHYSICIAN NO [facility] Work Phone: Start: 02-21-2023 End: 02-21-2023 ambulatory Nayla Dorsey Other [employer] Other Start: 02-21-2023 Telephone encounter Nayla Dorsey [facility] [place] Start: 02-13-2023 End: 02-13-2023 ambulatory Nazario Fine Other [employer] Other Start: 02-13-2023 Office outpatient vi sit 15 minutes Nazario Ethel [facility] Start: 02-10-2023 End: 02-10-2023 ambulatory Ana Laura Lacey Other [employer] Other Start: 02-10-2023 Telephone encounter Ana Laura Lacey [facility] Start: 02-06-2023 Office outpatient ne w 30 minutes Ana Laura Lacey [facility] Start: 02-06-2023 End: 02-06-2023 ambulatory Ana Laura Lacey Other [employer] Other Start: 02-06-2023 End: 02-06-2023 Departed Referred NANOELECTRONICS ENGINEER Ana Laura Lacey Work Phone: [facility] [place] Work Phone: Start: 10-23-2022 ambulatory Ms. Linnea Zapata Facility:[id number] Start: 10-21-2022 End: 10-23-2022 Evaluation and management of inpatient PHYSICIAN NO [facility] Work Phone: Start: 10-13-2022 End: 10-13-2022 Emergency department patient visit PHYSICIAN NO [facility] Work Phone: Start: 10-13-2022 End: 10-13-2022 Patient encounter procedure PHYSICIAN NO [facility] [place] Work Phone: Start: 09-27-2022 End: 09-27-2022 Emergency department patient visit PHYSICIAN NO [facility] Work Phone: Start: 08-02-2022 End: 08-02-2022 ambulatory OTHER PCP Facility:UNKNOWN Start: 04-25-2022 End: 04-25-2022 ambulatory OTHER PCP Facility:UNKNOWN Start: 11-13-2021 AUDIT Linnea root Work Phone: [facility] Work Phone: Start: 11-05-2021 Current tobacco non-user cad cap copd pv dm Linnea Zapata Work Phone: [facility] Work Phone: Start: 11-05-2021 ambulatory Ms. Linnea cheung Benny Facility:[id number] Start: 10-29-2020 End: 10-29-2020 ambulatory [facility] Start: 10-29-2020 Encounter for routin e child health examination without abnormal findings [facility] Start: 10-24-2020 End: 10-24-2020 ambulatory [facility] Start: 08-19-2020 Patient encounter procedure UNKNOWN PROVIDER Facility:[facility] Patient encounter procedure Linnea Zapata Work Phone: [employer] Work Phone: MD Clari Pacheco [facility] Procedures Date Procedure Procedure Detail Performing Clinician Start: 02-06-2023 End: 02-06-2023 Throat culture PHYSICIAN NO FAMILY Start: 09-27-2022 CT of head without contrast PHYSICIAN NO FAMILY Plan of Treatment Date Care Activity Detail Author Start: 03-20-2024 Patient referral [facility] Work Phone: Start: 11-14-2023 Plain chest X-ray XR chest 1V portab le [facility] Start: 11-14-2023 XR Chest Single view [facility] Start: 09-22-2023 Patient referral [facility] Work Phone: Start: 02-06-2023 Throat culture Throat Culture [facility] Start: 10-23-2022 [facility] Start: 10-23-2022 Referral to toddler lead teacher [facility] Start: 10-22-2022 Comprehensive metabo lic 2000 panel - Serum or Plasma [facility] Start: 10-22-2022 End: 10-22-2022 [facility] Start: 10-21-2022 Hospital admission [facility] Start: 10-21-2022 Referral to psychiatrist [facility] Start: 10-21-2022 [facility] Bacteria identified in Throat by Aerobe culture [facility] Patient Education [facility] Work Phone: Patient referral [facility] Work Phone: XR Lumbar spine GE 4 Views [facility] XR Thoracic spine 3 Views [facility] Immunizations Immunization Date Immunization Notes Care Provider Devi barahona 06-30-2021 Pfizer-BioNTech COVI D-19 Vacc 30 MCG/0.3ML Intramuscular Suspension Linnea B Iliano Work Phone: [facility] 06-09-2021 influenza virus vacc ine, unspecified formulation Kenroy Jackson [facility] 06-09-2021 influenza, injectabl e, quadrivalent, preservative free Linnea B Iliano Work Phone: [facility] Work Phone: 06-09-2021 Pfizer-BioNTech COVI D-19 Vacc 30 MCG/0.3ML Intramuscular Suspension Linnea B Iliano Work Phone: [facility] 10-29-2020 meningococcal ACWY vaccine, unspecified formulation Kenroy Jackson [facility] 10-29-2020 meningococcal oligosaccharide (groups A, C, Y and W-135) diphtheria toxoid conjugate vaccine (MCV4O) Linnea Zapata Work Phone: [facility] Work Phone: 08-18-2018 HPV, unspecified formulation Kenroy Jackson [facility] 08-18-2018 Human Papillomavirus 9-valent vaccine Linnea Zapata Work Phone: [facility] Work Phone: 03-07-2018 HPV, unspecified formulation Kenroy Jackson [facility] 03-07-2018 Human Papillomavirus 9-valent vaccine Linnea Zapata Work Phone: [facility] Work Phone: 12-23-2015 Hep A, unspecified formulation Kenroy Jackson [facility] 12-23-2015 meningococcal ACWY vaccine, unspecified formulation Kenroy Jackson [facility] 12-23-2015 meningococcal polysaccharide (groups A, C, Y and W-135) diphtheria toxoid conjugate vaccine (MCV4P); Translations: [Menactra Intramuscular Injectable] Jaxson Starks [facility] Work Phone: Comment on above: Series: 12-23-2015 hepatitis A vaccine, pediatric/adolescent dosage, 2 dose schedule; Translations: [Hepatitis A, Ped/Adol] Jaxson Starks [facility] Work Phone: Comment on above: Series: 11-22-2014 hepatitis A vaccine, unspecified formulation Kenroy Manuel [facility] 11-22-2014 hepatitis A vaccine, pediatric/adolescent dosage, 2 dose schedule; Translations: [Hepatitis A, Ped/Adol] [facility] Work Phone: Comment on above: Series: 11-22-2014 tetanus toxoid, redu anup diphtheria toxoid, and acellular pertussis vaccine, adsorbed; Translations: [Tdap] Jaxson Starks [facility] Comment on above: Series: 05-04-2012 influenza virus vacc ine, unspecified formulation Linnea B Iliano Work Phone: [facility] Comment on above: Series: 05-04-2012 influenza, seasonal, injectable Jaxson Starks [facility] Work Phone: 05-26-2011 influenza virus vacc ine, unspecified formulation Kenroy Abrahampsey [facility] 05-26-2011 influenza, seasonal, injectable Linnea B Iliano Work Phone: [facility] Work Phone: 05-20-2010 influenza virus vacc ine, unspecified formulation Kenroy Jackson [facility] 05-20-2010 influenza, seasonal, injectable Linnea B Iliano Work Phone: [facility] Work Phone: 04-23-2009 influenza virus vacc ine, H1N1, live Kenroy Abrahampsey [facility] 04-23-2009 influenza virus vacc ine, unspecified formulation Kenroy Jackson [facility] 04-23-2009 influenza, seasonal, injectable Linnea B Iliano Work Phone: [facility] Work Phone: 04-23-2009 novel Influenza-H1N1 -09, live virus for nasal administration Linnea B Iliano Work Phone: [facility] Work Phone: 03-25-2009 diphtheria, tetanus toxoids and acellular pertussis vaccine Kenroy Jackson [facility] 03-25-2009 diphtheria, tetanus toxoids and acellular pertussis vaccine, 5 pertussis antigens Jaxson Starks [facility] Work Phone: Comment on above: Series: 03-25-2009 poliovirus vaccine, inactivated Jaxson Starks [facility] Work Phone: Comment on above: Series: 03-25-2009 varicella virus vaccine [facility] Comment on above: Series: 03-22-2009 poliovirus vaccine, unspecified formulation Kenroy Jackson [facility] 06-20-2006 influenza virus vacc ine, unspecified formulation Linnea B Iliano Work Phone: [facility] Comment on above: Series: 06-20-2006 influenza, seasonal, injectable Jaxson Starks [facility] Work Phone: 09-02-2005 measles, mumps and rubella virus vaccine [facility] Comment on above: Series: 06-29-2005 influenza virus vacc ine, unspecified formulation Linnea B Iliano Work Phone: [facility] Comment on above: Series: 06-29-2005 influenza, seasonal, injectable Jaxson Starks [facility] Work Phone: 05-28-2005 influenza virus vacc ine, unspecified formulation Linnea B Iliano Work Phone: [facility] Comment on above: Series: 05-28-2005 influenza, seasonal, injectable Jaxson Starks -[facility] Work Phone: 02-19-2005 poliovirus vaccine, inactivated Jaxson Starks [facility] Work Phone: Comment on above: Series: 02-19-2005 poliovirus vaccine, unspecified formulation Kenroy Abrahampsey [facility] 11-16-2004 diphtheria, tetanus toxoids and acellular pertussis vaccine, unspecified formulation Linnea Adele Zapata Work Phone: [facility] Work Phone: 11-16-2004 DTaP, unspecified formulation Kenroy Abrahampsey [facility] 11-16-2004 haemophilus influenz ae type b vaccine, PRP-OMP conjugate Jaxson Starks [facility] Work Phone: Comment on above: Series: 11-16-2004 pneumococcal conjuga te vaccine, 7 valent Jaxson Starks [facility] Work Phone: Comment on above: Series: 11-06-2004 haemophilus influenz ae type b vaccine, conjugate unspecified formulation Linnea Adele Iliivan Work Phone: [facility] Work Phone: 11-06-2004 Hib, unspecified formulation Kenroy Abrahampsey [facility] 10-27-2004 diphtheria, tetanus toxoids and acellular pertussis vaccine, 5 pertussis antigens Jaxson Starks [facility] Work Phone: Comment on above: Series: 10-26-2004 diphtheria, tetanus toxoids and acellular pertussis vaccine Kenroy Jackson [facility] 08-20-2004 measles, mumps and rubella virus vaccine [facility] Comment on above: Series: 08-20-2004 varicella virus vaccine [facility] Comment on above: Series: 05-22-2004 hepatitis B vaccine, adult dosage Jaxson [facility] Work Phone: Comment on above: Series: 05-22-2004 hepatitis B vaccine, pediatric or pediatric/adolescent dosage Kenroy Jackson [facility] 03-13-2004 diphtheria, tetanus toxoids and acellular pertussis vaccine Kenroy Jackson [facility] 03-13-2004 diphtheria, tetanus toxoids and acellular pertussis vaccine, [address] [facility] Work Phone: Comment on above: Series: 03-13-2004 haemophilus influenz ae type b vaccine, PRP-OMP conjugate [facility] Work Phone: Comment on above: Series: 03-13-2004 pneumococcal conjuga te vaccine, [address] [facility] Work Phone: Comment on above: Series: 01-08-2004 diphtheria, tetanus toxoids and acellular pertussis vaccine Kenroy Jackson [facility] 01-08-2004 diphtheria, tetanus toxoids and acellular pertussis vaccine, 5 pertussis antigens Jaxson Starks [facility] Work Phone: Comment on above: Series: 01-08-2004 haemophilus influenz ae type b vaccine, PRP-OMP [facility] Work Phone: Comment on above: Series: 01-08-2004 pneumococcal conjuga te vaccine, [address] [facility] Work Phone: Comment on above: Series: 01-08-2004 poliovirus vaccine, inactivated Jaxson [facility] Work Phone: Comment on above: Series: 01-08-2004 poliovirus vaccine, unspecified formulation Kenroy Abrahampsey [facility] 2003 diphtheria, tetanus toxoids and acellular pertussis vaccine Kenroy Jackson [facility] 2003 diphtheria, tetanus toxoids and acellular pertussis vaccine, 5 pertussis antigens Jaxson Starks -[facility] Work Phone: Comment on above: Series: 2003 haemophilus influenz ae type b vaccine, PRP-OMP conjugate Jaxsonkiley Starks -[facility] Work Phone: Comment on above: Series: 2003 hepatitis B vaccine, adult dosage Jaxsonkiley Starks -[facility] Work Phone: Comment on above: Series: 2003 hepatitis B vaccine, pediatric or pediatric/adolescent dosage Kenroy Manuel [facility] 2003 pneumococcal conjuga te vaccine, 7 valent Jaxsonkiley Starks -[facility] Work Phone: Comment on above: Series: 2003 poliovirus vaccine, inactivated Jaxson Starks -[facility] Work Phone: Comment on above: Series: 2003 poliovirus vaccine, unspecified formulation Kenroy Abrahampsey [facility] 2003 hepatitis B vaccine, adult dosage Jaxson Morrisff -[facility] Work Phone: Comment on above: Series: 2003 hepatitis B vaccine, pediatric or pediatric/adolescent dosage Kenroy Manuel [facility] Payers Date Payer Category Payer Self-pay 2023 Unknown [id number] 2023 Medicaid [id number] 2019 [facility] [id number] 2019 Medicaid [id number] 2003 Unknown [id number] 93 2003 Unknown [id number] 56 2003 Unknown [id number] 27 2003 Unknown [id number] 27 2003 Unknown [id number] 27 1982 Unknown [id number] 93 1979 Unknown [id number] 56 1965 Unknown [id number] 32 1965 Unknown [id number] 32 Unknown [id number] 51 Unknown [id number] 51 Unknown [place] [employer] MEDICAID Unknown [id number] 31 Social History Date Type Detail Facility Start: 09-23-2020 End: 08-02-2022 Not Known [facility] Lives with grandparent(s) Lives with grandparent(s) [facility] Work Phone: [facility] [place] [facility] [place] Start: 09-27-2022 Tobacco smoking status NHIS Never smoked tobacco (finding) [facility] Start: 2003 Sex Assigned At Male [facility] Start: 10-21-2022 End: 11-14-2023 Tobacco smoking status NHIS Smoker (finding) [facility] Tobacco Current vaping o r e-cigarette use Smokeless Tobacco Use:. Vaping [facility] Tobacco smoking status No Smoking Status Entered [facility] Start: 2003 Sex assigned at Not on file [facility] Start: 07-17-2024 Sex Male (finding) [facility] NEGATED: Highlighted row - - [facility] Work Phone: Goals Date Patient Goal Desired Activity /State Functional Status Date Assessment Result Facility 03-07-2023 Functional Status N/A [facility] 10-21-2022 Functional status Patient at Baseline [facility] Work Phone: NEGATED: Highlighted row Functional performance Functional status health issues are not documented Disease [facility] Work Phone: Mental Status Date Assessment Result Facility 10-21-2022 Cognitive function Cognitive Sta tus Patient at Baseline [facility] Work Phone: NEGATED: Highlighted row Cognitive function [Interpretation] Cognitive status health issues are not documented Disease [facility] Work Phone: Clinical Notes 05-15-2021 to 05-28-2024 Telephone Encounter - An Bridges - 05/28/2024 11:39 AM ESTTelephone Encounter - An Bridges - 05/28/2024 11:39 AM ESTTelephone Encounter - An Bridges - 05/28/2024 11:28 AM EST Note Date & Type Note Facility 05-28-2024 Telephone encounter Note Form atting of this note might be different from the original. Referral dated 05/23/24 [facility] 05-28-2024 Miscellaneous Notes Formattin g of this note might be different from the original. Referral dated 05/23/24 Referral dated 05/01/24. documented in this encounter [facility] 05-28-2024 Telephone encounter Note Form atting of this note might be different from the original. Referral dated 05/01/24. [facility] 05-01-2024 Evaluation note Diagnosis Onset Date Resolution Back pain acute May 01, 2024 11:28am Contact with or suspected exposure to severe acute respiratory syndrome noneactive June 2:59pm [facility] Work Phone: [phone] 246-500911-20-2023 Evaluation note* Encounter Date Diagnosis Assessment Notes Treatment Notes Treatment Clinical Notes Apr, Polydipsia (ICD-10 - R63.1) [employer] Other 10-26-2023 Evaluation note* Encounter Date Diagnosis Assessment Notes Treatment Notes Treatment Clinical Notes Mar, TMJ (temporomandibular joint disorder) (ICD-10 - M26.609) [employer] Other 10-09-2023 Evaluation note* Encounter Date Diagnosis Assessment Notes Treatment Notes Treatment Clinical Notes Mar, TMJ (temporomandibular joint disorder) (ICD-10 - M26.609) [employer] Other 10-06-2023 Evaluation note* Encounter Date Diagnosis Assessment Notes Treatment Notes Treatment Clinical Notes Mar, TMJ (temporomandibular joint disorder) (ICD-10 - M26.609) [employer] Other 10-03-2023 Evaluation note* Encounter Date Diagnosis Assessment Notes Treatment Notes Treatment Clinical Notes Mar, TMJ (temporomandibular joint disorder) (ICD-10 - M26.609) [facility] Other 09-11-2023 Hospital Discharge instructions Patient Education 03/07/2023 18:53:14 Cervical Sprain, Ysck-km-Ayhi Cervical Sprain A cervical sprain is also [...] Follow these instructions at home: Medicines Take gqnd-vvf-zddnlyk and prescription medicines only as told by your doctor. Ask your doctor if the medicine prescribed to you: ?Requires you to avoid driving or using heavy machinery. ?Can cause trouble pooping (constipation). You may need to take these actions to prevent or treat trouble pooping: ?Drink enough fluid to keep your pee (urine) pale yellow. ?Take cbnr-nab-czgvlcs or prescription medicines. ?Eat foods that are [...] provider. Document Revised: 02/20/2020 Document Reviewed: 02/20/2020 [facility] [place] Patient Education 2022 [employer]. 03/07/2023 18:52:56 Temporomandibular Joint Syndrome Temporomandibular Joint [...] Do not chew gum. General instructions Take qelp-awo-aajvpqc and prescription medicines only as told by [...] important. Where to find more information National [place] [employer]io[employer] Research: www.nidcr.nih.gov Contact [...] provider. Document Revised: 01/24/2022 Document Reviewed: 01/24/2022 [facility] [place] Patient Education 2022 [employer]se. Follow Up Care 03/07/2023 14:45:40 With:NONE, XXXX Address: [phone] When: Unknown [facility] 08-20-2023 Evaluation note* Encounter Date [...] 6 months. 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 Given strict return precautions. [employer] Other 08-13-2023 Evaluation note* Encounter Date Diagnosis [...] plan. Jan, Sinus pressure (ICD-10 - J34.89) My1login Other 07-01-2023 History general Narrative - Reported* Type Description Date Surgical History wisdom teeth removal 12/2022 My1login Other 04-29-2023 Consult note Author Wai Alfonso [facility] October 23, 2022 10:23am Note Date/Time October 23, 2022 10: 06am [facility] [address] [place] [address] Cardiology Consult Note Signed Patient: Cameron Teresa MR#: [id number] : 2005 Acct:[id number] Age/Sex: 17 / M Adm Date: 3 Loc: Room: [address] [place] [address] Type: ADM IN Attending Dr: Saqib Brantley DO Copies to: Saqib Brantley, NO FAMILY PHYSICIAN Wai Alfonso MD~ Cardiology HPI History of Present Illness Consult Date: 10/23/22 Reason for Consult: I been asked by the patient's primary medicine service to see Cameron in consultation for opinion and recommendations regarding ST abnormalities on ECG prior to transfer from ICU to [facility] for treatment of depression. HPI: Mr. Teresa is a 17 year old male with no known prior cardiac history but a history of depression (patient's last suicide attempt was at age 14) who was admitted to the ICU from [facility] emergency department yesterday after he presented relating [...] brought immediately to the emergency department here [facility] for evaluation and treatment. From a cardiac [...] cardiac/medical risk assessment/stratification prior to transfer to [facility] for further inpatient treatment of the patient's [...] changes or abnormalities: early repolarization (normal variant) HI, pacemaker, normal Normal tracing: no change compared [...] signed by Wai Alfonso MD> 10/23/22 1023 [facility] Work Phone: 1(340) 305-288404-28-2023 Progress note Author Saqib Brantley [facility] October 22, 2022 6:28pm Note Date/Time October 22, 2022 6:2 9pm [facility] [address] [place] [address] Hospitalist Progress Note Signed Patient: Cameron Teresa MR#: [id number] : 2005 Acct:[id number] Age/Sex: 17 / M Adm Date: 3 Loc: Room: [address] [place] [address] Type: ADM IN Attending Dr: Saqib Brantley [...] Flush Documented By: Saqib Brantley DO 10/22/22 Signed By: <Electronically signed by Saqib Brantley DO> 10/22/22 1825 [facility] Work Phone: 1(531) 258-226804-28-2023 Consult note Author Steve linares [facility] October 22, 2022 10:51am Note Date/Time October 22, 2022 10: 51am [facility] [address] [place] [address] Psychiatry Consult Note Signed Patient: Cameron Teresa MR#: [id number] : 2005 Acct:[id number] Age/Sex: 17 / M Adm Date: 3 Loc: Room: [address] [place] [address] Type : ADM IN Attending Dr: Saqib [...] up with the psychiatric nurse practitioner at [facility] and was staying in sober living. He said he was supposed to start a job at [employer] today and was working 2 years from [employer]. He reports previous psychiatric hospitalization at [facility] at the age of 14 after [...] Appearance Clear Urine pH 8.5 Ur Specific [place] 1.023 Urine Protein Trace H Urine Glucose [...] Color Urine Appearance Urine pH Ur Specific [place] Urine Protein Urine Glucose (UA) Urine Ketones [...] signed by Steve Flood MD> 10/22/22 1051 [facility] Work Phone: 1(130) 416-232204-27-2023 History and physical note Author Saqib Brantley [facility] October 21, 2022 8:50pm Note Date/Time October 21, 2022 8:4 4pm [facility] [address] [place] [address] Hospitalist H&P Signed Patient: Cameron Teresa MR#: [id number] : 2005 Acct:[id number] Age/Sex: 17 / M Adm Date: 3 Loc: Room: [address] [place] [address] Type: ADM IN Attending Dr: Saqib Brantley [...] % (Auto) 14.0 % (.) 10/21/22 18:16 [place] % (Auto) 6.1 % (.) 10/21/22 18:16 Eos % (Auto) 0.4 % (.) 10/21/22 18:16 Baso % (Auto) 0.3 % (.) 10/21/22 18:16 Nucleat RBC Rel Count 0.1 /100 WBC (0-0.5) 10/21/22 18:16 Neut # (Auto) 8.9 x10E3/uL (1.8-7.7) H 10/21/22 18:16 Lymph # (Auto) 1.6 x10E3/uL (1.00-4.8) 10/21/22 18:16 [place] # (Auto) 0.7 x10E3/uL (0.0-0.8) 10/21/22 18:16 [...] pH 8.5 (5.0-9.0) 10/21/22 18:34 Ur Specific [place] 1.023 (1.001-1.030) 10/21/22 18:34 Urine Protein Trace [...] <Electronically signed by Saqib Brantley DO> 10/21/222049 [facility] Work Phone: 1(105) 338-847404-27-2023 History and physical note Author Saqib Brantley [facility] October 21, 2022 8:50pm Note Date/Time October 21, 2022 8:4 4pm [facility] [address] [place] [address] Hospitalist H&P Signed Patient: Cameron Teresa MR#: [id number] : 2005 Acct:[id number] Age/Sex: 17 / M Adm Date: 3 Loc: Room: [address] [place] [address] Type: ADM IN Attending Dr: Saqib Brantley [...] % (Auto) 14.0 % (.) 10/21/22 18:16 [place] % (Auto) 6.1 % (.) 10/21/22 18:16 Eos % (Auto) 0.4 % (.) 10/21/22 18:16 Baso % (Auto) 0.3 % (.) 10/21/22 18:16 Nucleat RBC Rel Count 0.1 /100 WBC (0-0.5) 10/21/22 18:16 Neut # (Auto) 8.9 x10E3/uL (1.8-7.7) H 10/21/22 18:16 Lymph # (Auto) 1.6 x10E3/uL (1.00-4.8) 10/21/22 18:16 [place] # (Auto) 0.7 x10E3/uL (0.0-0.8) 10/21/22 18:16 [...] pH 8.5 (5.0-9.0) 10/21/22 18:34 Ur Specific [place] 1.023 (1.001-1.030) 10/21/22 18:34 Urine Protein Trace [...] <Electronically signed by Saqib Brantley DO> 10/21/222049 [facility] Work Phone: 1(397) 291-343502-06-2023 Hospital Discharge instructions Patient Transfer Information from [...] Primary Care Provider : PCP, Other (PCP) ([facility]) - Medical [facility] 03-01-2022 NoteHNO ID: [id number] Author: Aleksandra Ross MD Service: ? Author [...] radial pulses 2+ (more content not included)... [facility]02-01-2022 NoteHNO ID: [id number] Author: Aleksandra Ross MD Service: ? Author Type: Physician Type: Progress Notes Filed: 08/02/2021 9:41 PM Note Text: INITIAL OUTPATIENT VISIT PEDIATRIC RHEUMATOLOGY SERVICE DATE: 07/28/2021 REFERRING PHYSICIAN: Jaxson Starks [address] [place] [address] PRIMARY CARE PHYSICIAN: Jaxson Starks DO ACCOMPANIED [...] STUDIES: I have perso (more content not included)...[facility]01-21-2022 NoteHNO ID: [id number] Author: Jaxson Starks, DO Service: ? Author Type: Physician Type: Progress Notes Filed: 07/17/2021 7:35 AM Note Text: Patient overdue for well-child visits and/or vaccines. Please call to update PCP if needed and/or schedule an appointment.[facility] 07-08-2021 NoteHNO ID: [id number] Author: Jaxson Starks, DO Service: ? Author [...] SALINE) 0.65 % nasal spray Use 1 [place] in the nose as needed. albuterol HFA [...] Teresa DATE: July 08, 2021 TIME: 1:05 [facility]11-19-2021 NoteHNO ID: [id number] Author: Jaxson Starks, DO Service: ? Author [...] Teresa DATE: May 15, 2021 TIME: 12:10 [facility] complaint+Reason for visit Narrative* Chief Complaint discuss referral to psych Reason for Visit Depression PTSD (post-traumatic stress disorder) [facility] Work Phone: chief complaint+Reason for visit Narrative* Chief Complaint discuss referral to psych depression Reason for Visit Depression PTSD (post-traumatic stress disorder) [facility] Work Phone: chief complaint+Reason for visit Narrative* Chief Complaint discuss referral to psych depression anxiety Reason for Visit Depression PTSD (post-traumatic stress disorder) Restless leg Panic attack due to exceptional stress [facility] Work Phone: chief complaint+Reason for visit Narrative* Chief Complaint discuss referral to psych depression anxiety overdose Reason for Visit Depression PTSD (post-traumatic stress disorder) Restless leg Panic attack due to exceptional stress [facility] Work Phone: Clinical Notes [facility] Consult note Author Chandler Flood [facility] October 22, 2022 10:51am Note Date/Time October 22, 2022 10: 51am [facility] [address] [place] [address] Psychiatry Consult Note Signed Patient: Cameron Teresa MR#: [id number] : 2005 Acct:[id number] Age/Sex: 17 / M Adm Date: 3 Loc: Room: [address] [place] [address] Type : ADM IN Attending Dr: Saqib [...] up with the psychiatric nurse practitioner at [facility] and was staying in sober living. He said he was supposed to start a job at [employer] today and was working 2 years from [employer]. He reports previous psychiatric hospitalization at [facility] at the age of 14 after [...] Appearance Clear Urine pH 8.5 Ur Specific [place] 1.023 Urine Protein Trace H Urine Glucose [...] Color Urine Appearance Urine pH Ur Specific [place] Urine Protein Urine Glucose (UA) Urine Ketones [...] 3 1047 Signed By: <Electronically signed by tSeve Flood MD> 10/22/22 1051 [facility] Work Phone: Consult note Author Wai Alfonso [facility] October 23, 2022 10:23am Note Date/Time October 23, 2022 10: 06am [facility] [address] [place] [address] Cardiology Consult Note Signed Patient: Cameron Teresa MR#: [id number] : 2005 Acct:[id number] Age/Sex: 17 / M Adm Date: 3 Loc: Room: [address] [place] [address] Type: ADM IN Attending Dr: Saqib Brantley DO Copies to: Saqib Brantley, NO FAMILY PHYSICIAN Wai Alfonso MD~ Cardiology HPI History of Present Illness Consult Date: 10/23/22 Reason for Consult: I been asked by the patient's primary medicine service to see Cameron in consultation for opinion and recommendations regarding ST abnormalities on ECG prior to transfer from ICU to [facility] for treatment of depression. HPI: Mr. Teresa is a 17 year old male with no known prior cardiac history but a history of depression (patient's last suicide attempt was at age 14) who was admitted to the ICU from [facility] emergency department yesterday after he presented relating [...] brought immediately to the emergency department here [facility] for evaluation and treatment. From a cardiac [...] cardiac/medical risk assessment/stratification prior to transfer to [facility] for further inpatient treatment of the patient's [...] changes or abnormalities: early repolarization (normal variant) HI, pacemaker, normal Normal tracing: no change compared [...] for adverse cardiac events and should transfer to1 S. as deemed appropriate by his psychiatric [...] signed by Wai Alfonso MD> 10/23/22 1023 [facility] Work Phone: Discharge summary Author Saqib Brantley [facility] October 23, 2022 1:05pm Note Date/Time October 23, 2022 1:0 5pm [facility] [address] [place] [address] Discharge Summary Signed Patient: Cameron Teresa MR#: [id number] : 2005 Acct:[id number] Age/Sex: 17 / M Adm Date: 3 Loc: Room: [address] [place] [address]: Saqib Brantley DO Copies to: [...] [facility] The patient had been at [...] I feel appropriate for discharge to the S unit for continued inpatient psychiatric hospitalization. Physical [...] <Electronically signed by Saqib Brantley DO> 10/23/22 8044 [facility] Work Phone: Evaluation + Plan note [facility] Evaluation + Plan note No data available for this section [facility] Evaluation noteNo assessment information available [facility] Work Phone: Evaluation note* Diagnosis Onset Date Resolution Status Abnormal electrocardiogram finding acute Major depressive disorder, recurrent, moderate acute Medication side effects acut e Suicide attempt by multiple drug overdose acute [facility] Work Phone: Evaluation noteNo InformationNortWell[facility] LIST Other Evaluation note* Diagnosis Onset Date Resolution Status Depression acute PTSD (post-traumatic stress disorder) acute [facility] Work Phone: Evaluation note* Diagnosis Onset Date Resolution Status Depression acute PTSD (post-traumatic stress disorder) acute Restless leg acute Panic attack due to exceptional stress acute [facility] Work Phone: Evaluation note* Diagnosis Onset Date Resolution Status Insomnia acute PTSD (post-traumatic stress disorder) acute Substance abuse in remission acute [facility] Work Phone: History general Narrative - Reported* Type Description Date Medical History Anxiety Medical History PTSD (post-traumatic stress diso rder) Medical History Depression Medical History TMJ (temporomandibular joint dis order) Medical History Substance abuse in remission Surgical History [place] teeth removal 12/2022 [facility] TATE'S LIST Other History of Present illness Narrative* The [...] relationships are appropriate. Eats meals with family. Dcbqij-yaxdp-cqsecbs interactions are normal. Has a supportive adult [...] yo male [email or web address] * Previous PCP: Dr. Lane; 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 * Pt works PT at [employer] * Pt does not exercise/workout * Pt denies abdominal pain * last BM: 3 days ago * when he goes its like rabbit terds * Pt takes docusate and Fiber-Lax daily for the past year 2/2 constipation * Pt tried MiraLax ONCE daily last year and he had liquid stools * Pts mom denies any family hx of colon cancer [facility] Work Phone: Hospital course [facility] Hospital Discharge instructions Additional Instructions Continue current medication Increase oral fluids Change positions carefully while you are dizzy Follow-up with your provider who prescribes the affects your Return to the ER for worsening headache vomiting high fever or any other concerns[facility] Work Phone: Hospital Discharge instructions Additional Instructions Inpatient Psychiatry to manage care: - Full code - Maintain seizure and suicide precautions per protocol -[facility] Work Phone: Hospital Discharge instructionsAmbulatory Orders* Referral to Psychiatry Location: None Selected [facility] Work Phone: Hospital Discharge instructions Additional Instructions Please find help. You have experience with sobriety, so you know that you can get clean. You cannot be your own counselor, though. We are happy to help if you need us. You are too young to , but you take that risk every time you use.[facility] Work Phone: Instructions* Name Dates Details Instructions not documented -[facility] Work Phone: progress note Author Saqib Brantley [facility] October 22, 2022 6:28pm Note Date/Time October 22, 2022 6:2 9pm [facility] [address] [place] [address] Hospitalist Progress Note Signed Patient: Cameron Teresa MR#: [id number] : 2005 Acct:[id number] Age/Sex: 17 / M Adm Date: 3 Loc: Room: [address] [place] [address] Type: ADM IN Attending Dr: Saqib Brantley [...] 26 Signed By: <Electronically signed by Saqib Brantley, > 10/22/22 1828 [facility] Work Phone: Progress note No data available for this section [facility] Summary Purpose Family History No Family [...] 27 1:57pm Hospital Course Note HNO ID: [id number] Author: Jules Munoz Service: Pediatric Psychiatry Author [...] currently in residential substance use treatment at [facility] with several previous psychiatric admissions ([facility] in January 2020 and in twice in 2018, and [facility] in June 2019) admitted to Inpatient Psychiatry for SI with multiple plans (running into traffic, ODing on OTC medications, or jumping off ledge at [facility]). Family history is significant for mother w [...] Care Provider : Jaxson Starks DO (PCP) ([facility]) - Unknown, Physician Chief Complaint * Cameron is here today for NPV previously seen last by his chain saw driver who is Dr. Starks at [facility] in [place]. * Pt reports that for the past [...] disorder) Substance abuse in remission Chief Complaint Admit Date Back Pain May 01, 2024 1 1:28am Amb Documentation May 14, 2024 10:47am Cough, congestion July 17, 2024 2 :59pm Reason for Visit Admit Date Back pain May 01, 2024 1 1:28am Contact with or suspected ex posure to severe acute respiratory syndrome July 17, 2024 2:59pm Reason for Referral Reason *Waiting for appt Please call pt to establish care with primary doctor and to be seen for his chronic neck pain Diagnosis 1 Lymph node enlargeme nt (R59.9) Referral Organization [facility] [place] Referring Provider First Name Nazario Referring Provider Last Name Babatunde Referring Provider Specialty Nurse Vamshi michelle Referred Organization [facility] Referred Provider Nayla Dorsey Referred Address [address] [place] [id number] Referred Provider Specialty Nurse Naye dsouza Referral Priority Routine General Notes Fore, Edith M 023 07:16:48 AM >Received today and sent [...] section and content) DATE CREATED AUTHOR 06/10/2020 [facility] DATE CREATED AUTHOR AUTHOR'S ORGANIZ ATION 09/29/2020 [facility] DATE CREATED AUTHOR AUTHOR'S ORGANIZ ATION 09/29/2020 [facility] DATE CREATED AUTHOR AUTHOR'S ORGANIZ ATION 10/31/2020 [facility] DATE CREATED AUTHOR AUTHOR'S ORGANIZ ATION 11/01/2020 [facility] DATE CREATED AUTHOR AUTHOR'S ORGANIZ ATION 11/23/2020 [facility] DATE CREATED AUTHOR AUTHOR'S ORGANIZ ATION 05/18/2021 [facility] DATE CREATED AUTHOR AUTHOR'S ORGANIZ ATION 09/16/2021 [facility] DATE CREATED AUTHOR AUTHOR'S ORGANIZ ATION 08/25/2022 [facility] DATE CREATED AUTHOR AUTHOR'S ORGANIZ ATION 10/28/2022 [facility] DATE CREATED AUTHOR AUTHOR'S ORGANIZ ATION 04/08/2023 [facility] ical Center DATE CREATED AUTHOR AUTHOR'S ORGANIZ ATION 10/30/2023 [facility] DATE CREATED AUTHOR AUTHOR'S ORGANIZ ATION 07/26/2024 [facility] ys[facility] Group Goals (unrecognized section and [...] Dates Nayla Dorsey APRN Primary Care Pr Frantz jones Provider Active Start: March 20, 2024 End: March 20, 2024 Team Status: Inactive Member Role Status Dates Nalya Dorsey APRN Primary Care Pr ovider, Attending [...] FAMILY Primary Care Provider Active Margarita Schaeffer [facility] Emergency Provider Active Team Status: Inactive Member [...] Active Team Status: Inactive Member Role Status PHYSICIAN NO FAMILY Primary Care Provider Active Mehdi Ornelas PA-C Emergency Provider Active Saqib Brantley DO Admit Provider, Attending Provider Active Arnel Carlisle MD Other Provider Active Sharon Shahid APRN Other Provider Active Chandler Flood MD Other [...] Vega MD Other Provider Active Sherrie Wick [facility] Other Provider Active Soledad Perez MD Other [...] Care Provider Active Start: May 14, 2024 Ibrahima Oswald MD Attending Provider Active St art: May 14, 2024 Team Status: Active Member Role Status Dates Nayla Dorsey APRN Primary Care Provider Active Start: May 14, 2024 Gonzalez Michaels DO Attending Provider Active Sta rt: May 14, 2024 Team Status: Active Member Role Status Dates Nayla Dorsey APRN Primary Care Provider Active Start: May 14, 2024 MADISON Rico Attending Provider Active St art: May 14, 2024 Team Status: Inactive Member Role Status Dates Nayla Dorsey APRN Primary Care Provider Active Start: July 17, 2024 End: July 17, 2024 Aggie Hitchcock APRN Attending Provider Active Start: July 17, 2024 End: July 17, 2024 REASON FOR VISIT (unrecogniz ed section and content) Reason Onset Date Comments PT Referral / Verification 05/28/2024 Tried to contact to verify coverage and offer scheduling PT angelina Porras. fu 05/29/2024 Contacted and in formed receiving PT referral; questioned coverage and he noted he does have insurance. He said he had just gotten X-rays and would like to hold off till they are read. Then he said he will contact to inform of coverage; I then can submit and then schedule out. FU x2 06/13/2024 Contacted and no jayleen I was calling back to offer PT and he said he had chosen to go thru Pain Management. FOR RECORDS PERTAINING TO PATIENTS WHO ARE [...] BE BASED ON THE PRIMARY CLINICAL RECORDS. [facility]. provides no warranty or guarantee of the accuracy or completeness of information in this document.
== END 2025-03-28 11:45 | disposition home or self-care (01) ==
PROVIDERS: PCP Nurse Practitioner Family; Visit Provider Nurse Practitioner Family
DX: R07.9 Chest pain, unspecified (principal); Z13.228 Encounter for screening for other metabolic disorders; R53.83 Other fatigue
CPT/HCPCS: 36415; 80053; 83540; 83550; 85025; 93005

== ENCOUNTER 2025-06-19 23:41 | Emergency (ER) | payer MEDICAID, SELFPAY ==
--- OUTSIDE RECORDS SUMMARY | 2023-08-17 05:07 | XMS_ITS | Continuity of Care Document ---
Author Organization [facility] Address [address] [place] [address] Phone Care Team Providers Care Armature Repairer Name Role Phone Catarina Robison Unavailable Unavailable Medications Medication Instructions Dosage Effective Dates (start - stop) Status Comments Effexor XR 75 mg capsule,extended release take 1 capsule by oral route every day with food 75 MG - Active Effexor XR 150 mg capsule,extended release take 1 capsule by oral route every day 150 MG - Active Procedures Procedure Date Non-Billable Service Non-Billable Service Non-Billable Service Counseling/Therapy 38-52 min Telehealth Care Coordination Counseling/Therapy 53-90 min Telehealth Non-Billable Service OFFICE/OUTPATIENT VISIT, EST Advance Directives Directive Yes / No Effective Date File Name No Information Encounters Encounter Description Practice Location Reason(s) For Visit Diagnoses Date Provider Providers Copied on Encounter [facility], [address] [place], [place], [id number], [place] tel:[phone] [facility] Michael Major depressive disorder, single episode, severe with psychotic features ICD10 Jul- 4 Pepito Elmore. [address] [place] [address], [place], [address], [place]. [facility], [address], [place], [place], [id number], [place] tel: [phone] [facility] [address] Post-traumatic stress disorder, unspecified ICD10 3 Hoang Nolan. [address], [place], [place], [id number], [place]. tel: [phone] [facility], [address], [place], [place], [id number], [place] tel: [phone] [facility] [address] Major depressive disorder, single episode, severe with psychotic features ICD10 3 Hoang Nolan. [address], [place], [place], [id number], [place]. tel: [phone] [facility], [address], [place], [place], [id number], [place] tel: [phone] [facility] [address] Post-traumatic stress disorder, unspecified ICD10 3 Hoang Nolan. [address], [place], [place], [id number], [place]. tel: [phone] [facility], [address], [place], [place], [id number], [place] tel:[phone] [facility] Post-traumatic stress disorder, unspecified ICD10 3 Hoang Nolan. [address], [place], [place], [id number], [place]. tel: [phone] [facility], [address], [place], [place], [id number], [place] tel:[phone] [facility] [address] No Information 3 Chrystal Eduardo. [address] [place] [address], [place], [address], [place]. [facility], [address], [place], [place], [id number], [place] tel:[phone] [facility] Opioid dependence, uncomplicated FFJ37Vlrwvnuw abuse, uncomplicated ECG38Ijyibaqf dependence, uncomplicated TJU54Mkozrhur, hypnotic or anxiolytic dependence, uncomplicated NGD12Vhgky stimulant dependence, uncomplicated KLT57Ynlir stimulant dependence with stimulant-cyrus anup anxiety disorder PDD51Fjaxvfsua gen dependence, uncomplicated MMW94Qjfmqbzl dependence, unspecified, uncomplicated CLD63Qljciepu abuse, in remission GIL26Whgzv depressive disorder, single episode, severe with psychotic features EPM52Kvpk-uiyu matic stress disorder, unspecified ICD10 3 No Information [facility], [address], [place], [place], [id number], [place] tel:[phone] [facility] [address] Major depressive disorder, single episode, severe with psychotic features ICD10 3 Hoang Nolan. [address] [place], [place], [id number], [place]. tel:[phone] [facility], [address] [place], [place], [id number], [place] tel:[phone] [facility] [address] Post-traumatic stress disorder, unspecified ICD10 2 No Information OFFICE/OUTPA TIENT VISIT, [facility], [address], [place], [id number], [place] tel:[phone] [facility] [address] hpi (chief complaint) Major depressive disorder, single episode, severe with psychotic features KXS42Impc-xgdm matic stress disorder, unspecified KRA87Pksfvuts abuse, in remission OMN60Oihajad dependence, uncomplicated SHP28Cscji stimulant dependence with stimulant-cyrus anup anxiety disorder LMJ87Pisyddqga gen dependence, uncomplicated CQY84Gcimaxwf dependence, unspecified, uncomplicated BRK56Jtupuwui, hypnotic or anxiolytic dependence, uncomplicated ZPI76Tzskbzyw dependence, uncomplicated WNB96Bkatsn dependence, uncomplicated ICD10 2 No Information [facility], [address] [place], [place], [id number], [place] tel:+ [phone] [facility] [address] 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 [address] [facility], [place], [place], [id number], [place]. tel: [phone] [facility], [address], [place], [id number], [place] tel: [phone] [facility] [address] Nicotine dependence, unspecified, uncomplicated JIY66Vsbfhyxz abuse, in remission ICD10 0 Luis A Medina. [address] [facility], [place], [place], [id number], [place]. tel: [phone] [facility], [address], [id number], [place] tel: [phone] [facility] [address] Cocaine dependence, uncomplicated ICD10 0 No Information [facility], [address], [place], [id number], [place] tel: [phone] [facility] [address] Other stimulant dependence, uncomplicated IHQ38Jgupskcnp gen dependence, uncomplicated MHD51Edtamxbd dependence, uncomplicated JJK57Jxshfyrz, hypnotic or anxiolytic dependence, uncomplicated YOA34Kagjhi dependence, uncomplicated ICD10 - 0 No Information [facility], [address], [place], [id number], [place] tel: [phone] [facility] [address] Major depressive disorder, single episode, severe with psychotic features ICD10 9 Efe Alvarez. . [facility], [address], [place], [id number], [place] tel: [phone] [facility] [address] Cannabis abuse, uncomplicated QSK49Lbtv-xdat matic stress disorder, unspecified ICD10 8201 9 Soraida Coleman. [address] [place], [place], [id number], [place]. tel:[phone] Family History Family Member Type Diagnosis Age At Onset No Information Payers Payer name Insurance type Covered green party ID Authorsera murphytao(s) Prevention CI [id number] Social History Type Description Quantity Date Captured Comments Sex Male Smoking Status No Information Chief Complaint And Reason For Visit No Information Reason For Referral Reason For Referral No Information Plan Of Treatment Date Type Action Status Goal Depression screening. Due on due Goal Tdap. Due on due Goal Fluoride varnish application . Due on due Goal Influenza vaccine. Due on due Goal Unhealthy drug use screening . Due on due Goal Td vaccine. Due on due Goal Hepatitis C screening. Due o n due Goal HPV (). Due on due Goal Unhealthy drug use screening . Due on due Goal Influenza vaccine. Due on Oc due Goal Hepatitis C screening. Due o n due Goal Td vaccine. Due on due Goal Depression screening. Due on due Goal HPV (). Due on due Goal Tdap. Due on due Goal Fluoride varnish application . Due on due Goal CT-Colonography. Due on due Goal HPV (1st). Due on due Goal Unhealthy drug use screening . Due on due Goal FIT-DNA. Due on due Goal Td vaccine. Due on due Goal Sigmoidoscopy. Due on due Goal Fluoride varnish application . Due on due Goal Colonoscopy. Due on 023 due Goal Depression screening. Due on due Goal FIT. Due on due Goal Influenza vaccine. Due on due Goal FOBT. Due on due Goal Tdap. Due on due Goal Hepatitis C screening. Due o n due Goal Sigmoidoscopy. Due on due Goal Fluoride varnish application . Due on due Goal Depression screening. Due on due Goal CT-Colonography. Due on due Goal Td vaccine. Due on 23 due Goal FIT. Due on due Goal FIT-DNA. Due on due Goal HPV (1st). Due on due Goal Influenza vaccine. Due on due Goal Hepatitis C screening. Due o n due Goal FOBT. Due on due Goal Colonoscopy. Due on 023 due Goal Unhealthy drug use screening . Due on due Goal Tdap. Due on due Goal Influenza vaccine. Due on due Goal FIT. Due on due Goal Depression screening. Due on due Goal Fluoride varnish application . Due on due Goal HPV (1st). Due on due Goal Unhealthy drug use screening . Due on due Goal FOBT. Due on due Goal CT-Colonography. Due on due Goal Sigmoidoscopy. Due on due Goal Hepatitis C screening. Due o n due Goal FIT-DNA. Due on due Goal Colonoscopy. Due on due Goal Tdap. Due on due Goal Influenza vaccine. Due on due Goal Sigmoidoscopy. Due on due Goal Colonoscopy. Due on 023 due Goal Fluoride varnish application . Due on due Goal HPV (1st). Due on due Goal CT-Colonography. Due on due Goal FIT-DNA. Due on due Goal FOBT. Due on due Goal Hepatitis C screening. Due o n due Goal Tdap. Due on due Goal Depression screening. Due on due Goal FIT. Due on due Goal Unhealthy drug use screening . Due on due Goal Depression screening. Due on due Goal HPV (1st). Due on [address]-Colonography. Due on due Goal Tdap. Due on due Goal Colonoscopy. Due on 023 due Goal FIT. Due on due Goal Sigmoidoscopy. Due on due Goal Influenza vaccine. Due on due Goal Fluoride varnish application . Due on due Goal Unhealthy drug use screening . Due on due Goal FIT-DNA. Due on due Goal FOBT. Due on due Goal Hepatitis C screening. Due o n due Goal Depression screening. Due on due Goal Hepatitis C screening. Due o n due Goal Tdap. Due on due Goal HPV (1st). Due on 3 due Goal Unhealthy drug use screening . Due on due Goal Influenza vaccine. Due on due Goal Fluoride varnish application . Due on due Goal HPV (1st). Due on 2 due Goal Unhealthy drug use screening . Due on due Goal Tdap. Due on due Goal Hepatitis C screening. Due o n due Goal Influenza vaccine. Due on due Goal Fluoride varnish application . Due on due Goal Depression screening. Due on due Goal HPV (1st). Due on 2 due Goal Unhealthy drug use screening . Due on due Goal Tdap. Due on due Goal Hepatitis C screening. Due o n due Goal Influenza vaccine. Due on Se due Goal Fluoride varnish application . Due on due Goal Depression screening. Due on due History Of Present Illness Encounter Date Complaint History Of Prese nt Illness hpi Session was cond ucted via telephone due to COVID-19 pandemic. [employer] verification was completed, including confirmation of client's name and date of . Client's location was identified. Risks/benefits of telehealth were discussed with the client, who expressed understanding. Client gave full consent for services rendered. Client was notified of emergency/crisis phone numbers. Client last seen in September 2021. Requesting an effexor increase today. PTSD: feels like he's chronically anxious. Still struggles to be around people, but since [employer] isn't too busy so he handles it ok. Still racing thoughts, restlessness. MDD: motivation lower than he'd like- not even doing things that he likes, like making music. Is making it to work. Some depressed mood, increased sadness. Denies irritability. Sleep varies a lot; feels like he's always tired. Appetite good. Unsure about anhedonia. Denies SI, HI. Polysubstance use DO: still sober but not going to meetings and wants to start going again. Social: got off of probation 2 months ago! Got a job at [employer]. Functional Status Date Functional Assessmen t No Information Instructions Date Instruction Additional Infor mation No Information Assessments Type Assessment Date assessment Major depressive dis order, single episode, severe with psychotic features ICD10 Patient Care Teams Name Effective Dates (start - stop) Status Members No Information
--- OUTSIDE RECORDS SUMMARY | 2024-02-06 08:45 | XMS_ITS | Continuity of Care Document ---
Author Organization [facility] Address [address] [place] [address] Phone Care Team Providers Care Power Plant Engineer Name Role Phone Marni Hardy Unavailable Unavailable [...] Diagnoses Date Provider Providers Copied on Encounter [facility], [address] [place] [address], [id number] , [place] tel:[phone] [facility] Amphetamine type substance use disorder, severe, in early remission 4 Orlando Grider. [address] [place] [address], [id number], [place]. tel:[phone] PSYCH DIAGNOSTIC EVALUATION [facility], [address] [place] [address], [id number] , [place] tel:+ [phone] [facility] Amphetamine type substance use disorder, severe, in early remission 4 Orlando [facility]. [address] [place] [address], [id number], [place]. tel:[phone] [facility], [address] [place] [address], [id number] , [place] tel:+ [phone] Dental Clinic Encounter for screening for dental disorders 3 James Cordova. . tel:+ [phone] OFFICE/OUTPA TIENT VISIT, EST [facility], [address] [place] [address], [id number] , [place] tel:+ [phone] [facility] f/u Hospitalization (chief complaint) HeadacheCervic algia 3 Toward MD Guerrero. [address] [place] [address], [id number] , [place]. tel:[phone] [facility], [address] [place] [address], [id number] , [place] tel: [phone] Dental Clinic EMG (chief complaint) Encounter for screening for dental disorders 3 James Cordova. . tel:+ [phone] Family History Family Member Type Diagnosis Age At Onset No Information Payers Payer name Insurance type Covered democrat ID Andrzejshanna jeffreytao(s) Yadira EUSEBIO [id number] Social History Type Description Quantity Date Captured Comments Sex Male Smoking Status No Information Sexual Orientation Straight or heterosexual Gender Identity Male Chief Complaint And Reason For Visit No Information Reason For Referral Reason For Referral No Information Plan Of Treatment Date Type Action Status Goal Depression screening. Due on due Goal PRAPARE ASSESSMENT. Due on A due Goal Hepatitis C screening. Due o n due Goal Hep A. Due on du e Goal Influenza vaccine. Due on due Goal Tdap Vaccine. Due on 2023 due Goal Unhealthy drug use screening . Due on due Goal RLP. Due on due Goal Tdap. Due on due Goal Hep A. Due on du e Goal Depression screening. Due on due Goal Tdap Vaccine. Due on 2023 due Goal PRAPARE ASSESSMENT. Due on J due Goal Unhealthy drug use screening . Due on due Goal Tdap. Due on due Goal RLP. Due on due Goal Influenza vaccine. Due on Ja due Goal Hepatitis C screening. Due o n due Goal PRAPARE ASSESSMENT. Due on M due Goal Tdap Vaccine. Due on 2022 due Goal Influenza vaccine. Due on Ma due Goal RLP. Due on due Goal Tdap. Due on due Goal Depression screening. Due on due Goal Tobacco cessation counseling completed Goal RLP. Due on due Goal Tdap Vaccine. Due on 2022 due Goal PRAPARE ASSESSMENT. Due on A due Goal Tdap. Due on due Goal Influenza vaccine. Due on Ap due Apr-27-2023 Goal Depression screening. Due on due Goal Hep A. Due on du e Referral Ordered: Physical Therapy (related to Cervicalgia) [id number] Referred To: Physical Therapy Ordered: Referrals: Physical [...]
--- OUTSIDE RECORDS SUMMARY | 2024-10-31 08:00 | XMS_ITS ---
Author Organization [facility] Serv[facility] es Address [address] [place] [address] Care Team Providers Care Lining Vamper Name Role Phone Nato Lawson Primary Care Provider [phone] REASON FOR VISIT 1 month f/u Encounters Encounter Location Date Provider Diagnosis [facility] [address] [place] [address] 2024 Nato Lawson Plan Of Treatment No Information Progress Notes * CAMERON TERESA DDOB:[birth year] (19 yo M)Acc No.[id number]:10/31/2024 Behavioral Health Patient: Jordyn CAMERNO OCONNOR :?LISET ShahPDOB:2005???Age:19 Y???Sex: MaleDate:10/31/2024Phone:[phone]:[address], [place], [place] Subjective: * Chief Complaints: * 1 month f/u * Electronic signature of ALFONSO Shah on 06/20/2025 at 12:30 AM ESTSign off status: Pending * Provider: ALFONSO Bonilla Date: 0 10/31/2024 Generated for Printing/Faxing/eTransmitting on:?06/20/2025 12:30 AM EST
--- OUTSIDE RECORDS SUMMARY | 2024-11-05 11:00 | XMS_ITS ---
Author Organization [facility] Serv es Address [address] [place] [address] Care Team Providers Care [employer] Director Name Role Phone Nato Lawson Primary Care Provider REASON FOR VISIT R/S 10/31 Encounters Encounter Location Date Provider Diagnosis [facility] [address] [place] [address] 2024 Nato Lawson Plan Of Treatment No Information Progress Notes * CAMERON TERESA DDOB:[birth year] (19 yo M)Acc No.[id number]:11/05/2024 Behavioral Health Patient: Jordyn CAMERON OCONNOR :?LISET ShahPDOB:2005???Age:19 Y???Sex: MaleDate:11/05/2024Phone:[phone]:[address], [id number] Subjective: * Chief Complaints: * R /S 10/31 * Electronic signature of ALFONSO Shah on 06/20/2025 at 12:29 AM ESTSign off status: Pending * Provider: ALFONSO Bonilla Date: 0 11/05/2024 Generated for Printing/Faxing/eTransmitting on:?06/20/2025 12:29 AM EST
--- OUTSIDE RECORDS SUMMARY | 2024-11-07 09:45 | XMS_ITS ---
Author Organization [facility] Servic es Address [address] [address] Care Team Providers Care Weighter Name Role Phone Nato Lawson Primary Care [...] a drink containing alcohol in the past year?[id number] Encounters Encounter Location Date Provider Diagnosis [facility] [place] [address] 11/07/2024 Nato Lawson Attention deficit hyperactivity disorder [...] * CAMERON TERESA DDOB:[birth year] (19 yo M)Acc No.[id number]:11/07/2024 Behavioral Health Patient: Jordyn ANASTASIA CAMERON D :?LISET ShahPDOB:2005???Age:19 Y???Sex: MaleDate:11/07/2024Phone:[phone]:[address] , [address], [place], [id number] Subjective: * Chief Complaints: * B H F/U * Medical History: TMJ Medical History Verified * Surgical History: [place] Teeth ? Surgical History verified.? * Hospitalization/Major [...] Bonilla Date: 0 11/07/2024 Generated for Printing/Faxing/eTransmitting on:?06/20/2025 12:30 AM EST
[2025-06-20 00:09] VITALS: BP 170/104; PULSE 96; O2SAT 99; BMI 26.8
--- NOTE | 2025-06-20 00:14 | ECG_ITS ---
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 Measurements Intervals [place] Rate: 89 P: 72 MO: 150 QRS: 98 QRSD: 90 T: 62 QT: 330 QTc: 377 Interpretive Statements 1100 Sinus rhythm 1102 Sinus arrhythmia 7[address] right axis deviation ST ELEV, PROBABLE NORMAL EARLY REPOL PATTERN 9110 normal ECG Compared to ECG 03/28/2025 12:14:22 Incomplete right bundle-branch block no longer present Electronically Signed On 06-20-2025 7:56:33 EST by MIGUEL ÁNGEL GAMEZ M.D.
--- NOTE | 2025-06-20 00:24 | ED_ITS ---
HPI HPI - General Adult General Chief complaint: Shortness of Breath/Dyspnea Stated complaint: CHEST PAINS, CONFUSION, HIGH BLOOD PRESSURE Time Seen by Provider: 06/20/25 00:19 Source: patient Mode of arrival: walk-in History of Present Illness HPI narrative: patient states he relapsed and started using methamphetamines again about one week ago. Has been injecting methamphetamines . States he injected tonight and also took zofran for nausea and ativan. States his chest feels tight and he just does not feel right. Feels confused. No fever states he injected top of his right hand today and now the hand feels numb. Demonstrates full use of the hand Related Data Home Medications ?Medication ?Instructions ?Recorded ?Confirmed cariprazine 1.5 mg capsule 1.5 mg PO DAILY 06/10/23 (Vraylar) venlafaxine 75 mg capsule,extended 225 mg PO DAILY 06/20/25 release 24 hr (Effexor XR) mirtazapine 15 mg tablet 15 mg PO DAILY 06/20/2505/28 Previous Rx's ?Medication ?Instructions ?Recorded ondansetron 4 mg disintegrating 4 mg PO TID PRN nausea and 04/03/24 tablet vomiting #10 tabs ketorolac 10 mg tablet 10 mg PO Q8H PRN pain 2 days #6 04/06/24 tabs Allergies Allergy/AdvReac Type Severity Reaction Status Date / Time No Known Drug Allergies Allergy Verified 06/20/25 00:07 Review of Systems ROS Status of ROS 10 or more systems reviewed and unremark able except as noted in history and below PFSH PFSH Social History Smoking status: Current every day smoker Little interest or pleasure in doing things: not at all Feeling down, depressed, or hopeless: not at all Exam Constitutional Vital Signs, click to edit/add: Last Vital Signs Pulse 75 06/20/25 01:40 Resp 20 06/20/25 01:40 BP 160/88 H 06/20/25 01:40 Pulse Ox 100 06/20/25 01:40 O2 Del Method Room Air 06/20/25 01:40 Common normals: average body habitus, oriented x3, no limitations, healthy appearing, alert and well nourished [facility] Common normals: normocephalic and head/scalp atraumatic Eye Common normals: EOMs intact bilaterally and conjunctivae normal Respiratory Common normals: normal respiratory effort, no retractions, no use of accessory muscles and clear to auscultation bilaterally Cardio Common normals: regular rate, regular rhythm, S1 normal heart sound and S2 normal heart sound GI Common normals: Normal to inspection, nondistended, normoactive bowel sounds present and soft to palpation Extremity Common normals: full ROM Other: bruising both upper ext from recent IV injections. no swelling Neuro Common normals: oriented x3, CN's II-XII intact bilaterally and moves all extremities Psych Mood and affect: anxious Course Vital Signs Vital signs: Vital Signs Pulse Rate 96 H 06/20/25 00:09 Respiratory Rate 20 06/20/25 00:09 Blood Pressure 170/104 H 06/20/25 00:09 Pulse Oximetry 99 06/20/25 00:09 Oxygen Delivery Method Room Air 06/20/25 00:09 Pulse Rate 75 06/20/25 01:40 Respiratory Rate 20 06/20/25 01:40 Blood Pressure 160/88 H 06/20/25 01:40 Pulse Oximetry 100 06/20/25 01:40 Oxygen Delivery Method Room Air 06/20/25 01:40 Medical Decision Making MDM Narrative Medical decision making narrative: presents after use of methamphetamine and ativan. complaint of chest tightness, not feeling right. also numbness dorsum right hand that started after injecting methamphetamine in the hand vein. no obvious deformity of the hand. 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 suspect he injured a peripheral nerve when he injected his hand. workup in the department including troponin, cxray neg. EKG without acute findings. patient feeling better during time of observation and discharged home. Did not require any treatment while here Lab Data Labs: Lab Results 06/20/25 Range/Units 00:25 WBC 8.7 (4.0-11.0) 10^3/uL RBC 5.02 (4.70-6.10) 10^6/uL Hgb 14.4 (14.0-18.0) g/dL Hct 42.1 (42.0-54.0) % MCV 83.9 (80.0-94.0) fL MCH 28.7 (25.9-34.0) pg MCHC 34.2 (29.9-35.2) g/dL RDW 12.9 (11.0-15.0) % Plt Count 236 (150-450) 10^3/uL MPV 10.2 (9.5-13.5) fL Neut % (Auto) 67.2 (43.0-75.0) % Lymph % (Auto) 24.6 (20.5-60.0) % [place] % (Auto) 6.3 (1.7-12.0) % Eos % (Auto) 1.5 (0.9-7.0) % Baso % (Auto) 0.2 (0.2-2.0) % Neut # (Auto) 5.9 (1.4-6.5) 10^3/uL Lymph # (Auto) 2.2 (1.2-3.8) 10^3/uL [place] # (Auto) 0.6 (0.3-0.8) 10^3/uL Eos # (Auto) 0.1 (0.0-0.7) 10^3/uL Baso # (Auto) 0.0 (0.0-0.1) 10^3/uL Abs Immat Gran (auto) 0.02 (0.00-0.03) 10^3/uL Imm/Tot Granulo (auto) 0.2 (0.0-0.5) % Sodium 141 (136-145) mmol/L Potassium 3.7 (3.5-5.1) mmol/L Chloride 104 (98-107) mmol/L Carbon Dioxide 31.7 (21.0-32.0) mmol/L Anion Gap 9.0 BUN 13.0 (7.0-18.0) mg/dL Creatinine 1.22 (0.70-1.30) mg/dL Est GFR ( Amer) >60 (>=60 mL/min/1.73m^2) Est GFR (Non-Af Amer) >60 (>=60 mL/min/1.73m^2) BUN/Creatinine Ratio 10.7 Glucose 122 H (74-106) mg/dL Calcium 9.5 (8.5-10.1) mg/dL Troponin I High Sens 18.6 (4.0-76.1) pg/mL Discharge Plan Discharge Chief Complaint: Shortness of Breath/Dyspnea Clinical Impression: Anxiety, Polysubstance abuse, Paresthesias in right hand Patient Disposition: Home, Self-Care Prescriptions / Home Meds: No Action ondansetron 4 mg tablet,disintegrating 4 mg PO TID PRN (Reason: nausea and vomiting) Qty: 10 0RF ketorolac 10 mg tablet 10 mg PO Q8H PRN (Reason: pain) 2 Days Qty: 6 0RF mirtazapine 15 mg tablet 15 mg PO DAILY venlafaxine [Effexor XR] 75 mg capsule,extended release 24hr 225 mg PO DAILY Vraylar 1.5 mg capsule 1.5 mg PO DAILY Print Language: Singaporean Instructions: Paresthesia (ED), Polysubstance Use Disorder (ED), Anxiety (ED) Referrals: Nayla Dorsey NP [Primary Care Provider] - 1 week
--- NOTE | 2025-06-20 00:28 | XR_ITS ---
The [address] [address] Patient Name: CAMERON TERESA MRN: [id number] date: 2005 Sex: M Assigned Patient Location: ED.MAIN Current Patient Location: ED.MAIN Accession/Order Number: [id number] Exam Date: 06/20/2025 00:40 Report Date: 06/20/2025 17:21 At the request of: ALAN CAN MD Procedure: XR chest 1V Plain film chest Single view HISTORY: Chest tightness COMPARISON: 05/14/2024 FINDINGS: SUPPORT DEVICES: None POSTSURGICAL CHANGES: None HEART: Within normal limits PULMONARY DONA: Within normal limits MEDIASTINUM: Unremarkable LUNGS AND PLEURA: No acute lung process, pleural effusion or pneumothorax identified. BONY STRUCTURES: Intact ADDITIONAL FINDINGS None XR/XR chest 1V IMPRESSION: No acute process. Impression dictated by: Ovidio Jennings M.D. 06/20/2025 5:21 PM Dictation Location: [facility] [employer] [employer] Electronically authenticated by: [id number] Y Date: 06/20/2025 17:21
--- OUTSIDE RECORDS SUMMARY | 2025-06-20 00:29 | XMS_ITS | Clinical Summary ---
Author Organization [facility] Address [id number] [address] [place] [address] Care Team Providers Care Tuber Machine Operator Helper Name Role Phone Unavailable Primary Care Provider Unavailabl e Allergies No known active allergies Medications MedicationSigDispense QuantityRefillsLast FilledStart DateEnd DateStatus venlafaxine (EFFEXOR) 100 mg tablet Take 225 mg by mouth in the morning and 225 mg before bedtime.Active cariprazine (VRAYLAR) 3 mg capsule Take 1 capsule (3 mg total) by mouth in the morning.Active LORazepam (ATIVAN) 1 mg tablet Indications:Panic attack,History of panic attacks,AnxietyTake 1 tablet (1 mg total) by mouth every 12 (twelve) hours as needed (for severe anxiety/panic anderson ck) for up to 5 doses. 5 tablet 4Active Social History Tobacco UseTypesPacks/DayYears UsedDateSmoking Tobacco: Every Day Vaping/E-cigarettesSmokeless Tobacco: Never Tobacco Cessation:Ready to Q uit: Not Asked; Counseling Given: Not Answered Alcohol UseStandard Drinks/WeekCommentsNot Currently0 (1 standard drink = 0.6 oz pure alcohol)Hunger ScreeningAnswerDate RecordedWithin the past 12 months we worried whether our food would run out before we got money to buy more.Never True10/28/2023Within the past 12 months the food we bought just didn't last and we didn't have money to get more.Never True10/28/2023Sex and Gender Information ValueDate RecordedSex Assigned at BirthNot on fileLegal VyhJtkl5110/28/2023 1:20 PM EDTGender IdentityNot on fileSexual OrientationNot on file Last Filed Vital Signs Vital SignReadingTime TakenCommentsBlood Sjtjqmga047/9005 1:30 PM EDT Lcvwz14751/03/2024 1:30 PM YSYIuvjqnfpgqr36.3 ??C (97.3 ??F)10/28/2023 1:30 PM EDTRespiratory Nnyq213210/28/2023 1:30 PM EDTOxygen Lnezdlgopv642%10/28/2023 1:30 PM EDTInhaled Oxygen Concentration--Ctmhcb60.5 kg (195 lb)10/28/2023 1:32 PM EDT Fbfpho725.1 cm (6' 6 )10/28/2023 1:32 PM EDTBody Mass Index22.53010/28/2023 1:32 PM EDT Plan of Treatment Not on file Medical Devices Not on file Insurance
--- OUTSIDE RECORDS SUMMARY | 2025-06-20 00:29 | XMS_ITS | Clinical Summary ---
Author Organization [facility] [place] [address] Care Team Providers Care Logistic Manager Name Role Phone Jaxson Ashraf DO Primary Care Provider Unavaila ble Social History Tobacco UseTypesPacks/DayYears UsedDateSmoking Tobacco: Never AssessedSex and Gender InformationValueDate RecordedSex Assigned at BirthNot on fileLegal Sex Male07/06/2019 9:37 AM ESTGender IdentityNot on fileSexual OrientationNot on file Plan of Treatment Health MaintenanceDue DateLast DoneCommentsTetanus Diphtheria and Pertussis Vaccines (6 - Tdap), 10/27/2004, 03/13/2004, Additional history existsHPV (1 - Male 3-dose series)2018Vision Fvlnqilwf67/21/2019 MenB (1 of 2 - MenB 2-Dose Series Bexsero)2019Hearing Hxrgdwiik94/21/2022 Hepatitis B (1 of 3 - 19+ 3-dose series)3COVID-19 ( - season) 2025FLU (#1)02/25/2025PneumococcalAged Out11/16/2004, 03/13/2004, 01/08/2004, Additional history existsNo longer eligible based on patient's age to complete this icouaRUFRrpjxqixs98/09/2006, 08/20/2004VaricellaCompleted 03/25/2009, 08/20/2004HIBAged OutNo longer eligible based on patient's age to complete this topicHepatitis AAged OutNo longer eligible based on patient's age to complete this topicMenACWYAged OutNo longer eligible based on patient's age to complete this topicNirsevimabAged OutNo longer eligible based on patient's age to complete this topicPolioAged OutNo longer eligible based on patient's age to complete this topicRotavirusAged OutNo longer eligible based on patient's age to complete this topic Care Teams Team MemberRelationshipSpecialtyStart DateEnd Date Jaxson Ashraf DO [address] [address] [place] [address] PCP - GeneralPediatric07/01/19
--- OUTSIDE RECORDS SUMMARY | 2025-06-20 00:29 | XMS_ITS | Clinical Summary ---
Author Organization [facility] Address [address] [place] [address] Phone Care Team Providers Care Accounting Analyst Name Role Phone BennyLinnea Adele WILSONN-SUPERVISOR TUMBLERS Primary Care Provider Social History Tobacco UseTypesPacks/DayYears UsedDateSmoking Tobacco: Never AssessedSex and Gender InformationValueDate RecordedSex Assigned at BirthNot on fileLegal Sex Male05/22/2022 1:10 AM ESTGender IdentityNot on fileSexual OrientationNot on file Last Filed Vital Signs Vital SignReadingTime TakenCommentsBlood Ltsbxkws227/6205/05/2022 2:21 PM EDT Fdego53572 2:21 PM CCUSojimohubcs00.6 ??C (97.9 ??F)05/04/2012 12:00 AM ESTRespiratory Rate--Oxygen Outyyscqbu43%11/05/2021 2:21 PM EDTInhaled Oxygen Concentration--Pwnvtk82.6 kg (191 lb)11/05/2021 2:21 PM DYDVjsipe901.1 cm (6' 6 )11/05/2021 2:21 PM EDTBody Mass Index22.0711/05/2021 2:21 PM EDT Plan of Treatment Health MaintenanceDue DateLast DoneCommentsHIV Auqqixzou41/21/2004Lipid Panel 2003Yearly Adult Lwepoiod29/21/2004Hearing Screening (#1)2007 Meningococcal B Vaccine (1 of 2 - Standard)2019Hepatitis C Screening 2DTaP/Tdap/Td Vaccines (7 - Td or Tdap), 03/25/2009, 10/27/2004, Additional history existsCOVID-19 Vaccine (1 - season)2025Influenza Vaccine (#1)512/, 05/04/2012, 04/23/2009, Additional history existsZoster Vaccines (1 of 2)2053 03/25/2009, 08/20/2004Hepatitis B LetrvoodZzodlqnoc69/26/2004, 2003, 2003HIB FamhwwylIgwdliwck49/23/2005, 03/13/2004, 01/08/2004, Additional history existsPneumococcal Vaccine: Pediatrics and At-Risk Adult Patients Kgajpbzmu73/23/2005, 03/13/2004, 01/08/2004, Additional history existsMMR OuydlzcxZmnbrxvng75/09/2006, 08/20/2004IPV OwwbbxfoOgedptryo41/29/2009, 02/19/2005, 01/08/2004, Additional history existsHepatitis A VaccinesCompleted 12/23/2015, 11/22/2014HPV TjbcpeqnUxnyaqtpl81/22/2019, 03/07/2018Meningococcal WshrclhVsyevduag62/05/2021, 12/23/2015Rotavirus VaccinesAged OutNo longer eligible based on patient's age to complete this topic Care Teams Team MemberRelationshipSpecialtyStart DateEnd Date Linnea Zapata, COLORER MACHINE-SUPERVISOR TUMBLERS PCP - General11/05/21
--- OUTSIDE RECORDS SUMMARY | 2025-06-20 00:30 | XMS_ITS | Clinical Summary ---
Author Organization [facility] Address [address] [place] [address] Care Team Providers Care Prior Authorization Nurse Name Role Phone Unavailable Primary Care Provider Unavailabl e Social History Tobacco UseTypesPacks/DayYears UsedDateSmoking Tobacco: Never AssessedSex and Gender InformationValueDate RecordedSex Assigned at BirthNot on fileLegal Sex Male05/28/2024 11:13 AM ESTGender IdentityNot on fileSexual OrientationNot on file Plan of Treatment Not on file
--- OUTSIDE RECORDS SUMMARY | 2025-06-20 00:30 | XMS_ITS | Patient Health Record ---
Author Organization [employer] [facility] Address [address] [place] [address] Care Team Providers Care Metrology Specialist Name Role Phone Nato Lawson Primary Care Provider [phone] ViolaMeme fernández Unavailable [phone] Pacheco Kerry Unavailable [phone] Allergies No Known Allergies Reason For Referral No Information Medications Medication SIG (Take, Route, Frequency, Duration) Notes Start Date End Date Status Mirtazapine 30 MG Tablet 1 tablet at bed time Orally Once a day; Duration: 30 days 5ActiveVraylar 4.5 MG Capsule1 capsule Orally Once a day; Duration: 30 daysActiveVenlafaxine HCl ER 150 MG Capsule Extended Release 24 Hour1 capsule with food Orally Once a day; Duration: 30 daysActiveLORazepam 0.5 MG Tablet 1 tablet Orally Once a day; Duration: 21 days As needed 07/03/2024Not-Taking/PRNCaplyta 21 MG Capsuleas directed Orally; Duration: 30 days5ActiveAuvelity 45-105 MG Tablet Extended Release1 tablet Orally twice a day (bid); Duration: 30 days08/29/2024Not-Taking/PRNVenlafaxine HCl ER 75 MG Capsule Extended Release 24 Hour1 capsule with food Orally Once a day; Duration: 30 daysActiveALPRAZolam 0.5 MG Tablet 1 tablet Orally three times a day (tid) as needed (prn); Duration: 30 days As needed 5ActiveKetamine HCl 100 MG Trocheas directed SublingualNot-Taking/PRN Vyvanse 70 MG Capsule1 capsule in the morning Orally Once a day; Duration: 30 days5ActiveAdderall 15 MG Tablet1 tablet in afternoon Orally; Duration: 30 days5Active Social History Tobacco Use: Social History Observation Description Date Details (start date - stop date) Unknown Social History GeneralSocial InfoQuestionAnswerNotesDepression Screening (PHQ-9):Little interest or pleasure in doing thingsMore than half the daysFeeling down, depressed, or hopelessMore than half the daysTrouble falling or staying asleep, or sleeping too muchSeveral daysFeeling tired or having little energyNearly every dayPoor appetite or overeatingNot at allFeeling bad about yourself-or that you are a failure or have let yourself or your family downNearly every day Trouble concentrating on things, such as reading the newspaper or watching televisionNearly every dayMoving or speaking so slowly that other people could have noticed. Or the opposite being so fidgetyor restless that you have been moving around a lot more than usualNot at allThoughts that you would be better off , or of hurting yourself in some wayNot at allTotal Jnhuj05Njofnmltnozln Moderate DepressionDrug/Alcohol:Social InfoQuestionAnswerNotesAUDIT-C (Standard) Did you have a drink containing alcohol in the past year?NaWvlffd4Xgcufxocockvtn NegativeTobacco Use:Social InfoQuestionAnswerNotesTobacco Control (Standard) Tobacco use:Uses tobacco in other formsAdditional Findings: Tobacco userUser of moist powdered tobacco Problems Problem Type SNOMED Code ICD Code Onset Dates Problem Status W/U Status Risk Notes Problem Insomnia (143147566) Insomnia, unspecifie d type (G47.00) ActiveconfirmedProblemEpisodic mood disorder (89555315952740)Episodic mood disorder (F39)ActiveconfirmedProblemAttention deficit hyperactivity disorder (213035239)Attention deficit hyperactivity disorder (ADHD), combined type (F90.2)Activeconfirmed Vital Signs Heart Rate 118 /min 12/19/2024 Tchhtxvrsxx17.4 degrees Vtmnczcdhh64/05/7728Tnrwitsq96 %12/19/2024lood pressure ssxptoqit07 mm Hg12/19/20246145Apwkib20 in12/19/2024lood pressure nopjfayd660 mm Hg 12/19/20240054Exkumb856.8 lbs12/19/2024BMI23.55 kg/m212/19/2024 Encounters Encounter Location Date Provider Diagnosis [facility] [address] [place] [address] 07/11/2024 [facility] [place] [address]/Ki SoviakEpisodic mood disorder [address] [place] [address]/08/2024Ki SoviakAttention deficit hyperactivity disorder (ADHD), combined type F90.2FLuc[place] [address] [place] [address]/[facility] [place] [address]/[facility] [place] [address]/09/2024Ki SoviakAttention deficit hyperactivity disorder (ADHD), combined type F90.2F[facility] [place] [address]/[facility] [place] [address]/Ki SoviakEpisodic mood disorder [address] [place] [address]/08/2024 Meme SlingwineAttention deficit hyperactivity disorder (ADHD), combined type F90.2F[facility] [address] [place] [address] 10/17/2024[facility] [place] [address]/10/2024Ki SoviakAttention deficit hyperactivity disorder (ADHD), combined type F90.2Fge[facility] Services [address] [place] [address]/05/2025Kip SoviakAttention deficit hyperactivity disorder (ADHD), combined type F90.2Fge[facility] Health [address] [place] [address]/[facility] Soviak[facility] [address] [place] [address]/02/2025Kip SoviakAttention deficit hyperactivity disorder (ADHD), combined type F90.2Fge[facility] Health [address] [place] [address]/Kip SoviakAttention deficit hyperactivity disorder (ADHD), combined type F90.2FMem[facility]19[place] [address]/[facility]y ltonSouth[facility] [place] [address]/10/2024[facility]GO[facility] [address] [place] [address]/10/2024Kip SoviakInsomnia, unspecified type G47.00 ; Episodic mood disorder F39 and Attention deficit hyperactivity disorder (ADHD), combined type F90.2F [address] [place] [address] 11/21/2024Kip SoviakEpisodic mood disorder F39 ; Attention deficit hyperactivity disorder (ADHD), combined type F90.2 and Insomnia, unspecified type G47.00[facility] [address] [place] [address]/Kip SoviakEpisodic mood disorder F39FHS [address] [place] [address]/Kip SoviakEpisodic mood disorder F39 ; Insomnia, unspecified type G47.00 and Attention deficit hyperactivity disorder (ADHD), combined type F90.2[facility] [place] [address] [place] [address]/02/2025Kip SoviakEpisodic mood disorder F39 and Attention deficit hyperactivity disorder (ADHD), combined type F90.2FAurora HospitalFjzmjav[address] [place] [address]/12/2024Kip Soviak Episodic mood disorder F39 ; Insomnia, unspecified type G47.00 and [...] tremors, muscle spasms, slowness of movement or jerkingof muscles. . Stable . The patient verbalizes [...] consented to the start/continuation of the treatment. 12/19/2024Episodic mood disorder (ICD-10 - F39) Patient will [...] tremors, muscle spasms, slowness of movement or jerkingof muscles. . Stable . The patient verbalizes [...] consented to the start/continuation of the treatment. 12/03/2024ttention deficit hyperactivity disorder (ADHD), combined type (ICD-10 - F90.2)11/05/2024ttention deficit hyperactivity disorder (ADHD), combined type (ICD-10 - F90.2)08/28/2024ttention deficit hyperactivity disorder (ADHD), combined type (ICD-10 - F90.2)07/24/2024Episodic mood disorder (ICD-10 - F39) 07/03/2024Insomnia, unspecified type (ICD-10 - G47.00) Informed consent obtained: YES, we discussed the diagnosis/diagnoses, the treatment options, treatment(s) recommendations vs. no [...] understands to go to the ER if neededif symptoms become severe. Crisis intervention plan was discussed and agreed upon. Patient/Guardian will call 911 in case of emergency. Emergency contact information was provided to the patient/guardian. 07/03/2024Episodic mood disorder (ICD-10 - F39) Patient will [...] tremors, muscle spasms, slowness of movement or jerkingof muscles. . Stable . The patient verbalizes [...] consented to the start/continuation of the treatment. 11/21/2024ttention deficit hyperactivity disorder (ADHD), combined type (ICD-10 [...] to the patient/guardian. . OARRS reviewed . 10/29/2024ttention deficit hyperactivity disorder (ADHD), combined type (ICD-10 - F90.2)07/30/2024ttention deficit hyperactivity disorder (ADHD), combined type (ICD-10 - F90.2)01/16/2025Insomnia, unspecified type (ICD-10 - G47.00) Informed consent obtained: YES, we discussed the diagnosis/diagnoses, the treatment options, treatment(s) recommendations vs. no [...] understands to go to the ER if neededif symptoms become severe. Crisis intervention plan was discussed and agreed upon. Patient/Guardian will call 911 in case of emergency. Emergency contact information was provided to the patient/guardian. 01/16/2025Episodic mood disorder (ICD-10 - F39) Patient will [...] tremors, muscle spasms, slowness of movement or jerkingof muscles. . Stable . The patient verbalizes [...] consented to the start/continuation of the treatment. 12/14/2024ttention deficit hyperactivity disorder (ADHD), combined type (ICD-10 - F90.2)10/03/2024Episodic mood disorder (ICD-10 - F39) Patient will [...] tremors, muscle spasms, slowness of movement or jerkingof muscles. . Stable . The patient verbalizes [...] consented to the start/continuation of the treatment. 5Attention deficit hyperactivity disorder (ADHD), combined type (ICD-10 - F90.2) OARRS reviewed . Informed consent obtained: YES, we discussed the diagnosis/diagnoses, the treatment options, treatment(s) recommended vs. no treatment. We discussed risks and benefits of treatment options, treatmentrecommendations vs. no treatment. . . Patient continues [...] increasing protein as appropriate. Discussed referral to dieticianif problem persists. . . Continue current treatment plan, tolerating meds well, compliant; call for problems . GOALS: Maintain medication regimen Maintain mood stability Maintain anxiety stability Maintain social and interpersonal functioning Maintain attention and hyperactivity . . Currently at low risk for self harm. Denies ongoing feelings of hopelessness. Denies ongoing suicidal ideation, intent or plan in session. . 09/27/2024ttention deficit hyperactivity disorder (ADHD), combined type (ICD-10 - F90.2)09/24/2024Episodic mood disorder (ICD-10 - F39)08/29/2024Insomnia, unspecified type (ICD-10 - G47.00)Increase mirtazapine to 30 mg for increased sleep hygiene.08/29/2024Episodic mood disorder (ICD-10 - F39) [facility] provided the patient to trial for 30 days with follow-up in 1 month to discuss andevaluate. Patient will continue current treatment plan. Patient verbally acknowledges understandinginstructions including medication education and has no further [...] tremors, muscle spasms, slowness of movement or jerkingof muscles. . Stable . The patient verbalizes [...] consented to the start/continuation of the treatment. 08/29/2024ttention deficit hyperactivity disorder (ADHD), combined type (ICD-10 - F90.2) Patient will trial Adderall 10 mg in the afternoon and follow up in 30 days to discuss and evaluate. OARRS reviewed . Informed consent obtained: YES, we discussed the diagnosis/diagnoses, the treatment options, treatment(s) recommended vs. no treatment. We discussed risks and benefits of treatment options, treatmentrecommendations vs. no treatment. . . Patient continues [...] increasing protein as appropriate. Discussed referral to dieticianif problem persists. . . Continue current treatment plan, tolerating meds well, compliant; call for problems . GOALS: Maintain medication regimen Maintain mood stability Maintain anxiety stability Maintain social and interpersonal functioning Maintain attention and hyperactivity . . Currently at low risk for self harm. Denies ongoing feelings of hopelessness. Denies ongoing suicidal ideation, intent or plan in session. . 01/16/2025ttention deficit hyperactivity disorder (ADHD), combined type (ICD-10 [...] to the patient/guardian. . OARRS reviewed . 07/03/2024ttention deficit hyperactivity disorder (ADHD), combined type (ICD-10 - F90.2) OARRS reviewed . Informed consent obtained: YES, we discussed the diagnosis/diagnoses, the treatment options, treatment(s) recommended vs. no treatment. We discussed risks and benefits of treatment options, treatmentrecommendations vs. no treatment. . . Patient continues [...] increasing protein as appropriate. Discussed referral to dieticianif problem persists. . . Continue current treatment plan, tolerating meds well, compliant; call for problems . GOALS: Maintain medication regimen Maintain mood stability Maintain anxiety stability Maintain social and interpersonal functioning Maintain attention and hyperactivity . . Currently at low risk for self harm. Denies ongoing feelings of hopelessness. Denies ongoing suicidal ideation, intent or plan in session. . 11/21/2024Insomnia, unspecified type (ICD-10 - G47.00) Informed consent obtained: YES, we discussed the diagnosis/diagnoses, the treatment options, treatment(s) recommendations vs. no [...] understands to go to the ER if neededif symptoms become severe. Crisis intervention plan was discussed and agreed upon. Patient/Guardian will call 911 in case of emergency. Emergency contact information was provided to the patient/guardian. Plan Of Treatment No Information Insurance Providers Payer Name Payer Address Payer Phone Subscriber Number Group Number Insured Name Patient Relationship to Insured Coverage Start Date Coverage End Date [place] [address] [place] [address] [id number] [place] - patient is the [id number] [employer] [place] MedicaidPO [address] [place] [phone] [id number] - patient is the [facility] HospitalPO [address] [place] [id number] - patient is the [id number] PrimaryPO [address] [place] [id number] - patient is the [id number] Medical (General) History Medical History History ICD Code TMJ Surgical History Surgery Date(Month/Year) [facility] [facility] Hospitalization History Reason Date(Month/Year) psych x6 overdose/poisoning from his meds
[2025-06-20 00:40] LABS: Hematocrit 42.1 % (42.0-54.0); Hemoglobin 14.4 g/dL (14.0-18.0); Immature Granulocytes Abs Auto 0.02 10^3/uL (0.00-0.03); Immature Granulocytes Pct Auto 0.2 % (0.0-0.5); Lymphocytes Absolute Auto 2.2 10^3/uL (1.2-3.8); Mean Corpuscular HGB Conc 34.2 g/dL (29.9-35.2); Mean Corpuscular Hemoglobin 28.7 pg (25.9-34.0); Mean Corpuscular Volume 83.9 fL (80.0-94.0); Platelet Count 236 10^3/uL (150-450); Red Blood Count 5.02 10^6/uL (4.70-6.10); White Blood Count 8.7 10^3/uL (4.0-11.0)
[2025-06-20 00:59] LABS: Anion Gap 9.0; Blood Urea Nitrogen 13.0 mg/dL (7.0-18.0); Calcium 9.5 mg/dL (8.5-10.1); Carbon Dioxide 31.7 mmol/L (21.0-32.0); Chloride 104 mmol/L (98-107); Estimated GFR (African America >60 (>=60 mL/min/1.73m^2); Estimated GFR (Non-African Ame >60 (>=60 mL/min/1.73m^2); Glucose 122 mg/dL (74-106); Potassium 3.7 mmol/L (3.5-5.1); Sodium 141 mmol/L (136-145)
[2025-06-20 01:40] VITALS: BP 160/88; PULSE 75; O2SAT 100
== END 2025-06-20 01:54 | disposition home or self-care (01) ==
PROVIDERS: Emergency Provider Internal Medicine; PCP Nurse Practitioner Family
DX: R20.2 Paresthesia of skin (principal); F41.9 Anxiety disorder, unspecified; F19.10 Other psychoactive substance abuse, uncomplicated; F17.200 Nicotine dependence, unspecified, uncomplicated
CPT/HCPCS: 36415; 71045; 80048; 84484; 85025; 93005; 99283

== ENCOUNTER 2025-06-26 19:33 | Emergency (ER) | payer MEDICAID, SELFPAY ==
--- OUTSIDE RECORDS SUMMARY | 2024-02-06 08:45 | XMS_ITS | Continuity of Care Document ---
Author Organization [facility] Address [address] [place] [address] Phone Care Team Providers Care Hand Drawer In Helper Name Role Phone Marni Hardy Unavailable Unavailable Allergies, Adverse Reactions, Alerts Substance Reaction Status Criticality No Known Allergies Active No Inform ation Medications Medication Instructions Dosage Effective Dates (start - stop) Status Comments Topamax 50 mg tablet take 1 tablet by or al route every day 50 MG - Active indomethacin 25 mg capsule take 1 capsule by oral route 3 times every day with food 25 MG - Active Effexor XR 150 mg capsule,extended release take 1 capsule by oral route every day 150 MG - Active Procedures Procedure Date PSYCH DIAGNOSTIC EVALUATION Intraoral-periapical 1st Film 3 Resin One Surface; Anterior OFFICE/OUTPATIENT VISIT, EST Panoramic Film Oral Hygiene Instruction Limited Oral Eval Advance Directives Directive Yes / No Effective Date File Name No Information Encounters Encounter Description Practice Location Reason(s) For Visit Diagnoses Date Provider Providers Copied on Encounter [facility], [address] [place] [address], [id number] , [place] tel:[phone] [facility] Amphetamine type substance use disorder, severe, in early remission 4 Orlando Grider. [address] [place] [address], [id number], [place]. tel:[phone] PSYCH DIAGNOSTIC EVALUATION [facility], [address] [place] [address], [id number] , [place] tel:+ [phone] [facility] Amphetamine type substance use disorder, severe, in early remission 4 Orlando Christiancy. [address] [place] [address], [id number], [place]. tel:[phone] [facility], [address] [place] [address], [id number] , [place] tel: [phone] Dental Clinic Encounter for screening for dental disorders 3 James Cordova. . tel:+ [phone] OFFICE/OUTPA TIENT VISIT, EST [facility], [address] [place] [address], [id number] , [place] tel:+ [phone] [facility] f/u Hospitalization (chief complaint) HeadacheCervic algia 3 Toward MD Guerrero. [address] [place] [address], [id number] , [place]. tel:[phone] [facility], [address] [place] [address], [id number] , [place] tel: [phone] Dental Clinic EMG (chief complaint) Encounter for screening for dental disorders 3 James ANDREW Tasha. . tel:+ [phone] Family History Family Member Type Diagnosis Age At Onset No Information Payers Payer name Insurance type Covered republican ID Andrzejshanna house(s) Yadira EUSEBIO [id number] Social History Type Description Quantity Date Captured Comments Sex Male Smoking Status No Information Sexual Orientation Straight or heterosexual Gender Identity Male Chief Complaint And Reason For Visit No Information Reason For Referral Reason For Referral No Information Plan Of Treatment Date Type Action Status Goal Tdap. Due on due Goal RLP. Due on due Goal Unhealthy drug use screening . Due on due Goal Tdap Vaccine. Due on 2023 due Goal Influenza vaccine. Due on due Goal Hep A. Due on du e Goal Hepatitis C screening. Due o n due Goal PRAPARE ASSESSMENT. Due on A due Goal Depression screening. Due on due Goal Hep A. Due on du e Goal Hepatitis C screening. Due o n due Goal Influenza vaccine. Due on Ja due Goal RLP. Due on due Goal Tdap. Due on due Goal Unhealthy drug use screening . Due on due Goal PRAPARE ASSESSMENT. Due on J due Goal Tdap Vaccine. Due on 2023 due Goal Depression screening. Due on due Goal Depression screening. Due on due Goal PRAPARE ASSESSMENT. Due on M due Goal RLP. Due on due Goal Influenza vaccine. Due on due Goal Tdap Vaccine. Due on 2022 due Goal Tdap. Due on due Goal Tobacco cessation counseling completed Goal Tdap Vaccine. Due on 2022 due Goal PRAPARE ASSESSMENT. Due on A due Goal Tdap. Due on due Goal RLP. Due on due Goal Depression screening. Due on due Goal Influenza vaccine. Due on Ap due Goal Hep A. Due on du e Referral Ordered: Physical Therapy (related to Cervicalgia) [id number] Referred To: Physical Therapy Ordered: Referrals: Physical Therapy ordered History Of Present Illness Encounter Date Complaint History Of Prese nt Illness f/u Hospitalization Presents for f/u hospitalization and to establish care. Pt was hospitalized for suicide attempt, took Effexor and Cymbalta. Alexandre Dominguez RNas above, was in hospital for OD attempt of taking 20 each of effexor and cymblata. states he was having neck stiffness and headaches so went to ER twice an they thought it might be a side effect so went off it and mood got worse. ended up in hospital, has apt with [facility] for psych. has been having 5 weeks of headaches and denies any prior hx of this. 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 uses OTC pain relievers (Tylenol and Motrin and Excedrin) and they help temp. in addition to HARRELL does also get neck muscle tightness. denies injury recently, but tried to hand self at age 14 and was dx with a concussion. MD CHANI. EMG Functional Status Date Functional Assessmen t No Information Instructions Date Instruction Additional Infor mation No Information Assessments Type Assessment Date assessment Amphetamine type sub stance use disorder, severe, in early remission impression Patient reported yakelin t he started using substances at the age of 12 and used an extensive number of different substance since that time. He reported that he has been sober for 18 months. Patient Care Teams Name Effective Dates (start - stop) Status Members No Information
--- OUTSIDE RECORDS SUMMARY | 2024-10-31 08:00 | XMS_ITS ---
Author Organization [facility] Servic es Address [address] [place] [address] Care Team Providers Care It Systems Analyst Consultant Name Role Phone Nato Lawson Primary Care Provider [phone] REASON FOR VISIT 1 month f/u Encounters Encounter Location Date Provider Diagnosis [facility] [address] [place] [address] 2024 Nato Lawson Plan Of Treatment No Information Progress Notes * CAMERON TERESA DDOB:[birth year] (19 yo M)Acc No.[id number]:10/31/2024 Behavioral Health Patient: Jordyn CAMERON OCONNOR :?LISET ShahPDOB:2005???Age:19 Y???Sex: MaleDate:10/31/2024Phone:[phone]:[address], [place], [place] Subjective: * Chief Complaints: * 1 month f/u * Electronic signature of ALFONSO Shah on 06/26/2025 at 08:57 PM ESTSign off status: Pending * Provider: ALFONSO Bonilla Date: 0 10/31/2024 Generated for Printing/Faxing/eTransmitting on:?06/26/2025 08:57 PM EST
--- OUTSIDE RECORDS SUMMARY | 2024-11-05 11:00 | XMS_ITS ---
Author Organization [facility] Serv es Address [address] [address] Care Team Providers Care Supervising Nurse Name Role Phone Nato Lawson Primary Care Provider REASON FOR VISIT R/S 10/31 Encounters Encounter Location Date Provider Diagnosis [facility] [address] [place] [address] 2024 Nato Lawson Plan Of Treatment No Information Progress Notes * CAMERON TERESA DDOB:[birth year] (19 yo M)Acc No.[id number]:11/05/2024 Behavioral Health Patient: Jordyn CAMERON OCONNOR :?LISET ShahPDOB:2005???Age:19 Y???Sex: MaleDate:11/05/2024Phone:[phone]:[address], [address], [id number] Subjective: * Chief Complaints: * R /S 10/31 * Electronic signature of ALFONSO Shah on 06/26/2025 at 08:57 PM ESTSign off status: Pending * Provider: ALFONSO Bonilla Date: 0 11/05/2024 Generated for Printing/Faxing/eTransmitting on:?06/26/2025 08:57 PM EST
--- OUTSIDE RECORDS SUMMARY | 2024-11-07 09:45 | XMS_ITS ---
Author Organization [facility] Servic es Address [address] [place] [address] Care Team Providers Care Braid Maker Name Role Phone Nato Lawson Primary Care Provider Allergies No Known Allergies REASON FOR VISIT F/U Medications Medication SIG (Take, Route, Frequency, Duration) Notes Start Date End Date Status ALPRAZolam 0.5 MG Tablet 1 tablet Orally three times a day (tid) as needed (prn); Duration: 30 days As needed 5ActiveVraylar 4.5 MG Capsule1 capsule Orally Once a day; Duration: 30 daysActiveAuvelity 45-105 MG Tablet Extended Release1 tablet Orally twice a day (bid); Duration: 30 days5ActiveMirtazapine 30 MG Tablet1 tablet at bedtime Orally Once a day; Duration: 30 days5ActiveVenlafaxine HCl ER 150 MG Capsule Extended Release 24 Hour1 capsule with food Orally Once a day; Duration: 30 daysActiveVenlafaxine HCl ER 75 MG Capsule Extended Release 24 Hour 1 capsule with food Orally Once a day; Duration: 30 daysActiveKetamine HCl 100 MG [place] directed SublingualActiveVyvanse 70 MG Capsule1 capsule in the morning Orally Once a day; Duration: 30 days5ActiveLORazepam 0.5 MG Tablet 1 tablet Orally Once a day; Duration: 21 days As needed 07/03/2024Not-Taking/PRNAdderall 15 MG Tablet1 tablet in afternoon Orally; Duration: 30 days5Active Social History Social History Drug/Alcohol:Social InfoQuestionAnswerNotesAUDIT-C (Standard)Did you have a drink containing alcohol in the past year?UkDpcdka2YbhhazeizspporNcuxkkly Encounters Encounter Location Date Provider Diagnosis [facility] [place] [address] 11/07/2024 Nato Lawson Attention deficit hyperactivity disorder (ADHD), combined type F90.2 and Episodic mood disorder F39 Assessments Encounter Date Diagnosis (ICD Code) Assessment Notes Treatment Notes Treatment Clinical Notes Section Notes 11/07/2024 Attention deficit hy peractivity disorder (ADHD), combined type (ICD- 10 - F90.2) 11/07/2024Episodic mood disorder (ICD-10 - F39) Plan Of Treatment Medication Medication Name Sig Start Date Stop Date Notes ALPRAZolam 0.5 MG Tablet 1 tablet Orally three times a day (tid) as needed (prn); Duration: 30 days 10/17/2024 Vraylar 4.5 MG Capsule1 capsule Orally Once a day; Duration: 30 daysVyvanse 70 MG Capsule1 capsule in the morning Orally Once a day; Duration: 30 days 10/29/2024dderall 15 MG Tablet1 tablet in afternoon Orally; Duration: 30 days 11/06/2024 Progress Notes * CAMERON TERESA DDOB:[birth year] (19 yo M)Acc No.[id number]:11/07/2024 Behavioral Health Patient: Jordyn ANASTASIA CAMERON D :?LISET ShahPDOB:2005???Age:19 Y???Sex: MaleDate:11/07/2024Phone:[phone]:[address] , [address], [place], [id number] Subjective: * Chief Complaints: * B H F/U * Medical History: TMJ Medical History Verified * Surgical History: [place] Teeth ? Surgical History verified.? * Hospitalization/Major Diagno stic Procedure: psych x6 ? overdose/poisoning from his meds ? Hospitalization Verified.? * Family History: F ather: . M other: alive. P aternal Grand Father: unknown. P aternal Grand Mother: unknown. M aternal Grand Father: alive. M aternal Grand Mother: alive. 3 brother(s) , 1 sister(s) . 1 son(s) . . F amily History Verified.. * Social History: ???Drug/Alcohol:?AUDIT-C (Standard)?Did you have a drink containing alcohol in the past year??No ?Points?0 ?Interpretation?Negative ??? * Medications: T akingKetamine HCl 100 MG Jenifer as directed Sublingual Venlafaxine HCl ER 75 MG Capsule Extended Release 24 Hour 1 capsule with food Orally Once a day Venlafaxine HCl ER 150 MG Capsule Extended Release 24 Hour 1 capsule with food Orally Once a day Mirtazapine 30 MG Tablet 1 tablet at bedtime Orally Once a day Auvelity 45-105 MG Tablet Extended Release 1 tablet Orally twice a day (bid) Vraylar 4.5 MG Capsule 1 capsule Orally Once a day ALPRAZolam 0.5 MG Tablet 1 tablet Orally three times a day (tid) as needed (prn) As neededVyvanse 70 MG Capsule 1 capsule in the morning Orally Once a day Adderall 15 MG Tablet 1 tablet in afternoon Orally Taking Ketamine HCl 100 MG Jenifer as directed Sublingual Taking Venlafaxine HCl ER 75 MG Capsule Extended Release 24 Hour 1 capsule with food Orally Once a day Taking Venlafaxine HCl ER 150 MG Capsule Extended Release 24 Hour 1 capsule with food Orally Once a day Taking Mirtazapine 30 MG Tablet 1 tablet at bedtime Orally Once a day Taking Auvelity 45-105 MG Tablet Extended Release 1 tablet Orally twice a day (bid) Taking Vraylar 4.5 MG Capsule 1 capsule Orally Once a day Taking ALPRAZolam 0.5 MG Tablet 1 tablet Orally three times a day (tid) as needed (prn) As neededTaking Vyvanse 70 MG Capsule 1 capsule in the morning Orally Once a day Taking Adderall 15 MG Tablet 1 tablet in afternoon Orally Not-Taking/PRNLORazepam 0.5 MG Tablet 1 tablet Orally Once a day As neededNot-Taking/PRN LORazepam 0.5 MG Tablet 1 tablet Orally Once a day As needed * Allergies: N .K.D.A.yesAllergies Verified. Assessment: * Assessment: 1.?Attention deficit hyperactivity disorder (ADHD), combined type - F90.2???2.&# 160;Episodic mood disorder - F39??? Plan: * Treatment: Refill Adderall Tablet, 15 MG, 1 tablet in afternoon, Orally, 30 days, 30, Refills 0;?Refill Vyvanse Capsule, 70 MG, 1 capsule in the morning, Orally, Once a day, 30 days, 30 Capsule, Refills 0. ?2.?Episodic mood disorder? Refill Vraylar Capsule, 4.5 MG, 1 capsule, Orally, Once a day, 30 days, 30 Capsule, Refills 0.??3.?Others? Refill ALPRAZolam Tablet, 0.5 MG, 1 tablet, Orally, three times a day (tid) as needed (prn) As needed, 30 days, 90, Refills 0.?? * Electronic signature of ALFONSO Shah on 06/26/2025 at 08:57 PM ESTSign off status: Pending * Provider: ALFONSO Bonilla Date: 0 11/07/2024 Generated for Printing/Faxing/eTransmitting on:?06/26/2025 08:57 PM EST
--- OUTSIDE RECORDS SUMMARY | 2025-06-20 00:27 | XMS_ITS | Continuity of Care Document ---
Author Organization [facility] Address [address] [place] [address] Phone Allergies, Adverse Reactions, Alerts Allergen Type Severity Reaction Last Updated Verified Status No Known Allergies Allergy Unknown May 16, 2025 1:52pmYesActive Social History Smoking Status Status Start Date End Date Date of Observa tion Smokes tobacco daily (finding) May 16, 2025 2:06pm Observation Status Observation Response Date of Response Legal Sex Male (finding) Sex Assigned At BirthMaleFebruary 2005 Family History Relationship Condition Age at Onset Recorded Date/T sameer grandparent Hypertension Unknown Malignant neoplasmUnknownmotherDepressionUnknownAnxietyUnknownBorderline personality disorderUnknownChronic mental illnessUnknown Problems Active Problems Problem Diagnosis/Recorded Date Onset Date Status C omments Opiate addiction March 26, 2025 1:14pm Unknown Ac tive Benzodiazepine abuseSeptember 2024 1:14pmUnknownActiveInsomniaSeptember 2023 11:30amUnknownActivePTSD (post-traumatic stress disorder)October 13, 2022 3:03pmUnknownActiveNicotine dependence, other tobacco product, uncomplicatedMarch 2023 2:23pmUnknownActiveVision changesNovember 2024 10:59amUnknownActiveSubstance abuseSeptember 2024 1:14pmUnknownActive AnxietyApril 2022 3:03pmUnknownActiveDepressionApril 2022 3:03pm UnknownActiveOverdoseMay 2023 1:68wz5007WjegpbQpfik disorderSeptember 2024 1:10pmUnknownActiveRestless legApril 2023 10:24amUnknownActive TMJ (temporomandibular joint disorder)September 21, 2023 2:23pmUnknownActive Bipolar depressionSeptember 2024 1:11pmUnknownActiveMajor depressive disorder, recurrent, moderateNovember 2024 3:46pmUnknownActiveAbnormal EKG May 20, 2025 10:58amUnknownActiveMethamphetamine abuseSeptember 2024 1:14pmUnknownActiveRectal bleedSeptember 2023 11:36amUnknownActive ADHDSeptember 2024 1:10pmUnknownActivePanic attack due to exceptional stressMay 2023 1:56pmUnknownActiveBlack tarry stoolsNovember 2024 10:58amUnknownActiveAcid refluxSeptember 2023 11:36amUnknownActiveChest painOctober 2024 11:49amUnknownActiveConstipationOctober 2024 11:51am UnknownActiveInactive/Resolved Problems Problem Diagnosis/Recorded Date Onset Date Status C omments Suicide attempt by multiple drug overdose October 21, 2022 10:16pm Unknown Resolved Problem List clean-up per request of Phys. EHR Cmte Medication side effects September 27, 2022 4:24pm Unknown Resolved Problem L ist clean-up per request of Phys. EHR Cmte [place] [facility] April 05, 2025 12:45pm Unknown Resolved Viral gastroenteritisJanuary 2024 3:54pmUnknownResolvedDizzinessApril 2022 4:24pmUnknownResolvedProblem List clean-up per request of Phys. EHR CmteTMJ arthralgiaSeptember 2022 10:14amUnknownResolvedBack painNovember 2023 11:51amUnknownResolvedOtitis externaApril 2022 3:19pmUnknownResolved Problem List clean-up per request of Phys. EHR CmteMajor depressive disorder, recurrent, moderateApril 2022 9:51amUnknownResolvedProblem List clean-up per request of Phys. EHR CmteAbnormal electrocardiogram findingApril 2022 9:21amUnknownResolvedProblem List clean-up per request of Phys. EHR CmteOpiate overdoseMay 2023 2:49amUnknownResolvedSubstance abuse in remissionMarch 2023 2:23pmUnknownResolved Medications Medication Status Dose Units Route Directions Qty Days Refills S tart Date Stop Date End Date Reason(s) Instructions Adherence Lorazepam 1 mg tablet Discontinued 1 MG PO Daily as needed for anxiety 15 15 0 November 09, 2023 7:59am November 09, 2023 9:55amPanic state as acute reaction to exceptional (gross) stress Panic disorder [episodic paroxysmal anxiety] Acute stress reactionLorazepam 1 mg wsxfspYpxjevdimlfn4PXYQLwqlw as needed for aolzocn00653Bno 15th, 2024 9:55amSeptember 2023 11:05amPanic state as acute reaction to exceptional (gross) stress Panic disorder [episodic paroxysmal anxiety] Acute stress reactionVenlafaxine 37.5 mg capsule,extended release 24hr Discontinued0.ROUTE.EPFQVVO996Yen 2023 12:58pmSeptember 2023 11:05am Take 1 capsule by mouth once dailyPrednisone 20 mg krwnvjXkefpectxwzq8ZRQedoe645 0May 10, 2024 1:17pmJanuary 2024 2:59pm3 tabs x 3 days, 2 tabs x 3 days, 1 tab x 3 daysTizanidine 4 mg drrizuDaaexrtjryyo8NDDZAzlhe at bedtime as needed for muscle oqwawchnni49489Rqpwyeth 14th, 2024 1:17pmNovember 2023 6:04pmTizanidine (Zanaflex) 6 mg rnbekbqWjpnaezewokg1OIAEMvdmd at zukfxst79875 May 23, 2024 12:00amDecember 2023 10:06amTizanidine 6 mg capsule Discontinued0.ROUTE.FSLZCXQ944Bylqerzk 2023 10:06amSeptember 2024 1:08pmTAKE 1 CAPSULE DAILY AT BEDTIME FOR 21 DAYSOfloxacin 0.3 % drops Kadwqprqvrnd6OKXIQRRV-TWRHWLaxva xescs6110Ollzb 2022 11:00pmApril 2022 10:01pmVenlafaxine (Effexor Xr) 75 mg Capsule,Extended Release 24hr Dxjwlnvgxjvp06ZHJZSycda morningApr2022 11:00pmApril 2022 3:03pm Duloxetine 20 mg capsule,delayed release(DR/EC)Osphfjrnylwn34OOWTJgdbbKcdjh 26th, 2023 11:00pmApr2022 11:56amAcetaminophen (Tylenol) 325 mg Tablet Keqdswqajfht949EAPGP38G as needed for PainApril 2022 11:00pmApril 2022 11:56amNaproxen 500 mg prrbwoImxtpnxeizsy294RRPPSgudd daily as needed for PainApril 2022 11:00pmApril 2022 11:56amNaproxen 500 mg tablet Ysxmjadjuqyn498YRGGAbctc daily with mealsApril 2022 11:00pmMay 2022 10:22amDuloxetine 20 mg capsule,delayed release(DR/EC)Russtrlqkibx64IIBHDwrdu October 22, 2022 11:00pmMay 2022 10:22amTrazodone 50 mg TabletDiscontinued 50MGPODaily at bedtime as needed for Iigagjfr744Mfv 2022 11:00pmSeptember 2022 10:04amNicotine 21 mg/24 hr Patch 24 OettDuacnwsulkvv0VLDOBRGWSXQFJN Clfxw387Kcb 2022 11:00pmSeptember 2022 10:04amVenlafaxine (Effexor Xr) 150 mg capsule,extended release 89gmRvhgljfvcpaz728FKUCErusp559Yux 2022 11:00pmSeptember 2022 10:03amVenlafaxine (Effexor Xr) 150 mg capsule,extended release 70bcOvvvcnduwqai009LWLWLugesUtqfkoouj 3rd, 2023 10:03am September 21, 2023 2:29pmLurasidone 20 mg tabletDiscontinuedMGSeptember 2022 11:00pmMarch 2023 2:28pmIbuprofen 800 mg njnjdhQpsfqrialjsb657EJSXI5S as needed for ypfc279Jesqnomnx 2022 10:14amMarch 2023 2:28pmKetorolac 10 mg prbfdcVnbrlxgsdagb63ARDEHpkxc times daily as needed for ervh4474Bmxacoxih 2022 11:00pmMarch 2023 2:28pmCyclobenzaprine 10 mg tabletDiscontinued 10MGPOThree times daily as needed for muscle ysaln383Gubwielsa 2022 11:00pm March 20, 2024 11:05amVenlafaxine (Effexor Xr) 150 mg capsule,extended release 72qlBiydco832BUJUKayejExtlb 2023 2:27pmin addition to 75mg to equal 225mgComplies with drug therapyVenlafaxine 75 mg capsule,extended release 11uvAmwelx38QUIBCxcyrAsmkczqjp 2023 11:00pmComplies with drug therapy Lamotrigine (Lamictal) 150 mg pyjkdzNhhdfbirhcbd413HFNVLckkwAbnrtqngh 2023 11:00pmJanuary 2024 3:06pmMultivitamin (Daily Multi-Vitamin) tabletActive1 TABPODailySeptember 2023 11:00pmComplies with drug therapydocusate sodium (Stool Softener)DiscontinuedPOas neededSept2023 11:00pmJanuary 2024 3:06pmpsyllium husk (Daily Fiber)DiscontinuedPOSept2023 11:00pm July 17, 2024 3:04pmMelatonin 10 mg ohtskcAjjdvjbjxkuv46FBIJAzapv at bedtime as neededSeptember 2023 11:00pmSeptember 2024 1:08pm Diphenhydramine Hcl (Benadryl Allergy) 50 mg nijlleWbnhwwnghrxk15FOTQSsjhb at bedtime as neededSeptember 2023 11:00pmSeptember 2024 1:07pm Cariprazine (Vraylar) 4.5 mg capsuleDiscontinuedMGPOJanuary 2024 12:00am March 26, 2025 1:07pmLamotrigine 200 mg tabletDiscontinuedMGPOJanuary 2024 12:00amSeptember 2024 1:07pmLorazepam 0.5 mg tabletDiscontinued MGPOJanuary 2024 12:00amSeptember 2024 1:08pmLisdexamfetamine 60 mg ghkpcptNuzojpasfhynODUD7Odkyqnt 2024 12:00amSeptember 2024 1:07pm Mirtazapine 15 mg tabletDiscontinuedMGPOJanuary 2024 12:00amSeptember 2024 1:08pmOndansetron 4 mg tablet,tgfnzmxcgeyejcUviirz3AEJELwhss 8 hours as needed for nausea and fqupxsad9821Osubpru 21st, 2025 12:00amComplies with drug therapyVenlafaxine (Effexor Xr) 75 mg capsule,extended release 24hr Uwlgmcjbobrm03ZIWHJyyegTlyul 2023 11:00pmApril 2023 10:21amin addition to 150mg to equal 225mgLurasidone 40 mg zezyyeEkfgjzrzshuf07IFVDTyowf September 20, 2023 11:00pmMarch 2023 1:31pmKetorolac 10 mg tablet Mxgsojdbtkss82VIOGKutxp daily as neededM[facility]2023 11:00pmSeptember 2023 11:05ammaximum total duration of 5 days from all oral, intranasal, or parenteral formulationsCariprazine (Vraylar) 3 mg zvtlqozUqxprizolcjq0BBVGZjagl 90306Ulhdy 2023 11:00pmJanuary 2024 3:05pmVenlafaxine 37.5 mg capsule,extended release 85reAnxhnykhtcsb69.6RHETGjdna884Kynds 2023 11:00pmMay 2023 12:58pmLorazepam 1 mg hpbzdfZfabroxcuisj1SFRCTmuoj as needed for ihbslsk49038Rzr 2023 11:00pmMay 2023 8:01amPanic state as acute reaction to exceptional (gross) stress Panic disorder [episodic paroxysmal anxiety] Acute stress reactionPrednisone 20 mg khpxfrYnkekghojilw8FMNjfid3275Gvjbslhc 2023 12:00amN[facility] 2023 1:18pm3 tabs x 3 days, 2 tabs x 3 days, 1 tab x 3 daysTizanidine 4 mg uwqxbtMgqqyrgutemc8OQJCUruqk at bedtime as needed for muscle nbvznzqqsi14728Synfgmyj 5th, 2024 12:00amN[facility] 2023 1:18pm Alprazolam 0.5 mg tabletDiscontinued0.5MGPOTwice daily as needed2024 11:00pmMay 16, 2025 1:57pmMirtazapine 30 mg xoloxyFwnibn43OPWKPvbdp March 25, 2025 11:00pmComplies with drug therapyDextroamphetamine- Amphetamine 15 mg lmaiyyFpjqesesbaud17YPLZLueve8Yhxodmobf 29th, 2025 11:00pm May 16, 2025 1:57pmLisdexamfetamine (Vyvanse) 70 mg quqgepxCmvlmnvfruss10 DPDNNhjrd3Imsyxtcvq 29th, 2025 11:00pm[facility] 1:57pmCariprazine (Vraylar) 3 mg vrendkdRwakgj0WJISTsjumJdaqgjjop 29th, 2025 11:00pmComplies with drug therapyLumateperone (Caplyta) 42 mg wnfgwjtEzldwyczybha60CIFVYnksjMsvazxjif 29th, 2025 11:00pmMay 16, 2025 1:57pmDocusate Sodium (Dulcolax Stool Softener (Dss)) 100 mg ighzxqyNxfdof762CJSRUfkjt14743Wevwjmtev 29th, 2025 11:00pmComplies with drug therapyEsomeprazole Magnesium 20 mg capsule,delayed release(DR/EC)Fggeub76LBUYSyyef39231Lonnpsyuo 29th, 2025 11:00pmComplies with drug therapyTobramycin-Dexamethasone (Tobradex St) 0.3-0.05 % drops,suspension Eraqntmeyzuo0RITMHNNI-KBDRWzhct 6 laoyg179Szzezpi 2024 11:00pmMay 16, 2025 1:58pm Immunizations Immunization Event Date Not Given Reason Dose Number Delivery Table Operator Lot Number Reason(s) Given Vaccine Information Statement (VIS) Detail Administration Location COVID-19 mRNA, Comirnaty ([employer]) June 09, 2021 [id number] mRNA, Comirnaty ([employer])June [id number], TT and 5 pertussis antigensApril , 2003diphtheria, TT and 5 pertussis antigens [place] 2003diphtheria, TT and 5 pertussis antigensSeptember 2003 diphtheria, TT and 5 pertussis antigensMay 2004diphtheria, TT and 5 pertussis antigensSeptember 2008DTap, unspecifiedMay 2004Hepatitis A Vaccine, adol/ped, 2 doseMay [id number] A Vaccine, Unspecified December 23, [id number] B Vaccine, adol/ped dosageFebruary 2003 Hepatitis B Vaccine, adol/ped dosageApril 2003Hepatitis B Vaccine, adol/ped dosageNovember 2003Hib, unspecified formulationMay 2004 Human Papillomavirus, 9 ValentSeptember [id number] Papillomavirus, 9 ValentFebruary [id number] W1E0-63 IntranasalOctober 2008 825004BMjamoquadtt Poliovirus VaccineApril , 2003Inactivated Poliovirus VaccineJuly , 2003Inactivated Poliovirus VaccineAugust 2004Inactivated Poliovirus VaccineSeptember 2008Meningococcal ZKX5XQgo [id number] Meningococcal Vaccine (MCV4P)December 23, [id number], Mumps, and Rubella Virus VaccineFebruary 2004Measles, Mumps, and Rubella Virus VaccineMarch 2005Pneumococcal Conjugate Vaccine, 7 valentApril 2003Pneumococcal Conjugate Vaccine, 7 valentJuly , 2003Pneumococcal Conjugate Vaccine, 7 valentSeptember , 2003Pneumococcal Conjugate Vaccine, 7 valentMay 2004 Quadrivalent InfluenzaDecember [id number], Diphtheria, Pertussis (Tdap)November 22, [id number] Virus VaccineFebruary 2004Varicella Virus VaccineSeptember 2008 Advance Directives Advance Directive Response Recorded Date/ Time Advance Directives No September 27 1:57pm Insurance Providers Guarantor Tara Lam Address [address] [place] [address]Mtarjjh Info.Home Phone: Coverage Status Update:2024 Payer Group Member ID Coverage Type Subscriber Relationship to Subscriber Effective Date Expiration Date [employer] / [employer] [id number] Mccroskey , D Id: [id number] [address] [place] [address] Home Phone: Email: [email or web address] [place] [employer] [id number] Heath Id: [id number] [address] [place] [address] Home Phone: Email: [email or web address][email or web address] [place] Medicaid [id number] Heath Id: [id number] [address] [place] [address] Home Phone: Email: [email or web address]
[2025-06-26 19:38] VITALS: BP 163/89; PULSE 100; TEMP 37.1; O2SAT 100; BMI 27.3
--- NOTE | 2025-06-26 20:42 | ED.GENADUL1 ---
HPI HPI - General Adult General Chief complaint: Upper Respiratory Infection Stated complaint: Skin abscess Time Seen by Provider: 06/26/25 20:36 Source: patient Mode of arrival: walk-in History of Present Illness HPI narrative: 19-year-old male presented with concern of an infection. He has been shooting methamphetamine into both of his antecubital fossa and he was worried about an infection. No fever or vomiting or diarrhea. 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 No drainage from his arms. Related Data Home Medications ?Medication ?Instructions ?Recorded ?Confirmed cariprazine 1.5 mg capsule 1.5 mg PO DAILY 06/10/23 06/20/25 (Vraylar) venlafaxine 75 mg capsule,extended 225 mg PO DAILY 06/10/23 06/20/25 release 24 hr (Effexor XR) mirtazapine 15 mg tablet 15 mg PO DAILY 06/20/25 06/20/25 Previous Rx's ?Medication ?Instructions ?Recorded ondansetron 4 mg disintegrating 4 mg PO TID PRN nausea and 04/03/24 tablet vomiting #10 tabs ketorolac 10 mg tablet 10 mg PO Q8H PRN pain 2 days #6 04/06/24 tabs Allergies Allergy/AdvReac Type Severity Reaction Status Date / Time No Known Drug Allergies Allergy Verified 06/20/25 00:07 Review of Systems ROS Narrative A ten point review of systems is negative except as noted above. PFSH PFSH Social History Smoking status: Current every day smoker Little interest or pleasure in doing things: not at all Feeling down, depressed, or hopeless: not at all Exam Narrative Exam Narrative: Nurses note and vital signs reviewed General:The patient appears well and in no apparent distress.Patient is resting comfortably on cart. Skin:Warm, dry, no pallor noted.There are bruises in each antecubital fossa. No erythema or raised area. There is no drainage. Head:Normocephalic, atraumatic Eye: Normal conjunctiva, no drainage Ears, Nose, Mouth, and Throat: oral mucosa is moist. Nares patent. Cardiovascular:Regular Rate and Rhythm Respiratory:Patient is in no distress, no accessory muscle use, lungs are clear to auscultation, no wheezing, rales or rhonchi Back:non-tender GI: Soft and nontender Musculoskeletal: The patient has no evidence of calf tenderness, no pitting edema, symmetrical pulses noted bilaterally Neurological: Awake and alert Psychiatric:Cooperative Constitutional Vital Signs, click to edit/add: Last Vital Signs Temp 98.7 F 06/26/25 19:38 Pulse 100 H 06/26/25 19:38 Resp 18 06/26/25 19:38 BP 163/89 H 06/26/25 19:38 Pulse Ox 100 06/26/25 19:38 O2 Del Method Room Air 06/26/25 19:38 Course Vital Signs Vital signs: Vital Signs Temperature 98.7 F 06/26/25 19:38 Pulse Rate 100 H 06/26/25 19:38 Respiratory Rate 18 06/26/25 19:38 Blood Pressure 163/89 H 06/26/25 19:38 Pulse Oximetry 100 06/26/25 19:38 Oxygen Delivery Method Room Air 06/26/25 19:38 Temperature 98.7 F 06/26/25 19:38 Pulse Rate 100 H 06/26/25 19:38 Respiratory Rate 18 06/26/25 19:38 Blood Pressure 163/89 H 06/26/25 19:38 Pulse Oximetry 100 06/26/25 19:38 Oxygen Delivery Method Room Air 06/26/25 19:38 Medical Decision Making MDM Narrative Medical decision making narrative: There is no evidence of infection. The patient is reassured and is discharged home. Treatment diagnosis and follow-up were discussed with the patient. Differential Diagnosis Differential Diagnosis: Cellulitis, bruises Lab Data Lab results reviewed: Yes I reviewed the patient's lab results Labs: Lab Results 06/26/25 Range/Units 19:45 Influenza Type A Ag Negative Influenza Type B Ag Negative Discharge Plan Discharge Chief Complaint: Upper Respiratory Infection Clinical Impression: Bruise of both arms Patient Disposition: Home, Self-Care Time of Disposition Decision: 20:41 Condition: Good Mode of Transportation: Private Vehicle Prescriptions / Home Meds: No Action ondansetron 4 mg tablet,disintegrating 4 mg PO TID PRN (Reason: nausea and vomiting) Qty: 10 0RF ketorolac 10 mg tablet 10 mg PO Q8H PRN (Reason: pain) 2 Days Qty: 6 0RF mirtazapine 15 mg tablet 15 mg PO DAILY venlafaxine [Effexor XR] 75 mg capsule,extended release 24hr 225 mg PO DAILY Vraylar 1.5 mg capsule 1.5 mg PO DAILY Print Language: Tanzanian Instructions: Methamphetamine Use Disorder (ED), Hematoma (ED) Referrals: Nayla Dorsey NP [Primary Care Provider] - 1 week
--- OUTSIDE RECORDS SUMMARY | 2025-06-26 20:57 | XMS_ITS | Clinical Summary ---
Author Organization [facility] [place] [address] Care Team Providers Care Bander Hand Name Role Phone Jaxson Ashraf DO Primary Care Provider Unavaila ble Social History Tobacco UseTypesPacks/DayYears UsedDateSmoking Tobacco: Never AssessedSex and Gender InformationValueDate RecordedSex Assigned at BirthNot on fileLegal Sex Male07/06/2019 9:37 AM ESTGender IdentityNot on fileSexual OrientationNot on file Plan of Treatment Health MaintenanceDue DateLast DoneCommentsTetanus Diphtheria and Pertussis Vaccines (6 - Tdap), 10/27/2004, 03/13/2004, Additional history existsHPV (1 - Male 3-dose series)2018Vision Pweyjurpc08/21/2019 MenB (1 of 2 - MenB 2-Dose Series Bexsero)2019Hearing Kyepnprpk00/21/2022 Hepatitis B (1 of 3 - 19+ 3-dose series)3COVID-19 ( - season) 2025FLU (#1)02/25/2025PneumococcalAged Out11/16/2004, 03/13/2004, 01/08/2004, Additional history existsNo longer eligible based on patient's age to complete this vtdqcLXJIqrslfjbq70/09/2006, 08/20/2004VaricellaCompleted 03/25/2009, 08/20/2004HIBAged OutNo longer eligible based [...] MemberRelationshipSpecialtyStart DateEnd Date Jaxson Ashraf DO [address] [address] [place] [address] PCP - GeneralPediatric07/01/19
--- OUTSIDE RECORDS SUMMARY | 2025-06-26 20:57 | XMS_ITS | Clinical Summary ---
Author Organization [facility] Address [address] [place] [address] Phone Care Team Providers Care Security Solutions Engineer Name Role Phone BennyLinnea Adele WILSONN-LEAD FRONT DESK AGENT Primary Care Provider Social History Tobacco UseTypesPacks/DayYears UsedDateSmoking Tobacco: Never AssessedSex and Gender InformationValueDate RecordedSex Assigned at BirthNot on fileLegal Sex Male05/22/2022 1:10 AM ESTGender IdentityNot on fileSexual OrientationNot on file Last Filed Vital Signs Vital SignReadingTime TakenCommentsBlood Hmmijxrs160/6205/05/2022 2:21 PM EDT Vmcll24367 2:21 PM RDSJgbqphalkvt58.6 ??C (97.9 ??F)05/04/2012 12:00 AM ESTRespiratory Rate--Oxygen Nzjvdfevil66%11/05/2021 2:21 PM EDTInhaled Oxygen Concentration--Emavwh75.6 kg (191 lb)11/05/2021 2:21 PM CQUWhucta758.1 cm (6' 6 )11/05/2021 2:21 PM EDTBody Mass Index22.0711/05/2021 2:21 PM EDT Plan of Treatment Health MaintenanceDue DateLast DoneCommentsHIV Zxrdtpgbv36/21/2004Lipid Panel 2003Yearly Adult Hvrfofvk75/21/2004Hearing Screening (#1)2007 Meningococcal B Vaccine (1 of 2 - Standard)2019Hepatitis C Screening 2DTaP/Tdap/Td Vaccines (7 - Td or Tdap), 03/25/2009, 10/27/2004, Additional history existsCOVID-19 Vaccine (1 - season)2025Influenza Vaccine (#1)512/, 05/04/2012, 04/23/2009, Additional history existsZoster Vaccines (1 of 2)2053 03/25/2009, 08/20/2004Hepatitis B OoixneoxKeeoknkck73/26/2004, 2003, 2003HIB ZbfrhwwuIpgzqaytj78/23/2005, 03/13/2004, 01/08/2004, Additional history existsPneumococcal Vaccine: Pediatrics and At-Risk Adult Patients Ebhdrpuyz99/23/2005, 03/13/2004, 01/08/2004, Additional history existsMMR EuaqgrvxNzkmhmfod15/09/2006, 08/20/2004IPV QjqsialnHtwnklwnr71/29/2009, 02/19/2005, 01/08/2004, Additional history existsHepatitis A VaccinesCompleted 12/23/2015, 11/22/2014HPV AwsatoeaMnnxnicxv90/22/2019, 03/07/2018Meningococcal TbfgcypFmqdxvyna72/05/2021, 12/23/2015Rotavirus VaccinesAged OutNo longer eligible based on patient's age to complete this topic Care Teams Team MemberRelationshipSpecialtyStart DateEnd Date Linnea Zapata, STRATEGY INTERN-LEAD FRONT DESK AGENT PCP - General11/05/21
--- OUTSIDE RECORDS SUMMARY | 2025-06-26 20:57 | XMS_ITS | Clinical Summary ---
Author Organization [facility] Address [id number] [place] [address] Care Team Providers Care Junior Mechanical Engineer Name Role Phone Unavailable Primary Care Provider [...] ValueDate RecordedSex Assigned at BirthNot on fileLegal AhaCnpb2110/28/2023 1:20 PM EDTGender IdentityNot on fileSexual OrientationNot on file Last Filed Vital Signs Vital SignReadingTime TakenCommentsBlood Qbvankmy931/9005 1:30 PM EDT Diaev49837/03/2024 1:30 PM QSROmffykdekdw52.3 ??C (97.3 ??F)10/28/2023 1:30 PM EDTRespiratory Dpnk678910/28/2023 1:30 PM EDTOxygen Prjpswitkv592%10/28/2023 1:30 PM EDTInhaled Oxygen Concentration--Oikqak22.5 kg (195 lb)10/28/2023 1:32 PM EDT Lbbgez389.1 cm (6' 6 )10/28/2023 1:32 PM EDTBody Mass Index22.53010/28/2023 1:32 PM EDT Plan of Treatment Not on file Medical Devices Not on file Insurance
--- OUTSIDE RECORDS SUMMARY | 2025-06-26 20:58 | XMS_ITS | CCD ---
Author Organization [facility] CliniSyvt Care Team Providers Care Logistics Operations Director Name Role Phone Jaxson Starks Primary Care [...] PHYSICIAN Primary Care Provider Unava ilable Laury, [facility]- Margarita Valera Emergency Provider OSEI Jarrett Attending Provider ALECIA Roach Emergency Provider [phone] JULIA Ornelas Emergency Provider DO Saqib Brantley Admit Provider DO Saqib Brantley Attending Provider [phone] MD Arnel Carlisle Other Provider ALECIA Shahid Other Provider [phone] MD Chandler Flood Other Provider MD Nicholas Frias Other Provider AGUILA Castro Other Provider Unavailable DO Ginger Cid Other Provider MD Regine Bingham Other Provider MD Iglesia Milanrick Other Provider MD Kellee Lambert Other Provider MD Ernie Jimenez Other Provider ALECIA Ramos Other Provider MD Elizabeth Serrato Other Provider MD Arnel Ibanez Naramakrishna Other Provider MD Lizette Vega Other Provider Shamika [facility]- Sherrie Jolly Other Provider [phone] MD Soledad Perez Other Provider Benny, Ms. Linnea Gifford Referring Unavaila ble Iliano, Ms. Linnea Ирина Attending Unavaila ble Iliano, Ms. Linnea Ирина Primary Care Unavaila ble Iliano, Ms. Linnea Ирина Primary Care Unavaila ble Ana Laura Lacey Unavailable ALECIA Lacey Attending Provider Nazario Fine Unavailable Nayla Dorsey Unavailable NO FAMILY, PHYSICIAN Primary Care Provider Unava ilALECIA Hillman Emergency Provider NONE, [place] Primary Care Physician Unavailab JOHN Copeland Attending Unavailable JOHN GILES Admitting Unavailable Kenroy Jackson Attending Unavailable JOHN GILES Attending Unavailable NO FAMILY, PHYSICIAN Primary Care Provider Unava ALECIA Holder Emergency Provider ALECIA Dorsey Attending Provider [phone] ALECIA Dorsey Primary Care Provider [phone] MD Nazario Shaw Jr Emergency Provider Unavailable Primary Care Provider Unavailabl e Nayla Dorsey Primary Care Unavailable Nazario Shaw Jr Attending Unavailable Nazario Shaw Jr Admitting Unavailable Nayla Dorsey APRN Primary Care Provider [phone] Nayla Dorsey APRN Attending Provider [phone] Tika Nieves APRN Attending Provider Allergies Allergy ClassificationReported Allergen(s)Allergy TypeDate of OnsetReaction(s) FacilityNEGATED: Highlighted row has been ruled out! (3 sources)natural latex rubber; Translations: [LATEX, NATURAL RUBBER]Drug allergy (disorder)[facility] NEGATED: Highlighted row has been ruled out! (3 sources)No IV Contrast Allergy.; Translations: [IV Dye, Iodine Containing] Drug allergy (disorder)[facility] Medications Current Medications MedicationDrug Class(es)DatesSig (Normalized)Sig (Original)ALPRAZolam 0.5 mg oral tablet (2 sources)BenzodiazepineStart: 55-87-4640mlrl 1 tablet by mouth twice daily as neededAlprazolam 0.5 mg tablet Active 0.5 MG PO Twice daily as needed March 26, 2025 12:00am Complies with drug therapyamphetamine aspartate 3.75 mg / amphetamine sulfate 3.75 mg / dextroamphetamine saccharate 3.75 mg / dextroamphetamine sulfate 3.75 mg oral tablet (2 sources)Central Nervous System StimulantStart: 14-18-8712mzyq 1 tablet by mouth once dailyDextroamphetamine-Amphetamine 15 mg tablet Active 15 MG PO Daily March 26, 2025 12:00am Complies with drug therapycariprazine 3 mg oral capsule (14 sources)Atypical AntipsychoticStart: 75-56-7978bxva 1 capsule by mouth once dailyCariprazine (Vraylar) 3 mg capsule Active 3 MG PO Daily March 26, 2025 12:00am Complies with drug therapyStart: 07-17-2024 End: 75-55-6842Htcjefbvzqo (Vraylar) 4.5 mg capsule Discontinued MG PO July 17, 2024 1:00am March 26, 2025 2:07pmStart: 09-22-2023 End: 71-28-8363bocc 1 capsule by mouth once dailyCariprazine (Vraylar) 3 mg capsule Discontinued 3 MG PO Daily September 22, 2023 12:00am July 17, 2024 4:05pmcephalexin 500 mg oral capsule (2 sources)Cephalosporin AntibacterialStart: 79-74-1159pxia 1 capsule by mouth every twelve hoursCephalexin 500 MG 1 capsule Orally twice a day for 10 Jan, Activedocusate sodium 100 mg oral capsule (12 sources)Start: 47-51-8784kshf 1 capsule by mouth once dailyDocusate Sodium (Dulcolax Stool Softener (Dss)) 100 mg capsule Active 100 MG PO Daily March 26, 2025 12:00am Complies with drug therapyStart: 03-20-2024 End: 41-21-4569jyvohxsy sodium (Stool Softener) Discontinued PO as needed March 20, 2024 12:00am July 17, 2024 4:06pmStart: 03-20-2024 End: 22-00-9281ubbjzavw sodium (Stool Softener) Discontinued PO as needed March 19, 2024 11:00pm July 17, 2024 3:06pmStart: 74-54-3814drtdccqa sodium (Stool Softener) Active PO March 19, 2024 11:00pmStart: 03-20-2024 docusate sodium (Stool Softener) Active PO March 20, 2024 12:00amStart: 20-96-4126wthu 2 tablets by mouth every six hours as needed for constipation, then take 1 tablet by mouth once daily as needed for constipationDulcolax Stool Softener 100 MG Oral Capsule TAKE 2 TABLETS NOW AND REPEAT IN 6 HOURS, THEN 1 TABLETDAILY NEEDED FOR CONSTIPATION Quantity: 1 Refills: 0 Ordered: 05-Nov-2021 Linnea Olsen Start : 05-Nov-2021 ActiveStart: 04-17-2021 Docusate Sodium 100 MG Oral Capsule Quantity: 56 Refills: 0 Ordered: 17-Apr-2021 DO Start : 17-Apr-2021 Activeesomeprazole 20 mg delayed release oral capsule (1 source)Proton Pump InhibitorStart: 45-93-1946wwfe 1 capsule by mouth once dailyEsomeprazole Magnesium 20 mg capsule,delayed release(DR/EC) Active 20 MG PO Daily 90 90 March 26, 2025 12:00am Complies with drug therapy lisdexamfetamine dimesylate 70 mg oral capsule (5 sources)Central Nervous System StimulantStart: 46-76-6702ofuu 1 capsule by mouth once dailyLisdexamfetamine (Vyvanse) 70 mg capsule Active 70 MG PO Daily March 26, 2025 12:00am Complies with drug therapyStart: 07-17-2024 End: 94-04-9816Hlcidxhabyjdepat 60 mg capsule Discontinued MG PO July 17, 2024 1:00am March 26, 2025 2:07pmlumateperone 42 mg oral capsule (2 sources)Start: 61-74-3312fubm 1 capsule by mouth once dailyLumateperone (Caplyta) 42 mg capsule Active 42 MG PO Daily March 26, 2025 12:00am Complies with drug therapymethylPREDNISolone 4 mg oral tablet (9 sources)CorticosteroidStart: 13-22-2658azxbysZHVNFFNxmopl 4 MG as directed Orally take as directed for 6 days Jan, Activemirtazapine 30 mg oral tablet (5 sources)Start: 57-40-9990cxmm 1 tablet by mouth once dailyMirtazapine 30 mg tablet Active 30 MG PO Daily March 26, 2025 12:00am Complies with drug therapyStart: 07-17-2024 End: 65-58-1942Pxwbsfljqfx 15 mg tablet Discontinued MG PO July 17, 2024 1:00am March 26, 2025 2:08pmMultivitamin (Daily Multi-Vitamin) tablet (5 sources)Start: 04-95-5879khxl 1 tablet by mouth once dailyMultivitamin (Daily Multi-Vitamin) tablet Active 1 TAB PO Daily March 20, 2024 12:00am Complie s with drug therapyStart: 29-99-3451fwsn 1 tablet by mouth once daily Multivitamin (Daily Multi-Vitamin) tablet Active 1 TAB PO Daily March 19, 2024 11:00pmStart: 57-15-7648pwpp 1 tablet by mouth once dailyMultivitamin (Daily Multi-Vitamin) tablet Active 1 TAB PO Daily March 20, 2024 12:00am nystatin 416581 unt/ml oral suspension (2 sources)Polyene AntifungalStart: 13-42-1364jaah 4 mL by mouth four times dailyNystatin 253376 UNIT/ML 4 ml swish and swallow Mouth/Throat Four times a day for 10 days Jan, Activeondansetron 4 mg disintegrating oral tablet (3 sources)Serotonin-3 Receptor AntagonistStart: 26-96-1927wvlb 1 tablet by mouth every eight hours as needed for nausea and vomitingOndansetron 4 mg tablet,disintegrating Active 4 MG PO Every 8 hours as needed for nausea and vomiting 08 11July 17, 2024 1:00am Complies with drug diywemp41 hr venlafaxine 75 mg extended release oral capsule (20 sources)Serotonin and Norepinephrine Reuptake InhibitorStart: 11-70-2377fmdw 1 capsule by mouth once dailyVenlafaxine 75 mg capsule,extended release 24hr Active 75 MG PO Daily March 20, 2024 12:00am Complies with drug therapy Start: 21-52-4726utnh 1 capsule by mouth once dailyVenlafaxine 75 mg capsule,extended release 24hr Active 75 MG PO Daily March 19, 2024 11:00pm Start: 61-48-0329usvw 75 mg by mouth once dailyVenlafaxine Active 75 MG PO Daily March 19, 2024 11:00pmStart: 11-17-2023 End: 48-31-4896ouqx 1 capsule by mouth once dailyVenlafaxine 37.5 mg capsule,extended release 24hr Discontinued 0 .ROUTE .COMPLEX November 17, 2023 1 :58pm March 20, 2024 12:05pm Take 1 capsule by mouth once dailyStart: 11-17-2023 End: 26-31-8839eznz 1 capsule by mouth once dailyVenlafaxine 37.5 mg capsule,extended release 24hr Discontinued 0 .ROUTE .COMPLEX November 17, 2023 1 2:58pm March 20, 2024 11:05am Take 1 capsule by mouth once dailyStart: 11-17-2023 End: 55-32-5794zqhx 1 capsule by mouth once dailyVenlafaxine Discontinued 0 .ROUTE .COMPLEX November 17, 2023 12:58pm March 20, 2024 11:05am Take 1 capsule by mouth once dailyStart: 11-17-2023 End: 43-83-9507xvvy 1 capsule by mouth once dailyVenlafaxine Discontinued 0 .ROUTE .COMPLEX 90 November 17, 2023 1:58pm March 20, 2024 12:05pm Take 1 capsule by mouth once dailyStart: 10-06-2023 End: 98-40-9216jqlf 1 capsule by mouth once dailyVenlafaxine 37.5 mg capsule,extended release 24hr Discontinued 37.5 MG PO Daily October 06, 2023 12:00am November 17, 2023 1:58pmStart: 09-21-2023 End: 62-16-8473Rnegzubwftx (Effexor Xr) 75 mg capsule,extended release 24hr Discontinued 75 MG PO Daily September 21, 2023 12:00am October 06, 2023 11:21am in addition to 150mg to equal 225mgStart: 99-58-4494Ekardvv XR Oral, Daily, Refills(s) 0 Start Date: 03/07/23 Status: OrderedStart: 10-26-2022 End: 40-13-5311mnbk 1 capsule by mouth once dailyVenlafaxine (Effexor Xr) 150 mg capsule,extended release 24hr Discontinued 225 MG PO Daily February 27, 2023 11:03am September 21, 2023 3:29pmStart: 09-27-2022 End: 46-36-9747stcn 1 capsule by mouth once daily in the morningVenlafaxine (Effexor Xr) 75 mg Capsule,Extended Release 24hr Discontinued 75 MG PO Every morning September 27, 2022 12:00am October 13, 2022 4:03pmStart: 12-36-6434hsoy 1 capsule by mouth every twenty-four hoursVenlafaxine HCl ER 150 MG Oral Capsule Extended Release 24 Hour Quantity: 30 Refills: 0 Ordered: 03-Nov-2021 DO Start : 03-Nov-2021 ActiveEffexor Active Completed/Discontinued Medications MedicationDrug Class(es)DatesSig (Normalized)Sig (Original)acetaminophen 325 mg oral tablet (13 sources)Start: 10-22-2022 End: 61-41-5050Nwdfbzbvoqctp (Tylenol) 325 mg Tablet Discontinued 325 MG PO Q65H as needed for Pain October 22, 2022 12:00am October 23, 2022 12:56pmcalcium polycarbophil 625 mg oral tablet (3 sources)Start: 63-70-1568Qmcxm-Lax 625 MG Oral Tablet Quantity: 56 Refills: 0 Ordered: 15-Apr-2021 DO Start : 15-Apr-2021 Activecyclobenzaprine hydrochloride 10 mg oral tablet (20 sources)Muscle RelaxantStart: 02-27-2023 End: 90-85-1997ujnm 1 tablet by mouth three times daily as needed for muscle spasmsCyclobenzaprine 10 mg tablet Discontinued 10 MG PO Three times daily as needed for muscle spasm February 27, 2023 12:00am March 20, 2024 12:05pmStart: 53-22-3398ugcm 1 tablet by mouth twice daily as needed Cyclobenzaprine HCl 10 MG 1 tablet as needed Orally BID PRN for 10 days Jan, ActiveStart: 99-78-5120lzmt 1 tablet by mouth every eight hours as needed Cyclobenzaprine HCl 10 MG 1 tablet as needed Orally every 8 hours for 5 days Jan, ActivediphenhydrAMINE hydrochloride 50 mg oral tablet (5 sources)Histamine-1 Receptor AntagonistStart: 03-20-2024 End: 16-86-5819qdsg 1 tablet by mouth once daily at bedtime as needed Diphenhydramine Hcl (Benadryl Allergy) 50 mg tablet Discontinued 50 MG PO Daily at bedtime as needed March 20, 2024 12:00am March 26, 2025 2:07pm DULoxetine 20 mg delayed release oral capsule (20 sources)Serotonin and Norepinephrine Reuptake InhibitorStart: 10-21-2022 End: 51-09-6769pzjg 1 capsule by mouth once dailyDuloxetine 20 mg capsule,delayed release(DR/EC) Discontinued 20 MG PO Daily October 23, 2022 12:00am October 26, 2022 11:22amhydrOXYzine pamoate 50 mg oral capsule (3 sources)AntihistamineStart: 51-16-3312amqdOAHjqlv Pamoate 50 MG Oral Capsule Quantity: 60 Refills: 0 Ordered: 03-Nov-2021 DO Start : 03-Nov-2021 Active ibuprofen 800 mg oral tablet (11 sources)Nonsteroidal Anti-inflammatory DrugStart: 02-27-2023 End: 49-02-2221drgn 1 tablet by mouth every eight hours as needed for pain Ibuprofen 800 mg tablet Discontinued 800 MG PO Q8H as needed for pain February 27, 2023 11:14am September 21, 2023 3:28pmketorolac tromethamine 10 mg oral tablet (20 sources)Nonsteroidal Anti-inflammatory Drug, Cyclooxygenase InhibitorStart: 09-21-2023 End: 69-62-5990yylm 1 tablet by mouth twice daily as neededKetorolac 10 mg tablet Discontinued 10 MG PO Twice daily as needed September 21, 2023 12:00am March 20, 2024 12:05pm maximum total duration of 5 days from all oral, intranasal, or parenteral formulationsStart: 32-46-8202likl 1 tablet by mouth twice daily as neededToradol 10mg 1 tab prn orally bid for 14 days Feb, ActiveStart: 02-27-2023 End: 54-91-8197jtbi 1 tablet by mouth three times daily as needed for pain Ketorolac 10 mg tablet Discontinued 10 MG PO Three times daily as needed for pain 10 February 27, 2023 12:00am September 21, 2023 3:28pmlamoTRIgine 200 mg oral tablet (8 sources)Mood Stabilizer, Anti-epileptic AgentStart: 07-17-2024 End: 27-51-3800Ghztjvnynoq 200 mg tablet Discontinued MG PO July 17, 2024 1:00am March 26, 2025 2:07pmStart: 03-20-2024 End: 87-08-8877lkxi 1 tablet by mouth once dailyLamotrigine (Lamictal) 150 mg tablet Discontinued 150 MG PO Daily March 20, 2024 12:00am July 17, 2024 4:06pmLORazepam 0.5 mg oral tablet (20 sources)BenzodiazepineStart: 07-17-2024 End: 81-78-1737Tqtcajtep 0.5 mg tablet Discontinued MG PO July 17, 2024 1:00am March 26, 2025 2:08pmStart: 10-31-2023 End: 67-76-3928uagk 1 tablet by mouth once daily as needed for anxietyLorazepam 1 mg tablet Discontinued 1 MG PO Daily as needed for anxiety 15 15 May 15th, 2024 10:55amSeptember 2023 12:05pmlurasidone hydrochloride 40 mg oral tablet (20 sources)Atypical AntipsychoticStart: 09-21-2023 End: 76-97-6039qxua 1 tablet by mouth once dailyLurasidone 40 mg tablet Discontinued 40 MG PO Daily September 21, 2023 12:00am September 22, 2023 2:31pm Start: 21-38-2697Qmdfss Oral, Daily, Refills(s) 0 Start Date: 03/07/23 Status: OrderedStart: 02-27-2023 End: 41-05-9852Uuboumqmgc 20 mg tablet Discontinued MG February 27, 2023 12:00am September 21, 2023 3:28pmStart: 02-27-2023 End: 53-67-7050Mdetxarjud 20 mg tablet Discontinued MG TABLET February 26, 2023 11:00pm September 21, 2023 2:28pmStart: 02-27-2023 End: 41-22-6665Ahjsubyica Discontinued MG TABLET February 26, 2023 11:00pm September 21, 2023 2:28pmStart: 02-27-2023 End: 00-69-9775Odywrvqyiv Discontinued MG TABLET February 27, 2023 12:00am September 21, 2023 3:28pmStart: 02-92-9149Uoyuimyosv Active MG TABLET February 26, 2023 11:00pmStart: 06-70-2120Gmrlyrresi Active MG TABLET February 27, 2023 12:00amtake 1 tablet by mouth every twenty-four hoursLatuda 40 MG 1 tablet in the evening with food Orally Once a day Activetake 1 tablet by mouth every twenty-four hoursLatuda 20 MG 1 tablet in the evening with food Orally Once a day Activemagnesium citrate 58.2 mg/ml oral solution (3 sources)Start: 72-28-7691Bqaovprez Citrate 1.745 GM/30ML Oral Solution DRINK 1/2 BOTTLE, THEN 4 HOURS LATER FINISH BOTTLE Quantity: 1 Refills: 0 Ordered: 05-Nov-2021 Linnea Olsen Start : 05-Nov-2021 Activemelatonin 10 mg oral tablet (8 sources)Start: 03-20-2024 End: 86-92-9538zfww 1 tablet by mouth once daily at bedtime as neededMelatonin 10 mg tablet Discontinued 10 MG PO Daily at bedtime as needed March 20, 2024 12:00am March 26, 2025 2:08pmStart: 80-30-7669Vxevhmwjj TR 10 MG Oral Tablet Extended Release Quantity: 28 Refills: 0 Ordered: 27-Apr-2021 DO Start : 27-Apr-2021 Activenaproxen 500 mg oral tablet (20 sources)Nonsteroidal Anti-inflammatory DrugStart: 10-22-2022 End: 36-71-6278uclf 1 tablet by mouth twice daily at mealtimeNaproxen 500 mg tablet Discontinued 500 MG PO Twice daily with meals October 23, 2022 12:00am October 26, 2022 11:22am24 hr nicotine 0.875 mg/hr transdermal system (12 sources)Cholinergic Nicotinic AgonistStart: 10-26-2022 End: 28-02-9433jgoge 1 dose transdermal route every twenty-four hoursNicotine 21 mg/24 hr Patch 24 Hour Discontinued 1 EACH TRANSDERML Daily October 26, 2022 12:00am February 27, 2023 11:04amStart: 10-26-2022 End: 65-89-5751Memjsonf Discontinued 1 EACH TRANSDERML Daily October 25, 2022 11:00pm February 27, 2023 10:04amofloxacin 3 mg/ml otic solution (14 sources)Quinolone AntimicrobialStart: 10-13-2022 End: 16-13-6160Jwrfmlcgg 0.3 % drops Discontinued 5 DROPS EAR-RIGHT Twice daily 04 02October 13, 2022 12:00am October 21, 2022 11:01pmStart: 10-13-2022 End: 06-42-9708Fwehchcol Discontinued 5 DROPS EAR-RIGHT Twice daily 04 02October 12, 2022 11:00pm October 210:01pmpredniSONE 20 mg oral tablet (9 sources)Start: 05-01-2024 End: 22-21-4137Masfxbifdv 20 mg tablet Discontinued 0 PO Daily 14 03May 10, 2024 2:17pm July 17, 2024 3:59pm 3 tabs x 3 days, 2 tabs x 3 days, 1 tab x 3 daysStart: 03-07-2023 End: 04-41-9010ishx 2 tablets by mouth once dailypredniSONE 20 mg Tab 40 mg = 2 tab(s), Oral, Daily, X 5 day(s), # 10 tab(s), Refills(s) 0, Pharmacy: [facility], 198, cm, 03/07/23 16:53:00 EDT, Height/Length Dosing, 87.2, kg, 03/07/23 16:53:00 EDT, Weight Dosing Start Date: 03/07/23 Stop Date: 03/12/23 Status: OrderedStart: 16-73-9894uhbq 1 tablet by mouth every twelve hours prednisone 20 MG 1 tablet Orally BID for 5 Jan, Activepsyllium husk (Daily Fiber) (5 sources)Start: 03-20-2024 End: 08-90-5347qppsaiqa husk (Daily Fiber) Discontinued PO March 20, 2024 12:00am July 17, 2024 4:04pmStart: 03-20-2024 End: 43-32-4090mneggfeg husk (Daily Fiber) Discontinued PO March 19, 2024 11:00pm July 17, 2024 3:04pmStart: 94-37-6429cxwtgkzs husk (Daily Fiber) Active PO March 19, 2024 11:00pmStart: 81-76-2781osbfrfkf husk (Daily Fiber) Active PO March 20, 2024 12:00amtiZANidine 6 mg oral capsule (12 sources)Central alpha-2 Adrenergic AgonistStart: 06-11-2024 End: 15-17-5729Nhzuhtllut 6 mg capsule Discontinued 0 .ROUTE .COMPLEX June 11, 2024 11:06am March 26, 2025 2:08pm TAKE 1 CAPSULE DAILY AT BEDTIME FOR 21 DAYSStart: 05-23-2024 End: 53-51-2810ajdl 1 capsule by mouth once daily at bedtimeTizanidine (Zanaflex) 6 mg capsule Discontinued 6 MG PO Daily at bedtime May 23, 2024 1:00am June 11, 2024 11:06amStart: 05-01-2024 End: 33-55-2318smuf 1 tablet by mouth once daily at bedtime as neededTizanidine 4 mg tablet Discontinued 4 MG PO Daily at bedtime as needed for muscle spasticity 14 May 10, 2024 2:17pm May 23, 2024 7:04pmtraZODone hydrochloride 50 mg oral tablet (12 sources)Serotonin Reuptake InhibitorStart: 10-26-2022 End: 80-58-9395xsvw 1 tablet by mouth once daily at bedtime as neededTrazodone 50 mg Tablet Discontinued 50 MG PO Daily at bedtime as needed for Insomnia October 26, 2022 12:00am February 27, 2023 11:04am Problems Active Problems Problem ClassificationProblemDateDocumented DateEpisodic/ChronicAbdominal pain (12 sources)Abdominal pain; Translations: [Bilateral pain of inguinal region] Onset: 08-02-2022 Resolved: 633791-80-3725WzqeqjjlMrgwavd disorders (20 sources)Anxiety disorder; Translations: [Anxiety disorder, unspecified] Onset: 696961-25-3251UdqvtrsHjijczked-kwyonzq, conduct, and disruptive behavior disorders (2 sources)Attention deficit hyperactivity disorder; Translations: [Attention- deficit hyperactivity disorder, unspecified type]51-86-1427PgnzjjgOpodubbcayywl of surgical procedures or medical care (16 sources)Drug therapy finding; Translations: [Unspecified adverse effect of drug or medicament, initial encounter]95-00-2990FgaaxqhdFhqcveu on above:Problem List clean-up per request of Phys. EHR CmteConditions associated with dizziness or vertigo (15 sources)Dizziness; Translations: [Dizziness and giddiness]04-73-3696Senoyoot Comment on above:Problem List clean-up per request of Phys. EHR CmteDisorders of teeth and jaw (20 sources)Arthralgia of temporomandibular joint; Translations: [Arthralgia of temporomandibular joint, unspecified side]40-17-2821JqwdargiUjhoyyvurh disorders (6 sources)Gastroesophageal reflux disease; Translations: [Gastro-esophageal reflux disease without esophagitis]15-53-3585MalbqnoYmncdgkcjjmiyagf hemorrhage (6 sources)Melena; Translations: [Rectal hemorrhage]Onset: 00-12-285360 EpisodicImmunizations and screening for infectious disease (1 source)Contact with or exposure to other viral diseases; Translations: [Contact with or suspected exposureto severe acute respiratory syndrome coronavirus 2 (SARS-CoV-2)]06-89-9804FluofuljFbmfuqftouql; infection of eye (except that caused by tuberculosis or sexually transmitteddisease) (6 sources)External hordeolum; Translations: [Hordeolum externum] Resolved: 006229-59-9770XtwjgpcvHtsowcmekk infection (2 sources)Viral gastroenteritis; Translations: [Viral intestinal infection, unspecified]41-62-7177KkywragoCcdzbkcpejmnf (1 source)Enlarged lymph nodes, unspecifiedEpisodicMood disorders (20 sources)Major depressive disorder; Translations: [Major depressive disorder, recurrent, mild]Onset: 931961-13-0300IszqjhdSfbwoes on above:Problem List clean-up per request of Phys. EHR CmteNausea and vomiting (1 source)Nausea; Translations: [Nausea]Onset: 33-17-3466PzqnmqxcOhmkftvqepy chest pain (2 sources)Chest pain; Translations: [Chest pain, unspecified]01-82-3927Ympunllt Other connective tissue disease (1 source)Musculoskeletal symptom; Translations: [Other symptoms and signs involving the musculoskeletal system]Onset: 26-83-6561CencrjovUozrf ear and sense organ disorders (14 sources)Otitis externa; Translations: [Unspecified otitis externa, unspecified ear]10-67-8830VjtifwaPfakvbu on above:Problem List clean-up per request of Phys. EHR CmteOther gastrointestinal disorders (3 sources)Chronic constipation; Translations: [Constipation, unspecified] EpisodicOther gastrointestinal disorders (1 source)Other constipation; Translations: [Other constipation]Onset: 99-70-7531KjtwlsvoJarjr gastrointestinal disorders (2 sources)Constipation; Translations: [Constipation, unspecified]03-28-2025 EpisodicOther hereditary and degenerative nervous system conditions (7 sources)Restless legs; Translations: [Restless legs syndrome]10-06-2023 ChronicOther hereditary and degenerative nervous system conditions (2 sources)Restless legs syndrome; Translations: [Restless legs syndrome (RLS)] 08-84-5265VormkweNllng nutritional; endocrine; and metabolic disorders (2 sources)Excessive thirst; Translations: [Polydipsia]EpisodicOther nutritional; endocrine; and metabolic disorders (1 source)PolydipsiaEpisodicOther screening for suspected conditions (not mental disorders or infectious disease) (14 sources)Electrocardiogram abnormal; Translations: [Abnormal electrocardiogram [ECG] [EKG]]42-23-7808HjgoszqfPeyaxjw on above:Problem List clean-up per request of Phys. EHR CmteOther upper respiratory disease (1 source)Other specified disorders of nose and nasal sinusesEpisodicOther upper respiratory infections (5 sources)Sore throat symptom; Translations: [Acute pharyngitis] Resolved: 44-23-8796YnnreotwQrdkjutss by other medications and drugs (20 sources)Intentional drug overdose; Translations: [Intentional Drug Overdose] Onset: 913198-02-8303MuhtmuggAjjuwsr on above:Problem List clean-up per request of Phys. EHR CmtePoisoning by psychotropic agents (3 sources)Benzodiazepine overdose; Translations: [Benzodiazepine Overdose] 44-42-2166LqunilqvVzrncfqz codes; unclassified (5 sources)Insomnia; Translations: [Insomnia, unspecified]01-79-7343Mwrxblzp Residual codes; unclassified (2 sources)Insomnia, unspecified; Translations: [Insomnia, unspecified] 77-10-9361WdmqjhoeUzrbobhsm and history of mental health and substance abuse codes (1 source)Personal history of other mental and behavioral disorders; Translations: [Personal history of othermental and behavioral disorders]Onset: 81-50-7733NnoqemdlTyoegtfnxbl; intervertebral disc disorders; other back problems (4 sources)Backache; Translations: [Dorsalgia, unspecified]16-39-1548Anemlnwv Sprains and strains (1 source)Injury of muscle and tendon at neck level; Translations: [Strain of muscle, fascia and tendon at neck level, initial encounter]Onset: 03-07-2023 EpisodicSubstance-related disorders (20 sources)Polysubstance abuse ; 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]Onset: [id number] on above:10/2023Suicide and intentional self-inflicted injury (3 sources)Drug overdose - suicide; Translations: [Drug Overdose - Suicide] 32-97-7379Sbqrdjrahyyg (1 source)Contact with and (suspected) exposure to COVID-19; Translations: [Contact with and (suspected) exposure to COVID-19]Onset: 22-36-6167Ifzddztjxnpu (1 source)Personal history of suicidal behavior; Translations: [Personal history of suicidal behavior]Onset: 17-64-9016Nkifutxaplgt (1 source)Poisoning by fentanyl or fentanyl analogs, accidental (unintentional), initial encounter; Translations: [Poisoning by fentanyl or fentanyl analogs, accidental (unintentional), initial encounter]Onset: 11-14-2023 Past or Other Problems Problem ClassificationProblemDateDocumented DateEpisodic/ChronicOther gastrointestinal disorders (4 sources)H/O: gastrointestinal disease; Translations: [Personal history of other diseases of digestive system] Resolved: 34-68-3430IrtwmpfiMgile lower respiratory disease (4 sources)H/O: respiratory disease; Translations: [Personal history of other diseases of respiratory system] Resolved: 39-88-8665ObdcupepIdila lower respiratory disease (4 sources)Dyspnea on exertion; Translations: [Other respiratory abnormalities] Resolved: 12-07-4291HpjhoijsCSTUQXU: Highlighted row has not occurred!Residual codes; unclassified (1 source)DiseaseEpisodic Results Test NameValueInterpretationReference RangeFacilityBasophils Auto (Bld) [#/Vol] Ordered By: Nayla Dorsey on 38-49-5861Wygbgxfby (Bld) [#/Vol]0.0 10 3/uL 0.0-0.1FProMedica Memorial HospitalBasophils/100 WBC Auto (Bld)Ordered By: Nayla Dorsey on 04-16-6002Ncxzrqjat/100 WBC (Bld)0.3 %0.2-2.0[facility] CenterEosinophils/100 WBC Auto (Bld)Ordered By: Nayla Dorsey on 21-93-5540Eobnfgoryrd/100 WBC (Bld)1.9 %0.9-7.0[facility] CenterErythrocyte distribution width Auto (RBC) [Ratio]Ordered By: Nayla Dorsey on 63-29-0703Snisytiblvm distribution width (RBC) [Ratio]12.4 % 11.0-15.0[facility] CenterGlobulin Calc (S) [Mass/Vol]Ordered By: Nayla Dorsey on 24-62-9900Ynwuyrrr (S) [Mass/Vol]3.4 g/dLSalem Regional Medical CenterGlomerular filtration rate (GFR) estimation in non- AmericanOrdered By: Nayla Dorsey on 05-51-2102HKC/1.73 sq M.predicted among non-blacks MDRD (S/P/Bld) [Vol rate/Area]mL/min/{1.73_m2}>=60 mL/min/1.73m 2FProMedica Memorial HospitalHematocrit Auto (Bld) [Volume fraction]Ordered By: Nayla Dorsey on 80-33-3667Onughefqap (Bld) [Volume fraction]45.7 %42.0-54.0[facility] CenterHemoglobin [Mass/volume] in BloodOrdered By: Nayla Dorsey on 06-05-7659Cmgzqojrwz (Bld) [Mass/Vol]15.4 g/dL14.0-18.0[facility] CenterIron binding capacity [Mass/volume] in Serum or PlasmaOrdered By: Nayla Dorsey on 89-90-2340Madd binding capacity [Mass/Vol]340.0 ug/dL250.0-450.0[facility] CenterIron saturation [Mass Fraction] in Serum or PlasmaOrdered By: Nayla Dorsey on 41-61-5359Xhyt saturation [Mass fraction]13.2 %[facility] CenterLaboratory - Chemistry and Chemistry - challengeOrdered By: Nayla Dorsey on 24-58-6659Teofqmv [Mass/Vol]4.1 g/dL3.4-5.0[facility] CenterALP [Catalytic activity/Vol]103 U/J98-628OfuhzyohaSalem Regional Medical CenterALT [Catalytic activity/Vol]26 U/P21-79PkzhyxyufSalem Regional Medical CenterAST [Catalytic activity/Vol]16 U/K37-91VbycyekdgSalem Regional Medical CenterBilirubin [Mass/Vol]0.2 mg/dL0.2-1.0[facility] Calcium [Mass/Vol]9.0 mg/dL8.5-10.1FProMedica Memorial HospitalChloride [Moles/Vol]101 mmol/H99-980GpfbxlbzzSalem Regional Medical CenterCO2 [Moles/Vol]26.6 mmol/L21.0-32.0[facility] CenterCreatinine [Mass/Vol]1.12 mg/dL 0.70-1.30[facility] CenterGFR/1.73 sq M.predicted MDRD (S/P/Bld) [Vol rate/Area]mL/min/{1.73_m2}>=60 mL/min/1.73m 2FProMedica Memorial HospitalGlucose [Mass/Vol]128 mg/oVYcpe83-194CqksmbzjdSalem Regional Medical CenterIron [Mass/Vol]45.0 ug/dLLow65.0-175.0[facility] CenterPotassium [Moles/Vol]3.6 mmol/L3.5-5.1FProMedica Memorial HospitalProtein [Mass/Vol] 7.5 g/dL6.4-8.2FGeorgetown Behavioral Hospitalodium [Moles/Vol]139 mmol/L 136-145[facility] CenterUrea nitrogen [Mass/Vol]16.0 mg/dL 7.0-18.0[facility] CenterUrea nitrogen/Creatinine [Mass ratio] 14.3 mg/mgSalem Regional Medical CenterLaboratory - Hematology and Cell countsOrdered By: Nayla Dorsey on 21-88-2516Xpoppghg granulocytes/100 WBC (Bld)0.2 %0.0-0.5FProMedica Memorial HospitalLeukocytes [#/volume] corrected for nucleated erythrocytes in Blood by Automated counOrdered By: Nayla Dorsey on 79-75-1149FJG corrected for nucl RBC Auto (Bld) [#/Vol]6.5 10 3/uL 4.0-11.0[facility] CenterLymphocytes Auto (Bld) [#/Vol]Ordered By: Nayla Dorsey on 77-90-0997Xqswkiaftib (Bld) [#/Vol]1.7 10 3/uL1.2-3.8 [facility] CenterLymphocytes/100 WBC Auto (Bld)Ordered By: Nayla Dorsey on 80-21-9027Rnwogddgbdk/100 WBC (Bld)26.7 %20.5-60.0[facility]woodsH Auto (RBC) [Entitic mass]Ordered By: Nayla Dorsey on 74-16-6642JEE (RBC) [Entitic mass]29.2 pg25.9-34.0[facility] CenterMCHC Auto (RBC) [Mass/Vol]Ordered By: Nayla Dorsey on 02-58-0679UBBS (RBC) [Mass/Vol]33.7 g/dL29.9-35.2FProMedica Memorial HospitalMCV Auto (RBC) [Entitic vol]Ordered By: Nayla Dorsey on 40-09-5080LQU (RBC) [Entitic vol]86.6 fL80.0-94.0[facility] CenterMonocytes Auto (Bld) [#/Vol]Ordered By: Nayla Dorsey on 95-32-7630Lyflcvlgh (Bld) [#/Vol]0.5 10 3/uL0.3-0.8[facility] CenterMonocytes/100 WBC Auto (Bld)Ordered By: Nayla Dorsey on 95-83-2370Haxebpbgm/100 WBC (Bld)7.6 %1.7-12.0[facility] CenterNeutrophils Auto (Bld) [#/Vol]Ordered By: Nayla Dorsey on 73-20-0968Cbvqnmyvwvq (Bld) [#/Vol]4.1 10 3/uL1.4-6.5FProMedica Memorial HospitalNeutrophils/100 WBC Auto (Bld)Ordered By: Nayla Dorsey on 29-91-0737Jiwgxcowypd/100 WBC (Bld)63.3 %43.0-75.0[facility] CenterNo Panel InformationOrdered By: Nayla Dorsey on 27-45-8666Yibzvazfayq # (Auto)0.1 10 3/uL0.0-0.7FProMedica Memorial HospitalImmature Granulocyte # (Auto)0.01 10 3/uL0.00-0.03[facility] CenterPlatelet mean volume Auto (Bld) [Entitic vol]Ordered By: Nayla Dorsey on 29-77-3153Tuirgizm mean volume (Bld) [Entitic vol]10.9 fL9.5-13.5FProMedica Memorial Hospital Platelets Auto (Bld) [#/Vol]Ordered By: Nayla Dorsey on 79-59-0967Qomillfqp (Bld) [#/Vol]181 10 3/oF959-460WtxfrzuduSalem Regional Medical CenterRBC Auto (Bld) [#/Vol]Ordered By: Nayla Dorsey on 04-20-6224HEQ (Bld) [#/Vol]5.28 10 6/uL 4.70-6.10[facility] Southerum or plasma albumin/globulin mass ratioOrdered By: Nayla Dorsey on 36-28-3205Lwszssl/Globulin [Mass ratio]1.2 {ratio}[facility] Southerum or plasma anion gap determination Ordered By: Nayla Dorsey on 25-94-4432Ljbol gap [Moles/Vol]15.0 mmol/L [facility] CenterBasophils Auto (Bld) [#/Vol]on 05-14-2024 Basophils (Bld) [#/Vol]Automated basophil count0.0-0.1FProMedica Memorial HospitalBasophils/100 WBC Auto (Bld)on 60-23-3657Sefchnoig/100 WBC (Bld)Automated basophil %0.2-2.0[facility] CenterEosinophils/100 WBC Auto (Bld)on 09-03-2674Pnkakywkqhu/100 WBC (Bld)Automated eosinophil %0.9-7.0 [facility] CenterErythrocyte distribution width Auto (RBC) [Ratio]on 97-66-4992Jgfipjtvdyu distribution width (RBC) [Ratio]Erythrocyte distribution width [Ratio] by Automated count11.0-15.0[facility] CenterEstimated glomerular filtration rate (GFR) non- Americanon 28-82-8471AVF/1.73 sq M.predicted among non-blacks MDRD (S/P/Bld) [Vol rate/Area]Estimated glomerular filtration rate (GFR) non->=60 mL/min/1.73m 2FProMedica Memorial HospitalHematocrit Auto (Bld) [Volume fraction]on 70-89-7265Iarqtckwfk (Bld) [Volume fraction]Hematocrit [Volume Fraction] of Blood by Automated aoqtrWfs57.0-54.0[facility] CenterHemoglobin [Mass/volume] in Bloodon 65-00-8163Kwpmbrrtcr (Bld) [Mass/Vol] Hemoglobin [Mass/volume] in Blood14.0-18.0[facility] Laboratory - Chemistry and Chemistry - challengeon 78-92-1693Xynqmzp [Mass/Vol] 8.9 mg/dL8.5-10.1FProMedica Memorial HospitalChloride [Moles/Vol]106 mmol/L 98-107[facility] CenterCO2 [Moles/Vol]25.9 mmol/L21.0-32.0 [facility] CenterCreatinine [Mass/Vol]1.19 mg/dL0.70-1.30 [facility] CenterGFR/1.73 sq M.predicted MDRD (S/P/Bld) [Vol rate/Area]mL/min/{1.73_m2}>=60 mL/min/1.73m 2FProMedica Memorial Hospital Glucose [Mass/Vol]147 mg/fMXmrf92-358JsplwsvvqSalem Regional Medical CenterPotassium [Moles/Vol]3.5 mmol/L3.5-5.1FGeorgetown Behavioral Hospitalodium [Moles/Vol] 141 mmol/L761-649KarhituhvSalem Regional Medical CenterUrea nitrogen [Mass/Vol]15.0 mg/dL7.0-18.0[facility] CenterUrea nitrogen/Creatinine [Mass ratio]12.6 mg/mgSalem Regional Medical CenterLaboratory - Hematology and Cell countson 32-95-0921Pvrkjwyx granulocytes/100 WBC (Bld)0.1 %0.0-0.5FProMedica Memorial HospitalLeukocytes [#/volume] corrected for nucleated erythrocytes in Blood by Automated counon 28-02-4328OPF corrected for nucl RBC Auto (Bld) [#/Vol]Leukocytes [#/volume] corrected for nucleated erythrocytes in Blood by Automated coun4.0-11.0[facility] CenterLymphocytes Auto (Bld) [#/Vol]on 23-99-1339Rkvpjqqcdkp (Bld) [#/Vol]Lymphocytes [#/volume] in Blood by Automated count1.2-3.8[facility] CenterLymphocytes/100 WBC Auto (Bld)on 74-65-1140Telatorphyx/100 WBC (Bld)Lymphocytes/100 leukocytes in Blood by Automated count20.5-60.0[facility]woodsH Auto (RBC) [Entitic mass]on 53-75-2763VFD (RBC) [Entitic mass]MCH [Entitic mass] by Automated count25.9-34.0[facility] CenterMCHC Auto (RBC) [Mass/Vol]on 15-42-7922CJUS (RBC) [Mass/Vol]MCHC [Mass/volume] by Automated count29.9-35.2FProMedica Memorial HospitalMCV Auto (RBC) [Entitic vol]on 41-75-4322RGF (RBC) [Entitic vol]MCV [Entitic volume] by Automated count 80.0-94.0[facility] CenterMonocytes Auto (Bld) [#/Vol]on 57-90-3863Kvabrndid (Bld) [#/Vol]Automated blood monocyte count0.3-0.8[facility] CenterMonocytes/100 WBC Auto (Bld)on 01-32-5021Wzzurlspy/100 WBC (Bld)Automated monocyte %1.7-12.0[facility] Neutrophils Auto (Bld) [#/Vol]on 59-50-6544Ainegneffob (Bld) [#/Vol]Neutrophils [#/volume] in Blood by Automated count1.4-6.5FProMedica Memorial Hospital Neutrophils/100 WBC Auto (Bld)on 50-04-8697Ehczwnpslth/100 WBC (Bld)Automated neutrophil %43.0-75.0[facility] CenterNo Panel Informationon 87-35-8055Vczkfner I High Bkcpxkmbelp86.3 pg/mL4.0-76.1FProMedica Memorial HospitalComment on above:CUT-OFF POINTS HAVE BEEN ESTABLISHED BASED ON THE FOURTHUNIVERSAL DEFINITION OF MYOCARDIAL INFARCTION. THE UPPERREFERENCE LIMIT (URL) OF TROPONIN, DEFINED THE 99THPERCENTILE OF cTnI DISTRIBUTION IN A REFERENCE POPULATION,HAS BEEN CONFIRMED THE DECISION THRESHOLD FOR MIDIAGNOSIS.99TH PERCENTILE = 76.2 PG/MLNOTE: HIGH-SENSITIVITY TROPONIN ASSAY IS NOT INTENDED TO BEUSED IN ISOLATION BUT SHOULD BE INTERPRETED IN CONJUNCTIONWITH OTHER DIAGNOSTIC AND CLINICAL INFORMATION.Eosinophils # (Auto) 0.4 10 3/uL0.0-0.7FProMedica Memorial HospitalImmature Granulocyte # (Auto) 0.01 10 3/uL0.00-0.03[facility] CenterPlatelet mean volume Auto (Bld) [Entitic vol]on 16-91-0329Yzxclhxl mean volume (Bld) [Entitic vol]Platelet mean volume [Entitic volume] in Blood by Automated count9.5-13.5FProMedica Memorial HospitalPlatelets Auto (Bld) [#/Vol]on 31-02-9162Lidcrzjxv (Bld) [#/Vol]Platelets [#/volume] in Blood by Automated awlua582-900PmxqgmkyhSalem Regional Medical CenterRBC Auto (Bld) [#/Vol]on 44-26-4336HCZ (Bld) [#/Vol]Erythrocytes [#/volume] in Blood by Automated count4.70-6.10[facility] Serum or plasma anion gap determinationon 45-54-4808Qlumx gap [Moles/Vol]Serum or plasma anion gap determinationSalem Regional Medical CenterBasophils Auto (Bld) [#/Vol]on 30-78-0308Rpuncqlqo (Bld) [#/Vol]0.0 10 3/uL0.0-0.1FProMedica Memorial HospitalBasophils/100 WBC Auto (Bld)on 67-04-8130Iwmaoikuu/100 WBC (Bld)0.4 %0.2-2.0[facility] CenterEosinophils/100 WBC Auto (Bld)on 13-32-4796Natiovvjbgy/100 WBC (Bld)1.8 %0.9-7.0[facility] CenterErythrocyte distribution width Auto (RBC) [Ratio]on 01-17-2024 Erythrocyte distribution width (RBC) [Ratio]12.2 %11.0-15.0[facility] CenterEstimated glomerular filtration rate (GFR) non- Americanon 96-66-0859XIH/1.73 sq M.predicted among non-blacks MDRD (S/P/Bld) [Vol rate/Area]mL/min/{1.73_m2}>=60[facility] CenterGlobulin Calc (S) [Mass/Vol]on 89-00-6516Xavaonsk (S) [Mass/Vol]3.4 g/dLSalem Regional Medical CenterHematocrit Auto (Bld) [Volume fraction]on 17-68-8307Zrlxfskord (Bld) [Volume fraction]49.3 %42.0-54.0[facility] CenterHemoglobin [Mass/volume] in Bloodon 21-99-6059Kvhrcqyhgn (Bld) [Mass/Vol]16.1 g/dL14.0-18.0 [facility] CenterHemoglobin.gastrointestinal [Presence] in Stool on 16-46-3125Scfefweuiz.gastrointestinal Ql (Stl)PositiveAbnormLakeHealth Beachwood Medical CenterLaboratory - Chemistry and Chemistry - challengeon 03-32-9160Pkglnad [Mass/Vol]4.4 g/dL3.4-5.0[facility] CenterALP [Catalytic activity/Vol]105 U/K22-227VcnmdryrcSalem Regional Medical CenterALT [Catalytic activity/Vol]87 U/XEbfd38-74BjlfhgftkSalem Regional Medical CenterAST [Catalytic activity/Vol]151 U/TWveu98-39GolmxjcsdSalem Regional Medical Center Bilirubin [Mass/Vol]0.5 mg/dL0.2-1.0[facility] CenterCalcium [Mass/Vol]9.3 mg/dL8.5-10.1FProMedica Memorial HospitalChloride [Moles/Vol] 104 mmol/M09-129OjxcbfugsSalem Regional Medical CenterCO2 [Moles/Vol]31.2 mmol/L 21.0-32.0[facility] CenterCreatinine [Mass/Vol]1.23 mg/dL 0.70-1.30[facility] CenterGFR/1.73 sq M.predicted MDRD (S/P/Bld) [Vol rate/Area]mL/min/{1.73_m2}>=60[facility] CenterGlucose [Mass/Vol]104 mg/jH05-275KzizkpbhySalem Regional Medical CenterPotassium [Moles/Vol] 3.9 mmol/L3.5-5.1FProMedica Memorial HospitalProtein [Mass/Vol]7.8 g/dL 6.4-8.2FGeorgetown Behavioral Hospitalodium [Moles/Vol]144 mmol/Y745-581 [facility] CenterUrea nitrogen [Mass/Vol]19.0 mg/dLHigh7.0-18.0 [facility] CenterUrea nitrogen/Creatinine [Mass ratio]15.4 mg/mg [facility] CenterLaboratory - Hematology and Cell countson 68-99-8878Lcgivgbn granulocytes/100 WBC (Bld)0.4 %0.0-0.5FProMedica Memorial HospitalLeukocytes [#/volume] corrected for nucleated erythrocytes in Blood by Automated counon 69-70-2259MCY corrected for nucl RBC Auto (Bld) [#/Vol]5.7 10 3/uL4.0-11.0[facility] CenterLymphocytes Auto (Bld) [#/Vol]on 54-78-6433Blbirxyptwa (Bld) [#/Vol]1.6 10 3/uL1.2-3.8[facility] CenterLymphocytes/100 WBC Auto (Bld)on 01-17-2024 Lymphocytes/100 WBC (Bld)28.0 %20.5-60.0[facility] CenterMCH Auto (RBC) [Entitic mass]on 74-48-5047AYX (RBC) [Entitic mass]29.4 pg25.9-34.0 [facility] CenterMCHC Auto (RBC) [Mass/Vol]on 65-35-4649KVEM (RBC) [Mass/Vol]32.7 g/dL29.9-35.2FProMedica Memorial HospitalMCV Auto (RBC) [Entitic vol]on 92-65-3206OXE (RBC) [Entitic vol]90.1 fL80.0-94.0[facility] CenterMonocytes Auto (Bld) [#/Vol]on 99-97-5673Dqminktjw (Bld) [#/Vol]0.6 10 3/uL0.3-0.8[facility] CenterMonocytes/100 WBC Auto (Bld)on 99-05-1805Weserhjde/100 WBC (Bld)10.2 %1.7-12.0[facility] CenterNeutrophils Auto (Bld) [#/Vol]on 51-82-2470Sejpilqqrra (Bld) [#/Vol]3.4 10 3/uL1.4-6.5FProMedica Memorial HospitalNeutrophils/100 WBC Auto (Bld)on 30-06-4224Mlrfoqurctb/100 WBC (Bld)59.2 %43.0-75.0[facility] CenterNo Panel Informationon 84-47-4643Jbwteqdkkvy # (Auto)0.1 10 3/uL0.0-0.7FProMedica Memorial HospitalImmature Granulocyte # (Auto)0.02 10 3/uL0.00-0.03[facility] CenterPlatelet mean volume Auto (Bld) [Entitic vol]on 78-95-3443Khwkqagf mean volume (Bld) [Entitic vol]10.7 fL 9.5-13.5FProMedica Memorial HospitalPlatelets Auto (Bld) [#/Vol]on 08-48-7111Qyyeyucel (Bld) [#/Vol]207 10 3/yJ064-752JmauuuttoSalem Regional Medical CenterRBC Auto (Bld) [#/Vol]on 16-29-4836GGS (Bld) [#/Vol]5.47 10 6/uL4.70-6.10 [facility] Southerum or plasma albumin/globulin mass ratioon 49-78-0026Rijsrht/Globulin [Mass ratio]1.3 {ratio}[facility] Southerum or plasma anion gap determinationon 33-53-6087Tbaes gap [Moles/Vol] 12.7 mmol/LFProMedica Memorial HospitalECG 12 lead ECGon 89-19-7504EAJ 12 lead ECGMIAM[facility] Main [place] [id number] Electrocardiograph Report Signed Patient: Cameron Teresa MR#: [id number] : 2005 Acct:[id number] Age/Sex: 18 / M ADM Date: 11/14/23 [...] axis Borderline ECG Confirmed by Sophie Crandall ([id number]) on 11/15/2023 4:41:42 PM Referred By: Electronically Signed By:Sophie Crandall Transcribed By: MUS Signed By Sophie Crandall MD [address] [place] [address] Physician GroupXR chest 1V portableon 13-24-5887NO chest 1V portableMIAMI VALLEY HOSPITAL Main [place] [id number] XRay Report Signed Patient: Cameron Teresa MR#: [id number] : 2005 Acct:[id number] Age/Sex: 18 / M ADM Date: 11/14/23 [...] FINDINGS Impression dictated by: Azeem Sanchez Jr., DDayna11/14/2023 9:53 AM Dictation Location: [place] [address] Transcribed By: [facility] 11/14/23952 Dictated By: Azeem Sanchez Jr, DO 11/14/23952 Signed By: 11/14/23 0953[facility] Physician GroupAlanine aminotransferase [Enzymatic activity/volume] in Serum or PlasmaOrdered By: Nayla Dorsey on 80-96-6398XYE [Catalytic activity/Vol]19 U/L7-52[facility] CenterAlbumin [Mass/volume] in Serum or Plasma by Bromocresol green (BCG) dye binding methoOrdered By: Nayla Dorsey on 15-89-1331Jokxqio BCG dye [Mass/Vol] 5.0 g/dL3.5-5.7FProMedica Memorial HospitalAlkaline phosphatase [Enzymatic activity/volume] in Serum or PlasmaOrdered By: Nayla Dorsey on 79-34-9678HGH [Catalytic activity/Vol]85 U/J22-084ShgviggdoSalem Regional Medical CenterAspartate aminotransferase [Enzymatic activity/volume] in Serum or PlasmaOrdered By: Nayla Dorsey on 32-17-3944NZF [Catalytic activity/Vol]18 U/N88-28KumihzuoaSalem Regional Medical CenterBilirubin.total [Mass/volume] in Serum or PlasmaOrdered By: Nayla Dorsey on 73-81-2481Toxhrqkck [Mass/Vol]0.6 mg/dL0.3-1.0[facility] CenterCalcium [Mass/volume] in Serum or PlasmaOrdered By: Nayla Dorsey on 90-53-1996Bnxnotf [Mass/Vol]10.1 mg/dL8.6-10.3FProMedica Memorial HospitalCarbon dioxide, total [Moles/volume] in Serum or PlasmaOrdered By: Nayla Dorsey on 69-81-1493ZN4 [Moles/Vol]29.1 mmol/L21.0-31.0[facility] CenterChloride [Moles/volume] in Serum or PlasmaOrdered By: Nayla Dorsey 90-42-0909Micjpgvu [Moles/Vol]104 mmol/R93-082PougeemhiSalem Regional Medical CenterCreatinine [Mass/volume] in Serum or PlasmaOrdered By: Nayla Dorsey on 24-37-9519Zdvaqcsccu [Mass/Vol]1.21 mg/dL0.70-1.30[facility] CenterGlobulin Calc (S) [Mass/Vol]Ordered By: Nayla Dorsey on 73-37-2383Qfdxxqtf (S) [Mass/Vol]2.6 g/dLSalem Regional Medical Center Glucose [Mass/volume] in Serum or PlasmaOrdered By: Nayla Dorsey on 52-69-1331Uizyayy [Mass/Vol]96 mg/vO81-086MzyzrnprpSalem Regional Medical Center Comment on above:ADA recommended reference rangeRandom Glucose Reference Range is dependent on time and content of last meal. Glucose of more than 200 mg/dL in a nonstressed, ambulatory subject supports the diagnosisof Diabetes Mellitus.No Panel InformationOrdered By: Nayla Dorsey on 87-71-4456Qdiwfecdz GFR (CKD-EPI)> 60.0 mL/MinSalem Regional Medical CenterPharmacy Creatinine Clearance (ChemN/[facility] CenterPotassium [Moles/volume] in Serum or PlasmaOrdered By: Nayla Dorsey 25-56-6336Cszisalcn [Moles/Vol]4.9 mmol/L3.5-5.1FProMedica Memorial HospitalProtein [Mass/volume] in Serum or PlasmaOrdered By: Nayla Dorsey 59-17-3195Xwfpxkf [Mass/Vol]7.6 g/dL 6.4-8.9[facility] Southerum or plasma albumin/globulin mass ratioOrdered By: Nayla Dorsey on 82-63-3538Yyxxwwj/Globulin [Mass ratio]1.9 {ratio}[facility] Southerum or plasma anion gap determination Ordered By: Nayla Dorsey on 24-93-5499Cirwz gap [Moles/Vol]12.8 mmol/L 6.0-15.0[facility] Southodium [Moles/volume] in Serum or PlasmaOrdered By: Nayla Dorsey on 20-46-4834Fxwvjo [Moles/Vol]141 mmol/L 136-145[facility] CenterUrea nitrogen [Mass/volume] in Serum or PlasmaOrdered By: Nayla Dorsey on 29-69-7328Xqdq nitrogen [Mass/Vol]15 mg/dL 7-25[facility] CenterC Urineon 72-98-6816Geptfdgh identified Cx Nom (U)Microbiology PROCEDURE: Urine Culture [R1] SOURCE: U CleanCatch BODY SITE: COLLECTED DATE/TIME: 04/04/2023 10:44 EDT RECEIVED DATE/TIME: 04/04/2023 11:38 EDT START DATE/TIME: 04/04/2023 11:38 EDT FREE TEXT SOURCE: JAYDEN DUMONT, JOHN GILES PA-C, JOHN FINAL REPORTS Final Report [] Verified Date/Time: 04/06/2023 11:03 EDT 700 cfu/ml Mixed skin contaminants Performing Locations R1: This test was performed at: [facility], [address] [place] [address], [facility] , , UxqeiaAfcgtdDoctors HospitalComment on above:Performed By: #### [id number] #### [facility] [address] [place] [address] Medicine Office/Clinic Noteon 64-77-4792Hcwcrb Medicine Office/Clinic NoteChief Complaint EST sore throat, sores on tongue, [...] agree with above documented HPI by medical engineer. Portions of this record may have been created with voice recognition artificial intelligence software, specifically [employer], [employer] and or [employer]. Substitutions may have occurred due to the inherent limitations of voice recognition and artificial intelligence software. Patient is a 17-year-old male who presented to convenient care, for sore throat, possible thrush, patient [...] having chills, and headaches, has been taking zlpj-unp-mdruogl Benadryl, and ibuprofen, patient states he has been having urgency frequency, states started yesterday, has been passing a small amount of urine, states hedoes not empty his bladder, patient states he [...] complete sentences, and follows commands appropriately. Head: Normocephalic/atraumatic, no upper respiratory infections noted. Eyes: Pupils equal, round, and reactive to light. Conjunctivae and sclerae normal, Ears: Bilateral TMs Nose: No deformity, discharge, inflammation, or lesions Mouth: Mucous membranes moist possible thrush, no ulcerations, lesions are noted. Posterior pharynxwithout lesions or exudates. Neck: Neck supple. No [...] within normal limits. 17-year-old male presented to [facility], for oral thrush, and dysuria, symptoms [...] day(s), # 240 mL, Refills(s) 0, Pharmacy: [facility], 197, cm, 04/04/23 9:39:00 EDT, Height/Length Dosing, 86, kg, 04/04/23 9:39:00 EDT, Weight Dosing Group A Strep by PCR 2. Dysuria (R30.0: Dysuria) Above Ordered: Urnls Dip Stick Non-Auto w/o Micrscpy POC 80344 3. Vaping-related disorder (U07.0: Vaping-related disorder) We [...] including free telephone support (more content not included)...[facility] HospitalComment on above:Result Comment: Electronically Signed By: JAYDEN DUMONT, JOHN\.br\Date and Time Signed: 04/04/23 10:30 EDTGrp A Strp PCRon [id number] A StrepNegativeDoctors HospitalComment on above:Result Comment: Testing performed using DNA amplification.Performed By: #### [id number] #### [facility] [address] [place], [place] [address]Sah A Strp Intrl CtrlPassNoOhioHealth Doctors Hospital Comment on above:Performed By: #### [id number] #### [facility] [address] [place], [place] [address]Vrldolc Educationon [id number] EducationInfectious Disease Oral Thrush, Adult Oral thrush is an infection in your mouth and throat and on your tongue. It causes white patches toform in your mouth and on your tongue. [...] and nose. If a person has a long- term illness or a weak body defense system, [...] mouth. General instructions ? Take or use yddv-mkl-tqxbapo and prescription medicines only as told by your doctor. ? Eat plain yogurt that has live cultures in it. Read the label to make sure that there are live cultures in your yogurt. ? If you wear false teeth: ? Take them out before you go to bed. ? Trevor them well. ? Soak them in a block cleaner. ? Rinse your mouth with warm [...] provider. Document Revised: 02/10/2022 Document Reviewed: 04/18/2020 [employer] Patient Education ? 2022 [employer] Pulmonary Medicine E-Cigarette or Vaping Use-Associated [...] signs or symptoms? Sympt (more content not included)...Doctors HospitalPatient Letter FTon [id number] Letter [facility] [address], [place] [address] April 04, 2023 CAMERON YODER [address] [place] [address] : 2005 Please excuse CAMERON TERESA from work . Date and/or Time of Absence: From: 04/04/23 May return to work on: 04/05/23 Restrictions: None Comments: Please excuse due to an acute illness. Provider Signature: John Giles PA-C [facility] [address] [place] [address] [facility] [place] [phone] [phone]#[id number]:127[facility] Medicine Office/Clinic Noteon [phone] Medicine Office/Clinic NoteChief Complaint EST TMJ HPI Staff 17 yr old male here for head, neck, and jaw pain has TMJ states he has an appointment next month but it gets really bad History of Present Illness I have reviewed and verified the staff HPI to be accurate for this encounter. Portions of this record have been created with voice recognition software. Occasional wrong-word or?muulo-j-hrmb? substitutions may have occurred due to the inherent limitations of voice recognitionsoftware. 17 yo male presents today with cc [...] teeth at night and will require a nightguardhowever they want to remove these wisdom teeth [...] of. Patient states he was seen [facility] about a month or so ago at that time was treated with steroids muscle relaxerand Toradol. Patient states he had some improvement [...] oral surgeon on Tuesday for removal of bilateralupper wisdom teeth. Discussed with patient to contact [...] relaxer 1 tablet every 8 hours as neededfor muscle spasm. Do not drive or drink alcohol taking this medication as it may make you drowsy. Prescription for prednisone 40 mg daily x5 days is sent to the pharmacy for you. Take this as directed. Refrain from use of NSAID medications while taking the prednisone as they can both cause upset stomach. Tylenol is safest while taking prednisone. (more content not included)...Doctors HospitalComment on above:Result Comment: Electronically Signed By: Manuel DUMONT, Kenroy Burger\.br\Date and Time Signed: 03/08/2308:59 EDTPatient Educationon 59-09-4265Setobbv EducationOrthopedics Temporomandibular Joint Syndrome Temporomandibular joint syndrome (TMJ [...] area of theTMJ. Other symptoms may include: ? Pain when [...] not chew gum. General instructions ? Take rujp-wqb-lsdxauw and prescription medicines only as told by [...] Where to find more information ? National [place] [employer]io[employer] Research: www.nidcr.nih.gov Contact [...] the area of the TMJ, pain when chewingor biting, and being unable to open your jaw all the way. You may also make a clicking sound when you open your mouth. ? TMJ syndrome often goes away on its own. If treatment is needed, it may include medicines to relieve pain, reduce inflammation, or relax the muscles. A splint, bite plate, or mouthpiece may also beused to prevent teeth grinding or jaw clenching. This information is not intended to replace advice given to you by your health care provider. Make sure you discuss any questions you have with your health care provider. Document Revised: 01/24/2022 Document Reviewed: 01/24/2022 [employer] Patient Education ? 2022 [employer]. Cervical Sprain A cervical sprain is also [...] cord, and nerves (ner (more content not included)...NormalAtrium Health Stanlyer Grace Medical CenterCOVID Quick Testingon 78-79-0625EnkhmcXazkjkepKbrrl [employer] Other Quick Strepon 02-06-2023S. pyogenes Org specific cx Ql (Throat)NegativeWibaux [employer] Other Quick [employer] Other Erythrocyte sedimentation rate by Photometric method Ordered By: Mio Nicholson on 47-25-3188ENK Photometric method (Bld) [Velocity]2 mm/hr0-14[facility] CenterTroponin I.cardiac [Mass/volume] in Serum or Plasma by Detection limit <= 0.01 ng/Ordered By: Mio Nicholson on 17-91-5408Xettzmeg I.cardiac DL <= 0.01 ng/mL [Mass/Vol]3.0 pg/mL0.0-20.0 [facility] CenterAlanine aminotransferase [Enzymatic activity/volume] in Serum or PlasmaOrdered By: Saqib Brantley on 02-42-9688VCO [Catalytic activity/Vol]17 U/L7-52[facility] CenterAlbumin [Mass/volume] in Serum or Plasma by Bromocresol green (BCG) dye binding metho Ordered By: Saqib Brantley on 75-49-4756Lezvwvg BCG dye [Mass/Vol]4.4 g/dL 3.5-5.7FProMedica Memorial HospitalAlkaline phosphatase [Enzymatic activity/volume] in Serum or PlasmaOrdered By: Saqib Brantley on 78-36-4667RRJ [Catalytic activity/Vol]69 U/U83-242MumxkisbhSalem Regional Medical CenterAspartate aminotransferase [Enzymatic activity/volume] in Serum or PlasmaOrdered By: Saqib Brantley on 88-91-5905TXU [Catalytic activity/Vol]16 U/P00-84AzqalfcojSalem Regional Medical CenterBasophils Auto (Bld) [#/Vol]Ordered By: Saqib Brantley on 93-21-7243Ijfbtlmue (Bld) [#/Vol]0.0 10*3/uL0.0-0.2FProMedica Memorial HospitalBasophils/100 WBC Auto (Bld)Ordered By: Saqib Brantley on 10-22-2022 Basophils/100 WBC (Bld)0.4 %.[facility] CenterBilirubin.total [Mass/volume] in Serum or PlasmaOrdered By: Saqib Brantley on 10-22-2022 Bilirubin [Mass/Vol]0.6 mg/dL0.3-1.0[facility] CenterCalcium [Mass/volume] in Serum or PlasmaOrdered By: Saqib Brantley 30-13-4876Snlozhx [Mass/Vol]8.7 mg/dL8.6-10.3FProMedica Memorial HospitalCarbon dioxide, total [Moles/volume] in Serum or PlasmaOrdered By: Saqib Brantley on 10-22-2022 CO2 [Moles/Vol]24.7 mmol/L21.0-31.0[facility] CenterChloride [Moles/volume] in Serum or PlasmaOrdered By: Saqib Brantley on 10-22-2022 Chloride [Moles/Vol]107 mmol/J77-740GqmrpkylvSalem Regional Medical CenterCreatine kinase [Enzymatic activity/volume] in Serum or PlasmaOrdered By: Saqib Brantley on 12-89-9085PO [Catalytic activity/Vol]173 U/E28-446ZabbpowncSalem Regional Medical CenterCreatine kinase.MB [Mass/volume] in Serum or PlasmaOrdered By: Saqib Brantley on 31-09-3374GQ.MB [Mass/Vol]1.7 ng/mL0.6-6.3FProMedica Memorial HospitalCreatinine [Mass/volume] in Serum or PlasmaOrdered By: Saqib Brantley on 43-93-2160Eszjwlmukf [Mass/Vol]1.00 mg/dL0.70-1.30[facility] CenterEosinophils Auto (Bld) [#/Vol]Ordered By: Saqib Brantley on 10-22-2022 Eosinophils (Bld) [#/Vol]0.1 10*3/uL0.0-0.45[facility] Eosinophils/100 WBC Auto (Bld)Ordered By: Saqib Brantley on 10-22-2022 Eosinophils/100 WBC (Bld)1.0 %.[facility] CenterErythrocyte distribution width Auto (RBC) [Ratio]Ordered By: Saqib Brantley on 10-22-2022 Erythrocyte distribution width (RBC) [Ratio]13.7 %12.0-14.8[facility] CenterGlobulin Calc (S) [Mass/Vol]Ordered By: Saqib Brantley on 66-39-8307Kefdttul (S) [Mass/Vol]2.4 g/dLSalem Regional Medical Center Glucose Glucometer (BldC) [Mass/Vol]Ordered By: Saqib Brantley on 10-22-2022 Glucose [Mass/Vol]74 mg/dLSalem Regional Medical CenterComment on above: Random Glucose Reference Range is dependent on time and content of last meal. Glucose of more than 200 mg/dL in a nonstressed, ambulatory subject supports the diagnosis of Diabetes Mellitus.Glucose [Mass/volume] in Serum or PlasmaOrdered By: Saqib Brantley on 48-58-2382Cdrhxhk [Mass/Vol]91 mg/zI77-515BerhoakefSalem Regional Medical CenterComment on above:ADA recommended reference rangeRandom Glucose Reference Range is dependent on time and content of last meal. Glucose of more than 200 mg/dL in a nonstressed, ambulatory subject supports the diagnosisof Diabetes Mellitus.Hematocrit Auto (Bld) [Volume fraction]Ordered By: Saqib Brantley on 43-30-4440Jldenzfcnh (Bld) [Volume fraction]46.1 %38.8-50.0 [facility] CenterHemoglobin [Mass/volume] in BloodOrdered By: Saqib Brantley on 16-75-7764Tftqysdsxx (Bld) [Mass/Vol]15.7 g/dL13.0-17.0 [facility] CenterLeukocytes [#/volume] corrected for nucleated erythrocytes in Blood by Automated counOrdered By: Saqib Brantley on 10-22-2022 WBC corrected for nucl RBC Auto (Bld) [#/Vol]10.5 10*3/uL4.1-10.5FProMedica Memorial HospitalLymphocytes Auto (Bld) [#/Vol]Ordered By: Saqib Brantley on 86-92-7963Rdvngktgsun (Bld) [#/Vol]1.8 10*3/uL1.00-4.8[facility] CenterLymphocytes/100 WBC Auto (Bld)Ordered By: Saqib Brantley on 40-13-8348Xndfbelqfgq/100 WBC (Bld)17.4 %.[facility]woodsH Auto (RBC) [Entitic mass]Ordered By: Saqib Brantley on 10-67-6073JLT (RBC) [Entitic mass]29.5 pg27.5-35.2FProMedica Memorial HospitalMCHC Auto (RBC) [Mass/Vol]Ordered By: Saqib Brantley on 96-68-9180KWRA (RBC) [Mass/Vol]34.0 g/dL 32.5-35.6FProMedica Memorial HospitalMCV Auto (RBC) [Entitic vol]Ordered By: Saqib Brantley on 24-63-2526UWD (RBC) [Entitic vol]86.7 fL83.5-101[facility] CenterMonocytes Auto (Bld) [#/Vol]Ordered By: Saqib Brantley on 22-09-5229Qknyuvawa (Bld) [#/Vol]0.7 10*3/uL0.0-0.8[facility] CenterMonocytes/100 WBC Auto (Bld)Ordered By: Saqib Brantley on 10-22-2022 Monocytes/100 WBC (Bld)7.1 %.[facility] CenterNeutrophils Auto (Bld) [#/Vol]Ordered By: Saqib Brantley on 63-52-8183Qszmancqqzs (Bld) [#/Vol] 7.7 10*3/uL1.8-7.7FProMedica Memorial HospitalNeutrophils/100 WBC Auto (Bld)Ordered By: Saqib Brantley on 74-82-3491Pmoqjtxawlf/100 WBC (Bld)74.1 %. [facility] CenterNo Panel InformationOrdered By: Saqib Brantley on 30-70-3565Ypghozw Glucose CommentGlu2: cleaned meterSalem Regional Medical CenterEstimated GFR (CKD-EPI)> 60.0 mL/MinSalem Regional Medical CenterPharmacy Creatinine Clearance (Upkq959.69[facility] Nucleated erythrocytes [Presence] in Blood by Automated countOrdered By: Saqib Brantley on 76-94-7489Inbqtgvrp RBC Auto Ql (Bld)0.1 /100{WBC}0-0.5FProMedica Memorial HospitalPlatelet mean volume Auto (Bld) [Entitic vol]Ordered By: Saqib Brantley on 88-99-4351Zmoctrwd mean volume (Bld) [Entitic vol]9.3 fL 6.6-10.1FProMedica Memorial HospitalPlatelets Auto (Bld) [#/Vol]Ordered By: Saqib Brantley on 79-55-8939Doxoicain (Bld) [#/Vol]174 10*3/jP906-536KzhiitdppSalem Regional Medical CenterPotassium [Moles/volume] in Serum or PlasmaOrdered By: Saqib Brantley on 43-05-9772Hnitcmnzn [Moles/Vol]3.9 mmol/L3.5-5.1FProMedica Memorial HospitalProtein [Mass/volume] in Serum or PlasmaOrdered By: Saqib Brantley on 30-03-1015Uphaxoh [Mass/Vol]6.8 g/dL6.4-8.9[facility] CenterRBC Auto (Bld) [#/Vol]Ordered By: Saqib Brantley on 50-12-0958LFR (Bld) [#/Vol]5.32 10*6/uL3.90-5.60[facility] Southerum or plasma albumin/globulin mass ratioOrdered By: Saqib Brantley on 10-22-2022 Albumin/Globulin [Mass ratio]1.8 {ratio}[facility] Southerum or plasma anion gap determinationOrdered By: Saqib Brantley on 05-80-0369Bwivr gap [Moles/Vol]10.2 mmol/L6.0-15.0[facility] Southerum or plasma creatine kinase MB (CKMB)/total creatine kinase (CK) ratio by calcula Ordered By: Saqib Brantley on 04-59-2954GF.MB Calc [Catalytic fraction]0.9 % 0.00-2.50[facility] Southodium [Moles/volume] in Serum or PlasmaOrdered By: Saqib Brantley on 19-80-3529Chuuyk [Moles/Vol]138 mmol/L 136-145[facility] CenterUrea nitrogen [Mass/volume] in Serum or PlasmaOrdered By: Saqib Brantley on 71-84-4175Yjyw nitrogen [Mass/Vol]16 mg/dL 7[facility] CenterWBC Auto (Bld) [#/Vol]Ordered By: Saqib Brantley on 17-11-6513TIZ (Bld) [#/Vol]10.5 10*3/uL4.1-10.5FProMedica Memorial HospitalAcetaminophen [Mass/volume] in Serum or PlasmaOrdered By: Mehdi Ornelas on 18-20-5784Azwemtpueamlx [Mass/Vol]0.7 ug/mL10.0-30.0[facility] CenterAlanine aminotransferase [Enzymatic activity/volume] in Serum or PlasmaOrdered By: Mehdi Ornelas on 46-44-0510YYH [Catalytic activity/Vol]19 U/L 52[facility] CenterAlbumin [Mass/volume] in Serum or Plasma by Bromocresol green (BCG) dye binding methoOrdered By: Mehdi Ornelas on 10-21-2022 Albumin BCG dye [Mass/Vol]4.9 g/dL3.5-5.7FProMedica Memorial Hospital Alkaline phosphatase [Enzymatic activity/volume] in Serum or PlasmaOrdered By: Mehdi Ornelas on 86-28-9013CAZ [Catalytic activity/Vol]82 U/V97-087RvwaicyovSalem Regional Medical CenterAmphetamine Screen Ql (U)Ordered By: Mehdi Ornelas on 00-87-0595Hthknldjturs Ql (U)NegativeNegativeSalem Regional Medical Center Aspartate aminotransferase [Enzymatic activity/volume] in Serum or PlasmaOrdered By: Mehdi Ornelas on 85-42-1011NIK [Catalytic activity/Vol]19 U/S46-26WfcwslaffSalem Regional Medical CenterAutomated erythrocytes count in urine sediment (number/area)Ordered By: Mehdi Ornelas on 96-21-8316ZHX Auto (Urine sed) [#/Area] 0-1 [HPF]0-4FProMedica Memorial HospitalAutomated leukocytes count in urine sediment (number/area)Ordered By: Mehdi Ornelas on 67-09-9384PQR Auto (Urine sed) [#/Area]None seen [HPF]0-4FProMedica Memorial HospitalBarbiturates [Presence] in Urine by Screen methodOrdered By: Mehdi Ornelas on 10-21-2022 Barbiturates Screen Ql (U)NegativeNegSelect Medical Specialty Hospital - [facility], Inc Basophils Auto (Bld) [#/Vol]Ordered By: Mehdi Ornelas on 45-82-4792Zmcoulegz (Bld) [#/Vol]0.0 10*3/uL0.0-0.2FProMedica Memorial HospitalBasophils/100 WBC Auto (Bld)Ordered By: Mehdi Ornelas on 18-02-2763Fafqitwva/100 WBC (Bld)0.3 % .[facility] CenterBenzodiazepines Screen Ql (U)Ordered By: Mehdi Ornelas on 73-83-2295Nmtgkpdhmsbshtg Ql (U)NegativeNegSelect Medical Specialty Hospital - [facility], IncBenzoylecgonine [Presence] in Urine by Screen method Ordered By: Mehdi Ornelas on 46-99-7261Aevbdelsanhehnx Screen Ql (U)Negative NegativeSalem Regional Medical CenterBilirubin Test strip Ql (U)Ordered By: Mehdi Ornelas on 69-40-7562Ymhamoscb Ql (U)NegativeNegativeSalem Regional Medical CenterBilirubin.total [Mass/volume] in Serum or PlasmaOrdered By: Mehdi Ornelas on 21-16-4249Klpnmltuz [Mass/Vol]0.4 mg/dL0.3-1.0[facility] CenterCalcium [Mass/volume] in Serum or PlasmaOrdered By: Mehdi Ornelas on 84-71-7220Eqezxtg [Mass/Vol]9.9 mg/dL8.6-10.3FProMedica Memorial HospitalCannabinoids [Presence] in Urine by Screen methodOrdered By: Mehdi Ornelas on 68-66-3142Iqwjnqgnjhsj Screen Ql (U)NegativeNegSelect Medical Specialty Hospital - Board[facility], IncComment on above:These are unconfirmed results and should not be used for legal purposes. Drug Cut-Off Concentration: AMPH 1000 ng/mL MACEY 200 ng/mL MAR 200 ng/mL COCM 300 ng/mL OP 300 ng/mL PCP 25 ng/mL THC 20 ng/mLCarbon dioxide, total [Moles/volume] in Serum or PlasmaOrdered By: Mehdi Ornelas on 14-72-4255CH1 [Moles/Vol]20.9 mmol/L21.0-31.0[facility] Chloride [Moles/volume] in Serum or PlasmaOrdered By: Mehdi Ornelas on 10-21-2022 Chloride [Moles/Vol]103 mmol/I63-775MayofhqozSalem Regional Medical CenterColor Auto (U)Ordered By: Mehdi Ornelas 20-23-8295Nvfqy (U)YellowYellowSalem Regional Medical CenterCreatinine [Mass/volume] in Serum or PlasmaOrdered By: Mehdi Ornelas 88-42-9753Rmxfpiaaeh [Mass/Vol]1.15 mg/dL0.70-1.30[facility] CenterEosinophils Auto (Bld) [#/Vol]Ordered By: Mehdi Ornelas on 00-33-4557Iqetmstixif (Bld) [#/Vol]0.0 10*3/uL0.0-0.45[facility] CenterEosinophils/100 WBC Auto (Bld)Ordered By: Mehdi Ornelas on 10-21-2022 Eosinophils/100 WBC (Bld)0.4 %.[facility] CenterErythrocyte distribution width Auto (RBC) [Ratio]Ordered By: Mehdi Ornelas on 10-21-2022 Erythrocyte distribution width (RBC) [Ratio]13.7 %12.0-14.8[facility] CenterEthanol [Mass/volume] in Serum or PlasmaOrdered By: Mehdi Ornelas on 59-17-0514Nlrojxg [Mass/Vol]mg/dLSalem Regional Medical CenterEthanol [Mass/Vol]TNPSalem Regional Medical CenterComment on above:Test not performedGlobulin Calc (S) [Mass/Vol]Ordered By: Mehdi Ornelas on 10-21-2022 Globulin (S) [Mass/Vol]3.1 g/dLSalem Regional Medical CenterGlucose Glucometer (BldC) [Mass/Vol]Ordered By: Mehdi Ornelas on 71-94-8537Rbelydr [Mass/Vol]105 mg/dLSalem Regional Medical CenterComment on above:Random Glucose Reference Range is dependent on time and content of last meal. Glucose of more than 200 mg/dL in a nonstressed, ambulatory subject supports the diagnosis of Diabetes Mellitus.Glucose [Mass/volume] in Serum or PlasmaOrdered By: Mehdi Ornelas on 08-12-2533Rzxzvkq [Mass/Vol]115 mg/kA93-041AbbtssxseSalem Regional Medical CenterComment on above:ADA recommended reference rangeRandom Glucose Reference Range is dependent on time and content of last meal. Glucose of more than 200 mg/dL in a nonstressed, ambulatory subject supports the diagnosisof Diabetes Mellitus.Hematocrit Auto (Bld) [Volume fraction]Ordered By: Mehdi Ornelas 93-30-9027Dzqquoyzhm (Bld) [Volume fraction]48.4 %38.8-50.0 [facility] CenterHemoglobin [Mass/volume] in BloodOrdered By: Mehdi Ornelas 69-75-4516Qvyrxbnzag (Bld) [Mass/Vol]16.5 g/dL13.0-17.0[facility] CenterKetones Auto test strip (U) [Mass/Vol]Ordered By: Mehdi Ornelas on 63-57-7134Dphpzgu (U) [Mass/Vol]1+NegativeSalem Regional Medical CenterLaboratory - UrinalysisOrdered By: Mehdi Ornelas on 94-24-0003Eqaxqkv casts LM Ql (Urine sed)None seen [LPF]0-8[facility] CenterLeukocytes [#/volume] corrected for nucleated erythrocytes in Blood by Automated coun Ordered By: Mehdi Ornelas on 72-25-8719ISY corrected for nucl RBC Auto (Bld) [#/Vol]11.2 10*3/uL4.1-10.5FProMedica Memorial HospitalLymphocytes Auto (Bld) [#/Vol]Ordered By: Mehdi Ornelas on 56-73-2330Pmuuvxtxhfp (Bld) [#/Vol]1.6 10*3/uL1.00-4.8[facility] CenterLymphocytes/100 WBC Auto (Bld) Ordered By: Mehdi Ornelas on 45-88-2607Pfwjtgwtacy/100 WBC (Bld)14.0 %.[facility] SouthwoodsH Auto (RBC) [Entitic mass]Ordered By: Mehdi Ornelas on 50-78-8850NOP (RBC) [Entitic mass]29.5 pg27.5-35.2FProMedica Memorial HospitalMCHC Auto (RBC) [Mass/Vol]Ordered By: Mehdi Ornelas on 10-29-0592HIUD (RBC) [Mass/Vol]34.1 g/dL32.5-35.6FProMedica Memorial HospitalMCV Auto (RBC) [Entitic vol]Ordered By: Mehdi Ornelas on 44-83-1504POM (RBC) [Entitic vol]86.6 fL83.5-101[facility] CenterMagnesium [Mass/volume] in Serum or PlasmaOrdered By: Mehdi Ornelas on 14-35-5471Oroetsgjb [Mass/Vol]1.8 mg/dL1.9-2.7 [facility] CenterMonocyte distribution width [Entitic volume] in Blood by AutomatedOrdered By: Mehdi Ornelas on 53-65-2235Luhqxswr distribution width Auto (Bld) [Entitic vol]17.66 %0.00-20.00[facility] Monocytes Auto (Bld) [#/Vol]Ordered By: Mehdi Ornelas on 29-83-1453Xnvrlxluh (Bld) [#/Vol]0.7 10*3/uL0.0-0.8[facility] CenterMonocytes/100 WBC Auto (Bld)Ordered By: Mehdi Ornelas on 76-10-1225Fkcpdojxg/100 WBC (Bld)6.1 % .[facility] CenterNeutrophils Auto (Bld) [#/Vol]Ordered By: Mehdi Ornelas on 23-28-0915Hseqruhxteu (Bld) [#/Vol]8.9 10*3/uL1.8-7.7FProMedica Memorial HospitalNeutrophils/100 WBC Auto (Bld)Ordered By: Mehdi Ornelas on 34-49-2767Ckizevlroed/100 WBC (Bld)79.2 %.[facility] Nitrite Test strip Ql (U)Ordered By: Mehdi Ornelas on 74-35-6400Slnvxon Ql (U) NegativeNegSelect Medical Specialty Hospital - [facility], IncNo Panel InformationOrdered By: Medhi Ornelas on 79-94-3705Hdpuncl Glucose CommentGlu2: cleaned meterSalem Regional Medical CenterEstimated GFR (CKD-EPI)> 60.0 mL/MinSalem Regional Medical CenterPharmacy Creatinine Clearance (Eypx361.62[facility] CenterNucleated erythrocytes [Presence] in Blood by Automated count Ordered By: Mehdi Ornelas on 27-89-2563Augreasfh RBC Auto Ql (Bld)0.1 /100{WBC} 0-0.5FProMedica Memorial HospitalOpiates [Presence] in Urine by Screen methodOrdered By: Mehdi Ornelas on 13-19-4122Htjqkgo Screen Ql (U)Negative NegativeSalem Regional Medical CenterPhencyclidine Screen Ql (U)Ordered By: Mehdi Ornelas on 73-79-6359Qrkkrddlegqqf Ql (U)NegativeNegSelect Medical Specialty Hospital - [facility], IncPlatelet mean volume Auto (Bld) [Entitic vol]Ordered By: Mehdi Ornelas on 95-10-5808Fpfieeqt mean volume (Bld) [Entitic vol]9.4 fL6.6-10.1 [facility] CenterPlatelets Auto (Bld) [#/Vol]Ordered By: Mehdi Ornelas on 84-75-7359Qihnddgko (Bld) [#/Vol]214 10*3/eO201-050PqgoevglzSalem Regional Medical CenterPotassium [Moles/volume] in Serum or PlasmaOrdered By: Mehdi Ornelas on 48-25-8959Bizjikjsg [Moles/Vol]3.5 mmol/L3.5-5.1FProMedica Memorial HospitalProtein Auto test strip (U) [Mass/Vol]Ordered By: Mehdi Ornelas on 93-44-9226Naozytk (U) [Mass/Vol]Trace mg/dLNegativeSalem Regional Medical CenterProtein [Mass/volume] in Serum or PlasmaOrdered By: Mehdi Ornelas on 70-65-0662Kpstusk [Mass/Vol]8.0 g/dL6.4-8.9[facility] CenterRBC Auto (Bld) [#/Vol]Ordered By: Mehdi Ornelas on 42-82-8525EUA (Bld) [#/Vol]5.59 10*6/uL3.90-5.60[facility] Southalicylates [Mass/volume] in Serum or PlasmaOrdered By: Mehdi Ornelas 95-04-6176Muuiurwlklj [Mass/Vol]mg/dL 15.0-30.0[facility] CenterComment on above:Patients treated with Sulfasalazine may generate a false high result for Salicylate.Serum or plasma albumin/globulin mass ratioOrdered By: Mehdi Ornelas 10-21-2022 Albumin/Globulin [Mass ratio]1.6 {ratio}[facility] Southerum or plasma anion gap determinationOrdered By: Mehdi Ornelas 10-54-9103Cumzj gap [Moles/Vol]16.6 mmol/L6.0-15.0[facility] Southodium [Moles/volume] in Serum or PlasmaOrdered By: Mehdi Ornelas 61-22-5709Yxlkua [Moles/Vol]137 mmol/C430-222DnurmxaxfSelect Medical Specialty Hospital - Columbus Southpecific gravity Auto test strip (U) [Rel density]Ordered By: Mehdi Ornelas 47-32-8062Mfeqoszd gravity (U) [Rel density]1.0231.001-1.030[facility] Squamous epithelial cells detection in urine sediment by light microscopyOrdered By: Mehdi Ornelas on 60-50-8189Nydvwyhqyj cells.squamous LM Ql (Urine sed)None seen [HPF]0-2FProMedica Memorial HospitalUrea nitrogen [Mass/volume] in Serum or PlasmaOrdered By: Mehdi Ornelas on 81-80-4055Sopy nitrogen [Mass/Vol]14 mg/dL01-18[facility] CenterUrine bacteria detection by automated methodOrdered By: Mehdi Ornelas on 68-97-4478Phkkvynx Auto Ql (U)None seenNone SeenSalem Regional Medical CenterUrine clarity by refractometry automated Ordered By: Mehdi Ornelas on 79-98-1456Duneicu Refractometry automated (U)Clear ClearSalem Regional Medical CenterUrine glucose measurement by automated test strip (mass/volume)Ordered By: Mehdi Ornelas on 10-86-6921Ryuxwoq Auto test strip (U) [Mass/Vol]Normal mg/dLNormLakeHealth Beachwood Medical CenterUrine hemoglobin detection by automated test stripOrdered By: Mehdi Ornelas on 08-46-2796Kwghhltkka Auto test strip Ql (U)NegativeNegativeSalem Regional Medical CenterUrine leukocyte esterase detection by automated test stripOrdered By: Mehdi Ornelas on 45-43-0063Wtwzwevtw esterase Auto test strip Ql (U)Negative NegativeSalem Regional Medical CenterUrobilinogen Auto test strip (U) [Mass/Vol]Ordered By: Mehdi Ornelas on 49-90-8943Nbdlqtcfntrf (U) [Mass/Vol] Normal mg/dLNormLakeHealth Beachwood Medical CenterWBC Auto (Bld) [#/Vol]Ordered By: Mehdi Ornelas on 86-18-8065GVI (Bld) [#/Vol]11.2 10*3/uL4.1-10.5FProMedica Memorial HospitalpH Auto test strip (U)Ordered By: Mehdi Ornelas on 14-38-7629aA (U)8.5 [pH]5.0-9.0[facility] CenterAlanine aminotransferase [Enzymatic activity/volume] in Serum or PlasmaOrdered By: Nicole Jarrett on 82-65-5869YUA [Catalytic activity/Vol]20 U/L7[facility] CenterAlbumin [Mass/volume] in Serum or Plasma by Bromocresol green (BCG) dye binding methoOrdered By: Nicole Jarrett on 27-39-8668Lgbrbsa BCG dye [Mass/Vol]4.7 g/dL3.5-5.7FProMedica Memorial HospitalAlkaline phosphatase [Enzymatic activity/volume] in Serum or PlasmaOrdered By: Nicole Jarrett on 01-11-8831FTK [Catalytic activity/Vol]82 U/N36-831YheurfuegSalem Regional Medical CenterAspartate aminotransferase [Enzymatic activity/volume] in Serum or PlasmaOrdered By: Nicole Jarrett on 77-19-1281IDB [Catalytic activity/Vol]23 U/L 13-39[facility] CenterBasophils Auto (Bld) [#/Vol]Ordered By: Nicole Jarrett on 32-07-5442Xvhjtiqlk (Bld) [#/Vol]0.0 10*3/uL0.0-0.2FProMedica Memorial HospitalBasophils/100 WBC Auto (Bld)Ordered By: Nicole Jarrett on 90-89-4083Faxlzgewo/100 WBC (Bld)0.3 %.[facility] Bilirubin.total [Mass/volume] in Serum or PlasmaOrdered By: Nicole Jarrett on 33-93-0101Aijkiuaut [Mass/Vol]0.3 mg/dL0.3-1.0[facility] CenterC reactive protein [Mass/volume] in Serum or PlasmaOrdered By: Nicole Jarrett on 23-54-1006ZOQ [Mass/Vol]< 0.5 mg/dL0.0-0.5FProMedica Memorial Hospital Calcium [Mass/volume] in Serum or PlasmaOrdered By: Nicole Jarrett on 10-13-2022 Calcium [Mass/Vol]9.3 mg/dL8.6-10.3FProMedica Memorial HospitalCarbon dioxide, total [Moles/volume] in Serum or PlasmaOrdered By: Nicole Jarrett on 94-09-8169HC3 [Moles/Vol]26.3 mmol/L21.0-31.0[facility] Chloride [Moles/volume] in Serum or PlasmaOrdered By: Nicole Jarrett on 75-62-7775Vpefeyel [Moles/Vol]105 mmol/A55-405GixriafpvSalem Regional Medical Center Creatinine [Mass/volume] in Serum or PlasmaOrdered By: Nicole Jarrett on 39-27-9509Mndnfptzbo [Mass/Vol]1.03 mg/dL0.70-1.30[facility] CenterEosinophils Auto (Bld) [#/Vol]Ordered By: Nicole Jarrett on 10-13-2022 Eosinophils (Bld) [#/Vol]0.2 10*3/uL0.0-0.45[facility] Eosinophils/100 WBC Auto (Bld)Ordered By: Nicole Jarrett on 10-13-2022 Eosinophils/100 WBC (Bld)2.9 %.[facility] CenterErythrocyte distribution width Auto (RBC) [Ratio]Ordered By: Nicole Jarrett on 10-13-2022 Erythrocyte distribution width (RBC) [Ratio]13.7 %12.0-14.8[facility] CenterGlobulin Calc (S) [Mass/Vol]Ordered By: Nicole Jarrett on 76-39-6486Lhamcchd (S) [Mass/Vol]2.7 g/dLSalem Regional Medical Center Glucose [Mass/volume] in Serum or PlasmaOrdered By: Nicole Jarrett on 10-13-2022 Glucose [Mass/Vol]88 mg/tP09-811HlxxklzyiSalem Regional Medical CenterComment on above:ADA recommended reference rangeRandom Glucose Reference Range is dependent on time and content of last meal. Glucose of more than 200 mg/dL in a nonstressed, ambulatory subject supports the diagnosisof Diabetes Mellitus.HIV 1 and HIV-2 antibody assay with HIV-1 p24 antigen detectionOrdered By: Nicole Jarrett on 56-94-4167FQR 1+2 Ab+HIV1 p24 Ag IA QlNon-ReactiveNon Reactive [facility] CenterComment on above:HIV NegativeHIV-1/HIV-2 antibodies and HIV-1 p24 antigen were NOTdetected. There is no laboratory ev idence of HIV infection.Performed at: [facility] Lab[address] [id number] Director: Ricardo Osorio PhD, Phone: [phone] Hematocrit Auto (Bld) [Volume fraction]Ordered By: Nicole Jarrett on 10-13-2022 Hematocrit (Bld) [Volume fraction]46.4 %38.8-50.0[facility] CenterHemoglobin [Mass/volume] in BloodOrdered By: Nicole Jarrett on 10-13-2022 Hemoglobin (Bld) [Mass/Vol]15.9 g/dL13.0-17.0[facility] Hepatitis A virus Ab [Presence] in Serum by ImmunoassayOrdered By: Nicole Jarrett on 16-83-1631ORW Ab IA Ql (S)PositiveNegativeSalem Regional Medical CenterComment on above:Performed at: [facility] [place] [id number] Director: Ricardo Osorio PhD, Phone: [phone] Hepatitis B virus surface Ag [Presence] in Serum or Plasma by ImmunoassayOrdered By: Nicole Jarrett on 01-48-9779XAT surface Ag IA QlNegativeNegSelect Medical Specialty Hospital - Board[facility], IncHepatitis C virus IgG Ab [Presence] in Serum or Plasma by ImmunoassayOrdered By: Nicole Jarrett on 36-35-9975OXI IgG IA QlNon-ReactiveNon ReactiveSalem Regional Medical CenterLeukocytes [#/volume] corrected for nucleated erythrocytes in Blood by Automated counOrdered By: Nicole Jarrett on 04-42-4346LAX corrected for nucl RBC Auto (Bld) [#/Vol]8.0 10*3/uL4.1-10.5 [facility] CenterLymphocytes Auto (Bld) [#/Vol]Ordered By: Nicole Jarrett on 65-36-1667Kmrimccciop (Bld) [#/Vol]1.7 10*3/uL1.00-4.8 [facility] CenterLymphocytes/100 WBC Auto (Bld)Ordered By: Nicole Jarrett on 26-00-0642Fevwtlqkbgf/100 WBC (Bld)21.3 %.[facility] CenterMCH Auto (RBC) [Entitic mass]Ordered By: Nicole Jarrett on 22-62-6217YNX (RBC) [Entitic mass]30.0 pg27.5-35.2FProMedica Memorial HospitalMCHC Auto (RBC) [Mass/Vol]Ordered By: Nicole Jarrett on 19-17-4305SHBG (RBC) [Mass/Vol]34.4 g/dL32.5-35.6FProMedica Memorial HospitalMCV Auto (RBC) [Entitic vol]Ordered By: Nicole Jarrett on 21-65-9892FYO (RBC) [Entitic vol]87.2 fL83.5-101[facility] CenterMonocytes Auto (Bld) [#/Vol] Ordered By: Nicole Jarrett on 24-98-5094Ddvtlrvpf (Bld) [#/Vol]0.6 10*3/uL 0.0-0.8[facility] CenterMonocytes/100 WBC Auto (Bld)Ordered By: Nicole Jarrett on 70-10-0551Uevzgsfib/100 WBC (Bld)7.1 %.[facility] CenterNeutrophils Auto (Bld) [#/Vol]Ordered By: Nicole Jarrett on 88-57-6611Fgugpkkdvko (Bld) [#/Vol]5.5 10*3/uL1.8-7.7FProMedica Memorial HospitalNeutrophils/100 WBC Auto (Bld)Ordered By: Nicole Jarrett on 10-13-2022 Neutrophils/100 WBC (Bld)68.4 %.[facility] CenterNo Panel InformationOrdered By: Nicole Jarrett on 57-35-4120Kvqiwtubn GFR (CKD-EPI)> 60.0 mL/MinSalem Regional Medical CenterHelodi memorial hospital B Core Total AntibodyNegative NegativeSalem Regional Medical CenterHelodi memorial hospital C InterpretationSee comment. [facility] CenterComment on above:Not infected with HCV unless early or acute infection issuspected (which may be delayed in an immuno compromisedindividual), or other evidence exists to indicate HCVinfection. Hepatitis C RNA QuantitativeN/[facility] CenterPharmacy Creatinine Clearance (ChemN/[facility] Medical CenterNucleated erythrocytes [Presence] in Blood by Automated countOrdered By: Nicole Jarrett on 12-14-3948Cqxyouiso RBC Auto Ql (Bld)0.1 /100{WBC}0-0.5FProMedica Memorial HospitalPlatelet mean volume Auto (Bld) [Entitic vol]Ordered By: Nicole Jarrett on 81-27-6094Ilblxeay mean volume (Bld) [Entitic vol]9.0 fL6.6-10.1 [facility] CenterPlatelets Auto (Bld) [#/Vol]Ordered By: Nicole Jarrett on 99-86-7551Gbekjiguu (Bld) [#/Vol]215 10*3/xS513-600EldphsvlfSalem Regional Medical CenterPotassium [Moles/volume] in Serum or PlasmaOrdered By: Nicole Jarrett on 99-29-4570Yftcvjmjx [Moles/Vol]4.4 mmol/L3.5-5.1FProMedica Memorial HospitalProtein [Mass/volume] in Serum or PlasmaOrdered By: Nicole Jarrett on 14-79-2131Eqysnpm [Mass/Vol]7.4 g/dL6.4-8.9[facility] RBC Auto (Bld) [#/Vol]Ordered By: Nicole Jarrett on 32-52-9664REG (Bld) [#/Vol] 5.32 10*6/uL3.90-5.60[facility] CenterReagin Ab [Presence] in Serum by RPROrdered By: Nicole Jarrett on 33-54-3858Thpswe Ab RPR Ql (S) Non-ReactiveNon ReactiveSalem Regional Medical CenterComment on above: Performed at: [facility] Lab[address] [id number] Director: Ricardo Osorio PhD, Phone: [phone] hepatitis B virus surface antibody detectionOrdered By: Nicole Jarrett on 07-56-1295PCK surface Ab Ql (S)Non-Reactive.[facility] CenterComment on above:Non Reactive: Inconsistent with immunity, less than 10 mIU/mL Reactive: Consistent with immunity, greater than 9.9 mIU/mLSerum or plasma albumin/globulin mass ratioOrdered By: Nicole Jarrett on 92-81-6972Lxoqaur/Globulin [Mass ratio]1.7 {ratio}[facility] Southerum or plasma anion gap determination Ordered By: Nicole Jarrett on 31-15-6076Vwngt gap [Moles/Vol]13.1 mmol/L6.0-15.0 [facility] Southodium [Moles/volume] in Serum or PlasmaOrdered By: Nicole Jarrett on 13-97-2420Fovbxs [Moles/Vol]140 mmol/R583-108NcwdwitjsSalem Regional Medical CenterThyrotropin [Units/volume] in Serum or PlasmaOrdered By: Nicole Jarrett on 73-17-0791ZYP Qn1.31 m[IU]/L0.45-5.33[facility] CenterUrea nitrogen [Mass/volume] in Serum or PlasmaOrdered By: Nicole Jarrett on 87-12-6600Kpfb nitrogen [Mass/Vol]14 mg/dL7-25[facility] CenterVitamin D+Metabolites [Mass/volume] in Serum or PlasmaOrdered By: Nicole Jarrett on 77-24-9302Dupaknx D+Metabolites [Mass/Vol]32.5 ng/tJ24-646 [facility] CenterComment on above:VITAMIN D STATUS 25(OH)VITAMIN D RANGE (ng/mL) Deficient <20 Insufficient 20 to <97Lmppmeqnvf14 to 100Reference: Jose MF,Serenity COTTRELL, Jc HARRELL, et al. Evaluation,treatment, and prevention of vitamin D deficiency; an Endocrine Society clinical practice guideline. JCEM. 2010; 96(7):1911-30.WBC Auto (Bld) [#/Vol]Ordered By: Nicole Jarrett on 52-01-0225JWW (Bld) [#/Vol]8.0 10*3/uL4.1-10.5FProMedica Memorial HospitalALCOHOL (ETHYL)on 04-25-2022 ALCOHOL (ETHYL)Normal0-0.010[facility] Brentwood HospitalComment on above:Result Comment: <0.010 Performed at [address] [address]Dbomdpowr By: #### ETOH #### Main Laboratory [address] [address]KTA with Diffon 38-99-2563IC IMMATURE NEUT0.01 K/ULNormal 0.0-0.1LMount St. Mary HospitalComment on above:Performed By: #### CBCD #### [facility] [place] [address] [place], [place] [address]MCC BASO0.02 K/ULNormal0.00-0.22[facility] Brentwood HospitalComment on above:Performed By: #### CBCD #### [facility] [place] [address] [place], [place] [address]DST EOS0.14 K/ULNormal0-0.45[facility] Brentwood HospitalComment on above:Performed By: #### CBCD #### [facility] [place] [address] [place], [place] [address]LKJ NEUTROPHILS4.33 K/ULNormal1.5-8.0[facility] Comment on above:Performed By: #### CBCD #### [place] [address] [place], [place] [address]YBZ.NEUT.CALCULATED4.33 K/ULNormPhelps Memorial HospitalComment on above:Result Comment: Performed at [address] [address]Xfvdbipdi By: #### CBCD #### [place] [address] [place], [place] [address]Raplslnus/100 WBC (Bld)0.30 %Normal[address] Comment on above:Performed By: #### CBCD #### [place] [address] [place], [place] [address]GEBE TYPEAUTO DIFFNormPhelps Memorial HospitalComment on above: Performed By: #### CBCD #### [place] [address] [place], [place] [address]Bpoqettosxi/100 WBC (Bld)2.20 %Normal0-3[facility] Comment on above:Performed By: #### CBCD #### [facility] [place] [address] [place], [place] [address]Jhhlveyoyxt distribution width (RBC) [Ratio]12.8 %Normal 11.7-15.0[facility] HospitalComment on above:Performed By: #### CBCD #### [facility] [place] [address] [place], [place] [address]Beqdotxdhk (Bld) [Volume fraction]50.6 %Ewyb49-47EzquSuburban Community Hospital & Brentwood HospitalComment on above:Performed By: #### CBCD #### [facility] [place] [address] [place], [place] [address]Gpmyccrsmp (Bld) [Mass/Vol]16.9 g/mYLfqy42.5-16.5[facility]ly [facility] SystemComment on above:Performed By: #### CBCD #### [place] [address] [place], [place] [address]Xwtvgnijmin (Bld) [#/Vol]1.42 10*3/uLNormal1.2-3.2LMount St. Mary HospitalComment on above:Performed By: #### CBCD #### [place] [address] [place], [place] [address]Xaxiidqbajg/100 WBC (Bld)22.50 %Wzsphg93-65NhtfSuburban Community Hospital & Brentwood HospitalComment on above:Performed By: #### CBCD #### [place] [address] [place], [place] [address]RHZ (RBC) [Entitic mass]29.0 rnOmbxmp52-73RybaSuburban Community Hospital & [facility] Comment on above:Performed By: #### CBCD #### [place] [address] [place], [place] [address]INJG41.4 %Kfqhte26-04Vqvj Health SystemComment on above: Performed By: #### CBCD #### [place] [address] [place], [place] [address]DIK (RBC) [Entitic vol]86.8 aDUbszic26-800[facility] Comment on above:Performed By: #### CBCD #### [facility] [place] [address] [place], [place] [address]BKXG PLT VOL10.9 CUNormal7.0-12.6Formerly [facility] SystemComment on above:Performed By: #### CBCD #### [facility] [place] [address] [address]Vftpqmpsc (Bld) [#/Vol]0.39 10*3/uLNormal0-0.8[facility] SystemComment on above:Performed By: #### CBCD #### [address] [address]Nozhkmdxl/100 WBC (Bld)6.20 %Normal0-8[facility] Comment on above:Performed By: #### CBCD #### [address] [address]Towvewfoxew/100 WBC (Bld)0.20 %Normal0.0-1.0[facility] SystemComment on above:Performed By: #### CBCD #### [address] [address]Ttjiptdjqka/100 WBC (Bld)68.60 %Bzaede86-17Iwgh Health SystemComment on above:Performed By: #### CBCD #### [address] [address]OTXE'S0 /100 PDSPepgtr5Tfxq Health SystemComment on above: Performed By: #### CBCD #### [address] [address]Tydzkzyxu (Bld) [#/Vol]223 10*3/vERpamsc334-628Vpfi Health SystemComment on above:Performed By: #### CBCD #### [address] [address]TGC (Bld) [#/Vol]5.83 10*6/uLHigh4.5-5.5[facility] Comment on above:Performed By: #### CBCD #### [facility] [address] [address]DHT-LG88.3 HJZrxxkt34.0-54.0[facility] SystemComment on above:Performed By: #### CBCD #### [facility] [address] [address]KRU (Bld) [#/Vol]6.3 10*3/uLNormal4.5-11.0[facility] Comment on above:Performed By: #### CBCD #### [facility] [place] [address] [place] [address]BSRAHCUQITFDX METABOLIC PANELon 61-49-7618Llcmzxw [Mass/Vol] 4.5 g/dLNormal3.5-5.0[facility] HospitalComment on above:Performed By: #### CPMP #### [facility] [place] [address] [place], [place] [address]Keomrhw/Globulin [Mass ratio]1.7 {ratio}Normal1.5-3.0[facility] Brent[facility] HospitalComment on above:Performed By: #### CPMP #### [place] [address] [place] [place], [place] [address]MND [Catalytic activity/Vol]106 U/ILgqdpj56-163EfmzSuburban Community Hospital & Brentwood HospitalComment on above:Performed By: #### CPMP #### [facility] [place] [address] [place], [place] [address]TYE [Catalytic activity/Vol]16 U/LNormal5-40[facility] HospitalComment on above:Performed By: #### CPMP #### [place] [address] [place], [place] [address]Rksey gap [Moles/Vol]10 mmol/LNormal0-19[facility] Comment on above:Performed By: #### CPMP #### [facility] [place] [address] [place], [place] [address]MDV [Catalytic activity/Vol]16 U/LNormal5-40[facility] HospitalComment on above:Performed By: #### CPMP #### [facility] [place] [address] [place], [place] [address]Govmdelob [Mass/Vol]0.3 mg/dLNormal0.1-1.2LMount St. Mary Hospital Comment on above:Performed By: #### CPMP #### [facility] [place] [address] [place], [place] [address]Zsndegr [Mass/Vol]9.8 mg/dLNormal8.5-10.4[facility] Comment on above:Performed By: #### CPMP #### Main Laboratory [facility] [address] [place], [place] [address]Cxogckqa [Moles/Vol]103 mmol/FIrhgzo50-573WllxSuburban Community Hospital & [facility] Comment on above:Performed By: #### CPMP #### [facility] [place] [address] [place] [address]IY7 [Moles/Vol]28 mmol/IMpdsos23-98OphtSuburban Community Hospital & Brentwood HospitalComment on above:Performed By: #### CPMP #### [facility] [place] [address] [place], [place] [address]Engzoffczt [Mass/Vol]1.1 mg/dLNormal0.4-1.6[facility] HospitalComment on above:Performed By: #### CPMP #### [facility] [place] [address] [place], [place] [address]PBMNPUMNS IDD451 mL/min/1.73 l7ZxirwdQsmgConey Island Hospital Comment on above:Result Comment: Performed at [place] [address] [place] [address]Jyoqvhwkx By: #### CPMP #### [facility] [place] [address] [place], [place] [address]Ygxgvtbl (S) [Mass/Vol]2.6 g/dLNormal1.9-3.7[facility] HospitalComment on above:Performed By: #### CPMP #### [facility] [address] [place], [place] [address]Uszkwzu [Mass/Vol]111 mg/lSVtzk96-33LgkcSuburban Community Hospital & [facility] Comment on above:Performed By: #### CPMP #### [facility] [address] [place] [place], [place] [address]Kfmyzmxhn [Moles/Vol]3.9 mmol/LNormal3.4-5.1LMount St. Mary HospitalComment on above:Performed By: #### CPMP #### [facility] [address] [place], [place] [address]Ofapili [Mass/Vol]7.1 g/dLNormal5.9-7.9[facility] Comment on above:Performed By: #### CPMP #### [facility] [place] [address] [place] [address]Fyawpc [Moles/Vol]141 mmol/MDskdmm101-334[facility] Comment on above:Performed By: #### CPMP #### [facility] [place] [address] [place] [address]Nhff nitrogen [Mass/Vol]15 mg/dLNormal8-25[facility] Comment on above:Performed By: #### CPMP #### [facility] [place] [address] [place] [address]Dxny nitrogen/Creatinine [Mass ratio]13.6 mg/mgNormal8-21 [facility] Brent[facility] HospitalComment on above:Performed By: #### CPMP #### [facility] [place] [address] [place] [address]KSRzz 38-57-0957HarbiycfboepdcufkEKG Ventricular Rate : 112 BPM Atrial Rate : 112 BPM P-R Interval : 134 ms QRS Duration : 78 ms Q-T Interval : 302 ms QTC Calculation(Bazett) : 412 ms Calculated P Freer : 81 degrees Calculated R Freer : 103 degrees Calculated T Freer : 73 degrees Diagnosis:Sinus tachycardia Biatrial enlargement Rightward axis Pulmonary disease pattern RSR' or QR pattern in V1 suggests right ventricular conduction delay ST elevation, consider early repolarization, pericarditis, or injury Abnormal ECG When compared with ECG of 26-MAR-2020 23:11, Vent. rate has increased BY 52 BPM Confirmed by ENZO NAM ([id number]) on 04/30/2022 12:14:14 [facility] CenterLaboratoryon 69-04-0403Ftbi screen comment (U) [Interp]Urine Drug Comment These Toxicological Screening Tests provide [...] OXYCODONE 100 ng/ml (Reference Range: not available) [facility] EnterpriseLaboratory - Chemistry and Chemistry - challengeon 04-25-2022 Albumin [Mass/Vol]Albumin 4.5 GM/DL (3.5-5.0 GM/DL)3.5 - 5.0 GM/DLLHS [place] Albumin/Globulin [Mass ratio]Albumin Globulin Ratio 1.7 RATIO (1.5-3.0 RATIO)1.5 - 3.0 RATIOLHS EnterpriseALP (Bld) [Catalytic activity/Vol]Alk Phosphatase 106 U/L (35-125 U/L)35 - 125 U/LLHS EnterpriseALT [Catalytic activity/Vol]ALT 16 U/L (5-40 U/L)5 - 40 U/LLHS EnterpriseAnion gap [Moles/Vol]Anion Gap 10 MMOL/L (0-19 MMOL/L)0 - 19 MMOL/LLHS EnterpriseAST [Catalytic activity/Vol]AST 16 U/L (5-40 U/L)5 - 40 U/LLHS EnterpriseBilirubin [Mass/Vol]Total Bilirubin 0.3 MG/DL (0.1- 1.2 MG/DL)0.1 - 1.2 MG/DLLHS EnterpriseCalcium [Mass/Vol]Calcium 9.8 MG/DL (8.5- 10.4 MG/DL)8.5 - 10.4 MG/DLLHS EnterpriseChloride [Moles/Vol]Chloride 103 MMOL/L (97-107 MMOL/L)97 - 107 MMOL/LLHS EnterpriseCO2 [Moles/Vol]Carbon Dioxide 28 MMOL/L (24-31 MMOL/L)24 - 31 MMOL/LLHS EnterpriseCreatinine [Mass/Vol]Creatinine R 1.1 MG/DL (0.4-1.6 MG/DL)0.4 - 1.6 MG/DLLHS EnterpriseGFR/1.73 sq M.predicted MDRD (S/P/Bld) [Vol rate/Area]EGFR 100 mL/min/1.73 m2 (Reference Range: not available) Performed at [address] [address] [place] Globulin (S) [Mass/Vol]Globulin 2.6 G/DL (1.9-3.7 G/DL)1.9 - 3.7 G/DLHS EnterpriseGlucose [Mass/Vol]Glucose 111 MG/DL H (65-99 MG/DL)High65 - 99 MG/DL LHS EnterprisePotassium [Moles/Vol]Potassium R 3.9 MMOL/L (3.4-5.1 MMOL/L)3.4 - 5.1 MMOL/LLHS EnterpriseProtein [Mass/Vol]Total Protein 7.1 G/DL (5.9-7.9 G/DL) 5.9 - 7.9 G/DLBLUE MOUNTAIN HOSPITAL EnterpriseSodium [Moles/Vol]Sodium 141 MMOL/L (133-145 MMOL/L) 133 - 145 MMOL/LLHS EnterpriseUrea nitrogen [Mass/Vol]BUN 15 MG/DL (8-25 MG/DL)8 - 25 MG/DLBLUE MOUNTAIN HOSPITAL EnterpriseUrea nitrogen/Creatinine [Mass ratio]BUN Creatinine Ratio 13.6 RATIO (8-21 RATIO)8 - 21 RATIOBLUE MOUNTAIN HOSPITAL EnterpriseLaboratory - Drug toxicologyon 60-96-0300Eueukwudzkxt Screen method >1000 ng/mL Ql (U)Urine Amphetamine NEGATIVE (Reference Range: not available) S EnterpriseBarbiturates Screen method >300 ng/mL Ql (U)Urine Barbiturate NEGATIVE (Reference Range: not available) [facility] EnterpriseBenzodiazepines Screen method >300 ng/mL Ql (U)Urine Benzodiazepine NEGATIVE (Reference Range: not available) [facility] EnterpriseBenzoylecgonine Screen method >300 ng/mL Ql (U)Urine Cocaine Metabolites NEGATIVE (Reference Range: not available) S EnterpriseCannabinoids Screen method >50 ng/mL Ql (U)THC/Cannabinoids NEGATIVE (Reference Range: not available) S EnterpriseEthanol [Mass/Vol]Alcohol <0.010 Performed at [address] [place] [address] GM/DL (0-0.010 GM/DL)0 - 0.010 GM/DLL EnterpriseMethadone Ql (U)Urine Methadone NEGATIVE (Reference Range: not available) S EnterpriseOpiates Screen method >300 ng/mL Ql (U)Urine Opiate NEGATIVE (Reference Range: not available) [facility] EnterpriseoxyCODONE Ql (U)Urine Oxycodone NEGATIVE Performed at [address] [address] (Reference Range: not available) [facility] EnterprisePhencyclidine Screen method >25 ng/mL Ql (U)Urine PCP NEGATIVE (Reference Range: not available) [facility] EnterpriseLaboratory - Hematology and Cell countson 25-53-1040Odxcjvwhf (Bld) [#/Vol]Abs Baso 0.02 K/UL (0.00-0.22 K/UL)0.00 - 0.22 K/ULLHS [place] Basophils/100 WBC (Bld)Basophil 0.30 % (0-1 %)0 - 1 %S EnterpriseDifferential cell count method Nom (Bld)Diff Type AUTO DIFF (Reference Range: not available) [facility] EnterpriseEosinophils (Bld) [#/Vol]Abs Eos 0.14 K/UL (0-0.45 K/UL)0 - 0.45 K/ULLHS EnterpriseEosinophils/100 WBC (Bld)Eosinophil 2.20 % (0-3 %)0 - 3 %S EnterpriseErythrocyte distribution width (RBC) [Entitic vol]RDW SD 40.3 FL (37.0-54.0 FL)37.0 - 54.0 FLLHS EnterpriseErythrocyte distribution width (RBC) [Ratio]RDW CV 12.8 % (11.7-15.0 %)11.7 - 15.0 %S EnterpriseHematocrit (Bld) [Volume fraction]HCT 50.6 % H (41-50 %)High41 - 50 %S EnterpriseHemoglobin (Bld) [Mass/Vol]HGB 16.9 GM/DL H (13.5-16.5 GM/DL)High13.5 - 16.5 GM/DLLHS EnterpriseImmature granulocytes (Bld) [#/Vol]Abs Imm Neut 0.01 K/UL (0.0-0.1 K/UL)0.0 - 0.1 K/ULLHS EnterpriseLymphocytes (Bld) [#/Vol]Abs Lymph 1.42 K/UL (1.2-3.2 K/UL)1.2 - 3.2 K/ULLHS EnterpriseLymphocytes/100 WBC (Bld)Lymphocyte 22.50 % (20-40 %)20 - 40 %LHS EnterpriseMCH (RBC) [Entitic mass]MCH 29.0 PG (26- 34 PG)26 - 34 PGLHS EnterpriseMCHC (RBC) [Mass/Vol]MCHC 33.4 % (31-37 %)31 - 37 %S EnterpriseMCV (RBC) [Entitic vol]MCV 86.8 FL (80-100 FL)80 - 100 FLLHS EnterpriseMonocytes (Bld) [#/Vol]Abs Dawson 0.39 K/UL (0-0.8 K/UL)0 - 0.8 K/ULLHS EnterpriseMonocytes/100 WBC (Bld)Monocyte 6.20 % (0-8 %)0 - 8 %S [place] Neutrophils (Bld) [#/Vol]Abs.Neut.Calculated 4.33 K/UL (Reference Range: not available) Performed at [address] [id number] [place] Neutrophils (Bld) [#/Vol]Abs Neut 4.33 K/UL (1.5-8.0 K/UL)1.5 - 8.0 K/ULLHS EnterpriseNeutrophils.immature/100 WBC (Bld)Immature Neut % 0.20 % (0.0-1.0 %) 0.0 - 1.0 %S EnterpriseNucleated RBC/100 WBC (Bld) [Ratio]NRBCs 0 /100 WBC (0 /100 WBC)S EnterprisePlatelet mean volume (Bld) [Entitic vol]MPV 10.9 CU (7.0- 12.6 CU)7.0 - 12.6 CULHS EnterprisePlatelets (Bld) [#/Vol]PLT 223 K/UL (150-450 K/UL)150 - 450 K/ULLHS EnterpriseRBC (Bld) [#/Vol]RBC 5.83 M/UL H (4.5-5.5 M/UL) High4.5 - 5.5 M/ULLHS EnterpriseSegmented neutrophils/100 WBC (Bld)Granulocyte 68.60 % (50-70 %)50 - 70 %[facility] EnterpriseWBC (Bld) [#/Vol]WBC 6.3 K/UL (4.5-11.0 K/UL)4.5 - 11.0 K/ULLHS EnterpriseLaboratory - Microbiology and Antimicrobial susceptibilityon [id number] RNA JERRELL+probe Ql (Nph)FLU A by PCR NEGATIVE (Reference Range: not available) [facility] EnterpriseFLUBV RNA JERRELL+probe Ql (Nph)FLU B by PCR NEGATIVE (Reference Range: not available) [facility]bourOekzpewrtkPSNA-OnZ-2 (COVID-19) RNA JERRELL+probe Ql (Unsp spec)SARS-CoV-2 by PCR NEGATIVE (NEG )[facility] BarbourItvgdzozamFIOJ-YwF-2,INFLUENZA A/B NUCLEIC ACID TESTon 05-98-8491OAA DISCLAIMERNoConey Island HospitalComment on above:Result Comment: This test has been authorized by [...] is terminated or revoked sooner. Performed at [place] [id number] By: #### FLUCOV #### [address] [address]WVP A by PCRNegativeNoConey Island HospitalComment on above:Performed By: #### FLUCOV #### [address] [address]HEQ B by PCRNegativeLewisGale Hospital Alleghany SystemComment on above:Performed By: #### FLUCOV #### [address] [address]AMNF-RgS-0 (COVID-19) RNA JERRELL+probe Ql (Unsp spec)Negative NormalNEGMapleton Health SystemComment on above:Performed By: #### FLUCOV #### [address] [address]WDXUO DRUG SCREENon 59-76-4289ZTOOWYPYLYE/ECSTASYNegative [facility] Health SystemComment on above:Performed By: #### UDS #### [address] [address]NVWNUHDIAEPNzghkpjnXceghjLxes Health SystemComment on above: Performed By: #### UDS #### [address] [place] [address]EAWLBZRHESHEJHAmwpqjxqYxdtbtAumh Health SystemComment on above:Performed By: #### UDS #### [address], [place] [address]YQYIKKW METABOLITESNegativeLewisGale Hospital Alleghany SystemComment on above:Performed By: #### UDS #### [address] [place] [address]AMKQMGNXQFqdcntsbMxkrooHlft Health SystemComment on above: Performed By: #### UDS #### [address] [place] [address]MNSNVECkravkawZimyopWdfl Health SystemComment on above: Performed By: #### UDS #### [facility] [address] [place] [address]SCMNDLKJTJrwqswAbdr Health SystemComment on above:Result Comment: NEGATIVE Performed at [address] [place] [address]Jopnhdqjz By: #### UDS #### [address] [address]KJEOwppvwubEoikdjMtbv Health SystemComment on above: Performed By: #### UDS #### [address] [address]TLD/CANNABINOIDSNegativeVassar Brothers Medical CenterComment on above:Performed By: #### UDS #### [address] [address]HGIQAXKJdncjmGagcVassar Brothers Medical CenterComment on above:Result Comment: These Toxicological Screening Tests provide unconfirmed qualitative [...] 1000 ng/ml BARBITURATE 200 ng/ml OXYCODONE 100 ng/mlPerformed By: #### UDS #### [address] [address]Ifcch Pressure Cuff Sizeon 40-49-4654Arkl risk assessmenta) No falls within the last yearM[facility] Work Phone: Tobacco use status CPHSb) NoMPCox Branson [facility] Work Phone: blood Pressure Cuff SizeAdultMoberly Regional Medical Center [facility] Care Work Phone: cNOVon 31-31-1533RAABZkmfmn Visit ([facility]) CAMERON TERESA ([id number]) 1 M Date Time Provider Department 08/25/21 [...] without erythema or tonsill (more content not included)...NormalGenesis Hospital by IFA w/Reflexon 79-75-4340AQH PatternNegativeNormalCSelect Medical [facility] on above:Performed By: #### WSR, TSH, CBCDIF, FT4, CMP #### [place] [address] [place] [address] FVS TiterNegativeNormalNegativeTuscarawas Hospital on above:Result Comment: Normal range : negative at <1:80 serum dilution.Performed By: #### WSR, TSH, CBCDIF, FT4, CMP #### [place] [address] [place] [address] Gxibppt Ab IF (S) [Titer]NegativeNormalNegativeTuscarawas Hospital on above:Result Comment: Normal range : negative at <1:80 serum dilution. Approximately 6% of patients with connective tissue diseases with low positive EIA values are negative by IFA. Recommend follow-up with specific antinuclear antibodies if clinically indicated. Test performed using Indirect Fluorescence Immunoassay technology (IFA) using HEp-2 cells.Performed By: #### WSR, TSH, CBCDIF, FT4, CMP #### [facility] [address] [place] [address] Jpiv-Neutro.Cyto.Abon 32-04-1294UDDF InterpretationEquivocal staining seen on the ethanol (indirect immunofluorescence screen) slide but negative results on the follow up confirmatory testing. Anti-nuclear antibody test may be considered. Clinical correlation is required.NormalTuscarawas Hospital on above:Performed By: #### WSR, TSH, CBCDIF, FT4, CMP #### [place] [address] Z-ANCA FluorescenceNegativeNormalNegativeCoshocton Regional Medical Center Comment on above:Performed By: #### WSR, TSH, CBCDIF, FT4, CMP #### [place] [address] Rgshcnfksdmgwtv Ab<0.2Normal<1.0[facility] on above:Performed By: #### WSR, TSH, CBCDIF, FT4, CMP #### [place] [address] T-ANCA FluorescenceNegativeNormalNegativeCoshocton Regional Medical Center Comment on above:Performed By: #### WSR, TSH, CBCDIF, FT4, CMP #### [place] [address] Mljpytgzim-3 Ab<0.2Normal<1.0[facility] on above:Performed By: #### WSR, TSH, CBCDIF, FT4, CMP #### [place] [address] Ucsfn ReviewReviewed by Ricardo Burdick M.D., Ph.D ([id number])Normal [facility] on above:Performed By: #### WSR, TSH, CBCDIF, FT4, CMP #### [place] [address] D-Reactive Proteinon 09-02-8641EWZ [Mass/Vol]mg/LNormal<0.9CSelect Medical [facility] Clinic [facility] on above:Performed By: #### WSR, TSH, CBCDIF, FT4, CMP #### [place] [address] PREXE Reflexon 01-44-5613RTVUG ReflexBilled for services performed NormalUniversity Hospitals Samaritan Medical Centerment on above:Performed By: #### WSR, TSH, CBCDIF, FT4, CMP #### [facility] [address] [place], [place] [address] PHEXqs 06-79-8352VBCBEiatwc Visit (PERHMT) CAMERON TERESA ([id number]) 1 M Date Time Provider Department 07/28/21 10:00 AM ALEKSANDRA ROSS [facility] During your visit today, we recorded the following information about you: Temperature Pulse Respiration Blood pressure 98.5 degrees 90/minute 18/minute 110/62 Weight Height 83.9 kg 1.956 m Aleksandra Ross MD 08/02/2021 9:41 PM Signed INITIAL OUTPATIENT VISIT PEDIATRIC RHEUMATOLOGY SERVICE DATE: 07/28/2021 REFERRING PHYSICIAN: Jaxson Starks [address] [place] [address] PRIMARY CARE PHYSICIAN: Jaxson Starks DO ACCOMPANIED [...] hr capsule T (more content not included)... NormalCoshocton Regional Medical CenterPANKY Reflexon 18-08-4104PTXVH ReflexBilled for services performedNormalCMary Rutan HospitalComment on above:Performed By: #### WSR, TSH, CBCDIF, FT4, CMP #### [facility] ARKeX [address] [place] [address] FEI and Differentialon 47-52-2305Rvi Baso<0.03Normal<0.11CMary Rutan HospitalComveterans affairs medical center on above:Performed By: #### WSR, TSH, CBCDIF, FT4, CMP #### [facility] [address] [place], [place] [address] Czt Mono0.59 k/uLNormal<0.87Coshocton Regional Medical CenterComveterans affairs medical center on above:Performed By: #### WSR, TSH, CBCDIF, FT4, CMP #### [facility] AR[facility] [address] [place], [place] [address] Jjp Neut2.87 k/uLNormal1.45-7.50[facility] on above:Performed By: #### WSR, TSH, CBCDIF, FT4, CMP #### [facility] [address] [place], [place] [address] Kedcxkjj nRBC<0.01Normal<0.01[facility] on above:Performed By: #### WSR, TSH, CBCDIF, FT4, CMP #### [place] [address] [place], [place] [address] Ybzrgexza/100 WBC (Bld)0.4 %NormalTuscarawas Hospital on above:Performed By: #### WSR, TSH, CBCDIF, FT4, CMP #### [place] [address] SVKGVJjmg DiffNormalCSelect Medical [facility] on above: Performed By: #### WSR, TSH, CBCDIF, FT4, CMP #### [place] [address] Vvgxzejirdb (Bld) [#/Vol]0.08 10*3/uLNormal<0.46[facility] on above:Performed By: #### WSR, TSH, CBCDIF, FT4, CMP #### [address] [address] Dodyfnenqhc/100 WBC (Bld)1.5 %NormalCoshocton Regional Medical Center Comment on above:Performed By: #### WSR, TSH, CBCDIF, FT4, CMP #### [place] [address] [place], [place] [address] Udfgkqwiipf distribution width (RBC) [Ratio]12.9 %Axsjni37.5-15.0 [facility] on above:Performed By: #### WSR, TSH, CBCDIF, FT4, CMP #### [place] [address] [place], [place] [address] Fvyejczmjl (Bld) [Volume fraction]48.3 %Kdajat32.0-51.0[facility] on above:Performed By: #### WSR, TSH, CBCDIF, FT4, CMP #### [place] [address] Hkiqxfavuw (Bld) [Mass/Vol]16.2 g/wRXfscab09.0-17.0[facility] on above:Performed By: #### WSR, TSH, CBCDIF, FT4, CMP #### [place] [address] Nxwusbfizjk (Bld) [#/Vol]1.61 10*3/uLNormal1.00-4.00[facility] on above:Performed By: #### WSR, TSH, CBCDIF, FT4, CMP #### [place] [address] Jvczrovufbq/100 WBC (Bld)31.1 %NormalCoshocton Regional Medical Center Comment on above:Performed By: #### WSR, TSH, CBCDIF, FT4, CMP #### [place] [address] ZSI83.8 kEXqhqfq86.0-34.0[facility] on above: Performed By: #### WSR, TSH, CBCDIF, FT4, CMP #### [place] [phone] (RBC) [Mass/Vol]33.5 g/jSSllome65.5-36.0[facility] on above:Performed By: #### WSR, TSH, CBCDIF, FT4, CMP #### [place] [address] JRE (RBC) [Entitic vol]85.8 iKSzrfmr96.0-100.0[facility] on above:Performed By: #### WSR, TSH, CBCDIF, FT4, CMP #### [place] [address] Evkobassh/100 WBC (Bld)11.4 %NormalUniversity Hospitals Samaritan Medical Centerment on above:Performed By: #### WSR, TSH, CBCDIF, FT4, CMP #### [place] [address] Sdbffelqnlf/100 WBC (Bld)55.6 %NormalCoshocton Regional Medical Center Comment on above:Performed By: #### WSR, TSH, CBCDIF, FT4, CMP #### [place] [address] DMQZk1.0 /100 OGYFiwacc3NyuiazekpTuscarawas Hospital on above: Performed By: #### WSR, TSH, CBCDIF, FT4, CMP #### [place] [address] Rqrvabvh mean volume (Bld) [Entitic vol]11.3 fLNormal9.0-12.7 [facility] on above:Performed By: #### WSR, TSH, CBCDIF, FT4, CMP #### [place] [address] Izhqcwgde (Bld) [#/Vol]197 10*3/dNDaaqst646-088KtryucichTuscarawas Hospital on above:Performed By: #### WSR, TSH, CBCDIF, FT4, CMP #### [place] [address] YSP (Bld) [#/Vol]5.63 10*6/uLNormal4.20-6.00[facility] on above:Performed By: #### WSR, TSH, CBCDIF, FT4, CMP #### [place] [id number] HKK (Bld) [#/Vol]5.17 10*3/uLNormal3.70-11.00University Hospitals Samaritan Medical Centerment on above:Performed By: #### WSR, TSH, CBCDIF, FT4, CMP #### [facility] [address] [place], [place] [address] XKWZcj 89-34-9601LGWDKmcozm Visit (PEDSMT) CAMERON TERESA ([id number]) 1 M Date Time Provider Department 07/08/21 [...] SALINE) 0.65 % nasal spray Use 1 Rodney in the nose as needed. albuterol HFA [...] drinks Go! Be healthy, inside and out! [email or web address] Referring Provider: SELF [200] Allergies As of Date: 07/08/2021 (No Known Allergies) Date Reviewed: 07/08/2021 Reviewed by: Jaxson Starks DO - Fully Assessed Primary Visit Diagnosis:Hypothermia due to exposure [T68.XXXA] Order(s):CBC + DIFF [SQCBCDIF] Order #: [id number] FUTURE SED RATE WESTERGREN [SQWSR] Order #: [id number] FUTURE T4 FREE/FREE THYROX [SQFT4] Order #: [id number] FUTURE TSH BLD [SQTSH] Order #: [id number] FUTURE COMP METABOLIC PANEL [SQCMP] Order #: [id number] FUTURE Prescriptions as of 07/08/2021 - ibuprofen (MOTRIN IB) 200 mg tablet Take 600 mg by mouth every 6 hours as needed. - s (more content not included)...NormalKettering Health Troy Metabolic Panelon 09-34-2511Uduersf [Mass/Vol]4.9 g/dLHigh3.2-4.5CSelect Medical [facility] Clinic [facility] on above:Performed By: #### WSR, TSH, CBCDIF, FT4, CMP #### [facility] [address] [place] [address] UPN [Catalytic activity/Vol]122 U/WRhllju53-982BxxlsjypyTuscarawas Hospital on above:Result Comment: Reference ranges were not locally established for this patient's age group. The normal values are based on the following source: Loida MP, Yusuf AH, et al. CLSI based transference of the CALIPER database of pediatric reference intervals from Gomez to Pema, Ortho, Jeison, and Siemens Clinical Chemistry Assays: Direct validation using reference samples from the CALIPER cohort. Clin Biochem.Performed By: #### WSR, TSH, CBCDIF, FT4, CMP #### [facility] ARKeX [facility] [place] [address] QZW [Catalytic activity/Vol]25 U/UZrquzc07-12WyecepyfpTuscarawas Hospital on above:Result Comment: (NOTE) Reference ranges for this patient's age group have not been established. These reference ranges reflect verified or established ranges for the adult population. Interpret these ranges wtih caution using clinical context and additional reference resources.Performed By: #### WSR, TSH, CBCDIF, FT4, CMP #### [facility] ARKe[facility] [address] [place], [place] [address] Lckrw gap [Moles/Vol]12 mmol/LNormal9-18[facility] Comment on above:Result Comment: (NOTE) Reference ranges for this patient's age group have not been established. These reference ranges reflect verified or established ranges for the adult population. Interpret these ranges with caution using the clinical context and additional reference resources.Performed By: #### WSR, TSH, CBCDIF, FT4, CMP #### [facility] ARKeX [facility] [place], [place] [address] PXQ [Catalytic activity/Vol]25 U/XJnwrys61-81JcltesosfTuscarawas Hospital on above:Result Comment: (NOTE) Reference ranges for this patient's age group have not been established. These reference ranges reflect verified or established ranges for the adult population. Interpret these ranges with caution using clinical context and additional reference resources.Performed By: #### WSR, TSH, CBCDIF, FT4, CMP #### [facility] ARKeX [facility] [place] [id number] Teudonwir [Mass/Vol]0.3 mg/dLNormal0.2-1.3CMary Rutan Hospital Comment on above:Result Comment: (NOTE) Reference ranges for this patient's age group have not been established. These reference ranges reflect verified or established ranges for the adult population. Interpret these ranges with caution using the clinical context and additional reference resources.Performed By: #### WSR, TSH, CBCDIF, FT4, CMP #### [place] [address] [place], [place] [address] Dgsstfi [Mass/Vol]10.2 mg/dLNormal8.4-10.2CMary Rutan Hospital Comment on above:Performed By: #### WSR, TSH, CBCDIF, FT4, CMP #### [address] [address] Gkwiajcr [Moles/Vol]105 mmol/ZNmuuik84-543FbqttgkcpCoshocton Regional Medical Center Comment on above:Result Comment: (NOTE) Reference ranges for this patient's age group have not been established. These reference ranges reflect verified or established ranges for the adult population. Interpret these ranges with caution using the clinical context and additional reference resources.Performed By: #### WSR, TSH, CBCDIF, FT4, CMP #### [place] [address] [place], [place] [address] WW6 [Moles/Vol]24 mmol/NTinxvc62-94LefdivtmlCoshocton Regional Medical CenterComment on above:Result Comment: (NOTE) Reference ranges for this patient's age group have not been established. These reference ranges reflect verified or established ranges for the adult population. Interpret these ranges with caution using the clinical context and additional reference resources.Performed By: #### WSR, TSH, CBCDIF, FT4, CMP #### [place] [address] [place], [place] [address] Xqgcmewwey [Mass/Vol]1.19 mg/dLNormal0.73-1.22Coshoct[facility] Regional Medical CenterComveterans affairs medical center on above:Result Comment: Reference ranges for this patient's age group have not been established. These reference ranges reflect verified or established ranges for the adult population. Interpret these rangeswith caution using the clinical context and additional reference resources.Performed By: #### WSR, TSH, CBCDIF, FT4, CMP #### [facility] AR[facility] [address] [place], [place] [address] kWSZ-Ped. Factor0.35NormalCSelect Medical [facility] on above:Result Comment: eGFR (Estimated GFR) Units of measure: mL/min/1.73 meters squared eGFR in pediatric patients is calculated from the Bedside Cohen equation based on a stable serumcreatinine and height. The creatinine assay has been calibrated to be traceable to IDMS. To calculate the patient's eGFR, multiply the given factor by the patient's height (centimeters). An eGFR <60 mL/min/1.73m2 for >3 months is consistent with chronic kidney disease. Refer to KDOQI guidelines for clinical interpretation.Performed By: #### WSR, TSH, CBCDIF, FT4, CMP #### [facility] [address] [place], [place] [address] Ixvlsyb [Mass/Vol]70 mg/sHOym29-25HffrldudwTuscarawas Hospital on above:Result Comment: Reference ranges for this patient's age group have not been established. These reference ranges reflect verified or established ranges for the adult population. Interpret these rangeswith caution using the clinical context and additional reference resources. The [place] Diabetes Association (ADA) provides guidance for cutoff values for fasting glucose andrandom glucose. The ADA defines fasting as no [...] Standards of Medical Care in Diabetes 2016, [place] Diabetes Association. Diabetes Care. 2016.39(Suppl 1).Performed By: #### WSR, TSH, CBCDIF, FT4, CMP #### [facility] [address] [place], [place] [address] Iptvgdvug [Moles/Vol]4.9 mmol/LNormal3.7-5.1CMary Rutan HospitalComment on above:Result Comment: (NOTE) Reference ranges for this patient's age group have not been established. These reference ranges reflect verified or established ranges for the adult population. Interpret these ranges with caution using the clinical context and additional reference resources.Performed By: #### WSR, TSH, CBCDIF, FT4, CMP #### [facility] [address] [place], [place] [address] Kvjoitj [Mass/Vol]7.3 g/dLNormal6.3-8.0[facility] Comment on above:Result Comment: (NOTE) Note that results are flagged as abnormal [...] MAXWELL, Ameya I, Teresita M, et al. [employer] Initiative on Reference Interval Database(CALIPER): pediatric reference intervals for an integrated clinical chemistry and immunoassay analyzer, Gomez MAIL CARRIER AND CLERK [id number]. Clin Biochem 2009;42:885-891.Performed By: #### WSR, TSH, CBCDIF, FT4, CMP #### [facility] [address] [place], [place] [address] Augqbd [Moles/Vol]141 mmol/XIqnzro588-795CvclszxcrCoshocton Regional Medical Center Comment on above:Result Comment: (NOTE) Reference ranges for this patient's age group have not been established. These reference ranges reflect verified or established ranges for the adult population. Interpret these ranges with caution using the clinical context and additional reference resources.Performed By: #### WSR, TSH, CBCDIF, FT4, CMP #### [place] [address] [place] [address] Keyi nitrogen [Mass/Vol]15 mg/dLNormal5-18[facility] Comment on above:Performed By: #### WSR, TSH, CBCDIF, FT4, CMP #### [place] [address] Jnff T4on 61-25-3480Qtsz T4 [Mass/Vol]1.4 ng/dLNormal0.8-2.8 [facility] Medical CenterComment on above:Performed By: #### WSR, TSH, CBCDIF, FT4, CMP #### [place] [address] Oyr Rate Westergrenon 30-51-5917Kpz Rate Westergren2 mm/hrNormal0-15 [facility] Medical CenterComment on above:Performed By: #### WSR, TSH, CBCDIF, FT4, CMP #### [place] [address] UEMbh 08-93-6888NRR Qn2.020 m[IU]/LNormal0.510-4.300[facility] on above:Result Comment: Reference ranges were not locally established for this patient's age group. The normal values are based on the following source: Farrah W, Phil V. Reference Ranges for Adults and Children: Pre-analytical Considerations. Jeison DiagnosticsPerformed By: #### WSR, TSH, CBCDIF, FT4, CMP #### [place] [address] UX NOTEon 21-70-4797FZ NOTEHNO ID: [id number] Author: Zara Enciso RN Service: ? Author Type: Registered Nurse Type: ED Notes Filed: 05/16/2021 8:50 PM Note Text: Spacer teaching done and spacer providedNoHomberg Memorial Infirmary HospitalED NOTEHNO ID: [id number] Author: Zara Enciso RN Service: ? Author Type: Registered Nurse Type: ED Notes Filed: 05/16/2021 8:32 PM Note Text: No spacers available in ED. RT notified and will bring [facility] HospitalED NOTEHNO ID: [id number] Author: Zara Enciso RN Service: ? Author Type: Registered Nurse Type: ED Notes Filed: 05/16/2021 6:23 PM Note Text: Strep swab obtained. Mom states covid swab done yesterday via CCDan[facility] HospitalED NOTEHNO ID: [id number] Author: Carter Cadena RN Service: ? Author Type: Registered Nurse Type: ED Notes Filed: 05/16/2021 5:17 PM Note Text: Pt bib mother for cough sore throat and chest discomfort x 5 days Seen by pmd yesterdayP[facility] HospitalED PROV NOTEon 87-85-7157JR PROV NOTEHNO ID: [id number] Author: Yvette Marion DO Service: Emergency Medicine [...] Negative for arthralgias. Skin: Negative for wound. Allergic/Immunologic: Negative. Neurological: Positive for light-headedness and headaches (Mild frontal). Negative for dizziness, weakness and numbness. Hematological: Negative. Psychiatric/Behavioral: Negative. Negative for agitation and confusion. Physical Exam Vitals [05/16/21 1713] BP Pulse Temp Temp src Resp SpO2 Weight Height 136/80 (!) 96 37.1 ?C (98.7 ?F) Temporal Art 18 100 % 85.8 kg (189 lb 2.5 oz) -- Physical Exam Vitals and nursing note reviewed. Exam conducted with a oracle iam consultant present. Constitutional: General: He is not in [...] baseline. Motor: No weak (more content not included)...[facility] HospitalXR CHEST 1V FRONTAL PORTon 99-49-5479LU CHEST 1V FRONTAL PORT* * *Final Report* * * DATE OF [...] MD on May 16 2021 7:32PM EST [id number] Lakeview Hospital 68-14-9711HTMLJvlyxk Visit (PEDSMT) CAMERON TERESA ([id number]) 1 M Date Time Provider Department 05/15/21 [...] drinks Go! Be healthy, inside and out! [email or web address] Referring Provider: SELF [200] Allergies As of Date: 05/15/2021 (No Known Allergies) Date Reviewed: 05/15/2021 Reviewed by: Jaxson Starks DO - Fully Assessed Reason for Visit: Cough [28] Cmt: x 4 days Headaches [3461] Primary Visit Diagnosis:Headache, unspecified headache type [R51.9] Order(s):COVID, FLU A/B + RSV, ROUTINE [SQCVFLRS] Order #: [id number] Prescriptions as of 05/15/2021 - hydrOXYzine pamoate [...] drinks Go! Be healthy, inside and out! [email or web address] Disposition: Return if symptoms worsen or fail to improve. Follow-up and Disposition History for Encounter Date Provider Department Center (more content not included)...NormalCoshocton Regional Medical CenterCepheid Bill only (EXCFR)on 65-49-8675Rnjgswo Bill only (EXCFR)Billed for services performedNormalCRegency Hospital Cleveland Eastment on above:Performed By: #### CFRCEP, EXCFR #### [facility] [address] [place] [id number] [phone], Flu A/B, RSV (On interfaces 1102,1120)on 05-02-9584Ygocrzdnn A PCRNegativeNormalCSelect Medical [facility] Clinic [facility] on above:Result Comment: This test has been authorized by FDA under an Emergency Use Authorization (EUA). Performed By: #### CFRCEP, EXCFR #### [facility] ARKeX [address] [place], [place] [address] [phone] B PCRNegativeNormalCleveland Clinic ClevelandComment on above:Result Comment: This test has been authorized by FDA under an Emergency Use Authorization (EUA).Performed By: #### CFRCEP, EXCFR #### [place] [address] MNS PCRNegativeNormUniversity Hospitals Samaritan Medical Center on above: Result Comment: This test has been authorized by FDA under an Emergency Use Authorization (EUA).Performed By: #### CFRCEP, EXCFR #### [place] [address] KPKI-CoV-2 (COVID-19) RNA JERRELL+probe Ql (Unsp spec)UPPER RESPIRATORY TRACT SWABNormalCMary Rutan HospitalComveterans affairs medical center on above:Performed By: #### CFRCEP, EXCFR #### [place] [address] MBKQ-CoV-2 (COVID-19) RNA JERRELL+probe Ql (Unsp spec)Negative for COVID19 (SARS CoV2) by RT-PCR or equivalent method.NormalNegative for COVID19 (SARS CoV2) by RT-PCR or equivalent method.[facility] on above:Result Comment: This test has been authorized by FDA under an Emergency Use Authorization (EUA). Test performed by [facility], Jared Noel [facility] [place], [address] [place] [address].Performed By: #### CFRCEP, EXCFR #### [place] [address] LO/CHLAM AMPLIFICATION URINE [CCL]on 73-19-6620Jxuwkaala Amplif, Ur NegativeNormalEast [place] Regional HospitalComveterans affairs medical center on above:Result Comment: [place] [address] Benito Uribe III, M.D. [id number] Performed By: #### [id number] #### [facility] [place] [facility],[address] [place], [place] [address]UGCAMP NegativeNormalEast [place] Regional HospitalComment on above:Performed By: #### [id number] #### [facility] [place] [facility],[address] [place] [address] GC/Chlamydia Amp, Uron 60-16-7272Krovrdmfd Amplif, UrCLNEGNormalCleveland Clinic Reference LabComment on above:Performed By: #### UGCCT #### [facility] Routine Lab [address] [address] KM Amplification, UrNGNEGNormalCleveland Clinic Reference LabComment on above:Performed By: #### UGCCT #### [facility] Routine Lab [address] [place] [address] LAW + DIFFon 24-18-8625Uaej #0.00 x10EE3/ULNormal0.00 - 0.10[facility] [place] [facility] HospitalComment on above:Performed By: #### [id number] #### [facility] [place] [facility],[address] [place] [address] Basophils/100 WBC (Bld)0.8 %Normal0.0 - 2.0[facility] [place] [facility] Comment on above:Performed By: #### [id number] #### [facility] [place] [facility],[address] [place] [address] 15386RQR + DIFF NormalEast [place] Regional HospitalComment on above:Result Comment: CBC- COMPLETE BLOOD COUNTPerformed By: #### [id number] #### [facility] [place] [facility],[address] [place] [address]24[address]AO #0.10 x10EE3/ULNormal0.00 - 0.50[facility] [place] [facility] HospitalComment on above: Performed By: #### [id number] #### [address] [address] Eosinophils/100 WBC (Bld)1.9 %Normal0.0 - 7.0[facility] [place] [facility] Comment on above:Performed By: #### [id number] #### [facility] [place] [facility],[address] [place] [address] 08133Rlnvkyqfzru distribution width (RBC) [Ratio]14.3 %Pynnkw36.0 - 15.6JoeAdventHealth New Smyrna BeachComment on above:Performed By: #### [id number] #### [place] [phone] (Bld) [Volume fraction]43.5 %Zcllub90.0 - 52.0[facility] [place] [facility] Comment on above:Performed By: #### [id number] #### [place] [id number] (Bld) [Mass/Vol]14.9 g/bXCpphct22.0 - 17.5[facility] [place] [facility] HospitalComment on above:Performed By: #### [id number] #### [place] [id number] #1.30 x10EE3/ULNormal0.80 - 2.80[facility] [place] [facility] HospitalComment on above: Performed By: #### [id number] #### [place] [id number] Lymphocytes/100 WBC (Bld)30.7 %Mzdbek88.0 - 45.0[facility] [place] [facility] Comment on above:Performed By: #### [id number] #### [facility] [place] [facility],[address] [place] [address] 52151IZTNEY DIFF N/ANormalEast [place] Regional HospitalComment on above:Performed By: #### [id number] #### [address] [address]GNM (RBC) [Entitic mass]29 bfGsulkb72 - 33East [place] Regional HospitalComment on above: Performed By: #### [id number] #### [place] [id number] X10 8Jguxpn04 - 36East [place] Regional HospitalComment on above:Performed By: #### [id number] #### [facility] [place] [facility],[address] [place], [place] [address]MCV (RBC) [Entitic vol]84 bVEpozuh70 - 98East [place] Regional HospitalComment on above: Performed By: #### [id number] #### [facility] [place] [facility],[address] [place] [address]Vyrs #0.40 x10EE3/ULNormal0.20 - 1.00[facility] [place] [facility] HospitalComment on above: Performed By: #### [id number] #### [address] [address]TFGKR %8.8 %Normal0.0 - 10.0[facility] [place] [facility] HospitalComment on above:Performed By: #### [id number] #### [place] [phone] Daniel (Bld) [Interp]N/ANormalEast [place] Regional HospitalComment on above: Result Comment: {CD]Performed By: #### [id number] #### [facility] [place] [facility],[address] [place], [place] [address]Neut #2.50 x10EE3/ULNormal1.50 - 7.10[facility] [place] [facility] HospitalComment on above: Performed By: #### [id number] #### [facility] [place] [facility],[address] [place] [address] Neutrophils/100 WBC (Bld)57.8 %Uqjcrx11.0 - 76.0[facility] [place] [facility] Comment on above:Performed By: #### [id number] #### [place] [id number] x10EE3/MFSve616 - 450East [place] Regional HospitalComment on above:Performed By: #### 421057 #### [address] [address]Qeroaxzd mean volume (Bld) [Entitic vol]9.7 fLNormal6.4 - 10.5[facility] [place] Regional HospitalComment on above:Result Comment: AUTOMATED DIFFERENTIALPerformed By: #### [id number] #### [facility] [place] [facility],[address] [place] [address] 547[address]AVT2.16 x 10EE6/ULNormal4.50 - 6.00JoHCA Florida Citrus HospitalComment on above: Performed By: #### [id number] #### [facility] [place] [facility],[address] [place] [address] 89422FST5.3 x 10EE3/ULLow4.5 - 10.8[facility] [place] [facility] HospitalComment on above:Performed By: #### 934375 #### [facility] [place] [facility],[address] [place] [address]IWN with eGFRon 11-37-3818IJK48 yearsNormalEast [place] Regional HospitalComment on above:Performed By: #### [id number] #### [facility] [place] [facility],[address] [place] [address] 309[address]Zqfhied [Mass/Vol]4.0 g/dLNormal3.4 - 5.0[facility] [place] [facility] HospitalComment on above:Performed By: #### [id number] #### [facility] [place] [facility],[address] [place] [address] 26775 Albumin/Globulin [Mass ratio]1.4 {ratio}Normal0.9 - 1.6JoeAdventHealth New Smyrna BeachComment on above:Performed By: #### 081594 #### [facility] [place] [facility],[address] [place] [address] 80020KFR LEZF970 U/RHjvxne33 - 116[facility] [place] Regional HospitalComment on above:Performed By: #### [id number] #### [facility] [place] [facility],[address] [place] [address] 010[address]TRE [Catalytic activity/Vol]23 U/JBdobaw24 - 63[facility] [place] [facility] Comment on above:Performed By: #### [id number] #### [facility] [place] [facility],[address] [place] [address] [place] [address]Znvtn gap [Moles/Vol]11 mmol/EHvjocz13 - 20[facility] [place] [facility] HospitalComment on above:Performed By: #### 919521 #### [facility] [place] [facility],[address] [place] [address] [place] [address]YBO [Catalytic activity/Vol]21 U/MYzprdt63 - 37[facility] [place] [facility] Comment on above:Performed By: #### [id number] #### [facility] [place] [facility],[address] [place] [address],[place] [address]E/C RATIO17 ratioNormal0 - 30[facility] [place] [facility] HospitalComment on above:Performed By: #### 639141 #### [facility] [place] [facility],[address] [place] [address] [place] [address]Evcljzsdl [Mass/Vol]0.5 mg/dLNormal0.2 - 1.0JoHCA Florida Citrus HospitalComment on above:Performed By: #### [id number] #### [facility] [place] [facility],[address] [place] [address] [place] [address]Szhnipa [Mass/Vol]8.9 mg/dLNormal8.5 - 10.1JoeAdventHealth New Smyrna BeachComment on above:Performed By: #### 951505 #### [facility] [place] [facility],[address] [place] [address] [place] [address]Vhpkzryf [Moles/Vol]104 mmol/IZdonib97 - 107JoHCA Florida Citrus HospitalComment on above:Performed By: #### [id number] #### [facility] [place] [facility],[address] [place] [address] [place] [address]SDA with eGFRNormalEast [place] Regional HospitalComment on above:Result Comment: COMPREHENSIVE METABOLIC PANELPerformed By: #### [id number] #### [facility] [place] [facility],[address] [place] [address] [place] [address]WF8 [Moles/Vol]31.3 mmol/GZdbwuj72.0 - 32.0[facility] [place] [facility] HospitalComment on above:Performed By: #### 482696 #### [address] [address]Oxotlttzgl [Mass/Vol]1.1 mg/dLNormal0.7 - 1.3JSummersville Memorial HospitalComment on above:Performed By: #### 042871 #### [address] [address]YWE/1.73 sq M.predicted among non-blacks MDRD (S/P/Bld) [Vol rate/Area]mL/min/{1.73_m2} Grksha83 - 999East [place] Regional HospitalComment on above:Performed By: #### [id number] #### [address] [address]Rhqefx Comment: ACCORDING TO THE NATIONAL KIDNEY DISEASE EDUCATION PROGRAM(NKDE), A NORMAL eGFR IS A VALUE GREATER THAN OR EQUAL TO 60 ML/MIN/1.73 SQ METERS. CHRONIC KIDNEY DISEASE: <60mL/MIN/1.73 SQ METERS KIDNEY FAILURE: <15mL/MIN/1.73 SQ METERS THIS TEST SHOULD ONLY BE USED FOR PATIENTS 18 YEARS OF AGE AND OLDER.Globulin (S) [Mass/Vol]2.8 g/dLNormal1.5 - 3.8[facility] [place] [facility] HospitalComment on above:Performed By: #### [id number] #### [address] [address]Brwxjre [Mass/Vol]85 mg/pRDbpium70 - 106JoHCA Florida Citrus HospitalComment on above: Performed By: #### [id number] #### [address] [address]Fozosenvy [Moles/Vol]4.0 mmol/LNormal3.5 - 5.1JSummersville Memorial HospitalComment on above:Performed By: #### 439698 #### [address] [address]Yxzuxfy [Mass/Vol]6.8 g/dLNormal6.4 - 8.2[facility] Critical Access HospitalComment on above:Performed By: #### 862987 #### [facility] [place] [facility],[address] [place] [address]Iraive [Moles/Vol]142 mmol/TBhfvhx463 - 145[facility] [place] [facility] HospitalComment on above:Performed By: #### 337206 #### [facility] [place] [facility],[address] [place] [address] 87[address]Wkio nitrogen [Mass/Vol]19 mg/dLHigh7 - 18[facility] [place] [facility] HospitalComment on above:Performed By: #### 085062 #### [facility] [place] [facility],[address] [place] [address] 18583NSRT SCREEN URINE MEDICon 86-96-8924MDZKLLWSPWMKFudjezxqAgimpuYdvsMagruder Memorial HospitalComment on above:Performed By: #### [id number] #### [facility] [place] [facility],[address] [place] [address] 118[address] B-DIAZEPINESNegativeGenesis HospitalComveterans affairs medical center on above: Performed By: #### [id number] #### [facility] [place] [facility],[address] [place] [address] BARBITURATESNegativeGenesis HospitalComveterans affairs medical center on above: Performed By: #### [id number] #### [facility] [place] [facility],[address] [place] [address] 81784KMQSUEJ NegativeNormFirelands Regional Medical Center South CampusComment on above:Performed By: #### [id number] #### [facility] [place] [facility],[address] [place] [address] 09242UNRW SCREEN URINE MEDICGenesis HospitalComveterans affairs medical center on above:Result Comment: DRUG SCREEN - URINEPerformed By: #### 616247 #### [facility] [place] [facility],[address] [place] [address] 12550ZHFLWNSET NegativeGenesis HospitalComment on above:Performed By: #### [id number] #### [facility] [place] [facility],[address] [place] [address] 10945FSGVRSE NegativeNormalEast [place] Regional HospitalComment on above:Performed By: #### [id number] #### [facility] [place] [facility],[address] [place] [address] 24565YRNNjadnohn NormalEast [place] Regional HospitalComment on above:Performed By: #### [id number] #### [facility] [place] [facility],[address] [place] [address] 912[address]TSQCfkevivn NormalEast [place] Regional HospitalComment on above:Result Comment: PATIENTS RECEIVING PROTON PUMP INHIBITORS MAY DEMONSTRATE FALSE POSITIVE THC/CANNABINOID RESULTS. AN ALTERNATIVE CONFIRMATORY METHOD SHOULD BE CONSIDERED TO VERIFY POSITIVE RESULTS.Performed By: #### [id number] #### [facility] [place] [facility],[address] [place] [address]37[address]ZCMxf 46-71-4781PPW Qn1.62 m[IU]/LNormal0.51 - 4.13[facility] [place] [facility] Comment on above:Performed By: #### [id number] #### [facility] [place] [facility],[address] [place] [address] 66[address]SFITcj 84-66-8601AVWHTxbyemdrk (PEDSMT) CAMERON TERESA ([id number]) 1 M Date Time Provider Department 10/21/20 [...] Encounter Status:Closed by RIGOBERTO BROWN LPN on [facility]/20[facility], BLOODon 18-82-9829Dzrgahxhwxaxo [Mass/Vol]<10.0 Normal5.0 - 20.0[facility] CenterComment on above:Performed By: #### DRUBL #### [address] [address]Dqefnpm [Mass/Vol]mg/dLNormalUH [facility] Regional Medical CenterComment on above:Result Comment: FOR MEDICAL USE ONLY. . REF VALUES <10Performed By: #### DRUBL #### [address] [address]WWNRKMSDUX<0Boqkgv1 - 20[facility] CenterComment on above:Performed By: #### DRUBL #### [address] [address]MOX AND DIFFERENTIALon 09-24-2020% AUTOMATED IMMATURE GRAN0.1 % Normal0.0 - 1.0[facility] CenterComment on above:Result Comment: Immature Granulocyte Count (IG) includes promyelocytes, myelocytes and metamyelocytes but does not include bands. Percent differential counts (%) should be interpreted in the context of the absolute cell counts (cells/L).Performed By: #### CBCDF #### [address] [address]Ryhgcragy (Bld) [#/Vol]0.03 10*3/uLNormal0.00 - 0.10[facility] CenterComment on above:Performed By: #### CBCDF #### [address] [address]Lzzylffll/100 WBC (Bld)0.4 %Normal0.0 - 1.0[facility] CenterComment on above:Performed By: #### CBCDF #### [address] [address]Wslsjnurvnp (Bld) [#/Vol]0.04 10*3/uLNormal0.00 - 0.70[facility] CenterComment on above:Performed By: #### CBCDF #### [address] [address]Uswjzobckdq/100 WBC (Bld)0.5 %Normal0.0 - 5.0[facility] CenterComment on above:Performed By: #### CBCDF #### [address] [address]Vvjudxgpmjr distribution width (RBC) [Ratio]13.3 %Bssqml86.5 - 14.5[facility] CenterComment on above:Performed By: #### CBCDF #### [address] [address]Jpywhxgurk (Bld) [Volume fraction]47.2 %Narykr53.0 - 49.0[facility] CenterComment on above:Performed By: #### CBCDF #### [address] [address]Kjscbeuohv (Bld) [Mass/Vol]15.7 g/iDDklngw54.0 - 16.0[facility] CenterComment on above:Performed By: #### CBCDF #### [address] [address]Sglygwvwqvn (Bld) [#/Vol]1.92 10*3/uLNormal1.80 - 4.80[facility] CenterComment on above:Performed By: #### CBCDF #### [address] [address]Gcofjufspqx/100 WBC (Bld)23.6 %Kuyghk50.0 - 48.0[facility] CenterComment on above:Performed By: #### CBCDF #### [address] [address]OCAS (RBC) [Mass/Vol]33.3 g/gETyolyp40.0 - 37.0[facility] CenterComment on above:Performed By: #### CBCDF #### [address] [address]KZX (RBC) [Entitic vol]87 dPVkpmta27 - 102[facility] CenterComment on above:Performed By: #### CBCDF #### [address] [address]Ibtormzzg (Bld) [#/Vol]0.61 10*3/uLNormal0.10 - 1.00[facility] CenterComment on above:Performed By: #### CBCDF #### [address] [address]Vqvcoqnco/100 WBC (Bld)7.5 %Normal3.0 - 9.0[facility] CenterComment on above:Performed By: #### CBCDF #### [address] [address]Vtvogpuiljd (Bld) [#/Vol]5.52 10*3/uLNormal1.20 - 7.70[facility] CenterComment on above:Performed By: #### CBCDF #### [address] [address]Cjymrxgxbjh/100 WBC (Bld)67.9 %Hxvpzh53.0 - 69.0[facility] CenterComment on above:Performed By: #### CBCDF #### [address] [address]Eeljjydie (Bld) [#/Vol]184 10*3/zCCvhyiy183 - 400[facility] CenterComment on above:Performed By: #### CBCDF #### [address] [address]XRA (Bld) [#/Vol]5.41 x10E12/LHigh4.50 - 5.30[facility] CenterComment on above:Performed By: #### CBCDF #### [address] [address]LIH (Bld) [#/Vol]8.1 10*3/uLNormal4.5 - 13.5[facility] CenterComment on above:Performed By: #### CBCDF #### [address] [address]JIKKCONKNQIED PANELon 27-08-1469Uihmbax [Mass/Vol]4.7 g/dLNormal 3.4 - 5.0[facility] CenterComment on above:Performed By: #### CMP #### [address] [address]WEO [Catalytic activity/Vol]132 U/MIlgurm12 - 139[facility] CenterComment on above:Performed By: #### CMP #### [address] [address]NFD [Catalytic activity/Vol]18 U/LNormal3 - 28[facility] CenterComment on above:Result Comment: Patients treated with Sulfasalazine may generate falsely decreased results for ALT.Performed By: #### CMP #### [address] [address]Rzhgy gap [Moles/Vol]11 mmol/HMwuaad83 - 30[facility] CenterComment on above:Performed By: #### CMP #### [address] [address]DPE [Catalytic activity/Vol]26 U/LNormal9 - 32[facility] CenterComment on above:Performed By: #### CMP #### [address] [address]Jlsszryni [Mass/Vol]0.4 mg/dLNormal0.0 - 0.9[facility] CenterComment on above:Performed By: #### CMP #### [address] [address]Tokzqhu [Mass/Vol]9.7 mg/dLNormal8.5 - 10.7[facility] CenterComment on above:Performed By: #### CMP #### [address] [address]Gdsyeewo [Moles/Vol]106 mmol/JAkchhp51 - 107[facility] CenterComment on above:Performed By: #### CMP #### [address] [address]Dzrtmozyfo [Mass/Vol]1.01 mg/dLNormal0.60 - 1.10[facility] CenterComment on above:Performed By: #### CMP #### [address] [address]Anwdtrw [Mass/Vol]118 mg/aSBlnf04 - 99[facility] Comment on above:Performed By: #### CMP #### [address] [address]QZT6 (Bld) [Moles/Vol]26 mmol/JXwoqug95 - 27[facility] CenterComment on above:Performed By: #### CMP #### [address] [address]Uylsdbxrd [Moles/Vol]3.9 mmol/LNormal3.5 - 5.3[facility] CenterComment on above:Performed By: #### CMP #### [address] [address]Onepyyn [Mass/Vol]7.2 g/dLNormal6.2 - 7.7[facility] CenterComment on above:Performed By: #### CMP #### [address] [address]Lwfcdy [Moles/Vol]139 mmol/BPrujsz571 - 145[facility] CenterComment on above:Performed By: #### CMP #### [address] [address]Ycaw nitrogen [Mass/Vol]15 mg/dLNormal6 - 23[facility] CenterComment on above:Performed By: #### CMP #### [address] [address]PAFC SCREEN,URINEon 51-75-6873QTSYPXNSSGL SCREEN,UNegativeNormal NEGATIVENorthwest Medical CenterComment on above:Result Comment: CUTOFF LEVEL: 500 NG/ML Cross-reactivity has been reported with high concentrations of the following drugs: buproprion, chloroquine, chlorpromazine, ephedrine, mephentermine, fenfluramine, phentermine, phenylpropanolamine, pseudoephedrine, and propranolol.Performed By: #### DRUG3 #### [address] [address]GWEPOYRYOUOZ SCREEN,UNegativeNormalNEGATIVENorthwest Medical CenterComment on above:Result Comment: CUTOFF LEVEL: 200 NG/MLPerformed By: #### DRUG3 #### [address] [address]LQUBJBLXCMRLFNL SCREEN,UNegativeNormalNEGATIVENorthwest Medical CenterComment on above:Result Comment: CUTOFF LEVEL: 200 NG/MLPerformed By: #### DRUG3 #### [address] [address]HNXPVBJJBUGS SCREEN,UNegativeNormalNEGATIVENorthwest Medical CenterComment on above:Result Comment: CUTOFF LEVEL: 50 NG/MLPerformed By: #### DRUG3 #### [address] [address]WJCAWLI METABOLITE SCREEN,UNegativeNormalNEGATIVENorthwest Medical CenterComment on above:Result Comment: CUTOFF LEVEL: 150 NG/MLPerformed By: #### DRUG3 #### [address] [address]VUQJ SCREEN COMMENTSEE [facility] Comment on above:Result Comment: Drug screen results are presumptive and should not be used to assess compliance with prescribed medication. Contact the performing [facility] laboratory to add-on definitive confirmatory testing if [...] should be directed to the laboratory medical directors.Performed By: #### DRUG3 #### [address] [address]YLZCCXYQ SCREEN,URINENegativeNormalNEGATIVENorthwest Medical CenterComment on above:Result Comment: CUTOFF LEVEL: 1 NG/MLPerformed By: #### DRUG3 #### [address] [address]VUOWDMPPL SCREEN,UNegativeNormalNEGErie County Medical Center Comment on above:Result Comment: CUTOFF LEVEL: 150 NG/ML The metabolite K-yasnf-moqjriigfrcfop (LAAM) is not detected by this method in concentrations that would be found in the urine of patients on LAAM therapy.Performed By: #### DRUG3 #### [address] [address]RSFAFXS SCREEN,UNegativeNormalNEGATIVENorthwest Medical Center Comment on above:Result Comment: CUTOFF LEVEL: 300 NG/ML The opiate screen does not detect fentanyl, meperidine, or tramadol. Oxycodone is not consistently detected (refer to Oxycodone Screen, Urine result).Performed By: #### DRUG3 #### [address] [address]BAPBODKTZ SCREEN,Mission HospitalgativeNormalNEGErie County Medical Center Comment on above:Result Comment: CUTOFF LEVEL: 100 NG/ML This test will accurately detect both oxycodone and oxymorphone.Performed By: #### DRUG3 #### [address] [address]UBJ SCREEN,UNegativeNormalNEGErie County Medical Center Comment on above:Result Comment: CUTOFF LEVEL: 25 NG/ML Cross-reactivity has been reported with dextromethorphan.Performed By: #### DRUG3 #### [address] [address]Djfeippq Note - ED v2on 27-11-4671Ufpqxlis Note - ED i7Brheqddb Note - ED v2: Chart Review: ED [...] He can indeed go back to [facility] just not tonight. They would need to go through the intake process in the morning. Stepmother also has other applications out to places such as [place] for the patient and are waiting to hear back from them. Patient is stable. Mother and stepmother feel that the child is stable at this point time to be in their custody and they will take the patient home at this time. I did attempt to contact patient's physician at the [facility] facility Dr. Laureano with no success. [...] and medical, surgical, family and social history ALLERGIES/INTOLERANCES: No Known Allergies HEALTH HISTORY: No documented [...] a day SIGNIFICANT EVENTS: Past Medical History Description:Depression Description:PTSD CLINICAL IMPRESSION Diagnosis/Annotation: ED Dx Name:Anxiety and depression Code:F41.9 Name:History of substance abuse Code:F19.11 Disposition: discharged Type: home ATTESTATION CRITICAL CARE TIME Is this a critically ill patient: no Electronic Signatures: MANDEEP COOK) (Signed 24-Sep-2020 00:45) Authored: ED Notes, HPI, PMH, Clinical Impression, Attestation, Chart Review, Scores Last Updated: 24-Sep-2020 00:45 by MANDEEP COOK)[facility] HospitalRisk Screen - PEDS Emergencyon 42-15-5377Ghlz Screen - PEDS Emergency Preferred Language: Preferred Language: Preferred Language for Discussing Health Care (patient/designee)Belarusian Advanced Directives: Advance Directive/DNRnot applicable Learning Assessment (Patient): Patient is Able to be Assessed for Learningyes Educational Sgopj69ub12th grade Factors Influence Readiness to Learnnone, ready to learn Factors Impact Ability to Learnnone Devices/Methods Used to Communicatenone Learning Preferencesskill demonstration, verbal instruction, written material Cultural Considerationsnone Developmental Considerationsnone Taoist Considerationsnone Other Learnersfamily Learning Assessment (Other Learner): Other learner availableyes Other Learner is Able to be Assessed for Learningyes Learnerfamily Factors Influencing Readiness to Learnnone, ready to learn Factors that Impact Ability to Learnnone Devices/Methods Used to Communicatenone Learning Preferenceswritten material Cultural Considerationsnone Developmental Considerationsnone Taoist Considerationsnone Family Violence PEDS: Family Violence Screen [...] older) Last Updated: 24-Sep-2020 01:06 by America Horn)[facility] HospitalTriage - ED Pedson 34-63-6216Rniucp - ED PedsTriage: Chart Review: CHIEF COMPLAINT CAMERON TERESA is [...] no Acuity Level: 2 Peds Complaint Code ([facility] ONLY): N/A [facility] The patient and/or guardian verbally acknowledges placement for services into the following (when Urgent Care Service hours are operating): emergency department ABCD PRIMARY ASSESSMENT CAMERON Tara TERESA's primary assessment is Within Defined Limits. The airway is open and patent. Breathing spontaneous and unlabored with clear breath sounds bilaterally. Circulation is normal with good peripheral pulses. Skin is warm and dry and color is normal for race. Alert and appropriate for age. RISK SCREEN Mineral Suicide Risk Screen Risk Screen Not Applicable/Able [...] Last Updated: 24-Sep-2020 01:01 by America Horn (AGUILA)[facility] HospitalDrugon 31-79-7982Lqzrjgg [Mass/Vol]Alcohol <0.010 Performed at [address] [address] GM/DL (0-0.010 GM/DL)0 - 0.010 [facility]DL[facility] Hematologyon 57-20-6506Rzasscipo (Bld) [#/Vol]Abs Baso 0.04 K/UL (0.00-0.22 K/UL)0.00 - 0.22 K/ULLHS Basophils/100 WBC (Bld)Basophil 0.30 % (0-1 %)0 - 1 % S Eosinophils (Bld) [#/Vol]Abs Eos 0.01 K/UL (0-0.45 K/UL)0 - 0.45 K/ULLHS Eosinophils/100 WBC (Bld)Eosinophil 0.10 % (0-3 %)0 - 3 %LHS Hematocrit (Bld) [Volume fraction]HCT 47.3 % H (36-47 %)High36 - 47 %S Hemoglobin (Bld) [Mass/Vol]HGB 15.1 GM/DL (12.0-15.2 GM/DL)12.0 - 15.2 GM/DLBL[facility]OUNTAIN [facility] Lymphocytes (Bld) [#/Vol]Abs Lymph 2.24 K/UL (1.2-3.2 K/UL)1.2 - 3.2 K/ULLHS Lymphocytes/100 WBC (Bld)Lymphocyte 18.60 % L (21-51 %) Low21 - 51 %S MCH (RBC) [Entitic mass]MCH 28.5 PG (25-35 PG)25 - 35 PGLHS MCV (RBC) [Entitic vol]MCV 89.2 FL (78-96 FL)78 - 96 FL LHS Monocytes (Bld) [#/Vol]Abs Dawson 0.87 K/UL H (0-0.8 K/UL)High0 - 0.8 K/ULLHS Monocytes/100 WBC (Bld)Monocyte 7.20 % (0-8 %)0 - 8 % S Neutrophils (Bld) [#/Vol]Abs.Neut.Calculated 8.88 K/UL (Reference Range: not available) Performed at [address] [address]SKD Neutrophils (Bld) [#/Vol]Abs Neut 8.88 K/UL H (1.5-8.0 K/UL)High1.5 - 8.0 K/ULLHS Platelets (Bld) [#/Vol]PLT 186 K/UL (150-450 K/UL)150 - 450 K/ULLHS RBC (Bld) [#/Vol]RBC 5.30 M/UL H (4.5-5.1 M/UL)High4.5 - 5.1 M/ULLHS WBC (Bld) [#/Vol]WBC 12.1 K/UL (4.5-13.0 K/UL)4.5 - 13.0 K/ULL Metabolic Panelon 40-41-3971Tcswfls [Mass/Vol]Albumin 4.6 GM/DL (3.5-5.0 GM/DL)3.5 - 5.0 GM/DLBL[facility] MOUNT[facility] ALT [Catalytic activity/Vol]ALT 17 U/L (5-40 U/L) Performed at [address] [address]40 - 40 U/LLHS Anion gap [Moles/Vol]Anion Gap 14 MMOL/L (0-19 MMOL/L)0 - 19 MMOL/LLHS AST [Catalytic activity/Vol]AST 26 U/L (5-40 U/L)5 - 40 U/LLHS Bilirubin [Mass/Vol]Total Bilirubin 0.3 MG/DL (0.1-1.2 MG/DL)0.1 - 1.2 MG/DLLHS Calcium [Mass/Vol]Calcium 9.9 MG/DL (8.5-10.4 MG/DL)8.5 - 10.4 MG/DLBL[facility] MOUNTAIN [facility] Chloride [Moles/Vol]Chloride 101 MMOL/L (97-107 MMOL/L) 97 - 107 MMOL/LLHS CO2 [Moles/Vol]Carbon Dioxide 21 MMOL/L L (24-31 MMOL/L)Low24 - 31 MMOL/LL Creatinine [Mass/Vol]Creatinine R 1.1 MG/DL (0.4-1.6 MG/DL)0.4 - 1.6 MG/DLBLUE MOUNTAIN [facility] Glucose [Mass/Vol]Glucose 122 MG/DL H (65-99 MG/DL)High 65 - 99 MG/DLBLUE MOUNTAIN H[facility] Potassium [Moles/Vol]Potassium R 3.9 MMOL/L (3.4-5.1 MMOL/L)3.4 - 5.1 MMOL/LL Protein [Mass/Vol]Total Protein 7.3 G/DL (5.9-7.9 G/DL) 5.9 - 7.9 G/DLBL[facility] MOUNTAIN [facility] Sodium [Moles/Vol]Sodium 136 MMOL/L (133-145 MMOL/L)133 - 145 MMOL/LL Urea nitrogen [Mass/Vol]BUN 20 MG/DL (8-25 MG/DL)8 - 25 MG/DLBL[facility] MOUNTAIN H[facility] Urea nitrogen/Creatinine [Mass ratio]BUN Creatinine Ratio 18.2 RATIO (8-21 RATIO)8 - 21 RATIOBLUE MOUNTAIN HOSP[facility] Otheron 25-47-2830AHOEX RNA JERRELL+probe Ql (Nph)FLU A by PCR NEGATIVE (Reference Range: not available) [facility] FLUBV RNA JERRELL+probe Ql (Nph)FLU B by PCR NEGATIVE (Reference Range: not available) [facility] [id number]-TnY-2 by PCR NEGATIVE (NEG )[facility] Albumin/Globulin [Mass ratio]Albumin Globulin Ratio 1.7 RATIO (1.5-3.0 RATIO)1.5 - 3.0 RATIOBL[facility]OUNTAIN [facility] ALP (Bld) [Catalytic activity/Vol]Alk Phosphatase 137 U/L H (35-125 U/L)High35 - 125 U/LLHS Amphetamines Screen method >1000 ng/mL Ql (U)Urine Amphetamine NEGATIVE (Reference Range: not available) [facility] Bacteria Auto Ql (U)Bacteria NEGATIVE (Reference Range: not available) [facility] Barbiturates Screen method >300 ng/mL Ql (U)Urine Barbiturate NEGATIVE (Reference Range: not available) [facility] Benzodiazepines Screen method >300 ng/mL Ql (U)Urine Benzodiazepine NEGATIVE (Reference Range: not available) [facility] Benzoylecgonine Screen method >300 ng/mL Ql (U)Urine Cocaine Metabolites NEGATIVE (Reference Range: not available) [facility] Bilirubin Ql (U)Bili NEGATIVE (NEG )[facility] Cannabinoids Screen method >50 ng/mL Ql (U) THC/Cannabinoids NEGATIVE (Reference Range: not available) [facility] Differential cell count method Nom (Bld)Diff Type AUTO DIFF (Reference Range: not available) [facility] Drug screen comment (U) [Interp]Urine Drug Comment These Toxicological Screening Tests provide [...] ng/ml Performed at [facility] [address] [facility] [address] (Reference Range: not available) [facility] Epithelial cells.squamous Auto Ql (U)Urine squamous epi NONE SEEN /HPF (Reference Range: not available) [facility] Erythrocyte distribution width (RBC) [Entitic vol]RDW SD 43.1 FL (37.0-54.0 FL)37.0 - 54.0 FLBLUE MOUNTAIN HOSPITAL Erythrocyte distribution width (RBC) [Ratio]RDW CV 13.1 % (11.7-15.0 %)11.7 - 15.0 %[facility] Globulin (S) [Mass/Vol]Globulin 2.7 G/DL (1.9-3.7 G/DL) 1.9 - 3.7 G/DLBLUE MOUNTAIN HOSP[facility] Glucose Auto test strip (U) [Mass/Vol]Gluc NEGATIVE mg/dL (NEG mg/dL)[facility] Hemoglobin Auto test strip Ql (U)RBC 1 /HPF (0-3 /HPF)0 - 3 /HPFBLUE MOUNTAIN HOSPITAL Hemoglobin Ql (U)Blood NEGATIVE (NEG )[facility] Hyaline casts Auto Ql (U)Urine hyaline cast NONE SEEN /LPF (Reference Range: not available) [facility] Immature granulocytes (Bld) [#/Vol]Abs Imm Neut 0.03 K/UL (0.0-0.1 K/UL)0.0 - 0.1 K/ULBLUE MOUNTAIN HOSPITAL Ketones Auto test strip Ql (U)Urine Ketone SMALL A (NEG )AbnormalBLUE MOUNTAIN HOSPITAL Leukocyte esterase Auto test strip Ql (U)Leuk NEGATIVE (NEG )[facility] MCHC (RBC) [Mass/Vol]MCHC 31.9 % (31-37 %)31 - 37 %[facility] Neutrophils.immature/100 WBC (Bld)Immature Neut % 0.20 % (0.0-1.0 %)0.0 - 1.0 %[facility] Nitrite Auto test strip Ql (U)Nit NEGATIVE (NEG )[facility] Nucleated RBC/100 WBC (Bld) [Ratio]NRBCs 0 /100 WBC (0 /100 WBC)[facility] Opiates Screen method >300 ng/mL Ql (U)Urine Opiate NEGATIVE (Reference Range: not available) [facility] Oxycodone Ql (U)Urine Oxycodone NEGATIVE (Reference Range: not available) [facility] pH (U)Urine pH 6.0 (4.6-8.0 )4.6 - 8.0[facility] Phencyclidine Screen method >25 ng/mL Ql (U)Urine PCP NEGATIVE (Reference Range: not available) [facility] Platelet mean volume (Bld) [Entitic vol]MPV 11.0 CU (7.0-12.6 CU)7.0 - 12.6 [facility] Segmented neutrophils/100 WBC (Bld)Granulocyte 73.60 % (34-82 %)34 - 82 %[facility] Urobilinogen Auto test strip Ql (U)Uro NORMAL MG/DL (0- 1.0 MG/DL)0 - 1.0 MG/DLBLUE MOUNTAIN HOSPITAL WBC Auto (Urine sed) [#/Area]WBC NONE SEEN /HPF (0-3 /HPF)0 - 3 /HPFBLUE MOUNTAIN HOSPITAL Reflex to Urine Culture CULTURE NOT INDICATED Performed at [address] [address] (Reference Range: not available) [facility] Microscopic AUTOMATIC MICROSCOPIC URINES (Reference Range: not available) [facility] Urinalysison 59-19-4024Nnytvij (U)Urine Clarity CLEAR (Reference Range: not available) [facility] Color (U)Urin color YELLOW (Reference Range: not available) [facility] Methadone Ql (U)Urine Methadone NEGATIVE (Reference Range: not available) [facility] Protein (U) [Mass/Vol]Prot TRACE mg/dL A (NEG mg/dL) AbnormalBLUE MOUNTAIN HOSPITAL Specific gravity (U) [Rel density]Urine Sp Newberg 1.026 (1.005-1.030 )1.005 - 1.030[facility] NR MRI CERVICAL WOon [id number] MRI CERVICAL WOMRN: [id number] Patient Name: CAMERON TERESA STUDY: MRI of the cervical spine without contrast. INDICATION: syncope, age-indeterminate irregularity involving the anterior/superior aspect of the C5 vertebral body. COMPARISON: CT cervical spine 08/31/2020 ACCESSION NUMBER(S): [id number] ORDERING CLINICIAN: FAHEEM LINDSAY TECHNIQUE: Multiplanar, multisequence [...] acute finding. Electronically signed by: CHAIM DOSS MDSt. James Parish HospitalProvider Note - ED Care Transitionon [id number] Note - ED Care TransitionED Care Transition: Chart Review: ED NOTES ED NOTES: Signed out by Dr. Houston with MRI pending. MRI without acute findings. Ok to dc home. CLINICAL IMPRESSION Diagnosis/Annotation: ED Dx Name:Syncope Code:R55 Disposition: discharged ATTESTATION CRITICAL CARE TIME Is this a critically ill patient: no Electronic Signatures: Millicent Ross) (Signed 01-Sep-2020 02:17) Authored: ED Notes, Clinical Impression, Attestation, Chart Review, Scores Last Updated: 01-Sep-2020 02:17 by Millicent Ross)NormalMayo Clinic Health System– OakridgeCBC AND DIFFERENTIALon 08-31-2020% AUTOMATED IMMATURE GRAN0.2 %Normal0.0 - 1.0[facility] System– OakridgeComment on above:Result Comment: Immature Granulocyte Count (IG) includes promyelocytes, myelocytes and metamyelocytes but does not include bands. Percent differential counts (%) should be interpreted in the context of the absolute cell counts (cells/L).Performed By: #### CBCDF #### [facility] [address] [place], [place] [address]Bdlmbeqwu (Bld) [#/Vol]0.02 10*3/uLNormal0.00 - 0.10May[facility] Health System– OakridgeComment on above:Performed By: #### CBCDF #### [facility] [address] [place], [place] [address]Tzoysmien/100 WBC (Bld)0.2 %Normal0.0 - 1.0[facility] System– OakridgeComment on above:Performed By: #### CBCDF #### [facility] [address] [place], [place] [address]Cnehmvqiyej (Bld) [#/Vol]0.04 10*3/uLNormal0.00 - 0.70[facility]– MilwaukeeComment on above:Performed By: #### CBCDF #### [facility] [address] [place], [place] [address]Iphxakcymbr/100 WBC (Bld)0.5 %Normal0.0 - 5.0[facility]– MilwaukeeComment on above:Performed By: #### CBCDF #### [facility] [address] [place], [place] [address]Mlgibfsogoa distribution width (RBC) [Ratio]12.9 %Shbhzh53.5 - 14.5[facility]– MilwaukeeComment on above:Performed By: #### CBCDF #### [facility] [address] [place], [place] [address]Omzgytdekx (Bld) [Volume fraction]47.3 %Rrwlhh08.0 - 49.0[facility]– MilwaukeeComment on above:Performed By: #### CBCDF #### [facility] [address] [place], [place] [address]Saunezthwo (Bld) [Mass/Vol]15.8 g/dXHimekc18.0 - 16.0[facility]– MilwaukeeComment on above:Performed By: #### CBCDF #### [facility] [address], [place] [address]Frwdkehdyag (Bld) [#/Vol]1.53 10*3/uLLow1.80 - 4.80[facility]– MilwaukeeComment on above:Performed By: #### CBCDF #### [facility] [address] [place], [place] [address]Rjpwfqsvlps/100 WBC (Bld)18.1 %Ozyfqk27.0 - 48.0[facility]– MilwaukeeComment on above:Performed By: #### CBCDF #### [facility] [address] [place], [place] [address]WLCD (RBC) [Mass/Vol]33.4 g/qJMthyju39.0 - 37.0[facility]– MilwaukeeComment on above:Performed By: #### CBCDF #### [facility] [address] [place], [place] [address]NSF (RBC) [Entitic vol]87 dXJsjksn24 - 102[facility]– MilwaukeeComment on above:Performed By: #### CBCDF #### [facility] [address] [place], [place] [address]Baeavldxm (Bld) [#/Vol]0.58 10*3/uLNormal0.10 - 1.00[facility]– MilwaukeeComment on above:Performed By: #### CBCDF #### [facility] [address] [place], [place] [address]Qxvpwmtvt/100 WBC (Bld)6.8 %Normal3.0 - 9.0[facility]– MilwaukeeComment on above:Performed By: #### CBCDF #### [facility] [address] [place], [place] [address]Gzvzbuzctie (Bld) [#/Vol]6.28 10*3/uLNormal1.20 - 7.70[facility]– MilwaukeeComment on above:Performed By: #### CBCDF #### [facility] [address] [place], [place] [address]Gtdqlucrikv/100 WBC (Bld)74.2 %Qymeno28.0 - 69.0[facility]– MilwaukeeComment on above:Performed By: #### CBCDF #### [facility] [address] [place], [place] [address]Tbzfcbfqa (Bld) [#/Vol]213 10*3/aQMlfsvw200 - 400[facility]– MilwaukeeComment on above:Performed By: #### CBCDF #### [facility] [address] [place], [place] [address]HKI0.46 x10E12/LHigh4.50 - 5.30[facility]– MilwaukeeComment on above:Performed By: #### CBCDF #### [facility] [address] [place], [place] [address]QKO (Bld) [#/Vol]8.5 10*3/uLNormal4.5 - 13.5[facility] MilwaukeeComment on above:Performed By: #### CBCDF #### [facility] [address] [place], [place] [address]YDUIFFQBHBCYA PANELon 75-25-5003Ltpvmiu [Mass/Vol]4.7 g/dL Normal3.4 - 5.0[facility]– MilwaukeeComment on above:Performed By: #### CMP #### [facility] [address] [place], [place] [address]TBX [Catalytic activity/Vol]123 U/QMkoxpa70 - 139[facility]– MilwaukeeComment on above:Performed By: #### CMP #### [facility] [address] [place], [place] [address]VMO [Catalytic activity/Vol]20 U/LNormal3 - 28[facility] Wisconsin– MilwaukeeComment on above:Result Comment: Patients treated with Sulfasalazine may generate falsely decreased results for ALT.Performed By: #### CMP #### [facility] [address] [place], [place] [address]Nadxk gap [Moles/Vol]15 mmol/QBqqfvn01 - 30[facility]– MilwaukeeComment on above:Performed By: #### CMP #### [facility] [address], [place] [address]LXJ [Catalytic activity/Vol]24 U/LNormal9 - 32[facility]– MilwaukeeComment on above:Performed By: #### CMP #### [facility] [address] [place], [place] [address]Dfzcirxwe [Mass/Vol]0.3 mg/dLNormal0.0 - 0.9[facility] System– OakridgeComment on above:Performed By: #### CMP #### [facility] [address] [place], [place] [address]Ylwzczu [Mass/Vol]9.6 mg/dLNormal8.5 - 10.7[facility]– MilwaukeeComment on above:Performed By: #### CMP #### [facility] [address] [place], [place] [address]Ceqlespn [Moles/Vol]103 mmol/MIponwx67 - 107[facility]– MilwaukeeComment on above:Performed By: #### CMP #### [facility] [address] [place], [place] [address]Mnjgvmpvdr [Mass/Vol]1.01 mg/dLNormal0.60 - 1.10[facility]– MilwaukeeComment on above:Performed By: #### CMP #### [facility] [address] [place], [place] [address]Pipwmey [Mass/Vol]123 mg/vUQoym84 - 99[facility] [place] Comment on above:Performed By: #### CMP #### [facility] [address] [place], [place] [address]GJA8 (Bld) [Moles/Vol]26 mmol/RYxeshq33 - 27[facility]– MilwaukeeComment on above:Performed By: #### CMP #### [facility] [address] [place], [place] [address]Hmchgmyua [Moles/Vol]4.1 mmol/LNormal3.5 - 5.3[facility] MilwaukeeComment on above:Performed By: #### CMP #### [facility] [address] [place], [place] [address]Cayuogr [Mass/Vol]7.0 g/dLNormal6.2 - 7.7[facility]– MilwaukeeComment on above:Performed By: #### CMP #### [facility] [address] [place], [place] [address]Dbcndz [Moles/Vol]140 mmol/EMnfafz891 - 145[facility]– MilwaukeeComment on above:Performed By: #### CMP #### [facility] [address] [place], [place] [address]Bhez nitrogen [Mass/Vol]16 mg/dLNormal6 - 23[facility]– MilwaukeeComment on above:Performed By: #### CMP #### [facility] [address] [place], [place] [address]QM C-SPINE WO CONTRASTon [id number] C-SPINE WO CONTRASTMRN: [id number] Patient Name: CAMERON TERESA STUDY: CT HEAD WO CONTRAST; CT FACIAL BONES; CT C-SPINE WO CONTRAST; 08/31/2020 9:55 pm INDICATION: syncope, hit right side of face and head. COMPARISON: None. ACCESSION NUMBER(S): [id number]; [id number]; [id number] ORDERING CLINICIAN: FAHEEM LINDSAY TECHNIQUE: Axial noncontrast [...] traumatic malalignment. Electronically signed by: GORGE BRAXTON MDSt. James Parish Hospital CT FACIAL BONESon [id number] FACIAL BONESMRN: [id number] Patient Name: CAMERON TERESA STUDY: CT HEAD WO CONTRAST; CT FACIAL BONES; CT C-SPINE WO CONTRAST; 08/31/2020 9:55 pm INDICATION: syncope, hit right side of face and head. COMPARISON: None. ACCESSION NUMBER(S): [id number]; [id number]; [id number] ORDERING CLINICIAN: FAHEEM LINDSAY TECHNIQUE: Axial noncontrast [...] traumatic malalignment. Electronically signed by: GORGE BRAXTON MDSt. James Parish Hospital CT HEAD WO CONTRASTon [id number] HEAD WO CONTRASTMRN: [id number] Patient Name: CAMERON TERESA STUDY: CT HEAD WO CONTRAST; CT FACIAL BONES; CT C-SPINE WO CONTRAST; 08/31/2020 9:55 pm INDICATION: syncope, hit right side of face and head. COMPARISON: None. ACCESSION NUMBER(S): [id number]; [id number]; [id number] ORDERING CLINICIAN: FAHEEM LINDSAY TECHNIQUE: Axial noncontrast [...] traumatic malalignment. Electronically signed by: GORGE BRAXTON MDSt. James Parish Hospital Provider Note - ED v2on 35-83-5585Wugiwinp Note - ED i8Qlmbdwlj Note - ED v2: Chart Review: ED [...] sudden cardiac . Family HX: Denies any significant/pertinent family history. Social Hx: Polysubstance drug use [...] with sinus arrhythmia, ventricular rate 72 bpm, IN interval 146, QRS duration 86, QTc 387, [...] I did discuss with trauma surgery at [facility], Dr. Hopkins, who recommended MRI [...] patient is to follow-up (more content not included)...NormalUH [facility] Hospital Of Wisconsin– MilwaukeeTROPONIN I on 46-41-8381Nlucjfmp I.cardiac [Mass/Vol]ng/mLNormal0.00 - 0.03UH [facility] Medical CenterComment on above:Result Comment: LESS THAN 0.04 NG/ML: NEGATIVE REPEAT [...] is performed using different testing methodology at [facility] than at other [facility] hospitals. Direct result comparisons should only be made within the same method.Performed By: #### TROP2 #### [facility] [address] [place], [place] [address]Qwplvx - ED Pedson 96-07-6657Nudqeq - ED PedsTriage: Chart Review: CHIEF COMPLAINT CAMERON TERESA is [...] no Acuity Level: 2 Peds Complaint Code ([facility] ONLY): N/A [facility] ABCD PRIMARY ASSESSMENT CAMERON TERESA's primary assessment is Within Defined Limits. The airway is open and patent. Breathing spontaneous and unlabored with clear breath sounds bilaterally. Circulation is normal with good peripheral pulses. Skin is warm and dry and color is normal for race. Alert and appropriate for age. RISK SCREEN Mineral Suicide Risk Screen Risk Screen Not Applicable/Able [...] Last Updated: 31-Aug-2020 20:03 by Magui Lam (AGUILA)St. [facility] Parish HospitalCOMPLETE BLOOD COUNTon 76-71-4953Biwqnftzwhe distribution width (RBC) [Ratio]13.6 %Tmmuri91.5-14.5The [facility] SystemComment on above:Performed By: #### CBC #### [facility] [address] [place] [address], [address]Uepfofauxe (Bld) [Volume fraction]47.5 %Hoftmc07.0-49.0 [facility] SystemComment on above:Performed By: #### CBC #### [facility] [address] [place] [address], [address]Tglevahufl (Bld) [Mass/Vol]15.5 g/hPBdpgti61.2-15.6[facility] SystemComment on above:Performed By: #### CBC #### [facility] [address] [place] [address], [address]WJL (RBC) [Entitic mass]28.2 noIqvqbl61.0-35.0[facility] SystemComment on above:Performed By: #### CBC #### [facility] [address] [place] [address], [address]JIPJ (RBC) [Mass/Vol]32.6 g/gAGmhtsk13.0-35.9The [facility] SystemComment on above:Performed By: #### CBC #### [facility] [address] [place] [address], [address]STM (RBC) [Entitic vol]86 mDBmusvr58-045Tgi [facility] SystemComment on above:Performed By: #### CBC #### [facility] [address] [place] [address], [address]Xqidjtwv mean volume (Bld) [Entitic vol]9.6 fLNormal 7.5-11.2The [facility] SystemComment on above:Performed By: #### CBC #### [facility] [address] [place] [address], [address]Kpilovkxl (Bld) [#/Vol]155 10*3/xXAzxmeg593-531Tou [facility] SystemComment on above:Performed By: #### CBC #### [facility] [address] [place] [address], [address]HYL (Bld) [#/Vol]5.49 10*6/uLHigh4.50-5.30The [facility] SystemComment on above:Performed By: #### CBC #### [facility] [address] [place] [address], [address]ZMI (Bld) [#/Vol]4.6 10*3/uLNormal4.5-13.0The [facility] SystemComment on above:Performed By: #### CBC #### [facility] [address] [place] [address], [address]APTzi 92-32-6766VSN Qn2.625 uIU/mLNormal0.700-6.000The [facility] SystemComment on above:Performed By: #### TSH HS #### [facility] [address] [place] [address], [address]EBENJMY D, 25-HYDROXYon 05-57-0084NYBV4370.7 ng/mLLow 30.0-100.0The [facility] SystemComment on above:Performed By: #### VITD25 #### [facility] [address] [place] [address], [address]WQBNMGR PROGon [id number] PROGHNO ID: [id number] Author: Mingo BeckhamRn) Rashaad RN Service: Nursing Author Type: Registered Nurse Type: Nursing Progress Note Filed: 06/10/2020 11:32 AM Note Text: Nursing Progress Note Patient Name: Cameron Teresa Patient Location: [id number] Daily Note: Pt awake at 0800, standing [...] and used that info to put mom manager of loss prevention operations list and limit it to 1 call per day and no visits at this time. Pt mumbled that's bull shit after LIP left room. 1100- Pt is calm at this time and is in school. This note was completed by: Mingo Neil RNLake Regional Health SystemalPenikese Island Le[facility] Hospital ID: [id number] Author: Sylwia BeckhamRn) AGUILA Jarvis Service: Nursing Author Type: Registered Nurse Type: Nursing Progress Note Filed: 06/10/2020 2:02 AM Note Text: Nursing Progress Note Patient Name: Cameron Teresa Patient Location: [id number] Daily Note: Patient awake in room at [...] and safety. This note was completed by: Pamella MchughNorth [facility] HospitalPL[facility] on [id number]: [id number] Author: Corrine Munoz Service: Psychiatry Author Type: Physician Type: Plan of Care Filed: 06/10/2020 11:40 AM Note Text: BEHAVIORAL HEALTH INPATIENT INTERDISCIPLINARY TREATMENT PLAN UPDATE DATE INITIATED: 06/10/2020 11:17 AM Patient's Goal of Treatment: Get on meds and be stable Active Hospital Problems MDD (major depressive disorder) PTSD (post-traumatic stress disorder) Polysubstance abuse (HCC) Criteria for Discharge: Elimination/reduction of presenting behavior: SI Estimated length of [...] 06/09/20 Progress Towards Short Term Goals: Progressing Cutting Room Supervisor Goals: Identify positive alternatives to self-injurious behavior Target Date Alf Goals: 06/11/20 Progress Towards Cutting Room Supervisor Goals: Progressing Interventions - Nursing: Initiate safety [...] 06/09/20 Progress Towards Short Term Goals: Progressing Alf Goals: Identify positive alternatives to aggession Target Date Cutting Room Supervisor Goals: 06/11/20 Progress Towards Alf Goals: Progressing Interventions - Nursing: Remain calm and firmly set limits for the patient's behaviors;Administer medications as indicated and monitor patient for effect;Provide education to the patient and/or family about the disease process and management as appropriate Interventions - Social Work: Coordination with family;Coordination with outpatient providers Staff in attendance and in agreement with this plan: Attending: Dr. Munoz Resident: Dr Perez Physician Rn Circulating: Matthew Ellison Nurse: KEN Madsen, RN Rolling Machine Operator: Linnea Hester Pharmacy: [facility] Recreational Therapy: Loly Chand This plan was reviewed with patient/family. Attending Psychiatrist: Dr. Munoz DOCUMENTED BY: Mingo Neil, RN PATIENT NAME: Cameron Teresa DATE: June 10, 2020 TIME: 11:17 AM PAGER/CONTACT #:[facility] 06-10-2020 SOCIAL WORKHNO ID: [id number] Author: Alvaro Mims (Sw) Service: Social Work Author Type: Rolling Machine Operator Type: Social Work Filed: 06/10/2020 9:04 AM Note Text: CHILD AND ADOLESCENT PSYCHIATRY SOCIAL WORK ONGOING ASSESSMENT PATIENT NAME: Cameron Teresa ADDRESS: [address] [place], [place] [id number] [facility] ADMIT DATE: 06/06/2020 DATE of SERVICE: 06/10/2020 Cameron was discussed in treatment team. Cameron is ready for discharge at the time of this note. Collateral information collected: Plan is for patient to be transported via ambulance today to [facility] at 12:30pm order picker/assembler time. Spoke with step mother, Noa, to confirm discharge for today back to [facility] via ambulance, step mother confirmed this is the plan and did not have any other questions at this time. Follow-up: ? Inpatient Substance Abuse treatment/Psychiatry and therapy services Name:?Regina, therapist - Viki, supervisor winding department? ext [phone] Agency: [facility] Location:?[address] [place] [address] Phone:? Appointment: June 10, 2020 at 1:30pm ? Current psychiatrist Name:?Dr. Benjamin Agency:?[facility] Location:?[place] Phone:?[phone] Next appointment: to be made after [facility] placement? ? Current therapist?(has not seen for several months due to IHBT AND [facility]) Name:?Millicent Sahni Agency:?[facility] Location:[facility] Phone:?[phone] Next appointment confirmed???No - to be considered once treatment at [facility] is completed. ? IHBT from November to April Name:?[place] Agency:?[facility] Location:?[place] Phone:?[phone] Next appointment: to made after [facility] placement ? Family and Children and [facility] Name: Marielos Durbin Agency: [facility] Board ? ? ? Other residentials to consider after [facility] 1. [facility] located at?[address] [place] [address], phone:?[phone],?[email or web address] 4. [facility], location: [place] Phone:?[phone] - parent must call to follow up 5. [facility] located at?[address] [place] [address], phone: [phone], fax: [phone] 6. [place] located at?[address] [address], phone:? SIGNATURE: ORESTES Ornelas DATE of SERVICE: 06/10/2020 TIME of SERVICE: 8:18 [facility] [id number] HEALTHHNO ID: [id number] Author: Linnea (Therapist) Mendy Service: Music Therapy [...] schedule allows, ITP reviewed Therapist: Linnea Brooke MTSan[facility] ID: [id number] Author: Pearl (Sql Bi Developer) Mannie Service: Recreational Therapy Author Type: Therapist [...] affect was flat. ? Signature: Pearl Chand, [facility] Date: June 09, 2020 Time: 4:39 [facility] PROGon [id number] PROGHNO ID: [id number] Author: Mingo (Rn) AGUILA Neil Service: Nursing Author Type: Registered Nurse Type: Nursing Progress Note Filed: 06/09/2020 6:13 PM Note Text: Nursing Progress Note Patient Name: Cameron Teresa Patient Location: [id number] Daily Note: Pt awake at 0830- ate [...] This note was completed by: Mingo Neil RNCambridge Hospital ID: [id number] Author: Lauren (Rn) AGUILA Núñez Service: Nursing Author Type: Registered Nurse Type: Nursing Progress Note Filed: 06/09/2020 2:53 AM Note Text: Nursing Progress Note Patient Name: Cameron Teresa Patient Location: [id number] Daily Note: pt did not attend the movie [employer] and was just hanging out in his [...] This note was completed by: Lauren Núñez RNLowell General HospitalPLAN OF CARE on [id number] ID: [id number] Author: Corrine Munoz Service: Psychiatry Author Type: Physician Type: Plan of Care Filed: 06/09/2020 1:00 PM Note Text: BEHAVIORAL HEALTH INPATIENT INTERDISCIPLINARY TREATMENT PLAN UPDATE DATE INITIATED: 06/09/2020 10:02 AM Patient's Goal of Treatment: Get on meds and be stable Active Hospital Problems MDD (major depressive disorder) PTSD (post-traumatic stress disorder) Polysubstance abuse (HCC) Criteria for Discharge: Elimination/reduction of presenting behavior: SI Estimated length of [...] 06/09/20 Progress Towards Short Term Goals: Progressing Alf Goals: Identify positive alternatives to self-injurious behavior Target Date Alf Goals: 06/11/20 Progress Towards Alf Goals: Progressing Interventions - Nursing: Initiate safety [...] 06/09/20 Progress Towards Short Term Goals: Progressing Alf Goals: Identify positive alternatives to aggession Target Date Alf Goals: 06/11/20 Progress Towards Alf Goals: Progressing Interventions - Nursing: Initiate safety [...] Attending: Dr. Munoz Resident: Dr. Perez Physician Rn Circulating: Matthew Ellison Nurse: KEN Madsen, RN Rolling Machine Operator: Alvaro Power Pharmacy: [facility] Recreational Therapy: Loly Chand This plan was reviewed with patient/family. Attending Psychiatrist: Dr. Munoz DOCUMENTED BY: Mingo Neil, RN PATIENT NAME: Cameron Teresa DATE: June 09, 2020 TIME: 10:02 AM PAGER/CONTACT #:Ashley Miranda 06-09-2020 PROGRESSHNO ID: [id number] Author: Corrine Munoz Service: Pediatric Psychiatry Author [...] substance abuse treatment. Has been [facility]. Patient continues to show improvement with his medication and participation in group activities will likely anticipate discharge on 06/10 [facility]. Active Hospital Problems Diagnosis Date Noted [...] Overview Note: Currently in residential treatment at [facility]. Main drug of abuse currently = [...] relevant to this admission above. Medications Current Facility-Administered Medications Medication Dose Route Frequency - melatonin [...] laboratory results have been reviewed. SIGNATURE: Linnea Stein DO DATE of SERVICE: June 09, 2020 TIME of SERVICE: 9:29 AM [facility] STAFF: TEACHING PHYSICIAN NOTE OF PERSONAL [...] We discussed plan to discharge back to [facility] and patient was eager for this plan. [...] TIME: 2:15 PM Authenticated by responsible provider. NormalFairview HospitalSOCIAL WORKon [id number] WORK HNO ID: [id number] Author: Alvaro Mims (Sw) Service: Social Work Author Type: Rolling Machine Operator Type: Social Work Filed: 06/09/2020 2:57 PM Note Text: CHILD AND ADOLESCENT PSYCHIATRY SOCIAL WORK ONGOING ASSESSMENT PATIENT NAME: Cameron Teresa ADDRESS: [address] [place] [address] COUNTY: [place] ADMIT DATE: 06/06/2020 DATE of SERVICE: 06/09/2020 Cameron was discussed in treatment team. Cameron is not ready for discharge at the time of this note. Collateral information collected: Spoke with Viki Cobb at [facility] who reports the patient has been at their agency 3x, they were talking with the patient on Tuesday about his desire to step down to the recovery housing and this led to the disagreement as staff at [facility] do not feel he is ready to step down yet. When ready to step down, patient would have more privileges, less staff monitoring in order to allow the patient to transition home eventually. [facility] staff do not think any residential placement afterwards would be of much use as the patients primary need is substance use and sobriety and could then see an out patient provider for mental health services. [facility] is willing to take the patient back into their program when he is ready for discharge from the hospital. Phone call to step mother/father who reports she would like patient to return to [facility] with the plan for referrals for mental health residential placements once he is completed with [facility]. Step mother would like referrals to be sent out to [facility] and [facility]. Discussed the financial commitment that the family would be required to assist with,shazia hemphill reports [facility] is helping to fund [facility] in addition to the insurance coverage. [facility] is not accepting any new referrals for admissions at this time. [facility] is not accepting patients over the age of 12 at this time. Faxed to [facility] [place], [facility] and called [facility] Phone call to [facility], message left for Viki to update her about discharge for Tuesday and to coordinate return to placement of patient. Phone call to Marielos Durbin at [facility], message left requesting a return call. Spoke with [facility] who is in agreement with patient returning on Tuesday, will contact family to discuss discharge and transport plan. Spoke with step mother who reports the plan is for patient to return to [facility], via ambulance is the preferred method by the family. Also updated the referrals sent for residential placement. Mother requested the doctor call her for an update today, message shared with Dr Booker. Ambulance set for 12:30pm order picker/assembler on Tuesday to transport patient to [facility], family and [facility] are aware. Follow-up: ? Inpatient Substance Abuse treatment Name: Regina, therapist - Viki, supervisor winding department ext [phone] Agency: [facility] Location: [address] [place] [address] Appointment: returning back. ? Current psychiatrist Name:?Dr. Benjamin [facility] Location:?[place] Phone:?[phone] Next appointment: to be made after [facility] placement ? Current therapist (has not seen for several months due to [facility]BT AND [facility]) Name:?Millicent Sahni [facility] Location:?[place] Phone:?[phone] Next appointment confirmed???No ? IHBT from November to April Name:?[place] Agency:?[facility] Location:?[place] Phone:?[phone] Next appointment: to made after [facility] placement [facility] and [facility] Name: Marielos Durbin Agency: [facility] ? Other residentials to consider after [facility] 1. [facility] located at [address] [place] [address], phone: [phone], [email or web address] 2. [facility] located at [address] [place] [address], 3. [place] located at [address] [place] [address], 4. [facility], location: [place] 5. [facility] located at [address] [place] [address], phone: [phone], fax: [phone] 6. [place] located at [address] [address], phone: SIGNATURE: ORESTES Ornelas DATE of SERVICE: 06/09/2020 TIME of SERVICE: 8:23 [facility] [id number] HEALTHHNO ID: [id number] Author: Fatuma BeckhamSql Bi Developersue Madden Service: Recreational Therapy Author Type: Therapist Type: [...] comforting to others . Signature: Fatuma Madden, HEATER ENGINEER HELPER Date: June 08, 2020 Time: 12:35 [facility] [id number] PROGHNO ID: [id number] Author: Mingo BeckhamRn) AGUILA Neil Service: Nursing Author Type: Registered Nurse Type: Nursing Progress Note Filed: 06/08/2020 6:02 PM Note Text: Nursing Progress Note Patient Name: Cameron Teresa Patient Location: [place] [address]/[id number]- Daily Note: Pt awake at 0800, cooperative [...] This note was completed by: Mingo Neil RNCambridge Hospital ID: [id number] Author: Zaria BeckhamRn) AGUILA Nieto Service: Nursing [...] to monitor q15min and review his [place] plan.[facility] 06-08-2020 PLAN OF CAREHNO ID: [id number] Author: Caroline Durand Service: Psychiatry Author Type: Physician Type: Plan of Care Filed: 06/08/2020 6:13 PM Note Text: BEHAVIORAL HEALTH INPATIENT INTERDISCIPLINARY TREATMENT PLAN UPDATE DATE INITIATED: 06/08/2020 5:58 PM Patient's Goal of Treatment: Get on meds and be stable Active Hospital Problems MDD (major depressive disorder) PTSD (post-traumatic stress disorder) Polysubstance abuse (HCC) Criteria for Discharge: Elimination/reduction of presenting behavior: SI Estimated length of [...] appropriate level of care and initiate referral;Collateral information;Coordination with family;Coordination with outpatient providers;Develop aftercare plan;Family meeting Problem - Risk of Harm to Self Interventions - Nursing: Provide a quiet, restful environment to promote sleep/rest Interventions - Social Work: Assess for appropriate level of care and initiate referral;Coordination with family;Coordination with outpatient providers Problem - Risk of Harm to Others Interventions - Nursing: Provide a quiet, restful environment to promote sleep/rest Interventions - Social Work: Assess for appropriate level of care and initiate referral;Coordination with family;Coordination with outpatient providers Staff in attendance and in agreement with this plan: Attending: Dr Durand Nurse: KEN Madsen, RN Rolling Machine Operator: ORESTES Power This plan was reviewed with patient/family. Attending Psychiatrist: Dr. Durand DOCUMENTED BY: Mingo Neil RN PATIENT NAME: Cameron Teresa DATE: June 08, 2020 TIME: 5:58 PM PAGER/CONTACT #:[facility] 06-08-2020 PROGRESSHNO ID: [id number] Author: Caroline Durand Service: Psychiatry Author Type: [...] Overview Note: Currently in residential treatment at [facility]. Main drug of abuse currently = meth Last use 5-6 weeks ago PLAN: - determine appropriate outpatient planning (CD vs mood vs dual diagnosis) - consider use of medication to assist with persistent meth cravings - family currently reluctant SUBJECTIVE Per nursing notes: Reviewed nursing notes and updated plan of care during treatment team meeting. Camerno currently working on safety plan? Yes. HE [...] because he [facility] New problems (including any need for seclusion/restraint) [...] Also discussed a overwhelmed parent case with [facility]. Offered [facility] but she stated that they could not afford this option. ? Medical History Medical history reviewed and included as relevant to this admission above. Medications Current Facility-Administered Medications Medication Dose Route Frequency - melatonin [...] June 08, 2020 TIME of SERVICE: 6:13 [facility] [id number] ID: [id number] Author: Linnea Todd (Sw) Service: Social Work Author Type: Rolling Machine Operator Type: Social Work Filed: 06/08/2020 3:10 PM Note Text: CHILD AND ADOLESCENT PSYCHIATRY SOCIAL WORK ONGOING ASSESSMENT PATIENT NAME: Cameron Teresa ADDRESS: [address] [place] [address] COUNTY: [place] ADMIT DATE: 06/06/2020 DATE of SERVICE: 06/08/2020 Cameron was discussed in treatment team. Cameron is not ready for discharge at the time of this note. Treatment team: it is recommended that the [facility] and then the family look into alterative residential treatment centers once [facility] is complete. The patient's insurance approved [facility], per the last school social worker note. Spoke with chan. Discussed [...] Also discussed a overwhelmed parent case with [facility]. Offered [facility] but she stated that they could not afford this option. animal care worker to follow up with chan and [facility] regarding any referrals to residential treatment centers. animal care worker emailed Mary with [facility] asking if they would accept the patient back into their program at d/c. Follow up: Inpatient Substance Abuse treatment Name: Regina, therapist Giovany, supervisor winding department Agency: [facility] Location: [address] [place] [address] Appointment: returning back. Current psychiatrist Name: Dr. Benjamin Agency: [facility] Location: [place] Next appointment: to be made after [facility] placement ? Current therapist (has not seen for several months due to [facility]HBT AND [facility]) Name: Millicent Sahni Agency: [facility] Location: [place] Next appointment confirmed? No ? IHBT from November to April Name: [place] Agency: [facility] Location: [place] Next appointment: to made after [facility] placement ? Other residentials to consider after [facility] 1. [facility] [place] [address] [place] [address], phone: [phone], [email or web address] 2. [place] located at [address] [place] [address], 3. [place] [address] [place] [address], 4. [facility], location: [place] 5. [facility] located at [address] [place] [address], phone: [phone], fax: [phone] 6. [place] located at [address] [place] [address], phone: SIGNATURE: SUSAN Foley DATE of SERVICE: 06/08/2020 TIME of SERVICE: 12:07 [facility] [id number] HEALTHHNO ID: [id number] Author: Fatuma Madden (Ctrs) Service: Recreational Therapy [...] emotion experienced to anger. Signature: Fatuma Madden, HEATER ENGINEER HELPER Date: June 07, 2020 Time: 1:51 PMNCuster [facility] ID: [id number] Author: Fatuma Madden (Ctrs) Service: Recreational Therapy [...] follow up and work on completion throughout admission.[facility] ID: [id number] Author: Fatuma Valadez) [place] Service: Recreational Therapy Author Type: Therapist Type: [...] music, spending time with family, working at [employer] PATIENT'S GOALS FOR RECREATIONAL THERAPY PROGRAM: being stable on my new meds Recreational Therapy Recommendations: Pt will practice utilizing effective coping skills through engaging in therapeutic activity. Pt will practice expressing thoughts/feelings/emotions appropriately through engaging in therapeutic activity. GENERAL OBSERVATIONS: Clean and groomed Communicates easily Cooperative Good attitude Oriented Pleasant Signature: Fatuma Madden, HEATER ENGINEER HELPER Date: June 07, 2020 Time: 12:25 PMNormalGuardian Hospital and Differentialon [id number] Baso <0.03Normal<0.11[facility] HospitalComment on above:Performed By: #### CMP, CBCDIF, TSH, LIPB ####[place] [phone]#### HBA1C ####[facility] [address] [place] [phone] Mono0.38 k/uLNormal<0.87[facility] HospitalComment on above:Performed By: #### CMP, CBCDIF, TSH, LIPB ####[place] [address]#### HBA1C ####[facility] [address]475 -[address]Abs Neut2.70 k/uLNormal1.45-7.50[place] HospitalComment on above:Performed By: #### CMP, CBCDIF, TSH, LIPB ####[place] [address]#### HBA1C ####[place] [phone] nRBC<0.01 Normal<0.01[facility] HospitalComment on above:Performed By: #### CMP, CBCDIF, TSH, LIPB ####[place] [address]#### HBA1C ####[place] [address] [place] [address] [phone]/100 WBC (Bld)0.2 %NormalSuccasunna HospitalComment on above:Performed By: #### CMP, CBCDIF, TSH, LIPB ####[place] [address]#### HBA1C ####[place] [address] [address] AveCR[address] [phone] -39[address]DTYPEAuto DiffNormalFarutland heights state hospital HospitalComment on above:Performed By: #### CMP, CBCDIF, TSH, LIPB ####[place] [address]#### HBA1C ####[place] [address] [address] AveCRachel [address] [phone] (Bld) [#/Vol]0.05 10*3/uLNormal <0.46[facility] HospitalComment on above:Performed By: #### CMP, CBCDIF, TSH, LIPB ####[place] [address]#### HBA1C ####[place] [address] [address] Ave[address] [phone]/100 WBC (Bld)1.1 %NormalSuccasunna HospitalComment on above:Performed By: #### CMP, CBCDIF, TSH, LIPB ####[place] [address]#### HBA1C ####[place] [address] [place] [phone] distribution width (RBC) [Ratio]12.6 %Cctwbn30.5-15.0[facility] HospitalComment on above:Performed By: #### CMP, CBCDIF, TSH, LIPB ####[place] [address]#### HBA1C ####[place] [address] [place] Av[place] [place] [phone] (Bld) [Volume fraction]47.4 %Wcbyzw05.0-51.0[facility] HospitalComment on above: Performed By: #### CMP, CBCDIF, TSH, LIPB ####[place] [address]#### HBA1C ####[place] [phone] (Bld) [Mass/Vol]15.9 g/xTLqlwft26.0-17.0[facility] HospitalComment on above:Performed By: #### CMP, CBCDIF, TSH, LIPB ####[place] [address]#### HBA1C ####[place] [phone] (Bld) [#/Vol]1.35 10*3/uLNormal1.00-4.00[facility] Medical CenterComment on above:Performed By: #### CMP, CBCDIF, TSH, LIPB ####[address]#### HBA1C ####[place] [address] [place] [address] [place] [phone]/100 WBC (Bld)30.0 %NormalSuccasunna HospitalComment on above:Performed By: #### CMP, CBCDIF, TSH, LIPB ####[place] [phone]#### HBA1C ####[place] [address] [address] AveCMatthew [address] [phone] (RBC) [Entitic mass]29.0 pGNormal 26.0-34.0[facility] HospitalComment on above:Performed By: #### CMP, CBCDIF, TSH, LIPB ####[place] [address]#### HBA1C ####[place] [address] [place] [address] [phone] (RBC) [Mass/Vol]33.5 g/bOOfhddi21.5-36.0[facility] Comment on above:Performed By: #### CMP, CBCDIF, TSH, LIPB ####[place] [phone]#### HBA1C ####[place] [address] [address] AveCM[address]thew [address] [phone] (RBC) [Entitic vol]86.3 iYOymzct24.0-100.0[facility] HospitalComment on above:Performed By: #### CMP, CBCDIF, TSH, LIPB ####[place] [phone]#### HBA1C ####[place] [address] [place] [address] [phone]/100 WBC (Bld)8.4 %NormalSuccasunna HospitalComment on above:Performed By: #### CMP, CBCDIF, TSH, LIPB ####[place] [phone]#### HBA1C ####[place] [address] [address] AveCM[address] [place] [phone]/100 WBC (Bld)60.3 %Normal [facility] Medical CenterComment on above:Performed By: #### CMP, CBCDIF, TSH, LIPB ####[place] [address]#### HBA1C ####[place] [address] [address] AveCM[address]thew [address] [phone] /100 DUQBqjvhk1Llxrlkre HospitalComment on above: Performed By: #### CMP, CBCDIF, TSH, LIPB ####[place] [address]#### HBA1C ####[place] [address] [address] AveCM[address]thew [address] [phone] mean volume (Bld) [Entitic vol]11.2 fLNormal9.0-12.7[facility] HospitalComment on above: Performed By: #### CMP, CBCDIF, TSH, LIPB ####[place] [address]#### HBA1C ####[place] [address] [address] AveCM[address]thew [address] [phone] (Bld) [#/Vol]165 10*3/rYLqwppx578-933Wdaybjet HospitalComment on above:Performed By: #### CMP, CBCDIF, TSH, LIPB ####[place] [address]#### HBA1C ####[place] [address] [address] AveCM[address]thew [place] [phone] (Bld) [#/Vol]5.49 10*6/uLNormal4.20-6.00 [facility] Medical CenterComment on above:Performed By: #### CMP, CBCDIF, TSH, LIPB ####[place] 59[address]#### HBA1C ####[address] [phone] (Bld) [#/Vol]4.50 10*3/uLNormal3.70-11.00[facility] Comment on above:Performed By: #### CMP, CBCDIF, TSH, LIPB ####[place] [phone]#### HBA1C ####[place] [phone] Metabolic Panelon [id number] [Mass/Vol]4.3 g/dLNormal3.5-5.0 [facility] CenterComment on above:Performed By: #### CMP, CBCDIF, TSH, LIPB ####[place] [phone]#### HBA1C ####[address] [phone] [Catalytic activity/Vol]146 U/AVebwlr75-144Udjlfseo HospitalComment on above:Result Comment: Reference ranges were not locally established for this patient's age group. The normal values are based on the following source: Loida MP, Yusuf AH, et al. CLSI based transference of the [facility] database of pediatric reference intervals from Gomez to Pema, Ortho, Jeison, and Siemens Clinical Chemistry Assays: Direct validation using reference samples from the [facility] cohort. Clin Biochem.Performed By: #### CMP, CBCDIF, TSH, LIPB ####[address] [address]11 [phone]#### HBA1C ####[address] [phone] [Catalytic activity/Vol]12 U/LNormal5-50 [facility] CenterComment on above:Performed By: #### CMP, CBCDIF, TSH, LIPB ####[place] [phone]#### HBA1C ####[place] [address] [place] Av[place] [phone] gap [Moles/Vol]9 mmol/LNormal9-18FChelsea Naval HospitalComveterans affairs medical center on above:Performed By: #### CMP, CBCDIF, TSH, LIPB ####[place] [phone]#### HBA1C ####[place] [address] [address] AvSusan [place] [phone] [Catalytic activity/Vol]15 U/LNormal7-40FaMedical [facility] on above:Performed By: #### CMP, CBCDIF, TSH, LIPB ####[place] [phone]#### HBA1C ####[place] [phone] [Mass/Vol]0.4 mg/dLNormal0.2-1.3 [facility] on above:Result Comment: (NOTE) Reference ranges for this patient's age group have not been established. These reference ranges reflect verified or established ranges for the adult population. Interpret these ranges with caution using the clinical context and additional reference resources.Performed By: #### CMP, CBCDIF, TSH, LIPB ####[place] [phone]#### HBA1C ####[place] [address] [place] [phone] [Mass/Vol]9.8 mg/dLNormal8.5-10.5 [facility] on above:Performed By: #### CMP, CBCDIF, TSH, LIPB ####[place] [phone]#### HBA1C ####[place] [address] [place] [phone] [Moles/Vol]106 mmol/VFwbabm77-087[facility] Comment on above:Performed By: #### CMP, CBCDIF, TSH, LIPB ####[place] [phone]#### HBA1C ####[place] [address] [place] [phone] [Moles/Vol]25 mmol/DKzyvfo71-36Mpcdmfpg HospitalComment on above: Performed By: #### CMP, CBCDIF, TSH, LIPB ####[place] [phone]#### HBA1C ####[place] [address] [place] [phone] [Mass/Vol]1.03 mg/dLNormal0.40-1.30[facility] HospitalComment on above:Performed By: #### CMP, CBCDIF, TSH, LIPB ####[place] [phone]#### HBA1C ####[place] [address] [place] [phone] [Mass/Vol] 102 mg/sUJzgz44-180Ctsjpszv HospitalComment on above:Performed By: #### CMP, CBCDIF, TSH, LIPB ####[place] [phone]#### HBA1C ####[place] [address] [place] [phone] [Moles/Vol]4.1 mmol/LNormal3.5-5.0 [facility] CenterComment on above:Performed By: #### CMP, CBCDIF, TSH, LIPB ####[place] [phone]#### HBA1C ####[place] [address] [place] [phone] [Mass/Vol]7.0 g/dLNormal6.0-8.4[facility] HospitalComment on above:Performed By: #### CMP, CBCDIF, TSH, LIPB ####[place] [phone]#### HBA1C ####[phone] [Moles/Vol] 140 mmol/EJwptzn553-612Dqsozmqp HospitalComment on above:Performed By: #### CMP, CBCDIF, TSH, LIPB ####[place] [phone]#### HBA1C ####[phone] nitrogen [Mass/Vol]15 mg/dLNormal5-20 [place] HospitalComment on above:Performed By: #### CMP, CBCDIF, TSH, LIPB ####[place] [phone]#### HBA1C ####[place] [phone] NOTEon [id number] NOTEHNO ID: [id number] Author: Zara (Rn) AGUILA Enciso Service: ? Author Type: Registered Nurse Type: ED Notes Filed: 06/06/2020 10:21 PM Note Text: Report given to transport [facility] HospitalHISTORY PHYSICALon [id number] PHYSICALHNO ID: [id number] Author: Caroline Durand Service: Psychiatry Author Type: [...] currently in residential substance use treatment at [facility] with several previous psychiatric admissions ([facility] in January 2020 and in twice in 2018, and in June 2019) admitted to Inpatient Psychiatry for SI with multiple plans (running into traffic, ODing on OTC medications, or jumping off ledge at [facility]). Family history is significant for mother with ROSITA (currently sober), anxiety, depression, borderline personality disorder. The developmental history is significant for stressors during and meeting all milestones. Previous medications trials were limited to: Zoloft, Prozac, Lexapro, Wellbutrin, Abilify, Vistaril Cameron lives with bio dad, step-mom, and paternal younger half-siblings in [place], [place]. In terms of stressors, patient's family [...] family. When not in residential treatment at [facility], he lives with bio dad, stepmother [...] Overview Note: Currently in residential treatment at [facility]. Main drug of abuse currently = meth Last use 5-6 weeks ago PLAN: - determine appropriate outpatient planning (CD vs mood vs dual diagnosis) - consider use of medication to assist with persistent meth cravings - family currently reluctant HISTORY OF PRESENT ILLNESS CHIEF COMPLAINT(S) Suicidal ideation Per patient report: Cameron reports that he was having a normal day at [facility] yesterday. He states that he was speaking [...] or strangling them until they are . Denyolanda MIN. Patient identified goals of hospitalization: 1. Start medications to improve mood Per caregiver, Héctor and step mom Noa ([phone]): The situation leading up to admission began when Cameron had requested that [facility] allow him to go to recovery housing, a lower level of care, in spite of his not going to therapy or school during the duration of his time at [facility]. Caregivers refused the change in level of [...] completed intense parenting classes and completed [facility] [facility] (November to April 2020). He has [...] Personality Traits: Goal-setting solely based on personal gratification;absence of prosocial internal standards associated with failure [...] 5 months this summer after being at [facility] Review of Systems Constitutional: Negative for chills [...] and family. No pediatric history on file. // Hx: was unremarkable There were stresses during [...] Patient is currently in residential treatment at [facility] ? - Current psychiatrist? Yes Name: [facility]. Benjamin [facility] [place] Next appointment confirmed? No ? - Current therapist? Yes, has not seen for several months due to IHBT AND [facility] Name: Millicent Sahni Agency: [facility] Location: [place] Next appointment confirmed? No ? - Other community support providers? Yes, [facility] from November to April Name: Germain [facility] Location[facility] [place] Next appointment confirmed? No ? - School [...] - NONE Medications Outpatient medications: No current facility-administered medications on file prior to encounter. Current Outpatient Medications on File Prior to Encounter Medication Sig - ARIPiprazole (ABILIFY) 5 mg tablet TAKE 1 1/2 TABLET BY MOUTH DAILY AT BEDTIME. - hydrOXYzine pamoate (VISTARIL) 50 mg capsule TAKE TWO CAPSULES BY MOUTH TWO TIMES A DAY NEEDED Current Facility-Administered Medications Medication Dose Route Frequency - melatonin 10 mg tab(s) 10 mg ORAL AT BEDTIME ALLERGIES No Known Allergies SOCIAL HISTORY Initial Social Work Assessment completed by Vanessa Purvis DATA WAREHOUSING MANAGER [id number] reviewed as needed with patient and family. He lives with bio father, step mother (Noa), 4yo paternal half brother, and 8yo paternal half sister in [place], [place]. - Other pertinent family members? Yes: bio mother AND maternal grandmother - Are there pertinent family stressors? No - Relevant caregiver issues (expectations of hospital stay, reason for admission, involvement in assessment)? No - [facility] the 11th [facility] [employer]itt is in regular age appropriate classes and [...] Cognition: Appears intact in regards to memory, attention/concentration, fund of knowledge and language skills - [...] drug and alcohol use. We will consult emergency medicine medical director to manage any physical complaints or [...] for Implementation of NPSG 15A by Joint Commission Resources SIGNATURE: Astrid Villatoro MD DATE of SERVICE: 06/07/2020 TIME of SERVICE: 11:22 AM [facility] STAFF PHYSICIAN NOTE OF PERSONAL INVOLVEMENT [...] year old male who presents [facility] after [facility] weeks of treatment for [facility] [...] his parents in the 4 [facility] at [facility] we had a very bad relationship, [...] counseling and/or coordinating care for the patient. Atbv-ob-cfni time was 60 minutes SIGNATURE: Caroline Durand MD PAGER: [phone] DATE of SERVICE: June 07, 2020 TIME of SERVICE: 6:21 [facility] Dimock CenterHemoglobin A1con 35-45-8237CfR0d (Bld) [Mass fraction]5.5 %Normal4.3-5.6FChelsea Naval HospitalComment on above:Result Comment: [place] Diabetes Association guidelines indicate that patients with HgbA1c in the range 5.7-6.4% are at increased risk for development of diabetes, and intervention by lifestyle modification may be beneficial. HgbA1c greater or equal to 6.5% is considered diagnostic of diabetes.Performed By: #### CMP, CBCDIF, TSH, LIPB ####[place] [phone]#### HBA1C ####[facility] [place] [phone] (Bld) [Mass fraction]111 mg/dLNormal [facility] on above:Result Comment: eAG: (Estimated average glucose) is a calculated value from HgbA1c and is pharmacy sales representative of the average blood glucose level in the last 2-3 month period.Performed By: #### CMP, CBCDIF, TSH, LIPB ####[place] [phone]#### HBA1C ####[facility] Cycihrjiiewh[address] [place] [phone] Panel, [place] 22-41-3495Ructzyeiqus [Mass/Vol]119 mg/dLNormal<170[facility] HospitalComment on above:Performed By: #### CMP, CBCDIF, TSH, LIPB ####[place] [address]#### HBA1C ####[place] [address] [phone] in HDL [Mass/Vol]43 mg/dLLow>45 [place] HospitalComment on above:Performed By: #### CMP, CBCDIF, TSH, LIPB ####[place] [address]#### HBA1C ####[place] [address] [place] [phone] in LDL [Mass/Vol]61 mg/dLNormal<110[facility] HospitalComment on above:Performed By: #### CMP, CBCDIF, TSH, LIPB ####[place] [address]#### HBA1C ####[place] [address] [place] [phone]:HDL Ratio1.42Normal<2.42[facility] HospitalComment on above:Performed By: #### CMP, CBCDIF, TSH, LIPB ####[place] [address]#### HBA1C ####[place] [address] [address] AveCRachel Ville [phone] HDL Bpdcytkwhut83 mg/dLNormal<120 [facility] HospitalComment on above:Performed By: #### CMP, CBCDIF, TSH, LIPB ####[place] [address]#### HBA1C ####[place] [phone]:HDL Ratio2.77Normal<3.76[facility] HospitalComment on above: Performed By: #### CMP, CBCDIF, TSH, LIPB ####[place] [address]#### HBA1C ####[place] [phone] [Mass/Vol]76 mg/dLNormal<90Fairohiohealth dublin methodist hospital HospitalComment on above:Performed By: #### CMP, CBCDIF, TSH, LIPB ####[place] [address]#### HBA1C ####[place] [phone] Yxjugxbuhhi49 mg/dLNormal<18[facility] HospitalComment on above:Performed By: #### CMP, CBCDIF, TSH, LIPB ####[place] [address]#### HBA1C ####[phone] PROGon [id number] PRONO ID: [id number] Author: Mingo (Rn) AGUILA Neil Service: Nursing Author Type: Registered Nurse Type: Nursing Progress Note Filed: 06/07/2020 5:43 PM Note Text: Nursing Progress Note Patient Name: Cameron Teresa Patient Location: [id number] Daily Note: Pt awake at 0800, polite and cooperative with staff. Pt assessed with C-SSRS, scoring low risk for suicide- therefore standard precautions maintained. Pt inquired about getting a big book from to read here- staff inquiring. Pt interested in attending groups, and expecting parent to visit today. Pt wanting to have bio mom manager of loss prevention operations and/or visiting list- will review with team. 0930- Pt given big book and 06/07 book to read. 1100- Pt sleeping at this time. 1400- Pt informed that bio Mom on list for him to call her. 1600- Pt attended nursing group. Minimal participation noted. This note was completed by: Mingo Neil, AGUILACambridge Hospital ID: [id number] Author: Zaria Salcedo (Rn) AGUILA Nieto Service: Nursing Author Type: Registered Nurse Type: Nursing Progress Note Filed: 06/07/2020 3:22 AM Note Text: IP NURSING BEHAVIORAL HEALTH PEDIATRIC ADMISSION NOTE Cameron Teresa [id number] Cameron Teresa is a 14 year old, male Admitted to Room 4505 After[facility] Pediatrics General Admission Time of Admission: 231 Admitted From: Outside Hospital Transfer Information Provided [...] Obvious Sexual Activity (Have you ever had-?): Pepin Substance use (Have you ever tried-?): Tobacco, Alcohol, Street drugs, Inhalants(Been a month d/t in [facility]) Patient Response to Hospitalization: Other: See Comment( Numb ) Privacy Questions Sexual Activity (Have you ever had-?): Pepin Substance use (Have you ever tried-?): Tobacco, Alcohol, Street drugs, Inhalants(Been a month d/t in [facility]) Behavioral Assessment Behavioral Summary~ Pt admitted 04/06/2020 at 2310 with MDD and SI. He has been residing at [facility] for the past month after running away from home when they found out he stole money from his siblings to buy drugs. 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 He has been implying to his therapist that he will kill himself if he cant stay sober. He has multiple plans including running into traffic, OD'ing on OTC meds or jumping off a ledge at [facility]. He has had stays at [facility] and . Currently not on medication. Suicide/Homicide Assessment Zaria Edwards RNNoFall River Hospital [phone] BEH[facility] ID: [id number] Author: Caroline Durand Service: Psychiatry Author Type: Physician Type: Plan of Care Filed: 06/07/2020 6:28 PM Note Text: BEHAVIORAL HEALTH INPATIENT INTERDISCIPLINARY TREATMENT PLAN UPDATE DATE INITIATED: 06/07/2020 11:01 AM Patient's Goal of Treatment: Get on meds and be stable Active Hospital Problems MDD (major depressive disorder) Criteria for Discharge: Elimination/reduction of presenting behavior: SI Estimated length of [...] appropriate level of care and initiate referral;Collateral information;Coordination with family;Coordination with outpatient providers;Develop aftercare plan;Family meeting Problem - Risk of Harm to Self Interventions - Nursing: Provide a quiet, restful environment to promote sleep/rest Interventions - Social Work: Assess for appropriate level of care and initiate referral;Coordination with family;Coordination with outpatient providers Problem - Risk of Harm to Others Interventions - Nursing: Provide a quiet, restful environment to promote sleep/rest Interventions - Social Work: Assess for appropriate level of care and initiate referral;Coordination with family;Coordination with outpatient providers Staff in attendance and in agreement with this plan: Attending: Dr. Durand Resident: Dr. Villatoro Nurse: Margarita Falcon RN Rolling Machine Operator: ORESTES Ngo This plan was reviewed with patient/family. Attending Psychiatrist: DOCUMENTED BY: Mingo Neil RN PATIENT NAME: Cameron Teresa DATE: June 07, 2020 TIME: 11:01 AM PAGER/CONTACT #:[facility] 06-07-2020 SOCIAL WORKHNO ID: [id number] Author: Vanessa Purvis (Sw) Service: Social Work Author Type: Rolling Machine Operator Type: Social Work Filed: 06/07/2020 2:24 PM Note Text: CHILD AND ADOLESCENT PSYCHIATRY SOCIAL WORK INITIAL ASSESSMENT PATIENT NAME: Cameron Teresa ADDRESS: [address] [place] [address] COUNTY: [place] ADMIT DATE: 06/06/2020 DATE of SERVICE: 06/07/2020 DEMOGRAPHIC ADMISSION DATA Accompanied by no one Custody: biologic father (patient has some contact with bio mother) Family Contact Information: - biologic father's cell number: Héctor [phone] *step mom (Noa) is very involved and [...] Psychiatry for SI. Patient has been at [facility] for the past month (this is his 3rd time). SUBSTANCE ABUSE HISTORY Guardian reports significant concerns about current substance use. 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 Urine drug screen was negative HISTORY Developmental // Hx: was unremarkable There were stresses during , mom has anxiety and depression. Born at Term normal vaginal delivery course was unremarkable Developmental History: Milestones were met on time and within normal expectations. Parents broke up when pt was 1yo. Dad was still seeing pt regularly. Dad obtained full custody 5 years ago. Psychiatric - Patient is currently in residential treatment at [facility] - Current psychiatrist? Yes Name: Dr. Benjamin Agency: [facility] Location: [place] Next appointment confirmed? No - Current therapist? Yes, has not seen for several months due to IHBT AND [facility] Name: Millicent Kaitlyn Agency: [facility] Location: [place] Next appointment confirmed? No - Other community support providers? Yes, IHBT from November to April Name: Germain Agency: [place] Location: [place] Next appointment confirmed? No - School contact? [...] brother, and 8yo paternal half sister in [place], [place]. - Other pertinent family members? Yes: bio mother AND maternal grandmother - Are there pertinent family stressors? No - Relevant caregiver issues (expectations of hospital stay, reason for admission, involvement in assessment)? No - Spiritual, cultural, or health barriers to recovery and treatment motivation are not present. Educational History - Currently in the 11th grade at [employer]. Cameron is in regular age appropriate classes [...] health focused residential instead of returning to [place]. They have spoken to the insurance and Denny and Ayad Daniels are in network. Parents would like team's input as to whether pt should return to [place] or go to other residential. PLAN: - animal care worker spoke with the patient's caregiver and [...] of SERVICE: 06/07/2020 TIME of SERVICE: 11:30 AMNormalLovell General Hospital 41-82-1025SEI Qn1.700 uU/mLNormal0.510-4.300[facility] CenterComment on above:Result Comment: Reference ranges were not locally established for this patient's age group. The normal values are based on the following source: Farrah W, Phil Vicente. Reference Ranges for Adults and Children: Pre-analytical Considerations. Jeison DiagnosticsPerformed By: #### CMP, CBCDIF, TSH, LIPB ####[facility] [place], [place] [phone]#### HBA1C ####[facility] [place], [place] [phone] 37-71-2365Rfohzawzp, UrineNegativeNormalNegativeFairohiohealth dublin methodist hospital HospitalComment on above:Performed By: #### UA ####[phone] (U)ClearNormalClearFairohiohealth dublin methodist hospital HospitalComment on above:Performed By: #### UA ####[place] [phone] (U)ColorlessCritically abnormalYellowSuccasunna Hospital Comment on above:Performed By: #### UA ####[place] [phone] COMMENTNormalWest [facility] Comment on above:Result Comment: Microscopic not warrantedPerformed By: #### UA ####[phone] Ql (U)NegativeNormalNegativeSuccasunna HospitalComment on above:Performed By: #### UA ####[place] [phone] Hemoglobin/Blood,UrNegativeNormalNegativeFarutland heights state hospital HospitalComment on above: Performed By: #### UA ####[phone] Ql (U)NegativeNormalNegativeSuccasunna HospitalComment on above:Performed By: #### UA ####[place] [phone]egativeFairview HospitalComment on above:Performed By: #### UA ####[place] [phone] Ql (U)NegativeNormalNegativeFarutland heights state hospital HospitalComment on above:Performed By: #### UA ####[place] [phone] (Bld)6.6Zcoszr7.0-8.0[facility] Comment on above:Performed By: #### UA ####[place] [address] [place], [place] [phone] (U) [Mass/Vol]NegativeNormal NegativeSuccasunna HospitalComment on above:Performed By: #### UA ####[address] [phone] [place], Ur 1.783Sacvmd7.005-1.030[facility] HospitalComment on above:Performed By: #### UA ####[place] [address] [place], [place] [phone] Urobilinogen Qn (U)NegativeNormalNegativeSuccasunna HospitalComment on above: Performed By: #### UA ####[place] [address] [place], [place] [phone] HEALTHon [id number] UC MEDICAL CENTERO ID: [id number] Author: America Bravo (Lsw) Service: ? Author Type: Counselor Type: Allied Health Filed: 06/06/2020 8:26 PM Note Text: Step 5: Documentation Risk Level : Suicide Risk ( Initial Screening):: High Risk Actual risk determined to be : High Clinical Observation: Depression, Anxiety and SI with a multiple plans Relevant Mental Status Evaluation: SI with multiple plans Methods of Suicide Risk Evaluation: Mineral AND Safe-T Brief Evaluation Summary: Warning Signs: [...] [facility] and was brought in by [facility] for evaluation. Communication of Current Risk Stratification to: Current Medical Providers: Ricki Vazquez Date 06/06/2020 Psychiatrist manager of loss prevention operations: Name: Dr. Durand Date: 06/06/2020 Time: 6:58pm Other Contact and Role: N/ANormalHillcrest HospitalED NOTEon [id number] NOTE HNO ID: [id number] Author: TAN Cardona (Pcna) Service: ? Author Type: Patient Care Inpatient Auditor Type: ED Notes Filed: 06/06/2020 8:30 PM Note Text: Pt used bathroom.[facility] HospitalED NOTEHNO ID: [id number] Author: TAN Cardona (Pcna) Service: ? Author Type: Patient Care Inpatient Auditor Type: ED Notes Filed: 06/06/2020 7:48 PM Note Text: Pt ate all of food.[facility] HospitalED NOTEHNO ID: [id number] Author: TAN Cardona (Pcna) Service: ? Author Type: Patient Care Inpatient Auditor Type: ED Notes Filed: 06/06/2020 7:42 PM Note Text: Pt given meal tray, pizza, fries, apple juice cup and Gatorade.[facility] HospitalED NOTEHNO ID: [id number] Author: TAN Cardona (Pcna) Service: ? Author Type: Patient Care Inpatient Auditor Type: ED Notes Filed: 06/06/2020 7:16 PM Note Text: Urine sent to lab.[facility] HospitalED NOTEHNO ID: [id number] Author: TAN Cardona (Pcna) Service: ? Author Type: Patient Care Inpatient Auditor Type: ED Notes Filed: 06/06/2020 7:15 PM Note Text: Urine obtained.[facility] HospitalED NOTEHNO ID: [id number] Author: Zara BeckhamRnShanique Enciso RN Service: ? Author Type: Registered Nurse Type: ED Notes Filed: 06/06/2020 6:57 PM Note Text: [facility] NOTEHNO [facility]: [id number] Author: Zara BeckhamRn) AGUILA Enciso Service: ? Author Type: Registered Nurse Type: ED Notes Filed: 06/06/2020 6:27 PM Note Text:NormalPiperton HospitalED NOTEHNO ID: [id number] Author: TAN Cardona (Pcna) Service: ? Author Type: Patient Care Inpatient Auditor Type: ED Notes Filed: 06/06/2020 6:17 PM Note Text: Pt on phone with [place] from intake.[facility] HospitalED NOTEHNO ID: [id number] Author: Crista BeckhamRn) AGUILA Bradshaw Service: ? Author Type: Registered Nurse Type: ED Notes Filed: 06/06/2020 6:02 PM Note Text: [facility] HospitalED NOTEHNO ID: [id number] Author: Zara BeckhamRn) AGUILA Enciso Service: ? Author Type: Registered Nurse Type: ED Notes Filed: 06/06/2020 5:48 PM Note Text: MD @ bedside.[facility] HospitalED NOTEHNO ID: [id number] Author: Crista BeckhamRn) AGUILA Bradshaw Service: ? Author Type: Registered Nurse Type: ED Notes Filed: 06/06/2020 5:48 PM Note Text: Verbal consent obtained by registration from step mother Noa Teresa via phone pt lives with her and pts biological father. Pts biological mother Dimple DaveyShriners Hospit[facility] HospitalED NOTEHNO ID: [id number] Author: Zara BeckhamRn) AGUILA Enciso Service: ? Author Type: Registered Nurse Type: ED Notes Filed: 06/06/2020 10:21 PM Note Text: Pt changed into gown. Clothing and shoes placed in bag and labeled. Placed at nurses' station. Camera on and back door locked.[facility] HospitalED NOTEHNO ID: [id number] Author: Benedict BeckhamRn) AGUILA Freeman Service: ? Author Type: Registered Nurse Type: ED Notes Filed: 06/06/2020 5:35 PM Note Text: Back room door locked.[facility] HospitalED NOTEHNO ID: [id number] Author: Benedict BeckhamRn) AGUILA Freeman Service: ? Author Type: Registered Nurse Type: ED Notes Filed: 06/06/2020 5:34 PM Note Text: Security at bedside to wand pt.[facility] HospitalED NOTEHNO ID: [id number] Author: Crista Bradshaw RN Service: ? Author Type: Registered Nurse Type: ED Notes Filed: 06/06/2020 5:29 PM Note Text: Bed: PED-12 Expected date: 06/06/20 Expected time: 5:12 PM Means of arrival: Latesha Urbina FD Comments: 14 y/o SI - [facility] HospitalED NOTEHNO ID: [id number] Author: Benedict (Rn) AGUILA Freeman Service: ? [...] overdose. 3- leave rehab and go to [facility] facility and jump off of ledge. Pt states that he has had this plan for awhile but pain becoming too much (emotional), states family problems, urges and trauma.[facility] HospitalED [facility] NOTEon [id number] [facility] NOTEHNO ID: [id number] Author: Ricki Vazquez MD Service: Emergency Medicine Author Type: Physician Type: ED Provider Notes Filed: 06/06/2020 9:55 PM Note Text: ED Provider Note Patient Name: Cameron Teresa SERVICE DATE: 06/06/20 History Patient presents with: Suicidal Ideation HPI 14-year-old male with anxiety and depression here with suicidal ideation. Patient reports that he has been at [facility], drug rehab program. He has not felt like it is helping him. He reports that his depression has been worsening. He has had thoughts of wanting to kill himself. He has 3 different plans (overdosing, jumping from bridge, getting hit in traffic) and reports that it would be easy to follow through with any of these as he is not supervised at [facility]. Reports he was addicted to meth [...] wound. Neurological: Negative for syncope and headaches. Psychiatric/Behavioral: Positive for dysphoric mood and suicidal ideas. [...] Labs Ordered and Reviewed URINE DRUG SCREEN (AK,AV,EU,FV,HL,RUDOLPH,MM,SP) EXPEDITED COVID19 Results for orders placed or performed during the hospital encounter of 06/06/20 URINE DRUG SCREEN (AK,AV,EU,FV,HL,RUDOLPH,MM,SP) Result Value Ref Range Phencyclidine Negative Negative Benzodiazepines Urine Negative Negative Cocaine Urine Negative Negative Amphetamines Negative Negative Cannabinoids, Urine Negative Negative Opiates Negative Negative Barbiturates Negative Negative Ethanol, Urine <11 <11 mg/dL Oxycodone, Urine Negative Negative EXPEDITED COVID19 Specimen: NASOPHARYNGEAL SWAB; Nasal Swab Result Value Ref Range COVID 19 Source 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 Negative for COVID19 (SARS CoV2) by PCR. Procedures ED Course / Clinical Impression Clinical Impressions as of Jun 06 2155 Depression, unspecified depression type COVID-19 ruled out by laboratory testing Anxiety COVID-19 test performed per [facility] [place] policy for suspected COVID community exposure. MDM / Disposition / Plan MDM 14-year-old male with anxiety, depression, substance abuse, currently in residential rehab program presenting with suicidal ideation. Patient has no medical complaints and denies any recent drug use. Vitals are age-appropriate and he is tolerating p.o. Rapid Covid and a urine drug (more content not included)...NormalHillcrest HospitalExpedited YOWUF43ku 34-11-1409YPNQ-CoV-2 (COVID-19) RNA JERRELL+probe Ql (Unsp spec)UPPER RESPIRATORY TRACT SWABNormalHillcrest GwpapdguVGQB-OnF-0 (COVID-19) RNA JERRELL+probe Ql (Unsp spec)NegativeNormalNegative for COVID19 (SARS CoV2) by PCR.Piperton HospitalComment on above:Result Comment: This test has been authorized by FDA under an Emergency Use Authorization (EUA).Toxicology Screen,Uron [id number], UrineNegativeNormalNegativeHillcrest HospitalComment on above:Result Comment: Cutoff threshold at 1000 ng/mL. Barbiturates, UrineNegativeNormalNegativeHillcrest HospitalComment on above: Result Comment: Cutoff threshold at 200 ng/mL.Benzodiazepines, UrNegativeNormal NegativeHillcrest HospitalComment on above:Result Comment: Cutoff threshold at 200 ng/mL.Cannabinoids, UrineNegativeNormalNegativeHillcrest HospitalComment on above:Result Comment: Cutoff threshold at 50 ng/mL.Cocaine, UrineNegativeNormal NegativeHillcrest HospitalComment on above:Result Comment: Cutoff threshold at 300 ng/mL.Ethanol, Urine<11Normal<11Hillcrest HospitalOpiates, UrineNegative NormalNegativeHillcrest HospitalComment on above:Result Comment: Cutoff threshold at 300 ng/mL.Oxycodone, UrineNegativeNormalNegativeHillcrest Hospital Comment on above:Result Comment: Cutoff threshold at 100 ng/mL. Comment: Immunoassay screen [...] on the same specimen through Client Services ([phone]) if contacted within 48 hours of initial testing. [1]Substance Abuse and Mental Health Services Administration (2012). Clinical Drug Testing in Primary Care Technical Assistance Publication Series 32. Department of Health and Human Services, [place], p.10.Phencyclidine, UrineNegative NormalNegativeHillcrest HospitalComment on above:Result Comment: Cutoff threshold at 25 ng/mL. Vital Signs Date TimeVital SignValuePerforming RhpdzmmtnZiaoapls40-07-7440 13:040Body vectsl254.12 cmDana [facility] Work Phone: [phone] [place], [place] [address]2010-10-2025 13:23-040 Body mass index (BMI) [Ratio]25.9 kg/m2Danicolette [facility] PACK WORKER SUPERVISOR Work Phone: [phone] [place], [place] [address]2010-10-2025 13:23040 Body ovvzzvtdyfv79.9 [degF]Nayla [facility] PACK WORKER SUPERVISOR Work Phone: [phone] [place], [place] [address]-10-2025 13:23040 Body ukoubv330.[address] [facility] Work Phone: [phone] [place], [place] [address]-10-2025 13:23-040 Diastolic blood tixuwluo98 mm[Hg]Nayla Easterwood PACK WORKER SUPERVISOR Work Phone: [phone]-[facility]10-10-2025 13:23-0400 Heart xsjp695 /Gabriele Kimerfort deposit PACK WORKER SUPERVISOR Work Phone: [phone] [place], [place] [address]-10-2025 13:23-0400 Respiratory rate18 /Gabriele [facility] PACK WORKER SUPERVISOR Work Phone: [phone] [place], [place] [address]-10-2025 13:23-0400 SaO2% (BldA) [Mass fraction]99 %Nayla [facility] PACK WORKER SUPERVISOR Work Phone: [phone]10-10-2025 13:23-0400 Systolic blood mm[Hg]Nayla Julioerwood PACK WORKER SUPERVISOR Work Phone: [phone] [place], [place] 7894109-30-2025 14:04-0400 Body .12 cmDana Julioerfort deposit PACK WORKER SUPERVISOR Work Phone: [phone] [place], [place] 7894109-30-2025 14:04-0400 Body mass index (BMI) [Ratio]25.4 kg/m2Dana [facility] PACK WORKER SUPERVISOR Work Phone: [phone]09-30-2025 14:04-0400 Body naxszizhfgs79.9 [degF]Nayla [facility] PACK WORKER SUPERVISOR Work Phone: [phone]09-30-2025 14:04-0400 Body oejhfz75.79 kgDana Julioerwood PACK WORKER SUPERVISOR Work Phone: [phone]09-30-2025 14:04-0400 Diastolic blood ozdpfnfw78 mm[Hg]Nayla Easterwood PACK WORKER SUPERVISOR Work Phone: [phone]09-30-2025 14:04-0400 Heart nsgc960 /Gabriele Kimerwood PACK WORKER SUPERVISOR Work Phone: [phone]09-30-2025 14:04-0400 Respiratory rate20 /Gabriele Easterwood PACK WORKER SUPERVISOR Work Phone: [facility]09-30-2025 14:04-0400 SaO2% (BldA) [Mass fraction]99 %Nayla Sunita PACK WORKER SUPERVISOR Work Phone: [facility]09-30-2025 14:04-0400 Systolic blood wyoijrti760 mm[Hg]Nayla Julioerwood PACK WORKER SUPERVISOR Work Phone: [facility]01-21-2025 15:08-0500 Body .12 cmSal[facility]01-21-2025 15:08-0500Body mass index (BMI) [Ratio]21.5 kg/v1NcvczbehdSalem Regional Medical Center01-21-2025 15:08-0500Body laqmeqqrrnt15.4 [degF][facility]01-21-2025 15:08-0500Body qqjunj15.53 kgSalem Regional Medical Center01-21-2025 15:08-0500Diastolic blood ikgkunnc21 mm[Hg][facility] 07-17-2024 15:08-0500Heart mrjh988 /[facility] 07-17-2024 15:08-0500Respiratory rate19 /[facility] 07-17-2024 15:08-3545XuV0% (BldA) [Mass fraction]95 %[facility]01-21-2025 15:08-0500Systolic blood gkqrytsx680 mm[Hg][facility]05-20-2024 03:30-0400Diastolic blood kfpkyabe95 mm[Hg]PACK WORKER SUPERVISOR Nayla Kimerangel Work Phone: [facility]05-20-2024 03:30-0400 Heart umto420 /minAPRN Nayla [facility] Work Phone: [facility]05-20-2024 03:30-0400 Respiratory rate18 /minAPRN Nayla Julioerwood Work Phone: [facility]05-20-2024 03:30-0400 SaO2% (BldA) [Mass fraction]98 %PACK WORKER SUPERVISOR Nayla Easterwood Work Phone: [facility]05-20-2024 03:30-0400 Systolic blood mm[Hg]ALECIA Dorsey Work Phone: [phone]-[facility]05-20-2024 02:12-0400 Body xyvtzm629.12 cmAPRJack [facility] Work Phone: [phone] [place], [place] [address]-20-2024 02:12-0400 Body .6 [degF]ALECIA Winslow [facility] Work Phone: [phone]05-20-2024 02:12-0400 Body odhbjv59.9 kgAPRJack [facility] Work Phone: [phone]09-11-2023 16:51-0400 Blood Pressure LocationJamie Manuel [phone]-QvyrcThe [facility] Ukey62-42-5273 16:51-0400Body svilpxplxpo98.6 [degF]eKnroy Jackson 747-0925Lqvnvm-GhkmuThe [facility] Hipg87-60-7000 16:30-1291rcnprrqzvrpok-3.18Andremie Manuel [phone]-CsnfiThe [facility] Hospital Convenient CareComment on above:Result Comment: ^~:!ZScore Source -[id number] 16:51-0400Diastolic blood mm[Hg]Kenroy Jackson 430-7400Weohcp-AzwcyThe [facility] Ngzh66-89-7770 16:51-0400Heart rate91 /minJamie Manuel 507-2186[place]-OgpofThe [facility] Kxis59-87-6903 16:51-0400Height/Length Ykxhwptwlt15.87Jamie [employer] [phone]-AantkThe Christ Hospital Convenient CareComment on above:Result Comment: ^~:!Percentile Source -[id number] 16:51-0400 Height/Length Z-Score3.01Kenroy Jackson [phone]-OymxbThe Christ Hospital Convenient CareComment on above:Result Comment: ^~:!ZScore [place] [address]-11-2023 16:51-6126OuH7% (BldA) [Mass fraction]99 %Kenroy Jackson 406-7916Cvowhz-NvtxeThe [facility] Qoan19-56-5405 16:51-0400Systolic blood bguwtubh130 mm[Hg]Kenroy Jackson 668-5235Impgnh-CwqbdThe [facility] Zvfn82-84-9801 16:51-0400Weight Yepbapqoua05.21 %Kenroy Jackson 266-1523Vmrvdg-MvsfeThe [facility] Hospital Convenient CareComment on above:Result Comment: ^~:!Percentile [facility] YorkANQ76-91-7072 16:51-0400Weight Z-Score1.24Kenroy Jackson [phone]-PtsstThe [facility] Hospital Convenient CareComment on above:Result Comment: ^~:!ZScore [facility] YorkNHI58-71-1412 11:04-0400Body height 198.12 cmPHYSICIAN [facility]09-03-2023 11:04-0400Body kcjtxphmgyb29.6 [degF]PHYSICIAN [facility]09-03-2023 11:04-0400Body gpouib79 kgPHYSICIAN [facility]09-03-2023 11:04-0400Diastolic blood twjsulyu15 mm[Hg] PHYSICIAN [facility]09-03-2023 11:04-0400Heart jdey685 /minPHYSICIAN [facility]09-03-2023 11:04-0400Respiratory rate18 /minPHYSICIAN [facility]09-03-2023 11:04-7069RbX7% (BldA) [Mass fraction]97 %PHYSICIAN [facility]09-03-2023 11:04-0400Systolic blood uidloffm505 mm[Hg]PHYSICIAN [facility]08-20-2023 10:50-0400 Body pohffzzlejh54.4 [degF]Nazario Babatunde Other [employer]ect Other 08-20-2023 10:50-0400Body gjwivb73.18 kgThomas Babatunde Other [employer]Cont[employer] Other 08-20-2023 10:50-0400Diastolic blood cdxpflyi51 mm[Hg] Nazario Babatunde Other [employer] Other 08-20-2023 10:50-0400Respiratory rate18 /minThomas Babatunde Other [employer] Other 08-20-2023 10:50-9613VwC2% (BldA) [Mass fraction]98 % Nazario Fine Other [employer] Other 08-20-2023 10:50-0400Systolic blood mm[Hg] Nazario Fine Other [employer] Other 08-13-2023 10:30-0400Body rtijyo967.12 Marcos Lacey Other [employer] Other 08-13-2023 10:30-0400Body mass index (BMI) [Ratio] 21.95 kg/i2LgpizAna Laura Lacey Other [employer] [place] Other 08-13-2023 10:30-0400Body nbbbyzgpmtw17.3 [degF]Ana Laura Lacey Other [employer] [place] Other 08-13-2023 10:30-0400Body jditod85.18 kgBarbaraelen Lacey Other [employer]ect Other 08-13-2023 10:30-0400Diastolic blood lnipbpci81 mm[Hg] Ana Laura Lacey Other [employer] [place] Other 08-13-2023 10:30-0400Respiratory rate18 /minAmbelen Lacey Other [employer] Other 08-13-2023 10:30-8413BrR6% (BldA) [Mass fraction]97 % Ana Laura Lacey Other [employer] Other 08-13-2023 10:30-0400Systolic blood afccdyst177 mm[Hg] Ana Laura Lacey Other [employer] Other 04-29-2023 12:57-0400Body ircbqhhwtpo54.4 [degF] PHYSICIAN [facility]04-29-2023 12:57-0400 Diastolic blood hfskyata72 mm[Hg]PHYSICIAN [facility]04-29-2023 12:57-0400Heart rate89 /minPHYSICIAN [facility]04-29-2023 12:57-0400Respiratory rate16 /minPHYSICIAN [facility]04-29-2023 12:57-1271VbS1% (BldA) [Mass fraction]98 %PHYSICIAN [facility]04-29-2023 12:57-0400Systolic blood rtyhdwsz139 mm[Hg]PHYSICIAN [facility]04-29-2023 06:00-0400Body .8 kgPHYSICIAN [facility]04-27-2023 22:30-0400Body znabmg806.12 cm PHYSICIAN NO [facility] Ediwuv84-70-7993 20:26-0400 Diastolic blood elddatvz64 mm[Hg]PHYSICIAN [facility]04-27-2023 20:26-0400Heart rate82 /minPHYSICIAN [facility]04-27-2023 20:26-0400Respiratory rate16 /minPHYSICIAN [facility]04-27-2023 20:26-4178ApN9% (BldA) [Mass fraction]100 %PHYSICIAN [facility]04-27-2023 20:26-0400Systolic blood mm[Hg]PHYSICIAN [facility]04-27-2023 18:12-0400Body .12 cmPHYSICIAN [facility]04-27-2023 18:12-0400Body oqytyu87.27 kg PHYSICIAN [facility]04-27-2023 18:10-0400Body erzcvzaultr45.9 [degF]PHYSICIAN [facility] 10-13-2022 15:35-0400Body ucxrue578.12 cmPHYSICIAN [facility]04-19-2023 15:35-0400Body sqruecnbomz15.9 [degF]PHYSICIAN [facility]04-19-2023 15:35-0400Body tmdufv16.35 kg PHYSICIAN [facility]04-19-2023 15:35-0400 Diastolic blood iqylmyvf98 mm[Hg]PHYSICIAN [facility]04-19-2023 15:35-0400Heart rate83 /minPHYSICIAN [facility]04-19-2023 15:35-0400Respiratory rate14 /minPHYSICIAN [facility]04-19-2023 15:35-2645UwP1% (BldA) [Mass fraction]100 %PHYSICIAN [facility]04-19-2023 15:35-0400Systolic blood ukjdfyqz554 mm[Hg]PHYSICIAN NO [facility]04-03-2023 14:45-0400Body ededrt745.12 cmPHYSICIAN NO [facility]04-03-2023 14:45-0400Body jqnusrjoycz64.9 [degF]PHYSICIAN NO [facility]04-03-2023 14:45-0400 Body .3 kgPHYSICIAN NO [facility]04-03-2023 14:45-0400Diastolic blood penjdyru42 mm[Hg]PHYSICIAN NO [facility]04-03-2023 14:45-0400Heart rate94 /minPHYSICIAN NO [facility]04-03-2023 14:45-0400Respiratory rate16 /min PHYSICIAN NO [facility]04-03-2023 14:45-5981VxP7% (BldA) [Mass fraction]98 %PHYSICIAN [facility] 09-27-2022 14:45-0400Systolic blood mm[Hg]PHYSICIAN NO [facility]02-06-2023 20:13-0500Body hehscb805.96 cmMD Clari Owen MD lEdenbrook LimitedRihroebeoo74-33-7035 20:13-0500Body pgbyex57 kgMD Clari Owen MD LEdenbrook LimitedOouswouchv91-41-8900 16:28-0400Body jsddic783.58 cm MD Deo Hamm MD lEdenbrook LimitedWzqwmylayy40-13-2488 16:28-0400Body mass index (BMI) [Ratio]20.9 kg/m2MD Deo Hamm MD lEdenbrook LimitedPaydlctknf61-55-9100 16:28-0400Body kgMD Deo Hamm MD lEdenbrook LimitedTymdlbqfxw64-50-0303 14:21-0400Body axrlrp490.12 cm Linnea Zapata Work Phone: [phone]-LyfraaiH[facility] Work Phone: [phone] 618-970705-12-2022 14:21-0400Body mass index (BMI) [Ratio] 22.07 kg/s6Nyrmnx Adele Iliano Work Phone: [phone]-Fqqytyu [facility] Work Phone: [phone] 14:21-0400Body surface area Derived from formula2.21 z0Qhovhb B Iliano Work Phone: [phone]-Fijwjvs [facility] Work Phone: [phone] 14:21-0400Body krtenr23.64 kgLinnea Angulo Iliano Work Phone: XT-Mcwvxes [facility] Work Phone: [phone] 14:21-0400Diastolic blood elldcvxi59 mm[Hg] Linnea Angulo Iliano Work Phone: [phone]-Xkvkeyl [facility] Work Phone: [phone] 14:21-0400Heart jxqb839 /minLinnea Angulo Iliano Work Phone: [phone]-Scrkcfz [facility] Work Phone: [phone] 14:7963NdH9% (BldA) [Mass fraction]98 % Linnea Angulo Iliano Work Phone: [phone]-Ymlqpto [facility] Work Phone: [phone] 14:040Systolic blood mzaewirk093 mm[Hg] Linnea B Iliano Work Phone: [phone]-Zgbghdv [facility] Work Phone: [phone] 14: 1Amanda B Iliano Work Phone: [phone]-Joqqeew [facility] Work Phone: [phone] on above:0-84_UJlxx76-09-2022 14: 1 Linnea B Iliano Work Phone: [phone]-Npzaekc [facility] Work Phone: [phone] on above:3-30_OEyii90-62-2022 14:050 1 Linnea B Iliano Work Phone: [phone]-Foeeefw [facility] Work Phone: comment on above:VUWJimn31-43-5152 14:19-0400Body .12 cmAmanda B Iliano Work Phone: [phone]-Jebtibq [facility] Work Phone: [phone] 14:-215152 1Amanda B Iliano Work Phone: [phone]-Lopwryb [facility] Work Phone: comment on above:4-78_TDgdj63-18-2021 02:18-0400BMI (Body Mass Index)20.9 kg/m5Hzysplm [facility] 03-30-2021 02:18-0400Body ktgqia92 kgStepfirst hospital [facility] [facility] Encounters Encounter DateEncounter TypeCare ProviderFacilityStart: 04-05-2025 End: 91-07-7109nwostdmicvFiyh J Easterwood [facility] Work Phone: [facility] Work Phone: Start: 04-05-2025 End: 93-96-1398Xqtrqqb encounter procedurePatricema Nieves [facility] Work Phone: Start: 69-78-7479Cmc-patient / Non-visitDanicolette Dorsey PACK WORKER SUPERVISOR-[facility] Work Phone: Start: 03-26-2025 End: 84-08-5511fpvzyokfzsXmvr J Easterwood PACK WORKER SUPERVISOR Work Phone: [facility] Work Phone: Start: 03-26-2025 End: 00-46-1041Hoifsgl encounter procedureDanicolette Dorsey [facility] Work Phone: Start: 07-17-2024 End: 91-75-7063fwrkpysslmXrahihlywBrecksville [facility] Work Phone: Start: 07-17-2024 End: 34-03-1408Zayayqe encounter procedureSt. [facility] GroupGRE[facility] Work Phone: Start: 05-28-2024 End: 11-41-2420Sucnfbuhp encounterBoom Kauffman PT Work Phone: [facility] PTComment on above:PT Referral / Verification (Tried to contact to verify coverage and offer scheduling PT Eval, angelina.); fu (Contacted and informed receiving PT referral; [...] chosen to go thru Pain Management.) Start: 43-55-2200Zyl-patient / Non-visitFirvcu health community [facility] Physician GroupMer[facility] Work Phone: Start: 96-92-3346Kmu-patient / Non-visitSt. Luke'S [facility] Work Phone: Start: 88-29-7357Tcu-patient / Non-visitFirlos angeless Physician GroupGarfield [facility] Work Phone: Start: 05-01-2024 End: 09-05-9797pnzwngdlxoDhfxcwxrrUniversity [facility]als [facility] Work Phone: Start: 05-01-2024 End: 04-34-2131Moydvyt encounter procedureSt. [facility]ician [facility] Work Phone: Start: 03-20-2024 End: 17-17-4837baqirrsphiGiuhcvcadUniversity Hospitals [facility] Center Work Phone: Start: 03-20-2024 End: 75-97-8644Hpkpwqp encounter procedureSt. [facility]ician [facility] Work Phone: Start: 86-66-2847Onj-patient / Non-visitFirbirds Physician Group-[facility] Work Phone: Start: 11-14-2023 End: 40-15-5593Myverdfow department patient visitAPRJack [facility] Work Phone: [facility] Work Phone: Start: 10-31-2023 End: 27-65-2561oxjzhzevziDfgsptwtdBrecksville [facility] Work Phone: Start: 10-31-2023 End: 75-65-5301Ynnhftw encounter procedureFirbirds Physician Group-[facility] [place] Work Phone: Start: 10-28-2023 End: 05-30-0361Mudubwtow department patient visitProOhioHealth Shelby Hospitaltart: 10-06-2023 End: 61-50-2221nixftksqsiHuhshzxtbBrecksville [facility] Work Phone: Start: 10-06-2023 End: 92-68-5586Ctwvsrt encounter procedureFirbirds Physician Group-[facility] [place] Work Phone: Start: 09-22-2023 End: 72-32-8302elmrvkhrkxZaawkzupqBrecksville [facility] Work Phone: Start: 09-22-2023 End: 79-96-0544Ryjdkoj encounter procedureFirlos angeless Physician Group-[facility] [place] Work Phone: Start: 05-24-2023 End: 58-39-1772feegwarxcoVvzd Easterwood Other [facility] [employer] Other Start: 83-52-4253Bkxfdcyzv encounterDana [facility] Hospitaltart: 05-17-2023 End: 18-35-4255fhcqwmrsrxOOFEBFGTW NO [facility] Work Phone: Start: 05-17-2023 End: 23-11-4041Fjuzxsa encounter procedurePHYSICIAN NO [facility] [place] Work Phone: Start: 05-16-2023 End: 59-27-7685vzuazimenwVgmj Easterwood Other [employer] [place] Other Start: 18-97-3003Lmumspqak encounterDana [facility]: 04-21-2023 End: 2003illzfpdixsSazp [place] Other noContraFect Other Start: 05-61-7168Isidaoyta encounterDana [facility]: 74-36-2482Vwzrdgstj encounterDana [facility]: 04-04-2023 End: 88-35-7759zhkdqhlhcqXXCTLDYWH ORTIMiss[facility] [employer] Other Start: 04-01-2023 End: 87-94-8539nupgntknpwOwpn [place] Other [place] [place] Other Start: 37-64-6920Baudyilru encounterDana [facility]: 03-29-2023 End: 97-67-0553sjmenbnbniAqqh [place] Other noContraFect Other Start: 36-07-2086Qnkshpmkv encounterDana [facility]: 03-22-2023 End: 66-62-8544bhjigeelpvBqzf [place] Other noContraFect Other Start: 82-94-6522Alyzvwtua encounterDana EasterwoodFPG Referral CoordinatorStart: 03-07-2023 End: 53-68-6152bsssumgawsYoqrp M. DempseyFacility:CC [facility]: 03-07-2023 End: 10-06-7702Wikqkxa encounter procedureKenroy Jackson [phone]-HacyaThe [facility] Start: 02-27-2023 End: 24-58-8680Lpdwfmacy department patient visitPHYSICIAN [facility] Work Phone: Start: 02-21-2023 End: 01-36-5456rcuunylgyuHzzz [facility] Other [employer] Other Start: 48-32-7805Fuwtcjtfm encounterDana Nattyfort depositALEJANDRINAValley Plaza Doctors Hospitaltart: 02-13-2023 End: 51-37-0349frfpnfpnupWxhwiv Babatunde Other noBel[employer] Other Start: 09-18-2615Gmrbqc outpatient visit 15 minutes Nazario [facility] [address]Start: 02-10-2023 End: 82-05-5740hlfijfiehzLofwc Keller Other noBel[employer] Other Start: 19-49-8329Znlybtsoy encounterAmber RichlerFPG [facility] Dannebrog RoadStart: 45-76-0564Puvxvl outpatient new 30 minutesAmber AbhijitFPG [facility] Dannebrog RoadStart: 02-06-2023 End: 63-58-4805dilckqiiwzNzcyq Keller Other noContraFect Other Start: 02-06-2023 End: 36-92-0259Ennmirsx ReferredAPRN Ana Laura Lacey Work Phone: [facility] [place] Work Phone: start: 04-26-7671dpvbwifznkEq. Linnea Zapata Facility:[id number]: 10-21-2022 End: 02-59-4800Patnptnurk and management of inpatientPHYSICIAN NO [facility] [place] [facility] Work Phone: Start: 10-13-2022 End: 77-98-3999Dmrmaylid department patient visitPHYSICIAN NO [facility] Work Phone: Start: 10-13-2022 End: 17-40-4704Quavafi encounter procedurePHYSICIAN NO [facility] [place] Work Phone: Start: 09-27-2022 End: 14-22-5992Rcqiaqagu department patient visitPHYSICIAN NO [facility] Work Phone: Start: 08-02-2022 End: 93-84-0013zsadpuamxbNGGCK PCPFacility:UNKNOWNStart: 04-25-2022 End: 10-39-8173dqhvfeexriZHVOM PCPFacility:UNKNOWNStart: 24-24-9491CCKZCTfqkjc B [facility] Work Phone: [phone]-Bgtwzgx Primary Care Work Phone: start: 81-55-0076Hdaqunh tobacco non-user cad cap copd pv dmAmanda B Iliano Work Phone: [phone]-Cgnurwn Primary Care Work Phone: start: 96-87-6751nizmlmeuwcCc. Linnea Zapata Facility:[id number]: 10-29-2020 End: 95-93-8650dakmvabnwtWFOQIAdams County Hospitaltart: 14-45-9731Edphetxsu for routine child health examination without abnormal findingsDiley Ridge Medical Centertart: 10-24-2020 End: 16-62-5528klmeimjdtzCHSGMPO SAYRASOUTHERN KENTUCKY REHABILITATION HOSPITALradhaHCA Florida West Hospitaltart: 72-04-7503Ajbzzbe encounter procedureUNKNOWN PROVIDERFacility:METROHealthPatient encounter procedureAmanda B Iliano Work Phone: [phone]-Lsnijfy Primary Care Work Phone: MD Clari Owen MD l Procedures DateProcedureProcedure DetailPerforming ClinicianStart: 02-06-2023 End: 28-98-2832Dvtaba culturePHYSICIAN NO FAMILYStart: 75-69-0444LW of head without contrastPHYSICIAN NO FAMILY Plan of Treatment DateCare ActivityDetailAuthorStart: 51-30-9347Juhfrbh [facility] Work Phone: Start: 60-21-8502Occce chest X-rayXR chest 1V portable [facility]htart: 03-54-9184VZ Chest Single viewSelect Medical Specialty Hospital [facility] Southtart: 56-25-8218Fwfizxo [facility] Work Phone: Start: 32-81-9582Gwefva cultureThroat [facility]tart: 54-04-1071LfocnfegxSelect [facility]htart: 54-13-2173Euaoxczh to cardiologistSelect Medical Specialty [facility] Southtart: 02-15-9546Montxpivjhavx metabolic 2000 panel - Serum or PlasmaSelect [facility] Specialty [facility] Southtart: 10-22-2022 End: 30-34-9049WojkjwruiSelect Medical Specialty [facility]htart: 62-38-5851Huxtpqds admissionSelect Medical Specialty [facility] Southtart: 85-36-0309Whrwwbzi to psychiatristSelect [facility]ty [facility] Southtart: 14-05-0131QjqjjveibSalem Regional Medical CenterBacteria identified in Throat by Aerobe cultureSalem Regional Medical CenterEKG 12 channel panelSalem Regional Medical CenterPatient EducationScci Hospital [facility] Work Phone: [facility] referralGenesis [facility] Work Phone: XR Lumbar spine GE 4 ViewsSalem Regional Medical CenterXR Thoracic spine 3 [facility] Immunizations Immunization DateImmunizationNotesCare EbnstdnpYusasuvp57-52-5568Uyzqvh-LdsZIweo COVID-19 Vacc 30 MCG/0.3ML Intramuscular SuspensionAmanda B Iliano Work Phone: [phone]-PujfxThe [facility] Krcs00-33-9447 influenza virus vaccine, unspecified formulationJamie Manuel [phone]-FfgxdThe [facility] Bvko88-59-0511 influenza, injectable, quadrivalent, preservative freeAmanda B Iliivan Work Phone: [facility]12-14-2021Pfizer- Sprio COVID-19 Vacc 30 MCG/0.3ML Intramuscular SuspensionAmanda B Iliano Work Phone: [phone]-MobyhThe [facility] Iwal76-36-8097 meningococcal ACWY vaccine, unspecified formulationJamie [employer] [phone]-ZvdwsThe [facility] Fmlj94-15-9001 meningococcal oligosaccharide (groups A, C, Y and W-135) diphtheria toxoid conjugate vaccine (MCV4O)Linnea Adele Zapata Work Phone: [facility]02-22-2019HPV, unspecified formulationJamie Manuel [phone]-NtvslThe [facility] Rlni16-12-9496 Human Papillomavirus 9-valent vaccineAmanda B Iliivan Work Phone: [facility]09-11-2018HPV, unspecified formulationJamie Manuel [phone]-NztulThe [facility] Belg82-93-9300 Human Papillomavirus 9-valent vaccineAmanda B Iliivan Work Phone: [facility]06-28-2016Hep A, unspecified formulationJamie Manuel [phone]-RjbuaThe [facility] Rixe60-90-4875 hepatitis A vaccine, unspecified formulationDana Easterwood PACK WORKER SUPERVISOR Work Phone: [facility]06-28-2016 meningococcal ACWY vaccine, unspecified formulationJajesusalec Jackson [phone]-YgdraThe [facility] Tvjb78-77-4185 meningococcal polysaccharide (groups A, C, Y and W-135) diphtheria toxoid conjugate vaccine (MCV4P); Translations: [Menactra Intramuscular Injectable] [facility] HospitalComment on above:Series:12-23-2015 hepatitis A vaccine, pediatric/adolescent dosage, 2 dose schedule; Translations: [Hepatitis A, Ped/Adol][facility] Work Phone: comment on above:Series:28-66-3660ollehuqvz A vaccine, unspecified formulationBaptist Health Boca [facility]aton Regional Hospitalalec [facility] [phone]-ZcshuThe [facility] Euob17-22-3938 hepatitis A vaccine, pediatric/adolescent dosage, 2 dose schedule; Translations: [Hepatitis A, Ped/Adol][facility] HospitalComment on above:Series:72-05-1718dresoau toxoid, reduced diphtheria toxoid, and acellular pertussis vaccine, adsorbed; Translations:[Tdap][facility] CareComment on above:Series:57-31-0227atzksbgrm virus vaccine, unspecified formulationAmanda B Iliano Work Phone: [phone]-UjehbThe [facility]venient CareComment on above:Series:47-90-5089hvmxtihqv, seasonal, injectableRandal [facility] Work Phone: [phone]m virus vaccine, unspecified formulationJamie Manuel [phone]-NldowThe [facility] Upvz86-55-8223 influenza, seasonal, injectableAmanda B Iliano Work Phone: [phone]-IcgleztHancock County Health System Work Phone: [phone]p virus vaccine, unspecified formulationJamie Manuel [phone]-EdknjThe [facility] Hkll29-54-4528 influenza, seasonal, injectableAmanda B Iliano Work Phone: [phone]-Opvktod Primary [facility] Work Phone: [phone] virus vaccine, H1N1, liveJamie Manuel [phone]-YwjazThe [facility] Pcow96-96-2863 influenza virus vaccine, unspecified formulationJamie Manuel [phone]-XqrssThe [facility] Wtjl80-23-8397 influenza, seasonal, injectableAmanda B Iliano Work Phone: [phone]-HcvwtlfHancock County Health System Work Phone: [phone] Ldxcmiyrr-W4S1-33, live virus for nasal administrationAmanda B Iliano Work Phone: [facility]09-29-2009diphtheria, tetanus toxoids and acellular pertussis vaccineJamie [facility] [phone]-AreydThe [facility] Gyzy31-94-2508 diphtheria, tetanus toxoids and acellular pertussis vaccine, 5 pertussis antigensRanPeaceHealth Southwest Medical Center [facility] Work Phone: comment on above:Series:97-38-3889ozvhdtwkpu vaccine, inactivatedRandal [facility] Work Phone: comment on above:Series:33-33-2936lbiziydnm virus vaccineHolzer Hospital Convenient CareComment on above: Series:35-20-2504pebrmklbty vaccine, inactivatedDana [facility] PACK WORKER SUPERVISOR Work Phone: [facility]09-26-2009poliovirus vaccine, unspecified formulationJamie Manuel [phone]-QgdyeThe [facility] Gbvo98-77-1350 influenza virus vaccine, unspecified formulationAmanda B Iliano Work Phone: [phone]-EyhnrThe [facility]venient CareComment on above:Series:38-72-2990tmncotuql, seasonal, injectableRandal HuffMP-Univ [facility] Work Phone: [phone], mumps and rubella virus vaccine JaxsonAdena Regional Medical Center Convenient CareComment on above:Series: 36-07-3767qgihdmysz virus vaccine, unspecified formulationAmanda B Iliano Work Phone: [phone]-CqliiThe [facility] Hospital [facility] CareComment on above:Series:34-33-3443shgoycjux, seasonal, injectableRandal [facility] Work Phone: [phone] virus vaccine, unspecified formulationRunnells Specialized Hospitalda [facility] Work Phone: [phone]-GmnzmThe [facility] CareComment on above:Series:57-95-7052yizlykwyd, seasonal, injectableRandal [facility] Work Phone: [phone]u vaccine, inactivatedRanMercy HealthComment on above:Series:73-57-3432dmgcosomam vaccine, unspecified formulationJamie [facility] [phone]-QxjgcThe [facility] Susv47-33-7744 diphtheria, tetanus toxoids and acellular pertussis vaccine, unspecified formulationAmanda B Iliano Work Phone: [facility]05-23-2005DTaP, unspecified formulationJamie [facility] [phone]-DsxvvThe [facility] Fnqr39-42-2798 haemophilus influenzae type b vaccine, PRP-OMP conjugateRanPeaceHealth Southwest Medical Center [facility] Work Phone: comment on above:Series:18-32-5247wtuyfdhvcuqg conjugate vaccine, 7 valentRandal [facility] Children's HospitalComment on above:Series:31-11-8923ojtvizsfklu influenzae type b vaccine, conjugate unspecified formulationAmanda B Iliano Work Phone: [facility]05-13-2005Hib, unspecified formulationJamie Manuel [phone]-EuzkrThe [facility] Agsf51-54-8251 diphtheria, tetanus toxoids and acellular pertussis vaccine, 5 pertussis antigensRandal [facility] Work Phone: comment on above:Series:59-17-5557daiblfmmdk, tetanus toxoids and acellular pertussis vaccineJamie Manuel [phone]-GgxhrThe [facility] Lrkd99-65-8179 measles, mumps and rubella virus vaccineHolzer Hospital Convenient CareComment on above:Series:64-95-0533eepfvyxzw virus vaccineRanSumma Health Convenient CareComment on above:Series: 10-78-9797sgtmwzyhp B vaccine, adult dosageRandal [facility] Work Phone: comment on above:Series:16-37-8676pcybandij B vaccine, pediatric or pediatric/adolescent dosageJamie Manuel [phone]-HwoloThe [facility] Ouwi17-34-5351 diphtheria, tetanus toxoids and acellular pertussis vaccineJamie Manuel [phone]-JfxetThe [facility] Lqjj31-54-1171 diphtheria, tetanus toxoids and acellular pertussis vaccine, 5 pertussis antigensRandal [facility] Work Phone: comment on above:Series:59-98-5586dtebohfaxbc influenzae type b vaccine, PRP-OMP conjugateRandal [facility] Work Phone: comment on above:Series:13-45-4765twpopoyafzlz conjugate vaccine, 7 valThe Christ HospitalComment on above:Series:89-16-6144yuqkctzhev, tetanus toxoids and acellular pertussis vaccineJamie Manuel [phone]-KelvdThe [facility] Lwiy42-82-7556 diphtheria, tetanus toxoids and acellular pertussis vaccine, 5 pertussis antigensRandal HuffMP-Univ [facility] Work Phone: comment on above:Series:67-02-4392bwnaksiybgg influenzae type b vaccine, PRP-OMP conjugateRandal HuffMP-Univ [facility] Work Phone: comment on above:Series:74-40-2115ounjmxlkhaxc conjugate vaccine, 7 valThe Christ HospitalComment on above:Series:51-94-1049rpvuubgiyv vaccine, inactivatedHolzer HospitalComment on above:Series:21-47-9552mjrmopnpwf vaccine, unspecified formulationJamie Manuel [phone]-ZfyukThe [facility] Eiug67-53-7677 diphtheria, tetanus toxoids and acellular pertussis vaccineJamie Manuel [phone]-CdsefThe [facility] Oeah09-50-5497 diphtheria, tetanus toxoids and acellular pertussis vaccine, 5 pertussis antigensRandal ffMP-Univ [facility] Work Phone: comment on above:Series:58-10-1890jvmrpzamfiv influenzae type b vaccine, PRP-OMP conjugateRandal HuffMP-[facility] Work Phone: comment on above:Series:13-75-1143vlfvkeulv B vaccine, adult dosageRandal HuffMP-Univ [facility] Work Phone: comment on above:Series:85-30-7180bkrhsivlr B vaccine, pediatric or pediatric/adolescent dosageJamie Manuel [phone]-VbodlThe [facility] Bdci04-66-9364 pneumococcal conjugate vaccine, 7 valentRandal [facility] HospitalComment on above:Series:44-82-9342btklavbinn vaccine, inactivatedRandal [facility] HospitalComment on above:Series:2003 poliovirus vaccine, unspecified formulationJamie Manuel [phone]-PklcqThe [facility] Myyk20-77-4860 hepatitis B vaccine, adult dosageRandal [facility] Work Phone: comment on above:Series:66-68-5040skgtzljqr B vaccine, pediatric or pediatric/adolescent dosageJamie Manuel [phone]-SivukThe [facility] Care Payers DatePayer CategoryPayerPolicy [id number] [id number] 2020Blue Cross Blue [id number] [id number] 2004Unknown [id number] 2..[id number] ..1.870272.3.57[id number] 2.0.1.984473.3.57[id number] ..1.754157.3.57[id number] 2.0.1.275603.3.57[id number] 2.0.1.449114.3.57[id number] 2.16840.1.195582.3.57[id number] 2.16.840.1.476723.3.57[id number] 2.16.840.1.4[id number] 2.16840.1.647452.3.579.2.651Unknown [id number] 2.16.840.1.423342.3.579.2.651UnknownPARAMOUNT INSURANCE COMPANY MEDICAID [id number] Social History DateTypeDetailFacilityStart: 09-23-2020 End: 55-42-2953Yid [facility] Lives with grandparent(s)Lives with grandparent(s)[facility] Primary [facility] Work Phone: l EnterpriseStart: 69-81-7267Kqmodlh smoking status NHISNever smoked tobacco (finding)[facility]: 92-50-4649Exz Assigned At BirthMalMetroHealth Cleveland Heights Medical Centertart: 10-21-2022 End: 70-52-0592Elnfjfv smoking status NHISSmoker (finding)[facility] CenterTobaccoCurrent vaping or e-cigarette use Smokeless Tobacco Use:. VapingThe [facility] Tobacco smoking statusNo Smoking Status EnteredBarney Children'S [facility] Start: 81-39-8684Sdw assigned at birthNot on [facility] HospitalStart: 77-83-6437OgfHkrl (finding)[facility] Start: 03-26-2025 End: 44-14-7252Bifdzdv smoking status NHISSmokes tobacco daily (finding) [facility] CenterNEGATED: Highlighted row---[facility] [place] [facility] Work Phone: Goals DatePatient GoalDesired Activity/State Functional Status GgftMakzriwxjdRubyqbTjpaddbc12-65-2882Sfrclpjzlr StatusN/AFisher-[facility] Frau22-49-8570Inyuofwupj statusPatient at BaselineSumma Health [facility] Campus Work Phone: NEGATED: Highlighted rowFunctional performance Functional status health issues are not documented Disease-[facility] [place] [facility] Work Phone: Mental Status OyyeGcqifkuyjsJlkepsQzedzxbm43-58-1614Ltmjsssek functionCognitive Status Patient at BaselineSumma Health [facility] Campus Work Phone: NEGATED: Highlighted rowCognitive function [Interpretation]Cognitive status health issues are not documented Disease-[facility] Work Phone: Clinical Notes 05-15-2021 to 03-26-2025 Note Date & CdbuMqzzBpsfjccv38-51-0377 Evaluation note* Diagnosis Onset Date Resolution Status Admit Date Acid reflux acuteSeptember 2024 1:59pmChest painacuteSeptember 2024 1:59pm ConstipationacuteSeptember 2024 1:59pmMethamphetamine abuseacuteSeptember 2024 1:59pmPTSD (post-traumatic stress disorder)acuteSeptember 2024 1:59pmPink eyeacuteOctober 2024 1:21pm [facility] Work Phone: 1(663) 809-977312-02-2024 Telephone encounter Note* Telephone Encounter - An Bridges - 05/28/2024 11:39 AM EST Referral dated 05/23/24 N[facility] Jtlufuimbx25-79-3897 Miscellaneous Notes* Telephone Encounter - An Bridges - 05/28/2024 11:39 AM EST Referral dated 05/23/24 * Telephone Encounter - An Bridges - 05/28/2024 11:28 AM EST Referral dated 05/01/24. documented in this encounterEllis Fischel Cancer CenterZaaozyuxft10-66-7724 Telephone encounter Note* Telephone Encounter - An Brigdes - 05/28/2024 11:28 AM EST Referral dated 05/01/24. [facility] Fischel Cancer CenterOzzlqdwwpd50-28-7020 Evaluation note* Diagnosis Onset Date Resolution Status Admit Date Back pain acuteNovember 2023 11:28amContact with or suspected exposure to severe acute respiratory syndromenoneactiveJanuary 2024 2:59pm [facility] Work Phone: 1(498) 583-798111-20-2023 Evaluation note* Encounter Date Diagnosis Assessment Notes Treatment Notes Treatment Clinical Notes Apr, Polydipsia (ICD-10 - R63.1) [employer] [place] Other 10-26-2023 Evaluation note* Encounter Date Diagnosis Assessment Notes Treatment Notes Treatment Clinical Notes Mar, TMJ (temporomandibular joint dis order) (ICD-10 - M26.609) [employer] [place] Other 10-09-2023 Evaluation note* Encounter Date Diagnosis Assessment Notes Treatment Notes Treatment Clinical Notes Mar, TMJ (temporomandibular joint dis order) (ICD-10 - M26.609) [employer] [place] Other 10-06-2023 Evaluation note* Encounter Date Diagnosis Assessment Notes Treatment Notes Treatment Clinical Notes Mar, TMJ (temporomandibular joint dis order) (ICD-10 - M26.609) [employer] [place] Other 10-03-2023 Evaluation note* Encounter Date Diagnosis Assessment Notes Treatment Notes Treatment Clinical Notes Mar, TMJ (temporomandibular joint dis order) (ICD-10 - M26.609) [employer] [place] Other 09-11-2023 Hospital Discharge instructions Patient Education 03/07/2023 18:53:14 Cervical Sprain, Mjqj-ta-Pjyq Cervical Sprain A cervical sprain is also [...] Follow these instructions at home: Medicines Take iajj-mup-kweztzk and prescription medicines only as told by your doctor. Ask your doctor if the medicine prescribed to you: ?Requires you to avoid driving or using heavy machinery. ?Can cause trouble pooping (constipation). You may need to take these actions to prevent or treat trouble pooping: ?Drink enough fluid to keep your pee (urine) pale yellow. ?Take ilaw-iue-rweikyo or prescription medicines. ?Eat foods that are [...] provider. Document Revised: 02/20/2020 Document Reviewed: 02/20/2020 [employer] Patient Education 2022 [employer]. 03/07/2023 18:52:56 Temporomandibular Joint Syndrome Temporomandibular Joint [...] Do not chew gum. General instructions Take kvhd-jxc-gjwpteq and prescription medicines only as told by [...] important. Where to find more information National [place] [employer]io[employer] Research: www.nidcr.nih.gov Contact [...] provider. Document Revised: 01/24/2022 Document Reviewed: 01/24/2022 [employer] Patient Education 2022 [employer]. Follow Up Care 03/07/2023 14:45:40 With:NONE, XXXX Address: [phone] When: Unknown [facility] 08-20-2023 Evaluation note* Encounter [...] with amoxicillin and medrol dose pack. He sayshis sore throat improved, but still having neck soreness. Patient is a poor historian, but states he has had neck soreness for 6 months. No evidence of ludwigs angina, MUD ANALYSIS WELL LOGGING OPERATOR, retropharyngeal abscess, or neoplasm, as he does not have any swelling or erythema in the submental region, does not have any trismus, uvular deviation, difficultyswallowing, or weight loss. However, i do think that he needs to follow up with and establish care with pcp. Pt requests another steroid as, naproxen, ibuprofen, and aspirin does not help. I advisehim of risks vs benefits of corticosteroids. He understands and would like another course of steroids. I don't think this is an unreasonable request and will order him a medrol dose pack and cyclobenzaprine. Given strict return precautions. [employer] [place] Other 08-13-2023 Evaluation note* Encounter Date Diagnosis [...] understanding and is agreeable to treatment plan. Jan,Sinus pressure (ICD-10 - J34.89) [facility] [place] Other 07-01-2023 History general Narrative - Reported* Type Description Date Surgical History wisdom teeth removal 12/2022 [employer] [place] Other 04-29-2023 Consult note Author Wai Alfonso [facility] October 23, 2022 10:23amNote Date/TimeApril 2022 10:06[place] [address] Cardiology Consult Note Signed Patient: Cameron Teresa MR#: [id number] : 2005 Acct:[id number] Age/Sex: 17 / M Adm Date: 3 Loc: Room: [address] [place] [address] Type: ADM IN Attending Dr: Saqib Brantley DO Copies to: Saqib Brantley, NO FAMILY PHYSICIAN Wai Alfonso MD~ Cardiology HPI History of Present Illness Consult Date: 10/23/22 Reason for Consult: I been asked by the patient's primary medicine service to see Cameron in consultation for opinion and recommendations regarding ST abnormalities on ECG prior to transfer from ICU to [facility] for treatment of depression. HPI: Mr. Teresa is a 17 year old male with no known prior cardiac history but a history of depression(patient's last suicide attempt was at age 14) who was admitted to the ICU from [facility] emergency department yesterday after he presented [...] brought immediately to the emergency department here [facility] for evaluation and treatment. From a cardiac standpoint, Cameron denies any current or recent cardiac symptomatology. He denies any recent chest pain shortness of breath nausea vomiting diaphoresis lightheadedness dizziness presyncope or syncope. He statesthere is no family history of heart disease nor family history of sudden c ardiacdeath that he is aware of. He states [...] cardiac/medical risk assessment/stratification prior to transfer to [facility] for further inpatient treatment of [...] changes or abnormalities: early repolarization (normal variant) CO, pacemaker, normal Normal tracing: no change compared [...] [facility] adverse [facility] by his psychiatric caregiver for ongoing treatment ofmajor depressive disorder with suicidalideation. Code(s): R94.31 - Abnormal electrocardiogram [ECG] [EKG] Plan Thank you very much for this kind consultation and for allowing me to participate in the care of this very pleasant young man Documented By: Wai Alfonso MD 10/23/22 1005 Signed By: <Electronically signed by Wai Alfonso MD> 10/23/22 1023 [facility] Work Phone: 1(889) 506-627804-28-2023 Progress note Author Saqib Brantley [facility] October 22, 2022 6:28pmNote Date/TimeApril 2022 6:29[place] [address] Hospitalist Progress Note Signed Patient: Cameron Teresa MR#: [id number] : 2005 Acct:[id number] Age/Sex: 17 / M Adm Date: 3 Loc: Room: [address] [place] [address] Type: ADM IN Attending Dr: Saqib Brantley [...] will continue monitoring on telemetry. Appreciate poison co ntrolrecommendations. Cruciate psychiatry recommendations. Likely oneself tomorrow suicide [...] Documented By: Saqib Brantley DO 10/22/22 18 Signed By: <Electronically signed by Saqib Brantley DO> 10/22/22 1103 [facility] Work Phone: 1(542) 326-153204-28-2023 Consult note Author Steve linares [facility] October 22, 2022 10:51amNote Date/TimeApril 2022 10:51am[place] [address] Psychiatry Consult Note Signed Patient: Cameron Teresa MR#: [id number] : 2005 Acct:[id number] Age/Sex: 17 / M Adm Date: 3 Loc: Room: [address] [place] [address] Type : ADM IN Attending Dr: Saqib [...] prescribed Effexorand switched abruptly to Cymbalta. He hadtried several antidepressants in the past including Lexapro, Prozac and Zoloft but they were not effective. He said Effexor was helping with his mood that was starting to having some muscle spasmsandirritability. He said that the muscle spasms continued after stopping Effexor and now he realizes it is probably not a medication side effect. 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 He has been following up with the psychiatric nurse practitioner at [facility] and was staying in sober living. He said he was supposed to start a job at [employer] today and was working 2 years from [id number]. He reports previous psychiatric hospitalization at [facility] at the age of 14 after a [...] Appearance Clear Urine pH 8.5 Ur Specific Newberg 1.023 Urine Protein Trace H Urine Glucose [...] Color Urine Appearance Urine pH Ur Specific Newberg Urine Protein Urine Glucose (UA) Urine Ketones [...] Steve Flood MD> 10/22/22 1051 [facility] Work Phone: 1([phone]) 117-402904-27-2023 History and physical note Author Saqib Brantley [facility] October 21, 2022 8:50pmNote Date/TimeApril 2022 8:44pm[place] [address] Hospitalist H&P Signed Patient: Cameron Teresa MR#: [id number] : 2005 Acct:[id number] Age/Sex: 17 / M Adm Date: 3 Loc: Room: [address] [place] [address] Type: ADM IN Attending Dr: Saqib Brantley DO Copies to: Saqib Brantley DO NO FAMILY PHYSICIAN~ HPI DATE OF EXAMINATION: 10/21/22 CHIEF COMPLAINT: Overdose HISTORY OF PRESENT ILLNESS: This patient is a 17-year-old male with a history of depression. He presents tot emergency department after a reported suicide attempt. He admits to taking approximately 20 tablets of duloxetine 20mg in approximately 20 tablets of venlafaxine extended release 75 mg. Reports he had not attempted suicide since age 14 up until now. His work-up in the ER revealed relatively stable vital signs witha temperature of 97.9 ?F, heart rate of 93/min, respirations 16/min, blood pressure hypertensive at160/80, 100% oxygen saturation on room air. His work-up reveals leukocytosis at 11.2, predominantlyneutrophilic. Chemistries reveal a borderline anion gap metabolic acidosis with a bicarbonate levelof 20.9. Mildly low magnesium at 1.8. LFTs and renal function within normal limits. Urinalysis shows trace protein and 1+ ketones. Salicylates undetectable,trace acetaminophen noted on tox screen, noother drugs noted on UDS. He was subsequently [...] % (Auto) 14.0 % (.) 10/21/22 18:16 Dawson % (Auto) 6.1 % (.) 10/21/22 18:16 Eos % (Auto) 0.4 % (.) 10/21/22 18:16 Baso % (Auto) 0.3 % (.) 10/21/22 18:16 Nucleat RBC Rel Count 0.1 /100 WBC (0-0.5) 10/21/22 18:16 Neut # (Auto) 8.9 x10E3/uL (1.8-7.7) H 10/21/22 18:16 Lymph # (Auto) 1.6 x10E3/uL (1.00-4.8) 10/21/22 18:16 Dawson # (Auto) 0.7 x10E3/uL (0.0-0.8) 10/21/22 18:16 [...] pH 8.5 (5.0-9.0) 10/21/22 18:34 Ur Specific Newberg 1.023 (1.001-1.030) 10/21/22 18:34 Urine Protein Trace [...] <Electronically signed by Saqib Brantley DO> 10/21/222049 [facility] Work Phone: 1(856) 939-292304-27-2023 History and physical note Author Saqib Brantley [facility] October 21, 2022 8:50pmNote Date/TimeApril 2022 8:44pmOrma[place] [address] Hospitalist H&P Signed Patient: Cameron Teresa MR#: [id number] : 2005 Acct:[id number] Age/Sex: 17 / M Adm Date: 3 Loc: Room: [address] [place] [address] Type: ADM IN Attending Dr: Saqib Brantley DO Copies to: Saqib Brantley DO NO FAMILY PHYSICIAN~ HPI DATE OF EXAMINATION: 10/21/22 CHIEF COMPLAINT: Overdose HISTORY OF PRESENT ILLNESS: This patient is a 17-year-old male with a history of depression. He presents tot emergency department after a reported suicide attempt. He admits to taking approximately 20 tablets of duloxetine 20mg in approximately 20 tablets of venlafaxine extended release 75 mg. Reports he had not attempted suicide since age 14 up until now. His work-up in the ER revealed relatively stable vital signs witha temperature of 97.9 ?F, heart rate of 93/min, respirations 16/min, blood pressure hypertensive at160/80, 100% oxygen saturation on room air. His work-up reveals leukocytosis at 11.2, predominantlyneutrophilic. Chemistries reveal a borderline anion gap metabolic acidosis with a bicarbonate levelof 20.9. Mildly low magnesium at 1.8. LFTs and renal function within normal limits. Urinalysis shows trace protein and 1+ ketones. Salicylates undetectable,trace acetaminophen noted on tox screen, noother drugs noted on UDS. He was subsequently [...] % (Auto) 14.0 % (.) 10/21/22 18:16 Dawson % (Auto) 6.1 % (.) 10/21/22 18:16 Eos % (Auto) 0.4 % (.) 10/21/22 18:16 Baso % (Auto) 0.3 % (.) 10/21/22 18:16 Nucleat RBC Rel Count 0.1 /100 WBC (0-0.5) 10/21/22 18:16 Neut # (Auto) 8.9 x10E3/uL (1.8-7.7) H 10/21/22 18:16 Lymph # (Auto) 1.6 x10E3/uL (1.00-4.8) 10/21/22 18:16 Dawson # (Auto) 0.7 x10E3/uL (0.0-0.8) 10/21/22 18:16 [...] pH 8.5 (5.0-9.0) 10/21/22 18:34 Ur Specific Newberg 1.023 (1.001-1.030) 10/21/22 18:34 Urine Protein Trace [...] <Electronically signed by Saqib Brantley DO> 10/21/222049 [facility] Work Phone: 1(212) 964-178302-06-2023 Hospital Discharge instructions Patient Transfer Information from [...] Primary Care Provider : PCP, Other (PCP) ([facility] 8404) - Medical [facility] 03-01-2022 NoteHNO ID: [id number] Author: Aleksandra Ross MD Service: ? Author [...] radial pulses 2+ (more content not included)... [facility]02-01-2022 NoteHNO ID: [id number] Author: Aleksandra Ross MD Service: ? Author Type: Physician Type: Progress Notes Filed: 08/02/2021 9:41 PM Note Text: INITIAL OUTPATIENT VISIT PEDIATRIC RHEUMATOLOGY SERVICE DATE: 07/28/2021 REFERRING PHYSICIAN: Jaxson Starks [address] [place] [address] PRIMARY CARE PHYSICIAN: Jaxson Starks DO ACCOMPANIED [...] STUDIES: I have perso (more content not included)...[facility]01-21-2022 NoteHNO ID: [id number] Author: Jaxson Starks, DO Service: ? Author Type: Physician Type: Progress Notes Filed: 07/17/2021 7:35 AM Note Text: Patient overdue for well-child visits and/or vaccines. Please call to update PCP if needed and/or schedule an appointment.[facility] 07-08-2021 NoteHNO ID: [id number] Author: Jaxson Starks, DO Service: ? Author [...] SALINE) 0.65 % nasal spray Use 1 Rodney in the nose as needed. albuterol HFA [...] Teresa DATE: July 08, 2021 TIME: 1:05 [facility]11-19-2021 NoteHNO ID: [id number] Author: Jaxson Starks DO Service: ? Author [...] Teresa DATE: May 15, 2021 TIME: 12:[address] [facility] complaint+Reason for visit Narrative* Chief Complaint discuss referral to psych Reason for Visit Depression PTSD (post-traumatic stress disorder) [facility] Work Phone: chief complaint+Reason for visit Narrative* Chief Complaint discuss referral to psych depressionReason for VisitDepression PTSD (post-traumatic stress disorder) [facility] Work Phone: chief complaint+Reason for visit Narrative* Chief Complaint discuss referral to psych depression anxietyReason for VisitDepression PTSD (post-traumatic stress disorder) Restless leg Panic attack due to exceptional stress [facility] Work Phone: chief complaint+Reason for visit Narrative* Chief Complaint discuss referral to psych depression anxiety overdoseReason for VisitDepression PTSD (post-traumatic stress disorder) Restless leg Panic attack due to exceptional stress [facility] Work Phone: Clinical Notes S Consult note Author Chandler Flood [facility] October 22, 2022 10:51amNote Date/TimeApril 2022 10:51am[place] [address] Psychiatry Consult Note Signed Patient: Cameron Teresa MR#: [id number] : 2005 Acct:[id number] Age/Sex: 17 / M Adm Date: 3 Loc: Room: [address] [place] [address] Type : ADM IN Attending Dr: Saqib [...] prescribed Effexorand switched abruptly to Cymbalta. He hadtried several antidepressants in the past including Lexapro, Prozac and Zoloft but they were not effective. He said Effexor was helping with his mood that was starting to having some muscle spasmsandirritability. He said that the muscle spasms continued after stopping Effexor and now he realizes it is probably not a medication side effect. 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 He has been following up with the psychiatric nurse practitioner at [facility] and was staying in sober living. He said he was supposed to start a job at [employer] today and was working 2 years from [employer]. He reports previous psychiatric hospitalization at [facility] at the age of 14 after a [...] Appearance Clear Urine pH 8.5 Ur Specific Newberg 1.023 Urine Protein Trace H Urine Glucose [...] Color Urine Appearance Urine pH Ur Specific Newberg Urine Protein Urine Glucose (UA) Urine Ketones [...] signed by Steve Flood MD> 10/22/22 1051 [facility] Work Phone: Consult note Author Wai Alfonso [facility] October 23, 2022 10:23amNote Date/TimeApril 2022 10:06[place] [address] Cardiology Consult Note Signed Patient: Cameron Teresa MR#: [id number] : 2005 Acct:[id number] Age/Sex: 17 / M Adm Date: 3 Loc: Room: [address] [place] [address] Type: ADM IN Attending Dr: Saqib Brantley DO Copies to: Saqib Brantley, DO NO FAMILY PHYSICIAN Wai Alfonso MD~ Cardiology HPI History of Present Illness Consult Date: 10/23/22 Reason for Consult: I been asked by the patient's primary medicine service to see Cameron in consultation for opinion and recommendations regarding ST abnormalities on ECG prior to transfer from ICU to [facility] for treatment of depression. HPI: Mr. Teresa is a 17 year old male with no known prior cardiac history but a history of depression(patient's last suicide attempt was at age 14) who was admitted to the ICU from [facility] emergency department yesterday after he presented [...] brought immediately to the emergency department here [facility] for evaluation and treatment. From a cardiac standpoint, Cameron denies any current or recent cardiac symptomatology. He denies any recent chest pain shortness of breath nausea vomiting diaphoresis lightheadedness dizziness presyncope or syncope. He statesthere is no family history of heart disease nor family history of sudden c ardiacdeath that he is aware of. He states [...] cardiac/medical risk assessment/stratification prior to transfer to [facility] for further inpatient treatment of [...] changes or abnormalities: early repolarization (normal variant) CO, pacemaker, normal Normal tracing: no change compared [...] for ongoing treatment ofmajor depressive disorder with suicidalideation. Code(s): R94.31 - Abnormal electrocardiogram [ECG] [EKG] Plan Thank you very much for this kind consultation and for allowing me to participate in the care of this very pleasant young man Documented By: Wai Alfonso MD 10/23/22 1005 Signed By: <Electronically signed by Wai Alfonso MD> 10/23/22 1023 [facility] Work Phone: Discharge summary Author Saqib Brantley [facility] October 23, 2022 1:05pmNote Date/TimeApril 2022 1:05pmOr[place] [address] Discharge Summary Signed Patient: Cameron Teresa MR#: [id number] : 2005 Acct:[id number] Age/Sex: 17 / M Adm Date: 3 Loc: Room: [address] [place] [address]: Saqib Brantley DO Copies to: [...] 00 Signed By: <Electronically signed by Saqib Brantley, DO> 10/23/22 1305 [facility] Work Phone: Evaluation + Plan note [facility] Evaluation + Plan note No data available for this section [facility] Evaluation noteNo assessment information available [facility] Work Phone: Evaluation note* Diagnosis Onset Date Resolution Status Abnormal electrocardiogram finding acuteMajor depressive disorder, recurrent, moderateacuteMedication side effects acuteSuicide attempt by multiple drug overdoseacute [facility] Work Phone: Evaluation noteNo InformationNortBarix Clinics of [place] K[facility] Other Evaluation note* Diagnosis Onset Date Resolution Status Depression acutePTSD (post-traumatic stress disorder)acute [facility] Work Phone: Evaluation note* Diagnosis Onset Date Resolution Status Depression acutePTSD (post-traumatic stress disorder)acuteRestless legacutePanic attack due to exceptional stressacute [facility] Work Phone: Evaluation note* Diagnosis Onset Date Resolution Status Insomnia acutePTSD (post-traumatic stress disorder)acuteSubstance abuse in remissionacute [facility] Work Phone: History general Narrative - Reported* Type Description Date Medical History Anxiety Medical HistoryPTSD (post-traumatic stress disorder)Medical HistoryDepression Medical HistoryTMJ (temporomandibular joint disorder)Medical HistorySubstance abuse in remissionSurgical HistoryWisdom teeth removal12/2022 [facility] KIDOZ Other History of Present illness Narrative* The [...] relationships are appropriate. Eats meals with family. Zgayze-nhxgs-otmceoz interactions are normal. Has a supportive adult [...] yo male presents as new pt to [facility] care * Previous PCP: Dr. 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 [employer] * Pt does not exercise/workout * Pt [...] [facility] Work Phone: [facility] Discharge instructions Additional Instructions Continue current medication Increase oral fluids Change positions carefully while you are dizzy Follow-up with your provider who prescribes the affects your Return to the ER for worsening headache vomiting high fever or any other concerns[facility] Work Phone: Hospital Discharge instructions Additional Instructions Inpatient Psychiatry to manage care: - Full code - Maintain seizure and suicide precautions per protocol -[facility] Work Phone: Hospital Discharge instructionsAmbulatory Orders* Referral to Psychiatry Location: None Selected [facility] Work Phone: Hospital Discharge instructions Additional Instructions Please find help. You have experience with sobriety, so you know that you can get clean. You cannot be your own counselor, though. We are happy to help if you need us. You are too young to , but you take that risk every time you use.[facility] Work Phone: Instructions* Name Dates Details Instructions not documented [facility] Work Phone: progress note Author Saqib Brantley [facility] October 22, 2022 6:28pmNote Date/TimeApril 2022 6:29pm[place] [address] Hospitalist Progress Note Signed Patient: Cameron Teresa MR#: [id number] : 2005 Acct:[id number] Age/Sex: 17 / M Adm Date: 3 Loc: Room: [address] [place] [address] Type: ADM IN Attending Dr: Saqib Brantley [...] will continue monitoring on telemetry. Appreciate poison co ntrolrecommendations. Cruciate psychiatry recommendations. Likely oneself tomorrow suicide [...] signed by Saqib Brantley, > 10/22/22 1828 [facility] Work Phone: Progress note No data available for this section [facility] Reason for referral (narrative)No reason for referral information availableBarberton Citizens Hospital Work Phone: Summary Purpose Family History Mother Name Dates Details Family history of asthma(V17 .5, Z82.5) Status:ActiveFamily history of Allergic rhinitis, seasonal(477.9, J30.2) Status:ActiveFamily history of Anxiety(300.00, F41.9) Status:Active Unknown Family Member Name Dates Details Family history of asthma: Mo ther(V17.5, Z82.5) Status:ActiveAllergic rhinitis, seasonal: Mother Status:ActiveAnxiety: Mother Status:Active Unknown Family Member Name Dates Details Family history of asthma: Mo ther(V17.5, Z82.5) Status:ActiveAllergic rhinitis, seasonal: Mother Status:ActiveAnxiety: Mother Status:Active Unknown Family Member Name Dates Details Family history of asthma: Mo ther(V17.5, Z82.5) Status:ActiveAllergic rhinitis, seasonal: Mother Status:ActiveAnxiety: Mother Status:Active Relationship Condition Age at Onset Recorded Date/T sameer grandparent Hypertension Unknown Malignant neoplasmUnknownNot SpecifiedDepressionUnknownAnxietyUnknownBorderline personality disorderUnknown Relationship Condition Age at Onset Recorded Date/T sameer grandparent Hypertension Unknown Malignant neoplasmUnknownNot SpecifiedDepressionUnknownAnxietyUnknownBorderline personality disorderUnknownChronic mental illnessUnknown Relationship Condition Age at Onset Recorded Date/T sameer grandparent Hypertension Unknown Malignant neoplasmUnknownmotherDepressionUnknownAnxietyUnknownBorderline personality disorderUnknownChronic mental illnessUnknown Advance Directives Advance Directive Response Recorded Date/ Time Advance Directives No September 27 2:57pm Advance Directive Response Recorded Date/ Time Advance Directives No September 27 1:57pm Hospital Course Note HNO ID: [id number] Author: Jules Munoz Service: Pediatric Psychiatry Author [...] currently in residential substance use treatment at [facility] with several previous psychiatric admissions ([facility] in January 2020 and in twice in 2018, and [facility] in June 2019) admitted to Inpatient Psychiatry for SI with multiple plans (running into traffic, ODing on OTC medications, or jumping off ledge at [facility]). 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 Starks at [facility] in [place]. * Pt reports that for the past [...] Complaint dizzy, nausea E55.9 Z01.89 Stiff neck,headache ODReason for VisitAbnormal electrocardiogram finding Major depressive disorder, recurrent, moderate Medication side effects Suicide attempt by multiple drug overdose Chief Complaint Sore throat Chief Complaint J02.9 jaw, neck and head pain hx of TMJ Chief Complaint jaw, neck and head p ain hx of TMJ Chief Complaint Sleep issues Reason for Visit Insomnia PTSD (post-traumatic stress disorder) Substance abuse in remission Chief Complaint Sleep issues Back PainReason for VisitInsomnia PTSD (post-traumatic stress disorder) Substance abuse in remission Chief Complaint Admit Date Back Pain May 01, 2024 1 1:28am Amb Documentation May 14, 2024 10:47am Cough, congestion July 17, 2024 2 :59pm Reason for Visit Admit Date Back pain May 01, 2024 1 1:28am Contact with or suspected ex posure to severe acute respiratory syndrome July 17, 2024 2:59pm Chief Complaint Admit Date wants EKG, labs ordered, chest pains Sep 2024 1:59pm Chief Complaint Admit Date wants EKG, labs ordered, chest pains Sep 2024 1:59pm bilateral eye irritation, redness, disch arge April 05, 2025 1:21pm Reason for Visit Admit Date Acid reflux March 26, 2025 1:59pm Chest pain March 26, 2025 1:59pm Constipation March 26, 2025 1:59pm Methamphetamine abuse March 26 1:59pm PTSD (post-traumatic stress disorder) Se ptember 2024 1:59pm [place] [facility] April 05, 2025 1 :21pm Reason for Referral Reason *Waiting for appt Please call pt to establish care with primary doctor and to be seen for his chronic neck pain Diagnosis 1 Lymph node enlargeme nt (R59.9) Referral Organization [facility] Urgent Care Sa jaqueline Referring Provider First Name Nazario Referring Provider Last Name Babatunde Referring Provider Specialty Nurse Vamshi michelle Referred Organization [facility] Referred Provider Nayla Dorsey Referred Address [address],[facility], [place], [place],[address] Referred Provider Specialty Nurse Naye dsouza Referral [...] section and content) DATE CREATED AUTHOR 06/10/2020 [facility] DATE CREATED AUTHOR AUTHOR'S ORGANIZ ATION 09/29/2020 [facility] DATE CREATED AUTHOR AUTHOR'S ORGANIZ ATION 09/29/2020 [facility] [facility] DATE CREATED AUTHOR AUTHOR'S ORGANIZ ATION 10/31/2020 [facility] DATE CREATED AUTHOR AUTHOR'S ORGANIZ ATION 11/01/2020 [facility] DATE CREATED AUTHOR AUTHOR'S ORGANIZ ATION 11/23/2020 [facility] DATE CREATED AUTHOR AUTHOR'S ORGANIZ ATION 05/18/2021 [facility] DATE CREATED AUTHOR AUTHOR'S ORGANIZ ATION 09/16/2021 [facility] DATE CREATED AUTHOR AUTHOR'S ORGANIZ ATION 08/25/2022 [facility] DATE CREATED AUTHOR AUTHOR'S ORGANIZ ATION 10/28/2022 [facility] DATE CREATED AUTHOR AUTHOR'S ORGANIZ ATION 04/08/2023 [facility] DATE CREATED AUTHOR AUTHOR'S ORGANIZ ATION 10/30/2023 [facility] DATE CREATED AUTHOR AUTHOR'S ORGANIZ ATION 07/26/[address] [facility] Goals (unrecognized section and content) Goals may be documented in an alternate sectionGoals may be documented in an alternate sectionNo InformationGoals may be documented in an alternate sectionNo InformationNo InformationNo InformationGoals may be documented in an alternate section No data available for this section No InformationNo InformationNo InformationNo InformationNo InformationNo InformationGoals may [...] Care Provider Active Start: January 17, 2024 MAX Gamez-Elias ProviderActiveStart: January 17, 2024 Team Status: Active Member Role Status Dates PHYSICIAN NO FAMILY Primary Care Provider Active Team Status: Inactive Member Role Status Dates PHYSICIAN NO FAMILY Primary Care Provider Active ALFONSO Bill-León ProviderActive Team Status: Inactive Member Role Status Dates PHYSICIAN NO FAMILY Primary Care Provider Active Nicole Jarrett NP-CAttending ProviderActive Team Status: Inactive Member Role Status Dates PHYSICIAN NO FAMILY Primary Care Provider Active Gale Villavicencio ProviderActive Team Status: Active Member Role Status Dates PHYSICIAN NO FAMILY Primary Care Provider Active Adriana Valadez ProviderActiveMichael Frings , DOAdmit Provider, Attending ProviderActive Team Status: Inactive Member Role Status Dates PHYSICIAN NO FAMILY Primary Care Provider Active Adriana Valadez ProviderActiveMichael Frings , DOAdmit Provider, Attending ProviderActiveMojuan diego Carlisle MDOther ProviderActiveSaraskye Shahid , APRNOther ProviderActiveChandler Flood MDOther ProviderActive Nicholas Frias MDOther ProviderActiveAmerica Castro RNOther ProviderActive Ginger Cid , DOOther ProviderActiveRegine Bingham MDOther ProviderActive Iglesia Milan MDOther ProviderActiveKellee Lambert MDOther ProviderActiveErnie Jimenez MDOther ProviderActiveDonna Alayna Smith , APRNOther ProviderActiveElizabeth Serrato MDOther ProviderActiveMojuan diego Ibnaez MDOther ProviderActiveLizette Vega MDOther ProviderActiveCarol Rik Wick , VP [employer]-BCOther ProviderActiveSoledad Perez MDOther ProviderActive Team Status: Inactive Member Role Status Dates Ana Laura Lacey APRN Attending Provider Active Team Status: Inactive Member Role Status Dates Ana Laura Lacey APRN Attending Provider Active PHYSICIAN NO FAMILYPrimary Care ProviderActive Team Status: Inactive Member Role Status Dates PHYSICIAN NO FAMILY Primary Care Provider Active Ayleen Alba ProviderActive Team Status: Inactive Member Role Status Dates [...] Start: November 14, 2023 End: November 14, 2023Nazario Shaw Jr, MDEmerhelena regional medical center ProviderActiveStart: November 14, 2023 End: November 14, 2023 Team Status: Active Member Role Status Dates Nayla Dorsey APRN Primary Care Provider Active Start: May 14, 2024 Miguel Baron ProviderActiveStart: May 14, 2024 Team Status: Active Member Role Status Dates Nayla Dorsey APRN Primary Care Provider Active Start: May 14, 2024 Molina Harman ProviderActiveStart: May 14, 2024 Team Status: Active Member Role Status Dates Nayla Dorsey APRN Primary Care Provider Active Start: May 14, 2024 NARESH RicoAAtamaya ProviderActiveStart: May 14, 2024 Team Status: Inactive Member Role Status Dates Nayla Dorsey APRN Primary Care Provider Active Start: July 17, 2024 End: July 17, 2024Ayleen Ellis ProviderActiveStart: July 17, 2024 End: July 17, 2024 Team Status: Inactive Member Role Status Dates Nayla Dorsey APRN Primary Care Provider Active Start: March 26, 2025 End: March 26, 2025Ayleen Alba ProviderActiveStart: March 26, 2025 End: March 26, 2025 Team Status: Active Member Role Status Dates Nayla Dorsey APRN Primary Care Provider Active Start: March 28, 2025 Ayleen Alba ProviderActiveStart: March 28, 2025 Team Status: Inactive Member Role Status Dates Nayla Dorsey APRN Primary Care Provider Active Start: April 05, 2025 End: April 05, 2025Tika Nieves APRN [employer] INSTALLER-CAttending Provider ActiveStart: April 05, 2025 End: April 05, 2025 REASON FOR VISIT (unrecogniz ed section and content) ReasonOnset DateCommentsPT Referral / Sorqhzgmtrxk68/02/2024Tried to contact to verify coverage and offer scheduling PT angelina Porras.fu05/29/2024ontacted and informed receiving PT referral; questioned coverage and he noted he does have insurance. He said he had just gotten X-rays and would like to hold off till they are read. Then he said hewill contact to inform of coverage; I then can submit and then schedule out.FU x24Contacted and noted I was calling back to [...] BE BASED ON THE PRIMARY CLINICAL RECORDS. [employer] provides no warranty or guarantee of the accuracy or completeness of information in this document.
--- OUTSIDE RECORDS SUMMARY | 2025-06-26 20:58 | XMS_ITS | Patient Health Record ---
Author Organization [facility] Address [address] [place] [address] Care Team Providers Care Cloth Tearer Name Role Phone Nato Lawson Primary Care Provider ViolaMeme fernández Unavailable [phone] Pacheco Kerry Unavailable [phone] Allergies No Known Allergies Reason For Referral [...] hurting yourself in some wayNot at allTotal Ezekt92Ahlzxyaohhyds Moderate DepressionDrug/Alcohol:Social InfoQuestionAnswerNotesAUDIT-C (Standard) Did you have a drink containing alcohol in the past year?MqLsfwxy3Jrgdjupgfgbpov NegativeTobacco Use:Social InfoQuestionAnswerNotesTobacco Control (Standard) Tobacco use:Uses tobacco in other formsAdditional Findings: Tobacco userUser of moist powdered tobacco Problems Problem Type SNOMED Code ICD Code Onset Dates Problem Status W/U Status Risk Notes Problem Insomnia (000636026) Insomnia, unspecifie d type (G47.00) ActiveconfirmedProblemEpisodic mood disorder (29647394933210)Episodic mood disorder (F39)ActiveconfirmedProblemAttention deficit hyperactivity disorder (867904079)Attention deficit hyperactivity disorder (ADHD), combined type (F90.2)Activeconfirmed Vital Signs Heart Rate 118 /min 12/19/2024 Rkmwqlchnva79.4 degrees Mejiiuzunn99/05/0890Vkhedtwg55 %12/19/2024lood pressure mm Hg12/19/20248029Qxwqne01 in12/19/2024lood pressure riztfsnq913 mm Hg 12/19/20241125Tlkpjj885.8 lbs12/19/2024BMI23.55 kg/m212/19/2024 Encounters Encounter Location Date Provider Diagnosis [facility] [address] [place] [address] 07/11/2024 [facility] [place] [address]/Ki SoviakEpisodic mood disorder [address] [place] [address]/08/2024Ki SoviakAttention deficit hyperactivity disorder (ADHD), combined type F90.2FDerek [place] [address] [place] [address]/[facility] [place] [address]/[facility] [place] [address]/09/2024Ki SoviakAttention deficit hyperactivity disorder (ADHD), combined type F90.2FDe[facility] [place] [address]/[facility] [place] [address]/Ki SoviakEpisodic mood disorder [address] [place] [address]/08/2024 Meme SlingwineAttention deficit hyperactivity disorder (ADHD), combined type F90.2Fmer[facility] [address] [place] [address] 10/17/2024[facility] [place] [address]/10/2024Ki SoviakAttention deficit hyperactivity disorder (ADHD), combined type F90.2Fmercyone [facility] [address] [place] [address]/05/2025Kip SoviakAttention deficit hyperactivity disorder (ADHD), combined type F90.2Fmercy[facility] [address] [place] [address]/[facility] [address] [place] [address]/02/2025Kip SoviakAttention deficit hyperactivity disorder (ADHD), combined type F90.2Fmercyone [facility] [address] [place] [address]/Kip SoviakAttention deficit hyperactivity disorder (ADHD), combined type F90.2FDe[facility]19[facility] [address]/[facility] [place] [address]/10/2024[facility]y HyltonUC HEALTH [address] [place] [address]/10/2024Kip SoviakInsomnia, unspecified type G47.00 ; Episodic mood disorder F39 and Attention deficit hyperactivity disorder (ADHD), combined type F90.2F [address] [place] [address] 11/21/2024Kip SoviakEpisodic mood disorder F39 ; Attention deficit hyperactivity disorder (ADHD), combined type F90.2 and Insomnia, unspecified type G47.00[facility] [address] [place] [address]/Kip SoviakEpisodic mood disorder F39FHS [address] [place] [address]/Kip SoviakEpisodic mood disorder F39 ; Insomnia, unspecified type G47.00 and Attention deficit hyperactivity disorder (ADHD), combined type F90.2[facility] [place] [address] [place] [address]/02/2025Kip SoviakEpisodic mood disorder F39 and Attention deficit hyperactivity disorder (ADHD), combined type F90.2FCavalier County Memorial HospitalKjyyswr[address] [place] [address]/12/2024Kip Soviak Episodic mood disorder F39 ; Insomnia, [...] consented to the start/continuation of the treatment. 01/16/2025Insomnia, unspecified type (ICD-10 - G47.00) Informed consent [...] to the patient/guardian. . OARRS reviewed . 12/03/2024ttention deficit hyperactivity disorder (ADHD), combined type (ICD-10 - F90.2)12/14/2024ttention deficit hyperactivity disorder (ADHD), combined type (ICD-10 - F90.2)09/24/2024Episodic mood disorder (ICD-10 - F39)09/27/2024 Attention deficit hyperactivity disorder (ADHD), combined type (ICD-10 - F90.2) 10/03/2024Episodic mood disorder (ICD-10 - F39) Patient will [...] consented to the start/continuation of the treatment. 10/03/2024ttention deficit hyperactivity disorder (ADHD), combined type (ICD-10 [...] ideation, intent or plan in session. . 10/29/2024ttention deficit hyperactivity disorder (ADHD), combined type (ICD-10 - F90.2)11/05/2024ttention deficit hyperactivity disorder (ADHD), combined type (ICD-10 - F90.2)07/03/2024Insomnia, unspecified type (ICD-10 - G47.00) Informed consent [...] consented to the start/continuation of the treatment. 07/24/2024Episodic mood disorder (ICD-10 - F39)07/30/2024ttention deficit hyperactivity disorder (ADHD), combined type (ICD-10 - F90.2)08/28/2024ttention deficit hyperactivity disorder (ADHD), combined type (ICD-10 - F90.2)08/29/2024 Insomnia, unspecified type (ICD-10 - G47.00)Increase mirtazapine to 30 mg for increased sleep hygiene.08/29/2024Episodic mood disorder (ICD-10 - F39) [facility] provided the patient to trial for 30 [...] ideation, intent or plan in session. . 5Attention deficit hyperactivity disorder (ADHD), combined type [...] contact information was provided to the patient/guardian. 01/16/2025ttention deficit hyperactivity disorder (ADHD), combined type [...] [place] [address] [place] [address] [id number] BRII JANIEMARKtirso - patient is the ehzwomb11H [facility] [place] MedicaidPO [address] [place] [phone] [id number] - patient is the [id number] [facility] CenterPO [address] [place] [phone] [id number] - patient is the [id number] PrimaryPO [address] [place] [id number], JANIEMARKtirso - patient is the [id number] Medical (General) History Medical History History ICD Code TMJ Surgical History Surgery Date(Month/Year) [facility] Hospitalization History Reason Date(Month/Year) psych x6 overdose/poisoning from his meds
--- OUTSIDE RECORDS SUMMARY | 2025-06-26 20:58 | XMS_ITS | Clinical Summary ---
Author Organization [facility] Address [address] [place] [address] Care Team Providers Care Nozzle And Sleeve Worker Name Role Phone Unavailable Primary Care Provider Unavailabl e Social History Tobacco UseTypesPacks/DayYears UsedDateSmoking Tobacco: Never AssessedSex and Gender InformationValueDate RecordedSex Assigned at BirthNot on fileLegal Sex Male05/28/2024 11:13 AM ESTGender IdentityNot on fileSexual OrientationNot on file Plan of Treatment Not on file
== END 2025-06-26 21:15 | disposition home or self-care (01) ==
PROVIDERS: Emergency Provider Emergency Medicine; PCP Nurse Practitioner Family
DX: S40.022A Contusion of left upper arm, initial encounter (principal); S40.021A Contusion of right upper arm, initial encounter; X58.XXXA Exposure to other specified factors, initial encounter; F15.90 Other stimulant use, unspecified, uncomplicated
CPT/HCPCS: 87804; 99283